=== PATIENT | female | born 1940 | race Caucasian/White ===

== ENCOUNTER → 2016-11-29 | Outpatient (CLI) | payer MEDICARE ==
[~2016-11-29] MED LIST: ACET-461 PO; ALBU8.5H2 INH; ASP325TEC PO; FLUC200T PO; FLUT1DIS28 IH; HYDR118S10 PO; IBUP-30 PO; LEVO150T6 PO; LEVO200T30 PO; LISI1TAB10 PO; LORA1TAB PO; LRZ1T PO; MELO-198 PO; METR500T PO; MULT-856 PO; NAPR220C11 PO; NAPR220T76 PO; PRAV80TA2 PO; RT-ALBUINH IH; TRAM50TA2 PO; Tramadol Hcl PO
--- NOTE | 2016-11-29 16:17 | Diagnostic Imaging Report ---
INDICATION: Cough, wheezing, and dyspnea. DISCUSSION: Two views of the chest were obtained, comparison 07/13/2014. No adverse interval change. The heart and lungs remain normal. Age-related degenerative changes are present throughout the thoracic spine. IMPRESSION: 1. Negative chest. Dictated by: Dictated on workstation # [id number]
== END ==
LOC: RAD 15:30
PROVIDERS: ATTEND Nurse Practitioner Family
DX: R05 Cough (principal); R06.09 Other forms of dyspnea
CPT/HCPCS: 71020

== ENCOUNTER → 2017-05-10 | Outpatient (CLI) | payer MEDICARE, OTHER ==
--- NOTE | 2017-05-10 14:35 | Diagnostic Imaging Report ---
INDICATION: Right leg edema. Right leg venous Doppler study was performed in the routine fashion with color flow Doppler and waveform analysis. FINDINGS: The right common femoral vein, superficial femoral vein, popliteal vein and visualized portion of the tibial veins show normal compressibility and venous flow patterns. There is normal augmentation. IMPRESSION: No evidence of deep vein thrombosis of the major veins of the right leg. Dictated by: Dictated on workstation # [id number]
== END ==
LOC: RAD 13:38
PROVIDERS: ATTEND Nurse Practitioner Family
DX: R22.41 Localized swelling, mass and lump, right lower limb (principal)

== ENCOUNTER → 2017-12-26 | Outpatient (CLI) | payer MEDICARE, OTHER ==
--- NOTE | 2017-12-26 12:56 | Diagnostic Imaging Report ---
INDICATION: Routine screening. COMPARISON: 04/13/2016 and 02/19/2014. TECHNIQUE: Screening digital mammography was performed bilaterally with a Computer Aided Detection (CAD) system. FINDINGS: Scattered fibroglandular densities are identified bilaterally. Vascular and parenchymal calcifications are seen bilaterally. No dominant mass or malignant appearing microcalcifications are seen. The axillae are unremarkable. IMPRESSION: No mammographic features suspicious for malignancy are identified. ACR BI-RADS Category 2: Benign findings. Result letter will be mailed to the patient. Note: At least 10% of breast cancer is not imaged by mammography. Dictated by: Dictated on workstation # [id number]
== END ==
LOC: RAD 10:17
PROVIDERS: ATTEND Nurse Practitioner Family
DX: Z12.31 Encounter for screening mammogram for malignant neoplasm of breast (principal)
CPT/HCPCS: 77067

== ENCOUNTER 2018-12-13 12:44 | Outpatient (RCR) | payer MEDICARE, OTHER | END 2019-01-11 13:24 | disposition home or self-care (01) | PROVIDERS: ATTEND Nurse Practitioner Family | DX: M54.5 Low back pain (principal) ==

== ENCOUNTER 2020-02-18 05:24 | Observation (INO) | payer MEDICARE ==
[~2020-02-18] VITALS: Ht 167.7 cm; Wt 95.7 kg
[2020-02-18] MEDS ORDERED: ONDANSETRON 4 MG/2 ML (SDV) Z0FRAN IVP ONE (05:45)
[2020-02-18] MEDS ORDERED: ASPIRIN 81 MG CHEW (CHILDREN'S ASA) PO ONE (05:45)
--- NOTE | 2020-02-18 05:53 | ED Back Pain ---
General Chief Complaint: Abdominal/GI Problems Stated Complaint: NAUSEA Source of Information: Patient Exam Limitations: No Limitations (DANIELLE CRABTREE) History of Present Illness Date Seen by Provider: Feb 18, 2020 Time Seen by Provider: 05:37 Initial Comments The patient presents to the ER by private conveyance from home with chief complaint that she woke up at 2 in the morning with nausea. She took a tramadol for her pain in her back which made it better. She says she has a appointment today with a surgeon to have an abscess cut out on her back. She states that it is on her right middle back and that's what caused her pain. She does not have anything for nausea. She denies any fevers chills cough or shortness of breath. She follows with Dr. Finn. She was asking the door publishing director staff if she can drop off her medicines and have them refilled and she would come by later to pick him up. She does not remember the name of the surgeon only that she had an appointment at 1 in the afternoon here. She is afraid she would not make it to that appointment because of the nausea. (DANIELLE CRABTREE) Allergies and Home Medications Allergies Coded Allergies: No Known Drug Allergies (Unverified , 04/26/11) Home Medications Acetaminophen 500 Mg Tablet, 1,000 MG PO BID PRN for PAIN, (Reported) TAKES 2 (500MG) TABLETS Albuterol Sulfate 8.5 Gm Aer.w.adap, 2 PUFF INH Q6H PRN for SHORTNESS OF BREATH, (Reported) Ibuprofen 200 Mg Tablet, 800 MG PO BID PRN for PAIN, (Reported) TAKES 4 (200MG) TABLETS Levothyroxine Sodium 150 Mcg Tablet, 200 MCG PO DAILY Prescribed by: EKATERINA REIS on 07/16/14 0851 Lorazepam 1 Mg Tab, 1 MG PO DAILY PRN for ANXIETY, (Reported) Lorazepam 1 Mg Tab, 2 MG PO HS, (Reported) TAKES 2 (1MG) TABLETS AT BEDTIME Tramadol Hcl 50 Mg Tab, 50 MG PO Q4H PRN for PAIN, (Reported) [Tramadol Hcl] 50 MG TAB, 50 MG PO Q4HR PRN for PAIN Prescribed by: JOEL MOORE on 07/16/14 1025 Patient Home Medication List Home Medication List Reviewed: Yes (DANIELLE CRABTREE) Review of Systems Constitutional: No chills, No diaphoresis EENTM: No ear discharge, No hearing loss Respiratory: No cough, No short of breath Cardiovascular: No edema, No Hx of Intervention, No palpitations Gastrointestinal: No abdominal pain, No constipation, No diarrhea; nausea, vomiting Genitourinary: No discharge, No dysuria Skin: see HPI (DANIELLE CRABTREE) All Other Systems Reviewed Negative Unless Noted: Yes (DANIELLE CRABTREE) Past Ksnkapd-Bvphyn-Fjhwrl Hx Patient Social History Alcohol Use: Denies Use Recreational Drug Use: No Smoking Status: Never a Smoker Recent Foreign Travel: No Contact w/Someone Who Travel: No (DANIELLE CRABTREE) Immunizations Up To Date Date of Pneumonia Vaccine: Sep 11, 2006 (DANIELLE CRABTREE) Seasonal Allergies Seasonal Allergies: No (DANIELLE CRABTREE) Past Medical History Asthma Hypertension Chronic Constipation Degenerate Disk Disease Anxiety (DANIELLE CRABTREE) Family Medical History Alcoholism 19 FATHER 19 MOTHER Asthma 19 FATHER Cancer of mouth 19 FATHER (CANCER OF THE LAYARANX) Cardiovascular disease 19 MOTHER (AORTIC VALVE REPLACED) Cataracts 19 MOTHER (MACULAR DEGENERATION) Colon cancer 19 FATHER 19 MOTHER Dementia 19 MOTHER Physical Exam Vital Signs Vital Signs - First Documented 02/18/20 05:35 Temp 37.3 Pulse 78 Resp 20 B/P (MAP) 199/80 (119) Pulse Ox 97 O2 Delivery Room Air (LEANDRO JEFFREY MD) Vital Signs Capillary Refill : (DANIELLE CRABTREE) Height, Weight, BMI Height: 5'6.00" Weight: 208lbs. 5.0oz. [id number]; BMI Method:Stated General Appearance: No Apparent Distress, WD/WN HEENT: PERRL/EOMI, Pharynx Normal, Moist Mucous Membranes Neck: Normal Inspection, Non Tender Cardiovascular: Regular Rate, Rhythm, Normal Peripheral Pulses Respiratory: Chest Non Tender, Lungs Clear, Normal Breath Sounds, No Accessory Muscle Use, No Respiratory Distress Gastrointestinal: Non Tender, Soft Back: Other (she has a mildly tender to palpation, flat, mildly erythematous well-healed scars over lesion which looks like it used to be an abscess in the middle of her back approximately 3 cm diameter. There is no induration or fluctuance palpable.) Extremity: Normal Capillary Refill, Normal Inspection Neurologic/Psychiatric: Alert (oriented to person and time and place), No Motor/Sensory Deficits Skin: Normal Color, Warm/Dry (DANIELLE CRABTREE) Progress/Results/Core Measures Results/Orders Lab Results Laboratory Tests Test 02/18/20 05:46 02/18/20 06:45 Range/Units White Blood Count 7.6 4.3-11.0 10^3/uL Red Blood Count 4.37 4.35-5.85 10^6/uL Hemoglobin 13.4 11.5-16.0 G/DL Hematocrit 39 35-52 % Mean Corpuscular Volume 90 80-99 FL Mean Corpuscular Hemoglobin 31 25-34 PG Mean Corpuscular Hemoglobin Concent 34 32-36 G/DL Red Cell Distribution Width 13.4 10.0-14.5 % Platelet Count 229 130-400 10^3/uL Mean Platelet Volume 11.5 H 7.4-10.4 FL Neutrophils (%) (Auto) 83 H 42-75 % Lymphocytes (%) (Auto) 11 L 12-44 % Monocytes (%) (Auto) 5 0-12 % Eosinophils (%) (Auto) 0 0-10 % Basophils (%) (Auto) 0 0-10 % Neutrophils # (Auto) 6.3 1.8-7.8 X 10^3 Lymphocytes # (Auto) 0.8 L 1.0-4.0 X 10^3 Monocytes # (Auto) 0.4 0.0-1.0 X 10^3 Eosinophils # (Auto) 0.0 0.0-0.3 10^3/uL Basophils # (Auto) 0.0 0.0-0.1 10^3/uL Sodium Level 142 135-145 MMOL/L Potassium Level 3.5 L 3.6-5.0 MMOL/L Chloride Level 104 98-107 MMOL/L Carbon Dioxide Level 25 21-32 MMOL/L Anion Gap 13 5-14 MMOL/L Blood Urea Nitrogen 11 7-18 MG/DL Creatinine 0.86 0.60-1.30 MG/DL Estimat Glomerular Filtration Rate > 60 BUN/Creatinine Ratio 13 Glucose Level 141 H 70-105 MG/DL Calcium Level 9.7 8.5-10.1 MG/DL Corrected Calcium 9.3 8.5-10.1 MG/DL Total Bilirubin 0.6 0.1-1.0 MG/DL Aspartate Amino Transf (AST/SGOT) 16 5-34 U/L Alanine Aminotransferase (ALT/SGPT) 18 0-55 U/L Alkaline Phosphatase 88 40-136 U/L Troponin I < 0.028 <0.028 NG/ML Total Protein 7.3 6.4-8.2 GM/DL Albumin 4.5 3.2-4.5 GM/DL Thyroid Stimulating Hormone (TSH) 0.81 0.35-4.94 UIU/ML Free Thyroxine 1.09 0.70-1.48 NG/DL Serum Alcohol < 10 <10 MG/DL Urine Color YELLOW Urine Clarity CLEAR Urine pH 5.5 5-9 Urine Specific V[place]ar 1.025 H 1.016-1.022 Urine Protein NEGATIVE NEGATIVE Urine Glucose (UA) NEGATIVE NEGATIVE Urine Ketones NEGATIVE NEGATIVE Urine Nitrite NEGATIVE NEGATIVE Urine Bilirubin NEGATIVE NEGATIVE Urine Urobilinogen 0.2 < = 1.0 MG/DL Urine Leukocyte Esterase TRACE H NEGATIVE Urine RBC (Auto) NEGATIVE NEGATIVE Urine RBC NONE /HPF Urine WBC 2-5 /HPF Urine Squamous Epithelial Cells 10-25 H /HPF Urine Crystals NONE /LPF Urine Bacteria TRACE /HPF Urine Casts NONE /LPF Urine Mucus NEGATIVE /LPF Urine Culture Indicated NO Urine Opiates Screen NEGATIVE NEGATIVE Urine Oxycodone Screen NEGATIVE NEGATIVE Urine Methadone Screen NEGATIVE NEGATIVE Urine Propoxyphene Screen NEGATIVE NEGATIVE Urine Barbiturates Screen NEGATIVE NEGATIVE Ur Tricyclic Antidepressants Screen NEGATIVE NEGATIVE Urine Phencyclidine Screen NEGATIVE NEGATIVE Urine Amphetamines Screen NEGATIVE NEGATIVE Urine Methamphetamines Screen NEGATIVE NEGATIVE Urine Benzodiazepines Screen POSITIVE H NEGATIVE Urine Cocaine Screen NEGATIVE NEGATIVE Urine Cannabinoids Screen NEGATIVE NEGATIVE (LEANDRO JEFFREY MD) My Orders Orders - LEANDRO JEFFREY MD Ct Head Wo-R/O Stroke (02/18/20 06:45) Amlodipine Tablet (Norvasc Tablet) (02/18/20 08:15) (LEANDRO JEFFREY MD) Medications Given in ED Current Medications Medications Dose Ordered Sig/Kulwant Route Start Time Stop Time Status Last Admin Dose Admin Aspirin 324 mg ONCE ONCE PO 02/18/20 05:45 02/18/20 05:47 DC 02/18/20 05:56 324 MG Ondansetron HCl 4 mg ONCE ONCE IVP 02/18/20 05:45 02/18/20 05:47 DC 02/18/20 05:55 4 MG (LEANDRO JEFFREY MD) Vital Signs/I&O 02/18/20 05:35 Temp 37.3 Pulse 78 Resp 20 B/P (MAP) 199/80 (119) Pulse Ox 97 O2 Delivery Room Air (LEANDRO JEFFREY MD) Progress Progress Note : Time: 05:51 Progress Note Ondansetron for her nausea. She doesn't appear to have an abscess needing drained. It looks like it's already been drained whether intentionally or s pontaneously. Just to be sure she is not having some confusion or possible atypical anginal symptoms we will get an EKG and check some labs. If she is having nausea related to infection it would be good to check a white count. If she can give us urinalysis we'll check that as well. Her pharmacy report shows lorazepam, tramadol, albuterol, ibuprofen and acetaminophen. She also takes Synthroid. Perhaps she is having a little delirium related to pain medicines? Because her sister thought she was acting loopy and taking too many medications. She was using lorazepam at that time. At that time they felt that her hypothyroidism was more likely source of her symptoms. Patient is not sedate. Check TSH, Free T4. Drug screen and alcohol level. (DANIELLE CRABTREE) Progress Note #1: Time: 06:29 Progress Note Care of this patient was assumed from Dr. Crabtree at 06:00. Verbal report received and documentation reviewed. Patient was seen and examined. Heart was regular rate and rhythm without murmur. Lungs were clear to auscultation bilaterally. She is found to be alert and conversational. She is under the impression she has surgery with Dr. Cisneros for the lesion on her back at 13:30 today. 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 She reports feeling "amazing" after receiving Zofran. Her nausea has resolved. She reports vomiting this morning and she was concerned that surgery could not occur because of the vomiting. After pending labs are reviewed, I will contact Dr. Finn and possibly patient's family to discuss her situation further. She still remains significantly hypertensive. She states she does not take blood pressure medications. Progress Note #2: Time: 08:12 Progress Note Workup was relatively unremarkable. Patient's hypertension has gradually improved. Her most recent blood pressure was 154/68. Case was discussed with Dr. Finn. She would like her admitted for observation to ensure she is safe to return home and her hypertension does not become a persistent problem. Patient feels relatively well right now. I have been updating patient's sister as well. Patient does admit that she has been confused this morning. (LEANDRO JEFFREY MD) Initial ECG Impression Date: Feb 18, 2020 Initial ECG Impression Time: 05:43 Initial ECG Rate: 74 Initial ECG Rhythm: Normal Sinus Initial ECG Intervals: Normal Initial ECG Impression: Normal Comment Normal sinus rhythm without clinically relevant ST changes. (DANIELLE CRABTREE) Diagnostic Imaging Diagonstic Imaging: CT Plain Films/CT/US/NM/MRI: head Comments CT head viewed by me and report reviewed. See report below: NAME: JENIFER BOLAND [facility] REC#: [id number] PT STATUS: REG ER : 1940 PHYSICIAN: LEANDRO EJFFREY MD ADMIT DATE: 02/18/20/ER Draft Date of Exam:02/18/20 CT HEAD WO-R/O STROKE PROCEDURE: CT head wo r/o stroke. TECHNIQUE: Multiple contiguous axial images were obtained through the brain without the use of intravenous contrast. Auto Exposure Controls were utilized during the CT exam to meet ALARA standards for radiation dose reduction. INDICATION: Nausea. Confusion. COMPARISON: CT head without contrast 07/13/2014. FINDINGS: No intracranial hemorrhage, mass effect, hydrocephalus or extra-axial fluid collections. Moderate generalized cerebral and cerebellar parenchymal volume loss. Moderate leukoaraiosis. No CT evidence of an acute territorial infarction. Osseous structures are intact. The paranasal sinuses and mastoids are unremarkable. IMPRESSION: No acute intracranial CT findings. Dictated on workstation # [id number] Dict: 02/18/20 0722 Trans: 02/18/20 0737 [facility] [id number] Interpreted by: DARREN PETERSON MD (LEANDRO JEFFREY MD) Transfer of Care Time: 06:00 Care transferred to: Dr. Garces (DANIELLE CRABTREE) Departure Communication (Admissions) Time/Spoke to Admitting Phy: 07:45 Dr. Finn (LEANDRO JEFFREY MD) Impression Primary Impression: Hypertensive urgency Additional Impressions: Confusion Nausea and vomiting Qualified Codes: R11.2 - Nausea with vomiting, unspecified Disposition: ADMITTED INPATIENT Condition: Improved Admissions Decision to Admit Reason: Admit from ER (General) Decision to Admit/Date: Feb 18, 2020 Time/Decision to Admit Time: 07:45 (LEANDRO JEFFREY MD) Departure-Patient Inst. Referrals: KEVEN FINN MD (PCP/Family) Primary Care Physician DANIELLE CRABTREE Feb 18, 2020 05:52 LEANDRO JEFFREY MD Feb 18, 2020 06:33
[2020-02-18 06:03] LABS: BASOPHILS % (AUTO) 0 % (0-10); EOSINOPHILS % (AUTO) 0 % (0-10); HEMATOCRIT 39 % (35-52); HEMOGLOBIN 13.4 G/DL (11.5-16.0); LYMPHOCYTES # (AUTO) 0.8 X 10^3 (1.0-4.0); LYMPHOCYTES % (AUTO) 11 % (12-44); MEAN CORPUSCULAR HEMOGLOBIN 31 PG (25-34); MEAN CORPUSCULAR HGB CONC 34 G/DL (32-36); MEAN CORPUSCULAR VOLUME 90 FL (80-99); MEAN PLATELET VOLUME 11.5 FL (7.4-10.4); MONOCYTES # (AUTO) 0.4 X 10^3 (0.0-1.0); MONOCYTES % (AUTO) 5 % (0-12); NEUTROPHILS # (AUTO) 6.3 X 10^3 (1.8-7.8); NEUTROPHILS % (AUTO) 83 % (42-75); PLATELET COUNT 229 10^3/uL (130-400); RED CELL DISTRIBUTION WIDTH 13.4 % (10.0-14.5); WHITE BLOOD COUNT 7.6 10^3/uL (4.3-11.0)
[2020-02-18 06:20] LABS: ALBUMIN 4.5 GM/DL (3.2-4.5)
[2020-02-18 06:21] LABS: CHLORIDE 104 MMOL/L (98-107); POTASSIUM 3.5 MMOL/L (3.6-5.0); SODIUM 142 MMOL/L (135-145)
[2020-02-18 06:22] LABS: CALCIUM 9.7 MG/DL (8.5-10.1)
[2020-02-18 06:23] LABS: GLUCOSE 141 MG/DL (70-105); TOTAL PROTEIN 7.3 GM/DL (6.4-8.2)
[2020-02-18 06:24] LABS: CARBON DIOXIDE 25 MMOL/L (21-32)
[2020-02-18 06:25] LABS: BILIRUBIN,TOTAL 0.6 MG/DL (0.1-1.0)
[2020-02-18 06:26] LABS: ALKALINE PHOSPHATASE 88 U/L (40-136); CREATININE SERUM 0.86 MG/DL (0.60-1.30); GFR ESTIMATED > 60
[2020-02-18 06:28] LABS: BUN/CREATININE RATIO 13
[2020-02-18 06:29] LABS: ALANINE AMINOTRANSFERASE 18 U/L (0-55)
[2020-02-18 06:51] LABS: BILIRUBIN,URINE NEGATIVE (NEGATIVE); CLARITY,URINE CLEAR; COLOR,URINE YELLOW; GLUCOSE, URINE (UA) NEGATIVE (NEGATIVE); KETONES,URINE NEGATIVE (NEGATIVE); LEUKOCYTE ESTERASE ,URINE TRACE (NEGATIVE); NITRITE,URINE NEGATIVE (NEGATIVE); PH,URINE 5.5 (5-9); PROTEIN,URINE NEGATIVE (NEGATIVE)
[2020-02-18 06:51] LABS: FREE T4 (FREE THYROXINE) 1.09 NG/DL (0.70-1.48)
[2020-02-18 07:00] LABS: BACTERIA,URINE TRACE /HPF
[2020-02-18 07:07] LABS: AMPHETAMINE SCREEN, URINE NEGATIVE (NEGATIVE); BARBITURATE SCREEN URINE NEGATIVE (NEGATIVE); BENZODIAZEPINES SCREEN URINE POSITIVE (NEGATIVE); CANNABINOID SCREEN, URINE NEGATIVE (NEGATIVE); COCAINE SCREEN URINE NEGATIVE (NEGATIVE); METHADONE STAT NEGATIVE (NEGATIVE); METHAMPHETAMINE SCREEN URINE S NEGATIVE (NEGATIVE); OPIATE SCREEN URINE NEGATIVE (NEGATIVE); OXYCODONE STAT NEGATIVE (NEGATIVE); PROPOXYPHENE STAT NEGATIVE (NEGATIVE); TRICYCLIC ANTIDEPRESSANTS SCRE NEGATIVE (NEGATIVE)
--- NOTE | 2020-02-18 07:16 | NUR ---
RETURN FROM CT.
--- NOTE | 2020-02-18 07:37 | NUR ---
TO ROOM SITTING UP IN BED NO NEW C/O
--- NOTE | 2020-02-18 07:38 | Diagnostic Imaging Report ---
PROCEDURE: CT head wo r/o stroke. TECHNIQUE: Multiple contiguous axial images were obtained through the brain without the use of intravenous contrast. Auto Exposure Controls were utilized during the CT exam to meet ALARA standards for radiation dose reduction. INDICATION: Nausea. Confusion. COMPARISON: CT head without contrast 07/13/2014. FINDINGS: No intracranial hemorrhage, mass effect, hydrocephalus or extra-axial fluid collections. Moderate generalized cerebral and cerebellar parenchymal volume loss. Moderate leukoaraiosis. No CT evidence of an acute territorial infarction. Osseous structures are intact. The paranasal sinuses and mastoids are unremarkable. IMPRESSION: No acute intracranial CT findings. Dictated by: Dictated on workstation # [id number]
[2020-02-18] MEDS ORDERED: amLODIPine 5 MG (NORVASC) TAB PO ONE ×2 (08:15→08:45)
--- NOTE | 2020-02-18 08:30 | NUR ---
DR GOMEZ HERE TO SEE PATIENT.
--- NOTE | 2020-02-18 08:38 | NUR ---
DR GOMEZ WANTS PATIENT TO HAVE NORVAC
--- NOTE | 2020-02-18 08:55 | History & Physical ---
History of Present Illness History of Present Illness Reason for visit/HPI PT IS A 79 Y/O FEMALE WHO IS KNOWN TO ME FROM CLINIC. SHE PRESENTED TO THE EMERGENCY DEPARTMENT WITH CONFUSION - SHE BROUGHT HER MEDICATIONS INTO THE ER STATING THAT THEY NEED TO LET HER KNOW WHEN THE REFILLS ARE READY FOR HER TO PICK-UP. SHE REPORTS TO ME NOW THAT SHE DOES NOT REMEMBER THE EPISODE THAT HAPPENED IN THE ER EARLY THIS MORNING. SHE STATES THAT SHE FEELS LIKE SHE IS ABLE TO CARE FOR HERSELF AT HOME WITHOUT ISSUE. HOWEVER THE PATIENT'S SISTER REPORTS PROGRESSIVE CONFUSION. Date of Admission Feb 18, 2020 at 08:35 Date Seen by a Provider: Feb 18, 2020 Time Seen by a Provider: 08:30 Attending Physician Keven Finn MD Admitting Physician Keven Finn MD Consult DR. ALEXANDRE Allergies and Home Medications Allergies Coded Allergies: No Known Drug Allergies (Unverified , 04/26/11) Home Medications Acetaminophen 500 Mg Tablet, 1,000 MG PO BID PRN for PAIN, (Reported) TAKES 2 (500MG) TABLETS Albuterol Sulfate 8.5 Gm Aer.w.adap, 2 PUFF INH Q6H PRN for SHORTNESS OF BREATH, (Reported) Ibuprofen 200 Mg Tablet, 800 MG PO BID PRN for PAIN, (Reported) TAKES 4 (200MG) TABLETS Levothyroxine Sodium 150 Mcg Tablet, 200 MCG PO DAILY Prescribed by: EKATERINA REIS on 07/16/14 0851 Lorazepam 1 Mg Tab, 1 MG PO DAILY PRN for ANXIETY, (Reported) Lorazepam 1 Mg Tab, 2 MG PO HS, (Reported) TAKES 2 (1MG) TABLETS AT BEDTIME Tramadol Hcl 50 Mg Tab, 50 MG PO Q4H PRN for PAIN, (Reported) [Tramadol Hcl] 50 MG TAB, 50 MG PO Q4HR PRN for PAIN Prescribed by: JOEL MOORE on 07/16/14 1025 Patient Home Medication List Home Medication List Reviewed: Yes Past Ekjpgio-Tgxvah-Hzeqlc Hx Past Med/Social Hx: Reviewed and Corrections made Patient Social History Marrital Status: Living Status: LIVES IN HOME ALONE Employed/Student: retired Alcohol Use: Rarely Uses Recreational Drug Use: No Smoking Status: Never a Smoker 2nd Hand Smoke Exposure: No Physical Abuse Screen: No Sexual Abuse: No Recent Foreign Travel: No Contact w/other who traveled: No Recent Hopitalizations: No Recent Infectious Disease Expo: No Immunizations Up To Date Date of Pneumonia Vaccine: Sep 11, 2006 Seasonal Allergies Seasonal Allergies: No Past Medical History Currently Using BIPAP: No : No 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: No Sexually Transmitted Disease: No HIV/AIDS: No Female 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 Disorders: Denies Gastrointestinal: Chronic Constipation Musculoskeletal: Degenerate Disk Disease Psychosocial: Anxiety History of Blood Disorders: No Family History Reviewed Nursing Family Hx Alcoholism 19 FATHER 19 MOTHER Asthma 19 FATHER Cancer of mouth 19 FATHER (CANCER OF THE LAYARANX) Cardiovascular disease 19 MOTHER (AORTIC VALVE REPLACED) Cataracts 19 MOTHER (MACULAR DEGENERATION) Colon cancer 19 FATHER 19 MOTHER Dementia 19 MOTHER Heart Disease, Cancer, Other Conditions/Hx (DEMENTIA) Review of Systems Constitutional: No chills, No fever, No malaise, No weakness EENTM: No hoarseness, No throat pain Respiratory: No cough, No dyspnea on exertion, No short of breath Cardiovascular: No chest pain, No palpitations Gastrointestinal: No abdominal pain; nausea Genitourinary: no symptoms reported Musculoskeletal: no symptoms reported; No muscle weakness Skin: other (HEALED INFECTED CYST SITE ON RIGHT FLANK) Psychiatric/Neurological: Anxiety; Denies Depressed; Other (CHRONIC INSOMNIA) All Other Systems Reviewed Negative Unless Noted: Yes Physical Exam Vital Signs Vital Signs - First Documented 02/18/20 05:35 Temp 37.3 Pulse 78 Resp 20 B/P (MAP) 199/80 (119) Pulse Ox 97 O2 Delivery Room Air Capillary Refill : Less Than 3 Seconds Height, Weight, BMI Height: 5'6.00" Weight: 208lbs. 5.0oz. 94.525366nl; 37.00 BMI Method:Stated General Appearance: No Apparent Distress, WD/WN Eyes: Bilateral Eye Normal Inspection, Bilateral Eye PERRL, Bilateral Eye EOMI HEENT: PERRL/EOMI, Pharynx Normal Neck: Full Range of Motion, Normal Inspection, Non Tender, Supple Respiratory: Chest Non Tender, Lungs Clear, Normal Breath Sounds, No Accessory Muscle Use, No Respiratory Distress Cardiovascular: Regular Rate, Rhythm, Normal Peripheral Pulses Gastrointestinal: Normal Bowel Sounds, No Organomegaly, No Pulsatile Mass, Non Tender, Soft Rectal: Deferred Back: Normal Inspection, No CVA Tenderness, No Vertebral Tenderness Extremity: Normal Capillary Refill, Normal Range of Motion, Non Tender, No Calf Tenderness, No Pedal Edema Neurologic/Psychiatric: Alert, No Motor/Sensory Deficits, Normal Mood/Affect, 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 ALEXANDRE, CHECK CAROTIDS, ECHO AND MONITOR PRESSURE ON BETA VALERIANO THERAPY. - MAY NEED STRESS TESTING OUTPATIENT - DEFER TO DR. ALEXANDRE'S RECOMMENDATIONS CHRONIC HYPOTHYROIDISM - RESUME HOME MEDICATION TOMORROW ONCE MEDS ARE VERIFIED - THYROID TESTING IN ER NORMAL CONFUSION, INSOMNIA, CHRONIC BENZODIAZEPINE USE - CONFUSION HAS IMPROVED, WILL SEE HOW PATIENT IS TOMORROW AFTER DECREASE IN DOSE OF ATIVAN - WE WILL WEAN PT DOWN AND THEN OFF OF THIS MEDICATION OUTPATIENT. - WILL GIVE 1/2 USUAL DOSE TONIGHT AND USE OTC MELATONIN FOR AUGMENTATION OF SLEEP TONIGHT. Admission Diagnosis HYPERTENSIVE URGENCY NEW ONSET HYPERTENSION CHRONIC HYPOTHYROIDISM CONFUSION INSOMNIA CHRONIC BENZODIAZEPINE USE Admission Status: Observation KEVEN FINN MD Feb 18, 2020 08:55
--- NOTE | 2020-02-18 09:15 | NUR ---
JENIFER BOLAND Roberto admitted to room 422-1, with an admitting diagnosis of hypertensive crisis, confusion and nausea, on 02/18/20 from [place] ED via wheelchair, accompanied by staff. JENIFER BOLAND introduced to surroundings, call light, bed controls, phone, TV, temperature control, lights, meal times, smoking policy, visitor policy, side rail policy, bathrooms and showers. Patient Rights given to patient in the handbook. JENIFER BOLAND verbalizes understanding that [facility] is not responsible for the loss or damage to any personal effects or valuables that are kept in the patients possession during their hospitalization. The following Patient Care Plans were discussed with the patient: Discharge Planning, dehydration, medications, and pain management. JENIFER BOLAND verbalizes understanding of Interdisciplinary Patient Education. Patient and/or family were informed about the Rapid Response Team and its purpose.
[2020-02-18 09:29] VITALS: BP 146/67
[2020-02-18] MEDS ORDERED: ONDANSETRON 4 MG/2 ML (SDV) Z0FRAN IV PRN (09:30)
[2020-02-18] MEDS ORDERED: CATHETER FLUSH 10 ML SYR IV PRN (09:30)
[2020-02-18] MEDS ORDERED: TRAM50TA3 PO (10:11)
[2020-02-18] MEDS ORDERED: FLUT1BLS12 PO (10:11)
[2020-02-18] MEDS ORDERED: LORA-405 PO (10:11)
[2020-02-18] MEDS ORDERED: LEVO112T55 PO (10:11)
[2020-02-18] MEDS ORDERED: ONDA4TAB11 PO (10:11)
[2020-02-18] MEDS ORDERED: ACET-2267 PO (10:13)
--- NOTE | 2020-02-18 10:15 | NUR ---
SPOKE WITH THE PT AND WENT THRU THE EXT MED HISTORY TO COMPLETE THE MED REC PT WAS ABLE TO TELL ME HOW/WHEN SHE TAKES EACH MEDICATIONS- ALL HER INFORMATION MATCHED THE EXT MED HISTORY OTC MEDS; TYLENOL
[2020-02-18 11:00] VITALS: BP 149/65
--- NOTE | 2020-02-18 11:31 | Consultation-Cardiology ---
HPI-Cardiology Cardiology Consultation Date of Consultation 02/18/20 Date of Admission Time Seen by Provider: 08:30 HPI Duplicate documented Home Medications & Allergies Allergies: Coded Allergies: No Known Drug Allergies (Unverified , 04/26/11) [id number] Hx Patient Social History Marital Status: Living Status: LIVES IN HOME ALONE Employed/Student: retired Alcohol Use: Rarely Uses Recreational Drug Use: No Smoking Status: Never a Smoker 2nd Hand Smoke Exposure: No Recent Foreign Travel: No Recent Infectious Disease Expo: No Recent Hopitalizations: No Physical Abuse Screen: No Sexual Abuse: No Immunizations Up To Date Date of Pneumonia Vaccine: Sep 11, 2006 Family Medical History Significant Family History: Heart Disease, Cancer, Other Conditions/Hx (DEMENTIA) Family History: Alcoholism 19 FATHER 19 MOTHER Asthma 19 FATHER Cancer of mouth 19 FATHER (CANCER OF THE LAYARANX) Cardiovascular disease 19 MOTHER (AORTIC VALVE REPLACED) Cataracts 19 MOTHER (MACULAR DEGENERATION) Colon cancer 19 FATHER 19 MOTHER Dementia 19 MOTHER Review of Systems-General Review of Systems Constitutional: No chills, No fever, No malaise, No weakness EENTM: No hoarseness, No throat pain Respiratory: No cough, No dyspnea on exertion, No short of breath Cardiovascular: No chest pain, No palpitations Gastrointestinal: No abdominal pain; nausea Genitourinary: no symptoms reported Musculoskeletal: no symptoms reported; No muscle weakness Skin: other (HEALED INFECTED CYST SITE ON RIGHT FLANK) Psychiatric/Neurological: Anxiety; Denies Depressed; Other (CHRONIC INSOMNIA) All Other Systems Reviewed Negative Unless Noted: Yes Physical Exam Physical Exam Vital Signs Vital Signs - First Documented 02/18/20 05:35 Temp 37.3 Pulse 78 Resp 20 B/P (MAP) 199/80 (119) Pulse Ox 97 O2 Delivery Room Air Capillary Refill : Less Than 3 Seconds Height, Weight, BMI Height: 5'6.00" Weight: 208lbs. 5.0oz. [id number]; 34.02 BMI Method:Stated General Appearance: No Apparent Distress, WD/WN Eyes: Bilateral Eye Normal Inspection, Bilateral Eye PERRL, Bilateral Eye EOMI HEENT: PERRL/EOMI, Pharynx Normal Neck: Full Range of Motion, Normal Inspection, Non Tender, Supple Respiratory: Chest Non Tender, Lungs Clear, Normal Breath Sounds, No Accessory Muscle Use, No Respiratory Distress Cardiovascular: Regular Rate, Rhythm, Normal Peripheral Pulses Gastrointestinal: Normal Bowel Sounds, No Organomegaly, No Pulsatile Mass, Non Tender, Soft Rectal: Deferred Back: Normal Inspection, No CVA Tenderness, No Vertebral Tenderness Extremity: Normal Capillary Refill, Normal Range of Motion, Non Tender, No Calf Tenderness, No Pedal Edema Neurologic/Psychiatric: Alert, No Motor/Sensory Deficits, Normal 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
--- NOTE | 2020-02-18 13:37 | NUR ---
"RD ASSESSMENT PMHx: chronic constipation; dementia PT INTERACTION: Pt was awake and pleasant during consult for MST score. Note pt has dementia and is a poor historian. Pt states current appetite is okay. Note visual assessment of lunch consumed is between 50-75%. Pt states following a regular diet at home, and has no issues with chewing/swallowing food. Pt states some recent issues with nausea, vomiting, constipation, and diarrhea. Pt states unsure of recent BM, but believes it was 2d ago. Note pt not currently on bowel regimen per chart review. Pt states recent wt loss, but unsure of amount/timeframe. Note recent 20# wt loss x1mon, per chart review. This is significant wt loss at 8% x1mon. Upon visual assessment, pt appears to be adequately nourished with no visible signs of muscle/fat wasting, and a BMI of 34.0. Though pt has significant wt loss, pt does not meet criteria for malnutrition per ASPEN guidelines at this time. Note during conversation, pt kept stating that she would need to find a new place to live because she lives alone. ABNORMAL NUTRITION-RELATED LAB VALUES LOW: K 3.5; HIGH: glu 141 Est. kcal needs: 8609-3632 kcal | 15-18 kcal/kg Est. Pro needs: 77-96 g Pro | 0.8-1.0 g Pro/kg PES STATEMENT: Inadequate oral intake (NI-2.1) related to loss of appetite | nausea | vomiting | constipation | diarrhea | AMS as evidenced by pt interview | PO intake 50-75% x1meal INTERVENTION: Continue with current diet order of 2000mg Na diet. Continue with current supplementation order of Ensure Enlive (vary) with meals TID, for increased kcal intake. Provides 350 kcal and 13 g Pro per serving. Encouraged pt to eat when able. Recommended to SW to speak with pt about living situation. Will continue to follow and reassess as pt needs, intake, and status change. MONITOR/EVALUATE: PO Intake; Plan of Care; Hydration Status; Weight Status; Lab Values Noah White, MS, RD, LD"
--- NOTE | 2020-02-18 14:35 | NUR ---
Pastoral care visit.
--- NOTE | 2020-02-18 14:59 | Diagnostic Imaging Report ---
PROCEDURE: US carotid duplex, bilateral. INDICATION: Hypertensive urgency, confusion TECHNIQUE: Multiple real-time grayscale images were obtained over the carotid arteries in various projections bilaterally. Additional spectral analysis and color Doppler and Duplex images were also obtained. FINDINGS: Color images demonstrate asymmetrically more prominent scattered plaque at the carotid bifurcations and proximal internal carotid arteries. Right Carotid System: Right Common Carotid Artery: Patent. There is no abnormally elevated velocity to suggest a hemodynamically significant stenosis. Right Internal Carotid Artery: Patent. Increased velocity in the right internal carotid artery 222 cm/s with an elevated ICA/CCA ratio of 2.22. Suggestion approximately 50-69% stenosis. Right External Carotid Artery: Patent. Left Carotid System: Left Common Carotid Artery: Patent. There is no abnormally elevated velocity to suggest a hemodynamically significant stenosis. Left Internal Carotid Artery: Patent. There is also increased velocity in the proximal left internal carotid artery at 187 cm/s with an IC CC ratio 1.87. Likely reflecting an approximately 50% stenosis. Left External Carotid Artery: Patent. Vertebral arteries: Patent and with antegrade direction of flow. DOPPLER (peak systolic velocity M/S Right Left CCA .69 .54 ICA Proximal 1.14 .69 ICA Mid 1.21 1.01 ICA Distal 1.53 .69 RATIO 2.22 1.87 ECA .95 .81 VERT .44 .41 IMPRESSION: 1. Prominent plaque at the carotid bifurcation as well as the internal carotid arteries. Findings would be suggestive of an approximately 50-69% stenosis right internal carotid artery and approximately 50% stenosis of the proximal left internal carotid artery. Parameters based on the consensus panel Tamayo-Scale and Doppler ultrasound criteria published July 2003, Radiology, Volume 229. Dictated by: Dictated on workstation # [id number]
[2020-02-18] MEDS: LOSARTAN 25 MG (COZAAR) TAB PO SCH (15:06)
[2020-02-18] MEDS: CATHETER FLUSH 10 ML SYR IV SCH ×2 (15:06→20:45)
[2020-02-18] MEDS: ENOXAPARIN 40 MG/0.4 ML (LOVENOX) SYR SQ SCH (15:06)
[2020-02-18 16:00] VITALS: BP 160/78
--- NOTE | 2020-02-18 17:25 | Consultation-Cardiology ---
HPI-Cardiology Cardiology Consultation Date of Consultation 02/18/20 Date of Admission Time Seen by Provider: 08:30 HPI 79-year-old lady with history of hypertension, came into the emergency room complaining of upper chest discomfort and abdominal discomfort, was confused. N oted to be severely hypertensive. On my evaluation she was feeling well. Denied any active pain. No palpitation. No syncope or near syncopal episodes. No claudications. Still confused Home Medications & Allergies Allergies: Coded Allergies: No Known Drug Allergies (Unverified , 04/26/11) Home Medication List Reviewed: Yes [id number] Hx Patient Social History Marital Status: , Living Status: LIVES IN HOME ALONE Employed/Student: retired Alcohol Use: Rarely Uses Recreational Drug Use: No Smoking Status: Never a Smoker 2nd Hand Smoke Exposure: No Recent Foreign Travel: No Recent Infectious Disease Expo: No Recent Hopitalizations: No Physical Abuse Screen: No Sexual Abuse: No Immunizations Up To Date Date of Pneumonia Vaccine: Sep 11, 2006 Past Medical History Discussed below Family Medical History Significant Family History: Heart Disease, Cancer, Other Conditions/Hx (DEMENTIA) Family History: Alcoholism 19 FATHER 19 MOTHER Asthma 19 FATHER Cancer of mouth 19 FATHER (CANCER OF THE LAYARANX) Cardiovascular disease 19 MOTHER (AORTIC VALVE REPLACED) Cataracts 19 MOTHER (MACULAR DEGENERATION) Colon cancer 19 FATHER 19 MOTHER Dementia 19 MOTHER Review of Systems-General Review of Systems Constitutional: No chills, No fever, No malaise, No weakness EENTM: No hoarseness, No throat pain Respiratory: see HPI; No cough, No dyspnea on exertion, No short of breath Cardiovascular: see HPI, chest pain; No edema, No Hx of Intervention, No palpitations, No syncope, No vascular heart diseas, No other Gastrointestinal: see HPI, abdominal pain, nausea Genitourinary: no symptoms reported Musculoskeletal: no symptoms reported; No muscle weakness Skin: see HPI, other (HEALED INFECTED CYST SITE ON RIGHT FLANK) Psychiatric/Neurological: See HPI, Anxiety; Denies Depressed; Other (CHRONIC INSOMNIA) All Other Systems Reviewed Negative Unless Noted: Yes Reviewed Test Results Reviewed Test Results Lab Laboratory Tests Test 02/18/20 05:46 02/18/20 06:45 Range/Units White Blood Count 7.6 4.3-11.0 10^3/uL Red Blood Count 4.37 4.35-5.85 10^6/uL Hemoglobin 13.4 11.5-16.0 G/DL Hematocrit 39 35-52 % Mean Corpuscular Volume 90 80-99 FL Mean Corpuscular Hemoglobin 31 25-34 PG Mean Corpuscular Hemoglobin Concent 34 32-36 G/DL Red Cell Distribution Width 13.4 10.0-14.5 % Platelet Count 229 130-400 10^3/uL Mean Platelet Volume 11.5 H 7.4-10.4 FL Neutrophils (%) (Auto) 83 H 42-75 % Lymphocytes (%) (Auto) 11 L 12-44 % Monocytes (%) (Auto) 5 0-12 % Eosinophils (%) (Auto) 0 0-10 % Basophils (%) (Auto) 0 0-10 % Neutrophils # (Auto) 6.3 1.8-7.8 X 10^3 Lymphocytes # (Auto) 0.8 L 1.0-4.0 X 10^3 Monocytes # (Auto) 0.4 0.0-1.0 X 10^3 Eosinophils # (Auto) 0.0 0.0-0.3 10^3/uL Basophils # (Auto) 0.0 0.0-0.1 10^3/uL Sodium Level 142 135-145 MMOL/L Potassium Level 3.5 L 3.6-5.0 MMOL/L Chloride Level 104 98-107 MMOL/L Carbon Dioxide Level 25 21-32 MMOL/L Anion Gap 13 5-14 MMOL/L Blood Urea Nitrogen 11 7-18 MG/DL Creatinine 0.86 0.60-1.30 MG/DL Estimat Glomerular Filtration Rate > 60 BUN/Creatinine Ratio 13 Glucose Level 141 H 70-105 MG/DL Calcium Level 9.7 8.5-10.1 MG/DL Corrected Calcium 9.3 8.5-10.1 MG/DL Total Bilirubin 0.6 0.1-1.0 MG/DL Aspartate Amino Transf (AST/SGOT) 16 5-34 U/L Alanine Aminotransferase (ALT/SGPT) 18 0-55 U/L Alkaline Phosphatase 88 40-136 U/L Troponin I < 0.028 <0.028 NG/ML Total Protein 7.3 6.4-8.2 GM/DL Albumin 4.5 3.2-4.5 GM/DL Thyroid Stimulating Hormone (TSH) 0.81 0.35-4.94 UIU/ML Free Thyroxine 1.09 0.70-1.48 NG/DL Serum Alcohol < 10 <10 MG/DL Urine Color YELLOW Urine Clarity CLEAR Urine pH 5.5 5-9 Urine Specific [place] 1.025 H 1.016-1.022 Urine Protein NEGATIVE NEGATIVE Urine Glucose (UA) NEGATIVE NEGATIVE Urine Ketones NEGATIVE NEGATIVE Urine Nitrite NEGATIVE NEGATIVE Urine Bilirubin NEGATIVE NEGATIVE Urine Urobilinogen 0.2 < = 1.0 MG/DL Urine Leukocyte Esterase TRACE H NEGATIVE Urine RBC (Auto) NEGATIVE NEGATIVE Urine RBC NONE /HPF Urine WBC 2-5 /HPF Urine Squamous Epithelial Cells 10-25 H /HPF Urine Crystals NONE /LPF Urine Bacteria TRACE /HPF Urine Casts NONE /LPF Urine Mucus NEGATIVE /LPF Urine Culture Indicated NO Urine Opiates Screen NEGATIVE NEGATIVE Urine Oxycodone Screen NEGATIVE NEGATIVE Urine Methadone Screen NEGATIVE NEGATIVE Urine Propoxyphene Screen NEGATIVE NEGATIVE Urine Barbiturates Screen NEGATIVE NEGATIVE Ur Tricyclic Antidepressants Screen NEGATIVE NEGATIVE Urine Phencyclidine Screen NEGATIVE NEGATIVE Urine Amphetamines Screen NEGATIVE NEGATIVE Urine Methamphetamines Screen NEGATIVE NEGATIVE Urine Benzodiazepines Screen POSITIVE H NEGATIVE Urine Cocaine Screen NEGATIVE NEGATIVE Urine Cannabinoids Screen NEGATIVE NEGATIVE Physical Exam Physical Exam Vital Signs Vital Signs - First Documented 02/18/20 05:35 Temp 37.3 Pulse 78 Resp 20 B/P (MAP) 199/80 (119) Pulse Ox 97 O2 Delivery Room Air Capillary Refill : Less Than 3 Seconds Height, Weight, BMI Height: 5'6.00" Weight: 208lbs. 5.0oz. 94.969444ja; 34.02 BMI Method:Stated General Appearance: No Apparent Distress, WD/WN Eyes: Bilateral Eye Normal Inspection, Bilateral Eye PERRL, Bilateral Eye EOMI HEENT: PERRL/EOMI, Pharynx Normal Neck: Full Range of Motion, Normal Inspection, Non Tender, Supple Respiratory: Chest Non Tender, Lungs Clear, Normal Breath Sounds, No Accessory Muscle Use, No Respiratory Distress Cardiovascular: Regular Rate, Rhythm, Normal Peripheral Pulses Gastrointestinal: Normal Bowel Sounds, No Organomegaly, No Pulsatile Mass, Non Tender, Soft Rectal: Deferred Back: Normal Inspection, No CVA Tenderness, No Vertebral Tenderness Extremity: Normal Capillary Refill, Normal Range of Motion, Non Tender, No Calf Tenderness, No Pedal Edema Neurologic/Psychiatric: Alert, No Motor/Sensory Deficits, Normal 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 Continue to monitor Hypothyroidism, managed by primary care physician Hypertensive heart disease, LVH on echocardiogram. No signs of heart failure. Continue to monitor Chest pain nonspecific in etiology, continue to monitor at this time. Conservative management Dementia, confusion. Clinical Quality Measures DVT/VTE Risk/Contraindication: Risk Factor Score Per Nursin RFS Level Per Nursing on Admit: 3=High KELLY ALEXANDRE MD Feb 18, 2020 5:25 pm
[2020-02-18 19:42] VITALS: BP 152/65
[2020-02-18] MEDS ORDERED: LORazepam 1 MG (ATIVAN) TAB PO ONE (21:00)
[2020-02-18] MEDS ORDERED: MELATONIN 10 MG TABLET PO SCH (21:00)
[2020-02-19 00:35] VITALS: BP 140/81
[2020-02-19 04:00] VITALS: BP 152/83
[2020-02-19] MEDS: CATHETER FLUSH 10 ML SYR IV SCH ×2 (05:38→14:27)
[2020-02-19 05:53] LABS: HEMOGLOBIN 12.1 G/DL (11.5-16.0); MEAN PLATELET VOLUME 11.7 FL (7.4-10.4); RED CELL DISTRIBUTION WIDTH 13.7 % (10.0-14.5); WHITE BLOOD COUNT 4.9 10^3/uL (4.3-11.0)
[2020-02-19 06:17] LABS: ALBUMIN 3.8 GM/DL (3.2-4.5); CHLORIDE 108 MMOL/L (98-107); POTASSIUM 3.8 MMOL/L (3.6-5.0); SODIUM 144 MMOL/L (135-145)
[2020-02-19 06:19] LABS: CALCIUM 8.9 MG/DL (8.5-10.1)
[2020-02-19 06:20] LABS: GLUCOSE 94 MG/DL (70-105)
[2020-02-19 06:21] LABS: CARBON DIOXIDE 25 MMOL/L (21-32)
[2020-02-19 06:22] LABS: BILIRUBIN,TOTAL 0.5 MG/DL (0.1-1.0)
[2020-02-19 06:23] LABS: ALKALINE PHOSPHATASE 78 U/L (40-136); CREATININE SERUM 0.87 MG/DL (0.60-1.30); GFR ESTIMATED > 60
[2020-02-19 06:24] LABS: BUN/CREATININE RATIO 15
[2020-02-19 06:26] LABS: ALANINE AMINOTRANSFERASE 13 U/L (0-55)
[2020-02-19 08:00] VITALS: BP 141/63
[2020-02-19] MEDS ORDERED: BISACODYL 10 MG SUPP (DULCOLAX) ONE (08:28)
[2020-02-19] MEDS: LOSARTAN 25 MG (COZAAR) TAB PO SCH (08:34)
[2020-02-19] MEDS ORDERED: BISACODYL 10 MG SUPP (DULCOLAX) PR ONE (08:45)
--- NOTE | 2020-02-19 09:09 | Discharge Summary ---
Diagnosis/Chief Complaint Date of Admission Feb 18, 2020 at 08:35 Date of Discharge Discharge Date: Feb 19, 2020 Discharge Time: 13:00 Admission Diagnosis Admission Diagnosis HYPERTENSIVE URGENCY NEW ONSET HYPERTENSION CHRONIC HYPOTHYROIDISM CONFUSION INSOMNIA CHRONIC BENZODIAZEPINE USE Discharge Diagnosis HYPERTENSIVE URGENCY NEW ONSET HYPERTENSION CHRONIC HYPOTHYROIDISM CONFUSION INSOMNIA CHRONIC BENZODIAZEPINE USE Reason Hospital Visit PT IS A 79 Y/O FEMALE WHO IS KNOWN TO ME FROM CLINIC. SHE PRESENTED TO THE EMERGENCY DEPARTMENT WITH CONFUSION - SHE BROUGHT HER MEDICATIONS INTO THE ER STATING THAT THEY NEED TO LET HER KNOW WHEN THE REFILLS ARE READY FOR HER TO PICK-UP. SHE REPORTS TO ME NOW THAT SHE DOES NOT REMEMBER THE EPISODE THAT HAPPENED IN THE ER EARLY THIS MORNING. SHE STATES THAT SHE FEELS LIKE SHE IS ABLE TO CARE FOR HERSELF AT HOME WITHOUT ISSUE. HOWEVER THE PATIENT'S SISTER REPORTS PROGRESSIVE CONFUSION. Discharge Summary Procedures: ECHO, CAROTID US, CT HEAD Consultations DR. ALEXANDRE Discharge Physical Examination Allergies: Coded Allergies: No Known Drug Allergies (Unverified , 04/26/11) Vitals & I&Os Vital Signs Date Time Temp Pulse Resp B/P (MAP) Pulse Ox O2 Delivery O2 Flow Rate FiO2 02/19/20 08:24 Room Air 02/19/20 08:00 37.5 61 16 141/63 (89) 96 General Appearance: Alert, Oriented X3, Cooperative, No Acute Distress HEENT: Atraumatic, PERRLA, EOMI, Mucous Memb Moist/Tira Respiratory: Clear to Auscultation, Normal Air Movement Cardiovascular: Regular Rate Abdominal: Normal Bowel Sounds, Soft, No Tenderness Extremities: No Clubbing, No Cyanosis, No Edema Skin: No Rashes, No Breakdown, No Significant Lesion Neuro: Strength at 5/5 X4 Ext, Cranial Nerves 3-12 NL Psych/Mental Status: Mental Status NL, Mood NL Hospital Course Was the Problem List Reviewed?: Yes HYPERTENSIVE URGENCY NEW ONSET HYPERTENSION CHRONIC HYPOTHYROIDISM CONFUSION INSOMNIA CHRONIC BENZODIAZEPINE USE HYPERTENSIVE URGENCY WITH NEW ONSET HYPERTENSION - WITH ADVANCED AGE AND NEW ONSET HYPERTENSION - CONSULT TO DR. ALEXANDRE, CHECKED CAROTIDS (NEGATIVE FOR OBSTRUCTIVE LESION), ECHO AND MONITOR PRESSURE ON [facility] AND [facility]. - MAY NEED STRESS TESTING OUTPATIENT - DEFER TO DR. ALEXANDRE'S RECOMMENDATIONS CHRONIC HYPOTHYROIDISM - RESUMED HOME MEDICATION - THYROID TESTING IN ER NORMAL CONFUSION, INSOMNIA, CHRONIC BENZODIAZEPINE USE - CONFUSION HAS IMPROVED. - CONTINUE WITH TAPERING OF BENZODIAZEPINE OUTPATIENT HOME HEALTH ORDERED FOR THERAPY, STRENGTHENING AND COGNITIVE FUNCTION EVAL AT HOME. I HAVE TALKED TO THE PATIENT AND HER DTR-IN-LAW YVONNE ABOUT THE NEED FOR HOME HEALTH - NO DRIVING FOR AT LEAST THE NEXT TWO WEEKS WE EVAL HER COGNITION. I HAVE ALSO RECOMMENDED PATIENT TO CONSIDER THAT SHE NEEDS TO MOVE TO TO BE NEAR HER FAMILY WHEN THEY MOVE TO . Pending Labs Laboratory Tests 02/19/20 05:17: White Blood Count 4.9, Red Blood Count 4.06, Hemoglobin 12.1, Hematocrit 37, Mean Corpuscular Volume 91, Mean Corpuscular Hemoglobin 30, Mean Corpuscular Hemoglobin Concent 33, Red Cell Distribution Width 13.7, Platelet Count 220, Mean Platelet Volume 11.7, Sodium Level 144, Potassium Level 3.8, Chloride Level 108, Carbon Dioxide Level 25, Anion Gap 11, Blood Urea Nitrogen 13, Creatinine 0.87, Estimat Glomerular Filtration Rate > 60, BUN/Creatinine Ratio 15, Glucose Level 94, Calcium Level 8.9, Corrected Calcium 9.1, Total Bilirubin 0.5, Aspartate Amino Transf (AST/SGOT) 13, Alanine Aminotransferase (ALT/SGPT) 13, Alkaline Phosphatase 78, Total Protein 6.0, Albumin 3.8 Discharge Condition at discharge IMPROVING Instructions to patient/family Please see electronic discharge instructions given to patient. Discharge Medications Reviewed and agree with Discharge Medication list on patient's Discharge Instruction sheet Clinical Quality Measures DVT/VTE Risk/Contraindication: Risk Factor Score Per Nursin RFS Level Per Nursing on Admit: 3=High KEVEN PERRY MD Feb 19, 2020 09:09
[2020-02-19] MEDS ORDERED: LOSA25TA41 PO (09:12)
[2020-02-19] MEDS ORDERED: MTP25TSR PO (09:12)
--- NOTE | 2020-02-19 09:16 | D/C HH Face to Face Order ---
D/C Face to Face Orders Reconcile Patient Problems Problems Reviewed?: Yes Instructions for Patient Via [employer], Patient Instructions/FollowUp: 1 wk [facility] 2 -[address] kumari's office Physician to follow Patient: j[facility] Discharge Diet for Home: Cardiac Diet Patient Problems: hypertension hypothyroidism confusion Patient Data-Allergies,Ht & Wt Patient Allergies: Coded Allergies: No Known Drug Allergies (Unverified , 04/26/11) Height (Feet): 5 Height (Inches): 6.00 Weight (Pounds): 208 Weight (Ounces): 5.0 Home Health Need/Face to Face Date of Face to Face: Feb 19, 2020 Clinical Findings: Generalized weakness and fatigue, Muscle weakness I have seen Pt [id number]: Yes Discharged To: Home (at [facility]) Diagnosis/Conditions: HYPERTENSIVE URGENCY NEW ONSET HYPERTENSION CHRONIC HYPOTHYROIDISM CONFUSION INSOMNIA CHRONIC BENZODIAZEPINE USE Patient is Homebound due to: CognItive deficits, Muscle weakness Homebound Status Due to the above stated illness, injury or surgical procedure (medical condition or diagnosis) and associated clinical findings, the patient is homebound because of his/her inability to leave home except with aid of a supportive device and/or person AND leaving the home requires a considerable and taxing effort or is medically contraindicated. Pt req the following assistanc: Cane Home Health Nursing Orders Home Health Services Order: Nursing Services, Physical Therapy-Evaluate & Treat, Speech Language-Evaluate & Treat monitor bp, report bp and heart rate to the office, help set up home medications, we are weaning the anxiety medication Home Health Infusion Therapy Line Start Date: Feb 18, 2020 Therapy Orders Therapy Orders: Speech Language Pathology (for eval at home for cognitive issues and safety at home) Therapy Specific Orders: Eval assistive deivces, Teach strategies/cognitive deficits, Increase strength/endurance Certify Stmt I certify that this patient is under my care and that I, a nurse practitioner or a physician; a programs assistant working with me, had a face to face encounter that - meets the physician face to face encounter requirements with this patient as dated. KEVEN PERRY MD Feb 19, 2020 09:16
--- NOTE | 2020-02-19 09:24 | NUR ---
CM/SS visited with patient for discharge planning. Plan: The patient will return home with home health care. The patients sister Birgit will come to picking tech the patient later this afternoon. Home Health: The patient was provided a patient preference form and chose [facility]. CM/SS contacted the agency and spoke with Melinda to make the referral. Melinda will contact the patient to set up a time for admission. Summary: The patient reports that she is currently living at home alone. CM/SS asked how the household is set up in regards to stairs and other safety risk. She reports that there are no stairs and she has a walk in shower. The patient reports that her home is set up with safety features. The patients sister is coming to picking tech the patient. The patient reports that she has a good support system with her son's and sister. She also has a friend that she visit near by. The patient did not have any further questions or needs at this time. Addendum: 02/19/20 at 1408 by [facility] The patients nurse informed this ss that the patients sister Birgit was requesting to speak to this ss. Birgit had questions about community resources such as meals on wheels, grocery delivery, area office on aging (homemaker services), and transportation. CM/SS answer all of her questions to the best of this ss ability. No further questions of concerns at this time.
[2020-02-19] MEDS ORDERED: polyethylene glycoL POWDER 17 GM (MIRALAX) PACK PO NR (09:30)
--- NOTE | 2020-02-19 10:52 | Cardiology Progress Note ---
Subjective Date Seen by Provider: Feb 19, 2020 Time Seen by Provider: 10:51 Subjective/Events-last exam Patient is sitting up in chair, no new complaints. Denies any chest pain or dyspnea. Being discharged home today. Review of Systems General: No Chills, No Night Sweats, No Fatigue, No Malaise, No Appetite, No Other HEENT: No Head Aches, No Visual Changes, No Eye Pain, No Ear Pain, No Dysphasia, No Sinus Congestion, No Post Nasal Drip, No Sore Throat, No Other Pulmonary: No Dyspnea, No Cough, No Pleuritic Chest Pain, No Other Cardiovascular: No: Chest Pain, Palpitations, Orthopnea, Paroxysmal Noc. Dyspnea, Edema, Lt Headedness, Other Objective-Cardiology Exam Last Set of Vital Signs Vital Signs 02/19/20 15:50 Temp 37.0 Pulse 64 Resp 20 B/P (MAP) 177/74 Pulse Ox 98 O2 Delivery Room Air Capillary Refill : Less Than 3 Seconds I&O Intake and Output 02/19/20 00:00 Intake Total 1020 ml Balance 1020 ml Intake Oral 1020 ml # Voids 3 Daily Weight Change Yes, 24-33 lbs Yes, 24-33 lbs General: Alert, Oriented X3, Cooperative, No Acute Distress HEENT: Atraumatic, PERRLA, EOMI, Mucous Memb Moist/[place] Lungs: Clear to Auscultation, Normal Air Movement Heart: Regular Rate Abdomen: Normal Bowel Sounds, Soft, No Tenderness Extremities: No Clubbing, No Cyanosis, No Edema Skin: No Rashes, No Breakdown, No Significant Lesion Neuro: Strength at 5/5 X4 Ext, Cranial Nerves 3-12 NL Psych/Mental Status: Mental Status NL, Mood NL Results Lab Laboratory Tests 02/19/20 05:17 A/P-Cardiology Admission Diagnosis Hypertensive emergency Hypertensive heart disease Chest pain Dementia Assessment/Plan Hypertensive emergency, with change with mental status, blood pressure is better, feeling better at this time. Continue to monitor Hypothyroidism, managed by primary care physician Hypertensive heart disease, LVH on echocardiogram. No signs of heart failure. Continue to monitor Chest pain nonspecific in etiology, patient reports improvement, continue to monitor at this time. Conservative management Dementia, confusion. OK for discharge from cardiology standpoint, follow up in 2-4 weeks. Patient was seen and evaluated with [facility], examination performed, management plan was discussed, agree with the current scribed note, I made few changes to the note using Italic font Patient was seen and evaluated, was feeling better. No new complaint. Continue on current medication and arrange for follow-up as an outpatient. Clinical Quality Measures DVT/VTE Risk/Contraindication: Risk Factor Score Per Nursin RFS Level Per Nursing on Admit: 3=High MAGNOLIA IGLESIAS Feb 19, 2020 10:52 KELLY ALEXANDRE MD Feb 19, 2020 16:30
--- NOTE | 2020-02-19 11:16 | ST Cognitive Linguistic Eval ---
Speech Evaluation-General Medical Diagnosis Hypertensive Emergency Onset Date: Feb 18, 2020 Therapy Diagnosis Therapy Diagnosis: Cognitive-communication Referral Referring Physician: Dr. Finn Medical History Pertinent Medical History: HTN Reviewed History: Yes Social History Home: Apartment Current Living Status: Alone Speech PLF-Current Status Prior Level of Function Patient lived at home alone and was independent for most of her daily needs. She does have family who assist when needed. Subjective Patient was pleasant and cooperative with the cognitive assessment. Patient was noted to have great difficulty staying focused on task at hand, easily distracted. Patient is noted to exhibit great confusion, although she admits this but not to the point of feeling she can not live alone. Language Eval: Auditory Comprehends Simple Yes/No Ques: Functional Indent/Objects Multiple [place]: Functional Ident/Pics in Multiple [place]: Mild Follows 1-Step Commands: Moderate Follows Complex Directions: Moderate Follows General Conversations: Moderate Language Eval: Verbal Language Completes Spontaneous Greeting: Functional Produces Auto, Serial Info: Functional Imitates Simple Words/Phrases: Mild Word Finding: Mild Requests Basic Needs: Mild States Basic Personal Info: Mild Expresses Complex Ideas: Moderate Objective Cognitive Domain Attention: Moderate Memory: Moderate Problem Solving: Mild Executive Functions: Moderate Visuospatial Skills: WNL Composite Severity Rating: Moderate Clock Drawing Severity Rating: Moderate Objective Formal/Standardized Tests [facility] Mental Status ([facility]) Results 10/30, Moderate Dementia level of function Oral Motor/Speech Production Within normal limits Impression Patient is a pleasant 79 y/o female who was admitted to the hospital via ED due to AMS. Patient was given the SLUMS with a score of 10/30 which falls in the Moderate dementia level of function. Patient currently lives alone in her apartment. She does have support from family and friends. The patient exhibits a great level of confusion and would not be able perform her daily needs. Patient has difficulty attending to task at hand and is easily distracted. It is my clinical opinion this patient is unsafe to live alone. She would benefit from Assisted Living with increased support for her daily needs. Speech-Plan Patient/Family Goals Patient/Family Goals: Patient plans on returning to her apartment where she lives alone. Patient's level of confusion is such she is recommended for other placement in order to be safe. Treatment Plan Speech Therapy Treatment Plan: Discontinue ST Treatment Duration: Feb 19, 2020 Frequency: 1 time per week Estimated Hrs Per Day: .25 hour per day Rehab Potential: Poor Barriers to Learning: Patient's level of confusion Pt/Family Agrees to Plan: Yes Safety Risks/Education Teaching Recipient: Patient Teaching Methods: Discussion Response to Teaching: Verbalize Understanding, Reinforcement Needed Education Topics Provided: Safety and needs upon her return home Time Speech Therapy Time In: 10:45 Speech Therapy Time Out: 11:00 Total Billed Time: 15 Billed Treatment Time 1, MARCIANDCOMP YAZ [place] Feb 19, 2020 11:16
[2020-02-19 12:00] VITALS: BP 177/74
[2020-02-19] MEDS: ENOXAPARIN 40 MG/0.4 ML (LOVENOX) SYR SQ SCH (14:26)
--- NOTE | 2020-02-19 14:53 | NUR ---
REPORT OF SLUM TEST AND RECOMMENDATION OF SPEECH THERAPIST CALLED TO DR PERRY. SISTER HERE AND LIKE PATIENT TO GO HOME WITH ASSISTANCE OF HOME HEALTH WITH PT,OT AND SPEECH.
--- NOTE | 2020-02-19 15:40 | NUR ---
DISCHARGE INSTRUCTION GIVEN TO PATIENT AND SISTER, VERBALIZED UNDERSTANDING OF NEW PRESCRIPTIONS AND FOLLOW UP APPOINTMENT AND HOME HEALTH. DISMISSED PER W/C WITH SISTER
[2020-02-19 15:50] VITALS: BP 177/74
--- OUTSIDE RECORDS SUMMARY | 2020-02-20 18:28 | XMS REPORT | CCD ---
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 [id number] 2018 Unknown Family history Father Diagnosis Age At Onset Alcoholism Unknown Cancer Unknown Asthma Unknown Mother Diagnosis Age At Onset Cancer Unknown Alcoholism Unknown Cancer Unknown Son Diagnosis Age At Onset Hearing loss Unknown Social History Social History Element Codes Description Effective Dates Marital status Unknown D ivorced 07/31/2014 Number of children Unknown 2 07/31/2014 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 Unknown Has never used illegal drugs 014 Allergies, Adverse Reactions, Alerts Substance Reaction Codes Entered Date Inactivated Date Status * NO KNOWN FOOD BEVERLY RGIES Unknown 07/31/2014 No Inactive Date Active bactrim hives, rash RxNorm: 736540 04/05/2016 No Inactive Date Active Past Medical History Illness Codes Condition Status Onset Date Resolved Date Diarrhea, unspecified ICD-9: 787.91 ICD-10: R19.7 Active 05/23/2019 Unknown Essential (primary) hypertension ICD-9: 401.9 ICD-10: I10 Active 07/31/2014 Unknown Mild intermittent as thma, uncomplicated ICD-9: 493.90 ICD-10: J45.20 Active 01/22/2019 Unknown Other specified hypo thyroidism ICD-9: 244.8 ICD-10: E03.8 Active 06/28/2016 Unknown 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 ICD-10: B00.1 Active 05/07/2019 Unknown Other acute sinusitis ICD-9: 461.8 ICD-10: J01.80 Active 03/31/2016 Unknown Other allergic rhinitis ICD-9: 477.8 ICD-10: J30.89 Active 10/17/2016 Unknown Other pruritus ICD-9: 698.9 ICD-10: L29.8 Active 04/29/2019 Unknown Pain in left knee ICD-9: 719.46 ICD-10: M25.562 Active 04/29/2019 Unknown Rash and other nonsp ecific skin eruption ICD-9: 782.1 ICD-10: R21 Active 05/31/2016 Unknown Changes in skin texture ICD-9: 782.8 ICD-10: R23.4 Active 03/21/2019 Unknown Hypothyroidism, unsp ecified ICD-9: 244.9 ICD-10: E03.9 Active 07/31/2014 Unknown Low back pain ICD-9: 724.2 ICD-10: M54.5 Active 04/04/2016 Unknown Acute recurrent maxi llary sinusitis ICD-9: 461.0 ICD-10: J01.01 Active 06/28/2018 Unknown Other mucopurulent c onjunctivitis, left eye ICD-9: 372.03 ICD-10: H10.022 Active 06/28/2018 Unknown Anemia, unspecified ICD- 9: 285.9 ICD-10: D64.9 Active 04/04/2018 Unknown Localized edema ICD-9: 782.3 ICD-10: R60.0 Active 05/10/2017 Unknown Actinic keratosis ICD-9: 702.0 ICD-10: L57.0 Active 01/05/2018 Unknown Mild persistent asth ma, uncomplicated ICD-9: 493.90 ICD-10: J45.30 Active 05/10/2017 Unknown 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 ICD-10: E03.4 Active 05/31/2016 Unknown Pain in left hip ICD-9: 719.45 ICD-10: M25.552 Active 10/25/2017 Unknown Mild persistent asth ma with (acute) exacerbation ICD-9: 493.12 ICD-10: J45.31 Active 10/17/2016 Unknown Asthma Unknown Active 05/10/2017 Unknow n Contusion of left wr ist, initial encounter ICD-9: 923.21 ICD-10: S60.212A Active 03/27/2017 Unknown Acute bronchitis due to other specified organisms ICD-9: 466.0 ICD-10: J20.8 Active 11/15/2016 Unknown Tinea barbae and tin ea capitis ICD-9: 110.0 ICD-10: B35.0 Active 06/28/2016 Unknown Cellulitis of groin ICD- 9: 682.2 ICD-10: L03.314 Active 05/10/2016 Unknown Candidiasis of vulva and vagina ICD-9: 112.1 ICD-10: B37.3 Active 04/04/2016 Unknown Other obesity due to excess calories ICD-9: 278.00 ICD-10: E66.09 Active 01/25/2016 Unknown Cutaneous abscess of face ICD-9: 682.0 ICD-10: L02.01 Active 12/20/2015 Unknown Cutaneous abscess of groin ICD-9: 682.2 ICD-10: L02.214 Active 10/11/2015 Unknown Allergic rhinitis, u nspecified ICD-9: 477.9 ICD-10: J30.9 Active 08/23/2015 Unknown Skin infection ICD-9: 686.9 Active 05/31/2015 Unknown Fingernail abnormali ties ICD-9: 703.8 Active 03/11 Unknown Hidradenitis suppura tiva ICD-9: 705.83 Active 04/2015 Unknown Lumbar spinal stenosis ICD-9: 724.02 Active 09/18/2014 Unknown Hypertension Unknown Active 07/31/2014 Unknow n Hypothryroidism Unknown Active 07/31/2014 Unknow n ESSENTIAL HYPERTENSION ICD-9: 401.9 Active 07/31/2014 Unknown Hypothyroidism ICD-9: 244.9 Active 07/31/2014 Unknown Low back pain ICD-9: 724.2 Active 07/31/2014 Unknown Problems Condition Codes Effectiv e Dates Condition Status Diarrhea, unspecified ICD-9: 787.91 ICD-10: R19.7 05/23/2019 Active Essential (primary) hypertension ICD-9: 401.9 ICD-10: I10 07/31/2014 Active Mild intermittent as thma, uncomplicated ICD-9: 493.90 ICD-10: J45.20 01/22/2019 Active Other specified hypo thyroidism ICD-9: 244.8 ICD-10: E03.8 06/28/2016 Active 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 ICD-10: B00.1 05/07/2019 Active Other acute sinusitis ICD-9: 461.8 ICD-10: J01.80 03/31/2016 Active Other allergic rhinitis ICD-9: 477.8 ICD-10: J30.89 10/17/2016 Active Other pruritus ICD-9: 698.9 ICD-10: L29.8 04/29/2019 Active Pain in left knee ICD-9: 719.46 ICD-10: M25.562 04/29/2019 Active Rash and other nonsp ecific skin eruption ICD-9: 782.1 ICD-10: R21 05/31/2016 Active Changes in skin texture ICD-9: 782.8 ICD-10: R23.4 03/21/2019 Active Hypothyroidism, unsp ecified ICD-9: 244.9 ICD-10: E03.9 07/31/2014 Active Low back pain ICD-9: 724.2 ICD-10: M54.5 04/04/2016 Active Acute recurrent maxi llary sinusitis ICD-9: 461.0 ICD-10: J01.01 06/28/2018 Active Other mucopurulent c onjunctivitis, left eye ICD-9: 372.03 ICD-10: H10.022 06/28/2018 Active Anemia, unspecified ICD- 9: 285.9 ICD-10: D64.9 04/04/2018 Active Localized edema ICD-9: 782.3 ICD-10: R60.0 05/10/2017 Active Actinic keratosis ICD-9: 702.0 ICD-10: L57.0 01/05/2018 Active Mild persistent asth ma, uncomplicated ICD-9: 493.90 ICD-10: J45.30 05/10/2017 Active 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 ICD-10: E03.4 05/31/2016 Active Pain in left hip ICD-9: 719.45 ICD-10: M25.552 10/25/2017 Active Mild persistent asth ma with (acute) exacerbation ICD-9: 493.12 ICD-10: J45.31 10/17/2016 Active Asthma Unknown 05/10/2017 Active Contusion of left wr ist, initial encounter ICD-9: 923.21 ICD-10: S60.212A 03/27/2017 Active Acute bronchitis due to other specified organisms ICD-9: 466.0 ICD-10: J20.8 11/15/2016 Active Tinea barbae and tin ea capitis ICD-9: 110.0 ICD-10: B35.0 06/28/2016 Active Cellulitis of groin ICD- 9: 682.2 ICD-10: L03.314 05/10/2016 Active Candidiasis of vulva and vagina ICD-9: 112.1 ICD-10: B37.3 04/04/2016 Active Other obesity due to excess calories ICD-9: 278.00 ICD-10: E66.09 01/25/2016 Active Cutaneous abscess of face ICD-9: 682.0 ICD-10: L02.01 12/20/2015 Active Cutaneous abscess of groin ICD-9: 682.2 ICD-10: L02.214 10/11/2015 Active Allergic rhinitis, u nspecified ICD-9: 477.9 ICD-10: J30.9 08/23/2015 Active Skin infection ICD-9: 686.9 05/31/2015 Active Fingernail abnormali ties ICD-9: 703.8 03/25/2015 Active Hidradenitis suppura tiva ICD-9: 705.83 09/18/2014 Active Lumbar spinal stenosis ICD-9: 724.02 09/18/2014 Active Hypertension Unknown 07/31/2014 Active Hypothryroidism Unknown 07/31/2014 Active ESSENTIAL HYPERTENSION ICD-9: 401.9 07/31/2014 Active Hypothyroidism ICD-9: 244.9 07/31/2014 Active Low back pain ICD-9: 724.2 07/31/2014 Active Medications Medication Codes Instruc tions Start Date Stop Date Sta tus Fill Instructions lorazepam 1 mg tablet RxNorm: 655985 Tablet(s) TAKE TWO TABLETS BY MOUTH AT B EDTIME NEEDED FOR INSOMNIA AND ONE TABLET DAILY NEEDED ANXIETY 05/07/2019 07/05/2019 Active valacyclovir 1 gram tablet RxNorm: 334620 1 Tablet(s) PO TID 05/07/2019 05/13/2019 Inactive Keflex 500 mg capsule RxNorm: 393552 1 Capsule(s) PO TID 05/07/2019 05/13/2019 Inactive tramadol 50 mg tablet RxNorm: 901181 1 Tablet(s) PO Q4 PRN as needed for pain 05/06/2019 06/14/2019 Ac tive tramadol 50 mg tablet RxNorm: 380205 TAKE ONE TABLET BY MOUTH EVERY 6 HOURS A S NEEDED FOR PAIN 05/06/2019 06/04/2019 Active prednisone 20 mg tablet RxNorm: 855536 1 Tablet(s) PO BID x 2 days, then 1 pill daily x 3 days, then 1/2 pill every other day x 3 doses. 04/29/2019 No Stop Date Active tramadol 50 mg tablet RxNorm: 611144 1 Tablet(s) PO Q6 PRN as needed for pain 04/09/2019 05/06/2019 In active levothyroxine 125 mc g tablet RxNorm: 548880 1 Tablet(s) PO daily TAKE ONE TABLET BY MOUTH DAILY ON AN EMPTY STOMACH 03/25/2019 06/16/2020 Active lorazepam 1 mg tablet RxNorm: 945802 Tablet(s) TAKE TWO TABLETS BY MOUTH AT B EDTIME NEEDED FOR INSOMNIA AND ONE TABLET DAILY NEEDED ANXIETY 03/15/2019 05/06/2019 Inactive tramadol 50 mg tablet RxNorm: 796462 1 Tablet(s) PO Q4 PRN as needed for pain 03/15/2019 04/08/2019 In active tramadol 50 mg tablet RxNorm: 934834 1 Tablet(s) PO Q4 PRN as needed for pain 02/20/2019 03/14/2019 In active lorazepam 1 mg tablet RxNorm: 418999 Tablet(s) TAKE TWO TABLETS BY MOUTH AT B EDTIME NEEDED FOR INSOMNIA AND ONE TABLET DAILY NEEDED ANXIETY 01/04/2019 03/03/2019 Inactive Keflex 500 mg capsule RxNorm: 056666 1 Capsule(s) PO TID 12/05/2018 12/11/2018 Inactive tramadol 50 mg tablet RxNorm: 313152 1 Tablet(s) PO Q4 PRN as needed for pain 12/05/2018 01/12/2019 In active ciprofloxacin 0.3 % eye drops RxNorm: 997534 INSTILL TWO DROPS TO THE AFFECTED EYE(S) THREE TIMES A DAY 11/23/2018 12/25/2018 Inactive ProAir HFA 90 mcg/ac tuation aerosol inhaler RxNorm: 9248821 1-2 Puff(s) INH Q4 P RN INHALE 1 TO 2 PUFFS FOUR TIMES A DAY NEEDED FOR ASTHMA 10/30/2018 01/27/2019 Inactive levothyroxine 137 mc g tablet RxNorm: 431403 1 Tablet(s) PO daily TAKE ONE TABLET BY MOUTH DAILY ON AN EMPTY STOMACH 10/30/2018 03/24/2019 Inactive tramadol 50 mg tablet RxNorm: 346529 1 Tablet(s) PO Q4 PRN as needed for pain 10/29/2018 12/04/2018 In active levothyroxine 125 mc g tablet RxNorm: 190116 1 Tablet(s) PO daily TAKE ONE TABLET BY MOUTH DAILY ON AN EMPTY STOMACH 09/06/2018 10/29/2018 Inactive lorazepam 1 mg tablet RxNorm: 141971 Tablet(s) TAKE TWO TABLETS BY MOUTH AT B EDTIME NEEDED FOR INSOMNIA AND ONE TABLET DAILY NEEDED ANXIETY 09/06/2018 11/02/2018 Inactive tramadol 50 mg tablet RxNorm: 801023 1 Tablet(s) PO Q4 PRN as needed for pain 09/06/2018 10/15/2018 In active tramadol 50 mg tablet RxNorm: 479932 1 Tablet(s) PO Q4 PRN as needed for pain 07/06/2018 08/14/2018 In active ciprofloxacin 0.3 % eye drops RxNorm: 360740 2 Drop(s) ophthalmic (eye) TID 06/28/2018 07/07/2018 In active lorazepam 1 mg tablet RxNorm: 119642 Tablet(s) TAKE TWO TABLETS BY MOUTH AT B EDTIME NEEDED FOR INSOMNIA AND ONE TABLET DAILY NEEDED ANXIETY 06/28/2018 08/26/2018 Inactive doxycycline hyclate 100 mg tablet RxNorm: 9497697 1 Tablet(s) PO BID 06/28/2018 07/04/2018 Inactive tramadol 50 mg tablet RxNorm: 340992 1 Tablet(s) PO Q4 PRN as needed for pain 06/13/2018 07/05/2018 In active lorazepam 1 mg tablet RxNorm: 263248 Tablet(s) TAKE TWO TABLETS BY MOUTH AT B EDTIME NEEDED FOR INSOMNIA AND ONE TABLET DAILY NEEDED ANXIETY 05/23/2018 06/27/2018 Inactive tramadol 50 mg tablet RxNorm: 763244 1 Tablet(s) PO Q4 PRN as needed for pain 05/23/2018 06/12/2018 In active levothyroxine 125 mc g tablet RxNorm: 788929 Tablet(s) TAKE ONE TA BLET BY MOUTH DAILY ON AN EMPTY STOMACH 05/23/2018 09/05/2018 Inactive tramadol 50 mg tablet RxNorm: 067242 1 Tablet(s) PO Q4 PRN as needed for pain 05/17/2018 05/22/2018 In active levothyroxine 125 mc g tablet RxNorm: 481082 TAKE ONE TABLET BY MO UTH DAILY 05/15/2018 06/27/2018 In active levothyroxine 125 mc g tablet RxNorm: 661813 TAKE ONE TABLET BY MO UTH DAILY 05/15/2018 06/27/2018 In active tramadol 50 mg tablet RxNorm: 607348 1 Tablet(s) PO Q4 PRN as needed for pain 04/30/2018 05/16/2018 In active Advair Diskus 100 mc g-50 mcg/dose powder for inhalation RxNorm: 1118407 1 Puff(s) INH BID 04/06/2018 01/21/2019 Inactive Symbicort 80 mcg-4.5 mcg/actuation HFA aerosol inhaler RxNorm: 3531318 2 Puff(s) INH BID 04/06/2018 01/21/2019 Inactive Advair Diskus 250 mc g-50 mcg/dose powder for inhalation RxNorm: 4977773 1 Puff(s) INH BID 04/05/2018 09/01/2018 Inactive Zyrtec 10 mg tablet RxNorm: 4580447 1 Tablet(s) PO daily x1 week then PRN 04/05/2018 08/02/2018 In active lisinopril 20 mg-hyd rochlorothiazide 25 mg tablet RxNorm: 211519 Tablet(s) TAKE ONE TABLET BY MOUTH DAILY 04/05/2018 10/29/2018 Inactive Zyrtec 10 mg tablet RxNorm: 4722542 1 Tablet(s) PO daily 04/04/2018 05/03/2018 Inactive tramadol 50 mg tablet RxNorm: 958894 1 Tablet(s) PO Q4 PRN as needed for pain 03/13/2018 04/21/2018 In active lorazepam 1 mg tablet RxNorm: 835080 Tablet(s) TAKE TWO TABLETS BY MOUTH AT B EDTIME NEEDED FOR INSOMNIA AND ONE TABLET DAILY NEEDED ANXIETY 03/02/2018 04/30/2018 Inactive levothyroxine 125 mc g tablet RxNorm: 273475 1 Tablet(s) PO daily 02/06/2018 05/06/2018 Inactive levothyroxine 125 mc g tablet RxNorm: 102077 TAKE ONE TABLET BY MO [facility] DAILY ON AN EMPTY STOMACH 02/06/2018 05/22/2018 Inactive tramadol 50 mg tablet RxNorm: 810179 1 Tablet(s) PO Q4 PRN as needed for pain 01/26/2018 03/06/2018 In active lorazepam 1 mg tablet RxNorm: 716386 Tablet(s) TAKE TWO TABLETS BY MOUTH AT B EDTIME NEEDED FOR INSOMNIA AND ONE TABLET DAILY NEEDED ANXIETY 01/23/2018 06/27/2018 Inactive Symbicort 80 mcg-4.5 mcg/actuation HFA aerosol inhaler RxNorm: 9869683 INH 01/05/2018 06/27/2018 In active tramadol 50 mg tablet RxNorm: 575358 1 Tablet(s) PO Q4 PRN as needed for pain 01/04/2018 01/25/2018 In active Advair Diskus 250 mc g-50 mcg/dose powder for inhalation RxNorm: 3853603 1 Puff(s) INH BID 11/29/2017 03/28/2018 Inactive hydrochlorothiazide 12.5 mg tablet RxNorm: 409669 1 Tablet(s) PO daily 11/29/2017 12/28/2017 In active tramadol 50 mg tablet RxNorm: 184758 1 Tablet(s) PO Q4 PRN as needed for pain 11/23/2017 01/01/2018 In active tramadol 50 mg tablet RxNorm: 776562 1 Tablet(s) PO Q4 PRN as needed for pain 10/06/2017 11/14/2017 In active lorazepam 1 mg tablet RxNorm: 940028 Tablet(s) TAKE TWO TABLETS BY MOUTH AT B EDTIME NEEDED FOR INSOMNIA AND ONE TABLET DAILY NEEDED ANXIETY 09/12/2017 06/27/2018 Inactive tramadol 50 mg tablet RxNorm: 635538 1 Tablet(s) PO Q4 PRN as needed for pain 09/12/2017 10/05/2017 In active tramadol 50 mg tablet RxNorm: 554361 1 Tablet(s) PO Q4 PRN as needed for pain 08/15/2017 09/11/2017 In active tramadol 50 mg tablet RxNorm: 232032 1 Tablet(s) PO Q4 PRN as needed for pain 06/29/2017 08/07/2017 In active ProAir HFA 90 mcg/ac tuation aerosol inhaler RxNorm: 4089999 INHALE 1 TO 2 PUFFS FOUR TIMES A DAY NEEDED FOR ASTHMA 06/14/2017 11/10/2017 Inactive prednisone 20 mg tablet RxNorm: 050858 1 Tablet(s) PO BID x 2 days, then 1 pill daily x 3 days, then 1/2 pill every other day x 3 doses. 06/14/2017 09/11/2017 Inactive Kenalog 40 mg/mL madhavi pension for injection RxNorm: 3352658 1 Milliliter(s) Inj 06/14/2017 06/14/2017 In active Zyrtec 10 mg tablet RxNorm: 8241540 1 Tablet(s) PO daily 06/14/2017 07/13/2017 Inactive tramadol 50 mg tablet RxNorm: 874908 1 Tablet(s) PO Q4 PRN as needed for pain 06/08/2017 06/27/2017 In active [SAVINGS FOR UNINSURED PATIENTS -- BIN:0 76056, PCN: ASPROD1, Group: [id number], ID# [id number], Process claim through WorkProducts, for questions: . THIS IS NOT INSURANCE.] tramadol 50 mg tablet RxNorm: 033279 1 Tablet(s) PO Q4 PRN as needed for pain 05/16/2017 06/04/2017 In active [SAVINGS FOR UNINSURED PATIENTS -- BIN:0 47653, PCN: ASPROD1, Group: [id number], ID# [id number], Process claim through WorkProducts, for questions: . THIS IS NOT INSURANCE.] lorazepam 1 mg tablet RxNorm: 015349 Tablet(s) TAKE TWO TABLETS BY MOUTH AT B EDTIME NEEDED FOR INSOMNIA AND ONE TABLET DAILY NEEDED ANXIETY 05/16/2017 08/13/2017 Inactive Lasix 20 mg tablet RxNorm: 430876 1 Tablet(s) PO daily 05/10/2017 05/09/2017 Inactive Lasix 20 mg tablet RxNorm: 1 Tablet(s) PO daily 05/10/2017 05/12/2017 Inactive potassium chloride E R 10 mEq tablet,extended release RxNorm: 630063 1 Tablet(s) PO daily while on the lasix 05/10/2017 05/09/2017 Inactive potassium chloride E R 10 mEq tablet,extended release RxNorm: 766476 1 Tablet(s) PO daily while on the lasix 05/10/2017 05/12/2017 Inactive prednisone 20 mg tablet RxNorm: 560066 1 Tablet(s) PO BID x 2 days, then 1 pill daily x 3 days, then 1/2 pill every other day x 3 doses. 04/19/2017 06/13/2017 Inactive Zithromax Z-Linus 250 mg tablet RxNorm: 895115 1 Tablet(s) PO UD 04/13/2017 06/28/2017 Inactive prednisone 20 mg tablet RxNorm: 948542 1 Tablet(s) PO BID 04/13/2017 04/17/2017 Inactive levothyroxine 125 mc g tablet RxNorm: 672237 1 Tablet(s) PO daily 04/11/2017 10/07/2017 Inactive tramadol 50 mg tablet RxNorm: 123860 1 Tablet(s) PO Q4 PRN as needed for pain 03/27/2017 04/15/2017 In active [SAVINGS FOR UNINSURED PATIENTS -- BIN:0 38605, PCN: ASPROD1, Group: [id number], ID# [id number], Process claim through WorkProducts, for questions: . THIS IS NOT INSURANCE.] Kenalog 40 mg/mL madhavi pension for injection RxNorm: 1191166 1 Milliliter(s) Inj 03/27/2017 03/27/2017 In active tramadol 50 mg tablet RxNorm: 072081 1 Tablet(s) PO Q4H as needed for pain 03/09/2017 03/26/2017 In active [SAVINGS FOR UNINSURED PATIENTS -- BIN:0 33463, PCN: ASPROD1, Group: [id number], ID# [id number], Process claim through WorkProducts, for questions: . THIS IS NOT INSURANCE.] lisinopril 20 mg-hyd rochlorothiazide 25 mg tablet RxNorm: 405761 TAKE ONE TABLET BY MOUTH DAILY 01/29/2017 11/21/2017 Inactive lorazepam 1 mg tablet RxNorm: Tablet(s) TAKE TWO TABLETS BY MOUTH AT B EDTIME NEEDED FOR INSOMNIA AND ONE TABLET DAILY NEEDED ANXIETY 01/05/2017 04/04/2017 Inactive tramadol 50 mg tablet RxNorm: 078428 1 Tablet(s) PO Q4H as needed for pain 12/07/2016 01/13/2017 In active [SAVINGS FOR UNINSURED PATIENTS -- BIN:0 53340, PCN: ASPROD1, Group: [id number], ID# [id number], Process claim through WorkProducts, for questions: . THIS IS NOT INSURANCE.] Kenalog 40 mg/mL madhavi pension for injection RxNorm: 2590374 Milliliter(s) Inj 12/07/2016 12/07/2016 In active nystatin 100,000 uni t/mL oral suspension RxNorm: 038897 4 Milliliter(s) PO QI D 12/07/2016 12/11/2016 In active Francia-D 12 Hour 60 mg-120 mg tablet,extended release RxNorm: 313485 1 Tablet(s) PO BID 12/07/2016 01/11/2017 Inactive lorazepam 1 mg tablet RxNorm: 464636 Tablet(s) TAKE TWO TABLETS BY MOUTH AT B EDTIME AND ONE TABLET DAILY NEEDED 12/07/2016 01/04/2017 Inactive (Response to an electronic controlled substance refill request - RxReferenceNumber: [id number]) albuterol sulfate 2. 5 mg/3 mL (0.083 %) solution for nebulization RxNorm: 527201 3 Milliliter(s) INH TID 11/29/2016 11/28/2016 Inactive prednisone 10 mg tablet RxNorm: 866312 Tablet(s) PO UD 11/29/2016 12/05/2016 Inactive 6,5,4,3,2,1 doxycycline hyclate 100 mg tablet RxNorm: 616059 1 Tablet(s) PO BID 11/29/2016 12/04/2016 Inactive albuterol sulfate 2. 5 mg/3 mL (0.083 %) solution for nebulization RxNorm: 611188 3 Milliliter(s) INH TID 11/29/2016 12/03/2016 Inactive Kenalog 40 mg/mL madhavi pension for injection RxNorm: 1915337 Milliliter(s) Inj 11/28/2016 11/28/2016 In active tramadol 50 mg tablet RxNorm: 114210 1 Tablet(s) PO Q4H as needed for pain 11/15/2016 12/06/2016 In active [SAVINGS FOR UNINSURED PATIENTS -- BIN:0 04710, PCN: ASPROD1, Group: [id number], ID# [id number], Process claim through WorkProducts, for questions: . THIS IS NOT INSURANCE.] prednisone 20 mg tablet RxNorm: 833933 2 Tablet(s) PO daily 11/15/2016 11/19/2016 Inactive Advair Diskus 100 mc g-50 mcg/dose powder for inhalation RxNorm: 9355078 1 Puff(s) INH BID 11/15/2016 06/11/2017 Inactive ProAir HFA 90 mcg/ac tuation aerosol inhaler RxNorm: 040789 INHALE 1 TO 2 PUFFS F OUR TIMES A DAY NEEDED FOR ASTHMA 11/15/2016 04/13/2017 Inactive Zithromax Z-Linus 250 mg tablet RxNorm: 475350 1 Tablet(s) PO UD 11/15/2016 11/27/2016 Inactive Zyrtec 10 mg tablet RxNorm: 8274887 1 Tablet(s) PO daily 10/17/2016 11/15/2016 Inactive Keflex 500 mg capsule RxNorm: 630467 1 Capsule(s) PO TID 10/17/2016 10/23/2016 Inactive prednisone 10 mg tablet RxNorm: 251591 Tablet(s) PO UD 10/17/2016 11/28/2016 Inactive 6,5,4,3,2,1 tramadol 50 mg tablet RxNorm: 736739 1 Tablet(s) PO Q4H as needed for pain 09/28/2016 11/06/2016 In active [SAVINGS FOR UNINSURED PATIENTS -- BIN:0 55793, PCN: ASPROD1, Group: [id number], ID# [id number], Process claim through WorkProducts, for questions: . THIS IS NOT INSURANCE.] ProAir HFA 90 mcg/ac tuation aerosol inhaler RxNorm: 208577 INHALE 1 TO 2 PUFFS F OUR TIMES A DAY NEEDED FOR ASTHMA 09/15/2016 11/14/2016 Inactive doxycycline hyclate 100 mg tablet RxNorm: 102673 1 Tablet(s) PO BID 09/15/2016 09/24/2016 Inactive doxycycline hyclate 100 mg tablet RxNorm: 358056 1 Tablet(s) PO BID 07/29/2016 08/07/2016 Inactive tramadol 50 mg tablet RxNorm: 201850 1 Tablet(s) PO Q4H as needed for pain 07/29/2016 09/06/2016 In active [SAVINGS FOR UNINSURED PATIENTS -- BIN:0 68872, PCN: [id number], Group: [id number], ID# [id number], Process claim through WorkProducts, for questions: . THIS IS NOT INSURANCE.] lorazepam 1 mg tablet RxNorm: 051853 Tablet(s) TAKE TWO TABLETS BY MOUTH AT B EDTIME AND ONE TABLET DAILY NEEDED 07/29/2016 10/26/2016 Inactive (Response to an electronic controlled substance refill request - RxReferenceNumber: [id number]) levothyroxine 125 mc g tablet RxNorm: 135829 1 Tablet(s) PO daily 06/29/2016 06/29/2016 Inactive levothyroxine 137 mc g tablet RxNorm: 444049 1 Tablet(s) PO daily 06/29/2016 12/25/2016 Inactive ketoconazole 2 % sha mpoo RxNorm: 789524 1 Application TOP BID 06/29/2016 07/03/2016 Inactive tramadol 50 mg tablet RxNorm: 794393 1 Tablet(s) PO Q4H as needed for pain 06/16/2016 07/25/2016 In active [SAVINGS FOR UNINSURED PATIENTS -- BIN:0 74403, PCN: ASPROD1, Group: [id number], ID# [id number], Process claim through WorkProducts, for questions: . THIS IS NOT INSURANCE.] Bactroban 2 % topica l ointment RxNorm: 454220 APPLY TO AFFECTED ARE A(S) TWO TIMES A DAY 06/16/2016 04/16/2017 Inactive fluconazole 150 mg t ablet RxNorm: 774180 1 Tablet(s) PO daily 06/01/2016 06/05/2016 Inactive gentamicin 0.1 % top ical ointment RxNorm: 616260 1 Application TOP QID 05/12/2016 05/25/2016 In active metronidazole 500 mg tablet RxNorm: 490669 1 Tablet(s) PO TID 05/11/2016 05/24/2016 Inactive gentamicin 0.1 % top ical ointment RxNorm: 897857 1 Application TOP QID 05/11/2016 05/11/2016 In active doxycycline hyclate 100 mg tablet RxNorm: 925165 1 Tablet(s) PO BID 05/11/2016 05/24/2016 Inactive lorazepam 1 mg tablet RxNorm: 669456 Tablet(s) TAKE TWO TABLETS BY MOUTH AT B EDTIME AND ONE TABLET DAILY NEEDED 05/02/2016 07/28/2016 Inactive (Response to an electronic controlled substance refill request - RxReferenceNumber: [id number]) Diflucan 150 mg tablet RxNorm: 014966 1 Tablet(s) PO daily x5 days then 1 x we ekly x 4 weeks. 05/02/2016 04/10/2017 Inactive Diflucan 150 mg tablet RxNorm: 830860 1 Tablet(s) PO every other day 04/19/2016 04/28/2016 In active Diflucan 150 mg tablet RxNorm: 781690 1 Tablet(s) PO every other day 04/19/2016 04/18/2016 In active Diflucan 150 mg tablet RxNorm: 096902 1 Tablet(s) PO daily 04/05/2016 04/11/2016 Inactive mupirocin 2 % topica l ointment RxNorm: 018787 1 Application TOP BID 04/05/2016 05/04/2016 Inactive tramadol 50 mg tablet RxNorm: 403687 1 Tablet(s) PO Q4H as needed for pain 04/05/2016 05/14/2016 In active [SAVINGS FOR UNINSURED PATIENTS -- BIN:0 13305, PCN: ASPROD1, Group: [id number], ID# [id number], Process claim through WorkProducts, for questions: . THIS IS NOT INSURANCE.] prednisone 10 mg tablet RxNorm: 623331 Tablet(s) PO UD 04/01/2016 09/26/2016 Inactive 6,5,4,3,2,1 levothyroxine 137 mc g tablet RxNorm: 034234 1 Tablet(s) PO daily 03/21/2016 03/20/2016 Inactive levothyroxine 137 mc g tablet RxNorm: 887090 1 Tablet(s) PO daily 03/21/2016 06/28/2016 Inactive Advair Diskus 100 mc g-50 mcg/dose powder for inhalation RxNorm: 7697837 1 Puff(s) INH BID 01/26/2016 05/24/2016 Inactive tramadol 50 mg tablet RxNorm: 137323 1 Tablet(s) PO Q4H as needed for pain 01/26/2016 03/05/2016 In active [SAVINGS FOR UNINSURED PATIENTS -- BIN:0 [id number], PCN: [email or web address], Group: [id number], ID# [id number], Process claim through WorkProducts, for questions: . THIS IS NOT INSURANCE.] Bactroban 2 % topica l ointment RxNorm: 958634 APPLY TO AFFECTED ARE A(S) TWO TIMES A DAY 12/22/2015 12/31/2015 Inactive Bactrim DS 800 mg-16 0 mg tablet RxNorm: 390841 TAKE ONE TABLET BY [facility] TWICE A DAY 12/22/2015 04/18/2016 In active Bactrim DS 800 mg-16 0 mg tablet RxNorm: 429904 1 Tablet(s) PO BID 12/21/2015 01/21/2019 Inactive lisinopril 20 mg-hyd rochlorothiazide 25 mg tablet RxNorm: 595658 1 Tablet(s) PO daily 12/21/2015 06/17/2016 Inactive [SAVINGS FOR UNINSURED PATIENTS -- BIN:0 83156, PCN: ASPROD1, Group: AME08, ID# [id number], Process claim through WorkProducts, for questions: . THIS IS NOT INSURANCE.] tramadol 50 mg tablet RxNorm: 993830 1 Tablet(s) PO Q4H as needed for pain 12/03/2015 01/11/2016 In active [SAVINGS FOR UNINSURED PATIENTS -- BIN:0 37765, PCN: ASPROD1, Group: AME08, ID# [id number], Process claim through WorkProducts, for questions: . THIS IS NOT INSURANCE.] lorazepam 1 mg tablet RxNorm: 873826 Tablet(s) TAKE TWO TABLETS BY MOUTH AT B EDTIME AND ONE TABLET DAILY NEEDED 11/26/2015 06/27/2018 Inactive (Response to an electronic controlled substance refill request - RxReferenceNumber: [id number]) Bactrim DS 800 mg-16 0 mg tablet RxNorm: 809675 1 Tablet(s) PO BID 11/25/2015 12/04/2015 Inactive levothyroxine 150 mc g tablet RxNorm: 673143 1 Tablet(s) PO daily 11/25/2015 03/20/2016 Inactive Bactroban 2 % topica l ointment RxNorm: 506945 1 Application TOP BID 10/12/2015 10/21/2015 Inactive Bactrim DS 800 mg-16 0 mg tablet RxNorm: 362207 1 Tablet(s) PO BID 09/07/2015 09/06/2015 Inactive Bactrim DS 800 mg-16 0 mg tablet RxNorm: 212112 1 Tablet(s) PO BID 09/07/2015 09/16/2015 Inactive lorazepam 1 mg tablet RxNorm: 735698 Tablet(s) TAKE TWO TABLETS BY MOUTH AT B EDTIME AND ONE TABLET DAILY NEEDED 08/28/2015 11/24/2015 Inactive (Response to an electronic controlled substance refill request - RxReferenceNumber: [id number]) levothyroxine 175 mc g tablet RxNorm: 151686 1 Tablet(s) PO daily 08/24/2015 11/24/2015 Inactive tramadol 50 mg tablet RxNorm: 019107 1 Tablet(s) PO Q4H as needed for pain 08/24/2015 09/11/2017 In active [SAVINGS FOR UNINSURED PATIENTS -- BIN:0 14429, PCN: ASPROD1, Group: AME08, ID# [id number], Process claim through WorkProducts, for questions: . THIS IS NOT INSURANCE.] lisinopril 20 mg-hyd rochlorothiazide 25 mg tablet RxNorm: 314608 1 Tablet(s) PO daily TAKE 1 TABLET BY MOUTH DAILY 08/24/2015 06/27/2018 Inactive ProAir HFA 90 mcg/ac tuation aerosol inhaler RxNorm: 314528 1-2 Puff(s) INH PRN I NHALE ONE TO TWO PUFFS BY MOUTH FOUR TIMES A DAY NEEDED FOR ASTHMA 08/24/2015 12/01/2015 In active ProAir HFA 90 mcg/ac tuation aerosol inhaler RxNorm: 9338453 INHALE ONE TO TWO PU FFS BY MOUTH FOUR TIMES A DAY NEEDED FOR ASTHMA 08/17/2015 08/23/2015 Inactive Advair Diskus 250 mc g-50 mcg/dose powder for inhalation RxNorm: 7921526 1 Puff(s) INH BID 07/20/2015 07/19/2015 Inactive Advair Diskus 250 mc g-50 mcg/dose powder for inhalation RxNorm: 2786339 1 Puff(s) INH BID 07/20/2015 11/16/2015 Inactive tramadol 50 mg tablet RxNorm: 212500 1 Tablet(s) PO Q4H as needed for pain 07/10/2015 08/17/2015 In active [SAVINGS FOR UNINSURED PATIENTS -- BIN:0 32144, PCN: ASPROD1, Group: AME08, ID# [id number], Process claim through WorkProducts, for questions: . THIS IS NOT INSURANCE.] Zithromax Z-Linus 250 mg tablet RxNorm: 311089 1 Tablet(s) PO UD 07/10/2015 01/18/2016 Inactive Keflex 500 mg capsule RxNorm: 175688 1 Capsule(s) PO TID 06/01/2015 06/07/2015 Inactive mupirocin 2 % topica l ointment RxNorm: 013861 1 Application TOP TID 06/01/2015 06/10/2015 Inactive lisinopril 20 mg-hyd rochlorothiazide 25 mg tablet RxNorm: 599527 TAKE 1 TABLET BY MOUT H DAILY 05/30/2015 08/23/2015 Inactive lisinopril 20 mg-hyd rochlorothiazide 25 mg tablet RxNorm: 166794 1 Tablet(s) PO daily 05/29/2015 11/24/2015 Inactive [SAVINGS FOR UNINSURED PATIENTS -- BIN:0 56904, PCN: ASPROD1, Group: AME08, ID# [id number], Process claim through MedImpact, for questions: . THIS IS NOT INSURANCE.] lorazepam 1 mg tablet RxNorm: 089139 Tablet(s) TAKE TWO TABLETS BY MOUTH AT B EDTIME AND ONE TABLET DAILY NEEDED 04/17/2015 07/13/2015 Inactive (Response to an electronic controlled substance refill request - RxReferenceNumber: [id number]) levothyroxine 200 mc g tablet RxNorm: 628215 1 Tablet(s) PO daily 03/12/2015 08/23/2015 Inactive [SAVINGS FOR UNINSURED PATIENTS -- BIN:0 81871, PCN: ASPROD1, Group: AME08, ID# [id number], Process claim through MedImpact, for questions: . THIS IS NOT INSURANCE.] lisinopril 20 mg-hyd rochlorothiazide 25 mg tablet RxNorm: 227611 1 Tablet(s) PO daily 03/11/2015 05/28/2015 Inactive [SAVINGS FOR UNINSURED PATIENTS -- BIN:0 34482, PCN: ASPROD1, Group: AME08, ID# [id number], Process claim through MedImpact, for questions: . THIS IS NOT INSURANCE.] levothyroxine 175 mc g tablet RxNorm: 714669 1 Tablet(s) PO daily 03/09/2015 03/11/2015 Inactive recheck blood in 3 months- THIS IS CORRE CT DOSAGE levothyroxine 175 mc g tablet RxNorm: 292938 1 Tablet(s) PO daily 03/09/2015 03/08/2015 Inactive recheck blood in 3 months levothyroxine 150 mc g tablet RxNorm: 222101 1 Tablet(s) PO daily 03/09/2015 03/08/2015 Inactive recheck blood in 3 months lorazepam 1 mg tablet RxNorm: 317451 TAKE TWO TABLETS BY MOUTH AT BEDTIME AND ONE TABLET DAILY NEEDED 12/25/2014 01/22/2015 Inactive (Response to an electronic controlled substance refill request - RxReferenceNumber: [id number]) lorazepam 1 mg tablet RxNorm: 633455 Tablet(s) TAKE TWO TABLETS BY MOUTH EVER Y NIGHT AT BEDTIME AND TAKE ONE TABLET BY MOUTH DAILY NEEDED 12/23/2014 12/25/2014 Inactive (Response to an electronic controlled [place] bstance refill request - RxReferenceNumber: [id number]) levothyroxine 150 mc g tablet RxNorm: 773026 1 Tablet(s) PO daily 12/12/2014 03/08/2015 Inactive recheck blood in 3 months Diflucan 150 mg tablet RxNorm: 547719 1 Tablet(s) PO every other day (start af ter finished with Cipro) 11/17/2014 08/23/2015 Inactive tramadol 50 mg tablet RxNorm: 636950 1 Tablet(s) PO Q4H as needed for pain 11/10/2014 12/17/2014 In active [SAVINGS FOR UNINSURED PATIENTS -- BIN:0 70200, PCN: ASPROD1, Group: [id number], ID# [id number], Process claim through WorkProducts, for questions: . THIS IS NOT INSURANCE.] Cipro 500 mg tablet RxNorm: 059432 1 Tablet(s) PO BID 10/23/2014 10/29/2014 Inactive Flagyl 500 mg tablet RxNorm: 010829 1 Tablet(s) PO TID 10/23/2014 10/29/2014 Inactive Cipro 500 mg tablet RxNorm: 765106 1 Tablet(s) PO BID 10/23/2014 10/22/2014 Inactive Flagyl 500 mg tablet RxNorm: 021934 1 Tablet(s) PO TID 10/23/2014 10/22/2014 Inactive Diflucan 150 mg tablet RxNorm: 490156 1 Tablet(s) PO every other day (start af ter finished with Cipro) 10/23/2014 11/16/2014 Inactive lorazepam 1 mg tablet RxNorm: 724413 TAKE TWO TABLETS BY MOUTH EVERY NIGHT AT BEDTIME AND TAKE ONE TABLET BY MOUTH DAILY NEEDED 10/21/2014 10/21/2014 Inactive (Response to an electronic controlled [place] bstance refill request - RxReferenceNumber: [id number]) lorazepam 1 mg tablet RxNorm: 031560 TAKE TWO TABLETS BY MOUTH EVERY NIGHT AT BEDTIME AND TAKE ONE TABLET BY MOUTH DAILY NEEDED 10/21/2014 11/18/2014 Inactive (Response to an electronic controlled north bstance refill request - RxReferenceNumber: [id number]) lorazepam 1 mg tablet RxNorm: 965744 Tablet(s) TAKE TWO TABLETS BY MOUTH AT B EDTIME, ALSO TAKE ONE TABLET BY MOUTH DAILY NEEDED 10/13/2014 10/21/2014 Inactive (Res ponse to an electronic controlled substance refill request - RxReferenceNumber: [id number]) ProAir HFA 90 mcg/ac tuation aerosol inhaler RxNorm: 4155480 1-2 inhale INH QID a s needed ASTHMA 10/13/2014 12/26/2014 Inactive ProAir HFA 90 mcg/ac tuation aerosol inhaler RxNorm: 3620466 1-2 inhale INH QID a s needed ASTHMA 09/18/2014 10/12/2014 Inactive meloxicam 7.5 mg tablet RxNorm: 737552 1 Tablet(s) PO daily 09/18/2014 03/10/2015 Inactive [SAVINGS FOR UNINSURED PATIENTS -- BIN:0 43937, PCN: ASPROD1, Group: AME08, ID# [id number], Process claim through WorkProducts, for questions: . THIS IS NOT INSURANCE.] sulfamethoxazole 800 mg-trimethoprim 160 mg tablet RxNorm: 531186 1 Tablet(s) PO BID 09/18/2014 10/07/2014 Inactive levothyroxine 175 mc g tablet RxNorm: 146496 1 Tablet(s) PO daily 09/17/2014 12/11/2014 Inactive levothyroxine 175 mc g tablet RxNorm: 692166 1 Tablet(s) PO daily 09/17/2014 09/16/2014 Inactive lorazepam 1 mg tablet RxNorm: 972392 Tablet(s) TAKE TWO TABLETS BY MOUTH AT B EDTIME, ALSO TAKE ONE TABLET BY MOUTH DAILY NEEDED 09/12/2014 10/11/2014 Inactive (Res ponse to an electronic controlled substance refill request - RxReferenceNumber: [id number]) lorazepam 1 mg tablet RxNorm: 788721 TAKE TWO TABLETS BY MOUTH AT BEDTIME, AL SO TAKE ONE TABLET BY MOUTH DAILY NEEDED 09/08/2014 09/11/2014 Inactive (Res ponse to an electronic controlled substance refill request - RxReferenceNumber: [id number]) meloxicam 7.5 mg tablet RxNorm: 637797 1 Tablet(s) PO daily 09/01/2014 09/17/2014 Inactive [SAVINGS FOR UNINSURED PATIENTS -- BIN:0 20231, PCN: ASPROD1, Group: AME08, ID# [id number], Process claim through MedImpact, for questions: . THIS IS NOT INSURANCE.] lisinopril 20 mg-hyd rochlorothiazide 25 mg tablet RxNorm: 512691 1 Tablet(s) PO daily 09/01/2014 12/29/2014 Inactive [SAVINGS FOR UNINSURED PATIENTS -- BIN:0 49128, PCN: ASPROD1, Group: AME08, ID# [id number], Process claim through MedImpact, for questions: . THIS IS NOT INSURANCE.] tramadol 50 mg tablet RxNorm: 976485 1 Tablet(s) PO Q4H as needed for pain 08/20/2014 11/07/2014 In active [SAVINGS FOR UNINSURED PATIENTS -- BIN:0 62316, PCN: ASPROD1, Group: AME08, ID# [id number], Process claim through MedImpact, for questions: . THIS IS NOT INSURANCE.] meloxicam 7.5 mg tablet RxNorm: 367726 1 Tablet(s) PO daily 08/14/2014 08/31/2014 Inactive [SAVINGS FOR UNINSURED PATIENTS -- BIN:0 10703, PCN: ASPROD1, Group: AME08, ID# [id number], Process claim through MedImpact, for questions: . THIS IS NOT INSURANCE.] lorazepam 1 mg tablet RxNorm: 374432 2 Tablet(s) PO QHS and 1 tab qd PRN 08/01/2014 09/08/2014 In active [SAVINGS FOR UNINSURED PATIENTS -- BIN:0 66248, PCN: ASPROD1, Group: AME08, ID# [id number], Process claim through WorkProducts, for questions: . THIS IS NOT INSURANCE.] levothyroxine 200 mc g tablet RxNorm: 332318 1 Tablet(s) PO daily 07/31/2014 09/16/2014 Inactive [SAVINGS FOR UNINSURED PATIENTS -- BIN:0 38386, PCN: ASPROD1, Group: AME08, ID# [id number], Process claim through WorkProducts, for questions: . THIS IS NOT INSURANCE.] lorazepam 1 mg tablet RxNorm: 799975 2 Tablet(s) PO QHS and 1 tab qd PRN No Start Date 07/31/2014 Inactive Phenergan VC-Codeine oral RxNorm: 138908 oral No S tart Date 11/26/2017 Inactive meloxicam 7.5 mg tablet RxNorm: 018820 1 Tablet(s) PO daily No Start Date 08/13/2014 Inactive lisinopril 20 mg-hyd rochlorothiazide 25 mg tablet RxNorm: 304977 1 Tablet(s) PO daily No Start Date 08/31/2014 Inactive levothyroxine 200 mc g tablet RxNorm: 883216 1 Tablet(s) PO daily No Start Date 07/30/2014 Inactive Diflucan 150 mg tablet RxNorm: 168436 1 Tablet(s) PO every other day No Start Date 10/22/2014 Inactive Zithromax Z-Linus 250 mg tablet RxNorm: 646809 1 Tablet(s) PO UD No Start Date 07/09/2015 Inactive tramadol 50 mg tablet RxNorm: 100081 1 Tablet(s) PO Q6 as needed No Start Date 08/19/2014 Inactive Medication Administered Medication Codes Instruc tions Start Date Status Kenalog 40 mg/mL suspension for injection RxNorm: 1246832 1Milliliter 06/14/2017 N o longer Active Kenalog 40 mg/mL suspension for injection RxNorm: 6681818 1Milliliter 03/27/2017 N o longer Active Kenalog 40 mg/mL suspension for injection RxNorm: 9326950 Milliliter 12/07/2016 No longer Active Kenalog 40 mg/mL suspension for injection RxNorm: 8769080 Milliliter 11/28/2016 No longer Active Immunizations Vaccine Codes Date Status Pneumococcal CVX: 33 09/1986 completed Tetanus, Diptheria, Pertussis CVX: 03/11/1987 completed Tetanus/Diptheria CVX: 03/11/1987 completed Influenza CVX: 141 03/11 completed Assessments Condition Codes Effectiv e Dates Mild intermittent asthma, uncomplicated ICD-10: J45.20 ICD-9: 493.90 05/23/2019 Diarrhea, unspecified ICD-10: R19.7 ICD-9: 787.91 05/23/2019 Other specified hypothyroidism ICD-1 0: E03.8 ICD-9: 244.8 05/23/2019 Other allergic rhinitis ICD-10: J30. 89 ICD-9: 477.8 05/07/2019 Other acute sinusitis ICD-10: J01.80 ICD-9: 461.8 05/07/2019 Herpesviral vesicular dermatitis ICD -10: B00.1 ICD-9: 054.9 05/07/2019 Pain in left knee ICD-10: M25.562 ICD-9: 719.46 04/29/2019 Other pruritus ICD-10: L29.8 ICD-9: 698.9 04/29/2019 Rash and other nonspecific skin eruption ICD-10: R21 ICD-9: 782.1 04/29/2019 Hypothyroidism, unspecified ICD-10: E03.9 ICD-9: 244.9 03/21/2019 Changes in skin texture ICD-10: R23. 4 ICD-9: 782.8 03/21/2019 Low back pain ICD-10: M54.5 ICD-9: 724.2 01/22/2019 Essential (primary) hypertension ICD -10: I10 ICD-9: 401.9 11/21/2018 Other mucopurulent conjunctivitis, left eye ICD-10: H10.022 ICD-9: 372.03 06/28/2018 Acute recurrent maxillary sinusitis ICD-10: J01.01 ICD-9: 461.0 06/28/2018 Other specified anemias ICD-10: D64. 89 ICD-9: 285.8 04/04/2018 Localized edema ICD-10: R60.0 ICD-9: 782.3 04/04/2018 Actinic keratosis ICD-10: L57.0 ICD-9: 702.0 01/19/2018 Mild persistent asthma, uncomplicated ICD-10: J45.30 ICD-9: 493.90 01/05/2018 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 ICD-9: 244.8 11/29/2017 Pain in left hip ICD-10: M25.552 ICD-9: 719.45 10/25/2017 Mild persistent asthma with (acute) exacerbation ICD-10: J45.31 ICD-9: 493.12 06/14/2017 Contusion of left wrist, initial encounter ICD-10: S60.212A ICD-9: 923.21 03/27/2017 Acute bronchitis due to other specified organisms ICD-10: J20.8 ICD-9: 466.0 11/15/2016 Tinea barbae and tinea capitis ICD-1 0: B35.0 ICD-9: 110.0 06/29/2016 Cellulitis of groin ICD-10: L03.314 ICD-9: 682.2 05/11/2016 Candidiasis of vulva and vagina ICD- 10: B37.3 ICD-9: 112.1 04/05/2016 Other obesity due to excess calories ICD-10: E66.09 ICD-9: 278.00 01/26/2016 Cutaneous abscess of face ICD-10: L0 2.01 ICD-9: 682.0 12/21/2015 Cutaneous abscess of groin ICD-10: L 02.214 ICD-9: 682.2 10/12/2015 Allergic rhinitis, unspecified ICD-1 0: J30.9 ICD-9: 477.9 08/24/2015 Skin infection ICD-9: 686.9 06/01/2015 Hypothyroidism ICD-9: 244.9 05/21/2015 ESSENTIAL HYPERTENSION ICD-9: 401.9 05/21/2015 Fingernail abnormalities ICD-9: 703.8 03/26/2015 Low back pain ICD-9: 724.2 12/11/2014 Lumbar spinal stenosis ICD-9: 724.02 09/18/2014 Hidradenitis suppurativa ICD-9: 705.83 09/18/2014 Reason For Visit Reason For Visit Effective Dates Notes hypothyroid 05/23/2019 sore throat 05/07/2019 rash 04/29/2019 mole check 03/21/2019 hypertension 01/22/2019 hypertension 10/30/2018 eye erythema 06/28/2018 hypertension 04/04/2018 office procedure 01/19/2018 cryotherapy oral lesion 01/05/2018 back pain 11/29/2017 hip pain 10/25/2017 edema 09/12/2017 shortness of breath 06/14/2017 edema 05/10/2017 wheezing 04/19/2017 wheezing 03/27/2017 back pain 01/26/2017 cough 12/07/2016 nasal allergies 11/28/2016 cough 11/15/2016 sinus congestion 10/17/2016 hypertension 09/28/2016 ~generic 06/29/2016 dry scalp hypertension 06/01/2016 sores 05/11/2016 sinus congestion 04/05/2016 sinus congestion 04/01/2016 back pain 01/26/2016 cough 12/21/2015 cyst 10/12/2015 hypothyroid 08/24/2015 skin lesion 06/01/2015 hypothyroid 05/21/2015 pain 03/26/2015 hypothyroid 03/11/2015 Hospital Follow Up 12/11/2014 back pain 09/18/2014 low er- pt has L4 L5 bulge with narrowing of spinal canal/ DJD changes per pt back pain 07/31/2014 low er- pt has L4 L5 bulge with narrowing of spinal canal/ DJD changes per pt going to see Dr Lincoln Results Observation Observation Code Item Item Code Result Date Tsh Ord6 TSH (3rd IS) 0.66 uIU/mL 03/21/2019 Cbc With Differential Ord2 WBC 5.22 K/ul 03/21/2019 Cbc With Differential Ord2 RBC 4.28 M/ul 03/21/2019 Cbc With Differential Ord2 HGB 12.7 g/dl 03/21/2019 Cbc With Differential Ord2 Neut% 57.3 % 03/21/2019 Cbc With Differential Ord2 HCT 38.7 % 03/21/2019 Cbc With Differential Ord2 MCV 90.4 fl 03/21/2019 Cbc With Differential Ord2 Lymph% 28.9 % 03/21/2019 Cbc With Differential Ord2 MCH 29.7 pg 03/21/2019 Cbc With Differential Ord2 Izard% 10.5 % 03/21/2019 Cbc With Differential Ord2 MCHC 32.8 pg 03/21/2019 Cbc With Differential Ord2 Eos% 2.9 % 03/21/2019 Cbc With Differential Ord2 Baso% 0.4 % 03/21/2019 Cbc With Differential Ord2 PLT 227 K/ul 03/21/2019 Cbc With Differential Ord2 Neut ABS# 2.99 K/ul 03/21/2019 Cbc With Differential Ord2 RDW 14.1 % 03/21/2019 Cbc With Differential Ord2 Lymph ABS# 1.51 K/ul 03/21/2019 Cbc With Differential Ord2 Izard ABS# 0.6 K/ul 03/21/2019 Cbc With Differential Ord2 Eos ABS# 0.2 K/ul 03/21/2019 Cbc With Differential Ord2 Baso ABS# 0.0 K/ul 03/21/2019 Free T4 Xub253 FREE T4 1.52 ng/dL 03/21/2019 Comp Metabolic Kya871 NA 141 mEq/L 03/21/2019 Comp Metabolic Sqg928 K 3.9 mEq/L 03/21/2019 Comp Metabolic Ljw120 CL 107 mEq/L 03/21/2019 Comp Metabolic Eev599 CO2 26.0 mEq/L 03/21/2019 Comp Metabolic Onc284 AN ION GAP 12 03/21/2019 Comp Metabolic Gbt578 GL UCOSE 111 mg/dL 03/21/2019 Comp Metabolic Gqa989 Cr eat 0.8 mg/dL 03/21/2019 Comp Metabolic Onl654 eG FR 77 ml/min/1.73m2 03/21 Comp Metabolic Rcx658 BUN 14 mg/dL 03/21/2019 Comp Metabolic Aph496 B/ C Ratio 18.2 Ratio 03/21/2019 Comp Metabolic Upb261 CA LCIUM 9.2 mg/dL 03/21/2019 Comp Metabolic Hrq747 AL K PHOS 68 U/L 03/21/2019 Comp Metabolic Djl114 T(SGOT) 11 U/L 03/21/2019 Comp Metabolic Knu298 AL T(SGPT) 8 U/L 03/21/2019 Comp Metabolic Xhh594 BI LI T 0.5 mg/dL 03/21/2019 Comp Metabolic Lik559 AL BUMIN 4.1 g/dL 03/21/2019 Comp Metabolic Ago178 TP RO 6.3 g/dL 03/21/2019 Comp Metabolic Ket500 GL OB 2.2 g/dL 03/21/2019 Comp Metabolic Sxd902 A/ G Ratio 1.9 Ratio 03/21/2019 Comp Metabolic Jjn013 Os mo 282 mOsmo 03/21/2019 Tsh Ord6 TSH (3rd IS) 1.49 uIU/mL 01/21/2019 Free T4 Fer303 FREE T4 1.15 ng/dL 01/21/2019 Lipid Ord30 CHOL 231 mg/dL 10/24/2018 Lipid Ord30 HDL 56.0 mg/dl 10/24/2018 Lipid Ord30 TRIG 71 mg/dL 10/24/2018 Lipid Ord30 LDL 161 mg/dL 10/24/2018 Lipid Ord30 C/HDL 4.1 Ratio 10/24/2018 Comp Metabolic Nvc407 NA 141 mEq/L 10/24/2018 Comp Metabolic Qcf134 K 3.7 mEq/L 10/24/2018 Comp Metabolic Adt702 CL 103 mEq/L 10/24/2018 Comp Metabolic Mla597 CO2 30.0 mEq/L 10/24/2018 Comp Metabolic Nga044 AN ION GAP 12 10/24/2018 Comp Metabolic Yld764 GL UCOSE 98 mg/dL 10/24/2018 Comp Metabolic Tbx720 Cr eat 0.8 mg/dL 10/24/2018 Comp Metabolic Jwu230 eG FR 71 ml/min/1.73m2 10/24 Comp Metabolic Vhm884 BUN 12 mg/dL 10/24/2018 Comp Metabolic Lxj872 B/ C Ratio 14.5 Ratio 10/24/2018 Comp Metabolic Loz216 CA LCIUM 9.2 mg/dL 10/24/2018 Comp Metabolic Jdn254 AL K PHOS 76 U/L 10/24/2018 Comp Metabolic Oaf524 T(SGOT) 12 U/L 10/24/2018 Comp Metabolic Aet628 AL T(SGPT) 9 U/L 10/24/2018 Comp Metabolic Ggn716 BI LI T 0.5 mg/dL 10/24/2018 Comp Metabolic Bsk737 AL BUMIN 4.3 g/dL 10/24/2018 Comp Metabolic Rvo707 TP RO 6.5 g/dL 10/24/2018 Comp Metabolic Lcw651 GL OB 2.2 g/dL 10/24/2018 Comp Metabolic Hyu093 A/ G Ratio 2.0 Ratio 10/24/2018 Comp Metabolic Rpp605 Os mo 281 mOsmo 10/24/2018 Free T4 Kiz696 FREE T4 0.76 ng/dL 10/24/2018 Cbc With Differential Ord2 WBC 4.78 K/ul 10/24/2018 Cbc With Differential Ord2 RBC 4.30 M/ul 10/24/2018 Cbc With Differential Ord2 HGB 13.1 g/dl 10/24/2018 Cbc With Differential Ord2 HCT 39.1 % 10/24/2018 Cbc With Differential Ord2 Neut% 53.1 % 10/24/2018 Cbc With Differential Ord2 MCV 90.9 fl 10/24/2018 Cbc With Differential Ord2 Lymph% 35.8 % 10/24/2018 Cbc With Differential Ord2 MCH 30.5 pg 10/24/2018 Cbc With Differential Ord2 Izard% 8.4 % 10/24/2018 Cbc With Differential Ord2 MCHC 33.5 pg 10/24/2018 Cbc With Differential Ord2 Eos% 2.3 % 10/24/2018 Cbc With Differential Ord2 PLT 229 K/ul 10/24/2018 Cbc With Differential Ord2 Baso% 0.4 % 10/24/2018 Cbc With Differential Ord2 RDW 14.0 % 10/24/2018 Cbc With Differential Ord2 Neut ABS# 2.54 K/ul 10/24/2018 Cbc With Differential Ord2 Lymph ABS# 1.71 K/ul 10/24/2018 Cbc With Differential Ord2 Izard ABS# 0.4 K/ul 10/24/2018 Cbc With Differential Ord2 Eos ABS# 0.1 K/ul 10/24/2018 Cbc With Differential Ord2 Baso ABS# 0.0 K/ul 10/24/2018 Tsh Ord6 TSH (3rd IS) 38.11 uIU/mL 10/24/2018 Cbc With Differential Ord2 WBC 5.03 K/ul 04/04/2018 Cbc With Differential Ord2 RBC 4.06 M/ul 04/04/2018 Cbc With Differential Ord2 HGB 12.2 g/dl 04/04/2018 Cbc With Differential Ord2 HCT 37.5 % 04/04/2018 Cbc With Differential Ord2 Neut% 57.7 % 04/04/2018 Cbc With Differential Ord2 MCV 92.4 fl 04/04/2018 Cbc With Differential Ord2 Lymph% 28.2 % 04/04/2018 Cbc With Differential Ord2 MCH 30.0 pg 04/04/2018 Cbc With Differential Ord2 Izard% 10.9 % 04/04/2018 Cbc With Differential Ord2 MCHC 32.5 pg 04/04/2018 Cbc With Differential Ord2 Eos% 2.8 % 04/04/2018 Cbc With Differential Ord2 PLT 221 K/ul 04/04/2018 Cbc With Differential Ord2 Baso% 0.4 % 04/04/2018 Cbc With Differential Ord2 RDW 14.6 % 04/04/2018 Cbc With Differential Ord2 Neut ABS# 2.90 K/ul 04/04/2018 Cbc With Differential Ord2 Lymph ABS# 1.42 K/ul 04/04/2018 Cbc With Differential Ord2 Izard ABS# 0.6 K/ul 04/04/2018 Cbc With Differential Ord2 Eos ABS# 0.1 K/ul 04/04/2018 Cbc With Differential Ord2 Baso ABS# 0.0 K/ul 04/04/2018 Free T4 Pue021 FREE T4 1.25 ng/dL 04/04/2018 Tsh Ord6 TSH (3rd IS) 3.43 uIU/mL 04/04/2018 Cbc With Differential Ord2 WBC 5.13 K/ul 11/28/2017 Cbc With Differential Ord2 RBC 3.98 M/ul 11/28/2017 Cbc With Differential Ord2 HGB 12.0 g/dl 11/28/2017 Cbc With Differential Ord2 HCT 36.8 % 11/28/2017 Cbc With Differential Ord2 Neut% 61.1 % 11/28/2017 Cbc With Differential Ord2 MCV 92.5 fl 11/28/2017 Cbc With Differential Ord2 Lymph% 25.9 % 11/28/2017 Cbc With Differential Ord2 MCH 30.2 pg 11/28/2017 Cbc With Differential Ord2 Izard% 10.1 % 11/28/2017 Cbc With Differential Ord2 MCHC 32.6 pg 11/28/2017 Cbc With Differential Ord2 Eos% 2.5 % 11/28/2017 Cbc With Differential Ord2 PLT 220 K/ul 11/28/2017 Cbc With Differential Ord2 Baso% 0.4 % 11/28/2017 Cbc With Differential Ord2 RDW 14.3 % 11/28/2017 Cbc With Differential Ord2 Neut ABS# 3.13 K/ul 11/28/2017 Cbc With Differential Ord2 Lymph ABS# 1.33 K/ul 11/28/2017 Cbc With Differential Ord2 Izard ABS# 0.5 K/ul 11/28/2017 Cbc With Differential Ord2 Eos ABS# 0.1 K/ul 11/28/2017 Cbc With Differential Ord2 Baso ABS# 0.0 K/ul 11/28/2017 Free T4 Jbt012 FREE T4 1.43 ng/dL 11/28/2017 Lipid Ord30 CHOL 186 mg/dL 11/28/2017 Lipid Ord30 HDL 54.0 mg/dl 11/28/2017 Lipid Ord30 TRIG 59 mg/dL 11/28/2017 Lipid Ord30 LDL 120 mg/dL 11/28/2017 Lipid Ord30 C/HDL 3.4 Ratio 11/28/2017 Comp Metabolic Xto078 NA 141 mEq/L 11/28/2017 Comp Metabolic Kho536 K 4.0 mEq/L 11/28/2017 Comp Metabolic Aux693 CL 105 mEq/L 11/28/2017 Comp Metabolic Vms980 CO2 29.0 mEq/L 11/28/2017 Comp Metabolic Mgp421 AN ION GAP 11 11/28/2017 Comp Metabolic Yyz016 GL UCOSE 91 mg/dL 11/28/2017 Comp Metabolic Hqi413 Cr eat 0.8 mg/dL 11/28/2017 Comp Metabolic Vsu071 eG FR 74 ml/min/1.73m2 11/28 Comp Metabolic Qld670 BUN 15 mg/dL 11/28/2017 Comp Metabolic Jgx371 B/ C Ratio 18.8 Ratio 11/28/2017 Comp Metabolic Oim215 CA LCIUM 8.6 mg/dL 11/28/2017 Comp Metabolic Mnz527 AL K PHOS 76 U/L 11/28/2017 Comp Metabolic Ndc129 T(SGOT) 10 U/L 11/28/2017 Comp Metabolic Tvg768 AL T(SGPT) 8 U/L 11/28/2017 Comp Metabolic Rzu202 BI LI T 0.5 mg/dL 11/28/2017 Comp Metabolic Tgu974 AL BUMIN 4.0 g/dL 11/28/2017 Comp Metabolic Hhm275 TP RO 6.1 g/dL 11/28/2017 Comp Metabolic Wrl516 GL OB 2.1 g/dL 11/28/2017 Comp Metabolic Gld382 A/ G Ratio 1.9 Ratio 11/28/2017 Comp Metabolic Dds368 Os mo 282 mOsmo 11/28/2017 Tsh Ord6 TSH (3rd IS) 3.31 uIU/mL 11/28/2017 Tsh Ord6 hTSH II 1.45 uIU/mL 03/27/2017 Free T4 Zyx923 FREE T4 1.23 ng/dL 03/27/2017 Comp Metabolic Luf116 NA 140 mEq/L 09/28/2016 Comp Metabolic Hzq294 K 3.9 mEq/L 09/28/2016 Comp Metabolic Uwy593 CL 104 mEq/L 09/28/2016 Comp Metabolic Iqv124 CO2 28.0 mEq/L 09/28/2016 Comp Metabolic Qny216 AN ION GAP 12 09/28/2016 Comp Metabolic Ikg121 GL UCOSE 97 mg/dL 09/28/2016 Comp Metabolic Yzg422 Cr eat 0.8 mg/dL 09/28/2016 Comp Metabolic Ogc894 eG FR 79 ml/min/1.73m2 09/28 Comp Metabolic Xvw276 BUN 13 mg/dL 09/28/2016 Comp Metabolic Rnv951 B/ C Ratio 17.1 Ratio 09/28/2016 Comp Metabolic Agf083 CA LCIUM 8.9 mg/dL 09/28/2016 Comp Metabolic Lmr345 AL K PHOS 100 U/L 09/28/2016 Comp Metabolic Eym459 T(SGOT) 12 U/L 09/28/2016 Comp Metabolic Yll130 AL T(SGPT) 9 U/L 09/28/2016 Comp Metabolic Ryh600 BI LI T 0.4 mg/dL 09/28/2016 Comp Metabolic Goi052 AL BUMIN 4.1 g/dL 09/28/2016 Comp Metabolic Isz634 TP RO 6.6 g/dL 09/28/2016 Comp Metabolic Gbp754 GL OB 2.5 g/dL 09/28/2016 Comp Metabolic Ips035 A/ G Ratio 1.6 Ratio 09/28/2016 Comp Metabolic Wba934 Os mo 279 mOsmo 09/28/2016 Lipid Ord30 CHOL 194 mg/dL 09/28/2016 Lipid Ord30 HDL 60.0 mg/dl 09/28/2016 Lipid Ord30 TRIG 71 mg/dL 09/28/2016 Lipid Ord30 LDL 120 mg/dL 09/28/2016 Lipid Ord30 C/HDL 3.2 Ratio 09/28/2016 Cbc With Differential Ord2 WBC 6.55 K/ul 09/28/2016 Cbc With Differential Ord2 RBC 4.68 M/ul 09/28/2016 Cbc With Differential Ord2 HGB 13.5 g/dl 09/28/2016 Cbc With Differential Ord2 HCT 40.9 % 09/28/2016 Cbc With Differential Ord2 Neut% 68.6 % 09/28/2016 Cbc With Differential Ord2 MCV 87.4 fl 09/28/2016 Cbc With Differential Ord2 Lymph% 21.5 % 09/28/2016 Cbc With Differential Ord2 MCH 28.8 pg 09/28/2016 Cbc With Differential Ord2 Izard% 7.2 % 09/28/2016 Cbc With Differential Ord2 MCHC 33.0 pg 09/28/2016 Cbc With Differential Ord2 Eos% 2.4 % 09/28/2016 Cbc With Differential Ord2 PLT 232 K/ul 09/28/2016 Cbc With Differential Ord2 Baso% 0.3 % 09/28/2016 Cbc With Differential Ord2 RDW 14.2 % 09/28/2016 Cbc With Differential Ord2 Neut ABS# 4.49 K/ul 09/28/2016 Cbc With Differential Ord2 Lymph ABS# 1.41 K/ul 09/28/2016 Cbc With Differential Ord2 Izard ABS# 0.5 K/ul 09/28/2016 Cbc With Differential Ord2 Eos ABS# 0.2 K/ul 09/28/2016 Cbc With Differential Ord2 Baso ABS# 0.0 K/ul 09/28/2016 Free T4 [id number] FREE T4 1.43 ng/dL 09/28/2016 Tsh Ord6 hTSH II 0.52 uIU/mL 09/28/2016 Tsh Ord6 hTSH II 0.47 uIU/mL 06/16/2016 Comp Metabolic Tlj000 NA 139 mEq/L 06/16/2016 Comp Metabolic Uoz691 K 4.3 mEq/L 06/16/2016 Comp Metabolic Fsv648 CL 105 mEq/L 06/16/2016 Comp Metabolic Zlx237 CO2 30.0 mEq/L 06/16/2016 Comp Metabolic Dng655 AN ION GAP 8 06/16/2016 Comp Metabolic Lms316 GL UCOSE 90 mg/dL 06/16/2016 Comp Metabolic Hql789 Cr eat 0.7 mg/dL 06/16/2016 Comp Metabolic Ctp797 eG FR 91 ml/min/1.73m2 06/16 Comp Metabolic Ioq084 BUN 15 mg/dL 06/16/2016 Comp Metabolic Lzw088 B/ C Ratio 22.4 Ratio 06/16/2016 Comp Metabolic Aon590 CA LCIUM 8.8 mg/dL 06/16/2016 Comp Metabolic Kac770 AL K PHOS 79 U/L 06/16/2016 Comp Metabolic Uub559 T(SGOT) 13 U/L 06/16/2016 Comp Metabolic Ddb509 AL T(SGPT) 11 U/L 06/16/2016 Comp Metabolic Mns505 BI LI T 0.5 mg/dL 06/16/2016 Comp Metabolic Jda268 AL BUMIN 3.9 g/dL 06/16/2016 Comp Metabolic Vmb097 TP RO 6.1 g/dL 06/16/2016 Comp Metabolic Oci130 GL OB 2.2 g/dL 06/16/2016 Comp Metabolic Qww642 A/ G Ratio 1.8 Ratio 06/16/2016 Comp Metabolic Wqw238 Os mo 278 mOsmo 06/16/2016 Lipid Ord30 CHOL 198 mg/dL 06/16/2016 Lipid Ord30 HDL 54.0 mg/dl 06/16/2016 Lipid Ord30 TRIG 58 mg/dL 06/16/2016 Lipid Ord30 LDL 132 mg/dL 06/16/2016 Lipid Ord30 C/HDL 3.7 Ratio 06/16/2016 Cbc With Differential Ord2 WBC 5.42 K/ul 06/16/2016 Cbc With Differential Ord2 RBC 4.70 M/ul 06/16/2016 Cbc With Differential Ord2 HGB 13.6 g/dl 06/16/2016 Cbc With Differential Ord2 HCT 40.9 % 06/16/2016 Cbc With Differential Ord2 Neut% 57.5 % 06/16/2016 Cbc With Differential Ord2 MCV 87.0 fl 06/16/2016 Cbc With Differential Ord2 Lymph% 31.4 % 06/16/2016 Cbc With Differential Ord2 MCH 28.9 pg 06/16/2016 Cbc With Differential Ord2 Izard% 8.1 % 06/16/2016 Cbc With Differential Ord2 MCHC 33.3 pg 06/16/2016 Cbc With Differential Ord2 Eos% 2.8 % 06/16/2016 Cbc With Differential Ord2 PLT 230 K/ul 06/16/2016 Cbc With Differential Ord2 Baso% 0.2 % 06/16/2016 Cbc With Differential Ord2 RDW 15.0 % 06/16/2016 Cbc With Differential Ord2 Neut ABS# 3.12 K/ul 06/16/2016 Cbc With Differential Ord2 Lymph ABS# 1.70 K/ul 06/16/2016 Cbc With Differential Ord2 Izard ABS# 0.4 K/ul 06/16/2016 Cbc With Differential Ord2 Eos ABS# 0.2 K/ul 06/16/2016 Cbc With Differential Ord2 Baso ABS# 0.0 K/ul 06/16/2016 Free T4 Mqo200 FREE T4 1.42 ng/dL 06/16/2016 Free T4 Qzh129 FREE T4 1.34 ng/dL 03/04/2016 Tsh Ord6 hTSH II 0.56 uIU/mL 03/04/2016 Tsh Ord6 hTSH II 0.98 uIU/mL 01/27/2016 Free T4 Xkw437 FREE T4 1.19 ng/dL 01/27/2016 Free T4 Jyw319 FREE T4 1.69 ng/dL 11/23/2015 Tsh Ord6 hTSH II 0.08 uIU/mL 11/23/2015 Lipid Ord30 CHOL 185 mg/dL 08/21/2015 Lipid Ord30 HDL 50.0 mg/dl 08/21/2015 Lipid Ord30 TRIG 88 mg/dL 08/21/2015 Lipid Ord30 LDL 117 mg/dL 08/21/2015 Lipid Ord30 C/HDL 3.7 Ratio 08/21/2015 Comp Metabolic Qcq047 NA 139 mEq/L 08/21/2015 Comp Metabolic Jhs948 K 4.3 mEq/L 08/21/2015 Comp Metabolic Fcj571 CL 102 mEq/L 08/21/2015 Comp Metabolic Saa931 CO2 27.0 mEq/L 08/21/2015 Comp Metabolic Zii433 AN ION GAP 14 08/21/2015 Comp Metabolic Wds160 GL UCOSE 89 mg/dL 08/21/2015 Comp Metabolic Bjx414 Cr eat 0.7 mg/dL 08/21/2015 Comp Metabolic Kgh722 eG FR 85 ml/min/1.73m2 08/21 Comp Metabolic Ijn127 BUN 14 mg/dL 08/21/2015 Comp Metabolic Qzm428 B/ C Ratio 19.7 Ratio 08/21/2015 Comp Metabolic Tod821 CA LCIUM 9.5 mg/dL 08/21/2015 Comp Metabolic Flu235 AL K PHOS 123 U/L 08/21/2015 Comp Metabolic Mfw951 T(SGOT) 13 U/L 08/21/2015 Comp Metabolic Bxa389 AL T(SGPT) 10 U/L 08/21/2015 Comp Metabolic Wdv022 BI LI T 0.4 mg/dL 08/21/2015 Comp Metabolic Qnr602 AL BUMIN 4.1 g/dL 08/21/2015 Comp Metabolic Iqf114 TP RO 6.8 g/dL 08/21/2015 Comp Metabolic Ipn173 GL OB 2.7 g/dL 08/21/2015 Comp Metabolic Idc551 A/ G Ratio 1.5 Ratio 08/21/2015 Comp Metabolic Mkq576 Os mo 277 mOsmo 08/21/2015 Free T4 Hpb679 FREE T4 1.78 ng/dL 08/21/2015 Tsh Ord6 hTSH II 0.07 uIU/mL 08/21/2015 Cbc With Differential Ord2 WBC 5.3 K/uL 08/21/2015 Cbc With Differential Ord2 LYM 1.6 K/uL 08/21/2015 Cbc With Differential Ord2 LYM% 30.7 % 08/21/2015 Cbc With Differential Ord2 NEUT/GRAN 3.3 K/uL 08/21/2015 Cbc With Differential Ord2 NEUT/GRAN % 63.0 % 08/21/2015 Cbc With Differential Ord2 MID 0.3 K/uL 08/21/2015 Cbc With Differential Ord2 MID% 6.3 % 08/21/2015 Cbc With Differential Ord2 RBC 4.86 M/uL 08/21/2015 Cbc With Differential Ord2 HGB 13.4 g/dL 08/21/2015 Cbc With Differential Ord2 HCT 42.8 % 08/21/2015 Cbc With Differential Ord2 MCV 88 fL 08/21/2015 Cbc With Differential Ord2 MCH 28 pg 08/21/2015 Cbc With Differential Ord2 MCHC 31 g/dL 08/21/2015 Cbc With Differential Ord2 PLT 185 K/uL 08/21/2015 Cbc With Differential Ord2 RDW 13.9 % 08/21/2015 Quick Strep [id number] Quic k Strep Negative 07/08/2015 Tsh Ord6 hTSH II 0.04 uIU/mL 05/20/2015 Free T4 Mrc175 FREE T4 1.50 ng/dL 05/20/2015 Review of Systems System Result Effective Dates Constitutional No recent illness 05/23/2019 Constitutional No night sweats 05/23/2019 Constitutional No chills 05/23/2019 Constitutional No diaphoresis 05/23/2019 Constitutional No fatigue 05/23/2019 Constitutional No fever 05/23/2019 Constitutional No insomnia 05/23/2019 Constitutional No malaise 05/23/2019 Constitutional No weight loss 05/23/2019 Constitutional No weight gain 05/23/2019 Eyes No eye discharge Eyes No eye erythema 08/2019 Ears/Nose/Throat/Neck No dry mouth 05/23/2019 Ears/Nose/Throat/Neck No dizziness 05/23/2019 Ears/Nose/Throat/Neck No dysphagia 05/23/2019 Ears/Nose/Throat/Neck No nasal allergies 05/23/2019 Ears/Nose/Throat/Neck No nasal discharge 05/23/2019 Ears/Nose/Throat/Neck No sore throat 05/23/2019 Cardiovascular No arrhythmia 05/23/2019 Cardiovascular No chest pain/pressure 05/23/2019 Cardiovascular No dyspnea 05/23/2019 Cardiovascular No edema 05/23/2019 Respiratory No electronic cigarettes/Vapor 05/23/2019 Respiratory No asthma Respiratory No pleuritic pain 05/23/2019 Respiratory No productive sputum 05/23/2019 Respiratory No chest tightness 05/23/2019 Respiratory No cigarette smoking 05/23/2019 Respiratory No cough 08/2019 Respiratory No dyspnea 0 05/23/2019 Respiratory No pedal edema 05/23/2019 Respiratory No snoring 0 05/23/2019 Respiratory No wheezing 05/23/2019 Gastrointestinal No hemorrhoids 05/23/2019 Gastrointestinal No abdominal pain 05/23/2019 Gastrointestinal No constipation 05/23/2019 Gastrointestinal diarrhea 05/23/2019 Gastrointestinal No gastroesophageal reflu x 05/23/2019 Gastrointestinal No melena 05/23/2019 Gastrointestinal No nausea 05/23/2019 Gastrointestinal No vomiting 05/23/2019 Genitourinary/Nephrology No vaginal drynes s 05/23/2019 Genitourinary/Nephrology No dysuria 05/23/2019 Genitourinary/Nephrology No nocturia 05/23/2019 Genitourinary/Nephrology No urinary incontinence 05/23/2019 Musculoskeletal No stiffness 05/23/2019 Musculoskeletal No swelling 05/23/2019 Musculoskeletal No muscle weakness 05/23/2019 Musculoskeletal No myalgias 05/23/2019 Dermatologic No pruritus 05/23/2019 Dermatologic No rash 08/2019 Dermatologic No scar 08/2019 Neurologic No dizziness 05/23/2019 Neurologic No headache 0 05/23/2019 Neurologic No neck pain 05/23/2019 Neurologic No syncope Psychiatric No confusion 05/23/2019 Psychiatric No anxiety 0 05/23/2019 Psychiatric No depression 05/23/2019 Dermatologic seborrheic keratosis 05/23/2019 Constitutional No anorexia 05/23/2019 Ears/Nose/Throat/Neck No headache 05/23/2019 Constitutional recent illness 05/07/2019 Constitutional No chills 05/07/2019 Constitutional No diaphoresis 05/07/2019 Constitutional No fever 05/07/2019 Eyes No eye erythema Ears/Nose/Throat/Neck nasal allergies 05/07/2019 Ears/Nose/Throat/Neck nasal discharge 05/07/2019 Ears/Nose/Throat/Neck postnasal drip 05/07/2019 Ears/Nose/Throat/Neck sinus congestion 05/07/2019 Ears/Nose/Throat/Neck No sore throat 05/07/2019 Cardiovascular No chest pain/pressure 05/07/2019 Cardiovascular No dyspnea 05/07/2019 Respiratory No chest congestion 05/07/2019 Respiratory cough 2018 Respiratory No dyspnea 0 05/07/2019 Gastrointestinal No abdominal pain 05/07/2019 Gastrointestinal No constipation 05/07/2019 Gastrointestinal No diarrhea 05/07/2019 Gastrointestinal No nausea 05/07/2019 Gastrointestinal No vomiting 05/07/2019 Dermatologic No rash Neurologic No alteration of consciousness 05/07/2019 Neurologic No mental status change 05/07/2019 Ears/Nose/Throat/Neck oral lesion 05/07/2019 Constitutional No recent illness 04/29/2019 Constitutional No chills 04/29/2019 Constitutional No diaphoresis 04/29/2019 Constitutional No fever 04/29/2019 Eyes No eye erythema Ears/Nose/Throat/Neck No nasal discharge 04/29/2019 Cardiovascular No chest pain/pressure 04/29/2019 Respiratory No cough Neurologic No alteration of consciousness 04/29/2019 Neurologic No mental status change 04/29/2019 Dermatologic sores 04/29 Dermatologic rash 2018 Musculoskeletal joint complaint 04/29/2019 Constitutional No recent illness 03/21/2019 Constitutional No night sweats 03/21/2019 Constitutional No chills 03/21/2019 Constitutional No diaphoresis 03/21/2019 Constitutional No fatigue 03/21/2019 Constitutional No fever 03/21/2019 Constitutional No insomnia 03/21/2019 Constitutional No malaise 03/21/2019 Constitutional No weight loss 03/21/2019 Constitutional No weight gain 03/21/2019 Constitutional No obesity 03/21/2019 Eyes No blindness 2018 Eyes No eye discharge Eyes No eye erythema 07/2019 Eyes No eye floaters 07/2019 Eyes No eye foreign body 03/21/2019 Eyes No eye pain 019 Eyes No eye tearing 03/11 Eyes No eye trauma 03/21 Eyes No eyelid edema 07/2019 Eyes No eyelid erythema 03/21/2019 Eyes No eyelid pain 03/11 Eyes No photophobia 03/11 Eyes No vision change Eyes No amblyopia 2018 Eyes No cataract 019 Eyes No glaucoma 019 Eyes No macular degeneration 03/21/2019 Ears/Nose/Throat/Neck No dry mouth 03/21/2019 Ears/Nose/Throat/Neck No dental pain 03/21/2019 Ears/Nose/Throat/Neck No dizziness 03/21/2019 Ears/Nose/Throat/Neck No dysphagia 03/21/2019 Ears/Nose/Throat/Neck No headache 03/21/2019 Ears/Nose/Throat/Neck No hearing loss 03/21/2019 Ears/Nose/Throat/Neck No nasal allergies 03/21/2019 Ears/Nose/Throat/Neck No nasal discharge 03/21/2019 Ears/Nose/Throat/Neck No postnasal drip 03/21/2019 Ears/Nose/Throat/Neck No sinus congestion 03/21/2019 Ears/Nose/Throat/Neck No sore throat 03/21/2019 Cardiovascular No arrhythmia 03/21/2019 Cardiovascular No chest pain/pressure 03/21/2019 Cardiovascular No dyspnea 03/21/2019 Cardiovascular No edema 03/21/2019 Cardiovascular No exercise intolerance 03/21/2019 Cardiovascular No fatigue 03/21/2019 Cardiovascular No near-syncope/dizziness 03/21/2019 Cardiovascular No orthopnea 03/21/2019 Cardiovascular No palpitations 03/21/2019 Respiratory No electronic cigarettes/Vapor 03/21/2019 Respiratory No asthma Respiratory No pleuritic pain 03/21/2019 Respiratory No productive sputum 03/21/2019 Respiratory No chest tightness 03/21/2019 Respiratory No cigarette smoking 03/21/2019 Respiratory No cough 07/2019 Respiratory No dyspnea 0 03/21/2019 Respiratory No pedal edema 03/21/2019 Respiratory No snoring 0 03/21/2019 Respiratory No wheezing 03/21/2019 Gastrointestinal No hemorrhoids 03/21/2019 Gastrointestinal No abdominal pain 03/21/2019 Gastrointestinal No constipation 03/21/2019 Gastrointestinal No diarrhea 03/21/2019 Gastrointestinal No gastroesophageal reflu x 03/21/2019 Gastrointestinal No melena 03/21/2019 Gastrointestinal No nausea 03/21/2019 Gastrointestinal No vomiting 03/21/2019 Genitourinary/Nephrology No dysuria 03/21/2019 Genitourinary/Nephrology No nocturia 03/21/2019 Genitourinary/Nephrology No urinary incontinence 03/21/2019 Musculoskeletal No stiffness 03/21/2019 Musculoskeletal No swelling 03/21/2019 Musculoskeletal No muscle weakness 03/21/2019 Musculoskeletal No myalgias 03/21/2019 Dermatologic No pruritus 03/21/2019 Dermatologic No rash 07/2019 Dermatologic No scar 07/2019 Dermatologic skin cancer 03/21/2019 Dermatologic seborrheic keratosis 03/21/2019 Neurologic No alteration of consciousness 03/21/2019 Psychiatric No depression 03/21/2019 Endocrine No dry or coarse skin 03/21/2019 Endocrine No hair loss 0 03/21/2019 Hematologic/Lymphatic No abnormal ec chymoses 03/21/2019 Constitutional No recent illness 01/22/2019 Constitutional No anorexia 01/22/2019 Constitutional No night sweats 01/22/2019 Constitutional No chills 01/22/2019 Constitutional No diaphoresis 01/22/2019 Constitutional fatigue 0 01/22/2019 Constitutional No fever 01/22/2019 Constitutional No insomnia 01/22/2019 Constitutional No malaise 01/22/2019 Constitutional No weight gain 01/22/2019 Eyes No eye discharge Eyes No eye erythema Ears/Nose/Throat/Neck No dizziness 01/22/2019 Ears/Nose/Throat/Neck No headache 01/22/2019 Cardiovascular No chest pain/pressure 01/22/2019 Respiratory No productive sputum 01/22/2019 Respiratory No chest congestion 01/22/2019 Respiratory No cough Respiratory dyspnea on exertion 01/22/2019 Gastrointestinal No abdominal pain 01/22/2019 Gastrointestinal No constipation 01/22/2019 Gastrointestinal No diarrhea 01/22/2019 Genitourinary/Nephrology No dysuria 01/22/2019 Musculoskeletal back pain 01/22/2019 Neurologic No alteration of consciousness 01/22/2019 Psychiatric anxiety 01/09 Endocrine No cold sensitivity 01/22/2019 Respiratory asthma 01/22 Constitutional No recent illness 10/30/2018 Constitutional No anorexia 10/30/2018 Constitutional No night sweats 10/30/2018 Constitutional No chills 10/30/2018 Constitutional No diaphoresis 10/30/2018 Constitutional fatigue 0 10/30/2018 Constitutional No fever 10/30/2018 Constitutional No insomnia 10/30/2018 Constitutional No malaise 10/30/2018 Eyes No eye discharge Eyes No eye erythema Ears/Nose/Throat/Neck No dizziness 10/30/2018 Ears/Nose/Throat/Neck No headache 10/30/2018 Cardiovascular No chest pain/pressure 10/30/2018 Respiratory No productive sputum 10/30/2018 Respiratory No chest congestion 10/30/2018 Respiratory No cough Respiratory dyspnea on exertion 10/30/2018 Gastrointestinal No abdominal pain 10/30/2018 Gastrointestinal No constipation 10/30/2018 Gastrointestinal No diarrhea 10/30/2018 Genitourinary/Nephrology No dysuria 10/30/2018 Musculoskeletal back pain 10/30/2018 Neurologic No alteration of consciousness 10/30/2018 Psychiatric anxiety 10/12 Endocrine No cold sensitivity 10/30/2018 Constitutional weight loss 10/30/2018 Constitutional No weight gain 10/30/2018 Constitutional recent illness 06/28/2018 Constitutional No chills 06/28/2018 Constitutional No diaphoresis 06/28/2018 Constitutional No fever 06/28/2018 Eyes No blindness 2017 Ears/Nose/Throat/Neck nasal allergies 06/28/2018 Ears/Nose/Throat/Neck nasal discharge 06/28/2018 Ears/Nose/Throat/Neck postnasal drip 06/28/2018 Ears/Nose/Throat/Neck No sinus congestion 06/28/2018 Ears/Nose/Throat/Neck No sore throat 06/28/2018 Cardiovascular No chest pain/pressure 06/28/2018 Respiratory asthma 06/28 Respiratory No chest congestion 06/28/2018 Respiratory No dyspnea on exertion 06/28/2018 Respiratory No dyspnea 1 Respiratory wheezing Gastrointestinal No abdominal pain 06/28/2018 Gastrointestinal No constipation 06/28/2018 Gastrointestinal No diarrhea 06/28/2018 Gastrointestinal No nausea 06/28/2018 Gastrointestinal No vomiting 06/28/2018 Neurologic No alteration of consciousness 06/28/2018 Neurologic No mental status change 06/28/2018 Eyes eye erythema 2017 Eyes eye discharge 06/28 Constitutional No recent illness 04/04/2018 Constitutional No chills 04/04/2018 Constitutional No diaphoresis 04/04/2018 Constitutional No fever 04/04/2018 Constitutional No malaise 04/04/2018 Eyes No eye discharge Eyes No eye erythema Ears/Nose/Throat/Neck nasal allergies 04/04/2018 Ears/Nose/Throat/Neck No nasal discharge 04/04/2018 Cardiovascular No chest pain/pressure 04/04/2018 Respiratory No productive sputum 04/04/2018 Respiratory No chest congestion 04/04/2018 Respiratory No cough Respiratory dyspnea on exertion 04/04/2018 Gastrointestinal No abdominal pain 04/04/2018 Gastrointestinal No constipation 04/04/2018 Gastrointestinal No diarrhea 04/04/2018 Musculoskeletal back pain 04/04/2018 Neurologic No alteration of consciousness 04/04/2018 Cardiovascular edema Neurologic No mental status change 04/04/2018 Hematologic/Lymphatic abnormal ecchymoses 04/04/2018 Constitutional No recent illness 01/19/2018 Constitutional No anorexia 01/19/2018 Constitutional No night sweats 01/19/2018 Constitutional No chills 01/19/2018 Constitutional No diaphoresis 01/19/2018 Constitutional No fatigue 01/19/2018 Constitutional No fever 01/19/2018 Constitutional No insomnia 01/19/2018 Constitutional No malaise 01/19/2018 Constitutional No weight loss 01/19/2018 Constitutional No weight gain 01/19/2018 Dermatologic actinic keratosis 01/19/2018 Constitutional No recent illness 01/05/2018 Constitutional No chills 01/05/2018 Constitutional No diaphoresis 01/05/2018 Constitutional No fever 01/05/2018 Constitutional No malaise 01/05/2018 Eyes No eye discharge Eyes No eye erythema Ears/Nose/Throat/Neck nasal allergies 01/05/2018 Ears/Nose/Throat/Neck No nasal discharge 01/05/2018 Cardiovascular No chest pain/pressure 01/05/2018 Respiratory No productive sputum 01/05/2018 Respiratory No chest congestion 01/05/2018 Respiratory No cough Respiratory dyspnea on exertion 01/05/2018 Gastrointestinal No abdominal pain 01/05/2018 Gastrointestinal No constipation 01/05/2018 Gastrointestinal No diarrhea 01/05/2018 Musculoskeletal back pain 01/05/2018 Neurologic No alteration of consciousness 01/05/2018 Respiratory wheezing Constitutional No recent illness 11/29/2017 Constitutional No chills 11/29/2017 Constitutional No diaphoresis 11/29/2017 Constitutional No fever 11/29/2017 Constitutional No malaise 11/29/2017 Eyes No eye discharge Eyes No eye erythema Cardiovascular No chest pain/pressure 11/29/2017 Respiratory No productive sputum 11/29/2017 Respiratory No chest congestion 11/29/2017 Respiratory No cough Respiratory dyspnea on exertion 11/29/2017 Gastrointestinal No abdominal pain 11/29/2017 Gastrointestinal No constipation 11/29/2017 Gastrointestinal No diarrhea 11/29/2017 Musculoskeletal back pain 11/29/2017 Neurologic No alteration of consciousness 11/29/2017 Ears/Nose/Throat/Neck nasal allergies 11/29/2017 Ears/Nose/Throat/Neck No nasal discharge 11/29/2017 Constitutional No recent illness 10/25/2017 Constitutional No chills 10/25/2017 Constitutional No fever 10/25/2017 Eyes No eye erythema Ears/Nose/Throat/Neck No nasal discharge 10/25/2017 Cardiovascular No chest pain/pressure 10/25/2017 Cardiovascular No dyspnea 10/25/2017 Respiratory No cough Respiratory No dyspnea 0 10/25/2017 Musculoskeletal joint complaint 10/25/2017 Neurologic No alteration of consciousness 10/25/2017 Neurologic No mental status change 10/25/2017 Constitutional recent illness 09/12/2017 Constitutional No chills 09/12/2017 Constitutional No diaphoresis 09/12/2017 Constitutional No fever 09/12/2017 Eyes No eye erythema 10/2017 Ears/Nose/Throat/Neck nasal allergies 09/12/2017 Ears/Nose/Throat/Neck nasal discharge 09/12/2017 Ears/Nose/Throat/Neck No sore throat 09/12/2017 Ears/Nose/Throat/Neck No sinus congestion 09/12/2017 Cardiovascular No chest pain/pressure 09/12/2017 Cardiovascular No dyspnea 09/12/2017 Cardiovascular edema 10/2017 Cardiovascular No fatigue 09/12/2017 Cardiovascular No palpitations 09/12/2017 Cardiovascular No near-syncope/dizziness 09/12/2017 Cardiovascular No syncope 09/12/2017 Respiratory No cough 10/2017 Respiratory asthma 09/12 Respiratory No chest congestion 09/12/2017 Respiratory No dyspnea 0 09/12/2017 Respiratory No dyspnea on exertion 09/12/2017 Gastrointestinal No abdominal pain 09/12/2017 Dermatologic No rash 10/2017 Neurologic No alteration of consciousness 09/12/2017 Neurologic No mental status change 09/12/2017 Constitutional No recent illness 06/14/2017 Constitutional No chills 06/14/2017 Constitutional No diaphoresis 06/14/2017 Constitutional fatigue 1 Constitutional No fever 06/14/2017 Eyes No eye erythema 12/2016 Ears/Nose/Throat/Neck nasal allergies 06/14/2017 Ears/Nose/Throat/Neck nasal discharge 06/14/2017 Cardiovascular No chest pain/pressure 06/14/2017 Cardiovascular No dyspnea 06/14/2017 Respiratory asthma 06/14 Respiratory No chest congestion 06/14/2017 Respiratory cough 2016 Respiratory No dyspnea 1 Gastrointestinal No abdominal pain 06/14/2017 Neurologic No alteration of consciousness 06/14/2017 Neurologic No mental status change 06/14/2017 Ears/Nose/Throat/Neck postnasal drip 06/14/2017 Ears/Nose/Throat/Neck No sinus congestion 06/14/2017 Respiratory dyspnea on exertion 06/14/2017 Respiratory wheezing 12/2016 Constitutional No recent illness 05/10/2017 Constitutional No diaphoresis 05/10/2017 Constitutional No chills 05/10/2017 Constitutional No fever 05/10/2017 Constitutional fatigue 0 05/10/2017 Eyes No eye erythema Ears/Nose/Throat/Neck nasal allergies 05/10/2017 Ears/Nose/Throat/Neck No nasal discharge 05/10/2017 Cardiovascular No chest pain/pressure 05/10/2017 Cardiovascular No dyspnea 05/10/2017 Cardiovascular edema Cardiovascular fatigue 0 05/10/2017 Respiratory No cough Respiratory No chest congestion 05/10/2017 Respiratory asthma 05/10 Respiratory No dyspnea 0 05/10/2017 Gastrointestinal No abdominal pain 05/10/2017 Neurologic No alteration of consciousness 05/10/2017 Neurologic No mental status change 05/10/2017 Constitutional recent illness 04/19/2017 Constitutional No chills 04/19/2017 Constitutional No diaphoresis 04/19/2017 Constitutional No fever 04/19/2017 Eyes No eye discharge Eyes No eye erythema 05/2017 Cardiovascular No chest pain/pressure 04/19/2017 Respiratory asthma 04/19 Respiratory No productive sputum 04/19/2017 Respiratory cough 2016 Respiratory wheezing 05/2017 Gastrointestinal No abdominal pain 04/19/2017 Musculoskeletal back pain 04/19/2017 Dermatologic No rash 05/2017 Neurologic No alteration of consciousness 04/19/2017 Constitutional fatigue 0 04/19/2017 Ears/Nose/Throat/Neck nasal allergies 04/19/2017 Ears/Nose/Throat/Neck No nasal discharge 04/19/2017 Neurologic No mental status change 04/19/2017 Constitutional recent illness 03/27/2017 Constitutional No anorexia 03/27/2017 Constitutional No night sweats 03/27/2017 Constitutional No chills 03/27/2017 Constitutional No diaphoresis 03/27/2017 Constitutional fatigue 0 03/27/2017 Constitutional No fever 03/27/2017 Constitutional No insomnia 03/27/2017 Constitutional No malaise 03/27/2017 Constitutional No weight loss 03/27/2017 Constitutional weight gain 03/27/2017 Eyes No eye discharge Eyes No eye erythema Ears/Nose/Throat/Neck No dizziness 03/27/2017 Ears/Nose/Throat/Neck No headache 03/27/2017 Cardiovascular No chest pain/pressure 03/27/2017 Gastrointestinal No abdominal pain 03/27/2017 Genitourinary/Nephrology No dysuria 03/27/2017 Musculoskeletal back pain 03/27/2017 Dermatologic No rash Neurologic No alteration of consciousness 03/27/2017 Dermatologic No sores Dermatologic ecchymosis 03/27/2017 Respiratory No productive sputum 03/27/2017 Respiratory asthma 03/27 Respiratory cough 2016 Respiratory wheezing Constitutional No recent illness 01/26/2017 Constitutional No anorexia 01/26/2017 Constitutional No night sweats 01/26/2017 Constitutional No chills 01/26/2017 Constitutional No diaphoresis 01/26/2017 Constitutional No fatigue 01/26/2017 Constitutional No fever 01/26/2017 Constitutional No insomnia 01/26/2017 Constitutional No malaise 01/26/2017 Eyes No eye discharge Eyes No eye erythema Ears/Nose/Throat/Neck No dizziness 01/26/2017 Ears/Nose/Throat/Neck No headache 01/26/2017 Cardiovascular No chest pain/pressure 01/26/2017 Respiratory No productive sputum 01/26/2017 Respiratory No chest congestion 01/26/2017 Respiratory No cough Respiratory dyspnea on exertion 01/26/2017 Gastrointestinal No abdominal pain 01/26/2017 Gastrointestinal No constipation 01/26/2017 Gastrointestinal No diarrhea 01/26/2017 Genitourinary/Nephrology No dysuria 01/26/2017 Musculoskeletal back pain 01/26/2017 Neurologic No alteration of consciousness 01/26/2017 Psychiatric anxiety 01/09 Endocrine No cold sensitivity 01/26/2017 Constitutional recent illness 12/07/2016 Constitutional No chills 12/07/2016 Constitutional No diaphoresis 12/07/2016 Constitutional No fever 12/07/2016 Eyes No eye erythema Ears/Nose/Throat/Neck nasal allergies 12/07/2016 Ears/Nose/Throat/Neck nasal discharge 12/07/2016 Ears/Nose/Throat/Neck postnasal drip 12/07/2016 Ears/Nose/Throat/Neck No sore throat 12/07/2016 Cardiovascular No chest pain/pressure 12/07/2016 Respiratory asthma 12/07 Respiratory chest congestion 12/07/2016 Respiratory cough 2016 Respiratory dyspnea on exertion 12/07/2016 Respiratory No dyspnea 0 12/07/2016 Gastrointestinal No abdominal pain 12/07/2016 Gastrointestinal No constipation 12/07/2016 Gastrointestinal No diarrhea 12/07/2016 Gastrointestinal No nausea 12/07/2016 Gastrointestinal No vomiting 12/07/2016 Neurologic No alteration of consciousness 12/07/2016 Neurologic No mental status change 12/07/2016 Ears/Nose/Throat/Neck No sinus congestion 12/07/2016 Constitutional recent illness 11/28/2016 Constitutional No chills 11/28/2016 Constitutional No diaphoresis 11/28/2016 Eyes No eye erythema Ears/Nose/Throat/Neck nasal allergies 11/28/2016 Ears/Nose/Throat/Neck nasal discharge 11/28/2016 Ears/Nose/Throat/Neck postnasal drip 11/28/2016 Ears/Nose/Throat/Neck No sinus congestion 11/28/2016 Ears/Nose/Throat/Neck No sore throat 11/28/2016 Cardiovascular No chest pain/pressure 11/28/2016 Respiratory asthma 11/28 Respiratory chest congestion 11/28/2016 Respiratory cough 2016 Respiratory dyspnea on exertion 11/28/2016 Respiratory No dyspnea 0 11/28/2016 Respiratory wheezing Gastrointestinal No abdominal pain 11/28/2016 Gastrointestinal No constipation 11/28/2016 Gastrointestinal No diarrhea 11/28/2016 Gastrointestinal No nausea 11/28/2016 Gastrointestinal No vomiting 11/28/2016 Neurologic No alteration of consciousness 11/28/2016 Neurologic No mental status change 11/28/2016 Constitutional No fever 11/28/2016 Constitutional recent illness 11/15/2016 Constitutional No chills 11/15/2016 Constitutional No diaphoresis 11/15/2016 Constitutional fever 03/2017 Eyes No eye erythema 03/2017 Ears/Nose/Throat/Neck nasal discharge 11/15/2016 Ears/Nose/Throat/Neck postnasal drip 11/15/2016 Ears/Nose/Throat/Neck No sinus congestion 11/15/2016 Cardiovascular No chest pain/pressure 11/15/2016 Respiratory asthma 11/15 Respiratory chest congestion 11/15/2016 Respiratory cough 2016 Respiratory No dyspnea 0 11/15/2016 Respiratory wheezing 03/2017 Gastrointestinal No abdominal pain 11/15/2016 Gastrointestinal No constipation 11/15/2016 Gastrointestinal No diarrhea 11/15/2016 Gastrointestinal No nausea 11/15/2016 Gastrointestinal No vomiting 11/15/2016 Dermatologic No rash 03/2017 Neurologic No alteration of consciousness 11/15/2016 Neurologic No mental status change 11/15/2016 Ears/Nose/Throat/Neck nasal allergies 11/15/2016 Ears/Nose/Throat/Neck No sore throat 11/15/2016 Respiratory dyspnea on exertion 11/15/2016 Constitutional recent illness 10/17/2016 Constitutional No chills 10/17/2016 Constitutional No diaphoresis 10/17/2016 Constitutional No fever 10/17/2016 Eyes No eye erythema 02/2017 Ears/Nose/Throat/Neck nasal allergies 10/17/2016 Ears/Nose/Throat/Neck nasal discharge 10/17/2016 Ears/Nose/Throat/Neck postnasal drip 10/17/2016 Ears/Nose/Throat/Neck sinus congestion 10/17/2016 Cardiovascular No chest pain/pressure 10/17/2016 Cardiovascular No dyspnea 10/17/2016 Respiratory chest congestion 10/17/2016 Respiratory No cough 02/2017 Respiratory No dyspnea 0 10/17/2016 Gastrointestinal No abdominal pain 10/17/2016 Gastrointestinal No constipation 10/17/2016 Gastrointestinal No diarrhea 10/17/2016 Gastrointestinal No nausea 10/17/2016 Gastrointestinal No vomiting 10/17/2016 Dermatologic No rash 02/2017 Neurologic No alteration of consciousness 10/17/2016 Neurologic No mental status change 10/17/2016 Ears/Nose/Throat/Neck sore throat 10/17/2016 Respiratory asthma 10/17 Respiratory wheezing 02/2017 Constitutional No recent illness 09/28/2016 Constitutional No anorexia 09/28/2016 Constitutional No night sweats 09/28/2016 Constitutional No chills 09/28/2016 Constitutional No diaphoresis 09/28/2016 Constitutional No fatigue 09/28/2016 Constitutional No fever 09/28/2016 Constitutional No insomnia 09/28/2016 Constitutional No malaise 09/28/2016 Eyes No eye discharge Eyes No eye erythema Ears/Nose/Throat/Neck No dizziness 09/28/2016 Ears/Nose/Throat/Neck No headache 09/28/2016 Cardiovascular No chest pain/pressure 09/28/2016 Respiratory No productive sputum 09/28/2016 Respiratory No chest congestion 09/28/2016 Respiratory No cough Respiratory dyspnea on exertion 09/28/2016 Gastrointestinal No abdominal pain 09/28/2016 Gastrointestinal No constipation 09/28/2016 Gastrointestinal No diarrhea 09/28/2016 Genitourinary/Nephrology No dysuria 09/28/2016 Neurologic No alteration of consciousness 09/28/2016 Psychiatric anxiety 09/11 Endocrine No cold sensitivity 09/28/2016 Musculoskeletal back pain 09/28/2016 Constitutional No chills 06/29/2016 Constitutional No diaphoresis 06/29/2016 Constitutional No fever 06/29/2016 Eyes No eye discharge Eyes No eye erythema Cardiovascular No chest pain/pressure 06/29/2016 Respiratory No cough Gastrointestinal No abdominal pain 06/29/2016 Dermatologic No rash Neurologic No alteration of consciousness 06/29/2016 Constitutional No recent illness 06/29/2016 Constitutional weight gain 06/29/2016 Constitutional fatigue 1 Ears/Nose/Throat/Neck No nasal allergies 06/29/2016 Ears/Nose/Throat/Neck No nasal discharge 06/29/2016 Cardiovascular No dyspnea 06/29/2016 Respiratory No chest congestion 06/29/2016 Respiratory No dyspnea 1 Neurologic No mental status change 06/29/2016 Constitutional recent illness 06/01/2016 Constitutional No anorexia 06/01/2016 Constitutional No night sweats 06/01/2016 Constitutional No chills 06/01/2016 Constitutional No diaphoresis 06/01/2016 Constitutional No fatigue 06/01/2016 Constitutional No fever 06/01/2016 Constitutional No insomnia 06/01/2016 Constitutional No malaise 06/01/2016 Constitutional weight loss 06/01/2016 Constitutional No weight gain 06/01/2016 Eyes No eye discharge Eyes No eye erythema Ears/Nose/Throat/Neck No dizziness 06/01/2016 Ears/Nose/Throat/Neck No headache 06/01/2016 Cardiovascular No chest pain/pressure 06/01/2016 Respiratory productive sputum 06/01/2016 Respiratory No chest congestion 06/01/2016 Respiratory No cough Respiratory dyspnea on exertion 06/01/2016 Gastrointestinal No abdominal pain 06/01/2016 Gastrointestinal No constipation 06/01/2016 Gastrointestinal No diarrhea 06/01/2016 Genitourinary/Nephrology No dysuria 06/01/2016 Musculoskeletal back pain 06/01/2016 Dermatologic sores 06/01 Neurologic No alteration of consciousness 06/01/2016 Psychiatric anxiety 05/13 Endocrine No cold sensitivity 06/01/2016 Constitutional No recent illness 05/11/2016 Constitutional No anorexia 05/11/2016 Constitutional No night sweats 05/11/2016 Constitutional No chills 05/11/2016 Constitutional No diaphoresis 05/11/2016 Constitutional No fatigue 05/11/2016 Constitutional No fever 05/11/2016 Constitutional No insomnia 05/11/2016 Constitutional No malaise 05/11/2016 Eyes No eye discharge Eyes No eye erythema Ears/Nose/Throat/Neck No dizziness 05/11/2016 Ears/Nose/Throat/Neck No headache 05/11/2016 Cardiovascular No chest pain/pressure 05/11/2016 Respiratory No productive sputum 05/11/2016 Respiratory No chest congestion 05/11/2016 Respiratory No cough Gastrointestinal No abdominal pain 05/11/2016 Gastrointestinal No constipation 05/11/2016 Gastrointestinal No diarrhea 05/11/2016 Genitourinary/Nephrology No dysuria 05/11/2016 Neurologic No alteration of consciousness 05/11/2016 Endocrine No cold sensitivity 05/11/2016 Psychiatric anxiety 0809/2015 Dermatologic sores 05/11 Dermatologic sores 04/05 Respiratory No productive sputum 04/05/2016 Respiratory No chest congestion 04/05/2016 Respiratory No cough Respiratory dyspnea on exertion 04/05/2016 Constitutional No recent illness 04/05/2016 Constitutional No anorexia 04/05/2016 Constitutional No night sweats 04/05/2016 Constitutional No diaphoresis 04/05/2016 Constitutional No chills 04/05/2016 Constitutional No fatigue 04/05/2016 Constitutional No fever 04/05/2016 Constitutional No insomnia 04/05/2016 Constitutional No malaise 04/05/2016 Constitutional weight loss 04/05/2016 Constitutional No weight gain 04/05/2016 Eyes No eye discharge Eyes No eye erythema Ears/Nose/Throat/Neck No dizziness 04/05/2016 Ears/Nose/Throat/Neck No headache 04/05/2016 Ears/Nose/Throat/Neck oral lesion 04/05/2016 Cardiovascular No chest pain/pressure 04/05/2016 Musculoskeletal back pain 04/05/2016 Gastrointestinal No abdominal pain 04/05/2016 Gastrointestinal No diarrhea 04/05/2016 Gastrointestinal No constipation 04/05/2016 Genitourinary/Nephrology No dysuria 04/05/2016 Neurologic No alteration of consciousness 04/05/2016 Psychiatric anxiety 03/12 Endocrine No cold sensitivity 04/05/2016 Constitutional No recent illness 04/01/2016 Constitutional No chills 04/01/2016 Constitutional No diaphoresis 04/01/2016 Constitutional No fever 04/01/2016 Eyes No eye discharge Eyes No eye erythema Ears/Nose/Throat/Neck oral lesion 04/01/2016 Cardiovascular No chest pain/pressure 04/01/2016 Respiratory No chest congestion 04/01/2016 Respiratory No cough Gastrointestinal No abdominal pain 04/01/2016 Dermatologic sores 04/01 Neurologic No alteration of consciousness 04/01/2016 Ears/Nose/Throat/Neck sinus congestion 04/01/2016 Cardiovascular No dyspnea 04/01/2016 Respiratory productive sputum 01/26/2016 Respiratory cough 2015 Constitutional recent illness 01/26/2016 Constitutional No anorexia 01/26/2016 Constitutional No night sweats 01/26/2016 Constitutional No diaphoresis 01/26/2016 Constitutional No chills 01/26/2016 Constitutional fatigue 0 01/26/2016 Constitutional No fever 01/26/2016 Constitutional No insomnia 01/26/2016 Constitutional weight gain 01/26/2016 Constitutional No weight loss 01/26/2016 Constitutional No malaise 01/26/2016 Eyes No eye erythema Eyes No eye discharge Ears/Nose/Throat/Neck No dizziness 01/26/2016 Ears/Nose/Throat/Neck No headache 01/26/2016 Cardiovascular No chest pain/pressure 01/26/2016 Gastrointestinal No abdominal pain 01/26/2016 Genitourinary/Nephrology No dysuria 01/26/2016 Musculoskeletal back pain 01/26/2016 Dermatologic No rash Dermatologic sores 01/25 Neurologic No alteration of consciousness 01/26/2016 Constitutional No recent illness 12/21/2015 Constitutional No chills 12/21/2015 Constitutional No diaphoresis 12/21/2015 Constitutional No fatigue 12/21/2015 Constitutional No fever 12/21/2015 Constitutional No insomnia 12/21/2015 Constitutional No malaise 12/21/2015 Eyes No eye discharge Eyes No eye erythema 07/2016 Ears/Nose/Throat/Neck No dizziness 12/21/2015 Ears/Nose/Throat/Neck No headache 12/21/2015 Ears/Nose/Throat/Neck nasal allergies 12/21/2015 Cardiovascular No chest pain/pressure 12/21/2015 Cardiovascular No dyspnea 12/21/2015 Gastrointestinal No abdominal pain 12/21/2015 Neurologic No alteration of consciousness 12/21/2015 Ears/Nose/Throat/Neck No nasal discharge 12/21/2015 Ears/Nose/Throat/Neck No postnasal drip 12/21/2015 Respiratory No chest congestion 12/21/2015 Respiratory No cough 07/2016 Dermatologic sores 12/20 Constitutional No anorexia 10/12/2015 Constitutional No recent illness 10/12/2015 Constitutional No night sweats 10/12/2015 Constitutional No chills 10/12/2015 Constitutional No diaphoresis 10/12/2015 Constitutional No fatigue 10/12/2015 Constitutional No fever 10/12/2015 Constitutional No insomnia 10/12/2015 Constitutional No malaise 10/12/2015 Constitutional No weight loss 10/12/2015 Constitutional No weight gain 10/12/2015 Eyes No eye discharge Eyes No eye erythema 09/2015 Dermatologic sores 10/12 Neurologic No alteration of consciousness 10/12/2015 Ears/Nose/Throat/Neck nasal allergies 10/12/2015 Ears/Nose/Throat/Neck No dizziness 10/12/2015 Ears/Nose/Throat/Neck No headache 10/12/2015 Cardiovascular No chest pain/pressure 10/12/2015 Cardiovascular No dyspnea 10/12/2015 Respiratory cough 2015 Respiratory wheezing 09/2015 Gastrointestinal No abdominal pain 10/12/2015 Constitutional No recent illness 08/24/2015 Constitutional No anorexia 08/24/2015 Constitutional No night sweats 08/24/2015 Constitutional No chills 08/24/2015 Constitutional No diaphoresis 08/24/2015 Constitutional No fatigue 08/24/2015 Constitutional No fever 08/24/2015 Constitutional No insomnia 08/24/2015 Constitutional No malaise 08/24/2015 Constitutional No weight loss 08/24/2015 Constitutional No weight gain 08/24/2015 Eyes No eye discharge Eyes No eye erythema Ears/Nose/Throat/Neck No dizziness 08/24/2015 Ears/Nose/Throat/Neck No headache 08/24/2015 Ears/Nose/Throat/Neck No nasal allergies 08/24/2015 Cardiovascular No chest pain/pressure 08/24/2015 Cardiovascular No dyspnea 08/24/2015 Cardiovascular No edema 08/24/2015 Respiratory No productive sputum 08/24/2015 Respiratory No chest congestion 08/24/2015 Gastrointestinal No abdominal pain 08/24/2015 Gastrointestinal constipation 08/24/2015 Gastrointestinal No diarrhea 08/24/2015 Genitourinary/Nephrology No dysuria 08/24/2015 Musculoskeletal No joint complaint 08/24/2015 Dermatologic No rash Neurologic No alteration of consciousness 08/24/2015 Musculoskeletal No back pain 08/24/2015 Psychiatric No depression 08/24/2015 Endocrine No dry or coarse skin 08/24/2015 Hematologic/Lymphatic No abnormal bl eeding and bruising 08/24/2015 Constitutional No recent illness 06/01/2015 Constitutional No chills 06/01/2015 Constitutional No fatigue 06/01/2015 Constitutional No fever 06/01/2015 Constitutional No insomnia 06/01/2015 Constitutional No malaise 06/01/2015 Cardiovascular No chest pain/pressure 06/01/2015 Cardiovascular No dyspnea 06/01/2015 Cardiovascular No edema 06/01/2015 Cardiovascular No exercise intolerance 06/01/2015 Cardiovascular No fatigue 06/01/2015 Cardiovascular No near-syncope/dizziness 06/01/2015 Respiratory No cough Respiratory No chest congestion 06/01/2015 Dermatologic rash 2014 Dermatologic sores 06/01 Constitutional No recent illness 05/21/2015 Constitutional No anorexia 05/21/2015 Constitutional No night sweats 05/21/2015 Constitutional No chills 05/21/2015 Constitutional No diaphoresis 05/21/2015 Constitutional No fatigue 05/21/2015 Constitutional No fever 05/21/2015 Constitutional No insomnia 05/21/2015 Constitutional No malaise 05/21/2015 Constitutional No weight loss 05/21/2015 Constitutional No weight gain 05/21/2015 Eyes No eye discharge Eyes No eye erythema 06/2015 Ears/Nose/Throat/Neck No dizziness 05/21/2015 Ears/Nose/Throat/Neck No headache 05/21/2015 Ears/Nose/Throat/Neck No nasal allergies 05/21/2015 Cardiovascular No chest pain/pressure 05/21/2015 Cardiovascular No dyspnea 05/21/2015 Cardiovascular No edema 05/21/2015 Respiratory No productive sputum 05/21/2015 Respiratory No chest congestion 05/21/2015 Gastrointestinal No abdominal pain 05/21/2015 Gastrointestinal No constipation 05/21/2015 Gastrointestinal No diarrhea 05/21/2015 Genitourinary/Nephrology No dysuria 05/21/2015 Musculoskeletal No joint complaint 05/21/2015 Dermatologic No rash 06/2015 Neurologic No alteration of consciousness 05/21/2015 Constitutional No recent illness 03/26/2015 Constitutional No anorexia 03/26/2015 Constitutional No chills 03/26/2015 Constitutional No night sweats 03/26/2015 Constitutional No diaphoresis 03/26/2015 Constitutional fatigue 0 03/26/2015 Constitutional No fever 03/26/2015 Constitutional No insomnia 03/26/2015 Constitutional No malaise 03/26/2015 Constitutional No weight loss 03/26/2015 Constitutional No weight gain 03/26/2015 Eyes No eye discharge Eyes No eye erythema Ears/Nose/Throat/Neck No dizziness 03/26/2015 Ears/Nose/Throat/Neck No headache 03/26/2015 Cardiovascular No chest pain/pressure 03/26/2015 Cardiovascular No dyspnea 03/26/2015 Respiratory No productive sputum 03/26/2015 Respiratory No cough Gastrointestinal constipation 03/26/2015 Gastrointestinal No abdominal pain 03/26/2015 Gastrointestinal No diarrhea 03/26/2015 Respiratory dyspnea on exertion 03/26/2015 Respiratory asthma 03/26 Genitourinary/Nephrology No dysuria 03/26/2015 Musculoskeletal No joint complaint 03/26/2015 Dermatologic erythema Constitutional No recent illness 03/11/2015 Constitutional No night sweats 03/11/2015 Constitutional No fever 03/11/2015 Constitutional No chills 03/11/2015 Respiratory No chest congestion 03/11/2015 Respiratory No chest tightness 03/11/2015 Respiratory No cigarette smoking 03/11/2015 Respiratory No cough 09/2014 Cardiovascular No chest pain/pressure 03/11/2015 Gastrointestinal No abdominal pain 03/11/2015 Gastrointestinal constipation 03/11/2015 Gastrointestinal No diarrhea 03/11/2015 Gastrointestinal No nausea 03/11/2015 Gastrointestinal No vomiting 03/11/2015 Genitourinary/Nephrology No dysuria 03/11/2015 Musculoskeletal back pain 03/11/2015 Dermatologic No rash 09/2014 Dermatologic No sores Neurologic No headache 0 03/11/2015 Psychiatric No anxiety 0 03/11/2015 Psychiatric No depression 03/11/2015 Dermatologic No paronychia 03/11/2015 Dermatologic No erythema 03/11/2015 Dermatologic No drainage 03/11/2015 Dermatologic No mole change 03/11/2015 Dermatologic pigmentation change 03/11/2015 Ears/Nose/Throat/Neck No hearing loss 03/11/2015 Ears/Nose/Throat/Neck No headache 03/11/2015 Endocrine dry or coarse skin 03/11/2015 Endocrine hair loss 09/2014 Endocrine No weakness Endocrine flushing 03/11 Constitutional No recent illness 12/11/2014 Constitutional No night sweats 12/11/2014 Constitutional No chills 12/11/2014 Constitutional fatigue 0 12/11/2014 Constitutional No fever 12/11/2014 Constitutional No insomnia 12/11/2014 Eyes No eye discharge Eyes No eye erythema 10/2014 Ears/Nose/Throat/Neck No dizziness 12/11/2014 Ears/Nose/Throat/Neck No headache 12/11/2014 Cardiovascular No chest pain/pressure 12/11/2014 Cardiovascular No dyspnea 12/11/2014 Cardiovascular No edema 12/11/2014 Respiratory No productive sputum 12/11/2014 Respiratory No chest congestion 12/11/2014 Respiratory No cough 10/2014 Gastrointestinal No abdominal pain 12/11/2014 Gastrointestinal constipation 12/11/2014 Gastrointestinal No diarrhea 12/11/2014 Gastrointestinal No nausea 12/11/2014 Gastrointestinal No vomiting 12/11/2014 Genitourinary/Nephrology No dysuria 12/11/2014 Musculoskeletal back pain 12/11/2014 Dermatologic No rash 10/2014 Neurologic No alteration of consciousness 12/11/2014 Psychiatric anxiety 10/2014 Constitutional No recent illness 09/18/2014 Constitutional No night sweats 09/18/2014 Constitutional No chills 09/18/2014 Constitutional No fatigue 09/18/2014 Constitutional No fever 09/18/2014 Constitutional No insomnia 09/18/2014 Eyes No eye discharge Eyes No eye erythema 04/2015 Ears/Nose/Throat/Neck No dizziness 09/18/2014 Ears/Nose/Throat/Neck No headache 09/18/2014 Cardiovascular No chest pain/pressure 09/18/2014 Cardiovascular No dyspnea 09/18/2014 Cardiovascular No edema 09/18/2014 Respiratory No productive sputum 09/18/2014 Respiratory No chest congestion 09/18/2014 Respiratory No cough 04/2015 Gastrointestinal No abdominal pain 09/18/2014 Gastrointestinal constipation 09/18/2014 Gastrointestinal No diarrhea 09/18/2014 Gastrointestinal No nausea 09/18/2014 Gastrointestinal No vomiting 09/18/2014 Genitourinary/Nephrology No dysuria 09/18/2014 Musculoskeletal back pain 09/18/2014 Dermatologic No rash 04/2015 Neurologic No alteration of consciousness 09/18/2014 Psychiatric anxiety 04/2015 Dermatologic sores 09/18 Constitutional No recent illness 07/31/2014 Constitutional No anorexia 07/31/2014 Constitutional No night sweats 07/31/2014 Constitutional No chills 07/31/2014 Constitutional No diaphoresis 07/31/2014 Constitutional No fatigue 07/31/2014 Constitutional No fever 07/31/2014 Constitutional No insomnia 07/31/2014 Constitutional No malaise 07/31/2014 Constitutional No weight loss 07/31/2014 Constitutional No weight gain 07/31/2014 Eyes No eye discharge Eyes No eye erythema Eyes vision change 07/31 Ears/Nose/Throat/Neck No dizziness 07/31/2014 Ears/Nose/Throat/Neck No headache 07/31/2014 Cardiovascular No chest pain/pressure 07/31/2014 Cardiovascular No dyspnea 07/31/2014 Cardiovascular No edema 07/31/2014 Respiratory No productive sputum 07/31/2014 Respiratory No chest congestion 07/31/2014 Respiratory No cough Gastrointestinal No abdominal pain 07/31/2014 Gastrointestinal constipation 07/31/2014 Gastrointestinal No diarrhea 07/31/2014 Gastrointestinal No vomiting 07/31/2014 Gastrointestinal No nausea 07/31/2014 Genitourinary/Nephrology No dysuria 07/31/2014 Musculoskeletal back pain 07/31/2014 Dermatologic No rash Neurologic No alteration of consciousness 07/31/2014 Psychiatric anxiety 07/13 Endocrine No dry or coarse skin 07/31/2014 Endocrine No cold sensitivity 07/31/2014 Hematologic/Lymphatic No abnormal bl eeding and bruising 07/31/2014 Physical Exam Exam Name System Name It em Name Status Result Effective Dates Notes Full Exam - General 1994 Constitutional general appearance Overall: well developed 05/23/2019 None Full Exam - General 1994 Constitutional general appearance Overall: in no acute distress 05/23/2019 None Full Exam - General 1994 Constitutional general appearance Overall: well nourished 05/23/2019 None Full Exam - General 1994 Eyes conjunctiva/eyelids Overall: conjunctiva clear 05/23/2019 None Full Exam - General 1994 Eyes pupils and irises Overall: pupils equal, round, reactive to light and accomodation 05/23/2019 None Full Exam - General 1994 Ears/Nose/Throat otoscopic exam Overall: external auditory canals clear 05/23/2019 None Full Exam - General 1994 Ears/Nose/Throat otoscopic exam Overall: tympanic membranes clear 05/23/2019 None Full Exam - General 1994 Ears/Nose/Throat oral cavity/pharynx/larynx Overall: oral mucosa clear 05/23/2019 None Full Exam - Cardiology Cardiovascular auscultation of heart Systolic murmur: midsystolic 05/23/2019 None Full Exam - Cardiology Cardiovascular auscultation of heart Systolic murmur grade: II/ 05/23/2019 None Full Exam - General 1994 Respiratory auscultation Overall: breath sounds clear bilaterally 05/23/2019 None Full Exam - General 1994 Respiratory respiratory effort/rhythm Overall: no retractions 05/23/2019 None Full Exam - General 1994 Respiratory respiratory effort/rhythm Overall: normal rate 05/23/2019 None Full Exam - General 1994 Cardiovascular extremities Overall: no clubbing 05/23/2019 None Full Exam - General 1994 Cardiovascular auscultation of heart Overall: regular rate 05/23/2019 None Full Exam - General 1994 Cardiovascular auscultation of heart Overall: normal heart sounds 05/23/2019 None Full Exam - General 1994 Cardiovascular auscultation of heart Overall: no murmurs 05/23/2019 None Full Exam - General 1994 Abdomen abdominal exam Overall: no tenderness 05/23/2019 None Full Exam - General 1994 Abdomen abdominal exam Overall: normal bowel sounds 05/23/2019 None Full Exam - Cardiology Integument inspection/palpation Location: back 05/23/2019 marshal schmid Full Exam - General 1994 Musculoskeletal head and neck Overall: head atraumatic 05/23/2019 None Full Exam - General 1994 Neurologic cranial nerves Overall: crainial nerves 2 - 12 grossly intact 05/23/2019 None Full Exam - General 1994 Psychiatric orientation/consciousness Overall: oriented to person, place and time 05/23/2019 None Full Exam - ENT Constitutional general appearance Overall: well nourished 05/07/2019 None Full Exam - ENT Constitutional general appearance Overall: well developed 05/07/2019 None Full Exam - ENT Constitutional general appearance Overall: in no acute distress 05/07/2019 None Full Exam - ENT Ears/Nose/Throat otoscopic exam Overall: external auditory canals normal 05/07/2019 None Full Exam - ENT Ears/Nose/Throat otoscopic exam Left tympanic membrane: air-fluid le janis 05/07/2019 None Full Exam - ENT Ears/Nose/Throat otoscopic exam Right tympanic membrane: air-fluid level 05/07/2019 None Full Exam - ENT Ears/Nose/Throat nasal mucosa, septum, turbinates Drainage: clear 05/07/2019 None Full Exam - ENT Ears/Nose/Throat nasal mucosa, septum, turbinates Drainage: yellow 05/07/2019 None Full Exam - ENT Ears/Nose/Throat lips/teeth/gingiva Overall: benign lips 05/07/2019 None Full Exam - ENT Ears/Nose/Throat oropharynx Posterior Pharynx: clear post nasal drainage 05/07/2019 None Full Exam - ENT Face and Head palpation Left maxillary sinus: tender 05/07/2019 None Full Exam - ENT Face and Head palpation Right maxillary sinus: tender 05/07/2019 None Full Exam - ENT Respiratory inspection Overall: no retractions 05/07/2019 None Full Exam - ENT Respiratory inspection Overall: normal rate None Full Exam - ENT Respiratory auscultation Overall: breath sounds clear bilater ally 05/07/2019 None Full Exam - ENT Cardiovascular auscultation of heart Overall: regular rate 05/07/2019 None Full Exam - ENT Cardiovascular auscultation of heart Overall: normal heart sounds 05/07/2019 None Full Exam - ENT Lymphatic palpation of lymph nodes Overall: anterior cervical chain benign 05/07/2019 None Full Exam - ENT Lymphatic palpation of lymph nodes Overall: posterior cervical chain benign 05/07/2019 None Full Exam - ENT Neurologic mood and affect Overall: normal mood 05/07/2019 None Full Exam - ENT Neurologic mood and affect Overall: normal affect 05/07/2019 None Full Exam - ENT Neurologic orientation Overall: oriented to person, place a nd time 05/07/2019 None Full Exam - ENT Ears/Nose/Throat oropharynx Oral mucosa: ulceration 05/07/2019 None Full Exam - Dermatology Constitutional general appearance Overall: well nourished 04/29/2019 None Full Exam - Dermatology Constitutional general appearance Overall: well developed 04/29/2019 None Full Exam - Dermatology Constitutional general appearance Overall: in no acute distress 04/29/2019 None Full Exam - Dermatology Eyes conjunctiva/eyelids Overall: clear conjunctiva bilaterally 04/29/2019 None Full Exam - Dermatology Eyes conjunctiva/eyelids Overall: clear corneas 04/29/2019 None Full Exam - Dermatology Eyes conjunctiva/eyelids Overall: normal eyelids 04/29/2019 None Full Exam - Dermatology Ears/Nose/Throat lips/teeth/gingiva Overall: benign lips 04/29/2019 None Full Exam - Dermatology Ears/Nose/Throat oropharynx Overall: clear oral mucosa 04/29/2019 None Full Exam - Dermatology Respiratory respiratory effort/rhythm Overall: no retractions 04/29/2019 None Full Exam - Dermatology Respiratory respiratory effort/rhythm Overall: normal rate 04/29/2019 None Full Exam - Dermatology Musculoskeletal head and neck Overall: head atraumatic 04/29/2019 None Full Exam - Dermatology Psychiatric orientation Overall: oriented to person, place and time 04/29/2019 None Full Exam - Dermatology Psychiatric mood and affect Overall: normal mood and affect 04/29/2019 None Full Exam - Dermatology Integument insp & palp - back Lesion: papule 04/29/2019 several small bumps noted to upper back, mildly erythematous Full Exam - Dermatology Musculoskeletal left lower extremity Palpation - left knee: prepatellar tenderness 04/29/2019 None Full Exam - Dermatology Musculoskeletal left lower extremity ROM - left knee: pain with flexion 04/29/2019 None Full Exam - General 1994 Constitutional general appearance Overall: well developed 03/21/2019 None Full Exam - General 1994 Constitutional general appearance Overall: in no acute distress 03/21/2019 None Full Exam - General 1994 Constitutional general appearance Overall: well nourished 03/21/2019 None Full Exam - General 1994 Eyes conjunctiva/eyelids Overall: conjunctiva clear 03/21/2019 None Full Exam - General 1994 Eyes pupils and irises Overall: pupils equal, round, reactive to light and accomodation 03/21/2019 None Full Exam - General 1994 Ears/Nose/Throat otoscopic exam Overall: external auditory canals clear 03/21/2019 None Full Exam - General 1994 Ears/Nose/Throat otoscopic exam Overall: tympanic membranes clear 03/21/2019 None Full Exam - General 1994 Ears/Nose/Throat oral cavity/pharynx/larynx Overall: oral mucosa clear 03/21/2019 None Full Exam - Cardiology Cardiovascular auscultation of heart Systolic murmur: midsystolic 03/21/2019 None Full Exam - Cardiology Cardiovascular auscultation of heart Systolic murmur grade: II/ 03/21/2019 None Full Exam - General 1994 Respiratory auscultation Overall: breath sounds clear bilaterally 03/21/2019 None Full Exam - General 1994 Respiratory respiratory effort/rhythm Overall: no retractions 03/21/2019 None Full Exam - General 1994 Respiratory respiratory effort/rhythm Overall: normal rate 03/21/2019 None Full Exam - General 1994 Cardiovascular extremities Overall: no clubbing 03/21/2019 None Full Exam - General 1994 Cardiovascular auscultation of heart Overall: regular rate 03/21/2019 None Full Exam - General 1994 Cardiovascular auscultation of heart Overall: normal heart sounds 03/21/2019 None Full Exam - General 1994 Cardiovascular auscultation of heart Overall: no murmurs 03/21/2019 None Full Exam - General 1994 Abdomen abdominal exam Overall: no tenderness 03/21/2019 None Full Exam - General 1994 Abdomen abdominal exam Overall: normal bowel sounds 03/21/2019 None Full Exam - General 1994 Musculoskeletal head and neck Overall: head atraumatic 03/21/2019 None Full Exam - General 1994 Neurologic cranial nerves Overall: crainial nerves 2 - 12 grossly intact 03/21/2019 None Full Exam - General 1994 Psychiatric orientation/consciousness Overall: oriented to person, place and time 03/21/2019 None Full Exam - Cardiology Integument inspection/palpation Location: back 03/21/2019 marshal k Full Exam - General 1994 Constitutional general appearance Overall: well developed 01/22/2019 None Full Exam - General 1994 Constitutional general appearance Overall: in no acute distress 01/22/2019 None Full Exam - General 1994 Constitutional general appearance Overall: well nourished 01/22/2019 None Full Exam - General 1994 Eyes conjunctiva/eyelids Overall: conjunctiva clear 01/22/2019 None Full Exam - General 1994 Eyes pupils and irises Overall: pupils equal, round, reactive to light and accomodation 01/22/2019 None Full Exam - General 1994 Ears/Nose/Throat otoscopic exam Overall: external auditory canals clear 01/22/2019 None Full Exam - General 1994 Ears/Nose/Throat otoscopic exam Overall: tympanic membranes clear 01/22/2019 None Full Exam - General 1994 Ears/Nose/Throat oral cavity/pharynx/larynx Overall: oral mucosa clear 01/22/2019 None Full Exam - Cardiology Cardiovascular auscultation of heart Systolic murmur: midsystolic 01/22/2019 None Full Exam - Cardiology Cardiovascular auscultation of heart Systolic murmur grade: II/ 01/22/2019 None Full Exam - General 1994 Respiratory auscultation Overall: breath sounds clear bilaterally 01/22/2019 None Full Exam - General 1994 Respiratory respiratory effort/rhythm Overall: no retractions 01/22/2019 None Full Exam - General 1994 Respiratory respiratory effort/rhythm Overall: normal rate 01/22/2019 None Full Exam - General 1994 Cardiovascular extremities Overall: no clubbing 01/22/2019 None Full Exam - General 1994 Cardiovascular auscultation of heart Overall: regular rate 01/22/2019 None Full Exam - General 1994 Cardiovascular auscultation of heart Overall: normal heart sounds 01/22/2019 None Full Exam - General 1994 Cardiovascular auscultation of heart Overall: no murmurs 01/22/2019 None Full Exam - General 1994 Abdomen abdominal exam Overall: no tenderness 01/22/2019 None Full Exam - General 1994 Abdomen abdominal exam Overall: normal bowel sounds 01/22/2019 None Full Exam - General 1994 Musculoskeletal head and neck Overall: head atraumatic 01/22/2019 None Full Exam - General 1994 Neurologic cranial nerves Overall: crainial nerves 2 - 12 grossly intact 01/22/2019 None Full Exam - General 1994 Psychiatric orientation/consciousness Overall: oriented to person, place and time 01/22/2019 None Full Exam - General 1994 Constitutional general appearance Overall: well developed 10/30/2018 None Full Exam - General 1994 Constitutional general appearance Overall: in no acute distress 10/30/2018 None Full Exam - General 1994 Constitutional general appearance Overall: well nourished 10/30/2018 None Full Exam - General 1994 Eyes conjunctiva/eyelids Overall: conjunctiva clear 10/30/2018 None Full Exam - General 1994 Eyes pupils and irises Overall: pupils equal, round, reactive to light and accomodation 10/30/2018 None Full Exam - General 1994 Ears/Nose/Throat otoscopic exam Overall: external auditory canals clear 10/30/2018 None Full Exam - General 1994 Ears/Nose/Throat otoscopic exam Overall: tympanic membranes clear 10/30/2018 None Full Exam - General 1994 Ears/Nose/Throat oral cavity/pharynx/larynx Overall: oral mucosa clear 10/30/2018 None Full Exam - General 1994 Respiratory auscultation Overall: breath sounds clear bilaterally 10/30/2018 None Full Exam - General 1994 Respiratory respiratory effort/rhythm Overall: no retractions 10/30/2018 None Full Exam - General 1994 Respiratory respiratory effort/rhythm Overall: normal rate 10/30/2018 None Full Exam - General 1994 Cardiovascular extremities Overall: no clubbing 10/30/2018 None Full Exam - General 1994 Cardiovascular auscultation of heart Overall: regular rate 10/30/2018 None Full Exam - General 1994 Cardiovascular auscultation of heart Overall: normal heart sounds 10/30/2018 None Full Exam - General 1994 Cardiovascular auscultation of heart Overall: no murmurs 10/30/2018 None Full Exam - General 1994 Abdomen abdominal exam Overall: no tenderness 10/30/2018 None Full Exam - General 1994 Abdomen abdominal exam Overall: normal bowel sounds 10/30/2018 None Full Exam - General 1994 Musculoskeletal head and neck Overall: head atraumatic 10/30/2018 None Full Exam - General 1994 Neurologic cranial nerves Overall: crainial nerves 2 - 12 grossly intact 10/30/2018 None Full Exam - General 1994 Psychiatric orientation/consciousness Overall: oriented to person, place and time 10/30/2018 None Full Exam - Cardiology Cardiovascular auscultation of heart Systolic murmur: midsystolic 10/30/2018 None Full Exam - Cardiology Cardiovascular auscultation of heart Systolic murmur grade: II/ 10/30/2018 None Full Exam - ENT Constitutional general appearance Overall: well nourished 06/28/2018 None Full Exam - ENT Constitutional general appearance Overall: well developed 06/28/2018 None Full Exam - ENT Constitutional general appearance Overall: in no acute distress 06/28/2018 None Full Exam - ENT Ears/Nose/Throat otoscopic exam Overall: external auditory canals normal 06/28/2018 None Full Exam - ENT Ears/Nose/Throat otoscopic exam Overall: tympanic membranes normal 06/28/2018 None Full Exam - ENT Ears/Nose/Throat lips/teeth/gingiva Overall: benign lips 06/28/2018 None Full Exam - ENT Ears/Nose/Throat oropharynx Posterior Pharynx: clear post nasal drainage 06/28/2018 None Full Exam - ENT Respiratory inspection Overall: no retractions 06/28/2018 None Full Exam - ENT Respiratory inspection Overall: normal rate None Full Exam - ENT Respiratory auscultation Overall: breath sounds clear bilater ally 06/28/2018 None Full Exam - ENT Respiratory auscultation Left lower lung field: expiratory wh eezes 06/28/2018 None Full Exam - ENT Respiratory auscultation Right lower lung field: expiratory w heezes 06/28/2018 None Full Exam - ENT Cardiovascular auscultation of heart Overall: regular rate 06/28/2018 None Full Exam - ENT Cardiovascular auscultation of heart Overall: normal heart sounds 06/28/2018 None Full Exam - ENT Lymphatic palpation of lymph nodes Overall: anterior cervical chain benign 06/28/2018 None Full Exam - ENT Lymphatic palpation of lymph nodes Overall: posterior cervical chain benign 06/28/2018 None Full Exam - ENT Neurologic mood and affect Overall: normal mood 06/28/2018 None Full Exam - ENT Neurologic mood and affect Overall: normal affect 06/28/2018 None Full Exam - ENT Neurologic orientation Overall: oriented to person, place a nd time 06/28/2018 None Full Exam - ENT Eyes ocu lar motility Overall: extraocular movement intact 06/28/2018 left conjunctiva erythema tous Full Exam - ENT Integument inspection of skin Overall: no rash, lesions 06/28/2018 None Full Exam - General 1994 Constitutional general appearance Overall: well developed 04/04/2018 None Full Exam - General 1994 Constitutional general appearance Overall: in no acute distress 04/04/2018 None Full Exam - General 1994 Constitutional general appearance Overall: well nourished 04/04/2018 None Full Exam - General 1994 Eyes conjunctiva/eyelids Overall: conjunctiva clear 04/04/2018 None Full Exam - General 1994 Eyes pupils and irises Overall: pupils equal, round, reactive to light and accomodation 04/04/2018 None Full Exam - General 1994 Ears/Nose/Throat otoscopic exam Overall: external auditory canals clear 04/04/2018 None Full Exam - General 1994 Ears/Nose/Throat otoscopic exam Overall: tympanic membranes clear 04/04/2018 None Full Exam - General 1994 Ears/Nose/Throat lips/teeth/gingiva Lips: dry 04/04/2018 None Full Exam - General 1994 Ears/Nose/Throat oral cavity/pharynx/larynx Overall: oral mucosa clear 04/04/2018 None Full Exam - General 1994 Respiratory auscultation Overall: breath sounds clear bilaterally 04/04/2018 None Full Exam - General 1994 Respiratory respiratory effort/rhythm Overall: no retractions 04/04/2018 None Full Exam - General 1994 Respiratory respiratory effort/rhythm Overall: normal rate 04/04/2018 None Full Exam - General 1994 Cardiovascular extremities Overall: no clubbing 04/04/2018 None Full Exam - General 1994 Cardiovascular auscultation of heart Overall: regular rate 04/04/2018 None Full Exam - General 1994 Cardiovascular auscultation of heart Overall: normal heart sounds 04/04/2018 None Full Exam - General 1994 Cardiovascular auscultation of heart Overall: no murmurs 04/04/2018 None Full Exam - General 1994 Abdomen abdominal exam Overall: no tenderness 04/04/2018 None Full Exam - General 1994 Abdomen abdominal exam Overall: normal bowel sounds 04/04/2018 None Full Exam - General 1994 Musculoskeletal head and neck Overall: head atraumatic 04/04/2018 None Full Exam - General 1994 Neurologic cranial nerves Overall: crainial nerves 2 - 12 grossly intact 04/04/2018 None Full Exam - General 1994 Psychiatric orientation/consciousness Overall: oriented to person, place and time 04/04/2018 None Full Exam - General 1994 Eyes conjunctiva/eyelids Overall: cornea clear 04/04/2018 None Full Exam - General 1994 Eyes conjunctiva/eyelids Overall: eyelids normal 04/04/2018 None Full Exam - General 1994 Cardiovascular extremities Edema present: pitting 04/04/2018 None Full Exam - General 1994 Cardiovascular extremities Edema present: severity 1+ - 4+: trace 04/04/2018 None Full Exam - General 1994 Psychiatric mood and affect Overall: normal mood and affect 04/04/2018 None Full Exam - General 1994 Integument inspection of skin Location: face 01/19/2018 AK left upper lip Full Exam - General 1994 Constitutional general appearance Overall: well nourished 01/19/2018 None Full Exam - General 1994 Constitutional general appearance Overall: in no acute distress 01/19/2018 None Full Exam - General 1994 Constitutional general appearance Overall: well developed 01/19/2018 None Full Exam - General 1994 Psychiatric orientation/consciousness Overall: oriented to person, place and time 01/19/2018 None Full Exam - General 1994 Constitutional general appearance Overall: well developed 01/05/2018 None Full Exam - General 1994 Constitutional general appearance Overall: in no acute distress 01/05/2018 None Full Exam - General 1994 Constitutional general appearance Overall: well nourished 01/05/2018 None Full Exam - General 1994 Eyes conjunctiva/eyelids Overall: conjunctiva clear 01/05/2018 None Full Exam - General 1994 Eyes pupils and irises Overall: pupils equal, round, reactive to light and accomodation 01/05/2018 None Full Exam - General 1994 Ears/Nose/Throat otoscopic exam Overall: external auditory canals clear 01/05/2018 None Full Exam - General 1994 Ears/Nose/Throat otoscopic exam Overall: tympanic membranes clear 01/05/2018 None Full Exam - General 1994 Ears/Nose/Throat lips/teeth/gingiva Lips: dry 01/05/2018 None Full Exam - General 1994 Ears/Nose/Throat oral cavity/pharynx/larynx Overall: oral mucosa clear 01/05/2018 None Full Exam - General 1994 Respiratory respiratory effort/rhythm Overall: no retractions 01/05/2018 None Full Exam - General 1994 Respiratory respiratory effort/rhythm Overall: normal rate 01/05/2018 None Full Exam - General 1994 Cardiovascular extremities Overall: no clubbing 01/05/2018 None Full Exam - General 1994 Cardiovascular auscultation of heart Overall: regular rate 01/05/2018 None Full Exam - General 1994 Cardiovascular auscultation of heart Overall: normal heart sounds 01/05/2018 None Full Exam - General 1994 Cardiovascular auscultation of heart Overall: no murmurs 01/05/2018 None Full Exam - General 1994 Abdomen abdominal exam Overall: no tenderness 01/05/2018 None Full Exam - General 1994 Abdomen abdominal exam Overall: normal bowel sounds 01/05/2018 None Full Exam - General 1994 Musculoskeletal head and neck Overall: head atraumatic 01/05/2018 None Full Exam - General 1994 Neurologic cranial nerves Overall: crainial nerves 2 - 12 grossly intact 01/05/2018 None Full Exam - General 1994 Psychiatric orientation/consciousness Overall: oriented to person, place and time 01/05/2018 None Full Exam - General 1994 Respiratory auscultation Diffuse: expiratory wheezes 01/05/2018 None Full Exam - General 1994 Integument inspection of skin Location: face 01/05/2018 [place] left upper lip Full Exam - General 1994 Constitutional general appearance Overall: well developed 11/29/2017 None Full Exam - General 1994 Constitutional general appearance Overall: in no acute distress 11/29/2017 None Full Exam - General 1994 Constitutional general appearance Overall: well nourished 11/29/2017 None Full Exam - General 1994 Eyes conjunctiva/eyelids Overall: conjunctiva clear 11/29/2017 None Full Exam - General 1994 Eyes pupils and irises Overall: pupils equal, round, reactive to light and accomodation 11/29/2017 None Full Exam - General 1994 Ears/Nose/Throat otoscopic exam Overall: external auditory canals clear 11/29/2017 None Full Exam - General 1994 Ears/Nose/Throat otoscopic exam Overall: tympanic membranes clear 11/29/2017 None Full Exam - General 1994 Ears/Nose/Throat lips/teeth/gingiva Lips: dry 11/29/2017 None Full Exam - General 1994 Ears/Nose/Throat oral cavity/pharynx/larynx Overall: oral mucosa clear 11/29/2017 None Full Exam - General 1994 Respiratory auscultation Overall: breath sounds clear bilaterally 11/29/2017 None Full Exam - General 1994 Respiratory respiratory effort/rhythm Overall: no retractions 11/29/2017 None Full Exam - General 1994 Respiratory respiratory effort/rhythm Overall: normal rate 11/29/2017 None Full Exam - General 1994 Cardiovascular extremities Overall: no clubbing 11/29/2017 None Full Exam - General 1994 Cardiovascular auscultation of heart Overall: regular rate 11/29/2017 None Full Exam - General 1994 Cardiovascular auscultation of heart Overall: normal heart sounds 11/29/2017 None Full Exam - General 1994 Cardiovascular auscultation of heart Overall: no murmurs 11/29/2017 None Full Exam - General 1994 Abdomen abdominal exam Overall: no tenderness 11/29/2017 None Full Exam - General 1994 Abdomen abdominal exam Overall: normal bowel sounds 11/29/2017 None Full Exam - General 1994 Musculoskeletal head and neck Overall: head atraumatic 11/29/2017 None Full Exam - General 1994 Neurologic cranial nerves Overall: crainial nerves 2 - 12 grossly intact 11/29/2017 None Full Exam - General 1994 Psychiatric orientation/consciousness Overall: oriented to person, place and time 11/29/2017 None Full Exam - Orthopedics Constitutional general appearance Overall: well nourished 10/25/2017 None Full Exam - Orthopedics Constitutional general appearance Overall: well developed 10/25/2017 None Full Exam - Orthopedics Constitutional general appearance Overall: in no acute distress 10/25/2017 None Full Exam - Orthopedics Eyes conjunctiva/eyelids Overall: conjunctiva clear 10/25/2017 None Full Exam - Orthopedics Eyes conjunctiva/eyelids Overall: eyelids normal 10/25/2017 None Full Exam - Orthopedics Ears/Nose/Throat lips/teeth/gingiva Overall: benign lips 10/25/2017 None Full Exam - Orthopedics Ears/Nose/Throat oral cavity/pharynx/larynx Overall: oral mucosa clear 10/25/2017 None Full Exam - Orthopedics Respiratory respiratory effort/rhythm Overall: no retractions 10/25/2017 None Full Exam - Orthopedics Respiratory respiratory effort/rhythm Overall: normal rate 10/25/2017 None Full Exam - Orthopedics Psychiatric orientation/consciousness Overall: oriented to person, place and time 10/25/2017 None Full Exam - Orthopedics Psychiatric mood and affect Overall: normal mood and affect 10/25/2017 None Full Exam - Orthopedics Psychiatric appearance Overall: well-groomed, good eye contact 10/25/2017 None Full Exam - Orthopedics MS: spine/ri b/pelvis insp & palp - S/R/P Hip inspection normal 10/25/2017 None Full Exam - Orthopedics MS: spine/ri b/pelvis insp & palp - S/R/P Hip palpation: left trochanter normal 10/25/2017 tender to palpation over left buttock Full Exam - General 1994 Constitutional general appearance Overall: well developed 09/12/2017 None Full Exam - General 1994 Constitutional general appearance Overall: in no acute distress 09/12/2017 None Full Exam - General 1994 Constitutional general appearance Overall: well nourished 09/12/2017 None Full Exam - General 1994 Eyes conjunctiva/eyelids Overall: conjunctiva clear 09/12/2017 None Full Exam - General 1994 Eyes conjunctiva/eyelids Overall: eyelids normal 09/12/2017 None Full Exam - General 1994 Eyes conjunctiva/eyelids Overall: cornea clear 09/12/2017 None Full Exam - General 1994 Ears/Nose/Throat lips/teeth/gingiva Overall: benign lips 09/12/2017 None Full Exam - General 1995 Ears/Nose/Throat oral cavity/pharynx/larynx Overall: oral mucosa clear 09/12/2017 None Full Exam - General 1994 Ears/Nose/Throat oral cavity/pharynx/larynx Overall: oropharyngeal mucosa clear 09/12/2017 None Full Exam - General 1994 Respiratory respiratory effort/rhythm Overall: normal rate 09/12/2017 None Full Exam - General 1994 Respiratory respiratory effort/rhythm Overall: no retractions 09/12/2017 None Full Exam - General 1994 Respiratory auscultation Overall: breath sounds clear bilaterally 09/12/2017 None Full Exam - General 1994 Cardiovascular auscultation of heart Overall: regular rate 09/12/2017 None Full Exam - General 1994 Cardiovascular auscultation of heart Overall: normal heart sounds 09/12/2017 None Full Exam - General 1994 Musculoskeletal head and neck Overall: head atraumatic 09/12/2017 None Full Exam - General 1994 Musculoskeletal gait and station Overall: normal station 09/12/2017 None Full Exam - General 1994 Musculoskeletal gait and station Overall: normal gait 09/12/2017 None Full Exam - General 1994 Cardiovascular extremities Edema present: pitting 09/12/2017 None Full Exam - General 1994 Cardiovascular extremities Edema present: severity 1+ - 4+: 1+ 09/12/2017 None Full Exam - General 1994 Cardiovascular extremities Edema present: bilateral 09/12/2017 None Full Exam - General 1994 Cardiovascular extremities Edema present: to leg 09/12/2017 None Full Exam - General 1994 Neurologic cranial nerves Overall: crainial nerves 2 - 12 grossly intact 09/12/2017 None Full Exam - General 1994 Psychiatric orientation/consciousness Overall: oriented to person, place and time 09/12/2017 None Full Exam - General 1994 Psychiatric mood and affect Overall: normal mood and affect 09/12/2017 None Full Exam - General 1994 Psychiatric appearance Overall: well-groomed, good eye contact 09/12/2017 None Full Exam - General 1994 Constitutional general appearance Overall: well developed 06/14/2017 None Full Exam - General 1994 Constitutional general appearance Overall: in no acute distress 06/14/2017 None Full Exam - General 1994 Constitutional general appearance Overall: well nourished 06/14/2017 None Full Exam - General 1994 Eyes conjunctiva/eyelids Overall: conjunctiva clear 06/14/2017 None Full Exam - General 1994 Eyes conjunctiva/eyelids Overall: eyelids normal 06/14/2017 None Full Exam - General 1994 Ears/Nose/Throat lips/teeth/gingiva Overall: benign lips 06/14/2017 None Full Exam - General 1994 Ears/Nose/Throat oral cavity/pharynx/larynx Overall: oral mucosa clear 06/14/2017 None Full Exam - General 1994 Ears/Nose/Throat oral cavity/pharynx/larynx Overall: oropharyngeal mucosa clear 06/14/2017 None Full Exam - General 1994 Respiratory respiratory effort/rhythm Overall: no retractions 06/14/2017 None Full Exam - General 1994 Respiratory respiratory effort/rhythm Overall: normal rate 06/14/2017 None Full Exam - General 1994 Cardiovascular auscultation of heart Overall: regular rate 06/14/2017 None Full Exam - General 1994 Cardiovascular auscultation of heart Overall: normal heart sounds 06/14/2017 None Full Exam - General 1994 Neurologic cranial nerves Overall: crainial nerves 2 - 12 grossly intact 06/14/2017 None Full Exam - General 1994 Psychiatric orientation/consciousness Overall: oriented to person, place and time 06/14/2017 None Full Exam - General 1994 Psychiatric mood and affect Overall: normal mood and affect 06/14/2017 None Full Exam - General 1994 Psychiatric appearance Overall: well-groomed, good eye contact 06/14/2017 None Full Exam - General 1994 Ears/Nose/Throat otoscopic exam Overall: external auditory canals clear 06/14/2017 None Full Exam - General 1994 Ears/Nose/Throat otoscopic exam Overall: tympanic membranes clear 06/14/2017 None Full Exam - General 1994 Respiratory auscultation Diffuse: diminished 06/14/2017 None Full Exam - General 1994 Respiratory auscultation Lower lung field: expiratory wheezes 06/14/2017 faint Full Exam - General 1994 Respiratory auscultation Upper lung field: expiratory wheezes 06/14/2017 faint Full Exam - General 1994 Constitutional general appearance Overall: well developed 05/10/2017 None Full Exam - General 1994 Constitutional general appearance Overall: in no acute distress 05/10/2017 None Full Exam - General 1994 Constitutional general appearance Overall: well nourished 05/10/2017 None Full Exam - General 1994 Eyes conjunctiva/eyelids Overall: conjunctiva clear 05/10/2017 None Full Exam - General 1994 Eyes conjunctiva/eyelids Overall: eyelids normal 05/10/2017 None Full Exam - General 1994 Ears/Nose/Throat lips/teeth/gingiva Overall: benign lips 05/10/2017 None Full Exam - General 1994 Ears/Nose/Throat oral cavity/pharynx/larynx Overall: oral mucosa clear 05/10/2017 None Full Exam - General 1994 Ears/Nose/Throat oral cavity/pharynx/larynx Overall: oropharyngeal mucosa clear 05/10/2017 None Full Exam - General 1994 Respiratory respiratory effort/rhythm Overall: normal rate 05/10/2017 None Full Exam - General 1994 Respiratory respiratory effort/rhythm Overall: no retractions 05/10/2017 None Full Exam - General 1994 Respiratory auscultation Overall: breath sounds clear bilaterally 05/10/2017 None Full Exam - General 1994 Respiratory auscultation Diffuse: diminished 05/10/2017 None Full Exam - General 1994 Cardiovascular auscultation of heart Overall: normal heart sounds 05/10/2017 None Full Exam - General 1994 Cardiovascular auscultation of heart Overall: regular rate 05/10/2017 None Full Exam - General 1994 Cardiovascular extremities Edema present: pitting 05/10/2017 None Full Exam - General 1994 Cardiovascular extremities Edema present: severity 1+ - 4+: trace to 1+ in the left leg and 2-3+ in the right leg 05/10/2017 None Full Exam - General 1994 Cardiovascular inspection of pedal pulses Overall: strong, equal bilaterally 05/10/2017 None Full Exam - General 1994 Neurologic cranial nerves Overall: crainial nerves 2 - 12 grossly intact 05/10/2017 None Full Exam - General 1994 Psychiatric orientation/consciousness Overall: oriented to person, place and time 05/10/2017 None Full Exam - General 1994 Psychiatric mood and affect Overall: normal mood and affect 05/10/2017 None Full Exam - General 1994 Psychiatric appearance Overall: well-groomed, good eye contact 05/10/2017 None Full Exam - General 1994 Constitutional general appearance Overall: well developed 04/19/2017 None Full Exam - General 1994 Constitutional general appearance Overall: in no acute distress 04/19/2017 None Full Exam - General 1994 Constitutional general appearance Overall: well nourished 04/19/2017 None Full Exam - General 1994 Eyes conjunctiva/eyelids Overall: conjunctiva clear 04/19/2017 None Full Exam - General 1994 Ears/Nose/Throat otoscopic exam Overall: external auditory canals clear 04/19/2017 None Full Exam - General 1994 Ears/Nose/Throat oral cavity/pharynx/larynx Overall: oral mucosa clear 04/19/2017 None Full Exam - General 1994 Respiratory respiratory effort/rhythm Overall: no retractions 04/19/2017 None Full Exam - General 1994 Respiratory respiratory effort/rhythm Overall: normal rate 04/19/2017 None Full Exam - General 1994 Cardiovascular extremities Overall: no clubbing 04/19/2017 None Full Exam - General 1994 Cardiovascular auscultation of heart Overall: regular rate 04/19/2017 None Full Exam - General 1994 Cardiovascular auscultation of heart Overall: normal heart sounds 04/19/2017 None Full Exam - General 1994 Abdomen abdominal exam Overall: normal bowel sounds 04/19/2017 None Full Exam - General 1994 Musculoskeletal head and neck Overall: head atraumatic 04/19/2017 None Full Exam - General 1994 Neurologic cranial nerves Overall: crainial nerves 2 - 12 grossly intact 04/19/2017 None Full Exam - General 1994 Psychiatric orientation/consciousness Overall: oriented to person, place and time 04/19/2017 None Full Exam - General 1994 Ears/Nose/Throat otoscopic exam Overall: tympanic membranes clear 04/19/2017 None Full Exam - General 1994 Ears/Nose/Throat lips/teeth/gingiva Overall: benign lips 04/19/2017 None Full Exam - General 1994 Respiratory auscultation Diffuse: diminished 04/19/2017 None Full Exam - General 1994 Respiratory auscultation Lower lung field: expiratory wheezes 04/19/2017 faint Full Exam - General 1994 Psychiatric mood and affect Overall: normal mood and affect 04/19/2017 None Full Exam - General 1994 Psychiatric appearance Overall: well-groomed, good eye contact 04/19/2017 None Full Exam - General 1994 Constitutional general appearance Overall: well developed 03/27/2017 None Full Exam - General 1994 Constitutional general appearance Overall: in no acute distress 03/27/2017 None Full Exam - General 1994 Constitutional general appearance Overall: well nourished 03/27/2017 None Full Exam - General 1994 Eyes conjunctiva/eyelids Overall: conjunctiva clear 03/27/2017 None Full Exam - General 1994 Eyes pupils and irises Overall: pupils equal, round, reactive to light and accomodation 03/27/2017 None Full Exam - General 1994 Ears/Nose/Throat otoscopic exam Overall: external auditory canals clear 03/27/2017 None Full Exam - General 1994 Ears/Nose/Throat otoscopic exam Overall: tympanic membranes clear 03/27/2017 None Full Exam - General 1994 Ears/Nose/Throat oral cavity/pharynx/larynx Overall: oral mucosa clear 03/27/2017 None Full Exam - General 1994 Respiratory auscultation Overall: breath sounds clear bilaterally 03/27/2017 None Full Exam - General 1994 Respiratory respiratory effort/rhythm Overall: no retractions 03/27/2017 None Full Exam - General 1994 Respiratory respiratory effort/rhythm Overall: normal rate 03/27/2017 None Full Exam - General 1994 Cardiovascular extremities Overall: no clubbing 03/27/2017 None Full Exam - General 1994 Cardiovascular auscultation of heart Overall: regular rate 03/27/2017 None Full Exam - General 1994 Cardiovascular auscultation of heart Overall: normal heart sounds 03/27/2017 None Full Exam - General 1994 Cardiovascular auscultation of heart Overall: no murmurs 03/27/2017 None Full Exam - General 1994 Abdomen abdominal exam Overall: no tenderness 03/27/2017 None Full Exam - General 1994 Abdomen abdominal exam Overall: normal bowel sounds 03/27/2017 None Full Exam - General 1994 Musculoskeletal head and neck Overall: head atraumatic 03/27/2017 None Full Exam - General 1994 Neurologic cranial nerves Overall: crainial nerves 2 - 12 grossly intact 03/27/2017 None Full Exam - General 1994 Psychiatric orientation/consciousness Overall: oriented to person, place and time 03/27/2017 None Full Exam - General 1994 Integument inspection of skin Location: left arm 03/27/2017 small healing bruise left wrist Full Exam - General 1994 Constitutional general appearance Overall: well developed 01/26/2017 None Full Exam - General 1994 Constitutional general appearance Overall: in no acute distress 01/26/2017 None Full Exam - General 1994 Constitutional general appearance Overall: well nourished 01/26/2017 None Full Exam - General 1994 Eyes conjunctiva/eyelids Overall: conjunctiva clear 01/26/2017 None Full Exam - General 1994 Eyes pupils and irises Overall: pupils equal, round, reactive to light and accomodation 01/26/2017 None Full Exam - General 1994 Ears/Nose/Throat otoscopic exam Overall: external auditory canals clear 01/26/2017 None Full Exam - General 1994 Ears/Nose/Throat otoscopic exam Overall: tympanic membranes clear 01/26/2017 None Full Exam - General 1994 Ears/Nose/Throat lips/teeth/gingiva Lips: dry 01/26/2017 None Full Exam - General 1994 Ears/Nose/Throat oral cavity/pharynx/larynx Overall: oral mucosa clear 01/26/2017 None Full Exam - General 1994 Respiratory auscultation Overall: breath sounds clear bilaterally 01/26/2017 None Full Exam - General 1994 Respiratory respiratory effort/rhythm Overall: no retractions 01/26/2017 None Full Exam - General 1994 Respiratory respiratory effort/rhythm Overall: normal rate 01/26/2017 None Full Exam - General 1994 Cardiovascular extremities Overall: no clubbing 01/26/2017 None Full Exam - General 1994 Cardiovascular auscultation of heart Overall: regular rate 01/26/2017 None Full Exam - General 1994 Cardiovascular auscultation of heart Overall: normal heart sounds 01/26/2017 None Full Exam - General 1994 Cardiovascular auscultation of heart Overall: no murmurs 01/26/2017 None Full Exam - General 1994 Abdomen abdominal exam Overall: no tenderness 01/26/2017 None Full Exam - General 1994 Abdomen abdominal exam Overall: normal bowel sounds 01/26/2017 None Full Exam - General 1994 Musculoskeletal head and neck Overall: head atraumatic 01/26/2017 None Full Exam - General 1994 Neurologic cranial nerves Overall: crainial nerves 2 - 12 grossly intact 01/26/2017 None Full Exam - General 1994 Psychiatric orientation/consciousness Overall: oriented to person, place and time 01/26/2017 None Full Exam - ENT Constitutional general appearance Overall: well nourished 12/07/2016 None Full Exam - ENT Constitutional general appearance Overall: well developed 12/07/2016 None Full Exam - ENT Constitutional general appearance Overall: in no acute distress 12/07/2016 None Full Exam - ENT Ears/Nose/Throat otoscopic exam Overall: external auditory canals normal 12/07/2016 None Full Exam - ENT Ears/Nose/Throat otoscopic exam Overall: tympanic membranes normal 12/07/2016 None Full Exam - ENT Ears/Nose/Throat lips/teeth/gingiva Overall: benign lips 12/07/2016 None Full Exam - ENT Ears/Nose/Throat oropharynx Posterior Pharynx: clear post nasal drainage 12/07/2016 None Full Exam - ENT Respiratory inspection Overall: no retractions 12/07/2016 None Full Exam - ENT Respiratory inspection Overall: normal rate None Full Exam - ENT Respiratory auscultation Overall: breath sounds clear bilater ally 12/07/2016 None Full Exam - ENT Respiratory auscultation Left lower lung field: expiratory wh eezes 12/07/2016 None Full Exam - ENT Respiratory auscultation Right lower lung field: expiratory w heezes 12/07/2016 None Full Exam - ENT Cardiovascular auscultation of heart Overall: regular rate 12/07/2016 None Full Exam - ENT Cardiovascular auscultation of heart Overall: normal heart sounds 12/07/2016 None Full Exam - ENT Lymphatic palpation of lymph nodes Overall: anterior cervical chain benign 12/07/2016 None Full Exam - ENT Lymphatic palpation of lymph nodes Overall: posterior cervical chain benign 12/07/2016 None Full Exam - ENT Neurologic mood and affect Overall: normal mood 12/07/2016 None Full Exam - ENT Neurologic mood and affect Overall: normal affect 12/07/2016 None Full Exam - ENT Neurologic orientation Overall: oriented to person, place a nd time 12/07/2016 None Full Exam - ENT Ears/Nose/Throat oropharynx Oral mucosa: thrush 12/07/2016 None Full Exam - ENT Constitutional general appearance Overall: well nourished 11/28/2016 None Full Exam - ENT Constitutional general appearance Overall: well developed 11/28/2016 None Full Exam - ENT Constitutional general appearance Overall: in no acute distress 11/28/2016 None Full Exam - ENT Ears/Nose/Throat otoscopic exam Overall: external auditory canals normal 11/28/2016 None Full Exam - ENT Ears/Nose/Throat lips/teeth/gingiva Overall: benign lips 11/28/2016 None Full Exam - ENT Ears/Nose/Throat oropharynx Posterior Pharynx: clear post nasal drainage 11/28/2016 None Full Exam - ENT Respiratory inspection Overall: no retractions 11/28/2016 None Full Exam - ENT Respiratory inspection Overall: normal rate None Full Exam - ENT Respiratory auscultation Overall: breath sounds clear bilater ally 11/28/2016 None Full Exam - ENT Respiratory auscultation Left lower lung field: expiratory wh eezes 11/28/2016 None Full Exam - ENT Respiratory auscultation Right lower lung field: expiratory w heezes 11/28/2016 None Full Exam - ENT Cardiovascular auscultation of heart Overall: regular rate 11/28/2016 None Full Exam - ENT Cardiovascular auscultation of heart Overall: normal heart sounds 11/28/2016 None Full Exam - ENT Lymphatic palpation of lymph nodes Overall: anterior cervical chain benign 11/28/2016 None Full Exam - ENT Lymphatic palpation of lymph nodes Overall: posterior cervical chain benign 11/28/2016 None Full Exam - ENT Neurologic mood and affect Overall: normal mood 11/28/2016 None Full Exam - ENT Neurologic mood and affect Overall: normal affect 11/28/2016 None Full Exam - ENT Neurologic orientation Overall: oriented to person, place a nd time 11/28/2016 None Full Exam - ENT Ears/Nose/Throat otoscopic exam Overall: tympanic membranes normal 11/28/2016 None Full Exam - ENT Constitutional general appearance Overall: well nourished 11/15/2016 None Full Exam - ENT Constitutional general appearance Overall: well developed 11/15/2016 None Full Exam - ENT Constitutional general appearance Overall: in no acute distress 11/15/2016 None Full Exam - ENT Ears/Nose/Throat otoscopic exam Overall: external auditory canals normal 11/15/2016 None Full Exam - ENT Ears/Nose/Throat otoscopic exam Left tympanic membrane: air-fluid le janis 11/15/2016 None Full Exam - ENT Ears/Nose/Throat otoscopic exam Right tympanic membrane: air-fluid level 11/15/2016 None Full Exam - ENT Ears/Nose/Throat lips/teeth/gingiva Overall: benign lips 11/15/2016 None Full Exam - ENT Ears/Nose/Throat oropharynx Posterior Pharynx: clear post nasal drainage 11/15/2016 None Full Exam - ENT Respiratory inspection Overall: no retractions 11/15/2016 None Full Exam - ENT Respiratory inspection Overall: normal rate 03/2017 None Full Exam - ENT Respiratory auscultation Overall: breath sounds clear bilater ally 11/15/2016 None Full Exam - ENT Respiratory auscultation Left lower lung field: expiratory wh eezes 11/15/2016 None Full Exam - ENT Respiratory auscultation Right lower lung field: expiratory w heezes 11/15/2016 None Full Exam - ENT Cardiovascular auscultation of heart Overall: regular rate 11/15/2016 None Full Exam - ENT Cardiovascular auscultation of heart Overall: normal heart sounds 11/15/2016 None Full Exam - ENT Lymphatic palpation of lymph nodes Overall: anterior cervical chain benign 11/15/2016 None Full Exam - ENT Lymphatic palpation of lymph nodes Overall: posterior cervical chain benign 11/15/2016 None Full Exam - ENT Neurologic mood and affect Overall: normal mood 11/15/2016 None Full Exam - ENT Neurologic mood and affect Overall: normal affect 11/15/2016 None Full Exam - ENT Neurologic orientation Overall: oriented to person, place a nd time 11/15/2016 None Full Exam - ENT Constitutional general appearance Overall: well nourished 10/17/2016 None Full Exam - ENT Constitutional general appearance Overall: well developed 10/17/2016 None Full Exam - ENT Constitutional general appearance Overall: in no acute distress 10/17/2016 None Full Exam - ENT Ears/Nose/Throat otoscopic exam Overall: external auditory canals normal 10/17/2016 None Full Exam - ENT Ears/Nose/Throat otoscopic exam Left tympanic membrane: air-fluid le janis 10/17/2016 None Full Exam - ENT Ears/Nose/Throat otoscopic exam Right tympanic membrane: air-fluid level 10/17/2016 None Full Exam - ENT Ears/Nose/Throat nasal mucosa, septum, turbinates Drainage: clear 10/17/2016 None Full Exam - ENT Ears/Nose/Throat nasal mucosa, septum, turbinates Drainage: yellow 10/17/2016 None Full Exam - ENT Ears/Nose/Throat lips/teeth/gingiva Overall: benign lips 10/17/2016 None Full Exam - ENT Ears/Nose/Throat oropharynx Posterior Pharynx: clear post nasal drainage 10/17/2016 None Full Exam - ENT Respiratory inspection Overall: no retractions 10/17/2016 None Full Exam - ENT Respiratory inspection Overall: normal rate 02/2017 None Full Exam - ENT Respiratory auscultation Overall: breath sounds clear bilater ally 10/17/2016 None Full Exam - ENT Cardiovascular auscultation of heart Overall: regular rate 10/17/2016 None Full Exam - ENT Cardiovascular auscultation of heart Overall: normal heart sounds 10/17/2016 None Full Exam - ENT Lymphatic palpation of lymph nodes Overall: anterior cervical chain benign 10/17/2016 None Full Exam - ENT Lymphatic palpation of lymph nodes Overall: posterior cervical chain benign 10/17/2016 None Full Exam - ENT Neurologic mood and affect Overall: normal mood 10/17/2016 None Full Exam - ENT Neurologic mood and affect Overall: normal affect 10/17/2016 None Full Exam - ENT Neurologic orientation Overall: oriented to person, place a nd time 10/17/2016 None Full Exam - ENT Face and Head palpation Left frontal sinus: tender 10/17/2016 None Full Exam - ENT Face and Head palpation Right frontal sinus: tender 10/17/2016 None Full Exam - ENT Respiratory auscultation Left lower lung field: expiratory wh eezes 10/17/2016 None Full Exam - ENT Respiratory auscultation Right lower lung field: expiratory w heezes 10/17/2016 None Full Exam - General 1994 Constitutional general appearance Overall: well developed 09/28/2016 None Full Exam - General 1994 Constitutional general appearance Overall: in no acute distress 09/28/2016 None Full Exam - General 1994 Constitutional general appearance Overall: well nourished 09/28/2016 None Full Exam - General 1994 Eyes conjunctiva/eyelids Overall: conjunctiva clear 09/28/2016 None Full Exam - General 1994 Eyes pupils and irises Overall: pupils equal, round, reactive to light and accomodation 09/28/2016 None Full Exam - General 1994 Ears/Nose/Throat otoscopic exam Overall: external auditory canals clear 09/28/2016 None Full Exam - General 1994 Ears/Nose/Throat otoscopic exam Overall: tympanic membranes clear 09/28/2016 None Full Exam - General 1994 Ears/Nose/Throat lips/teeth/gingiva Lips: dry 09/28/2016 None Full Exam - General 1994 Ears/Nose/Throat oral cavity/pharynx/larynx Overall: oral mucosa clear 09/28/2016 None Full Exam - General 1994 Respiratory auscultation Overall: breath sounds clear bilaterally 09/28/2016 None Full Exam - General 1994 Respiratory respiratory effort/rhythm Overall: no retractions 09/28/2016 None Full Exam - General 1994 Respiratory respiratory effort/rhythm Overall: normal rate 09/28/2016 None Full Exam - General 1994 Cardiovascular extremities Overall: no clubbing 09/28/2016 None Full Exam - General 1994 Cardiovascular auscultation of heart Overall: regular rate 09/28/2016 None Full Exam - General 1994 Cardiovascular auscultation of heart Overall: normal heart sounds 09/28/2016 None Full Exam - General 1994 Cardiovascular auscultation of heart Overall: no murmurs 09/28/2016 None Full Exam - General 1994 Abdomen abdominal exam Overall: no tenderness 09/28/2016 None Full Exam - General 1994 Abdomen abdominal exam Overall: normal bowel sounds 09/28/2016 None Full Exam - General 1994 Musculoskeletal head and neck Overall: head atraumatic 09/28/2016 None Full Exam - General 1994 Neurologic cranial nerves Overall: crainial nerves 2 - 12 grossly intact 09/28/2016 None Full Exam - General 1994 Psychiatric orientation/consciousness Overall: oriented to person, place and time 09/28/2016 None Full Exam - General 1994 Constitutional general appearance Overall: well developed 06/29/2016 None Full Exam - General 1994 Constitutional general appearance Overall: in no acute distress 06/29/2016 None Full Exam - General 1994 Constitutional general appearance Overall: well nourished 06/29/2016 None Full Exam - General 1994 Eyes conjunctiva/eyelids Overall: conjunctiva clear 06/29/2016 None Full Exam - General 1994 Respiratory respiratory effort/rhythm Overall: no retractions 06/29/2016 None Full Exam - General 1994 Respiratory respiratory effort/rhythm Overall: normal rate 06/29/2016 None Full Exam - General 1994 Cardiovascular extremities Overall: no clubbing 06/29/2016 None Full Exam - General 1994 Cardiovascular auscultation of heart Overall: regular rate 06/29/2016 None Full Exam - General 1994 Cardiovascular auscultation of heart Overall: normal heart sounds 06/29/2016 None Full Exam - General 1994 Musculoskeletal head and neck Overall: head atraumatic 06/29/2016 None Full Exam - General 1994 Neurologic cranial nerves Overall: crainial nerves 2 - 12 grossly intact 06/29/2016 None Full Exam - General 1994 Psychiatric orientation/consciousness Overall: oriented to person, place and time 06/29/2016 None Full Exam - General 1994 Ears/Nose/Throat lips/teeth/gingiva Overall: benign lips 06/29/2016 None Full Exam - General 1994 Respiratory auscultation Overall: breath sounds clear bilaterally 06/29/2016 None Full Exam - General 1994 Integument inspection of skin Location: scalp 06/29/2016 None Full Exam - General 1994 Integument inspection of skin Dermatitis: dryness/flaking 06/29/2016 None Full Exam - General 1994 Integument inspection of skin Dermatitis: scaling 06/29/2016 None Full Exam - General 1994 Integument inspection of skin Dermatitis: thickened 06/29/2016 None Full Exam - General 1994 Psychiatric mood and affect Overall: normal mood and affect 06/29/2016 None Full Exam - General 1994 Psychiatric appearance Overall: well-groomed, good eye contact 06/29/2016 None Full Exam - General 1994 Constitutional general appearance Overall: well developed 06/01/2016 None Full Exam - General 1994 Constitutional general appearance Overall: in no acute distress 06/01/2016 None Full Exam - General 1994 Constitutional general appearance Overall: well nourished 06/01/2016 None Full Exam - General 1994 Eyes conjunctiva/eyelids Overall: conjunctiva clear 06/01/2016 None Full Exam - General 1994 Eyes pupils and irises Overall: pupils equal, round, reactive to light and accomodation 06/01/2016 None Full Exam - General 1994 Ears/Nose/Throat otoscopic exam Overall: external auditory canals clear 06/01/2016 None Full Exam - General 1994 Ears/Nose/Throat otoscopic exam Overall: tympanic membranes clear 06/01/2016 None Full Exam - General 1994 Ears/Nose/Throat lips/teeth/gingiva Lips: dry 06/01/2016 None Full Exam - General 1994 Ears/Nose/Throat oral cavity/pharynx/larynx Overall: oral mucosa clear 06/01/2016 None Full Exam - General 1994 Respiratory auscultation Overall: breath sounds clear bilaterally 06/01/2016 None Full Exam - General 1994 Respiratory respiratory effort/rhythm Overall: no retractions 06/01/2016 None Full Exam - General 1994 Respiratory respiratory effort/rhythm Overall: normal rate 06/01/2016 None Full Exam - General 1994 Cardiovascular extremities Overall: no clubbing 06/01/2016 None Full Exam - General 1994 Cardiovascular auscultation of heart Overall: regular rate 06/01/2016 None Full Exam - General 1994 Cardiovascular auscultation of heart Overall: normal heart sounds 06/01/2016 None Full Exam - General 1994 Cardiovascular auscultation of heart Overall: no murmurs 06/01/2016 None Full Exam - General 1994 Abdomen abdominal exam Overall: no tenderness 06/01/2016 None Full Exam - General 1994 Abdomen abdominal exam Overall: normal bowel sounds 06/01/2016 None Full Exam - General 1994 Musculoskeletal head and neck Overall: head atraumatic 06/01/2016 None Full Exam - General 1994 Neurologic cranial nerves Overall: crainial nerves 2 - 12 grossly intact 06/01/2016 None Full Exam - General 1994 Psychiatric orientation/consciousness Overall: oriented to person, place and time 06/01/2016 None Full Exam - General 1994 Constitutional general appearance Overall: well developed 05/11/2016 None Full Exam - General 1994 Constitutional general appearance Overall: in no acute distress 05/11/2016 None Full Exam - General 1994 Constitutional general appearance Overall: well nourished 05/11/2016 None Full Exam - General 1994 Eyes conjunctiva/eyelids Overall: conjunctiva clear 05/11/2016 None Full Exam - General 1994 Eyes pupils and irises Overall: pupils equal, round, reactive to light and accomodation 05/11/2016 None Full Exam - General 1994 Ears/Nose/Throat otoscopic exam Overall: external auditory canals clear 05/11/2016 None Full Exam - General 1994 Ears/Nose/Throat otoscopic exam Overall: tympanic membranes clear 05/11/2016 None Full Exam - General 1994 Ears/Nose/Throat oral cavity/pharynx/larynx Overall: oral mucosa clear 05/11/2016 None Full Exam - General 1994 Respiratory auscultation Overall: breath sounds clear bilaterally 05/11/2016 None Full Exam - General 1994 Respiratory respiratory effort/rhythm Overall: no retractions 05/11/2016 None Full Exam - General 1994 Respiratory respiratory effort/rhythm Overall: normal rate 05/11/2016 None Full Exam - General 1994 Cardiovascular extremities Overall: no clubbing 05/11/2016 None Full Exam - General 1994 Cardiovascular auscultation of heart Overall: regular rate 05/11/2016 None Full Exam - General 1994 Cardiovascular auscultation of heart Overall: normal heart sounds 05/11/2016 None Full Exam - General 1994 Cardiovascular auscultation of heart Overall: no murmurs 05/11/2016 None Full Exam - General 1994 Abdomen abdominal exam Overall: no tenderness 05/11/2016 None Full Exam - General 1994 Abdomen abdominal exam Overall: normal bowel sounds 05/11/2016 None Full Exam - General 1994 Musculoskeletal head and neck Overall: head atraumatic 05/11/2016 None Full Exam - General 1994 Neurologic cranial nerves Overall: crainial nerves 2 - 12 grossly intact 05/11/2016 None Full Exam - General 1994 Psychiatric orientation/consciousness Overall: oriented to person, place and time 05/11/2016 None Full Exam - General 1994 Constitutional general appearance Overall: well developed 04/05/2016 None Full Exam - General 1994 Constitutional general appearance Overall: in no acute distress 04/05/2016 None Full Exam - General 1994 Constitutional general appearance Overall: well nourished 04/05/2016 None Full Exam - General 1994 Eyes conjunctiva/eyelids Overall: conjunctiva clear 04/05/2016 None Full Exam - General 1994 Eyes pupils and irises Overall: pupils equal, round, reactive to light and accomodation 04/05/2016 None Full Exam - General 1994 Ears/Nose/Throat otoscopic exam Overall: external auditory canals clear 04/05/2016 None Full Exam - General 1994 Ears/Nose/Throat otoscopic exam Overall: tympanic membranes clear 04/05/2016 None Full Exam - General 1994 Ears/Nose/Throat oral cavity/pharynx/larynx Overall: oral mucosa clear 04/05/2016 None Full Exam - General 1994 Respiratory auscultation Overall: breath sounds clear bilaterally 04/05/2016 None Full Exam - General 1994 Respiratory respiratory effort/rhythm Overall: no retractions 04/05/2016 None Full Exam - General 1994 Respiratory respiratory effort/rhythm Overall: normal rate 04/05/2016 None Full Exam - General 1994 Cardiovascular extremities Overall: no clubbing 04/05/2016 None Full Exam - General 1994 Cardiovascular auscultation of heart Overall: regular rate 04/05/2016 None Full Exam - General 1994 Cardiovascular auscultation of heart Overall: normal heart sounds 04/05/2016 None Full Exam - General 1994 Cardiovascular auscultation of heart Overall: no murmurs 04/05/2016 None Full Exam - General 1994 Abdomen abdominal exam Overall: no tenderness 04/05/2016 None Full Exam - General 1994 Abdomen abdominal exam Overall: normal bowel sounds 04/05/2016 None Full Exam - General 1994 Musculoskeletal head and neck Overall: head atraumatic 04/05/2016 None Full Exam - General 1994 Neurologic cranial nerves Overall: crainial nerves 2 - 12 grossly intact 04/05/2016 None Full Exam - General 1994 Psychiatric orientation/consciousness Overall: oriented to person, place and time 04/05/2016 None Full Exam - General 1994 Ears/Nose/Throat lips/teeth/gingiva Lips: dry 04/05/2016 None Full Exam - General 1994 Constitutional general appearance Overall: well developed 04/01/2016 None Full Exam - General 1994 Constitutional general appearance Overall: in no acute distress 04/01/2016 None Full Exam - General 1994 Constitutional general appearance Overall: well nourished 04/01/2016 None Full Exam - General 1994 Eyes conjunctiva/eyelids Overall: conjunctiva clear 04/01/2016 None Full Exam - General 1994 Ears/Nose/Throat lips/teeth/gingiva Lips: dry 04/01/2016 None Full Exam - General 1994 Ears/Nose/Throat oral cavity/pharynx/larynx Overall: oral mucosa clear 04/01/2016 None Full Exam - General 1994 Respiratory auscultation Overall: breath sounds clear bilaterally 04/01/2016 None Full Exam - General 1994 Respiratory respiratory effort/rhythm Overall: no retractions 04/01/2016 None Full Exam - General 1994 Respiratory respiratory effort/rhythm Overall: normal rate 04/01/2016 None Full Exam - General 1994 Cardiovascular extremities Overall: no clubbing 04/01/2016 None Full Exam - General 1994 Cardiovascular auscultation of heart Overall: regular rate 04/01/2016 None Full Exam - General 1994 Cardiovascular auscultation of heart Overall: normal heart sounds 04/01/2016 None Full Exam - General 1994 Musculoskeletal head and neck Overall: head atraumatic 04/01/2016 None Full Exam - General 1994 Neurologic cranial nerves Overall: crainial nerves 2 - 12 grossly intact 04/01/2016 None Full Exam - General 1994 Psychiatric orientation/consciousness Overall: oriented to person, place and time 04/01/2016 None Full Exam - General 1994 Ears/Nose/Throat otoscopic exam Overall: external auditory canals clear 04/01/2016 None Full Exam - General 1994 Ears/Nose/Throat otoscopic exam Tympanic membrane: air-fluid level 04/01/2016 None Full Exam - General 1994 Psychiatric mood and affect Overall: normal mood and affect 04/01/2016 None Full Exam - General 1994 Constitutional general appearance Overall: well developed 01/26/2016 None Full Exam - General 1994 Constitutional general appearance Overall: in no acute distress 01/26/2016 None Full Exam - General 1994 Constitutional general appearance Overall: well nourished 01/26/2016 None Full Exam - General 1994 Eyes conjunctiva/eyelids Overall: conjunctiva clear 01/26/2016 None Full Exam - General 1994 Eyes pupils and irises Overall: pupils equal, round, reactive to light and accomodation 01/26/2016 None Full Exam - General 1994 Ears/Nose/Throat otoscopic exam Overall: external auditory canals clear 01/26/2016 None Full Exam - General 1994 Ears/Nose/Throat otoscopic exam Overall: tympanic membranes clear 01/26/2016 None Full Exam - General 1994 Ears/Nose/Throat oral cavity/pharynx/larynx Overall: oral mucosa clear 01/26/2016 None Full Exam - General 1994 Respiratory auscultation Overall: breath sounds clear bilaterally 01/26/2016 None Full Exam - General 1994 Respiratory respiratory effort/rhythm Overall: no retractions 01/26/2016 None Full Exam - General 1994 Respiratory respiratory effort/rhythm Overall: normal rate 01/26/2016 None Full Exam - General 1994 Cardiovascular extremities Overall: no clubbing 01/26/2016 None Full Exam - General 1994 Cardiovascular auscultation of heart Overall: regular rate 01/26/2016 None Full Exam - General 1994 Cardiovascular auscultation of heart Overall: normal heart sounds 01/26/2016 None Full Exam - General 1994 Cardiovascular auscultation of heart Overall: no murmurs 01/26/2016 None Full Exam - General 1994 Abdomen abdominal exam Overall: no tenderness 01/26/2016 None Full Exam - General 1994 Abdomen abdominal exam Overall: normal bowel sounds 01/26/2016 None Full Exam - General 1994 Musculoskeletal head and neck Overall: head atraumatic 01/26/2016 None Full Exam - General 1994 Neurologic cranial nerves Overall: crainial nerves 2 - 12 grossly intact 01/26/2016 None Full Exam - General 1994 Psychiatric orientation/consciousness Overall: oriented to person, place and time 01/26/2016 None Full Exam - General 1994 Constitutional general appearance Overall: well developed 12/21/2015 None Full Exam - General 1994 Constitutional general appearance Overall: in no acute distress 12/21/2015 None Full Exam - General 1994 Constitutional general appearance Overall: well nourished 12/21/2015 None Full Exam - General 1994 Respiratory auscultation Overall: breath sounds clear bilaterally 12/21/2015 None Full Exam - General 1994 Respiratory respiratory effort/rhythm Overall: no retractions 12/21/2015 None Full Exam - General 1994 Respiratory respiratory effort/rhythm Overall: normal rate 12/21/2015 None Full Exam - General 1994 Cardiovascular extremities Overall: no clubbing 12/21/2015 None Full Exam - General 1994 Cardiovascular auscultation of heart Overall: regular rate 12/21/2015 None Full Exam - General 1994 Cardiovascular auscultation of heart Overall: normal heart sounds 12/21/2015 None Full Exam - General 1994 Abdomen abdominal exam Overall: no tenderness 12/21/2015 None Full Exam - General 1994 Abdomen abdominal exam Overall: normal bowel sounds 12/21/2015 None Full Exam - General 1994 Neurologic cranial nerves Overall: crainial nerves 2 - 12 grossly intact 12/21/2015 None Full Exam - General 1994 Psychiatric orientation/consciousness Overall: oriented to person, place and time 12/21/2015 None Full Exam - General 1994 Integument inspection of skin Location: face 12/21/2015 chin Full Exam - General 1994 Integument inspection of skin Dermatitis: pustule 12/21/2015 None Full Exam - General 1994 Integument inspection of skin Pigmentation: erythematous 12/21/2015 None Full Exam - General 1994 Psychiatric mood and affect Overall: normal mood and affect 12/21/2015 None Full Exam - General 1994 Constitutional general appearance Overall: well developed 10/12/2015 None Full Exam - General 1994 Constitutional general appearance Overall: in no acute distress 10/12/2015 None Full Exam - General 1994 Constitutional general appearance Overall: well nourished 10/12/2015 None Full Exam - General 1994 Respiratory auscultation Overall: breath sounds clear bilaterally 10/12/2015 None Full Exam - General 1994 Respiratory respiratory effort/rhythm Overall: no retractions 10/12/2015 None Full Exam - General 1994 Respiratory respiratory effort/rhythm Overall: normal rate 10/12/2015 None Full Exam - General 1994 Cardiovascular extremities Overall: no clubbing 10/12/2015 None Full Exam - General 1994 Cardiovascular auscultation of heart Overall: regular rate 10/12/2015 None Full Exam - General 1994 Cardiovascular auscultation of heart Overall: normal heart sounds 10/12/2015 None Full Exam - General 1994 Cardiovascular auscultation of heart Overall: no murmurs 10/12/2015 None Full Exam - General 1994 Abdomen abdominal exam Overall: no tenderness 10/12/2015 None Full Exam - General 1994 Abdomen abdominal exam Overall: normal bowel sounds 10/12/2015 None Full Exam - General 1994 Neurologic cranial nerves Overall: crainial nerves 2 - 12 grossly intact 10/12/2015 None Full Exam - General 1994 Psychiatric orientation/consciousness Overall: oriented to person, place and time 10/12/2015 None Full Exam - General 1994 Integument inspection of skin Location: inguinal area 10/12/2015 pin point area left groin -mild erythema, no drainage or induration Full Exam - General 1994 Constitutional general appearance Overall: well developed 08/24/2015 None Full Exam - General 1994 Constitutional general appearance Overall: in no acute distress 08/24/2015 None Full Exam - General 1994 Constitutional general appearance Overall: well nourished 08/24/2015 None Full Exam - General 1994 Eyes conjunctiva/eyelids Overall: conjunctiva clear 08/24/2015 None Full Exam - General 1994 Eyes pupils and irises Overall: pupils equal, round, reactive to light and accomodation 08/24/2015 None Full Exam - General 1994 Ears/Nose/Throat otoscopic exam Overall: external auditory canals clear 08/24/2015 None Full Exam - General 1994 Ears/Nose/Throat otoscopic exam Overall: tympanic membranes clear 08/24/2015 None Full Exam - General 1994 Ears/Nose/Throat oral cavity/pharynx/larynx Overall: oral mucosa clear 08/24/2015 None Full Exam - General 1994 Respiratory auscultation Overall: breath sounds clear bilaterally 08/24/2015 None Full Exam - General 1994 Respiratory respiratory effort/rhythm Overall: no retractions 08/24/2015 None Full Exam - General 1994 Respiratory respiratory effort/rhythm Overall: normal rate 08/24/2015 None Full Exam - General 1994 Cardiovascular extremities Overall: no clubbing 08/24/2015 None Full Exam - General 1994 Cardiovascular auscultation of heart Overall: regular rate 08/24/2015 None Full Exam - General 1994 Cardiovascular auscultation of heart Overall: normal heart sounds 08/24/2015 None Full Exam - General 1994 Cardiovascular auscultation of heart Overall: no murmurs 08/24/2015 None Full Exam - General 1994 Abdomen abdominal exam Overall: no tenderness 08/24/2015 None Full Exam - General 1994 Abdomen abdominal exam Overall: normal bowel sounds 08/24/2015 None Full Exam - General 1994 Musculoskeletal head and neck Overall: head atraumatic 08/24/2015 None Full Exam - General 1994 Neurologic cranial nerves Overall: crainial nerves 2 - 12 grossly intact 08/24/2015 None Full Exam - General 1994 Psychiatric orientation/consciousness Overall: oriented to person, place and time 08/24/2015 None Full Exam - General 1994 Constitutional general appearance Overall: well nourished 06/01/2015 None Full Exam - General 1994 Constitutional general appearance Overall: well developed 06/01/2015 None Full Exam - General 1994 Constitutional general appearance Overall: in no acute distress 06/01/2015 None Full Exam - General 1994 Eyes pupils and irises Overall: pupils equal, round, reactive to light and accomodation 06/01/2015 None Full Exam - General 1994 Ears/Nose/Throat otoscopic exam Overall: tympanic membranes clear 06/01/2015 None Full Exam - General 1994 Ears/Nose/Throat otoscopic exam Overall: external auditory canals clear 06/01/2015 None Full Exam - General 1994 Ears/Nose/Throat oral cavity/pharynx/larynx Overall: oropharyngeal mucosa clear 06/01/2015 None Full Exam - General 1994 Ears/Nose/Throat oral cavity/pharynx/larynx Overall: no masses 06/01/2015 None Full Exam - General 1994 Ears/Nose/Throat oral cavity/pharynx/larynx Overall: oral mucosa clear 06/01/2015 None Full Exam - General 1994 Respiratory auscultation Overall: breath sounds clear bilaterally 06/01/2015 None Full Exam - General 1994 Respiratory respiratory effort/rhythm Overall: normal rate 06/01/2015 None Full Exam - General 1994 Respiratory respiratory effort/rhythm Overall: no retractions 06/01/2015 None Full Exam - General 1994 Cardiovascular auscultation of heart Overall: regular rate 06/01/2015 None Full Exam - General 1994 Cardiovascular auscultation of heart Overall: normal heart sounds 06/01/2015 None Full Exam - General 1994 Cardiovascular auscultation of heart Overall: no murmurs 06/01/2015 None Full Exam - General 1994 Cardiovascular extremities Overall: no clubbing 06/01/2015 None Full Exam - General 1994 Lymphatic neck nodes Overall: anterior cervical chain benign 06/01/2015 None Full Exam - General 1994 Lymphatic neck nodes Overall: posterior cervical chain benign 06/01/2015 None Full Exam - General 1994 Integument inspection of skin Dermatitis: pustule 06/01/2015 on chin on right right be low lip and on left below lip Full Exam - General 1994 Psychiatric orientation/consciousness Overall: oriented to person, place and time 06/01/2015 None Full Exam - General 1994 Psychiatric mood and affect Mood: happy 06/01/2015 None Full Exam - General 1994 Psychiatric mood and affect Overall: normal mood and affect 06/01/2015 None Full Exam - General 1994 Constitutional general appearance Overall: well developed 05/21/2015 None Full Exam - General 1994 Constitutional general appearance Overall: in no acute distress 05/21/2015 None Full Exam - General 1994 Constitutional general appearance Overall: well nourished 05/21/2015 None Full Exam - General 1994 Eyes conjunctiva/eyelids Overall: conjunctiva clear 05/21/2015 None Full Exam - General 1994 Eyes pupils and irises Overall: pupils equal, round, reactive to light and accomodation 05/21/2015 None Full Exam - General 1994 Ears/Nose/Throat otoscopic exam Overall: external auditory canals clear 05/21/2015 None Full Exam - General 1994 Ears/Nose/Throat otoscopic exam Overall: tympanic membranes clear 05/21/2015 None Full Exam - General 1994 Ears/Nose/Throat oral cavity/pharynx/larynx Overall: oral mucosa clear 05/21/2015 None Full Exam - General 1994 Respiratory auscultation Overall: breath sounds clear bilaterally 05/21/2015 None Full Exam - General 1994 Respiratory respiratory effort/rhythm Overall: no retractions 05/21/2015 None Full Exam - General 1994 Respiratory respiratory effort/rhythm Overall: normal rate 05/21/2015 None Full Exam - General 1994 Cardiovascular extremities Overall: no clubbing 05/21/2015 None Full Exam - General 1994 Cardiovascular auscultation of heart Overall: regular rate 05/21/2015 None Full Exam - General 1994 Cardiovascular auscultation of heart Overall: normal heart sounds 05/21/2015 None Full Exam - General 1994 Cardiovascular auscultation of heart Overall: no murmurs 05/21/2015 None Full Exam - General 1994 Abdomen abdominal exam Overall: no tenderness 05/21/2015 None Full Exam - General 1994 Abdomen abdominal exam Overall: normal bowel sounds 05/21/2015 None Full Exam - General 1994 Musculoskeletal head and neck Overall: head atraumatic 05/21/2015 None Full Exam - General 1994 Neurologic cranial nerves Overall: crainial nerves 2 - 12 grossly intact 05/21/2015 None Full Exam - General 1994 Psychiatric orientation/consciousness Overall: oriented to person, place and time 05/21/2015 None Full Exam - General 1994 Constitutional general appearance Overall: well developed 03/26/2015 None Full Exam - General 1994 Constitutional general appearance Overall: in no acute distress 03/26/2015 None Full Exam - General 1994 Constitutional general appearance Overall: well nourished 03/26/2015 None Full Exam - General 1994 Eyes conjunctiva/eyelids Overall: conjunctiva clear 03/26/2015 None Full Exam - General 1994 Eyes pupils and irises Overall: pupils equal, round, reactive to light and accomodation 03/26/2015 None Full Exam - General 1994 Ears/Nose/Throat otoscopic exam Overall: external auditory canals clear 03/26/2015 None Full Exam - General 1994 Ears/Nose/Throat otoscopic exam Overall: tympanic membranes clear 03/26/2015 None Full Exam - General 1994 Ears/Nose/Throat oral cavity/pharynx/larynx Overall: oral mucosa clear 03/26/2015 None Full Exam - General 1994 Respiratory auscultation Overall: breath sounds clear bilaterally 03/26/2015 None Full Exam - General 1994 Respiratory respiratory effort/rhythm Overall: no retractions 03/26/2015 None Full Exam - General 1994 Respiratory respiratory effort/rhythm Overall: normal rate 03/26/2015 None Full Exam - General 1994 Cardiovascular extremities Overall: no clubbing 03/26/2015 None Full Exam - General 1994 Cardiovascular auscultation of heart Overall: regular rate 03/26/2015 None Full Exam - General 1994 Cardiovascular auscultation of heart Overall: normal heart sounds 03/26/2015 None Full Exam - General 1994 Cardiovascular auscultation of heart Overall: no murmurs 03/26/2015 None Full Exam - General 1994 Abdomen abdominal exam Overall: no tenderness 03/26/2015 None Full Exam - General 1994 Abdomen abdominal exam Overall: normal bowel sounds 03/26/2015 None Full Exam - General 1994 Musculoskeletal head and neck Overall: head atraumatic 03/26/2015 None Full Exam - General 1994 Neurologic cranial nerves Overall: crainial nerves 2 - 12 grossly intact 03/26/2015 None Full Exam - General 1994 Psychiatric orientation/consciousness Overall: oriented to person, place and time 03/26/2015 None Full Exam - General 1994 Musculoskeletal digits and nails Overall: no clubbing 03/26/2015 splitting of nails Full Exam - General 1994 Constitutional general appearance Overall: well developed 03/11/2015 None Full Exam - General 1994 Constitutional general appearance Overall: in no acute distress 03/11/2015 None Full Exam - General 1994 Constitutional general appearance Overall: well nourished 03/11/2015 None Full Exam - General 1994 Eyes conjunctiva/eyelids Overall: conjunctiva clear 03/11/2015 None Full Exam - General 1994 Eyes pupils and irises Overall: pupils equal, round, reactive to light and accomodation 03/11/2015 None Full Exam - General 1994 Ears/Nose/Throat otoscopic exam Overall: external auditory canals clear 03/11/2015 None Full Exam - General 1994 Ears/Nose/Throat otoscopic exam Overall: tympanic membranes clear 03/11/2015 None Full Exam - General 1994 Ears/Nose/Throat oral cavity/pharynx/larynx Overall: oral mucosa clear 03/11/2015 None Full Exam - General 1994 Respiratory auscultation Overall: breath sounds clear bilaterally 03/11/2015 None Full Exam - General 1994 Respiratory respiratory effort/rhythm Overall: no retractions 03/11/2015 None Full Exam - General 1994 Respiratory respiratory effort/rhythm Overall: normal rate 03/11/2015 None Full Exam - General 1994 Cardiovascular extremities Overall: no clubbing 03/11/2015 None Full Exam - General 1994 Cardiovascular auscultation of heart Overall: regular rate 03/11/2015 None Full Exam - General 1994 Cardiovascular auscultation of heart Overall: normal heart sounds 03/11/2015 None Full Exam - General 1994 Cardiovascular auscultation of heart Overall: no murmurs 03/11/2015 None Full Exam - General 1994 Abdomen abdominal exam Overall: no tenderness 03/11/2015 None Full Exam - General 1994 Abdomen abdominal exam Overall: normal bowel sounds 03/11/2015 None Full Exam - General 1994 Musculoskeletal head and neck Overall: head atraumatic 03/11/2015 None Full Exam - General 1994 Integument inspection of skin Location: back 03/11/[address] - l ower back from sacrum to lumbar spine - Full Exam - General 1994 Neurologic cranial nerves Overall: crainial nerves 2 - 12 grossly intact 03/11/2015 None Full Exam - General 1994 Psychiatric orientation/consciousness Overall: oriented to person, place and time 03/11/2015 None Full Exam - General 1994 Constitutional general appearance Overall: well developed 12/11/2014 None Full Exam - General 1994 Constitutional general appearance Overall: in no acute distress 12/11/2014 None Full Exam - General 1994 Constitutional general appearance Overall: well nourished 12/11/2014 None Full Exam - General 1994 Eyes conjunctiva/eyelids Overall: conjunctiva clear 12/11/2014 None Full Exam - General 1994 Eyes pupils and irises Overall: pupils equal, round, reactive to light and accomodation 12/11/2014 None Full Exam - General 1994 Ears/Nose/Throat otoscopic exam Overall: external auditory canals clear 12/11/2014 None Full Exam - General 1994 Ears/Nose/Throat otoscopic exam Overall: tympanic membranes clear 12/11/2014 None Full Exam - General 1994 Ears/Nose/Throat oral cavity/pharynx/larynx Overall: oral mucosa clear 12/11/2014 None Full Exam - General 1994 Respiratory auscultation Overall: breath sounds clear bilaterally 12/11/2014 None Full Exam - General 1994 Respiratory respiratory effort/rhythm Overall: no retractions 12/11/2014 None Full Exam - General 1994 Respiratory respiratory effort/rhythm Overall: normal rate 12/11/2014 None Full Exam - General 1994 Cardiovascular extremities Overall: no clubbing 12/11/2014 None Full Exam - General 1994 Cardiovascular auscultation of heart Overall: regular rate 12/11/2014 None Full Exam - General 1994 Cardiovascular auscultation of heart Overall: normal heart sounds 12/11/2014 None Full Exam - General 1994 Cardiovascular auscultation of heart Overall: no murmurs 12/11/2014 None Full Exam - General 1994 Abdomen abdominal exam Overall: no tenderness 12/11/2014 None Full Exam - General 1994 Abdomen abdominal exam Overall: normal bowel sounds 12/11/2014 None Full Exam - General 1994 Musculoskeletal head and neck Overall: head atraumatic 12/11/2014 None Full Exam - General 1994 Neurologic cranial nerves Overall: crainial nerves 2 - 12 grossly intact 12/11/2014 None Full Exam - General 1994 Psychiatric orientation/consciousness Overall: oriented to person, place and time 12/11/2014 None Full Exam - General 1994 Integument inspection of skin Location: back 12/11/2014 steri-strips in place - l ower back from sacrum to lumbar spine - Full Exam - General 1994 Constitutional general appearance Overall: well developed 09/18/2014 None Full Exam - General 1994 Constitutional general appearance Overall: in no acute distress 09/18/2014 None Full Exam - General 1994 Constitutional general appearance Overall: well nourished 09/18/2014 None Full Exam - General 1994 Eyes conjunctiva/eyelids Overall: conjunctiva clear 09/18/2014 None Full Exam - General 1994 Eyes pupils and irises Overall: pupils equal, round, reactive to light and accomodation 09/18/2014 None Full Exam - General 1994 Ears/Nose/Throat otoscopic exam Overall: external auditory canals clear 09/18/2014 None Full Exam - General 1994 Ears/Nose/Throat otoscopic exam Overall: tympanic membranes clear 09/18/2014 None Full Exam - General 1994 Ears/Nose/Throat oral cavity/pharynx/larynx Overall: oral mucosa clear 09/18/2014 None Full Exam - General 1994 Respiratory auscultation Overall: breath sounds clear bilaterally 09/18/2014 None Full Exam - General 1994 Respiratory respiratory effort/rhythm Overall: no retractions 09/18/2014 None Full Exam - General 1994 Respiratory respiratory effort/rhythm Overall: normal rate 09/18/2014 None Full Exam - General 1994 Cardiovascular extremities Overall: no clubbing 09/18/2014 None Full Exam - General 1994 Cardiovascular auscultation of heart Overall: regular rate 09/18/2014 None Full Exam - General 1994 Cardiovascular auscultation of heart Overall: normal heart sounds 09/18/2014 None Full Exam - General 1994 Cardiovascular auscultation of heart Overall: no murmurs 09/18/2014 None Full Exam - General 1994 Abdomen abdominal exam Overall: no tenderness 09/18/2014 None Full Exam - General 1994 Abdomen abdominal exam Overall: normal bowel sounds 09/18/2014 None Full Exam - General 1994 Musculoskeletal head and neck Overall: head atraumatic 09/18/2014 None Full Exam - General 1994 Neurologic cranial nerves Overall: crainial nerves 2 - 12 grossly intact 09/18/2014 None Full Exam - General 1994 Psychiatric orientation/consciousness Overall: oriented to person, place and time 09/18/2014 None Full Exam - General 1994 Integument inspection of skin Dermatitis: erythema 09/18/2014 with scar and nodularity/ induration at left buttock cheek near anus Full Exam - General 1994 Constitutional general appearance Overall: well developed 07/31/2014 None Full Exam - General 1994 Constitutional general appearance Overall: in no acute distress 07/31/2014 None Full Exam - General 1994 Constitutional general appearance Overall: well nourished 07/31/2014 None Full Exam - General 1994 Eyes conjunctiva/eyelids Overall: conjunctiva clear 07/31/2014 None Full Exam - General 1994 Eyes pupils and irises Overall: pupils equal, round, reactive to light and accomodation 07/31/2014 None Full Exam - General 1994 Ears/Nose/Throat otoscopic exam Overall: external auditory canals clear 07/31/2014 None Full Exam - General 1994 Ears/Nose/Throat otoscopic exam Overall: tympanic membranes clear 07/31/2014 None Full Exam - General 1994 Ears/Nose/Throat oral cavity/pharynx/larynx Overall: oral mucosa clear 07/31/2014 None Full Exam - General 1994 Psychiatric orientation/consciousness Overall: oriented to person, place and time 07/31/2014 None Full Exam - General 1994 Neurologic cranial nerves Overall: crainial nerves 2 - 12 grossly intact 07/31/2014 None Full Exam - General 1994 Integument inspection of skin Overall: few scattered moles, no gross abnormalities 07/31/2014 None Full Exam - General 1994 Musculoskeletal head and neck Overall: head atraumatic 07/31/2014 None Full Exam - General 1994 Lymphatic neck nodes Overall: anterior cervical chain benign 07/31/2014 None Full Exam - General 1994 Lymphatic neck nodes Overall: posterior cervical chain benign 07/31/2014 None Full Exam - General 1994 Abdomen abdominal exam Overall: no tenderness 07/31/2014 None Full Exam - General 1994 Abdomen abdominal exam Overall: normal bowel sounds 07/31/2014 None Full Exam - General 1994 Cardiovascular extremities Overall: no clubbing 07/31/2014 None Full Exam - General 1994 Cardiovascular auscultation of heart Overall: regular rate 07/31/2014 None Full Exam - General 1994 Cardiovascular auscultation of heart Overall: normal heart sounds 07/31/2014 None Full Exam - General 1994 Cardiovascular auscultation of heart Overall: no murmurs 07/31/2014 None Full Exam - General 1994 Respiratory auscultation Overall: breath sounds clear bilaterally 07/31/2014 None Full Exam - General 1994 Respiratory respiratory effort/rhythm Overall: normal rate 07/31/2014 None Full Exam - General 1994 Respiratory respiratory effort/rhythm Overall: no retractions 07/31/2014 None Procedures Procedure Codes Date DESTRUCT PREMALG LESION CPT-4: 78782 01/19/2018 URINALYSIS NONAUTO W /O SCOPE CPT-4: 54710 09/12/2017 TRIAMCINOLONE ACET I [place] NOS CPT-4: J3301 06/14/2017 THER/PROPH/DIAG INJ SC/IM CPT-4: 48165 06/14/2017 PRESCRIP TRANSMIT A ERX SY CPT-4: G8553 06/14/2017 TRIAMCINOLONE ACET I [place] NOS CPT-4: J3301 03/27/2017 THER/PROPH/DIAG INJ SC/IM CPT-4: 78404 12/07/2016 TRIAMCINOLONE ACET I [place] NOS CPT-4: J3301 12/07/2016 THER/PROPH/DIAG INJ SC/IM CPT-4: 72044 11/28/2016 TRIAMCINOLONE ACET I [place] NOS CPT-4: J3301 11/28/2016 Vital Signs Date Vital 05/23/2019 Blood Pressure 1: 130/82 Code: 8480-6 BMI: 35.5 Code: 34894-2 Heart Rate 1: 69 bpm Height: 5'6" SpO2: 98% Weight: 220 lbs 05/07/2019 Blood Pressure 1: 138/68 Code: 8480-6 BMI: 36.0 Code: 30531-6 Heart Rate 1: 86 bpm Height: 5'6" SpO2: 98% Weight: 223 lbs 04/29/2019 Blood Pressure 1: 144/60 Code: 8480-6 BMI: 36.0 Code: 61262-2 Heart Rate 1: 73 bpm Height: 5'6" SpO2: 98% Weight: 223 lbs 03/21/2019 Blood Pressure 1: 132/64 Code: 8480-6 BMI: 36.2 Code: 27594-1 Heart Rate 1: 76 bpm Height: 5'6" SpO2: 94% Weight: 224 lbs 01/22/2019 Blood Pressure 1: 132/66 Code: 8480-6 BMI: 37.1 Code: 60614-0 Heart Rate 1: 73 bpm Height: 5'6" SpO2: 96% Weight: 230 lbs 11/21/2018 Blood Pressure 1: 120/64 Code: 8480-6 Heart Rate 1: 64 bpm 10/30/2018 Blood Pressure 1: 144/70 Code: 8480-6 BMI: 37.0 Code: 47960-5 Heart Rate 1: 76 bpm Height: 5'6" SpO2: 96% Weight: 229 lbs 06/28/2018 Blood Pressure 1: 110/66 Code: 8480-6 BMI: 37.1 Code: 88588-4 Heart Rate 1: 73 bpm Height: 5'6" SpO2: 98% Weight: 230 lbs 04/04/2018 Blood Pressure 1: 128/76 Code: 8480-6 BMI: 37.9 Code: 65640-2 Heart Rate 1: 86 bpm Height: 5'6" SpO2: 98% Weight: 235 lbs 01/19/2018 Blood Pressure 1: 122/68 Code: 8480-6 Heart Rate 1: 78 bpm Height: 5'6" SpO2: 97% Weight: 01/05/2018 Blood Pressure 1: 138/78 Code: 8480-6 BMI: 38.4 Code: 80062-8 Heart Rate 1: 73 bpm Height: 5'6" SpO2: 95% Weight: 238 lbs 11/29/2017 Blood Pressure 1: 138/80 Code: 8480-6 BMI: 38.7 Code: 12135-1 Heart Rate 1: 71 bpm Height: 5'6" SpO2: 97% Weight: 240 lbs 10/25/2017 Blood Pressure 1: 136/72 Code: 8480-6 BMI: 38.7 Code: 73334-7 Heart Rate 1: 92 bpm Height: 5'6" SpO2: 98% Weight: 240 lbs 09/12/2017 Blood Pressure 1: 132/68 Code: 8480-6 BMI: 39.7 Code: 96679-0 Heart Rate 1: 76 bpm Height: 5'6" SpO2: 98% Weight: 246 lbs 06/14/2017 Blood Pressure 1: 130/80 Code: 8480-6 BMI: 39.4 Code: 24106-0 Heart Rate 1: 73 bpm Height: 5'6" SpO2: 95% Temperature: 36.9 (C ) / 98.5 (F) Weight: 244 lbs 05/10/2017 Blood Pressure 1: 128/68 Code: 8480-6 BMI: 38.7 Code: 50802-3 Heart Rate 1: 69 bpm Height: 5'6" SpO2: 97% Weight: 240 lbs 04/19/2017 Blood Pressure 1: 138/74 Code: 8480-6 BMI: 38.7 Code: 54317-2 Heart Rate 1: 73 bpm Height: 5'6" SpO2: 96% Weight: 240 lbs 03/27/2017 Blood Pressure 1: 142/84 Code: 8480-6 BMI: 38.7 Code: 28174-3 Heart Rate 1: 69 bpm Height: 5'6" SpO2: 97% Weight: 240 lbs 01/26/2017 Blood Pressure 1: 136/68 Code: 8480-6 Heart Rate 1: 64 bpm Height: 5'6" SpO2: 96% Weight: 12/07/2016 Blood Pressure 1: 130/72 Code: 8480-6 BMI: 39.7 Code: 97030-4 Heart Rate 1: 73 bpm Height: 5'6" SpO2: 93% Temperature: 36.8 (C ) / 98.3 (F) Weight: 246 lbs 11/28/2016 Blood Pressure 1: 138/60 Code: 8480-6 BMI: 39.7 Code: 71896-4 Heart Rate 1: 81 bpm Height: 5'6" SpO2: 97% Weight: 246 lbs 11/15/2016 Blood Pressure 1: 134/78 Code: 8480-6 BMI: 39.7 Code: 98207-4 Heart Rate 1: 75 bpm Height: 5'6" SpO2: 93% Temperature: 36.8 (C ) / 98.2 (F) Weight: 246 lbs 10/17/2016 Blood Pressure 1: 120/64 Code: 8480-6 BMI: 38.4 Code: 35772-2 Heart Rate 1: 69 bpm Height: 5'6" SpO2: 98% Temperature: 37.2 (C ) / 98.9 (F) Weight: 238 lbs 09/28/2016 Blood Pressure 1: 158/76 Code: 8480-6 BMI: 39.4 Code: 48588-4 Heart Rate 1: 71 bpm Height: 5'6" SpO2: 97% Weight: 244 lbs 06/29/2016 Blood Pressure 1: 124/60 Code: 8480-6 BMI: 38.7 Code: 78033-4 Heart Rate 1: 71 bpm Height: 5'6" SpO2: 98% Weight: 240 lbs 06/01/2016 Blood Pressure 1: 120/62 Code: 8480-6 BMI: 38.6 Code: 85075-9 Heart Rate 1: 76 bpm Height: 5'6" SpO2: 98% Weight: 239 lbs 05/11/2016 Blood Pressure 1: 140/80 Code: 8480-6 BMI: 38.1 Code: 20540-5 Heart Rate 1: 88 bpm Height: 5'6" SpO2: 97% Weight: 236 lbs 04/05/2016 Blood Pressure 1: 142/80 Code: 8480-6 BMI: 38.4 Code: 40954-5 Heart Rate 1: 96 bpm Height: 5'6" SpO2: 98% Weight: 238 lbs 04/01/2016 Blood Pressure 1: 136/88 Code: 8480-6 BMI: 39.2 Code: 00782-3 Heart Rate 1: 86 bpm Height: 5'6" SpO2: 96% Weight: 243 lbs 01/26/2016 Blood Pressure 1: 124/76 Code: 8480-6 BMI: 39.2 Code: 32162-0 Heart Rate 1: 76 bpm Height: 5'6" SpO2: 97% Weight: 243 lbs 12/21/2015 Blood Pressure 1: 120/64 Code: 8480-6 BMI: 37.0 Code: 48094-2 Heart Rate 1: 98 bpm Height: 5'6" SpO2: 97% Weight: 229 lbs 10/12/2015 Blood Pressure 1: 150/64 Code: 8480-6 BMI: 37.4 Code: 71207-9 Heart Rate 1: 70 bpm Height: 5'6" SpO2: 94% Weight: 232 lbs 08/24/2015 Blood Pressure 1: 128/74 Code: 8480-6 BMI: 36.8 Code: 58778-5 Heart Rate 1: 88 bpm Height: 5'6" SpO2: 94% Temperature: 36.8 (C ) / 98.3 (F) Weight: 228 lbs 06/01/2015 Blood Pressure 1: 134/68 Code: 8480-6 BMI: 36.0 Code: 03959-3 Heart Rate 1: 70 bpm Height: 5'6" SpO2: 98% Weight: 223 lbs 05/21/2015 Blood Pressure 1: 126/72 Code: 8480-6 BMI: 35.2 Code: 69236-3 Heart Rate 1: 63 bpm Height: 5'6" SpO2: 95% Weight: 218 lbs 5 oz 03/26/2015 Blood Pressure 1: 140/62 Code: 8480-6 BMI: 35.3 Code: 71405-8 Heart Rate 1: 68 bpm Height: 5'6" Weight: 219 lbs 03/11/2015 Blood Pressure 1: 130/80 Code: 8480-6 BMI: 34.9 Code: 04191-7 Heart Rate 1: 76 bpm Height: 5'6" Temperature: 37.1 (C ) / 98.7 (F) Weight: 216 lbs 12/11/2014 Blood Pressure 1: 134/62 Code: 8480-6 BMI: 34.2 Code: 89533-9 Heart Rate 1: 72 bpm Height: 5'6" Weight: 212 lbs 09/18/2014 Blood Pressure 1: 148/80 Code: 8480-6 BMI: 34.7 Code: 56833-7 Heart Rate 1: 68 bpm Height: 5'6" Weight: 215 lbs 07/31/2014 Blood Pressure 1: 124/72 Code: 8480-6 BMI: 36.2 Code: 33769-0 Heart Rate 1: 68 bpm Height: 5'6" Weight: 224 lbs Functional Status No Functional Status data History of Present Illness Symptom Name Status Resu lt Effective Date Notes Location at the level of the thyroid 05/23/2019 None Quality chronic 05/23/2019 None Onset and Resolution o ngoing 05/23/2019 None Severity mild with sub clinical signs 05/23/2019 None Frequency of Episodes unchanged 05/23/2019 None Triggers no known asso ciated factors 05/23/2019 None Exacerbating Factors m edication 05/23/2019 None Onset and Resolution s udden in onset 05/23/2019 None Onset of Symptom 1 mon ths ago 05/23/2019 None Quality intermittent 05/23/2019 None Quality loose 05/23/2019 None Location on the left 05/23/2019 pinky toe Location diffusely 05/07/2019 None Quality acute 05/07/2019 None Onset and Resolution s udden in onset 05/07/2019 None Onset of Symptom 1 wee ks ago 05/07/2019 None Limitation on Activities does not limit oral intake 05/07/2019 None Pertinent Findings Den ies fever 05/07/2019 None Pertinent Findings ora l ulcers 05/07/2019 None Location-Major on the back 04/29/2019 None Quality acute 04/29/2019 None Color erythematous 04/29/2019 None Onset and Resolution s udden in onset 04/29/2019 None Pertinent Findings Den ies pain 04/29/2019 None Pertinent Findings itc tony 04/29/2019 None Location-Major on the back 03/21/2019 None Color black 03/21/2019 None Changing Moles changing 03/21/2019 None Quality enlarging 03/21/2019 None Quality raised 03/21/2019 None Location on the forehead 03/21/2019 None Onset and Resolution D enies gradual in onset 03/21/2019 None Location at the level of the thyroid 03/21/2019 None Quality chronic 03/21/2019 None Onset and Resolution o ngoing 03/21/2019 None Severity mild with sub clinical signs 03/21/2019 None Frequency of Episodes unchanged 03/21/2019 None Triggers no known asso ciated factors 03/21/2019 None Exacerbating Factors m edication 03/21/2019 None Quality chronic 01/22/2019 None Quality primary hypert ension 01/22/2019 None Onset and Resolution o ngoing 01/22/2019 None Onset of Symptom durin g adulthood 01/22/2019 None Severity not consisten tly severe symptoms, the symptoms fluctuate from no symptoms to anxiety and headaches 01/22/2019 None Frequency of Episodes unchanged 01/22/2019 None Triggers no known asso ciated factors 01/22/2019 None Pertinent Findings Den ies dizziness 01/22/2019 None Pertinent Findings dys pnea 01/22/2019 -she uses an inhaler once or twice daily after exertion Pertinent Findings Den ies edema 01/22/2019 None Quality chronic 01/22/2019 None Onset and Resolution D enies ongoing 01/22/2019 None Alleviating Factors me dication 01/22/2019 None Blood Pressure Values patient checking blood pressure at home - did not bring in readings 01/22/2019 -Checks occasionally Quality Denies chronic 01/22/2019 None Onset and Resolution o ngoing 01/22/2019 None Onset of Symptom year s ago 01/22/2019 None Limitation on Activities Denies allows weight bearing activity 01/22/2019 None Location lumbar spine 01/22/2019 None Alleviating Factors me dications 01/22/2019 ([email or web address]) Exacerbating Factors a ctivity 01/22/2019 None Quality chronic 10/30/2018 None Onset and Resolution o ngoing 10/30/2018 None Pertinent Findings dys pnea 10/30/2018 -she uses an inhaler Pertinent Findings edema 10/30/2018 a little- "not bad" Quality primary hypert ension 10/30/2018 None Quality chronic 10/30/2018 None Onset and Resolution D enies ongoing 10/30/2018 None Alleviating Factors me dication 10/30/2018 None Onset and Resolution g radual in onset 10/30/2018 None Onset of Symptom durin g adulthood 10/30/2018 None Exacerbating Factors d iet 10/30/2018 None Quality increased chol esterol 10/30/2018 None Quality increased LDL 10/30/2018 None Onset of Symptom durin g adulthood 10/30/2018 None Blood Pressure Values not checking blood pressure at home 10/30/2018 None Pertinent Findings diz ziness 10/30/2018 None Severity not consisten tly severe symptoms, the symptoms fluctuate from no symptoms to anxiety and headaches 10/30/2018 None Frequency of Episodes unchanged 10/30/2018 None Triggers no known asso ciated factors 10/30/2018 None eye erythema Location in both conjunctiva 06/28/2018 None eye erythema Quality acu te 06/28/2018 None eye erythema Onset and Resolution sudden in onset 06/28/2018 None eye erythema Onset and Resolution ongoing 06/28/2018 None eye erythema Onset of Symptom 2 weeks ago 06/28/2018 None eye erythema Triggers no known associated factors 06/28/2018 None eye erythema Pertinent Findings eye tearing 06/28/2018 None eye erythema Pertinent Findings Denies fever 06/28/2018 None eye erythema Pertinent Findings use of eye drops 06/28/2018 None eye erythema Pertinent Findings URI symptoms 06/28/2018 None nasal allergies Location in both nares 06/28/2018 None nasal allergies Significant Medical Conditions allergic rhinitis 06/28/2018 None nasal allergies Triggers season change 06/28/2018 None nasal allergies Significant Medical Conditions asthma 06/28/2018 None nasal allergies Pertinent Findings Denies cough 06/28/2018 None nasal allergies Pertinent Findings Denies fever 06/28/2018 None hypertension Quality chr onic 04/04/2018 None hypertension Onset and Resolution ongoing 04/04/2018 None hypertension Pertinent Findings Denies dyspnea 04/04/2018 None hypertension Pertinent Findings edema 04/04/2018 None edema Onset and Resolution gradual in onset 04/04/2018 None edema Onset of Symptom _ months ago 04/04/2018 None edema Limitation on Activities does not limit activities 04/04/2018 None edema Pertinent Findings Denies nausea 04/04/2018 None oral lesion Location on the lower lip 01/05/2018 None oral lesion Location on the upper lip 01/05/2018 None oral lesion Onset and Resolution sudden in onset 01/05/2018 None oral lesion Quality acute 01/05/2018 None oral lesion Quality flat 01/05/2018 None oral lesion Quality fixed 01/05/2018 None oral lesion Quality firm 01/05/2018 None oral lesion Quality non- tender 01/05/2018 None oral lesion Quality red 01/05/2018 None oral lesion Onset of Symptom during adulthood 01/05/2018 None oral lesion Onset of Symptom 1 months ago 01/05/2018 None oral lesion Limitation on Activities does not limit oral intake 01/05/2018 None oral lesion Triggers no known associated factors 01/05/2018 None oral lesion Pertinent Findings Denies decreased energy level 01/05/2018 None oral lesion Pertinent Findings Denies facial pain 01/05/2018 None oral lesion Pertinent Findings Denies hoarseness 01/05/2018 None oral lesion Pertinent Findings Denies ill contacts 01/05/2018 None oral lesion Pertinent Findings Denies pain with oral intake 01/05/2018 None back pain Location in th e midline of in the lower back area 11/29/2017 None back pain Quality aching 11/29/2017 None back pain Onset and Resolution ongoing 11/29/2017 None hip pain Location on the left 10/25/2017 None hip pain Location in the buttocks 10/25/2017 None hip pain Quality dull ac he 10/25/2017 None hip pain Onset and Resolution sudden in onset 10/25/2017 None hip pain Mechanism of injury ground level fall 10/25/2017 None hip pain Pertinent Findings Denies redness 10/25/2017 None hip pain Pertinent Findings Denies warmth 10/25/2017 None edema Onset and Resolution sudden in onset 09/12/2017 None edema Onset of Symptom 1 weeks ago 09/12/2017 None edema Location on both a nkles 09/12/2017 None edema Location on both l egs 09/12/2017 None edema Pertinent Findings dyspnea on exertion 09/12/2017 None edema Quality acute 09/12/2017 None edema Quality pitting 09/12/2017 None edema Triggers prolonged sitting 09/12/2017 None abnormal bleeding and bruising Location on the abdomen 09/12/2017 None abnormal bleeding and bruising Location on the left arm 09/12/2017 None abnormal bleeding and bruising Triggers no known associated factors 09/12/2017 None abnormal bleeding and bruising Quality acute 09/12/2017 None shortness of breath Quality breathlessness 06/14/2017 None shortness of breath Onset and Resolution sudden in onset 06/14/2017 None shortness of breath Onset of Symptom 3 days ago 06/14/2017 None shortness of breath Frequency of Episodes daily 06/14/2017 None shortness of breath Timing of Episodes at night 06/14/2017 None shortness of breath Timing of Episodes upon awakening 06/14/2017 None shortness of breath Exacerbating Factors exertion 06/14/2017 None edema Onset and Resolution gradual in onset 05/10/2017 None edema Onset of Symptom 3 days ago 05/10/2017 None edema Location on both l egs 05/10/2017 Right worse than left edema Location on both a nkles 05/10/2017 Right worse than left edema Quality constant 05/10/2017 None edema Quality pitting 05/10/2017 None wheezing Quality constant 04/19/2017 None wheezing Onset and Resolution ongoing 04/19/2017 None wheezing Location diffus lidya 04/19/2017 None chest congestion Quality constant 04/19/2017 None chest congestion Onset and Resolution ongoing 04/19/2017 None ecchymosis Location diff usely 03/27/2017 None ecchymosis Quality acute 03/27/2017 None ecchymosis Pertinent Findings discoloration 03/27/2017 None ecchymosis Pertinent Findings Denies easy bleeding 03/27/2017 None ecchymosis Pertinent Findings easy bruising 03/27/2017 None ecchymosis Pertinent Findings no preceding trauma 03/27/2017 None ecchymosis Pertinent Findings Denies pain to palpation 03/27/2017 None wheezing Location diffus lidya 03/27/2017 None wheezing Pertinent Findings Denies decreased energy level 03/27/2017 None wheezing Quality intermi ttent 03/27/2017 None wheezing Onset and Resolution ongoing 03/27/2017 None wheezing Onset of Symptom during adulthood 03/27/2017 None wheezing Severity mild 03/27/2017 None wheezing Frequency of Episodes unchanged 03/27/2017 None wheezing Significant Medical Conditions asthma 03/27/2017 None back pain Location in th e midline of in the lower back area 01/26/2017 None back pain Quality aching 01/26/2017 None back pain Onset and Resolution ongoing 01/26/2017 None cough Quality constant 12/07/2016 None cough Onset and Resolution ongoing 12/07/2016 None cough Onset of Symptom _ weeks ago 12/07/2016 None cough Frequency of Episodes daily 12/07/2016 None cough Pertinent Findings chest discomfort 12/07/2016 None cough Pertinent Findings muscle aches 12/07/2016 None chest congestion Quality constant 12/07/2016 None chest congestion Onset and Resolution ongoing 12/07/2016 None chest congestion Onset of Symptom _ weeks ago 12/07/2016 None chest congestion Frequency of Episodes daily 12/07/2016 None back pain Location in th e midline of in the lower back area 12/07/2016 None back pain Quality aching 12/07/2016 None back pain Onset and Resolution ongoing 12/07/2016 None nasal allergies Location in both nares 11/28/2016 None nasal allergies Onset and Resolution sudden in onset 11/28/2016 None nasal allergies Exacerbating Factors allergen exposure 11/28/2016 None nasal allergies Pertinent Findings cough 11/28/2016 None nasal allergies Pertinent Findings hoarseness 11/28/2016 None nasal allergies Onset of Symptom 1 days ago 11/28/2016 None cough Location in the th roat 11/15/2016 None cough Quality constant 11/15/2016 None cough Onset and Resolution sudden in onset 11/15/2016 None cough Onset of Symptom 1 0 days ago 11/15/2016 None cough Frequency of Episodes daily 11/15/2016 None wheezing Location diffus lidya 11/15/2016 None wheezing Quality constant 11/15/2016 None wheezing Onset and Resolution sudden in onset 11/15/2016 None wheezing Onset of Symptom 10 days ago 11/15/2016 None wheezing Frequency of Episodes daily 11/15/2016 None wheezing Pertinent Findings chest tightness 11/15/2016 None wheezing Pertinent Findings decreased energy level 11/15/2016 None sinus congestion Location on both sides 10/17/2016 None sinus congestion Quality fullness 10/17/2016 None sinus congestion Quality pressure 10/17/2016 None sinus congestion Onset and Resolution sudden in onset 10/17/2016 None sinus congestion Onset of Symptom 10 days ago 10/17/2016 None chest congestion Quality constant 10/17/2016 None chest congestion Quality thick secretions 10/17/2016 None chest congestion Onset and Resolution sudden in onset 10/17/2016 None chest congestion Onset of Symptom 10 days ago 10/17/2016 None chest congestion Pertinent Findings cough 10/17/2016 None chest congestion Pertinent Findings decreased energy 10/17/2016 None chest congestion Pertinent Findings nasal congestion 10/17/2016 None chest congestion Pertinent Findings sinus congestion 10/17/2016 None sinus congestion Pertinent Findings cough 10/17/2016 None sinus congestion Pertinent Findings decreased energy level 10/17/2016 None sinus congestion Pertinent Findings hoarseness 10/17/2016 None hypertension Quality chr onic 09/28/2016 None hypertension Onset and Resolution ongoing 09/28/2016 None hypertension Onset of Symptom during adulthood 09/28/2016 None hypertension Severity mi ld 09/28/2016 None hypothyroid Quality chronic manager jamee 09/28/2016 None hypothyroid Onset and Resolution ongoing 09/28/2016 None hypothyroid Onset of Symptom during adulthood 09/28/2016 None hypothyroid Severity mil d with subclinical signs 09/28/2016 None hypothyroid Frequency of Episodes unchanged 09/28/2016 None hypothyroid Alleviating Factors medication 09/28/2016 None hypertension Blood Pressure Values not checking blood pressure at home 09/28/2016 None plantar wart Location on the left 09/28/2016 None plantar wart Quality acu te 09/28/2016 None skin lesion Location upp er back 09/28/2016 None skin lesion Quality tend er 09/28/2016 None ~generic _ scalp 06/29/2016 None ~generic Quality constant 06/29/2016 None ~generic Pertinent Findings itching 06/29/2016 None hypertension Quality chr onic 06/01/2016 None hypertension Onset and Resolution ongoing 06/01/2016 None hypertension Onset of Symptom during adulthood 06/01/2016 None hypertension Severity mi ld 06/01/2016 None hypothyroid Quality chronic manager jamee 06/01/2016 None hypothyroid Onset and Resolution ongoing 06/01/2016 None hypothyroid Onset of Symptom during adulthood 06/01/2016 None hypothyroid Severity mil d with subclinical signs 06/01/2016 None hypothyroid Frequency of Episodes unchanged 06/01/2016 None hypothyroid Alleviating Factors medication 06/01/2016 None sores Location-Major in the groin area 05/11/2016 None sores Quality intermitte nt 05/11/2016 None sores Color red 05/11/2016 None sores Onset of Symptom 1 months ago 05/11/2016 None sores Pertinent Findings Denies itching 05/11/2016 None sores Pertinent Findings Denies pain 05/11/2016 None sinus congestion Onset of Symptom 3-4 days ago 04/05/2016 None sinus congestion Frequency of Episodes daily 04/05/2016 None sinus congestion Pertinent Findings cough 04/05/2016 None sinus congestion Pertinent Findings Denies decreased energy level 04/05/2016 None sinus congestion Pertinent Findings Denies fever 04/05/2016 None sinus congestion Onset and Resolution resolved 04/05/2016 None hypothyroid Quality chronic manager jamee 04/05/2016 None hypothyroid Onset and Resolution ongoing 04/05/2016 None hypothyroid Onset of Symptom during adulthood 04/05/2016 None hypothyroid Severity mil d with subclinical signs 04/05/2016 None hypothyroid Frequency of Episodes unchanged 04/05/2016 None hypothyroid Triggers no known associated factors 04/05/2016 None hypothyroid Alleviating Factors medication 04/05/2016 None sinus congestion Onset and Resolution ongoing 04/01/2016 None sinus congestion Onset of Symptom 3-4 days ago 04/01/2016 None sinus congestion Frequency of Episodes daily 04/01/2016 None sinus congestion Pertinent Findings cough 04/01/2016 None sinus congestion Pertinent Findings Denies decreased energy level 04/01/2016 None sinus congestion Pertinent Findings Denies fever 04/01/2016 None back pain Location lumba r-sacral spine 01/26/2016 None back pain Quality consta nt 01/26/2016 None back pain Onset and Resolution ongoing 01/26/2016 None back pain Limitation on Activities does not limit activities 01/26/2016 None back pain Frequency of Episodes daily 01/26/2016 None back pain Alleviating Factors rest 01/26/2016 None back pain Pertinent Findings Denies extremity numbness 01/26/2016 None back pain Pertinent Findings Denies extremity weakness 01/26/2016 None back pain Pertinent Findings Denies fever 01/26/2016 None back pain Pertinent Findings Denies weakness 01/26/2016 None cough Location in the roat 01/26/2016 None cough Quality productive 01/26/2016 None cough Frequency of Episodes daily 01/26/2016 None cough Pertinent Findings chest discomfort 01/26/2016 None cough Pertinent Findings Denies fever 01/26/2016 None cough Pertinent Findings Denies dyspnea 01/26/2016 None cough Pertinent Findings Denies vomiting 01/26/2016 None cough Onset of Symptom 2 weeks ago 01/26/2016 None cough Location in the roat 12/21/2015 None cough Quality dry 12/21/2015 None cough Onset and Resolution ongoing 12/21/2015 None cough Pertinent Findings chest discomfort 12/21/2015 None cyst Location on the chin 12/21/2015 None cyst Quality firm 12/21/2015 None cyst Quality dull pain 12/21/2015 None cyst Quality constant 12/21/2015 None cyst Onset and Resolution sudden in onset 12/21/2015 None cyst Location left groin 10/12/2015 right cyst Quality soft 10/12/2015 None cyst Onset and Resolution sudden in onset 10/12/2015 None cyst Onset of Symptom 1 months ago 10/12/2015 None cyst Pertinent Findings drainage 10/12/2015 None cyst Severity mild 10/12/2015 None cyst Frequency of Episodes unchanged 10/12/2015 None cyst Triggers no known a ssociated factors 10/12/2015 None hypothyroid Quality chronic manager jamee 08/24/2015 None hypothyroid Onset and Resolution ongoing 08/24/2015 None hypothyroid Onset of Symptom during adulthood 08/24/2015 None hypothyroid Severity mil d with subclinical signs 08/24/2015 None hypothyroid Frequency of Episodes unchanged 08/24/2015 None hypothyroid Triggers no known associated factors 08/24/2015 None hypothyroid Alleviating Factors medication 08/24/2015 None hypothyroid Pertinent Findings Denies dry skin 08/24/2015 None hypothyroid Pertinent Findings Denies dyspnea 08/24/2015 None hypothyroid Pertinent Findings Denies palpitations 08/24/2015 None sinus congestion Onset and Resolution sudden in onset 08/24/2015 None sinus congestion Onset of Symptom 1 days ago 08/24/2015 None sinus congestion Length of Episodes 1 days 08/24/2015 None sinus congestion Pertinent Findings Denies cough 08/24/2015 None sinus congestion Pertinent Findings Denies decreased energy level 08/24/2015 None sinus congestion Pertinent Findings Denies fever 08/24/2015 None sinus congestion Pertinent Findings Denies hoarseness 08/24/2015 None sinus congestion Pertinent Findings Denies weight loss 08/24/2015 None skin lesion Quality rais ed 06/01/2015 None skin lesion Onset of Symptom 3 weeks ago 06/01/2015 None skin lesion Pertinent Findings Denies facial pain 06/01/2015 None skin lesion Location on the chin 06/01/2015 None skin lesion Quality scab bed 06/01/2015 None skin lesion Quality eryt hematous 06/01/2015 None skin lesion Quality firm 06/01/2015 None skin lesion Onset and Resolution gradual in onset 06/01/2015 - lesion on left chin reed s improved, but new lesions on right side of chin, red, raised - skin lesion Severity mod erate 06/01/2015 None hypothyroid Quality chronic manager jamee 05/21/2015 None hypothyroid Onset of Symptom during adulthood 05/21/2015 None hypothyroid Onset and Resolution ongoing 05/21/2015 None hypothyroid Severity mil d with subclinical signs 05/21/2015 None hypothyroid Frequency of Episodes unchanged 05/21/2015 None hypothyroid Triggers no known associated factors 05/21/2015 None hypothyroid Alleviating Factors medication 05/21/2015 None hypothyroid Pertinent Findings Denies dry skin 05/21/2015 None hypothyroid Pertinent Findings Denies dyspnea 05/21/2015 None hypothyroid Pertinent Findings Denies palpitations 05/21/2015 None pain Location-Major on t he fingers 03/26/2015 right hand first finger- feels like a slight throbbing pain. All of her fingernails are broken and red at the ends pain Quality chronic 03/26/2015 None pain Color erythematous 03/26/2015 None pain Onset and Resolution ongoing 03/26/2015 None pain Severity mild 03/26/2015 None pain Severity moderate 03/26/2015 None pain Prior Treatments pr eviously untreated 03/26/2015 None pain Triggers no known t riggers 03/26/2015 None hypothyroid Pertinent Findings brittle nails 03/11/2015 None hypothyroid Quality chronic manager jamee 03/11/2015 None hypothyroid Quality stab le 03/11/2015 None hypothyroid Onset and Resolution ongoing 03/11/2015 None hypothyroid Severity sev ere 03/11/2015 None hypothyroid Frequency of Episodes unchanged 03/11/2015 None Hospital Follow Up _ Oth er: 3-12 12/11/2014 had back surgery Hospital Follow Up _ pain 12/11/2014 patient reports pain is better although having spasms in thighs, and aching in feet- she has pain meds at home that she takes Hospital Follow Up Pertinent Findings medication use 12/11/2014 Hydrocodone and flexeril Hospital Follow Up Quality chronic 12/11/2014 None Hospital Follow Up Severity moderate 12/11/2014 None Hospital Follow Up Significant Medic al Conditions back pain - post op neurosurgical fixati on of spinal stenosis - 12/11/2014 None back pain Location lumba r-sacral spine 09/18/2014 - pt has seen Dr. Swift er for her back pain - has been doing physical therapy off and on for about 3 years - She then saw Dr. Wheat for an injection in her back - and it did not help at all - back pain Location lumba r spine 09/18/2014 None back pain Quality aching 09/18/2014 None back pain Quality consta nt 09/18/2014 None back pain Onset and Resolution ongoing 09/18/2014 None back pain Onset of Symptom 3 years ago 09/18/2014 None back pain Limitation on Activities does not limit activities 09/18/2014 None back pain Frequency of Episodes increasing 09/18/2014 None back pain Triggers activ ity 09/18/2014 None back pain Alleviating Factors medication 09/18/2014 only helps some back pain Initial treatment heat 09/18/2014 None back pain Initial treatment ice 09/18/2014 None back pain Initial treatment injections 09/18/2014 None back pain Initial treatment medication 09/18/2014 None back pain Initial treatment physical therapy 09/18/2014 None back pain Initial treatment stretching 09/18/2014 None back pain Radiating down both legs 09/18/2014 buttock and to knees, dawson sn't go to lower legs back pain Severity moder ate 09/18/2014 reports radiating pain is worse and it is radiating into tailbone. back pain Pertinent Findings Denies extremity numbness 09/18/2014 aching in buttocks and thighs back pain Pertinent Findings Denies sleep disturbance 09/18/2014 None wheezing Onset of Symptom _ weeks ago 09/18/2014 when outside upon exertio n wheezing Significant Medical Conditions asthma 09/18/2014 None wheezing Pertinent Findings Denies cough 09/18/2014 None wheezing Pertinent Findings Denies fever 09/18/2014 None wheezing Pertinent Findings dyspnea 09/18/2014 exertion back pain Location lumba r-sacral spine 07/31/2014 None back pain Location lumba r spine 07/31/2014 None back pain Quality aching 07/31/2014 None back pain Quality consta nt 07/31/2014 None back pain Onset and Resolution ongoing 07/31/2014 None back pain Onset of Symptom 3 years ago 07/31/2014 None back pain Pertinent Findings Denies extremity numbness 07/31/2014 aching in buttocks and thighs back pain Pertinent Findings Denies sleep disturbance 07/31/2014 None memory loss Frequency of Episodes weekly 07/31/2014 1 acute episode-resolved- pt reports for one week this month she had memory loss. She is not sure if it was med related or not. States she went to the hospital for it and stayed several days. back pain Limitation on Activities does not limit activities 07/31/2014 None back pain Frequency of Episodes increasing 07/31/2014 None back pain Triggers activ ity 07/31/2014 None back pain Alleviating Factors medication 07/31/2014 only helps some back pain Initial treatment physical therapy 07/31/2014 None back pain Initial treatment medication 07/31/2014 None back pain Initial treatment injections 07/31/2014 None back pain Initial treatment stretching 07/31/2014 None back pain Initial treatment ice 07/31/2014 None back pain Initial treatment heat 07/31/2014 None back pain Mechanism of injury unknown 07/31/2014 None back pain Radiating down both legs 07/31/2014 buttock and to knees, dawson sn't go to lower legs back pain Severity moder ate 07/31/2014 None memory loss Limitation on Activities does not limit activities 07/31/2014 None memory loss Length of Episodes _ days 07/31/2014 None memory loss Triggers no known associated factors 07/31/2014 None memory loss Pertinent Findings Denies ataxia 07/31/2014 None memory loss Pertinent Findings Denies motor deficits 07/31/2014 None memory loss Pertinent Findings Denies personality changes 07/31/2014 None memory loss Pertinent Findings Denies seizure 07/31/2014 None memory loss Onset and Resolution resolved 07/31/2014 None Advance Directives No Advance Directive data Encounters Encounter Performer Loca tion Codes Date [id number] EST. PATIENT, LEVEL IV Diagnosis: Other specified hypothyroidism[ICD10: E03.8] Diagnosis: Mild intermittent asthma, uncomplicated[ICD10: J45.20] Diagnosis: Diarrhea, unspecified[ICD10: R19.7] Lynn Finn MD, [facility] CPT-4: 05110 05/23/2019 [id number] EST. PATIENT, LEVEL IV Diagnosis: Other acute sinusitis[ICD10: J01.80] Diagnosis: Other allergic rhinitis[ICD10: J30.89] Diagnosis: Herpesviral vesicular dermatitis[ICD10: B00.1] Mishel Finn MD, [facility] CPT-4: 84503 05/07/2019 87601 EST. PATIENT, LEVEL III Diagnosis: Pain in left knee[ICD10: M25.562] Diagnosis: Other pruritus[ICD10: L29.8] Diagnosis: Rash and other nonspecific skin eruption[ICD10: R21] Mishel Finn MD, [facility] CPT-4: 53701 04/29/2019 ([id number]) 63289 EST. P ATIENT, LEVEL IV Diagnosis: Hypothyroidism, unspecified[ICD10: E03.9] Diagnosis: Changes in skin texture[ICD10: R23.4] Diagnosis: Mild intermittent asthma, uncomplicated[ICD10: J45.20] Lynn Finn MD, [facility] CPT-4: 40861 03/21/2019 ([id number]) 73104 EST. P ATIENT, LEVEL IV Diagnosis: Mild intermittent asthma, uncomplicated[ICD10: J45.20] Diagnosis: Hypothyroidism, unspecified[ICD10: E03.9] Diagnosis: Low back pain[ICD10: M54.5] Lynn Finn MD, [facility] CPT- 4: 48754 01/22/2019 ([id number]) Miscellaneou s no charge Diagnosis: Essential (primary) hypertension[ICD10: I10] Damari Finn MD, [facility] CPT-4: 31356 11/21/2018 ([id number]) 54528 EST. P ATIENT, LEVEL IV Diagnosis: Essential (primary) hypertension[ICD10: I10] Diagnosis: Hypothyroidism, unspecified[ICD10: E03.9] Diagnosis: Low back pain[ICD10: M54.5] Lynn Finn MD, [facility] CPT- 4: 54141 10/30/2018 ([id number]) 72814 EST. [facility]: Acute recurrent maxillary sinusitis[ICD10: J01.01] Diagnosis: Other mucopurulent conjunctivitis, left eye[ICD10: H10.022] Diagnosis: Other allergic rhinitis[ICD10: J30.89] Lynn Finn MD, [facility] CPT-4: 53219 06/28/2018 [id number] EST. PATIENT, LEVEL IV Diagnosis: Essential (primary) hypertension[ICD10: I10] Diagnosis: Other specified hypothyroidism[ICD10: E03.8] Diagnosis: Other specified anemias[ICD10: D64.89] Diagnosis: Localized edema[ICD10: R60.0] Mishel Finn MD, [facility] CPT-4: 42199 04/04/2018 ([id number]) 47961 EST. [facility] Diagnosis: Mild persistent asthma, uncomplicated[ICD10: J45.30] Diagnosis: Actinic keratosis[ICD10: L57.0] Lynn Finn MD, [facility] CPT- 4: 38176 01/05/2018 ([id number]) Miscellaneou s no charge Diagnosis: Essential (primary) hypertension[ICD10: I10] Damari Finn MD, [facility] CPT-4: 67631 12/12/2017 51248 EST. PATIENT, LEVEL III Diagnosis: Essential (primary) hypertension[ICD10: I10] Diagnosis: Atrophy of thyroid (acquired)[ICD10: E03.4] Diagnosis: Low back pain[ICD10: M54.5] Mishel Finn MD, [facility] CPT-4: 87528 11/29/2017 40161 EST. PATIENT, LEVEL III Diagnosis: Pain in left hip[ICD10: M25.552] Mishel Finn MD, [facility] CPT-4: 05560 10/25/2017 94248 EST. PATIENT, LEVEL IV Diagnosis: Localized edema[ICD10: R60.0] Mishel Finn MD, [facility] CPT-4: 42219 09/12/2017 33388 EST. PATIENT, LEVEL IV Diagnosis: Mild persistent asthma with (acute) exacerbation[ICD10: J45.31] Mishel Finn MD, [facility] CPT-4: 47510 06/14/2017 89789 EST. PATIENT, LEVEL III Diagnosis: Localized edema[ICD10: R60.0] Diagnosis: Mild persistent asthma, uncomplicated[ICD10: J45.30] Mishel Finn MD, [facility] CPT-4: 14998 05/10/2017 65110 EST. PATIENT, LEVEL III Diagnosis: Mild persistent asthma with (acute) exacerbation[ICD10: J45.31] Mishel Finn MD, [facility] CPT-4: 76360 04/19/2017 ([id number]) 41557 EST. P ATIENT, LEVEL IV Diagnosis: Contusion of left wrist, initial encounter[ICD10: S60.212A] Diagnosis: Hypothyroidism, unspecified[ICD10: E03.9] Diagnosis: Mild persistent asthma with (acute) exacerbation[ICD10: J45.31] Diagnosis: Low back pain[ICD10: M54.5] Lynn Finn MD, [facility] CPT- 4: 04396 03/27/2017 ([id number]) 55596 EST. P ATIENT, LEVEL IV Diagnosis: Essential (primary) hypertension[ICD10: I10] Diagnosis: Atrophy of thyroid (acquired)[ICD10: E03.4] Diagnosis: Low back pain[ICD10: M54.5] Damari Finn MD, [facility] CPT-4: 47048 01/26/2017 55592 EST. PATIENT, LEVEL III Diagnosis: Other allergic rhinitis[ICD10: J30.89] Diagnosis: Mild persistent asthma with (acute) exacerbation[ICD10: J45.31] Mishel Finn MD, [facility] CPT-4: 56109 12/07/2016 24315 EST. PATIENT, LEVEL III Diagnosis: Mild persistent asthma with (acute) exacerbation[ICD10: J45.31] Mishel Finn MD [facility] CPT-4: 59611 11/28/2016 23691 EST. PATIENT, LEVEL III Diagnosis: Mild persistent asthma with (acute) exacerbation[ICD10: J45.31] Diagnosis: Acute bronchitis due to other specified organisms[ICD10: J20.8] Mishel Finn MD, [facility] CPT-4: 71178 11/15/2016 48623 EST. PATIENT, LEVEL IV Diagnosis: Other acute sinusitis[ICD10: J01.80] Diagnosis: Other allergic rhinitis[ICD10: J30.89] Diagnosis: Mild persistent asthma with (acute) exacerbation[ICD10: J45.31] Mishel Finn MD, [facility] CPT-4: 91830 10/17/2016 ([id number]) 51306 EST. P ATIENT, LEVEL IV Diagnosis: Essential (primary) hypertension[ICD10: I10] Diagnosis: Low back pain[ICD10: M54.5] Damari Finn MD, [facility] CPT-4: 99243 09/28/2016 03357 EST. PATIENT, LEVEL III Diagnosis: Tinea barbae and tinea capitis[ICD10: B35.0] Diagnosis: Other specified hypothyroidism[ICD10: E03.8] Mishel Finn MD, [facility] CPT-4: 40570 06/29/2016 ([id number]) 18163 EST. P ATIENT, LEVEL IV Diagnosis: Essential (primary) hypertension[ICD10: I10] Diagnosis: Atrophy of thyroid (acquired)[ICD10: E03.4] Diagnosis: Rash and other nonspecific skin eruption[ICD10: R21] Damari Finn MD, [facility] CPT-4: 45998 06/01/2016 ([id number]) 07513 EST. P ATIENT, LEVEL III Diagnosis: Cellulitis of groin[ICD10: L03.314] Damari Finn MD, [facility] CPT- 4: 52747 05/11/2016 ([id number]) 09240 EST. P ATIENT, LEVEL IV Diagnosis: Hypothyroidism, unspecified[ICD10: E03.9] Diagnosis: Candidiasis of vulva and vagina[ICD10: B37.3] Diagnosis: Essential (primary) hypertension[ICD10: I10] Diagnosis: Low back pain[ICD10: M54.5] Lynn Finn MD, [facility] CPT- 4: 47849 04/05/2016 99355 EST. PATIENT, LEVEL III Diagnosis: Other acute sinusitis[ICD10: J01.80] Diagnosis: Rash and other nonspecific skin eruption[ICD10: R21] Mishel Finn MD, [facility] CPT-4: 15036 04/01/2016 ([id number]) 29007 EST. P ATIENT, LEVEL IV Diagnosis: Essential (primary) hypertension[ICD10: I10] Diagnosis: Hypothyroidism, unspecified[ICD10: E03.9] Diagnosis: Low back pain[ICD10: M54.5] Diagnosis: Other obesity due to excess calories[ICD10: E66.09] Lynn Finn MD, [facility] CPT-4: 00996 01/26/2016 16854 EST. PATIENT, LEVEL IV Diagnosis: Essential (primary) hypertension[ICD10: I10] Diagnosis: Cutaneous abscess of face[ICD10: L02.01] Mishel Finn MD, [facility] CPT-4: 46469 12/21/2015 ([id number]) 51345 EST. P ATIENT, LEVEL III Diagnosis: Cutaneous abscess of groin[ICD10: L02.214] Diagnosis: Hypothyroidism, unspecified[ICD10: E03.9] Lynn Finn MD, [facility] CPT-4: 43125 10/12/2015 ([id number]) 20402 EST. P ATIENT, LEVEL III Diagnosis: Essential (primary) hypertension[ICD10: I10] Diagnosis: Hypothyroidism, unspecified[ICD10: E03.9] Diagnosis: Allergic rhinitis, unspecified[ICD10: J30.9] Lynn Finn MD, [facility] CPT-4: 45181 08/24/2015 ([id number]) 66128 EST. P ATIENT, LEVEL III Diagnosis: Skin infection[ICD9: 686.9] Damari Finn MD, [facility] CPT-4: 42908 06/01/2015 ([id number] 04528 EST. P ATIENT, LEVEL III Diagnosis: Hypothyroidism[ICD9: 244.9] Diagnosis: ESSENTIAL HYPERTENSION[ICD9: 401.9] Damari Finn MD, [facility] CPT- 4: 25136 05/21/2015 ([id number]) 21012 EST. P ATIENT, LEVEL III Diagnosis: Hypothyroidism[ICD9: 244.9] Diagnosis: Fingernail abnormalities[ICD9: 703.8] Lynn Finn MD, [facility] CPT-4: 32686 03/26/2015 ([id number]) 87525 EST. P ATIENT, LEVEL II Diagnosis: Hypothyroidism[ICD9: 244.9] Maritza Finn MD, [facility] CPT-4: 82543 03/11/2015 ([id number]) 26267 EST. P ATIENT, LEVEL IV Diagnosis: ESSENTIAL HYPERTENSION[ICD9: 401.9] Diagnosis: Low back pain[ICD9: 724.2] Diagnosis: Hypothyroidism[ICD9: 244.9] Damari Finn MD, [facility] CPT-4: 40229 12/11/2014 ([id number]) 33007 EST. P ATIENT, LEVEL IV Diagnosis: Hidradenitis suppurativa[ICD9: 705.83] Diagnosis: ESSENTIAL HYPERTENSION[ICD9: 401.9] Diagnosis: Low back pain[ICD9: 724.2] Diagnosis: Lumbar spinal stenosis[ICD9: 724.02] Diagnosis: HYPOTHYROIDISM[ICD9: 244.9] Damari Finn MD, [facility] CPT-4: 13343 09/18/2014 Office outpatient ne w 30 minutes Diagnosis: ESSENTIAL HYPERTENSION[ICD9: 401.9] Diagnosis: Hypothyroidism[ICD9: 244.9] Diagnosis: Low back pain[ICD9: 724.2] Lynn Finn MD, [facility] CPT- 4: 04605 07/31/2014 Plan of Care Planned Activity Notes C odes Status Date Visit Plan: Hypothyroidism - pt wit h chronic hypothyroidism, continue with current medication, will monitor pt to signs or symptoms of lack of adequate supplementation. Pt is to continue with current dose of medication unless directed otherwise. Check labs at regular intervals q 3 months or q 6 months based on previous levels of control. Asthma - chronic problem for this patient. We have reviewed chronic treatment strategy, symptom control, and plans for acute exacerbations. No changes today to the current treatment plan as the patient is stable, monitor for acute changes Diarrhea -start probiotics -call if does not resolve or if any worse 05/23/2019 Appointment: Lynn Arenas WPtel: [phone] [phone] (30 min) Complex 05/23/2019 Patient Education: Patient Medication Summary Completed 05/23/2019 Visit Plan: Sinusitis - Pt has acut e infection - pain in face, maxillary region, Pt informed to use decongestant, RX given to patient, sinus rinses also recommended. Call if symptoms do not show improvement. Allerg ies - chronic - recommended pt to use allergy medication as prescribed. Pt has been counseled as to the appropriate use of the medication. Pt to call if allergy symptoms are not controlled with the medication. If using nasal spray, instructions as follows: Nasal spray- use twice daily, one spray per nostril twice daily, after 30 minutes, rinse out nose with saline spray.. Use opposite hand per nostril to spray in the nasal steroid allergy spray. Cold sore, canker sore - will send RX - pt is to notify clinic if symptoms do not improve, if they worsen, or with any changes, questions, or concerns. 05/07/2019 [phone] ([facility] 05/07/2019 Patient Education: Patient Medication Summary Completed 05/07/2019 Visit Plan: Rash - The patient was instructed in appropriate wound care. The patient was instructed to use the medication as per RX. The patient is to call for any change in symptoms, increase in size of the lesion, increase in pain, worsening redness, warmth, discharge. Left knee pain - pt is to use RICE - rest, ice, compression, elevation - pt is to notify clinic if symptoms do not improve, if they worsen, or with any changes, questions, or concerns. 04/29/2019 Appointment: [facility] Bal[phone] [facility] [place] (30 min) Complex 04/29/2019 Patient Education: Patient Medication Summary Completed 04/29/2019 Appointment: Lynn Arenas WPtel: [phone] [phone] [place] (30 min) Complex 04/23/2019 Visit Plan: Hypothyroidism -patient is having symptoms of over supplementation -check labs today Skin changes-patient used to see Dr Solitario but hasn't see anyone recently -recommend skin check with Dr Yamel boyd- stable- no change in current treatment 03/21/2019 Appointment: Lynn Arenas WPtel: [phone] [phone] [place] (30 min) Complex 03/21/2019 Patient Education: Patient Medication Summary Completed 03/21/2019 Care Plan: Comp Metabolic Pending 03/21/2019 Care Plan: Cbc With Differential Pending 03/21/2019 Care Plan: Tsh Pending 03/21/2019 Care Plan: Free T4 Pending 03/21/2019 Visit Plan: Asthma - chronic proble m for this patient. We have reviewed chronic treatment strategy, symptom control, and plans for acute exacerbations. No changes today to the current treatment plan as the patient is stable, monitor for acute changes Hypothyroidism - pt with chronic hypothyroidism, continue with current medication, will monitor pt to signs or symptoms of lack of adequate supplementation. Pt is to continue with current dose of medication unless directed otherwise. Check labs at regular intervals q 3 months or q 6 months based on previous levels of control. Chronic Back pain - the patient was counseled to always first attempt to use modalities other than pain medication for alleviation of the muscle spasms and pain. The patient was also encouraged to continue with back exercises as previously directed. Pt is to use pain medication as directed. If pain medications are used inappropriately or early refills are requested, the patient understands that is a breech of trust/contract and could result in the patient's termination from this medical practice. 01/22/2019 Appointment: Lynn Arenas WPtel: [phone] [phone] [place] (30 min) Complex 01/22/2019 Patient Education: Patient Medication Summary Completed 01/22/2019 Patient Education: Back Pain Completed 01/22/2019 Appointment: Nurse Visit 11/21/2018 Patient Education: Patient Medication Summary Completed 11/21/2018 Patient Education: Hypertension Completed 11/21/2018 Visit Plan: Hypertension - well con trolled - okay to start off lisinopril/hctz for now, continue with no added salt diet. Pt has been encouraged to exercise daily. The pt has been advised to call the office if ther e are any acute concerns about change in blood pressure readings at home. Hypothyroidism-inrease dose to 137mcg daily-repeat labs in 3 months Chronic back pain -refer for PT to evaluate and treat as indicated 10/30/2018 Appointment: Lynn Arenas WPtel: [phone] (30 min) Complex 10/30/2018 Patient Education: Patient Medication Summary Completed 10/30/2018 Patient Education: Hypertension Completed 10/30/2018 Patient Education: Back Pain Completed 10/30/2018 Appointment: Lynn Arenas WPtel: [phone] (30 min) Complex 10/26/2018 Patient Education: Patient Medication Summary Completed 10/23/2018 Appointment: Lynn Arenas WPtel: [phone] [phone] (15 min) Moderate 10/19/2018 Appointment: Damari Finn WPtel: [phone] (15 min) Moderate 09/19/2018 Visit Plan: Sinusitis - Pt has acut e infection - pain in face, maxillary region, Pt informed to use decongestant, RX given to patient, sinus rinses also recommended. Recommend take start on probiotic while on antib iotics. Call if symptoms do not show improvement. Conjunctivitis - rx for eye drops/lube sent electronically to the patient's pharmacy. The patient has been instructed to cleanse affected eye with warm washcloth, then place medication into affected eye four times daily. 06/28/2018 Visit Plan: Sinusitis - Pt has acut e infection - pain in face, maxillary region, Pt informed to use decongestant, RX given to patient, sinus rinses also recommended. Recommend take start on probiotic while on antib iotics. Call if symptoms do not show improvement. Conjunctivitis - rx for eye drops/lube sent electronically to the patient's pharmacy. The patient has been instructed to cleanse affected eye with warm washcloth, then place medication into affected eye four times daily. 06/28/2018 Appointment: [phone] [phone] (30 min) Complex 06/28/2018 Patient Education: Patient Medication Summary Completed 06/28/2018 Visit Plan: Hypertension - uncontro lled - the patient's medications have been modified as documented in the visit note. The patient has been counseled to cut back on salt in diet for a no added salt diet, low fat d iet, start an exercise program with low weight bearing exercises and higher aerobic activity for heart health. The patient is to check blood pressure readings as an outpatient and either fax, call, or email the readings to the office next week for practitioner to review. The pt is to call for acute concerns. Edema - pt has been advised to elevate legs to prevent dependent edema, compression has been recommended to help to naturally decrease peripheral edema. Diuretic use has been discussed and pt has been instructed in appropriate use of such medication as necessary to further attempt to reduce peripheral edema. Hypothyroidism - pt with chronic hypothyroidism, continue with current medication, will monitor pt to signs or symptoms of lack of adequate supplementation. Pt is to continue with current dose of medication unless directed otherwise. Check labs at regular intervals wither q 3 months or q 6 months based on previous levels of control. Anemia - will continue to monitor. 04/04/2018 Visit Plan: Hypertension - uncontro lled - the patient's medications have been modified as documented in the visit note. The patient has been counseled to cut back on salt in diet for a no added salt diet, low fat d iet, start an exercise program with low weight bearing exercises and higher aerobic activity for heart health. The patient is to check blood pressure readings as an outpatient and either fax, call, or email the readings to the office next week for practitioner to review. The pt is to call for acute concerns. Edema - pt has been advised to elevate legs to prevent dependent edema, compression has been recommended to help to naturally decrease peripheral edema. Diuretic use has been discussed and pt has been instructed in appropriate use of such medication as necessary to further attempt to reduce peripheral edema. Hypothyroidism - pt with chronic hypothyroidism, continue with current medication, will monitor pt to signs or symptoms of lack of adequate supplementation. Pt is to continue with current dose of medication unless directed otherwise. Check labs at regular intervals wither q 3 months or q 6 months based on previous levels of control. Anemia - will continue to monitor. 04/04/2018 Appointment: Mishel Balderrama WPtel: [phone] (15 min) Moderate 04/04/2018 Patient Education: Patient Medication Summary Completed 04/04/2018 Visit Plan: Wound Instructions - Pt was instructed to keep the wound clean, wash with antibacterial soap, use triple antibiotic ointment, call if redness, pustular drainage, or any other acute concerns. 01/19/2018 Appointment: Lynn Arenas WPtel: [phone] (30 min) Complex 01/19/2018 Patient Education: Patient Medication Summary Completed 01/19/2018 Visit Plan: Asthma - chronic proble m for this patient. We have reviewed chronic treatment strategy, symptom control, and plans for acute exacerbations. 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 01/05/2018 Appointment: Lynn Arenas WPtel: [phone] (30 min) Complex 01/05/2018 Patient Education: Patient Medication Summary Completed 01/05/2018 Appointment: Nurse Visit 12/12/2017 Patient Education: Patient Medication Summary Completed 12/12/2017 Visit Plan: Hypertension - well con trolled - continue with current medications, continue with no added salt diet. Pt has been encouraged to exercise daily. The pt has been advised to call the office if there are any acute concerns about change in blood pressure readings at home. Hypothyroidism - pt with chronic hypothyroidism, continue with current medication, will monitor pt to signs or symptoms of lack of adequate supplementation. Pt is to continue with current dose of medication unless directed otherwise. Check labs at regular intervals wither q 3 months or q 6 months based on previous levels of control. L ow back pain- the patient was instructed in appropriate posture, need for weight loss to alleviate abdominal obesity that is worsening the patient's back pain.. The pt is to use prn antiinflammatories to manage acute pain. The patient is to call the office if the pain is worsening or does not improve. 11/29/2017 Appointment: Mishel Balderrama: [phone] [phone] (30 min) Complex 11/29/2017 Patient Education: Patient Medication Summary Completed 11/29/2017 Visit Plan: Low back pain, left hip pain, left buttock pain - the patient was instructed in appropriate posture, need for weight loss to alleviate abdominal obesity that is worsening the patient's back pain.. The pt is to use prn antiinflammatories to manage acute pain. The patient is to call the office if the pain is worsening or does not improve. 10/25/2017 Appointment: [phone] ([facility]) [facility] 10/25/2017 Patient Education: Patient Medication Summary Completed 10/25/2017 Visit Plan: Edema - pt has been adv ised to elevate legs to prevent dependent edema, compression has been recommended to help to naturally decrease peripheral edema. Diuretic use has been discussed and pt has been i nstructed in appropriate use of such medication as necessary to further attempt to reduce peripheral edema. 09/12/2017 Visit Plan: Edema - pt has been adv ised to elevate legs to prevent dependent edema, compression has been recommended to help to naturally decrease peripheral edema. Diuretic use has been discussed and pt has been i nstructed in appropriate use of such medication as necessary to further attempt to reduce peripheral edema. 09/12/2017 Visit Plan: Edema - pt has been adv ised to elevate legs to prevent dependent edema, compression has been recommended to help to naturally decrease peripheral edema. Diuretic use has been discussed and pt has been i nstructed in appropriate use of such medication as necessary to further attempt to reduce peripheral edema. 09/12/2017 Appointment: Mis[facility] Balderrama [phone] [facility] [place] (30 min) Complex 09/12/2017 Patient Education: Patient Medication Summary Completed 09/12/2017 Appointment: Lynn Arenas WPtel: [phone] [phone] [place] (30 min) Complex 06/27/2017 Visit Plan: Asthma Exacerbation - A sthma is a chronic problem for this patient, however, the pt is experiencing an acute exacerbation of the chronic Asthma symptoms. Pt is to receive appropriate treatment as an out patient, but the pt is aware that if symptoms worsen or do not improve, to call [facility] for instructions, or go to the EMERGENCY ROOM if the symptoms are beyond acute control with rescue medications. We have reviewed chronic treatment strategy, symptom control, and plans for acute exacerbations. No changes today to the current treatment plan as the patient is stable, monitor for acute changes. 06/14/2017 Appointment: Mishel Balderrama WPtel: [phone] [phone] [place] (15 min) Moderate 06/14/2017 Patient Education: Patient Medication Summary Completed 06/14/2017 Visit Plan: Edema - Right leg notic eably more edematous than the left, pt denies trauma - will order US - pt has been advised to elevate legs to prevent dependent edema, compression has been recommended to help to naturally decrease peripheral edema. Diuretic use has been discussed and pt has been instructed in appropriate use of such medication as necessary to further attempt to reduce peripheral edema. Asthma - chronic problem for this patient. We have reviewed chronic treatment strategy, symptom control, and plans for acute exacerbations. No changes today to the current treatment plan as the patient is stable, monitor for acute changes 05/10/2017 Appointment: Mishel Balderrama WPtel: [phone] [phone] [place] (15 min) Moderate 05/10/2017 Patient Education: Patient Medication Summary Completed 05/10/2017 Care Plan: VASCULAR STUDY Pending 05/10/2017 Visit Plan: Asthma Exacerbation - A sthma is a chronic problem for this patient, however, the pt is experiencing an acute exacerbation of the chronic Asthma symptoms. Pt is to receive appropriate treatment as an out patient, but the pt is aware that if symptoms worsen or do not improve, to call [facility] for instructions, or go to the EMERGENCY ROOM if the symptoms are beyond acute control with rescue medications. We have reviewed chronic treatment strategy, symptom control, and plans for acute exacerbations. No changes today to the current treatment plan as the patient is stable, monitor for acute changes. 04/19/2017 Appointment: Mis[facility] Balderrama [phone] [facility] (15 min) Moderate 04/19/2017 Patient Education: Patient Medication Summary Completed 04/19/2017 Visit Plan: Asthma Exacerbation - A sthma is a chronic problem for this patient, however, the pt is experiencing an acute exacerbation of the chronic Asthma symptoms. Pt is to receive appropriate treatment as an out patient, but the pt is aware that if symptoms worsen or do not improve, to call [facility] for instructions, or go to the EMERGENCY ROOM if the symptoms are beyond acute control with rescue medications. We have reviewed chronic treatment strategy, symptom control, and plans for acute exacerbations. No changes today to the current treatment plan as the patient is stable, monitor for acute changes. Kenalog injection today in the office Bruise-get labs from urgent care Hypothyroidism - pt with chronic hypothyroidism, continue with current medication, will monitor pt to signs or symptoms of lack of adequate supplementation. Pt is to continue with current dose of medication unless directed otherwise. Check labs at regular intervals wither q 3 months or q 6 months based on previous levels of control. Low back gldm-lubjbwn-qlygxh tramadol for prn use 03/27/2017 Appointment: Lynn A[facility]as [phone] [phone] [place] (30 min) Complex 03/27/2017 Patient Education: Patient Medication Summary Completed 03/27/2017 Visit Plan: Hypertension - well con trolled - continue with current medications, continue with no added salt diet. Pt has been encouraged to exercise daily. The pt has been advised to call the office if there are any acute concerns about change in blood pressure readings at home. Hypothyroidism - pt with chronic hypothyroidism, continue with current medication, will monitor pt to signs or symptoms of lack of adequate supplementation. Pt is to continue with current dose of medication unless directed otherwise. Check labs at regular intervals wither q 3 months or q 6 months based on previous levels of control. L ow back pain- the patient was instructed in appropriate posture, need for weight loss to alleviate abdominal obesity that is worsening the patient's back pain.. The pt is to use prn antiinflammatories to manage acute pain. The patient is to call the office if the pain is worsening or does not improve. 01/26/2017 App[facility]ment: [phone] (15 min) Moderate 01/26/2017 Patient Education: Patient Medication Summary Completed 01/26/2017 Visit Plan: Allergies - chronic - r ecommended pt to use allergy medication as prescribed. Pt has been counseled as to the appropriate use of the medication. Pt to call if allergy symptoms are not controlled with th e medication. If using nasal spray, instructions as follows: Nasal spray- use twice daily, one spray per nostril twice daily, after 30 minutes, rinse out nose with saline spray.. Use opposite hand per nostril to spray in the nasal steroid allergy spray. Asthma - chronic problem for this patient. We have reviewed chronic treatment strategy, symptom control, and plans for acute exacerbations. No changes today to the current treatment plan as the patient is stable, monitor for acute changes Thrush - use RX as prescribed - notify clinic if symptoms do not improve, if they worsen, or with any questions or concerns. 12/07/2016 Appointment: Mishel Balderrama [phone] [facility] (15 min) Moderate 12/07/2016 Patient Education: Patient Medication Summary Completed 12/07/2016 Patient Education: Obesity Completed 12/07/2016 Appointment: Nurse Visit 11/29/2016 Visit Plan: Asthma Exacerbation - A sthma is a chronic problem for this patient, however, the pt is experiencing an acute exacerbation of the chronic Asthma symptoms. Pt is to receive appropriate treatment as an out patient, but the pt is aware that if symptoms worsen or do not improve, to call [facility] for instructions, or go to the EMERGENCY ROOM if the symptoms are beyond acute control with rescue medications. We have reviewed chronic treatment strategy, symptom control, and plans for acute exacerbations. No changes today to the current treatment plan as the patient is stable, monitor for acute changes. 11/28/2016 Visit Plan: Asthma Exacerbation - A sthma is a chronic problem for this patient, however, the pt is experiencing an acute exacerbation of the chronic Asthma symptoms. Pt is to receive appropriate treatment as an out patient, but the pt is aware that if symptoms worsen or do not improve, to call [facility] for instructions, or go to the EMERGENCY ROOM if the symptoms are beyond acute control with rescue medications. We have reviewed chronic treatment strategy, symptom control, and plans for acute exacerbations. No changes today to the current treatment plan as the patient is stable, monitor for acute changes. Breathing treatments as directed for dyspnea/persistent wheezing/asthma symptoms. 11/28/2016 Appointment: Mishel Balderrama [facility]el[phone] [facility] (15 min) Moderate 11/28/2016 Patient Education: Patient Medication Summary Completed 11/28/2016 Appointment: Mishel Balderrama [facility]Ptel[facility] [phone] [facility] (15 min) Moderate 11/24/2016 Visit Plan: Bronchitis - acute case of bronchitis identified. Pt has been given antibiotics, pt has been instructed to call if symptoms are not improved, or if symptoms acutely worsen. Asthma Exacerbation - Asthma is a chronic problem for this patient, however, the pt is experiencing an acute exacerbation of the chronic Asthma symptoms. Pt is to receive appropriate treatment as an out patient, but the pt is aware that if symptoms worsen or do not improve, to call [facility] for instructions, or go to the EMERGENCY ROOM if the symptoms are beyond acute control with rescue medications. We have reviewed chronic treatment strategy, symptom control, and plans for acute exacerbations. No changes today to the current treatment plan as the patient is stable, monitor for acute changes. 11/15/2016 Appointment: Mishel Balderrama [facility]Pt[phone] [phone] (30 min) Complex 11/15/2016 Patient Education: Patient Medication Summary Completed 11/15/2016 Patient Education: Obesity Completed 11/15/2016 Visit Plan: Sinusitis - Pt has acut e infection - pain in face, maxillary region, Pt informed to use decongestant, RX given to patient, sinus rinses also recommended. Call if symptoms do not show improvement. Allerg ies - chronic - recommended pt to use allergy medication as prescribed. Pt has been counseled as to the appropriate use of the medication. Pt to call if allergy symptoms are not controlled with the medication. If using nasal spray, instructions as follows: Nasal spray- use twice daily, one spray per nostril twice daily, after 30 minutes, rinse out nose with saline spray.. Use opposite hand per nostril to spray in the nasal steroid allergy spray. Asthma Exacerbation - Asthma is a chronic problem for this patient, however, the pt is experiencing an acute exacerbation of the chronic Asthma symptoms. Pt is to receive appropriate treatment as an out patient, but the pt is aware that if symptoms worsen or do not improve, to call [facility] for instructions, or go to the EMERGENCY ROOM if the symptoms are beyond acute control with rescue medications. We have reviewed chronic treatment strategy, symptom control, and plans for acute exacerbations. No changes today to the current treatment plan as the patient is stable, monitor for acute changes. 10/17/2016 Appointment: Mishel Balderrama [facility]Ptel: [facility] ([facility] min[facility] Complex 10/17/2016 Patient Education: Patient Medication Summary Completed 10/17/2016 Patient Education: Obesity Completed 10/17/2016 Visit Plan: Hypertension - well con trolled - continue with current medications, continue with no added salt diet. Pt has been encouraged to exercise daily. The pt has been advised to call the office if there are any acute concerns about change in blood pressure readings at home. discussed labs - no change in medications. Back pain - prn tylenol 09/28/2016 Appointment: Dam[phone] (15 min) Moderate 09/28/2016 Patient Education: Patient Medication Summary Completed 09/28/2016 Patient Education: Obesity Completed 09/28/2016 Patient Education: Hypertension Completed 09/28/2016 Patient Education: Patient Medication Summary Completed 09/27/2016 Visit Plan: Tinea of the scalp - wi ll send RX - pt is to notify clinic if symptoms do not improve, if they worsen, or with any questions or concerns. Hypothyroidism - Continue with current dose of levothyroxine and not decrease the dose, due to pt being symptomatic (fatigue, weight gain, etc.) Repeat TSH and Free T4 in 3 months. Pt with chronic hypothyroidism, continue with current medication, will monitor pt to signs or symptoms of lack of adequate supplementation. Pt is to continue with current dose of medication unless directed otherwise. Check labs at regular intervals wither q 3 months or q 6 months based on previous levels of control. 06/29/2016 Appointment: Lynn Arenas WPtel: [phone] [phone] (15 min) Moderate 06/29/2016 Patient Education: Patient Medication Summary Completed 06/29/2016 Patient Education: Obesity Completed 06/29/2016 Visit Plan: Hypertension - well con trolled - continue with current medications, continue with no added salt diet. Pt has been encouraged to exercise daily. The pt has been advised to call the office if there are any acute concerns about change in blood pressure readings at home. Hypothyroidism - pt with chronic hypothyroidism, continue with current medication, will monitor pt to signs or symptoms of lack of adequate supplementation. Pt is to continue with current dose of medication unless directed otherwise. Check labs at regular intervals wither q 3 months or q 6 months based on previous levels of control. R ahs - rx for fluconazole 06/01/2016 Appointment: Damari Finn WPtel: [phone] [id number] (15 min) Moderate 06/01/2016 Patient Education: Patient Medication Summary Completed 06/01/2016 Patient Education: Obesity Completed 06/01/2016 Visit Plan: Cellulitis - continue w ith oral antibiotics as previously directed, return to clinic as previously directed, call for acute change in symptoms, worsening redness, warmth, discharge. 05/11/2016 Appointment: Damari Finn WPtel: [phone] [id number] (15 min) Moderate 05/11/2016 Patient Education: Patient Medication Summary Completed 05/11/2016 Patient Education: Obesity Completed 05/11/2016 Visit Plan: Hypertension - well con trolled - continue with current medications, continue with no added salt diet. Pt has been encouraged to exercise daily. The pt has been advised to call the office if there are any acute concerns about change in blood pressure readings at home. Hypothyroidism - pt with chronic hypothyroidism, continue with current medication, will monitor pt to signs or symptoms of lack of adequate supplementation. Pt is to continue with current dose of medication unless directed otherwise. Check labs at regular intervals wither q 3 months or q 6 months based on previous levels of control. C hronic Pain Syndrome - pt has chronic pain - has been maintained on current medications, has not sought out other medications, only uses PRN pain medications as directed, and understands the consequences of over-medication. Yeast infection-RX for diflucan 04/05/2016 Patient Education: Patient Medication Summary Completed 04/05/2016 Patient Education: Obesity Completed 04/05/2016 Patient Education: Hypertension Completed 04/05/2016 Visit Plan: Sinusitis - Pt has acut e infection - pain in face, maxillary region, Pt informed to use decongestant, RX given to patient, sinus rinses also recommended. Call if symptoms do not show improvement. Dermat itis around lips - will send RX - pt is to notify clinic if symptoms do not improve, or with any concerns. 04/01/2016 Appointment: Lynn Arenas WPtel: [address] [place], [place] [phone] (30 min) Complex 04/01/2016 Patient Education: Patient Medication Summary Completed 04/01/2016 Patient Education: Obesity Completed 04/01/2016 Appointment: Lynn Arenas WPtel: [address] [place], [place] [phone] (30 min) Complex 03/29/2016 Visit Plan: Hypertension - well con trolled - continue with current medications, continue with no added salt diet. Pt has been encouraged to exercise daily. The pt has been advised to call the office if there are any acute concerns about change in blood pressure readings at home. Hypothyroidism- abnormal weight gain-check labs today - pt with chronic hypothyroidism, continue with current medication, will monitor pt to signs or symptoms of lack of adequate supplementation. Pt is to continue with current dose of medication unless directed otherwise. Check labs at regular intervals wither q 3 months or q 6 months based on previous levels of control. Low back pain-refill tramadol Vzyrj-vlruvaxjdu-aihbrnkz resolved 01/26/2016 Appointment: Lynn Arenas WPtel: [phone] [phone] (30 min) Complex 01/26/2016 Patient Education: Patient Medication Summary Completed 01/26/2016 Patient Education: Obesity Completed 01/26/2016 Care Plan: BMI Above normal followup RADHA F-MGMT EDUC & TRAIN 1 PT Pending 01/26/2016 Care Plan: Referral Order SNOMED-CT : [id number] Pending 01/07/2016 Appointment: Lynn Arenas WPtel: [phone] [phone] (15 min) Moderate 12/24/2015 Visit Plan: Hypertension - well con trolled - continue with current medications, continue with no added salt diet. Pt has been encouraged to exercise daily. The pt has been advised to call the office if there are any acute concerns about change in blood pressure readings at home. Abscess/Cellulitis - The patient was instructed in appropriate wound care. The patient was instructed to use the antibiotic ointment as per RX. The patient is to call for any change in symptoms, increase in size of the lesion, increase in pain. Pt states that she also occasionally gets sores on her labias, requests a referral to Dr. Daugherty. Will refer pt. 12/21/2015 Patient Education: Patient Medication Summary Completed 12/21/2015 Care Plan: Miracle LORENZO RTS Pending 12/21/2015 Visit Plan: cellulitis/abscess of g roin-use bactroban ointment as needed -keep groin clean and dry-treat nares with bactroban ointment twice daily-call for acute s/s of infection Hypothyroidism-check dose at home-s hould be 175mcg daily and repeat labs in 3 months 10/12/2015 Patient Education: Patient Medication Summary Completed 10/12/2015 Appointment: (30 min) Complex 10/09/2015 Visit Plan: Hypertension - well con trolled - continue with current medications, continue with no added salt diet. Pt has been encouraged to exercise daily. The pt has been advised to call the office if there are any acute concerns about change in blood pressure readings at home. Hypothyroidism - pt with chronic hypothyroidism, continue with current medication, will monitor pt to signs or symptoms of lack of adequate supplementation. Pt is to continue with current dose of medication unless directed otherwise. Check labs at regular intervals wither q 3 months or q 6 months based on previous levels of control. Ksenia llergies - chronic - recommended pt to use allergy medication as prescribed. Pt has been counseled as to the appropriate use of the medication. Pt to call if allergy symptoms are not controlled with the medication. If using nasal spray, instructions as follows: Nasal spray- use twice daily, one spray per nostril twice daily, after 30 minutes, rinse out nose with saline spray.. Use opposite hand per nostril to spray in the nasal steroid allergy spray. Coricidin HBP 08/24/2015 Appointment: (30 min) Complex 08/24/2015 Patient Education: Patient Medication Summary Completed 08/24/2015 Patient Education: Hypertension Completed 08/24/2015 Appointment: (10 min) Simple 07/08/2015 Visit Plan: Skin infection - recomm ended treatment with oral antibiotic and topical antibiotic. Pt to call if nor improving. 06/01/2015 Appointment: Damari Finn WPtel: [address] [place], [place] [id number] (15 min) Moderate 06/01/2015 Patient Education: Patient Medication Summary Completed 06/01/2015 Visit Plan: Hypertension - well con trolled - continue with current medications, continue with no added salt diet. Pt has been encouraged to exercise daily. The pt has been advised to call the office if there are any acute concerns about change in blood pressure readings at home. Hypothyroidism - pt with chronic hypothyroidism, continue with current medication, will monitor pt to signs or symptoms of lack of adequate supplementation. Pt is to continue with current dose of medication unless directed otherwise. Check labs at regular intervals wither q 3 months or q 6 months based on previous levels of control. 05/21/2015 Appointment: (30 min) Complex 05/21/2015 Patient Education: Patient Medication Summary Completed 05/21/2015 Patient Education: Hypertension Completed 05/21/2015 Appointment: (30 min) Complex 05/12/2015 Patient Education: Patient Medication Summary Completed 05/08/2015 Visit Plan: Brittle fingernails-seema thema of fingernails-nail sample clipped and sent for culture-suspect changes are due to thyroid illness- repeat thyroid labs in 6-8 weeks 03/26/2015 Appointment: (15 min) Moderate 03/26/2015 Patient Education: Patient Medication Summary Completed 03/26/2015 Care Plan: C FUNGUS fingernail Pending 03/26/2015 Visit Plan: Hypothyroidism- pt with chronic hypothyroidism, After consultation with Dr. Finn, will increase Synthroid to 200 mcg per day and recheck labs in 3 months. Pt is to monitor fingernail redness. CBC, CMP checked today. 03/11/2015 Appointment: (15 min) Moderate 03/11/2015 Patient Education: Patient Medication Summary Completed 03/11/2015 Visit Plan: Hypertension - well con trolled - continue with current medications, continue with no added salt diet. Pt has been encouraged to exercise daily. The pt has been advised to call the office if there are any acute concerns about change in blood pressure readings at home. Hypothyroidism - pt with chronic hypothyroidism, continue with current medication, will monitor pt to signs or symptoms of lack of adequate supplementation. Pt is to continue with current dose of medication unless directed otherwise. Check labs at regular intervals wither q 3 months or q 6 months based on previous levels of control. C hronic back pain - refill tramadol 12/11/2014 Appointment: Damari Finn WPtel: [facility] [address] follow up 12/11/2014 Patient Education: Patient Medication Summary Completed 12/11/2014 Patient Education: Hypertension Completed 12/11/2014 Appointment: Damari Finn WPtel: [facility] [address] follow up 11/27/2014 Visit Plan: Hidradenitis Suppurativ a - pt with outbreak on bottom - almost healed, needs a little more antibiotic to heal. Once healed, pt has a PRN antibiotic available to use should she start with another acute o utbreak that is not responding to appropriate antibacterial body wash and stringent use. Hypothyroidism - pt with chronic hypothyroidism, continue with current medication, will monitor pt to signs or symptoms of lack of adequate supplementation. Pt is to continue with current dose of medication unless directed otherwise. Check labs at regular intervals wither q 3 months or q 6 months based on previous levels of control. Medication adjusted in the last few days. Hypertension - well controlled - continue with current medications, continue with no added salt diet. Pt has been encouraged to exercise daily. The pt has been advised to call the office if there are any acute concerns about change in blood pressure readings at home. Back pain - with L4/L5 spinal stenosis on 04/2014 MRI - need repeat MRI - pt to see back surgeon - I have advised her to get her back MRI done at [facility] in [place] as that is where her specialist will be once we get her an appt with one of the local Neurosurgeons. 09/18/2014 App[facility]ment: [phone] [facility] 09/18/2014 Patient Education: Patient Medication Summary Completed 09/18/2014 Patient Education: Hypertension Completed 09/18/2014 Visit Plan: Hypertension - well con trolled - continue with current medications, continue with no added salt diet. Pt has been encouraged to exercise daily. The pt has been advised to call the office if there are any acute concerns about change in blood pressure readings at home. Hypothyroidism - pt with chronic hypothyroidism, continue with current medication, will monitor pt to signs or symptoms of lack of adequate supplementation. Pt is to continue with current dose of medication unless directed otherwise. Check labs at regular intervals wither q 3 months or q 6 months based on previous levels of control. L ow back pain-bulging disc L4/L5-follow up with Dr Lincoln as scheduled 07/31/2014 Appointment: [phone] [place] New Patient 07/31/2014 Patient Education: Patient Medication Summary Completed 07/31/2014 Referral: Artur Daugherty she w ill be calling and making her appt Initiated Referral: Artur Daugherty Referral Initiated Instructions Comment Steroid shot today breathing treatments 3 times a day for 2 days, then twice a day for 2 days, then as needed Rinse mouth out thoroughly before and after breathing treatments and inhalers. Nystatin swish and swallow for thrush. . Allergies - chronic - recommended pt t o use allergy medication as prescribed. Pt has been counseled as to the appropriate use of the medication. Pt to call if allergy symptoms are not controlled with the medication. If using nasal spray, instructions as follows: Nasal spray- use twice daily, one spray per nostril twice daily, after 30 minutes, rinse out nose with saline spray.. Use opposite hand per nostril to spray in the nasal steroid allergy spray. Asthma - chronic problem for this patient. We have reviewed chronic treatment strategy, symptom control, and plans for acute exacerbations. No changes today to the current treatment plan as the patient is stable, monitor for acute changes Thrush - use RX as prescribed - notify clinic if symptoms do not improve, if they worsen, or with any questions or concerns. . Hypertension - wel l controlled - continue with current medications, continue with no added salt diet. Pt has been encouraged to exercise daily. The pt has been advised to call the office if there are any acute concerns about change in blood pressure readings at home. Hypothyroidism - pt with chronic hypothyroidism, continue with current medication, will monitor pt to signs or symptoms of lack of adequate supplementation. Pt is to continue with current dose of medication unless directed otherwise. Check labs at regular intervals wither q 3 months or q 6 months based on previous levels of control. Low back pain- the patient was instructed in appropriate posture, need for weight loss to alleviate abdominal obesity that is worsening the patient's back pain.. The pt is to use prn antiinflammatories to manage acute pain. The patient is to call the office if the pain is worsening or does not improve. . Hypothyroidism - p t with chronic hypothyroidism, continue with current medication, will monitor pt to signs or symptoms of lack of adequate supplementation. Pt is to continue with current dose of medication unless directed otherwise. Check labs at regular intervals q 3 months or q 6 months based on previous levels of control. Asthma - chronic problem for this patient. We have reviewed chronic treatment strategy, symptom control, and plans for acute exacerbations. No changes today to the current treatment plan as the patient is stable, monitor for acute changes Diarrhea -start probiotics -call if does not resolve or if any worse . Wound Instructions - Pt was instructed to keep the wound clean, wash with antibacterial soap, use triple antibiotic ointment, call if redness, pustular drainage, or any other acute concerns. . Sinusitis - Pt has acute infection - pain in face, maxillary region, Pt informed to use decongestant, RX given to patient, sinus rinses also recommended. Call if symptoms do not show improvement. Dermatitis around lips - will send RX - pt is to notify clinic if symptoms do not improve, or with any concerns. Declined Procedure: (85773) FLU VAC NO PRSV 4 JUSTYNA 3 YRS+; Declined Reason: refused Physical therapy at [facility] . Hypertension - well controlled - oleg nue with current medications, continue with no added salt diet. Pt has been encouraged to exercise daily. The pt has been advised to call the office if there are any acute concerns about change in blood pressure readings at home. Hypothyroidism - pt with chronic hypothyroidism, continue with current medication, will monitor pt to signs or symptoms of lack of adequate supplementation. Pt is to continue with current dose of medication unless directed otherwise. Check labs at regular intervals wither q 3 months or q 6 months based on previous levels of control. Low back pain-bulging disc L4/L5-follow up with Dr Lincoln as scheduled . Cellulitis - oleg nue with oral antibiotics as previously directed, return to clinic as previously directed, call for acute change in symptoms, worsening redness, warmth, discharge. . Skin infection - r ecommended treatment with oral antibiotic and topical antibiotic. Pt to call if nor improving. CHECK LABS AND UA APPOINTMENT WITH DR WAGNER FOR SKIN CHECK . Hypothyroidism -patient is having symp toms of over supplementation -check labs today Skin changes-patient used to see Dr Solitario but hasn't see anyone recently - recommend skin check with Dr Wagner Asthma- stable- no change in current treatment . Asthma - chronic p roblem for this patient. We have reviewed chronic treatment strategy, symptom control, and plans for acute exacerbations. No changes today to the current treatment plan as the patient is stable, monitor for acute changes Hypothyroidism - pt with chronic hypothyroidism, continue with current medication, will monitor pt to signs or symptoms of lack of adequate supplementation. Pt is to continue with current dose of medication unless directed otherwise. Check labs at regular intervals q 3 months or q 6 months based on previous levels of control. Chronic Back pain - the patient was counseled to always first attempt to use modalities other than pain medication for alleviation of the muscle spasms and pain. The patient was also encouraged to continue with back exercises as previously directed. Pt is to use pain medication as directed. If pain medications are used inappropriately or early refills are requested, the patient understands that is a breech of trust/contract and could result in the patient's termination from this medical practice. Start zyrtec - one d aily Steroid shot today in office Mucinex as needed for congestion cough syrup Let me know if it is not improving. . Asthma Exacerbation - Asthma is a chronic manager jamee problem for this patient, however, the pt is experiencing an acute exacerbation of the chronic Asthma symptoms. Pt is to receive appropriate treatment as an out patient, but the pt is aware that if symptoms worsen or do not improve, to call [facility] for instructions, or go to the EMERGENCY ROOM if the symptoms are beyond acute control with rescue medications. We have reviewed chronic treatment strategy, symptom control, and plans for acute exacerbations. No changes today to the current treatment plan as the patient is stable, monitor for acute changes. Start zyrtec - one d aily Steroid shot today in office Mucinex as needed for congestion cough syrup Let me know if it is not improving. . Asthma Exacerbation - Asthma is a chronic manager jamee problem for this patient, however, the pt is experiencing an acute exacerbation of the chronic Asthma symptoms. Pt is to receive appropriate treatment as an out patient, but the pt is aware that if symptoms worsen or do not improve, to call [facility] for instructions, or go to the EMERGENCY ROOM if the symptoms are beyond acute control with rescue medications. We have reviewed chronic treatment strategy, symptom control, and plans for acute exacerbations. No changes today to the current treatment plan as the patient is stable, monitor for acute changes. Breathing treatments as directed for dyspnea/persistent wheezing/asthma symptoms. . Hypertension - wel l controlled - continue with current medications, continue with no added salt diet. Pt has been encouraged to exercise daily. The pt has been advised to call the office if there are any acute concerns about change in blood pressure readings at home. Hypothyroidism - pt with chronic hypothyroidism, continue with current medication, will monitor pt to signs or symptoms of lack of adequate supplementation. Pt is to continue with current dose of medication unless directed otherwise. Check labs at regular intervals wither q 3 months or q 6 months based on previous levels of control. Chronic back pain - refill tramadol . Edema - Right leg noticeably more edematous than the left, pt denies trauma - will order US - pt has been advised to elevate legs to prevent dependent edema, compression has been recommended to help to naturally decrease peripheral edema. Diuretic use has been discussed and pt has been instructed in appropriate use of such medication as necessary to further attempt to reduce peripheral edema. Asthma - chronic problem for this patient. We have reviewed chronic treatment strategy, symptom control, and plans for acute exacerbations. No changes today to the current treatment plan as the patient is stable, monitor for acute changes . Asthma Exacerbatio n - Asthma is a chronic problem for this patient, however, the pt is experiencing an acute exacerbation of the chronic Asthma symptoms. Pt is to receive appropriate treatment as an out patient, but the pt is aware that if symptoms worsen or do not improve, to call [facility] for instructions, or go to the EMERGENCY ROOM if the symptoms are beyond acute control with rescue medications. We have reviewed chronic treatment strategy, symptom control, and plans for acute exacerbations. No changes today to the current treatment plan as the patient is stable, monitor for acute changes. will extend your pre dnisone. Increase the iron in your diet, you can also get vitamin B12 over the counter to see if it helps with your energy levels. . Asthma Exacerbation - Asthma is a chronic problem for this patient, however, the pt is experiencing an acute exacerbation of the chronic Asthma symptoms. Pt is to receive appropriate treatment as an out patient, but the pt is aware that if symptoms worsen or do not improve, to call [facility] for instructions, or go to the EMERGENCY ROOM if the symptoms are beyond acute control with rescue medications. We have reviewed chronic treatment strategy, symptom control, and plans for acute exacerbations. No changes today to the current treatment plan as the patient is stable, monitor for acute changes. . Hypertension - wel l controlled - continue with current medications, continue with no added salt diet. Pt has been encouraged to exercise daily. The pt has been advised to call the office if there are any acute concerns about change in blood pressure readings at home. Hypothyroidism - pt with chronic hypothyroidism, continue with current medication, will monitor pt to signs or symptoms of lack of adequate supplementation. Pt is to continue with current dose of medication unless directed otherwise. Check labs at regular intervals wither q 3 months or q 6 months based on previous levels of control. Check thyroid on Feb. Will refill blood pressure, tramadol, bactrim and bactroban ointment. Will send this culture to lab, it can take several days for results to come back. . Hypertension - well controlled - oleg nue with current medications, continue with no added salt diet. Pt has been encouraged to exercise daily. The pt has been advised to call the office if there are any acute concerns about change in blood pressure readings at home. Abscess/Cellulitis - The patient was instructed in appropriate wound care. The patient was instructed to use the antibiotic ointment as per RX. The patient is to call for any change in symptoms, increase in size of the lesion, increase in pain. Pt states that she also occasionally gets sores on her labias, requests a referral to Dr. Daugherty. Will refer pt. . Sinusitis - Pt has acute infection - pain in face, maxillary region, Pt informed to use decongestant, RX given to patient, sinus rinses also recommended. Call if symptoms do not show improvement. Allergies - chronic - recommended pt to use allergy medication as prescribed. Pt has been counseled as to the appropriate use of the medication. Pt to call if allergy symptoms are not controlled with the medication. If using nasal spray, instructions as follows: Nasal spray- use twice daily, one spray per nostril twice daily, after 30 minutes, rinse out nose with saline spray.. Use opposite hand per nostril to spray in the nasal steroid allergy spray. Cold sore, canker sore - will send RX - pt is to notify clinic if symptoms do not improve, if they worsen, or with any changes, questions, or concerns. claritin or zyrtec . Sinusitis - Pt has acute infection - pain in face, maxillary region, Pt informed to use decongestant, RX given to patient, sinus rinses also recommended. Recommend take start on probiotic while on antibiotics. Call if symptoms do not show improvement. Conjunctivitis - rx for eye drops/lube sent electronically to the patient's pharmacy. The patient has been instructed to cleanse affected eye with warm washcloth, then place medication into affected eye four times daily. claritin or zyrtec . Sinusitis - Pt has acute infection - pain in face, maxillary region, Pt informed to use decongestant, RX given to patient, sinus rinses also recommended. Recommend take start on probiotic while on antibiotics. Call if symptoms do not show improvement. Conjunctivitis - rx for eye drops/lube sent electronically to the patient's pharmacy. The patient has been instructed to cleanse affected eye with warm washcloth, then place medication into affected eye four times daily. KENALOG INJECTION TO DAY CALL IF YOU NEED AN ANTIBIOTIC CHECK THYROID LABS GET LABS FROM URGENT CARE DRAWN ON MONDAY . Asthma Exacerbation - Asthma is a chronic manager jamee problem for this patient, however, the pt is experiencing an acute exacerbation of the chronic Asthma symptoms. Pt is to receive appropriate treatment as an out patient, but the pt is aware that if symptoms worsen or do not improve, to call [facility] for instructions, or go to the EMERGENCY ROOM if the symptoms are beyond acute control with rescue medications. We have reviewed chronic treatment strategy, symptom control, and plans for acute exacerbations. No changes today to the current treatment plan as the patient is stable, monitor for acute changes. Kenalog injection today in the office Bruise-get labs from urgent care Hypothyroidism - pt with chronic hypothyroidism, continue with current medication, will monitor pt to signs or symptoms of lack of adequate supplementation. Pt is to continue with current dose of medication unless directed otherwise. Check labs at regular intervals wither q 3 months or q 6 months based on previous levels of control. Low back dxlh-acbwezs-copxdg tramadol for prn use . Brittle fingernail s-erythema of fingernails-nail sample clipped and sent for culture-suspect changes are due to thyroid illness-repeat thyroid labs in 6-8 weeks . Hypertension - wel l controlled - continue with current medications, continue with no added salt diet. Pt has been encouraged to exercise daily. The pt has been advised to call the office if there are any acute concerns about change in blood pressure readings at home. discussed labs - no change in medications. Back pain - prn tylenol tramadol-[facility] . Hypertension - well controlled - oleg nue with current medications, continue with no added salt diet. Pt has been encouraged to exercise daily. The pt has been advised to call the office if there are any acute concerns about change in blood pressure readings at home. Hypothyroidism-abnormal weight gain-check labs today - pt with chronic hypothyroidism, continue with current medication, will monitor pt to signs or symptoms of lack of adequate supplementation. Pt is to continue with current dose of medication unless directed otherwise. Check labs at regular intervals wither q 3 months or q 6 months based on previous levels of control. Low back pain-refill tramadol Vxshy-jhiiulvclk-emaiyhjt resolved bactroban ointment t o sore twice daily x 10 days also use the bactoban ointment to nares twice daily x 5 days . cellulitis/abscess of groin-use bactro ban ointment as needed -keep groin clean and dry-treat nares with bactroban ointment twice daily-call for acute s/s of infection Hypothyroidism-check dose at home-should be 175mcg daily and repeat labs in 3 months . Edema - pt has bee n advised to elevate legs to prevent dependent edema, compression has been recommended to help to naturally decrease peripheral edema. Diuretic use has been discussed and pt has been instructed in appropriate use of such medication as necessary to further attempt to reduce peripheral edema. . Edema - pt has bee n advised to elevate legs to prevent dependent edema, compression has been recommended to help to naturally decrease peripheral edema. Diuretic use has been discussed and pt has been instructed in appropriate use of such medication as necessary to further attempt to reduce peripheral edema. . Edema - pt has bee n advised to elevate legs to prevent dependent edema, compression has been recommended to help to naturally decrease peripheral edema. Diuretic use has been discussed and pt has been instructed in appropriate use of such medication as necessary to further attempt to reduce peripheral edema. . Low back pain, lef t hip pain, left buttock pain - the patient was instructed in appropriate posture, need for weight loss to alleviate abdominal obesity that is worsening the patient's back pain.. The pt is to use prn antiinflammatories to manage acute pain. The patient is to call the office if the pain is worsening or does not improve. restart lisinopril/h CTZ - this will help your blood pressure and your swelling restart your cetirizine daily x 1 week, then as needed for allergies will check for anemia and thyroid. . Hypertension - uncontrolled - the jalen ent's medications have been modified as documented in the visit note. The patient has been counseled to cut back on salt in diet for a no added salt diet, low fat diet, start an exercise program with low weight bearing exercises and higher aerobic activity for heart health. The patient is to check blood pressure readings as an outpatient and either fax, call, or email the readings to the office next week for practitioner to review. The pt is to call for acute concerns. Edema - pt has been advised to elevate legs to prevent dependent edema, compression has been recommended to help to naturally decrease peripheral edema. Diuretic use has been discussed and pt has been instructed in appropriate use of such medication as necessary to further attempt to reduce peripheral edema. Hypothyroidism - pt with chronic hypothyroidism, continue with current medication, will monitor pt to signs or symptoms of lack of adequate supplementation. Pt is to continue with current dose of medication unless directed otherwise. Check labs at regular intervals wither q 3 months or q 6 months based on previous levels of control. Anemia - will continue to monitor. restart lisinopril/h CTZ - this will help your blood pressure and your swelling restart your cetirizine daily x 1 week, then as needed for allergies will check for anemia and thyroid. . Hypertension - uncontrolled - the jalen ent's medications have been modified as documented in the visit note. The patient has been counseled to cut back on salt in diet for a no added salt diet, low fat diet, start an exercise program with low weight bearing exercises and higher aerobic activity for heart health. The patient is to check blood pressure readings as an outpatient and either fax, call, or email the readings to the office next week for practitioner to review. The pt is to call for acute concerns. Edema - pt has been advised to elevate legs to prevent dependent edema, compression has been recommended to help to naturally decrease peripheral edema. Diuretic use has been discussed and pt has been instructed in appropriate use of such medication as necessary to further attempt to reduce peripheral edema. Hypothyroidism - pt with chronic hypothyroidism, continue with current medication, will monitor pt to signs or symptoms of lack of adequate supplementation. Pt is to continue with current dose of medication unless directed otherwise. Check labs at regular intervals wither q 3 months or q 6 months based on previous levels of control. Anemia - will continue to monitor. . Sinusitis - Pt has acute infection - pain in face, maxillary region, Pt informed to use decongestant, RX given to patient, sinus rinses also recommended. Call if symptoms do not show improvement. Allergies - chronic - recommended pt to use allergy medication as prescribed. Pt has been counseled as to the appropriate use of the medication. Pt to call if allergy symptoms are not controlled with the medication. If using nasal spray, instructions as follows: Nasal spray- use twice daily, one spray per nostril twice daily, after 30 minutes, rinse out nose with saline spray.. Use opposite hand per nostril to spray in the nasal steroid allergy spray. Asthma Exacerbation - Asthma is a chronic problem for this patient, however, the pt is experiencing an acute exacerbation of the chronic Asthma symptoms. Pt is to receive appropriate treatment as an out patient, but the pt is aware that if symptoms worsen or do not improve, to call [facility] for instructions, or go to the EMERGENCY ROOM if the symptoms are beyond acute control with rescue medications. We have reviewed chronic treatment strategy, symptom control, and plans for acute exacerbations. No changes today to the current treatment plan as the patient is stable, monitor for acute changes. . Bronchitis - acute case of bronchitis identified. Pt has been given antibiotics, pt has been instructed to call if symptoms are not improved, or if symptoms acutely worsen. Asthma Exacerbation - Asthma is a chronic problem for this patient, however, the pt is experiencing an acute exacerbation of the chronic Asthma symptoms. Pt is to receive appropriate treatment as an out patient, but the pt is aware that if symptoms worsen or do not improve, to call [facility] for instructions, or go to the EMERGENCY ROOM if the symptoms are beyond acute control with rescue medications. We have reviewed chronic treatment strategy, symptom control, and plans for acute exacerbations. No changes today to the current treatment plan as the patient is stable, monitor for acute changes. prednisone taper - i f no better will send permetherin cream and an antibiotic take tylenol as needed for breakthrough pain . Rash - The patient was instructed in appropriate wound care. The patient was instructed to use the medication as per RX. The patient is to call for any change in symptoms, increase in size of the lesion, increase in pain, worsening redness, warmth, discharge. Left knee pain - pt is to use RICE - rest, ice, compression, elevation - pt is to notify clinic if symptoms do not improve, if they worsen, or with any changes, questions, or concerns. I will call your tra catracho to [facility] diflucan 150mg daily x 7 days for vaginal yeast infection . Hypertension - well controlled - oleg nue with current medications, continue with no added salt diet. Pt has been encouraged to exercise daily. The pt has been advised to call the office if there are any acute concerns about change in blood pressure readings at home. Hypothyroidism - pt with chronic hypothyroidism, continue with current medication, will monitor pt to signs or symptoms of lack of adequate supplementation. Pt is to continue with current dose of medication unless directed otherwise. Check labs at regular intervals wither q 3 months or q 6 months based on previous levels of control. Chronic Pain Syndrome - pt has chronic pain - has been maintained on current medications, has not sought out other medications, only uses PRN pain medications as directed, and understands the consequences of over-medication. Yeast infection-RX for diflucan . Tinea of the scalp - will send RX - pt is to notify clinic if symptoms do not improve, if they worsen, or with any questions or concerns. Hypothyroidism - Continue with current dose of levothyroxine and not decrease the dose, due to pt being symptomatic (fatigue, weight gain, etc.) Repeat TSH and Free T4 in 3 months. Pt with chronic hypothyroidism, continue with current medication, will monitor pt to signs or symptoms of lack of adequate supplementation. Pt is to continue with current dose of medication unless directed otherwise. Check labs at regular intervals wither q 3 months or q 6 months based on previous levels of control. hidradenitis suppura tiva USE ANTIBACTERIAL SOAP ASTRINGENT TONER (AN ACNE TONER - LIKE CLEARASIL) . Hidradenitis Suppurativa - pt with out break on bottom - almost healed, needs a little more antibiotic to heal. Once healed, pt has a PRN antibiotic available to use should she start with another acute outbreak that is not responding to appropriate antibacterial body wash and stringent use. Hypothyroidism - pt with chronic hypothyroidism, continue with current medication, will monitor pt to signs or symptoms of lack of adequate supplementation. Pt is to continue with current dose of medication unless directed otherwise. Check labs at regular intervals wither q 3 months or q 6 months based on previous levels of control. Medication adjusted in the last few days. Hypertension - well controlled - continue with current medications, continue with no added salt diet. Pt has been encouraged to exercise daily. The pt has been advised to call the office if there are any acute concerns about change in blood pressure readings at home. Back pain - with L4/L5 spinal stenosis on 04/2014 MRI - need repeat MRI - pt to see back surgeon - I have advised her to get her back MRI done at [facility] in [place] as that is where her specialist will be once we get her an appt with one of the local Neurosurgeons. increase synthroid t o 200 mcg . Hypothyroidism- pt with chronic hypoth yroidism, After consultation with Dr. Finn, will increase Synthroid to 200 mcg per day and recheck labs in 3 months. Pt is to monitor fingernail redness. CBC, CMP checked today. INCREASE LEVOTHYROXI NE TO 137MCG DAILY REPEAT TSH, FREE T4 IN 3 MONTHS OKAY TO STAY OFF LISINOPRIL MONITOR BLOOD PRESSURE AND PULSE -CALL IF CONSISTENTLY 140S/90 OR HIGHER REFER FOR PT FOR LOW BACK PAIN -VIA [facility] . Hypertension - well controlled - okay to start off lisinopril/hctz for now, continue with no added salt diet. Pt has been encouraged to exercise daily. The pt has been advised to call the office if there are any acute concerns about change in blood pressure readings at home. Hypothyroidism-inrease dose to 137mcg daily-repeat labs in 3 months Chronic back pain -refer for PT to evaluate and treat as indicated . Hypertension - wel l controlled - continue with current medications, continue with no added salt diet. Pt has been encouraged to exercise daily. The pt has been advised to call the office if there are any acute concerns about change in blood pressure readings at home. Hypothyroidism - pt with chronic hypothyroidism, continue with current medication, will monitor pt to signs or symptoms of lack of adequate supplementation. Pt is to continue with current dose of medication unless directed otherwise. Check labs at regular intervals wither q 3 months or q 6 months based on previous levels of control. Low back pain- the patient was instructed in appropriate posture, need for weight loss to alleviate abdominal obesity that is worsening the patient's back pain.. The pt is to use prn antiinflammatories to manage acute pain. The patient is to call the office if the pain is worsening or does not improve. Symbicort twice sim y Neosporin twice daily -return if lesion does not resolve and i will freeze it again . Asthma - chronic problem for this jalen ent. We have reviewed chronic treatment strategy, symptom control, and plans for acute exacerbations. 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 . Hypertension - wel l controlled - continue with current medications, continue with no added salt diet. Pt has been encouraged to exercise daily. The pt has been advised to call the office if there are any acute concerns about change in blood pressure readings at home. Hypothyroidism - pt with chronic hypothyroidism, continue with current medication, will monitor pt to signs or symptoms of lack of adequate supplementation. Pt is to continue with current dose of medication unless directed otherwise. Check labs at regular intervals wither q 3 months or q 6 months based on previous levels of control. Rahs - rx for fluconazole CORICIDIN HBP . Hypertension - well controlled - oleg nue with current medications, continue with no added salt diet. Pt has been encouraged to exercise daily. The pt has been advised to call the office if there are any acute concerns about change in blood pressure readings at home. Hypothyroidism - pt with chronic hypothyroidism, continue with current medication, will monitor pt to signs or symptoms of lack of adequate supplementation. Pt is to continue with current dose of medication unless directed otherwise. Check labs at regular intervals wither q 3 months or q 6 months based on previous levels of control. Allergies - chronic - recommended pt to use allergy medication as prescribed. Pt has been counseled as to the appropriate use of the medication. Pt to call if allergy symptoms are not controlled with the medication. If using nasal spray, instructions as follows: Nasal spray- use twice daily, one spray per nostril twice daily, after 30 minutes, rinse out nose with saline spray.. Use opposite hand per nostril to spray in the nasal steroid allergy spray. Coricidin HBP
--- OUTSIDE RECORDS SUMMARY | 2020-02-20 18:31 | XMS REPORT | CCD ---
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 Unknown Has never used illegal drugs 014 Allergies, Adverse Reactions, Alerts Substance Reaction Codes Entered Date Inactivated Date Status * NO KNOWN FOOD BEVERLY RGIES Unknown 07/31/2014 No Inactive Date Active bactrim hives, rash RxNorm: 749195 04/05/2016 No Inactive Date Active Past Medical [...] Fill Instructions lorazepam 1 mg tablet RxNorm: 580109 Tablet(s) TAKE TWO TABLETS BY MOUTH AT B EDTIME NEEDED FOR INSOMNIA AND ONE TABLET DAILY NEEDED ANXIETY 05/07/2019 07/05/2019 Active valacyclovir 1 gram tablet RxNorm: 402408 1 Tablet(s) PO TID 05/07/2019 05/13/2019 Inactive Keflex 500 mg capsule RxNorm: 326521 1 Capsule(s) PO TID 05/07/2019 05/13/2019 Inactive tramadol 50 mg tablet RxNorm: 990828 1 Tablet(s) PO Q4 PRN as needed for pain 05/06/2019 06/14/2019 Ac tive tramadol 50 mg tablet RxNorm: 201784 TAKE ONE TABLET BY MOUTH EVERY 6 HOURS A S NEEDED FOR PAIN 05/06/2019 06/04/2019 Active prednisone 20 mg tablet RxNorm: 025557 1 Tablet(s) PO BID x 2 days, then 1 pill daily x 3 days, then 1/2 pill every other day x 3 doses. 04/29/2019 No Stop Date Active tramadol 50 mg tablet RxNorm: 076831 1 Tablet(s) PO Q6 PRN as needed for pain 04/09/2019 05/06/2019 In active levothyroxine 125 mc g tablet RxNorm: 779046 1 Tablet(s) PO daily TAKE ONE TABLET BY MOUTH DAILY ON AN EMPTY STOMACH 03/25/2019 06/16/2020 Active lorazepam 1 mg tablet RxNorm: 886342 Tablet(s) TAKE TWO TABLETS BY MOUTH AT B EDTIME NEEDED FOR INSOMNIA AND ONE TABLET DAILY NEEDED ANXIETY 03/15/2019 05/06/2019 Inactive tramadol 50 mg tablet RxNorm: 960213 1 Tablet(s) PO Q4 PRN as needed for pain 03/15/2019 04/08/2019 In active tramadol 50 mg tablet RxNorm: 506381 1 Tablet(s) PO Q4 PRN as needed for pain 02/20/2019 03/14/2019 In active lorazepam 1 mg tablet RxNorm: 104572 Tablet(s) TAKE TWO TABLETS BY MOUTH AT B EDTIME NEEDED FOR INSOMNIA AND ONE TABLET DAILY NEEDED ANXIETY 01/04/2019 03/03/2019 Inactive Keflex 500 mg capsule RxNorm: 971053 1 Capsule(s) PO TID 12/05/2018 12/11/2018 Inactive tramadol 50 mg tablet RxNorm: 136608 1 Tablet(s) PO Q4 PRN as needed for pain 12/05/2018 01/12/2019 In active ciprofloxacin 0.3 % eye drops RxNorm: 496844 INSTILL TWO DROPS TO THE AFFECTED EYE(S) THREE TIMES A DAY 11/23/2018 12/25/2018 Inactive ProAir HFA 90 mcg/ac tuation aerosol inhaler RxNorm: 6484379 1-2 Puff(s) INH Q4 P RN INHALE 1 TO 2 PUFFS FOUR TIMES A DAY NEEDED FOR ASTHMA 10/30/2018 01/27/2019 Inactive levothyroxine 137 mc g tablet RxNorm: 299358 1 Tablet(s) PO daily TAKE ONE TABLET BY MOUTH DAILY ON AN EMPTY STOMACH 10/30/2018 03/24/2019 Inactive tramadol 50 mg tablet RxNorm: 200498 1 Tablet(s) PO Q4 PRN as needed for pain 10/29/2018 12/04/2018 In active levothyroxine 125 mc g tablet RxNorm: 941584 1 Tablet(s) PO daily TAKE ONE TABLET BY MOUTH DAILY ON AN EMPTY STOMACH 09/06/2018 10/29/2018 Inactive lorazepam 1 mg tablet RxNorm: 930911 Tablet(s) TAKE TWO TABLETS BY MOUTH AT B EDTIME NEEDED FOR INSOMNIA AND ONE TABLET DAILY NEEDED ANXIETY 09/06/2018 11/02/2018 Inactive tramadol 50 mg tablet RxNorm: 933913 1 Tablet(s) PO Q4 PRN as needed for pain 09/06/2018 10/15/2018 In active tramadol 50 mg tablet RxNorm: 448953 1 Tablet(s) PO Q4 PRN as needed for pain 07/06/2018 08/14/2018 In active ciprofloxacin 0.3 % eye drops RxNorm: 653854 2 Drop(s) ophthalmic (eye) TID 06/28/2018 07/07/2018 In active lorazepam 1 mg tablet RxNorm: 142729 Tablet(s) TAKE TWO TABLETS BY MOUTH AT B EDTIME NEEDED FOR INSOMNIA AND ONE TABLET DAILY NEEDED ANXIETY 06/28/2018 08/26/2018 Inactive doxycycline hyclate 100 mg tablet RxNorm: 5712424 1 Tablet(s) PO BID 06/28/2018 07/04/2018 Inactive tramadol 50 mg tablet RxNorm: 903207 1 Tablet(s) PO Q4 PRN as needed for pain 06/13/2018 07/05/2018 In active lorazepam 1 mg tablet RxNorm: 208637 Tablet(s) TAKE TWO TABLETS BY MOUTH AT B EDTIME NEEDED FOR INSOMNIA AND ONE TABLET DAILY NEEDED ANXIETY 05/23/2018 06/27/2018 Inactive tramadol 50 mg tablet RxNorm: 979580 1 Tablet(s) PO Q4 PRN as needed for pain 05/23/2018 06/12/2018 In active levothyroxine 125 mc g tablet RxNorm: 524441 Tablet(s) TAKE ONE TA BLET BY MOUTH DAILY ON AN EMPTY STOMACH 05/23/2018 09/05/2018 Inactive tramadol 50 mg tablet RxNorm: 908757 1 Tablet(s) PO Q4 PRN as needed for pain 05/17/2018 05/22/2018 In active levothyroxine 125 mc g tablet RxNorm: 751596 TAKE ONE TABLET BY MO UTH DAILY 05/15/2018 06/27/2018 In active levothyroxine 125 mc g tablet RxNorm: 207171 TAKE ONE TABLET BY MO UTH DAILY 05/15/2018 06/27/2018 In active tramadol 50 mg tablet RxNorm: 704870 1 Tablet(s) PO Q4 PRN as needed for pain 04/30/2018 05/16/2018 In active Advair Diskus 100 mc g-50 mcg/dose powder for inhalation RxNorm: 8982248 1 Puff(s) INH BID 04/06/2018 01/21/2019 Inactive Symbicort 80 mcg-4.5 mcg/actuation HFA aerosol inhaler RxNorm: 2105123 2 Puff(s) INH BID 04/06/2018 01/21/2019 Inactive Advair Diskus 250 mc g-50 mcg/dose powder for inhalation RxNorm: 4784045 1 Puff(s) INH BID 04/05/2018 09/01/2018 Inactive Zyrtec 10 mg tablet RxNorm: 6725104 1 Tablet(s) PO daily x1 week then PRN 04/05/2018 08/02/2018 In active lisinopril 20 mg-hyd rochlorothiazide 25 mg tablet RxNorm: 418445 Tablet(s) TAKE ONE TABLET BY MOUTH DAILY 04/05/2018 10/29/2018 Inactive Zyrtec 10 mg tablet RxNorm: 7497022 1 Tablet(s) PO daily 04/04/2018 05/03/2018 Inactive tramadol 50 mg tablet RxNorm: 628575 1 Tablet(s) PO Q4 PRN as needed for pain 03/13/2018 04/21/2018 In active lorazepam 1 mg tablet RxNorm: 596404 Tablet(s) TAKE TWO TABLETS BY MOUTH AT B EDTIME NEEDED FOR INSOMNIA AND ONE TABLET DAILY NEEDED ANXIETY 03/02/2018 04/30/2018 Inactive levothyroxine 125 mc g tablet RxNorm: 436553 1 Tablet(s) PO daily 02/06/2018 05/06/2018 Inactive levothyroxine 125 mc g tablet RxNorm: 019936 TAKE ONE TABLET BY [facility] DAILY ON AN EMPTY STOMACH 02/06/2018 05/22/2018 Inactive tramadol 50 mg tablet RxNorm: 400578 1 Tablet(s) PO Q4 PRN as needed for pain 01/26/2018 03/06/2018 In active lorazepam 1 mg tablet RxNorm: 067619 Tablet(s) TAKE TWO TABLETS BY MOUTH AT B EDTIME NEEDED FOR INSOMNIA AND ONE TABLET DAILY NEEDED ANXIETY 01/23/2018 06/27/2018 Inactive Symbicort 80 mcg-4.5 mcg/actuation HFA aerosol inhaler RxNorm: 6343214 INH 01/05/2018 06/27/2018 In active tramadol 50 mg tablet RxNorm: 545745 1 Tablet(s) PO Q4 PRN as needed for pain 01/04/2018 01/25/2018 In active Advair Diskus 250 mc g-50 mcg/dose powder for inhalation RxNorm: 5963499 1 Puff(s) INH BID 11/29/2017 03/28/2018 Inactive hydrochlorothiazide 12.5 mg tablet RxNorm: 987633 1 Tablet(s) PO daily 11/29/2017 12/28/2017 In active tramadol 50 mg tablet RxNorm: 680418 1 Tablet(s) PO Q4 PRN as needed for pain 11/23/2017 01/01/2018 In active tramadol 50 mg tablet RxNorm: 700865 1 Tablet(s) PO Q4 PRN as needed for pain 10/06/2017 11/14/2017 In active lorazepam 1 mg tablet RxNorm: 160751 Tablet(s) TAKE TWO TABLETS BY MOUTH AT B EDTIME NEEDED FOR INSOMNIA AND ONE TABLET DAILY NEEDED ANXIETY 09/12/2017 06/27/2018 Inactive tramadol 50 mg tablet RxNorm: 394916 1 Tablet(s) PO Q4 PRN as needed for pain 09/12/2017 10/05/2017 In active tramadol 50 mg tablet RxNorm: 667883 1 Tablet(s) PO Q4 PRN as needed for pain 08/15/2017 09/11/2017 In active tramadol 50 mg tablet RxNorm: 161909 1 Tablet(s) PO Q4 PRN as needed for pain 06/29/2017 08/07/2017 In active ProAir HFA 90 mcg/ac tuation aerosol inhaler RxNorm: 9114339 INHALE 1 TO 2 PUFFS FOUR TIMES A DAY NEEDED FOR ASTHMA 06/14/2017 11/10/2017 Inactive prednisone 20 mg tablet RxNorm: 853626 1 Tablet(s) PO BID x 2 days, then 1 pill daily x 3 days, then 1/2 pill every other day x 3 doses. 06/14/2017 09/11/2017 Inactive Kenalog 40 mg/mL madhavi pension for injection RxNorm: 7092798 1 Milliliter(s) Inj 06/14/2017 06/14/2017 In active Zyrtec 10 mg tablet RxNorm: 1477839 1 Tablet(s) PO daily 06/14/2017 07/13/2017 Inactive tramadol 50 mg tablet RxNorm: 728713 1 Tablet(s) PO Q4 PRN as needed for pain 06/08/2017 06/27/2017 In active [SAVINGS FOR UNINSURED PATIENTS -- BIN:0 58029, PCN: ASPROD1, Group: [id number], ID# [id number], Process claim through [employer], for questions: . THIS IS NOT INSURANCE.] tramadol 50 mg tablet RxNorm: 752765 1 Tablet(s) PO Q4 PRN as needed for pain 05/16/2017 06/04/2017 In active [SAVINGS FOR UNINSURED PATIENTS -- BIN:0 37627, PCN: ASPROD1, Group: [id number], ID# [id number], Process claim through [employer], for questions: . THIS IS NOT INSURANCE.] lorazepam 1 mg tablet RxNorm: 627136 Tablet(s) TAKE TWO TABLETS BY MOUTH AT B EDTIME NEEDED FOR INSOMNIA AND ONE TABLET DAILY NEEDED ANXIETY 05/16/2017 08/13/2017 Inactive Lasix 20 mg tablet RxNorm: 538650 1 Tablet(s) PO daily 05/10/2017 05/09/2017 Inactive Lasix 20 mg tablet RxNorm: 1 Tablet(s) PO daily 05/10/2017 05/12/2017 Inactive potassium chloride E R 10 mEq tablet,extended release RxNorm: 742900 1 Tablet(s) PO daily while on the lasix 05/10/2017 05/09/2017 Inactive potassium chloride E R 10 mEq tablet,extended release RxNorm: 036177 1 Tablet(s) PO daily while on the lasix 05/10/2017 05/12/2017 Inactive prednisone 20 mg tablet RxNorm: 497753 1 Tablet(s) PO BID x 2 days, then 1 pill daily x 3 days, then 1/2 pill every other day x 3 doses. 04/19/2017 06/13/2017 Inactive Zithromax Z-Linus 250 mg tablet RxNorm: 529781 1 Tablet(s) PO UD 04/13/2017 06/28/2017 Inactive prednisone 20 mg tablet RxNorm: 948149 1 Tablet(s) PO BID 04/13/2017 04/17/2017 Inactive levothyroxine 125 mc g tablet RxNorm: 742124 1 Tablet(s) PO daily 04/11/2017 10/07/2017 Inactive tramadol 50 mg tablet RxNorm: 281333 1 Tablet(s) PO Q4 PRN as needed for pain 03/27/2017 04/15/2017 In active [SAVINGS FOR UNINSURED PATIENTS -- BIN:0 47642, PCN: ASPROD1, Group: [id number], ID# [id number], Process claim through [employer], for questions: . THIS IS NOT INSURANCE.] Kenalog 40 mg/mL madhavi pension for injection RxNorm: 4483320 1 Milliliter(s) Inj 03/27/2017 03/27/2017 In active tramadol 50 mg tablet RxNorm: 120211 1 Tablet(s) PO Q4H as needed for pain 03/09/2017 03/26/2017 In active [SAVINGS FOR UNINSURED PATIENTS -- BIN:0 33668, PCN: ASPROD1, Group: [id number], ID# [id number], Process claim through [employer], for questions: . THIS IS NOT INSURANCE.] lisinopril 20 mg-hyd rochlorothiazide 25 mg tablet RxNorm: 396918 TAKE ONE TABLET BY MOUTH DAILY 01/29/2017 11/21/2017 Inactive lorazepam 1 mg tablet RxNorm: Tablet(s) TAKE TWO TABLETS BY MOUTH AT B EDTIME NEEDED FOR INSOMNIA AND ONE TABLET DAILY NEEDED ANXIETY 01/05/2017 04/04/2017 Inactive tramadol 50 mg tablet RxNorm: 689204 1 Tablet(s) PO Q4H as needed for pain 12/07/2016 01/13/2017 In active [SAVINGS FOR UNINSURED PATIENTS -- BIN:0 51367, PCN: ASPROD1, Group: [id number], ID# [id number], Process claim through [employer], for questions: . THIS IS NOT INSURANCE.] Kenalog 40 mg/mL madhavi pension for injection RxNorm: 9145168 Milliliter(s) Inj 12/07/2016 12/07/2016 In active nystatin 100,000 uni t/mL oral suspension RxNorm: 229361 4 Milliliter(s) PO QI D 12/07/2016 12/11/2016 In active Francia-D 12 Hour 60 mg-120 mg tablet,extended release RxNorm: 042921 1 Tablet(s) PO BID 12/07/2016 01/11/2017 Inactive lorazepam 1 mg tablet RxNorm: 553464 Tablet(s) TAKE TWO TABLETS BY MOUTH AT B EDTIME AND ONE TABLET DAILY NEEDED 12/07/2016 01/04/2017 Inactive (Response to an electronic controlled substance refill request - RxReferenceNumber: [id number]) albuterol sulfate 2. 5 mg/3 mL (0.083 %) solution for nebulization RxNorm: 045168 3 Milliliter(s) INH TID 11/29/2016 11/28/2016 Inactive prednisone 10 mg tablet RxNorm: 558631 Tablet(s) PO UD 11/29/2016 12/05/2016 Inactive 6,5,4,3,2,1 doxycycline hyclate 100 mg tablet RxNorm: 890293 1 Tablet(s) PO BID 11/29/2016 12/04/2016 Inactive albuterol sulfate 2. 5 mg/3 mL (0.083 %) solution for nebulization RxNorm: 986865 3 Milliliter(s) INH TID 11/29/2016 12/03/2016 Inactive Kenalog 40 mg/mL madhavi pension for injection RxNorm: 6284496 Milliliter(s) Inj 11/28/2016 11/28/2016 In active tramadol 50 mg tablet RxNorm: 193319 1 Tablet(s) PO Q4H as needed for pain 11/15/2016 12/06/2016 In active [SAVINGS FOR UNINSURED PATIENTS -- BIN:0 62705, PCN: ASPROD1, Group: [id number], ID# [id number], Process claim through [employer], for questions: . THIS IS NOT INSURANCE.] prednisone 20 mg tablet RxNorm: 532132 2 Tablet(s) PO daily 11/15/2016 11/19/2016 Inactive Advair Diskus 100 mc g-50 mcg/dose powder for inhalation RxNorm: 2414658 1 Puff(s) INH BID 11/15/2016 06/11/2017 Inactive ProAir HFA 90 mcg/ac tuation aerosol inhaler RxNorm: 215638 INHALE 1 TO 2 PUFFS F OUR TIMES A DAY NEEDED FOR ASTHMA 11/15/2016 04/13/2017 Inactive Zithromax Z-Linus 250 mg tablet RxNorm: 890764 1 Tablet(s) PO UD 11/15/2016 11/27/2016 Inactive Zyrtec 10 mg tablet RxNorm: 9527234 1 Tablet(s) PO daily 10/17/2016 11/15/2016 Inactive Keflex 500 mg capsule RxNorm: 025851 1 Capsule(s) PO TID 10/17/2016 10/23/2016 Inactive prednisone 10 mg tablet RxNorm: 349038 Tablet(s) PO UD 10/17/2016 11/28/2016 Inactive 6,5,4,3,2,1 tramadol 50 mg tablet RxNorm: 034467 1 Tablet(s) PO Q4H as needed for pain 09/28/2016 11/06/2016 In active [SAVINGS FOR UNINSURED PATIENTS -- BIN:0 41282, PCN: ASPROD1, Group: [id number], ID# [id number], Process claim through [employer], for questions: . THIS IS NOT INSURANCE.] ProAir HFA 90 mcg/ac tuation aerosol inhaler RxNorm: 478569 INHALE 1 TO 2 PUFFS F OUR TIMES A DAY NEEDED FOR ASTHMA 09/15/2016 11/14/2016 Inactive doxycycline hyclate 100 mg tablet RxNorm: 540112 1 Tablet(s) PO BID 09/15/2016 09/24/2016 Inactive doxycycline hyclate 100 mg tablet RxNorm: 616491 1 Tablet(s) PO BID 07/29/2016 08/07/2016 Inactive tramadol 50 mg tablet RxNorm: 374651 1 Tablet(s) PO Q4H as needed for pain 07/29/2016 09/06/2016 In active [SAVINGS FOR UNINSURED PATIENTS -- BIN:0 17613, PCN: ASPMINESH1, Group: [id number], ID# [id number], Process claim through [employer], for questions: . THIS IS NOT INSURANCE.] lorazepam 1 mg tablet RxNorm: 642033 Tablet(s) TAKE TWO TABLETS BY MOUTH AT B EDTIME AND ONE TABLET DAILY NEEDED 07/29/2016 10/26/2016 Inactive (Response to an electronic controlled substance refill request - RxReferenceNumber: [id number]) levothyroxine 125 mc g tablet RxNorm: 290666 1 Tablet(s) PO daily 06/29/2016 06/29/2016 Inactive levothyroxine 137 mc g tablet RxNorm: 304975 1 Tablet(s) PO daily 06/29/2016 12/25/2016 Inactive ketoconazole 2 % sha mpoo RxNorm: 038472 1 Application TOP BID 06/29/2016 07/03/2016 Inactive tramadol 50 mg tablet RxNorm: 589551 1 Tablet(s) PO Q4H as needed for pain 06/16/2016 07/25/2016 In active [SAVINGS FOR UNINSURED PATIENTS -- BIN:0 25620, PCN: ASPROD1, Group: [id number], ID# [id number], Process claim through [employer], for questions: . THIS IS NOT INSURANCE.] Bactroban 2 % topica l ointment RxNorm: 560612 APPLY TO AFFECTED ARE A(S) TWO TIMES A DAY 06/16/2016 04/16/2017 Inactive fluconazole 150 mg t ablet RxNorm: 214651 1 Tablet(s) PO daily 06/01/2016 06/05/2016 Inactive gentamicin 0.1 % top ical ointment RxNorm: 516607 1 Application TOP QID 05/12/2016 05/25/2016 In active metronidazole 500 mg tablet RxNorm: 453482 1 Tablet(s) PO TID 05/11/2016 05/24/2016 Inactive gentamicin 0.1 % top ical ointment RxNorm: 876520 1 Application TOP QID 05/11/2016 05/11/2016 In active doxycycline hyclate 100 mg tablet RxNorm: 145606 1 Tablet(s) PO BID 05/11/2016 05/24/2016 Inactive lorazepam 1 mg tablet RxNorm: 820092 Tablet(s) TAKE TWO TABLETS BY MOUTH AT B EDTIME AND ONE TABLET DAILY NEEDED 05/02/2016 07/28/2016 Inactive (Response to an electronic controlled substance refill request - RxReferenceNumber: [id number]) Diflucan 150 mg tablet RxNorm: 686755 1 Tablet(s) PO daily x5 days then 1 x we ekly x 4 weeks. 05/02/2016 04/10/2017 Inactive Diflucan 150 mg tablet RxNorm: 813560 1 Tablet(s) PO every other day 04/19/2016 04/28/2016 In active Diflucan 150 mg tablet RxNorm: 111662 1 Tablet(s) PO every other day 04/19/2016 04/18/2016 In active Diflucan 150 mg tablet RxNorm: 011374 1 Tablet(s) PO daily 04/05/2016 04/11/2016 Inactive mupirocin 2 % topica l ointment RxNorm: 172164 1 Application TOP BID 04/05/2016 05/04/2016 Inactive tramadol 50 mg tablet RxNorm: 121805 1 Tablet(s) PO Q4H as needed for pain 04/05/2016 05/14/2016 In active [SAVINGS FOR UNINSURED PATIENTS -- BIN:0 13702, PCN: ASPROD1, Group: [id number], ID# [id number], Process claim through [employer], for questions: . THIS IS NOT INSURANCE.] prednisone 10 mg tablet RxNorm: 388428 Tablet(s) PO UD 04/01/2016 09/26/2016 Inactive 6,5,4,3,2,1 levothyroxine 137 mc g tablet RxNorm: 992881 1 Tablet(s) PO daily 03/21/2016 03/20/2016 Inactive levothyroxine 137 mc g tablet RxNorm: 752596 1 Tablet(s) PO daily 03/21/2016 06/28/2016 Inactive Advair Diskus 100 mc g-50 mcg/dose powder for inhalation RxNorm: 2309929 1 Puff(s) INH BID 01/26/2016 05/24/2016 Inactive tramadol 50 mg tablet RxNorm: 698618 1 Tablet(s) PO Q4H as needed for pain 01/26/2016 03/05/2016 In active [SAVINGS FOR UNINSURED PATIENTS -- BIN:0 19706, PCN: ASPROD1, Group: [id number], ID# [id number], Process claim through [employer], for questions: . THIS IS NOT INSURANCE.] Bactroban 2 % topica l ointment RxNorm: 167383 APPLY TO AFFECTED ARE A(S) TWO TIMES A DAY 12/22/2015 12/31/2015 Inactive Bactrim DS 800 mg-16 0 mg tablet RxNorm: 107930 TAKE ONE TABLET BY [facility] TWICE A DAY 12/22/2015 04/18/2016 In active Bactrim DS 800 mg-16 0 mg tablet RxNorm: 534743 1 Tablet(s) PO BID 12/21/2015 01/21/2019 Inactive lisinopril 20 mg-hyd rochlorothiazide 25 mg tablet RxNorm: 737869 1 Tablet(s) PO daily 12/21/2015 06/17/2016 Inactive [SAVINGS FOR UNINSURED PATIENTS -- BIN:0 79579, PCN: ASPROD1, Group: [id number], ID# [id number], Process claim through [employer], for questions: . THIS IS NOT INSURANCE.] tramadol 50 mg tablet RxNorm: 003459 1 Tablet(s) PO Q4H as needed for pain 12/03/2015 01/11/2016 In active [SAVINGS FOR UNINSURED PATIENTS -- BIN:0 99948, PCN: ASPROD1, Group: [id number], ID# [id number], Process claim through [employer], for questions: . THIS IS NOT INSURANCE.] lorazepam 1 mg tablet RxNorm: 008416 Tablet(s) TAKE TWO TABLETS BY MOUTH AT B EDTIME AND ONE TABLET DAILY NEEDED 11/26/2015 06/27/2018 Inactive (Response to an electronic controlled substance refill request - RxReferenceNumber: [id number]) Bactrim DS 800 mg-16 0 mg tablet RxNorm: 014943 1 Tablet(s) PO BID 11/25/2015 12/04/2015 Inactive levothyroxine 150 mc g tablet RxNorm: 791403 1 Tablet(s) PO daily 11/25/2015 03/20/2016 Inactive Bactroban 2 % topica l ointment RxNorm: 190896 1 Application TOP BID 10/12/2015 10/21/2015 Inactive Bactrim DS 800 mg-16 0 mg tablet RxNorm: 092884 1 Tablet(s) PO BID 09/07/2015 09/06/2015 Inactive Bactrim DS 800 mg-16 0 mg tablet RxNorm: 518287 1 Tablet(s) PO BID 09/07/2015 09/16/2015 Inactive lorazepam 1 mg tablet RxNorm: 305366 Tablet(s) TAKE TWO TABLETS BY MOUTH AT B EDTIME AND ONE TABLET DAILY NEEDED 08/28/2015 11/24/2015 Inactive (Response to an electronic controlled substance refill request - RxReferenceNumber: [id number]) levothyroxine 175 mc g tablet RxNorm: 748059 1 Tablet(s) PO daily 08/24/2015 11/24/2015 Inactive tramadol 50 mg tablet RxNorm: 746908 1 Tablet(s) PO Q4H as needed for pain 08/24/2015 09/11/2017 In active [SAVINGS FOR UNINSURED PATIENTS -- BIN:0 13561, PCN: ASPROD1, Group: [id number], ID# [id number], Process claim through [employer], for questions: . THIS IS NOT INSURANCE.] lisinopril 20 mg-hyd rochlorothiazide 25 mg tablet RxNorm: 652734 1 Tablet(s) PO daily TAKE 1 TABLET BY MOUTH DAILY 08/24/2015 06/27/2018 Inactive ProAir HFA 90 mcg/ac tuation aerosol inhaler RxNorm: 944143 1-2 Puff(s) INH PRN I NHALE ONE TO TWO PUFFS BY MOUTH FOUR TIMES A DAY NEEDED FOR ASTHMA 08/24/2015 12/01/2015 In active ProAir HFA 90 mcg/ac tuation aerosol inhaler RxNorm: 6052058 INHALE ONE TO TWO PU FFS BY MOUTH FOUR TIMES A DAY NEEDED FOR ASTHMA 08/17/2015 08/23/2015 Inactive Advair Diskus 250 mc g-50 mcg/dose powder for inhalation RxNorm: 6990102 1 Puff(s) INH BID 07/20/2015 07/19/2015 Inactive Advair Diskus 250 mc g-50 mcg/dose powder for inhalation RxNorm: 7510777 1 Puff(s) INH BID 07/20/2015 11/16/2015 Inactive tramadol 50 mg tablet RxNorm: 359115 1 Tablet(s) PO Q4H as needed for pain 07/10/2015 08/17/2015 In active [SAVINGS FOR UNINSURED PATIENTS -- BIN:0 92449, PCN: ASPROD1, Group: [id number], ID# [id number], Process claim through [employer], for questions: . THIS IS NOT INSURANCE.] Zithromax Z-Linus 250 mg tablet RxNorm: 156092 1 Tablet(s) PO UD 07/10/2015 01/18/2016 Inactive Keflex 500 mg capsule RxNorm: 132996 1 Capsule(s) PO TID 06/01/2015 06/07/2015 Inactive mupirocin 2 % topica l ointment RxNorm: 412627 1 Application TOP TID 06/01/2015 06/10/2015 Inactive lisinopril 20 mg-hyd rochlorothiazide 25 mg tablet RxNorm: 693164 TAKE 1 TABLET BY MOUT H DAILY 05/30/2015 08/23/2015 Inactive lisinopril 20 mg-hyd rochlorothiazide 25 mg tablet RxNorm: 337723 1 Tablet(s) PO daily 05/29/2015 11/24/2015 Inactive [SAVINGS FOR UNINSURED PATIENTS -- BIN:0 79508, PCN: ASPROD1, Group: [id number], ID# [id number], Process claim through [employer], for questions: . THIS IS NOT INSURANCE.] lorazepam 1 mg tablet RxNorm: 217890 Tablet(s) TAKE TWO TABLETS BY MOUTH AT B EDTIME AND ONE TABLET DAILY NEEDED 04/17/2015 07/13/2015 Inactive (Response to an electronic controlled substance refill request - RxReferenceNumber: [id number]) levothyroxine 200 mc g tablet RxNorm: 831981 1 Tablet(s) PO daily 03/12/2015 08/23/2015 Inactive [SAVINGS FOR UNINSURED PATIENTS -- BIN:0 74631, PCN: ASPROD1, Group: [id number], ID# [id number], Process claim through [employer], for questions: . THIS IS NOT INSURANCE.] lisinopril 20 mg-hyd rochlorothiazide 25 mg tablet RxNorm: 190575 1 Tablet(s) PO daily 03/11/2015 05/28/2015 Inactive [SAVINGS FOR UNINSURED PATIENTS -- BIN:0 93902, PCN: ASPROD1, Group: [id number], ID# [id number], Process claim through [employer], for questions: . THIS IS NOT INSURANCE.] levothyroxine 175 mc g tablet RxNorm: 337203 1 Tablet(s) PO daily 03/09/2015 03/11/2015 Inactive recheck blood in 3 months- THIS IS CORRE CT DOSAGE levothyroxine 175 mc g tablet RxNorm: 506558 1 Tablet(s) PO daily 03/09/2015 03/08/2015 Inactive recheck blood in 3 months levothyroxine 150 mc g tablet RxNorm: 382853 1 Tablet(s) PO daily 03/09/2015 03/08/2015 Inactive recheck blood in 3 months lorazepam 1 mg tablet RxNorm: 680217 TAKE TWO TABLETS BY MOUTH AT BEDTIME AND ONE TABLET DAILY NEEDED 12/25/2014 01/22/2015 Inactive (Response to an electronic controlled substance refill request - RxReferenceNumber: [id number]) lorazepam 1 mg tablet RxNorm: 546357 Tablet(s) TAKE TWO TABLETS BY MOUTH EVER Y NIGHT AT BEDTIME AND TAKE ONE TABLET BY MOUTH DAILY NEEDED 12/23/2014 12/25/2014 Inactive (Response to an electronic controlled [place] - RxReferenceNumber: [id number]) levothyroxine 150 mc g tablet RxNorm: 650935 1 Tablet(s) PO daily 12/12/2014 03/08/2015 Inactive recheck blood in 3 months Diflucan 150 mg tablet RxNorm: 142433 1 Tablet(s) PO every other day (start af ter finished with Cipro) 11/17/2014 08/23/2015 Inactive tramadol 50 mg tablet RxNorm: 967849 1 Tablet(s) PO Q4H as needed for pain 11/10/2014 12/17/2014 In active [SAVINGS FOR UNINSURED PATIENTS -- BIN:[id number], PCN: [id number], Group: [id number], ID# [id number], Process claim through [employer], for questions: . THIS IS NOT INSURANCE.] Cipro 500 mg tablet RxNorm: 155173 1 Tablet(s) PO BID 10/23/2014 10/29/2014 Inactive Flagyl 500 mg tablet RxNorm: 105644 1 Tablet(s) PO TID 10/23/2014 10/29/2014 Inactive Cipro 500 mg tablet RxNorm: 993444 1 Tablet(s) PO BID 10/23/2014 10/22/2014 Inactive Flagyl 500 mg tablet RxNorm: 581868 1 Tablet(s) PO TID 10/23/2014 10/22/2014 Inactive Diflucan 150 mg tablet RxNorm: 695920 1 Tablet(s) PO every other day (start af ter finished with Cipro) 10/23/2014 11/16/2014 Inactive lorazepam 1 mg tablet RxNorm: 191953 TAKE TWO TABLETS BY MOUTH EVERY NIGHT AT BEDTIME AND TAKE ONE TABLET BY MOUTH DAILY NEEDED 10/21/2014 10/21/2014 Inactive (Response to an electronic controlled north bstance refill request - RxReferenceNumber: [id number]) lorazepam 1 mg tablet RxNorm: 860633 TAKE TWO TABLETS BY MOUTH EVERY NIGHT AT BEDTIME AND TAKE ONE TABLET BY MOUTH DAILY NEEDED 10/21/2014 11/18/2014 Inactive (Response to an electronic controlled north bstance refill request - RxReferenceNumber: [id number]) lorazepam 1 mg tablet RxNorm: 737498 Tablet(s) TAKE TWO TABLETS BY MOUTH AT B EDTIME, ALSO TAKE ONE TABLET BY MOUTH DAILY NEEDED 10/13/2014 10/21/2014 Inactive (Res ponse to an electronic controlled substance refill request - RxReferenceNumber: [id number]) ProAir HFA 90 mcg/ac tuation aerosol inhaler RxNorm: 0411229 1-2 inhale INH QID a s needed ASTHMA 10/13/2014 12/26/2014 Inactive ProAir HFA 90 mcg/ac tuation aerosol inhaler RxNorm: 4417863 1-2 inhale INH QID a s needed ASTHMA 09/18/2014 10/12/2014 Inactive meloxicam 7.5 mg tablet RxNorm: 374148 1 Tablet(s) PO daily 09/18/2014 03/10/2015 Inactive [SAVINGS FOR UNINSURED PATIENTS -- BIN:0 12618, PCN: ASPROD1, Group: [id number], ID# [id number], Process claim through [employer], for questions: . THIS IS NOT INSURANCE.] sulfamethoxazole 800 mg-trimethoprim 160 mg tablet RxNorm: 706605 1 Tablet(s) PO BID 09/18/2014 10/07/2014 Inactive levothyroxine 175 mc g tablet RxNorm: 422272 1 Tablet(s) PO daily 09/17/2014 12/11/2014 Inactive levothyroxine 175 mc g tablet RxNorm: 886108 1 Tablet(s) PO daily 09/17/2014 09/16/2014 Inactive lorazepam 1 mg tablet RxNorm: 744209 Tablet(s) TAKE TWO TABLETS BY MOUTH AT B EDTIME, ALSO TAKE ONE TABLET BY MOUTH DAILY NEEDED 09/12/2014 10/11/2014 Inactive (Res ponse to an electronic controlled substance refill request - RxReferenceNumber: [id number]) lorazepam 1 mg tablet RxNorm: 517919 TAKE TWO TABLETS BY MOUTH AT BEDTIME, AL SO TAKE ONE TABLET BY MOUTH DAILY NEEDED 09/08/2014 09/11/2014 Inactive (Res ponse to an electronic controlled substance refill request - RxReferenceNumber: [id number]) meloxicam 7.5 mg tablet RxNorm: 150635 1 Tablet(s) PO daily 09/01/2014 09/17/2014 Inactive [SAVINGS FOR UNINSURED PATIENTS -- BIN:0 87432, PCN: ASPROD1, Group: [id number], ID# [id number], Process claim through [employer], for questions: . THIS IS NOT INSURANCE.] lisinopril 20 mg-hyd rochlorothiazide 25 mg tablet RxNorm: 764628 1 Tablet(s) PO daily 09/01/2014 12/29/2014 Inactive [SAVINGS FOR UNINSURED PATIENTS -- BIN:0 18418, PCN: ASPROD1, Group: [id number], ID# [id number], Process claim through [employer], for questions: . THIS IS NOT INSURANCE.] tramadol 50 mg tablet RxNorm: 356991 1 Tablet(s) PO Q4H as needed for pain 08/20/2014 11/07/2014 In active [SAVINGS FOR UNINSURED PATIENTS -- BIN:0 59990, PCN: ASPROD1, Group: [id number], ID# [id number], Process claim through [employer], for questions: . THIS IS NOT INSURANCE.] meloxicam 7.5 mg tablet RxNorm: 052334 1 Tablet(s) PO daily 08/14/2014 08/31/2014 Inactive [SAVINGS FOR UNINSURED PATIENTS -- BIN:0 86386, PCN: ASPROD1, Group: AME08, ID# [id number], Process claim through [employer], for questions: . THIS IS NOT INSURANCE.] lorazepam 1 mg tablet RxNorm: 541036 2 Tablet(s) PO QHS and 1 tab qd PRN 08/01/2014 09/08/2014 In active [SAVINGS FOR UNINSURED PATIENTS -- BIN:0 95481, PCN: ASPROD1, Group: AME08, ID# [id number], Process claim through [employer], for questions: . THIS IS NOT INSURANCE.] levothyroxine 200 mc g tablet RxNorm: 517526 1 Tablet(s) PO daily 07/31/2014 09/16/2014 Inactive [SAVINGS FOR UNINSURED PATIENTS -- BIN:0 02960, PCN: ASPROD1, Group: AME08, ID# [id number], Process claim through [employer], for questions: . THIS IS NOT INSURANCE.] lorazepam 1 mg tablet RxNorm: 054131 2 Tablet(s) PO QHS and 1 tab qd PRN No Start Date 07/31/2014 Inactive Phenergan VC-Codeine oral RxNorm: 480424 oral No S tart Date 11/26/2017 Inactive meloxicam 7.5 mg tablet RxNorm: 545669 1 Tablet(s) PO daily No Start Date 08/13/2014 Inactive lisinopril 20 mg-hyd rochlorothiazide 25 mg tablet RxNorm: 218003 1 Tablet(s) PO daily No Start Date 08/31/2014 Inactive levothyroxine 200 mc g tablet RxNorm: 248543 1 Tablet(s) PO daily No Start Date 07/30/2014 Inactive Diflucan 150 mg tablet RxNorm: 318574 1 Tablet(s) PO every other day No Start Date 10/22/2014 Inactive Zithromax Z-Linus 250 mg tablet RxNorm: 765815 1 Tablet(s) PO UD No Start Date 07/09/2015 Inactive tramadol 50 mg tablet RxNorm: 899112 1 Tablet(s) PO Q6 as needed No Start Date 08/19/2014 Inactive Medication Administered Medication Codes Instruc tions Start Date Status Kenalog 40 mg/mL suspension for injection RxNorm: 6823006 1Milliliter 06/14/2017 N o longer Active Kenalog 40 mg/mL suspension for injection RxNorm: 8896556 1Milliliter 03/27/2017 N o longer Active Kenalog 40 mg/mL suspension for injection RxNorm: 5740650 Milliliter 12/07/2016 No longer Active Kenalog 40 mg/mL suspension for injection RxNorm: 4560935 Milliliter 11/28/2016 No longer Active Immunizations Vaccine [...] 29.7 pg 03/21/2019 Cbc With Differential Ord2 Harper% 10.5 % 03/21/2019 Cbc With Differential Ord2 [...] 1.51 K/ul 03/21/2019 Cbc With Differential Ord2 Harper ABS# 0.6 K/ul 03/21/2019 Cbc With Differential Ord2 Eos ABS# 0.2 K/ul 03/21/2019 Cbc With Differential Ord2 Baso ABS# 0.0 K/ul 03/21/2019 Free T4 Mmd810 FREE T4 1.52 ng/dL 03/21/2019 Comp Metabolic Www272 NA 141 mEq/L 03/21/2019 Comp Metabolic Dxw901 K 3.9 mEq/L 03/21/2019 Comp Metabolic Tce031 CL 107 mEq/L 03/21/2019 Comp Metabolic Xat056 CO2 26.0 mEq/L 03/21/2019 Comp Metabolic Mix118 AN ION GAP 12 03/21/2019 Comp Metabolic Ofb325 GL UCOSE 111 mg/dL 03/21/2019 Comp Metabolic Gfl332 Cr eat 0.8 mg/dL 03/21/2019 Comp Metabolic Goa167 eG FR 77 ml/min/1.73m2 03/21 Comp Metabolic Pxj550 BUN 14 mg/dL 03/21/2019 Comp Metabolic Zet680 B/ C Ratio 18.2 Ratio 03/21/2019 Comp Metabolic Bev092 CA LCIUM 9.2 mg/dL 03/21/2019 Comp Metabolic Eyt311 AL K PHOS 68 U/L 03/21/2019 Comp Metabolic Ale586 T(SGOT) 11 U/L 03/21/2019 Comp Metabolic Txf227 AL T(SGPT) 8 U/L 03/21/2019 Comp Metabolic Hjv235 BI LI T 0.5 mg/dL 03/21/2019 Comp Metabolic Ilg636 AL BUMIN 4.1 g/dL 03/21/2019 Comp Metabolic Tla109 TP RO 6.3 g/dL 03/21/2019 Comp Metabolic Cjf399 GL OB 2.2 g/dL 03/21/2019 Comp Metabolic Wjr619 A/ G Ratio 1.9 Ratio 03/21/2019 Comp Metabolic Yiu276 Os mo 282 mOsmo 03/21/2019 Tsh Ord6 TSH (3rd IS) 1.49 uIU/mL 01/21/2019 Free T4 Ntq967 FREE T4 1.15 ng/dL 01/21/2019 Lipid Ord30 CHOL 231 mg/dL 10/24/2018 Lipid Ord30 HDL 56.0 mg/dl 10/24/2018 Lipid Ord30 TRIG 71 mg/dL 10/24/2018 Lipid Ord30 LDL 161 mg/dL 10/24/2018 Lipid Ord30 C/HDL 4.1 Ratio 10/24/2018 Comp Metabolic Pnl319 NA 141 mEq/L 10/24/2018 Comp Metabolic Ryh433 K 3.7 mEq/L 10/24/2018 Comp Metabolic Mjk795 CL 103 mEq/L 10/24/2018 Comp Metabolic Pxl928 CO2 30.0 mEq/L 10/24/2018 Comp Metabolic Llz284 AN ION GAP 12 10/24/2018 Comp Metabolic Crk448 GL UCOSE 98 mg/dL 10/24/2018 Comp Metabolic Atc146 Cr eat 0.8 mg/dL 10/24/2018 Comp Metabolic Axh764 eG FR 71 ml/min/1.73m2 10/24 Comp Metabolic Ems345 BUN 12 mg/dL 10/24/2018 Comp Metabolic Pnl506 B/ C Ratio 14.5 Ratio 10/24/2018 Comp Metabolic Xhp883 CA LCIUM 9.2 mg/dL 10/24/2018 Comp Metabolic Xnm434 AL K PHOS 76 U/L 10/24/2018 Comp Metabolic Jxa219 T(SGOT) 12 U/L 10/24/2018 Comp Metabolic Bjo795 AL T(SGPT) 9 U/L 10/24/2018 Comp Metabolic Gvg671 BI LI T 0.5 mg/dL 10/24/2018 Comp Metabolic Yqz560 AL BUMIN 4.3 g/dL 10/24/2018 Comp Metabolic Jkr145 TP RO 6.5 g/dL 10/24/2018 Comp Metabolic Qhw950 GL OB 2.2 g/dL 10/24/2018 Comp Metabolic Wwc191 A/ G Ratio 2.0 Ratio 10/24/2018 Comp Metabolic Tlt789 Os mo 281 mOsmo 10/24/2018 Free T4 Vir759 FREE T4 0.76 ng/dL 10/24/2018 Cbc With [...] 30.5 pg 10/24/2018 Cbc With Differential Ord2 Harper% 8.4 % 10/24/2018 Cbc With Differential Ord2 [...] 1.71 K/ul 10/24/2018 Cbc With Differential Ord2 Harper ABS# 0.4 K/ul 10/24/2018 Cbc With Differential [...] 30.0 pg 04/04/2018 Cbc With Differential Ord2 Harper% 10.9 % 04/04/2018 Cbc With Differential Ord2 [...] 1.42 K/ul 04/04/2018 Cbc With Differential Ord2 Harper ABS# 0.6 K/ul 04/04/2018 Cbc With Differential Ord2 Eos ABS# 0.1 K/ul 04/04/2018 Cbc With Differential Ord2 Baso ABS# 0.0 K/ul 04/04/2018 Free T4 Yau887 FREE T4 1.25 ng/dL 04/04/2018 Tsh Ord6 [...] 30.2 pg 11/28/2017 Cbc With Differential Ord2 Harper% 10.1 % 11/28/2017 Cbc With Differential Ord2 [...] 1.33 K/ul 11/28/2017 Cbc With Differential Ord2 Harper ABS# 0.5 K/ul 11/28/2017 Cbc With Differential Ord2 Eos ABS# 0.1 K/ul 11/28/2017 Cbc With Differential Ord2 Baso ABS# 0.0 K/ul 11/28/2017 Free T4 Asi598 FREE T4 1.43 ng/dL 11/28/2017 Lipid Ord30 CHOL 186 mg/dL 11/28/2017 Lipid Ord30 HDL 54.0 mg/dl 11/28/2017 Lipid Ord30 TRIG 59 mg/dL 11/28/2017 Lipid Ord30 LDL 120 mg/dL 11/28/2017 Lipid Ord30 C/HDL 3.4 Ratio 11/28/2017 Comp Metabolic Hoc972 NA 141 mEq/L 11/28/2017 Comp Metabolic Qpm661 K 4.0 mEq/L 11/28/2017 Comp Metabolic Qat361 CL 105 mEq/L 11/28/2017 Comp Metabolic Jhd215 CO2 29.0 mEq/L 11/28/2017 Comp Metabolic Ohv430 AN ION GAP 11 11/28/2017 Comp Metabolic Hab817 GL UCOSE 91 mg/dL 11/28/2017 Comp Metabolic Fdk190 Cr eat 0.8 mg/dL 11/28/2017 Comp Metabolic Qzb812 eG FR 74 ml/min/1.73m2 11/28 Comp Metabolic Vrq594 BUN 15 mg/dL 11/28/2017 Comp Metabolic Lsu209 B/ C Ratio 18.8 Ratio 11/28/2017 Comp Metabolic Hax877 CA LCIUM 8.6 mg/dL 11/28/2017 Comp Metabolic Czx708 AL K PHOS 76 U/L 11/28/2017 Comp Metabolic Yht756 T(SGOT) 10 U/L 11/28/2017 Comp Metabolic Tez024 AL T(SGPT) 8 U/L 11/28/2017 Comp Metabolic Bsq171 BI LI T 0.5 mg/dL 11/28/2017 Comp Metabolic Mxv851 AL BUMIN 4.0 g/dL 11/28/2017 Comp Metabolic Dyk880 TP RO 6.1 g/dL 11/28/2017 Comp Metabolic Dfl935 GL OB 2.1 g/dL 11/28/2017 Comp Metabolic Otu320 A/ G Ratio 1.9 Ratio 11/28/2017 Comp Metabolic Udv016 Os mo 282 mOsmo 11/28/2017 Tsh Ord6 TSH (3rd IS) 3.31 uIU/mL 11/28/2017 Tsh Ord6 hTSH II 1.45 uIU/mL 03/27/2017 Free T4 Kxi434 FREE T4 1.23 ng/dL 03/27/2017 Comp Metabolic Gja745 NA 140 mEq/L 09/28/2016 Comp Metabolic Kyc730 K 3.9 mEq/L 09/28/2016 Comp Metabolic Cdl149 CL 104 mEq/L 09/28/2016 Comp Metabolic Zmh272 CO2 28.0 mEq/L 09/28/2016 Comp Metabolic Czq757 AN ION GAP 12 09/28/2016 Comp Metabolic Xmr630 GL UCOSE 97 mg/dL 09/28/2016 Comp Metabolic Wnb548 Cr eat 0.8 mg/dL 09/28/2016 Comp Metabolic Bxy481 eG FR 79 ml/min/1.73m2 09/28 Comp Metabolic Hvc778 BUN 13 mg/dL 09/28/2016 Comp Metabolic Wdi132 B/ C Ratio 17.1 Ratio 09/28/2016 Comp Metabolic Mmn561 CA LCIUM 8.9 mg/dL 09/28/2016 Comp Metabolic Ntn291 AL K PHOS 100 U/L 09/28/2016 Comp Metabolic Rzz706 T(SGOT) 12 U/L 09/28/2016 Comp Metabolic Yks279 AL T(SGPT) 9 U/L 09/28/2016 Comp Metabolic Mnw436 BI LI T 0.4 mg/dL 09/28/2016 Comp Metabolic Dot088 AL BUMIN 4.1 g/dL 09/28/2016 Comp Metabolic Kuh931 TP RO 6.6 g/dL 09/28/2016 Comp Metabolic Ulo019 GL OB 2.5 g/dL 09/28/2016 Comp Metabolic Imt267 A/ G Ratio 1.6 Ratio 09/28/2016 Comp Metabolic Bqy906 Os mo 279 mOsmo 09/28/2016 Lipid Ord30 [...] 28.8 pg 09/28/2016 Cbc With Differential Ord2 Harper% 7.2 % 09/28/2016 Cbc With Differential Ord2 [...] 1.41 K/ul 09/28/2016 Cbc With Differential Ord2 Harper ABS# 0.5 K/ul 09/28/2016 Cbc With Differential Ord2 Eos ABS# 0.2 K/ul 09/28/2016 Cbc With Differential Ord2 Baso ABS# 0.0 K/ul 09/28/2016 Free T4 Oxj742 FREE T4 1.43 ng/dL 09/28/2016 Tsh Ord6 hTSH II 0.52 uIU/mL 09/28/2016 Tsh Ord6 hTSH II 0.47 uIU/mL 06/16/2016 Comp Metabolic Ngu609 NA 139 mEq/L 06/16/2016 Comp Metabolic Mak794 K 4.3 mEq/L 06/16/2016 Comp Metabolic Pxq900 CL 105 mEq/L 06/16/2016 Comp Metabolic Sjb726 CO2 30.0 mEq/L 06/16/2016 Comp Metabolic Ccn241 AN ION GAP 8 06/16/2016 Comp Metabolic Nge519 GL UCOSE 90 mg/dL 06/16/2016 Comp Metabolic Cvr620 Cr eat 0.7 mg/dL 06/16/2016 Comp Metabolic Iyp318 eG FR 91 ml/min/1.73m2 06/16 Comp Metabolic Prb496 BUN 15 mg/dL 06/16/2016 Comp Metabolic Jhv185 B/ C Ratio 22.4 Ratio 06/16/2016 Comp Metabolic Izl950 CA LCIUM 8.8 mg/dL 06/16/2016 Comp Metabolic Xss300 AL K PHOS 79 U/L 06/16/2016 Comp Metabolic Elw839 T(SGOT) 13 U/L 06/16/2016 Comp Metabolic Jys480 AL T(SGPT) 11 U/L 06/16/2016 Comp Metabolic Usz056 BI LI T 0.5 mg/dL 06/16/2016 Comp Metabolic Dis836 AL BUMIN 3.9 g/dL 06/16/2016 Comp Metabolic Ekb426 TP RO 6.1 g/dL 06/16/2016 Comp Metabolic Tdx208 GL OB 2.2 g/dL 06/16/2016 Comp Metabolic Emp454 A/ G Ratio 1.8 Ratio 06/16/2016 Comp Metabolic Qab258 Os mo 278 mOsmo 06/16/2016 Lipid Ord30 [...] 28.9 pg 06/16/2016 Cbc With Differential Ord2 Harper% 8.1 % 06/16/2016 Cbc With Differential Ord2 [...] 1.70 K/ul 06/16/2016 Cbc With Differential Ord2 Harper ABS# 0.4 K/ul 06/16/2016 Cbc With Differential Ord2 Eos ABS# 0.2 K/ul 06/16/2016 Cbc With Differential Ord2 Baso ABS# 0.0 K/ul 06/16/2016 Free T4 Vhe695 FREE T4 1.42 ng/dL 06/16/2016 Free T4 Wyd996 FREE T4 1.34 ng/dL 03/04/2016 Tsh Ord6 hTSH II 0.56 uIU/mL 03/04/2016 Tsh Ord6 hTSH II 0.98 uIU/mL 01/27/2016 Free T4 Evq256 FREE T4 1.19 ng/dL 01/27/2016 Free T4 Zbs418 FREE T4 1.69 ng/dL 11/23/2015 Tsh Ord6 hTSH II 0.08 uIU/mL 11/23/2015 Lipid Ord30 CHOL 185 mg/dL 08/21/2015 Lipid Ord30 HDL 50.0 mg/dl 08/21/2015 Lipid Ord30 TRIG 88 mg/dL 08/21/2015 Lipid Ord30 LDL 117 mg/dL 08/21/2015 Lipid Ord30 C/HDL 3.7 Ratio 08/21/2015 Comp Metabolic Fvc456 NA 139 mEq/L 08/21/2015 Comp Metabolic Drt583 K 4.3 mEq/L 08/21/2015 Comp Metabolic Usr378 CL 102 mEq/L 08/21/2015 Comp Metabolic Ogg314 CO2 27.0 mEq/L 08/21/2015 Comp Metabolic Rrn187 AN ION GAP 14 08/21/2015 Comp Metabolic Hoy584 GL UCOSE 89 mg/dL 08/21/2015 Comp Metabolic Vyz877 Cr eat 0.7 mg/dL 08/21/2015 Comp Metabolic Lqm447 eG FR 85 ml/min/1.73m2 08/21 Comp Metabolic Zgb456 BUN 14 mg/dL 08/21/2015 Comp Metabolic Wkj105 B/ C Ratio 19.7 Ratio 08/21/2015 Comp Metabolic Lcc537 CA LCIUM 9.5 mg/dL 08/21/2015 Comp Metabolic Dfe328 AL K PHOS 123 U/L 08/21/2015 Comp Metabolic Hdl510 T(SGOT) 13 U/L 08/21/2015 Comp Metabolic Jwx443 AL T(SGPT) 10 U/L 08/21/2015 Comp Metabolic Ilv614 BI LI T 0.4 mg/dL 08/21/2015 Comp Metabolic Bbl053 AL BUMIN 4.1 g/dL 08/21/2015 Comp Metabolic Wgs836 TP RO 6.8 g/dL 08/21/2015 Comp Metabolic Scv021 GL OB 2.7 g/dL 08/21/2015 Comp Metabolic Tce449 A/ G Ratio 1.5 Ratio 08/21/2015 Comp Metabolic Zli577 Os mo 277 mOsmo 08/21/2015 Free T4 Lmj609 FREE T4 1.78 ng/dL 08/21/2015 Tsh Ord6 [...] Ord2 RDW 13.9 % 08/21/2015 Quick Strep Rrg1334 Quic k Strep Negative 07/08/2015 Tsh Ord6 hTSH II 0.04 uIU/mL 05/20/2015 Free T4 Zzp586 FREE T4 1.50 ng/dL 05/20/2015 Review of [...] Procedure Codes Date DESTRUCT PREMALG LESION CPT-4: 73213 01/19/2018 URINALYSIS NONAUTO W /O SCOPE CPT-4: 03991 09/12/2017 TRIAMCINOLONE ACET I [place] NOS CPT-4: J3301 06/14/2017 THER/PROPH/DIAG INJ SC/IM CPT-4: 90410 06/14/2017 PRESCRIP TRANSMIT A ERX SY CPT-4: G8553 06/14/2017 TRIAMCINOLONE ACET I [place] NOS CPT-4: J3301 03/27/2017 THER/PROPH/DIAG INJ SC/IM CPT-4: 99522 12/07/2016 TRIAMCINOLONE ACET I [place] NOS CPT-4: J3301 12/07/2016 THER/PROPH/DIAG INJ SC/IM CPT-4: 31214 11/28/2016 TRIAMCINOLONE ACET I [place] NOS CPT-4: J3301 11/28/2016 Vital Signs Date Vital 05/23/2019 Blood Pressure 1: 130/82 Code: 8480-6 BMI: 35.5 Code: 70972-5 Heart Rate 1: 69 bpm Height: 5'6" SpO2: 98% Weight: 220 lbs 05/07/2019 Blood Pressure 1: 138/68 Code: 8480-6 BMI: 36.0 Code: 76575-6 Heart Rate 1: 86 bpm Height: 5'6" SpO2: 98% Weight: 223 lbs 04/29/2019 Blood Pressure 1: 144/60 Code: 8480-6 BMI: 36.0 Code: 70817-6 Heart Rate 1: 73 bpm Height: 5'6" SpO2: 98% Weight: 223 lbs 03/21/2019 Blood Pressure 1: 132/64 Code: 8480-6 BMI: 36.2 Code: 20864-8 Heart Rate 1: 76 bpm Height: 5'6" SpO2: 94% Weight: 224 lbs 01/22/2019 Blood Pressure 1: 132/66 Code: 8480-6 BMI: 37.1 Code: 10855-0 Heart Rate 1: 73 bpm Height: 5'6" SpO2: 96% Weight: 230 lbs 11/21/2018 Blood Pressure 1: 120/64 Code: 8480-6 Heart Rate 1: 64 bpm 10/30/2018 Blood Pressure 1: 144/70 Code: 8480-6 BMI: 37.0 Code: 94473-3 Heart Rate 1: 76 bpm Height: 5'6" SpO2: 96% Weight: 229 lbs 06/28/2018 Blood Pressure 1: 110/66 Code: 8480-6 BMI: 37.1 Code: 21230-6 Heart Rate 1: 73 bpm Height: 5'6" SpO2: 98% Weight: 230 lbs 04/04/2018 Blood Pressure 1: 128/76 Code: 8480-6 BMI: 37.9 Code: 39654-4 Heart Rate 1: 86 bpm Height: 5'6" SpO2: 98% Weight: 235 lbs 01/19/2018 Blood Pressure 1: 122/68 Code: 8480-6 Heart Rate 1: 78 bpm Height: 5'6" SpO2: 97% Weight: 01/05/2018 Blood Pressure 1: 138/78 Code: 8480-6 BMI: 38.4 Code: 87690-3 Heart Rate 1: 73 bpm Height: 5'6" SpO2: 95% Weight: 238 lbs 11/29/2017 Blood Pressure 1: 138/80 Code: 8480-6 BMI: 38.7 Code: 53962-9 Heart Rate 1: 71 bpm Height: 5'6" SpO2: 97% Weight: 240 lbs 10/25/2017 Blood Pressure 1: 136/72 Code: 8480-6 BMI: 38.7 Code: 38453-0 Heart Rate 1: 92 bpm Height: 5'6" SpO2: 98% Weight: 240 lbs 09/12/2017 Blood Pressure 1: 132/68 Code: 8480-6 BMI: 39.7 Code: 98244-0 Heart Rate 1: 76 bpm Height: 5'6" SpO2: 98% Weight: 246 lbs 06/14/2017 Blood Pressure 1: 130/80 Code: 8480-6 BMI: 39.4 Code: 81301-7 Heart Rate 1: 73 bpm Height: 5'6" SpO2: 95% Temperature: 36.9 (C ) / 98.5 (F) Weight: 244 lbs 05/10/2017 Blood Pressure 1: 128/68 Code: 8480-6 BMI: 38.7 Code: 33763-2 Heart Rate 1: 69 bpm Height: 5'6" SpO2: 97% Weight: 240 lbs 04/19/2017 Blood Pressure 1: 138/74 Code: 8480-6 BMI: 38.7 Code: 68171-5 Heart Rate 1: 73 bpm Height: 5'6" SpO2: 96% Weight: 240 lbs 03/27/2017 Blood Pressure 1: 142/84 Code: 8480-6 BMI: 38.7 Code: 71249-4 Heart Rate 1: 69 bpm Height: 5'6" SpO2: 97% Weight: 240 lbs 01/26/2017 Blood Pressure 1: 136/68 Code: 8480-6 Heart Rate 1: 64 bpm Height: 5'6" SpO2: 96% Weight: 12/07/2016 Blood Pressure 1: 130/72 Code: 8480-6 BMI: 39.7 Code: 69549-4 Heart Rate 1: 73 bpm Height: 5'6" SpO2: 93% Temperature: 36.8 (C ) / 98.3 (F) Weight: 246 lbs 11/28/2016 Blood Pressure 1: 138/60 Code: 8480-6 BMI: 39.7 Code: 25261-8 Heart Rate 1: 81 bpm Height: 5'6" SpO2: 97% Weight: 246 lbs 11/15/2016 Blood Pressure 1: 134/78 Code: 8480-6 BMI: 39.7 Code: 54769-6 Heart Rate 1: 75 bpm Height: 5'6" SpO2: 93% Temperature: 36.8 (C ) / 98.2 (F) Weight: 246 lbs 10/17/2016 Blood Pressure 1: 120/64 Code: 8480-6 BMI: 38.4 Code: 46989-6 Heart Rate 1: 69 bpm Height: 5'6" SpO2: 98% Temperature: 37.2 (C ) / 98.9 (F) Weight: 238 lbs 09/28/2016 Blood Pressure 1: 158/76 Code: 8480-6 BMI: 39.4 Code: 04300-6 Heart Rate 1: 71 bpm Height: 5'6" SpO2: 97% Weight: 244 lbs 06/29/2016 Blood Pressure 1: 124/60 Code: 8480-6 BMI: 38.7 Code: 34418-4 Heart Rate 1: 71 bpm Height: 5'6" SpO2: 98% Weight: 240 lbs 06/01/2016 Blood Pressure 1: 120/62 Code: 8480-6 BMI: 38.6 Code: 97559-8 Heart Rate 1: 76 bpm Height: 5'6" SpO2: 98% Weight: 239 lbs 05/11/2016 Blood Pressure 1: 140/80 Code: 8480-6 BMI: 38.1 Code: 95650-9 Heart Rate 1: 88 bpm Height: 5'6" SpO2: 97% Weight: 236 lbs 04/05/2016 Blood Pressure 1: 142/80 Code: 8480-6 BMI: 38.4 Code: 37212-3 Heart Rate 1: 96 bpm Height: 5'6" SpO2: 98% Weight: 238 lbs 04/01/2016 Blood Pressure 1: 136/88 Code: 8480-6 BMI: 39.2 Code: 44146-9 Heart Rate 1: 86 bpm Height: 5'6" SpO2: 96% Weight: 243 lbs 01/26/2016 Blood Pressure 1: 124/76 Code: 8480-6 BMI: 39.2 Code: 24084-1 Heart Rate 1: 76 bpm Height: 5'6" SpO2: 97% Weight: 243 lbs 12/21/2015 Blood Pressure 1: 120/64 Code: 8480-6 BMI: 37.0 Code: 74865-1 Heart Rate 1: 98 bpm Height: 5'6" SpO2: 97% Weight: 229 lbs 10/12/2015 Blood Pressure 1: 150/64 Code: 8480-6 BMI: 37.4 Code: 33351-1 Heart Rate 1: 70 bpm Height: 5'6" SpO2: 94% Weight: 232 lbs 08/24/2015 Blood Pressure 1: 128/74 Code: 8480-6 BMI: 36.8 Code: 26855-7 Heart Rate 1: 88 bpm Height: 5'6" SpO2: 94% Temperature: 36.8 (C ) / 98.3 (F) Weight: 228 lbs 06/01/2015 Blood Pressure 1: 134/68 Code: 8480-6 BMI: 36.0 Code: 01823-3 Heart Rate 1: 70 bpm Height: 5'6" SpO2: 98% Weight: 223 lbs 05/21/2015 Blood Pressure 1: 126/72 Code: 8480-6 BMI: 35.2 Code: 04440-2 Heart Rate 1: 63 bpm Height: 5'6" SpO2: 95% Weight: 218 lbs 5 oz 03/26/2015 Blood Pressure 1: 140/62 Code: 8480-6 BMI: 35.3 Code: 76739-5 Heart Rate 1: 68 bpm Height: 5'6" Weight: 219 lbs 03/11/2015 Blood Pressure 1: 130/80 Code: 8480-6 BMI: 34.9 Code: 17575-9 Heart Rate 1: 76 bpm Height: 5'6" Temperature: 37.1 (C ) / 98.7 (F) Weight: 216 lbs 12/11/2014 Blood Pressure 1: 134/62 Code: 8480-6 BMI: 34.2 Code: 90791-8 Heart Rate 1: 72 bpm Height: 5'6" Weight: 212 lbs 09/18/2014 Blood Pressure 1: 148/80 Code: 8480-6 BMI: 34.7 Code: 55482-6 Heart Rate 1: 68 bpm Height: 5'6" Weight: 215 lbs 07/31/2014 Blood Pressure 1: 124/72 Code: 8480-6 BMI: 36.2 Code: 64683-6 Heart Rate 1: 68 bpm Height: 5'6" [...] Severity mi ld 09/28/2016 None 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 09/28/2016 None hypothyroid Onset and Resolution [...] Severity mi ld 06/01/2016 None hypothyroid Quality crm system administrator jaeme 06/01/2016 None hypothyroid Onset and Resolution ongoing [...] and Resolution resolved 04/05/2016 None 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 PATIENT, LEVEL IV Diagnosis: Other specified hypothyroidism[ICD10: E03.8] Diagnosis: Mild intermittent asthma, uncomplicated[ICD10: J45.20] Diagnosis: Diarrhea, unspecified[ICD10: R19.7] Lynn Finn MD, [facility] CPT-4: 51540 05/23/2019 04805 EST. 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 PATIENT, LEVEL III Diagnosis: Pain in left knee[ICD10: M25.562] Diagnosis: Other pruritus[ICD10: L29.8] Diagnosis: Rash and other nonspecific skin eruption[ICD10: R21] Mishel Finn MD, [facility] CPT-4: 71396 04/29/2019 ([id number]) [id number] EST. P ATIENT, LEVEL IV Diagnosis: Hypothyroidism, unspecified[ICD10: E03.9] Diagnosis: Changes in skin texture[ICD10: R23.4] Diagnosis: Mild intermittent asthma, uncomplicated[ICD10: J45.20] Lynn Finn MD, [facility] CPT-4: 57619 03/21/2019 ([id number]) 25767 EST. P ATIENT, LEVEL IV Diagnosis: Mild intermittent asthma, uncomplicated[ICD10: J45.20] Diagnosis: Hypothyroidism, unspecified[ICD10: E03.9] Diagnosis: Low back pain[ICD10: M54.5] Lynn Finn MD, [facility] CPT- 4: 66884 01/22/2019 ([id number]) Miscellaneou s no charge Diagnosis: Essential (primary) hypertension[ICD10: I10] Damari Finn MD, [facility] CPT-4: 91959 11/21/2018 ([id number]) 50261 EST. P ATIENT, LEVEL IV Diagnosis: Essential (primary) hypertension[ICD10: I10] Diagnosis: Hypothyroidism, unspecified[ICD10: E03.9] Diagnosis: Low back pain[ICD10: M54.5] Lynn Finn MD, [facility] CPT- 4: 18761 10/30/2018 ([id number]) 64347 EST. [facility], L[facility] Diagnosis: Acute recurrent maxillary sinusitis[ICD10: J01.01] Diagnosis: Other mucopurulent conjunctivitis, left eye[ICD10: H10.022] Diagnosis: Other allergic rhinitis[ICD10: J30.89] Lynn Finn MD, [facility] CPT-4: 63462 06/28/2018 [id number] EST. PATIENT, LEVEL IV Diagnosis: Essential (primary) hypertension[ICD10: I10] Diagnosis: Other specified hypothyroidism[ICD10: E03.8] Diagnosis: Other specified anemias[ICD10: D64.89] Diagnosis: Localized edema[ICD10: R60.0] Mishel Finn MD, [facility] CPT-4: 98172 04/04/2018 ([id number]) 37687 EST. [facility] Diagnosis: Mild persistent asthma, uncomplicated[ICD10: J45.30] Diagnosis: Actinic keratosis[ICD10: L57.0] Lynn Finn MD, [facility] CPT- 4: 90520 01/05/2018 ([id number]) Miscellaneou s no charge Diagnosis: Essential (primary) hypertension[ICD10: I10] Damari Finn MD, [facility] CPT-4: 59793 12/12/2017 47834 EST. PATIENT, LEVEL III Diagnosis: Essential (primary) hypertension[ICD10: I10] Diagnosis: Atrophy of thyroid (acquired)[ICD10: E03.4] Diagnosis: Low back pain[ICD10: M54.5] Mishel Finn MD, [facility] CPT-4: 32651 11/29/2017 50590 EST. PATIENT, LEVEL III Diagnosis: Pain in left hip[ICD10: M25.552] Mishel Finn MD, [facility] CPT-4: 64713 10/25/2017 27336 EST. PATIENT, LEVEL IV Diagnosis: Localized edema[ICD10: R60.0] Mishel Finn MD, [facility] CPT-4: 28325 09/12/2017 06668 EST. PATIENT, LEVEL IV Diagnosis: Mild persistent asthma with (acute) exacerbation[ICD10: J45.31] Mishel Finn MD, [facility] CPT-4: 72532 06/14/2017 47640 EST. PATIENT, LEVEL III Diagnosis: Localized edema[ICD10: R60.0] Diagnosis: Mild persistent asthma, uncomplicated[ICD10: J45.30] Mishel Finn MD, [facility] CPT-4: 17643 05/10/2017 94854 EST. PATIENT, LEVEL III Diagnosis: Mild persistent asthma with (acute) exacerbation[ICD10: J45.31] Mishel Finn MD, [facility] CPT-4: 42409 04/19/2017 ([id number]) 23095 EST. P ATIENT, LEVEL IV Diagnosis: Contusion of left wrist, initial encounter[ICD10: S60.212A] Diagnosis: Hypothyroidism, unspecified[ICD10: E03.9] Diagnosis: Mild persistent asthma with (acute) exacerbation[ICD10: J45.31] Diagnosis: Low back pain[ICD10: M54.5] Lynn Finn MD, [facility] CPT- 4: 65052 03/27/2017 ([id number]) 70678 EST. P ATIENT, LEVEL IV Diagnosis: Essential (primary) hypertension[ICD10: I10] Diagnosis: Atrophy of thyroid (acquired)[ICD10: E03.4] Diagnosis: Low back pain[ICD10: M54.5] Damari Finn MD, [facility] CPT-4: 61531 01/26/2017 20899 EST. PATIENT, LEVEL III Diagnosis: Other allergic rhinitis[ICD10: J30.89] Diagnosis: Mild persistent asthma with (acute) exacerbation[ICD10: J45.31] Mishel Finn MD, [facility] CPT-4: 78825 12/07/2016 45034 EST. PATIENT, LEVEL III Diagnosis: Mild persistent asthma with (acute) exacerbation[ICD10: J45.31] Mishel Finn MD [facility] CPT-4: 13307 11/28/2016 61802 EST. PATIENT, LEVEL III Diagnosis: Mild persistent asthma with (acute) exacerbation[ICD10: J45.31] Diagnosis: Acute bronchitis due to other specified organisms[ICD10: J20.8] Mishel Finn MD, [facility] CPT-4: 36453 11/15/2016 92943 EST. PATIENT, LEVEL IV Diagnosis: Other acute sinusitis[ICD10: J01.80] Diagnosis: Other allergic rhinitis[ICD10: J30.89] Diagnosis: Mild persistent asthma with (acute) exacerbation[ICD10: J45.31] Mishel Finn MD, [facility] CPT-4: 05253 10/17/2016 ([id number]) 46538 EST. P ATIENT, LEVEL IV Diagnosis: Essential (primary) hypertension[ICD10: I10] Diagnosis: Low back pain[ICD10: M54.5] Damari Finn MD, [facility] CPT-4: 01376 09/28/2016 95866 EST. PATIENT, LEVEL III Diagnosis: Tinea barbae and tinea capitis[ICD10: B35.0] Diagnosis: Other specified hypothyroidism[ICD10: E03.8] Mishel Finn MD, [facility] CPT-4: 77355 06/29/2016 ([id number]) 90843 EST. P ATIENT, LEVEL IV Diagnosis: Essential (primary) hypertension[ICD10: I10] Diagnosis: Atrophy of thyroid (acquired)[ICD10: E03.4] Diagnosis: Rash and other nonspecific skin eruption[ICD10: R21] Damari Finn MD, [facility] CPT-4: 51663 06/01/2016 ([id number]) 47149 EST. P ATIENT, LEVEL III Diagnosis: Cellulitis of groin[ICD10: L03.314] Damari Finn MD, [facility] CPT- 4: 83056 05/11/2016 ([id number]) 85354 EST. P ATIENT, LEVEL IV Diagnosis: Hypothyroidism, unspecified[ICD10: E03.9] Diagnosis: Candidiasis of vulva and vagina[ICD10: B37.3] Diagnosis: Essential (primary) hypertension[ICD10: I10] Diagnosis: Low back pain[ICD10: M54.5] Lynn Finn MD, [facility] CPT- 4: 53307 04/05/2016 52031 EST. PATIENT, LEVEL III Diagnosis: Other acute sinusitis[ICD10: J01.80] Diagnosis: Rash and other nonspecific skin eruption[ICD10: R21] Mishel Finn MD, [facility] CPT-4: 49484 04/01/2016 ([id number]) 73942 EST. P ATIENT, LEVEL IV Diagnosis: Essential (primary) hypertension[ICD10: I10] Diagnosis: Hypothyroidism, unspecified[ICD10: E03.9] Diagnosis: Low back pain[ICD10: M54.5] Diagnosis: Other obesity due to excess calories[ICD10: E66.09] Lynn Finn MD, [facility] CPT-4: 13386 01/26/2016 09197 EST. PATIENT, LEVEL IV Diagnosis: Essential (primary) hypertension[ICD10: I10] Diagnosis: Cutaneous abscess of face[ICD10: L02.01] Mishel Finn MD, [facility] CPT-4: 97931 12/21/2015 ([id number]) 66892 EST. P ATIENT, LEVEL III Diagnosis: Cutaneous abscess of groin[ICD10: L02.214] Diagnosis: Hypothyroidism, unspecified[ICD10: E03.9] Lynn Finn MD, [facility] CPT-4: 77247 10/12/2015 ([id number]) 47232 EST. P ATIENT, LEVEL III Diagnosis: Essential (primary) hypertension[ICD10: I10] Diagnosis: Hypothyroidism, unspecified[ICD10: E03.9] Diagnosis: Allergic rhinitis, unspecified[ICD10: J30.9] Lynn Finn MD, [facility] CPT-4: 36194 08/24/2015 ([id number]) 86435 EST. P ATIENT, LEVEL III Diagnosis: Skin infection[ICD9: 686.9] Damari Finn MD, [facility] CPT-4: 04415 06/01/2015 ([id number] 02965 EST. P ATIENT, LEVEL III Diagnosis: Hypothyroidism[ICD9: 244.9] Diagnosis: ESSENTIAL HYPERTENSION[ICD9: 401.9] Damari Finn MD, [facility] CPT- 4: 05447 05/21/2015 ([id number]) 25273 EST. P ATIENT, LEVEL III Diagnosis: Hypothyroidism[ICD9: 244.9] Diagnosis: Fingernail abnormalities[ICD9: 703.8] Lynn Finn MD, [facility] CPT-4: 64262 03/26/2015 ([id number]) 96008 EST. P ATIENT, LEVEL II Diagnosis: Hypothyroidism[ICD9: 244.9] Maritza Finn MD, [facility] CPT-4: 56141 03/11/2015 ([id number]) 24790 EST. P ATIENT, LEVEL IV Diagnosis: ESSENTIAL HYPERTENSION[ICD9: 401.9] Diagnosis: Low back pain[ICD9: 724.2] Diagnosis: Hypothyroidism[ICD9: 244.9] Damari Finn MD, [facility] CPT-4: 87428 12/11/2014 ([id number]) 37091 EST. P ATIENT, LEVEL IV Diagnosis: Hidradenitis suppurativa[ICD9: 705.83] Diagnosis: ESSENTIAL HYPERTENSION[ICD9: 401.9] Diagnosis: Low back pain[ICD9: 724.2] Diagnosis: Lumbar spinal stenosis[ICD9: 724.02] Diagnosis: HYPOTHYROIDISM[ICD9: 244.9] Damari Finn MD, [facility] CPT-4: 11291 09/18/2014 Office outpatient ne w 30 minutes Diagnosis: ESSENTIAL HYPERTENSION[ICD9: 401.9] Diagnosis: Hypothyroidism[ICD9: 244.9] Diagnosis: Low back pain[ICD9: 724.2] Lynn Finn MD, [facility] CPT- 4: 62106 07/31/2014 Plan of Care Planned Activity Notes [...] not resolve or if any worse 05/23/2019 Patient Education: Patient Medication Summary Completed [...] or concerns. 05/07/2019 Appointment: Mishel Balderrama WPtel: [address] [place], [place] [phone] (30 min) Complex 05/07/2019 Patient Education: Patient [...] or concerns. 04/29/2019 Appointment: Mishel Balderrama WPtel: [address] [place], [place] [phone] (30 min) Complex 04/29/2019 Patient Education: Patient Medication Summary Completed 04/29/2019 Appointment: Lynn Arenas WPtel: [phone] [phone] (30 min) Complex 04/23/2019 Visit Plan: Hypothyroidism -patient is having symptoms of over supplementation -check labs today Skin changes-patient used to see Dr Solitario but hasn't see anyone recently -recommend skin check with Dr Yamel boyd- stable- no change in current treatment 03/21/2019 Appointment: Lynn Arenas WPtel: [phone] [phone] (30 min) Complex 03/21/2019 Patient Education: Patient [...] medical practice. 01/22/2019 Appointment: Lynn Arenas WPtel: [facility] [phone] (30 min) Complex 01/22/2019 Patient Education: Patient Medication Summary Completed 01/22/2019 Patient Education: Back Pain Completed 01/22/2019 Appointment: Nurse Visit 11/21/2018 Patient Education: Patient Medication Summary Completed 11/21/2018 Patient Education: Hypertension Completed 11/21/2018 Visit Plan: Hypertension - well con francineed - okay to start off lisinopril/hctz for [...] as indicated 10/30/2018 Appointment: Lynn Arenas WPtel: [phone] [phone] [place] (30 min) Complex 10/30/2018 Patient Education: Patient Medication Summary Completed 10/30/2018 Patient Education: Hypertension Completed 10/30/2018 Patient Education: Back Pain Completed 10/30/2018 Appointment: Lynn Arenas WPtel: [phone] [phone] [place] (30 min) Complex 10/26/2018 Patient Education: Patient Medication Summary Completed 10/23/2018 Appointment: Lynn Arenas WPtel: [phone] [phone] [place] (15 min) Moderate 10/19/2018 [facility]ment[phone] [place] (15 min) Moderate 09/19/2018 Visit Plan: Sinusitis [...] times daily. 06/28/2018 Appointment: [facility]el[phone] ([facility] Complex 06/28/2018 Patient [...] to monitor. 04/04/2018 Appointment: Mishel Balderrama WPtel: [facility] (15 min) Moderate 04/04/2018 Patient Education: Patient Medication Summary Completed 04/04/2018 Visit Plan: Wound Instructions - Pt was instructed to keep the wound clean, wash with antibacterial soap, use triple antibiotic ointment, call if redness, pustular drainage, or any other acute concerns. 01/19/2018 Appointment: Lynn Arenas WPtel: [phone] [phone] (30 min) Complex 01/19/2018 Patient Education: Patient [...] acute concerns. 01/05/2018 Appointment: Lynn Arenas WPtel: [facility] [phone] (30 min) Complex 01/05/2018 Patient Education: Patient [...] or does not improve. 11/29/2017 Appointment: Mis[facility] Balderrama [facility]el[facility] [phone] [facility] [place] (30 min) Complex 11/29/2017 Patient Education: Patient [...] or does not improve. 10/25/2017 Appointment: Mis[facility] Balderrama [facility]Ptel[facility] [phone] [facility] [place] (30 min) Complex 10/25/2017 Patient Education: Patient [...] peripheral edema. 09/12/2017 Appointment: Mis[facility] Balderrama [facility]Ptel[facility] [phone] [facility] [place] (30 min) Complex 09/12/2017 Patient Education: Patient Medication Summary Completed 09/12/2017 Appointment: Lynn Arenas WPtel: [phone] [phone] [place] (30 min) Complex 06/27/2017 Visit Plan: [...] acute changes. 06/14/2017 Appointment: Mishel Balderrama [facility]Ptel: [phone] [facility] [place] (15 min) Moderate 06/14/2017 Patient Education: [...] acute changes 05/10/2017 Appointment: Mis[facility] Balderrama [facility]Ptel: [address] [facility] [place] (15 min) Moderate 05/10/2017 Patient Education: [...] changes. 04/19/2017 Appointment: Mis[facility] Balderrama [facility]el[facility] [phone] [facility] (15 min) Moderate 04/19/2017 Patient [...] on previous levels of control. Low back kjob-rjxuixg-gustzv tramadol for prn use 03/27/2017 Appointment: Lynn Arenas [facility]Ptel[facility] [phone] [phone] (30 min) Complex 03/27/2017 Patient Education: Patient [...] not improve. 01/26/2017 Appointment: [phone] (15 min) Moderate 01/26/2017 Patient Education: Patient [...] or concerns. 12/07/2016 Appointment: Mis[facility] Balderrama [facility]Ptel[facility] [phone] [facility] (15 min) Moderate 12/07/2016 Patient [...] as directed for dyspnea/persistent wheezing/asthma symptoms. 11/28/2016 Visit Plan: Asthma Exacerbation - A [...] is stable, monitor for acute changes. 11/28/2016 Appointment: Mishel Balderrama WPtel: [facility] [facility] (15 min) Moderate 11/28/2016 Patient Education: Patient Medication Summary Completed 11/28/2016 Appointment: Mishel Balderrama WPtel: [facility] [facility] (15 min) Moderate 11/24/2016 Visit Plan: Bronchitis [...] acute changes. 11/15/2016 Appointment: Mishel Balderrama WPtel: [facility] [facility] (30 min) Complex 11/15/2016 Patient Education: Patient [...] acute changes. 10/17/2016 Appointment: Mishel Balderrama [facility]Ptel: [phone] [facility] (30 min) Complex 10/17/2016 Patient Education: Patient Medication Summary Completed 10/17/2016 Patient Education: Obesity Completed 10/17/2016 Visit Plan: Hypertension - well cat trobibied - continue with current medications, continue with no added salt diet. Pt has been encouraged to exercise daily. The pt has been advised to call the office if there are any acute concerns about change in blood pressure readings at home. discussed labs - no change in medications. Back pain - prn tylenol 09/28/2016 Appointment: Damari Finn [facility]Ptel: [phone] [facility] (15 min) Moderate 09/28/2016 Patient Education: Patient [...] of control. 06/29/2016 Appointment: Lynn Arenas WPtel: [phone] [phone] [place] (15 min) Moderate 06/29/2016 Patient Education: Patient [...] for fluconazole 06/01/2016 Appointment: Damari Finn WPtel: [phone] [facility] (15 min) Moderate 06/01/2016 Patient Education: Patient Medication Summary Completed 06/01/2016 Patient Education: Obesity Completed 06/01/2016 Visit Plan: Cellulitis - continue w ith oral antibiotics as previously directed, return to clinic as previously directed, call for acute change in symptoms, worsening redness, warmth, discharge. 05/11/2016 Appointment: Damari Finn WPtel: [phone] [facility] (15 min) Moderate 05/11/2016 Patient Education: Patient [...] any concerns. 04/01/2016 Appointment: Lynn Arenas WPtel: [facility] [phone] (30 min) Complex 04/01/2016 Patient Education: Patient Medication Summary Completed 04/01/2016 Patient Education: Obesity Completed 04/01/2016 Appointment: Lynn Arenas WPtel: [facility] [phone] (30 min) Complex 03/29/2016 Visit Plan: Hypertension [...] levels of control. Low back pain-refill tramadol Gjgkh-fetxffmnpm-fuddaazc resolved 01/26/2016 Appointment: Lynn Arenas [facility]Ptel[facility] [phone] [phone] (30 min) Complex 01/26/2016 Patient Education: Patient Medication Summary Completed 01/26/2016 Patient Education: Obesity Completed 01/26/2016 Care Plan: BMI Above normal followup RADHA F-MGMT EDUC & TRAIN 1 PT Pending 01/26/2016 Care Plan: Referral Order SNOMED-CT : [id number] Pending 01/07/2016 Appointment: Dagoberto Lynn [facility]Ptel[phone] [phone] (15 min) Moderate 12/24/2015 Visit Plan: Hypertension [...] Medication Summary Completed 12/21/2015 Care Plan: Miracle LOAIZA Pending 12/21/2015 Visit Plan: cellulitis/abscess of g [...] months based on previous levels of control. A llergies - chronic - recommended pt to [...] nor improving. 06/01/2015 Appointment: Damari Finn WPtel: [facility] (15 min) Moderate 06/01/2015 Patient Education: Patient [...] refill tramadol 12/11/2014 Appointment: Damari Finn WPtel: [facility] [address] follow up 12/11/2014 Patient Education: Patient Medication Summary Completed 12/11/2014 Patient Education: Hypertension Completed 12/11/2014 Appointment: Damari Finn WPtel: [address] [place], [place] [phone] [place] [address] follow up 11/27/2014 Visit Plan: Hidradenitis Suppurativ [...] to get her back MRI done at [facility] in [place] as that is where her specialist will be once we get her an appt with one of the local Neurosurgeons. 09/18/2014 Appointment: Damari Finn WPtel: [phone] [facility] Follow up 09/18/2014 Patient Education: Patient Medication [...] as scheduled 07/31/2014 Appointment: Lynn Arenas [facility]Ptel: [phone] [phone] [place] New Patient 07/31/2014 Patient [...] or with any questions or concerns. . Brittle fingernail s-erythema of fingernails-nail sample clipped and sent for culture-suspect changes are due to thyroid illness-repeat thyroid labs in 6-8 weeks [facility] TO DAY CALL IF YOU NEED AN ANTIBIOTIC CHECK THYROID LABS GET LABS FROM URGENT [facility]ARE D[facility]WN ON MONDAY . 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 Low back velr-bsminek-jimigz tramadol for prn use claritin or zyrtec . Sinusitis - Pt [...] medication into affected eye four times daily. . Sinusitis - Pt has acute infection [...] or with any changes, questions, or concerns. Check thyroid on Feb. Will refill blood [...] to Dr. Daugherty. Will refer pt. . Hypertension - wel l controlled - [...] is worsening or does not improve. . Hypertension - wel l controlled - [...] months based on previous levels of control. will extend your pre dnisone. Increase the [...] is stable, monitor for acute changes. . Hypothyroidism - p t with chronic [...] not resolve or if any worse . Asthma Exacerbatio n - Asthma is [...] is stable, monitor for acute changes. . Edema - Right leg noticeably more [...] is stable, monitor for acute changes . Wound Instructions - Pt was instructed [...] Chronic back pain - refill tramadol . Sinusitis - Pt has acute infection - pain in face, maxillary region, Pt informed to use decongestant, RX given to patient, sinus rinses also recommended. Call if symptoms do not show improvement. Dermatitis around lips - will send RX - pt is to notify clinic if symptoms do not improve, or with any concerns. Start zyrtec - one d aily Steroid shot today in office Mucinex as needed for congestion cough syrup Let me know if it is not improving. . 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 Start zyrtec - one d aily Steroid shot today in office Mucinex as needed for congestion cough syrup Let me know if it is not improving. . 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 . 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 CHECK LABS AND UA APPOINTMENT WITH DR WAGNER FOR SKIN CHECK . Hypothyroidism -patient is having symp toms of over supplementation -check labs today Skin changes-patient used to see Dr Solitario but hasn't see anyone recently - recommend skin check with Dr Wagner Asthma- stable- no change in current treatment . Skin infection - r ecommended treatment with oral antibiotic and topical antibiotic. Pt to call if nor improving. . Cellulitis - oleg nue with oral antibiotics as previously directed, return to clinic as previously directed, call for acute change in symptoms, worsening redness, warmth, discharge. Declined Procedure: ([id number]) FLU VAC NO PRSV 4 JUSTYNA 3 YRS+; Declined Reason: refused Physical therapy at [facility] . Hypertension - well controlled - [...] up with Dr Lincoln as scheduled . Low back pain, lef t hip pain, left buttock pain - the patient was instructed in appropriate posture, need for weight loss to alleviate abdominal obesity that is worsening the patient's back pain.. The pt is to use prn antiinflammatories to manage acute pain. The patient is to call the office if the pain is worsening or does not improve. . Edema - pt has bee n [...] to further attempt to reduce peripheral edema. bactroban ointment t o sore twice daily x 10 days also use the bactoban ointment to nares twice daily x 5 days . cellulitis/abscess of groin-use bactro ban ointment as needed -keep groin clean and dry-treat nares with bactroban ointment twice daily-call for acute s/s of infection Hypothyroidism-check dose at home-should be 175mcg daily and repeat labs in 3 months tramadol-Dillons . Hypertension - well controlled - [...] levels of control. Low back pain-refill tramadol Mezfn-emasoelidy-equnwinq resolved . Hypertension - wel l controlled - continue with current medications, continue with no added salt diet. Pt has been encouraged to exercise daily. The pt has been advised to call the office if there are any acute concerns about change in blood pressure readings at home. discussed labs - no change in medications. Back pain - prn tylenol restart lisinopril/h CTZ - this will help [...] to get her back MRI done at [facility] in [place] as that is where her specialist will [...] PT FOR LOW BACK PAIN -[facility] . Hypertension - well controlled - okay [...]
--- OUTSIDE RECORDS SUMMARY | 2020-02-20 18:33 | XMS REPORT | CCD ---
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 ICD-10: [...] ICD-9: 782.8 ICD-10: R23.4 Active 03/21/2019 Unknown Essential (primary) hypertension ICD-9: 401.9 ICD-10: I10 Active 07/31/2014 Unknown Hypothyroidism, unsp ecified ICD-9: 244.9 ICD-10: E03.9 Active 07/31/2014 Unknown Mild intermittent as thma, uncomplicated ICD-9: 493.90 ICD-10: J45.20 Active 01/22/2019 Unknown Low back pain ICD-9: 724.2 ICD-10: M54.5 Active 04/04/2016 Unknown Other specified hypo thyroidism ICD-9: 244.8 ICD-10: E03.8 Active 06/28/2016 Unknown Acute recurrent maxi llary sinusitis ICD-9: [...] Condition Codes Effectiv e Dates Condition Status 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 ICD-10: [...] texture ICD-9: 782.8 ICD-10: R23.4 03/21/2019 Active Essential (primary) hypertension ICD-9: 401.9 ICD-10: I10 07/31/2014 Active Hypothyroidism, unsp ecified ICD-9: 244.9 ICD-10: E03.9 07/31/2014 Active Mild intermittent as thma, uncomplicated ICD-9: 493.90 ICD-10: J45.20 01/22/2019 Active Low back pain ICD-9: 724.2 ICD-10: M54.5 04/04/2016 Active Other specified hypo thyroidism ICD-9: 244.8 ICD-10: E03.8 06/28/2016 Active Acute recurrent maxi llary sinusitis ICD-9: [...] Fill Instructions lorazepam 1 mg tablet RxNorm: 814157 Tablet(s) TAKE TWO TABLETS BY MOUTH AT B EDTIME NEEDED FOR INSOMNIA AND ONE TABLET DAILY NEEDED ANXIETY 05/07/2019 07/05/2019 Active valacyclovir 1 gram tablet RxNorm: 705993 1 Tablet(s) PO TID 05/07/2019 05/13/2019 Active Keflex 500 mg capsule RxNorm: 935873 1 Capsule(s) PO TID 05/07/2019 05/13/2019 Active tramadol 50 mg tablet RxNorm: 943721 1 Tablet(s) PO Q4 PRN as needed for pain 05/06/2019 06/14/2019 Ac tive tramadol 50 mg tablet RxNorm: 411497 TAKE ONE TABLET BY MOUTH EVERY 6 HOURS A S NEEDED FOR PAIN 05/06/2019 06/04/2019 Active prednisone 20 mg tablet RxNorm: 581136 1 Tablet(s) PO BID x 2 days, then 1 pill daily x 3 days, then 1/2 pill every other day x 3 doses. 04/29/2019 No Stop Date Active tramadol 50 mg tablet RxNorm: 337218 1 Tablet(s) PO Q6 PRN as needed for pain 04/09/2019 05/06/2019 In active levothyroxine 125 mc g tablet RxNorm: 755913 1 Tablet(s) PO daily TAKE ONE TABLET BY MOUTH DAILY ON AN EMPTY STOMACH 03/25/2019 06/16/2020 Active lorazepam 1 mg tablet RxNorm: 466963 Tablet(s) TAKE TWO TABLETS BY MOUTH AT B EDTIME NEEDED FOR INSOMNIA AND ONE TABLET DAILY NEEDED ANXIETY 03/15/2019 05/06/2019 Inactive tramadol 50 mg tablet RxNorm: 018222 1 Tablet(s) PO Q4 PRN as needed for pain 03/15/2019 04/08/2019 In active tramadol 50 mg tablet RxNorm: 327082 1 Tablet(s) PO Q4 PRN as needed for pain 02/20/2019 03/14/2019 In active lorazepam 1 mg tablet RxNorm: 972201 Tablet(s) TAKE TWO TABLETS BY MOUTH AT B EDTIME NEEDED FOR INSOMNIA AND ONE TABLET DAILY NEEDED ANXIETY 01/04/2019 03/03/2019 Inactive Keflex 500 mg capsule RxNorm: 879233 1 Capsule(s) PO TID 12/05/2018 12/11/2018 Inactive tramadol 50 mg tablet RxNorm: 304850 1 Tablet(s) PO Q4 PRN as needed for pain 12/05/2018 01/12/2019 In active ciprofloxacin 0.3 % eye drops RxNorm: 536620 INSTILL TWO DROPS TO THE AFFECTED EYE(S) THREE TIMES A DAY 11/23/2018 12/25/2018 Inactive ProAir HFA 90 mcg/ac tuation aerosol inhaler RxNorm: 2722218 1-2 Puff(s) INH Q4 P RN INHALE 1 TO 2 PUFFS FOUR TIMES A DAY NEEDED FOR ASTHMA 10/30/2018 01/27/2019 Inactive levothyroxine 137 mc g tablet RxNorm: 830478 1 Tablet(s) PO daily TAKE ONE TABLET BY MOUTH DAILY ON AN EMPTY STOMACH 10/30/2018 03/24/2019 Inactive tramadol 50 mg tablet RxNorm: 905933 1 Tablet(s) PO Q4 PRN as needed for pain 10/29/2018 12/04/2018 In active levothyroxine 125 mc g tablet RxNorm: 205528 1 Tablet(s) PO daily TAKE ONE TABLET BY MOUTH DAILY ON AN EMPTY STOMACH 09/06/2018 10/29/2018 Inactive lorazepam 1 mg tablet RxNorm: 708261 Tablet(s) TAKE TWO TABLETS BY MOUTH AT B EDTIME NEEDED FOR INSOMNIA AND ONE TABLET DAILY NEEDED ANXIETY 09/06/2018 11/02/2018 Inactive tramadol 50 mg tablet RxNorm: 820524 1 Tablet(s) PO Q4 PRN as needed for pain 09/06/2018 10/15/2018 In active tramadol 50 mg tablet RxNorm: 631637 1 Tablet(s) PO Q4 PRN as needed for pain 07/06/2018 08/14/2018 In active ciprofloxacin 0.3 % eye drops RxNorm: 757260 2 Drop(s) ophthalmic (eye) TID 06/28/2018 07/07/2018 In active lorazepam 1 mg tablet RxNorm: 529691 Tablet(s) TAKE TWO TABLETS BY MOUTH AT B EDTIME NEEDED FOR INSOMNIA AND ONE TABLET DAILY NEEDED ANXIETY 06/28/2018 08/26/2018 Inactive doxycycline hyclate 100 mg tablet RxNorm: 2406611 1 Tablet(s) PO BID 06/28/2018 07/04/2018 Inactive tramadol 50 mg tablet RxNorm: 603858 1 Tablet(s) PO Q4 PRN as needed for pain 06/13/2018 07/05/2018 In active lorazepam 1 mg tablet RxNorm: 880479 Tablet(s) TAKE TWO TABLETS BY MOUTH AT B EDTIME NEEDED FOR INSOMNIA AND ONE TABLET DAILY NEEDED ANXIETY 05/23/2018 06/27/2018 Inactive tramadol 50 mg tablet RxNorm: 388598 1 Tablet(s) PO Q4 PRN as needed for pain 05/23/2018 06/12/2018 In active levothyroxine 125 mc g tablet RxNorm: 687494 Tablet(s) TAKE ONE TA BLET BY MOUTH DAILY ON AN EMPTY STOMACH 05/23/2018 09/05/2018 Inactive tramadol 50 mg tablet RxNorm: 606607 1 Tablet(s) PO Q4 PRN as needed for pain 05/17/2018 05/22/2018 In active levothyroxine 125 mc g tablet RxNorm: 945453 TAKE ONE TABLET BY MO UTH DAILY 05/15/2018 06/27/2018 In active levothyroxine 125 mc g tablet RxNorm: 760271 TAKE ONE TABLET BY MO UT DAILY 05/15/2018 06/27/2018 In active tramadol 50 mg tablet RxNorm: 767910 1 Tablet(s) PO Q4 PRN as needed for pain 04/30/2018 05/16/2018 In active Advair Diskus 100 mc g-50 mcg/dose powder for inhalation RxNorm: 7381309 1 Puff(s) INH BID 04/06/2018 01/21/2019 Inactive Symbicort 80 mcg-4.5 mcg/actuation HFA aerosol inhaler RxNorm: 2867169 2 Puff(s) INH BID 04/06/2018 01/21/2019 Inactive Advair Diskus 250 mc g-50 mcg/dose powder for inhalation RxNorm: 1947337 1 Puff(s) INH BID 04/05/2018 09/01/2018 Inactive Zyrtec 10 mg tablet RxNorm: 2952315 1 Tablet(s) PO daily x1 week then PRN 04/05/2018 08/02/2018 In active lisinopril 20 mg-hyd rochlorothiazide 25 mg tablet RxNorm: 327023 Tablet(s) TAKE ONE TABLET BY MOUTH DAILY 04/05/2018 10/29/2018 Inactive Zyrtec 10 mg tablet RxNorm: 9548715 1 Tablet(s) PO daily 04/04/2018 05/03/2018 Inactive tramadol 50 mg tablet RxNorm: 524241 1 Tablet(s) PO Q4 PRN as needed for pain 03/13/2018 04/21/2018 In active lorazepam 1 mg tablet RxNorm: 706918 Tablet(s) TAKE TWO TABLETS BY MOUTH AT B EDTIME NEEDED FOR INSOMNIA AND ONE TABLET DAILY NEEDED ANXIETY 03/02/2018 04/30/2018 Inactive levothyroxine 125 mc g tablet RxNorm: 615519 1 Tablet(s) PO daily 02/06/2018 05/06/2018 Inactive levothyroxine 125 mc g tablet RxNorm: 655400 TAKE ONE TABLET BY [facility] DAILY ON AN EMPTY STOMACH 02/06/2018 05/22/2018 Inactive tramadol 50 mg tablet RxNorm: 694035 1 Tablet(s) PO Q4 PRN as needed for pain 01/26/2018 03/06/2018 In active lorazepam 1 mg tablet RxNorm: 719341 Tablet(s) TAKE TWO TABLETS BY MOUTH AT B EDTIME NEEDED FOR INSOMNIA AND ONE TABLET DAILY NEEDED ANXIETY 01/23/2018 06/27/2018 Inactive Symbicort 80 mcg-4.5 mcg/actuation HFA aerosol inhaler RxNorm: 7137288 INH 01/05/2018 06/27/2018 In active tramadol 50 mg tablet RxNorm: 743597 1 Tablet(s) PO Q4 PRN as needed for pain 01/04/2018 01/25/2018 In active Advair Diskus 250 mc g-50 mcg/dose powder for inhalation RxNorm: 0086789 1 Puff(s) INH BID 11/29/2017 03/28/2018 Inactive hydrochlorothiazide 12.5 mg tablet RxNorm: 239858 1 Tablet(s) PO daily 11/29/2017 12/28/2017 In active tramadol 50 mg tablet RxNorm: 505044 1 Tablet(s) PO Q4 PRN as needed for pain 11/23/2017 01/01/2018 In active tramadol 50 mg tablet RxNorm: 828242 1 Tablet(s) PO Q4 PRN as needed for pain 10/06/2017 11/14/2017 In active lorazepam 1 mg tablet RxNorm: 316292 Tablet(s) TAKE TWO TABLETS BY MOUTH AT B EDTIME NEEDED FOR INSOMNIA AND ONE TABLET DAILY NEEDED ANXIETY 09/12/2017 06/27/2018 Inactive tramadol 50 mg tablet RxNorm: 151204 1 Tablet(s) PO Q4 PRN as needed for pain 09/12/2017 10/05/2017 In active tramadol 50 mg tablet RxNorm: 535352 1 Tablet(s) PO Q4 PRN as needed for pain 08/15/2017 09/11/2017 In active tramadol 50 mg tablet RxNorm: 674338 1 Tablet(s) PO Q4 PRN as needed for pain 06/29/2017 08/07/2017 In active ProAir HFA 90 mcg/ac tuation aerosol inhaler RxNorm: 4578679 INHALE 1 TO 2 PUFFS FOUR TIMES A DAY NEEDED FOR ASTHMA 06/14/2017 11/10/2017 Inactive prednisone 20 mg tablet RxNorm: 272686 1 Tablet(s) PO BID x 2 days, then 1 pill daily x 3 days, then 1/2 pill every other day x 3 doses. 06/14/2017 09/11/2017 Inactive Kenalog 40 mg/mL madhavi pension for injection RxNorm: 1007895 1 Milliliter(s) Inj 06/14/2017 06/14/2017 In active Zyrtec 10 mg tablet RxNorm: 0012882 1 Tablet(s) PO daily 06/14/2017 07/13/2017 Inactive tramadol 50 mg tablet RxNorm: 663759 1 Tablet(s) PO Q4 PRN as needed for pain 06/08/2017 06/27/2017 In active [SAVINGS FOR UNINSURED PATIENTS -- BIN:0 99234, PCN: ASPROD1, Group: [id number], ID# [id number], Process claim through [employer]el[employer], for questions: . THIS IS NOT INSURANCE.] tramadol 50 mg tablet RxNorm: 389293 1 Tablet(s) PO Q4 PRN as needed for pain 05/16/2017 06/04/2017 In active [SAVINGS FOR UNINSURED PATIENTS -- BIN:0 08395, PCN: ASPROD1, Group: [id number], ID# [id number], Process claim through [employer]el[employer], for questions: . THIS IS NOT INSURANCE.] lorazepam 1 mg tablet RxNorm: 254110 Tablet(s) TAKE TWO TABLETS BY MOUTH AT B EDTIME NEEDED FOR INSOMNIA AND ONE TABLET DAILY NEEDED ANXIETY 05/16/2017 08/13/2017 Inactive Lasix 20 mg tablet RxNorm: 220094 1 Tablet(s) PO daily 05/10/2017 05/09/2017 Inactive Lasix 20 mg tablet RxNorm: 190090 1 Tablet(s) PO daily 05/10/2017 05/12/2017 Inactive potassium chloride E R 10 mEq tablet,extended release RxNorm: 681677 1 Tablet(s) PO daily while on the lasix 05/10/2017 05/09/2017 Inactive potassium chloride E R 10 mEq tablet,extended release RxNorm: 683915 1 Tablet(s) PO daily while on the lasix 05/10/2017 05/12/2017 Inactive prednisone 20 mg tablet RxNorm: 889297 1 Tablet(s) PO BID x 2 days, then 1 pill daily x 3 days, then 1/2 pill every other day x 3 doses. 04/19/2017 06/13/2017 Inactive Zithromax Z-Linus 250 mg tablet RxNorm: 361855 1 Tablet(s) PO UD 04/13/2017 06/28/2017 Inactive prednisone 20 mg tablet RxNorm: 570052 1 Tablet(s) PO BID 04/13/2017 04/17/2017 Inactive levothyroxine 125 mc g tablet RxNorm: 624187 1 Tablet(s) PO daily 04/11/2017 10/07/2017 Inactive tramadol 50 mg tablet RxNorm: 240782 1 Tablet(s) PO Q4 PRN as needed for pain 03/27/2017 04/15/2017 In active [SAVINGS FOR UNINSURED PATIENTS -- BIN:0 13038, PCN: ASPROD1, Group: [id number], ID# [id number], Process claim through [employer]el[employer], for questions: . THIS IS NOT INSURANCE.] Kenalog 40 mg/mL madhavi pension for injection RxNorm: 0981680 1 Milliliter(s) Inj 03/27/2017 03/27/2017 In active tramadol 50 mg tablet RxNorm: 102497 1 Tablet(s) PO Q4H as needed for pain 03/09/2017 03/26/2017 In active [SAVINGS FOR UNINSURED PATIENTS -- BIN:0 42641, PCN: ASPROD1, Group: [id number], ID# [id number], Process claim through [employer]el[employer], for questions: . THIS IS NOT INSURANCE.] lisinopril 20 mg-hyd rochlorothiazide 25 mg tablet RxNorm: 320918 TAKE ONE TABLET BY MOUTH DAILY 01/29/2017 11/21/2017 Inactive lorazepam 1 mg tablet RxNorm: Tablet(s) TAKE TWO TABLETS BY MOUTH AT B EDTIME NEEDED FOR INSOMNIA AND ONE TABLET DAILY NEEDED ANXIETY 01/05/2017 04/04/2017 Inactive tramadol 50 mg tablet RxNorm: 075172 1 Tablet(s) PO Q4H as needed for pain 12/07/2016 01/13/2017 In active [SAVINGS FOR UNINSURED PATIENTS -- BIN:0 93430, PCN: ASPROD1, Group: [id number], ID# [id number], Process claim through [employer]el[employer], for questions: . THIS IS NOT INSURANCE.] Kenalog 40 mg/mL madhavi pension for injection RxNorm: 9504249 Milliliter(s) Inj 12/07/2016 12/07/2016 In active nystatin 100,000 uni t/mL oral suspension RxNorm: 647821 4 Milliliter(s) PO QI D 12/07/2016 12/11/2016 In active Francia-D 12 Hour 60 mg-120 mg tablet,extended release RxNorm: 866906 1 Tablet(s) PO BID 12/07/2016 01/11/2017 Inactive lorazepam 1 mg tablet RxNorm: 539908 Tablet(s) TAKE TWO TABLETS BY MOUTH AT B EDTIME AND ONE TABLET DAILY NEEDED 12/07/2016 01/04/2017 Inactive (Response to an electronic controlled substance refill request - RxReferenceNumber: [id number]) albuterol sulfate 2. 5 mg/3 mL (0.083 %) solution for nebulization RxNorm: 675282 3 Milliliter(s) INH TID 11/29/2016 11/28/2016 Inactive prednisone 10 mg tablet RxNorm: 764059 Tablet(s) PO UD 11/29/2016 12/05/2016 Inactive 6,5,4,3,2,1 doxycycline hyclate 100 mg tablet RxNorm: 124389 1 Tablet(s) PO BID 11/29/2016 12/04/2016 Inactive albuterol sulfate 2. 5 mg/3 mL (0.083 %) solution for nebulization RxNorm: 836853 3 Milliliter(s) INH TID 11/29/2016 12/03/2016 Inactive Kenalog 40 mg/mL madhavi pension for injection RxNorm: 3377601 Milliliter(s) Inj 11/28/2016 11/28/2016 In active tramadol 50 mg tablet RxNorm: 297071 1 Tablet(s) PO Q4H as needed for pain 11/15/2016 12/06/2016 In active [SAVINGS FOR UNINSURED PATIENTS -- BIN:0 50167, PCN: ASPROD1, Group: [id number], ID# [id number], Process claim through [employer]el[employer], for questions: . THIS IS NOT INSURANCE.] prednisone 20 mg tablet RxNorm: 368710 2 Tablet(s) PO daily 11/15/2016 11/19/2016 Inactive Advair Diskus 100 mc g-50 mcg/dose powder for inhalation RxNorm: 7155470 1 Puff(s) INH BID 11/15/2016 06/11/2017 Inactive ProAir HFA 90 mcg/ac tuation aerosol inhaler RxNorm: 346939 INHALE 1 TO 2 PUFFS F OUR TIMES A DAY NEEDED FOR ASTHMA 11/15/2016 04/13/2017 Inactive Zithromax Z-Linus 250 mg tablet RxNorm: 053642 1 Tablet(s) PO UD 11/15/2016 11/27/2016 Inactive Zyrtec 10 mg tablet RxNorm: 9551317 1 Tablet(s) PO daily 10/17/2016 11/15/2016 Inactive Keflex 500 mg capsule RxNorm: 751888 1 Capsule(s) PO TID 10/17/2016 10/23/2016 Inactive prednisone 10 mg tablet RxNorm: 493660 Tablet(s) PO UD 10/17/2016 11/28/2016 Inactive 6,5,4,3,2,1 tramadol 50 mg tablet RxNorm: 212136 1 Tablet(s) PO Q4H as needed for pain 09/28/2016 11/06/2016 In active [SAVINGS FOR UNINSURED PATIENTS -- BIN:0 16835, PCN: ASPROD1, Group: [id number], ID# [id number], Process claim through [employer]elks, for questions: . THIS IS NOT INSURANCE.] ProAir HFA 90 mcg/ac tuation aerosol inhaler RxNorm: 124599 INHALE 1 TO 2 PUFFS F OUR TIMES A DAY NEEDED FOR ASTHMA 09/15/2016 11/14/2016 Inactive doxycycline hyclate 100 mg tablet RxNorm: 691288 1 Tablet(s) PO BID 09/15/2016 09/24/2016 Inactive doxycycline hyclate 100 mg tablet RxNorm: 858281 1 Tablet(s) PO BID 07/29/2016 08/07/2016 Inactive tramadol 50 mg tablet RxNorm: 839980 1 Tablet(s) PO Q4H as needed for pain 07/29/2016 09/06/2016 In active [SAVINGS FOR UNINSURED PATIENTS -- BIN:0 90859, PCN: ASPROD1, Group: [id number], ID# [id number], Process claim through [employer]elks, for questions: . THIS IS NOT INSURANCE.] lorazepam 1 mg tablet RxNorm: 754105 Tablet(s) TAKE TWO TABLETS BY MOUTH AT B EDTIME AND ONE TABLET DAILY NEEDED 07/29/2016 10/26/2016 Inactive (Response to an electronic controlled substance refill request - RxReferenceNumber: [id number]) levothyroxine 125 mc g tablet RxNorm: 748172 1 Tablet(s) PO daily 06/29/2016 06/29/2016 Inactive levothyroxine 137 mc g tablet RxNorm: 284394 1 Tablet(s) PO daily 06/29/2016 12/25/2016 Inactive ketoconazole 2 % [facility] Rx[place]: 575612 1 Application TOP BID 06/29/2016 07/03/2016 Inactive tramadol 50 mg tablet RxNorm: 965882 1 Tablet(s) PO Q4H as needed for pain 06/16/2016 07/25/2016 In active [SAVINGS FOR UNINSURED PATIENTS -- BIN:0 62823, PCN: ASPROD1, Group: [id number], ID# [id number], Process claim through 46elks, for questions: . THIS IS NOT INSURANCE.] Bactroban 2 % topica l ointment RxNorm: 263887 APPLY TO AFFECTED ARE A(S) TWO TIMES A DAY 06/16/2016 04/16/2017 Inactive fluconazole 150 mg t ablet RxNorm: 783832 1 Tablet(s) PO daily 06/01/2016 06/05/2016 Inactive gentamicin 0.1 % top ical ointment RxNorm: 548501 1 Application TOP QID 05/12/2016 05/25/2016 In active metronidazole 500 mg tablet RxNorm: 108086 1 Tablet(s) PO TID 05/11/2016 05/24/2016 Inactive gentamicin 0.1 % top ical ointment RxNorm: 041509 1 Application TOP QID 05/11/2016 05/11/2016 In active doxycycline hyclate 100 mg tablet RxNorm: 699480 1 Tablet(s) PO BID 05/11/2016 05/24/2016 Inactive lorazepam 1 mg tablet RxNorm: 975761 Tablet(s) TAKE TWO TABLETS BY MOUTH AT B EDTIME AND ONE TABLET DAILY NEEDED 05/02/2016 07/28/2016 Inactive (Response to an electronic controlled substance refill request - RxReferenceNumber: [id number]) Diflucan 150 mg tablet RxNorm: 421927 1 Tablet(s) PO daily x5 days then 1 x we ekly x 4 weeks. 05/02/2016 04/10/2017 Inactive Diflucan 150 mg tablet RxNorm: 199043 1 Tablet(s) PO every other day 04/19/2016 04/28/2016 In active Diflucan 150 mg tablet RxNorm: 875958 1 Tablet(s) PO every other day 04/19/2016 04/18/2016 In active Diflucan 150 mg tablet RxNorm: 070665 1 Tablet(s) PO daily 04/05/2016 04/11/2016 Inactive mupirocin 2 % topica l ointment RxNorm: 798873 1 Application TOP BID 04/05/2016 05/04/2016 Inactive tramadol 50 mg tablet RxNorm: 904143 1 Tablet(s) PO Q4H as needed for pain 04/05/2016 05/14/2016 In active [SAVINGS FOR UNINSURED PATIENTS -- BIN:0 06157, PCN: ASPROD1, Group: [id number], ID# [id number], Process claim through 46elks, for questions: . THIS IS NOT INSURANCE.] prednisone 10 mg tablet RxNorm: 433081 Tablet(s) PO UD 04/01/2016 09/26/2016 Inactive 6,5,4,3,2,1 levothyroxine 137 mc g tablet RxNorm: 762825 1 Tablet(s) PO daily 03/21/2016 03/20/2016 Inactive levothyroxine 137 mc g tablet RxNorm: 266451 1 Tablet(s) PO daily 03/21/2016 06/28/2016 Inactive Advair Diskus 100 mc g-50 mcg/dose powder for inhalation RxNorm: 9730629 1 Puff(s) INH BID 01/26/2016 05/24/2016 Inactive tramadol 50 mg tablet RxNorm: 135689 1 Tablet(s) PO Q4H as needed for pain 01/26/2016 03/05/2016 In active [SAVINGS FOR UNINSURED PATIENTS -- BIN:0 75690, PCN: ASPROD1, Group: [id number], ID# [id number], Process claim through 46elks, for questions: . THIS IS NOT INSURANCE.] Bactroban 2 % topica l ointment RxNorm: 700036 APPLY TO AFFECTED ARE A(S) TWO TIMES A DAY 12/22/2015 12/31/2015 Inactive Bactrim DS 800 mg-16 0 mg tablet RxNorm: 057865 TAKE ONE TABLET BY [facility] TWICE A DAY 12/22/2015 04/18/2016 In active Bactrim DS 800 mg-16 0 mg tablet RxNorm: 465367 1 Tablet(s) PO BID 12/21/2015 01/21/2019 Inactive lisinopril 20 mg-hyd rochlorothiazide 25 mg tablet RxNorm: 635469 1 Tablet(s) PO daily 12/21/2015 06/17/2016 Inactive [SAVINGS FOR UNINSURED PATIENTS -- BIN:0 92777, PCN: ASPROD1, Group: [id number], ID# [id number], Process claim through 46elks, for questions: . THIS IS NOT INSURANCE.] tramadol 50 mg tablet RxNorm: 608064 1 Tablet(s) PO Q4H as needed for pain 12/03/2015 01/11/2016 In active [SAVINGS FOR UNINSURED PATIENTS -- BIN:0 56299, PCN: ASPROD1, Group: [id number], ID# [id number], Process claim through 46elks, for questions: . THIS IS NOT INSURANCE.] lorazepam 1 mg tablet RxNorm: 501889 Tablet(s) TAKE TWO TABLETS BY MOUTH AT B EDTIME AND ONE TABLET DAILY NEEDED 11/26/2015 06/27/2018 Inactive (Response to an electronic controlled substance refill request - RxReferenceNumber: [id number]) Bactrim DS 800 mg-16 0 mg tablet RxNorm: 482365 1 Tablet(s) PO BID 11/25/2015 12/04/2015 Inactive levothyroxine 150 mc g tablet RxNorm: 888987 1 Tablet(s) PO daily 11/25/2015 03/20/2016 Inactive Bactroban 2 % topica l ointment RxNorm: 995180 1 Application TOP BID 10/12/2015 10/21/2015 Inactive Bactrim DS 800 mg-16 0 mg tablet RxNorm: 162167 1 Tablet(s) PO BID 09/07/2015 09/06/2015 Inactive Bactrim DS 800 mg-16 0 mg tablet RxNorm: 348876 1 Tablet(s) PO BID 09/07/2015 09/16/2015 Inactive lorazepam 1 mg tablet RxNorm: 919998 Tablet(s) TAKE TWO TABLETS BY MOUTH AT B EDTIME AND ONE TABLET DAILY NEEDED 08/28/2015 11/24/2015 Inactive (Response to an electronic controlled substance refill request - RxReferenceNumber: [id number]) levothyroxine 175 mc g tablet RxNorm: 463355 1 Tablet(s) PO daily 08/24/2015 11/24/2015 Inactive tramadol 50 mg tablet RxNorm: 454208 1 Tablet(s) PO Q4H as needed for pain 08/24/2015 09/11/2017 In active [SAVINGS FOR UNINSURED PATIENTS -- BIN:0 64236, PCN: ASPROD1, Group: [id number], ID# [id number], Process claim through [employer], for questions: . THIS IS NOT INSURANCE.] lisinopril 20 mg-hyd rochlorothiazide 25 mg tablet RxNorm: 425511 1 Tablet(s) PO daily TAKE 1 TABLET BY MOUTH DAILY 08/24/2015 06/27/2018 Inactive ProAir HFA 90 mcg/ac tuation aerosol inhaler RxNorm: 476399 1-2 Puff(s) INH PRN I NHALE ONE TO TWO PUFFS BY MOUTH FOUR TIMES A DAY NEEDED FOR ASTHMA 08/24/2015 12/01/2015 In active ProAir HFA 90 mcg/ac tuation aerosol inhaler RxNorm: 6168968 INHALE ONE TO TWO PU FFS BY MOUTH FOUR TIMES A DAY NEEDED FOR ASTHMA 08/17/2015 08/23/2015 Inactive Advair Diskus 250 mc g-50 mcg/dose powder for inhalation RxNorm: 6876360 1 Puff(s) INH BID 07/20/2015 07/19/2015 Inactive Advair Diskus 250 mc g-50 mcg/dose powder for inhalation RxNorm: 7561166 1 Puff(s) INH BID 07/20/2015 11/16/2015 Inactive tramadol 50 mg tablet RxNorm: 895733 1 Tablet(s) PO Q4H as needed for pain 07/10/2015 08/17/2015 In active [SAVINGS FOR UNINSURED PATIENTS -- BIN:0 66835, PCN: ASPROD1, Group: [id number], ID# [id number], Process claim through 46elks, for questions: . THIS IS NOT INSURANCE.] Zithromax Z-Linus 250 mg tablet RxNorm: 894283 1 Tablet(s) PO UD 07/10/2015 01/18/2016 Inactive Keflex 500 mg capsule RxNorm: 234469 1 Capsule(s) PO TID 06/01/2015 06/07/2015 Inactive mupirocin 2 % topica l ointment RxNorm: 478949 1 Application TOP TID 06/01/2015 06/10/2015 Inactive lisinopril 20 mg-hyd rochlorothiazide 25 mg tablet RxNorm: 751404 TAKE 1 TABLET BY MOUT H DAILY 05/30/2015 08/23/2015 Inactive lisinopril 20 mg-hyd rochlorothiazide 25 mg tablet RxNorm: 879555 1 Tablet(s) PO daily 05/29/2015 11/24/2015 Inactive [SAVINGS FOR UNINSURED PATIENTS -- BIN:0 76618, PCN: ASPROD1, Group: [id number], ID# [id number], Process claim through [employer], for questions: . THIS IS NOT INSURANCE.] lorazepam 1 mg tablet RxNorm: 482557 Tablet(s) TAKE TWO TABLETS BY MOUTH AT B EDTIME AND ONE TABLET DAILY NEEDED 04/17/2015 07/13/2015 Inactive (Response to an electronic controlled substance refill request - RxReferenceNumber: [id number]) levothyroxine 200 mc g tablet RxNorm: 759498 1 Tablet(s) PO daily 03/12/2015 08/23/2015 Inactive [SAVINGS FOR UNINSURED PATIENTS -- BIN:0 [id number], PCN: [id number], Group: [id number], ID# [id number], Process claim through [employer], for questions: . THIS IS NOT INSURANCE.] lisinopril 20 mg-hyd rochlorothiazide 25 mg tablet RxNorm: 672157 1 Tablet(s) PO daily 03/11/2015 05/28/2015 Inactive [SAVINGS FOR UNINSURED PATIENTS -- BIN:0 [id number], PCN: [id number], Group: [id number], ID# [id number], Process claim through [employer], for questions: . THIS IS NOT INSURANCE.] levothyroxine 175 mc g tablet RxNorm: 631667 1 Tablet(s) PO daily 03/09/2015 03/11/2015 Inactive recheck blood in 3 months- THIS IS CORRE CT DOSAGE levothyroxine 175 mc g tablet RxNorm: 988323 1 Tablet(s) PO daily 03/09/2015 03/08/2015 Inactive recheck blood in 3 months levothyroxine 150 mc g tablet RxNorm: 475851 1 Tablet(s) PO daily 03/09/2015 03/08/2015 Inactive recheck blood in 3 months lorazepam 1 mg tablet RxNorm: 629268 TAKE TWO TABLETS BY MOUTH AT BEDTIME AND ONE TABLET DAILY NEEDED 12/25/2014 01/22/2015 Inactive (Response to an electronic controlled substance refill request - RxReferenceNumber: [id number]) lorazepam 1 mg tablet RxNorm: 915354 Tablet(s) TAKE TWO TABLETS BY MOUTH EVER Y NIGHT AT BEDTIME AND TAKE ONE TABLET BY MOUTH DAILY NEEDED 12/23/2014 12/25/2014 Inactive (Response to an electronic controlled norht bstance refill request - RxReferenceNumber: [id number]) levothyroxine 150 mc g tablet RxNorm: 984015 1 Tablet(s) PO daily 12/12/2014 03/08/2015 Inactive recheck blood in 3 months Diflucan 150 mg tablet RxNorm: 479802 1 Tablet(s) PO every other day (start af ter finished with Cipro) 11/17/2014 08/23/2015 Inactive tramadol 50 mg tablet RxNorm: 891196 1 Tablet(s) PO Q4H as needed for pain 11/10/2014 12/17/2014 In active [SAVINGS FOR UNINSURED PATIENTS -- BIN:0 13375, PCN: ASPROD1, Group: [id number], ID# [id number], Process claim through 46elks, for questions: . THIS IS NOT INSURANCE.] Cipro 500 mg tablet RxNorm: 574179 1 Tablet(s) PO BID 10/23/2014 10/29/2014 Inactive Flagyl 500 mg tablet RxNorm: 513248 1 Tablet(s) PO TID 10/23/2014 10/29/2014 Inactive Cipro 500 mg tablet RxNorm: 847896 1 Tablet(s) PO BID 10/23/2014 10/22/2014 Inactive Flagyl 500 mg tablet RxNorm: 019681 1 Tablet(s) PO TID 10/23/2014 10/22/2014 Inactive Diflucan 150 mg tablet RxNorm: 688691 1 Tablet(s) PO every other day (start af ter finished with Cipro) 10/23/2014 11/16/2014 Inactive lorazepam 1 mg tablet RxNorm: 169035 TAKE TWO TABLETS BY MOUTH EVERY NIGHT AT BEDTIME AND TAKE ONE TABLET BY MOUTH DAILY NEEDED 10/21/2014 10/21/2014 Inactive (Response to an electronic controlled [place] refill request - RxReferenceNumber: [id number]) lorazepam 1 mg tablet RxNorm: 152534 TAKE TWO TABLETS BY MOUTH EVERY NIGHT AT BEDTIME AND TAKE ONE TABLET BY MOUTH DAILY NEEDED 10/21/2014 11/18/2014 Inactive (Response to an electronic controlled [place] bstance refill request - RxReferenceNumber: [id number]) lorazepam 1 mg tablet RxNorm: 983240 Tablet(s) TAKE TWO TABLETS BY MOUTH AT B EDTIME, ALSO TAKE ONE TABLET BY MOUTH DAILY NEEDED 10/13/2014 10/21/2014 Inactive (Res ponse to an electronic controlled substance refill request - RxReferenceNumber: [id number]) ProAir HFA 90 mcg/ac tuation aerosol inhaler RxNorm: 7345699 1-2 inhale INH QID a s needed ASTHMA 10/13/2014 12/26/2014 Inactive ProAir HFA 90 mcg/ac tuation aerosol inhaler RxNorm: 8003781 1-2 inhale INH QID a s needed ASTHMA 09/18/2014 10/12/2014 Inactive meloxicam 7.5 mg tablet RxNorm: 664935 1 Tablet(s) PO daily 09/18/2014 03/10/2015 Inactive [SAVINGS FOR UNINSURED PATIENTS -- BIN:0 31413, PCN: ASPROD1, Group: [id number], ID# [id number], Process claim through 46elks, for questions: . THIS IS NOT INSURANCE.] sulfamethoxazole 800 mg-trimethoprim 160 mg tablet RxNorm: 625096 1 Tablet(s) PO BID 09/18/2014 10/07/2014 Inactive levothyroxine 175 mc g tablet RxNorm: 588209 1 Tablet(s) PO daily 09/17/2014 12/11/2014 Inactive levothyroxine 175 mc g tablet RxNorm: 570144 1 Tablet(s) PO daily 09/17/2014 09/16/2014 Inactive lorazepam 1 mg tablet RxNorm: 153167 Tablet(s) TAKE TWO TABLETS BY MOUTH AT B EDTIME, ALSO TAKE ONE TABLET BY MOUTH DAILY NEEDED 09/12/2014 10/11/2014 Inactive (Res ponse to an electronic controlled substance refill request - RxReferenceNumber: [id number]) lorazepam 1 mg tablet RxNorm: 750096 TAKE TWO TABLETS BY MOUTH AT BEDTIME, AL SO TAKE ONE TABLET BY MOUTH DAILY NEEDED 09/08/2014 09/11/2014 Inactive (Res ponse to an electronic controlled substance refill request - [id number]) meloxicam 7.5 mg tablet RxNorm: 672218 1 Tablet(s) PO daily 09/01/2014 09/17/2014 Inactive [SAVINGS FOR UNINSURED PATIENTS -- BIN:0 22349, PCN: ASPROD1, Group: [id number], ID# [id number], Process claim through MedImpact, for questions: . THIS IS NOT INSURANCE.] lisinopril 20 mg-hyd rochlorothiazide 25 mg tablet RxNorm: 833184 1 Tablet(s) PO daily 09/01/2014 12/29/2014 Inactive [SAVINGS FOR UNINSURED PATIENTS -- BIN:0 84140, PCN: ASPROD1, Group: [id number], ID# [id number], Process claim through MedImpact, for questions: . THIS IS NOT INSURANCE.] tramadol 50 mg tablet RxNorm: 333516 1 Tablet(s) PO Q4H as needed for pain 08/20/2014 11/07/2014 In active [SAVINGS FOR UNINSURED PATIENTS -- BIN:0 05918, PCN: ASPROD1, Group: [id number], ID# [id number], Process claim through MedImpact, for questions: . THIS IS NOT INSURANCE.] meloxicam 7.5 mg tablet RxNorm: 086363 1 Tablet(s) PO daily 08/14/2014 08/31/2014 Inactive [SAVINGS FOR UNINSURED PATIENTS -- BIN:0 00727, PCN: ASPROD1, Group: [id number], ID# [id number], Process claim through MedImpact, for questions: . THIS IS NOT INSURANCE.] lorazepam 1 mg tablet RxNorm: 184721 2 Tablet(s) PO QHS and 1 tab qd PRN 08/01/2014 09/08/2014 In active [SAVINGS FOR UNINSURED PATIENTS -- BIN:0 84456, PCN: ASPROD1, Group: [id number], ID# [id number], Process claim through MedImpact, for questions: . THIS IS NOT INSURANCE.] levothyroxine 200 mc g tablet RxNorm: 602567 1 Tablet(s) PO daily 07/31/2014 09/16/2014 Inactive [SAVINGS FOR UNINSURED PATIENTS -- BIN:0 87494, PCN: ASPROD1, Group: LINDY, ID# [id number], Process claim through 46elks, for questions: . THIS IS NOT INSURANCE.] lorazepam 1 mg tablet RxNorm: 470139 2 Tablet(s) PO QHS and 1 tab qd PRN No Start Date 07/31/2014 Inactive Phenergan VC-Codeine oral RxNorm: 229206 oral No S tart Date 11/26/2017 Inactive meloxicam 7.5 mg tablet RxNorm: 142621 1 Tablet(s) PO daily No Start Date 08/13/2014 Inactive lisinopril 20 mg-hyd rochlorothiazide 25 mg tablet RxNorm: 598590 1 Tablet(s) PO daily No Start Date 08/31/2014 Inactive levothyroxine 200 mc g tablet RxNorm: 771738 1 Tablet(s) PO daily No Start Date 07/30/2014 Inactive Diflucan 150 mg tablet RxNorm: 555204 1 Tablet(s) PO every other day No Start Date 10/22/2014 Inactive Zithromax Z-Linus 250 mg tablet RxNorm: 420588 1 Tablet(s) PO UD No Start Date 07/09/2015 Inactive tramadol 50 mg tablet RxNorm: 667492 1 Tablet(s) PO Q6 as needed No Start Date 08/19/2014 Inactive Medication Administered Medication Codes Instruc tions Start Date Status Kenalog 40 mg/mL suspension for injection RxNorm: 2596349 1Milliliter 06/14/2017 N o longer Active Kenalog 40 mg/mL suspension for injection RxNorm: 9020913 1Milliliter 03/27/2017 N o longer Active Kenalog 40 mg/mL suspension for injection RxNorm: 0090235 Milliliter 12/07/2016 No longer Active Kenalog 40 mg/mL suspension for injection RxNorm: 4129549 Milliliter 11/28/2016 No longer Active Immunizations Vaccine Codes Date Status Pneumococcal CVX: 33 09/1986 completed Tetanus, Diptheria, Pertussis CVX: 03/11/1987 completed Tetanus/Diptheria CVX: 03/11/1987 completed Influenza CVX: 141 03/11 completed Assessments Condition Codes Effectiv e Dates Other allergic rhinitis ICD-10: J30. 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 4 ICD-9: 782.8 03/21/2019 Low back pain ICD-10: M54.5 ICD-9: 724.2 01/22/2019 Essential (primary) hypertension ICD -10: I10 ICD-9: 401.9 11/21/2018 Other specified hypothyroidism ICD-1 0: E03.8 ICD-9: 244.8 10/23/2018 Other mucopurulent conjunctivitis, left eye ICD-10: H10.022 [...] Visit Reason For Visit Effective Dates Notes sore throat 05/07/2019 rash 04/29/2019 mole check [...] 29.7 pg 03/21/2019 Cbc With Differential Ord2 Mcmullen% 10.5 % 03/21/2019 Cbc With Differential Ord2 [...] 1.51 K/ul 03/21/2019 Cbc With Differential Ord2 Mcmullen ABS# 0.6 K/ul 03/21/2019 Cbc With Differential Ord2 Eos ABS# 0.2 K/ul 03/21/2019 Cbc With Differential Ord2 Baso ABS# 0.0 K/ul 03/21/2019 Free T4 Fie050 FREE T4 1.52 ng/dL 03/21/2019 Comp Metabolic Oob711 NA 141 mEq/L 03/21/2019 Comp Metabolic Lpd477 K 3.9 mEq/L 03/21/2019 Comp Metabolic Kqm327 CL 107 mEq/L 03/21/2019 Comp Metabolic Zqe619 CO2 26.0 mEq/L 03/21/2019 Comp Metabolic Xnf414 AN ION GAP 12 03/21/2019 Comp Metabolic Vff491 GL UCOSE 111 mg/dL 03/21/2019 Comp Metabolic Ofb412 Cr eat 0.8 mg/dL 03/21/2019 Comp Metabolic Qkj227 eG FR 77 ml/min/1.73m2 03/21 Comp Metabolic Dzb710 BUN 14 mg/dL 03/21/2019 Comp Metabolic Lzn082 B/ C Ratio 18.2 Ratio 03/21/2019 Comp Metabolic Uom916 CA LCIUM 9.2 mg/dL 03/21/2019 Comp Metabolic Ogi300 AL K PHOS 68 U/L 03/21/2019 Comp Metabolic Nzf041 T(SGOT) 11 U/L 03/21/2019 Comp Metabolic Xpm898 AL T(SGPT) 8 U/L 03/21/2019 Comp Metabolic Wtv780 BI LI T 0.5 mg/dL 03/21/2019 Comp Metabolic Qjx728 AL BUMIN 4.1 g/dL 03/21/2019 Comp Metabolic Sdo251 TP RO 6.3 g/dL 03/21/2019 Comp Metabolic Jlx326 GL OB 2.2 g/dL 03/21/2019 Comp Metabolic Znq539 A/ G Ratio 1.9 Ratio 03/21/2019 Comp Metabolic Reu176 Os mo 282 mOsmo 03/21/2019 Tsh Ord6 TSH (3rd IS) 1.49 uIU/mL 01/21/2019 Free T4 Dqa850 FREE T4 1.15 ng/dL 01/21/2019 Lipid Ord30 CHOL 231 mg/dL 10/24/2018 Lipid Ord30 HDL 56.0 mg/dl 10/24/2018 Lipid Ord30 TRIG 71 mg/dL 10/24/2018 Lipid Ord30 LDL 161 mg/dL 10/24/2018 Lipid Ord30 C/HDL 4.1 Ratio 10/24/2018 Comp Metabolic Fnd377 NA 141 mEq/L 10/24/2018 Comp Metabolic Hjh437 K 3.7 mEq/L 10/24/2018 Comp Metabolic Lkp813 CL 103 mEq/L 10/24/2018 Comp Metabolic Eee189 CO2 30.0 mEq/L 10/24/2018 Comp Metabolic Wwa809 AN ION GAP 12 10/24/2018 Comp Metabolic Bgv127 GL UCOSE 98 mg/dL 10/24/2018 Comp Metabolic Emo506 Cr eat 0.8 mg/dL 10/24/2018 Comp Metabolic Mqo085 eG FR 71 ml/min/1.73m2 10/24 Comp Metabolic Qro244 BUN 12 mg/dL 10/24/2018 Comp Metabolic Pab839 B/ C Ratio 14.5 Ratio 10/24/2018 Comp Metabolic Ogp271 CA LCIUM 9.2 mg/dL 10/24/2018 Comp Metabolic Eut100 AL K PHOS 76 U/L 10/24/2018 Comp Metabolic Wat505 T(SGOT) 12 U/L 10/24/2018 Comp Metabolic Bdz990 AL T(SGPT) 9 U/L 10/24/2018 Comp Metabolic Onq233 BI LI T 0.5 mg/dL 10/24/2018 Comp Metabolic Xyw489 AL BUMIN 4.3 g/dL 10/24/2018 Comp Metabolic Ctl838 TP RO 6.5 g/dL 10/24/2018 Comp Metabolic Lnv489 GL OB 2.2 g/dL 10/24/2018 Comp Metabolic Vmm081 A/ G Ratio 2.0 Ratio 10/24/2018 Comp Metabolic Ded731 Os mo 281 mOsmo 10/24/2018 Free T4 Uls645 FREE T4 0.76 ng/dL 10/24/2018 Cbc With [...] 30.5 pg 10/24/2018 Cbc With Differential Ord2 Mcmullen% 8.4 % 10/24/2018 Cbc With Differential Ord2 [...] 1.71 K/ul 10/24/2018 Cbc With Differential Ord2 Mcmullen ABS# 0.4 K/ul 10/24/2018 Cbc With Differential [...] 30.0 pg 04/04/2018 Cbc With Differential Ord2 Mcmullen% 10.9 % 04/04/2018 Cbc With Differential Ord2 [...] 1.42 K/ul 04/04/2018 Cbc With Differential Ord2 Mcmullen ABS# 0.6 K/ul 04/04/2018 Cbc With Differential Ord2 Eos ABS# 0.1 K/ul 04/04/2018 Cbc With Differential Ord2 Baso ABS# 0.0 K/ul 04/04/2018 Free T4 Yvq998 FREE T4 1.25 ng/dL 04/04/2018 Tsh Ord6 [...] 30.2 pg 11/28/2017 Cbc With Differential Ord2 Mcmullen% 10.1 % 11/28/2017 Cbc With Differential Ord2 [...] 1.33 K/ul 11/28/2017 Cbc With Differential Ord2 Mcmullen ABS# 0.5 K/ul 11/28/2017 Cbc With Differential Ord2 Eos ABS# 0.1 K/ul 11/28/2017 Cbc With Differential Ord2 Baso ABS# 0.0 K/ul 11/28/2017 Free T4 Fpa581 FREE T4 1.43 ng/dL 11/28/2017 Lipid Ord30 CHOL 186 mg/dL 11/28/2017 Lipid Ord30 HDL 54.0 mg/dl 11/28/2017 Lipid Ord30 TRIG 59 mg/dL 11/28/2017 Lipid Ord30 LDL 120 mg/dL 11/28/2017 Lipid Ord30 C/HDL 3.4 Ratio 11/28/2017 Comp Metabolic Oki201 NA 141 mEq/L 11/28/2017 Comp Metabolic Clr763 K 4.0 mEq/L 11/28/2017 Comp Metabolic Gyn271 CL 105 mEq/L 11/28/2017 Comp Metabolic Moi264 CO2 29.0 mEq/L 11/28/2017 Comp Metabolic Xie394 AN ION GAP 11 11/28/2017 Comp Metabolic Ubx928 GL UCOSE 91 mg/dL 11/28/2017 Comp Metabolic Gfi473 Cr eat 0.8 mg/dL 11/28/2017 Comp Metabolic Rsn909 eG FR 74 ml/min/1.73m2 11/28 Comp Metabolic Gsj147 BUN 15 mg/dL 11/28/2017 Comp Metabolic Fvi187 B/ C Ratio 18.8 Ratio 11/28/2017 Comp Metabolic Ynb338 CA LCIUM 8.6 mg/dL 11/28/2017 Comp Metabolic Luf862 AL K PHOS 76 U/L 11/28/2017 Comp Metabolic Xhm489 T(SGOT) 10 U/L 11/28/2017 Comp Metabolic Mfz619 AL T(SGPT) 8 U/L 11/28/2017 Comp Metabolic Qtu333 BI LI T 0.5 mg/dL 11/28/2017 Comp Metabolic Knz168 AL BUMIN 4.0 g/dL 11/28/2017 Comp Metabolic Rdo657 TP RO 6.1 g/dL 11/28/2017 Comp Metabolic Wgh016 GL OB 2.1 g/dL 11/28/2017 Comp Metabolic Twx981 A/ G Ratio 1.9 Ratio 11/28/2017 Comp Metabolic Izc505 Os mo 282 mOsmo 11/28/2017 Tsh Ord6 TSH (3rd IS) 3.31 uIU/mL 11/28/2017 Tsh Ord6 hTSH II 1.45 uIU/mL 03/27/2017 Free T4 Hbd773 FREE T4 1.23 ng/dL 03/27/2017 Comp Metabolic Xlc871 NA 140 mEq/L 09/28/2016 Comp Metabolic Cnf359 K 3.9 mEq/L 09/28/2016 Comp Metabolic Tjk369 CL 104 mEq/L 09/28/2016 Comp Metabolic Jxb281 CO2 28.0 mEq/L 09/28/2016 Comp Metabolic Bid385 AN ION GAP 12 09/28/2016 Comp Metabolic Dme240 GL UCOSE 97 mg/dL 09/28/2016 Comp Metabolic Rdy183 Cr eat 0.8 mg/dL 09/28/2016 Comp Metabolic Klj494 eG FR 79 ml/min/1.73m2 09/28 Comp Metabolic Ycu464 BUN 13 mg/dL 09/28/2016 Comp Metabolic Cjn249 B/ C Ratio 17.1 Ratio 09/28/2016 Comp Metabolic Tae011 CA LCIUM 8.9 mg/dL 09/28/2016 Comp Metabolic Frk199 AL K PHOS 100 U/L 09/28/2016 Comp Metabolic Lza892 T(SGOT) 12 U/L 09/28/2016 Comp Metabolic Kgi641 AL T(SGPT) 9 U/L 09/28/2016 Comp Metabolic Xna560 BI LI T 0.4 mg/dL 09/28/2016 Comp Metabolic Whl920 AL BUMIN 4.1 g/dL 09/28/2016 Comp Metabolic Rse817 TP RO 6.6 g/dL 09/28/2016 Comp Metabolic Znk622 GL OB 2.5 g/dL 09/28/2016 Comp Metabolic Bdh366 A/ G Ratio 1.6 Ratio 09/28/2016 Comp Metabolic Ouy093 Os mo 279 mOsmo 09/28/2016 Lipid Ord30 [...] 28.8 pg 09/28/2016 Cbc With Differential Ord2 Mcmullen% 7.2 % 09/28/2016 Cbc With Differential Ord2 [...] 1.41 K/ul 09/28/2016 Cbc With Differential Ord2 Mcmullen ABS# 0.5 K/ul 09/28/2016 Cbc With Differential Ord2 Eos ABS# 0.2 K/ul 09/28/2016 Cbc With Differential Ord2 Baso ABS# 0.0 K/ul 09/28/2016 Free T4 Eqj733 FREE T4 1.43 ng/dL 09/28/2016 Tsh Ord6 hTSH II 0.52 uIU/mL 09/28/2016 Tsh Ord6 hTSH II 0.47 uIU/mL 06/16/2016 Comp Metabolic Gsk049 NA 139 mEq/L 06/16/2016 Comp Metabolic Uhd114 K 4.3 mEq/L 06/16/2016 Comp Metabolic Bdt125 CL 105 mEq/L 06/16/2016 Comp Metabolic Nos360 CO2 30.0 mEq/L 06/16/2016 Comp Metabolic Mmt030 AN ION GAP 8 06/16/2016 Comp Metabolic Ykn680 GL UCOSE 90 mg/dL 06/16/2016 Comp Metabolic Gid443 Cr eat 0.7 mg/dL 06/16/2016 Comp Metabolic Qjl888 eG FR 91 ml/min/1.73m2 06/16 Comp Metabolic Aic139 BUN 15 mg/dL 06/16/2016 Comp Metabolic Pcl746 B/ C Ratio 22.4 Ratio 06/16/2016 Comp Metabolic Lkd716 CA LCIUM 8.8 mg/dL 06/16/2016 Comp Metabolic Cfx108 AL K PHOS 79 U/L 06/16/2016 Comp Metabolic Shc617 T(SGOT) 13 U/L 06/16/2016 Comp Metabolic Sgs639 AL T(SGPT) 11 U/L 06/16/2016 Comp Metabolic Ujk133 BI LI T 0.5 mg/dL 06/16/2016 Comp Metabolic Pwr859 AL BUMIN 3.9 g/dL 06/16/2016 Comp Metabolic Osk196 TP RO 6.1 g/dL 06/16/2016 Comp Metabolic Jzl510 GL OB 2.2 g/dL 06/16/2016 Comp Metabolic Sul432 A/ G Ratio 1.8 Ratio 06/16/2016 Comp Metabolic Xbh148 Os mo 278 mOsmo 06/16/2016 Lipid Ord30 [...] 28.9 pg 06/16/2016 Cbc With Differential Ord2 Mcmullen% 8.1 % 06/16/2016 Cbc With Differential Ord2 [...] 1.70 K/ul 06/16/2016 Cbc With Differential Ord2 Mcmullen ABS# 0.4 K/ul 06/16/2016 Cbc With Differential Ord2 Eos ABS# 0.2 K/ul 06/16/2016 Cbc With Differential Ord2 Baso ABS# 0.0 K/ul 06/16/2016 Free T4 Zcv746 FREE T4 1.42 ng/dL 06/16/2016 Free T4 Eme256 FREE T4 1.34 ng/dL 03/04/2016 Tsh Ord6 hTSH II 0.56 uIU/mL 03/04/2016 Tsh Ord6 hTSH II 0.98 uIU/mL 01/27/2016 Free T4 Hae395 FREE T4 1.19 ng/dL 01/27/2016 Free T4 Dyd604 FREE T4 1.69 ng/dL 11/23/2015 Tsh Ord6 hTSH II 0.08 uIU/mL 11/23/2015 Lipid Ord30 CHOL 185 mg/dL 08/21/2015 Lipid Ord30 HDL 50.0 mg/dl 08/21/2015 Lipid Ord30 TRIG 88 mg/dL 08/21/2015 Lipid Ord30 LDL 117 mg/dL 08/21/2015 Lipid Ord30 C/HDL 3.7 Ratio 08/21/2015 Comp Metabolic Qfs919 NA 139 mEq/L 08/21/2015 Comp Metabolic Jnz806 K 4.3 mEq/L 08/21/2015 Comp Metabolic Tie703 CL 102 mEq/L 08/21/2015 Comp Metabolic Qun545 CO2 27.0 mEq/L 08/21/2015 Comp Metabolic Xng534 AN ION GAP 14 08/21/2015 Comp Metabolic Xrz801 GL UCOSE 89 mg/dL 08/21/2015 Comp Metabolic Agr628 Cr eat 0.7 mg/dL 08/21/2015 Comp Metabolic Bxq627 eG FR 85 ml/min/1.73m2 08/21 Comp Metabolic Kjq883 BUN 14 mg/dL 08/21/2015 Comp Metabolic Vfk680 B/ C Ratio 19.7 Ratio 08/21/2015 Comp Metabolic Ljt377 CA LCIUM 9.5 mg/dL 08/21/2015 Comp Metabolic Vxe761 AL K PHOS 123 U/L 08/21/2015 Comp Metabolic Oeg411 T(SGOT) 13 U/L 08/21/2015 Comp Metabolic Dbm005 AL T(SGPT) 10 U/L 08/21/2015 Comp Metabolic Eld374 BI LI T 0.4 mg/dL 08/21/2015 Comp Metabolic Mga945 AL BUMIN 4.1 g/dL 08/21/2015 Comp Metabolic Tvo202 TP RO 6.8 g/dL 08/21/2015 Comp Metabolic Rbt164 GL OB 2.7 g/dL 08/21/2015 Comp Metabolic Nbf434 A/ G Ratio 1.5 Ratio 08/21/2015 Comp Metabolic Svc788 Os mo 277 mOsmo 08/21/2015 Free T4 Vpr335 FREE T4 1.78 ng/dL 08/21/2015 Tsh Ord6 [...] Ord2 RDW 13.9 % 08/21/2015 Quick Strep Uvt6091 Quic k Strep Negative 07/08/2015 Tsh Ord6 hTSH II 0.04 uIU/mL 05/20/2015 Free T4 Hun026 FREE T4 1.50 ng/dL 05/20/2015 Review of Systems System Result Effective Dates Constitutional recent illness 05/07/2019 Constitutional No chills [...] No alteration of consciousness 01/26/2017 Psychiatric anxiety 05/04/2017 Endocrine No cold sensitivity 01/26/2017 Constitutional recent [...] Endocrine No cold sensitivity 05/11/2016 Psychiatric anxiety 04/13 Dermatologic sores 05/11 Dermatologic sores 04/05 Respiratory [...] No alteration of consciousness 09/18/2014 Psychiatric anxiety 0 04/2015 Dermatologic sores 09/18 Constitutional No recent [...] Result Effective Dates Notes Full Exam - ENT Constitutional general appearance [...] clear 09/12/2017 None Full Exam - General 1995 Ears/Nose/Throat oral cavity/pharynx/larynx Overall: oropharyngeal mucosa clear [...] intact 01/26/2017 None Full Exam - General 1995 Psychiatric orientation/consciousness Overall: oriented to person, place [...] Procedure Codes Date DESTRUCT PREMALG LESION CPT-4: 88394 01/19/2018 URINALYSIS NONAUTO W /O SCOPE CPT-4: 75253 09/12/2017 TRIAMCINOLONE ACET I [place] NOS CPT-4: J3301 06/14/2017 THER/PROPH/DIAG INJ SC/IM CPT-4: 73479 06/14/2017 PRESCRIP TRANSMIT A ERX SY CPT-4: G8553 06/14/2017 TRIAMCINOLONE ACET I [place] NOS CPT-4: J3301 03/27/2017 THER/PROPH/DIAG INJ SC/IM CPT-4: 96369 12/07/2016 TRIAMCINOLONE ACET I [place] NOS CPT-4: J3301 12/07/2016 THER/PROPH/DIAG INJ SC/IM CPT-4: 27780 11/28/2016 TRIAMCINOLONE ACET I [place] NOS CPT-4: J3301 11/28/2016 Vital Signs Date Vital 05/07/2019 Blood Pressure 1: 138/68 Code: 8480-6 BMI: 36.0 Code: 83032-7 Heart Rate 1: 86 bpm Height: 5'6" SpO2: 98% Weight: 223 lbs 04/29/2019 Blood Pressure 1: 144/60 Code: 8480-6 BMI: 36.0 Code: 28087-5 Heart Rate 1: 73 bpm Height: 5'6" SpO2: 98% Weight: 223 lbs 03/21/2019 Blood Pressure 1: 132/64 Code: 8480-6 BMI: 36.2 Code: 25520-6 Heart Rate 1: 76 bpm Height: 5'6" SpO2: 94% Weight: 224 lbs 01/22/2019 Blood Pressure 1: 132/66 Code: 8480-6 BMI: 37.1 Code: 93416-7 Heart Rate 1: 73 bpm Height: 5'6" SpO2: 96% Weight: 230 lbs 11/21/2018 Blood Pressure 1: 120/64 Code: 8480-6 Heart Rate 1: 64 bpm 10/30/2018 Blood Pressure 1: 144/70 Code: 8480-6 BMI: 37.0 Code: 03528-7 Heart Rate 1: 76 bpm Height: 5'6" SpO2: 96% Weight: 229 lbs 06/28/2018 Blood Pressure 1: 110/66 Code: 8480-6 BMI: 37.1 Code: 45480-5 Heart Rate 1: 73 bpm Height: 5'6" SpO2: 98% Weight: 230 lbs 04/04/2018 Blood Pressure 1: 128/76 Code: 8480-6 BMI: 37.9 Code: 04212-7 Heart Rate 1: 86 bpm Height: 5'6" SpO2: 98% Weight: 235 lbs 01/19/2018 Blood Pressure 1: 122/68 Code: 8480-6 Heart Rate 1: 78 bpm Height: 5'6" SpO2: 97% Weight: 01/05/2018 Blood Pressure 1: 138/78 Code: 8480-6 BMI: 38.4 Code: 56483-6 Heart Rate 1: 73 bpm Height: 5'6" SpO2: 95% Weight: 238 lbs 11/29/2017 Blood Pressure 1: 138/80 Code: 8480-6 BMI: 38.7 Code: 53013-4 Heart Rate 1: 71 bpm Height: 5'6" SpO2: 97% Weight: 240 lbs 10/25/2017 Blood Pressure 1: 136/72 Code: 8480-6 BMI: 38.7 Code: 84960-3 Heart Rate 1: 92 bpm Height: 5'6" SpO2: 98% Weight: 240 lbs 09/12/2017 Blood Pressure 1: 132/68 Code: 8480-6 BMI: 39.7 Code: 58697-1 Heart Rate 1: 76 bpm Height: 5'6" SpO2: 98% Weight: 246 lbs 06/14/2017 Blood Pressure 1: 130/80 Code: 8480-6 BMI: 39.4 Code: 75295-1 Heart Rate 1: 73 bpm Height: 5'6" SpO2: 95% Temperature: 36.9 (C ) / 98.5 (F) Weight: 244 lbs 05/10/2017 Blood Pressure 1: 128/68 Code: 8480-6 BMI: 38.7 Code: 85486-7 Heart Rate 1: 69 bpm Height: 5'6" SpO2: 97% Weight: 240 lbs 04/19/2017 Blood Pressure 1: 138/74 Code: 8480-6 BMI: 38.7 Code: 15563-2 Heart Rate 1: 73 bpm Height: 5'6" SpO2: 96% Weight: 240 lbs 03/27/2017 Blood Pressure 1: 142/84 Code: 8480-6 BMI: 38.7 Code: 12015-8 Heart Rate 1: 69 bpm Height: 5'6" SpO2: 97% Weight: 240 lbs 01/26/2017 Blood Pressure 1: 136/68 Code: 8480-6 Heart Rate 1: 64 bpm Height: 5'6" SpO2: 96% Weight: 12/07/2016 Blood Pressure 1: 130/72 Code: 8480-6 BMI: 39.7 Code: 50023-1 Heart Rate 1: 73 bpm Height: 5'6" SpO2: 93% Temperature: 36.8 (C ) / 98.3 (F) Weight: 246 lbs 11/28/2016 Blood Pressure 1: 138/60 Code: 8480-6 BMI: 39.7 Code: 99053-8 Heart Rate 1: 81 bpm Height: 5'6" SpO2: 97% Weight: 246 lbs 11/15/2016 Blood Pressure 1: 134/78 Code: 8480-6 BMI: 39.7 Code: 01636-3 Heart Rate 1: 75 bpm Height: 5'6" SpO2: 93% Temperature: 36.8 (C ) / 98.2 (F) Weight: 246 lbs 10/17/2016 Blood Pressure 1: 120/64 Code: 8480-6 BMI: 38.4 Code: 21428-6 Heart Rate 1: 69 bpm Height: 5'6" SpO2: 98% Temperature: 37.2 (C ) / 98.9 (F) Weight: 238 lbs 09/28/2016 Blood Pressure 1: 158/76 Code: 8480-6 BMI: 39.4 Code: 29209-2 Heart Rate 1: 71 bpm Height: 5'6" SpO2: 97% Weight: 244 lbs 06/29/2016 Blood Pressure 1: 124/60 Code: 8480-6 BMI: 38.7 Code: 77366-6 Heart Rate 1: 71 bpm Height: 5'6" SpO2: 98% Weight: 240 lbs 06/01/2016 Blood Pressure 1: 120/62 Code: 8480-6 BMI: 38.6 Code: 95280-3 Heart Rate 1: 76 bpm Height: 5'6" SpO2: 98% Weight: 239 lbs 05/11/2016 Blood Pressure 1: 140/80 Code: 8480-6 BMI: 38.1 Code: 40721-3 Heart Rate 1: 88 bpm Height: 5'6" SpO2: 97% Weight: 236 lbs 04/05/2016 Blood Pressure 1: 142/80 Code: 8480-6 BMI: 38.4 Code: 32936-0 Heart Rate 1: 96 bpm Height: 5'6" SpO2: 98% Weight: 238 lbs 04/01/2016 Blood Pressure 1: 136/88 Code: 8480-6 BMI: 39.2 Code: 83198-2 Heart Rate 1: 86 bpm Height: 5'6" SpO2: 96% Weight: 243 lbs 01/26/2016 Blood Pressure 1: 124/76 Code: 8480-6 BMI: 39.2 Code: 91983-9 Heart Rate 1: 76 bpm Height: 5'6" SpO2: 97% Weight: 243 lbs 12/21/2015 Blood Pressure 1: 120/64 Code: 8480-6 BMI: 37.0 Code: 87632-8 Heart Rate 1: 98 bpm Height: 5'6" SpO2: 97% Weight: 229 lbs 10/12/2015 Blood Pressure 1: 150/64 Code: 8480-6 BMI: 37.4 Code: 38268-5 Heart Rate 1: 70 bpm Height: 5'6" SpO2: 94% Weight: 232 lbs 08/24/2015 Blood Pressure 1: 128/74 Code: 8480-6 BMI: 36.8 Code: 18279-3 Heart Rate 1: 88 bpm Height: 5'6" SpO2: 94% Temperature: 36.8 (C ) / 98.3 (F) Weight: 228 lbs 06/01/2015 Blood Pressure 1: 134/68 Code: 8480-6 BMI: 36.0 Code: 70350-0 Heart Rate 1: 70 bpm Height: 5'6" SpO2: 98% Weight: 223 lbs 05/21/2015 Blood Pressure 1: 126/72 Code: 8480-6 BMI: 35.2 Code: 17314-9 Heart Rate 1: 63 bpm Height: 5'6" SpO2: 95% Weight: 218 lbs 5 oz 03/26/2015 Blood Pressure 1: 140/62 Code: 8480-6 BMI: 35.3 Code: 27049-8 Heart Rate 1: 68 bpm Height: 5'6" Weight: 219 lbs 03/11/2015 Blood Pressure 1: 130/80 Code: 8480-6 BMI: 34.9 Code: 80384-3 Heart Rate 1: 76 bpm Height: 5'6" Temperature: 37.1 (C ) / 98.7 (F) Weight: 216 lbs 12/11/2014 Blood Pressure 1: 134/62 Code: 8480-6 BMI: 34.2 Code: 75943-2 Heart Rate 1: 72 bpm Height: 5'6" Weight: 212 lbs 09/18/2014 Blood Pressure 1: 148/80 Code: 8480-6 BMI: 34.7 Code: 15394-3 Heart Rate 1: 68 bpm Height: 5'6" Weight: 215 lbs 07/31/2014 Blood Pressure 1: 124/72 Code: 8480-6 BMI: 36.2 Code: 76563-8 Heart Rate 1: 68 bpm Height: 5'6" Weight: 224 lbs Functional Status No Functional Status data History of Present Illness Symptom Name Status Resu lt Effective Date Notes Location diffusely 05/07/2019 None Quality acute 05/07/2019 [...] Severity mi ld 09/28/2016 None 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 09/28/2016 None hypothyroid Onset and Resolution [...] Severity mi ld 06/01/2016 None 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 06/01/2016 None hypothyroid Onset and Resolution [...] and Resolution resolved 04/05/2016 None 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 PATIENT, LEVEL IV Diagnosis: Other acute sinusitis[ICD10: J01.80] Diagnosis: Other allergic rhinitis[ICD10: J30.89] Diagnosis: Herpesviral vesicular dermatitis[ICD10: B00.1] Mishel Finn MD, [facility] CPT-4: 09127 05/07/2019 54849 EST. PATIENT, LEVEL III Diagnosis: Pain in left knee[ICD10: M25.562] Diagnosis: Other pruritus[ICD10: L29.8] Diagnosis: Rash and other nonspecific skin eruption[ICD10: R21] [facility] CPT-4: 47492 04/29/2019 ([id number]) 96713 EST. P ATIENT, LEVEL IV Diagnosis: Hypothyroidism, unspecified[ICD10: E03.9] Diagnosis: Changes in skin texture[ICD10: R23.4] Diagnosis: Mild intermittent asthma, uncomplicated[ICD10: J45.20] [facility] CPT-4: 56054 03/21/2019 ([id number]) 68857 EST. P ATIENT, LEVEL IV Diagnosis: Mild intermittent asthma, uncomplicated[ICD10: J45.20] Diagnosis: Hypothyroidism, unspecified[ICD10: E03.9] Diagnosis: Low back pain[ICD10: M54.5] [facility] CPT- 4: 19852 01/22/2019 ([id number]) Miscellaneou s no charge Diagnosis: Essential (primary) hypertension[ICD10: I10] Damari Finn MD, [facility] CPT-4: 12922 11/21/2018 ([id number]) 63190 EST. [facility] Diagnosis: Essential (primary) hypertension[ICD10: I10] Diagnosis: Hypothyroidism, unspecified[ICD10: E03.9] Diagnosis: Low back pain[ICD10: M54.5] Lynn Finn MD, [facility] CPT- 4: 11559 10/30/2018 ([id number]) 33198 EST. [facility], LEVEL III Diagnosis: Acute recurrent maxillary sinusitis[ICD10: J01.01] Diagnosis: Other mucopurulent conjunctivitis, left eye[ICD10: H10.022] Diagnosis: Other allergic rhinitis[ICD10: J30.89] Lynn Finn MD, [facility] CPT-4: 41138 06/28/2018 17891 EST. PATIENT, LEVEL IV Diagnosis: Essential (primary) hypertension[ICD10: I10] Diagnosis: Other specified hypothyroidism[ICD10: E03.8] Diagnosis: Other specified anemias[ICD10: D64.89] Diagnosis: Localized edema[ICD10: R60.0] Mishel Finn MD, [facility] CPT-4: 98056 04/04/2018 ([id number]) 34593 EST. [facility], LEVEL III Diagnosis: Mild persistent asthma, uncomplicated[ICD10: J45.30] Diagnosis: Actinic keratosis[ICD10: L57.0] Lynn Finn MD, [facility] CPT- 4: 61621 01/05/2018 ([id number]) Martaou s no charge Diagnosis: Essential (primary) hypertension[ICD10: I10] Damari Finn MD, [facility] CPT-4: 12689 12/12/2017 11984 EST. PATIENT, LEVEL III Diagnosis: Essential (primary) hypertension[ICD10: I10] Diagnosis: Atrophy of thyroid (acquired)[ICD10: E03.4] Diagnosis: Low back pain[ICD10: M54.5] Mishel Finn MD, [facility] CPT-4: 35621 11/29/2017 40049 EST. PATIENT, LEVEL III Diagnosis: Pain in left hip[ICD10: M25.552] Mishel Finn MD, [facility] CPT-4: 84988 10/25/2017 42138 EST. PATIENT, LEVEL IV Diagnosis: Localized edema[ICD10: R60.0] Mishel Finn MD, [facility] CPT-4: 65861 09/12/2017 49806 EST. PATIENT, LEVEL IV Diagnosis: Mild persistent asthma with (acute) exacerbation[ICD10: J45.31] Mishel Finn MD, [facility] CPT-4: 58580 06/14/2017 13084 EST. PATIENT, LEVEL III Diagnosis: Localized edema[ICD10: R60.0] Diagnosis: Mild persistent asthma, uncomplicated[ICD10: J45.30] Mishel Finn MD, [facility] CPT-4: 36707 05/10/2017 84799 EST. PATIENT, LEVEL III Diagnosis: Mild persistent asthma with (acute) exacerbation[ICD10: J45.31] Mishel Finn MD, [facility] CPT-4: 85621 04/19/2017 ([id number]) 41387 EST. P ATIENT, LEVEL IV Diagnosis: Contusion of left wrist, initial encounter[ICD10: S60.212A] Diagnosis: Hypothyroidism, unspecified[ICD10: E03.9] Diagnosis: Mild persistent asthma with (acute) exacerbation[ICD10: J45.31] Diagnosis: Low back pain[ICD10: M54.5] Lynn Finn MD, [facility] CPT- 4: 87828 03/27/2017 ([id number]) 02684 EST. P ATIENT, LEVEL IV Diagnosis: Essential (primary) hypertension[ICD10: I10] Diagnosis: Atrophy of thyroid (acquired)[ICD10: E03.4] Diagnosis: Low back pain[ICD10: M54.5] Damari Finn MD, [facility] CPT-4: 42288 01/26/2017 90475 EST. PATIENT, LEVEL III Diagnosis: Other allergic rhinitis[ICD10: J30.89] Diagnosis: Mild persistent asthma with (acute) exacerbation[ICD10: J45.31] Mishel Finn MD, [facility] CPT-4: 56716 12/07/2016 34333 EST. PATIENT, LEVEL III Diagnosis: Mild persistent asthma with (acute) exacerbation[ICD10: J45.31] Mishel Finn MD [facility] CPT-4: 29987 11/28/2016 14273 EST. PATIENT, LEVEL III Diagnosis: Mild persistent asthma with (acute) exacerbation[ICD10: J45.31] Diagnosis: Acute bronchitis due to other specified organisms[ICD10: J20.8] Mishel Finn MD, [facility] CPT-4: 31265 11/15/2016 48473 EST. PATIENT, LEVEL IV Diagnosis: Other acute sinusitis[ICD10: J01.80] Diagnosis: Other allergic rhinitis[ICD10: J30.89] Diagnosis: Mild persistent asthma with (acute) exacerbation[ICD10: J45.31] Mishel iFnn MD, [facility] CPT-4: 53927 10/17/2016 ([id number]) 30635 EST. P ATIENT, LEVEL IV Diagnosis: Essential (primary) hypertension[ICD10: I10] Diagnosis: Low back pain[ICD10: M54.5] Damari Finn MD, [facility] CPT-4: 78910 09/28/2016 63496 EST. PATIENT, LEVEL III Diagnosis: Tinea barbae and tinea capitis[ICD10: B35.0] Diagnosis: Other specified hypothyroidism[ICD10: E03.8] Mishel Finn MD, [facility] CPT-4: 72138 06/29/2016 ([id number]) 42530 EST. P ATIENT, LEVEL IV Diagnosis: Essential (primary) hypertension[ICD10: I10] Diagnosis: Atrophy of thyroid (acquired)[ICD10: E03.4] Diagnosis: Rash and other nonspecific skin eruption[ICD10: R21] Damari Finn MD, [facility] CPT-4: 11750 06/01/2016 ([id number]) 49543 EST. P ATIENT, LEVEL III Diagnosis: Cellulitis of groin[ICD10: L03.314] Damari Finn MD, [facility] CPT- 4: 08075 05/11/2016 ([id number]) 59864 EST. P ATIENT, LEVEL IV Diagnosis: Hypothyroidism, unspecified[ICD10: E03.9] Diagnosis: Candidiasis of vulva and vagina[ICD10: B37.3] Diagnosis: Essential (primary) hypertension[ICD10: I10] Diagnosis: Low back pain[ICD10: M54.5] Lynn Finn MD, [facility] CPT- 4: 42124 04/05/2016 08165 EST. PATIENT, LEVEL III Diagnosis: Other acute sinusitis[ICD10: J01.80] Diagnosis: Rash and other nonspecific skin eruption[ICD10: R21] Mishel Finn MD, [facility] CPT-4: 75710 04/01/2016 ([id number]) 27589 EST. P ATIENT, LEVEL IV Diagnosis: Essential (primary) hypertension[ICD10: I10] Diagnosis: Hypothyroidism, unspecified[ICD10: E03.9] Diagnosis: Low back pain[ICD10: M54.5] Diagnosis: Other obesity due to excess calories[ICD10: E66.09] Lynn Finn MD, [facility] CPT-4: 26693 01/26/2016 03340 EST. PATIENT, LEVEL IV Diagnosis: Essential (primary) hypertension[ICD10: I10] Diagnosis: Cutaneous abscess of face[ICD10: L02.01] Mishel Finn MD, [facility] CPT-4: 10667 12/21/2015 ([id number]) 74467 EST. P ATIENT, LEVEL III Diagnosis: Cutaneous abscess of groin[ICD10: L02.214] Diagnosis: Hypothyroidism, unspecified[ICD10: E03.9] Lynn Finn MD, [facility] CPT-4: 66235 10/12/2015 ([id number]) 14506 EST. P ATIENT, LEVEL III Diagnosis: Essential (primary) hypertension[ICD10: I10] Diagnosis: Hypothyroidism, unspecified[ICD10: E03.9] Diagnosis: Allergic rhinitis, unspecified[ICD10: J30.9] Lynn Finn MD, [facility] CPT-4: 65764 08/24/2015 ([id number]) 33762 EST. P ATIENT, LEVEL III Diagnosis: Skin infection[ICD9: 686.9] Damari Finn MD, [facility] CPT-4: 72980 06/01/2015 ([id number]) 26786 EST. P ATIENT, LEVEL III Diagnosis: Hypothyroidism[ICD9: 244.9] Diagnosis: ESSENTIAL HYPERTENSION[ICD9: 401.9] Damari Finn MD, [facility] CPT- 4: 04896 05/21/2015 ([id number]) 43626 EST. P ATIENT, LEVEL III Diagnosis: Hypothyroidism[ICD9: 244.9] Diagnosis: Fingernail abnormalities[ICD9: 703.8] Lynn Finn MD, [facility] CPT-4: 48760 03/26/2015 ([id number]) 12394 EST. P ATIENT, LEVEL II Diagnosis: Hypothyroidism[ICD9: 244.9] Maritza Finn MD, [facility] CPT-4: 02409 03/11/2015 ([id number]) 69464 EST. P ATIENT, LEVEL IV Diagnosis: ESSENTIAL HYPERTENSION[ICD9: 401.9] Diagnosis: Low back pain[ICD9: 724.2] Diagnosis: Hypothyroidism[ICD9: 244.9] Damari Finn MD, [facility] CPT-4: 00027 12/11/2014 ([id number]) 32833 EST. P ATIENT, LEVEL IV Diagnosis: Hidradenitis suppurativa[ICD9: 705.83] Diagnosis: ESSENTIAL HYPERTENSION[ICD9: 401.9] Diagnosis: Low back pain[ICD9: 724.2] Diagnosis: Lumbar spinal stenosis[ICD9: 724.02] Diagnosis: HYPOTHYROIDISM[ICD9: 244.9] Damari Finn MD, [facility] CPT-4: 88082 09/18/2014 Office outpatient ne w 30 minutes Diagnosis: ESSENTIAL HYPERTENSION[ICD9: 401.9] Diagnosis: Hypothyroidism[ICD9: 244.9] Diagnosis: Low back pain[ICD9: 724.2] Lynn Finn MD, [facility] CPT- 4: 07195 07/31/2014 Plan of Care Planned Activity Notes C odes Status Date Visit Plan: Sinusitis - Pt has acut [...] or concerns. 05/07/2019 Appointment: Mishel Balderrama WPtel: [address] [place], [place] [phone] (30 min) Complex 05/07/2019 Patient Education: Patient [...] or concerns. 04/29/2019 Appointment: Mishel Balderrama WPtel: [address] [place], [place] [phone] (30 min) Complex 04/29/2019 Patient Education: Patient Medication Summary Completed 04/29/2019 Appointment: Lynn Arenas WPtel: [address] [place], [place] [phone] (30 min) Complex 04/23/2019 Visit Plan: Hypothyroidism -patient is having symptoms of over supplementation -check labs today Skin changes-patient used to see Dr Solitario but hasn't see anyone recently -recommend skin check with Dr Yamel boyd- stable- no change in current treatment 03/21/2019 Appointment: Lynn Arenas WPtel: [address] [place], [place] [phone] (30 min) Complex 03/21/2019 Patient Education: Patient [...] medical practice. 01/22/2019 Appointment: Lynn Arenas WPtel: [facility] [place] [facility] [place] [phone] (30 min) Complex 01/22/2019 Patient Education: Patient [...] as indicated 10/30/2018 Appointment: Lynn Arenas WPtel: [facility] [place] [facility] [place] [phone] [place] (30 min) Complex 10/30/2018 Patient Education: Patient Medication Summary Completed 10/30/2018 Patient Education: Hypertension Completed 10/30/2018 Patient Education: Back Pain Completed 10/30/2018 Appointment: Lynn Arenas WPtel: [phone] [phone] [place] (30 min) Complex 10/26/2018 Patient Education: Patient Medication Summary Completed 10/23/2018 Appointment: Lynn Arenas WPtel: [phone] [phone] [place] (15 min) Moderate 10/19/2018 Appointment: [phone] [facility] [place] (15 min) Moderate 09/19/2018 Visit [...] times daily. 06/28/2018 Appointment: Lynn Arenas WPtel: [phone] [phone] [place] (30 min) Complex 06/28/2018 Patient Education: Patient [...] to monitor. 04/04/2018 Appointment: Mishel Balderrama WPtel: [facility] [place] [facility] [place] [facility] (15 min) Moderate 04/04/2018 Patient Education: Patient Medication Summary Completed 04/04/2018 Visit Plan: Wound Instructions - Pt was instructed to keep the wound clean, wash with antibacterial soap, use triple antibiotic ointment, call if redness, pustular drainage, or any other acute concerns. 01/19/2018 Appointment: Lynn Arenas WPtel: [facility] [place] [facility] [phone] (30 min) Complex 01/19/2018 Patient Education: [...] acute concerns. 01/05/2018 Appointment: Lynn Arenas WPtel: [facility] [place] [facility] [place] [phone] (30 min) Complex 01/05/2018 Patient Education: [...] not improve. 11/29/2017 Appointment: Mishel Balderrama WPtel: [facility] [place] [facility] [place] [facility] [place] (30 min) Complex 11/29/2017 Patient Education: [...] not improve. 10/25/2017 Appointment: Mishel Balderrama WPtel: [phone] [facility] [place] (30 min) Complex 10/25/2017 Patient Education: [...] peripheral edema. 09/12/2017 Appointment: Mishel Balderrama WPtel: [facility] [place] [facility] [place] [facility] [place] (30 min) Complex 09/12/2017 Patient Education: Patient Medication Summary Completed 09/12/2017 Appointment: Lynn Arenas WPtel: [phone] [phone] [place] (30 min) Complex 06/27/2017 Visit Plan: [...] acute changes. 06/14/2017 Appointment: Mishel Balderrama WPtel: [phone] [facility] [place] (15 min) Moderate 06/14/2017 Patient Education: [...] acute changes 05/10/2017 Appointment: Mishel Balderrama WPtel: [phone] [facility] [place] (15 min) Moderate 05/10/2017 Patient Education: [...] changes. 04/19/2017 Appointment: Mishel Balderrama WPtel: [phone] [facility] [place] (15 min) Moderate 04/19/2017 Patient Education: Patient [...] on previous levels of control. Low back qgfg-gjahwtq-psbxao tramadol for prn use 03/27/2017 Appointment: Lynn Arenas WPtel: [phone] [phone] (30 min) Complex 03/27/2017 Patient Education: Patient [...] not improve. 01/26/2017 Appointment: [phone] [facility] (15 min) Moderate 01/26/2017 Patient Education: [...] or concerns. 12/07/2016 Appointment: Mishel Balderrama WPtel: [facility] [place] [facility] [place] [facility] (15 min) Moderate 12/07/2016 Patient Education: Patient [...] acute changes. 11/28/2016 Appointment: Mishel Balderrama WPtel: [facility] [place] [facility] [place] (15 min) Moderate 11/28/2016 Patient Education: Patient Medication Summary Completed 11/28/2016 Appointment: Mishel Balderrama WPtel: [phone] [facility] (15 min) Moderate 11/24/2016 Visit Plan: Bronchitis [...] acute changes. 11/15/2016 Appointment: Mishel Balderrama WPtel: [facility] [place] [facility] [place] (30 min) Complex 11/15/2016 Patient Education: Patient [...] acute changes. 10/17/2016 Appointment: Mishel Balderrama WPtel: [phone] [facility] [place] (30 min) Complex 10/17/2016 Patient Education: Patient [...] prn tylenol 09/28/2016 Appointment: Damari Finn WPtel: [phone] [facility] [place] (15 min) Moderate 09/28/2016 Patient Education: Patient [...] control. 06/29/2016 Appointment: Lynn Arenas WPtel: [phone] [phone] [place] (15 min) Moderate 06/29/2016 Patient [...] fluconazole 06/01/2016 Appointment: Damari Finn WPtel: [phone] [facility] (15 min) Moderate 06/01/2016 Patient Education: Patient Medication Summary Completed 06/01/2016 Patient Education: Obesity Completed 06/01/2016 Visit Plan: Cellulitis - continue w ith oral antibiotics as previously directed, return to clinic as previously directed, call for acute change in symptoms, worsening redness, warmth, discharge. 05/11/2016 Appointment: [phone] [facility] (15 min) Moderate 05/11/2016 Patient Education: Patient [...] any concerns. 04/01/2016 Appointment: Lynn Arenas WPtel: [address] [place], [place] [phone] (30 min) Complex 04/01/2016 Patient Education: Patient Medication Summary Completed 04/01/2016 Patient Education: Obesity Completed 04/01/2016 Appointment: Lynn Arenas WPtel: [facility] [place] [facility] [place] [phone] (30 min) Complex 03/29/2016 Visit Plan: [...] levels of control. Low back pain-refill tramadol Zyklp-onwhaatsen-rjgisxvo resolved 01/26/2016 Appointment: Lynn Arenas WPtel: [facility] [place] [facility] [place] [phone] (30 min) Complex 01/26/2016 Patient Education: Patient Medication Summary Completed 01/26/2016 Patient Education: Obesity Completed 01/26/2016 Care Plan: BMI Above normal followup RADHA F-MGMT EDUC & TRAIN 1 PT Pending 01/26/2016 Care Plan: Referral Order SNOMED-CT : [id number] Pending 01/07/2016 Appointment: Lynn Arenas WPtel: [facility] [place] [facility] [place] [phone] [place] (15 min) Moderate 12/24/2015 Visit Plan: Hypertension [...] in the nasal steroid allergy spray. Coricidin [facility] 08/24/2015 Appointment: (30 min) Complex 08/24/2015 Patient Education: Patient Medication Summary Completed 08/24/2015 Patient Education: Hypertension Completed 08/24/2015 Appointment: (10 min) Simple 07/08/2015 Visit Plan: Skin infection - recomm ended treatment with oral antibiotic and topical antibiotic. Pt to call if nor improving. 06/01/2015 Appointment: Damari Finn WPtel: [facility] [place] [facility] [place] [facility] (15 min) Moderate 06/01/2015 Patient Education: [...] refill tramadol 12/11/2014 Appointment: Damari Finn WPtel: [phone] follow up 12/11/2014 Patient Education: Patient Medication Summary Completed 12/11/2014 Patient Education: Hypertension Completed 12/11/2014 Appointment: Damari Finn WPtel: [facility] [place] [facility] [place] [address] follow up 11/27/2014 Visit Plan: Hidradenitis [...] to get her back MRI done at [facility] in [place] as that is where her specialist will be once we get her an appt with one of the local Neurosurgeons. 09/18/2014 Appointment: Damari Finn WPtel: [facility] [place] [place] [facility] Follow up 09/18/2014 Patient Education: Patient Medication Summary Completed 09/18/2014 Patient Education: Hypertension Completed 09/18/2014 Visit Plan: Hypertension - rashel faye - continue with current medications, continue with [...] as scheduled 07/31/2014 Appointment: Lynn Arenas WPtel: [facility] [place] [facility] [place] [phone] [place] New Patient 07/31/2014 Patient Education: Patient [...] . Asthma Exacerbation - Asthma is a duct maker jamee problem for this patient, however, the [...] on previous levels of control. Low back gwjy-zbwzvwh-aupqzi tramadol for prn use claritin or zyrtec [...] stable, monitor for acute changes. . Asthma Exacerbatio n - Asthma is [...] . Asthma Exacerbation - Asthma is a duct maker jamee problem for this patient, however, the [...] . Asthma Exacerbation - Asthma is a duct maker jamee problem for this patient, however, the [...] symptoms, worsening redness, warmth, discharge. Declined Procedure: (66848) FLU VAC NO PRSV 4 JUSTYNA 3 YRS+; Declined Reason: refused Physical therapy at [facility] . Hypertension - well controlled - oleg [...] levels of control. Low back pain-refill tramadol Ilnky-bypaulyjtg-jrwmuksg resolved . Hypertension - wel l controlled [...] to get her back MRI done at [facility] in [place] as that is where her specialist will [...]
--- OUTSIDE RECORDS SUMMARY | 2020-02-20 18:36 | XMS REPORT | CCD ---
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 Unknown Has never used illegal drugs 014 Allergies, Adverse Reactions, Alerts Substance Reaction Codes Entered Date Inactivated Date Status * NO KNOWN FOOD BEVERLY RGIES Unknown 07/31/2014 No Inactive Date Active bactrim hives, rash RxNorm: 581311 04/05/2016 No Inactive Date Active Past Medical [...] Fill Instructions lorazepam 1 mg tablet RxNorm: 558287 Tablet(s) TAKE TWO TABLETS BY MOUTH AT B EDTIME NEEDED FOR INSOMNIA AND ONE TABLET DAILY NEEDED ANXIETY 05/07/2019 07/05/2019 Active valacyclovir 1 gram tablet RxNorm: 872127 1 Tablet(s) PO TID 05/07/2019 05/13/2019 Active Keflex 500 mg capsule RxNorm: 812926 1 Capsule(s) PO TID 05/07/2019 05/13/2019 Active tramadol 50 mg tablet RxNorm: 718211 1 Tablet(s) PO Q4 PRN as needed for pain 05/06/2019 06/14/2019 Ac tive tramadol 50 mg tablet RxNorm: 031717 TAKE ONE TABLET BY MOUTH EVERY 6 HOURS A S NEEDED FOR PAIN 05/06/2019 06/04/2019 Active prednisone 20 mg tablet RxNorm: 300462 1 Tablet(s) PO BID x 2 days, then 1 pill daily x 3 days, then 1/2 pill every other day x 3 doses. 04/29/2019 No Stop Date Active tramadol 50 mg tablet RxNorm: 159498 1 Tablet(s) PO Q6 PRN as needed for pain 04/09/2019 05/06/2019 In active levothyroxine 125 mc g tablet RxNorm: 597838 1 Tablet(s) PO daily TAKE ONE TABLET BY MOUTH DAILY ON AN EMPTY STOMACH 03/25/2019 06/16/2020 Active lorazepam 1 mg tablet RxNorm: 266040 Tablet(s) TAKE TWO TABLETS BY MOUTH AT B EDTIME NEEDED FOR INSOMNIA AND ONE TABLET DAILY NEEDED ANXIETY 03/15/2019 05/06/2019 Inactive tramadol 50 mg tablet RxNorm: 103014 1 Tablet(s) PO Q4 PRN as needed for pain 03/15/2019 04/08/2019 In active tramadol 50 mg tablet RxNorm: 669063 1 Tablet(s) PO Q4 PRN as needed for pain 02/20/2019 03/14/2019 In active lorazepam 1 mg tablet RxNorm: 615631 Tablet(s) TAKE TWO TABLETS BY MOUTH AT B EDTIME NEEDED FOR INSOMNIA AND ONE TABLET DAILY NEEDED ANXIETY 01/04/2019 03/03/2019 Inactive Keflex 500 mg capsule RxNorm: 362333 1 Capsule(s) PO TID 12/05/2018 12/11/2018 Inactive tramadol 50 mg tablet RxNorm: 632017 1 Tablet(s) PO Q4 PRN as needed for pain 12/05/2018 01/12/2019 In active ciprofloxacin 0.3 % eye drops RxNorm: 510798 INSTILL TWO DROPS TO THE AFFECTED EYE(S) THREE TIMES A DAY 11/23/2018 12/25/2018 Inactive ProAir HFA 90 mcg/ac tuation aerosol inhaler RxNorm: 7962936 1-2 Puff(s) INH Q4 P RN INHALE 1 TO 2 PUFFS FOUR TIMES A DAY NEEDED FOR ASTHMA 10/30/2018 01/27/2019 Inactive levothyroxine 137 mc g tablet RxNorm: 168405 1 Tablet(s) PO daily TAKE ONE TABLET BY MOUTH DAILY ON AN EMPTY STOMACH 10/30/2018 03/24/2019 Inactive tramadol 50 mg tablet RxNorm: 044457 1 Tablet(s) PO Q4 PRN as needed for pain 10/29/2018 12/04/2018 In active levothyroxine 125 mc g tablet RxNorm: 142734 1 Tablet(s) PO daily TAKE ONE TABLET BY MOUTH DAILY ON AN EMPTY STOMACH 09/06/2018 10/29/2018 Inactive lorazepam 1 mg tablet RxNorm: 842506 Tablet(s) TAKE TWO TABLETS BY MOUTH AT B EDTIME NEEDED FOR INSOMNIA AND ONE TABLET DAILY NEEDED ANXIETY 09/06/2018 11/02/2018 Inactive tramadol 50 mg tablet RxNorm: 828148 1 Tablet(s) PO Q4 PRN as needed for pain 09/06/2018 10/15/2018 In active tramadol 50 mg tablet RxNorm: 955214 1 Tablet(s) PO Q4 PRN as needed for pain 07/06/2018 08/14/2018 In active ciprofloxacin 0.3 % eye drops RxNorm: 869673 2 Drop(s) ophthalmic (eye) TID 06/28/2018 07/07/2018 In active lorazepam 1 mg tablet RxNorm: 390152 Tablet(s) TAKE TWO TABLETS BY MOUTH AT B EDTIME NEEDED FOR INSOMNIA AND ONE TABLET DAILY NEEDED ANXIETY 06/28/2018 08/26/2018 Inactive doxycycline hyclate 100 mg tablet RxNorm: 0553056 1 Tablet(s) PO BID 06/28/2018 07/04/2018 Inactive tramadol 50 mg tablet RxNorm: 257499 1 Tablet(s) PO Q4 PRN as needed for pain 06/13/2018 07/05/2018 In active lorazepam 1 mg tablet RxNorm: 129462 Tablet(s) TAKE TWO TABLETS BY MOUTH AT B EDTIME NEEDED FOR INSOMNIA AND ONE TABLET DAILY NEEDED ANXIETY 05/23/2018 06/27/2018 Inactive tramadol 50 mg tablet RxNorm: 996076 1 Tablet(s) PO Q4 PRN as needed for pain 05/23/2018 06/12/2018 In active levothyroxine 125 mc g tablet RxNorm: 305850 Tablet(s) TAKE ONE TA BLET BY MOUTH DAILY ON AN EMPTY STOMACH 05/23/2018 09/05/2018 Inactive tramadol 50 mg tablet RxNorm: 034364 1 Tablet(s) PO Q4 PRN as needed for pain 05/17/2018 05/22/2018 In active levothyroxine 125 mc g tablet RxNorm: 574171 TAKE ONE TABLET BY MO UTH DAILY 05/15/2018 06/27/2018 In active levothyroxine 125 mc g tablet RxNorm: 546035 TAKE ONE TABLET BY MO UT DAILY 05/15/2018 06/27/2018 In active tramadol 50 mg tablet RxNorm: 302423 1 Tablet(s) PO Q4 PRN as needed for pain 04/30/2018 05/16/2018 In active Advair Diskus 100 mc g-50 mcg/dose powder for inhalation RxNorm: 5197988 1 Puff(s) INH BID 04/06/2018 01/21/2019 Inactive Symbicort 80 mcg-4.5 mcg/actuation HFA aerosol inhaler RxNorm: 0424548 2 Puff(s) INH BID 04/06/2018 01/21/2019 Inactive Advair Diskus 250 mc g-50 mcg/dose powder for inhalation RxNorm: 6110030 1 Puff(s) INH BID 04/05/2018 09/01/2018 Inactive Zyrtec 10 mg tablet RxNorm: 3030983 1 Tablet(s) PO daily x1 week then PRN 04/05/2018 08/02/2018 In active lisinopril 20 mg-hyd rochlorothiazide 25 mg tablet RxNorm: 299630 Tablet(s) TAKE ONE TABLET BY MOUTH DAILY 04/05/2018 10/29/2018 Inactive Zyrtec 10 mg tablet RxNorm: 5918171 1 Tablet(s) PO daily 04/04/2018 05/03/2018 Inactive tramadol 50 mg tablet RxNorm: 513396 1 Tablet(s) PO Q4 PRN as needed for pain 03/13/2018 04/21/2018 In active lorazepam 1 mg tablet RxNorm: 612047 Tablet(s) TAKE TWO TABLETS BY MOUTH AT B EDTIME NEEDED FOR INSOMNIA AND ONE TABLET DAILY NEEDED ANXIETY 03/02/2018 04/30/2018 Inactive levothyroxine 125 mc g tablet RxNorm: 962571 1 Tablet(s) PO daily 02/06/2018 05/06/2018 Inactive levothyroxine 125 mc g tablet RxNorm: 290418 TAKE ONE TABLET BY [facility] DAILY ON AN EMPTY STOMACH 02/06/2018 05/22/2018 Inactive tramadol 50 mg tablet RxNorm: 580312 1 Tablet(s) PO Q4 PRN as needed for pain 01/26/2018 03/06/2018 In active lorazepam 1 mg tablet RxNorm: 113460 Tablet(s) TAKE TWO TABLETS BY MOUTH AT B EDTIME NEEDED FOR INSOMNIA AND ONE TABLET DAILY NEEDED ANXIETY 01/23/2018 06/27/2018 Inactive Symbicort 80 mcg-4.5 mcg/actuation HFA aerosol inhaler RxNorm: 2911092 INH 01/05/2018 06/27/2018 In active tramadol 50 mg tablet RxNorm: 868814 1 Tablet(s) PO Q4 PRN as needed for pain 01/04/2018 01/25/2018 In active Advair Diskus 250 mc g-50 mcg/dose powder for inhalation RxNorm: 0853162 1 Puff(s) INH BID 11/29/2017 03/28/2018 Inactive hydrochlorothiazide 12.5 mg tablet RxNorm: 862388 1 Tablet(s) PO daily 11/29/2017 12/28/2017 In active tramadol 50 mg tablet RxNorm: 769270 1 Tablet(s) PO Q4 PRN as needed for pain 11/23/2017 01/01/2018 In active tramadol 50 mg tablet RxNorm: 541945 1 Tablet(s) PO Q4 PRN as needed for pain 10/06/2017 11/14/2017 In active lorazepam 1 mg tablet RxNorm: 878192 Tablet(s) TAKE TWO TABLETS BY MOUTH AT B EDTIME NEEDED FOR INSOMNIA AND ONE TABLET DAILY NEEDED ANXIETY 09/12/2017 06/27/2018 Inactive tramadol 50 mg tablet RxNorm: 120487 1 Tablet(s) PO Q4 PRN as needed for pain 09/12/2017 10/05/2017 In active tramadol 50 mg tablet RxNorm: 253372 1 Tablet(s) PO Q4 PRN as needed for pain 08/15/2017 09/11/2017 In active tramadol 50 mg tablet RxNorm: 694807 1 Tablet(s) PO Q4 PRN as needed for pain 06/29/2017 08/07/2017 In active ProAir HFA 90 mcg/ac tuation aerosol inhaler RxNorm: 9176820 INHALE 1 TO 2 PUFFS FOUR TIMES A DAY NEEDED FOR ASTHMA 06/14/2017 11/10/2017 Inactive prednisone 20 mg tablet RxNorm: 141754 1 Tablet(s) PO BID x 2 days, then 1 pill daily x 3 days, then 1/2 pill every other day x 3 doses. 06/14/2017 09/11/2017 Inactive Kenalog 40 mg/mL madhavi pension for injection RxNorm: 5944226 1 Milliliter(s) Inj 06/14/2017 06/14/2017 In active Zyrtec 10 mg tablet RxNorm: 7421233 1 Tablet(s) PO daily 06/14/2017 07/13/2017 Inactive tramadol 50 mg tablet RxNorm: 234106 1 Tablet(s) PO Q4 PRN as needed for pain 06/08/2017 06/27/2017 In active [SAVINGS FOR UNINSURED PATIENTS -- BIN:0 19583, PCN: ASPROD1, Group: [id number], ID# [id number], Process claim through [employer], for questions: . THIS IS NOT INSURANCE.] tramadol 50 mg tablet RxNorm: 883894 1 Tablet(s) PO Q4 PRN as needed for pain 05/16/2017 06/04/2017 In active [SAVINGS FOR UNINSURED PATIENTS -- BIN:0 38947, PCN: ASPROD1, Group: [id number], ID# [id number], Process claim through [employer], for questions: . THIS IS NOT INSURANCE.] lorazepam 1 mg tablet RxNorm: 306460 Tablet(s) TAKE TWO TABLETS BY MOUTH AT B EDTIME NEEDED FOR INSOMNIA AND ONE TABLET DAILY NEEDED ANXIETY 05/16/2017 08/13/2017 Inactive Lasix 20 mg tablet RxNorm: 289157 1 Tablet(s) PO daily 05/10/2017 05/09/2017 Inactive Lasix 20 mg tablet RxNorm: 657162 1 Tablet(s) PO daily 05/10/2017 05/12/2017 Inactive potassium chloride E R 10 mEq tablet,extended release RxNorm: 220539 1 Tablet(s) PO daily while on the lasix 05/10/2017 05/09/2017 Inactive potassium chloride E R 10 mEq tablet,extended release RxNorm: 856935 1 Tablet(s) PO daily while on the lasix 05/10/2017 05/12/2017 Inactive prednisone 20 mg tablet RxNorm: 690708 1 Tablet(s) PO BID x 2 days, then 1 pill daily x 3 days, then 1/2 pill every other day x 3 doses. 04/19/2017 06/13/2017 Inactive Zithromax Z-Linus 250 mg tablet RxNorm: 890629 1 Tablet(s) PO UD 04/13/2017 06/28/2017 Inactive prednisone 20 mg tablet RxNorm: 139971 1 Tablet(s) PO BID 04/13/2017 04/17/2017 Inactive levothyroxine 125 mc g tablet RxNorm: 667565 1 Tablet(s) PO daily 04/11/2017 10/07/2017 Inactive tramadol 50 mg tablet RxNorm: 320814 1 Tablet(s) PO Q4 PRN as needed for pain 03/27/2017 04/15/2017 In active [SAVINGS FOR UNINSURED PATIENTS -- BIN:0 31091, PCN: ASPROD1, Group: [id number], ID# [id number], Process claim through [employer], for questions: . THIS IS NOT INSURANCE.] Kenalog 40 mg/mL madhavi pension for injection RxNorm: 8395099 1 Milliliter(s) Inj 03/27/2017 03/27/2017 In active tramadol 50 mg tablet RxNorm: 785136 1 Tablet(s) PO Q4H as needed for pain 03/09/2017 03/26/2017 In active [SAVINGS FOR UNINSURED PATIENTS -- BIN:0 54658, PCN: ASPROD1, Group: [id number], ID# [id number], Process claim through [employer], for questions: . THIS IS NOT INSURANCE.] lisinopril 20 mg-hyd rochlorothiazide 25 mg tablet RxNorm: 326669 TAKE ONE TABLET BY MOUTH DAILY 01/29/2017 11/21/2017 Inactive lorazepam 1 mg tablet RxNorm: Tablet(s) TAKE TWO TABLETS BY MOUTH AT B EDTIME NEEDED FOR INSOMNIA AND ONE TABLET DAILY NEEDED ANXIETY 01/05/2017 04/04/2017 Inactive tramadol 50 mg tablet RxNorm: 903002 1 Tablet(s) PO Q4H as needed for pain 12/07/2016 01/13/2017 In active [SAVINGS FOR UNINSURED PATIENTS -- BIN:0 86233, PCN: ASPROD1, Group: [id number], ID# [id number], Process claim through [employer], for questions: . THIS IS NOT INSURANCE.] Kenalog 40 mg/mL madhavi pension for injection RxNorm: 7625158 Milliliter(s) Inj 12/07/2016 12/07/2016 In active nystatin 100,000 uni t/mL oral suspension RxNorm: 837337 4 Milliliter(s) PO QI D 12/07/2016 12/11/2016 In active Francia-D 12 Hour 60 mg-120 mg tablet,extended release RxNorm: 210525 1 Tablet(s) PO BID 12/07/2016 01/11/2017 Inactive lorazepam 1 mg tablet RxNorm: 010577 Tablet(s) TAKE TWO TABLETS BY MOUTH AT B EDTIME AND ONE TABLET DAILY NEEDED 12/07/2016 01/04/2017 Inactive (Response to an electronic controlled substance refill request - RxReferenceNumber: [id number]) albuterol sulfate 2. 5 mg/3 mL (0.083 %) solution for nebulization RxNorm: 251743 3 Milliliter(s) INH TID 11/29/2016 11/28/2016 Inactive prednisone 10 mg tablet RxNorm: 189470 Tablet(s) PO UD 11/29/2016 12/05/2016 Inactive 6,5,4,3,2,1 doxycycline hyclate 100 mg tablet RxNorm: 841188 1 Tablet(s) PO BID 11/29/2016 12/04/2016 Inactive albuterol sulfate 2. 5 mg/3 mL (0.083 %) solution for nebulization RxNorm: 826920 3 Milliliter(s) INH TID 11/29/2016 12/03/2016 Inactive Kenalog 40 mg/mL madhavi pension for injection RxNorm: 4587918 Milliliter(s) Inj 11/28/2016 11/28/2016 In active tramadol 50 mg tablet RxNorm: 101291 1 Tablet(s) PO Q4H as needed for pain 11/15/2016 12/06/2016 In active [SAVINGS FOR UNINSURED PATIENTS -- BIN:0 80609, PCN: ASPROD1, Group: [id number], ID# [id number], Process claim through [employer], for questions: . THIS IS NOT INSURANCE.] prednisone 20 mg tablet RxNorm: 223390 2 Tablet(s) PO daily 11/15/2016 11/19/2016 Inactive Advair Diskus 100 mc g-50 mcg/dose powder for inhalation RxNorm: 3467311 1 Puff(s) INH BID 11/15/2016 06/11/2017 Inactive ProAir HFA 90 mcg/ac tuation aerosol inhaler RxNorm: 410149 INHALE 1 TO 2 PUFFS F OUR TIMES A DAY NEEDED FOR ASTHMA 11/15/2016 04/13/2017 Inactive Zithromax Z-Linus 250 mg tablet RxNorm: 383656 1 Tablet(s) PO UD 11/15/2016 11/27/2016 Inactive Zyrtec 10 mg tablet RxNorm: 6032148 1 Tablet(s) PO daily 10/17/2016 11/15/2016 Inactive Keflex 500 mg capsule RxNorm: 027379 1 Capsule(s) PO TID 10/17/2016 10/23/2016 Inactive prednisone 10 mg tablet RxNorm: 874512 Tablet(s) PO UD 10/17/2016 11/28/2016 Inactive 6,5,4,3,2,1 tramadol 50 mg tablet RxNorm: 148861 1 Tablet(s) PO Q4H as needed for pain 09/28/2016 11/06/2016 In active [SAVINGS FOR UNINSURED PATIENTS -- BIN:0 42781, PCN: ASPROD1, Group: [id number], ID# [id number], Process claim through [employer], for questions: . THIS IS NOT INSURANCE.] ProAir HFA 90 mcg/ac tuation aerosol inhaler RxNorm: 177874 INHALE 1 TO 2 PUFFS F OUR TIMES A DAY NEEDED FOR ASTHMA 09/15/2016 11/14/2016 Inactive doxycycline hyclate 100 mg tablet RxNorm: 800852 1 Tablet(s) PO BID 09/15/2016 09/24/2016 Inactive doxycycline hyclate 100 mg tablet RxNorm: 020617 1 Tablet(s) PO BID 07/29/2016 08/07/2016 Inactive tramadol 50 mg tablet RxNorm: 705420 1 Tablet(s) PO Q4H as needed for pain 07/29/2016 09/06/2016 In active [SAVINGS FOR UNINSURED PATIENTS -- BIN:0 59214, PCN: ASPROD1, Group: [id number], ID# [id number], Process claim through [employer], for questions: . THIS IS NOT INSURANCE.] lorazepam 1 mg tablet RxNorm: 656674 Tablet(s) TAKE TWO TABLETS BY MOUTH AT B EDTIME AND ONE TABLET DAILY NEEDED 07/29/2016 10/26/2016 Inactive (Response to an electronic controlled substance refill request - RxReferenceNumber: [id number]) levothyroxine 125 mc g tablet RxNorm: 995735 1 Tablet(s) PO daily 06/29/2016 06/29/2016 Inactive levothyroxine 137 mc g tablet RxNorm: 390618 1 Tablet(s) PO daily 06/29/2016 12/25/2016 Inactive ketoconazole 2 % [facility] RxNorm: 458661 1 Application TOP BID 06/29/2016 07/03/2016 Inactive tramadol 50 mg tablet RxNorm: 465398 1 Tablet(s) PO Q4H as needed for pain 06/16/2016 07/25/2016 In active [SAVINGS FOR UNINSURED PATIENTS -- BIN:0 63258, PCN: ASPROD1, Group: [id number], ID# [id number], Process claim through [employer], for questions: . THIS IS NOT INSURANCE.] Bactroban 2 % topica l ointment RxNorm: 427628 APPLY TO AFFECTED ARE A(S) TWO TIMES A DAY 06/16/2016 04/16/2017 Inactive fluconazole 150 mg t ablet RxNorm: 338360 1 Tablet(s) PO daily 06/01/2016 06/05/2016 Inactive gentamicin 0.1 % top ical ointment RxNorm: 732795 1 Application TOP QID 05/12/2016 05/25/2016 In active metronidazole 500 mg tablet RxNorm: 435693 1 Tablet(s) PO TID 05/11/2016 05/24/2016 Inactive gentamicin 0.1 % top ical ointment RxNorm: 144101 1 Application TOP QID 05/11/2016 05/11/2016 In active doxycycline hyclate 100 mg tablet RxNorm: 685093 1 Tablet(s) PO BID 05/11/2016 05/24/2016 Inactive lorazepam 1 mg tablet RxNorm: 392182 Tablet(s) TAKE TWO TABLETS BY MOUTH AT B EDTIME AND ONE TABLET DAILY NEEDED 05/02/2016 07/28/2016 Inactive (Response to an electronic controlled substance refill request - RxReferenceNumber: [id number]) Diflucan 150 mg tablet RxNorm: 367464 1 Tablet(s) PO daily x5 days then 1 x we ekly x 4 weeks. 05/02/2016 04/10/2017 Inactive Diflucan 150 mg tablet RxNorm: 143233 1 Tablet(s) PO every other day 04/19/2016 04/28/2016 In active Diflucan 150 mg tablet RxNorm: 078538 1 Tablet(s) PO every other day 04/19/2016 04/18/2016 In active Diflucan 150 mg tablet RxNorm: 040494 1 Tablet(s) PO daily 04/05/2016 04/11/2016 Inactive mupirocin 2 % topica l ointment RxNorm: 633277 1 Application TOP BID 04/05/2016 05/04/2016 Inactive tramadol 50 mg tablet RxNorm: 746803 1 Tablet(s) PO Q4H as needed for pain 04/05/2016 05/14/2016 In active [SAVINGS FOR UNINSURED PATIENTS -- BIN:0 11102, PCN: ASPROD1, Group: [id number], ID# [id number], Process claim through [employer], for questions: . THIS IS NOT INSURANCE.] prednisone 10 mg tablet RxNorm: 238321 Tablet(s) PO UD 04/01/2016 09/26/2016 Inactive 6,5,4,3,2,1 levothyroxine 137 mc g tablet RxNorm: 786704 1 Tablet(s) PO daily 03/21/2016 03/20/2016 Inactive levothyroxine 137 mc g tablet RxNorm: 034945 1 Tablet(s) PO daily 03/21/2016 06/28/2016 Inactive Advair Diskus 100 mc g-50 mcg/dose powder for inhalation RxNorm: 5468094 1 Puff(s) INH BID 01/26/2016 05/24/2016 Inactive tramadol 50 mg tablet RxNorm: 989393 1 Tablet(s) PO Q4H as needed for pain 01/26/2016 03/05/2016 In active [SAVINGS FOR UNINSURED PATIENTS -- BIN:0 52464, PCN: ASPROD1, Group: [id number], ID# [id number], Process claim through [employer], for questions: . THIS IS NOT INSURANCE.] Bactroban 2 % topica l ointment RxNorm: 449321 APPLY TO AFFECTED ARE A(S) TWO TIMES A DAY 12/22/2015 12/31/2015 Inactive Bactrim DS 800 mg-16 0 mg tablet RxNorm: 598613 TAKE ONE TABLET BY [facility] TWICE A DAY 12/22/2015 04/18/2016 In active Bactrim DS 800 mg-16 0 mg tablet RxNorm: 332321 1 Tablet(s) PO BID 12/21/2015 01/21/2019 Inactive lisinopril 20 mg-hyd rochlorothiazide 25 mg tablet RxNorm: 317902 1 Tablet(s) PO daily 12/21/2015 06/17/2016 Inactive [SAVINGS FOR UNINSURED PATIENTS -- BIN:0 91044, PCN: ASPROD1, Group: [id number], ID# [id number], Process claim through [employer], for questions: . THIS IS NOT INSURANCE.] tramadol 50 mg tablet RxNorm: 729930 1 Tablet(s) PO Q4H as needed for pain 12/03/2015 01/11/2016 In active [SAVINGS FOR UNINSURED PATIENTS -- BIN:0 30973, PCN: ASPROD1, Group: [id number], ID# [id number], Process claim through [employer], for questions: . THIS IS NOT INSURANCE.] lorazepam 1 mg tablet RxNorm: 320023 Tablet(s) TAKE TWO TABLETS BY MOUTH AT B EDTIME AND ONE TABLET DAILY NEEDED 11/26/2015 06/27/2018 Inactive (Response to an electronic controlled substance refill request - RxReferenceNumber: [id number]) Bactrim DS 800 mg-16 0 mg tablet RxNorm: 232843 1 Tablet(s) PO BID 11/25/2015 12/04/2015 Inactive levothyroxine 150 mc g tablet RxNorm: 529342 1 Tablet(s) PO daily 11/25/2015 03/20/2016 Inactive Bactroban 2 % topica l ointment RxNorm: 814409 1 Application TOP BID 10/12/2015 10/21/2015 Inactive Bactrim DS 800 mg-16 0 mg tablet RxNorm: 775806 1 Tablet(s) PO BID 09/07/2015 09/06/2015 Inactive Bactrim DS 800 mg-16 0 mg tablet RxNorm: 805701 1 Tablet(s) PO BID 09/07/2015 09/16/2015 Inactive lorazepam 1 mg tablet RxNorm: 097903 Tablet(s) TAKE TWO TABLETS BY MOUTH AT B EDTIME AND ONE TABLET DAILY NEEDED 08/28/2015 11/24/2015 Inactive (Response to an electronic controlled substance refill request - RxReferenceNumber: [id number]) levothyroxine 175 mc g tablet RxNorm: 851527 1 Tablet(s) PO daily 08/24/2015 11/24/2015 Inactive tramadol 50 mg tablet RxNorm: 955198 1 Tablet(s) PO Q4H as needed for pain 08/24/2015 09/11/2017 In active [SAVINGS FOR UNINSURED PATIENTS -- BIN:0 87425, PCN: ASPROD1, Group: [id number], ID# [id number], Process claim through [employer], for questions: . THIS IS NOT INSURANCE.] lisinopril 20 mg-hyd rochlorothiazide 25 mg tablet RxNorm: 057044 1 Tablet(s) PO daily TAKE 1 TABLET BY MOUTH DAILY 08/24/2015 06/27/2018 Inactive ProAir HFA 90 mcg/ac tuation aerosol inhaler RxNorm: 240093 1-2 Puff(s) INH PRN I NHALE ONE TO TWO PUFFS BY MOUTH FOUR TIMES A DAY NEEDED FOR ASTHMA 08/24/2015 12/01/2015 In active ProAir HFA 90 mcg/ac tuation aerosol inhaler RxNorm: 9558716 INHALE ONE TO TWO PU FFS BY MOUTH FOUR TIMES A DAY NEEDED FOR ASTHMA 08/17/2015 08/23/2015 Inactive Advair Diskus 250 mc g-50 mcg/dose powder for inhalation RxNorm: 5033425 1 Puff(s) INH BID 07/20/2015 07/19/2015 Inactive Advair Diskus 250 mc g-50 mcg/dose powder for inhalation RxNorm: 8298069 1 Puff(s) INH BID 07/20/2015 11/16/2015 Inactive tramadol 50 mg tablet RxNorm: 664862 1 Tablet(s) PO Q4H as needed for pain 07/10/2015 08/17/2015 In active [SAVINGS FOR UNINSURED PATIENTS -- BIN:0 89579, PCN: ASPROD1, Group: [id number], ID# [id number], Process claim through [employer], for questions: . THIS IS NOT INSURANCE.] Zithromax Z-Linus 250 mg tablet RxNorm: 584580 1 Tablet(s) PO UD 07/10/2015 01/18/2016 Inactive Keflex 500 mg capsule RxNorm: 362952 1 Capsule(s) PO TID 06/01/2015 06/07/2015 Inactive mupirocin 2 % topica l ointment RxNorm: 569299 1 Application TOP TID 06/01/2015 06/10/2015 Inactive lisinopril 20 mg-hyd rochlorothiazide 25 mg tablet RxNorm: 442201 TAKE 1 TABLET BY MOUT H DAILY 05/30/2015 08/23/2015 Inactive lisinopril 20 mg-hyd rochlorothiazide 25 mg tablet RxNorm: 771197 1 Tablet(s) PO daily 05/29/2015 11/24/2015 Inactive [SAVINGS FOR UNINSURED PATIENTS -- BIN:0 89841, PCN: ASPROD1, Group: AME08, ID# [id number], Process claim through [employer], for questions: . THIS IS NOT INSURANCE.] lorazepam 1 mg tablet RxNorm: 634379 Tablet(s) TAKE TWO TABLETS BY MOUTH AT B EDTIME AND ONE TABLET DAILY NEEDED 04/17/2015 07/13/2015 Inactive (Response to an electronic controlled substance refill request - RxReferenceNumber: [id number]) levothyroxine 200 mc g tablet RxNorm: 460633 1 Tablet(s) PO daily 03/12/2015 08/23/2015 Inactive [SAVINGS FOR UNINSURED PATIENTS -- BIN:0 03620, PCN: ASPROD1, Group: [id number], ID# [id number], Process claim through [employer], for questions: . THIS IS NOT INSURANCE.] lisinopril 20 mg-hyd rochlorothiazide 25 mg tablet RxNorm: 913515 1 Tablet(s) PO daily 03/11/2015 05/28/2015 Inactive [SAVINGS FOR UNINSURED PATIENTS -- BIN:0 52375, PCN: ASPROD1, Group: [id number], ID# [id number], Process claim through [employer], for questions: . THIS IS NOT INSURANCE.] levothyroxine 175 mc g tablet RxNorm: 494411 1 Tablet(s) PO daily 03/09/2015 03/11/2015 Inactive recheck blood in 3 months- THIS IS CORRE CT DOSAGE levothyroxine 175 mc g tablet RxNorm: 666745 1 Tablet(s) PO daily 03/09/2015 03/08/2015 Inactive recheck blood in 3 months levothyroxine 150 mc g tablet RxNorm: 456034 1 Tablet(s) PO daily 03/09/2015 03/08/2015 Inactive recheck blood in 3 months lorazepam 1 mg tablet RxNorm: 421660 TAKE TWO TABLETS BY MOUTH AT BEDTIME AND ONE TABLET DAILY NEEDED 12/25/2014 01/22/2015 Inactive (Response to an electronic controlled substance refill request - RxReferenceNumber: [id number]) lorazepam 1 mg tablet RxNorm: 290497 Tablet(s) TAKE TWO TABLETS BY MOUTH EVER Y NIGHT AT BEDTIME AND TAKE ONE TABLET BY MOUTH DAILY NEEDED 12/23/2014 12/25/2014 Inactive (Response to an electronic controlled [place] - RxReferenceNumber: [id number]) levothyroxine 150 mc g tablet RxNorm: 128983 1 Tablet(s) PO daily 12/12/2014 03/08/2015 Inactive recheck blood in 3 months Diflucan 150 mg tablet RxNorm: 533801 1 Tablet(s) PO every other day (start af ter finished with Cipro) 11/17/2014 08/23/2015 Inactive tramadol 50 mg tablet RxNorm: 821022 1 Tablet(s) PO Q4H as needed for pain 11/10/2014 12/17/2014 In active [SAVINGS FOR UNINSURED PATIENTS -- BIN:[id number], PCN: [email or web address], Group: [id number], ID# [id number], Process claim through [facility], for questions: . THIS IS NOT INSURANCE.] Cipro 500 mg tablet RxNorm: 596129 1 Tablet(s) PO BID 10/23/2014 10/29/2014 Inactive Flagyl 500 mg tablet RxNorm: 863990 1 Tablet(s) PO TID 10/23/2014 10/29/2014 Inactive Cipro 500 mg tablet RxNorm: 475262 1 Tablet(s) PO BID 10/23/2014 10/22/2014 Inactive Flagyl 500 mg tablet RxNorm: 047666 1 Tablet(s) PO TID 10/23/2014 10/22/2014 Inactive Diflucan 150 mg tablet RxNorm: 953706 1 Tablet(s) PO every other day (start af ter finished with Cipro) 10/23/2014 11/16/2014 Inactive lorazepam 1 mg tablet RxNorm: 767744 TAKE TWO TABLETS BY MOUTH EVERY NIGHT AT BEDTIME AND TAKE ONE TABLET BY MOUTH DAILY NEEDED 10/21/2014 10/21/2014 Inactive (Response to an electronic controlled north b[place] refill request - RxReferenceNumber: [id number]) lorazepam 1 mg tablet RxNorm: 802824 TAKE TWO TABLETS BY MOUTH EVERY NIGHT AT BEDTIME AND TAKE ONE TABLET BY MOUTH DAILY NEEDED 10/21/2014 11/18/2014 Inactive (Response to an electronic controlled north bstance refill request - RxReferenceNumber: [id number]) lorazepam 1 mg tablet RxNorm: 027761 Tablet(s) TAKE TWO TABLETS BY MOUTH AT B EDTIME, ALSO TAKE ONE TABLET BY MOUTH DAILY NEEDED 10/13/2014 10/21/2014 Inactive (Res ponse to an electronic controlled substance refill request - RxReferenceNumber: [id number]) ProAir HFA 90 mcg/ac tuation aerosol inhaler RxNorm: 9337674 1-2 inhale INH QID a s needed ASTHMA 10/13/2014 12/26/2014 Inactive ProAir HFA 90 mcg/ac tuation aerosol inhaler RxNorm: 4188843 1-2 inhale INH QID a s needed ASTHMA 09/18/2014 10/12/2014 Inactive meloxicam 7.5 mg tablet RxNorm: 891611 1 Tablet(s) PO daily 09/18/2014 03/10/2015 Inactive [SAVINGS FOR UNINSURED PATIENTS -- BIN:0 64051, PCN: ASPROD1, Group: [id number], ID# [id number], Process claim through [employer], for questions: . THIS IS NOT INSURANCE.] sulfamethoxazole 800 mg-trimethoprim 160 mg tablet RxNorm: 335878 1 Tablet(s) PO BID 09/18/2014 10/07/2014 Inactive levothyroxine 175 mc g tablet RxNorm: 618479 1 Tablet(s) PO daily 09/17/2014 12/11/2014 Inactive levothyroxine 175 mc g tablet RxNorm: 287153 1 Tablet(s) PO daily 09/17/2014 09/16/2014 Inactive lorazepam 1 mg tablet RxNorm: 343933 Tablet(s) TAKE TWO TABLETS BY MOUTH AT B EDTIME, ALSO TAKE ONE TABLET BY MOUTH DAILY NEEDED 09/12/2014 10/11/2014 Inactive (Res ponse to an electronic controlled substance refill request - RxReferenceNumber: [id number]) lorazepam 1 mg tablet RxNorm: 681358 TAKE TWO TABLETS BY MOUTH AT BEDTIME, AL SO TAKE ONE TABLET BY MOUTH DAILY NEEDED 09/08/2014 09/11/2014 Inactive (Res ponse to an electronic controlled substance refill request [id number] meloxicam 7.5 mg tablet RxNorm: 327844 1 Tablet(s) PO daily 09/01/2014 09/17/2014 Inactive [SAVINGS FOR UNINSURED PATIENTS -- BIN:0 53891, PCN: ASPROD1, Group: AME08, ID# [id number], Process claim through [employer], for questions: . THIS IS NOT INSURANCE.] lisinopril 20 mg-hyd rochlorothiazide 25 mg tablet RxNorm: 698019 1 Tablet(s) PO daily 09/01/2014 12/29/2014 Inactive [SAVINGS FOR UNINSURED PATIENTS -- BIN:0 81698, PCN: ASPROD1, Group: AME08, ID# [id number], Process claim through [employer], for questions: . THIS IS NOT INSURANCE.] tramadol 50 mg tablet RxNorm: 081698 1 Tablet(s) PO Q4H as needed for pain 08/20/2014 11/07/2014 In active [SAVINGS FOR UNINSURED PATIENTS -- BIN:0 74141, PCN: ASPROD1, Group: AME08, ID# [id number], Process claim through [employer], for questions: . THIS IS NOT INSURANCE.] meloxicam 7.5 mg tablet RxNorm: 653096 1 Tablet(s) PO daily 08/14/2014 08/31/2014 Inactive [SAVINGS FOR UNINSURED PATIENTS -- BIN:0 55846, PCN: ASPROD1, Group: AME08, ID# [id number], Process claim through [employer], for questions: . THIS IS NOT INSURANCE.] lorazepam 1 mg tablet RxNorm: 925944 2 Tablet(s) PO QHS and 1 tab qd PRN 08/01/2014 09/08/2014 In active [SAVINGS FOR UNINSURED PATIENTS -- BIN:0 35959, PCN: ASPROD1, Group: AME08, ID# [id number], Process claim through [employer], for questions: . THIS IS NOT INSURANCE.] levothyroxine 200 mc g tablet RxNorm: 859977 1 Tablet(s) PO daily 07/31/2014 09/16/2014 Inactive [SAVINGS FOR UNINSURED PATIENTS -- BIN:0 22213, PCN: ASPROD1, Group: LINDY, ID# [id number], Process claim through [employer], for questions: . THIS IS NOT INSURANCE.] lorazepam 1 mg tablet RxNorm: 940956 2 Tablet(s) PO QHS and 1 tab qd PRN No Start Date 07/31/2014 Inactive Phenergan VC-Codeine oral RxNorm: 549360 oral No S tart Date 11/26/2017 Inactive meloxicam 7.5 mg tablet RxNorm: 426312 1 Tablet(s) PO daily No Start Date 08/13/2014 Inactive lisinopril 20 mg-hyd rochlorothiazide 25 mg tablet RxNorm: 709765 1 Tablet(s) PO daily No Start Date 08/31/2014 Inactive levothyroxine 200 mc g tablet RxNorm: 097931 1 Tablet(s) PO daily No Start Date 07/30/2014 Inactive Diflucan 150 mg tablet RxNorm: 272098 1 Tablet(s) PO every other day No Start Date 10/22/2014 Inactive Zithromax Z-Linus 250 mg tablet RxNorm: 622090 1 Tablet(s) PO UD No Start Date 07/09/2015 Inactive tramadol 50 mg tablet RxNorm: 018726 1 Tablet(s) PO Q6 as needed No Start Date 08/19/2014 Inactive Medication Administered Medication Codes Instruc tions Start Date Status Kenalog 40 mg/mL suspension for injection RxNorm: 8802435 1Milliliter 06/14/2017 N o longer Active Kenalog 40 mg/mL suspension for injection RxNorm: 5910150 1Milliliter 03/27/2017 N o longer Active Kenalog 40 mg/mL suspension for injection RxNorm: 7321146 Milliliter 12/07/2016 No longer Active Kenalog 40 mg/mL suspension for injection RxNorm: 7736603 Milliliter 11/28/2016 No longer Active Immunizations Vaccine [...] 29.7 pg 03/21/2019 Cbc With Differential Ord2 Gibson% 10.5 % 03/21/2019 Cbc With Differential Ord2 [...] 1.51 K/ul 03/21/2019 Cbc With Differential Ord2 Gibson ABS# 0.6 K/ul 03/21/2019 Cbc With Differential Ord2 Eos ABS# 0.2 K/ul 03/21/2019 Cbc With Differential Ord2 Baso ABS# 0.0 K/ul 03/21/2019 Free T4 Wcr446 FREE T4 1.52 ng/dL 03/21/2019 Comp Metabolic Rjb163 NA 141 mEq/L 03/21/2019 Comp Metabolic Pim271 K 3.9 mEq/L 03/21/2019 Comp Metabolic Msm194 CL 107 mEq/L 03/21/2019 Comp Metabolic Fnd767 CO2 26.0 mEq/L 03/21/2019 Comp Metabolic Jtk501 AN ION GAP 12 03/21/2019 Comp Metabolic Eyb605 GL UCOSE 111 mg/dL 03/21/2019 Comp Metabolic Qzz834 Cr eat 0.8 mg/dL 03/21/2019 Comp Metabolic Mlh556 eG FR 77 ml/min/1.73m2 03/21 Comp Metabolic Byi032 BUN 14 mg/dL 03/21/2019 Comp Metabolic Gir125 B/ C Ratio 18.2 Ratio 03/21/2019 Comp Metabolic Kkm380 CA LCIUM 9.2 mg/dL 03/21/2019 Comp Metabolic Dmj881 AL K PHOS 68 U/L 03/21/2019 Comp Metabolic Rqd779 T(SGOT) 11 U/L 03/21/2019 Comp Metabolic Vba040 AL T(SGPT) 8 U/L 03/21/2019 Comp Metabolic Gwb577 BI LI T 0.5 mg/dL 03/21/2019 Comp Metabolic Usl884 AL BUMIN 4.1 g/dL 03/21/2019 Comp Metabolic Gxn024 TP RO 6.3 g/dL 03/21/2019 Comp Metabolic Wso681 GL OB 2.2 g/dL 03/21/2019 Comp Metabolic Utf870 A/ G Ratio 1.9 Ratio 03/21/2019 Comp Metabolic Kxj911 Os mo 282 mOsmo 03/21/2019 Tsh Ord6 TSH (3rd IS) 1.49 uIU/mL 01/21/2019 Free T4 Qpu598 FREE T4 1.15 ng/dL 01/21/2019 Lipid Ord30 CHOL 231 mg/dL 10/24/2018 Lipid Ord30 HDL 56.0 mg/dl 10/24/2018 Lipid Ord30 TRIG 71 mg/dL 10/24/2018 Lipid Ord30 LDL 161 mg/dL 10/24/2018 Lipid Ord30 C/HDL 4.1 Ratio 10/24/2018 Comp Metabolic Iha247 NA 141 mEq/L 10/24/2018 Comp Metabolic Stl717 K 3.7 mEq/L 10/24/2018 Comp Metabolic Ool637 CL 103 mEq/L 10/24/2018 Comp Metabolic Bdb628 CO2 30.0 mEq/L 10/24/2018 Comp Metabolic Ivq373 AN ION GAP 12 10/24/2018 Comp Metabolic Fwu434 GL UCOSE 98 mg/dL 10/24/2018 Comp Metabolic Ike353 Cr eat 0.8 mg/dL 10/24/2018 Comp Metabolic Zsd712 eG FR 71 ml/min/1.73m2 10/24 Comp Metabolic Pps337 BUN 12 mg/dL 10/24/2018 Comp Metabolic Mcl776 B/ C Ratio 14.5 Ratio 10/24/2018 Comp Metabolic Drf943 CA LCIUM 9.2 mg/dL 10/24/2018 Comp Metabolic Myp801 AL K PHOS 76 U/L 10/24/2018 Comp Metabolic Rsz188 T(SGOT) 12 U/L 10/24/2018 Comp Metabolic Rgf530 AL T(SGPT) 9 U/L 10/24/2018 Comp Metabolic Aya977 BI LI T 0.5 mg/dL 10/24/2018 Comp Metabolic Pps397 AL BUMIN 4.3 g/dL 10/24/2018 Comp Metabolic Dzo579 TP RO 6.5 g/dL 10/24/2018 Comp Metabolic Rbs596 GL OB 2.2 g/dL 10/24/2018 Comp Metabolic Eof262 A/ G Ratio 2.0 Ratio 10/24/2018 Comp Metabolic Fxc443 Os mo 281 mOsmo 10/24/2018 Free T4 Wvp496 FREE T4 0.76 ng/dL 10/24/2018 Cbc With [...] 30.5 pg 10/24/2018 Cbc With Differential Ord2 Gibson% 8.4 % 10/24/2018 Cbc With Differential Ord2 [...] 1.71 K/ul 10/24/2018 Cbc With Differential Ord2 Gibson ABS# 0.4 K/ul 10/24/2018 Cbc With Differential [...] 30.0 pg 04/04/2018 Cbc With Differential Ord2 Gibson% 10.9 % 04/04/2018 Cbc With Differential Ord2 [...] 1.42 K/ul 04/04/2018 Cbc With Differential Ord2 Gibson ABS# 0.6 K/ul 04/04/2018 Cbc With Differential Ord2 Eos ABS# 0.1 K/ul 04/04/2018 Cbc With Differential Ord2 Baso ABS# 0.0 K/ul 04/04/2018 Free T4 Ajo928 FREE T4 1.25 ng/dL 04/04/2018 Tsh Ord6 [...] 30.2 pg 11/28/2017 Cbc With Differential Ord2 Gibson% 10.1 % 11/28/2017 Cbc With Differential Ord2 [...] 1.33 K/ul 11/28/2017 Cbc With Differential Ord2 Gibson ABS# 0.5 K/ul 11/28/2017 Cbc With Differential Ord2 Eos ABS# 0.1 K/ul 11/28/2017 Cbc With Differential Ord2 Baso ABS# 0.0 K/ul 11/28/2017 Free T4 Zxa484 FREE T4 1.43 ng/dL 11/28/2017 Lipid Ord30 CHOL 186 mg/dL 11/28/2017 Lipid Ord30 HDL 54.0 mg/dl 11/28/2017 Lipid Ord30 TRIG 59 mg/dL 11/28/2017 Lipid Ord30 LDL 120 mg/dL 11/28/2017 Lipid Ord30 C/HDL 3.4 Ratio 11/28/2017 Comp Metabolic Par795 NA 141 mEq/L 11/28/2017 Comp Metabolic Nwl440 K 4.0 mEq/L 11/28/2017 Comp Metabolic Bps256 CL 105 mEq/L 11/28/2017 Comp Metabolic Koa355 CO2 29.0 mEq/L 11/28/2017 Comp Metabolic Jxw820 AN ION GAP 11 11/28/2017 Comp Metabolic Asw553 GL UCOSE 91 mg/dL 11/28/2017 Comp Metabolic Cjd654 Cr eat 0.8 mg/dL 11/28/2017 Comp Metabolic Ssu230 eG FR 74 ml/min/1.73m2 11/28 Comp Metabolic Oeo158 BUN 15 mg/dL 11/28/2017 Comp Metabolic Khw281 B/ C Ratio 18.8 Ratio 11/28/2017 Comp Metabolic Jdw207 CA LCIUM 8.6 mg/dL 11/28/2017 Comp Metabolic Axt413 AL K PHOS 76 U/L 11/28/2017 Comp Metabolic Kee856 T(SGOT) 10 U/L 11/28/2017 Comp Metabolic Hpu214 AL T(SGPT) 8 U/L 11/28/2017 Comp Metabolic Cxk700 BI LI T 0.5 mg/dL 11/28/2017 Comp Metabolic Dee330 AL BUMIN 4.0 g/dL 11/28/2017 Comp Metabolic Ibd283 TP RO 6.1 g/dL 11/28/2017 Comp Metabolic Tgx849 GL OB 2.1 g/dL 11/28/2017 Comp Metabolic Oiq348 A/ G Ratio 1.9 Ratio 11/28/2017 Comp Metabolic Fbo540 Os mo 282 mOsmo 11/28/2017 Tsh Ord6 TSH (3rd IS) 3.31 uIU/mL 11/28/2017 Tsh Ord6 hTSH II 1.45 uIU/mL 03/27/2017 Free T4 Hpi380 FREE T4 1.23 ng/dL 03/27/2017 Comp Metabolic Opc447 NA 140 mEq/L 09/28/2016 Comp Metabolic Ppv440 K 3.9 mEq/L 09/28/2016 Comp Metabolic Twu741 CL 104 mEq/L 09/28/2016 Comp Metabolic Hpy738 CO2 28.0 mEq/L 09/28/2016 Comp Metabolic Inr381 AN ION GAP 12 09/28/2016 Comp Metabolic Epw861 GL UCOSE 97 mg/dL 09/28/2016 Comp Metabolic Jdh323 Cr eat 0.8 mg/dL 09/28/2016 Comp Metabolic Lwh934 eG FR 79 ml/min/1.73m2 09/28 Comp Metabolic Nzy654 BUN 13 mg/dL 09/28/2016 Comp Metabolic Keg643 B/ C Ratio 17.1 Ratio 09/28/2016 Comp Metabolic Rvb552 CA LCIUM 8.9 mg/dL 09/28/2016 Comp Metabolic Fzp375 AL K PHOS 100 U/L 09/28/2016 Comp Metabolic Hew186 T(SGOT) 12 U/L 09/28/2016 Comp Metabolic Jwo384 AL T(SGPT) 9 U/L 09/28/2016 Comp Metabolic Nxg064 BI LI T 0.4 mg/dL 09/28/2016 Comp Metabolic Quq296 AL BUMIN 4.1 g/dL 09/28/2016 Comp Metabolic Ves871 TP RO 6.6 g/dL 09/28/2016 Comp Metabolic Its799 GL OB 2.5 g/dL 09/28/2016 Comp Metabolic Xdt497 A/ G Ratio 1.6 Ratio 09/28/2016 Comp Metabolic Kpe972 Os mo 279 mOsmo 09/28/2016 Lipid Ord30 [...] 28.8 pg 09/28/2016 Cbc With Differential Ord2 Gibson% 7.2 % 09/28/2016 Cbc With Differential Ord2 [...] 1.41 K/ul 09/28/2016 Cbc With Differential Ord2 Gibson ABS# 0.5 K/ul 09/28/2016 Cbc With Differential Ord2 Eos ABS# 0.2 K/ul 09/28/2016 Cbc With Differential Ord2 Baso ABS# 0.0 K/ul 09/28/2016 Free T4 Tgy626 FREE T4 1.43 ng/dL 09/28/2016 Tsh Ord6 hTSH II 0.52 uIU/mL 09/28/2016 Tsh Ord6 hTSH II 0.47 uIU/mL 06/16/2016 Comp Metabolic Vbt127 NA 139 mEq/L 06/16/2016 Comp Metabolic Wsy447 K 4.3 mEq/L 06/16/2016 Comp Metabolic Aus425 CL 105 mEq/L 06/16/2016 Comp Metabolic Mjw767 CO2 30.0 mEq/L 06/16/2016 Comp Metabolic Wvo954 AN ION GAP 8 06/16/2016 Comp Metabolic Jxs334 GL UCOSE 90 mg/dL 06/16/2016 Comp Metabolic Bsx597 Cr eat 0.7 mg/dL 06/16/2016 Comp Metabolic Mzj378 eG FR 91 ml/min/1.73m2 06/16 Comp Metabolic Vae487 BUN 15 mg/dL 06/16/2016 Comp Metabolic Soa126 B/ C Ratio 22.4 Ratio 06/16/2016 Comp Metabolic Hsa594 CA LCIUM 8.8 mg/dL 06/16/2016 Comp Metabolic Sln791 AL K PHOS 79 U/L 06/16/2016 Comp Metabolic Pfa177 T(SGOT) 13 U/L 06/16/2016 Comp Metabolic Smt793 AL T(SGPT) 11 U/L 06/16/2016 Comp Metabolic Zfq389 BI LI T 0.5 mg/dL 06/16/2016 Comp Metabolic Xqw965 AL BUMIN 3.9 g/dL 06/16/2016 Comp Metabolic Lqg869 TP RO 6.1 g/dL 06/16/2016 Comp Metabolic Yvl400 GL OB 2.2 g/dL 06/16/2016 Comp Metabolic Pyo914 A/ G Ratio 1.8 Ratio 06/16/2016 Comp Metabolic Bso210 Os mo 278 mOsmo 06/16/2016 Lipid Ord30 [...] 28.9 pg 06/16/2016 Cbc With Differential Ord2 Gibson% 8.1 % 06/16/2016 Cbc With Differential Ord2 [...] 1.70 K/ul 06/16/2016 Cbc With Differential Ord2 Gibson ABS# 0.4 K/ul 06/16/2016 Cbc With Differential Ord2 Eos ABS# 0.2 K/ul 06/16/2016 Cbc With Differential Ord2 Baso ABS# 0.0 K/ul 06/16/2016 Free T4 Elc279 FREE T4 1.42 ng/dL 06/16/2016 Free T4 Edq085 FREE T4 1.34 ng/dL 03/04/2016 Tsh Ord6 hTSH II 0.56 uIU/mL 03/04/2016 Tsh Ord6 hTSH II 0.98 uIU/mL 01/27/2016 Free T4 Qib638 FREE T4 1.19 ng/dL 01/27/2016 Free T4 Qut694 FREE T4 1.69 ng/dL 11/23/2015 Tsh Ord6 hTSH II 0.08 uIU/mL 11/23/2015 Lipid Ord30 CHOL 185 mg/dL 08/21/2015 Lipid Ord30 HDL 50.0 mg/dl 08/21/2015 Lipid Ord30 TRIG 88 mg/dL 08/21/2015 Lipid Ord30 LDL 117 mg/dL 08/21/2015 Lipid Ord30 C/HDL 3.7 Ratio 08/21/2015 Comp Metabolic Pcc347 NA 139 mEq/L 08/21/2015 Comp Metabolic Nda794 K 4.3 mEq/L 08/21/2015 Comp Metabolic Xno538 CL 102 mEq/L 08/21/2015 Comp Metabolic Gvf217 CO2 27.0 mEq/L 08/21/2015 Comp Metabolic Zxk427 AN ION GAP 14 08/21/2015 Comp Metabolic Jqv214 GL UCOSE 89 mg/dL 08/21/2015 Comp Metabolic Wsg304 Cr eat 0.7 mg/dL 08/21/2015 Comp Metabolic Bws386 eG FR 85 ml/min/1.73m2 08/21 Comp Metabolic Byl955 BUN 14 mg/dL 08/21/2015 Comp Metabolic Vzh910 B/ C Ratio 19.7 Ratio 08/21/2015 Comp Metabolic Cdz465 CA LCIUM 9.5 mg/dL 08/21/2015 Comp Metabolic Jpj754 AL K PHOS 123 U/L 08/21/2015 Comp Metabolic Iyu240 T(SGOT) 13 U/L 08/21/2015 Comp Metabolic Oza330 AL T(SGPT) 10 U/L 08/21/2015 Comp Metabolic Oqq674 BI LI T 0.4 mg/dL 08/21/2015 Comp Metabolic Gvn606 AL BUMIN 4.1 g/dL 08/21/2015 Comp Metabolic Dlu512 TP RO 6.8 g/dL 08/21/2015 Comp Metabolic Zrb367 GL OB 2.7 g/dL 08/21/2015 Comp Metabolic Aip745 A/ G Ratio 1.5 Ratio 08/21/2015 Comp Metabolic Okn347 Os mo 277 mOsmo 08/21/2015 Free T4 Xqd996 FREE T4 1.78 ng/dL 08/21/2015 Tsh Ord6 [...] Ord2 RDW 13.9 % 08/21/2015 Quick Strep Hyf2282 Quic k Strep Negative 07/08/2015 Tsh Ord6 hTSH II 0.04 uIU/mL 05/20/2015 Free T4 Lee669 FREE T4 1.50 ng/dL 05/20/2015 Review of [...] Procedure Codes Date DESTRUCT PREMALG LESION CPT-4: 38622 01/19/2018 URINALYSIS NONAUTO W /O SCOPE CPT-4: 69436 09/12/2017 TRIAMCINOLONE ACET I [place] NOS CPT-4: J3301 06/14/2017 THER/PROPH/DIAG INJ SC/IM CPT-4: 36778 06/14/2017 PRESCRIP TRANSMIT A ERX SY CPT-4: G8553 06/14/2017 TRIAMCINOLONE ACET I [place] NOS CPT-4: J3301 03/27/2017 THER/PROPH/DIAG INJ SC/IM CPT-4: 08070 12/07/2016 TRIAMCINOLONE ACET I [place] NOS CPT-4: J3301 12/07/2016 THER/PROPH/DIAG INJ SC/IM CPT-4: 94385 11/28/2016 TRIAMCINOLONE ACET I [place] NOS CPT-4: J3301 11/28/2016 Vital Signs Date Vital 05/07/2019 Blood Pressure 1: 138/68 Code: 8480-6 BMI: 36.0 Code: 60569-6 Heart Rate 1: 86 bpm Height: 5'6" SpO2: 98% Weight: 223 lbs 04/29/2019 Blood Pressure 1: 144/60 Code: 8480-6 BMI: 36.0 Code: 68223-2 Heart Rate 1: 73 bpm Height: 5'6" SpO2: 98% Weight: 223 lbs 03/21/2019 Blood Pressure 1: 132/64 Code: 8480-6 BMI: 36.2 Code: 62976-8 Heart Rate 1: 76 bpm Height: 5'6" SpO2: 94% Weight: 224 lbs 01/22/2019 Blood Pressure 1: 132/66 Code: 8480-6 BMI: 37.1 Code: 55532-2 Heart Rate 1: 73 bpm Height: 5'6" SpO2: 96% Weight: 230 lbs 11/21/2018 Blood Pressure 1: 120/64 Code: 8480-6 Heart Rate 1: 64 bpm 10/30/2018 Blood Pressure 1: 144/70 Code: 8480-6 BMI: 37.0 Code: 81448-3 Heart Rate 1: 76 bpm Height: 5'6" SpO2: 96% Weight: 229 lbs 06/28/2018 Blood Pressure 1: 110/66 Code: 8480-6 BMI: 37.1 Code: 78731-3 Heart Rate 1: 73 bpm Height: 5'6" SpO2: 98% Weight: 230 lbs 04/04/2018 Blood Pressure 1: 128/76 Code: 8480-6 BMI: 37.9 Code: 88261-4 Heart Rate 1: 86 bpm Height: 5'6" SpO2: 98% Weight: 235 lbs 01/19/2018 Blood Pressure 1: 122/68 Code: 8480-6 Heart Rate 1: 78 bpm Height: 5'6" SpO2: 97% Weight: 01/05/2018 Blood Pressure 1: 138/78 Code: 8480-6 BMI: 38.4 Code: 79759-4 Heart Rate 1: 73 bpm Height: 5'6" SpO2: 95% Weight: 238 lbs 11/29/2017 Blood Pressure 1: 138/80 Code: 8480-6 BMI: 38.7 Code: 07403-4 Heart Rate 1: 71 bpm Height: 5'6" SpO2: 97% Weight: 240 lbs 10/25/2017 Blood Pressure 1: 136/72 Code: 8480-6 BMI: 38.7 Code: 17079-4 Heart Rate 1: 92 bpm Height: 5'6" SpO2: 98% Weight: 240 lbs 09/12/2017 Blood Pressure 1: 132/68 Code: 8480-6 BMI: 39.7 Code: 42880-5 Heart Rate 1: 76 bpm Height: 5'6" SpO2: 98% Weight: 246 lbs 06/14/2017 Blood Pressure 1: 130/80 Code: 8480-6 BMI: 39.4 Code: 67052-4 Heart Rate 1: 73 bpm Height: 5'6" SpO2: 95% Temperature: 36.9 (C ) / 98.5 (F) Weight: 244 lbs 05/10/2017 Blood Pressure 1: 128/68 Code: 8480-6 BMI: 38.7 Code: 28511-5 Heart Rate 1: 69 bpm Height: 5'6" SpO2: 97% Weight: 240 lbs 04/19/2017 Blood Pressure 1: 138/74 Code: 8480-6 BMI: 38.7 Code: 99951-4 Heart Rate 1: 73 bpm Height: 5'6" SpO2: 96% Weight: 240 lbs 03/27/2017 Blood Pressure 1: 142/84 Code: 8480-6 BMI: 38.7 Code: 64203-3 Heart Rate 1: 69 bpm Height: 5'6" SpO2: 97% Weight: 240 lbs 01/26/2017 Blood Pressure 1: 136/68 Code: 8480-6 Heart Rate 1: 64 bpm Height: 5'6" SpO2: 96% Weight: 12/07/2016 Blood Pressure 1: 130/72 Code: 8480-6 BMI: 39.7 Code: 69398-0 Heart Rate 1: 73 bpm Height: 5'6" SpO2: 93% Temperature: 36.8 (C ) / 98.3 (F) Weight: 246 lbs 11/28/2016 Blood Pressure 1: 138/60 Code: 8480-6 BMI: 39.7 Code: 16677-6 Heart Rate 1: 81 bpm Height: 5'6" SpO2: 97% Weight: 246 lbs 11/15/2016 Blood Pressure 1: 134/78 Code: 8480-6 BMI: 39.7 Code: 36928-3 Heart Rate 1: 75 bpm Height: 5'6" SpO2: 93% Temperature: 36.8 (C ) / 98.2 (F) Weight: 246 lbs 10/17/2016 Blood Pressure 1: 120/64 Code: 8480-6 BMI: 38.4 Code: 20422-1 Heart Rate 1: 69 bpm Height: 5'6" SpO2: 98% Temperature: 37.2 (C ) / 98.9 (F) Weight: 238 lbs 09/28/2016 Blood Pressure 1: 158/76 Code: 8480-6 BMI: 39.4 Code: 91373-8 Heart Rate 1: 71 bpm Height: 5'6" SpO2: 97% Weight: 244 lbs 06/29/2016 Blood Pressure 1: 124/60 Code: 8480-6 BMI: 38.7 Code: 69832-2 Heart Rate 1: 71 bpm Height: 5'6" SpO2: 98% Weight: 240 lbs 06/01/2016 Blood Pressure 1: 120/62 Code: 8480-6 BMI: 38.6 Code: 37327-0 Heart Rate 1: 76 bpm Height: 5'6" SpO2: 98% Weight: 239 lbs 05/11/2016 Blood Pressure 1: 140/80 Code: 8480-6 BMI: 38.1 Code: 50204-8 Heart Rate 1: 88 bpm Height: 5'6" SpO2: 97% Weight: 236 lbs 04/05/2016 Blood Pressure 1: 142/80 Code: 8480-6 BMI: 38.4 Code: 86634-6 Heart Rate 1: 96 bpm Height: 5'6" SpO2: 98% Weight: 238 lbs 04/01/2016 Blood Pressure 1: 136/88 Code: 8480-6 BMI: 39.2 Code: 90089-7 Heart Rate 1: 86 bpm Height: 5'6" SpO2: 96% Weight: 243 lbs 01/26/2016 Blood Pressure 1: 124/76 Code: 8480-6 BMI: 39.2 Code: 80161-4 Heart Rate 1: 76 bpm Height: 5'6" SpO2: 97% Weight: 243 lbs 12/21/2015 Blood Pressure 1: 120/64 Code: 8480-6 BMI: 37.0 Code: 82005-2 Heart Rate 1: 98 bpm Height: 5'6" SpO2: 97% Weight: 229 lbs 10/12/2015 Blood Pressure 1: 150/64 Code: 8480-6 BMI: 37.4 Code: 44723-1 Heart Rate 1: 70 bpm Height: 5'6" SpO2: 94% Weight: 232 lbs 08/24/2015 Blood Pressure 1: 128/74 Code: 8480-6 BMI: 36.8 Code: 77748-1 Heart Rate 1: 88 bpm Height: 5'6" SpO2: 94% Temperature: 36.8 (C ) / 98.3 (F) Weight: 228 lbs 06/01/2015 Blood Pressure 1: 134/68 Code: 8480-6 BMI: 36.0 Code: 53200-6 Heart Rate 1: 70 bpm Height: 5'6" SpO2: 98% Weight: 223 lbs 05/21/2015 Blood Pressure 1: 126/72 Code: 8480-6 BMI: 35.2 Code: 14431-3 Heart Rate 1: 63 bpm Height: 5'6" SpO2: 95% Weight: 218 lbs 5 oz 03/26/2015 Blood Pressure 1: 140/62 Code: 8480-6 BMI: 35.3 Code: 87995-3 Heart Rate 1: 68 bpm Height: 5'6" Weight: 219 lbs 03/11/2015 Blood Pressure 1: 130/80 Code: 8480-6 BMI: 34.9 Code: 01354-1 Heart Rate 1: 76 bpm Height: 5'6" Temperature: 37.1 (C ) / 98.7 (F) Weight: 216 lbs 12/11/2014 Blood Pressure 1: 134/62 Code: 8480-6 BMI: 34.2 Code: 48008-3 Heart Rate 1: 72 bpm Height: 5'6" Weight: 212 lbs 09/18/2014 Blood Pressure 1: 148/80 Code: 8480-6 BMI: 34.7 Code: 23891-7 Heart Rate 1: 68 bpm Height: 5'6" Weight: 215 lbs 07/31/2014 Blood Pressure 1: 124/72 Code: 8480-6 BMI: 36.2 Code: 53586-2 Heart Rate 1: 68 bpm Height: 5'6" [...] Severity mi ld 09/28/2016 None hypothyroid Quality sedimentationist jamee 09/28/2016 None hypothyroid Onset and Resolution [...] Severity mi ld 06/01/2016 None hypothyroid Quality sedimentationist jamee 06/01/2016 None hypothyroid Onset and Resolution [...] and Resolution resolved 04/05/2016 None hypothyroid Quality sedimentationist jamee 04/05/2016 None hypothyroid Onset and Resolution [...] a ssociated factors 10/12/2015 None hypothyroid Quality sedimentationist jamee 08/24/2015 None hypothyroid Onset and Resolution [...] Severity mod erate 06/01/2015 None hypothyroid Quality sedimentationist jamee 05/21/2015 None hypothyroid Onset of Symptom [...] Findings brittle nails 03/11/2015 None hypothyroid Quality sedimentationist jamee 03/11/2015 None hypothyroid Quality stab le [...] 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 PATIENT, LEVEL III Diagnosis: Pain in left knee[ICD10: M25.562] Diagnosis: Other pruritus[ICD10: L29.8] Diagnosis: Rash and other nonspecific skin eruption[ICD10: R21] [facility] CPT-4: 20553 04/29/2019 ([id number]) [id number] EST. P ATIENT, LEVEL IV Diagnosis: Hypothyroidism, unspecified[ICD10: E03.9] Diagnosis: Changes in skin texture[ICD10: R23.4] Diagnosis: Mild intermittent asthma, uncomplicated[ICD10: J45.20] [facility] CPT-4: 57263 03/21/2019 ([id number]) 52760 EST. P ATIENT, LEVEL IV Diagnosis: Mild intermittent asthma, uncomplicated[ICD10: J45.20] Diagnosis: Hypothyroidism, unspecified[ICD10: E03.9] Diagnosis: Low back pain[ICD10: M54.5] [facility] CPT- 4: 75551 01/22/2019 ([id number]) Miscellaneou s no charge Diagnosis: Essential (primary) hypertension[ICD10: I10] Damari Finn MD, [facility] CPT-4: 55995 11/21/2018 ([id number]) 47473 EST. [facility]: Essential (primary) hypertension[ICD10: I10] Diagnosis: Hypothyroidism, unspecified[ICD10: E03.9] Diagnosis: Low back pain[ICD10: M54.5] Lynn Finn MD, [facility] CPT- 4: 44565 10/30/2018 ([id number]) 26835 EST. [facility] Diagnosis: Acute recurrent maxillary sinusitis[ICD10: J01.01] Diagnosis: Other mucopurulent conjunctivitis, left eye[ICD10: H10.022] Diagnosis: Other allergic rhinitis[ICD10: J30.89] Lynn Finn MD, [facility] CPT-4: 10957 06/28/2018 [id number] EST. PATIENT, LEVEL IV Diagnosis: Essential (primary) hypertension[ICD10: I10] Diagnosis: Other specified hypothyroidism[ICD10: E03.8] Diagnosis: Other specified anemias[ICD10: D64.89] Diagnosis: Localized edema[ICD10: R60.0] Mishel Finn MD, [facility] CPT-4: 70497 04/04/2018 ([id number]) 66668 EST. [facility] Diagnosis: Mild persistent asthma, uncomplicated[ICD10: J45.30] Diagnosis: Actinic keratosis[ICD10: L57.0] Lynn Finn MD, [facility] CPT- 4: 00748 01/05/2018 ([id number]) Martaou s no charge Diagnosis: Essential (primary) hypertension[ICD10: I10] Damari Finn MD, [facility] CPT-4: 22505 12/12/2017 [id number] EST. PATIENT, LEVEL III Diagnosis: Essential (primary) hypertension[ICD10: I10] Diagnosis: Atrophy of thyroid (acquired)[ICD10: E03.4] Diagnosis: Low back pain[ICD10: M54.5] Mishel Finn MD, [facility] CPT-4: 02667 11/29/2017 [id number] EST. PATIENT, LEVEL III Diagnosis: Pain in left hip[ICD10: M25.552] Mishel Finn MD, [facility] CPT-4: 85319 10/25/2017 [id number] EST. PATIENT, LEVEL IV Diagnosis: Localized edema[ICD10: R60.0] Mishel Finn MD, [facility] CPT-4: 77314 09/12/2017 [id number] EST. PATIENT, LEVEL IV Diagnosis: Mild persistent asthma with (acute) exacerbation[ICD10: J45.31] Mishel Finn MD, [facility] CPT-4: 45278 06/14/2017 72668 EST. PATIENT, LEVEL III Diagnosis: Localized edema[ICD10: R60.0] Diagnosis: Mild persistent asthma, uncomplicated[ICD10: J45.30] Mishel Finn MD, [facility] CPT-4: 51174 05/10/2017 85489 EST. PATIENT, LEVEL III Diagnosis: Mild persistent asthma with (acute) exacerbation[ICD10: J45.31] Mishel Finn MD, [facility] CPT-4: 71999 04/19/2017 ([id number]) 02859 EST. P ATIENT, LEVEL IV Diagnosis: Contusion of left wrist, initial encounter[ICD10: S60.212A] Diagnosis: Hypothyroidism, unspecified[ICD10: E03.9] Diagnosis: Mild persistent asthma with (acute) exacerbation[ICD10: J45.31] Diagnosis: Low back pain[ICD10: M54.5] Lynn Finn MD, [facility] CPT- 4: 43928 03/27/2017 ([id number]) 81113 EST. P ATIENT, LEVEL IV Diagnosis: Essential (primary) hypertension[ICD10: I10] Diagnosis: Atrophy of thyroid (acquired)[ICD10: E03.4] Diagnosis: Low back pain[ICD10: M54.5] Damari Finn MD, [facility] CPT-4: 62417 01/26/2017 40871 EST. PATIENT, LEVEL III Diagnosis: Other allergic rhinitis[ICD10: J30.89] Diagnosis: Mild persistent asthma with (acute) exacerbation[ICD10: J45.31] Mishel Finn MD, [facility] CPT-4: 27709 12/07/2016 53086 EST. PATIENT, LEVEL III Diagnosis: Mild persistent asthma with (acute) exacerbation[ICD10: J45.31] Mishel Finn MD [facility] CPT-4: 09913 11/28/2016 77990 EST. PATIENT, LEVEL III Diagnosis: Mild persistent asthma with (acute) exacerbation[ICD10: J45.31] Diagnosis: Acute bronchitis due to other specified organisms[ICD10: J20.8] Mishel Finn MD, [facility] CPT-4: 42711 11/15/2016 99509 EST. PATIENT, LEVEL IV Diagnosis: Other acute sinusitis[ICD10: J01.80] Diagnosis: Other allergic rhinitis[ICD10: J30.89] Diagnosis: Mild persistent asthma with (acute) exacerbation[ICD10: J45.31] Mishel Finn MD, [facility] CPT-4: 78876 10/17/2016 ([id number]) 06322 EST. P ATIENT, LEVEL IV Diagnosis: Essential (primary) hypertension[ICD10: I10] Diagnosis: Low back pain[ICD10: M54.5] Damari Finn MD, [facility] CPT-4: 48793 09/28/2016 89140 EST. PATIENT, LEVEL III Diagnosis: Tinea barbae and tinea capitis[ICD10: B35.0] Diagnosis: Other specified hypothyroidism[ICD10: E03.8] Mishel Finn MD, [facility] CPT-4: 67983 06/29/2016 ([id number]) 42825 EST. P ATIENT, LEVEL IV Diagnosis: Essential (primary) hypertension[ICD10: I10] Diagnosis: Atrophy of thyroid (acquired)[ICD10: E03.4] Diagnosis: Rash and other nonspecific skin eruption[ICD10: R21] Damari Finn MD, [facility] CPT-4: 56966 06/01/2016 ([id number]) 46868 EST. P ATIENT, LEVEL III Diagnosis: Cellulitis of groin[ICD10: L03.314] Damari Finn MD, [facility] CPT- 4: 42772 05/11/2016 ([id number]) 05176 EST. P ATIENT, LEVEL IV Diagnosis: Hypothyroidism, unspecified[ICD10: E03.9] Diagnosis: Candidiasis of vulva and vagina[ICD10: B37.3] Diagnosis: Essential (primary) hypertension[ICD10: I10] Diagnosis: Low back pain[ICD10: M54.5] Lynn Finn MD, [facility] CPT- 4: 30458 04/05/2016 11495 EST. PATIENT, LEVEL III Diagnosis: Other acute sinusitis[ICD10: J01.80] Diagnosis: Rash and other nonspecific skin eruption[ICD10: R21] Mishel Finn MD, [facility] CPT-4: 88312 04/01/2016 ([id number]) 68361 EST. P ATIENT, LEVEL IV Diagnosis: Essential (primary) hypertension[ICD10: I10] Diagnosis: Hypothyroidism, unspecified[ICD10: E03.9] Diagnosis: Low back pain[ICD10: M54.5] Diagnosis: Other obesity due to excess calories[ICD10: E66.09] Lynn Finn MD, [facility] CPT-4: 88503 01/26/2016 44713 EST. PATIENT, LEVEL IV Diagnosis: Essential (primary) hypertension[ICD10: I10] Diagnosis: Cutaneous abscess of face[ICD10: L02.01] Mishel Finn MD, [facility] CPT-4: 95341 12/21/2015 ([id number]) 36376 EST. P ATIENT, LEVEL III Diagnosis: Cutaneous abscess of groin[ICD10: L02.214] Diagnosis: Hypothyroidism, unspecified[ICD10: E03.9] Lynn Finn MD, [facility] CPT-4: 10523 10/12/2015 ([id number]) 02083 EST. P ATIENT, LEVEL III Diagnosis: Essential (primary) hypertension[ICD10: I10] Diagnosis: Hypothyroidism, unspecified[ICD10: E03.9] Diagnosis: Allergic rhinitis, unspecified[ICD10: J30.9] Lynn Finn MD, [facility] CPT-4: 83826 08/24/2015 ([id number]) 41169 EST. P ATIENT, LEVEL III Diagnosis: Skin infection[ICD9: 686.9] Damari Finn MD, [facility] CPT-4: 51570 06/01/2015 ([id number]) 53011 EST. P ATIENT, LEVEL III Diagnosis: Hypothyroidism[ICD9: 244.9] Diagnosis: ESSENTIAL HYPERTENSION[ICD9: 401.9] Damari Finn MD, [facility] CPT- 4: 79011 05/21/2015 ([id number]) 56940 EST. P ATIENT, LEVEL III Diagnosis: Hypothyroidism[ICD9: 244.9] Diagnosis: Fingernail abnormalities[ICD9: 703.8] Lynn Finn MD, [facility] CPT-4: 55205 03/26/2015 ([id number]) 29641 EST. P ATIENT, LEVEL II Diagnosis: Hypothyroidism[ICD9: 244.9] Maritza Finn MD, [facility] CPT-4: 15560 03/11/2015 ([id number]) 22024 EST. P ATIENT, LEVEL IV Diagnosis: ESSENTIAL HYPERTENSION[ICD9: 401.9] Diagnosis: Low back pain[ICD9: 724.2] Diagnosis: Hypothyroidism[ICD9: 244.9] Damari Finn MD, [facility] CPT-4: 65695 12/11/2014 ([id number]) 13602 EST. P ATIENT, LEVEL IV Diagnosis: Hidradenitis suppurativa[ICD9: 705.83] Diagnosis: ESSENTIAL HYPERTENSION[ICD9: 401.9] Diagnosis: Low back pain[ICD9: 724.2] Diagnosis: Lumbar spinal stenosis[ICD9: 724.02] Diagnosis: HYPOTHYROIDISM[ICD9: 244.9] Damari Finn MD, [facility] CPT-4: 54835 09/18/2014 Office outpatient ne w 30 minutes Diagnosis: ESSENTIAL HYPERTENSION[ICD9: 401.9] Diagnosis: Hypothyroidism[ICD9: 244.9] Diagnosis: Low back pain[ICD9: 724.2] Lynn Finn MD, [facility] CPT- 4: 58900 07/31/2014 Plan of Care Planned Activity Notes [...] with any changes, questions, or concerns. 05/07/2019 Patient Education: Patient Medication Summary Completed [...] or concerns. 04/29/2019 Appointment: Mishel Balderrama WPtel: [facility]5 [facility] (30 min) Complex 04/29/2019 Patient Education: Patient Medication Summary Completed 04/29/2019 Appointment: Lynn Arenas WPtel: [address] [place], [place] [phone] (30 min) Complex 04/23/2019 Visit Plan: Hypothyroidism -patient is having symptoms of over supplementation -check labs today Skin changes-patient used to see Dr Solitario but hasn't see anyone recently -recommend skin check with Dr Yamel boyd- stable- no change in current treatment 03/21/2019 Appointment: Lynn Arenas WPtel: [facility]5 [phone] (30 min) Complex 03/21/2019 Patient Education: [...] medical practice. 01/22/2019 Appointment: Lynn Arenas WPtel: [facility]7 [phone] (30 min) Complex 01/22/2019 Patient Education: [...] as indicated 10/30/2018 Appointment: [phone] [facility] 10/30/2018 Patient Education: Patient Medication Summary Completed 10/30/2018 Patient Education: Hypertension Completed 10/30/2018 Patient Education: Back Pain Completed 10/30/2018 Appointment: Lynn Arenas WPtel: [phone] [phone] (30 min) Complex 10/26/2018 Patient Education: Patient Medication Summary Completed 10/23/2018 Appointment: Lynn Arenas WPtel: [phone] [phone] [place] (15 min) Moderate 10/19/2018 Appointment: [facility]atin[phone] ([facility]) Moderate 09/19/2018 Visit Plan: Sinusitis [...] times daily. 06/28/2018 Appointment: [phone] [place] (30 min) Complex 06/28/2018 Patient Education: [...] to monitor. 04/04/2018 Appointment: Mishel Balderrama WPtel: [address] [place], [place] [address] (15 min) Moderate 04/04/2018 Patient Education: Patient Medication Summary Completed 04/04/2018 Visit Plan: Wound Instructions - Pt was instructed to keep the wound clean, wash with antibacterial soap, use triple antibiotic ointment, call if redness, pustular drainage, or any other acute concerns. 01/19/2018 Appointment: Lynn Arenas WPtel: [facility]5 [phone] (30 min) Complex 01/19/2018 Patient Education: [...] acute concerns. 01/05/2018 Appointment: Lynn Arenas WPtel: [phone] [phone] (30 min) Complex 01/05/2018 Patient Education: [...] not improve. 11/29/2017 Appointment: [phone] ([facility]) Complex 11/29/2017 Patient Education: Patient [...] improve. 10/25/2017 Appointment: [facility] Balderr[phone] [facility] [place] (30 min) Complex 10/25/2017 Patient Education: [...] edema. 09/12/2017 Appointment: [facility] Balderr[phone] [facility] [place] (30 min) Complex 09/12/2017 Patient Education: Patient Medication Summary Completed 09/12/2017 Appointment: [facility] [phone] [phone] [place] (30 min) Complex 06/27/2017 Visit Plan: [...] changes. 06/14/2017 Appointment: [facility] Balderrama [phone] [facility] (15 min) Moderate 06/14/2017 Patient Education: Patient [...] changes 05/10/2017 Appointment: [facility] Balderrama [phone] [facility] (15 min) Moderate 05/10/2017 Patient Education: Patient [...] changes. 04/19/2017 Appointment: [facility] Balderrama [phone] [facility] [place] (15 min) Moderate 04/19/2017 Patient Education: [...] on previous levels of control. Low back kyxw-wilhjsc-gqrrhq tramadol for prn use 03/27/2017 Appointment: Lynn Arenas WPtel: [facility]9 [phone] (30 min) Complex 03/27/2017 Patient Education: Patient [...] improve. 01/26/2017 Appointment: Dam[facility] Finn [facility]el[phone] [facility] (15 min) Moderate 01/26/2017 Patient Education: [...] or concerns. 12/07/2016 Appointment: [facility] Balderrama [facility]el[phone] [facility] (15 min) Moderate 12/07/2016 Patient Education: Patient [...] acute changes. 11/28/2016 Appointment: [facility] Balderrama [phone] [facility] (15 min) Moderate 11/28/2016 Patient Education: Patient Medication Summary Completed 11/28/2016 Appointment: Mishel Balderrama WPtel: [phone] [phone] (15 min) Moderate 11/24/2016 Visit Plan: [...] changes. 11/15/2016 Appointment: Mishel Balderrama WPtel: [phone] [facility] (30 min) Complex 11/15/2016 Patient Education: [...] acute changes. 10/17/2016 Appointment: Mishel Balderrama WPtel: [phone] [phone] (30 min) Complex 10/17/2016 Patient Education: Patient [...] tylenol 09/28/2016 Appointment: Damari Finn [facility]el: [phone] (15 min) Moderate 09/28/2016 Patient Education: Patient [...] of control. 06/29/2016 Appointment: Lynn Arenas [facility]Ptel[phone] [phone] [place] (15 min) Moderate 06/29/2016 Patient Education: [...] fluconazole 06/01/2016 Appointment: [phone] (15 min) Moderate 06/01/2016 Patient Education: Patient Medication Summary Completed 06/01/2016 Patient Education: Obesity Completed 06/01/2016 Visit Plan: Cellulitis - continue w ith oral antibiotics as previously directed, return to clinic as previously directed, call for acute change in symptoms, worsening redness, warmth, discharge. 05/11/2016 Appointment: [facility]el[phone] [facility] (15 min) Moderate 05/11/2016 Patient Education: [...] any concerns. 04/01/2016 Appointment: Lynn Arenas WPtel: [phone] [phone] (30 min) Complex 04/01/2016 Patient Education: Patient Medication Summary Completed 04/01/2016 Patient Education: Obesity Completed 04/01/2016 Appointment: Lynn Arenas WPtel: [phone] [phone] (30 min) Complex 03/29/2016 Visit Plan: [...] levels of control. Low back pain-refill tramadol Mlrxp-vnjcazoksl-oykkgqsf resolved 01/26/2016 Appointment: Lynn Arenas WPtel: [facility]1 [phone] (30 min) Complex 01/26/2016 Patient Education: Patient Medication Summary Completed 01/26/2016 Patient Education: Obesity Completed 01/26/2016 Care Plan: BMI Above normal followup RADHA F-MGMT EDUC & TRAIN 1 PT Pending 01/26/2016 Care Plan: Referral Order SNOMED-CT : [id number] Pending 01/07/2016 Appointment: Lynn Arenas WPtel: [facility]3 [phone] (15 min) Moderate 12/24/2015 Visit Plan: Hypertension [...] Pending 12/21/2015 Visit Plan: cellulitis/abscess of g min-use bactroban ointment as needed -keep groin clean [...] nor improving. 06/01/2015 Appointment: Dam[facility] Finn [facility]Ptel[phone] [facility] (15 min) Moderate 06/01/2015 Patient Education: [...] refill tramadol 12/11/2014 Appointment: Damari Finn WPtel: [address] [place], [place] [phone] [facility] follow up 12/11/2014 Patient Education: Patient Medication Summary Completed 12/11/2014 Patient Education: Hypertension Completed 12/11/2014 Appointment: Damari Finn WPtel: [address] [place], [place] [phone] [place] [address] follow up 11/27/2014 Visit Plan: Hidradenitis Suppurativ [...] to get her back MRI done at [facility] in [place] as that is where her specialist will be once we get her an appt with one of the local Neurosurgeons. 09/18/2014 Appointment: Damari Finn WPtel: [address] [place], [place] [phone] Follow up 09/18/2014 Patient Education: Patient Medication [...] as scheduled 07/31/2014 Appointment: Lynn A[facility]as [facility]el: [phone] [phone] [place] New Patient 07/31/2014 Patient Education: Patient [...] . Asthma Exacerbation - Asthma is a sedimentationist jamee problem for this patient, however, the [...] on previous levels of control. Low back hfav-mxgrkia-yjtokd tramadol for prn use claritin or zyrtec [...] . Asthma Exacerbation - Asthma is a sedimentationist jamee problem for this patient, however, the [...] . Asthma Exacerbation - Asthma is a sedimentationist jamee problem for this patient, however, the [...] symptoms, worsening redness, warmth, discharge. Declined Procedure: (35521) FLU VAC NO PRSV 4 JUSTYNA 3 YRS+; Declined Reason: refused Physical therapy at [facility] . Hypertension - well controlled - [...] levels of control. Low back pain-refill tramadol Hoeuu-famzfblfpx-qbupdnbg resolved . Hypertension - wel l controlled [...] or concerns. I will call your tra lizzethol to [facility] diflucan 150mg daily x 7 [...] to get her back MRI done at [facility] in [place] as that is where her specialist will [...]
--- OUTSIDE RECORDS SUMMARY | 2020-02-20 18:38 | XMS REPORT | CCD ---
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 Unknown Has never used illegal drugs 014 Allergies, Adverse Reactions, Alerts Substance Reaction Codes Entered Date Inactivated Date Status * NO KNOWN FOOD BEVERLY RGIES Unknown 07/31/2014 No Inactive Date Active bactrim hives, rash RxNorm: 636632 04/05/2016 No Inactive Date Active Past Medical History Illness Codes Condition Status Onset Date Resolved Date Other pruritus ICD-9: 698.9 ICD-10: L29.8 Active [...] 461.0 ICD-10: J01.01 Active 06/28/2018 Unknown Other allergic rhinitis ICD-9: 477.8 ICD-10: J30.89 Active 10/17/2016 Unknown Other mucopurulent c onjunctivitis, left eye [...] ICD-9: 466.0 ICD-10: J20.8 Active 11/15/2016 Unknown Other acute sinusitis ICD-9: 461.8 ICD-10: J01.80 Active 03/31/2016 Unknown Tinea barbae and tin ea capitis [...] Condition Codes Effectiv e Dates Condition Status Other pruritus ICD-9: 698.9 ICD-10: L29.8 04/29/2019 [...] ICD-9: 461.0 ICD-10: J01.01 06/28/2018 Active Other allergic rhinitis ICD-9: 477.8 ICD-10: J30.89 10/17/2016 Active Other mucopurulent c onjunctivitis, left eye [...] organisms ICD-9: 466.0 ICD-10: J20.8 11/15/2016 Active Other acute sinusitis ICD-9: 461.8 ICD-10: J01.80 03/31/2016 Active Tinea barbae and tin ea capitis [...] Fill Instructions lorazepam 1 mg tablet RxNorm: 401563 Tablet(s) TAKE TWO TABLETS BY MOUTH AT B EDTIME NEEDED FOR INSOMNIA AND ONE TABLET DAILY NEEDED ANXIETY 05/07/2019 07/05/2019 Active tramadol 50 mg tablet RxNorm: 421373 1 Tablet(s) PO Q4 PRN as needed for pain 05/06/2019 06/14/2019 Ac tive tramadol 50 mg tablet RxNorm: 822587 TAKE ONE TABLET BY MOUTH EVERY 6 HOURS A S NEEDED FOR PAIN 05/06/2019 06/04/2019 Active prednisone 20 mg tablet RxNorm: 939074 1 Tablet(s) PO BID x 2 days, then 1 pill daily x 3 days, then 1/2 pill every other day x 3 doses. 04/29/2019 No Stop Date Active tramadol 50 mg tablet RxNorm: 869058 1 Tablet(s) PO Q6 PRN as needed for pain 04/09/2019 05/06/2019 In active levothyroxine 125 mc g tablet RxNorm: 483109 1 Tablet(s) PO daily TAKE ONE TABLET BY MOUTH DAILY ON AN EMPTY STOMACH 03/25/2019 06/16/2020 Active lorazepam 1 mg tablet RxNorm: 343107 Tablet(s) TAKE TWO TABLETS BY MOUTH AT B EDTIME NEEDED FOR INSOMNIA AND ONE TABLET DAILY NEEDED ANXIETY 03/15/2019 05/06/2019 Inactive tramadol 50 mg tablet RxNorm: 761941 1 Tablet(s) PO Q4 PRN as needed for pain 03/15/2019 04/08/2019 In active tramadol 50 mg tablet RxNorm: 447783 1 Tablet(s) PO Q4 PRN as needed for pain 02/20/2019 03/14/2019 In active lorazepam 1 mg tablet RxNorm: 931482 Tablet(s) TAKE TWO TABLETS BY MOUTH AT B EDTIME NEEDED FOR INSOMNIA AND ONE TABLET DAILY NEEDED ANXIETY 01/04/2019 03/03/2019 Inactive Keflex 500 mg capsule RxNorm: 074138 1 Capsule(s) PO TID 12/05/2018 12/11/2018 Inactive tramadol 50 mg tablet RxNorm: 758281 1 Tablet(s) PO Q4 PRN as needed for pain 12/05/2018 01/12/2019 In active ciprofloxacin 0.3 % eye drops RxNorm: 738033 INSTILL TWO DROPS TO THE AFFECTED EYE(S) THREE TIMES A DAY 11/23/2018 12/25/2018 Inactive ProAir HFA 90 mcg/ac tuation aerosol inhaler RxNorm: 8336287 1-2 Puff(s) INH Q4 P RN INHALE 1 TO 2 PUFFS FOUR TIMES A DAY NEEDED FOR ASTHMA 10/30/2018 01/27/2019 Inactive levothyroxine 137 mc g tablet RxNorm: 030001 1 Tablet(s) PO daily TAKE ONE TABLET BY MOUTH DAILY ON AN EMPTY STOMACH 10/30/2018 03/24/2019 Inactive tramadol 50 mg tablet RxNorm: 842410 1 Tablet(s) PO Q4 PRN as needed for pain 10/29/2018 12/04/2018 In active levothyroxine 125 mc g tablet RxNorm: 091889 1 Tablet(s) PO daily TAKE ONE TABLET BY MOUTH DAILY ON AN EMPTY STOMACH 09/06/2018 10/29/2018 Inactive lorazepam 1 mg tablet RxNorm: 814097 Tablet(s) TAKE TWO TABLETS BY MOUTH AT B EDTIME NEEDED FOR INSOMNIA AND ONE TABLET DAILY NEEDED ANXIETY 09/06/2018 11/02/2018 Inactive tramadol 50 mg tablet RxNorm: 008095 1 Tablet(s) PO Q4 PRN as needed for pain 09/06/2018 10/15/2018 In active tramadol 50 mg tablet RxNorm: 824407 1 Tablet(s) PO Q4 PRN as needed for pain 07/06/2018 08/14/2018 In active ciprofloxacin 0.3 % eye drops RxNorm: 131441 2 Drop(s) ophthalmic (eye) TID 06/28/2018 07/07/2018 In active lorazepam 1 mg tablet RxNorm: 221548 Tablet(s) TAKE TWO TABLETS BY MOUTH AT B EDTIME NEEDED FOR INSOMNIA AND ONE TABLET DAILY NEEDED ANXIETY 06/28/2018 08/26/2018 Inactive doxycycline hyclate 100 mg tablet RxNorm: 4366108 1 Tablet(s) PO BID 06/28/2018 07/04/2018 Inactive tramadol 50 mg tablet RxNorm: 931199 1 Tablet(s) PO Q4 PRN as needed for pain 06/13/2018 07/05/2018 In active lorazepam 1 mg tablet RxNorm: 688374 Tablet(s) TAKE TWO TABLETS BY MOUTH AT B EDTIME NEEDED FOR INSOMNIA AND ONE TABLET DAILY NEEDED ANXIETY 05/23/2018 06/27/2018 Inactive tramadol 50 mg tablet RxNorm: 172739 1 Tablet(s) PO Q4 PRN as needed for pain 05/23/2018 06/12/2018 In active levothyroxine 125 mc g tablet RxNorm: 061200 Tablet(s) TAKE ONE TA BLET BY MOUTH DAILY ON AN EMPTY STOMACH 05/23/2018 09/05/2018 Inactive tramadol 50 mg tablet RxNorm: 253534 1 Tablet(s) PO Q4 PRN as needed for pain 05/17/2018 05/22/2018 In active levothyroxine 125 mc g tablet RxNorm: 103572 TAKE ONE TABLET BY MO NYH DAILY 05/15/2018 06/27/2018 In active levothyroxine 125 mc g tablet RxNorm: 273243 TAKE ONE TABLET BY MO UTH DAILY 05/15/2018 06/27/2018 In active tramadol 50 mg tablet RxNorm: 453435 1 Tablet(s) PO Q4 PRN as needed for pain 04/30/2018 05/16/2018 In active Advair Diskus 100 mc g-50 mcg/dose powder for inhalation RxNorm: 6679037 1 Puff(s) INH BID 04/06/2018 01/21/2019 Inactive Symbicort 80 mcg-4.5 mcg/actuation HFA aerosol inhaler RxNorm: 3860221 2 Puff(s) INH BID 04/06/2018 01/21/2019 Inactive Advair Diskus 250 mc g-50 mcg/dose powder for inhalation RxNorm: 5886908 1 Puff(s) INH BID 04/05/2018 09/01/2018 Inactive Zyrtec 10 mg tablet RxNorm: 7349388 1 Tablet(s) PO daily x1 week then PRN 04/05/2018 08/02/2018 In active lisinopril 20 mg-hyd rochlorothiazide 25 mg tablet RxNorm: 798304 Tablet(s) TAKE ONE TABLET BY MOUTH DAILY 04/05/2018 10/29/2018 Inactive Zyrtec 10 mg tablet RxNorm: 3462966 1 Tablet(s) PO daily 04/04/2018 05/03/2018 Inactive tramadol 50 mg tablet RxNorm: 608932 1 Tablet(s) PO Q4 PRN as needed for pain 03/13/2018 04/21/2018 In active lorazepam 1 mg tablet RxNorm: 926058 Tablet(s) TAKE TWO TABLETS BY MOUTH AT B EDTIME NEEDED FOR INSOMNIA AND ONE TABLET DAILY NEEDED ANXIETY 03/02/2018 04/30/2018 Inactive levothyroxine 125 mc g tablet RxNorm: 661454 1 Tablet(s) PO daily 02/06/2018 05/06/2018 Inactive levothyroxine 125 mc g tablet RxNorm: 220960 TAKE ONE TABLET BY MO UTH DAILY ON AN EMPTY STOMACH 02/06/2018 05/22/2018 Inactive tramadol 50 mg tablet RxNorm: 912487 1 Tablet(s) PO Q4 PRN as needed for pain 01/26/2018 03/06/2018 In active lorazepam 1 mg tablet RxNorm: 685057 Tablet(s) TAKE TWO TABLETS BY MOUTH AT B EDTIME NEEDED FOR INSOMNIA AND ONE TABLET DAILY NEEDED ANXIETY 01/23/2018 06/27/2018 Inactive Symbicort 80 mcg-4.5 mcg/actuation HFA aerosol inhaler RxNorm: 8965350 INH 01/05/2018 06/27/2018 In active tramadol 50 mg tablet RxNorm: 016547 1 Tablet(s) PO Q4 PRN as needed for pain 01/04/2018 01/25/2018 In active Advair Diskus 250 mc g-50 mcg/dose powder for inhalation RxNorm: 2825528 1 Puff(s) INH BID 11/29/2017 03/28/2018 Inactive hydrochlorothiazide 12.5 mg tablet RxNorm: 628872 1 Tablet(s) PO daily 11/29/2017 12/28/2017 In active tramadol 50 mg tablet RxNorm: 529025 1 Tablet(s) PO Q4 PRN as needed for pain 11/23/2017 01/01/2018 In active tramadol 50 mg tablet RxNorm: 641600 1 Tablet(s) PO Q4 PRN as needed for pain 10/06/2017 11/14/2017 In active lorazepam 1 mg tablet RxNorm: 381618 Tablet(s) TAKE TWO TABLETS BY MOUTH AT B EDTIME NEEDED FOR INSOMNIA AND ONE TABLET DAILY NEEDED ANXIETY 09/12/2017 06/27/2018 Inactive tramadol 50 mg tablet RxNorm: 245845 1 Tablet(s) PO Q4 PRN as needed for pain 09/12/2017 10/05/2017 In active tramadol 50 mg tablet RxNorm: 563504 1 Tablet(s) PO Q4 PRN as needed for pain 08/15/2017 09/11/2017 In active tramadol 50 mg tablet RxNorm: 215599 1 Tablet(s) PO Q4 PRN as needed for pain 06/29/2017 08/07/2017 In active ProAir HFA 90 mcg/ac tuation aerosol inhaler RxNorm: 1720996 INHALE 1 TO 2 PUFFS FOUR TIMES A DAY NEEDED FOR ASTHMA 06/14/2017 11/10/2017 Inactive prednisone 20 mg tablet RxNorm: 354678 1 Tablet(s) PO BID x 2 days, then 1 pill daily x 3 days, then 1/2 pill every other day x 3 doses. 06/14/2017 09/11/2017 Inactive Kenalog 40 mg/mL madhavi pension for injection RxNorm: 0918070 1 Milliliter(s) Inj 06/14/2017 06/14/2017 In active Zyrtec 10 mg tablet RxNorm: 2487201 1 Tablet(s) PO daily 06/14/2017 07/13/2017 Inactive tramadol 50 mg tablet RxNorm: 042084 1 Tablet(s) PO Q4 PRN as needed for pain 06/08/2017 06/27/2017 In active [SAVINGS FOR UNINSURED PATIENTS -- BIN:0 49940, PCN: ASPROD1, Group: [id number], ID# [id number], Process claim through [employer], for questions: . THIS IS NOT INSURANCE.] tramadol 50 mg tablet RxNorm: 032223 1 Tablet(s) PO Q4 PRN as needed for pain 05/16/2017 06/04/2017 In active [SAVINGS FOR UNINSURED PATIENTS -- BIN:0 68286, PCN: ASPROD1, Group: [id number], ID# [id number], Process claim through [employer], for questions: . THIS IS NOT INSURANCE.] lorazepam 1 mg tablet RxNorm: 802667 Tablet(s) TAKE TWO TABLETS BY MOUTH AT B EDTIME NEEDED FOR INSOMNIA AND ONE TABLET DAILY NEEDED ANXIETY 05/16/2017 08/13/2017 Inactive Lasix 20 mg tablet RxNorm: 038496 1 Tablet(s) PO daily 05/10/2017 05/09/2017 Inactive Lasix 20 mg tablet RxNorm: 1 Tablet(s) PO daily 05/10/2017 05/12/2017 Inactive potassium chloride E R 10 mEq tablet,extended release RxNorm: 552816 1 Tablet(s) PO daily while on the lasix 05/10/2017 05/09/2017 Inactive potassium chloride E R 10 mEq tablet,extended release RxNorm: 984762 1 Tablet(s) PO daily while on the lasix 05/10/2017 05/12/2017 Inactive prednisone 20 mg tablet RxNorm: 925424 1 Tablet(s) PO BID x 2 days, then 1 pill daily x 3 days, then 1/2 pill every other day x 3 doses. 04/19/2017 06/13/2017 Inactive Zithromax Z-Linus 250 mg tablet RxNorm: 734405 1 Tablet(s) PO UD 04/13/2017 06/28/2017 Inactive prednisone 20 mg tablet RxNorm: 727202 1 Tablet(s) PO BID 04/13/2017 04/17/2017 Inactive levothyroxine 125 mc g tablet RxNorm: 004916 1 Tablet(s) PO daily 04/11/2017 10/07/2017 Inactive tramadol 50 mg tablet RxNorm: 736355 1 Tablet(s) PO Q4 PRN as needed for pain 03/27/2017 04/15/2017 In active [SAVINGS FOR UNINSURED PATIENTS -- BIN:0 20020, PCN: ASPROD1, Group: [id number], ID# [id number], Process claim through [employer], for questions: . THIS IS NOT INSURANCE.] Kenalog 40 mg/mL madhavi pension for injection RxNorm: 4756721 1 Milliliter(s) Inj 03/27/2017 03/27/2017 In active tramadol 50 mg tablet RxNorm: 438335 1 Tablet(s) PO Q4H as needed for pain 03/09/2017 03/26/2017 In active [SAVINGS FOR UNINSURED PATIENTS -- BIN:0 96746, PCN: ASPROD1, Group: [id number], ID# [id number], Process claim through [employer], for questions: . THIS IS NOT INSURANCE.] lisinopril 20 mg-hyd rochlorothiazide 25 mg tablet RxNorm: 845866 TAKE ONE TABLET BY MOUTH DAILY 01/29/2017 11/21/2017 Inactive lorazepam 1 mg tablet RxNorm: 742853 Tablet(s) TAKE TWO TABLETS BY MOUTH AT B EDTIME NEEDED FOR INSOMNIA AND ONE TABLET DAILY NEEDED ANXIETY 01/05/2017 04/04/2017 Inactive tramadol 50 mg tablet RxNorm: 143014 1 Tablet(s) PO Q4H as needed for pain 12/07/2016 01/13/2017 In active [SAVINGS FOR UNINSURED PATIENTS -- BIN:0 84043, PCN: ASPROD1, Group: [id number], ID# [id number], Process claim through [employer], for questions: . THIS IS NOT INSURANCE.] Kenalog 40 mg/mL madhavi pension for injection RxNorm: 7773803 Milliliter(s) Inj 12/07/2016 12/07/2016 In active nystatin 100,000 uni t/mL oral suspension RxNorm: 259788 4 Milliliter(s) PO QI D 12/07/2016 12/11/2016 In active Francia-D 12 Hour 60 mg-120 mg tablet,extended release RxNorm: 276964 1 Tablet(s) PO BID 12/07/2016 01/11/2017 Inactive lorazepam 1 mg tablet RxNorm: 542645 Tablet(s) TAKE TWO TABLETS BY MOUTH AT B EDTIME AND ONE TABLET DAILY NEEDED 12/07/2016 01/04/2017 Inactive (Response to an electronic controlled substance refill request - RxReferenceNumber: [id number]) albuterol sulfate 2. 5 mg/3 mL (0.083 %) solution for nebulization RxNorm: 398199 3 Milliliter(s) INH TID 11/29/2016 11/28/2016 Inactive prednisone 10 mg tablet RxNorm: 998184 Tablet(s) PO UD 11/29/2016 12/05/2016 Inactive 6,5,4,3,2,1 doxycycline hyclate 100 mg tablet RxNorm: 724773 1 Tablet(s) PO BID 11/29/2016 12/04/2016 Inactive albuterol sulfate 2. 5 mg/3 mL (0.083 %) solution for nebulization RxNorm: 302402 3 Milliliter(s) INH TID 11/29/2016 12/03/2016 Inactive Kenalog 40 mg/mL madhavi pension for injection RxNorm: 6461605 Milliliter(s) Inj 11/28/2016 11/28/2016 In active tramadol 50 mg tablet RxNorm: 168640 1 Tablet(s) PO Q4H as needed for pain 11/15/2016 12/06/2016 In active [SAVINGS FOR UNINSURED PATIENTS -- BIN:0 14551, PCN: ASPROD1, Group: [id number], ID# [id number], Process claim through [employer], for questions: . THIS IS NOT INSURANCE.] prednisone 20 mg tablet RxNorm: 127478 2 Tablet(s) PO daily 11/15/2016 11/19/2016 Inactive Advair Diskus 100 mc g-50 mcg/dose powder for inhalation RxNorm: 3830205 1 Puff(s) INH BID 11/15/2016 06/11/2017 Inactive ProAir HFA 90 mcg/ac tuation aerosol inhaler RxNorm: 134234 INHALE 1 TO 2 PUFFS F OUR TIMES A DAY NEEDED FOR ASTHMA 11/15/2016 04/13/2017 Inactive Zithromax Z-Linus 250 mg tablet RxNorm: 773862 1 Tablet(s) PO UD 11/15/2016 11/27/2016 Inactive Zyrtec 10 mg tablet RxNorm: 0744927 1 Tablet(s) PO daily 10/17/2016 11/15/2016 Inactive Keflex 500 mg capsule RxNorm: 717861 1 Capsule(s) PO TID 10/17/2016 10/23/2016 Inactive prednisone 10 mg tablet RxNorm: 395778 Tablet(s) PO UD 10/17/2016 11/28/2016 Inactive 6,5,4,3,2,1 tramadol 50 mg tablet RxNorm: 968561 1 Tablet(s) PO Q4H as needed for pain 09/28/2016 11/06/2016 In active [SAVINGS FOR UNINSURED PATIENTS -- BIN:0 62600, PCN: ASPROD1, Group: [id number], ID# [id number], Process claim through [employer], for questions: . THIS IS NOT INSURANCE.] ProAir HFA 90 mcg/ac tuation aerosol inhaler RxNorm: 827194 INHALE 1 TO 2 PUFFS F OUR TIMES A DAY NEEDED FOR ASTHMA 09/15/2016 11/14/2016 Inactive doxycycline hyclate 100 mg tablet RxNorm: 312332 1 Tablet(s) PO BID 09/15/2016 09/24/2016 Inactive doxycycline hyclate 100 mg tablet RxNorm: 305654 1 Tablet(s) PO BID 07/29/2016 08/07/2016 Inactive tramadol 50 mg tablet RxNorm: 028632 1 Tablet(s) PO Q4H as needed for pain 07/29/2016 09/06/2016 In active [SAVINGS FOR UNINSURED PATIENTS -- BIN:0 95990, PCN: ASPROD1, Group: [id number], ID# [id number], Process claim through [employer], for questions: . THIS IS NOT INSURANCE.] lorazepam 1 mg tablet RxNorm: 350334 Tablet(s) TAKE TWO TABLETS BY MOUTH AT B EDTIME AND ONE TABLET DAILY NEEDED 07/29/2016 10/26/2016 Inactive (Response to an electronic controlled substance refill request - RxReferenceNumber: [id number]) levothyroxine 125 mc g tablet RxNorm: 943467 1 Tablet(s) PO daily 06/29/2016 06/29/2016 Inactive levothyroxine 137 mc g tablet RxNorm: 568689 1 Tablet(s) PO daily 06/29/2016 12/25/2016 Inactive ketoconazole 2 % [facility] RxNorm: 215143 1 Application TOP BID 06/29/2016 07/03/2016 Inactive tramadol 50 mg tablet RxNorm: 192688 1 Tablet(s) PO Q4H as needed for pain 06/16/2016 07/25/2016 In active [SAVINGS FOR UNINSURED PATIENTS -- BIN:0 94075, PCN: ASPROD1, Group: [id number], ID# [id number], Process claim through [employer], for questions: . THIS IS NOT INSURANCE.] Bactroban 2 % topica l ointment RxNorm: 409512 APPLY TO AFFECTED ARE A(S) TWO TIMES A DAY 06/16/2016 04/16/2017 Inactive fluconazole 150 mg t ablet RxNorm: 993067 1 Tablet(s) PO daily 06/01/2016 06/05/2016 Inactive gentamicin 0.1 % top ical ointment RxNorm: 575743 1 Application TOP QID 05/12/2016 05/25/2016 In active metronidazole 500 mg tablet RxNorm: 822399 1 Tablet(s) PO TID 05/11/2016 05/24/2016 Inactive gentamicin 0.1 % top ical ointment RxNorm: 758099 1 Application TOP QID 05/11/2016 05/11/2016 In active doxycycline hyclate 100 mg tablet RxNorm: 591831 1 Tablet(s) PO BID 05/11/2016 05/24/2016 Inactive lorazepam 1 mg tablet RxNorm: 013829 Tablet(s) TAKE TWO TABLETS BY MOUTH AT B EDTIME AND ONE TABLET DAILY NEEDED 05/02/2016 07/28/2016 Inactive (Response to an electronic controlled substance refill request - RxReferenceNumber: [id number]) Diflucan 150 mg tablet RxNorm: 452989 1 Tablet(s) PO daily x5 days then 1 x we ekly x 4 weeks. 05/02/2016 04/10/2017 Inactive Diflucan 150 mg tablet RxNorm: 092015 1 Tablet(s) PO every other day 04/19/2016 04/28/2016 In active Diflucan 150 mg tablet RxNorm: 530734 1 Tablet(s) PO every other day 04/19/2016 04/18/2016 In active Diflucan 150 mg tablet RxNorm: 970913 1 Tablet(s) PO daily 04/05/2016 04/11/2016 Inactive mupirocin 2 % topica l ointment RxNorm: 542321 1 Application TOP BID 04/05/2016 05/04/2016 Inactive tramadol 50 mg tablet RxNorm: 794214 1 Tablet(s) PO Q4H as needed for pain 04/05/2016 05/14/2016 In active [SAVINGS FOR UNINSURED PATIENTS -- BIN:0 50230, PCN: ASPROD1, Group: [id number], ID# [id number], Process claim through [employer], for questions: . THIS IS NOT INSURANCE.] prednisone 10 mg tablet RxNorm: 387745 Tablet(s) PO UD 04/01/2016 09/26/2016 Inactive 6,5,4,3,2,1 levothyroxine 137 mc g tablet RxNorm: 784183 1 Tablet(s) PO daily 03/21/2016 03/20/2016 Inactive levothyroxine 137 mc g tablet RxNorm: 677605 1 Tablet(s) PO daily 03/21/2016 06/28/2016 Inactive Advair Diskus 100 mc g-50 mcg/dose powder for inhalation RxNorm: 3268941 1 Puff(s) INH BID 01/26/2016 05/24/2016 Inactive tramadol 50 mg tablet RxNorm: 187973 1 Tablet(s) PO Q4H as needed for pain 01/26/2016 03/05/2016 In active [SAVINGS FOR UNINSURED PATIENTS -- BIN:0 79817, PCN: ASPROD1, Group: [id number], ID# [id number], Process claim through [employer], for questions: . THIS IS NOT INSURANCE.] Bactroban 2 % topica l ointment RxNorm: 705370 APPLY TO AFFECTED ARE A(S) TWO TIMES A DAY 12/22/2015 12/31/2015 Inactive Bactrim DS 800 mg-16 0 mg tablet RxNorm: 356227 TAKE ONE TABLET BY PR UT TWICE A DAY 12/22/2015 04/18/2016 In active Bactrim DS 800 mg-16 0 mg tablet RxNorm: 064587 1 Tablet(s) PO BID 12/21/2015 01/21/2019 Inactive lisinopril 20 mg-hyd rochlorothiazide 25 mg tablet RxNorm: 675470 1 Tablet(s) PO daily 12/21/2015 06/17/2016 Inactive [SAVINGS FOR UNINSURED PATIENTS -- BIN:0 12959, PCN: ASPROD1, Group: [id number], ID# [id number], Process claim through [employer], for questions: . THIS IS NOT INSURANCE.] tramadol 50 mg tablet RxNorm: 904558 1 Tablet(s) PO Q4H as needed for pain 12/03/2015 01/11/2016 In active [SAVINGS FOR UNINSURED PATIENTS -- BIN:0 06246, PCN: ASPROD1, Group: [id number], ID# [id number], Process claim through [employer], for questions: . THIS IS NOT INSURANCE.] lorazepam 1 mg tablet RxNorm: 936109 Tablet(s) TAKE TWO TABLETS BY MOUTH AT B EDTIME AND ONE TABLET DAILY NEEDED 11/26/2015 06/27/2018 Inactive (Response to an electronic controlled substance refill request - RxReferenceNumber: [id number]) Bactrim DS 800 mg-16 0 mg tablet RxNorm: 899383 1 Tablet(s) PO BID 11/25/2015 12/04/2015 Inactive levothyroxine 150 mc g tablet RxNorm: 785763 1 Tablet(s) PO daily 11/25/2015 03/20/2016 Inactive Bactroban 2 % topica l ointment RxNorm: 445581 1 Application TOP BID 10/12/2015 10/21/2015 Inactive Bactrim DS 800 mg-16 0 mg tablet RxNorm: 919750 1 Tablet(s) PO BID 09/07/2015 09/06/2015 Inactive Bactrim DS 800 mg-16 0 mg tablet RxNorm: 964032 1 Tablet(s) PO BID 09/07/2015 09/16/2015 Inactive lorazepam 1 mg tablet RxNorm: 107779 Tablet(s) TAKE TWO TABLETS BY MOUTH AT B EDTIME AND ONE TABLET DAILY NEEDED 08/28/2015 11/24/2015 Inactive (Response to an electronic controlled substance refill request - RxReferenceNumber: [id number]) levothyroxine 175 mc g tablet RxNorm: 090668 1 Tablet(s) PO daily 08/24/2015 11/24/2015 Inactive tramadol 50 mg tablet RxNorm: 286795 1 Tablet(s) PO Q4H as needed for pain 08/24/2015 09/11/2017 In active [SAVINGS FOR UNINSURED PATIENTS -- BIN:0 06803, PCN: ASPROD1, Group: [id number], ID# [id number], Process claim through [employer], for questions: . THIS IS NOT INSURANCE.] lisinopril 20 mg-hyd rochlorothiazide 25 mg tablet RxNorm: 044236 1 Tablet(s) PO daily TAKE 1 TABLET BY MOUTH DAILY 08/24/2015 06/27/2018 Inactive ProAir HFA 90 mcg/ac tuation aerosol inhaler RxNorm: 429265 1-2 Puff(s) INH PRN I NHALE ONE TO TWO PUFFS BY MOUTH FOUR TIMES A DAY NEEDED FOR ASTHMA 08/24/2015 12/01/2015 In active ProAir HFA 90 mcg/ac tuation aerosol inhaler RxNorm: 3948541 INHALE ONE TO TWO PU FFS BY MOUTH FOUR TIMES A DAY NEEDED FOR ASTHMA 08/17/2015 08/23/2015 Inactive Advair Diskus 250 mc g-50 mcg/dose powder for inhalation RxNorm: 1981826 1 Puff(s) INH BID 07/20/2015 07/19/2015 Inactive Advair Diskus 250 mc g-50 mcg/dose powder for inhalation RxNorm: 3451142 1 Puff(s) INH BID 07/20/2015 11/16/2015 Inactive tramadol 50 mg tablet RxNorm: 014274 1 Tablet(s) PO Q4H as needed for pain 07/10/2015 08/17/2015 In active [SAVINGS FOR UNINSURED PATIENTS -- BIN:0 95864, PCN: ASPROD1, Group: [id number], ID# [id number], Process claim through [employer], for questions: . THIS IS NOT INSURANCE.] Zithromax Z-Linus 250 mg tablet RxNorm: 086233 1 Tablet(s) PO UD 07/10/2015 01/18/2016 Inactive Keflex 500 mg capsule RxNorm: 531129 1 Capsule(s) PO TID 06/01/2015 06/07/2015 Inactive mupirocin 2 % topica l ointment RxNorm: 178869 1 Application TOP TID 06/01/2015 06/10/2015 Inactive lisinopril 20 mg-hyd rochlorothiazide 25 mg tablet RxNorm: 550083 TAKE 1 TABLET BY MOUT H DAILY 05/30/2015 08/23/2015 Inactive lisinopril 20 mg-hyd rochlorothiazide 25 mg tablet RxNorm: 200027 1 Tablet(s) PO daily 05/29/2015 11/24/2015 Inactive [SAVINGS FOR UNINSURED PATIENTS -- BIN:0 85817, PCN: ASPROD1, Group: [id number], ID# [id number], Process claim through [employer], for questions: . THIS IS NOT INSURANCE.] lorazepam 1 mg tablet RxNorm: 056066 Tablet(s) TAKE TWO TABLETS BY MOUTH AT B EDTIME AND ONE TABLET DAILY NEEDED 04/17/2015 07/13/2015 Inactive (Response to an electronic controlled substance refill request - RxReferenceNumber: [id number]) levothyroxine 200 mc g tablet RxNorm: 502466 1 Tablet(s) PO daily 03/12/2015 08/23/2015 Inactive [SAVINGS FOR UNINSURED PATIENTS -- BIN:0 10057, PCN: ASPROD1, Group: [id number], ID# [id number], Process claim through [employer], for questions: . THIS IS NOT INSURANCE.] lisinopril 20 mg-hyd rochlorothiazide 25 mg tablet RxNorm: 688945 1 Tablet(s) PO daily 03/11/2015 05/28/2015 Inactive [SAVINGS FOR UNINSURED PATIENTS -- BIN:0 02206, PCN: ASPROD1, Group: [id number], ID# [id number], Process claim through [employer], for questions: . THIS IS NOT INSURANCE.] levothyroxine 175 mc g tablet RxNorm: 101279 1 Tablet(s) PO daily 03/09/2015 03/11/2015 Inactive recheck blood in 3 months- THIS IS CORRE CT DOSAGE levothyroxine 175 mc g tablet RxNorm: 671780 1 Tablet(s) PO daily 03/09/2015 03/08/2015 Inactive recheck blood in 3 months levothyroxine 150 mc g tablet RxNorm: 839035 1 Tablet(s) PO daily 03/09/2015 03/08/2015 Inactive recheck blood in 3 months lorazepam 1 mg tablet RxNorm: 564607 TAKE TWO TABLETS BY MOUTH AT BEDTIME AND ONE TABLET DAILY NEEDED 12/25/2014 01/22/2015 Inactive (Response to an electronic controlled substance refill request - RxReferenceNumber: [id number]) lorazepam 1 mg tablet RxNorm: 163801 Tablet(s) TAKE TWO TABLETS BY MOUTH EVER Y NIGHT AT BEDTIME AND TAKE ONE TABLET BY MOUTH DAILY NEEDED 12/23/2014 12/25/2014 Inactive (Response to an electronic controlled [place] ref[place] - RxReferenceNumber: [id number]) levothyroxine 150 mc g tablet RxNorm: 792735 1 Tablet(s) PO daily 12/12/2014 03/08/2015 Inactive recheck blood in 3 months Diflucan 150 mg tablet RxNorm: 045868 1 Tablet(s) PO every other day (start af ter finished with Cipro) 11/17/2014 08/23/2015 Inactive tramadol 50 mg tablet RxNorm: 817357 1 Tablet(s) PO Q4H as needed for pain 11/10/2014 12/17/2014 In active [SAVINGS FOR UNINSURED PATIENTS -- BIN:0 64427, PCN: ASPROD1, Group: [id number], ID# [id number], Process claim through [employer], for questions: . THIS IS NOT INSURANCE.] Cipro 500 mg tablet RxNorm: 055117 1 Tablet(s) PO BID 10/23/2014 10/29/2014 Inactive Flagyl 500 mg tablet RxNorm: 134679 1 Tablet(s) PO TID 10/23/2014 10/29/2014 Inactive Cipro 500 mg tablet RxNorm: 533309 1 Tablet(s) PO BID 10/23/2014 10/22/2014 Inactive Flagyl 500 mg tablet RxNorm: 313465 1 Tablet(s) PO TID 10/23/2014 10/22/2014 Inactive Diflucan 150 mg tablet RxNorm: 110484 1 Tablet(s) PO every other day (start af ter finished with Cipro) 10/23/2014 11/16/2014 Inactive lorazepam 1 mg tablet RxNorm: 596647 TAKE TWO TABLETS BY MOUTH EVERY NIGHT AT BEDTIME AND TAKE ONE TABLET BY MOUTH DAILY NEEDED 10/21/2014 10/21/2014 Inactive (Response to an electronic controlled north bstance refill request - RxReferenceNumber: [id number]) lorazepam 1 mg tablet RxNorm: 254451 TAKE TWO TABLETS BY MOUTH EVERY NIGHT AT BEDTIME AND TAKE ONE TABLET BY MOUTH DAILY NEEDED 10/21/2014 11/18/2014 Inactive (Response to an electronic controlled north bstance refill request - RxReferenceNumber: [id number]) lorazepam 1 mg tablet RxNorm: 900279 Tablet(s) TAKE TWO TABLETS BY MOUTH AT B EDTIME, ALSO TAKE ONE TABLET BY MOUTH DAILY NEEDED 10/13/2014 10/21/2014 Inactive (Res ponse to an electronic controlled substance refill request - RxReferenceNumber: [id number]) ProAir HFA 90 mcg/ac tuation aerosol inhaler RxNorm: 7610740 1-2 inhale INH QID a s needed ASTHMA 10/13/2014 12/26/2014 Inactive ProAir HFA 90 mcg/ac tuation aerosol inhaler RxNorm: 3063029 1-2 inhale INH QID a s needed ASTHMA 09/18/2014 10/12/2014 Inactive meloxicam 7.5 mg tablet RxNorm: 341759 1 Tablet(s) PO daily 09/18/2014 03/10/2015 Inactive [SAVINGS FOR UNINSURED PATIENTS -- BIN:0 43888, PCN: ASPROD1, Group: [id number], ID# [id number], Process claim through [employer], for questions: . THIS IS NOT INSURANCE.] sulfamethoxazole 800 mg-trimethoprim 160 mg tablet RxNorm: 249798 1 Tablet(s) PO BID 09/18/2014 10/07/2014 Inactive levothyroxine 175 mc g tablet RxNorm: 980374 1 Tablet(s) PO daily 09/17/2014 12/11/2014 Inactive levothyroxine 175 mc g tablet RxNorm: 711247 1 Tablet(s) PO daily 09/17/2014 09/16/2014 Inactive lorazepam 1 mg tablet RxNorm: 771571 Tablet(s) TAKE TWO TABLETS BY MOUTH AT B EDTIME, ALSO TAKE ONE TABLET BY MOUTH DAILY NEEDED 09/12/2014 10/11/2014 Inactive (Res ponse to an electronic controlled substance refill request - RxReferenceNumber: [id number]) lorazepam 1 mg tablet RxNorm: 894777 TAKE TWO TABLETS BY MOUTH AT BEDTIME, AL SO TAKE ONE TABLET BY MOUTH DAILY NEEDED 09/08/2014 09/11/2014 Inactive (Res ponse to an electronic controlled substance refill request - RxReferenceNumber: [id number]) meloxicam 7.5 mg tablet RxNorm: 232995 1 Tablet(s) PO daily 09/01/2014 09/17/2014 Inactive [SAVINGS FOR UNINSURED PATIENTS -- BIN:0 36862, PCN: ASPROD1, Group: [id number], ID# [id number], Process claim through [employer], for questions: . THIS IS NOT INSURANCE.] lisinopril 20 mg-hyd rochlorothiazide 25 mg tablet RxNorm: 622470 1 Tablet(s) PO daily 09/01/2014 12/29/2014 Inactive [SAVINGS FOR UNINSURED PATIENTS -- BIN:0 45171, PCN: ASPROD1, Group: [id number], ID# [id number], Process claim through [employer], for questions: . THIS IS NOT INSURANCE.] tramadol 50 mg tablet RxNorm: 245909 1 Tablet(s) PO Q4H as needed for pain 08/20/2014 11/07/2014 In active [SAVINGS FOR UNINSURED PATIENTS -- BIN:0 92424, PCN: ASPROD1, Group: [id number], ID# [id number], Process claim through [employer], for questions: . THIS IS NOT INSURANCE.] meloxicam 7.5 mg tablet RxNorm: 207317 1 Tablet(s) PO daily 08/14/2014 08/31/2014 Inactive [SAVINGS FOR UNINSURED PATIENTS -- BIN:0 38056, PCN: ASPROD1, Group: [id number], ID# [id number], Process claim through [employer], for questions: . THIS IS NOT INSURANCE.] lorazepam 1 mg tablet RxNorm: 573204 2 Tablet(s) PO QHS and 1 tab qd PRN 08/01/2014 09/08/2014 In active [SAVINGS FOR UNINSURED PATIENTS -- BIN:0 32569, PCN: ASPROD1, Group: [id number], ID# [id number], Process claim through [employer], for questions: . THIS IS NOT INSURANCE.] levothyroxine 200 mc g tablet RxNorm: 282532 1 Tablet(s) PO daily 07/31/2014 09/16/2014 Inactive [SAVINGS FOR UNINSURED PATIENTS -- BIN:0 76936, PCN: ASPROD1, Group: [id number], ID# [id number], Process claim through [employer], for questions: . THIS IS NOT INSURANCE.] lorazepam 1 mg tablet RxNorm: 330905 2 Tablet(s) PO QHS and 1 tab qd PRN No Start Date 07/31/2014 Inactive Phenergan VC-Codeine oral RxNorm: 839000 oral No S tart Date 11/26/2017 Inactive meloxicam 7.5 mg tablet RxNorm: 672594 1 Tablet(s) PO daily No Start Date 08/13/2014 Inactive lisinopril 20 mg-hyd rochlorothiazide 25 mg tablet RxNorm: 230482 1 Tablet(s) PO daily No Start Date 08/31/2014 Inactive levothyroxine 200 mc g tablet RxNorm: 555674 1 Tablet(s) PO daily No Start Date 07/30/2014 Inactive Diflucan 150 mg tablet RxNorm: 633907 1 Tablet(s) PO every other day No Start Date 10/22/2014 Inactive Zithromax Z-Linus 250 mg tablet RxNorm: 709003 1 Tablet(s) PO UD No Start Date 07/09/2015 Inactive tramadol 50 mg tablet RxNorm: 174112 1 Tablet(s) PO Q6 as needed No Start Date 08/19/2014 Inactive Medication Administered Medication Codes Instruc tions Start Date Status Kenalog 40 mg/mL suspension for injection RxNorm: 2310694 1Milliliter 06/14/2017 N o longer Active Kenalog 40 mg/mL suspension for injection RxNorm: 1432332 1Milliliter 03/27/2017 N o longer Active Kenalog 40 mg/mL suspension for injection RxNorm: 5152604 Milliliter 12/07/2016 No longer Active Kenalog 40 mg/mL suspension for injection RxNorm: 0323287 Milliliter 11/28/2016 No longer Active Immunizations Vaccine Codes Date Status Pneumococcal CVX: 33 09/1986 completed Tetanus, Diptheria, Pertussis CVX: 03/11/1987 completed Tetanus/Diptheria CVX: 03/11/1987 completed Influenza CVX: 141 03/11 completed Assessments Condition Codes Effectiv e Dates Pain in left knee ICD-10: M25.562 ICD-9: [...] ICD-1 0: E03.8 ICD-9: 244.8 10/23/2018 Other allergic rhinitis ICD-10: J30. 89 ICD-9: 477.8 06/28/2018 Other mucopurulent conjunctivitis, left eye ICD-10: H10.022 [...] specified organisms ICD-10: J20.8 ICD-9: 466.0 11/15/2016 Other acute sinusitis ICD-10: J01.80 ICD-9: 461.8 10/17/2016 Tinea barbae and tinea capitis ICD-1 0: [...] Visit Reason For Visit Effective Dates Notes rash 04/29/2019 mole check 03/21/2019 hypertension 01/22/2019 [...] 29.7 pg 03/21/2019 Cbc With Differential Ord2 Morrison% 10.5 % 03/21/2019 Cbc With Differential Ord2 [...] 1.51 K/ul 03/21/2019 Cbc With Differential Ord2 Morrison ABS# 0.6 K/ul 03/21/2019 Cbc With Differential Ord2 Eos ABS# 0.2 K/ul 03/21/2019 Cbc With Differential Ord2 Baso ABS# 0.0 K/ul 03/21/2019 Free T4 Ykw492 FREE T4 1.52 ng/dL 03/21/2019 Comp Metabolic Qzu992 NA 141 mEq/L 03/21/2019 Comp Metabolic Wqr224 K 3.9 mEq/L 03/21/2019 Comp Metabolic Vcq222 CL 107 mEq/L 03/21/2019 Comp Metabolic Slg031 CO2 26.0 mEq/L 03/21/2019 Comp Metabolic Nzo207 AN ION GAP 12 03/21/2019 Comp Metabolic Faw812 GL UCOSE 111 mg/dL 03/21/2019 Comp Metabolic Qwu591 Cr eat 0.8 mg/dL 03/21/2019 Comp Metabolic Fqe301 eG FR 77 ml/min/1.73m2 03/21 Comp Metabolic Oyr227 BUN 14 mg/dL 03/21/2019 Comp Metabolic Pqj783 B/ C Ratio 18.2 Ratio 03/21/2019 Comp Metabolic Mxk833 CA LCIUM 9.2 mg/dL 03/21/2019 Comp Metabolic Pto447 AL K PHOS 68 U/L 03/21/2019 Comp Metabolic Def563 T(SGOT) 11 U/L 03/21/2019 Comp Metabolic Kac324 AL T(SGPT) 8 U/L 03/21/2019 Comp Metabolic Ssb354 BI LI T 0.5 mg/dL 03/21/2019 Comp Metabolic Gzt277 AL BUMIN 4.1 g/dL 03/21/2019 Comp Metabolic Osv325 TP RO 6.3 g/dL 03/21/2019 Comp Metabolic Lbd130 GL OB 2.2 g/dL 03/21/2019 Comp Metabolic Fqi904 A/ G Ratio 1.9 Ratio 03/21/2019 Comp Metabolic Dva226 Os mo 282 mOsmo 03/21/2019 Tsh Ord6 TSH (3rd IS) 1.49 uIU/mL 01/21/2019 Free T4 Pfm576 FREE T4 1.15 ng/dL 01/21/2019 Lipid Ord30 CHOL 231 mg/dL 10/24/2018 Lipid Ord30 HDL 56.0 mg/dl 10/24/2018 Lipid Ord30 TRIG 71 mg/dL 10/24/2018 Lipid Ord30 LDL 161 mg/dL 10/24/2018 Lipid Ord30 C/HDL 4.1 Ratio 10/24/2018 Comp Metabolic Bcy012 NA 141 mEq/L 10/24/2018 Comp Metabolic Tew695 K 3.7 mEq/L 10/24/2018 Comp Metabolic Pku358 CL 103 mEq/L 10/24/2018 Comp Metabolic Lmz516 CO2 30.0 mEq/L 10/24/2018 Comp Metabolic Dgu343 AN ION GAP 12 10/24/2018 Comp Metabolic Dxp820 GL UCOSE 98 mg/dL 10/24/2018 Comp Metabolic Kkk510 Cr eat 0.8 mg/dL 10/24/2018 Comp Metabolic Ypn726 eG FR 71 ml/min/1.73m2 10/24 Comp Metabolic Mvs364 BUN 12 mg/dL 10/24/2018 Comp Metabolic Irq580 B/ C Ratio 14.5 Ratio 10/24/2018 Comp Metabolic Fvt447 CA LCIUM 9.2 mg/dL 10/24/2018 Comp Metabolic Qvf806 AL K PHOS 76 U/L 10/24/2018 Comp Metabolic Meo276 T(SGOT) 12 U/L 10/24/2018 Comp Metabolic Onz358 AL T(SGPT) 9 U/L 10/24/2018 Comp Metabolic Ikp272 BI LI T 0.5 mg/dL 10/24/2018 Comp Metabolic Mip541 AL BUMIN 4.3 g/dL 10/24/2018 Comp Metabolic Qfz395 TP RO 6.5 g/dL 10/24/2018 Comp Metabolic Vra281 GL OB 2.2 g/dL 10/24/2018 Comp Metabolic Etj350 A/ G Ratio 2.0 Ratio 10/24/2018 Comp Metabolic Yue839 Os mo 281 mOsmo 10/24/2018 Free T4 Hwk600 FREE T4 0.76 ng/dL 10/24/2018 Cbc With [...] 30.5 pg 10/24/2018 Cbc With Differential Ord2 Morrison% 8.4 % 10/24/2018 Cbc With Differential Ord2 [...] 1.71 K/ul 10/24/2018 Cbc With Differential Ord2 Morrison ABS# 0.4 K/ul 10/24/2018 Cbc With Differential [...] 30.0 pg 04/04/2018 Cbc With Differential Ord2 Morrison% 10.9 % 04/04/2018 Cbc With Differential Ord2 [...] 1.42 K/ul 04/04/2018 Cbc With Differential Ord2 Morrison ABS# 0.6 K/ul 04/04/2018 Cbc With Differential Ord2 Eos ABS# 0.1 K/ul 04/04/2018 Cbc With Differential Ord2 Baso ABS# 0.0 K/ul 04/04/2018 Free T4 Ojy773 FREE T4 1.25 ng/dL 04/04/2018 Tsh Ord6 [...] 30.2 pg 11/28/2017 Cbc With Differential Ord2 Morrison% 10.1 % 11/28/2017 Cbc With Differential Ord2 [...] 1.33 K/ul 11/28/2017 Cbc With Differential Ord2 Morrison ABS# 0.5 K/ul 11/28/2017 Cbc With Differential Ord2 Eos ABS# 0.1 K/ul 11/28/2017 Cbc With Differential Ord2 Baso ABS# 0.0 K/ul 11/28/2017 Free T4 Miu874 FREE T4 1.43 ng/dL 11/28/2017 Lipid Ord30 CHOL 186 mg/dL 11/28/2017 Lipid Ord30 HDL 54.0 mg/dl 11/28/2017 Lipid Ord30 TRIG 59 mg/dL 11/28/2017 Lipid Ord30 LDL 120 mg/dL 11/28/2017 Lipid Ord30 C/HDL 3.4 Ratio 11/28/2017 Comp Metabolic Vjc961 NA 141 mEq/L 11/28/2017 Comp Metabolic Zzp996 K 4.0 mEq/L 11/28/2017 Comp Metabolic Bls072 CL 105 mEq/L 11/28/2017 Comp Metabolic Pdp433 CO2 29.0 mEq/L 11/28/2017 Comp Metabolic Vxr730 AN ION GAP 11 11/28/2017 Comp Metabolic Ews243 GL UCOSE 91 mg/dL 11/28/2017 Comp Metabolic Kzt833 Cr eat 0.8 mg/dL 11/28/2017 Comp Metabolic Tvp533 eG FR 74 ml/min/1.73m2 11/28 Comp Metabolic Xfj878 BUN 15 mg/dL 11/28/2017 Comp Metabolic Aoc914 B/ C Ratio 18.8 Ratio 11/28/2017 Comp Metabolic Dbq158 CA LCIUM 8.6 mg/dL 11/28/2017 Comp Metabolic Eji540 AL K PHOS 76 U/L 11/28/2017 Comp Metabolic Rnx217 T(SGOT) 10 U/L 11/28/2017 Comp Metabolic Hgw225 AL T(SGPT) 8 U/L 11/28/2017 Comp Metabolic Ijr376 BI LI T 0.5 mg/dL 11/28/2017 Comp Metabolic Skf375 AL BUMIN 4.0 g/dL 11/28/2017 Comp Metabolic Ajp509 TP RO 6.1 g/dL 11/28/2017 Comp Metabolic Ffl563 GL OB 2.1 g/dL 11/28/2017 Comp Metabolic Zex591 A/ G Ratio 1.9 Ratio 11/28/2017 Comp Metabolic Ech416 Os mo 282 mOsmo 11/28/2017 Tsh Ord6 TSH (3rd IS) 3.31 uIU/mL 11/28/2017 Tsh Ord6 hTSH II 1.45 uIU/mL 03/27/2017 Free T4 Ins847 FREE T4 1.23 ng/dL 03/27/2017 Comp Metabolic Nlt838 NA 140 mEq/L 09/28/2016 Comp Metabolic Qbh585 K 3.9 mEq/L 09/28/2016 Comp Metabolic Hmq197 CL 104 mEq/L 09/28/2016 Comp Metabolic Ytx932 CO2 28.0 mEq/L 09/28/2016 Comp Metabolic Liz138 AN ION GAP 12 09/28/2016 Comp Metabolic Lmt086 GL UCOSE 97 mg/dL 09/28/2016 Comp Metabolic Zxy018 Cr eat 0.8 mg/dL 09/28/2016 Comp Metabolic Aqg377 eG FR 79 ml/min/1.73m2 09/28 Comp Metabolic Afx227 BUN 13 mg/dL 09/28/2016 Comp Metabolic Lir115 B/ C Ratio 17.1 Ratio 09/28/2016 Comp Metabolic Kbw079 CA LCIUM 8.9 mg/dL 09/28/2016 Comp Metabolic Ord112 AL K PHOS 100 U/L 09/28/2016 Comp Metabolic Ujn058 T(SGOT) 12 U/L 09/28/2016 Comp Metabolic Udi251 AL T(SGPT) 9 U/L 09/28/2016 Comp Metabolic Ycg232 BI LI T 0.4 mg/dL 09/28/2016 Comp Metabolic Cci586 AL BUMIN 4.1 g/dL 09/28/2016 Comp Metabolic Iji830 TP RO 6.6 g/dL 09/28/2016 Comp Metabolic Lnk763 GL OB 2.5 g/dL 09/28/2016 Comp Metabolic Vgx697 A/ G Ratio 1.6 Ratio 09/28/2016 Comp Metabolic Ijq363 Os mo 279 mOsmo 09/28/2016 Lipid Ord30 [...] 28.8 pg 09/28/2016 Cbc With Differential Ord2 Morrison% 7.2 % 09/28/2016 Cbc With Differential Ord2 [...] 1.41 K/ul 09/28/2016 Cbc With Differential Ord2 Morrison ABS# 0.5 K/ul 09/28/2016 Cbc With Differential Ord2 Eos ABS# 0.2 K/ul 09/28/2016 Cbc With Differential Ord2 Baso ABS# 0.0 K/ul 09/28/2016 Free T4 Nvq327 FREE T4 1.43 ng/dL 09/28/2016 Tsh Ord6 hTSH II 0.52 uIU/mL 09/28/2016 Tsh Ord6 hTSH II 0.47 uIU/mL 06/16/2016 Comp Metabolic Pbs448 NA 139 mEq/L 06/16/2016 Comp Metabolic Pah371 K 4.3 mEq/L 06/16/2016 Comp Metabolic Skh552 CL 105 mEq/L 06/16/2016 Comp Metabolic Uos057 CO2 30.0 mEq/L 06/16/2016 Comp Metabolic Uaj253 AN ION GAP 8 06/16/2016 Comp Metabolic Sdu832 GL UCOSE 90 mg/dL 06/16/2016 Comp Metabolic Jki490 Cr eat 0.7 mg/dL 06/16/2016 Comp Metabolic Tug567 eG FR 91 ml/min/1.73m2 06/16 Comp Metabolic Hxa022 BUN 15 mg/dL 06/16/2016 Comp Metabolic Pqi857 B/ C Ratio 22.4 Ratio 06/16/2016 Comp Metabolic Wrv466 CA LCIUM 8.8 mg/dL 06/16/2016 Comp Metabolic Yxu388 AL K PHOS 79 U/L 06/16/2016 Comp Metabolic Jdq573 T(SGOT) 13 U/L 06/16/2016 Comp Metabolic Tfz319 AL T(SGPT) 11 U/L 06/16/2016 Comp Metabolic Xto439 BI LI T 0.5 mg/dL 06/16/2016 Comp Metabolic Ghx344 AL BUMIN 3.9 g/dL 06/16/2016 Comp Metabolic Kfp179 TP RO 6.1 g/dL 06/16/2016 Comp Metabolic Msi300 GL OB 2.2 g/dL 06/16/2016 Comp Metabolic Szy465 A/ G Ratio 1.8 Ratio 06/16/2016 Comp Metabolic Bac026 Os mo 278 mOsmo 06/16/2016 Lipid Ord30 [...] 28.9 pg 06/16/2016 Cbc With Differential Ord2 Morrison% 8.1 % 06/16/2016 Cbc With Differential Ord2 [...] 1.70 K/ul 06/16/2016 Cbc With Differential Ord2 Morrison ABS# 0.4 K/ul 06/16/2016 Cbc With Differential Ord2 Eos ABS# 0.2 K/ul 06/16/2016 Cbc With Differential Ord2 Baso ABS# 0.0 K/ul 06/16/2016 Free T4 Xlw205 FREE T4 1.42 ng/dL 06/16/2016 Free T4 Itb547 FREE T4 1.34 ng/dL 03/04/2016 Tsh Ord6 hTSH II 0.56 uIU/mL 03/04/2016 Tsh Ord6 hTSH II 0.98 uIU/mL 01/27/2016 Free T4 Oeh765 FREE T4 1.19 ng/dL 01/27/2016 Free T4 Tmt619 FREE T4 1.69 ng/dL 11/23/2015 Tsh Ord6 hTSH II 0.08 uIU/mL 11/23/2015 Lipid Ord30 CHOL 185 mg/dL 08/21/2015 Lipid Ord30 HDL 50.0 mg/dl 08/21/2015 Lipid Ord30 TRIG 88 mg/dL 08/21/2015 Lipid Ord30 LDL 117 mg/dL 08/21/2015 Lipid Ord30 C/HDL 3.7 Ratio 08/21/2015 Comp Metabolic Sgb175 NA 139 mEq/L 08/21/2015 Comp Metabolic Xnr745 K 4.3 mEq/L 08/21/2015 Comp Metabolic Hiz639 CL 102 mEq/L 08/21/2015 Comp Metabolic Hng208 CO2 27.0 mEq/L 08/21/2015 Comp Metabolic Xvv995 AN ION GAP 14 08/21/2015 Comp Metabolic Eqf223 GL UCOSE 89 mg/dL 08/21/2015 Comp Metabolic Bxo891 Cr eat 0.7 mg/dL 08/21/2015 Comp Metabolic Dsh422 eG FR 85 ml/min/1.73m2 08/21 Comp Metabolic Czr587 BUN 14 mg/dL 08/21/2015 Comp Metabolic Zip284 B/ C Ratio 19.7 Ratio 08/21/2015 Comp Metabolic Mnl662 CA LCIUM 9.5 mg/dL 08/21/2015 Comp Metabolic Gzu827 AL K PHOS 123 U/L 08/21/2015 Comp Metabolic Ekf424 T(SGOT) 13 U/L 08/21/2015 Comp Metabolic Evm819 AL T(SGPT) 10 U/L 08/21/2015 Comp Metabolic Ghb508 BI LI T 0.4 mg/dL 08/21/2015 Comp Metabolic Rag660 AL BUMIN 4.1 g/dL 08/21/2015 Comp Metabolic Ghi332 TP RO 6.8 g/dL 08/21/2015 Comp Metabolic Spm094 GL OB 2.7 g/dL 08/21/2015 Comp Metabolic Rid150 A/ G Ratio 1.5 Ratio 08/21/2015 Comp Metabolic Xby364 Os mo 277 mOsmo 08/21/2015 Free T4 Xks959 FREE T4 1.78 ng/dL 08/21/2015 Tsh Ord6 [...] Ord2 RDW 13.9 % 08/21/2015 Quick Strep Rip4461 Quic k Strep Negative 07/08/2015 Tsh Ord6 hTSH II 0.04 uIU/mL 05/20/2015 Free T4 Zoh413 FREE T4 1.50 ng/dL 05/20/2015 Review of Systems System Result Effective Dates Constitutional No recent illness 04/29/2019 Constitutional No [...] Endocrine No cold sensitivity 05/11/2016 Psychiatric anxiety 08/3 09/2015 Dermatologic sores 05/11 Dermatologic sores 04/05 Respiratory [...] or coarse skin 03/11/2015 Endocrine hair loss 07/0 09/2014 Endocrine No weakness Endocrine flushing 03/11 [...] No alteration of consciousness 12/11/2014 Psychiatric anxiety 040 10/2014 Constitutional No recent illness 09/18/2014 Constitutional [...] Result Effective Dates Notes Full Exam - Dermatology Constitutional general appearance [...] lips 09/12/2017 None Full Exam - General 1994 [...] sounds 09/12/2017 None Full Exam - General 1995 Musculoskeletal head and neck Overall: head atraumatic 09/12/2017 None Full Exam - General 1994 Musculoskeletal gait and station Overall: normal station 09/12/2017 None Full Exam - General 1994 Musculoskeletal gait and station Overall: normal gait 09/12/2017 None Full Exam - General 1995 Cardiovascular extremities Edema present: pitting 09/12/2017 None [...] Procedure Codes Date DESTRUCT PREMALG LESION CPT-4: 37553 01/19/2018 URINALYSIS NONAUTO W /O SCOPE CPT-4: 86137 09/12/2017 TRIAMCINOLONE ACET I [place] NOS CPT-4: J3301 06/14/2017 THER/PROPH/DIAG INJ SC/IM CPT-4: 38560 06/14/2017 PRESCRIP TRANSMIT A ERX SY CPT-4: G8553 06/14/2017 TRIAMCINOLONE ACET I [place] NOS CPT-4: J3301 03/27/2017 THER/PROPH/DIAG INJ SC/IM CPT-4: 97902 12/07/2016 TRIAMCINOLONE ACET I [place] NOS CPT-4: J3301 12/07/2016 THER/PROPH/DIAG INJ SC/IM CPT-4: 16004 11/28/2016 TRIAMCINOLONE ACET I [place] NOS CPT-4: J3301 11/28/2016 Vital Signs Date Vital 04/29/2019 Blood Pressure 1: 144/60 Code: 8480-6 BMI: 36.0 Code: 08697-1 Heart Rate 1: 73 bpm Height: 5'6" SpO2: 98% Weight: 223 lbs 03/21/2019 Blood Pressure 1: 132/64 Code: 8480-6 BMI: 36.2 Code: 90623-0 Heart Rate 1: 76 bpm Height: 5'6" SpO2: 94% Weight: 224 lbs 01/22/2019 Blood Pressure 1: 132/66 Code: 8480-6 BMI: 37.1 Code: 58885-2 Heart Rate 1: 73 bpm Height: 5'6" SpO2: 96% Weight: 230 lbs 11/21/2018 Blood Pressure 1: 120/64 Code: 8480-6 Heart Rate 1: 64 bpm 10/30/2018 Blood Pressure 1: 144/70 Code: 8480-6 BMI: 37.0 Code: 40590-4 Heart Rate 1: 76 bpm Height: 5'6" SpO2: 96% Weight: 229 lbs 06/28/2018 Blood Pressure 1: 110/66 Code: 8480-6 BMI: 37.1 Code: 07815-3 Heart Rate 1: 73 bpm Height: 5'6" SpO2: 98% Weight: 230 lbs 04/04/2018 Blood Pressure 1: 128/76 Code: 8480-6 BMI: 37.9 Code: 72842-3 Heart Rate 1: 86 bpm Height: 5'6" SpO2: 98% Weight: 235 lbs 01/19/2018 Blood Pressure 1: 122/68 Code: 8480-6 Heart Rate 1: 78 bpm Height: 5'6" SpO2: 97% Weight: 01/05/2018 Blood Pressure 1: 138/78 Code: 8480-6 BMI: 38.4 Code: 76777-6 Heart Rate 1: 73 bpm Height: 5'6" SpO2: 95% Weight: 238 lbs 11/29/2017 Blood Pressure 1: 138/80 Code: 8480-6 BMI: 38.7 Code: 14733-4 Heart Rate 1: 71 bpm Height: 5'6" SpO2: 97% Weight: 240 lbs 10/25/2017 Blood Pressure 1: 136/72 Code: 8480-6 BMI: 38.7 Code: 17415-5 Heart Rate 1: 92 bpm Height: 5'6" SpO2: 98% Weight: 240 lbs 09/12/2017 Blood Pressure 1: 132/68 Code: 8480-6 BMI: 39.7 Code: 39463-0 Heart Rate 1: 76 bpm Height: 5'6" SpO2: 98% Weight: 246 lbs 06/14/2017 Blood Pressure 1: 130/80 Code: 8480-6 BMI: 39.4 Code: 66026-2 Heart Rate 1: 73 bpm Height: 5'6" SpO2: 95% Temperature: 36.9 (C ) / 98.5 (F) Weight: 244 lbs 05/10/2017 Blood Pressure 1: 128/68 Code: 8480-6 BMI: 38.7 Code: 64223-5 Heart Rate 1: 69 bpm Height: 5'6" SpO2: 97% Weight: 240 lbs 04/19/2017 Blood Pressure 1: 138/74 Code: 8480-6 BMI: 38.7 Code: 49596-1 Heart Rate 1: 73 bpm Height: 5'6" SpO2: 96% Weight: 240 lbs 03/27/2017 Blood Pressure 1: 142/84 Code: 8480-6 BMI: 38.7 Code: 54939-4 Heart Rate 1: 69 bpm Height: 5'6" SpO2: 97% Weight: 240 lbs 01/26/2017 Blood Pressure 1: 136/68 Code: 8480-6 Heart Rate 1: 64 bpm Height: 5'6" SpO2: 96% Weight: 12/07/2016 Blood Pressure 1: 130/72 Code: 8480-6 BMI: 39.7 Code: 78957-5 Heart Rate 1: 73 bpm Height: 5'6" SpO2: 93% Temperature: 36.8 (C ) / 98.3 (F) Weight: 246 lbs 11/28/2016 Blood Pressure 1: 138/60 Code: 8480-6 BMI: 39.7 Code: 54325-4 Heart Rate 1: 81 bpm Height: 5'6" SpO2: 97% Weight: 246 lbs 11/15/2016 Blood Pressure 1: 134/78 Code: 8480-6 BMI: 39.7 Code: 83302-9 Heart Rate 1: 75 bpm Height: 5'6" SpO2: 93% Temperature: 36.8 (C ) / 98.2 (F) Weight: 246 lbs 10/17/2016 Blood Pressure 1: 120/64 Code: 8480-6 BMI: 38.4 Code: 77576-8 Heart Rate 1: 69 bpm Height: 5'6" SpO2: 98% Temperature: 37.2 (C ) / 98.9 (F) Weight: 238 lbs 09/28/2016 Blood Pressure 1: 158/76 Code: 8480-6 BMI: 39.4 Code: 68694-1 Heart Rate 1: 71 bpm Height: 5'6" SpO2: 97% Weight: 244 lbs 06/29/2016 Blood Pressure 1: 124/60 Code: 8480-6 BMI: 38.7 Code: 96613-8 Heart Rate 1: 71 bpm Height: 5'6" SpO2: 98% Weight: 240 lbs 06/01/2016 Blood Pressure 1: 120/62 Code: 8480-6 BMI: 38.6 Code: 62984-3 Heart Rate 1: 76 bpm Height: 5'6" SpO2: 98% Weight: 239 lbs 05/11/2016 Blood Pressure 1: 140/80 Code: 8480-6 BMI: 38.1 Code: 37096-1 Heart Rate 1: 88 bpm Height: 5'6" SpO2: 97% Weight: 236 lbs 04/05/2016 Blood Pressure 1: 142/80 Code: 8480-6 BMI: 38.4 Code: 31534-6 Heart Rate 1: 96 bpm Height: 5'6" SpO2: 98% Weight: 238 lbs 04/01/2016 Blood Pressure 1: 136/88 Code: 8480-6 BMI: 39.2 Code: 46973-4 Heart Rate 1: 86 bpm Height: 5'6" SpO2: 96% Weight: 243 lbs 01/26/2016 Blood Pressure 1: 124/76 Code: 8480-6 BMI: 39.2 Code: 03418-0 Heart Rate 1: 76 bpm Height: 5'6" SpO2: 97% Weight: 243 lbs 12/21/2015 Blood Pressure 1: 120/64 Code: 8480-6 BMI: 37.0 Code: 03168-2 Heart Rate 1: 98 bpm Height: 5'6" SpO2: 97% Weight: 229 lbs 10/12/2015 Blood Pressure 1: 150/64 Code: 8480-6 BMI: 37.4 Code: 12447-1 Heart Rate 1: 70 bpm Height: 5'6" SpO2: 94% Weight: 232 lbs 08/24/2015 Blood Pressure 1: 128/74 Code: 8480-6 BMI: 36.8 Code: 48146-4 Heart Rate 1: 88 bpm Height: 5'6" SpO2: 94% Temperature: 36.8 (C ) / 98.3 (F) Weight: 228 lbs 06/01/2015 Blood Pressure 1: 134/68 Code: 8480-6 BMI: 36.0 Code: 19788-7 Heart Rate 1: 70 bpm Height: 5'6" SpO2: 98% Weight: 223 lbs 05/21/2015 Blood Pressure 1: 126/72 Code: 8480-6 BMI: 35.2 Code: 90468-4 Heart Rate 1: 63 bpm Height: 5'6" SpO2: 95% Weight: 218 lbs 5 oz 03/26/2015 Blood Pressure 1: 140/62 Code: 8480-6 BMI: 35.3 Code: 05235-3 Heart Rate 1: 68 bpm Height: 5'6" Weight: 219 lbs 03/11/2015 Blood Pressure 1: 130/80 Code: 8480-6 BMI: 34.9 Code: 00224-2 Heart Rate 1: 76 bpm Height: 5'6" Temperature: 37.1 (C ) / 98.7 (F) Weight: 216 lbs 12/11/2014 Blood Pressure 1: 134/62 Code: 8480-6 BMI: 34.2 Code: 06526-1 Heart Rate 1: 72 bpm Height: 5'6" Weight: 212 lbs 09/18/2014 Blood Pressure 1: 148/80 Code: 8480-6 BMI: 34.7 Code: 54072-9 Heart Rate 1: 68 bpm Height: 5'6" Weight: 215 lbs 07/31/2014 Blood Pressure 1: 124/72 Code: 8480-6 BMI: 36.2 Code: 25177-5 Heart Rate 1: 68 bpm Height: 5'6" Weight: 224 lbs Functional Status No Functional Status data History of Present Illness Symptom Name Status Resu lt Effective Date Notes Location-Major on the back 04/29/2019 None Quality [...] Severity mi ld 09/28/2016 None 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 09/28/2016 None hypothyroid Onset and Resolution [...] Severity mi ld 06/01/2016 None 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 06/01/2016 None hypothyroid Onset and Resolution [...] and Resolution resolved 04/05/2016 None 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 PATIENT, LEVEL III Diagnosis: Pain in left knee[ICD10: M25.562] Diagnosis: Other pruritus[ICD10: L29.8] Diagnosis: Rash and other nonspecific skin eruption[ICD10: R21] Mishel Finn MD, [facility] CPT-4: 31682 04/29/2019 ([id number]) [id number] EST. P ATIENT, LEVEL IV Diagnosis: Hypothyroidism, unspecified[ICD10: E03.9] Diagnosis: Changes in skin texture[ICD10: R23.4] Diagnosis: Mild intermittent asthma, uncomplicated[ICD10: J45.20] Lynn Finn MD, [facility] CPT-4: 05453 03/21/2019 ([id number]) 69522 EST. P ATIENT, LEVEL IV Diagnosis: Mild intermittent asthma, uncomplicated[ICD10: J45.20] Diagnosis: Hypothyroidism, unspecified[ICD10: E03.9] Diagnosis: Low back pain[ICD10: M54.5] Lynn Finn MD, [facility] CPT- 4: 95845 01/22/2019 ([id number]) Miscellaneou s no charge Diagnosis: Essential (primary) hypertension[ICD10: I10] Damari Finn MD, [facility] CPT-4: 52391 11/21/2018 ([id number]) 30230 EST. P ATIENT, LEVEL IV Diagnosis: Essential (primary) hypertension[ICD10: I10] Diagnosis: Hypothyroidism, unspecified[ICD10: E03.9] Diagnosis: Low back pain[ICD10: M54.5] Lynn Finn MD, [facility] CPT- 4: 93074 10/30/2018 ([id number]) 27397 EST. [facility] Diagnosis: Acute recurrent maxillary sinusitis[ICD10: J01.01] Diagnosis: Other mucopurulent conjunctivitis, left eye[ICD10: H10.022] Diagnosis: Other allergic rhinitis[ICD10: J30.89] Lynn Finn MD, [facility] CPT-4: 10335 06/28/2018 12719 EST. PATIENT, LEVEL IV Diagnosis: Essential (primary) hypertension[ICD10: I10] Diagnosis: Other specified hypothyroidism[ICD10: E03.8] Diagnosis: Other specified anemias[ICD10: D64.89] Diagnosis: Localized edema[ICD10: R60.0] Mishel Finn MD, [facility] CPT-4: 22730 04/04/2018 ([id number]) 94503 EST. P [facility], LEVEL III Diagnosis: Mild persistent asthma, uncomplicated[ICD10: J45.30] Diagnosis: Actinic keratosis[ICD10: L57.0] Lynn Finn MD, [facility] CPT- 4: 99167 01/05/2018 ([id number]) Miscellaneou s no charge Diagnosis: Essential (primary) hypertension[ICD10: I10] Damari Finn MD, [facility] CPT-4: 64987 12/12/2017 89584 EST. PATIENT, LEVEL III Diagnosis: Essential (primary) hypertension[ICD10: I10] Diagnosis: Atrophy of thyroid (acquired)[ICD10: E03.4] Diagnosis: Low back pain[ICD10: M54.5] Mishel Finn MD, [facility] CPT-4: 97653 11/29/2017 36812 EST. PATIENT, LEVEL III Diagnosis: Pain in left hip[ICD10: M25.552] Mishel Finn MD, [facility] CPT-4: 27317 10/25/2017 85256 EST. PATIENT, LEVEL IV Diagnosis: Localized edema[ICD10: R60.0] Mishel Finn MD, [facility] CPT-4: 01497 09/12/2017 45852 EST. PATIENT, LEVEL IV Diagnosis: Mild persistent asthma with (acute) exacerbation[ICD10: J45.31] Mishel Finn MD, [facility] CPT-4: 70067 06/14/2017 55453 EST. PATIENT, LEVEL III Diagnosis: Localized edema[ICD10: R60.0] Diagnosis: Mild persistent asthma, uncomplicated[ICD10: J45.30] Mishel Finn MD, [facility] CPT-4: 73879 05/10/2017 34797 EST. PATIENT, LEVEL III Diagnosis: Mild persistent asthma with (acute) exacerbation[ICD10: J45.31] Mishel Finn MD, [facility] CPT-4: 89780 04/19/2017 ([id number]) 67724 EST. [facility] Diagnosis: Contusion of left wrist, initial encounter[ICD10: S60.212A] Diagnosis: Hypothyroidism, unspecified[ICD10: E03.9] Diagnosis: Mild persistent asthma with (acute) exacerbation[ICD10: J45.31] Diagnosis: Low back pain[ICD10: M54.5] Lynn Finn MD, [facility] CPT- 4: 65404 03/27/2017 ([id number]) 95789 EST. [facility] Diagnosis: Essential (primary) hypertension[ICD10: I10] Diagnosis: Atrophy of thyroid (acquired)[ICD10: E03.4] Diagnosis: Low back pain[ICD10: M54.5] Damari Finn MD, [facility] CPT-4: 26159 01/26/2017 16723 EST. PATIENT, LEVEL III Diagnosis: Other allergic rhinitis[ICD10: J30.89] Diagnosis: Mild persistent asthma with (acute) exacerbation[ICD10: J45.31] Mishel Finn MD, [facility] CPT-4: 53935 12/07/2016 38666 EST. PATIENT, LEVEL III Diagnosis: Mild persistent asthma with (acute) exacerbation[ICD10: J45.31] Mishel Finn MD, [facility] CPT-4: 90998 11/28/2016 78450 EST. PATIENT, LEVEL III Diagnosis: Mild persistent asthma with (acute) exacerbation[ICD10: J45.31] Diagnosis: Acute bronchitis due to other specified organisms[ICD10: J20.8] Mishel Finn MD, [facility] CPT-4: 89436 11/15/2016 65469 EST. PATIENT, LEVEL IV Diagnosis: Other acute sinusitis[ICD10: J01.80] Diagnosis: Other allergic rhinitis[ICD10: J30.89] Diagnosis: Mild persistent asthma with (acute) exacerbation[ICD10: J45.31] Mishel Finn MD, [facility] CPT-4: 79722 10/17/2016 ([id number]) 79024 EST. P ATIENT, LEVEL IV Diagnosis: Essential (primary) hypertension[ICD10: I10] Diagnosis: Low back pain[ICD10: M54.5] Damari Finn MD, [facility] CPT-4: 41727 09/28/2016 35371 EST. PATIENT, LEVEL III Diagnosis: Tinea barbae and tinea capitis[ICD10: B35.0] Diagnosis: Other specified hypothyroidism[ICD10: E03.8] Mishel Finn MD, [facility] CPT-4: 83177 06/29/2016 ([id number]) 64409 EST. P ATIENT, LEVEL IV Diagnosis: Essential (primary) hypertension[ICD10: I10] Diagnosis: Atrophy of thyroid (acquired)[ICD10: E03.4] Diagnosis: Rash and other nonspecific skin eruption[ICD10: R21] Damari Finn MD, [facility] CPT-4: 49383 06/01/2016 ([id number]) 20934 EST. P ATIENT, LEVEL III Diagnosis: Cellulitis of groin[ICD10: L03.314] Damari Finn MD, [facility] CPT- 4: 41092 05/11/2016 ([id number]) 63802 EST. P ATIENT, LEVEL IV Diagnosis: Hypothyroidism, unspecified[ICD10: E03.9] Diagnosis: Candidiasis of vulva and vagina[ICD10: B37.3] Diagnosis: Essential (primary) hypertension[ICD10: I10] Diagnosis: Low back pain[ICD10: M54.5] Lynn Finn MD, [facility] CPT- 4: 99173 04/05/2016 65388 EST. PATIENT, LEVEL III Diagnosis: Other acute sinusitis[ICD10: J01.80] Diagnosis: Rash and other nonspecific skin eruption[ICD10: R21] Mishel Finn MD, [facility] CPT-4: 99877 04/01/2016 ([id number]) 80321 EST. P ATIENT, LEVEL IV Diagnosis: Essential (primary) hypertension[ICD10: I10] Diagnosis: Hypothyroidism, unspecified[ICD10: E03.9] Diagnosis: Low back pain[ICD10: M54.5] Diagnosis: Other obesity due to excess calories[ICD10: E66.09] Lynn Finn MD, [facility] CPT-4: 71183 01/26/2016 21331 EST. PATIENT, LEVEL IV Diagnosis: Essential (primary) hypertension[ICD10: I10] Diagnosis: Cutaneous abscess of face[ICD10: L02.01] Mishel Finn MD, [facility] CPT-4: 57995 12/21/2015 ([id number]) 64278 EST. P ATIENT, LEVEL III Diagnosis: Cutaneous abscess of groin[ICD10: L02.214] Diagnosis: Hypothyroidism, unspecified[ICD10: E03.9] Lynn Finn MD, [facility] CPT-4: 99820 10/12/2015 ([id number]) 64062 EST. P ATIENT, LEVEL III Diagnosis: Essential (primary) hypertension[ICD10: I10] Diagnosis: Hypothyroidism, unspecified[ICD10: E03.9] Diagnosis: Allergic rhinitis, unspecified[ICD10: J30.9] Lynn Finn MD, [facility] CPT-4: 74934 08/24/2015 ([id number]) 06082 EST. P ATIENT, LEVEL III Diagnosis: Skin infection[ICD9: 686.9] Damari Finn MD, [facility] CPT-4: 77343 06/01/2015 ([id number]) 88533 EST. P ATIENT, LEVEL III Diagnosis: Hypothyroidism[ICD9: 244.9] Diagnosis: ESSENTIAL HYPERTENSION[ICD9: 401.9] Damari Finn MD, [facility] CPT- 4: 72248 05/21/2015 ([id number]) 92932 EST. P ATIENT, LEVEL III Diagnosis: Hypothyroidism[ICD9: 244.9] Diagnosis: Fingernail abnormalities[ICD9: 703.8] [facility] CPT-4: 39690 03/26/2015 ([id number]) 74096 EST. P ATIENT, LEVEL II Diagnosis: Hypothyroidism[ICD9: 244.9] [facility] CPT-4: 83734 03/11/2015 ([id number]) 23586 EST. P ATIENT, LEVEL IV Diagnosis: ESSENTIAL HYPERTENSION[ICD9: 401.9] Diagnosis: Low back pain[ICD9: 724.2] Diagnosis: Hypothyroidism[ICD9: 244.9] [facility] CPT-4: 19719 12/11/2014 ([id number]) 07896 EST. P ATIENT, LEVEL IV Diagnosis: Hidradenitis suppurativa[ICD9: 705.83] Diagnosis: ESSENTIAL HYPERTENSION[ICD9: 401.9] Diagnosis: Low back pain[ICD9: 724.2] Diagnosis: Lumbar spinal stenosis[ICD9: 724.02] Diagnosis: HYPOTHYROIDISM[ICD9: 244.9] [facility] CPT-4: 68958 09/18/2014 Office outpatient ne w 30 minutes Diagnosis: ESSENTIAL HYPERTENSION[ICD9: 401.9] Diagnosis: Hypothyroidism[ICD9: 244.9] Diagnosis: Low back pain[ICD9: 724.2] [facility] CPT- 4: 88147 07/31/2014 Plan of Care Planned Activity Notes C odes Status Date Visit Plan: Rash - The patient was [...] or concerns. 04/29/2019 Appointment: Mishel Balderrama WPtel: [address] [place], [place] [id number] (30 min) [facility] 04/29/2019 Patient Education: Patient Medication Summary Completed 04/29/2019 Appointment: Lynn Arenas WPtel: [phone] (30 min) Complex 04/23/2019 Visit Plan: Hypothyroidism -patient is having symptoms of over supplementation -check labs today Skin changes-patient used to see Dr Solitario but hasn't see anyone recently -recommend skin check with Dr Yamel boyd- stable- no change in current treatment 03/21/2019 Appointment: Lynn Arenas WPtel: [phone] [phone] (30 min) Complex 03/21/2019 Patient Education: Patient [...] medical practice. 01/22/2019 Appointment: Lynn Arenas WPtel: [phone] [phone] (30 min) Complex 01/22/2019 Patient Education: Patient [...] indicated 10/30/2018 Appointment: Lynn Arenas WPtel: [phone] [phone] (30 min) Complex 10/30/2018 Patient Education: Patient Medication Summary Completed 10/30/2018 Patient Education: Hypertension Completed 10/30/2018 Patient Education: Back Pain Completed 10/30/2018 Appointment: Lynn Arenas WPtel: [phone] [phone] [place] (30 min) Complex 10/26/2018 Patient Education: Patient Medication Summary Completed 10/23/2018 Appointment: Lynn Arenas WPtel: [phone] [phone] [place] (15 min) Moderate 10/19/2018 [facility]ment[phone] ([facility] Moderate 09/19/2018 Visit Plan: Sinusitis [...] times daily. 06/28/2018 Appointment: Lynn Arenas WPtel[phone] ([facility] min[facility] Complex 06/28/2018 Patient Education: Patient [...] to monitor. 04/04/2018 Appointment: Mishel Balderrama WPtel: [facility] (15 min) Moderate 04/04/2018 Patient Education: Patient Medication Summary Completed 04/04/2018 Visit Plan: Wound Instructions - Pt was instructed to keep the wound clean, wash with antibacterial soap, use triple antibiotic ointment, call if redness, pustular drainage, or any other acute concerns. 01/19/2018 Appointment: Lynn Arenas WPtel: [phone] [phone] (30 min) Complex 01/19/2018 Patient Education: Patient [...] acute concerns. 01/05/2018 Appointment: Lynn Arenas WPtel: [phone] [phone] (30 min) Complex 01/05/2018 Patient Education: Patient [...] improve. 11/29/2017 Appointment: [facility] Balderr[facility]el[phone] [facility] [place] (30 min) Complex 11/29/2017 Patient Education: [...] improve. 10/25/2017 Appointment: Mis[facility] Balderrama [facility]el: [phone] [facility] [place] (30 min) Complex 10/25/2017 Patient Education: [...] peripheral edema. 09/12/2017 Appointment: Mishel Balderrama [facility]Ptel: [phone] [facility] [place] (30 min) Complex 09/12/2017 Patient Education: Patient Medication Summary Completed 09/12/2017 Appointment: Lynn Arenas WPtel: [phone] [phone] [place] (30 min) Complex 06/27/2017 Visit Plan: [...] acute changes. 06/14/2017 Appointment: Mishel Balderrama [facility]Ptel: [phone] [facility] [place] (15 min) Moderate 06/14/2017 Patient Education: [...] acute changes 05/10/2017 Appointment: Mis[facility] Balderrama [facility]Ptel: [phone] [facility] [place] (15 min) Moderate 05/10/2017 Patient Education: [...] changes. 04/19/2017 Appointment: [facility] Balderrama [facility]el[phone] [facility] (15 min) Moderate 04/19/2017 Patient Education: Patient [...] on previous levels of control. Low back gemq-cpydbzi-uasrkn tramadol for prn use 03/27/2017 Appointment: Lynn Arenas WPtel: [phone] [phone] (30 min) Complex 03/27/2017 Patient Education: Patient [...] improve. 01/26/2017 Appointment: Damari Finn WPtel: [phone] [facility] (15 min) Moderate 01/26/2017 Patient Education: Patient [...] or concerns. 12/07/2016 Appointment: Mishel Balderrama WPtel: [phone] [phone] (15 min) Moderate 12/07/2016 Patient Education: Patient [...] wheezing/asthma symptoms. 11/28/2016 Appointment: Mishel Balderrama WPtel: [facility] (15 min) Moderate 11/28/2016 Patient Education: Patient Medication Summary Completed 11/28/2016 Appointment: Mishel Balderrama WPtel: [address] [place], [place] [address] (15 min) Moderate 11/24/2016 Visit Plan: [...] acute changes. 11/15/2016 Appointment: Mishel Balderrama WPtel: [facility]3 [facility] (30 min) Complex 11/15/2016 Patient Education: Patient [...] changes. 10/17/2016 Appointment: Mishel Balderrama [facility]Ptel: [phone] [facility] (30 min) Complex 10/17/2016 Patient Education: Patient [...] prn tylenol 09/28/2016 Appointment: [phone] (15 min) Moderate 09/28/2016 Patient [...] of control. 06/29/2016 Appointment: Lynn Arenas WPtel: [phone] [phone] (15 min) Moderate 06/29/2016 Patient Education: Patient [...] for fluconazole 06/01/2016 Appointment: Damari Finn WPtel: [facility] (15 min) Moderate 06/01/2016 Patient Education: Patient Medication Summary Completed 06/01/2016 Patient Education: Obesity Completed 06/01/2016 Visit Plan: Cellulitis - continue w ith oral antibiotics as previously directed, return to clinic as previously directed, call for acute change in symptoms, worsening redness, warmth, discharge. 05/11/2016 Appointment: Damari Finn WPtel: [facility] [address] (15 min) Moderate 05/11/2016 Patient Education: Patient [...] any concerns. 04/01/2016 Appointment: Lynn Arenas WPtel: [facility]5 [phone] (30 min) Complex 04/01/2016 Patient Education: Patient Medication Summary Completed 04/01/2016 Patient Education: Obesity Completed 04/01/2016 Appointment: Lynn Arenas WPtel: [phone] (30 min) Complex 03/29/2016 Visit Plan: Hypertension [...] levels of control. Low back pain-refill tramadol Tbcqj-xgpksbduje-axjlxyts resolved 01/26/2016 Appointment: Lynn Arenas WPtel: [phone] [phone] (30 min) Complex 01/26/2016 Patient Education: Patient Medication Summary Completed 01/26/2016 Patient Education: Obesity Completed 01/26/2016 Care Plan: BMI Above normal followup RADHA F-MGMT EDUC & TRAIN 1 PT Pending 01/26/2016 Care Plan: Referral Order SNOMED-CT : [id number] Pending 01/07/2016 Appointment: Lynn Arenas WPtel: [phone] [phone] (15 min) Moderate 12/24/2015 Visit Plan: Hypertension [...] nor improving. 06/01/2015 Appointment: Damari Finn WPtel: [facility] (15 min) Moderate 06/01/2015 Patient Education: Patient [...] refill tramadol 12/11/2014 Appointment: Damari Finn WPtel: [facility] [facility] follow up 12/11/2014 Patient Education: Patient Medication Summary Completed 12/11/2014 Patient Education: Hypertension Completed 12/11/2014 Appointment: Damari Finn WPtel: [facility] [facility] follow up 11/27/2014 Visit Plan: Hidradenitis Suppurativ [...] to get her back MRI done at [facility] in [place] as that is where her specialist will be once we get her an appt with one of the local Neurosurgeons. 09/18/2014 Appointment: Damari Finn WPtel: [phone] [facility] Follow up 09/18/2014 Patient Education: Patient Medication Summary Completed 09/18/2014 Patient Education: Hypertension Completed 09/18/2014 Visit Plan: Hypertension - well con trobibied - continue with current medications, continue [...] as scheduled 07/31/2014 Appointment: [facility] Arenas [facility]Ptel: [phone] [phone] [place] New Patient 07/31/2014 Patient Education: Patient Medication Summary Completed 07/31/2014 Referral: Artur Daugherty she w ill be calling and making her appt Initiated Referral: Artur Daugherty Referral Initiated Instructions Comment . Skin infection - r ecommended treatment with oral antibiotic and topical antibiotic. Pt to call if nor improving. . Cellulitis - oleg nue with oral antibiotics as previously directed, return to clinic as previously directed, call for acute change in symptoms, worsening redness, warmth, discharge. CHECK LABS AND UA APPOINTMENT WITH DR [...] . 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 Asthma Exacerbation - Asthma is a supervisor pumping jamee problem for this patient, however, the [...] as directed for dyspnea/persistent wheezing/asthma symptoms. . Sinusitis - Pt has acute infection - pain in face, maxillary region, Pt informed to use decongestant, RX given to patient, sinus rinses also recommended. Call if symptoms do not show improvement. Dermatitis around lips - will send RX - pt is to notify clinic if symptoms do not improve, or with any concerns. . Hypertension - wel l controlled [...] Chronic back pain - refill tramadol . Wound Instructions - Pt was instructed to keep the wound clean, wash with antibacterial soap, use triple antibiotic ointment, call if redness, pustular drainage, or any other acute concerns. . Edema - Right leg noticeably more [...] months based on previous levels of control. . Hypertension - wel l controlled - [...] pain is worsening or does not improve. Check thyroid on Feb. Will refill blood [...] referral to Dr. Daugherty. Will refer pt. claritin or zyrtec . Sinusitis - Pt [...] . Asthma Exacerbation - Asthma is a supervisor pumping jamee problem for this patient, however, the [...] on previous levels of control. Low back bfso-wlvrblj-fyhosz tramadol for prn use . Brittle fingernail s-erythema of fingernails-nail sample clipped and sent for culture-suspect changes are due to thyroid illness-repeat thyroid labs in 6-8 weeks Steroid shot today breathing treatments 3 times [...] worsen, or with any questions or concerns. bactroban ointment t o sore twice daily [...] pain is worsening or does not improve. Declined Procedure: ([id number]) FLU VAC NO PRSV 4 JUSTYNA 3 YRS+; Declined Reason: refused Physical therapy at [facility] . Hypertension - well controlled - [...] L4/L5-follow up with Dr Lincoln as scheduled tramadol-Dillons . Hypertension - well controlled - [...] levels of control. Low back pain-refill tramadol Kiuux-lgldlguegr-jlllwjzx resolved . Hypertension - wel l controlled [...] to get her back MRI done at [facility] in [place] as that is where her specialist will [...] the nasal steroid allergy spray. Coricidin HBP . Hypertension - wel l controlled - [...]
--- OUTSIDE RECORDS SUMMARY | 2020-02-20 18:40 | XMS REPORT | CCD ---
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 Unknown Has never used illegal drugs 014 Allergies, Adverse Reactions, Alerts Substance Reaction Codes Entered Date Inactivated Date Status * NO KNOWN FOOD BEVERLY RGIES Unknown 07/31/2014 No Inactive Date Active bactrim hives, rash RxNorm: 969807 04/05/2016 No Inactive Date Active Past Medical [...] Date Stop Date Sta tus Fill Instructions tramadol 50 mg tablet RxNorm: 108813 1 Tablet(s) PO Q4 PRN as needed for pain 05/06/2019 06/14/2019 Ac tive tramadol 50 mg tablet RxNorm: 604969 TAKE ONE TABLET BY MOUTH EVERY 6 HOURS A S NEEDED FOR PAIN 05/06/2019 06/04/2019 Active prednisone 20 mg tablet RxNorm: 514579 1 Tablet(s) PO BID x 2 days, then 1 pill daily x 3 days, then 1/2 pill every other day x 3 doses. 04/29/2019 No Stop Date Active tramadol 50 mg tablet RxNorm: 318896 1 Tablet(s) PO Q6 PRN as needed for pain 04/09/2019 05/06/2019 In active levothyroxine 125 mc g tablet RxNorm: 103837 1 Tablet(s) PO daily TAKE ONE TABLET BY MOUTH DAILY ON AN EMPTY STOMACH 03/25/2019 06/16/2020 Active lorazepam 1 mg tablet RxNorm: 214405 Tablet(s) TAKE TWO TABLETS BY MOUTH AT B EDTIME NEEDED FOR INSOMNIA AND ONE TABLET DAILY NEEDED ANXIETY 03/15/2019 05/13/2019 Active tramadol 50 mg tablet RxNorm: 708400 1 Tablet(s) PO Q4 PRN as needed for pain 03/15/2019 04/08/2019 In active tramadol 50 mg tablet RxNorm: 004239 1 Tablet(s) PO Q4 PRN as needed for pain 02/20/2019 03/14/2019 In active lorazepam 1 mg tablet RxNorm: 832325 Tablet(s) TAKE TWO TABLETS BY MOUTH AT B EDTIME NEEDED FOR INSOMNIA AND ONE TABLET DAILY NEEDED ANXIETY 01/04/2019 03/03/2019 Inactive Keflex 500 mg capsule RxNorm: 867544 1 Capsule(s) PO TID 12/05/2018 12/11/2018 Inactive tramadol 50 mg tablet RxNorm: 756850 1 Tablet(s) PO Q4 PRN as needed for pain 12/05/2018 01/12/2019 In active ciprofloxacin 0.3 % eye drops RxNorm: 087973 INSTILL TWO DROPS TO THE AFFECTED EYE(S) THREE TIMES A DAY 11/23/2018 12/25/2018 Inactive ProAir HFA 90 mcg/ac tuation aerosol inhaler RxNorm: 0396141 1-2 Puff(s) INH Q4 P RN INHALE 1 TO 2 PUFFS FOUR TIMES A DAY NEEDED FOR ASTHMA 10/30/2018 01/27/2019 Inactive levothyroxine 137 mc g tablet RxNorm: 881270 1 Tablet(s) PO daily TAKE ONE TABLET BY MOUTH DAILY ON AN EMPTY STOMACH 10/30/2018 03/24/2019 Inactive tramadol 50 mg tablet RxNorm: 934393 1 Tablet(s) PO Q4 PRN as needed for pain 10/29/2018 12/04/2018 In active levothyroxine 125 mc g tablet RxNorm: 789472 1 Tablet(s) PO daily TAKE ONE TABLET BY MOUTH DAILY ON AN EMPTY STOMACH 09/06/2018 10/29/2018 Inactive lorazepam 1 mg tablet RxNorm: 455951 Tablet(s) TAKE TWO TABLETS BY MOUTH AT B EDTIME NEEDED FOR INSOMNIA AND ONE TABLET DAILY NEEDED ANXIETY 09/06/2018 11/02/2018 Inactive tramadol 50 mg tablet RxNorm: 267124 1 Tablet(s) PO Q4 PRN as needed for pain 09/06/2018 10/15/2018 In active tramadol 50 mg tablet RxNorm: 427836 1 Tablet(s) PO Q4 PRN as needed for pain 07/06/2018 08/14/2018 In active ciprofloxacin 0.3 % eye drops RxNorm: 534430 2 Drop(s) ophthalmic (eye) TID 06/28/2018 07/07/2018 In active lorazepam 1 mg tablet RxNorm: 613956 Tablet(s) TAKE TWO TABLETS BY MOUTH AT B EDTIME NEEDED FOR INSOMNIA AND ONE TABLET DAILY NEEDED ANXIETY 06/28/2018 08/26/2018 Inactive doxycycline hyclate 100 mg tablet RxNorm: 8766769 1 Tablet(s) PO BID 06/28/2018 07/04/2018 Inactive tramadol 50 mg tablet RxNorm: 531251 1 Tablet(s) PO Q4 PRN as needed for pain 06/13/2018 07/05/2018 In active lorazepam 1 mg tablet RxNorm: 061683 Tablet(s) TAKE TWO TABLETS BY MOUTH AT B EDTIME NEEDED FOR INSOMNIA AND ONE TABLET DAILY NEEDED ANXIETY 05/23/2018 06/27/2018 Inactive tramadol 50 mg tablet RxNorm: 656464 1 Tablet(s) PO Q4 PRN as needed for pain 05/23/2018 06/12/2018 In active levothyroxine 125 mc g tablet RxNorm: 642918 Tablet(s) TAKE ONE TA BLET BY MOUTH DAILY ON AN EMPTY STOMACH 05/23/2018 09/05/2018 Inactive tramadol 50 mg tablet RxNorm: 002686 1 Tablet(s) PO Q4 PRN as needed for pain 05/17/2018 05/22/2018 In active levothyroxine 125 mc g tablet RxNorm: 696183 TAKE ONE TABLET BY MO UTH DAILY 05/15/2018 06/27/2018 In active levothyroxine 125 mc g tablet RxNorm: 301586 TAKE ONE TABLET BY MO UTH DAILY 05/15/2018 06/27/2018 In active tramadol 50 mg tablet RxNorm: 100735 1 Tablet(s) PO Q4 PRN as needed for pain 04/30/2018 05/16/2018 In active Advair Diskus 100 mc g-50 mcg/dose powder for inhalation RxNorm: 6243728 1 Puff(s) INH BID 04/06/2018 01/21/2019 Inactive Symbicort 80 mcg-4.5 mcg/actuation HFA aerosol inhaler RxNorm: 4485497 2 Puff(s) INH BID 04/06/2018 01/21/2019 Inactive Advair Diskus 250 mc g-50 mcg/dose powder for inhalation RxNorm: 3324211 1 Puff(s) INH BID 04/05/2018 09/01/2018 Inactive Zyrtec 10 mg tablet RxNorm: 8254964 1 Tablet(s) PO daily x1 week then PRN 04/05/2018 08/02/2018 In active lisinopril 20 mg-hyd rochlorothiazide 25 mg tablet RxNorm: 911543 Tablet(s) TAKE ONE TABLET BY MOUTH DAILY 04/05/2018 10/29/2018 Inactive Zyrtec 10 mg tablet RxNorm: 4136792 1 Tablet(s) PO daily 04/04/2018 05/03/2018 Inactive tramadol 50 mg tablet RxNorm: 550457 1 Tablet(s) PO Q4 PRN as needed for pain 03/13/2018 04/21/2018 In active lorazepam 1 mg tablet RxNorm: 527286 Tablet(s) TAKE TWO TABLETS BY MOUTH AT B EDTIME NEEDED FOR INSOMNIA AND ONE TABLET DAILY NEEDED ANXIETY 03/02/2018 04/30/2018 Inactive levothyroxine 125 mc g tablet RxNorm: 602093 1 Tablet(s) PO daily 02/06/2018 05/06/2018 Inactive levothyroxine 125 mc g tablet RxNorm: 751515 TAKE ONE TABLET BY [facility] DAILY ON AN EMPTY STOMACH 02/06/2018 05/22/2018 Inactive tramadol 50 mg tablet RxNorm: 290240 1 Tablet(s) PO Q4 PRN as needed for pain 01/26/2018 03/06/2018 In active lorazepam 1 mg tablet RxNorm: 472632 Tablet(s) TAKE TWO TABLETS BY MOUTH AT B EDTIME NEEDED FOR INSOMNIA AND ONE TABLET DAILY NEEDED ANXIETY 01/23/2018 06/27/2018 Inactive Symbicort 80 mcg-4.5 mcg/actuation HFA aerosol inhaler RxNorm: 3939847 INH 01/05/2018 06/27/2018 In active tramadol 50 mg tablet RxNorm: 002425 1 Tablet(s) PO Q4 PRN as needed for pain 01/04/2018 01/25/2018 In active Advair Diskus 250 mc g-50 mcg/dose powder for inhalation RxNorm: 5417829 1 Puff(s) INH BID 11/29/2017 03/28/2018 Inactive hydrochlorothiazide 12.5 mg tablet RxNorm: 431109 1 Tablet(s) PO daily 11/29/2017 12/28/2017 In active tramadol 50 mg tablet RxNorm: 783488 1 Tablet(s) PO Q4 PRN as needed for pain 11/23/2017 01/01/2018 In active tramadol 50 mg tablet RxNorm: 938708 1 Tablet(s) PO Q4 PRN as needed for pain 10/06/2017 11/14/2017 In active lorazepam 1 mg tablet RxNorm: 162211 Tablet(s) TAKE TWO TABLETS BY MOUTH AT B EDTIME NEEDED FOR INSOMNIA AND ONE TABLET DAILY NEEDED ANXIETY 09/12/2017 06/27/2018 Inactive tramadol 50 mg tablet RxNorm: 434649 1 Tablet(s) PO Q4 PRN as needed for pain 09/12/2017 10/05/2017 In active tramadol 50 mg tablet RxNorm: 836669 1 Tablet(s) PO Q4 PRN as needed for pain 08/15/2017 09/11/2017 In active tramadol 50 mg tablet RxNorm: 475920 1 Tablet(s) PO Q4 PRN as needed for pain 06/29/2017 08/07/2017 In active ProAir HFA 90 mcg/ac tuation aerosol inhaler RxNorm: 8936732 INHALE 1 TO 2 PUFFS FOUR TIMES A DAY NEEDED FOR ASTHMA 06/14/2017 11/10/2017 Inactive prednisone 20 mg tablet RxNorm: 014614 1 Tablet(s) PO BID x 2 days, then 1 pill daily x 3 days, then 1/2 pill every other day x 3 doses. 06/14/2017 09/11/2017 Inactive Kenalog 40 mg/mL madhavi pension for injection RxNorm: 1737459 1 Milliliter(s) Inj 06/14/2017 06/14/2017 In active Zyrtec 10 mg tablet RxNorm: 2817988 1 Tablet(s) PO daily 06/14/2017 07/13/2017 Inactive tramadol 50 mg tablet RxNorm: 964961 1 Tablet(s) PO Q4 PRN as needed for pain 06/08/2017 06/27/2017 In active [SAVINGS FOR UNINSURED PATIENTS -- BIN:0 54067, PCN: ASPROD1, Group: [id number], ID# [id number], Process claim through PayStand, for questions: . THIS IS NOT INSURANCE.] tramadol 50 mg tablet RxNorm: 996569 1 Tablet(s) PO Q4 PRN as needed for pain 05/16/2017 06/04/2017 In active [SAVINGS FOR UNINSURED PATIENTS -- BIN:0 40218, PCN: ASPROD1, Group: [id number], ID# [id number], Process claim through PayStand, for questions: . THIS IS NOT INSURANCE.] lorazepam 1 mg tablet RxNorm: 392473 Tablet(s) TAKE TWO TABLETS BY MOUTH AT B EDTIME NEEDED FOR INSOMNIA AND ONE TABLET DAILY NEEDED ANXIETY 05/16/2017 08/13/2017 Inactive Lasix 20 mg tablet RxNorm: 756524 1 Tablet(s) PO daily 05/10/2017 05/09/2017 Inactive Lasix 20 mg tablet RxNorm: 1 Tablet(s) PO daily 05/10/2017 05/12/2017 Inactive potassium chloride E R 10 mEq tablet,extended release RxNorm: 958791 1 Tablet(s) PO daily while on the lasix 05/10/2017 05/09/2017 Inactive potassium chloride E R 10 mEq tablet,extended release RxNorm: 441629 1 Tablet(s) PO daily while on the lasix 05/10/2017 05/12/2017 Inactive prednisone 20 mg tablet RxNorm: 544802 1 Tablet(s) PO BID x 2 days, then 1 pill daily x 3 days, then 1/2 pill every other day x 3 doses. 04/19/2017 06/13/2017 Inactive Zithromax Z-Linus 250 mg tablet RxNorm: 483700 1 Tablet(s) PO UD 04/13/2017 06/28/2017 Inactive prednisone 20 mg tablet RxNorm: 235828 1 Tablet(s) PO BID 04/13/2017 04/17/2017 Inactive levothyroxine 125 mc g tablet RxNorm: 126802 1 Tablet(s) PO daily 04/11/2017 10/07/2017 Inactive tramadol 50 mg tablet RxNorm: 112859 1 Tablet(s) PO Q4 PRN as needed for pain 03/27/2017 04/15/2017 In active [SAVINGS FOR UNINSURED PATIENTS -- BIN:0 58190, PCN: ASPROD1, Group: [id number], ID# [id number], Process claim through PayStand, for questions: . THIS IS NOT INSURANCE.] Kenalog 40 mg/mL madhavi pension for injection RxNorm: 5830253 1 Milliliter(s) Inj 03/27/2017 03/27/2017 In active tramadol 50 mg tablet RxNorm: 496551 1 Tablet(s) PO Q4H as needed for pain 03/09/2017 03/26/2017 In active [SAVINGS FOR UNINSURED PATIENTS -- BIN:0 30954, PCN: ASPROD1, Group: [id number], ID# [id number], Process claim through [employer], for questions: . THIS IS NOT INSURANCE.] lisinopril 20 mg-hyd rochlorothiazide 25 mg tablet RxNorm: 848956 TAKE ONE TABLET BY MOUTH DAILY 01/29/2017 11/21/2017 Inactive lorazepam 1 mg tablet RxNorm: 602590 Tablet(s) TAKE TWO TABLETS BY MOUTH AT B EDTIME NEEDED FOR INSOMNIA AND ONE TABLET DAILY NEEDED ANXIETY 01/05/2017 04/04/2017 Inactive tramadol 50 mg tablet RxNorm: 203646 1 Tablet(s) PO Q4H as needed for pain 12/07/2016 01/13/2017 In active [SAVINGS FOR UNINSURED PATIENTS -- BIN:0 41257, PCN: ASPROD1, Group: [id number], ID# [id number], Process claim through PayStand, for questions: . THIS IS NOT INSURANCE.] Kenalog 40 mg/mL madhavi pension for injection RxNorm: 0422627 Milliliter(s) Inj 12/07/2016 12/07/2016 In active nystatin 100,000 uni t/mL oral suspension RxNorm: 607438 4 Milliliter(s) PO QI D 12/07/2016 12/11/2016 In active Francia-D 12 Hour 60 mg-120 mg tablet,extended release RxNorm: 874885 1 Tablet(s) PO BID 12/07/2016 01/11/2017 Inactive lorazepam 1 mg tablet RxNorm: 840440 Tablet(s) TAKE TWO TABLETS BY MOUTH AT B EDTIME AND ONE TABLET DAILY NEEDED 12/07/2016 01/04/2017 Inactive (Response to an electronic controlled substance refill request - RxReferenceNumber: [id number]) albuterol sulfate 2. 5 mg/3 mL (0.083 %) solution for nebulization RxNorm: 652346 3 Milliliter(s) INH TID 11/29/2016 11/28/2016 Inactive prednisone 10 mg tablet RxNorm: 686707 Tablet(s) PO UD 11/29/2016 12/05/2016 Inactive 6,5,4,3,2,1 doxycycline hyclate 100 mg tablet RxNorm: 728881 1 Tablet(s) PO BID 11/29/2016 12/04/2016 Inactive albuterol sulfate 2. 5 mg/3 mL (0.083 %) solution for nebulization RxNorm: 804517 3 Milliliter(s) INH TID 11/29/2016 12/03/2016 Inactive Kenalog 40 mg/mL madhavi pension for injection RxNorm: 1113199 Milliliter(s) Inj 11/28/2016 11/28/2016 In active tramadol 50 mg tablet RxNorm: 762752 1 Tablet(s) PO Q4H as needed for pain 11/15/2016 12/06/2016 In active [SAVINGS FOR UNINSURED PATIENTS -- BIN:0 24711, PCN: ASPROD1, Group: [id number], ID# [id number], Process claim through PayStand, for questions: . THIS IS NOT INSURANCE.] prednisone 20 mg tablet RxNorm: 680999 2 Tablet(s) PO daily 11/15/2016 11/19/2016 Inactive Advair Diskus 100 mc g-50 mcg/dose powder for inhalation RxNorm: 5640097 1 Puff(s) INH BID 11/15/2016 06/11/2017 Inactive ProAir HFA 90 mcg/ac tuation aerosol inhaler RxNorm: 833365 INHALE 1 TO 2 PUFFS F OUR TIMES A DAY NEEDED FOR ASTHMA 11/15/2016 04/13/2017 Inactive Zithromax Z-Linus 250 mg tablet RxNorm: 823236 1 Tablet(s) PO UD 11/15/2016 11/27/2016 Inactive Zyrtec 10 mg tablet RxNorm: 3177587 1 Tablet(s) PO daily 10/17/2016 11/15/2016 Inactive Keflex 500 mg capsule RxNorm: 352217 1 Capsule(s) PO TID 10/17/2016 10/23/2016 Inactive prednisone 10 mg tablet RxNorm: 520774 Tablet(s) PO UD 10/17/2016 11/28/2016 Inactive 6,5,4,3,2,1 tramadol 50 mg tablet RxNorm: 932043 1 Tablet(s) PO Q4H as needed for pain 09/28/2016 11/06/2016 In active [SAVINGS FOR UNINSURED PATIENTS -- BIN:0 28352, PCN: ASPROD1, Group: [id number], ID# [id number], Process claim through PayStand, for questions: . THIS IS NOT INSURANCE.] ProAir HFA 90 mcg/ac tuation aerosol inhaler RxNorm: 935532 INHALE 1 TO 2 PUFFS F OUR TIMES A DAY NEEDED FOR ASTHMA 09/15/2016 11/14/2016 Inactive doxycycline hyclate 100 mg tablet RxNorm: 608488 1 Tablet(s) PO BID 09/15/2016 09/24/2016 Inactive doxycycline hyclate 100 mg tablet RxNorm: 571335 1 Tablet(s) PO BID 07/29/2016 08/07/2016 Inactive tramadol 50 mg tablet RxNorm: 654140 1 Tablet(s) PO Q4H as needed for pain 07/29/2016 09/06/2016 In active [SAVINGS FOR UNINSURED PATIENTS -- BIN:0 27648, PCN: ASPROD1, Group: [id number], ID# [id number], Process claim through PayStand, for questions: . THIS IS NOT INSURANCE.] lorazepam 1 mg tablet RxNorm: 948725 Tablet(s) TAKE TWO TABLETS BY MOUTH AT B EDTIME AND ONE TABLET DAILY NEEDED 07/29/2016 10/26/2016 Inactive (Response to an electronic controlled substance refill request - [facility]: [id number]) levothyroxine 125 mc g tablet RxNorm: 393713 1 Tablet(s) PO daily 06/29/2016 06/29/2016 Inactive levothyroxine 137 mc g tablet RxNorm: 210887 1 Tablet(s) PO daily 06/29/2016 12/25/2016 Inactive ketoconazole 2 % sha mpoo RxNorm: 127359 1 Application TOP BID 06/29/2016 07/03/2016 Inactive tramadol 50 mg tablet RxNorm: 898544 1 Tablet(s) PO Q4H as needed for pain 06/16/2016 07/25/2016 In active [SAVINGS FOR UNINSURED PATIENTS -- BIN:0 93101, PCN: ASPROD1, Group: [id number], ID# [id number], Process claim through PayStand, for questions: . THIS IS NOT INSURANCE.] Bactroban 2 % topica l ointment RxNorm: 182603 APPLY TO AFFECTED ARE A(S) TWO TIMES A DAY 06/16/2016 04/16/2017 Inactive fluconazole 150 mg t ablet RxNorm: 132479 1 Tablet(s) PO daily 06/01/2016 06/05/2016 Inactive gentamicin 0.1 % top ical ointment RxNorm: 071689 1 Application TOP QID 05/12/2016 05/25/2016 In active metronidazole 500 mg tablet RxNorm: 438760 1 Tablet(s) PO TID 05/11/2016 05/24/2016 Inactive gentamicin 0.1 % top ical ointment RxNorm: 394807 1 Application TOP QID 05/11/2016 05/11/2016 In active doxycycline hyclate 100 mg tablet RxNorm: 011968 1 Tablet(s) PO BID 05/11/2016 05/24/2016 Inactive lorazepam 1 mg tablet RxNorm: 993844 Tablet(s) TAKE TWO TABLETS BY MOUTH AT B EDTIME AND ONE TABLET DAILY NEEDED 05/02/2016 07/28/2016 Inactive (Response to an electronic controlled substance refill request - [facility]ber: [id number]) Diflucan 150 mg tablet RxNorm: 657994 1 Tablet(s) PO daily x5 days then 1 x we ekly x 4 weeks. 05/02/2016 04/10/2017 Inactive Diflucan 150 mg tablet RxNorm: 850202 1 Tablet(s) PO every other day 04/19/2016 04/28/2016 In active Diflucan 150 mg tablet RxNorm: 413099 1 Tablet(s) PO every other day 04/19/2016 04/18/2016 In active Diflucan 150 mg tablet RxNorm: 779458 1 Tablet(s) PO daily 04/05/2016 04/11/2016 Inactive mupirocin 2 % topica l ointment RxNorm: 861229 1 Application TOP BID 04/05/2016 05/04/2016 Inactive tramadol 50 mg tablet RxNorm: 776334 1 Tablet(s) PO Q4H as needed for pain 04/05/2016 05/14/2016 In active [SAVINGS FOR UNINSURED PATIENTS -- BIN:0 86519, PCN: ASPROD1, Group: [id number], ID# [id number], Process claim through PayStand, for questions: . THIS IS NOT INSURANCE.] prednisone 10 mg tablet RxNorm: 209156 Tablet(s) PO UD 04/01/2016 09/26/2016 Inactive 6,5,4,3,2,1 levothyroxine 137 mc g tablet RxNorm: 715157 1 Tablet(s) PO daily 03/21/2016 03/20/2016 Inactive levothyroxine 137 mc g tablet RxNorm: 321930 1 Tablet(s) PO daily 03/21/2016 06/28/2016 Inactive Advair Diskus 100 mc g-50 mcg/dose powder for inhalation RxNorm: 6643607 1 Puff(s) INH BID 01/26/2016 05/24/2016 Inactive tramadol 50 mg tablet RxNorm: 752780 1 Tablet(s) PO Q4H as needed for pain 01/26/2016 03/05/2016 In active [SAVINGS FOR UNINSURED PATIENTS -- BIN:0 19190, PCN: ASPROD1, Group: [id number], ID# [id number], Process claim through [employer], for questions: . THIS IS NOT INSURANCE.] Bactroban 2 % topica l ointment RxNorm: 087473 APPLY TO AFFECTED ARE A(S) TWO TIMES A DAY 12/22/2015 12/31/2015 Inactive Bactrim DS 800 mg-16 0 mg tablet RxNorm: 081350 TAKE ONE TABLET BY [facility] TWICE A DAY 12/22/2015 04/18/2016 In active Bactrim DS 800 mg-16 0 mg tablet RxNorm: 577592 1 Tablet(s) PO BID 12/21/2015 01/21/2019 Inactive lisinopril 20 mg-hyd rochlorothiazide 25 mg tablet RxNorm: 063229 1 Tablet(s) PO daily 12/21/2015 06/17/2016 Inactive [SAVINGS FOR UNINSURED PATIENTS -- BIN:0 91152, PCN: ASPROD1, Group: [id number], ID# [id number], Process claim through [email or web address], for questions: . THIS IS NOT INSURANCE.] tramadol 50 mg tablet RxNorm: 159980 1 Tablet(s) PO Q4H as needed for pain 12/03/2015 01/11/2016 In active [SAVINGS FOR UNINSURED PATIENTS -- BIN:0 71589, PCN: ASPROD1, Group: [id number], ID# [id number], Process claim through [employer], for questions: . THIS IS NOT INSURANCE.] lorazepam 1 mg tablet RxNorm: 762924 Tablet(s) TAKE TWO TABLETS BY MOUTH AT B EDTIME AND ONE TABLET DAILY NEEDED 11/26/2015 06/27/2018 Inactive (Response to an electronic controlled substance refill request - RxReferenceNumber: [id number]) Bactrim DS 800 mg-16 0 mg tablet RxNorm: 113857 1 Tablet(s) PO BID 11/25/2015 12/04/2015 Inactive levothyroxine 150 mc g tablet RxNorm: 445498 1 Tablet(s) PO daily 11/25/2015 03/20/2016 Inactive Bactroban 2 % topica l ointment RxNorm: 431113 1 Application TOP BID 10/12/2015 10/21/2015 Inactive Bactrim DS 800 mg-16 0 mg tablet RxNorm: 481326 1 Tablet(s) PO BID 09/07/2015 09/06/2015 Inactive Bactrim DS 800 mg-16 0 mg tablet RxNorm: 056217 1 Tablet(s) PO BID 09/07/2015 09/16/2015 Inactive lorazepam 1 mg tablet RxNorm: 144581 Tablet(s) TAKE TWO TABLETS BY MOUTH AT B EDTIME AND ONE TABLET DAILY NEEDED 08/28/2015 11/24/2015 Inactive (Response to an electronic controlled substance refill request - RxReferenceNumber: [id number]) levothyroxine 175 mc g tablet RxNorm: 146102 1 Tablet(s) PO daily 08/24/2015 11/24/2015 Inactive tramadol 50 mg tablet RxNorm: 985967 1 Tablet(s) PO Q4H as needed for pain 08/24/2015 09/11/2017 In active [SAVINGS FOR UNINSURED PATIENTS -- BIN:0 13828, PCN: ASPROD1, Group: [id number], ID# [id number], Process claim through PayStand, for questions: . THIS IS NOT INSURANCE.] lisinopril 20 mg-hyd rochlorothiazide 25 mg tablet RxNorm: 953501 1 Tablet(s) PO daily TAKE 1 TABLET BY MOUTH DAILY 08/24/2015 06/27/2018 Inactive ProAir HFA 90 mcg/ac tuation aerosol inhaler RxNorm: 544513 1-2 Puff(s) INH PRN I NHALE ONE TO TWO PUFFS BY MOUTH FOUR TIMES A DAY NEEDED FOR ASTHMA 08/24/2015 12/01/2015 In active ProAir HFA 90 mcg/ac tuation aerosol inhaler RxNorm: 4821441 INHALE ONE TO TWO PU FFS BY MOUTH FOUR TIMES A DAY NEEDED FOR ASTHMA 08/17/2015 08/23/2015 Inactive Advair Diskus 250 mc g-50 mcg/dose powder for inhalation RxNorm: 3631148 1 Puff(s) INH BID 07/20/2015 07/19/2015 Inactive Advair Diskus 250 mc g-50 mcg/dose powder for inhalation RxNorm: 9491957 1 Puff(s) INH BID 07/20/2015 11/16/2015 Inactive tramadol 50 mg tablet RxNorm: 219522 1 Tablet(s) PO Q4H as needed for pain 07/10/2015 08/17/2015 In active [SAVINGS FOR UNINSURED PATIENTS -- BIN:0 96803, PCN: ASPROD1, Group: [id number], ID# [id number], Process claim through [employer]Stand, for questions: . THIS IS NOT INSURANCE.] Zithromax Z-Linus 250 mg tablet RxNorm: 535754 1 Tablet(s) PO UD 07/10/2015 01/18/2016 Inactive Keflex 500 mg capsule RxNorm: 499327 1 Capsule(s) PO TID 06/01/2015 06/07/2015 Inactive mupirocin 2 % topica l ointment RxNorm: 559990 1 Application TOP TID 06/01/2015 06/10/2015 Inactive lisinopril 20 mg-hyd rochlorothiazide 25 mg tablet RxNorm: 146464 TAKE 1 TABLET BY MOUT H DAILY 05/30/2015 08/23/2015 Inactive lisinopril 20 mg-hyd rochlorothiazide 25 mg tablet RxNorm: 514801 1 Tablet(s) PO daily 05/29/2015 11/24/2015 Inactive [SAVINGS FOR UNINSURED PATIENTS -- BIN:0 28905, PCN: ASPROD1, Group: [id number], ID# [id number], Process claim through [employer], for questions: . THIS IS NOT INSURANCE.] lorazepam 1 mg tablet RxNorm: 772742 Tablet(s) TAKE TWO TABLETS BY MOUTH AT B EDTIME AND ONE TABLET DAILY NEEDED 04/17/2015 07/13/2015 Inactive (Response to an electronic controlled substance refill request - RxReferenceNumber: [id number]) levothyroxine 200 mc g tablet RxNorm: 401007 1 Tablet(s) PO daily 03/12/2015 08/23/2015 Inactive [SAVINGS FOR UNINSURED PATIENTS -- BIN:0 66657, PCN: ASPROD1, Group: [id number], ID# [id number], Process claim through [employer]Stand, for questions: . THIS IS NOT INSURANCE.] lisinopril 20 mg-hyd rochlorothiazide 25 mg tablet RxNorm: 320845 1 Tablet(s) PO daily 03/11/2015 05/28/2015 Inactive [SAVINGS FOR UNINSURED PATIENTS -- BIN:0 97102, PCN: ASPROD1, Group: [id number], ID# [id number], Process claim through [employer]Stand, for questions: . THIS IS NOT INSURANCE.] levothyroxine 175 mc g tablet RxNorm: 716715 1 Tablet(s) PO daily 03/09/2015 03/11/2015 Inactive recheck blood in 3 months- THIS IS CORRE CT DOSAGE levothyroxine 175 mc g tablet RxNorm: 647810 1 Tablet(s) PO daily 03/09/2015 03/08/2015 Inactive recheck blood in 3 months levothyroxine 150 mc g tablet RxNorm: 854190 1 Tablet(s) PO daily 03/09/2015 03/08/2015 Inactive recheck blood in 3 months lorazepam 1 mg tablet RxNorm: 275458 TAKE TWO TABLETS BY MOUTH AT BEDTIME AND ONE TABLET DAILY NEEDED 12/25/2014 01/22/2015 Inactive (Response to an electronic controlled substance refill request - RxReferenceNumber: [id number]) lorazepam 1 mg tablet RxNorm: 641776 Tablet(s) TAKE TWO TABLETS BY MOUTH EVER Y NIGHT AT BEDTIME AND TAKE ONE TABLET BY MOUTH DAILY NEEDED 12/23/2014 12/25/2014 Inactive (Response to an electronic controlled [place] refill [place] - RxReferenceNumber: [id number]) levothyroxine 150 mc g tablet RxNorm: 346030 1 Tablet(s) PO daily 12/12/2014 03/08/2015 Inactive recheck blood in 3 months Diflucan 150 mg tablet RxNorm: 115626 1 Tablet(s) PO every other day (start af ter finished with Cipro) 11/17/2014 08/23/2015 Inactive tramadol 50 mg tablet RxNorm: 090717 1 Tablet(s) PO Q4H as needed for pain 11/10/2014 12/17/2014 In active [SAVINGS FOR UNINSURED PATIENTS -- BIN:[id number], PCN: [id number], Group: [id number], ID# [id number], Process claim through [employer], for questions: . THIS IS NOT INSURANCE.] Cipro 500 mg tablet RxNorm: 191938 1 Tablet(s) PO BID 10/23/2014 10/29/2014 Inactive Flagyl 500 mg tablet RxNorm: 713720 1 Tablet(s) PO TID 10/23/2014 10/29/2014 Inactive Cipro 500 mg tablet RxNorm: 962229 1 Tablet(s) PO BID 10/23/2014 10/22/2014 Inactive Flagyl 500 mg tablet RxNorm: 008946 1 Tablet(s) PO TID 10/23/2014 10/22/2014 Inactive Diflucan 150 mg tablet RxNorm: 592480 1 Tablet(s) PO every other day (start af ter finished with Cipro) 10/23/2014 11/16/2014 Inactive lorazepam 1 mg tablet RxNorm: 306887 TAKE TWO TABLETS BY MOUTH EVERY NIGHT AT BEDTIME AND TAKE ONE TABLET BY MOUTH DAILY NEEDED 10/21/2014 10/21/2014 Inactive (Response to an electronic controlled [place] refill request - RxReferenceNumber: [id number]) lorazepam 1 mg tablet RxNorm: 926423 TAKE TWO TABLETS BY MOUTH EVERY NIGHT AT BEDTIME AND TAKE ONE TABLET BY MOUTH DAILY NEEDED 10/21/2014 11/18/2014 Inactive (Response to an electronic controlled [place] refill request - RxReferenceNumber: [id number]) lorazepam 1 mg tablet RxNorm: 596510 Tablet(s) TAKE TWO TABLETS BY MOUTH AT B EDTIME, ALSO TAKE ONE TABLET BY MOUTH DAILY NEEDED 10/13/2014 10/21/2014 Inactive (Res ponse to an electronic controlled substance refill request - RxReferenceNumber: [id number]) ProAir HFA 90 mcg/ac tuation aerosol inhaler RxNorm: 0646819 1-2 inhale INH QID a s needed ASTHMA 10/13/2014 12/26/2014 Inactive ProAir HFA 90 mcg/ac tuation aerosol inhaler RxNorm: 1426997 1-2 inhale INH QID a s needed ASTHMA 09/18/2014 10/12/2014 Inactive meloxicam 7.5 mg tablet RxNorm: 749188 1 Tablet(s) PO daily 09/18/2014 03/10/2015 Inactive [SAVINGS FOR UNINSURED PATIENTS -- BIN:0 24983, PCN: ASPROD1, Group: [id number], ID# [id number], Process claim through PayStand, for questions: . THIS IS NOT INSURANCE.] sulfamethoxazole 800 mg-trimethoprim 160 mg tablet RxNorm: 521445 1 Tablet(s) PO BID 09/18/2014 10/07/2014 Inactive levothyroxine 175 mc g tablet RxNorm: 542738 1 Tablet(s) PO daily 09/17/2014 12/11/2014 Inactive levothyroxine 175 mc g tablet RxNorm: 911406 1 Tablet(s) PO daily 09/17/2014 09/16/2014 Inactive lorazepam 1 mg tablet RxNorm: 046040 Tablet(s) TAKE TWO TABLETS BY MOUTH AT B EDTIME, ALSO TAKE ONE TABLET BY MOUTH DAILY NEEDED 09/12/2014 10/11/2014 Inactive (Res ponse to an electronic controlled substance refill request - RxReferenceNumber: [id number]) lorazepam 1 mg tablet RxNorm: 211533 TAKE TWO TABLETS BY MOUTH AT BEDTIME, AL SO TAKE ONE TABLET BY MOUTH DAILY NEEDED 09/08/2014 09/11/2014 Inactive (Res ponse to an electronic controlled substance refill request - RxReferenceNumber: [id number]) meloxicam 7.5 mg tablet RxNorm: 589387 1 Tablet(s) PO daily 09/01/2014 09/17/2014 Inactive [SAVINGS FOR UNINSURED PATIENTS -- BIN:0 30103, PCN: ASPROD1, Group: [id number], ID# [id number], Process claim through PayStand, for questions: . THIS IS NOT INSURANCE.] lisinopril 20 mg-hyd rochlorothiazide 25 mg tablet RxNorm: 529392 1 Tablet(s) PO daily 09/01/2014 12/29/2014 Inactive [SAVINGS FOR UNINSURED PATIENTS -- BIN:0 60469, PCN: ASPROD1, Group: AME08, ID# [id number], Process claim through MedImpact, for questions: . THIS IS NOT INSURANCE.] tramadol 50 mg tablet RxNorm: 578602 1 Tablet(s) PO Q4H as needed for pain 08/20/2014 11/07/2014 In active [SAVINGS FOR UNINSURED PATIENTS -- BIN:0 10090, PCN: ASPROD1, Group: AME08, ID# [id number], Process claim through MedImpact, for questions: . THIS IS NOT INSURANCE.] meloxicam 7.5 mg tablet RxNorm: 010890 1 Tablet(s) PO daily 08/14/2014 08/31/2014 Inactive [SAVINGS FOR UNINSURED PATIENTS -- BIN:0 22326, PCN: ASPROD1, Group: [id number], ID# [id number], Process claim through MedImpact, for questions: . THIS IS NOT INSURANCE.] lorazepam 1 mg tablet RxNorm: 879564 2 Tablet(s) PO QHS and 1 tab qd PRN 08/01/2014 09/08/2014 In active [SAVINGS FOR UNINSURED PATIENTS -- BIN:0 52774, PCN: ASPROD1, Group: [id number], ID# [id number], Process claim through MedImpact, for questions: . THIS IS NOT INSURANCE.] levothyroxine 200 mc g tablet RxNorm: 698065 1 Tablet(s) PO daily 07/31/2014 09/16/2014 Inactive [SAVINGS FOR UNINSURED PATIENTS -- BIN:0 77755, PCN: ASPROD1, Group: [id number], ID# [id number], Process claim through MedImpact, for questions: . THIS IS NOT INSURANCE.] lorazepam 1 mg tablet RxNorm: 063840 2 Tablet(s) PO QHS and 1 tab qd PRN No Start Date 07/31/2014 Inactive Phenergan VC-Codeine oral RxNorm: 469377 oral No S tart Date 11/26/2017 Inactive meloxicam 7.5 mg tablet RxNorm: 713850 1 Tablet(s) PO daily No Start Date 08/13/2014 Inactive lisinopril 20 mg-hyd rochlorothiazide 25 mg tablet RxNorm: 265347 1 Tablet(s) PO daily No Start Date 08/31/2014 Inactive levothyroxine 200 mc g tablet RxNorm: 060886 1 Tablet(s) PO daily No Start Date 07/30/2014 Inactive Diflucan 150 mg tablet RxNorm: 479776 1 Tablet(s) PO every other day No Start Date 10/22/2014 Inactive Zithromax Z-Linus 250 mg tablet RxNorm: 179762 1 Tablet(s) PO UD No Start Date 07/09/2015 Inactive tramadol 50 mg tablet RxNorm: 425639 1 Tablet(s) PO Q6 as needed No Start Date 08/19/2014 Inactive Medication Administered Medication Codes Instruc tions Start Date Status Kenalog 40 mg/mL suspension for injection RxNorm: 2826651 1Milliliter 06/14/2017 N o longer Active Kenalog 40 mg/mL suspension for injection RxNorm: 8634063 1Milliliter 03/27/2017 N o longer Active Kenalog 40 mg/mL suspension for injection RxNorm: 0785887 Milliliter 12/07/2016 No longer Active Kenalog 40 mg/mL suspension for injection RxNorm: 9933327 Milliliter 11/28/2016 No longer Active Immunizations Vaccine [...] 29.7 pg 03/21/2019 Cbc With Differential Ord2 [place]% 10.5 % 03/21/2019 Cbc With Differential Ord2 [...] 1.51 K/ul 03/21/2019 Cbc With Differential Ord2 [place] ABS# 0.6 K/ul 03/21/2019 Cbc With Differential Ord2 Eos ABS# 0.2 K/ul 03/21/2019 Cbc With Differential Ord2 Baso ABS# 0.0 K/ul 03/21/2019 Free T4 Zzw089 FREE T4 1.52 ng/dL 03/21/2019 Comp Metabolic Omt129 NA 141 mEq/L 03/21/2019 Comp Metabolic Hsa999 K 3.9 mEq/L 03/21/2019 Comp Metabolic Rcd956 CL 107 mEq/L 03/21/2019 Comp Metabolic Xxy515 CO2 26.0 mEq/L 03/21/2019 Comp Metabolic Xjp670 AN ION GAP 12 03/21/2019 Comp Metabolic Piu286 GL UCOSE 111 mg/dL 03/21/2019 Comp Metabolic Dhr781 Cr eat 0.8 mg/dL 03/21/2019 Comp Metabolic Msk196 eG FR 77 ml/min/1.73m2 03/21 Comp Metabolic Glj538 BUN 14 mg/dL 03/21/2019 Comp Metabolic Yql194 B/ C Ratio 18.2 Ratio 03/21/2019 Comp Metabolic Fvw275 CA LCIUM 9.2 mg/dL 03/21/2019 Comp Metabolic Ksw896 AL K PHOS 68 U/L 03/21/2019 Comp Metabolic Zjd505 T(SGOT) 11 U/L 03/21/2019 Comp Metabolic Qho567 AL T(SGPT) 8 U/L 03/21/2019 Comp Metabolic Kjk126 BI LI T 0.5 mg/dL 03/21/2019 Comp Metabolic Ahy204 AL BUMIN 4.1 g/dL 03/21/2019 Comp Metabolic Ztd113 TP RO 6.3 g/dL 03/21/2019 Comp Metabolic Ztf067 GL OB 2.2 g/dL 03/21/2019 Comp Metabolic Peo596 A/ G Ratio 1.9 Ratio 03/21/2019 Comp Metabolic Vmk452 Os mo 282 mOsmo 03/21/2019 Tsh Ord6 TSH (3rd IS) 1.49 uIU/mL 01/21/2019 Free T4 Adr168 FREE T4 1.15 ng/dL 01/21/2019 Lipid Ord30 CHOL 231 mg/dL 10/24/2018 Lipid Ord30 HDL 56.0 mg/dl 10/24/2018 Lipid Ord30 TRIG 71 mg/dL 10/24/2018 Lipid Ord30 LDL 161 mg/dL 10/24/2018 Lipid Ord30 C/HDL 4.1 Ratio 10/24/2018 Comp Metabolic Nnj613 NA 141 mEq/L 10/24/2018 Comp Metabolic Ylx231 K 3.7 mEq/L 10/24/2018 Comp Metabolic Gbz626 CL 103 mEq/L 10/24/2018 Comp Metabolic Mrr142 CO2 30.0 mEq/L 10/24/2018 Comp Metabolic Vrl414 AN ION GAP 12 10/24/2018 Comp Metabolic Bcw418 GL UCOSE 98 mg/dL 10/24/2018 Comp Metabolic Ocu902 Cr eat 0.8 mg/dL 10/24/2018 Comp Metabolic Uqk137 eG FR 71 ml/min/1.73m2 10/24 Comp Metabolic Qfh005 BUN 12 mg/dL 10/24/2018 Comp Metabolic Yan159 B/ C Ratio 14.5 Ratio 10/24/2018 Comp Metabolic Huk111 CA LCIUM 9.2 mg/dL 10/24/2018 Comp Metabolic Qdp021 AL K PHOS 76 U/L 10/24/2018 Comp Metabolic Imp136 T(SGOT) 12 U/L 10/24/2018 Comp Metabolic Sir574 AL T(SGPT) 9 U/L 10/24/2018 Comp Metabolic Agf364 BI LI T 0.5 mg/dL 10/24/2018 Comp Metabolic Zmt318 AL BUMIN 4.3 g/dL 10/24/2018 Comp Metabolic Czf631 TP RO 6.5 g/dL 10/24/2018 Comp Metabolic Iwe442 GL OB 2.2 g/dL 10/24/2018 Comp Metabolic Hbh579 A/ G Ratio 2.0 Ratio 10/24/2018 Comp Metabolic Wea749 Os mo 281 mOsmo 10/24/2018 Free T4 Ntk063 FREE T4 0.76 ng/dL 10/24/2018 Cbc With [...] 30.5 pg 10/24/2018 Cbc With Differential Ord2 [place]% 8.4 % 10/24/2018 Cbc With Differential Ord2 [...] 1.71 K/ul 10/24/2018 Cbc With Differential Ord2 [place] ABS# 0.4 K/ul 10/24/2018 Cbc With Differential [...] 30.0 pg 04/04/2018 Cbc With Differential Ord2 [place]% 10.9 % 04/04/2018 Cbc With Differential Ord2 [...] 1.42 K/ul 04/04/2018 Cbc With Differential Ord2 [place] ABS# 0.6 K/ul 04/04/2018 Cbc With Differential Ord2 Eos ABS# 0.1 K/ul 04/04/2018 Cbc With Differential Ord2 Baso ABS# 0.0 K/ul 04/04/2018 Free T4 Kpr333 FREE T4 1.25 ng/dL 04/04/2018 Tsh Ord6 [...] 30.2 pg 11/28/2017 Cbc With Differential Ord2 [place]% 10.1 % 11/28/2017 Cbc With Differential Ord2 [...] 1.33 K/ul 11/28/2017 Cbc With Differential Ord2 [place] ABS# 0.5 K/ul 11/28/2017 Cbc With Differential Ord2 Eos ABS# 0.1 K/ul 11/28/2017 Cbc With Differential Ord2 Baso ABS# 0.0 K/ul 11/28/2017 Free T4 Doa723 FREE T4 1.43 ng/dL 11/28/2017 Lipid Ord30 CHOL 186 mg/dL 11/28/2017 Lipid Ord30 HDL 54.0 mg/dl 11/28/2017 Lipid Ord30 TRIG 59 mg/dL 11/28/2017 Lipid Ord30 LDL 120 mg/dL 11/28/2017 Lipid Ord30 C/HDL 3.4 Ratio 11/28/2017 Comp Metabolic Prk410 NA 141 mEq/L 11/28/2017 Comp Metabolic Bzw399 K 4.0 mEq/L 11/28/2017 Comp Metabolic Xye403 CL 105 mEq/L 11/28/2017 Comp Metabolic Sgf470 CO2 29.0 mEq/L 11/28/2017 Comp Metabolic Msc344 AN ION GAP 11 11/28/2017 Comp Metabolic Fsi307 GL UCOSE 91 mg/dL 11/28/2017 Comp Metabolic Fva026 Cr eat 0.8 mg/dL 11/28/2017 Comp Metabolic Php315 eG FR 74 ml/min/1.73m2 11/28 Comp Metabolic Afs132 BUN 15 mg/dL 11/28/2017 Comp Metabolic Bzv473 B/ C Ratio 18.8 Ratio 11/28/2017 Comp Metabolic Cla562 CA LCIUM 8.6 mg/dL 11/28/2017 Comp Metabolic Fec198 AL K PHOS 76 U/L 11/28/2017 Comp Metabolic Ncr216 T(SGOT) 10 U/L 11/28/2017 Comp Metabolic Yoq658 AL T(SGPT) 8 U/L 11/28/2017 Comp Metabolic Dwf086 BI LI T 0.5 mg/dL 11/28/2017 Comp Metabolic Hqs644 AL BUMIN 4.0 g/dL 11/28/2017 Comp Metabolic Fni880 TP RO 6.1 g/dL 11/28/2017 Comp Metabolic Gqg258 GL OB 2.1 g/dL 11/28/2017 Comp Metabolic Brv124 A/ G Ratio 1.9 Ratio 11/28/2017 Comp Metabolic Epg212 Os mo 282 mOsmo 11/28/2017 Tsh Ord6 TSH (3rd IS) 3.31 uIU/mL 11/28/2017 Tsh Ord6 hTSH II 1.45 uIU/mL 03/27/2017 Free T4 Dcq155 FREE T4 1.23 ng/dL 03/27/2017 Comp Metabolic Kbw709 NA 140 mEq/L 09/28/2016 Comp Metabolic Wgl180 K 3.9 mEq/L 09/28/2016 Comp Metabolic Kse670 CL 104 mEq/L 09/28/2016 Comp Metabolic Xtg787 CO2 28.0 mEq/L 09/28/2016 Comp Metabolic Ifo990 AN ION GAP 12 09/28/2016 Comp Metabolic Qfp853 GL UCOSE 97 mg/dL 09/28/2016 Comp Metabolic Rbq108 Cr eat 0.8 mg/dL 09/28/2016 Comp Metabolic Seh151 eG FR 79 ml/min/1.73m2 09/28 Comp Metabolic Pps438 BUN 13 mg/dL 09/28/2016 Comp Metabolic Dnp324 B/ C Ratio 17.1 Ratio 09/28/2016 Comp Metabolic Ubg603 CA LCIUM 8.9 mg/dL 09/28/2016 Comp Metabolic Pdr563 AL K PHOS 100 U/L 09/28/2016 Comp Metabolic Bup213 T(SGOT) 12 U/L 09/28/2016 Comp Metabolic Rlx299 AL T(SGPT) 9 U/L 09/28/2016 Comp Metabolic Nkv496 BI LI T 0.4 mg/dL 09/28/2016 Comp Metabolic Tmb408 AL BUMIN 4.1 g/dL 09/28/2016 Comp Metabolic Hdy134 TP RO 6.6 g/dL 09/28/2016 Comp Metabolic Tfq771 GL OB 2.5 g/dL 09/28/2016 Comp Metabolic Cpw367 A/ G Ratio 1.6 Ratio 09/28/2016 Comp Metabolic Wlm158 Os mo 279 mOsmo 09/28/2016 Lipid Ord30 [...] 28.8 pg 09/28/2016 Cbc With Differential Ord2 [place]% 7.2 % 09/28/2016 Cbc With Differential Ord2 [...] 1.41 K/ul 09/28/2016 Cbc With Differential Ord2 [place] ABS# 0.5 K/ul 09/28/2016 Cbc With Differential Ord2 Eos ABS# 0.2 K/ul 09/28/2016 Cbc With Differential Ord2 Baso ABS# 0.0 K/ul 09/28/2016 Free T4 Krv619 FREE T4 1.43 ng/dL 09/28/2016 Tsh Ord6 hTSH II 0.52 uIU/mL 09/28/2016 Tsh Ord6 hTSH II 0.47 uIU/mL 06/16/2016 Comp Metabolic Elb608 NA 139 mEq/L 06/16/2016 Comp Metabolic Tdd844 K 4.3 mEq/L 06/16/2016 Comp Metabolic Pba650 CL 105 mEq/L 06/16/2016 Comp Metabolic Dne093 CO2 30.0 mEq/L 06/16/2016 Comp Metabolic Lon420 AN ION GAP 8 06/16/2016 Comp Metabolic Btt775 GL UCOSE 90 mg/dL 06/16/2016 Comp Metabolic Ayj648 Cr eat 0.7 mg/dL 06/16/2016 Comp Metabolic Rqo067 eG FR 91 ml/min/1.73m2 06/16 Comp Metabolic Nup808 BUN 15 mg/dL 06/16/2016 Comp Metabolic Asf346 B/ C Ratio 22.4 Ratio 06/16/2016 Comp Metabolic Qlm367 CA LCIUM 8.8 mg/dL 06/16/2016 Comp Metabolic Cmw888 AL K PHOS 79 U/L 06/16/2016 Comp Metabolic Ood095 T(SGOT) 13 U/L 06/16/2016 Comp Metabolic Mvo857 AL T(SGPT) 11 U/L 06/16/2016 Comp Metabolic Ilt801 BI LI T 0.5 mg/dL 06/16/2016 Comp Metabolic Xkq571 AL BUMIN 3.9 g/dL 06/16/2016 Comp Metabolic Gqd092 TP RO 6.1 g/dL 06/16/2016 Comp Metabolic Udn722 GL OB 2.2 g/dL 06/16/2016 Comp Metabolic Fgf056 A/ G Ratio 1.8 Ratio 06/16/2016 Comp Metabolic Ggk675 Os mo 278 mOsmo 06/16/2016 Lipid Ord30 [...] 28.9 pg 06/16/2016 Cbc With Differential Ord2 [place]% 8.1 % 06/16/2016 Cbc With Differential Ord2 [...] 1.70 K/ul 06/16/2016 Cbc With Differential Ord2 [place] ABS# 0.4 K/ul 06/16/2016 Cbc With Differential Ord2 Eos ABS# 0.2 K/ul 06/16/2016 Cbc With Differential Ord2 Baso ABS# 0.0 K/ul 06/16/2016 Free T4 Tgo095 FREE T4 1.42 ng/dL 06/16/2016 Free T4 Rvf348 FREE T4 1.34 ng/dL 03/04/2016 Tsh Ord6 hTSH II 0.56 uIU/mL 03/04/2016 Tsh Ord6 hTSH II 0.98 uIU/mL 01/27/2016 Free T4 Bqg742 FREE T4 1.19 ng/dL 01/27/2016 Free T4 Cjl274 FREE T4 1.69 ng/dL 11/23/2015 Tsh Ord6 hTSH II 0.08 uIU/mL 11/23/2015 Lipid Ord30 CHOL 185 mg/dL 08/21/2015 Lipid Ord30 HDL 50.0 mg/dl 08/21/2015 Lipid Ord30 TRIG 88 mg/dL 08/21/2015 Lipid Ord30 LDL 117 mg/dL 08/21/2015 Lipid Ord30 C/HDL 3.7 Ratio 08/21/2015 Comp Metabolic Fwx001 NA 139 mEq/L 08/21/2015 Comp Metabolic Wqj062 K 4.3 mEq/L 08/21/2015 Comp Metabolic Jps736 CL 102 mEq/L 08/21/2015 Comp Metabolic Hox883 CO2 27.0 mEq/L 08/21/2015 Comp Metabolic Lmd020 AN ION GAP 14 08/21/2015 Comp Metabolic Wle174 GL UCOSE 89 mg/dL 08/21/2015 Comp Metabolic Gdw101 Cr eat 0.7 mg/dL 08/21/2015 Comp Metabolic Ehp469 eG FR 85 ml/min/1.73m2 08/21 Comp Metabolic Obu649 BUN 14 mg/dL 08/21/2015 Comp Metabolic Uaq326 B/ C Ratio 19.7 Ratio 08/21/2015 Comp Metabolic Ayn201 CA LCIUM 9.5 mg/dL 08/21/2015 Comp Metabolic Jth373 AL K PHOS 123 U/L 08/21/2015 Comp Metabolic Eaq947 T(SGOT) 13 U/L 08/21/2015 Comp Metabolic Ich891 AL T(SGPT) 10 U/L 08/21/2015 Comp Metabolic Zon805 BI LI T 0.4 mg/dL 08/21/2015 Comp Metabolic Mjx343 AL BUMIN 4.1 g/dL 08/21/2015 Comp Metabolic Vwe220 TP RO 6.8 g/dL 08/21/2015 Comp Metabolic Akc721 GL OB 2.7 g/dL 08/21/2015 Comp Metabolic Kuy977 A/ G Ratio 1.5 Ratio 08/21/2015 Comp Metabolic Hbg465 Os mo 277 mOsmo 08/21/2015 Free T4 Hca649 FREE T4 1.78 ng/dL 08/21/2015 Tsh Ord6 [...] Ord2 RDW 13.9 % 08/21/2015 Quick Strep Dke8158 Quic k Strep Negative 07/08/2015 Tsh Ord6 hTSH II 0.04 uIU/mL 05/20/2015 Free T4 Qix563 FREE T4 1.50 ng/dL 05/20/2015 Review of [...] Cardiology Integument inspection/palpation Location: back 03/21/2019 marshal sharmaine Full Exam - General 1994 Constitutional general [...] Procedure Codes Date DESTRUCT PREMALG LESION CPT-4: 75423 01/19/2018 URINALYSIS NONAUTO W /O SCOPE CPT-4: 71083 09/12/2017 TRIAMCINOLONE ACET I [place] NOS CPT-4: J3301 06/14/2017 THER/PROPH/DIAG INJ SC/IM CPT-4: 78761 06/14/2017 PRESCRIP TRANSMIT A ERX SY CPT-4: G8553 06/14/2017 TRIAMCINOLONE ACET I [place] NOS CPT-4: J3301 03/27/2017 THER/PROPH/DIAG INJ SC/IM CPT-4: 39440 12/07/2016 TRIAMCINOLONE ACET I [place] NOS CPT-4: J3301 12/07/2016 THER/PROPH/DIAG INJ SC/IM CPT-4: 40619 11/28/2016 TRIAMCINOLONE ACET I [place] NOS CPT-4: J3301 11/28/2016 Vital Signs Date Vital 04/29/2019 Blood Pressure 1: 144/60 Code: 8480-6 BMI: 36.0 Code: 73166-8 Heart Rate 1: 73 bpm Height: 5'6" SpO2: 98% Weight: 223 lbs 03/21/2019 Blood Pressure 1: 132/64 Code: 8480-6 BMI: 36.2 Code: 35810-6 Heart Rate 1: 76 bpm Height: 5'6" SpO2: 94% Weight: 224 lbs 01/22/2019 Blood Pressure 1: 132/66 Code: 8480-6 BMI: 37.1 Code: 51934-3 Heart Rate 1: 73 bpm Height: 5'6" SpO2: 96% Weight: 230 lbs 11/21/2018 Blood Pressure 1: 120/64 Code: 8480-6 Heart Rate 1: 64 bpm 10/30/2018 Blood Pressure 1: 144/70 Code: 8480-6 BMI: 37.0 Code: 23148-7 Heart Rate 1: 76 bpm Height: 5'6" SpO2: 96% Weight: 229 lbs 06/28/2018 Blood Pressure 1: 110/66 Code: 8480-6 BMI: 37.1 Code: 84147-2 Heart Rate 1: 73 bpm Height: 5'6" SpO2: 98% Weight: 230 lbs 04/04/2018 Blood Pressure 1: 128/76 Code: 8480-6 BMI: 37.9 Code: 94983-7 Heart Rate 1: 86 bpm Height: 5'6" SpO2: 98% Weight: 235 lbs 01/19/2018 Blood Pressure 1: 122/68 Code: 8480-6 Heart Rate 1: 78 bpm Height: 5'6" SpO2: 97% Weight: 01/05/2018 Blood Pressure 1: 138/78 Code: 8480-6 BMI: 38.4 Code: 54473-2 Heart Rate 1: 73 bpm Height: 5'6" SpO2: 95% Weight: 238 lbs 11/29/2017 Blood Pressure 1: 138/80 Code: 8480-6 BMI: 38.7 Code: 55600-4 Heart Rate 1: 71 bpm Height: 5'6" SpO2: 97% Weight: 240 lbs 10/25/2017 Blood Pressure 1: 136/72 Code: 8480-6 BMI: 38.7 Code: 99901-4 Heart Rate 1: 92 bpm Height: 5'6" SpO2: 98% Weight: 240 lbs 09/12/2017 Blood Pressure 1: 132/68 Code: 8480-6 BMI: 39.7 Code: 66190-3 Heart Rate 1: 76 bpm Height: 5'6" SpO2: 98% Weight: 246 lbs 06/14/2017 Blood Pressure 1: 130/80 Code: 8480-6 BMI: 39.4 Code: 22065-1 Heart Rate 1: 73 bpm Height: 5'6" SpO2: 95% Temperature: 36.9 (C ) / 98.5 (F) Weight: 244 lbs 05/10/2017 Blood Pressure 1: 128/68 Code: 8480-6 BMI: 38.7 Code: 93742-1 Heart Rate 1: 69 bpm Height: 5'6" SpO2: 97% Weight: 240 lbs 04/19/2017 Blood Pressure 1: 138/74 Code: 8480-6 BMI: 38.7 Code: 05730-1 Heart Rate 1: 73 bpm Height: 5'6" SpO2: 96% Weight: 240 lbs 03/27/2017 Blood Pressure 1: 142/84 Code: 8480-6 BMI: 38.7 Code: 27641-7 Heart Rate 1: 69 bpm Height: 5'6" SpO2: 97% Weight: 240 lbs 01/26/2017 Blood Pressure 1: 136/68 Code: 8480-6 Heart Rate 1: 64 bpm Height: 5'6" SpO2: 96% Weight: 12/07/2016 Blood Pressure 1: 130/72 Code: 8480-6 BMI: 39.7 Code: 00828-0 Heart Rate 1: 73 bpm Height: 5'6" SpO2: 93% Temperature: 36.8 (C ) / 98.3 (F) Weight: 246 lbs 11/28/2016 Blood Pressure 1: 138/60 Code: 8480-6 BMI: 39.7 Code: 61600-4 Heart Rate 1: 81 bpm Height: 5'6" SpO2: 97% Weight: 246 lbs 11/15/2016 Blood Pressure 1: 134/78 Code: 8480-6 BMI: 39.7 Code: 28488-3 Heart Rate 1: 75 bpm Height: 5'6" SpO2: 93% Temperature: 36.8 (C ) / 98.2 (F) Weight: 246 lbs 10/17/2016 Blood Pressure 1: 120/64 Code: 8480-6 BMI: 38.4 Code: 66650-7 Heart Rate 1: 69 bpm Height: 5'6" SpO2: 98% Temperature: 37.2 (C ) / 98.9 (F) Weight: 238 lbs 09/28/2016 Blood Pressure 1: 158/76 Code: 8480-6 BMI: 39.4 Code: 01333-2 Heart Rate 1: 71 bpm Height: 5'6" SpO2: 97% Weight: 244 lbs 06/29/2016 Blood Pressure 1: 124/60 Code: 8480-6 BMI: 38.7 Code: 05906-4 Heart Rate 1: 71 bpm Height: 5'6" SpO2: 98% Weight: 240 lbs 06/01/2016 Blood Pressure 1: 120/62 Code: 8480-6 BMI: 38.6 Code: 43713-0 Heart Rate 1: 76 bpm Height: 5'6" SpO2: 98% Weight: 239 lbs 05/11/2016 Blood Pressure 1: 140/80 Code: 8480-6 BMI: 38.1 Code: 35738-7 Heart Rate 1: 88 bpm Height: 5'6" SpO2: 97% Weight: 236 lbs 04/05/2016 Blood Pressure 1: 142/80 Code: 8480-6 BMI: 38.4 Code: 20319-1 Heart Rate 1: 96 bpm Height: 5'6" SpO2: 98% Weight: 238 lbs 04/01/2016 Blood Pressure 1: 136/88 Code: 8480-6 BMI: 39.2 Code: 70720-1 Heart Rate 1: 86 bpm Height: 5'6" SpO2: 96% Weight: 243 lbs 01/26/2016 Blood Pressure 1: 124/76 Code: 8480-6 BMI: 39.2 Code: 31677-8 Heart Rate 1: 76 bpm Height: 5'6" SpO2: 97% Weight: 243 lbs 12/21/2015 Blood Pressure 1: 120/64 Code: 8480-6 BMI: 37.0 Code: 18254-4 Heart Rate 1: 98 bpm Height: 5'6" SpO2: 97% Weight: 229 lbs 10/12/2015 Blood Pressure 1: 150/64 Code: 8480-6 BMI: 37.4 Code: 21271-1 Heart Rate 1: 70 bpm Height: 5'6" SpO2: 94% Weight: 232 lbs 08/24/2015 Blood Pressure 1: 128/74 Code: 8480-6 BMI: 36.8 Code: 66677-6 Heart Rate 1: 88 bpm Height: 5'6" SpO2: 94% Temperature: 36.8 (C ) / 98.3 (F) Weight: 228 lbs 06/01/2015 Blood Pressure 1: 134/68 Code: 8480-6 BMI: 36.0 Code: 41947-4 Heart Rate 1: 70 bpm Height: 5'6" SpO2: 98% Weight: 223 lbs 05/21/2015 Blood Pressure 1: 126/72 Code: 8480-6 BMI: 35.2 Code: 44188-2 Heart Rate 1: 63 bpm Height: 5'6" SpO2: 95% Weight: 218 lbs 5 oz 03/26/2015 Blood Pressure 1: 140/62 Code: 8480-6 BMI: 35.3 Code: 72695-2 Heart Rate 1: 68 bpm Height: 5'6" Weight: 219 lbs 03/11/2015 Blood Pressure 1: 130/80 Code: 8480-6 BMI: 34.9 Code: 39662-8 Heart Rate 1: 76 bpm Height: 5'6" Temperature: 37.1 (C ) / 98.7 (F) Weight: 216 lbs 12/11/2014 Blood Pressure 1: 134/62 Code: 8480-6 BMI: 34.2 Code: 09348-6 Heart Rate 1: 72 bpm Height: 5'6" Weight: 212 lbs 09/18/2014 Blood Pressure 1: 148/80 Code: 8480-6 BMI: 34.7 Code: 97580-5 Heart Rate 1: 68 bpm Height: 5'6" Weight: 215 lbs 07/31/2014 Blood Pressure 1: 124/72 Code: 8480-6 BMI: 36.2 Code: 93530-1 Heart Rate 1: 68 bpm Height: 5'6" [...] Severity mi ld 09/28/2016 None hypothyroid 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 09/28/2016 None hypothyroid Onset and Resolution [...] Severity mi ld 06/01/2016 None hypothyroid 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 06/01/2016 None hypothyroid Onset and Resolution [...] and Resolution resolved 04/05/2016 None hypothyroid 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 P ATIENT, LEVEL IV Diagnosis: Hypothyroidism, unspecified[ICD10: E03.9] Diagnosis: Changes in skin texture[ICD10: R23.4] Diagnosis: Mild intermittent asthma, uncomplicated[ICD10: J45.20] Lynn Finn MD, [facility] CPT-4: 22686 03/21/2019 ([id number]) 13937 EST. P ATIENT, LEVEL IV Diagnosis: Mild intermittent asthma, uncomplicated[ICD10: J45.20] Diagnosis: Hypothyroidism, unspecified[ICD10: E03.9] Diagnosis: Low back pain[ICD10: M54.5] Lynn Finn MD, [facility] CPT- 4: 87859 01/22/2019 ([id number]) Miscellsuyapa s no charge Diagnosis: Essential (primary) hypertension[ICD10: I10] Damari Finn MD, [facility] CPT-4: 74066 11/21/2018 ([id number]) [id number] EST. P ATIENT, LEVEL IV Diagnosis: Essential (primary) hypertension[ICD10: I10] Diagnosis: Hypothyroidism, unspecified[ICD10: E03.9] Diagnosis: Low back pain[ICD10: M54.5] Lynn Finn MD, [facility] CPT- 4: 38748 10/30/2018 ([id number]) 73813 EST. P ATIENT, LEVEL III Diagnosis: Acute recurrent maxillary sinusitis[ICD10: J01.01] Diagnosis: Other mucopurulent conjunctivitis, left eye[ICD10: H10.022] Diagnosis: Other allergic rhinitis[ICD10: J30.89] Lynn Finn MD, [facility] CPT-4: 90879 06/28/2018 [id number] EST. PATIENT, LEVEL IV Diagnosis: Essential (primary) hypertension[ICD10: I10] Diagnosis: Other specified hypothyroidism[ICD10: E03.8] Diagnosis: Other specified anemias[ICD10: D64.89] Diagnosis: Localized edema[ICD10: R60.0] Mishel Finn MD, [facility] CPT-4: 94788 04/04/2018 ([id number]) 28652 EST. P ATIENT, LEVEL III Diagnosis: Mild persistent asthma, uncomplicated[ICD10: J45.30] Diagnosis: Actinic keratosis[ICD10: L57.0] Lynn Finn MD, [facility] CPT- 4: 58661 01/05/2018 ([id number]) Miscellaneou s no charge Diagnosis: Essential (primary) hypertension[ICD10: I10] Damari Finn MD, [facility] CPT-4: 46581 12/12/2017 03466 EST. PATIENT, LEVEL III Diagnosis: Essential (primary) hypertension[ICD10: I10] Diagnosis: Atrophy of thyroid (acquired)[ICD10: E03.4] Diagnosis: Low back pain[ICD10: M54.5] Mishel Finn MD, [facility] CPT-4: 15754 11/29/2017 73568 EST. PATIENT, LEVEL III Diagnosis: Pain in left hip[ICD10: M25.552] Mishel Finn MD, [facility] CPT-4: 40500 10/25/2017 [id number] EST. PATIENT, LEVEL IV Diagnosis: Localized edema[ICD10: R60.0] Mishel Finn MD, [facility] CPT-4: 87138 09/12/2017 93763 EST. PATIENT, LEVEL IV Diagnosis: Mild persistent asthma with (acute) exacerbation[ICD10: J45.31] Mishel Finn MD, [facility] CPT-4: 79126 06/14/2017 [id number] EST. PATIENT, LEVEL III Diagnosis: Localized edema[ICD10: R60.0] Diagnosis: Mild persistent asthma, uncomplicated[ICD10: J45.30] Mishel Finn MD, [facility] CPT-4: 92707 05/10/2017 97915 EST. PATIENT, LEVEL III Diagnosis: Mild persistent asthma with (acute) exacerbation[ICD10: J45.31] Mishel Finn MD, [facility] CPT-4: 92010 04/19/2017 ([id number]) 69062 EST. P ATIENT, LEVEL IV Diagnosis: Contusion of left wrist, initial encounter[ICD10: S60.212A] Diagnosis: Hypothyroidism, unspecified[ICD10: E03.9] Diagnosis: Mild persistent asthma with (acute) exacerbation[ICD10: J45.31] Diagnosis: Low back pain[ICD10: M54.5] Lynn Finn MD, [facility] CPT- 4: 79845 03/27/2017 ([id number]) 94482 EST. P ATIENT, LEVEL IV Diagnosis: Essential (primary) hypertension[ICD10: I10] Diagnosis: Atrophy of thyroid (acquired)[ICD10: E03.4] Diagnosis: Low back pain[ICD10: M54.5] Damari Finn MD, [facility] CPT-4: 98291 01/26/2017 60842 EST. PATIENT, LEVEL III Diagnosis: Other allergic rhinitis[ICD10: J30.89] Diagnosis: Mild persistent asthma with (acute) exacerbation[ICD10: J45.31] Mishel Finn MD, [facility] CPT-4: 53428 12/07/2016 47353 EST. PATIENT, LEVEL III Diagnosis: Mild persistent asthma with (acute) exacerbation[ICD10: J45.31] [facility] CPT-4: 35548 11/28/2016 11300 EST. PATIENT, LEVEL III Diagnosis: Mild persistent asthma with (acute) exacerbation[ICD10: J45.31] Diagnosis: Acute bronchitis due to other specified organisms[ICD10: J20.8] Mishel Finn MD, [facility] CPT-4: 80886 11/15/2016 58559 EST. PATIENT, LEVEL IV Diagnosis: Other acute sinusitis[ICD10: J01.80] Diagnosis: Other allergic rhinitis[ICD10: J30.89] Diagnosis: Mild persistent asthma with (acute) exacerbation[ICD10: J45.31] Mishel Finn MD, [facility] CPT-4: 02757 10/17/2016 ([id number]) 32473 EST. P ATIENT, LEVEL IV Diagnosis: Essential (primary) hypertension[ICD10: I10] Diagnosis: Low back pain[ICD10: M54.5] Damari Finn MD, [facility] CPT-4: 96161 09/28/2016 60432 EST. PATIENT, LEVEL III Diagnosis: Tinea barbae and tinea capitis[ICD10: B35.0] Diagnosis: Other specified hypothyroidism[ICD10: E03.8] Mishel Finn MD, [facility] CPT-4: 17971 06/29/2016 ([id number]) 56620 EST. P ATIENT, LEVEL IV Diagnosis: Essential (primary) hypertension[ICD10: I10] Diagnosis: Atrophy of thyroid (acquired)[ICD10: E03.4] Diagnosis: Rash and other nonspecific skin eruption[ICD10: R21] Damari Finn MD, [facility] CPT-4: 15461 06/01/2016 ([id number]) 31832 EST. P ATIENT, LEVEL III Diagnosis: Cellulitis of groin[ICD10: L03.314] Damari Finn MD, [facility] CPT- 4: 85636 05/11/2016 ([id number]) 43562 EST. P ATIENT, LEVEL IV Diagnosis: Hypothyroidism, unspecified[ICD10: E03.9] Diagnosis: Candidiasis of vulva and vagina[ICD10: B37.3] Diagnosis: Essential (primary) hypertension[ICD10: I10] Diagnosis: Low back pain[ICD10: M54.5] Lynn Finn MD, [facility] CPT- 4: 68223 04/05/2016 54233 EST. PATIENT, LEVEL III Diagnosis: Other acute sinusitis[ICD10: J01.80] Diagnosis: Rash and other nonspecific skin eruption[ICD10: R21] Mishel Finn MD, [facility] CPT-4: 60243 04/01/2016 ([id number]) 80987 EST. P ATIENT, LEVEL IV Diagnosis: Essential (primary) hypertension[ICD10: I10] Diagnosis: Hypothyroidism, unspecified[ICD10: E03.9] Diagnosis: Low back pain[ICD10: M54.5] Diagnosis: Other obesity due to excess calories[ICD10: E66.09] Lynn Finn MD, [facility] CPT-4: 20549 01/26/2016 92479 EST. PATIENT, LEVEL IV Diagnosis: Essential (primary) hypertension[ICD10: I10] Diagnosis: Cutaneous abscess of face[ICD10: L02.01] Mishel Finn MD, [facility] CPT-4: 01287 12/21/2015 ([id number]) 66440 EST. P ATIENT, LEVEL III Diagnosis: Cutaneous abscess of groin[ICD10: L02.214] Diagnosis: Hypothyroidism, unspecified[ICD10: E03.9] Lynn Finn MD, [facility] CPT-4: 61564 10/12/2015 ([id number]) 83390 EST. P ATIENT, LEVEL III Diagnosis: Essential (primary) hypertension[ICD10: I10] Diagnosis: Hypothyroidism, unspecified[ICD10: E03.9] Diagnosis: Allergic rhinitis, unspecified[ICD10: J30.9] Lynn Finn MD, [facility] CPT-4: 41281 08/24/2015 ([id number]) 86015 EST. P ATIENT, LEVEL III Diagnosis: Skin infection[ICD9: 686.9] Damari Finn MD, [facility] CPT-4: 02539 06/01/2015 ([id number]) 44492 EST. P ATIENT, LEVEL III Diagnosis: Hypothyroidism[ICD9: 244.9] Diagnosis: ESSENTIAL HYPERTENSION[ICD9: 401.9] Damari Finn MD, [facility] CPT- 4: 81903 05/21/2015 ([id number]) 35271 EST. P ATIENT, LEVEL III Diagnosis: Hypothyroidism[ICD9: 244.9] Diagnosis: Fingernail abnormalities[ICD9: 703.8] Lynn Finn MD, [facility] CPT-4: 10606 03/26/2015 ([id number]) 69513 EST. P ATIENT, LEVEL II Diagnosis: Hypothyroidism[ICD9: 244.9] [facility] CPT-4: 67363 03/11/2015 ([id number]) 30962 EST. P ATIENT, LEVEL IV Diagnosis: ESSENTIAL HYPERTENSION[ICD9: 401.9] Diagnosis: Low back pain[ICD9: 724.2] Diagnosis: Hypothyroidism[ICD9: 244.9] [facility] CPT-4: 65644 12/11/2014 ([id number]) 03965 EST. P ATIENT, LEVEL IV Diagnosis: Hidradenitis suppurativa[ICD9: 705.83] Diagnosis: ESSENTIAL HYPERTENSION[ICD9: 401.9] Diagnosis: Low back pain[ICD9: 724.2] Diagnosis: Lumbar spinal stenosis[ICD9: 724.02] Diagnosis: HYPOTHYROIDISM[ICD9: 244.9] [facility] CPT-4: 29366 09/18/2014 Office outpatient ne w 30 minutes Diagnosis: ESSENTIAL HYPERTENSION[ICD9: 401.9] Diagnosis: Hypothyroidism[ICD9: 244.9] Diagnosis: Low back pain[ICD9: 724.2] [facility] CPT- 4: 60593 07/31/2014 Plan of Care Planned Activity Notes [...] or concerns. 04/29/2019 Appointment: Mishel Balderrama WPtel: [address] [place], [place] [address] (30 min) Complex 04/29/2019 Patient Education: Patient Medication Summary Completed 04/29/2019 Appointment: [phone] [facility] Complex 04/23/2019 Visit Plan: Hypothyroidism -patient is having symptoms of over supplementation -check labs today Skin changes-patient used to see Dr Solitario but hasn't see anyone recently -recommend skin check with Dr Yamel boyd- stable- no change in current treatment 03/21/2019 Appointment: Lynn Arenas [facility]el[phone] (30 min) Complex 03/21/2019 Patient Education: Patient [...] medical practice. 01/22/2019 Appointment: Lynn Arenas WPtel[phone] [place] (30 min) Complex 01/22/2019 Patient Education: [...] indicated 10/30/2018 Appointment: Lynn Arenas WPtel: [phone] [phone] (30 min) Complex 10/30/2018 Patient Education: Patient Medication Summary Completed 10/30/2018 Patient Education: Hypertension Completed 10/30/2018 Patient Education: Back Pain Completed 10/30/2018 Appointment: Lynn Arenas WPtel: [phone] [phone] [place] (30 min) Complex 10/26/2018 Patient Education: Patient Medication Summary Completed 10/23/2018 Appointment: [phone] [place] (15 min) Moderate 10/19/2018 [facility]ment[phone] [place] ([facility] Moderate 09/19/2018 Visit [...] times daily. 06/28/2018 Appointment: Lynn Arenas WPtel: [address] [place], [place] [phone] (30 min) [facility] 06/28/2018 Patient Education: Patient Medication Summary Completed [...] to monitor. 04/04/2018 Appointment: Mis[facility] Balderrama [phone] (15 min) Moderate 04/04/2018 Patient Education: Patient Medication Summary Completed 04/04/2018 Visit Plan: Wound Instructions - Pt was instructed to keep the wound clean, wash with antibacterial soap, use triple antibiotic ointment, call if redness, pustular drainage, or any other acute concerns. 01/19/2018 Appointment: Lynn Arenas WPtel: [phone] (30 min) Complex 01/19/2018 Patient Education: Patient [...] acute concerns. 01/05/2018 Appointment: Lynn Arenas WPtel: [phone] [phone] (30 min) Complex 01/05/2018 Patient Education: Patient [...] improve. 11/29/2017 Appointment: Mishel Balderrama WPtel: [phone] [phone] [place] (30 min) Complex 11/29/2017 Patient Education: [...] improve. 10/25/2017 Appointment: [facility] Balderr[phone] [place] (30 min) Complex 10/25/2017 Patient Education: [...] edema. 09/12/2017 Appointment: [facility] Balderr[phone] [place] (30 min) Complex 09/12/2017 Patient Education: Patient Medication Summary Completed 09/12/2017 Appointment: Lynn Arenas WPtel: [phone] [phone] [place] (30 min) Complex 06/27/2017 Visit Plan: [...] changes. 06/14/2017 Appointment: Mishel Balderrama WPtel: [phone] [phone] (15 min) Moderate 06/14/2017 Patient Education: Patient [...] changes 05/10/2017 Appointment: [facility] Balderrama [phone] [place] (15 min) Moderate 05/10/2017 Patient Education: [...] changes. 04/19/2017 Appointment: Mis[facility] Balderrama [phone] (15 min) Moderate 04/19/2017 Patient Education: Patient [...] on previous levels of control. Low back wiqb-jqdouav-gmltox tramadol for prn use 03/27/2017 Appointment: [facility] Aren[facility]el[phone] (30 min) Complex 03/27/2017 Patient Education: Patient [...] improve. 01/26/2017 Appointment: Damari Finn WPtel: [phone] [facility] (15 min) Moderate 01/26/2017 Patient Education: Patient [...] concerns. 12/07/2016 Appointment: Mishel Balderrama WPtel: [phone] [phone] (15 min) Moderate 12/07/2016 Patient Education: Patient [...] changes. 11/28/2016 Appointment: Mis[facility] Balderrama [phone] (15 min) Moderate 11/28/2016 Patient Education: Patient Medication Summary Completed 11/28/2016 Appointment: Mishel Balderrama WPtel: [phone] [facility] (15 min) Moderate 11/24/2016 Visit Plan: Bronchitis [...] changes. 11/15/2016 Appointment: Mis[facility] Balderrama [phone] (30 min) Complex 11/15/2016 Patient Education: Patient [...] acute changes. 10/17/2016 Appointment: Mis[facility] Balderrama [facility]el[phone] (30 min) Complex 10/17/2016 Patient Education: Patient [...] tylenol 09/28/2016 [facility]ment: [phone] ([facility] min) Moderate 09/28/2016 Patient Education: [...] control. 06/29/2016 Appointment: Lynn Arenas WPtel: [phone] [phone] (15 min) Moderate 06/29/2016 Patient Education: Patient [...] fluconazole 06/01/2016 Appointment: Damari Finn WPtel: [phone] [facility]66[facility] (15 min) Moderate 06/01/2016 Patient Education: Patient Medication Summary Completed 06/01/2016 Patient Education: Obesity Completed 06/01/2016 Visit Plan: Cellulitis - continue w ith oral antibiotics as previously directed, return to clinic as previously directed, call for acute change in symptoms, worsening redness, warmth, discharge. 05/11/2016 Appointment: Damari Finn WPtel: [facility]5 [facility] (15 min) Moderate 05/11/2016 Patient Education: Patient [...] any concerns. 04/01/2016 Appointment: Lynn Arenas WPtel: [facility]6 [address]66[facility] (30 min) Complex 04/01/2016 Patient Education: Patient Medication Summary Completed 04/01/2016 Patient Education: Obesity Completed 04/01/2016 Appointment: Lynn Arenas WPtel: [address] [place], [place] [phone] (30 min) Complex 03/29/2016 Visit Plan: Hypertension [...] levels of control. Low back pain-refill tramadol Vjbvm-qrhbgegsyy-yfxabmsv resolved 01/26/2016 Appointment: Lynn Arenas WPtel: [phone] [phone] (30 min) Complex 01/26/2016 Patient Education: Patient Medication Summary Completed 01/26/2016 Patient Education: Obesity Completed 01/26/2016 Care Plan: BMI Above normal followup RADHA F-MGMT EDUC & TRAIN 1 PT Pending 01/26/2016 Care Plan: Referral Order SNOMED-CT : [id number] Pending 01/07/2016 Appointment: Lynn Arenas WPtel: [facility]3 [phone] (15 min) Moderate 12/24/2015 Visit Plan: Hypertension [...] her labias, requests a referral to Dr. Duagherty. Will refer pt. 12/21/2015 Patient Education: Patient Medication Summary Completed 12/21/2015 Care Plan: Miracle LORENZO RTS Pending 12/21/2015 Visit Plan: cellulitis/abscess of garcia weaver-use bactroban ointment as needed -keep groin clean [...] nor improving. 06/01/2015 Appointment: Damari Finn WPtel[facility] ([facility] min) Moderate 06/01/2015 Patient Education: [...] refill tramadol 12/11/2014 Appointment: Damari Finn WPtel: [facility] follow up 12/11/2014 Patient Education: Patient Medication Summary Completed 12/11/2014 Patient Education: Hypertension Completed 12/11/2014 Appointment: Damari Finn WPtel: [address] [place] [address] follow up 11/27/2014 Visit Plan: Hidradenitis Suppurativ [...] to get her back MRI done at [facility] in [place] as that is where her specialist will be once we get her an appt with one of the local Neurosurgeons. 09/18/2014 Appointment: Aakash Damari [facility]el[phone] Follow up 09/18/2014 Patient Education: Patient [...] as scheduled 07/31/2014 Appointment: [facility]el[phone] [place] New Patient 07/31/2014 Patient Education: Patient [...] . Asthma Exacerbation - Asthma is a wire straightener jamee problem for this patient, however, the [...] on previous levels of control. Low back aoyj-wchlcwb-skrbmx tramadol for prn use claritin or zyrtec [...] medication into affected eye four times daily. Check thyroid on Feb. Will refill blood [...] . Asthma Exacerbation - Asthma is a wire straightener jamee problem for this patient, however, the [...] . Asthma Exacerbation - Asthma is a wire straightener jamee problem for this patient, however, the [...] symptoms, worsening redness, warmth, discharge. Declined Procedure: (14906) FLU VAC NO PRSV 4 JUSTYNA 3 YRS+; Declined Reason: refused Physical therapy at [facility] . Hypertension - well controlled - [...] levels of control. Low back pain-refill tramadol Pbgqp-fursilizxs-qlrhzgrs resolved . Hypertension - wel l controlled [...] to get her back MRI done at [facility] in [place] as that is where her specialist will [...]
--- OUTSIDE RECORDS SUMMARY | 2020-02-20 18:43 | XMS REPORT | CCD ---
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 Unknown Has never used illegal drugs 014 Allergies, Adverse Reactions, Alerts Substance Reaction Codes Entered Date Inactivated Date Status * NO KNOWN FOOD BEVERLY RGIES Unknown 07/31/2014 No Inactive Date Active bactrim hives, rash RxNorm: 188264 04/05/2016 No Inactive Date Active Past Medical [...] Date Stop Date Sta tus Fill Instructions prednisone 20 mg tablet RxNorm: 717113 1 Tablet(s) PO BID x 2 days, then 1 pill daily x 3 days, then 1/2 pill every other day x 3 doses. 04/29/2019 No Stop Date Active tramadol 50 mg tablet RxNorm: 776512 1 Tablet(s) PO Q6 PRN as needed for pain 04/09/2019 05/05/2019 In active levothyroxine 125 mc g tablet RxNorm: 673100 1 Tablet(s) PO daily TAKE ONE TABLET BY MOUTH DAILY ON AN EMPTY STOMACH 03/25/2019 06/16/2020 Active lorazepam 1 mg tablet RxNorm: 390520 Tablet(s) TAKE TWO TABLETS BY MOUTH AT B EDTIME NEEDED FOR INSOMNIA AND ONE TABLET DAILY NEEDED ANXIETY 03/15/2019 05/13/2019 Active tramadol 50 mg tablet RxNorm: 493249 1 Tablet(s) PO Q4 PRN as needed for pain 03/15/2019 04/08/2019 In active tramadol 50 mg tablet RxNorm: 425278 1 Tablet(s) PO Q4 PRN as needed for pain 02/20/2019 03/14/2019 In active lorazepam 1 mg tablet RxNorm: 028036 Tablet(s) TAKE TWO TABLETS BY MOUTH AT B EDTIME NEEDED FOR INSOMNIA AND ONE TABLET DAILY NEEDED ANXIETY 01/04/2019 03/03/2019 Inactive tramadol 50 mg tablet RxNorm: 661478 1 Tablet(s) PO Q4 PRN as needed for pain 12/05/2018 01/12/2019 In active Keflex 500 mg capsule RxNorm: 291317 1 Capsule(s) PO TID 12/05/2018 12/11/2018 Inactive ciprofloxacin 0.3 % eye drops RxNorm: 325900 INSTILL TWO DROPS TO THE AFFECTED EYE(S) THREE TIMES A DAY 11/23/2018 12/25/2018 Inactive ProAir HFA 90 mcg/ac tuation aerosol inhaler RxNorm: 6417594 1-2 Puff(s) INH Q4 P RN INHALE 1 TO 2 PUFFS FOUR TIMES A DAY NEEDED FOR ASTHMA 10/30/2018 01/27/2019 Inactive levothyroxine 137 mc g tablet RxNorm: 965056 1 Tablet(s) PO daily TAKE ONE TABLET BY MOUTH DAILY ON AN EMPTY STOMACH 10/30/2018 03/24/2019 Inactive tramadol 50 mg tablet RxNorm: 140716 1 Tablet(s) PO Q4 PRN as needed for pain 10/29/2018 12/04/2018 In active levothyroxine 125 mc g tablet RxNorm: 286138 1 Tablet(s) PO daily TAKE ONE TABLET BY MOUTH DAILY ON AN EMPTY STOMACH 09/06/2018 10/29/2018 Inactive lorazepam 1 mg tablet RxNorm: 113269 Tablet(s) TAKE TWO TABLETS BY MOUTH AT B EDTIME NEEDED FOR INSOMNIA AND ONE TABLET DAILY NEEDED ANXIETY 09/06/2018 11/02/2018 Inactive tramadol 50 mg tablet RxNorm: 130139 1 Tablet(s) PO Q4 PRN as needed for pain 09/06/2018 10/15/2018 In active tramadol 50 mg tablet RxNorm: 911488 1 Tablet(s) PO Q4 PRN as needed for pain 07/06/2018 08/14/2018 In active ciprofloxacin 0.3 % eye drops RxNorm: 551121 2 Drop(s) ophthalmic (eye) TID 06/28/2018 07/07/2018 In active lorazepam 1 mg tablet RxNorm: 634808 Tablet(s) TAKE TWO TABLETS BY MOUTH AT B EDTIME NEEDED FOR INSOMNIA AND ONE TABLET DAILY NEEDED ANXIETY 06/28/2018 08/26/2018 Inactive doxycycline hyclate 100 mg tablet RxNorm: 8174608 1 Tablet(s) PO BID 06/28/2018 07/04/2018 Inactive tramadol 50 mg tablet RxNorm: 776198 1 Tablet(s) PO Q4 PRN as needed for pain 06/13/2018 07/05/2018 In active lorazepam 1 mg tablet RxNorm: 103943 Tablet(s) TAKE TWO TABLETS BY MOUTH AT B EDTIME NEEDED FOR INSOMNIA AND ONE TABLET DAILY NEEDED ANXIETY 05/23/2018 06/27/2018 Inactive tramadol 50 mg tablet RxNorm: 025768 1 Tablet(s) PO Q4 PRN as needed for pain 05/23/2018 06/12/2018 In active levothyroxine 125 mc g tablet RxNorm: 479436 Tablet(s) TAKE ONE TA BLET BY MOUTH DAILY ON AN EMPTY STOMACH 05/23/2018 09/05/2018 Inactive tramadol 50 mg tablet RxNorm: 353649 1 Tablet(s) PO Q4 PRN as needed for pain 05/17/2018 05/22/2018 In active levothyroxine 125 mc g tablet RxNorm: 167863 TAKE ONE TABLET BY MO UT DAILY 05/15/2018 06/27/2018 In active levothyroxine 125 mc g tablet RxNorm: 303812 TAKE ONE TABLET BY MO UT DAILY 05/15/2018 06/27/2018 In active tramadol 50 mg tablet RxNorm: 832219 1 Tablet(s) PO Q4 PRN as needed for pain 04/30/2018 05/16/2018 In active Advair Diskus 100 mc g-50 mcg/dose powder for inhalation RxNorm: 0646529 1 Puff(s) INH BID 04/06/2018 01/21/2019 Inactive Symbicort 80 mcg-4.5 mcg/actuation HFA aerosol inhaler RxNorm: 3914355 2 Puff(s) INH BID 04/06/2018 01/21/2019 Inactive Advair Diskus 250 mc g-50 mcg/dose powder for inhalation RxNorm: 1921379 1 Puff(s) INH BID 04/05/2018 09/01/2018 Inactive Zyrtec 10 mg tablet RxNorm: 9681367 1 Tablet(s) PO daily x1 week then PRN 04/05/2018 08/02/2018 In active lisinopril 20 mg-hyd rochlorothiazide 25 mg tablet RxNorm: 024822 Tablet(s) TAKE ONE TABLET BY MOUTH DAILY 04/05/2018 10/29/2018 Inactive Zyrtec 10 mg tablet RxNorm: 7643486 1 Tablet(s) PO daily 04/04/2018 05/03/2018 Inactive tramadol 50 mg tablet RxNorm: 985861 1 Tablet(s) PO Q4 PRN as needed for pain 03/13/2018 04/21/2018 In active lorazepam 1 mg tablet RxNorm: 306494 Tablet(s) TAKE TWO TABLETS BY MOUTH AT B EDTIME NEEDED FOR INSOMNIA AND ONE TABLET DAILY NEEDED ANXIETY 03/02/2018 04/30/2018 Inactive levothyroxine 125 mc g tablet RxNorm: 831496 1 Tablet(s) PO daily 02/06/2018 05/06/2018 Inactive levothyroxine 125 mc g tablet RxNorm: 209006 TAKE ONE TABLET BY [facility] DAILY ON AN EMPTY STOMACH 02/06/2018 05/22/2018 Inactive tramadol 50 mg tablet RxNorm: 201468 1 Tablet(s) PO Q4 PRN as needed for pain 01/26/2018 03/06/2018 In active lorazepam 1 mg tablet RxNorm: 481414 Tablet(s) TAKE TWO TABLETS BY MOUTH AT B EDTIME NEEDED FOR INSOMNIA AND ONE TABLET DAILY NEEDED ANXIETY 01/23/2018 06/27/2018 Inactive Symbicort 80 mcg-4.5 mcg/actuation HFA aerosol inhaler RxNorm: 3110358 INH 01/05/2018 06/27/2018 In active tramadol 50 mg tablet RxNorm: 268028 1 Tablet(s) PO Q4 PRN as needed for pain 01/04/2018 01/25/2018 In active Advair Diskus 250 mc g-50 mcg/dose powder for inhalation RxNorm: 4997533 1 Puff(s) INH BID 11/29/2017 03/28/2018 Inactive hydrochlorothiazide 12.5 mg tablet RxNorm: 642320 1 Tablet(s) PO daily 11/29/2017 12/28/2017 In active tramadol 50 mg tablet RxNorm: 129500 1 Tablet(s) PO Q4 PRN as needed for pain 11/23/2017 01/01/2018 In active tramadol 50 mg tablet RxNorm: 356378 1 Tablet(s) PO Q4 PRN as needed for pain 10/06/2017 11/14/2017 In active lorazepam 1 mg tablet RxNorm: 340730 Tablet(s) TAKE TWO TABLETS BY MOUTH AT B EDTIME NEEDED FOR INSOMNIA AND ONE TABLET DAILY NEEDED ANXIETY 09/12/2017 06/27/2018 Inactive tramadol 50 mg tablet RxNorm: 223228 1 Tablet(s) PO Q4 PRN as needed for pain 09/12/2017 10/05/2017 In active tramadol 50 mg tablet RxNorm: 664353 1 Tablet(s) PO Q4 PRN as needed for pain 08/15/2017 09/11/2017 In active tramadol 50 mg tablet RxNorm: 393100 1 Tablet(s) PO Q4 PRN as needed for pain 06/29/2017 08/07/2017 In active ProAir HFA 90 mcg/ac tuation aerosol inhaler RxNorm: 7064240 INHALE 1 TO 2 PUFFS FOUR TIMES A DAY NEEDED FOR ASTHMA 06/14/2017 11/10/2017 Inactive prednisone 20 mg tablet RxNorm: 561619 1 Tablet(s) PO BID x 2 days, then 1 pill daily x 3 days, then 1/2 pill every other day x 3 doses. 06/14/2017 09/11/2017 Inactive Kenalog 40 mg/mL madhavi pension for injection RxNorm: 5830953 1 Milliliter(s) Inj 06/14/2017 06/14/2017 In active Zyrtec 10 mg tablet RxNorm: 5827210 1 Tablet(s) PO daily 06/14/2017 07/13/2017 Inactive tramadol 50 mg tablet RxNorm: 344114 1 Tablet(s) PO Q4 PRN as needed for pain 06/08/2017 06/27/2017 In active [SAVINGS FOR UNINSURED PATIENTS -- BIN:0 93399, PCN: ASPROD1, Group: AME08, ID# [id number], Process claim through Score The Board, for questions: . THIS IS NOT INSURANCE.] tramadol 50 mg tablet RxNorm: 694587 1 Tablet(s) PO Q4 PRN as needed for pain 05/16/2017 06/04/2017 In active [SAVINGS FOR UNINSURED PATIENTS -- BIN:0 02674, PCN: ASPROD1, Group: AME08, ID# [id number], Process claim through Score The Board, for questions: . THIS IS NOT INSURANCE.] lorazepam 1 mg tablet RxNorm: 784708 Tablet(s) TAKE TWO TABLETS BY MOUTH AT B EDTIME NEEDED FOR INSOMNIA AND ONE TABLET DAILY NEEDED ANXIETY 05/16/2017 08/13/2017 Inactive Lasix 20 mg tablet RxNorm: 926515 1 Tablet(s) PO daily 05/10/2017 05/09/2017 Inactive Lasix 20 mg tablet RxNorm: 559382 1 Tablet(s) PO daily 05/10/2017 05/12/2017 Inactive potassium chloride E R 10 mEq tablet,extended release RxNorm: 621650 1 Tablet(s) PO daily while on the lasix 05/10/2017 05/09/2017 Inactive potassium chloride E R 10 mEq tablet,extended release RxNorm: 364872 1 Tablet(s) PO daily while on the lasix 05/10/2017 05/12/2017 Inactive prednisone 20 mg tablet RxNorm: 396277 1 Tablet(s) PO BID x 2 days, then 1 pill daily x 3 days, then 1/2 pill every other day x 3 doses. 04/19/2017 06/13/2017 Inactive Zithromax Z-Linus 250 mg tablet RxNorm: 339652 1 Tablet(s) PO UD 04/13/2017 06/28/2017 Inactive prednisone 20 mg tablet RxNorm: 854128 1 Tablet(s) PO BID 04/13/2017 04/17/2017 Inactive levothyroxine 125 mc g tablet RxNorm: 054265 1 Tablet(s) PO daily 04/11/2017 10/07/2017 Inactive tramadol 50 mg tablet RxNorm: 031724 1 Tablet(s) PO Q4 PRN as needed for pain 03/27/2017 04/15/2017 In active [SAVINGS FOR UNINSURED PATIENTS -- BIN:0 98828, PCN: ASPROD1, Group: AME08, ID# [id number], Process claim through MedImpact, for questions: . THIS IS NOT INSURANCE.] Kenalog 40 mg/mL madhavi pension for injection RxNorm: 3858659 1 Milliliter(s) Inj 03/27/2017 03/27/2017 In active tramadol 50 mg tablet RxNorm: 206814 1 Tablet(s) PO Q4H as needed for pain 03/09/2017 03/26/2017 In active [SAVINGS FOR UNINSURED PATIENTS -- BIN:0 67001, PCN: ASPROD1, Group: [id number], ID# [id number], Process claim through MedImpact, for questions: . THIS IS NOT INSURANCE.] lisinopril 20 mg-hyd rochlorothiazide 25 mg tablet RxNorm: 106714 TAKE ONE TABLET BY MOUTH DAILY 01/29/2017 11/21/2017 Inactive lorazepam 1 mg tablet RxNorm: 338905 Tablet(s) TAKE TWO TABLETS BY MOUTH AT B EDTIME NEEDED FOR INSOMNIA AND ONE TABLET DAILY NEEDED ANXIETY 01/05/2017 04/04/2017 Inactive tramadol 50 mg tablet RxNorm: 459091 1 Tablet(s) PO Q4H as needed for pain 12/07/2016 01/13/2017 In active [SAVINGS FOR UNINSURED PATIENTS -- BIN:0 61635, PCN: ASPROD1, Group: AME08, ID# [id number], Process claim through MedImpact, for questions: . THIS IS NOT INSURANCE.] Kenalog 40 mg/mL madhavi pension for injection RxNorm: 7203758 Milliliter(s) Inj 12/07/2016 12/07/2016 In active nystatin 100,000 uni t/mL oral suspension RxNorm: 131710 4 Milliliter(s) PO QI D 12/07/2016 12/11/2016 In active Francia-D 12 Hour 60 mg-120 mg tablet,extended release RxNorm: 575007 1 Tablet(s) PO BID 12/07/2016 01/11/2017 Inactive lorazepam 1 mg tablet RxNorm: 073121 Tablet(s) TAKE TWO TABLETS BY MOUTH AT B EDTIME AND ONE TABLET DAILY NEEDED 12/07/2016 01/04/2017 Inactive (Response to an electronic controlled substance refill request - RxReferenceNumber: [id number]) albuterol sulfate 2. 5 mg/3 mL (0.083 %) solution for nebulization RxNorm: 935603 3 Milliliter(s) INH TID 11/29/2016 11/28/2016 Inactive prednisone 10 mg tablet RxNorm: 248500 Tablet(s) PO UD 11/29/2016 12/05/2016 Inactive 6,5,4,3,2,1 doxycycline hyclate 100 mg tablet RxNorm: 261325 1 Tablet(s) PO BID 11/29/2016 12/04/2016 Inactive albuterol sulfate 2. 5 mg/3 mL (0.083 %) solution for nebulization RxNorm: 282530 3 Milliliter(s) INH TID 11/29/2016 12/03/2016 Inactive Kenalog 40 mg/mL madhavi pension for injection RxNorm: 3060160 Milliliter(s) Inj 11/28/2016 11/28/2016 In active tramadol 50 mg tablet RxNorm: 029859 1 Tablet(s) PO Q4H as needed for pain 11/15/2016 12/06/2016 In active [SAVINGS FOR UNINSURED PATIENTS -- BIN:0 89310, PCN: ASPROD1, Group: [id number], ID# [id number], Process claim through Score The Board, for questions: . THIS IS NOT INSURANCE.] prednisone 20 mg tablet RxNorm: 622925 2 Tablet(s) PO daily 11/15/2016 11/19/2016 Inactive Advair Diskus 100 mc g-50 mcg/dose powder for inhalation RxNorm: 3164846 1 Puff(s) INH BID 11/15/2016 06/11/2017 Inactive ProAir HFA 90 mcg/ac tuation aerosol inhaler RxNorm: 746734 INHALE 1 TO 2 PUFFS F OUR TIMES A DAY NEEDED FOR ASTHMA 11/15/2016 04/13/2017 Inactive Zithromax Z-Linus 250 mg tablet RxNorm: 871286 1 Tablet(s) PO UD 11/15/2016 11/27/2016 Inactive Zyrtec 10 mg tablet RxNorm: 5826900 1 Tablet(s) PO daily 10/17/2016 11/15/2016 Inactive Keflex 500 mg capsule RxNorm: 331427 1 Capsule(s) PO TID 10/17/2016 10/23/2016 Inactive prednisone 10 mg tablet RxNorm: 660140 Tablet(s) PO UD 10/17/2016 11/28/2016 Inactive 6,5,4,3,2,1 tramadol 50 mg tablet RxNorm: 835364 1 Tablet(s) PO Q4H as needed for pain 09/28/2016 11/06/2016 In active [SAVINGS FOR UNINSURED PATIENTS -- BIN:0 57382, PCN: ASPROD1, Group: AME08, ID# [id number], Process claim through Score The Board, for questions: . THIS IS NOT INSURANCE.] ProAir HFA 90 mcg/ac tuation aerosol inhaler RxNorm: 243112 INHALE 1 TO 2 PUFFS F OUR TIMES A DAY NEEDED FOR ASTHMA 09/15/2016 11/14/2016 Inactive doxycycline hyclate 100 mg tablet RxNorm: 363690 1 Tablet(s) PO BID 09/15/2016 09/24/2016 Inactive doxycycline hyclate 100 mg tablet RxNorm: 835188 1 Tablet(s) PO BID 07/29/2016 08/07/2016 Inactive tramadol 50 mg tablet RxNorm: 238819 1 Tablet(s) PO Q4H as needed for pain 07/29/2016 09/06/2016 In active [SAVINGS FOR UNINSURED PATIENTS -- BIN:0 17760, PCN: ASPROD1, Group: AME08, ID# [id number], Process claim through Score The Board, for questions: . THIS IS NOT INSURANCE.] lorazepam 1 mg tablet RxNorm: 579543 Tablet(s) TAKE TWO TABLETS BY MOUTH AT B EDTIME AND ONE TABLET DAILY NEEDED 07/29/2016 10/26/2016 Inactive (Response to an electronic controlled substance refill request - RxReferenceNumber: [id number]) levothyroxine 125 mc g tablet RxNorm: 799697 1 Tablet(s) PO daily 06/29/2016 06/29/2016 Inactive levothyroxine 137 mc g tablet RxNorm: 038231 1 Tablet(s) PO daily 06/29/2016 12/25/2016 Inactive ketoconazole 2 % sha mpoo RxNorm: 853135 1 Application TOP BID 06/29/2016 07/03/2016 Inactive tramadol 50 mg tablet RxNorm: 816754 1 Tablet(s) PO Q4H as needed for pain 06/16/2016 07/25/2016 In active [SAVINGS FOR UNINSURED PATIENTS -- BIN:0 62617, PCN: ASPROD1, Group: [id number], ID# [id number], Process claim through Score The Board, for questions: . THIS IS NOT INSURANCE.] Bactroban 2 % topica l ointment RxNorm: 169111 APPLY TO AFFECTED ARE A(S) TWO TIMES A DAY 06/16/2016 04/16/2017 Inactive fluconazole 150 mg t ablet RxNorm: 470086 1 Tablet(s) PO daily 06/01/2016 06/05/2016 Inactive gentamicin 0.1 % top ical ointment RxNorm: 030869 1 Application TOP QID 05/12/2016 05/25/2016 In active metronidazole 500 mg tablet RxNorm: 298055 1 Tablet(s) PO TID 05/11/2016 05/24/2016 Inactive gentamicin 0.1 % top ical ointment RxNorm: 193408 1 Application TOP QID 05/11/2016 05/11/2016 In active doxycycline hyclate 100 mg tablet RxNorm: 988002 1 Tablet(s) PO BID 05/11/2016 05/24/2016 Inactive lorazepam 1 mg tablet RxNorm: 360084 Tablet(s) TAKE TWO TABLETS BY MOUTH AT B EDTIME AND ONE TABLET DAILY NEEDED 05/02/2016 07/28/2016 Inactive (Response to an electronic controlled substance refill request - RxReferenceNumber: [id number]) Diflucan 150 mg tablet RxNorm: 768678 1 Tablet(s) PO daily x5 days then 1 x we ekly x 4 weeks. 05/02/2016 04/10/2017 Inactive Diflucan 150 mg tablet RxNorm: 233681 1 Tablet(s) PO every other day 04/19/2016 04/28/2016 In active Diflucan 150 mg tablet RxNorm: 760899 1 Tablet(s) PO every other day 04/19/2016 04/18/2016 In active Diflucan 150 mg tablet RxNorm: 003214 1 Tablet(s) PO daily 04/05/2016 04/11/2016 Inactive mupirocin 2 % topica l ointment RxNorm: 809474 1 Application TOP BID 04/05/2016 05/04/2016 Inactive tramadol 50 mg tablet RxNorm: 707709 1 Tablet(s) PO Q4H as needed for pain 04/05/2016 05/14/2016 In active [SAVINGS FOR UNINSURED PATIENTS -- BIN:0 39453, PCN: ASPROD1, Group: [id number], ID# [id number], Process claim through Score The Board, for questions: . THIS IS NOT INSURANCE.] prednisone 10 mg tablet RxNorm: 946815 Tablet(s) PO UD 04/01/2016 09/26/2016 Inactive 6,5,4,3,2,1 levothyroxine 137 mc g tablet RxNorm: 792703 1 Tablet(s) PO daily 03/21/2016 03/20/2016 Inactive levothyroxine 137 mc g tablet RxNorm: 404898 1 Tablet(s) PO daily 03/21/2016 06/28/2016 Inactive Advair Diskus 100 mc g-50 mcg/dose powder for inhalation RxNorm: 3629280 1 Puff(s) INH BID 01/26/2016 05/24/2016 Inactive tramadol 50 mg tablet RxNorm: 856375 1 Tablet(s) PO Q4H as needed for pain 01/26/2016 03/05/2016 In active [SAVINGS FOR UNINSURED PATIENTS -- BIN:0 55819, PCN: ASPROD1, Group: AME08, ID# [id number], Process claim through Score The Board, for questions: . THIS IS NOT INSURANCE.] Bactroban 2 % topica l ointment RxNorm: 396992 APPLY TO AFFECTED ARE A(S) TWO TIMES A DAY 12/22/2015 12/31/2015 Inactive Bactrim DS 800 mg-16 0 mg tablet RxNorm: 116288 TAKE ONE TABLET BY [facility] TWICE A DAY 12/22/2015 04/18/2016 In active Bactrim DS 800 mg-16 0 mg tablet RxNorm: 002992 1 Tablet(s) PO BID 12/21/2015 01/21/2019 Inactive lisinopril 20 mg-hyd rochlorothiazide 25 mg tablet RxNorm: 676787 1 Tablet(s) PO daily 12/21/2015 06/17/2016 Inactive [SAVINGS FOR UNINSURED PATIENTS -- BIN:0 97918, PCN: ASPROD1, Group: [id number], ID# [id number], Process claim through Score The Board, for questions: . THIS IS NOT INSURANCE.] tramadol 50 mg tablet RxNorm: 008364 1 Tablet(s) PO Q4H as needed for pain 12/03/2015 01/11/2016 In active [SAVINGS FOR UNINSURED PATIENTS -- BIN:0 59031, PCN: ASPROD1, Group: [id number], ID# [id number], Process claim through Score The Board, for questions: . THIS IS NOT INSURANCE.] lorazepam 1 mg tablet RxNorm: 950407 Tablet(s) TAKE TWO TABLETS BY MOUTH AT B EDTIME AND ONE TABLET DAILY NEEDED 11/26/2015 06/27/2018 Inactive (Response to an electronic controlled substance refill request - RxReferenceNumber: [id number]) Bactrim DS 800 mg-16 0 mg tablet RxNorm: 720023 1 Tablet(s) PO BID 11/25/2015 12/04/2015 Inactive levothyroxine 150 mc g tablet RxNorm: 449379 1 Tablet(s) PO daily 11/25/2015 03/20/2016 Inactive Bactroban 2 % topica l ointment RxNorm: 990571 1 Application TOP BID 10/12/2015 10/21/2015 Inactive Bactrim DS 800 mg-16 0 mg tablet RxNorm: 625701 1 Tablet(s) PO BID 09/07/2015 09/06/2015 Inactive Bactrim DS 800 mg-16 0 mg tablet RxNorm: 545975 1 Tablet(s) PO BID 09/07/2015 09/16/2015 Inactive lorazepam 1 mg tablet RxNorm: 645039 Tablet(s) TAKE TWO TABLETS BY MOUTH AT B EDTIME AND ONE TABLET DAILY NEEDED 08/28/2015 11/24/2015 Inactive (Response to an electronic controlled substance refill request [id number]) levothyroxine 175 mc g tablet RxNorm: 715380 1 Tablet(s) PO daily 08/24/2015 11/24/2015 Inactive tramadol 50 mg tablet RxNorm: 303304 1 Tablet(s) PO Q4H as needed for pain 08/24/2015 09/11/2017 In active [SAVINGS FOR UNINSURED PATIENTS -- BIN:0 15220, PCN: ASPROD1, [facility], ID# [id number], Process claim through Score The Board, for questions: . THIS IS NOT INSURANCE.] lisinopril 20 mg-hyd rochlorothiazide 25 mg tablet RxNorm: 861532 1 Tablet(s) PO daily TAKE 1 TABLET BY MOUTH DAILY 08/24/2015 06/27/2018 Inactive ProAir HFA 90 mcg/ac tuation aerosol inhaler RxNorm: 904342 1-2 Puff(s) INH PRN I NHALE ONE TO TWO PUFFS BY MOUTH FOUR TIMES A DAY NEEDED FOR ASTHMA 08/24/2015 12/01/2015 In active ProAir HFA 90 mcg/ac tuation aerosol inhaler RxNorm: 2627403 INHALE ONE TO TWO PU FFS BY MOUTH FOUR TIMES A DAY NEEDED FOR ASTHMA 08/17/2015 08/23/2015 Inactive Advair Diskus 250 mc g-50 mcg/dose powder for inhalation RxNorm: 2918741 1 Puff(s) INH BID 07/20/2015 07/19/2015 Inactive Advair Diskus 250 mc g-50 mcg/dose powder for inhalation RxNorm: 4163710 1 Puff(s) INH BID 07/20/2015 11/16/2015 Inactive tramadol 50 mg tablet RxNorm: 030112 1 Tablet(s) PO Q4H as needed for pain 07/10/2015 08/17/2015 In active [SAVINGS FOR UNINSURED PATIENTS -- BIN:0 93980, PCN: ASPROD1, Group: [id number], ID# [id number], Process claim through Score The Board, for questions: . THIS IS NOT INSURANCE.] Zithromax Z-Linus 250 mg tablet RxNorm: 132896 1 Tablet(s) PO UD 07/10/2015 01/18/2016 Inactive Keflex 500 mg capsule RxNorm: 115059 1 Capsule(s) PO TID 06/01/2015 06/07/2015 Inactive mupirocin 2 % topica l ointment RxNorm: 867521 1 Application TOP TID 06/01/2015 06/10/2015 Inactive lisinopril 20 mg-hyd rochlorothiazide 25 mg tablet RxNorm: 951768 TAKE 1 TABLET BY MOUT H DAILY 05/30/2015 08/23/2015 Inactive lisinopril 20 mg-hyd rochlorothiazide 25 mg tablet RxNorm: 520658 1 Tablet(s) PO daily 05/29/2015 11/24/2015 Inactive [SAVINGS FOR UNINSURED PATIENTS -- BIN:0 56060, PCN: ASPROD1, Group: [id number], ID# [id number], Process claim through Score The Board, for questions: . THIS IS NOT INSURANCE.] lorazepam 1 mg tablet RxNorm: 331846 Tablet(s) TAKE TWO TABLETS BY MOUTH AT B EDTIME AND ONE TABLET DAILY NEEDED 04/17/2015 07/13/2015 Inactive (Response to an electronic controlled substance refill request - RxReferenceNumber: [id number]) levothyroxine 200 mc g tablet RxNorm: 531807 1 Tablet(s) PO daily 03/12/2015 08/23/2015 Inactive [SAVINGS FOR UNINSURED PATIENTS -- BIN:0 74588, PCN: ASPROD1, Group: AME08, ID# [id number], Process claim through MedIJ-[employer], for questions: . THIS IS NOT INSURANCE.] lisinopril 20 mg-hyd rochlorothiazide 25 mg tablet RxNorm: 045067 1 Tablet(s) PO daily 03/11/2015 05/28/2015 Inactive [SAVINGS FOR UNINSURED PATIENTS -- BIN:0 25400, PCN: ASPROD1, Group: [id number], ID# [id number], Process claim through Score The Board, for questions: . THIS IS NOT INSURANCE.] levothyroxine 175 mc g tablet RxNorm: 621660 1 Tablet(s) PO daily 03/09/2015 03/11/2015 Inactive recheck blood in 3 months- THIS IS CORRE CT DOSAGE levothyroxine 175 mc g tablet RxNorm: 323478 1 Tablet(s) PO daily 03/09/2015 03/08/2015 Inactive recheck blood in 3 months levothyroxine 150 mc g tablet RxNorm: 989708 1 Tablet(s) PO daily 03/09/2015 03/08/2015 Inactive recheck blood in 3 months lorazepam 1 mg tablet RxNorm: 889918 TAKE TWO TABLETS BY MOUTH AT BEDTIME AND ONE TABLET DAILY NEEDED 12/25/2014 01/22/2015 Inactive (Response to an electronic controlled substance refill request - RxReferenceNumber: [id number]) lorazepam 1 mg tablet RxNorm: 462329 Tablet(s) TAKE TWO TABLETS BY MOUTH EVER Y NIGHT AT BEDTIME AND TAKE ONE TABLET BY MOUTH DAILY NEEDED 12/23/2014 12/25/2014 Inactive (Response to an electronic controlled north bstance refill request - RxReferenceNumber: [id number]) levothyroxine 150 mc g tablet RxNorm: 699083 1 Tablet(s) PO daily 12/12/2014 03/08/2015 Inactive recheck blood in 3 months Diflucan 150 mg tablet RxNorm: 228400 1 Tablet(s) PO every other day (start af ter finished with Cipro) 11/17/2014 08/23/2015 Inactive tramadol 50 mg tablet RxNorm: 469084 1 Tablet(s) PO Q4H as needed for pain 11/10/2014 12/17/2014 In active [SAVINGS FOR UNINSURED PATIENTS -- BIN:0 18259, PCN: ASPROD1, Group: [id number], ID# [id number], Process claim through [employer], for questions: . THIS IS NOT INSURANCE.] Cipro 500 mg tablet RxNorm: 040996 1 Tablet(s) PO BID 10/23/2014 10/29/2014 Inactive Flagyl 500 mg tablet RxNorm: 907662 1 Tablet(s) PO TID 10/23/2014 10/29/2014 Inactive Cipro 500 mg tablet RxNorm: 384939 1 Tablet(s) PO BID 10/23/2014 10/22/2014 Inactive Flagyl 500 mg tablet RxNorm: 378683 1 Tablet(s) PO TID 10/23/2014 10/22/2014 Inactive Diflucan 150 mg tablet RxNorm: 501137 1 Tablet(s) PO every other day (start af ter finished with Cipro) 10/23/2014 11/16/2014 Inactive lorazepam 1 mg tablet RxNorm: 839839 TAKE TWO TABLETS BY MOUTH EVERY NIGHT AT BEDTIME AND TAKE ONE TABLET BY MOUTH DAILY NEEDED 10/21/2014 10/21/2014 Inactive (Response to an electronic controlled [place] refill request - RxReferenceNumber: [id number]) lorazepam 1 mg tablet RxNorm: 825747 TAKE TWO TABLETS BY MOUTH EVERY NIGHT AT BEDTIME AND TAKE ONE TABLET BY MOUTH DAILY NEEDED 10/21/2014 11/18/2014 Inactive (Response to an electronic controlled [place] refill request - RxReferenceNumber: [id number]) lorazepam 1 mg tablet RxNorm: 068465 Tablet(s) TAKE TWO TABLETS BY MOUTH AT B EDTIME, ALSO TAKE ONE TABLET BY MOUTH DAILY NEEDED 10/13/2014 10/21/2014 Inactive (Res ponse to an electronic controlled substance refill request - RxReferenceNumber: [id number]) ProAir HFA 90 mcg/ac tuation aerosol inhaler RxNorm: 0933249 1-2 inhale INH QID a s needed ASTHMA 10/13/2014 12/26/2014 Inactive ProAir HFA 90 mcg/ac tuation aerosol inhaler RxNorm: 6934863 1-2 inhale INH QID a s needed ASTHMA 09/18/2014 10/12/2014 Inactive meloxicam 7.5 mg tablet RxNorm: 815588 1 Tablet(s) PO daily 09/18/2014 03/10/2015 Inactive [SAVINGS FOR UNINSURED PATIENTS -- BIN:0 43336, PCN: ASPROD1, Group: [id number], ID# [id number], Process claim through MedImpact, for questions: . THIS IS NOT INSURANCE.] sulfamethoxazole 800 mg-trimethoprim 160 mg tablet RxNorm: 591507 1 Tablet(s) PO BID 09/18/2014 10/07/2014 Inactive levothyroxine 175 mc g tablet RxNorm: 042096 1 Tablet(s) PO daily 09/17/2014 12/11/2014 Inactive levothyroxine 175 mc g tablet RxNorm: 299460 1 Tablet(s) PO daily 09/17/2014 09/16/2014 Inactive lorazepam 1 mg tablet RxNorm: 551957 Tablet(s) TAKE TWO TABLETS BY MOUTH AT B EDTIME, ALSO TAKE ONE TABLET BY MOUTH DAILY NEEDED 09/12/2014 10/11/2014 Inactive (Res ponse to an electronic controlled substance refill request - RxReferenceNumber: [id number]) lorazepam 1 mg tablet RxNorm: 491249 TAKE TWO TABLETS BY MOUTH AT BEDTIME, AL SO TAKE ONE TABLET BY MOUTH DAILY NEEDED 09/08/2014 09/11/2014 Inactive (Res ponse to an electronic controlled substance refill request - RxReferenceNumber: [id number]) meloxicam 7.5 mg tablet RxNorm: 913776 1 Tablet(s) PO daily 09/01/2014 09/17/2014 Inactive [SAVINGS FOR UNINSURED PATIENTS -- BIN:0 46389, PCN: ASPROD1, Group: [id number], ID# [id number], Process claim through MedImp[employer], for questions: . THIS IS NOT INSURANCE.] lisinopril 20 mg-hyd rochlorothiazide 25 mg tablet RxNorm: 529135 1 Tablet(s) PO daily 09/01/2014 12/29/2014 Inactive [SAVINGS FOR UNINSURED PATIENTS -- BIN:0 08972, PCN: ASPROD1, Group: AME08, ID# [id number], Process claim through MedImpact, for questions: . THIS IS NOT INSURANCE.] tramadol 50 mg tablet RxNorm: 531091 1 Tablet(s) PO Q4H as needed for pain 08/20/2014 11/07/2014 In active [SAVINGS FOR UNINSURED PATIENTS -- BIN:0 32846, PCN: ASPROD1, Group: AME08, ID# [id number], Process claim through MedImpact, for questions: . THIS IS NOT INSURANCE.] meloxicam 7.5 mg tablet RxNorm: 278100 1 Tablet(s) PO daily 08/14/2014 08/31/2014 Inactive [SAVINGS FOR UNINSURED PATIENTS -- BIN:0 55135, PCN: ASPROD1, Group: AME08, ID# [id number], Process claim through MedImpact, for questions: . THIS IS NOT INSURANCE.] lorazepam 1 mg tablet RxNorm: 464779 2 Tablet(s) PO QHS and 1 tab qd PRN 08/01/2014 09/08/2014 In active [SAVINGS FOR UNINSURED PATIENTS -- BIN:0 86342, PCN: ASPROD1, Group: AME08, ID# [id number], Process claim through MedImpact, for questions: . THIS IS NOT INSURANCE.] levothyroxine 200 mc g tablet RxNorm: 024342 1 Tablet(s) PO daily 07/31/2014 09/16/2014 Inactive [SAVINGS FOR UNINSURED PATIENTS -- BIN:0 05997, PCN: ASPROD1, Group: AME08, ID# [id number], Process claim through MedImpact, for questions: . THIS IS NOT INSURANCE.] lorazepam 1 mg tablet RxNorm: 950116 2 Tablet(s) PO QHS and 1 tab qd PRN No Start Date 07/31/2014 Inactive Phenergan VC-Codeine oral RxNorm: 680334 oral No S tart Date 11/26/2017 Inactive meloxicam 7.5 mg tablet RxNorm: 757282 1 Tablet(s) PO daily No Start Date 08/13/2014 Inactive lisinopril 20 mg-hyd rochlorothiazide 25 mg tablet RxNorm: 916172 1 Tablet(s) PO daily No Start Date 08/31/2014 Inactive levothyroxine 200 mc g tablet RxNorm: 523506 1 Tablet(s) PO daily No Start Date 07/30/2014 Inactive Diflucan 150 mg tablet RxNorm: 451022 1 Tablet(s) PO every other day No Start Date 10/22/2014 Inactive Zithromax Z-Linus 250 mg tablet RxNorm: 496807 1 Tablet(s) PO UD No Start Date 07/09/2015 Inactive tramadol 50 mg tablet RxNorm: 872634 1 Tablet(s) PO Q6 as needed No Start Date 08/19/2014 Inactive Medication Administered Medication Codes Instruc tions Start Date Status Kenalog 40 mg/mL suspension for injection RxNorm: 3635665 1Milliliter 06/14/2017 N o longer Active Kenalog 40 mg/mL suspension for injection RxNorm: 2046243 1Milliliter 03/27/2017 N o longer Active Kenalog 40 mg/mL suspension for injection RxNorm: 8309532 Milliliter 12/07/2016 No longer Active Kenalog 40 mg/mL suspension for injection RxNorm: 7391910 Milliliter 11/28/2016 No longer Active Immunizations Vaccine Codes Date Status Pneumococcal CVX: 33 09/1986 completed Tetanus, Diptheria, Pertussis CVX: 09 03/11/1987 completed Tetanus/Diptheria CVX: 03/11/1987 completed Influenza [...] 29.7 pg 03/21/2019 Cbc With Differential Ord2 [place]% 10.5 % 03/21/2019 Cbc With Differential Ord2 [...] 1.51 K/ul 03/21/2019 Cbc With Differential Ord2 [place] ABS# 0.6 K/ul 03/21/2019 Cbc With Differential Ord2 Eos ABS# 0.2 K/ul 03/21/2019 Cbc With Differential Ord2 Baso ABS# 0.0 K/ul 03/21/2019 Free T4 Umj964 FREE T4 1.52 ng/dL 03/21/2019 Comp Metabolic Nyy382 NA 141 mEq/L 03/21/2019 Comp Metabolic Ioo158 K 3.9 mEq/L 03/21/2019 Comp Metabolic Grz117 CL 107 mEq/L 03/21/2019 Comp Metabolic Xgi334 CO2 26.0 mEq/L 03/21/2019 Comp Metabolic Wmv704 AN ION GAP 12 03/21/2019 Comp Metabolic Lso862 GL UCOSE 111 mg/dL 03/21/2019 Comp Metabolic Lbl704 Cr eat 0.8 mg/dL 03/21/2019 Comp Metabolic Tvv399 eG FR 77 ml/min/1.73m2 03/21 Comp Metabolic Swq354 BUN 14 mg/dL 03/21/2019 Comp Metabolic Izb338 B/ C Ratio 18.2 Ratio 03/21/2019 Comp Metabolic Bpy149 CA LCIUM 9.2 mg/dL 03/21/2019 Comp Metabolic Xwb913 AL K PHOS 68 U/L 03/21/2019 Comp Metabolic Joi203 T(SGOT) 11 U/L 03/21/2019 Comp Metabolic Yfp248 AL T(SGPT) 8 U/L 03/21/2019 Comp Metabolic Ulh895 BI CASEY T 0.5 mg/dL 03/21/2019 Comp Metabolic Gqg640 AL BUMIN 4.1 g/dL 03/21/2019 Comp Metabolic Afg355 TP RO 6.3 g/dL 03/21/2019 Comp Metabolic Thc373 GL OB 2.2 g/dL 03/21/2019 Comp Metabolic Xmc541 A/ G Ratio 1.9 Ratio 03/21/2019 Comp Metabolic Xsp545 Os mo 282 mOsmo 03/21/2019 Tsh Ord6 TSH (3rd IS) 1.49 uIU/mL 01/21/2019 Free T4 Nbi811 FREE T4 1.15 ng/dL 01/21/2019 Lipid Ord30 CHOL 231 mg/dL 10/24/2018 Lipid Ord30 HDL 56.0 mg/dl 10/24/2018 Lipid Ord30 TRIG 71 mg/dL 10/24/2018 Lipid Ord30 LDL 161 mg/dL 10/24/2018 Lipid Ord30 C/HDL 4.1 Ratio 10/24/2018 Comp Metabolic Odr009 NA 141 mEq/L 10/24/2018 Comp Metabolic Tjf268 K 3.7 mEq/L 10/24/2018 Comp Metabolic Qwd569 CL 103 mEq/L 10/24/2018 Comp Metabolic Ebb336 CO2 30.0 mEq/L 10/24/2018 Comp Metabolic Pwu735 AN ION GAP 12 10/24/2018 Comp Metabolic Txu405 GL UCOSE 98 mg/dL 10/24/2018 Comp Metabolic Ksv013 Cr eat 0.8 mg/dL 10/24/2018 Comp Metabolic Auw154 eG FR 71 ml/min/1.73m2 10/24 Comp Metabolic Fgb678 BUN 12 mg/dL 10/24/2018 Comp Metabolic Jea092 B/ C Ratio 14.5 Ratio 10/24/2018 Comp Metabolic Nxb538 CA LCIUM 9.2 mg/dL 10/24/2018 Comp Metabolic Vjn690 AL K PHOS 76 U/L 10/24/2018 Comp Metabolic Yzr342 T(SGOT) 12 U/L 10/24/2018 Comp Metabolic Vfi341 AL T(SGPT) 9 U/L 10/24/2018 Comp Metabolic Ihq698 BI LI T 0.5 mg/dL 10/24/2018 Comp Metabolic Dpp765 AL BUMIN 4.3 g/dL 10/24/2018 Comp Metabolic Ctb985 TP RO 6.5 g/dL 10/24/2018 Comp Metabolic Qdk641 GL OB 2.2 g/dL 10/24/2018 Comp Metabolic Kil046 A/ G Ratio 2.0 Ratio 10/24/2018 Comp Metabolic Zbr059 Os mo 281 mOsmo 10/24/2018 Free T4 Duk687 FREE T4 0.76 ng/dL 10/24/2018 Cbc With [...] 30.5 pg 10/24/2018 Cbc With Differential Ord2 [place]% 8.4 % 10/24/2018 Cbc With Differential Ord2 [...] 1.71 K/ul 10/24/2018 Cbc With Differential Ord2 [place] ABS# 0.4 K/ul 10/24/2018 Cbc With Differential [...] 30.0 pg 04/04/2018 Cbc With Differential Ord2 [place]% 10.9 % 04/04/2018 Cbc With Differential Ord2 [...] 1.42 K/ul 04/04/2018 Cbc With Differential Ord2 [place] ABS# 0.6 K/ul 04/04/2018 Cbc With Differential Ord2 Eos ABS# 0.1 K/ul 04/04/2018 Cbc With Differential Ord2 Baso ABS# 0.0 K/ul 04/04/2018 Free T4 Svg766 FREE T4 1.25 ng/dL 04/04/2018 Tsh Ord6 [...] 30.2 pg 11/28/2017 Cbc With Differential Ord2 [place]% 10.1 % 11/28/2017 Cbc With Differential Ord2 [...] 1.33 K/ul 11/28/2017 Cbc With Differential Ord2 [place] ABS# 0.5 K/ul 11/28/2017 Cbc With Differential Ord2 Eos ABS# 0.1 K/ul 11/28/2017 Cbc With Differential Ord2 Baso ABS# 0.0 K/ul 11/28/2017 Free T4 Hnk173 FREE T4 1.43 ng/dL 11/28/2017 Lipid Ord30 CHOL 186 mg/dL 11/28/2017 Lipid Ord30 HDL 54.0 mg/dl 11/28/2017 Lipid Ord30 TRIG 59 mg/dL 11/28/2017 Lipid Ord30 LDL 120 mg/dL 11/28/2017 Lipid Ord30 C/HDL 3.4 Ratio 11/28/2017 Comp Metabolic Zie278 NA 141 mEq/L 11/28/2017 Comp Metabolic Tax004 K 4.0 mEq/L 11/28/2017 Comp Metabolic Ows749 CL 105 mEq/L 11/28/2017 Comp Metabolic Zou640 CO2 29.0 mEq/L 11/28/2017 Comp Metabolic Ftn547 AN ION GAP 11 11/28/2017 Comp Metabolic Cqp390 GL UCOSE 91 mg/dL 11/28/2017 Comp Metabolic Mep687 Cr eat 0.8 mg/dL 11/28/2017 Comp Metabolic Efk722 eG FR 74 ml/min/1.73m2 11/28 Comp Metabolic Bwz635 BUN 15 mg/dL 11/28/2017 Comp Metabolic Gpf784 B/ C Ratio 18.8 Ratio 11/28/2017 Comp Metabolic Ksy919 CA LCIUM 8.6 mg/dL 11/28/2017 Comp Metabolic Gsi820 AL K PHOS 76 U/L 11/28/2017 Comp Metabolic Jyo861 T(SGOT) 10 U/L 11/28/2017 Comp Metabolic Gef214 AL T(SGPT) 8 U/L 11/28/2017 Comp Metabolic Nho515 BI LI T 0.5 mg/dL 11/28/2017 Comp Metabolic Kud119 AL BUMIN 4.0 g/dL 11/28/2017 Comp Metabolic Vbk061 TP RO 6.1 g/dL 11/28/2017 Comp Metabolic Yvy484 GL OB 2.1 g/dL 11/28/2017 Comp Metabolic Ive495 A/ G Ratio 1.9 Ratio 11/28/2017 Comp Metabolic Eip791 Os mo 282 mOsmo 11/28/2017 Tsh Ord6 TSH (3rd IS) 3.31 uIU/mL 11/28/2017 Tsh Ord6 hTSH II 1.45 uIU/mL 03/27/2017 Free T4 Xrw353 FREE T4 1.23 ng/dL 03/27/2017 Comp Metabolic Seo357 NA 140 mEq/L 09/28/2016 Comp Metabolic Jcq628 K 3.9 mEq/L 09/28/2016 Comp Metabolic Cmg788 CL 104 mEq/L 09/28/2016 Comp Metabolic Qqm525 CO2 28.0 mEq/L 09/28/2016 Comp Metabolic Umj575 AN ION GAP 12 09/28/2016 Comp Metabolic Sfc764 GL UCOSE 97 mg/dL 09/28/2016 Comp Metabolic Tfl252 Cr eat 0.8 mg/dL 09/28/2016 Comp Metabolic Sev889 eG FR 79 ml/min/1.73m2 09/28 Comp Metabolic Tdc875 BUN 13 mg/dL 09/28/2016 Comp Metabolic Wmy049 B/ C Ratio 17.1 Ratio 09/28/2016 Comp Metabolic Zfk378 CA LCIUM 8.9 mg/dL 09/28/2016 Comp Metabolic Oop302 AL K PHOS 100 U/L 09/28/2016 Comp Metabolic Ypg470 T(SGOT) 12 U/L 09/28/2016 Comp Metabolic Zhf531 AL T(SGPT) 9 U/L 09/28/2016 Comp Metabolic Dpb543 BI LI T 0.4 mg/dL 09/28/2016 Comp Metabolic Mnq398 AL BUMIN 4.1 g/dL 09/28/2016 Comp Metabolic Jtb781 TP RO 6.6 g/dL 09/28/2016 Comp Metabolic Khm067 GL OB 2.5 g/dL 09/28/2016 Comp Metabolic Swj411 A/ G Ratio 1.6 Ratio 09/28/2016 Comp Metabolic Srt002 Os mo 279 mOsmo 09/28/2016 Lipid Ord30 [...] 28.8 pg 09/28/2016 Cbc With Differential Ord2 [place]% 7.2 % 09/28/2016 Cbc With Differential Ord2 [...] 1.41 K/ul 09/28/2016 Cbc With Differential Ord2 [place] ABS# 0.5 K/ul 09/28/2016 Cbc With Differential Ord2 Eos ABS# 0.2 K/ul 09/28/2016 Cbc With Differential Ord2 Baso ABS# 0.0 K/ul 09/28/2016 Free T4 Ocg312 FREE T4 1.43 ng/dL 09/28/2016 Tsh Ord6 hTSH II 0.52 uIU/mL 09/28/2016 Tsh Ord6 hTSH II 0.47 uIU/mL 06/16/2016 Comp Metabolic Pch397 NA 139 mEq/L 06/16/2016 Comp Metabolic Zdx086 K 4.3 mEq/L 06/16/2016 Comp Metabolic Ytb209 CL 105 mEq/L 06/16/2016 Comp Metabolic Xdz069 CO2 30.0 mEq/L 06/16/2016 Comp Metabolic Cdq915 AN ION GAP 8 06/16/2016 Comp Metabolic Ybr506 GL UCOSE 90 mg/dL 06/16/2016 Comp Metabolic Dfv274 Cr eat 0.7 mg/dL 06/16/2016 Comp Metabolic Ckc077 eG FR 91 ml/min/1.73m2 10/06 /2016 Comp Metabolic Hww071 BUN 15 mg/dL 06/16/2016 Comp Metabolic Mxm498 B/ C Ratio 22.4 Ratio 06/16/2016 Comp Metabolic Eul691 CA LCIUM 8.8 mg/dL 06/16/2016 Comp Metabolic Tyf411 AL K PHOS 79 U/L 06/16/2016 Comp Metabolic Axa462 T(SGOT) 13 U/L 06/16/2016 Comp Metabolic Gmv675 AL T(SGPT) 11 U/L 06/16/2016 Comp Metabolic Ewy606 BI LI T 0.5 mg/dL 06/16/2016 Comp Metabolic Dfd823 AL BUMIN 3.9 g/dL 06/16/2016 Comp Metabolic Lki076 TP RO 6.1 g/dL 06/16/2016 Comp Metabolic Sqa320 GL OB 2.2 g/dL 06/16/2016 Comp Metabolic Vbw309 A/ G Ratio 1.8 Ratio 06/16/2016 Comp Metabolic Nqx694 Os mo 278 mOsmo 06/16/2016 Lipid Ord30 [...] 28.9 pg 06/16/2016 Cbc With Differential Ord2 [place]% 8.1 % 06/16/2016 Cbc With Differential Ord2 [...] 1.70 K/ul 06/16/2016 Cbc With Differential Ord2 [place] ABS# 0.4 K/ul 06/16/2016 Cbc With Differential Ord2 Eos ABS# 0.2 K/ul 06/16/2016 Cbc With Differential Ord2 Baso ABS# 0.0 K/ul 06/16/2016 Free T4 Whl844 FREE T4 1.42 ng/dL 06/16/2016 Free T4 Htd480 FREE T4 1.34 ng/dL 03/04/2016 Tsh Ord6 hTSH II 0.56 uIU/mL 03/04/2016 Tsh Ord6 hTSH II 0.98 uIU/mL 01/27/2016 Free T4 Hnq262 FREE T4 1.19 ng/dL 01/27/2016 Free T4 Gyv083 FREE T4 1.69 ng/dL 11/23/2015 Tsh Ord6 hTSH II 0.08 uIU/mL 11/23/2015 Lipid Ord30 CHOL 185 mg/dL 08/21/2015 Lipid Ord30 HDL 50.0 mg/dl 08/21/2015 Lipid Ord30 TRIG 88 mg/dL 08/21/2015 Lipid Ord30 LDL 117 mg/dL 08/21/2015 Lipid Ord30 C/HDL 3.7 Ratio 08/21/2015 Comp Metabolic Txw183 NA 139 mEq/L 08/21/2015 Comp Metabolic Kao393 K 4.3 mEq/L 08/21/2015 Comp Metabolic Hic965 CL 102 mEq/L 08/21/2015 Comp Metabolic Cuf804 CO2 27.0 mEq/L 08/21/2015 Comp Metabolic Hqf006 AN ION GAP 14 08/21/2015 Comp Metabolic Haz178 GL UCOSE 89 mg/dL 08/21/2015 Comp Metabolic Seu724 Cr eat 0.7 mg/dL 08/21/2015 Comp Metabolic Alh768 eG FR 85 ml/min/1.73m2 08/21 Comp Metabolic Qwa589 BUN 14 mg/dL 08/21/2015 Comp Metabolic Cwo322 B/ C Ratio 19.7 Ratio 08/21/2015 Comp Metabolic Dqb053 CA LCIUM 9.5 mg/dL 08/21/2015 Comp Metabolic Qxq735 AL K PHOS 123 U/L 08/21/2015 Comp Metabolic Agb374 T(SGOT) 13 U/L 08/21/2015 Comp Metabolic Wqu769 AL T(SGPT) 10 U/L 08/21/2015 Comp Metabolic Zeg799 BI LI T 0.4 mg/dL 08/21/2015 Comp Metabolic Gpl139 AL BUMIN 4.1 g/dL 08/21/2015 Comp Metabolic Gxd081 TP RO 6.8 g/dL 08/21/2015 Comp Metabolic Uph500 GL OB 2.7 g/dL 08/21/2015 Comp Metabolic Knm691 A/ G Ratio 1.5 Ratio 08/21/2015 Comp Metabolic Nmb220 Os mo 277 mOsmo 08/21/2015 Free T4 Xkb641 FREE T4 1.78 ng/dL 08/21/2015 Tsh Ord6 [...] Ord2 RDW 13.9 % 08/21/2015 Quick Strep Rmj0865 Quic k Strep Negative 07/08/2015 Tsh Ord6 hTSH II 0.04 uIU/mL 05/20/2015 Free T4 Iit510 FREE T4 1.50 ng/dL 05/20/2015 Review of [...] over left buttock Full Exam - General 1995 Constitutional general appearance Overall: well developed 09/12/2017 None Full Exam - General 1994 Constitutional general appearance Overall: in no acute distress 09/12/2017 None Full Exam - General 1994 Constitutional general appearance Overall: well nourished 09/12/2017 None Full Exam - General 1995 Eyes conjunctiva/eyelids Overall: conjunctiva clear 09/12/2017 None Full Exam - General 1995 Eyes conjunctiva/eyelids Overall: eyelids normal 09/12/2017 None [...] Procedure Codes Date DESTRUCT PREMALG LESION CPT-4: 22113 01/19/2018 URINALYSIS NONAUTO W /O SCOPE CPT-4: 31340 09/12/2017 TRIAMCINOLONE ACET I [place] NOS CPT-4: J3301 06/14/2017 THER/PROPH/DIAG INJ SC/IM CPT-4: 77082 06/14/2017 PRESCRIP TRANSMIT A ERX SY CPT-4: G8553 06/14/2017 TRIAMCINOLONE ACET I [place] NOS CPT-4: J3301 03/27/2017 THER/PROPH/DIAG INJ SC/IM CPT-4: 43040 12/07/2016 TRIAMCINOLONE ACET I [place] NOS CPT-4: J3301 12/07/2016 THER/PROPH/DIAG INJ SC/IM CPT-4: 21360 11/28/2016 TRIAMCINOLONE ACET I [place] NOS CPT-4: J3301 11/28/2016 Vital Signs Date Vital 04/29/2019 Blood Pressure 1: 144/60 Code: 8480-6 BMI: 36.0 Code: 89174-2 Heart Rate 1: 73 bpm Height: 5'6" SpO2: 98% Weight: 223 lbs 03/21/2019 Blood Pressure 1: 132/64 Code: 8480-6 BMI: 36.2 Code: 42553-0 Heart Rate 1: 76 bpm Height: 5'6" SpO2: 94% Weight: 224 lbs 01/22/2019 Blood Pressure 1: 132/66 Code: 8480-6 BMI: 37.1 Code: 31553-8 Heart Rate 1: 73 bpm Height: 5'6" SpO2: 96% Weight: 230 lbs 11/21/2018 Blood Pressure 1: 120/64 Code: 8480-6 Heart Rate 1: 64 bpm 10/30/2018 Blood Pressure 1: 144/70 Code: 8480-6 BMI: 37.0 Code: 10276-8 Heart Rate 1: 76 bpm Height: 5'6" SpO2: 96% Weight: 229 lbs 06/28/2018 Blood Pressure 1: 110/66 Code: 8480-6 BMI: 37.1 Code: 67575-2 Heart Rate 1: 73 bpm Height: 5'6" SpO2: 98% Weight: 230 lbs 04/04/2018 Blood Pressure 1: 128/76 Code: 8480-6 BMI: 37.9 Code: 27490-9 Heart Rate 1: 86 bpm Height: 5'6" SpO2: 98% Weight: 235 lbs 01/19/2018 Blood Pressure 1: 122/68 Code: 8480-6 Heart Rate 1: 78 bpm Height: 5'6" SpO2: 97% Weight: 01/05/2018 Blood Pressure 1: 138/78 Code: 8480-6 BMI: 38.4 Code: 36131-4 Heart Rate 1: 73 bpm Height: 5'6" SpO2: 95% Weight: 238 lbs 11/29/2017 Blood Pressure 1: 138/80 Code: 8480-6 BMI: 38.7 Code: 21442-9 Heart Rate 1: 71 bpm Height: 5'6" SpO2: 97% Weight: 240 lbs 10/25/2017 Blood Pressure 1: 136/72 Code: 8480-6 BMI: 38.7 Code: 99516-9 Heart Rate 1: 92 bpm Height: 5'6" SpO2: 98% Weight: 240 lbs 09/12/2017 Blood Pressure 1: 132/68 Code: 8480-6 BMI: 39.7 Code: 51066-2 Heart Rate 1: 76 bpm Height: 5'6" SpO2: 98% Weight: 246 lbs 06/14/2017 Blood Pressure 1: 130/80 Code: 8480-6 BMI: 39.4 Code: 22396-6 Heart Rate 1: 73 bpm Height: 5'6" SpO2: 95% Temperature: 36.9 (C ) / 98.5 (F) Weight: 244 lbs 05/10/2017 Blood Pressure 1: 128/68 Code: 8480-6 BMI: 38.7 Code: 83168-8 Heart Rate 1: 69 bpm Height: 5'6" SpO2: 97% Weight: 240 lbs 04/19/2017 Blood Pressure 1: 138/74 Code: 8480-6 BMI: 38.7 Code: 57688-1 Heart Rate 1: 73 bpm Height: 5'6" SpO2: 96% Weight: 240 lbs 03/27/2017 Blood Pressure 1: 142/84 Code: 8480-6 BMI: 38.7 Code: 87682-1 Heart Rate 1: 69 bpm Height: 5'6" SpO2: 97% Weight: 240 lbs 01/26/2017 Blood Pressure 1: 136/68 Code: 8480-6 Heart Rate 1: 64 bpm Height: 5'6" SpO2: 96% Weight: 12/07/2016 Blood Pressure 1: 130/72 Code: 8480-6 BMI: 39.7 Code: 50246-6 Heart Rate 1: 73 bpm Height: 5'6" SpO2: 93% Temperature: 36.8 (C ) / 98.3 (F) Weight: 246 lbs 11/28/2016 Blood Pressure 1: 138/60 Code: 8480-6 BMI: 39.7 Code: 84421-9 Heart Rate 1: 81 bpm Height: 5'6" SpO2: 97% Weight: 246 lbs 11/15/2016 Blood Pressure 1: 134/78 Code: 8480-6 BMI: 39.7 Code: 55846-2 Heart Rate 1: 75 bpm Height: 5'6" SpO2: 93% Temperature: 36.8 (C ) / 98.2 (F) Weight: 246 lbs 10/17/2016 Blood Pressure 1: 120/64 Code: 8480-6 BMI: 38.4 Code: 44047-1 Heart Rate 1: 69 bpm Height: 5'6" SpO2: 98% Temperature: 37.2 (C ) / 98.9 (F) Weight: 238 lbs 09/28/2016 Blood Pressure 1: 158/76 Code: 8480-6 BMI: 39.4 Code: 77515-4 Heart Rate 1: 71 bpm Height: 5'6" SpO2: 97% Weight: 244 lbs 06/29/2016 Blood Pressure 1: 124/60 Code: 8480-6 BMI: 38.7 Code: 97740-7 Heart Rate 1: 71 bpm Height: 5'6" SpO2: 98% Weight: 240 lbs 06/01/2016 Blood Pressure 1: 120/62 Code: 8480-6 BMI: 38.6 Code: 42583-6 Heart Rate 1: 76 bpm Height: 5'6" SpO2: 98% Weight: 239 lbs 05/11/2016 Blood Pressure 1: 140/80 Code: 8480-6 BMI: 38.1 Code: 95948-8 Heart Rate 1: 88 bpm Height: 5'6" SpO2: 97% Weight: 236 lbs 04/05/2016 Blood Pressure 1: 142/80 Code: 8480-6 BMI: 38.4 Code: 59241-1 Heart Rate 1: 96 bpm Height: 5'6" SpO2: 98% Weight: 238 lbs 04/01/2016 Blood Pressure 1: 136/88 Code: 8480-6 BMI: 39.2 Code: 36047-2 Heart Rate 1: 86 bpm Height: 5'6" SpO2: 96% Weight: 243 lbs 01/26/2016 Blood Pressure 1: 124/76 Code: 8480-6 BMI: 39.2 Code: 07270-9 Heart Rate 1: 76 bpm Height: 5'6" SpO2: 97% Weight: 243 lbs 12/21/2015 Blood Pressure 1: 120/64 Code: 8480-6 BMI: 37.0 Code: 49095-2 Heart Rate 1: 98 bpm Height: 5'6" SpO2: 97% Weight: 229 lbs 10/12/2015 Blood Pressure 1: 150/64 Code: 8480-6 BMI: 37.4 Code: 03437-4 Heart Rate 1: 70 bpm Height: 5'6" SpO2: 94% Weight: 232 lbs 08/24/2015 Blood Pressure 1: 128/74 Code: 8480-6 BMI: 36.8 Code: 80853-3 Heart Rate 1: 88 bpm Height: 5'6" SpO2: 94% Temperature: 36.8 (C ) / 98.3 (F) Weight: 228 lbs 06/01/2015 Blood Pressure 1: 134/68 Code: 8480-6 BMI: 36.0 Code: 03390-5 Heart Rate 1: 70 bpm Height: 5'6" SpO2: 98% Weight: 223 lbs 05/21/2015 Blood Pressure 1: 126/72 Code: 8480-6 BMI: 35.2 Code: 67247-0 Heart Rate 1: 63 bpm Height: 5'6" SpO2: 95% Weight: 218 lbs 5 oz 03/26/2015 Blood Pressure 1: 140/62 Code: 8480-6 BMI: 35.3 Code: 44964-7 Heart Rate 1: 68 bpm Height: 5'6" Weight: 219 lbs 03/11/2015 Blood Pressure 1: 130/80 Code: 8480-6 BMI: 34.9 Code: 77915-7 Heart Rate 1: 76 bpm Height: 5'6" Temperature: 37.1 (C ) / 98.7 (F) Weight: 216 lbs 12/11/2014 Blood Pressure 1: 134/62 Code: 8480-6 BMI: 34.2 Code: 56301-7 Heart Rate 1: 72 bpm Height: 5'6" Weight: 212 lbs 09/18/2014 Blood Pressure 1: 148/80 Code: 8480-6 BMI: 34.7 Code: 94254-6 Heart Rate 1: 68 bpm Height: 5'6" Weight: 215 lbs 07/31/2014 Blood Pressure 1: 124/72 Code: 8480-6 BMI: 36.2 Code: 66361-2 Heart Rate 1: 68 bpm Height: 5'6" [...] Severity mi ld 09/28/2016 None 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 09/28/2016 None hypothyroid Onset and Resolution [...] Severity mi ld 06/01/2016 None 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 06/01/2016 None hypothyroid Onset and Resolution [...] and Resolution resolved 04/05/2016 None 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 04/05/2016 None hypothyroid Onset and Resolution [...] a ssociated factors 10/12/2015 None 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 P ATIENT, LEVEL IV Diagnosis: Hypothyroidism, unspecified[ICD10: E03.9] Diagnosis: Changes in skin texture[ICD10: R23.4] Diagnosis: Mild intermittent asthma, uncomplicated[ICD10: J45.20] Lynn Finn MD, [facility] CPT-4: 24070 03/21/2019 ([id number]) [id number] EST. P ATIENT, LEVEL IV Diagnosis: Mild intermittent asthma, uncomplicated[ICD10: J45.20] Diagnosis: Hypothyroidism, unspecified[ICD10: E03.9] Diagnosis: Low back pain[ICD10: M54.5] Lynn Finn MD, [facility] CPT- 4: 66772 01/22/2019 ([id number]) Edgar watkins no charge Diagnosis: Essential (primary) hypertension[ICD10: I10] Damari Finn MD, [facility] CPT-4: 79898 11/21/2018 ([id number]) 89819 EST. P ATIENT, LEVEL IV Diagnosis: Essential (primary) hypertension[ICD10: I10] Diagnosis: Hypothyroidism, unspecified[ICD10: E03.9] Diagnosis: Low back pain[ICD10: M54.5] Lynn Finn MD, [facility] CPT- 4: 77839 10/30/2018 ([id number]) 61024 EST. P ATIENT, LEVEL III Diagnosis: Acute recurrent maxillary sinusitis[ICD10: J01.01] Diagnosis: Other mucopurulent conjunctivitis, left eye[ICD10: H10.022] Diagnosis: Other allergic rhinitis[ICD10: J30.89] Lynn Finn MD, [facility] CPT-4: 71480 06/28/2018 [id number] EST. PATIENT, LEVEL IV Diagnosis: Essential (primary) hypertension[ICD10: I10] Diagnosis: Other specified hypothyroidism[ICD10: E03.8] Diagnosis: Other specified anemias[ICD10: D64.89] Diagnosis: Localized edema[ICD10: R60.0] Mishel Finn MD, [facility] CPT-4: 63523 04/04/2018 ([id number]) 22085 EST. P ATIENT, LEVEL III Diagnosis: Mild persistent asthma, uncomplicated[ICD10: J45.30] Diagnosis: Actinic keratosis[ICD10: L57.0] Lynn Finn MD, [facility] CPT- 4: 02083 01/05/2018 ([id number]) Miscellaneou s no charge Diagnosis: Essential (primary) hypertension[ICD10: I10] Damari Finn MD, [facility] CPT-4: 78094 12/12/2017 [id number] EST. PATIENT, LEVEL III Diagnosis: Essential (primary) hypertension[ICD10: I10] Diagnosis: Atrophy of thyroid (acquired)[ICD10: E03.4] Diagnosis: Low back pain[ICD10: M54.5] Mishel Finn MD, [facility] CPT-4: 00570 11/29/2017 [id number] EST. PATIENT, LEVEL III Diagnosis: Pain in left hip[ICD10: M25.552] Mishel Finn MD, [facility] CPT-4: 34219 10/25/2017 [id number] EST. PATIENT, LEVEL IV Diagnosis: Localized edema[ICD10: R60.0] Mishel Finn MD, [facility] CPT-4: 99050 09/12/2017 [id number] EST. PATIENT, LEVEL IV Diagnosis: Mild persistent asthma with (acute) exacerbation[ICD10: J45.31] Mishel Finn MD, [facility] CPT-4: 81844 06/14/2017 37470 EST. PATIENT, LEVEL III Diagnosis: Localized edema[ICD10: R60.0] Diagnosis: Mild persistent asthma, uncomplicated[ICD10: J45.30] Mishel Finn MD, [facility] CPT-4: 16055 05/10/2017 95599 EST. PATIENT, LEVEL III Diagnosis: Mild persistent asthma with (acute) exacerbation[ICD10: J45.31] Mishel Finn MD, [facility] CPT-4: 51445 04/19/2017 ([id number]) 89104 EST. P ATIENT, LEVEL IV Diagnosis: Contusion of left wrist, initial encounter[ICD10: S60.212A] Diagnosis: Hypothyroidism, unspecified[ICD10: E03.9] Diagnosis: Mild persistent asthma with (acute) exacerbation[ICD10: J45.31] Diagnosis: Low back pain[ICD10: M54.5] Lynn Finn MD, [facility] CPT- 4: 83376 03/27/2017 ([id number]) 16994 EST. P ATIENT, LEVEL IV Diagnosis: Essential (primary) hypertension[ICD10: I10] Diagnosis: Atrophy of thyroid (acquired)[ICD10: E03.4] Diagnosis: Low back pain[ICD10: M54.5] Damari Finn MD, [facility] CPT-4: 92974 01/26/2017 57745 EST. PATIENT, LEVEL III Diagnosis: Other allergic rhinitis[ICD10: J30.89] Diagnosis: Mild persistent asthma with (acute) exacerbation[ICD10: J45.31] Mishel Finn MD, [facility] CPT-4: 06413 12/07/2016 18174 EST. PATIENT, LEVEL III Diagnosis: Mild persistent asthma with (acute) exacerbation[ICD10: J45.31] Mishel Finn MD, [facility] CPT-4: 15695 11/28/2016 48458 EST. PATIENT, LEVEL III Diagnosis: Mild persistent asthma with (acute) exacerbation[ICD10: J45.31] Diagnosis: Acute bronchitis due to other specified organisms[ICD10: J20.8] Mishel Finn MD, [facility] CPT-4: 87536 11/15/2016 06863 EST. PATIENT, LEVEL IV Diagnosis: Other acute sinusitis[ICD10: J01.80] Diagnosis: Other allergic rhinitis[ICD10: J30.89] Diagnosis: Mild persistent asthma with (acute) exacerbation[ICD10: J45.31] Mishel Finn MD, [facility] CPT-4: 91696 10/17/2016 ([id number]) 85794 EST. P ATIENT, LEVEL IV Diagnosis: Essential (primary) hypertension[ICD10: I10] Diagnosis: Low back pain[ICD10: M54.5] Damari Finn MD, [facility] CPT-4: 66371 09/28/2016 89070 EST. PATIENT, LEVEL III Diagnosis: Tinea barbae and tinea capitis[ICD10: B35.0] Diagnosis: Other specified hypothyroidism[ICD10: E03.8] Mishel Finn MD, [facility] CPT-4: 90751 06/29/2016 ([id number]) 65888 EST. P ATIENT, LEVEL IV Diagnosis: Essential (primary) hypertension[ICD10: I10] Diagnosis: Atrophy of thyroid (acquired)[ICD10: E03.4] Diagnosis: Rash and other nonspecific skin eruption[ICD10: R21] Damari Finn MD, [facility] CPT-4: 33624 06/01/2016 ([id number]) 19451 EST. P ATIENT, LEVEL III Diagnosis: Cellulitis of groin[ICD10: L03.314] Damari Finn MD, [facility] CPT- 4: 54128 05/11/2016 ([id number]) 01315 EST. P ATIENT, LEVEL IV Diagnosis: Hypothyroidism, unspecified[ICD10: E03.9] Diagnosis: Candidiasis of vulva and vagina[ICD10: B37.3] Diagnosis: Essential (primary) hypertension[ICD10: I10] Diagnosis: Low back pain[ICD10: M54.5] Lynn Finn MD, [facility] CPT- 4: 84406 04/05/2016 72966 EST. PATIENT, LEVEL III Diagnosis: Other acute sinusitis[ICD10: J01.80] Diagnosis: Rash and other nonspecific skin eruption[ICD10: R21] Mishel Finn MD, [facility] CPT-4: 14338 04/01/2016 ([id number]) 24364 EST. P ATIENT, LEVEL IV Diagnosis: Essential (primary) hypertension[ICD10: I10] Diagnosis: Hypothyroidism, unspecified[ICD10: E03.9] Diagnosis: Low back pain[ICD10: M54.5] Diagnosis: Other obesity due to excess calories[ICD10: E66.09] Lynn Finn MD, [facility] CPT-4: 72493 01/26/2016 17282 EST. PATIENT, LEVEL IV Diagnosis: Essential (primary) hypertension[ICD10: I10] Diagnosis: Cutaneous abscess of face[ICD10: L02.01] Mishel Finn MD, [facility] CPT-4: 18597 12/21/2015 ([id number]) 88504 EST. P ATIENT, LEVEL III Diagnosis: Cutaneous abscess of groin[ICD10: L02.214] Diagnosis: Hypothyroidism, unspecified[ICD10: E03.9] Lynn Finn MD, [facility] CPT-4: 95226 10/12/2015 ([id number]) 89669 EST. P ATIENT, LEVEL III Diagnosis: Essential (primary) hypertension[ICD10: I10] Diagnosis: Hypothyroidism, unspecified[ICD10: E03.9] Diagnosis: Allergic rhinitis, unspecified[ICD10: J30.9] Lynn Finn MD, [facility] CPT-4: 27154 08/24/2015 ([id number]) 35648 EST. P ATIENT, LEVEL III Diagnosis: Skin infection[ICD9: 686.9] Damari Finn MD, [facility] CPT-4: 79645 06/01/2015 ([id number]) 24015 EST. P ATIENT, LEVEL III Diagnosis: Hypothyroidism[ICD9: 244.9] Diagnosis: ESSENTIAL HYPERTENSION[ICD9: 401.9] Damari Finn MD, [facility] CPT- 4: 01995 05/21/2015 ([id number]) 76857 EST. P ATIENT, LEVEL III Diagnosis: Hypothyroidism[ICD9: 244.9] Diagnosis: Fingernail abnormalities[ICD9: 703.8] Lynn Finn MD, [facility] CPT-4: 84669 03/26/2015 ([id number]) 52875 EST. P ATIENT, LEVEL II Diagnosis: Hypothyroidism[ICD9: 244.9] Maritza Finn MD, [facility] CPT-4: 38780 03/11/2015 ([id number]) 77395 EST. P ATIENT, LEVEL IV Diagnosis: ESSENTIAL HYPERTENSION[ICD9: 401.9] Diagnosis: Low back pain[ICD9: 724.2] Diagnosis: Hypothyroidism[ICD9: 244.9] [facility] CPT-4: 11995 12/11/2014 ([id number]) 26864 EST. P ATIENT, LEVEL IV Diagnosis: Hidradenitis suppurativa[ICD9: 705.83] Diagnosis: ESSENTIAL HYPERTENSION[ICD9: 401.9] Diagnosis: Low back pain[ICD9: 724.2] Diagnosis: Lumbar spinal stenosis[ICD9: 724.02] Diagnosis: HYPOTHYROIDISM[ICD9: 244.9] [facility] CPT-4: 65878 09/18/2014 Office outpatient ne w 30 minutes Diagnosis: ESSENTIAL HYPERTENSION[ICD9: 401.9] Diagnosis: Hypothyroidism[ICD9: 244.9] Diagnosis: Low back pain[ICD9: 724.2] [facility] CPT- 4: 68368 07/31/2014 Plan of Care Planned Activity Notes [...] or concerns. 04/29/2019 Appointment: Mishel Balderrama WPtel: [facility] ([facility] Complex 04/29/2019 Patient Education: Patient Medication Summary Completed 04/29/2019 Appointment: Lynn [facility] [phone] [phone] (30 min) Complex 04/23/2019 Visit Plan: Hypothyroidism -patient is having symptoms of over supplementation -check labs today Skin changes-patient used to see Dr Solitario but hasn't see anyone recently -recommend skin check with Dr Yamel boyd- stable- no change in current treatment 03/21/2019 Appointment: [facility] [phone] [phone] (30 min) Complex 03/21/2019 Patient Education: Patient [...] practice. 01/22/2019 Appointment: [facility] [phone] [phone] (30 min) Complex 01/22/2019 Patient Education: Patient [...] indicated 10/30/2018 Appointment: Lynn Arenas WPtel: [phone] [phone] [place] (30 min) Complex 10/30/2018 Patient Education: Patient Medication Summary Completed 10/30/2018 Patient Education: Hypertension Completed 10/30/2018 Patient Education: Back Pain Completed 10/30/2018 Appointment: Lynn Arenas WPtel: [phone] [phone] [place] (30 min) Complex 10/26/2018 Patient Education: Patient Medication Summary Completed 10/23/2018 Appointment: Lynn Arenas WPtel: [phone] [phone] [place] (15 min) Moderate 10/19/2018 Appointment: Damari Finn WPtel: [phone] [facility] [place] (15 min) Moderate 09/19/2018 Visit Plan: [...] times daily. 06/28/2018 Appointment: Lynn Arenas WPtel: [phone] [phone] [place] (30 min) Complex 06/28/2018 Patient Education: [...] to monitor. 04/04/2018 Appointment: Mishel Balderrama WPtel: [address] [place], [place] [address] (15 min) Moderate 04/04/2018 Patient Education: Patient Medication Summary Completed 04/04/2018 Visit Plan: Wound Instructions - Pt was instructed to keep the wound clean, wash with antibacterial soap, use triple antibiotic ointment, call if redness, pustular drainage, or any other acute concerns. 01/19/2018 Appointment: Lynn Arenas WPtel: [phone] [phone] (30 min) Complex 01/19/2018 [...] concerns. 01/05/2018 Appointment: [facility] [phone] [phone] (30 min) Complex 01/05/2018 Patient Education: Patient [...] or does not improve. 11/29/2017 Appointment: [facility]hel [facility]el[facility] [phone] [facility] [place] (30 min) Complex 11/29/2017 Patient [...] not improve. 10/25/2017 Appointment: [facility] Balderrama [facility] [phone] [facility] [place] (30 min) Complex 10/25/2017 Patient [...] peripheral edema. 09/12/2017 Appointment: Mis[facility] Balderrama [facility] [phone] [facility] [place] (30 min) Complex 09/12/2017 Patient Education: Patient Medication Summary Completed 09/12/2017 Appointment: Lynn Arenas [facility] [phone] [phone] [place] (30 min) Complex 06/27/2017 Visit Plan: [...] changes. 06/14/2017 Appointment: Mis[facility] Balderrama [facility] [phone] [facility] [place] (15 min) Moderate 06/14/2017 Patient [...] monitor for acute changes 05/10/2017 Appointment: Mishel Bal[facility]ramatel[facility] [phone] [facility] [place] (15 min) Moderate 05/10/2017 Patient [...] changes. 04/19/2017 Appointment: Mishel Balderrama [facility]Ptel[facility] [phone] [facility] [place] (15 min) Moderate 04/19/2017 Patient Education: [...] on previous levels of control. Low back qqba-taaenmu-jsngcz tramadol for prn use 03/27/2017 Appointment: Lynn Arenas WPtel: [phone] (30 min) Complex 03/27/2017 Patient Education: Patient Medication Summary Completed 03/27/2017 Visit Plan: Hypertension - well cat escamillaed - continue with current medications, continue with [...] not improve. 01/26/2017 Appointment: Damari Finn WPtel: [facility] (15 min) Moderate 01/26/2017 Patient Education: [...] or concerns. 12/07/2016 Appointment: Mishel Balderrama WPtel: [facility] (15 min) Moderate 12/07/2016 Patient Education: [...] symptoms. 11/28/2016 Appointment: Mishel Balderrama WPtel: [phone] [facility] (15 min) Moderate 11/28/2016 Patient Education: Patient Medication Summary Completed 11/28/2016 Appointment: Mishel Balderrama WPtel: Formerly named [facility] (15 min) Moderate 11/24/2016 Visit Plan: Bronchitis [...] changes. 11/15/2016 Appointment: Mishel Balderrama WPtel: [phone] [facility] (30 min) Complex 11/15/2016 [...] changes. 10/17/2016 Appointment: Mis[facility] Balderrama [facility] [phone] [facility] ([facility] min) Complex 10/17/2016 Patient Education: [...] tylenol 09/28/2016 Appointment: [facility] [phone] [facility] ([facility] min) Moderate 09/28/2016 Patient Education: [...] control. 06/29/2016 Appointment: Lynn Arenas WPtel: [phone] [phone] (15 min) Moderate 06/29/2016 [...] fluconazole 06/01/2016 Appointment: Damari Finn WPtel: [phone] [facility] (15 min) Moderate 06/01/2016 Patient Education: Patient Medication Summary Completed 06/01/2016 Patient Education: Obesity Completed 06/01/2016 Visit Plan: Cellulitis - continue w ith oral antibiotics as previously directed, return to clinic as previously directed, call for acute change in symptoms, worsening redness, warmth, discharge. 05/11/2016 Appointment: [facility]el[facility] [phone] [facility] (15 min) Moderate 05/11/2016 Patient Education: [...] concerns. 04/01/2016 Appointment: Lynn Arenas WPtel: Formerly named [phone] (30 min) Complex 04/01/2016 Patient Education: Patient Medication Summary Completed 04/01/2016 Patient Education: Obesity Completed 04/01/2016 Appointment: Lynn Arenas WPtel: [phone] [phone] (30 min) Complex 03/29/2016 Visit Plan: Hypertension [...] levels of control. Low back pain-refill tramadol Hmriy-tqssqjkadm-iiyiguef resolved 01/26/2016 Appointment: Lynn A[facility]Ptel[facility] [phone] [phone] (30 min) Complex 01/26/2016 Patient Education: Patient Medication Summary Completed 01/26/2016 Patient Education: Obesity Completed 01/26/2016 Care Plan: BMI Above normal followup RADHA F-MGMT EDUC & TRAIN 1 PT Pending 01/26/2016 Care Plan: Referral Order SNOMED-CT : [id number] Pending 01/07/2016 Appointment: Lynn Arenas [facility]Ptel[facility] [phone] [phone] [place] (15 min) Moderate 12/24/2015 Visit Plan: [...] improving. 06/01/2015 Appointment: Damari Finn WPtel: [facility] (15 min) Moderate 06/01/2015 Patient Education: [...] tramadol 12/11/2014 Appointment: Damari Finn WPtel: Formerly named [facility] [facility] 12/11/2014 Patient Education: Patient Medication Summary Completed 12/11/2014 Patient Education: Hypertension Completed 12/11/2014 Appointment: Damari Finn WPtel: [address] [place], [place] [address] [place] [address] follow up 11/27/2014 Visit Plan: Hidradenitis Suppurativ [...] to get her back MRI done at [facility] in [place] as that is where her specialist will be once we get her an appt with one of the local Neurosurgeons. 09/18/2014 Appointment: Damari Finn WPtel: [facility] Follow up 09/18/2014 Patient Education: Patient [...] scheduled 07/31/2014 Appointment: Lynn [facility]el[facility] [phone] [phone] New Patient 07/31/2014 Patient Education: Patient Medication Summary Completed 07/31/2014 Referral: Artur Daugherty she w ill be calling and making her appt Initiated Referral: Artur Daugherty Referral Initiated Instructions Comment . Edema - pt has bee n [...] worsening or does not improve. Declined Procedure: ([id number]) FLU VAC NO PRSV 4 JUSTYNA 3 YRS+; Declined Reason: refused Physical therapy at [facility] . Hypertension - well controlled - oleg [...] . 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 Low back vxzm-ytcgegk-nnadow tramadol for prn use . Brittle fingernail [...] or with any questions or concerns. . Edema - pt has bee n [...] levels of control. Low back pain-refill tramadol Pbuve-xbzuugrfhf-gmalpque resolved . Hypertension - wel l controlled [...] to get her back MRI done at [facility] in [place] as that is where her specialist will [...]
--- OUTSIDE RECORDS SUMMARY | 2020-02-20 18:46 | XMS REPORT | CCD ---
Author Author Ewa Arenas Organization Damari Finn MD, 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 Unknown Has never used illegal drugs 014 Allergies, Adverse Reactions, Alerts Substance Reaction Codes Entered Date Inactivated Date Status * NO KNOWN FOOD BEVERLY RGIES Unknown 07/31/2014 No Inactive Date Active bactrim hives, rash RxNorm: 392392 04/05/2016 No Inactive Date Active Past Medical [...] Fill Instructions prednisone 20 mg tablet RxNorm: 398027 1 Tablet(s) PO BID x 2 days, then 1 pill daily x 3 days, then 1/2 pill every other day x 3 doses. 04/29/2019 No Stop Date Active tramadol 50 mg tablet RxNorm: 015524 1 Tablet(s) PO Q6 PRN as needed for pain 04/09/2019 05/07/2019 Ac tive levothyroxine 125 mc g tablet RxNorm: 389671 1 Tablet(s) PO daily TAKE ONE TABLET BY MOUTH DAILY ON AN EMPTY STOMACH 03/25/2019 06/16/2020 Active lorazepam 1 mg tablet RxNorm: 667571 Tablet(s) TAKE TWO TABLETS BY MOUTH AT B EDTIME NEEDED FOR INSOMNIA AND ONE TABLET DAILY NEEDED ANXIETY 03/15/2019 05/13/2019 Active tramadol 50 mg tablet RxNorm: 343811 1 Tablet(s) PO Q4 PRN as needed for pain 03/15/2019 04/08/2019 In active tramadol 50 mg tablet RxNorm: 823776 1 Tablet(s) PO Q4 PRN as needed for pain 02/20/2019 03/14/2019 In active lorazepam 1 mg tablet RxNorm: 593432 Tablet(s) TAKE TWO TABLETS BY MOUTH AT B EDTIME NEEDED FOR INSOMNIA AND ONE TABLET DAILY NEEDED ANXIETY 01/04/2019 03/03/2019 Inactive tramadol 50 mg tablet RxNorm: 821001 1 Tablet(s) PO Q4 PRN as needed for pain 12/05/2018 01/12/2019 In active Keflex 500 mg capsule RxNorm: 856056 1 Capsule(s) PO TID 12/05/2018 12/11/2018 Inactive ciprofloxacin 0.3 % eye drops RxNorm: 724982 INSTILL TWO DROPS TO THE AFFECTED EYE(S) THREE TIMES A DAY 11/23/2018 12/25/2018 Inactive ProAir HFA 90 mcg/ac tuation aerosol inhaler RxNorm: 9181807 1-2 Puff(s) INH Q4 P RN INHALE 1 TO 2 PUFFS FOUR TIMES A DAY NEEDED FOR ASTHMA 10/30/2018 01/27/2019 Inactive levothyroxine 137 mc g tablet RxNorm: 981398 1 Tablet(s) PO daily TAKE ONE TABLET BY MOUTH DAILY ON AN EMPTY STOMACH 10/30/2018 03/24/2019 Inactive tramadol 50 mg tablet RxNorm: 312876 1 Tablet(s) PO Q4 PRN as needed for pain 10/29/2018 12/04/2018 In active levothyroxine 125 mc g tablet RxNorm: 297219 1 Tablet(s) PO daily TAKE ONE TABLET BY MOUTH DAILY ON AN EMPTY STOMACH 09/06/2018 10/29/2018 Inactive lorazepam 1 mg tablet RxNorm: 046344 Tablet(s) TAKE TWO TABLETS BY MOUTH AT B EDTIME NEEDED FOR INSOMNIA AND ONE TABLET DAILY NEEDED ANXIETY 09/06/2018 11/02/2018 Inactive tramadol 50 mg tablet RxNorm: 493383 1 Tablet(s) PO Q4 PRN as needed for pain 09/06/2018 10/15/2018 In active tramadol 50 mg tablet RxNorm: 797023 1 Tablet(s) PO Q4 PRN as needed for pain 07/06/2018 08/14/2018 In active ciprofloxacin 0.3 % eye drops RxNorm: 139978 2 Drop(s) ophthalmic (eye) TID 06/28/2018 07/07/2018 In active lorazepam 1 mg tablet RxNorm: 629295 Tablet(s) TAKE TWO TABLETS BY MOUTH AT B EDTIME NEEDED FOR INSOMNIA AND ONE TABLET DAILY NEEDED ANXIETY 06/28/2018 08/26/2018 Inactive doxycycline hyclate 100 mg tablet RxNorm: 1332692 1 Tablet(s) PO BID 06/28/2018 07/04/2018 Inactive tramadol 50 mg tablet RxNorm: 209466 1 Tablet(s) PO Q4 PRN as needed for pain 06/13/2018 07/05/2018 In active lorazepam 1 mg tablet RxNorm: 080479 Tablet(s) TAKE TWO TABLETS BY MOUTH AT B EDTIME NEEDED FOR INSOMNIA AND ONE TABLET DAILY NEEDED ANXIETY 05/23/2018 06/27/2018 Inactive tramadol 50 mg tablet RxNorm: 702769 1 Tablet(s) PO Q4 PRN as needed for pain 05/23/2018 06/12/2018 In active levothyroxine 125 mc g tablet RxNorm: 714171 Tablet(s) TAKE ONE TA BLET BY MOUTH DAILY ON AN EMPTY STOMACH 05/23/2018 09/05/2018 Inactive tramadol 50 mg tablet RxNorm: 032526 1 Tablet(s) PO Q4 PRN as needed for pain 05/17/2018 05/22/2018 In active levothyroxine 125 mc g tablet RxNorm: 802888 TAKE ONE TABLET BY MO UT DAILY 05/15/2018 06/27/2018 In active levothyroxine 125 mc g tablet RxNorm: 732803 TAKE ONE TABLET BY MO UT DAILY 05/15/2018 06/27/2018 In active tramadol 50 mg tablet RxNorm: 377663 1 Tablet(s) PO Q4 PRN as needed for pain 04/30/2018 05/16/2018 In active Advair Diskus 100 mc g-50 mcg/dose powder for inhalation RxNorm: 5098843 1 Puff(s) INH BID 04/06/2018 01/21/2019 Inactive Symbicort 80 mcg-4.5 mcg/actuation HFA aerosol inhaler RxNorm: 7516136 2 Puff(s) INH BID 04/06/2018 01/21/2019 Inactive Advair Diskus 250 mc g-50 mcg/dose powder for inhalation RxNorm: 3157880 1 Puff(s) INH BID 04/05/2018 09/01/2018 Inactive Zyrtec 10 mg tablet RxNorm: 8239428 1 Tablet(s) PO daily x1 week then PRN 04/05/2018 08/02/2018 In active lisinopril 20 mg-hyd rochlorothiazide 25 mg tablet RxNorm: 318220 Tablet(s) TAKE ONE TABLET BY MOUTH DAILY 04/05/2018 10/29/2018 Inactive Zyrtec 10 mg tablet RxNorm: 0051434 1 Tablet(s) PO daily 04/04/2018 05/03/2018 Inactive tramadol 50 mg tablet RxNorm: 122396 1 Tablet(s) PO Q4 PRN as needed for pain 03/13/2018 04/21/2018 In active lorazepam 1 mg tablet RxNorm: 592259 Tablet(s) TAKE TWO TABLETS BY MOUTH AT B EDTIME NEEDED FOR INSOMNIA AND ONE TABLET DAILY NEEDED ANXIETY 03/02/2018 04/30/2018 Inactive levothyroxine 125 mc g tablet RxNorm: 373561 1 Tablet(s) PO daily 02/06/2018 05/06/2018 Inactive levothyroxine 125 mc g tablet RxNorm: 523445 TAKE ONE TABLET BY [facility] DAILY ON AN EMPTY STOMACH 02/06/2018 05/22/2018 Inactive tramadol 50 mg tablet RxNorm: 713528 1 Tablet(s) PO Q4 PRN as needed for pain 01/26/2018 03/06/2018 In active lorazepam 1 mg tablet RxNorm: 055977 Tablet(s) TAKE TWO TABLETS BY MOUTH AT B EDTIME NEEDED FOR INSOMNIA AND ONE TABLET DAILY NEEDED ANXIETY 01/23/2018 06/27/2018 Inactive Symbicort 80 mcg-4.5 mcg/actuation HFA aerosol inhaler RxNorm: 6817721 INH 01/05/2018 06/27/2018 In active tramadol 50 mg tablet RxNorm: 334338 1 Tablet(s) PO Q4 PRN as needed for pain 01/04/2018 01/25/2018 In active Advair Diskus 250 mc g-50 mcg/dose powder for inhalation RxNorm: 6841607 1 Puff(s) INH BID 11/29/2017 03/28/2018 Inactive hydrochlorothiazide 12.5 mg tablet RxNorm: 624689 1 Tablet(s) PO daily 11/29/2017 12/28/2017 In active tramadol 50 mg tablet RxNorm: 149945 1 Tablet(s) PO Q4 PRN as needed for pain 11/23/2017 01/01/2018 In active tramadol 50 mg tablet RxNorm: 375230 1 Tablet(s) PO Q4 PRN as needed for pain 10/06/2017 11/14/2017 In active lorazepam 1 mg tablet RxNorm: 651613 Tablet(s) TAKE TWO TABLETS BY MOUTH AT B EDTIME NEEDED FOR INSOMNIA AND ONE TABLET DAILY NEEDED ANXIETY 09/12/2017 06/27/2018 Inactive tramadol 50 mg tablet RxNorm: 535450 1 Tablet(s) PO Q4 PRN as needed for pain 09/12/2017 10/05/2017 In active tramadol 50 mg tablet RxNorm: 382814 1 Tablet(s) PO Q4 PRN as needed for pain 08/15/2017 09/11/2017 In active tramadol 50 mg tablet RxNorm: 233290 1 Tablet(s) PO Q4 PRN as needed for pain 06/29/2017 08/07/2017 In active ProAir HFA 90 mcg/ac tuation aerosol inhaler RxNorm: 6797999 INHALE 1 TO 2 PUFFS FOUR TIMES A DAY NEEDED FOR ASTHMA 06/14/2017 11/10/2017 Inactive prednisone 20 mg tablet RxNorm: 890345 1 Tablet(s) PO BID x 2 days, then 1 pill daily x 3 days, then 1/2 pill every other day x 3 doses. 06/14/2017 09/11/2017 Inactive Kenalog 40 mg/mL madhavi pension for injection RxNorm: 3409581 1 Milliliter(s) Inj 06/14/2017 06/14/2017 In active Zyrtec 10 mg tablet RxNorm: 9891947 1 Tablet(s) PO daily 06/14/2017 07/13/2017 Inactive tramadol 50 mg tablet RxNorm: 494554 1 Tablet(s) PO Q4 PRN as needed for pain 06/08/2017 06/27/2017 In active [SAVINGS FOR UNINSURED PATIENTS -- BIN:0 15291, PCN: ASPROD1, Group: [id number], ID# [id number], Process claim through [employer], for questions: . THIS IS NOT INSURANCE.] tramadol 50 mg tablet RxNorm: 384899 1 Tablet(s) PO Q4 PRN as needed for pain 05/16/2017 06/04/2017 In active [SAVINGS FOR UNINSURED PATIENTS -- BIN:0 12111, PCN: ASPROD1, Group: [id number], ID# [id number], Process claim through [employer], for questions: . THIS IS NOT INSURANCE.] lorazepam 1 mg tablet RxNorm: 208460 Tablet(s) TAKE TWO TABLETS BY MOUTH AT B EDTIME NEEDED FOR INSOMNIA AND ONE TABLET DAILY NEEDED ANXIETY 05/16/2017 08/13/2017 Inactive Lasix 20 mg tablet RxNorm: 536592 1 Tablet(s) PO daily 05/10/2017 05/09/2017 Inactive Lasix 20 mg tablet RxNorm: 891362 1 Tablet(s) PO daily 05/10/2017 05/12/2017 Inactive potassium chloride E R 10 mEq tablet,extended release RxNorm: 976949 1 Tablet(s) PO daily while on the lasix 05/10/2017 05/09/2017 Inactive potassium chloride E R 10 mEq tablet,extended release RxNorm: 507512 1 Tablet(s) PO daily while on the lasix 05/10/2017 05/12/2017 Inactive prednisone 20 mg tablet RxNorm: 267071 1 Tablet(s) PO BID x 2 days, then 1 pill daily x 3 days, then 1/2 pill every other day x 3 doses. 04/19/2017 06/13/2017 Inactive Zithromax Z-Linus 250 mg tablet RxNorm: 505366 1 Tablet(s) PO UD 04/13/2017 06/28/2017 Inactive prednisone 20 mg tablet RxNorm: 424970 1 Tablet(s) PO BID 04/13/2017 04/17/2017 Inactive levothyroxine 125 mc g tablet RxNorm: 261043 1 Tablet(s) PO daily 04/11/2017 10/07/2017 Inactive tramadol 50 mg tablet RxNorm: 842768 1 Tablet(s) PO Q4 PRN as needed for pain 03/27/2017 04/15/2017 In active [SAVINGS FOR UNINSURED PATIENTS -- BIN:0 81006, PCN: ASPROD1, Group: [id number], ID# [id number], Process claim through MedImp[employer], for questions: . THIS IS NOT INSURANCE.] Kenalog 40 mg/mL madhavi pension for injection RxNorm: 4275654 1 Milliliter(s) Inj 03/27/2017 03/27/2017 In active tramadol 50 mg tablet RxNorm: 294524 1 Tablet(s) PO Q4H as needed for pain 03/09/2017 03/26/2017 In active [SAVINGS FOR UNINSURED PATIENTS -- BIN:0 71943, PCN: ASPROD1, Group: [id number], ID# [id number], Process claim through MedImp[employer], for questions: . THIS IS NOT INSURANCE.] lisinopril 20 mg-hyd rochlorothiazide 25 mg tablet RxNorm: 364852 TAKE ONE TABLET BY MOUTH DAILY 01/29/2017 11/21/2017 Inactive lorazepam 1 mg tablet RxNorm: 081963 Tablet(s) TAKE TWO TABLETS BY MOUTH AT B EDTIME NEEDED FOR INSOMNIA AND ONE TABLET DAILY NEEDED ANXIETY 01/05/2017 04/04/2017 Inactive tramadol 50 mg tablet RxNorm: 912347 1 Tablet(s) PO Q4H as needed for pain 12/07/2016 01/13/2017 In active [SAVINGS FOR UNINSURED PATIENTS -- BIN:0 82458, PCN: ASPROD1, Group: [id number], ID# [id number], Process claim through MedImp[employer], for questions: . THIS IS NOT INSURANCE.] Kenalog 40 mg/mL madhavi pension for injection RxNorm: 4952967 Milliliter(s) Inj 12/07/2016 12/07/2016 In active nystatin 100,000 uni t/mL oral suspension RxNorm: 920118 4 Milliliter(s) PO QI D 12/07/2016 12/11/2016 In active Francia-D 12 Hour 60 mg-120 mg tablet,extended release RxNorm: 421531 1 Tablet(s) PO BID 12/07/2016 01/11/2017 Inactive lorazepam 1 mg tablet RxNorm: 323327 Tablet(s) TAKE TWO TABLETS BY MOUTH AT B EDTIME AND ONE TABLET DAILY NEEDED 12/07/2016 01/04/2017 Inactive (Response to an electronic controlled substance refill request - RxReferenceNumber: [id number]) albuterol sulfate 2. 5 mg/3 mL (0.083 %) solution for nebulization RxNorm: 268929 3 Milliliter(s) INH TID 11/29/2016 11/28/2016 Inactive prednisone 10 mg tablet RxNorm: 650298 Tablet(s) PO UD 11/29/2016 12/05/2016 Inactive 6,5,4,3,2,1 doxycycline hyclate 100 mg tablet RxNorm: 164320 1 Tablet(s) PO BID 11/29/2016 12/04/2016 Inactive albuterol sulfate 2. 5 mg/3 mL (0.083 %) solution for nebulization RxNorm: 657110 3 Milliliter(s) INH TID 11/29/2016 12/03/2016 Inactive Kenalog 40 mg/mL madhavi pension for injection RxNorm: 4519730 Milliliter(s) Inj 11/28/2016 11/28/2016 In active tramadol 50 mg tablet RxNorm: 586851 1 Tablet(s) PO Q4H as needed for pain 11/15/2016 12/06/2016 In active [SAVINGS FOR UNINSURED PATIENTS -- BIN:0 25635, PCN: ASPROD1, Group: [id number], ID# [id number], Process claim through 99 [employer], for questions: . THIS IS NOT INSURANCE.] prednisone 20 mg tablet RxNorm: 235338 2 Tablet(s) PO daily 11/15/2016 11/19/2016 Inactive Advair Diskus 100 mc g-50 mcg/dose powder for inhalation RxNorm: 0285260 1 Puff(s) INH BID 11/15/2016 06/11/2017 Inactive ProAir HFA 90 mcg/ac tuation aerosol inhaler RxNorm: 520498 INHALE 1 TO 2 PUFFS F OUR TIMES A DAY NEEDED FOR ASTHMA 11/15/2016 04/13/2017 Inactive Zithromax Z-Linus 250 mg tablet RxNorm: 366527 1 Tablet(s) PO UD 11/15/2016 11/27/2016 Inactive Zyrtec 10 mg tablet RxNorm: 1858474 1 Tablet(s) PO daily 10/17/2016 11/15/2016 Inactive Keflex 500 mg capsule RxNorm: 192177 1 Capsule(s) PO TID 10/17/2016 10/23/2016 Inactive prednisone 10 mg tablet RxNorm: 526028 Tablet(s) PO UD 10/17/2016 11/28/2016 Inactive 6,5,4,3,2,1 tramadol 50 mg tablet RxNorm: 129797 1 Tablet(s) PO Q4H as needed for pain 09/28/2016 11/06/2016 In active [SAVINGS FOR UNINSURED PATIENTS -- BIN:0 00245, PCN: ASPROD1, Group: [id number], ID# [id number], Process claim through 99 [employer], for questions: . THIS IS NOT INSURANCE.] ProAir HFA 90 mcg/ac tuation aerosol inhaler RxNorm: 002636 INHALE 1 TO 2 PUFFS F OUR TIMES A DAY NEEDED FOR ASTHMA 09/15/2016 11/14/2016 Inactive doxycycline hyclate 100 mg tablet RxNorm: 715105 1 Tablet(s) PO BID 09/15/2016 09/24/2016 Inactive doxycycline hyclate 100 mg tablet RxNorm: 650577 1 Tablet(s) PO BID 07/29/2016 08/07/2016 Inactive tramadol 50 mg tablet RxNorm: 181466 1 Tablet(s) PO Q4H as needed for pain 07/29/2016 09/06/2016 In active [SAVINGS FOR UNINSURED PATIENTS -- BIN:0 18959, PCN: ASPROD1, Group: [id number], ID# [id number], Process claim through 99 [employer], for questions: . THIS IS NOT INSURANCE.] lorazepam 1 mg tablet RxNorm: 946453 Tablet(s) TAKE TWO TABLETS BY MOUTH AT B EDTIME AND ONE TABLET DAILY NEEDED 07/29/2016 10/26/2016 Inactive (Response to an electronic controlled substance refill request - RxReferenceNumber: [id number]) levothyroxine 125 mc g tablet RxNorm: 236381 1 Tablet(s) PO daily 06/29/2016 06/29/2016 Inactive levothyroxine 137 mc g tablet RxNorm: 557332 1 Tablet(s) PO daily 06/29/2016 12/25/2016 Inactive ketoconazole 2 % sha mpoo RxNorm: 636209 1 Application TOP BID 06/29/2016 07/03/2016 Inactive tramadol 50 mg tablet RxNorm: 122581 1 Tablet(s) PO Q4H as needed for pain 06/16/2016 07/25/2016 In active [SAVINGS FOR UNINSURED PATIENTS -- BIN:0 36265, PCN: ASPROD1, Group: [id number], ID# [id number], Process claim through 99 [employer], for questions: . THIS IS NOT INSURANCE.] Bactroban 2 % topica l ointment RxNorm: 349867 APPLY TO AFFECTED ARE A(S) TWO TIMES A DAY 06/16/2016 04/16/2017 Inactive fluconazole 150 mg t ablet RxNorm: 628332 1 Tablet(s) PO daily 06/01/2016 06/05/2016 Inactive gentamicin 0.1 % top ical ointment RxNorm: 343219 1 Application TOP QID 05/12/2016 05/25/2016 In active metronidazole 500 mg tablet RxNorm: 498413 1 Tablet(s) PO TID 05/11/2016 05/24/2016 Inactive gentamicin 0.1 % top ical ointment RxNorm: 400004 1 Application TOP QID 05/11/2016 05/11/2016 In active doxycycline hyclate 100 mg tablet RxNorm: 417956 1 Tablet(s) PO BID 05/11/2016 05/24/2016 Inactive lorazepam 1 mg tablet RxNorm: 969961 Tablet(s) TAKE TWO TABLETS BY MOUTH AT B EDTIME AND ONE TABLET DAILY NEEDED 05/02/2016 07/28/2016 Inactive (Response to an electronic controlled substance refill request - RxReferenceNumber: [id number]) Diflucan 150 mg tablet RxNorm: 571916 1 Tablet(s) PO daily x5 days then 1 x we ekly x 4 weeks. 05/02/2016 04/10/2017 Inactive Diflucan 150 mg tablet RxNorm: 889336 1 Tablet(s) PO every other day 04/19/2016 04/28/2016 In active Diflucan 150 mg tablet RxNorm: 447384 1 Tablet(s) PO every other day 04/19/2016 04/18/2016 In active Diflucan 150 mg tablet RxNorm: 302250 1 Tablet(s) PO daily 04/05/2016 04/11/2016 Inactive mupirocin 2 % topica l ointment RxNorm: 163753 1 Application TOP BID 04/05/2016 05/04/2016 Inactive tramadol 50 mg tablet RxNorm: 642121 1 Tablet(s) PO Q4H as needed for pain 04/05/2016 05/14/2016 In active [SAVINGS FOR UNINSURED PATIENTS -- BIN:0 90003, PCN: ASPROD1, Group: [id number], ID# [id number], Process claim through 99 [employer], for questions: . THIS IS NOT INSURANCE.] prednisone 10 mg tablet RxNorm: 501027 Tablet(s) PO UD 04/01/2016 09/26/2016 Inactive 6,5,4,3,2,1 levothyroxine 137 mc g tablet RxNorm: 070401 1 Tablet(s) PO daily 03/21/2016 03/20/2016 Inactive levothyroxine 137 mc g tablet RxNorm: 168485 1 Tablet(s) PO daily 03/21/2016 06/28/2016 Inactive Advair Diskus 100 mc g-50 mcg/dose powder for inhalation RxNorm: 9667348 1 Puff(s) INH BID 01/26/2016 05/24/2016 Inactive tramadol 50 mg tablet RxNorm: 387822 1 Tablet(s) PO Q4H as needed for pain 01/26/2016 03/05/2016 In active [SAVINGS FOR UNINSURED PATIENTS -- BIN:0 42170, PCN: ASPROD1, Group: [id number], ID# [id number], Process claim through 99 F[employer], for questions: . THIS IS NOT INSURANCE.] Bactroban 2 % topica l ointment RxNorm: 782880 APPLY TO AFFECTED ARE A(S) TWO TIMES A DAY 12/22/2015 12/31/2015 Inactive Bactrim DS 800 mg-16 0 mg tablet RxNorm: 954883 TAKE ONE TABLET BY [facility] TWICE A DAY 12/22/2015 04/18/2016 In active Bactrim DS 800 mg-16 0 mg tablet RxNorm: 966199 1 Tablet(s) PO BID 12/21/2015 01/21/2019 Inactive lisinopril 20 mg-hyd rochlorothiazide 25 mg tablet RxNorm: 569018 1 Tablet(s) PO daily 12/21/2015 06/17/2016 Inactive [SAVINGS FOR UNINSURED PATIENTS -- BIN:0 45806, PCN: ASPROD1, Group: [id number], ID# [id number], Process claim through 99 F[employer], for questions: . THIS IS NOT INSURANCE.] tramadol 50 mg tablet RxNorm: 537907 1 Tablet(s) PO Q4H as needed for pain 12/03/2015 01/11/2016 In active [SAVINGS FOR UNINSURED PATIENTS -- BIN:0 26048, PCN: ASPROD1, Group: [id number], ID# [id number], Process claim through 99 F[employer], for questions: . THIS IS NOT INSURANCE.] lorazepam 1 mg tablet RxNorm: 935525 Tablet(s) TAKE TWO TABLETS BY MOUTH AT B EDTIME AND ONE TABLET DAILY NEEDED 11/26/2015 06/27/2018 Inactive (Response to an electronic controlled substance refill request - RxReferenceNumber: [id number]) Bactrim DS 800 mg-16 0 mg tablet RxNorm: 523194 1 Tablet(s) PO BID 11/25/2015 12/04/2015 Inactive levothyroxine 150 mc g tablet RxNorm: 515516 1 Tablet(s) PO daily 11/25/2015 03/20/2016 Inactive Bactroban 2 % topica l ointment RxNorm: 604172 1 Application TOP BID 10/12/2015 10/21/2015 Inactive Bactrim DS 800 mg-16 0 mg tablet RxNorm: 018976 1 Tablet(s) PO BID 09/07/2015 09/06/2015 Inactive Bactrim DS 800 mg-16 0 mg tablet RxNorm: 427788 1 Tablet(s) PO BID 09/07/2015 09/16/2015 Inactive lorazepam 1 mg tablet RxNorm: 619238 Tablet(s) TAKE TWO TABLETS BY MOUTH AT B EDTIME AND ONE TABLET DAILY NEEDED 08/28/2015 11/24/2015 Inactive (Response to an electronic controlled substance refill request - RxReferenceNumber: [id number]) levothyroxine 175 mc g tablet RxNorm: 100741 1 Tablet(s) PO daily 08/24/2015 11/24/2015 Inactive tramadol 50 mg tablet RxNorm: 754599 1 Tablet(s) PO Q4H as needed for pain 08/24/2015 09/11/2017 In active [SAVINGS FOR UNINSURED PATIENTS -- BIN:0 90260, PCN: ASPROD1, Group: [id number], ID# [id number], Process claim through 99 F[employer], for questions: . THIS IS NOT INSURANCE.] lisinopril 20 mg-hyd rochlorothiazide 25 mg tablet RxNorm: 718867 1 Tablet(s) PO daily TAKE 1 TABLET BY MOUTH DAILY 08/24/2015 06/27/2018 Inactive ProAir HFA 90 mcg/ac tuation aerosol inhaler RxNorm: 849350 1-2 Puff(s) INH PRN I NHALE ONE TO TWO PUFFS BY MOUTH FOUR TIMES A DAY NEEDED FOR ASTHMA 08/24/2015 12/01/2015 In active ProAir HFA 90 mcg/ac tuation aerosol inhaler RxNorm: 0762206 INHALE ONE TO TWO PU FFS BY MOUTH FOUR TIMES A DAY NEEDED FOR ASTHMA 08/17/2015 08/23/2015 Inactive Advair Diskus 250 mc g-50 mcg/dose powder for inhalation RxNorm: 5899608 1 Puff(s) INH BID 07/20/2015 07/19/2015 Inactive Advair Diskus 250 mc g-50 mcg/dose powder for inhalation RxNorm: 4053739 1 Puff(s) INH BID 07/20/2015 11/16/2015 Inactive tramadol 50 mg tablet RxNorm: 129138 1 Tablet(s) PO Q4H as needed for pain 07/10/2015 08/17/2015 In active [SAVINGS FOR UNINSURED PATIENTS -- BIN:0 24874, PCN: ASPROD1, Group: [id number], ID# [id number], Process claim through 99 F[employer], for questions: . THIS IS NOT INSURANCE.] Zithromax Z-Linus 250 mg tablet RxNorm: 456236 1 Tablet(s) PO UD 07/10/2015 01/18/2016 Inactive Keflex 500 mg capsule RxNorm: 264415 1 Capsule(s) PO TID 06/01/2015 06/07/2015 Inactive mupirocin 2 % topica l ointment RxNorm: 061037 1 Application TOP TID 06/01/2015 06/10/2015 Inactive lisinopril 20 mg-hyd rochlorothiazide 25 mg tablet RxNorm: 536881 TAKE 1 TABLET BY MOUT H DAILY 05/30/2015 08/23/2015 Inactive lisinopril 20 mg-hyd rochlorothiazide 25 mg tablet RxNorm: 180587 1 Tablet(s) PO daily 05/29/2015 11/24/2015 Inactive [SAVINGS FOR UNINSURED PATIENTS -- BIN:0 17004, PCN: ASPROD1, Group: [id number], ID# [id number], Process claim through 99 F[employer], for questions: . THIS IS NOT INSURANCE.] lorazepam 1 mg tablet RxNorm: 762054 Tablet(s) TAKE TWO TABLETS BY MOUTH AT B EDTIME AND ONE TABLET DAILY NEEDED 04/17/2015 07/13/2015 Inactive (Response to an electronic controlled substance refill request - RxReferenceNumber: [id number]) levothyroxine 200 mc g tablet RxNorm: 452970 1 Tablet(s) PO daily 03/12/2015 08/23/2015 Inactive [SAVINGS FOR UNINSURED PATIENTS -- BIN:0 93029, PCN: ASPROD1, Group: [id number], ID# [id number], Process claim through 99 F[employer], for questions: . THIS IS NOT INSURANCE.] lisinopril 20 mg-hyd rochlorothiazide 25 mg tablet RxNorm: 605925 1 Tablet(s) PO daily 03/11/2015 05/28/2015 Inactive [SAVINGS FOR UNINSURED PATIENTS -- BIN:0 68331, PCN: ASPROD1, Group: [id number], ID# [id number], Process claim through 99 Fahrenheit, for questions: . THIS IS NOT INSURANCE.] levothyroxine 175 mc g tablet RxNorm: 418897 1 Tablet(s) PO daily 03/09/2015 03/11/2015 Inactive recheck blood in 3 months- THIS IS CORRE CT DOSAGE levothyroxine 175 mc g tablet RxNorm: 988475 1 Tablet(s) PO daily 03/09/2015 03/08/2015 Inactive recheck blood in 3 months levothyroxine 150 mc g tablet RxNorm: 244831 1 Tablet(s) PO daily 03/09/2015 03/08/2015 Inactive recheck blood in 3 months lorazepam 1 mg tablet RxNorm: 925870 TAKE TWO TABLETS BY MOUTH AT BEDTIME AND ONE TABLET DAILY NEEDED 12/25/2014 01/22/2015 Inactive (Response to an electronic controlled substance refill request - RxReferenceNumber: [id number]) lorazepam 1 mg tablet RxNorm: 833298 Tablet(s) TAKE TWO TABLETS BY MOUTH EVER Y NIGHT AT BEDTIME AND TAKE ONE TABLET BY MOUTH DAILY NEEDED 12/23/2014 12/25/2014 Inactive (Response to an electronic controlled [place] refill [place] - RxReferenceNumber: [id number]) levothyroxine 150 mc g tablet RxNorm: 494159 1 Tablet(s) PO daily 12/12/2014 03/08/2015 Inactive recheck blood in 3 months Diflucan 150 mg tablet RxNorm: 772181 1 Tablet(s) PO every other day (start af ter finished with Cipro) 11/17/2014 08/23/2015 Inactive tramadol 50 mg tablet RxNorm: 054368 1 Tablet(s) PO Q4H as needed for pain 11/10/2014 12/17/2014 In active [SAVINGS FOR UNINSURED PATIENTS -- BIN:0 24455, PCN: ASPROD1, Group: [id number], ID# [id number], Process claim through MedImp[employer], for questions: . THIS IS NOT INSURANCE.] Cipro 500 mg tablet RxNorm: 438467 1 Tablet(s) PO BID 10/23/2014 10/29/2014 Inactive Flagyl 500 mg tablet RxNorm: 665340 1 Tablet(s) PO TID 10/23/2014 10/29/2014 Inactive Cipro 500 mg tablet RxNorm: 650593 1 Tablet(s) PO BID 10/23/2014 10/22/2014 Inactive Flagyl 500 mg tablet RxNorm: 939900 1 Tablet(s) PO TID 10/23/2014 10/22/2014 Inactive Diflucan 150 mg tablet RxNorm: 839240 1 Tablet(s) PO every other day (start af ter finished with Cipro) 10/23/2014 11/16/2014 Inactive lorazepam 1 mg tablet RxNorm: 860910 TAKE TWO TABLETS BY MOUTH EVERY NIGHT AT BEDTIME AND TAKE ONE TABLET BY MOUTH DAILY NEEDED 10/21/2014 10/21/2014 Inactive (Response to an electronic controlled [place] refill request - RxReferenceNumber: [id number]) lorazepam 1 mg tablet RxNorm: 203179 TAKE TWO TABLETS BY MOUTH EVERY NIGHT AT BEDTIME AND TAKE ONE TABLET BY MOUTH DAILY NEEDED 10/21/2014 11/18/2014 Inactive (Response to an electronic [place] - RxReferenceNumber: [id number]) lorazepam 1 mg tablet RxNorm: 673865 Tablet(s) TAKE TWO TABLETS BY MOUTH AT B EDTIME, ALSO TAKE ONE TABLET BY MOUTH DAILY NEEDED 10/13/2014 10/21/2014 Inactive (Res ponse to an electronic controlled substance refill request - RxReferenceNumber: [id number]) ProAir HFA 90 mcg/ac tuation aerosol inhaler RxNorm: 5542945 1-2 inhale INH QID a s needed ASTHMA 10/13/2014 12/26/2014 Inactive ProAir HFA 90 mcg/ac tuation aerosol inhaler RxNorm: 5420180 1-2 inhale INH QID a s needed ASTHMA 09/18/2014 10/12/2014 Inactive meloxicam 7.5 mg tablet RxNorm: 922206 1 Tablet(s) PO daily 09/18/2014 03/10/2015 Inactive [SAVINGS FOR UNINSURED PATIENTS -- BIN:0 66465, PCN: ASPROD1, Group: [id number], ID# [id number], Process claim through MedImpact, for questions: . THIS IS NOT INSURANCE.] sulfamethoxazole 800 mg-trimethoprim 160 mg tablet RxNorm: 948405 1 Tablet(s) PO BID 09/18/2014 10/07/2014 Inactive levothyroxine 175 mc g tablet RxNorm: 262868 1 Tablet(s) PO daily 09/17/2014 12/11/2014 Inactive levothyroxine 175 mc g tablet RxNorm: 066440 1 Tablet(s) PO daily 09/17/2014 09/16/2014 Inactive lorazepam 1 mg tablet RxNorm: 632472 Tablet(s) TAKE TWO TABLETS BY MOUTH AT B EDTIME, ALSO TAKE ONE TABLET BY MOUTH DAILY NEEDED 09/12/2014 10/11/2014 Inactive (Res ponse to an electronic controlled substance refill request - RxReferenceNumber: [id number]) lorazepam 1 mg tablet RxNorm: 145249 TAKE TWO TABLETS BY MOUTH AT BEDTIME, AL SO TAKE ONE TABLET BY MOUTH DAILY NEEDED 09/08/2014 09/11/2014 Inactive (Res ponse to an electronic controlled substance refill request - RxReferenceNumber: [id number]) meloxicam 7.5 mg tablet RxNorm: 059150 1 Tablet(s) PO daily 09/01/2014 09/17/2014 Inactive [SAVINGS FOR UNINSURED PATIENTS -- BIN:0 77553, PCN: ASPROD1, Group: [id number], ID# [id number], Process claim through MedImpact, for questions: . THIS IS NOT INSURANCE.] lisinopril 20 mg-hyd rochlorothiazide 25 mg tablet RxNorm: 233863 1 Tablet(s) PO daily 09/01/2014 12/29/2014 Inactive [SAVINGS FOR UNINSURED PATIENTS -- BIN:0 90005, PCN: ASPROD1, Group: AME08, ID# [id number], Process claim through MedImpact, for questions: . THIS IS NOT INSURANCE.] tramadol 50 mg tablet RxNorm: 772953 1 Tablet(s) PO Q4H as needed for pain 08/20/2014 11/07/2014 In active [SAVINGS FOR UNINSURED PATIENTS -- BIN:0 09093, PCN: ASPROD1, Group: [id number], ID# [id number], Process claim through MedImpact, for questions: . THIS IS NOT INSURANCE.] meloxicam 7.5 mg tablet RxNorm: 793793 1 Tablet(s) PO daily 08/14/2014 08/31/2014 Inactive [SAVINGS FOR UNINSURED PATIENTS -- BIN:0 39734, PCN: ASPROD1, Group: [id number], ID# [id number], Process claim through MedImpact, for questions: . THIS IS NOT INSURANCE.] lorazepam 1 mg tablet RxNorm: 975848 2 Tablet(s) PO QHS and 1 tab qd PRN 08/01/2014 09/08/2014 In active [SAVINGS FOR UNINSURED PATIENTS -- BIN:0 41107, PCN: ASPROD1, Group: AME08, ID# [id number], Process claim through MedImpact, for questions: . THIS IS NOT INSURANCE.] levothyroxine 200 mc g tablet RxNorm: 619668 1 Tablet(s) PO daily 07/31/2014 09/16/2014 Inactive [SAVINGS FOR UNINSURED PATIENTS -- BIN:0 89876, PCN: ASPROD1, Group: AME08, ID# [id number], Process claim through MedImpact, for questions: . THIS IS NOT INSURANCE.] lorazepam 1 mg tablet RxNorm: 045015 2 Tablet(s) PO QHS and 1 tab qd PRN No Start Date 07/31/2014 Inactive Phenergan VC-Codeine oral RxNorm: 483023 oral No S tart Date 11/26/2017 Inactive meloxicam 7.5 mg tablet RxNorm: 180377 1 Tablet(s) PO daily No Start Date 08/13/2014 Inactive lisinopril 20 mg-hyd rochlorothiazide 25 mg tablet RxNorm: 638913 1 Tablet(s) PO daily No Start Date 08/31/2014 Inactive levothyroxine 200 mc g tablet RxNorm: 457471 1 Tablet(s) PO daily No Start Date 07/30/2014 Inactive Diflucan 150 mg tablet RxNorm: 125459 1 Tablet(s) PO every other day No Start Date 10/22/2014 Inactive Zithromax Z-Linus 250 mg tablet RxNorm: 923319 1 Tablet(s) PO UD No Start Date 07/09/2015 Inactive tramadol 50 mg tablet RxNorm: 973211 1 Tablet(s) PO Q6 as needed No Start Date 08/19/2014 Inactive Medication Administered Medication Codes Instruc tions Start Date Status Kenalog 40 mg/mL suspension for injection RxNorm: 4644230 1Milliliter 06/14/2017 N o longer Active Kenalog 40 mg/mL suspension for injection RxNorm: 8361709 1Milliliter 03/27/2017 N o longer Active Kenalog 40 mg/mL suspension for injection RxNorm: 4405675 Milliliter 12/07/2016 No longer Active Kenalog 40 mg/mL suspension for injection RxNorm: 0601472 Milliliter 11/28/2016 No longer Active Immunizations Vaccine [...] 29.7 pg 03/21/2019 Cbc With Differential Ord2 [place]% 10.5 % 03/21/2019 Cbc With Differential Ord2 [...] 1.51 K/ul 03/21/2019 Cbc With Differential Ord2 [place] ABS# 0.6 K/ul 03/21/2019 Cbc With Differential Ord2 Eos ABS# 0.2 K/ul 03/21/2019 Cbc With Differential Ord2 Baso ABS# 0.0 K/ul 03/21/2019 Free T4 Hrl141 FREE T4 1.52 ng/dL 03/21/2019 Comp Metabolic Hnn654 NA 141 mEq/L 03/21/2019 Comp Metabolic Eos853 K 3.9 mEq/L 03/21/2019 Comp Metabolic Klu855 CL 107 mEq/L 03/21/2019 Comp Metabolic Jvr095 CO2 26.0 mEq/L 03/21/2019 Comp Metabolic Yqs920 AN ION GAP 12 03/21/2019 Comp Metabolic Fem248 GL UCOSE 111 mg/dL 03/21/2019 Comp Metabolic Rko830 Cr eat 0.8 mg/dL 03/21/2019 Comp Metabolic Nhk264 eG FR 77 ml/min/1.73m2 03/21 Comp Metabolic Cbj765 BUN 14 mg/dL 03/21/2019 Comp Metabolic Xvk713 B/ C Ratio 18.2 Ratio 03/21/2019 Comp Metabolic Toz382 CA LCIUM 9.2 mg/dL 03/21/2019 Comp Metabolic Eya184 AL K PHOS 68 U/L 03/21/2019 Comp Metabolic Yae371 T(SGOT) 11 U/L 03/21/2019 Comp Metabolic Qms275 AL T(SGPT) 8 U/L 03/21/2019 Comp Metabolic Aht192 BI LI T 0.5 mg/dL 03/21/2019 Comp Metabolic Gca257 AL BUMIN 4.1 g/dL 03/21/2019 Comp Metabolic Tjj740 TP RO 6.3 g/dL 03/21/2019 Comp Metabolic Pgs620 GL OB 2.2 g/dL 03/21/2019 Comp Metabolic Lko639 A/ G Ratio 1.9 Ratio 03/21/2019 Comp Metabolic Ujh166 Os mo 282 mOsmo 03/21/2019 Tsh Ord6 TSH (3rd IS) 1.49 uIU/mL 01/21/2019 Free T4 Oyw422 FREE T4 1.15 ng/dL 01/21/2019 Lipid Ord30 CHOL 231 mg/dL 10/24/2018 Lipid Ord30 HDL 56.0 mg/dl 10/24/2018 Lipid Ord30 TRIG 71 mg/dL 10/24/2018 Lipid Ord30 LDL 161 mg/dL 10/24/2018 Lipid Ord30 C/HDL 4.1 Ratio 10/24/2018 Comp Metabolic Rim016 NA 141 mEq/L 10/24/2018 Comp Metabolic Xwj720 K 3.7 mEq/L 10/24/2018 Comp Metabolic Jxe905 CL 103 mEq/L 10/24/2018 Comp Metabolic Gee857 CO2 30.0 mEq/L 10/24/2018 Comp Metabolic Zyt609 AN ION GAP 12 10/24/2018 Comp Metabolic Cpc270 GL UCOSE 98 mg/dL 10/24/2018 Comp Metabolic Ppy918 Cr eat 0.8 mg/dL 10/24/2018 Comp Metabolic Dbk902 eG FR 71 ml/min/1.73m2 10/24 Comp Metabolic Iax235 BUN 12 mg/dL 10/24/2018 Comp Metabolic Nbb276 B/ C Ratio 14.5 Ratio 10/24/2018 Comp Metabolic Fnn034 CA LCIUM 9.2 mg/dL 10/24/2018 Comp Metabolic Ztd154 AL K PHOS 76 U/L 10/24/2018 Comp Metabolic Lft064 T(SGOT) 12 U/L 10/24/2018 Comp Metabolic Vpu674 AL T(SGPT) 9 U/L 10/24/2018 Comp Metabolic Tdt527 BI LI T 0.5 mg/dL 10/24/2018 Comp Metabolic Cpo325 AL BUMIN 4.3 g/dL 10/24/2018 Comp Metabolic Iwn145 TP RO 6.5 g/dL 10/24/2018 Comp Metabolic Qyw631 GL OB 2.2 g/dL 10/24/2018 Comp Metabolic Vqt058 A/ G Ratio 2.0 Ratio 10/24/2018 Comp Metabolic Wmp152 Os mo 281 mOsmo 10/24/2018 Free T4 Gny000 FREE T4 0.76 ng/dL 10/24/2018 Cbc With [...] 30.5 pg 10/24/2018 Cbc With Differential Ord2 [place]% 8.4 % 10/24/2018 Cbc With Differential Ord2 [...] 1.71 K/ul 10/24/2018 Cbc With Differential Ord2 [place] ABS# 0.4 K/ul 10/24/2018 Cbc With Differential [...] 30.0 pg 04/04/2018 Cbc With Differential Ord2 [place]% 10.9 % 04/04/2018 Cbc With Differential Ord2 [...] 1.42 K/ul 04/04/2018 Cbc With Differential Ord2 [place] ABS# 0.6 K/ul 04/04/2018 Cbc With Differential Ord2 Eos ABS# 0.1 K/ul 04/04/2018 Cbc With Differential Ord2 Baso ABS# 0.0 K/ul 04/04/2018 Free T4 Evq038 FREE T4 1.25 ng/dL 04/04/2018 Tsh Ord6 [...] 30.2 pg 11/28/2017 Cbc With Differential Ord2 [place]% 10.1 % 11/28/2017 Cbc With Differential Ord2 [...] 1.33 K/ul 11/28/2017 Cbc With Differential Ord2 [place] ABS# 0.5 K/ul 11/28/2017 Cbc With Differential Ord2 Eos ABS# 0.1 K/ul 11/28/2017 Cbc With Differential Ord2 Baso ABS# 0.0 K/ul 11/28/2017 Free T4 Yjf279 FREE T4 1.43 ng/dL 11/28/2017 Lipid Ord30 CHOL 186 mg/dL 11/28/2017 Lipid Ord30 HDL 54.0 mg/dl 11/28/2017 Lipid Ord30 TRIG 59 mg/dL 11/28/2017 Lipid Ord30 LDL 120 mg/dL 11/28/2017 Lipid Ord30 C/HDL 3.4 Ratio 11/28/2017 Comp Metabolic Whr315 NA 141 mEq/L 11/28/2017 Comp Metabolic Suj144 K 4.0 mEq/L 11/28/2017 Comp Metabolic Ucr193 CL 105 mEq/L 11/28/2017 Comp Metabolic Thf428 CO2 29.0 mEq/L 11/28/2017 Comp Metabolic Ygv174 AN ION GAP 11 11/28/2017 Comp Metabolic Aws128 GL UCOSE 91 mg/dL 11/28/2017 Comp Metabolic Bai655 Cr eat 0.8 mg/dL 11/28/2017 Comp Metabolic Wcy049 eG FR 74 ml/min/1.73m2 11/28 Comp Metabolic Xce047 BUN 15 mg/dL 11/28/2017 Comp Metabolic Zuu703 B/ C Ratio 18.8 Ratio 11/28/2017 Comp Metabolic Icu607 CA LCIUM 8.6 mg/dL 11/28/2017 Comp Metabolic Dyj753 AL K PHOS 76 U/L 11/28/2017 Comp Metabolic Wez255 T(SGOT) 10 U/L 11/28/2017 Comp Metabolic Hmw882 AL T(SGPT) 8 U/L 11/28/2017 Comp Metabolic Opq193 BI LI T 0.5 mg/dL 11/28/2017 Comp Metabolic Gfd990 AL BUMIN 4.0 g/dL 11/28/2017 Comp Metabolic Erb740 TP RO 6.1 g/dL 11/28/2017 Comp Metabolic Fdi109 GL OB 2.1 g/dL 11/28/2017 Comp Metabolic Qdf075 A/ G Ratio 1.9 Ratio 11/28/2017 Comp Metabolic Aaz004 Os mo 282 mOsmo 11/28/2017 Tsh Ord6 TSH (3rd IS) 3.31 uIU/mL 11/28/2017 Tsh Ord6 hTSH II 1.45 uIU/mL 03/27/2017 Free T4 Uil182 FREE T4 1.23 ng/dL 03/27/2017 Comp Metabolic Nvk647 NA 140 mEq/L 09/28/2016 Comp Metabolic Jwp190 K 3.9 mEq/L 09/28/2016 Comp Metabolic Vpy132 CL 104 mEq/L 09/28/2016 Comp Metabolic Xwt809 CO2 28.0 mEq/L 09/28/2016 Comp Metabolic Ezn343 AN ION GAP 12 09/28/2016 Comp Metabolic Xbt283 GL UCOSE 97 mg/dL 09/28/2016 Comp Metabolic Qja625 Cr eat 0.8 mg/dL 09/28/2016 Comp Metabolic Bjs664 eG FR 79 ml/min/1.73m2 09/28 Comp Metabolic Pwx609 BUN 13 mg/dL 09/28/2016 Comp Metabolic Maz683 B/ C Ratio 17.1 Ratio 09/28/2016 Comp Metabolic Hmz619 CA LCIUM 8.9 mg/dL 09/28/2016 Comp Metabolic Uqv593 AL K PHOS 100 U/L 09/28/2016 Comp Metabolic Udq115 T(SGOT) 12 U/L 09/28/2016 Comp Metabolic Gmm478 AL T(SGPT) 9 U/L 09/28/2016 Comp Metabolic Bki962 BI LI T 0.4 mg/dL 09/28/2016 Comp Metabolic Msq242 AL BUMIN 4.1 g/dL 09/28/2016 Comp Metabolic Nwk745 TP RO 6.6 g/dL 09/28/2016 Comp Metabolic Xdl544 GL OB 2.5 g/dL 09/28/2016 Comp Metabolic Fhx502 A/ G Ratio 1.6 Ratio 09/28/2016 Comp Metabolic Ojs110 Os mo 279 mOsmo 09/28/2016 Lipid Ord30 [...] 28.8 pg 09/28/2016 Cbc With Differential Ord2 [place]% 7.2 % 09/28/2016 Cbc With Differential Ord2 [...] 1.41 K/ul 09/28/2016 Cbc With Differential Ord2 [place] ABS# 0.5 K/ul 09/28/2016 Cbc With Differential Ord2 Eos ABS# 0.2 K/ul 09/28/2016 Cbc With Differential Ord2 Baso ABS# 0.0 K/ul 09/28/2016 Free T4 Zwx165 FREE T4 1.43 ng/dL 09/28/2016 Tsh Ord6 hTSH II 0.52 uIU/mL 09/28/2016 Tsh Ord6 hTSH II 0.47 uIU/mL 06/16/2016 Comp Metabolic Xkr865 NA 139 mEq/L 06/16/2016 Comp Metabolic Ykf826 K 4.3 mEq/L 06/16/2016 Comp Metabolic Nsp298 CL 105 mEq/L 06/16/2016 Comp Metabolic Fsz900 CO2 30.0 mEq/L 06/16/2016 Comp Metabolic Jyg318 AN ION GAP 8 06/16/2016 Comp Metabolic Kvy926 GL UCOSE 90 mg/dL 06/16/2016 Comp Metabolic Ile679 Cr eat 0.7 mg/dL 06/16/2016 Comp Metabolic Hpa505 eG FR 91 ml/min/1.73m2 06/16 Comp Metabolic Cfr032 BUN 15 mg/dL 06/16/2016 Comp Metabolic Mrg348 B/ C Ratio 22.4 Ratio 06/16/2016 Comp Metabolic Djz985 CA LCIUM 8.8 mg/dL 06/16/2016 Comp Metabolic Lmu802 AL K PHOS 79 U/L 06/16/2016 Comp Metabolic Ztf189 T(SGOT) 13 U/L 06/16/2016 Comp Metabolic Oym139 AL T(SGPT) 11 U/L 06/16/2016 Comp Metabolic Aab537 BI LI T 0.5 mg/dL 06/16/2016 Comp Metabolic Sdr194 AL BUMIN 3.9 g/dL 06/16/2016 Comp Metabolic Gmc360 TP RO 6.1 g/dL 06/16/2016 Comp Metabolic Jdu308 GL OB 2.2 g/dL 06/16/2016 Comp Metabolic Yxn911 A/ G Ratio 1.8 Ratio 06/16/2016 Comp Metabolic Cqy515 Os mo 278 mOsmo 06/16/2016 Lipid Ord30 [...] 28.9 pg 06/16/2016 Cbc With Differential Ord2 [place]% 8.1 % 06/16/2016 Cbc With Differential Ord2 [...] 1.70 K/ul 06/16/2016 Cbc With Differential Ord2 [place] ABS# 0.4 K/ul 06/16/2016 Cbc With Differential Ord2 Eos ABS# 0.2 K/ul 06/16/2016 Cbc With Differential Ord2 Baso ABS# 0.0 K/ul 06/16/2016 Free T4 Clp140 FREE T4 1.42 ng/dL 06/16/2016 Free T4 Apc795 FREE T4 1.34 ng/dL 03/04/2016 Tsh Ord6 hTSH II 0.56 uIU/mL 03/04/2016 Tsh Ord6 hTSH II 0.98 uIU/mL 01/27/2016 Free T4 Qxe957 FREE T4 1.19 ng/dL 01/27/2016 Free T4 Jyr385 FREE T4 1.69 ng/dL 11/23/2015 Tsh Ord6 hTSH II 0.08 uIU/mL 11/23/2015 Lipid Ord30 CHOL 185 mg/dL 08/21/2015 Lipid Ord30 HDL 50.0 mg/dl 08/21/2015 Lipid Ord30 TRIG 88 mg/dL 08/21/2015 Lipid Ord30 LDL 117 mg/dL 08/21/2015 Lipid Ord30 C/HDL 3.7 Ratio 08/21/2015 Comp Metabolic Lrw312 NA 139 mEq/L 08/21/2015 Comp Metabolic Qta354 K 4.3 mEq/L 08/21/2015 Comp Metabolic Atl256 CL 102 mEq/L 08/21/2015 Comp Metabolic Dbn726 CO2 27.0 mEq/L 08/21/2015 Comp Metabolic Dlc557 AN ION GAP 14 08/21/2015 Comp Metabolic Fwn225 GL UCOSE 89 mg/dL 08/21/2015 Comp Metabolic Miz591 Cr eat 0.7 mg/dL 08/21/2015 Comp Metabolic Yeu230 eG FR 85 ml/min/1.73m2 08/21 Comp Metabolic Vck541 BUN 14 mg/dL 08/21/2015 Comp Metabolic Hiz916 B/ C Ratio 19.7 Ratio 08/21/2015 Comp Metabolic Zsa239 CA LCIUM 9.5 mg/dL 08/21/2015 Comp Metabolic Gyv161 AL K PHOS 123 U/L 08/21/2015 Comp Metabolic Ncs132 T(SGOT) 13 U/L 08/21/2015 Comp Metabolic Mss412 AL T(SGPT) 10 U/L 08/21/2015 Comp Metabolic Smz935 BI LI T 0.4 mg/dL 08/21/2015 Comp Metabolic Msj581 AL BUMIN 4.1 g/dL 08/21/2015 Comp Metabolic Jod846 TP RO 6.8 g/dL 08/21/2015 Comp Metabolic Grm230 GL OB 2.7 g/dL 08/21/2015 Comp Metabolic Tpy656 A/ G Ratio 1.5 Ratio 08/21/2015 Comp Metabolic Ywr370 Os mo 277 mOsmo 08/21/2015 Free T4 Tjn430 FREE T4 1.78 ng/dL 08/21/2015 Tsh Ord6 [...] Ord2 RDW 13.9 % 08/21/2015 Quick Strep Vvo2631 Quic k Strep Negative 07/08/2015 Tsh Ord6 hTSH II 0.04 uIU/mL 05/20/2015 Free T4 Vpt948 FREE T4 1.50 ng/dL 05/20/2015 Review of [...] normal 09/12/2017 None Full Exam - General 1995 Eyes conjunctiva/eyelids Overall: cornea clear 09/12/2017 None [...] Procedure Codes Date DESTRUCT PREMALG LESION CPT-4: 73491 01/19/2018 URINALYSIS NONAUTO W /O SCOPE CPT-4: 48804 09/12/2017 TRIAMCINOLONE ACET I [place] NOS CPT-4: J3301 06/14/2017 THER/PROPH/DIAG INJ SC/IM CPT-4: 48837 06/14/2017 PRESCRIP TRANSMIT A ERX SY CPT-4: G8553 06/14/2017 TRIAMCINOLONE ACET I [place] NOS CPT-4: J3301 03/27/2017 THER/PROPH/DIAG INJ SC/IM CPT-4: 30037 12/07/2016 TRIAMCINOLONE ACET I [place] NOS CPT-4: J3301 12/07/2016 THER/PROPH/DIAG INJ SC/IM CPT-4: 21492 11/28/2016 TRIAMCINOLONE ACET I [place] NOS CPT-4: J3301 11/28/2016 Vital Signs Date Vital 04/29/2019 Blood Pressure 1: 144/60 Code: 8480-6 BMI: 36.0 Code: 25468-5 Heart Rate 1: 73 bpm Height: 5'6" SpO2: 98% Weight: 223 lbs 03/21/2019 Blood Pressure 1: 132/64 Code: 8480-6 BMI: 36.2 Code: 52383-6 Heart Rate 1: 76 bpm Height: 5'6" SpO2: 94% Weight: 224 lbs 01/22/2019 Blood Pressure 1: 132/66 Code: 8480-6 BMI: 37.1 Code: 60230-4 Heart Rate 1: 73 bpm Height: 5'6" SpO2: 96% Weight: 230 lbs 11/21/2018 Blood Pressure 1: 120/64 Code: 8480-6 Heart Rate 1: 64 bpm 10/30/2018 Blood Pressure 1: 144/70 Code: 8480-6 BMI: 37.0 Code: 60062-3 Heart Rate 1: 76 bpm Height: 5'6" SpO2: 96% Weight: 229 lbs 06/28/2018 Blood Pressure 1: 110/66 Code: 8480-6 BMI: 37.1 Code: 56569-8 Heart Rate 1: 73 bpm Height: 5'6" SpO2: 98% Weight: 230 lbs 04/04/2018 Blood Pressure 1: 128/76 Code: 8480-6 BMI: 37.9 Code: 58996-6 Heart Rate 1: 86 bpm Height: 5'6" SpO2: 98% Weight: 235 lbs 01/19/2018 Blood Pressure 1: 122/68 Code: 8480-6 Heart Rate 1: 78 bpm Height: 5'6" SpO2: 97% Weight: 01/05/2018 Blood Pressure 1: 138/78 Code: 8480-6 BMI: 38.4 Code: 94742-1 Heart Rate 1: 73 bpm Height: 5'6" SpO2: 95% Weight: 238 lbs 11/29/2017 Blood Pressure 1: 138/80 Code: 8480-6 BMI: 38.7 Code: 75998-7 Heart Rate 1: 71 bpm Height: 5'6" SpO2: 97% Weight: 240 lbs 10/25/2017 Blood Pressure 1: 136/72 Code: 8480-6 BMI: 38.7 Code: 77046-7 Heart Rate 1: 92 bpm Height: 5'6" SpO2: 98% Weight: 240 lbs 09/12/2017 Blood Pressure 1: 132/68 Code: 8480-6 BMI: 39.7 Code: 84051-9 Heart Rate 1: 76 bpm Height: 5'6" SpO2: 98% Weight: 246 lbs 06/14/2017 Blood Pressure 1: 130/80 Code: 8480-6 BMI: 39.4 Code: 19815-1 Heart Rate 1: 73 bpm Height: 5'6" SpO2: 95% Temperature: 36.9 (C ) / 98.5 (F) Weight: 244 lbs 05/10/2017 Blood Pressure 1: 128/68 Code: 8480-6 BMI: 38.7 Code: 25331-4 Heart Rate 1: 69 bpm Height: 5'6" SpO2: 97% Weight: 240 lbs 04/19/2017 Blood Pressure 1: 138/74 Code: 8480-6 BMI: 38.7 Code: 66655-1 Heart Rate 1: 73 bpm Height: 5'6" SpO2: 96% Weight: 240 lbs 03/27/2017 Blood Pressure 1: 142/84 Code: 8480-6 BMI: 38.7 Code: 94620-6 Heart Rate 1: 69 bpm Height: 5'6" SpO2: 97% Weight: 240 lbs 01/26/2017 Blood Pressure 1: 136/68 Code: 8480-6 Heart Rate 1: 64 bpm Height: 5'6" SpO2: 96% Weight: 12/07/2016 Blood Pressure 1: 130/72 Code: 8480-6 BMI: 39.7 Code: 52031-9 Heart Rate 1: 73 bpm Height: 5'6" SpO2: 93% Temperature: 36.8 (C ) / 98.3 (F) Weight: 246 lbs 11/28/2016 Blood Pressure 1: 138/60 Code: 8480-6 BMI: 39.7 Code: 52358-8 Heart Rate 1: 81 bpm Height: 5'6" SpO2: 97% Weight: 246 lbs 11/15/2016 Blood Pressure 1: 134/78 Code: 8480-6 BMI: 39.7 Code: 63202-5 Heart Rate 1: 75 bpm Height: 5'6" SpO2: 93% Temperature: 36.8 (C ) / 98.2 (F) Weight: 246 lbs 10/17/2016 Blood Pressure 1: 120/64 Code: 8480-6 BMI: 38.4 Code: 11484-0 Heart Rate 1: 69 bpm Height: 5'6" SpO2: 98% Temperature: 37.2 (C ) / 98.9 (F) Weight: 238 lbs 09/28/2016 Blood Pressure 1: 158/76 Code: 8480-6 BMI: 39.4 Code: 32573-9 Heart Rate 1: 71 bpm Height: 5'6" SpO2: 97% Weight: 244 lbs 06/29/2016 Blood Pressure 1: 124/60 Code: 8480-6 BMI: 38.7 Code: 03203-9 Heart Rate 1: 71 bpm Height: 5'6" SpO2: 98% Weight: 240 lbs 06/01/2016 Blood Pressure 1: 120/62 Code: 8480-6 BMI: 38.6 Code: 06097-8 Heart Rate 1: 76 bpm Height: 5'6" SpO2: 98% Weight: 239 lbs 05/11/2016 Blood Pressure 1: 140/80 Code: 8480-6 BMI: 38.1 Code: 19273-5 Heart Rate 1: 88 bpm Height: 5'6" SpO2: 97% Weight: 236 lbs 04/05/2016 Blood Pressure 1: 142/80 Code: 8480-6 BMI: 38.4 Code: 22778-4 Heart Rate 1: 96 bpm Height: 5'6" SpO2: 98% Weight: 238 lbs 04/01/2016 Blood Pressure 1: 136/88 Code: 8480-6 BMI: 39.2 Code: 67621-2 Heart Rate 1: 86 bpm Height: 5'6" SpO2: 96% Weight: 243 lbs 01/26/2016 Blood Pressure 1: 124/76 Code: 8480-6 BMI: 39.2 Code: 76388-1 Heart Rate 1: 76 bpm Height: 5'6" SpO2: 97% Weight: 243 lbs 12/21/2015 Blood Pressure 1: 120/64 Code: 8480-6 BMI: 37.0 Code: 84554-6 Heart Rate 1: 98 bpm Height: 5'6" SpO2: 97% Weight: 229 lbs 10/12/2015 Blood Pressure 1: 150/64 Code: 8480-6 BMI: 37.4 Code: 83587-4 Heart Rate 1: 70 bpm Height: 5'6" SpO2: 94% Weight: 232 lbs 08/24/2015 Blood Pressure 1: 128/74 Code: 8480-6 BMI: 36.8 Code: 55473-1 Heart Rate 1: 88 bpm Height: 5'6" SpO2: 94% Temperature: 36.8 (C ) / 98.3 (F) Weight: 228 lbs 06/01/2015 Blood Pressure 1: 134/68 Code: 8480-6 BMI: 36.0 Code: 80894-0 Heart Rate 1: 70 bpm Height: 5'6" SpO2: 98% Weight: 223 lbs 05/21/2015 Blood Pressure 1: 126/72 Code: 8480-6 BMI: 35.2 Code: 58379-0 Heart Rate 1: 63 bpm Height: 5'6" SpO2: 95% Weight: 218 lbs 5 oz 03/26/2015 Blood Pressure 1: 140/62 Code: 8480-6 BMI: 35.3 Code: 74095-0 Heart Rate 1: 68 bpm Height: 5'6" Weight: 219 lbs 03/11/2015 Blood Pressure 1: 130/80 Code: 8480-6 BMI: 34.9 Code: 51402-5 Heart Rate 1: 76 bpm Height: 5'6" Temperature: 37.1 (C ) / 98.7 (F) Weight: 216 lbs 12/11/2014 Blood Pressure 1: 134/62 Code: 8480-6 BMI: 34.2 Code: 91585-4 Heart Rate 1: 72 bpm Height: 5'6" Weight: 212 lbs 09/18/2014 Blood Pressure 1: 148/80 Code: 8480-6 BMI: 34.7 Code: 83780-8 Heart Rate 1: 68 bpm Height: 5'6" Weight: 215 lbs 07/31/2014 Blood Pressure 1: 124/72 Code: 8480-6 BMI: 36.2 Code: 19673-9 Heart Rate 1: 68 bpm Height: 5'6" [...] Severity mi ld 09/28/2016 None hypothyroid Quality phlebotomy director jamee 09/28/2016 None hypothyroid Onset and Resolution [...] Severity mi ld 06/01/2016 None hypothyroid Quality phlebotomy director jamee 06/01/2016 None hypothyroid Onset and Resolution [...] and Resolution resolved 04/05/2016 None hypothyroid Quality phlebotomy director jamee 04/05/2016 None hypothyroid Onset and Resolution [...] a ssociated factors 10/12/2015 None hypothyroid Quality phlebotomy director jamee 08/24/2015 None hypothyroid Onset and Resolution [...] Severity mod erate 06/01/2015 None hypothyroid Quality phlebotomy director jamee 05/21/2015 None hypothyroid Onset of Symptom [...] Findings brittle nails 03/11/2015 None hypothyroid Quality phlebotomy director jamee 03/11/2015 None hypothyroid Quality stab le [...] Advance Directive data Encounters Encounter Performer Loca tishantanu Codes Date EST. PATIENT, LEVEL III Diagnosis: Pain in left knee[ICD10: M25.562] Diagnosis: Other pruritus[ICD10: L29.8] Diagnosis: Rash and other nonspecific skin eruption[ICD10: R21] Mishel Finn MD, [facility] CPT-4: 64230 04/29/2019 ([id number]) [id number] EST. P ATIENT, LEVEL IV Diagnosis: Hypothyroidism, unspecified[ICD10: E03.9] Diagnosis: Changes in skin texture[ICD10: R23.4] Diagnosis: Mild intermittent asthma, uncomplicated[ICD10: J45.20] Lynn Finn MD, [facility] CPT-4: 21885 03/21/2019 ([id number]) 04958 EST. P ATIENT, LEVEL IV Diagnosis: Mild intermittent asthma, uncomplicated[ICD10: J45.20] Diagnosis: Hypothyroidism, unspecified[ICD10: E03.9] Diagnosis: Low back pain[ICD10: M54.5] Lynn Finn MD, [facility] CPT- 4: 88012 01/22/2019 ([id number]) Edgar watkins no charge Diagnosis: Essential (primary) hypertension[ICD10: I10] Damari Finn MD, [facility] CPT-4: 84956 11/21/2018 ([id number]) 53856 EST. P ATIENT, LEVEL IV Diagnosis: Essential (primary) hypertension[ICD10: I10] Diagnosis: Hypothyroidism, unspecified[ICD10: E03.9] Diagnosis: Low back pain[ICD10: M54.5] Lynn Finn MD, [facility] CPT- 4: 99430 10/30/2018 ([id number]) 29159 EST. P ATIENT, LEVEL III Diagnosis: Acute recurrent maxillary sinusitis[ICD10: J01.01] Diagnosis: Other mucopurulent conjunctivitis, left eye[ICD10: H10.022] Diagnosis: Other allergic rhinitis[ICD10: J30.89] Lynn Finn MD, [facility] CPT-4: 19006 06/28/2018 14091 EST. PATIENT, LEVEL IV Diagnosis: Essential (primary) hypertension[ICD10: I10] Diagnosis: Other specified hypothyroidism[ICD10: E03.8] Diagnosis: Other specified anemias[ICD10: D64.89] Diagnosis: Localized edema[ICD10: R60.0] Mishel Finn MD, [facility] CPT-4: 34067 04/04/2018 ([id number]) 16282 EST. P ATIENT, LEVEL III Diagnosis: Mild persistent asthma, uncomplicated[ICD10: J45.30] Diagnosis: Actinic keratosis[ICD10: L57.0] Lynn Finn MD, [facility] CPT- 4: 18846 01/05/2018 ([id number]) Miscellaneou s no charge Diagnosis: Essential (primary) hypertension[ICD10: I10] Damari Finn MD, [facility] CPT-4: 42186 12/12/2017 33712 EST. PATIENT, LEVEL III Diagnosis: Essential (primary) hypertension[ICD10: I10] Diagnosis: Atrophy of thyroid (acquired)[ICD10: E03.4] Diagnosis: Low back pain[ICD10: M54.5] Mishel Finn MD, [facility] CPT-4: 70322 11/29/2017 70540 EST. PATIENT, LEVEL III Diagnosis: Pain in left hip[ICD10: M25.552] Mishel Finn MD, [facility] CPT-4: 32692 10/25/2017 61309 EST. PATIENT, LEVEL IV Diagnosis: Localized edema[ICD10: R60.0] Mishel Finn MD, [facility] CPT-4: 91149 09/12/2017 78291 EST. PATIENT, LEVEL IV Diagnosis: Mild persistent asthma with (acute) exacerbation[ICD10: J45.31] Mishel Finn MD, [facility] CPT-4: 31409 06/14/2017 08358 EST. PATIENT, LEVEL III Diagnosis: Localized edema[ICD10: R60.0] Diagnosis: Mild persistent asthma, uncomplicated[ICD10: J45.30] Mishel Finn MD, [facility] CPT-4: 33523 05/10/2017 39643 EST. PATIENT, LEVEL III Diagnosis: Mild persistent asthma with (acute) exacerbation[ICD10: J45.31] Mishel Finn MD, [facility] CPT-4: 29939 04/19/2017 ([id number]) 69046 EST. P ATIENT, LEVEL IV Diagnosis: Contusion of left wrist, initial encounter[ICD10: S60.212A] Diagnosis: Hypothyroidism, unspecified[ICD10: E03.9] Diagnosis: Mild persistent asthma with (acute) exacerbation[ICD10: J45.31] Diagnosis: Low back pain[ICD10: M54.5] Lynn Finn MD, [facility] CPT- 4: 96246 03/27/2017 ([id number]) 23177 EST. P ATIENT, LEVEL IV Diagnosis: Essential (primary) hypertension[ICD10: I10] Diagnosis: Atrophy of thyroid (acquired)[ICD10: E03.4] Diagnosis: Low back pain[ICD10: M54.5] Damari Finn MD, [facility] CPT-4: 79714 01/26/2017 90225 EST. PATIENT, LEVEL III Diagnosis: Other allergic rhinitis[ICD10: J30.89] Diagnosis: Mild persistent asthma with (acute) exacerbation[ICD10: J45.31] Mishel Finn MD, [facility] CPT-4: 68517 12/07/2016 98214 EST. PATIENT, LEVEL III Diagnosis: Mild persistent asthma with (acute) exacerbation[ICD10: J45.31] Mishel Finn MD, [facility] CPT-4: 01112 11/28/2016 69553 EST. PATIENT, LEVEL III Diagnosis: Mild persistent asthma with (acute) exacerbation[ICD10: J45.31] Diagnosis: Acute bronchitis due to other specified organisms[ICD10: J20.8] Mishel Finn MD, [facility] CPT-4: 89466 11/15/2016 24375 EST. PATIENT, LEVEL IV Diagnosis: Other acute sinusitis[ICD10: J01.80] Diagnosis: Other allergic rhinitis[ICD10: J30.89] Diagnosis: Mild persistent asthma with (acute) exacerbation[ICD10: J45.31] Mishel Finn MD, [facility] CPT-4: 39954 10/17/2016 ([id number]) 92253 EST. P ATIENT, LEVEL IV Diagnosis: Essential (primary) hypertension[ICD10: I10] Diagnosis: Low back pain[ICD10: M54.5] Damari Finn MD, [facility] CPT-4: 24821 09/28/2016 96649 EST. PATIENT, LEVEL III Diagnosis: Tinea barbae and tinea capitis[ICD10: B35.0] Diagnosis: Other specified hypothyroidism[ICD10: E03.8] Mishel Finn MD, [facility] CPT-4: 05687 06/29/2016 ([id number]) 63082 EST. P ATIENT, LEVEL IV Diagnosis: Essential (primary) hypertension[ICD10: I10] Diagnosis: Atrophy of thyroid (acquired)[ICD10: E03.4] Diagnosis: Rash and other nonspecific skin eruption[ICD10: R21] Damari Finn MD, [facility] CPT-4: 63218 06/01/2016 ([id number]) 84806 EST. P ATIENT, LEVEL III Diagnosis: Cellulitis of groin[ICD10: L03.314] Damari Finn MD, [facility] CPT- 4: 03509 05/11/2016 ([id number]) 92642 EST. P ATIENT, LEVEL IV Diagnosis: Hypothyroidism, unspecified[ICD10: E03.9] Diagnosis: Candidiasis of vulva and vagina[ICD10: B37.3] Diagnosis: Essential (primary) hypertension[ICD10: I10] Diagnosis: Low back pain[ICD10: M54.5] Lynn Finn MD, [facility] CPT- 4: 35197 04/05/2016 77818 EST. PATIENT, LEVEL III Diagnosis: Other acute sinusitis[ICD10: J01.80] Diagnosis: Rash and other nonspecific skin eruption[ICD10: R21] Mishel Finn MD, [facility] CPT-4: 54843 04/01/2016 ([id number]) 75124 EST. P ATIENT, LEVEL IV Diagnosis: Essential (primary) hypertension[ICD10: I10] Diagnosis: Hypothyroidism, unspecified[ICD10: E03.9] Diagnosis: Low back pain[ICD10: M54.5] Diagnosis: Other obesity due to excess calories[ICD10: E66.09] Lynn Finn MD, [facility] CPT-4: 71805 01/26/2016 62076 EST. PATIENT, LEVEL IV Diagnosis: Essential (primary) hypertension[ICD10: I10] Diagnosis: Cutaneous abscess of face[ICD10: L02.01] Mishel Finn MD, [facility] CPT-4: 96686 12/21/2015 ([id number]) 74572 EST. P ATIENT, LEVEL III Diagnosis: Cutaneous abscess of groin[ICD10: L02.214] Diagnosis: Hypothyroidism, unspecified[ICD10: E03.9] Lynn Finn MD, [facility] CPT-4: 25524 10/12/2015 ([id number]) 28615 EST. P ATIENT, LEVEL III Diagnosis: Essential (primary) hypertension[ICD10: I10] Diagnosis: Hypothyroidism, unspecified[ICD10: E03.9] Diagnosis: Allergic rhinitis, unspecified[ICD10: J30.9] Lynn Finn MD, [facility] CPT-4: 69326 08/24/2015 ([id number]) 35865 EST. P ATIENT, LEVEL III Diagnosis: Skin infection[ICD9: 686.9] Damari Finn MD, [facility] CPT-4: 70955 06/01/2015 ([id number]) 64846 EST. P ATIENT, LEVEL III Diagnosis: Hypothyroidism[ICD9: 244.9] Diagnosis: ESSENTIAL HYPERTENSION[ICD9: 401.9] Damari Finn MD, [facility] CPT- 4: 98055 05/21/2015 ([id number]) 82488 EST. P ATIENT, LEVEL III Diagnosis: Hypothyroidism[ICD9: 244.9] Diagnosis: Fingernail abnormalities[ICD9: 703.8] Lynn Finn MD, [facility] CPT-4: 94511 03/26/2015 ([id number]) 86100 EST. P ATIENT, LEVEL II Diagnosis: Hypothyroidism[ICD9: 244.9] Maritza Finn MD, [facility] CPT-4: 80699 03/11/2015 ([id number]) 46988 EST. P ATIENT, LEVEL IV Diagnosis: ESSENTIAL HYPERTENSION[ICD9: 401.9] Diagnosis: Low back pain[ICD9: 724.2] Diagnosis: Hypothyroidism[ICD9: 244.9] [facility] CPT-4: 36788 12/11/2014 ([id number]) 15849 EST. P ATIENT, LEVEL IV Diagnosis: Hidradenitis suppurativa[ICD9: 705.83] Diagnosis: ESSENTIAL HYPERTENSION[ICD9: 401.9] Diagnosis: Low back pain[ICD9: 724.2] Diagnosis: Lumbar spinal stenosis[ICD9: 724.02] Diagnosis: HYPOTHYROIDISM[ICD9: 244.9] [facility] CPT-4: 69307 09/18/2014 Office outpatient ne w 30 minutes Diagnosis: ESSENTIAL HYPERTENSION[ICD9: 401.9] Diagnosis: Hypothyroidism[ICD9: 244.9] Diagnosis: Low back pain[ICD9: 724.2] [facility] CPT- 4: 85657 07/31/2014 Plan of Care Planned Activity Notes [...] or concerns. 04/29/2019 Appointment: Mishel Balderr[facility] ([facility] min) Complex 04/29/2019 Patient Education: Patient Medication Summary Completed 04/29/2019 Appointment: Lynn Arenas WPtel: [phone] (30 min) Complex 04/23/2019 Visit Plan: Hypothyroidism -patient is having symptoms of over supplementation -check labs today Skin changes-patient used to see Dr Solitario but hasn't see anyone recently -recommend skin check with Dr Yamel boyd- stable- no change in current treatment 03/21/2019 Appointment: Lynn [facility]ren[facility]Ptel[facility] [phone] [phone] (30 min) Complex 03/21/2019 Patient Education: [...] practice. 01/22/2019 Appointment: [facility]el[facility] [phone] [phone] (30 min) Complex 01/22/2019 Patient Education: [...] indicated 10/30/2018 Appointment: Lynn Arenas WPtel: [phone] [phone] [place] (30 min) Complex 10/30/2018 Patient Education: Patient Medication Summary Completed 10/30/2018 Patient Education: Hypertension Completed 10/30/2018 Patient Education: Back Pain Completed 10/30/2018 Appointment: Lynn Arenas WPtel: [phone] [phone] [place] (30 min) Complex 10/26/2018 Patient Education: Patient Medication Summary Completed 10/23/2018 Appointment: Lynn Arenas WPtel: [phone] [phone] [place] (15 min) Moderate 10/19/2018 Appointment: Damari Finn WPtel: [phone] [facility] [place] (15 min) Moderate 09/19/2018 Visit Plan: [...] daily. 06/28/2018 Appointment: [facility]Ptel[facility] [phone] [phone] [place] (30 min) Complex 06/28/2018 Patient Education: [...] to monitor. 04/04/2018 Appointment: Mishel Balderrama WPtel: [address] [place], [place] [address] (15 min) Moderate 04/04/2018 Patient Education: Patient Medication Summary Completed 04/04/2018 Visit Plan: Wound Instructions - Pt was instructed to keep the wound clean, wash with antibacterial soap, use triple antibiotic ointment, call if redness, pustular drainage, or any other acute concerns. 01/19/2018 Appointment: Lynn Arenas WPtel: [phone] [phone] (30 min) Complex 01/19/2018 Patient Education: Patient [...] concerns. 01/05/2018 Appointment: [facility]Ptel[facility] [phone] [phone] (30 min) Complex 01/05/2018 Patient Education: [...] improve. 11/29/2017 Appointment: Mis[facility] Balderrama [facility]Ptel[facility] [phone] [facility] [place] (30 min) Complex 11/29/2017 [...] not improve. 10/25/2017 Appointment: Mis[facility] Balderrama [facility]Ptel[facility] [phone] [facility] [place] (30 min) Complex 10/25/2017 [...] peripheral edema. 09/12/2017 Appointment: Mishel Balderrama WPtel[facility] [phone] [facility] [place] (30 min) Complex 09/12/2017 Patient Education: Patient Medication Summary Completed 09/12/2017 Appointment: [facility] Aren[facility] WPtel[facility] [phone] [phone] [place] (30 min) Complex 06/27/2017 Visit [...] acute changes. 06/14/2017 Appointment: Mishel Balderrama WPtel: [facility] (15 min) Moderate 06/14/2017 Patient Education: Patient [...] acute changes 05/10/2017 Appointment: Mishel Balderramatel: [phone] [facility] [place] (15 min) Moderate 05/10/2017 Patient Education: [...] changes. 04/19/2017 Appointment: Mishel Balderrama WPtel[facility] [phone] [facility] (15 min) Moderate 04/19/2017 Patient [...] on previous levels of control. Low back oxbz-ngurfay-lxhxzr tramadol for prn use 03/27/2017 Appointment: Lynn Arenas WPtel: [phone] (30 min) Complex 03/27/2017 Patient [...] not improve. 01/26/2017 Appointment: Damari Finn WPtel: [facility] (15 min) Moderate [...] concerns. 12/07/2016 Appointment: Mishel Balderrama WPtel[facility] [phone] [facility] (15 min) Moderate 12/07/2016 Patient [...] symptoms. 11/28/2016 Appointment: Mishel Balderrama WPtel: [phone] [facility] (15 min) Moderate 11/28/2016 Patient Education: Patient Medication Summary Completed 11/28/2016 Appointment: Mishel Balderrama WPtel: [facility] (15 min) Moderate 11/24/2016 Visit Plan: [...] changes. 11/15/2016 Appointment: Mishel Balderrama WPtel: [phone] [facility] (30 min) Complex 11/15/2016 Patient Education: [...] acute changes. 10/17/2016 Appointment: Mishel Balderrama WPtel: [phone] [facility] (30 min) Complex 10/17/2016 Patient Education: [...] tylenol 09/28/2016 Appointment: [facility]el[facility] [phone] [facility] (15 min) Moderate 09/28/2016 Patient Education: [...] control. 06/29/2016 Appointment: Lynn Arenas WPtel: [phone] [phone] [place] (15 min) Moderate 06/29/2016 Patient [...] fluconazole 06/01/2016 Appointment: Damari Finn WPtel: [phone] [facility] (15 min) Moderate 06/01/2016 Patient Education: Patient Medication Summary Completed 06/01/2016 Patient Education: Obesity Completed 06/01/2016 Visit Plan: Cellulitis - continue w ith oral antibiotics as previously directed, return to clinic as previously directed, call for acute change in symptoms, worsening redness, warmth, discharge. 05/11/2016 Appointment: Damari Finn WPtel: [phone] [facility] (15 min) Moderate 05/11/2016 Patient Education: [...] any concerns. 04/01/2016 Appointment: Lynn Arenas WPtel: [facility]6 [phone] (30 min) Complex 04/01/2016 Patient Education: Patient Medication Summary Completed 04/01/2016 Patient Education: Obesity Completed 04/01/2016 Appointment: Lynn Arenas WPtel: [phone] [phone] (30 min) Complex 03/29/2016 Visit Plan: [...] levels of control. Low back pain-refill tramadol Boyyp-wsisibmoyc-grxeabpd resolved 01/26/2016 Appointment: [facility] Aren[facility] WPtel: [phone] [phone] (30 min) Complex 01/26/2016 Patient Education: Patient Medication Summary Completed 01/26/2016 Patient Education: Obesity Completed 01/26/2016 Care Plan: BMI Above normal followup RADHA F-MGMT EDUC & TRAIN 1 PT Pending 01/26/2016 Care Plan: Referral Order SNOMED-CT : [id number] Pending 01/07/2016 Appointment: Lynn Aren[facility] WPtel: [phone] [phone] (15 min) Moderate 12/24/2015 Visit [...] tramadol 12/11/2014 Appointment: Damari Finn WPtel: [facility] [address] follow up 12/11/2014 Patient Education: Patient Medication Summary Completed 12/11/2014 Patient Education: Hypertension Completed 12/11/2014 Appointment: Damari Finn WPtel: [address] [place] [address] follow up 11/27/2014 Visit Plan: Hidradenitis Suppurativ [...] to get her back MRI done at [facility] in [place] as that is where her specialist will be once we get her an appt with one of the local Neurosurgeons. 09/18/2014 Appointment: Damari Finn WPtel: [facility] Follow up 09/18/2014 Patient Education: Patient [...] as scheduled 07/31/2014 Appointment: Lynn Arenas WPtel: [phone] [phone] New Patient 07/31/2014 Patient Education: Patient Medication Summary Completed 07/31/2014 Referral: Artur Daugherty she w ill be calling and making her appt Initiated Referral: Artur Daugherty Referral Initiated Instructions Comment claritin or zyrtec . Sinusitis - Pt [...] into affected eye four times daily. . Edema - pt has bee n advised to elevate legs to prevent dependent edema, compression has been recommended to help to naturally decrease peripheral edema. Diuretic use has been discussed and pt has been instructed in appropriate use of such medication as necessary to further attempt to reduce peripheral edema. claritin or zyrtec . Sinusitis - Pt [...] . 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 Low back qgqm-hzdsrwf-jkblta tramadol for prn use . Brittle fingernail [...] worsening or does not improve. Declined Procedure: (77406) FLU VAC NO PRSV 4 JUSTYNA 3 YRS+; Declined Reason: refused Physical therapy at [facility] . Hypertension - well controlled - [...] antibiotic. Pt to call if nor improving. prednisone taper - i f no better [...] or with any changes, questions, or concerns. CHECK LABS AND UA APPOINTMENT WITH DR MONTESINOS FOR SKIN CHECK . Hypothyroidism -patient is having symp toms of over supplementation -check labs today Skin changes-patient used to see Dr Solitario but hasn't see anyone recently - recommend skin check with Dr Montesinos Asthma- stable- no change in current treatment [...] . 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 Chronic back pain - refill tramadol INCREASE LEVOTHYROXI NE TO 137MCG DAILY REPEAT [...] to evaluate and treat as indicated . Wound Instructions - Pt was instructed [...] referral to Dr. Daugherty. Will refer pt. bactroban ointment t o sore twice daily [...] levels of control. Low back pain-refill tramadol Ahsbl-cveorhnntb-sxtgrpwo resolved . Hypertension - wel l controlled [...] patient is stable, monitor for acute changes. I will call your tra catracho to [...] to get her back MRI done at [facility] in [place] as that is where her specialist will be once we get her an appt with one of the local Neurosurgeons. increase synthroid t o 200 mcg . Hypothyroidism- pt with chronic hypoth yroidism, After consultation with Dr. Finn, will increase Synthroid to 200 mcg per day and recheck labs in 3 months. Pt is to monitor fingernail redness. CBC, CMP checked today. . Hypertension - wel l controlled - [...] the nasal steroid allergy spray. Coricidin HBP restart lisinopril/h CTZ - this will help [...]
--- OUTSIDE RECORDS SUMMARY | 2020-02-20 18:49 | XMS REPORT | CCD ---
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 Unknown Has never used illegal drugs 014 Allergies, Adverse Reactions, Alerts Substance Reaction Codes Entered Date Inactivated Date Status * NO KNOWN FOOD BEVERLY RGIES Unknown 07/31/2014 No Inactive Date Active bactrim hives, rash RxNorm: 640382 04/05/2016 No Inactive Date Active Past Medical [...] Fill Instructions prednisone 20 mg tablet RxNorm: 791234 1 Tablet(s) PO BID x 2 days, then 1 pill daily x 3 days, then 1/2 pill every other day x 3 doses. 04/29/2019 No Stop Date Active tramadol 50 mg tablet RxNorm: 506609 1 Tablet(s) PO Q6 PRN as needed for pain 04/09/2019 05/07/2019 Ac tive levothyroxine 125 mc g tablet RxNorm: 709235 1 Tablet(s) PO daily TAKE ONE TABLET BY MOUTH DAILY ON AN EMPTY STOMACH 03/25/2019 06/16/2020 Active lorazepam 1 mg tablet RxNorm: 653905 Tablet(s) TAKE TWO TABLETS BY MOUTH AT B EDTIME NEEDED FOR INSOMNIA AND ONE TABLET DAILY NEEDED ANXIETY 03/15/2019 05/13/2019 Active tramadol 50 mg tablet RxNorm: 263822 1 Tablet(s) PO Q4 PRN as needed for pain 03/15/2019 04/08/2019 In active tramadol 50 mg tablet RxNorm: 247123 1 Tablet(s) PO Q4 PRN as needed for pain 02/20/2019 03/14/2019 In active lorazepam 1 mg tablet RxNorm: 555527 Tablet(s) TAKE TWO TABLETS BY MOUTH AT B EDTIME NEEDED FOR INSOMNIA AND ONE TABLET DAILY NEEDED ANXIETY 01/04/2019 03/03/2019 Inactive tramadol 50 mg tablet RxNorm: 943809 1 Tablet(s) PO Q4 PRN as needed for pain 12/05/2018 01/12/2019 In active Keflex 500 mg capsule RxNorm: 148653 1 Capsule(s) PO TID 12/05/2018 12/11/2018 Inactive ciprofloxacin 0.3 % eye drops RxNorm: 145612 INSTILL TWO DROPS TO THE AFFECTED EYE(S) THREE TIMES A DAY 11/23/2018 12/25/2018 Inactive ProAir HFA 90 mcg/ac tuation aerosol inhaler RxNorm: 5625588 1-2 Puff(s) INH Q4 P RN INHALE 1 TO 2 PUFFS FOUR TIMES A DAY NEEDED FOR ASTHMA 10/30/2018 01/27/2019 Inactive levothyroxine 137 mc g tablet RxNorm: 916478 1 Tablet(s) PO daily TAKE ONE TABLET BY MOUTH DAILY ON AN EMPTY STOMACH 10/30/2018 03/24/2019 Inactive tramadol 50 mg tablet RxNorm: 223306 1 Tablet(s) PO Q4 PRN as needed for pain 10/29/2018 12/04/2018 In active levothyroxine 125 mc g tablet RxNorm: 650707 1 Tablet(s) PO daily TAKE ONE TABLET BY MOUTH DAILY ON AN EMPTY STOMACH 09/06/2018 10/29/2018 Inactive lorazepam 1 mg tablet RxNorm: 245943 Tablet(s) TAKE TWO TABLETS BY MOUTH AT B EDTIME NEEDED FOR INSOMNIA AND ONE TABLET DAILY NEEDED ANXIETY 09/06/2018 11/02/2018 Inactive tramadol 50 mg tablet RxNorm: 402134 1 Tablet(s) PO Q4 PRN as needed for pain 09/06/2018 10/15/2018 In active tramadol 50 mg tablet RxNorm: 859642 1 Tablet(s) PO Q4 PRN as needed for pain 07/06/2018 08/14/2018 In active ciprofloxacin 0.3 % eye drops RxNorm: 658017 2 Drop(s) ophthalmic (eye) TID 06/28/2018 07/07/2018 In active lorazepam 1 mg tablet RxNorm: 080929 Tablet(s) TAKE TWO TABLETS BY MOUTH AT B EDTIME NEEDED FOR INSOMNIA AND ONE TABLET DAILY NEEDED ANXIETY 06/28/2018 08/26/2018 Inactive doxycycline hyclate 100 mg tablet RxNorm: 1582229 1 Tablet(s) PO BID 06/28/2018 07/04/2018 Inactive tramadol 50 mg tablet RxNorm: 434567 1 Tablet(s) PO Q4 PRN as needed for pain 06/13/2018 07/05/2018 In active lorazepam 1 mg tablet RxNorm: 735496 Tablet(s) TAKE TWO TABLETS BY MOUTH AT B EDTIME NEEDED FOR INSOMNIA AND ONE TABLET DAILY NEEDED ANXIETY 05/23/2018 06/27/2018 Inactive tramadol 50 mg tablet RxNorm: 964283 1 Tablet(s) PO Q4 PRN as needed for pain 05/23/2018 06/12/2018 In active levothyroxine 125 mc g tablet RxNorm: 400228 Tablet(s) TAKE ONE TA BLET BY MOUTH DAILY ON AN EMPTY STOMACH 05/23/2018 09/05/2018 Inactive tramadol 50 mg tablet RxNorm: 921267 1 Tablet(s) PO Q4 PRN as needed for pain 05/17/2018 05/22/2018 In active levothyroxine 125 mc g tablet RxNorm: 743115 TAKE ONE TABLET BY MO UT DAILY 05/15/2018 06/27/2018 In active levothyroxine 125 mc g tablet RxNorm: 014729 TAKE ONE TABLET BY MO UT DAILY 05/15/2018 06/27/2018 In active tramadol 50 mg tablet RxNorm: 342125 1 Tablet(s) PO Q4 PRN as needed for pain 04/30/2018 05/16/2018 In active Advair Diskus 100 mc g-50 mcg/dose powder for inhalation RxNorm: 5694103 1 Puff(s) INH BID 04/06/2018 01/21/2019 Inactive Symbicort 80 mcg-4.5 mcg/actuation HFA aerosol inhaler RxNorm: 1922269 2 Puff(s) INH BID 04/06/2018 01/21/2019 Inactive Advair Diskus 250 mc g-50 mcg/dose powder for inhalation RxNorm: 3238719 1 Puff(s) INH BID 04/05/2018 09/01/2018 Inactive Zyrtec 10 mg tablet RxNorm: 9298709 1 Tablet(s) PO daily x1 week then PRN 04/05/2018 08/02/2018 In active lisinopril 20 mg-hyd rochlorothiazide 25 mg tablet RxNorm: 070658 Tablet(s) TAKE ONE TABLET BY MOUTH DAILY 04/05/2018 10/29/2018 Inactive Zyrtec 10 mg tablet RxNorm: 4272357 1 Tablet(s) PO daily 04/04/2018 05/03/2018 Inactive tramadol 50 mg tablet RxNorm: 307454 1 Tablet(s) PO Q4 PRN as needed for pain 03/13/2018 04/21/2018 In active lorazepam 1 mg tablet RxNorm: 509982 Tablet(s) TAKE TWO TABLETS BY MOUTH AT B EDTIME NEEDED FOR INSOMNIA AND ONE TABLET DAILY NEEDED ANXIETY 03/02/2018 04/30/2018 Inactive levothyroxine 125 mc g tablet RxNorm: 326364 1 Tablet(s) PO daily 02/06/2018 05/06/2018 Inactive levothyroxine 125 mc g tablet RxNorm: 739259 TAKE ONE TABLET BY [facility] DAILY ON AN EMPTY STOMACH 02/06/2018 05/22/2018 Inactive tramadol 50 mg tablet RxNorm: 310131 1 Tablet(s) PO Q4 PRN as needed for pain 01/26/2018 03/06/2018 In active lorazepam 1 mg tablet RxNorm: 996914 Tablet(s) TAKE TWO TABLETS BY MOUTH AT B EDTIME NEEDED FOR INSOMNIA AND ONE TABLET DAILY NEEDED ANXIETY 01/23/2018 06/27/2018 Inactive Symbicort 80 mcg-4.5 mcg/actuation HFA aerosol inhaler RxNorm: 1736069 INH 01/05/2018 06/27/2018 In active tramadol 50 mg tablet RxNorm: 706193 1 Tablet(s) PO Q4 PRN as needed for pain 01/04/2018 01/25/2018 In active Advair Diskus 250 mc g-50 mcg/dose powder for inhalation RxNorm: 2087949 1 Puff(s) INH BID 11/29/2017 03/28/2018 Inactive hydrochlorothiazide 12.5 mg tablet RxNorm: 593849 1 Tablet(s) PO daily 11/29/2017 12/28/2017 In active tramadol 50 mg tablet RxNorm: 377031 1 Tablet(s) PO Q4 PRN as needed for pain 11/23/2017 01/01/2018 In active tramadol 50 mg tablet RxNorm: 765141 1 Tablet(s) PO Q4 PRN as needed for pain 10/06/2017 11/14/2017 In active lorazepam 1 mg tablet RxNorm: 367800 Tablet(s) TAKE TWO TABLETS BY MOUTH AT B EDTIME NEEDED FOR INSOMNIA AND ONE TABLET DAILY NEEDED ANXIETY 09/12/2017 06/27/2018 Inactive tramadol 50 mg tablet RxNorm: 346185 1 Tablet(s) PO Q4 PRN as needed for pain 09/12/2017 10/05/2017 In active tramadol 50 mg tablet RxNorm: 557137 1 Tablet(s) PO Q4 PRN as needed for pain 08/15/2017 09/11/2017 In active tramadol 50 mg tablet RxNorm: 894957 1 Tablet(s) PO Q4 PRN as needed for pain 06/29/2017 08/07/2017 In active ProAir HFA 90 mcg/ac tuation aerosol inhaler RxNorm: 1868514 INHALE 1 TO 2 PUFFS FOUR TIMES A DAY NEEDED FOR ASTHMA 06/14/2017 11/10/2017 Inactive prednisone 20 mg tablet RxNorm: 927877 1 Tablet(s) PO BID x 2 days, then 1 pill daily x 3 days, then 1/2 pill every other day x 3 doses. 06/14/2017 09/11/2017 Inactive Kenalog 40 mg/mL madhavi pension for injection RxNorm: 9455538 1 Milliliter(s) Inj 06/14/2017 06/14/2017 In active Zyrtec 10 mg tablet RxNorm: 2604038 1 Tablet(s) PO daily 06/14/2017 07/13/2017 Inactive tramadol 50 mg tablet RxNorm: 439484 1 Tablet(s) PO Q4 PRN as needed for pain 06/08/2017 06/27/2017 In active [SAVINGS FOR UNINSURED PATIENTS -- BIN:0 88847, PCN: ASPROD1, Group: [id number], ID# [id number], Process claim through Cellity, for questions: . THIS IS NOT INSURANCE.] tramadol 50 mg tablet RxNorm: 319721 1 Tablet(s) PO Q4 PRN as needed for pain 05/16/2017 06/04/2017 In active [SAVINGS FOR UNINSURED PATIENTS -- BIN:0 02458, PCN: ASPROD1, Group: [id number], ID# [id number], Process claim through Cellity, for questions: . THIS IS NOT INSURANCE.] lorazepam 1 mg tablet RxNorm: 874578 Tablet(s) TAKE TWO TABLETS BY MOUTH AT B EDTIME NEEDED FOR INSOMNIA AND ONE TABLET DAILY NEEDED ANXIETY 05/16/2017 08/13/2017 Inactive Lasix 20 mg tablet RxNorm: 563798 1 Tablet(s) PO daily 05/10/2017 05/09/2017 Inactive Lasix 20 mg tablet RxNorm: 654581 1 Tablet(s) PO daily 05/10/2017 05/12/2017 Inactive potassium chloride E R 10 mEq tablet,extended release RxNorm: 946861 1 Tablet(s) PO daily while on the lasix 05/10/2017 05/09/2017 Inactive potassium chloride E R 10 mEq tablet,extended release RxNorm: 375435 1 Tablet(s) PO daily while on the lasix 05/10/2017 05/12/2017 Inactive prednisone 20 mg tablet RxNorm: 329591 1 Tablet(s) PO BID x 2 days, then 1 pill daily x 3 days, then 1/2 pill every other day x 3 doses. 04/19/2017 06/13/2017 Inactive Zithromax Z-Linus 250 mg tablet RxNorm: 643561 1 Tablet(s) PO UD 04/13/2017 06/28/2017 Inactive prednisone 20 mg tablet RxNorm: 280815 1 Tablet(s) PO BID 04/13/2017 04/17/2017 Inactive levothyroxine 125 mc g tablet RxNorm: 902954 1 Tablet(s) PO daily 04/11/2017 10/07/2017 Inactive tramadol 50 mg tablet RxNorm: 986972 1 Tablet(s) PO Q4 PRN as needed for pain 03/27/2017 04/15/2017 In active [SAVINGS FOR UNINSURED PATIENTS -- BIN:0 02593, PCN: ASPROD1, Group: [id number], ID# [id number], Process claim through MedImpact, for questions: . THIS IS NOT INSURANCE.] Kenalog 40 mg/mL madhavi pension for injection RxNorm: 6772794 1 Milliliter(s) Inj 03/27/2017 03/27/2017 In active tramadol 50 mg tablet RxNorm: 751869 1 Tablet(s) PO Q4H as needed for pain 03/09/2017 03/26/2017 In active [SAVINGS FOR UNINSURED PATIENTS -- BIN:0 00793, PCN: ASPROD1, Group: [id number], ID# [id number], Process claim through MedImpact, for questions: . THIS IS NOT INSURANCE.] lisinopril 20 mg-hyd rochlorothiazide 25 mg tablet RxNorm: 358827 TAKE ONE TABLET BY MOUTH DAILY 01/29/2017 11/21/2017 Inactive lorazepam 1 mg tablet RxNorm: 603518 Tablet(s) TAKE TWO TABLETS BY MOUTH AT B EDTIME NEEDED FOR INSOMNIA AND ONE TABLET DAILY NEEDED ANXIETY 01/05/2017 04/04/2017 Inactive tramadol 50 mg tablet RxNorm: 509913 1 Tablet(s) PO Q4H as needed for pain 12/07/2016 01/13/2017 In active [SAVINGS FOR UNINSURED PATIENTS -- BIN:0 71782, PCN: ASPROD1, Group: [id number], ID# [id number], Process claim through MedImpact, for questions: . THIS IS NOT INSURANCE.] Kenalog 40 mg/mL madhavi pension for injection RxNorm: 0344453 Milliliter(s) Inj 12/07/2016 12/07/2016 In active nystatin 100,000 uni t/mL oral suspension RxNorm: 049629 4 Milliliter(s) PO QI D 12/07/2016 12/11/2016 In active Francia-D 12 Hour 60 mg-120 mg tablet,extended release RxNorm: 721392 1 Tablet(s) PO BID 12/07/2016 01/11/2017 Inactive lorazepam 1 mg tablet RxNorm: 741258 Tablet(s) TAKE TWO TABLETS BY MOUTH AT B EDTIME AND ONE TABLET DAILY NEEDED 12/07/2016 01/04/2017 Inactive (Response to an electronic controlled substance refill request - RxReferenceNumber: [id number]) albuterol sulfate 2. 5 mg/3 mL (0.083 %) solution for nebulization RxNorm: 536259 3 Milliliter(s) INH TID 11/29/2016 11/28/2016 Inactive prednisone 10 mg tablet RxNorm: 013876 Tablet(s) PO UD 11/29/2016 12/05/2016 Inactive 6,5,4,3,2,1 doxycycline hyclate 100 mg tablet RxNorm: 211417 1 Tablet(s) PO BID 11/29/2016 12/04/2016 Inactive albuterol sulfate 2. 5 mg/3 mL (0.083 %) solution for nebulization RxNorm: 227425 3 Milliliter(s) INH TID 11/29/2016 12/03/2016 Inactive Kenalog 40 mg/mL madhavi pension for injection RxNorm: 3152494 Milliliter(s) Inj 11/28/2016 11/28/2016 In active tramadol 50 mg tablet RxNorm: 828101 1 Tablet(s) PO Q4H as needed for pain 11/15/2016 12/06/2016 In active [SAVINGS FOR UNINSURED PATIENTS -- BIN:0 23434, PCN: ASPROD1, Group: [id number], ID# [id number], Process claim through Cellity, for questions: . THIS IS NOT INSURANCE.] prednisone 20 mg tablet RxNorm: 798407 2 Tablet(s) PO daily 11/15/2016 11/19/2016 Inactive Advair Diskus 100 mc g-50 mcg/dose powder for inhalation RxNorm: 6910217 1 Puff(s) INH BID 11/15/2016 06/11/2017 Inactive ProAir HFA 90 mcg/ac tuation aerosol inhaler RxNorm: 556147 INHALE 1 TO 2 PUFFS F OUR TIMES A DAY NEEDED FOR ASTHMA 11/15/2016 04/13/2017 Inactive Zithromax Z-Linus 250 mg tablet RxNorm: 784842 1 Tablet(s) PO UD 11/15/2016 11/27/2016 Inactive Zyrtec 10 mg tablet RxNorm: 3543106 1 Tablet(s) PO daily 10/17/2016 11/15/2016 Inactive Keflex 500 mg capsule RxNorm: 446309 1 Capsule(s) PO TID 10/17/2016 10/23/2016 Inactive prednisone 10 mg tablet RxNorm: 969163 Tablet(s) PO UD 10/17/2016 11/28/2016 Inactive 6,5,4,3,2,1 tramadol 50 mg tablet RxNorm: 657653 1 Tablet(s) PO Q4H as needed for pain 09/28/2016 11/06/2016 In active [SAVINGS FOR UNINSURED PATIENTS -- BIN:0 68662, PCN: ASPROD1, Group: [id number], ID# [id number], Process claim through Cellity, for questions: . THIS IS NOT INSURANCE.] ProAir HFA 90 mcg/ac tuation aerosol inhaler RxNorm: 679898 INHALE 1 TO 2 PUFFS F OUR TIMES A DAY NEEDED FOR ASTHMA 09/15/2016 11/14/2016 Inactive doxycycline hyclate 100 mg tablet RxNorm: 318890 1 Tablet(s) PO BID 09/15/2016 09/24/2016 Inactive doxycycline hyclate 100 mg tablet RxNorm: 606702 1 Tablet(s) PO BID 07/29/2016 08/07/2016 Inactive tramadol 50 mg tablet RxNorm: 341706 1 Tablet(s) PO Q4H as needed for pain 07/29/2016 09/06/2016 In active [SAVINGS FOR UNINSURED PATIENTS -- BIN:0 30688, PCN: ASPROD1, Group: [id number], ID# [id number], Process claim through Cellity, for questions: . THIS IS NOT INSURANCE.] lorazepam 1 mg tablet RxNorm: 309079 Tablet(s) TAKE TWO TABLETS BY MOUTH AT B EDTIME AND ONE TABLET DAILY NEEDED 07/29/2016 10/26/2016 Inactive (Response to an electronic controlled substance refill request - RxReferenceNumber: [id number]) levothyroxine 125 mc g tablet RxNorm: 838684 1 Tablet(s) PO daily 06/29/2016 06/29/2016 Inactive levothyroxine 137 mc g tablet RxNorm: 318724 1 Tablet(s) PO daily 06/29/2016 12/25/2016 Inactive ketoconazole 2 % sha mpoo RxNorm: 149192 1 Application TOP BID 06/29/2016 07/03/2016 Inactive tramadol 50 mg tablet RxNorm: 390300 1 Tablet(s) PO Q4H as needed for pain 06/16/2016 07/25/2016 In active [SAVINGS FOR UNINSURED PATIENTS -- BIN:0 23687, PCN: ASPROD1, Group: [id number], ID# [id number], Process claim through Cellity, for questions: . THIS IS NOT INSURANCE.] Bactroban 2 % topica l ointment RxNorm: 220346 APPLY TO AFFECTED ARE A(S) TWO TIMES A DAY 06/16/2016 04/16/2017 Inactive fluconazole 150 mg t ablet RxNorm: 970134 1 Tablet(s) PO daily 06/01/2016 06/05/2016 Inactive gentamicin 0.1 % top ical ointment RxNorm: 281022 1 Application TOP QID 05/12/2016 05/25/2016 In active metronidazole 500 mg tablet RxNorm: 129948 1 Tablet(s) PO TID 05/11/2016 05/24/2016 Inactive gentamicin 0.1 % top ical ointment RxNorm: 948921 1 Application TOP QID 05/11/2016 05/11/2016 In active doxycycline hyclate 100 mg tablet RxNorm: 145457 1 Tablet(s) PO BID 05/11/2016 05/24/2016 Inactive lorazepam 1 mg tablet RxNorm: 080087 Tablet(s) TAKE TWO TABLETS BY MOUTH AT B EDTIME AND ONE TABLET DAILY NEEDED 05/02/2016 07/28/2016 Inactive (Response to an electronic controlled substance refill request - RxReferenceNumber: [id number]) Diflucan 150 mg tablet RxNorm: 897156 1 Tablet(s) PO daily x5 days then 1 x we ekly x 4 weeks. 05/02/2016 04/10/2017 Inactive Diflucan 150 mg tablet RxNorm: 544245 1 Tablet(s) PO every other day 04/19/2016 04/28/2016 In active Diflucan 150 mg tablet RxNorm: 808397 1 Tablet(s) PO every other day 04/19/2016 04/18/2016 In active Diflucan 150 mg tablet RxNorm: 794006 1 Tablet(s) PO daily 04/05/2016 04/11/2016 Inactive mupirocin 2 % topica l ointment RxNorm: 593567 1 Application TOP BID 04/05/2016 05/04/2016 Inactive tramadol 50 mg tablet RxNorm: 334888 1 Tablet(s) PO Q4H as needed for pain 04/05/2016 05/14/2016 In active [SAVINGS FOR UNINSURED PATIENTS -- BIN:0 15679, PCN: ASPROD1, Group: [id number], ID# [id number], Process claim through Cellity, for questions: . THIS IS NOT INSURANCE.] prednisone 10 mg tablet RxNorm: 548300 Tablet(s) PO UD 04/01/2016 09/26/2016 Inactive 6,5,4,3,2,1 levothyroxine 137 mc g tablet RxNorm: 854610 1 Tablet(s) PO daily 03/21/2016 03/20/2016 Inactive levothyroxine 137 mc g tablet RxNorm: 068039 1 Tablet(s) PO daily 03/21/2016 06/28/2016 Inactive Advair Diskus 100 mc g-50 mcg/dose powder for inhalation RxNorm: 4755565 1 Puff(s) INH BID 01/26/2016 05/24/2016 Inactive tramadol 50 mg tablet RxNorm: 063216 1 Tablet(s) PO Q4H as needed for pain 01/26/2016 03/05/2016 In active [SAVINGS FOR UNINSURED PATIENTS -- BIN:0 72822, PCN: ASPROD1, Group: [id number], ID# [id number], Process claim through Cellity, for questions: . THIS IS NOT INSURANCE.] Bactroban 2 % topica l ointment RxNorm: 625924 APPLY TO AFFECTED ARE A(S) TWO TIMES A DAY 12/22/2015 12/31/2015 Inactive Bactrim DS 800 mg-16 0 mg tablet RxNorm: 462212 TAKE ONE TABLET BY [facility] TWICE A DAY 12/22/2015 04/18/2016 In active Bactrim DS 800 mg-16 0 mg tablet RxNorm: 312447 1 Tablet(s) PO BID 12/21/2015 01/21/2019 Inactive lisinopril 20 mg-hyd rochlorothiazide 25 mg tablet RxNorm: 138058 1 Tablet(s) PO daily 12/21/2015 06/17/2016 Inactive [SAVINGS FOR UNINSURED PATIENTS -- BIN:0 15737, PCN: ASPROD1, Group: [id number], ID# [id number], Process claim through Cellity, for questions: . THIS IS NOT INSURANCE.] tramadol 50 mg tablet RxNorm: 894264 1 Tablet(s) PO Q4H as needed for pain 12/03/2015 01/11/2016 In active [SAVINGS FOR UNINSURED PATIENTS -- BIN:0 18978, PCN: ASPROD1, Group: [id number], ID# [id number], Process claim through Cellity, for questions: . THIS IS NOT INSURANCE.] lorazepam 1 mg tablet RxNorm: 079407 Tablet(s) TAKE TWO TABLETS BY MOUTH AT B EDTIME AND ONE TABLET DAILY NEEDED 11/26/2015 06/27/2018 Inactive (Response to an electronic controlled substance refill request - RxReferenceNumber: [id number]) Bactrim DS 800 mg-16 0 mg tablet RxNorm: 324086 1 Tablet(s) PO BID 11/25/2015 12/04/2015 Inactive levothyroxine 150 mc g tablet RxNorm: 692283 1 Tablet(s) PO daily 11/25/2015 03/20/2016 Inactive Bactroban 2 % topica l ointment RxNorm: 248160 1 Application TOP BID 10/12/2015 10/21/2015 Inactive Bactrim DS 800 mg-16 0 mg tablet RxNorm: 802455 1 Tablet(s) PO BID 09/07/2015 09/06/2015 Inactive Bactrim DS 800 mg-16 0 mg tablet RxNorm: 111216 1 Tablet(s) PO BID 09/07/2015 09/16/2015 Inactive lorazepam 1 mg tablet RxNorm: 458744 Tablet(s) TAKE TWO TABLETS BY MOUTH AT B EDTIME AND ONE TABLET DAILY NEEDED 08/28/2015 11/24/2015 Inactive (Response to an electronic controlled substance refill request - RxReferenceNumber: [id number]) levothyroxine 175 mc g tablet RxNorm: 508052 1 Tablet(s) PO daily 08/24/2015 11/24/2015 Inactive tramadol 50 mg tablet RxNorm: 157941 1 Tablet(s) PO Q4H as needed for pain 08/24/2015 09/11/2017 In active [SAVINGS FOR UNINSURED PATIENTS -- BIN:0 79618, PCN: ASPROD1, Group: [id number], ID# [id number], Process claim through Cellity, for questions: . THIS IS NOT INSURANCE.] lisinopril 20 mg-hyd rochlorothiazide 25 mg tablet RxNorm: 028382 1 Tablet(s) PO daily TAKE 1 TABLET BY MOUTH DAILY 08/24/2015 06/27/2018 Inactive ProAir HFA 90 mcg/ac tuation aerosol inhaler RxNorm: 494771 1-2 Puff(s) INH PRN I NHALE ONE TO TWO PUFFS BY MOUTH FOUR TIMES A DAY NEEDED FOR ASTHMA 08/24/2015 12/01/2015 In active ProAir HFA 90 mcg/ac tuation aerosol inhaler RxNorm: 0616312 INHALE ONE TO TWO PU FFS BY MOUTH FOUR TIMES A DAY NEEDED FOR ASTHMA 08/17/2015 08/23/2015 Inactive Advair Diskus 250 mc g-50 mcg/dose powder for inhalation RxNorm: 8700889 1 Puff(s) INH BID 07/20/2015 07/19/2015 Inactive Advair Diskus 250 mc g-50 mcg/dose powder for inhalation RxNorm: 6451663 1 Puff(s) INH BID 07/20/2015 11/16/2015 Inactive tramadol 50 mg tablet RxNorm: 777450 1 Tablet(s) PO Q4H as needed for pain 07/10/2015 08/17/2015 In active [SAVINGS FOR UNINSURED PATIENTS -- BIN:0 16145, PCN: ASPROD1, Group: [id number], ID# [id number], Process claim through Cellity, for questions: . THIS IS NOT INSURANCE.] Zithromax Z-Linus 250 mg tablet RxNorm: 773797 1 Tablet(s) PO UD 07/10/2015 01/18/2016 Inactive Keflex 500 mg capsule RxNorm: 350213 1 Capsule(s) PO TID 06/01/2015 06/07/2015 Inactive mupirocin 2 % topica l ointment RxNorm: 627360 1 Application TOP TID 06/01/2015 06/10/2015 Inactive lisinopril 20 mg-hyd rochlorothiazide 25 mg tablet RxNorm: 852544 TAKE 1 TABLET BY MOUT H DAILY 05/30/2015 08/23/2015 Inactive lisinopril 20 mg-hyd rochlorothiazide 25 mg tablet RxNorm: 037478 1 Tablet(s) PO daily 05/29/2015 11/24/2015 Inactive [SAVINGS FOR UNINSURED PATIENTS -- BIN:0 18990, PCN: ASPROD1, Group: [id number], ID# [id number], Process claim through Cellity, for questions: . THIS IS NOT INSURANCE.] lorazepam 1 mg tablet RxNorm: 374927 Tablet(s) TAKE TWO TABLETS BY MOUTH AT B EDTIME AND ONE TABLET DAILY NEEDED 04/17/2015 07/13/2015 Inactive (Response to an electronic controlled substance refill request - RxReferenceNumber: [id number]) levothyroxine 200 mc g tablet RxNorm: 764490 1 Tablet(s) PO daily 03/12/2015 08/23/2015 Inactive [SAVINGS FOR UNINSURED PATIENTS -- BIN:0 01428, PCN: ASPROD1, Group: [id number], ID# [id number], Process claim through Cellity, for questions: . THIS IS NOT INSURANCE.] lisinopril 20 mg-hyd rochlorothiazide 25 mg tablet RxNorm: 249025 1 Tablet(s) PO daily 03/11/2015 05/28/2015 Inactive [SAVINGS FOR UNINSURED PATIENTS -- BIN:0 19240, PCN: ASPROD1, Group: [id number], ID# [id number], Process claim through Cellity, for questions: . THIS IS NOT INSURANCE.] levothyroxine 175 mc g tablet RxNorm: 982867 1 Tablet(s) PO daily 03/09/2015 03/11/2015 Inactive recheck blood in 3 months- THIS IS CORRE CT DOSAGE levothyroxine 175 mc g tablet RxNorm: 558478 1 Tablet(s) PO daily 03/09/2015 03/08/2015 Inactive recheck blood in 3 months levothyroxine 150 mc g tablet RxNorm: 304135 1 Tablet(s) PO daily 03/09/2015 03/08/2015 Inactive recheck blood in 3 months lorazepam 1 mg tablet RxNorm: 936207 TAKE TWO TABLETS BY MOUTH AT BEDTIME AND ONE TABLET DAILY NEEDED 12/25/2014 01/22/2015 Inactive (Response to an electronic controlled substance refill request - RxReferenceNumber: [id number]) lorazepam 1 mg tablet RxNorm: 258975 Tablet(s) TAKE TWO TABLETS BY MOUTH EVER Y NIGHT AT BEDTIME AND TAKE ONE TABLET BY MOUTH DAILY NEEDED 12/23/2014 12/25/2014 Inactive (Response to an electronic controlled [place] - RxReferenceNumber: [id number]) levothyroxine 150 mc g tablet RxNorm: 668777 1 Tablet(s) PO daily 12/12/2014 03/08/2015 Inactive recheck blood in 3 months Diflucan 150 mg tablet RxNorm: 049234 1 Tablet(s) PO every other day (start af ter finished with Cipro) 11/17/2014 08/23/2015 Inactive tramadol 50 mg tablet RxNorm: 435364 1 Tablet(s) PO Q4H as needed for pain 11/10/2014 12/17/2014 In active [SAVINGS FOR UNINSURED PATIENTS -- BIN:0 84402, PCN: ASPROD1, Group: [id number], ID# [id number], Process claim through MedImp[employer], for questions: . THIS IS NOT INSURANCE.] Cipro 500 mg tablet RxNorm: 131110 1 Tablet(s) PO BID 10/23/2014 10/29/2014 Inactive Flagyl 500 mg tablet RxNorm: 211371 1 Tablet(s) PO TID 10/23/2014 10/29/2014 Inactive Cipro 500 mg tablet RxNorm: 540762 1 Tablet(s) PO BID 10/23/2014 10/22/2014 Inactive Flagyl 500 mg tablet RxNorm: 503464 1 Tablet(s) PO TID 10/23/2014 10/22/2014 Inactive Diflucan 150 mg tablet RxNorm: 066829 1 Tablet(s) PO every other day (start af ter finished with Cipro) 10/23/2014 11/16/2014 Inactive lorazepam 1 mg tablet RxNorm: 965780 TAKE TWO TABLETS BY MOUTH EVERY NIGHT AT BEDTIME AND TAKE ONE TABLET BY MOUTH DAILY NEEDED 10/21/2014 10/21/2014 Inactive (Response to an electronic controlled [place] refill request - RxReferenceNumber: [id number]) lorazepam 1 mg tablet RxNorm: 581915 TAKE TWO TABLETS BY MOUTH EVERY NIGHT AT BEDTIME AND TAKE ONE TABLET BY MOUTH DAILY NEEDED 10/21/2014 11/18/2014 Inactive (Response to an electronic controlled [place] refill request - RxReferenceNumber: [id number]) lorazepam 1 mg tablet RxNorm: 026170 Tablet(s) TAKE TWO TABLETS BY MOUTH AT B EDTIME, ALSO TAKE ONE TABLET BY MOUTH DAILY NEEDED 10/13/2014 10/21/2014 Inactive (Res ponse to an electronic controlled substance refill request - RxReferenceNumber: [id number]) ProAir HFA 90 mcg/ac tuation aerosol inhaler RxNorm: 1603882 1-2 inhale INH QID a s needed ASTHMA 10/13/2014 12/26/2014 Inactive ProAir HFA 90 mcg/ac tuation aerosol inhaler RxNorm: 7804755 1-2 inhale INH QID a s needed ASTHMA 09/18/2014 10/12/2014 Inactive meloxicam 7.5 mg tablet RxNorm: 020500 1 Tablet(s) PO daily 09/18/2014 03/10/2015 Inactive [SAVINGS FOR UNINSURED PATIENTS -- BIN:0 91085, PCN: ASPROD1, Group: [id number], ID# [id number], Process claim through MedImpact, for questions: . THIS IS NOT INSURANCE.] sulfamethoxazole 800 mg-trimethoprim 160 mg tablet RxNorm: 024359 1 Tablet(s) PO BID 09/18/2014 10/07/2014 Inactive levothyroxine 175 mc g tablet RxNorm: 137078 1 Tablet(s) PO daily 09/17/2014 12/11/2014 Inactive levothyroxine 175 mc g tablet RxNorm: 735322 1 Tablet(s) PO daily 09/17/2014 09/16/2014 Inactive lorazepam 1 mg tablet RxNorm: 321358 Tablet(s) TAKE TWO TABLETS BY MOUTH AT B EDTIME, ALSO TAKE ONE TABLET BY MOUTH DAILY NEEDED 09/12/2014 10/11/2014 Inactive (Res ponse to an electronic controlled substance refill request - RxReferenceNumber: [id number]) lorazepam 1 mg tablet RxNorm: 666671 TAKE TWO TABLETS BY MOUTH AT BEDTIME, AL SO TAKE ONE TABLET BY MOUTH DAILY NEEDED 09/08/2014 09/11/2014 Inactive (Res ponse to an electronic controlled substance refill request - RxReferenceNumber: [id number]) meloxicam 7.5 mg tablet RxNorm: 063396 1 Tablet(s) PO daily 09/01/2014 09/17/2014 Inactive [SAVINGS FOR UNINSURED PATIENTS -- BIN:0 71071, PCN: ASPROD1, Group: AME08, ID# [id number], Process claim through MedImpact, for questions: . THIS IS NOT INSURANCE.] lisinopril 20 mg-hyd rochlorothiazide 25 mg tablet RxNorm: 256136 1 Tablet(s) PO daily 09/01/2014 12/29/2014 Inactive [SAVINGS FOR UNINSURED PATIENTS -- BIN:0 30302, PCN: ASPROD1, Group: AME08, ID# [id number], Process claim through MedImpact, for questions: . THIS IS NOT INSURANCE.] tramadol 50 mg tablet RxNorm: 933237 1 Tablet(s) PO Q4H as needed for pain 08/20/2014 11/07/2014 In active [SAVINGS FOR UNINSURED PATIENTS -- BIN:0 93908, PCN: ASPROD1, Group: AME08, ID# [id number], Process claim through MedImp[employer], for questions: . THIS IS NOT INSURANCE.] meloxicam 7.5 mg tablet RxNorm: 995350 1 Tablet(s) PO daily 08/14/2014 08/31/2014 Inactive [SAVINGS FOR UNINSURED PATIENTS -- BIN:0 25652, PCN: ASPROD1, Group: AME08, ID# [id number], Process claim through MedImpact, for questions: . THIS IS NOT INSURANCE.] lorazepam 1 mg tablet RxNorm: 931103 2 Tablet(s) PO QHS and 1 tab qd PRN 08/01/2014 09/08/2014 In active [SAVINGS FOR UNINSURED PATIENTS -- BIN:0 55814, PCN: ASPROD1, Group: AME08, ID# [id number], Process claim through MedImpact, for questions: . THIS IS NOT INSURANCE.] levothyroxine 200 mc g tablet RxNorm: 926593 1 Tablet(s) PO daily 07/31/2014 09/16/2014 Inactive [SAVINGS FOR UNINSURED PATIENTS -- BIN:0 45159, PCN: ASPROD1, Group: AME08, ID# [id number], Process claim through MedImpact, for questions: . THIS IS NOT INSURANCE.] lorazepam 1 mg tablet RxNorm: 024722 2 Tablet(s) PO QHS and 1 tab qd PRN No Start Date 07/31/2014 Inactive Phenergan VC-Codeine oral RxNorm: 718403 oral No S tart Date 11/26/2017 Inactive meloxicam 7.5 mg tablet RxNorm: 790455 1 Tablet(s) PO daily No Start Date 08/13/2014 Inactive lisinopril 20 mg-hyd rochlorothiazide 25 mg tablet RxNorm: 281090 1 Tablet(s) PO daily No Start Date 08/31/2014 Inactive levothyroxine 200 mc g tablet RxNorm: 005447 1 Tablet(s) PO daily No Start Date 07/30/2014 Inactive Diflucan 150 mg tablet RxNorm: 927572 1 Tablet(s) PO every other day No Start Date 10/22/2014 Inactive Zithromax Z-Linus 250 mg tablet RxNorm: 025076 1 Tablet(s) PO UD No Start Date 07/09/2015 Inactive tramadol 50 mg tablet RxNorm: 013822 1 Tablet(s) PO Q6 as needed No Start Date 08/19/2014 Inactive Medication Administered Medication Codes Instruc tions Start Date Status Kenalog 40 mg/mL suspension for injection RxNorm: 7042401 1Milliliter 06/14/2017 N o longer Active Kenalog 40 mg/mL suspension for injection RxNorm: 8951912 1Milliliter 03/27/2017 N o longer Active Kenalog 40 mg/mL suspension for injection RxNorm: 4794736 Milliliter 12/07/2016 No longer Active Kenalog 40 mg/mL suspension for injection RxNorm: 2195539 Milliliter 11/28/2016 No longer Active Immunizations Vaccine [...] 29.7 pg 03/21/2019 Cbc With Differential Ord2 [place]% 10.5 % 03/21/2019 Cbc With Differential Ord2 [...] 1.51 K/ul 03/21/2019 Cbc With Differential Ord2 [place] ABS# 0.6 K/ul 03/21/2019 Cbc With Differential Ord2 Eos ABS# 0.2 K/ul 03/21/2019 Cbc With Differential Ord2 Baso ABS# 0.0 K/ul 03/21/2019 Free T4 Wyw841 FREE T4 1.52 ng/dL 03/21/2019 Comp Metabolic Rda674 NA 141 mEq/L 03/21/2019 Comp Metabolic Iuu280 K 3.9 mEq/L 03/21/2019 Comp Metabolic Ygh844 CL 107 mEq/L 03/21/2019 Comp Metabolic Hga795 CO2 26.0 mEq/L 03/21/2019 Comp Metabolic Dok392 AN ION GAP 12 03/21/2019 Comp Metabolic Xbm240 GL UCOSE 111 mg/dL 03/21/2019 Comp Metabolic Zla474 Cr eat 0.8 mg/dL 03/21/2019 Comp Metabolic Aci411 eG FR 77 ml/min/1.73m2 03/21 Comp Metabolic Dok344 BUN 14 mg/dL 03/21/2019 Comp Metabolic Bva438 B/ C Ratio 18.2 Ratio 03/21/2019 Comp Metabolic Oud456 CA LCIUM 9.2 mg/dL 03/21/2019 Comp Metabolic Wwa082 AL K PHOS 68 U/L 03/21/2019 Comp Metabolic Chd985 T(SGOT) 11 U/L 03/21/2019 Comp Metabolic Mcm683 AL T(SGPT) 8 U/L 03/21/2019 Comp Metabolic Xll042 BI LI T 0.5 mg/dL 03/21/2019 Comp Metabolic Xmc466 AL BUMIN 4.1 g/dL 03/21/2019 Comp Metabolic Mwv740 TP RO 6.3 g/dL 03/21/2019 Comp Metabolic Onj608 GL OB 2.2 g/dL 03/21/2019 Comp Metabolic Sht668 A/ G Ratio 1.9 Ratio 03/21/2019 Comp Metabolic Qoj727 Os mo 282 mOsmo 03/21/2019 Tsh Ord6 TSH (3rd IS) 1.49 uIU/mL 01/21/2019 Free T4 Gwy977 FREE T4 1.15 ng/dL 01/21/2019 Lipid Ord30 CHOL 231 mg/dL 10/24/2018 Lipid Ord30 HDL 56.0 mg/dl 10/24/2018 Lipid Ord30 TRIG 71 mg/dL 10/24/2018 Lipid Ord30 LDL 161 mg/dL 10/24/2018 Lipid Ord30 C/HDL 4.1 Ratio 10/24/2018 Comp Metabolic Ibm719 NA 141 mEq/L 10/24/2018 Comp Metabolic Ayu600 K 3.7 mEq/L 10/24/2018 Comp Metabolic Kgm998 CL 103 mEq/L 10/24/2018 Comp Metabolic Uvi821 CO2 30.0 mEq/L 10/24/2018 Comp Metabolic Yxn074 AN ION GAP 12 10/24/2018 Comp Metabolic Jez422 GL UCOSE 98 mg/dL 10/24/2018 Comp Metabolic Yrz309 Cr eat 0.8 mg/dL 10/24/2018 Comp Metabolic Zoi898 eG FR 71 ml/min/1.73m2 10/24 Comp Metabolic Idz784 BUN 12 mg/dL 10/24/2018 Comp Metabolic Ooz354 B/ C Ratio 14.5 Ratio 10/24/2018 Comp Metabolic Khh571 CA LCIUM 9.2 mg/dL 10/24/2018 Comp Metabolic Zyf062 AL K PHOS 76 U/L 10/24/2018 Comp Metabolic Xdk697 T(SGOT) 12 U/L 10/24/2018 Comp Metabolic Gyc621 AL T(SGPT) 9 U/L 10/24/2018 Comp Metabolic Ciu788 BI LI T 0.5 mg/dL 10/24/2018 Comp Metabolic Ync135 AL BUMIN 4.3 g/dL 10/24/2018 Comp Metabolic Lvm539 TP RO 6.5 g/dL 10/24/2018 Comp Metabolic Qhm774 GL OB 2.2 g/dL 10/24/2018 Comp Metabolic Kow029 A/ G Ratio 2.0 Ratio 10/24/2018 Comp Metabolic Sfk264 Os mo 281 mOsmo 10/24/2018 Free T4 Xtg505 FREE T4 0.76 ng/dL 10/24/2018 Cbc With [...] 30.5 pg 10/24/2018 Cbc With Differential Ord2 [place]% 8.4 % 10/24/2018 Cbc With Differential Ord2 [...] 1.71 K/ul 10/24/2018 Cbc With Differential Ord2 [place] ABS# 0.4 K/ul 10/24/2018 Cbc With Differential [...] 30.0 pg 04/04/2018 Cbc With Differential Ord2 [place]% 10.9 % 04/04/2018 Cbc With Differential Ord2 [...] 1.42 K/ul 04/04/2018 Cbc With Differential Ord2 [place] ABS# 0.6 K/ul 04/04/2018 Cbc With Differential Ord2 Eos ABS# 0.1 K/ul 04/04/2018 Cbc With Differential Ord2 Baso ABS# 0.0 K/ul 04/04/2018 Free T4 Lxs172 FREE T4 1.25 ng/dL 04/04/2018 Tsh Ord6 [...] 30.2 pg 11/28/2017 Cbc With Differential Ord2 [place]% 10.1 % 11/28/2017 Cbc With Differential Ord2 [...] 1.33 K/ul 11/28/2017 Cbc With Differential Ord2 [place] ABS# 0.5 K/ul 11/28/2017 Cbc With Differential Ord2 Eos ABS# 0.1 K/ul 11/28/2017 Cbc With Differential Ord2 Baso ABS# 0.0 K/ul 11/28/2017 Free T4 Kon223 FREE T4 1.43 ng/dL 11/28/2017 Lipid Ord30 CHOL 186 mg/dL 11/28/2017 Lipid Ord30 HDL 54.0 mg/dl 11/28/2017 Lipid Ord30 TRIG 59 mg/dL 11/28/2017 Lipid Ord30 LDL 120 mg/dL 11/28/2017 Lipid Ord30 C/HDL 3.4 Ratio 11/28/2017 Comp Metabolic Nnj245 NA 141 mEq/L 11/28/2017 Comp Metabolic Thh821 K 4.0 mEq/L 11/28/2017 Comp Metabolic Mvw179 CL 105 mEq/L 11/28/2017 Comp Metabolic Ifq803 CO2 29.0 mEq/L 11/28/2017 Comp Metabolic Yeg801 AN ION GAP 11 11/28/2017 Comp Metabolic Wwh265 GL UCOSE 91 mg/dL 11/28/2017 Comp Metabolic Mqo513 Cr eat 0.8 mg/dL 11/28/2017 Comp Metabolic Zqa409 eG FR 74 ml/min/1.73m2 11/28 Comp Metabolic Ahu239 BUN 15 mg/dL 11/28/2017 Comp Metabolic Ght891 B/ C Ratio 18.8 Ratio 11/28/2017 Comp Metabolic Rny422 CA LCIUM 8.6 mg/dL 11/28/2017 Comp Metabolic Ajt218 AL K PHOS 76 U/L 11/28/2017 Comp Metabolic Cut961 T(SGOT) 10 U/L 11/28/2017 Comp Metabolic Zqw266 AL T(SGPT) 8 U/L 11/28/2017 Comp Metabolic Wkz553 BI LI T 0.5 mg/dL 11/28/2017 Comp Metabolic Rgv910 AL BUMIN 4.0 g/dL 11/28/2017 Comp Metabolic Uzy583 TP RO 6.1 g/dL 11/28/2017 Comp Metabolic Chx795 GL OB 2.1 g/dL 11/28/2017 Comp Metabolic Qet723 A/ G Ratio 1.9 Ratio 11/28/2017 Comp Metabolic Ksz225 Os mo 282 mOsmo 11/28/2017 Tsh Ord6 TSH (3rd IS) 3.31 uIU/mL 11/28/2017 Tsh Ord6 hTSH II 1.45 uIU/mL 03/27/2017 Free T4 Mqe576 FREE T4 1.23 ng/dL 03/27/2017 Comp Metabolic Owu730 NA 140 mEq/L 09/28/2016 Comp Metabolic Age134 K 3.9 mEq/L 09/28/2016 Comp Metabolic Giy914 CL 104 mEq/L 09/28/2016 Comp Metabolic Nlf596 CO2 28.0 mEq/L 09/28/2016 Comp Metabolic Xpb806 AN ION GAP 12 09/28/2016 Comp Metabolic Lia976 GL UCOSE 97 mg/dL 09/28/2016 Comp Metabolic Kxx717 Cr eat 0.8 mg/dL 09/28/2016 Comp Metabolic Ccr418 eG FR 79 ml/min/1.73m2 09/28 Comp Metabolic Kiz240 BUN 13 mg/dL 09/28/2016 Comp Metabolic Bzc304 B/ C Ratio 17.1 Ratio 09/28/2016 Comp Metabolic Mdn311 CA LCIUM 8.9 mg/dL 09/28/2016 Comp Metabolic Nle768 AL K PHOS 100 U/L 09/28/2016 Comp Metabolic Xmr597 T(SGOT) 12 U/L 09/28/2016 Comp Metabolic Irf627 AL T(SGPT) 9 U/L 09/28/2016 Comp Metabolic Zwc495 BI LI T 0.4 mg/dL 09/28/2016 Comp Metabolic Eum725 AL BUMIN 4.1 g/dL 09/28/2016 Comp Metabolic Fof360 TP RO 6.6 g/dL 09/28/2016 Comp Metabolic Myf031 GL OB 2.5 g/dL 09/28/2016 Comp Metabolic Mkb730 A/ G Ratio 1.6 Ratio 09/28/2016 Comp Metabolic Vfz060 Os mo 279 mOsmo 09/28/2016 Lipid Ord30 [...] 28.8 pg 09/28/2016 Cbc With Differential Ord2 [place]% 7.2 % 09/28/2016 Cbc With Differential Ord2 [...] 1.41 K/ul 09/28/2016 Cbc With Differential Ord2 [place] ABS# 0.5 K/ul 09/28/2016 Cbc With Differential Ord2 Eos ABS# 0.2 K/ul 09/28/2016 Cbc With Differential Ord2 Baso ABS# 0.0 K/ul 09/28/2016 Free T4 Anj020 FREE T4 1.43 ng/dL 09/28/2016 Tsh Ord6 hTSH II 0.52 uIU/mL 09/28/2016 Tsh Ord6 hTSH II 0.47 uIU/mL 06/16/2016 Comp Metabolic Pbu493 NA 139 mEq/L 06/16/2016 Comp Metabolic Dwy398 K 4.3 mEq/L 06/16/2016 Comp Metabolic Giu807 CL 105 mEq/L 06/16/2016 Comp Metabolic Crm059 CO2 30.0 mEq/L 06/16/2016 Comp Metabolic Asy422 AN ION GAP 8 06/16/2016 Comp Metabolic Qhu321 GL UCOSE 90 mg/dL 06/16/2016 Comp Metabolic Mph392 Cr eat 0.7 mg/dL 06/16/2016 Comp Metabolic Pfm664 eG FR 91 ml/min/1.73m2 06/16 Comp Metabolic Vfu295 BUN 15 mg/dL 06/16/2016 Comp Metabolic Cto187 B/ C Ratio 22.4 Ratio 06/16/2016 Comp Metabolic Hll726 CA LCIUM 8.8 mg/dL 06/16/2016 Comp Metabolic Qhb019 AL K PHOS 79 U/L 06/16/2016 Comp Metabolic Kro383 T(SGOT) 13 U/L 06/16/2016 Comp Metabolic Qqp801 AL T(SGPT) 11 U/L 06/16/2016 Comp Metabolic Rsy707 BI LI T 0.5 mg/dL 06/16/2016 Comp Metabolic Fnt871 AL BUMIN 3.9 g/dL 06/16/2016 Comp Metabolic Jiy667 TP RO 6.1 g/dL 06/16/2016 Comp Metabolic Dvb163 GL OB 2.2 g/dL 06/16/2016 Comp Metabolic Szz645 A/ G Ratio 1.8 Ratio 06/16/2016 Comp Metabolic Tps297 Os mo 278 mOsmo 06/16/2016 Lipid Ord30 [...] 28.9 pg 06/16/2016 Cbc With Differential Ord2 [place]% 8.1 % 06/16/2016 Cbc With Differential Ord2 [...] 1.70 K/ul 06/16/2016 Cbc With Differential Ord2 [place] ABS# 0.4 K/ul 06/16/2016 Cbc With Differential Ord2 Eos ABS# 0.2 K/ul 06/16/2016 Cbc With Differential Ord2 Baso ABS# 0.0 K/ul 06/16/2016 Free T4 Lfh155 FREE T4 1.42 ng/dL 06/16/2016 Free T4 Bej045 FREE T4 1.34 ng/dL 03/04/2016 Tsh Ord6 hTSH II 0.56 uIU/mL 03/04/2016 Tsh Ord6 hTSH II 0.98 uIU/mL 01/27/2016 Free T4 Ize568 FREE T4 1.19 ng/dL 01/27/2016 Free T4 Wtw292 FREE T4 1.69 ng/dL 11/23/2015 Tsh Ord6 hTSH II 0.08 uIU/mL 11/23/2015 Lipid Ord30 CHOL 185 mg/dL 08/21/2015 Lipid Ord30 HDL 50.0 mg/dl 08/21/2015 Lipid Ord30 TRIG 88 mg/dL 08/21/2015 Lipid Ord30 LDL 117 mg/dL 08/21/2015 Lipid Ord30 C/HDL 3.7 Ratio 08/21/2015 Comp Metabolic Rip149 NA 139 mEq/L 08/21/2015 Comp Metabolic Ssq029 K 4.3 mEq/L 08/21/2015 Comp Metabolic Ejb051 CL 102 mEq/L 08/21/2015 Comp Metabolic Pda497 CO2 27.0 mEq/L 08/21/2015 Comp Metabolic Fxr282 AN ION GAP 14 08/21/2015 Comp Metabolic Fzn472 GL UCOSE 89 mg/dL 08/21/2015 Comp Metabolic Pgt314 Cr eat 0.7 mg/dL 08/21/2015 Comp Metabolic Rhz671 eG FR 85 ml/min/1.73m2 08/21 Comp Metabolic Ssu552 BUN 14 mg/dL 08/21/2015 Comp Metabolic Hjb540 B/ C Ratio 19.7 Ratio 08/21/2015 Comp Metabolic Fyy184 CA LCIUM 9.5 mg/dL 08/21/2015 Comp Metabolic Vam472 AL K PHOS 123 U/L 08/21/2015 Comp Metabolic Yjp775 T(SGOT) 13 U/L 08/21/2015 Comp Metabolic Ygu312 AL T(SGPT) 10 U/L 08/21/2015 Comp Metabolic Sju164 BI LI T 0.4 mg/dL 08/21/2015 Comp Metabolic Rgb008 AL BUMIN 4.1 g/dL 08/21/2015 Comp Metabolic Qqm355 TP RO 6.8 g/dL 08/21/2015 Comp Metabolic Ufn721 GL OB 2.7 g/dL 08/21/2015 Comp Metabolic Xac424 A/ G Ratio 1.5 Ratio 08/21/2015 Comp Metabolic Ueh126 Os mo 277 mOsmo 08/21/2015 Free T4 Dss494 FREE T4 1.78 ng/dL 08/21/2015 Tsh Ord6 [...] Ord2 RDW 13.9 % 08/21/2015 Quick Strep Hba1519 Quic k Strep Negative 07/08/2015 Tsh Ord6 hTSH II 0.04 uIU/mL 05/20/2015 Free T4 Cnh012 FREE T4 1.50 ng/dL 05/20/2015 Review of [...] Procedure Codes Date DESTRUCT PREMALG LESION CPT-4: 59731 01/19/2018 URINALYSIS NONAUTO W /O SCOPE CPT-4: 82726 09/12/2017 TRIAMCINOLONE ACET I [place] NOS CPT-4: J3301 06/14/2017 THER/PROPH/DIAG INJ SC/IM CPT-4: 67583 06/14/2017 PRESCRIP TRANSMIT A ERX SY CPT-4: G8553 06/14/2017 TRIAMCINOLONE ACET I [place] NOS CPT-4: J3301 03/27/2017 THER/PROPH/DIAG INJ SC/IM CPT-4: 03332 12/07/2016 TRIAMCINOLONE ACET I [place] NOS CPT-4: J3301 12/07/2016 THER/PROPH/DIAG INJ SC/IM CPT-4: 41284 11/28/2016 TRIAMCINOLONE ACET I [place] NOS CPT-4: J3301 11/28/2016 Vital Signs Date Vital 04/29/2019 Blood Pressure 1: 144/60 Code: 8480-6 BMI: 36.0 Code: 87426-7 Heart Rate 1: 73 bpm Height: 5'6" SpO2: 98% Weight: 223 lbs 03/21/2019 Blood Pressure 1: 132/64 Code: 8480-6 BMI: 36.2 Code: 85624-7 Heart Rate 1: 76 bpm Height: 5'6" SpO2: 94% Weight: 224 lbs 01/22/2019 Blood Pressure 1: 132/66 Code: 8480-6 BMI: 37.1 Code: 63354-7 Heart Rate 1: 73 bpm Height: 5'6" SpO2: 96% Weight: 230 lbs 11/21/2018 Blood Pressure 1: 120/64 Code: 8480-6 Heart Rate 1: 64 bpm 10/30/2018 Blood Pressure 1: 144/70 Code: 8480-6 BMI: 37.0 Code: 53558-4 Heart Rate 1: 76 bpm Height: 5'6" SpO2: 96% Weight: 229 lbs 06/28/2018 Blood Pressure 1: 110/66 Code: 8480-6 BMI: 37.1 Code: 08239-6 Heart Rate 1: 73 bpm Height: 5'6" SpO2: 98% Weight: 230 lbs 04/04/2018 Blood Pressure 1: 128/76 Code: 8480-6 BMI: 37.9 Code: 05929-3 Heart Rate 1: 86 bpm Height: 5'6" SpO2: 98% Weight: 235 lbs 01/19/2018 Blood Pressure 1: 122/68 Code: 8480-6 Heart Rate 1: 78 bpm Height: 5'6" SpO2: 97% Weight: 01/05/2018 Blood Pressure 1: 138/78 Code: 8480-6 BMI: 38.4 Code: 25592-4 Heart Rate 1: 73 bpm Height: 5'6" SpO2: 95% Weight: 238 lbs 11/29/2017 Blood Pressure 1: 138/80 Code: 8480-6 BMI: 38.7 Code: 25122-9 Heart Rate 1: 71 bpm Height: 5'6" SpO2: 97% Weight: 240 lbs 10/25/2017 Blood Pressure 1: 136/72 Code: 8480-6 BMI: 38.7 Code: 69841-2 Heart Rate 1: 92 bpm Height: 5'6" SpO2: 98% Weight: 240 lbs 09/12/2017 Blood Pressure 1: 132/68 Code: 8480-6 BMI: 39.7 Code: 00195-0 Heart Rate 1: 76 bpm Height: 5'6" SpO2: 98% Weight: 246 lbs 06/14/2017 Blood Pressure 1: 130/80 Code: 8480-6 BMI: 39.4 Code: 52698-9 Heart Rate 1: 73 bpm Height: 5'6" SpO2: 95% Temperature: 36.9 (C ) / 98.5 (F) Weight: 244 lbs 05/10/2017 Blood Pressure 1: 128/68 Code: 8480-6 BMI: 38.7 Code: 32958-5 Heart Rate 1: 69 bpm Height: 5'6" SpO2: 97% Weight: 240 lbs 04/19/2017 Blood Pressure 1: 138/74 Code: 8480-6 BMI: 38.7 Code: 64165-5 Heart Rate 1: 73 bpm Height: 5'6" SpO2: 96% Weight: 240 lbs 03/27/2017 Blood Pressure 1: 142/84 Code: 8480-6 BMI: 38.7 Code: 61570-8 Heart Rate 1: 69 bpm Height: 5'6" SpO2: 97% Weight: 240 lbs 01/26/2017 Blood Pressure 1: 136/68 Code: 8480-6 Heart Rate 1: 64 bpm Height: 5'6" SpO2: 96% Weight: 12/07/2016 Blood Pressure 1: 130/72 Code: 8480-6 BMI: 39.7 Code: 20318-6 Heart Rate 1: 73 bpm Height: 5'6" SpO2: 93% Temperature: 36.8 (C ) / 98.3 (F) Weight: 246 lbs 11/28/2016 Blood Pressure 1: 138/60 Code: 8480-6 BMI: 39.7 Code: 03685-1 Heart Rate 1: 81 bpm Height: 5'6" SpO2: 97% Weight: 246 lbs 11/15/2016 Blood Pressure 1: 134/78 Code: 8480-6 BMI: 39.7 Code: 87463-1 Heart Rate 1: 75 bpm Height: 5'6" SpO2: 93% Temperature: 36.8 (C ) / 98.2 (F) Weight: 246 lbs 10/17/2016 Blood Pressure 1: 120/64 Code: 8480-6 BMI: 38.4 Code: 91109-4 Heart Rate 1: 69 bpm Height: 5'6" SpO2: 98% Temperature: 37.2 (C ) / 98.9 (F) Weight: 238 lbs 09/28/2016 Blood Pressure 1: 158/76 Code: 8480-6 BMI: 39.4 Code: 15146-8 Heart Rate 1: 71 bpm Height: 5'6" SpO2: 97% Weight: 244 lbs 06/29/2016 Blood Pressure 1: 124/60 Code: 8480-6 BMI: 38.7 Code: 83957-4 Heart Rate 1: 71 bpm Height: 5'6" SpO2: 98% Weight: 240 lbs 06/01/2016 Blood Pressure 1: 120/62 Code: 8480-6 BMI: 38.6 Code: 13632-0 Heart Rate 1: 76 bpm Height: 5'6" SpO2: 98% Weight: 239 lbs 05/11/2016 Blood Pressure 1: 140/80 Code: 8480-6 BMI: 38.1 Code: 84427-0 Heart Rate 1: 88 bpm Height: 5'6" SpO2: 97% Weight: 236 lbs 04/05/2016 Blood Pressure 1: 142/80 Code: 8480-6 BMI: 38.4 Code: 97186-1 Heart Rate 1: 96 bpm Height: 5'6" SpO2: 98% Weight: 238 lbs 04/01/2016 Blood Pressure 1: 136/88 Code: 8480-6 BMI: 39.2 Code: 01582-2 Heart Rate 1: 86 bpm Height: 5'6" SpO2: 96% Weight: 243 lbs 01/26/2016 Blood Pressure 1: 124/76 Code: 8480-6 BMI: 39.2 Code: 81160-5 Heart Rate 1: 76 bpm Height: 5'6" SpO2: 97% Weight: 243 lbs 12/21/2015 Blood Pressure 1: 120/64 Code: 8480-6 BMI: 37.0 Code: 96964-9 Heart Rate 1: 98 bpm Height: 5'6" SpO2: 97% Weight: 229 lbs 10/12/2015 Blood Pressure 1: 150/64 Code: 8480-6 BMI: 37.4 Code: 57507-7 Heart Rate 1: 70 bpm Height: 5'6" SpO2: 94% Weight: 232 lbs 08/24/2015 Blood Pressure 1: 128/74 Code: 8480-6 BMI: 36.8 Code: 81424-2 Heart Rate 1: 88 bpm Height: 5'6" SpO2: 94% Temperature: 36.8 (C ) / 98.3 (F) Weight: 228 lbs 06/01/2015 Blood Pressure 1: 134/68 Code: 8480-6 BMI: 36.0 Code: 23207-8 Heart Rate 1: 70 bpm Height: 5'6" SpO2: 98% Weight: 223 lbs 05/21/2015 Blood Pressure 1: 126/72 Code: 8480-6 BMI: 35.2 Code: 11142-6 Heart Rate 1: 63 bpm Height: 5'6" SpO2: 95% Weight: 218 lbs 5 oz 03/26/2015 Blood Pressure 1: 140/62 Code: 8480-6 BMI: 35.3 Code: 07935-8 Heart Rate 1: 68 bpm Height: 5'6" Weight: 219 lbs 03/11/2015 Blood Pressure 1: 130/80 Code: 8480-6 BMI: 34.9 Code: 56837-8 Heart Rate 1: 76 bpm Height: 5'6" Temperature: 37.1 (C ) / 98.7 (F) Weight: 216 lbs 12/11/2014 Blood Pressure 1: 134/62 Code: 8480-6 BMI: 34.2 Code: 87655-9 Heart Rate 1: 72 bpm Height: 5'6" Weight: 212 lbs 09/18/2014 Blood Pressure 1: 148/80 Code: 8480-6 BMI: 34.7 Code: 36210-0 Heart Rate 1: 68 bpm Height: 5'6" Weight: 215 lbs 07/31/2014 Blood Pressure 1: 124/72 Code: 8480-6 BMI: 36.2 Code: 49249-5 Heart Rate 1: 68 bpm Height: 5'6" [...] Severity mi ld 09/28/2016 None hypothyroid [employer]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 09/28/2016 None hypothyroid Onset and [...] Severity mi ld 06/01/2016 None hypothyroid [employer]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 06/01/2016 None hypothyroid Onset and [...] and Resolution resolved 04/05/2016 None 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 P ATIENT, LEVEL IV Diagnosis: Hypothyroidism, unspecified[ICD10: E03.9] Diagnosis: Changes in skin texture[ICD10: R23.4] Diagnosis: Mild intermittent asthma, uncomplicated[ICD10: J45.20] Lynn Finn MD, [facility] CPT-4: 50738 03/21/2019 ([id number]) 20850 EST. P ATIENT, LEVEL IV Diagnosis: Mild intermittent asthma, uncomplicated[ICD10: J45.20] Diagnosis: Hypothyroidism, unspecified[ICD10: E03.9] Diagnosis: Low back pain[ICD10: M54.5] Lynn iFnn MD, [facility] CPT- 4: 69430 01/22/2019 ([id number]) Edgar watkins no charge Diagnosis: Essential (primary) hypertension[ICD10: I10] Damari Finn MD, [facility] CPT-4: 80619 11/21/2018 ([id number]) 98486 EST. P ATIENT, LEVEL IV Diagnosis: Essential (primary) hypertension[ICD10: I10] Diagnosis: Hypothyroidism, unspecified[ICD10: E03.9] Diagnosis: Low back pain[ICD10: M54.5] Lynn Finn MD, [facility] CPT- 4: 78606 10/30/2018 ([id number]) 11157 EST. P ATIENT, LEVEL III Diagnosis: Acute recurrent maxillary sinusitis[ICD10: J01.01] Diagnosis: Other mucopurulent conjunctivitis, left eye[ICD10: H10.022] Diagnosis: Other allergic rhinitis[ICD10: J30.89] Lynn Finn MD, [facility] CPT-4: 63751 06/28/2018 23480 EST. PATIENT, LEVEL IV Diagnosis: Essential (primary) hypertension[ICD10: I10] Diagnosis: Other specified hypothyroidism[ICD10: E03.8] Diagnosis: Other specified anemias[ICD10: D64.89] Diagnosis: Localized edema[ICD10: R60.0] Mishel Finn MD, [facility] CPT-4: 79448 04/04/2018 ([id number]) 76381 EST. P ATIENT, LEVEL III Diagnosis: Mild persistent asthma, uncomplicated[ICD10: J45.30] Diagnosis: Actinic keratosis[ICD10: L57.0] Lynn iFnn MD, [facility] CPT- 4: 84538 01/05/2018 ([id number]) Miscellaneou s no charge Diagnosis: Essential (primary) hypertension[ICD10: I10] Damari Finn MD, [facility] CPT-4: 50546 12/12/2017 39476 EST. PATIENT, LEVEL III Diagnosis: Essential (primary) hypertension[ICD10: I10] Diagnosis: Atrophy of thyroid (acquired)[ICD10: E03.4] Diagnosis: Low back pain[ICD10: M54.5] Mishel Finn MD, [facility] CPT-4: 68172 11/29/2017 28173 EST. PATIENT, LEVEL III Diagnosis: Pain in left hip[ICD10: M25.552] Mishel Finn MD, [facility] CPT-4: 26123 10/25/2017 74536 EST. PATIENT, LEVEL IV Diagnosis: Localized edema[ICD10: R60.0] Mishel Finn MD, [facility] CPT-4: 10702 09/12/2017 16026 EST. PATIENT, LEVEL IV Diagnosis: Mild persistent asthma with (acute) exacerbation[ICD10: J45.31] Mishel Finn MD, [facility] CPT-4: 81976 06/14/2017 83588 EST. PATIENT, LEVEL III Diagnosis: Localized edema[ICD10: R60.0] Diagnosis: Mild persistent asthma, uncomplicated[ICD10: J45.30] Mishel Finn MD, [facility] CPT-4: 03964 05/10/2017 55114 EST. PATIENT, LEVEL III Diagnosis: Mild persistent asthma with (acute) exacerbation[ICD10: J45.31] Mishel Finn MD, [facility] CPT-4: 87883 04/19/2017 ([id number]) 21819 EST. P ATIENT, LEVEL IV Diagnosis: Contusion of left wrist, initial encounter[ICD10: S60.212A] Diagnosis: Hypothyroidism, unspecified[ICD10: E03.9] Diagnosis: Mild persistent asthma with (acute) exacerbation[ICD10: J45.31] Diagnosis: Low back pain[ICD10: M54.5] Lynn Finn MD, [facility] CPT- 4: 15013 03/27/2017 ([id number]) 35027 EST. P ATIENT, LEVEL IV Diagnosis: Essential (primary) hypertension[ICD10: I10] Diagnosis: Atrophy of thyroid (acquired)[ICD10: E03.4] Diagnosis: Low back pain[ICD10: M54.5] Damari Finn MD, [facility] CPT-4: 26839 01/26/2017 15244 EST. PATIENT, LEVEL III Diagnosis: Other allergic rhinitis[ICD10: J30.89] Diagnosis: Mild persistent asthma with (acute) exacerbation[ICD10: J45.31] Mishel Finn MD, [facility] CPT-4: 94991 12/07/2016 04816 EST. PATIENT, LEVEL III Diagnosis: Mild persistent asthma with (acute) exacerbation[ICD10: J45.31] Mishel Finn MD, [facility] CPT-4: 20167 11/28/2016 35340 EST. PATIENT, LEVEL III Diagnosis: Mild persistent asthma with (acute) exacerbation[ICD10: J45.31] Diagnosis: Acute bronchitis due to other specified organisms[ICD10: J20.8] Mishel Finn MD, [facility] CPT-4: 04014 11/15/2016 03849 EST. PATIENT, LEVEL IV Diagnosis: Other acute sinusitis[ICD10: J01.80] Diagnosis: Other allergic rhinitis[ICD10: J30.89] Diagnosis: Mild persistent asthma with (acute) exacerbation[ICD10: J45.31] Mishel Finn MD, [facility] CPT-4: 84658 10/17/2016 ([id number]) 67383 EST. P ATIENT, LEVEL IV Diagnosis: Essential (primary) hypertension[ICD10: I10] Diagnosis: Low back pain[ICD10: M54.5] Damari Finn MD, [facility] CPT-4: 55019 09/28/2016 55045 EST. PATIENT, LEVEL III Diagnosis: Tinea barbae and tinea capitis[ICD10: B35.0] Diagnosis: Other specified hypothyroidism[ICD10: E03.8] Mishel Finn MD, [facility] CPT-4: 99574 06/29/2016 ([id number]) 34395 EST. P ATIENT, LEVEL IV Diagnosis: Essential (primary) hypertension[ICD10: I10] Diagnosis: Atrophy of thyroid (acquired)[ICD10: E03.4] Diagnosis: Rash and other nonspecific skin eruption[ICD10: R21] Damari Finn MD, [facility] CPT-4: 87700 06/01/2016 ([id number]) 86985 EST. P ATIENT, LEVEL III Diagnosis: Cellulitis of groin[ICD10: L03.314] Damari Finn MD, [facility] CPT- 4: 93249 05/11/2016 ([id number]) 02397 EST. P ATIENT, LEVEL IV Diagnosis: Hypothyroidism, unspecified[ICD10: E03.9] Diagnosis: Candidiasis of vulva and vagina[ICD10: B37.3] Diagnosis: Essential (primary) hypertension[ICD10: I10] Diagnosis: Low back pain[ICD10: M54.5] Lynn Finn MD, [facility] CPT- 4: 46423 04/05/2016 70949 EST. PATIENT, LEVEL III Diagnosis: Other acute sinusitis[ICD10: J01.80] Diagnosis: Rash and other nonspecific skin eruption[ICD10: R21] Mishel Finn MD, [facility] CPT-4: 60356 04/01/2016 ([id number]) 94273 EST. P ATIENT, LEVEL IV Diagnosis: Essential (primary) hypertension[ICD10: I10] Diagnosis: Hypothyroidism, unspecified[ICD10: E03.9] Diagnosis: Low back pain[ICD10: M54.5] Diagnosis: Other obesity due to excess calories[ICD10: E66.09] Lynn Finn MD, [facility] CPT-4: 39169 01/26/2016 53325 EST. PATIENT, LEVEL IV Diagnosis: Essential (primary) hypertension[ICD10: I10] Diagnosis: Cutaneous abscess of face[ICD10: L02.01] Mishel Finn MD, [facility] CPT-4: 08695 12/21/2015 ([id number]) 91990 EST. P ATIENT, LEVEL III Diagnosis: Cutaneous abscess of groin[ICD10: L02.214] Diagnosis: Hypothyroidism, unspecified[ICD10: E03.9] Lynn Finn MD, [facility] CPT-4: 59920 10/12/2015 ([id number]) 45031 EST. P ATIENT, LEVEL III Diagnosis: Essential (primary) hypertension[ICD10: I10] Diagnosis: Hypothyroidism, unspecified[ICD10: E03.9] Diagnosis: Allergic rhinitis, unspecified[ICD10: J30.9] Lynn Finn MD, [facility] CPT-4: 85441 08/24/2015 ([id number]) 04203 EST. P ATIENT, LEVEL III Diagnosis: Skin infection[ICD9: 686.9] Damari Finn MD, [facility] CPT-4: 68295 06/01/2015 ([id number]) 50226 EST. P ATIENT, LEVEL III Diagnosis: Hypothyroidism[ICD9: 244.9] Diagnosis: ESSENTIAL HYPERTENSION[ICD9: 401.9] Damari Finn MD, [facility] CPT- 4: 45189 05/21/2015 ([id number]) 50797 EST. P ATIENT, LEVEL III Diagnosis: Hypothyroidism[ICD9: 244.9] Diagnosis: Fingernail abnormalities[ICD9: 703.8] Lynn Finn MD, [facility] CPT-4: 11928 03/26/2015 ([id number]) 16435 EST. P ATIENT, LEVEL II Diagnosis: Hypothyroidism[ICD9: 244.9] Marizta Finn MD, [facility] CPT-4: 20601 03/11/2015 ([id number]) 54120 EST. P ATIENT, LEVEL IV Diagnosis: ESSENTIAL HYPERTENSION[ICD9: 401.9] Diagnosis: Low back pain[ICD9: 724.2] Diagnosis: Hypothyroidism[ICD9: 244.9] [facility] CPT-4: 62115 12/11/2014 ([id number]) 43741 EST. P ATIENT, LEVEL IV Diagnosis: Hidradenitis suppurativa[ICD9: 705.83] Diagnosis: ESSENTIAL HYPERTENSION[ICD9: 401.9] Diagnosis: Low back pain[ICD9: 724.2] Diagnosis: Lumbar spinal stenosis[ICD9: 724.02] Diagnosis: HYPOTHYROIDISM[ICD9: 244.9] [facility] CPT-4: 24393 09/18/2014 Office outpatient ne w 30 minutes Diagnosis: ESSENTIAL HYPERTENSION[ICD9: 401.9] Diagnosis: Hypothyroidism[ICD9: 244.9] Diagnosis: Low back pain[ICD9: 724.2] [facility] CPT- 4: 33810 07/31/2014 Plan of Care Planned Activity Notes [...] or concerns. 04/29/2019 Appointment: Mishel Balderrama WPtel[facility] ([facility] min) Complex 04/29/2019 Patient Education: Patient Medication Summary Completed 04/29/2019 Appointment: Lynn Arenas WPtel: [phone] (30 min) Complex 04/23/2019 Visit Plan: Hypothyroidism -patient is having symptoms of over supplementation -check labs today Skin changes-patient used to see Dr Solitario but hasn't see anyone recently -recommend skin check with Dr Yamel boyd- stable- no change in current treatment 03/21/2019 Appointment: Lynn Aren[facility]Ptel[facility] [phone] [phone] (30 min) Complex 03/21/2019 Patient Education: Patient [...] practice. 01/22/2019 Appointment: Lynn Aren[facility]Ptel[facility] [phone] [phone] (30 min) Complex 01/22/2019 Patient Education: Patient [...] indicated 10/30/2018 Appointment: Lynn Arenas WPtel: [phone] [phone] [place] (30 min) Complex 10/30/2018 Patient Education: Patient Medication Summary Completed 10/30/2018 Patient Education: Hypertension Completed 10/30/2018 Patient Education: Back Pain Completed 10/30/2018 Appointment: Lynn Arenas WPtel: [phone] [phone] [place] (30 min) Complex 10/26/2018 Patient Education: Patient Medication Summary Completed 10/23/2018 Appointment: Lynn Arenas WPtel: [phone] [phone] [place] (15 min) Moderate 10/19/2018 Appointment: Damari Finn WPtel: [address] [facility] [place] (15 min) Moderate 09/19/2018 Visit Plan: [...] times daily. 06/28/2018 Appointment: [facility] Arenas [facility]Ptel[facility] [phone] [phone] [place] (30 min) Complex 06/28/2018 Patient Education: [...] to monitor. 04/04/2018 Appointment: Mishel Balderrama WPtel: [address] [place], [place] [address] (15 min) Moderate 04/04/2018 Patient Education: Patient Medication Summary Completed 04/04/2018 Visit Plan: Wound Instructions - Pt was instructed to keep the wound clean, wash with antibacterial soap, use triple antibiotic ointment, call if redness, pustular drainage, or any other acute concerns. 01/19/2018 Appointment: Lynn Arenas WPtel: [phone] [phone] (30 min) Complex 01/19/2018 Patient Education: [...] concerns. 01/05/2018 Appointment: Lynn Arenas WPtel: [phone] [phone] (30 min) Complex 01/05/2018 Patient Education: Patient [...] improve. 11/29/2017 Appointment: Mishel Balderrama WPtel: [phone] [facility] [place] (30 min) Complex 11/29/2017 Patient Education: [...] improve. 10/25/2017 Appointment: Mishel Balderrama WPtel: [phone] [facility] [place] (30 min) Complex 10/25/2017 Patient Education: [...] peripheral edema. 09/12/2017 Appointment: Mishel Balderrama WPtel: [phone] [facility] [place] (30 min) Complex 09/12/2017 Patient Education: Patient Medication Summary Completed 09/12/2017 Appointment: Lynn Arenas WPtel: [phone] [phone] [place] (30 min) Complex 06/27/2017 Visit Plan: [...] acute changes. 06/14/2017 Appointment: Mishel Balderrama WPtel: [facility]4 [facility] (15 min) Moderate 06/14/2017 Patient Education: Patient [...] acute changes 05/10/2017 Appointment: Mishel Balderramatel: [phone] [facility] [place] (15 min) Moderate 05/10/2017 Patient Education: [...] changes. 04/19/2017 Appointment: Mis[facility] Balderrama WPtel: [phone] [facility] (15 min) Moderate 04/19/2017 Patient Education: Patient [...] on previous levels of control. Low back nljh-owmujuq-krvuzs tramadol for prn use 03/27/2017 Appointment: Lynn Arenas WPtel: [phone] (30 min) Complex 03/27/2017 Patient Education: Patient [...] not improve. 01/26/2017 Appointment: Damari Finn WPtel: [facility] (15 min) Moderate 01/26/2017 Patient [...] concerns. 12/07/2016 Appointment: Mishel Balderrama WPtel: [phone] [facility] (15 min) Moderate 12/07/2016 Patient Education: Patient [...] symptoms. 11/28/2016 Appointment: Mishel Balderrama WPtel: [phone] [facility] (15 min) Moderate 11/28/2016 Patient Education: Patient Medication Summary Completed 11/28/2016 Appointment: Mishel Balderrama WPtel: [facility]5 [facility] (15 min) Moderate 11/24/2016 Visit [...] changes. 11/15/2016 Appointment: Mishel Balderrama WPtel: [phone] [facility] (30 min) Complex 11/15/2016 Patient [...] acute changes. 10/17/2016 Appointment: Mishel Balderrama WPtel: [phone] [facility] (30 min) Complex 10/17/2016 Patient Education: Patient [...] tylenol 09/28/2016 Appointment: [facility] [phone] [facility] (15 min) Moderate 09/28/2016 Patient [...] control. 06/29/2016 Appointment: Lynn Arenas WPtel: [phone] [phone] [place] (15 min) Moderate 06/29/2016 Patient Education: [...] fluconazole 06/01/2016 Appointment: Damari Finn WPtel: [phone] [phone] (15 min) Moderate 06/01/2016 Patient Education: Patient Medication Summary Completed 06/01/2016 Patient Education: Obesity Completed 06/01/2016 Visit Plan: Cellulitis - continue w ith oral antibiotics as previously directed, return to clinic as previously directed, call for acute change in symptoms, worsening redness, warmth, discharge. 05/11/2016 Appointment: Damari Finn WPtel: [phone] [phone] (15 min) Moderate 05/11/2016 Patient Education: Patient [...] any concerns. 04/01/2016 Appointment: Lynn Arenas WPtel: [phone] (30 min) Complex 04/01/2016 Patient Education: Patient Medication Summary Completed 04/01/2016 Patient Education: Obesity Completed 04/01/2016 Appointment: Lynn Arenas WPtel: [phone] [phone] (30 min) Complex 03/29/2016 Visit [...] levels of control. Low back pain-refill tramadol Adxoa-gbelwyitaq-jmlypeoo resolved 01/26/2016 Appointment: Lynn Arenas WPtel: [phone] [phone] (30 min) Complex 01/26/2016 Patient Education: Patient Medication Summary Completed 01/26/2016 Patient Education: Obesity Completed 01/26/2016 Care Plan: BMI Above normal followup RADHA F-MGMT EDUC & TRAIN 1 PT Pending 01/26/2016 Care Plan: Referral Order SNOMED-CT : [id number] Pending 01/07/2016 Appointment: Lynn Arenas WPtel: [phone] [phone] (15 min) Moderate 12/24/2015 Visit Plan: Hypertension [...] improving. 06/01/2015 Appointment: Dam[facility] Finn [facility]Ptel: [phone] [facility] (15 min) Moderate 06/01/2015 Patient [...] refill tramadol 12/11/2014 Appointment: Damari Finn WPtel: [facility] follow up 12/11/2014 Patient Education: Patient Medication Summary Completed 12/11/2014 Patient Education: Hypertension Completed 12/11/2014 Appointment: Damari Finn WPtel: [address] [place] [address] follow up 11/27/2014 Visit Plan: Hidradenitis Suppurativ [...] to get her back MRI done at [facility] in [place] as that is where her specialist will be once we get her an appt with one of the local Neurosurgeons. 09/18/2014 Appointment: Damari Finn WPtel: [facility] Follow up 09/18/2014 Patient Education: Patient Medication Summary Completed 09/18/2014 Patient Education: Hypertension Completed 09/18/2014 Visit Plan: Hypertension - well con yunier - continue with current medications, continue with [...] scheduled 07/31/2014 Appointment: Lynn Aren[facility] WPtel[facility] [phone] [phone] New Patient 07/31/2014 Patient Education: Patient Medication [...] worsening or does not improve. Declined Procedure: (87674) FLU VAC NO PRSV 4 JUSTYNA 3 [...] . 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 Chronic back pain - refill tramadol prednisone taper - i f no better [...] or with any changes, questions, or concerns. . Wound Instructions - Pt was instructed [...] referral to Dr. Daugherty. Will refer pt. juanjose or radha . Sinusitis - Pt has acute infection [...] . 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 Low back wxmb-yhebjwk-hydecu tramadol for prn use . Brittle fingernail [...] levels of control. Low back pain-refill tramadol Okeuh-xulowbwukm-wjlhcdvr resolved . Hypertension - wel l controlled [...] acute changes. I will call your tra lizzethol to [...] to get her back MRI done at [facility] in [place] as that is where her specialist will [...]
--- OUTSIDE RECORDS SUMMARY | 2020-02-20 18:52 | XMS REPORT | CCD ---
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 Unknown Has never used illegal drugs 014 Allergies, Adverse Reactions, Alerts Substance Reaction Codes Entered Date Inactivated Date Status * NO KNOWN FOOD BEVERLY RGIES Unknown 07/31/2014 No Inactive Date Active bactrim hives, rash RxNorm: 082332 04/05/2016 No Inactive Date Active Past Medical History Illness Codes Condition Status Onset Date Resolved Date Changes in skin texture ICD-9: 782.8 ICD-10: [...] ICD-9: 110.0 ICD-10: B35.0 Active 06/28/2016 Unknown Rash and other nonsp ecific skin eruption ICD-9: 782.1 ICD-10: R21 Active 05/31/2016 Unknown Cellulitis of groin ICD- 9: 682.2 [...] Condition Codes Effectiv e Dates Condition Status Changes in skin texture ICD-9: 782.8 ICD-10: [...] capitis ICD-9: 110.0 ICD-10: B35.0 06/28/2016 Active Rash and other nonsp ecific skin eruption ICD-9: 782.1 ICD-10: R21 05/31/2016 Active Cellulitis of groin ICD- 9: 682.2 [...] Fill Instructions tramadol 50 mg tablet RxNorm: 415253 1 Tablet(s) PO Q6 PRN as needed for pain 04/09/2019 05/08/2019 Ac tive levothyroxine 125 mc g tablet RxNorm: 264976 1 Tablet(s) PO daily TAKE ONE TABLET BY MOUTH DAILY ON AN EMPTY STOMACH 03/25/2019 06/16/2020 Active lorazepam 1 mg tablet RxNorm: 098055 Tablet(s) TAKE TWO TABLETS BY MOUTH AT B EDTIME NEEDED FOR INSOMNIA AND ONE TABLET DAILY NEEDED ANXIETY 03/15/2019 05/13/2019 Active tramadol 50 mg tablet RxNorm: 779707 1 Tablet(s) PO Q4 PRN as needed for pain 03/15/2019 04/08/2019 In active tramadol 50 mg tablet RxNorm: 455792 1 Tablet(s) PO Q4 PRN as needed for pain 02/20/2019 03/14/2019 In active lorazepam 1 mg tablet RxNorm: 514995 Tablet(s) TAKE TWO TABLETS BY MOUTH AT B EDTIME NEEDED FOR INSOMNIA AND ONE TABLET DAILY NEEDED ANXIETY 01/04/2019 03/03/2019 Inactive tramadol 50 mg tablet RxNorm: 890759 1 Tablet(s) PO Q4 PRN as needed for pain 12/05/2018 01/12/2019 In active Keflex 500 mg capsule RxNorm: 952869 1 Capsule(s) PO TID 12/05/2018 12/11/2018 Inactive ciprofloxacin 0.3 % eye drops RxNorm: 344102 INSTILL TWO DROPS TO THE AFFECTED EYE(S) THREE TIMES A DAY 11/23/2018 12/25/2018 Inactive ProAir HFA 90 mcg/ac tuation aerosol inhaler RxNorm: 3657521 1-2 Puff(s) INH Q4 P RN INHALE 1 TO 2 PUFFS FOUR TIMES A DAY NEEDED FOR ASTHMA 10/30/2018 01/27/2019 Inactive levothyroxine 137 mc g tablet RxNorm: 372891 1 Tablet(s) PO daily TAKE ONE TABLET BY MOUTH DAILY ON AN EMPTY STOMACH 10/30/2018 03/24/2019 Inactive tramadol 50 mg tablet RxNorm: 949733 1 Tablet(s) PO Q4 PRN as needed for pain 10/29/2018 12/04/2018 In active levothyroxine 125 mc g tablet RxNorm: 815532 1 Tablet(s) PO daily TAKE ONE TABLET BY MOUTH DAILY ON AN EMPTY STOMACH 09/06/2018 10/29/2018 Inactive lorazepam 1 mg tablet RxNorm: 662999 Tablet(s) TAKE TWO TABLETS BY MOUTH AT B EDTIME NEEDED FOR INSOMNIA AND ONE TABLET DAILY NEEDED ANXIETY 09/06/2018 11/02/2018 Inactive tramadol 50 mg tablet RxNorm: 734986 1 Tablet(s) PO Q4 PRN as needed for pain 09/06/2018 10/15/2018 In active tramadol 50 mg tablet RxNorm: 923569 1 Tablet(s) PO Q4 PRN as needed for pain 07/06/2018 08/14/2018 In active ciprofloxacin 0.3 % eye drops RxNorm: 134976 2 Drop(s) ophthalmic (eye) TID 06/28/2018 07/07/2018 In active lorazepam 1 mg tablet RxNorm: 585517 Tablet(s) TAKE TWO TABLETS BY MOUTH AT B EDTIME NEEDED FOR INSOMNIA AND ONE TABLET DAILY NEEDED ANXIETY 06/28/2018 08/26/2018 Inactive doxycycline hyclate 100 mg tablet RxNorm: 7786415 1 Tablet(s) PO BID 06/28/2018 07/04/2018 Inactive tramadol 50 mg tablet RxNorm: 409628 1 Tablet(s) PO Q4 PRN as needed for pain 06/13/2018 07/05/2018 In active lorazepam 1 mg tablet RxNorm: 815142 Tablet(s) TAKE TWO TABLETS BY MOUTH AT B EDTIME NEEDED FOR INSOMNIA AND ONE TABLET DAILY NEEDED ANXIETY 05/23/2018 06/27/2018 Inactive tramadol 50 mg tablet RxNorm: 262820 1 Tablet(s) PO Q4 PRN as needed for pain 05/23/2018 06/12/2018 In active levothyroxine 125 mc g tablet RxNorm: 719240 Tablet(s) TAKE ONE TA BLET BY MOUTH DAILY ON AN EMPTY STOMACH 05/23/2018 09/05/2018 Inactive tramadol 50 mg tablet RxNorm: 118916 1 Tablet(s) PO Q4 PRN as needed for pain 05/17/2018 05/22/2018 In active levothyroxine 125 mc g tablet RxNorm: 823332 TAKE ONE TABLET BY [facility] DAILY 05/15/2018 06/27/2018 In active levothyroxine 125 mc g tablet RxNorm: 736948 TAKE ONE TABLET BY [facility] DAILY 05/15/2018 06/27/2018 In active tramadol 50 mg tablet RxNorm: 178981 1 Tablet(s) PO Q4 PRN as needed for pain 04/30/2018 05/16/2018 In active Advair Diskus 100 mc g-50 mcg/dose powder for inhalation RxNorm: 0193625 1 Puff(s) INH BID 04/06/2018 01/21/2019 Inactive Symbicort 80 mcg-4.5 mcg/actuation HFA aerosol inhaler RxNorm: 2521041 2 Puff(s) INH BID 04/06/2018 01/21/2019 Inactive Advair Diskus 250 mc g-50 mcg/dose powder for inhalation RxNorm: 4457328 1 Puff(s) INH BID 04/05/2018 09/01/2018 Inactive Zyrtec 10 mg tablet RxNorm: 9441145 1 Tablet(s) PO daily x1 week then PRN 04/05/2018 08/02/2018 In active lisinopril 20 mg-hyd rochlorothiazide 25 mg tablet RxNorm: 078706 Tablet(s) TAKE ONE TABLET BY MOUTH DAILY 04/05/2018 10/29/2018 Inactive Zyrtec 10 mg tablet RxNorm: 7447087 1 Tablet(s) PO daily 04/04/2018 05/03/2018 Inactive tramadol 50 mg tablet RxNorm: 996659 1 Tablet(s) PO Q4 PRN as needed for pain 03/13/2018 04/21/2018 In active lorazepam 1 mg tablet RxNorm: 329370 Tablet(s) TAKE TWO TABLETS BY MOUTH AT B EDTIME NEEDED FOR INSOMNIA AND ONE TABLET DAILY NEEDED ANXIETY 03/02/2018 04/30/2018 Inactive levothyroxine 125 mc g tablet RxNorm: 005185 1 Tablet(s) PO daily 02/06/2018 05/06/2018 Inactive levothyroxine 125 mc g tablet RxNorm: 307795 TAKE ONE TABLET BY [facility] DAILY ON AN EMPTY STOMACH 02/06/2018 05/22/2018 Inactive tramadol 50 mg tablet RxNorm: 095189 1 Tablet(s) PO Q4 PRN as needed for pain 01/26/2018 03/06/2018 In active lorazepam 1 mg tablet RxNorm: 220028 Tablet(s) TAKE TWO TABLETS BY MOUTH AT B EDTIME NEEDED FOR INSOMNIA AND ONE TABLET DAILY NEEDED ANXIETY 01/23/2018 06/27/2018 Inactive Symbicort 80 mcg-4.5 mcg/actuation HFA aerosol inhaler RxNorm: 9766191 INH 01/05/2018 06/27/2018 In active tramadol 50 mg tablet RxNorm: 466372 1 Tablet(s) PO Q4 PRN as needed for pain 01/04/2018 01/25/2018 In active Advair Diskus 250 mc g-50 mcg/dose powder for inhalation RxNorm: 7495224 1 Puff(s) INH BID 11/29/2017 03/28/2018 Inactive hydrochlorothiazide 12.5 mg tablet RxNorm: 066631 1 Tablet(s) PO daily 11/29/2017 12/28/2017 In active tramadol 50 mg tablet RxNorm: 135379 1 Tablet(s) PO Q4 PRN as needed for pain 11/23/2017 01/01/2018 In active tramadol 50 mg tablet RxNorm: 211052 1 Tablet(s) PO Q4 PRN as needed for pain 10/06/2017 11/14/2017 In active lorazepam 1 mg tablet RxNorm: 977011 Tablet(s) TAKE TWO TABLETS BY MOUTH AT B EDTIME NEEDED FOR INSOMNIA AND ONE TABLET DAILY NEEDED ANXIETY 09/12/2017 06/27/2018 Inactive tramadol 50 mg tablet RxNorm: 425924 1 Tablet(s) PO Q4 PRN as needed for pain 09/12/2017 10/05/2017 In active tramadol 50 mg tablet RxNorm: 008352 1 Tablet(s) PO Q4 PRN as needed for pain 08/15/2017 09/11/2017 In active tramadol 50 mg tablet RxNorm: 380823 1 Tablet(s) PO Q4 PRN as needed for pain 06/29/2017 08/07/2017 In active ProAir HFA 90 mcg/ac tuation aerosol inhaler RxNorm: 8354847 INHALE 1 TO 2 PUFFS FOUR TIMES A DAY NEEDED FOR ASTHMA 06/14/2017 11/10/2017 Inactive prednisone 20 mg tablet RxNorm: 507846 1 Tablet(s) PO BID x 2 days, then 1 pill daily x 3 days, then 1/2 pill every other day x 3 doses. 06/14/2017 09/11/2017 Inactive Kenalog 40 mg/mL madhavi pension for injection RxNorm: 2974561 1 Milliliter(s) Inj 06/14/2017 06/14/2017 In active Zyrtec 10 mg tablet RxNorm: 5085507 1 Tablet(s) PO daily 06/14/2017 07/13/2017 Inactive tramadol 50 mg tablet RxNorm: 179741 1 Tablet(s) PO Q4 PRN as needed for pain 06/08/2017 06/27/2017 In active [SAVINGS FOR UNINSURED PATIENTS -- BIN:0 02593, PCN: ASPROD1, Group: [id number], ID# [id number], Process claim through [employer], for questions: . THIS IS NOT INSURANCE.] tramadol 50 mg tablet RxNorm: 158533 1 Tablet(s) PO Q4 PRN as needed for pain 05/16/2017 06/04/2017 In active [SAVINGS FOR UNINSURED PATIENTS -- BIN:0 77858, PCN: ASPROD1, Group: [id number], ID# [id number], Process claim through [employer], for questions: . THIS IS NOT INSURANCE.] lorazepam 1 mg tablet RxNorm: 794459 Tablet(s) TAKE TWO TABLETS BY MOUTH AT B EDTIME NEEDED FOR INSOMNIA AND ONE TABLET DAILY NEEDED ANXIETY 05/16/2017 08/13/2017 Inactive Lasix 20 mg tablet RxNorm: 1 Tablet(s) PO daily 05/10/2017 05/09/2017 Inactive Lasix 20 mg tablet RxNorm: 1 Tablet(s) PO daily 05/10/2017 05/12/2017 Inactive potassium chloride E R 10 mEq tablet,extended release RxNorm: 162746 1 Tablet(s) PO daily while on the lasix 05/10/2017 05/09/2017 Inactive potassium chloride E R 10 mEq tablet,extended release RxNorm: 436257 1 Tablet(s) PO daily while on the lasix 05/10/2017 05/12/2017 Inactive prednisone 20 mg tablet RxNorm: 885297 1 Tablet(s) PO BID x 2 days, then 1 pill daily x 3 days, then 1/2 pill every other day x 3 doses. 04/19/2017 06/13/2017 Inactive Zithromax Z-Linus 250 mg tablet RxNorm: 503863 1 Tablet(s) PO UD 04/13/2017 06/28/2017 Inactive prednisone 20 mg tablet RxNorm: 398631 1 Tablet(s) PO BID 04/13/2017 04/17/2017 Inactive levothyroxine 125 mc g tablet RxNorm: 641563 1 Tablet(s) PO daily 04/11/2017 10/07/2017 Inactive tramadol 50 mg tablet RxNorm: 450497 1 Tablet(s) PO Q4 PRN as needed for pain 03/27/2017 04/15/2017 In active [SAVINGS FOR UNINSURED PATIENTS -- BIN:0 41750, PCN: ASPROD1, Group: [id number], ID# [id number], Process claim through [employer], for questions: . THIS IS NOT INSURANCE.] Kenalog 40 mg/mL madhavi pension for injection RxNorm: 7569792 1 Milliliter(s) Inj 03/27/2017 03/27/2017 In active tramadol 50 mg tablet RxNorm: 069647 1 Tablet(s) PO Q4H as needed for pain 03/09/2017 03/26/2017 In active [SAVINGS FOR UNINSURED PATIENTS -- BIN:0 98810, PCN: ASPROD1, Group: [id number], ID# [id number], Process claim through [employer], for questions: . THIS IS NOT INSURANCE.] lisinopril 20 mg-hyd rochlorothiazide 25 mg tablet RxNorm: 925135 TAKE ONE TABLET BY MOUTH DAILY 01/29/2017 11/21/2017 Inactive lorazepam 1 mg tablet RxNorm: Tablet(s) TAKE TWO TABLETS BY MOUTH AT B EDTIME NEEDED FOR INSOMNIA AND ONE TABLET DAILY NEEDED ANXIETY 01/05/2017 04/04/2017 Inactive tramadol 50 mg tablet RxNorm: 794020 1 Tablet(s) PO Q4H as needed for pain 12/07/2016 01/13/2017 In active [SAVINGS FOR UNINSURED PATIENTS -- BIN:0 19847, PCN: ASPROD1, Group: [id number], ID# [id number], Process claim through [employer], for questions: . THIS IS NOT INSURANCE.] Kenalog 40 mg/mL madhavi pension for injection RxNorm: 3040320 Milliliter(s) Inj 12/07/2016 12/07/2016 In active nystatin 100,000 uni t/mL oral suspension RxNorm: 871670 4 Milliliter(s) PO QI D 12/07/2016 12/11/2016 In active Francia-D 12 Hour 60 mg-120 mg tablet,extended release RxNorm: 198733 1 Tablet(s) PO BID 12/07/2016 01/11/2017 Inactive lorazepam 1 mg tablet RxNorm: 647760 Tablet(s) TAKE TWO TABLETS BY MOUTH AT B EDTIME AND ONE TABLET DAILY NEEDED 12/07/2016 01/04/2017 Inactive (Response to an electronic controlled substance refill request - RxReferenceNumber: [id number]) albuterol sulfate 2. 5 mg/3 mL (0.083 %) solution for nebulization RxNorm: 523075 3 Milliliter(s) INH TID 11/29/2016 11/28/2016 Inactive prednisone 10 mg tablet RxNorm: 836500 Tablet(s) PO UD 11/29/2016 12/05/2016 Inactive 6,5,4,3,2,1 doxycycline hyclate 100 mg tablet RxNorm: 303919 1 Tablet(s) PO BID 11/29/2016 12/04/2016 Inactive albuterol sulfate 2. 5 mg/3 mL (0.083 %) solution for nebulization RxNorm: 205444 3 Milliliter(s) INH TID 11/29/2016 12/03/2016 Inactive Kenalog 40 mg/mL madhavi pension for injection RxNorm: 8018041 Milliliter(s) Inj 11/28/2016 11/28/2016 In active tramadol 50 mg tablet RxNorm: 666771 1 Tablet(s) PO Q4H as needed for pain 11/15/2016 12/06/2016 In active [SAVINGS FOR UNINSURED PATIENTS -- BIN:0 76062, PCN: ASPROD1, Group: [id number], ID# [id number], Process claim through [employer], for questions: . THIS IS NOT INSURANCE.] prednisone 20 mg tablet RxNorm: 780754 2 Tablet(s) PO daily 11/15/2016 11/19/2016 Inactive Advair Diskus 100 mc g-50 mcg/dose powder for inhalation RxNorm: 0734352 1 Puff(s) INH BID 11/15/2016 06/11/2017 Inactive ProAir HFA 90 mcg/ac tuation aerosol inhaler RxNorm: 269788 INHALE 1 TO 2 PUFFS F OUR TIMES A DAY NEEDED FOR ASTHMA 11/15/2016 04/13/2017 Inactive Zithromax Z-Linus 250 mg tablet RxNorm: 628617 1 Tablet(s) PO UD 11/15/2016 11/27/2016 Inactive Zyrtec 10 mg tablet RxNorm: 4550302 1 Tablet(s) PO daily 10/17/2016 11/15/2016 Inactive Keflex 500 mg capsule RxNorm: 918672 1 Capsule(s) PO TID 10/17/2016 10/23/2016 Inactive prednisone 10 mg tablet RxNorm: 720657 Tablet(s) PO UD 10/17/2016 11/28/2016 Inactive 6,5,4,3,2,1 tramadol 50 mg tablet RxNorm: 468879 1 Tablet(s) PO Q4H as needed for pain 09/28/2016 11/06/2016 In active [SAVINGS FOR UNINSURED PATIENTS -- BIN:0 11846, PCN: ASPROD1, Group: [id number], ID# [id number], Process claim through [employer], for questions: . THIS IS NOT INSURANCE.] ProAir HFA 90 mcg/ac tuation aerosol inhaler RxNorm: 804543 INHALE 1 TO 2 PUFFS F OUR TIMES A DAY NEEDED FOR ASTHMA 09/15/2016 11/14/2016 Inactive doxycycline hyclate 100 mg tablet RxNorm: 833813 1 Tablet(s) PO BID 09/15/2016 09/24/2016 Inactive doxycycline hyclate 100 mg tablet RxNorm: 112470 1 Tablet(s) PO BID 07/29/2016 08/07/2016 Inactive tramadol 50 mg tablet RxNorm: 909901 1 Tablet(s) PO Q4H as needed for pain 07/29/2016 09/06/2016 In active [SAVINGS FOR UNINSURED PATIENTS -- BIN:0 55620, PCN: ASPROD1, Group: [id number], ID# [id number], Process claim through [employer], for questions: . THIS IS NOT INSURANCE.] lorazepam 1 mg tablet RxNorm: 404231 Tablet(s) TAKE TWO TABLETS BY MOUTH AT B EDTIME AND ONE TABLET DAILY NEEDED 07/29/2016 10/26/2016 Inactive (Response to an electronic controlled substance refill request - RxReferenceNumber: [id number]) levothyroxine 125 mc g tablet RxNorm: 902683 1 Tablet(s) PO daily 06/29/2016 06/29/2016 Inactive levothyroxine 137 mc g tablet RxNorm: 546704 1 Tablet(s) PO daily 06/29/2016 12/25/2016 Inactive ketoconazole 2 % sha mpoo RxNorm: 811559 1 Application TOP BID 06/29/2016 07/03/2016 Inactive tramadol 50 mg tablet RxNorm: 692812 1 Tablet(s) PO Q4H as needed for pain 06/16/2016 07/25/2016 In active [SAVINGS FOR UNINSURED PATIENTS -- BIN:0 59162, PCN: ASPROD1, Group: [id number], ID# [id number], Process claim through [employer], for questions: . THIS IS NOT INSURANCE.] Bactroban 2 % topica l ointment RxNorm: 809054 APPLY TO AFFECTED ARE A(S) TWO TIMES A DAY 06/16/2016 04/16/2017 Inactive fluconazole 150 mg t ablet RxNorm: 758154 1 Tablet(s) PO daily 06/01/2016 06/05/2016 Inactive gentamicin 0.1 % top ical ointment RxNorm: 204836 1 Application TOP QID 05/12/2016 05/25/2016 In active metronidazole 500 mg tablet RxNorm: 824619 1 Tablet(s) PO TID 05/11/2016 05/24/2016 Inactive gentamicin 0.1 % top ical ointment RxNorm: 756211 1 Application TOP QID 05/11/2016 05/11/2016 In active doxycycline hyclate 100 mg tablet RxNorm: 464238 1 Tablet(s) PO BID 05/11/2016 05/24/2016 Inactive lorazepam 1 mg tablet RxNorm: 188265 Tablet(s) TAKE TWO TABLETS BY MOUTH AT B EDTIME AND ONE TABLET DAILY NEEDED 05/02/2016 07/28/2016 Inactive (Response to an electronic controlled substance refill request - RxReferenceNumber: [id number]) Diflucan 150 mg tablet RxNorm: 703310 1 Tablet(s) PO daily x5 days then 1 x we ekly x 4 weeks. 05/02/2016 04/10/2017 Inactive Diflucan 150 mg tablet RxNorm: 483171 1 Tablet(s) PO every other day 04/19/2016 04/28/2016 In active Diflucan 150 mg tablet RxNorm: 720078 1 Tablet(s) PO every other day 04/19/2016 04/18/2016 In active Diflucan 150 mg tablet RxNorm: 352400 1 Tablet(s) PO daily 04/05/2016 04/11/2016 Inactive mupirocin 2 % topica l ointment RxNorm: 876241 1 Application TOP BID 04/05/2016 05/04/2016 Inactive tramadol 50 mg tablet RxNorm: 188384 1 Tablet(s) PO Q4H as needed for pain 04/05/2016 05/14/2016 In active [SAVINGS FOR UNINSURED PATIENTS -- BIN:0 44855, PCN: ASPROD1, Group: AME08, ID# [id number], Process claim through [employer], for questions: . THIS IS NOT INSURANCE.] prednisone 10 mg tablet RxNorm: 117603 Tablet(s) PO UD 04/01/2016 09/26/2016 Inactive 6,5,4,3,2,1 levothyroxine 137 mc g tablet RxNorm: 138422 1 Tablet(s) PO daily 03/21/2016 03/20/2016 Inactive levothyroxine 137 mc g tablet RxNorm: 700365 1 Tablet(s) PO daily 03/21/2016 06/28/2016 Inactive Advair Diskus 100 mc g-50 mcg/dose powder for inhalation RxNorm: 6872195 1 Puff(s) INH BID 01/26/2016 05/24/2016 Inactive tramadol 50 mg tablet RxNorm: 383834 1 Tablet(s) PO Q4H as needed for pain 01/26/2016 03/05/2016 In active [SAVINGS FOR UNINSURED PATIENTS -- BIN:0 36617, PCN: ASPROD1, Group: AME08, ID# [id number], Process claim through [employer], for questions: . THIS IS NOT INSURANCE.] Bactroban 2 % topica l ointment RxNorm: 526267 APPLY TO AFFECTED ARE A(S) TWO TIMES A DAY 12/22/2015 12/31/2015 Inactive Bactrim DS 800 mg-16 0 mg tablet RxNorm: 608434 TAKE ONE TABLET BY [facility] TWICE A DAY 12/22/2015 04/18/2016 In active Bactrim DS 800 mg-16 0 mg tablet RxNorm: 534284 1 Tablet(s) PO BID 12/21/2015 01/21/2019 Inactive lisinopril 20 mg-hyd rochlorothiazide 25 mg tablet RxNorm: 453212 1 Tablet(s) PO daily 12/21/2015 06/17/2016 Inactive [SAVINGS FOR UNINSURED PATIENTS -- BIN:0 23629, PCN: ASPROD1, Group: AME08, ID# [id number], Process claim through [employer], for questions: . THIS IS NOT INSURANCE.] tramadol 50 mg tablet RxNorm: 448417 1 Tablet(s) PO Q4H as needed for pain 12/03/2015 01/11/2016 In active [SAVINGS FOR UNINSURED PATIENTS -- BIN:0 06021, PCN: ASPROD1, Group: [id number], ID# [id number], Process claim through [email or web address], for questions: . THIS IS NOT INSURANCE.] lorazepam 1 mg tablet RxNorm: 313323 Tablet(s) TAKE TWO TABLETS BY MOUTH AT B EDTIME AND ONE TABLET DAILY NEEDED 11/26/2015 06/27/2018 Inactive (Response to an electronic controlled substance refill request - RxReferenceNumber: [id number]) Bactrim DS 800 mg-16 0 mg tablet RxNorm: 549533 1 Tablet(s) PO BID 11/25/2015 12/04/2015 Inactive levothyroxine 150 mc g tablet RxNorm: 934948 1 Tablet(s) PO daily 11/25/2015 03/20/2016 Inactive Bactroban 2 % topica l ointment RxNorm: 643503 1 Application TOP BID 10/12/2015 10/21/2015 Inactive Bactrim DS 800 mg-16 0 mg tablet RxNorm: 530366 1 Tablet(s) PO BID 09/07/2015 09/06/2015 Inactive Bactrim DS 800 mg-16 0 mg tablet RxNorm: 338084 1 Tablet(s) PO BID 09/07/2015 09/16/2015 Inactive lorazepam 1 mg tablet RxNorm: 055029 Tablet(s) TAKE TWO TABLETS BY MOUTH AT B EDTIME AND ONE TABLET DAILY NEEDED 08/28/2015 11/24/2015 Inactive (Response to an electronic controlled substance refill request - RxReferenceNumber: [id number]) levothyroxine 175 mc g tablet RxNorm: 672535 1 Tablet(s) PO daily 08/24/2015 11/24/2015 Inactive tramadol 50 mg tablet RxNorm: 821823 1 Tablet(s) PO Q4H as needed for pain 08/24/2015 09/11/2017 In active [SAVINGS FOR UNINSURED PATIENTS -- BIN:0 62108, PCN: ASPROD1, Group: [id number], ID# [id number], Process claim through [employer], for questions: . THIS IS NOT INSURANCE.] lisinopril 20 mg-hyd rochlorothiazide 25 mg tablet RxNorm: 033785 1 Tablet(s) PO daily TAKE 1 TABLET BY MOUTH DAILY 08/24/2015 06/27/2018 Inactive ProAir HFA 90 mcg/ac tuation aerosol inhaler RxNorm: 478017 1-2 Puff(s) INH PRN I NHALE ONE TO TWO PUFFS BY MOUTH FOUR TIMES A DAY NEEDED FOR ASTHMA 08/24/2015 12/01/2015 In active ProAir HFA 90 mcg/ac tuation aerosol inhaler RxNorm: 0534899 INHALE ONE TO TWO PU FFS BY MOUTH FOUR TIMES A DAY NEEDED FOR ASTHMA 08/17/2015 08/23/2015 Inactive Advair Diskus 250 mc g-50 mcg/dose powder for inhalation RxNorm: 4339984 1 Puff(s) INH BID 07/20/2015 07/19/2015 Inactive Advair Diskus 250 mc g-50 mcg/dose powder for inhalation RxNorm: 2853268 1 Puff(s) INH BID 07/20/2015 11/16/2015 Inactive tramadol 50 mg tablet RxNorm: 151355 1 Tablet(s) PO Q4H as needed for pain 07/10/2015 08/17/2015 In active [SAVINGS FOR UNINSURED PATIENTS -- BIN:0 66039, PCN: ASPROD1, Group: [id number], ID# [id number], Process claim through [employer], for questions: . THIS IS NOT INSURANCE.] Zithromax Z-Linus 250 mg tablet RxNorm: 718175 1 Tablet(s) PO UD 07/10/2015 01/18/2016 Inactive Keflex 500 mg capsule RxNorm: 431642 1 Capsule(s) PO TID 06/01/2015 06/07/2015 Inactive mupirocin 2 % topica l ointment RxNorm: 020361 1 Application TOP TID 06/01/2015 06/10/2015 Inactive lisinopril 20 mg-hyd rochlorothiazide 25 mg tablet RxNorm: 441763 TAKE 1 TABLET BY MOUT H DAILY 05/30/2015 08/23/2015 Inactive lisinopril 20 mg-hyd rochlorothiazide 25 mg tablet RxNorm: 291054 1 Tablet(s) PO daily 05/29/2015 11/24/2015 Inactive [SAVINGS FOR UNINSURED PATIENTS -- BIN:0 14263, PCN: ASPROD1, Group: [id number], ID# [id number], Process claim through [employer], for questions: . THIS IS NOT INSURANCE.] lorazepam 1 mg tablet RxNorm: 545175 Tablet(s) TAKE TWO TABLETS BY MOUTH AT B EDTIME AND ONE TABLET DAILY NEEDED 04/17/2015 07/13/2015 Inactive (Response to an electronic controlled substance refill request - RxReferenceNumber: [id number]) levothyroxine 200 mc g tablet RxNorm: 379817 1 Tablet(s) PO daily 03/12/2015 08/23/2015 Inactive [SAVINGS FOR UNINSURED PATIENTS -- BIN:0 74087, PCN: ASPROD1, Group: [id number], ID# [id number], Process claim through [employer], for questions: . THIS IS NOT INSURANCE.] lisinopril 20 mg-hyd rochlorothiazide 25 mg tablet RxNorm: 394427 1 Tablet(s) PO daily 03/11/2015 05/28/2015 Inactive [SAVINGS FOR UNINSURED PATIENTS -- BIN:0 50625, PCN: ASPROD1, Group: [id number], ID# [id number], Process claim through [employer], for questions: . THIS IS NOT INSURANCE.] levothyroxine 175 mc g tablet RxNorm: 703664 1 Tablet(s) PO daily 03/09/2015 03/11/2015 Inactive recheck blood in 3 months- THIS IS CORRE CT DOSAGE levothyroxine 175 mc g tablet RxNorm: 583185 1 Tablet(s) PO daily 03/09/2015 03/08/2015 Inactive recheck blood in 3 months levothyroxine 150 mc g tablet RxNorm: 111761 1 Tablet(s) PO daily 03/09/2015 03/08/2015 Inactive recheck blood in 3 months lorazepam 1 mg tablet RxNorm: 816666 TAKE TWO TABLETS BY MOUTH AT BEDTIME AND ONE TABLET DAILY NEEDED 12/25/2014 01/22/2015 Inactive (Response to an electronic controlled substance refill request - RxReferenceNumber: [id number]) lorazepam 1 mg tablet RxNorm: 269417 Tablet(s) TAKE TWO TABLETS BY MOUTH EVER Y NIGHT AT BEDTIME AND TAKE ONE TABLET BY MOUTH DAILY NEEDED 12/23/2014 12/25/2014 Inactive (Response to an electronic controlled [place] ref[place] - RxReferenceNumber: [id number]) levothyroxine 150 mc g tablet RxNorm: 472150 1 Tablet(s) PO daily 12/12/2014 03/08/2015 Inactive recheck blood in 3 months Diflucan 150 mg tablet RxNorm: 642003 1 Tablet(s) PO every other day (start af ter finished with Cipro) 11/17/2014 08/23/2015 Inactive tramadol 50 mg tablet RxNorm: 542810 1 Tablet(s) PO Q4H as needed for pain 11/10/2014 12/17/2014 In active [SAVINGS FOR UNINSURED PATIENTS -- BIN:[id number], PCN: [id number], Group: [id number], ID# [id number], Process claim through [employer], for questions: . THIS IS NOT INSURANCE.] Cipro 500 mg tablet RxNorm: 275598 1 Tablet(s) PO BID 10/23/2014 10/29/2014 Inactive Flagyl 500 mg tablet RxNorm: 090118 1 Tablet(s) PO TID 10/23/2014 10/29/2014 Inactive Cipro 500 mg tablet RxNorm: 045630 1 Tablet(s) PO BID 10/23/2014 10/22/2014 Inactive Flagyl 500 mg tablet RxNorm: 212524 1 Tablet(s) PO TID 10/23/2014 10/22/2014 Inactive Diflucan 150 mg tablet RxNorm: 484928 1 Tablet(s) PO every other day (start af ter finished with Cipro) 10/23/2014 11/16/2014 Inactive lorazepam 1 mg tablet RxNorm: 472118 TAKE TWO TABLETS BY MOUTH EVERY NIGHT AT BEDTIME AND TAKE ONE TABLET BY MOUTH DAILY NEEDED 10/21/2014 10/21/2014 Inactive (Response to an electronic controlled north bstance refill request - RxReferenceNumber: [id number]) lorazepam 1 mg tablet RxNorm: 190596 TAKE TWO TABLETS BY MOUTH EVERY NIGHT AT BEDTIME AND TAKE ONE TABLET BY MOUTH DAILY NEEDED 10/21/2014 11/18/2014 Inactive (Response to an electronic controlled north bstance refill request - RxReferenceNumber: [id number]) lorazepam 1 mg tablet RxNorm: 662602 Tablet(s) TAKE TWO TABLETS BY MOUTH AT B EDTIME, ALSO TAKE ONE TABLET BY MOUTH DAILY NEEDED 10/13/2014 10/21/2014 Inactive (Res ponse to an electronic controlled substance refill request - RxReferenceNumber: [id number]) ProAir HFA 90 mcg/ac tuation aerosol inhaler RxNorm: 0392872 1-2 inhale INH QID a s needed ASTHMA 10/13/2014 12/26/2014 Inactive ProAir HFA 90 mcg/ac tuation aerosol inhaler RxNorm: 9342993 1-2 inhale INH QID a s needed ASTHMA 09/18/2014 10/12/2014 Inactive meloxicam 7.5 mg tablet RxNorm: 478805 1 Tablet(s) PO daily 09/18/2014 03/10/2015 Inactive [SAVINGS FOR UNINSURED PATIENTS -- BIN:0 30668, PCN: ASPROD1, Group: [id number], ID# [id number], Process claim through [employer], for questions: . THIS IS NOT INSURANCE.] sulfamethoxazole 800 mg-trimethoprim 160 mg tablet RxNorm: 228043 1 Tablet(s) PO BID 09/18/2014 10/07/2014 Inactive levothyroxine 175 mc g tablet RxNorm: 110139 1 Tablet(s) PO daily 09/17/2014 12/11/2014 Inactive levothyroxine 175 mc g tablet RxNorm: 402286 1 Tablet(s) PO daily 09/17/2014 09/16/2014 Inactive lorazepam 1 mg tablet RxNorm: 007538 Tablet(s) TAKE TWO TABLETS BY MOUTH AT B EDTIME, ALSO TAKE ONE TABLET BY MOUTH DAILY NEEDED 09/12/2014 10/11/2014 Inactive (Res ponse to an electronic controlled substance refill request - RxReferenceNumber: [id number]) lorazepam 1 mg tablet RxNorm: 753275 TAKE TWO TABLETS BY MOUTH AT BEDTIME, AL SO TAKE ONE TABLET BY MOUTH DAILY NEEDED 09/08/2014 09/11/2014 Inactive (Res ponse to an electronic controlled substance refill request - RxReferenceNumber: [id number]) meloxicam 7.5 mg tablet RxNorm: 016295 1 Tablet(s) PO daily 09/01/2014 09/17/2014 Inactive [SAVINGS FOR UNINSURED PATIENTS -- BIN:0 44712, PCN: ASPROD1, Group: [id number], ID# [id number], Process claim through [employer], for questions: . THIS IS NOT INSURANCE.] lisinopril 20 mg-hyd rochlorothiazide 25 mg tablet RxNorm: 645526 1 Tablet(s) PO daily 09/01/2014 12/29/2014 Inactive [SAVINGS FOR UNINSURED PATIENTS -- BIN:0 32573, PCN: ASPROD1, Group: [id number], ID# [id number], Process claim through [employer], for questions: . THIS IS NOT INSURANCE.] tramadol 50 mg tablet RxNorm: 486523 1 Tablet(s) PO Q4H as needed for pain 08/20/2014 11/07/2014 In active [SAVINGS FOR UNINSURED PATIENTS -- BIN:0 91672, PCN: ASPROD1, Group: [id number], ID# [id number], Process claim through [employer], for questions: . THIS IS NOT INSURANCE.] meloxicam 7.5 mg tablet RxNorm: 856384 1 Tablet(s) PO daily 08/14/2014 08/31/2014 Inactive [SAVINGS FOR UNINSURED PATIENTS -- BIN:0 43274, PCN: ASPROD1, Group: [id number], ID# [id number], Process claim through [employer], for questions: . THIS IS NOT INSURANCE.] lorazepam 1 mg tablet RxNorm: 142890 2 Tablet(s) PO QHS and 1 tab qd PRN 08/01/2014 09/08/2014 In active [SAVINGS FOR UNINSURED PATIENTS -- BIN:0 13111, PCN: ASPROD1, Group: [id number], ID# [id number], Process claim through [employer], for questions: . THIS IS NOT INSURANCE.] levothyroxine 200 mc g tablet RxNorm: 985723 1 Tablet(s) PO daily 07/31/2014 09/16/2014 Inactive [SAVINGS FOR UNINSURED PATIENTS -- BIN:0 27754, PCN: ASPROD1, Group: [id number], ID# [id number], Process claim through [email or web address], for questions: . THIS IS NOT INSURANCE.] lorazepam 1 mg tablet RxNorm: 600107 2 Tablet(s) PO QHS and 1 tab qd PRN No Start Date 07/31/2014 Inactive Phenergan VC-Codeine oral RxNorm: 868640 oral No S tart Date 11/26/2017 Inactive meloxicam 7.5 mg tablet RxNorm: 055132 1 Tablet(s) PO daily No Start Date 08/13/2014 Inactive lisinopril 20 mg-hyd rochlorothiazide 25 mg tablet RxNorm: 553980 1 Tablet(s) PO daily No Start Date 08/31/2014 Inactive levothyroxine 200 mc g tablet RxNorm: 387020 1 Tablet(s) PO daily No Start Date 07/30/2014 Inactive Diflucan 150 mg tablet RxNorm: 216168 1 Tablet(s) PO every other day No Start Date 10/22/2014 Inactive Zithromax Z-Linus 250 mg tablet RxNorm: 110938 1 Tablet(s) PO UD No Start Date 07/09/2015 Inactive tramadol 50 mg tablet RxNorm: 863815 1 Tablet(s) PO Q6 as needed No Start Date 08/19/2014 Inactive Medication Administered Medication Codes Instruc tions Start Date Status Kenalog 40 mg/mL suspension for injection RxNorm: 8395669 1Milliliter 06/14/2017 N o longer Active Kenalog 40 mg/mL suspension for injection RxNorm: 7416075 1Milliliter 03/27/2017 N o longer Active Kenalog 40 mg/mL suspension for injection RxNorm: 4546583 Milliliter 12/07/2016 No longer Active Kenalog 40 mg/mL suspension for injection RxNorm: 6052645 Milliliter 11/28/2016 No longer Active Immunizations Vaccine Codes Date Status Pneumococcal CVX: 33 09/1986 completed Tetanus, Diptheria, Pertussis CVX: 113 03/11/1987 completed Tetanus/Diptheria CVX: 113 03/11/1987 completed Influenza CVX: 141 03/11 completed [...] capitis ICD-1 0: B35.0 ICD-9: 110.0 06/29/2016 Rash and other nonspecific skin eruption ICD-10: R21 ICD-9: 782.1 06/01/2016 Cellulitis of groin ICD-10: L03.314 ICD-9: 682.2 [...] Visit Reason For Visit Effective Dates Notes mole check 03/21/2019 hypertension 01/22/2019 hypertension 10/30/2018 [...] 29.7 pg 03/21/2019 Cbc With Differential Ord2 [place]% 10.5 % 03/21/2019 Cbc With Differential Ord2 [...] 1.51 K/ul 03/21/2019 Cbc With Differential Ord2 [place] ABS# 0.6 K/ul 03/21/2019 Cbc With Differential Ord2 Eos ABS# 0.2 K/ul 03/21/2019 Cbc With Differential Ord2 Baso ABS# 0.0 K/ul 03/21/2019 Free T4 Vki789 FREE T4 1.52 ng/dL 03/21/2019 Comp Metabolic Ajq235 NA 141 mEq/L 03/21/2019 Comp Metabolic Utv648 K 3.9 mEq/L 03/21/2019 Comp Metabolic Pca987 CL 107 mEq/L 03/21/2019 Comp Metabolic Med672 CO2 26.0 mEq/L 03/21/2019 Comp Metabolic Tlh884 AN ION GAP 12 03/21/2019 Comp Metabolic Qwk658 GL UCOSE 111 mg/dL 03/21/2019 Comp Metabolic Yak136 Cr eat 0.8 mg/dL 03/21/2019 Comp Metabolic Ydi582 eG FR 77 ml/min/1.73m2 03/21 Comp Metabolic Rok649 BUN 14 mg/dL 03/21/2019 Comp Metabolic Lvs519 B/ C Ratio 18.2 Ratio 03/21/2019 Comp Metabolic Asv072 CA LCIUM 9.2 mg/dL 03/21/2019 Comp Metabolic Htn939 AL K PHOS 68 U/L 03/21/2019 Comp Metabolic Qat652 T(SGOT) 11 U/L 03/21/2019 Comp Metabolic Ssx739 AL T(SGPT) 8 U/L 03/21/2019 Comp Metabolic Iba328 BI LI T 0.5 mg/dL 03/21/2019 Comp Metabolic Zaw799 AL BUMIN 4.1 g/dL 03/21/2019 Comp Metabolic Ouw852 TP RO 6.3 g/dL 03/21/2019 Comp Metabolic Ext983 GL OB 2.2 g/dL 03/21/2019 Comp Metabolic Itv915 A/ G Ratio 1.9 Ratio 03/21/2019 Comp Metabolic Iya862 Os mo 282 mOsmo 03/21/2019 Tsh Ord6 TSH (3rd IS) 1.49 uIU/mL 01/21/2019 Free T4 Evw651 FREE T4 1.15 ng/dL 01/21/2019 Lipid Ord30 CHOL 231 mg/dL 10/24/2018 Lipid Ord30 HDL 56.0 mg/dl 10/24/2018 Lipid Ord30 TRIG 71 mg/dL 10/24/2018 Lipid Ord30 LDL 161 mg/dL 10/24/2018 Lipid Ord30 C/HDL 4.1 Ratio 10/24/2018 Comp Metabolic Evc717 NA 141 mEq/L 10/24/2018 Comp Metabolic Jhn823 K 3.7 mEq/L 10/24/2018 Comp Metabolic Bop823 CL 103 mEq/L 10/24/2018 Comp Metabolic Air474 CO2 30.0 mEq/L 10/24/2018 Comp Metabolic Ebo906 AN ION GAP 12 10/24/2018 Comp Metabolic Qty559 GL UCOSE 98 mg/dL 10/24/2018 Comp Metabolic Mbq011 Cr eat 0.8 mg/dL 10/24/2018 Comp Metabolic Nfw333 eG FR 71 ml/min/1.73m2 10/24 Comp Metabolic Zmz738 BUN 12 mg/dL 10/24/2018 Comp Metabolic Fzt171 B/ C Ratio 14.5 Ratio 10/24/2018 Comp Metabolic Kkk075 CA LCIUM 9.2 mg/dL 10/24/2018 Comp Metabolic Kxb770 AL K PHOS 76 U/L 10/24/2018 Comp Metabolic Pbe230 T(SGOT) 12 U/L 10/24/2018 Comp Metabolic Sxo455 AL T(SGPT) 9 U/L 10/24/2018 Comp Metabolic Abz289 BI LI T 0.5 mg/dL 10/24/2018 Comp Metabolic Quo691 AL BUMIN 4.3 g/dL 10/24/2018 Comp Metabolic Guh984 TP RO 6.5 g/dL 10/24/2018 Comp Metabolic Gqg787 GL OB 2.2 g/dL 10/24/2018 Comp Metabolic Gxq767 A/ G Ratio 2.0 Ratio 10/24/2018 Comp Metabolic Pie866 Os mo 281 mOsmo 10/24/2018 Free T4 Fgj043 FREE T4 0.76 ng/dL 10/24/2018 Cbc With [...] 30.5 pg 10/24/2018 Cbc With Differential Ord2 [place]% 8.4 % 10/24/2018 Cbc With Differential Ord2 [...] 1.71 K/ul 10/24/2018 Cbc With Differential Ord2 [place] ABS# 0.4 K/ul 10/24/2018 Cbc With Differential [...] 30.0 pg 04/04/2018 Cbc With Differential Ord2 [place]% 10.9 % 04/04/2018 Cbc With Differential Ord2 [...] 1.42 K/ul 04/04/2018 Cbc With Differential Ord2 [place] ABS# 0.6 K/ul 04/04/2018 Cbc With Differential Ord2 Eos ABS# 0.1 K/ul 04/04/2018 Cbc With Differential Ord2 Baso ABS# 0.0 K/ul 04/04/2018 Free T4 Wxu997 FREE T4 1.25 ng/dL 04/04/2018 Tsh Ord6 [...] 30.2 pg 11/28/2017 Cbc With Differential Ord2 [place]% 10.1 % 11/28/2017 Cbc With Differential Ord2 [...] 1.33 K/ul 11/28/2017 Cbc With Differential Ord2 [place] ABS# 0.5 K/ul 11/28/2017 Cbc With Differential Ord2 Eos ABS# 0.1 K/ul 11/28/2017 Cbc With Differential Ord2 Baso ABS# 0.0 K/ul 11/28/2017 Free T4 Qoe729 FREE T4 1.43 ng/dL 11/28/2017 Lipid Ord30 CHOL 186 mg/dL 11/28/2017 Lipid Ord30 HDL 54.0 mg/dl 11/28/2017 Lipid Ord30 TRIG 59 mg/dL 11/28/2017 Lipid Ord30 LDL 120 mg/dL 11/28/2017 Lipid Ord30 C/HDL 3.4 Ratio 11/28/2017 Comp Metabolic Wth448 NA 141 mEq/L 11/28/2017 Comp Metabolic Hne660 K 4.0 mEq/L 11/28/2017 Comp Metabolic Pdb681 CL 105 mEq/L 11/28/2017 Comp Metabolic Pzo537 CO2 29.0 mEq/L 11/28/2017 Comp Metabolic Rsr886 AN ION GAP 11 11/28/2017 Comp Metabolic Bde183 GL UCOSE 91 mg/dL 11/28/2017 Comp Metabolic Djd361 Cr eat 0.8 mg/dL 11/28/2017 Comp Metabolic Aic383 eG FR 74 ml/min/1.73m2 11/28 Comp Metabolic Gly318 BUN 15 mg/dL 11/28/2017 Comp Metabolic Jvi810 B/ C Ratio 18.8 Ratio 11/28/2017 Comp Metabolic Itf615 CA LCIUM 8.6 mg/dL 11/28/2017 Comp Metabolic Hse770 AL K PHOS 76 U/L 11/28/2017 Comp Metabolic Sna902 T(SGOT) 10 U/L 11/28/2017 Comp Metabolic Klg421 AL T(SGPT) 8 U/L 11/28/2017 Comp Metabolic Vcg462 BI LI T 0.5 mg/dL 11/28/2017 Comp Metabolic Pas805 AL BUMIN 4.0 g/dL 11/28/2017 Comp Metabolic Nlb407 TP RO 6.1 g/dL 11/28/2017 Comp Metabolic Ubv059 GL OB 2.1 g/dL 11/28/2017 Comp Metabolic Bfe872 A/ G Ratio 1.9 Ratio 11/28/2017 Comp Metabolic Cwn730 Os mo 282 mOsmo 11/28/2017 Tsh Ord6 TSH (3rd IS) 3.31 uIU/mL 11/28/2017 Tsh Ord6 hTSH II 1.45 uIU/mL 03/27/2017 Free T4 Gxk569 FREE T4 1.23 ng/dL 03/27/2017 Comp Metabolic Pfo819 NA 140 mEq/L 09/28/2016 Comp Metabolic Xow515 K 3.9 mEq/L 09/28/2016 Comp Metabolic Dkj677 CL 104 mEq/L 09/28/2016 Comp Metabolic Bxf903 CO2 28.0 mEq/L 09/28/2016 Comp Metabolic Zmu683 AN ION GAP 12 09/28/2016 Comp Metabolic Xxt677 GL UCOSE 97 mg/dL 09/28/2016 Comp Metabolic Xhy560 Cr eat 0.8 mg/dL 09/28/2016 Comp Metabolic Kwu052 eG FR 79 ml/min/1.73m2 09/28 Comp Metabolic Mme695 BUN 13 mg/dL 09/28/2016 Comp Metabolic Qes458 B/ C Ratio 17.1 Ratio 09/28/2016 Comp Metabolic Dgh529 CA LCIUM 8.9 mg/dL 09/28/2016 Comp Metabolic Bcz469 AL K PHOS 100 U/L 09/28/2016 Comp Metabolic Rgg465 T(SGOT) 12 U/L 09/28/2016 Comp Metabolic Edv450 AL T(SGPT) 9 U/L 09/28/2016 Comp Metabolic Wof940 BI LI T 0.4 mg/dL 09/28/2016 Comp Metabolic Jay585 AL BUMIN 4.1 g/dL 09/28/2016 Comp Metabolic Qvl533 TP RO 6.6 g/dL 09/28/2016 Comp Metabolic Fkz900 GL OB 2.5 g/dL 09/28/2016 Comp Metabolic Sia253 A/ G Ratio 1.6 Ratio 09/28/2016 Comp Metabolic Qnc038 Os mo 279 mOsmo 09/28/2016 Lipid Ord30 [...] 28.8 pg 09/28/2016 Cbc With Differential Ord2 [place]% 7.2 % 09/28/2016 Cbc With Differential Ord2 [...] 1.41 K/ul 09/28/2016 Cbc With Differential Ord2 [place] ABS# 0.5 K/ul 09/28/2016 Cbc With Differential Ord2 Eos ABS# 0.2 K/ul 09/28/2016 Cbc With Differential Ord2 Baso ABS# 0.0 K/ul 09/28/2016 Free T4 Wxy407 FREE T4 1.43 ng/dL 09/28/2016 Tsh Ord6 hTSH II 0.52 uIU/mL 09/28/2016 Tsh Ord6 hTSH II 0.47 uIU/mL 06/16/2016 Comp Metabolic Jek488 NA 139 mEq/L 06/16/2016 Comp Metabolic Nqc422 K 4.3 mEq/L 06/16/2016 Comp Metabolic Sns011 CL 105 mEq/L 06/16/2016 Comp Metabolic Sez777 CO2 30.0 mEq/L 06/16/2016 Comp Metabolic Oph833 AN ION GAP 8 06/16/2016 Comp Metabolic Ofj952 GL UCOSE 90 mg/dL 06/16/2016 Comp Metabolic Arg986 Cr eat 0.7 mg/dL 06/16/2016 Comp Metabolic Axj209 eG FR 91 ml/min/1.73m2 06/16 Comp Metabolic Hrr176 BUN 15 mg/dL 06/16/2016 Comp Metabolic Aif017 B/ C Ratio 22.4 Ratio 06/16/2016 Comp Metabolic Aqj661 CA LCIUM 8.8 mg/dL 06/16/2016 Comp Metabolic Oyy365 AL K PHOS 79 U/L 06/16/2016 Comp Metabolic Est227 T(SGOT) 13 U/L 06/16/2016 Comp Metabolic Ded715 AL T(SGPT) 11 U/L 06/16/2016 Comp Metabolic Tye457 BI LI T 0.5 mg/dL 06/16/2016 Comp Metabolic Jwk720 AL BUMIN 3.9 g/dL 06/16/2016 Comp Metabolic Uii441 TP RO 6.1 g/dL 06/16/2016 Comp Metabolic Eta854 GL OB 2.2 g/dL 06/16/2016 Comp Metabolic Whz025 A/ G Ratio 1.8 Ratio 06/16/2016 Comp Metabolic Mwd358 Os mo 278 mOsmo 06/16/2016 Lipid Ord30 [...] 28.9 pg 06/16/2016 Cbc With Differential Ord2 [place]% 8.1 % 06/16/2016 Cbc With Differential Ord2 [...] 1.70 K/ul 06/16/2016 Cbc With Differential Ord2 [place] ABS# 0.4 K/ul 06/16/2016 Cbc With Differential Ord2 Eos ABS# 0.2 K/ul 06/16/2016 Cbc With Differential Ord2 Baso ABS# 0.0 K/ul 06/16/2016 Free T4 Tod938 FREE T4 1.42 ng/dL 06/16/2016 Free T4 Sri205 FREE T4 1.34 ng/dL 03/04/2016 Tsh Ord6 hTSH II 0.56 uIU/mL 03/04/2016 Tsh Ord6 hTSH II 0.98 uIU/mL 01/27/2016 Free T4 Ton477 FREE T4 1.19 ng/dL 01/27/2016 Free T4 Amm857 FREE T4 1.69 ng/dL 11/23/2015 Tsh Ord6 hTSH II 0.08 uIU/mL 11/23/2015 Lipid Ord30 CHOL 185 mg/dL 08/21/2015 Lipid Ord30 HDL 50.0 mg/dl 08/21/2015 Lipid Ord30 TRIG 88 mg/dL 08/21/2015 Lipid Ord30 LDL 117 mg/dL 08/21/2015 Lipid Ord30 C/HDL 3.7 Ratio 08/21/2015 Comp Metabolic Wus082 NA 139 mEq/L 08/21/2015 Comp Metabolic Ecx952 K 4.3 mEq/L 08/21/2015 Comp Metabolic Vtj706 CL 102 mEq/L 08/21/2015 Comp Metabolic Uai474 CO2 27.0 mEq/L 08/21/2015 Comp Metabolic Ugh723 AN ION GAP 14 08/21/2015 Comp Metabolic Mum222 GL UCOSE 89 mg/dL 08/21/2015 Comp Metabolic Dxn486 Cr eat 0.7 mg/dL 08/21/2015 Comp Metabolic Yyh350 eG FR 85 ml/min/1.73m2 08/21 Comp Metabolic Oik242 BUN 14 mg/dL 08/21/2015 Comp Metabolic Kmr442 B/ C Ratio 19.7 Ratio 08/21/2015 Comp Metabolic Cum394 CA LCIUM 9.5 mg/dL 08/21/2015 Comp Metabolic Wtg927 AL K PHOS 123 U/L 08/21/2015 Comp Metabolic Wlv215 T(SGOT) 13 U/L 08/21/2015 Comp Metabolic Ugm553 AL T(SGPT) 10 U/L 08/21/2015 Comp Metabolic Yps281 BI LI T 0.4 mg/dL 08/21/2015 Comp Metabolic Ahr603 AL BUMIN 4.1 g/dL 08/21/2015 Comp Metabolic Uxk754 TP RO 6.8 g/dL 08/21/2015 Comp Metabolic Xxn532 GL OB 2.7 g/dL 08/21/2015 Comp Metabolic Fuz424 A/ G Ratio 1.5 Ratio 08/21/2015 Comp Metabolic Vac575 Os mo 277 mOsmo 08/21/2015 Free T4 Zxa642 FREE T4 1.78 ng/dL 08/21/2015 Tsh Ord6 [...] Ord2 RDW 13.9 % 08/21/2015 Quick Strep Cjg8206 Quic k Strep Negative 07/08/2015 Tsh Ord6 hTSH II 0.04 uIU/mL 05/20/2015 Free T4 Wtf516 FREE T4 1.50 ng/dL 05/20/2015 Review of Systems System Result Effective Dates Constitutional No recent illness 03/21/2019 Constitutional No [...] None Full Exam - General 1995 Ears/Nose/Throat lips/teeth/gingiva Overall: benign lips 09/12/2017 None [...] clear 12/11/2014 None Full Exam - General 1995 Ears/Nose/Throat otoscopic exam Overall: tympanic membranes clear [...] Procedure Codes Date DESTRUCT PREMALG LESION CPT-4: 78163 01/19/2018 URINALYSIS NONAUTO W /O SCOPE CPT-4: 78358 09/12/2017 TRIAMCINOLONE ACET I [place] NOS CPT-4: J3301 06/14/2017 THER/PROPH/DIAG INJ SC/IM CPT-4: 03247 06/14/2017 PRESCRIP TRANSMIT A ERX SY CPT-4: G8553 06/14/2017 TRIAMCINOLONE ACET I [place] NOS CPT-4: J3301 03/27/2017 THER/PROPH/DIAG INJ SC/IM CPT-4: 07009 12/07/2016 TRIAMCINOLONE ACET I [place] NOS CPT-4: J3301 12/07/2016 THER/PROPH/DIAG INJ SC/IM CPT-4: 30886 11/28/2016 TRIAMCINOLONE ACET I [place] NOS CPT-4: J3301 11/28/2016 Vital Signs Date Vital 03/21/2019 Blood Pressure 1: 132/64 Code: 8480-6 BMI: 36.2 Code: 93026-7 Heart Rate 1: 76 bpm Height: 5'6" SpO2: 94% Weight: 224 lbs 01/22/2019 Blood Pressure 1: 132/66 Code: 8480-6 BMI: 37.1 Code: 60613-6 Heart Rate 1: 73 bpm Height: 5'6" SpO2: 96% Weight: 230 lbs 11/21/2018 Blood Pressure 1: 120/64 Code: 8480-6 Heart Rate 1: 64 bpm 10/30/2018 Blood Pressure 1: 144/70 Code: 8480-6 BMI: 37.0 Code: 83312-6 Heart Rate 1: 76 bpm Height: 5'6" SpO2: 96% Weight: 229 lbs 06/28/2018 Blood Pressure 1: 110/66 Code: 8480-6 BMI: 37.1 Code: 23111-5 Heart Rate 1: 73 bpm Height: 5'6" SpO2: 98% Weight: 230 lbs 04/04/2018 Blood Pressure 1: 128/76 Code: 8480-6 BMI: 37.9 Code: 26933-7 Heart Rate 1: 86 bpm Height: 5'6" SpO2: 98% Weight: 235 lbs 01/19/2018 Blood Pressure 1: 122/68 Code: 8480-6 Heart Rate 1: 78 bpm Height: 5'6" SpO2: 97% Weight: 01/05/2018 Blood Pressure 1: 138/78 Code: 8480-6 BMI: 38.4 Code: 85658-2 Heart Rate 1: 73 bpm Height: 5'6" SpO2: 95% Weight: 238 lbs 11/29/2017 Blood Pressure 1: 138/80 Code: 8480-6 BMI: 38.7 Code: 14057-9 Heart Rate 1: 71 bpm Height: 5'6" SpO2: 97% Weight: 240 lbs 10/25/2017 Blood Pressure 1: 136/72 Code: 8480-6 BMI: 38.7 Code: 17089-1 Heart Rate 1: 92 bpm Height: 5'6" SpO2: 98% Weight: 240 lbs 09/12/2017 Blood Pressure 1: 132/68 Code: 8480-6 BMI: 39.7 Code: 04960-6 Heart Rate 1: 76 bpm Height: 5'6" SpO2: 98% Weight: 246 lbs 06/14/2017 Blood Pressure 1: 130/80 Code: 8480-6 BMI: 39.4 Code: 89569-1 Heart Rate 1: 73 bpm Height: 5'6" SpO2: 95% Temperature: 36.9 (C ) / 98.5 (F) Weight: 244 lbs 05/10/2017 Blood Pressure 1: 128/68 Code: 8480-6 BMI: 38.7 Code: 72130-0 Heart Rate 1: 69 bpm Height: 5'6" SpO2: 97% Weight: 240 lbs 04/19/2017 Blood Pressure 1: 138/74 Code: 8480-6 BMI: 38.7 Code: 07650-1 Heart Rate 1: 73 bpm Height: 5'6" SpO2: 96% Weight: 240 lbs 03/27/2017 Blood Pressure 1: 142/84 Code: 8480-6 BMI: 38.7 Code: 82470-6 Heart Rate 1: 69 bpm Height: 5'6" SpO2: 97% Weight: 240 lbs 01/26/2017 Blood Pressure 1: 136/68 Code: 8480-6 Heart Rate 1: 64 bpm Height: 5'6" SpO2: 96% Weight: 12/07/2016 Blood Pressure 1: 130/72 Code: 8480-6 BMI: 39.7 Code: 59971-5 Heart Rate 1: 73 bpm Height: 5'6" SpO2: 93% Temperature: 36.8 (C ) / 98.3 (F) Weight: 246 lbs 11/28/2016 Blood Pressure 1: 138/60 Code: 8480-6 BMI: 39.7 Code: 08730-5 Heart Rate 1: 81 bpm Height: 5'6" SpO2: 97% Weight: 246 lbs 11/15/2016 Blood Pressure 1: 134/78 Code: 8480-6 BMI: 39.7 Code: 98427-9 Heart Rate 1: 75 bpm Height: 5'6" SpO2: 93% Temperature: 36.8 (C ) / 98.2 (F) Weight: 246 lbs 10/17/2016 Blood Pressure 1: 120/64 Code: 8480-6 BMI: 38.4 Code: 61969-6 Heart Rate 1: 69 bpm Height: 5'6" SpO2: 98% Temperature: 37.2 (C ) / 98.9 (F) Weight: 238 lbs 09/28/2016 Blood Pressure 1: 158/76 Code: 8480-6 BMI: 39.4 Code: 89460-4 Heart Rate 1: 71 bpm Height: 5'6" SpO2: 97% Weight: 244 lbs 06/29/2016 Blood Pressure 1: 124/60 Code: 8480-6 BMI: 38.7 Code: 76503-0 Heart Rate 1: 71 bpm Height: 5'6" SpO2: 98% Weight: 240 lbs 06/01/2016 Blood Pressure 1: 120/62 Code: 8480-6 BMI: 38.6 Code: 90937-6 Heart Rate 1: 76 bpm Height: 5'6" SpO2: 98% Weight: 239 lbs 05/11/2016 Blood Pressure 1: 140/80 Code: 8480-6 BMI: 38.1 Code: 16960-8 Heart Rate 1: 88 bpm Height: 5'6" SpO2: 97% Weight: 236 lbs 04/05/2016 Blood Pressure 1: 142/80 Code: 8480-6 BMI: 38.4 Code: 21089-3 Heart Rate 1: 96 bpm Height: 5'6" SpO2: 98% Weight: 238 lbs 04/01/2016 Blood Pressure 1: 136/88 Code: 8480-6 BMI: 39.2 Code: 79162-7 Heart Rate 1: 86 bpm Height: 5'6" SpO2: 96% Weight: 243 lbs 01/26/2016 Blood Pressure 1: 124/76 Code: 8480-6 BMI: 39.2 Code: 41232-7 Heart Rate 1: 76 bpm Height: 5'6" SpO2: 97% Weight: 243 lbs 12/21/2015 Blood Pressure 1: 120/64 Code: 8480-6 BMI: 37.0 Code: 81640-0 Heart Rate 1: 98 bpm Height: 5'6" SpO2: 97% Weight: 229 lbs 10/12/2015 Blood Pressure 1: 150/64 Code: 8480-6 BMI: 37.4 Code: 68448-9 Heart Rate 1: 70 bpm Height: 5'6" SpO2: 94% Weight: 232 lbs 08/24/2015 Blood Pressure 1: 128/74 Code: 8480-6 BMI: 36.8 Code: 90796-4 Heart Rate 1: 88 bpm Height: 5'6" SpO2: 94% Temperature: 36.8 (C ) / 98.3 (F) Weight: 228 lbs 06/01/2015 Blood Pressure 1: 134/68 Code: 8480-6 BMI: 36.0 Code: 43751-3 Heart Rate 1: 70 bpm Height: 5'6" SpO2: 98% Weight: 223 lbs 05/21/2015 Blood Pressure 1: 126/72 Code: 8480-6 BMI: 35.2 Code: 88197-8 Heart Rate 1: 63 bpm Height: 5'6" SpO2: 95% Weight: 218 lbs 5 oz 03/26/2015 Blood Pressure 1: 140/62 Code: 8480-6 BMI: 35.3 Code: 04325-0 Heart Rate 1: 68 bpm Height: 5'6" Weight: 219 lbs 03/11/2015 Blood Pressure 1: 130/80 Code: 8480-6 BMI: 34.9 Code: 34944-6 Heart Rate 1: 76 bpm Height: 5'6" Temperature: 37.1 (C ) / 98.7 (F) Weight: 216 lbs 12/11/2014 Blood Pressure 1: 134/62 Code: 8480-6 BMI: 34.2 Code: 38848-6 Heart Rate 1: 72 bpm Height: 5'6" Weight: 212 lbs 09/18/2014 Blood Pressure 1: 148/80 Code: 8480-6 BMI: 34.7 Code: 66311-8 Heart Rate 1: 68 bpm Height: 5'6" Weight: 215 lbs 07/31/2014 Blood Pressure 1: 124/72 Code: 8480-6 BMI: 36.2 Code: 33928-3 Heart Rate 1: 68 bpm Height: 5'6" Weight: 224 lbs Functional Status No Functional Status data History of Present Illness Symptom Name Status Resu lt Effective Date Notes Location-Major on the back 03/21/2019 None Color [...] pressure at home 10/30/2018 None Pertinent Findings dibinh ziness 10/30/2018 None Severity not consisten tly [...] Severity mi ld 09/28/2016 None 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 P ATIENT, LEVEL IV Diagnosis: Hypothyroidism, unspecified[ICD10: E03.9] Diagnosis: Changes in skin texture[ICD10: R23.4] Diagnosis: Mild intermittent asthma, uncomplicated[ICD10: J45.20] Lynn Finn MD, [facility] CPT-4: 76610 03/21/2019 ([id number]) 77524 EST. P ATIENT, LEVEL IV Diagnosis: Mild intermittent asthma, uncomplicated[ICD10: J45.20] Diagnosis: Hypothyroidism, unspecified[ICD10: E03.9] Diagnosis: Low back pain[ICD10: M54.5] Lynn Finn MD, [facility] CPT- 4: 66577 01/22/2019 ([id number]) Edgar watkins no charge Diagnosis: Essential (primary) hypertension[ICD10: I10] Damari Finn MD, [facility] CPT-4: 38741 11/21/2018 ([id number]) 04516 EST. P ATIENT, LEVEL IV Diagnosis: Essential (primary) hypertension[ICD10: I10] Diagnosis: Hypothyroidism, unspecified[ICD10: E03.9] Diagnosis: Low back pain[ICD10: M54.5] Lynn Finn MD, [facility] CPT- 4: 65494 10/30/2018 ([id number]) 63220 EST. [facility] Diagnosis: Acute recurrent maxillary sinusitis[ICD10: J01.01] Diagnosis: Other mucopurulent conjunctivitis, left eye[ICD10: H10.022] Diagnosis: Other allergic rhinitis[ICD10: J30.89] Lynn Finn MD, [facility] CPT-4: 34896 06/28/2018 [id number] EST. PATIENT, LEVEL IV Diagnosis: Essential (primary) hypertension[ICD10: I10] Diagnosis: Other specified hypothyroidism[ICD10: E03.8] Diagnosis: Other specified anemias[ICD10: D64.89] Diagnosis: Localized edema[ICD10: R60.0] Mishel Finn MD, [facility] CPT-4: 86966 04/04/2018 ([id number]) 61134 EST. [facility], [facility] Diagnosis: Mild persistent asthma, uncomplicated[ICD10: J45.30] Diagnosis: Actinic keratosis[ICD10: L57.0] Lynn Finn MD, [facility] CPT- 4: 80884 01/05/2018 ([id number]) Miscellaneou s no charge Diagnosis: Essential (primary) hypertension[ICD10: I10] Damari Finn MD, [facility] CPT-4: 55546 12/12/2017 [id number] EST. PATIENT, LEVEL III Diagnosis: Essential (primary) hypertension[ICD10: I10] Diagnosis: Atrophy of thyroid (acquired)[ICD10: E03.4] Diagnosis: Low back pain[ICD10: M54.5] Mishel Finn MD, [facility] CPT-4: 63350 11/29/2017 28529 EST. PATIENT, LEVEL III Diagnosis: Pain in left hip[ICD10: M25.552] Mishel Finn MD, [facility] CPT-4: 55222 10/25/2017 03472 EST. PATIENT, LEVEL IV Diagnosis: Localized edema[ICD10: R60.0] Mishel Finn MD, [facility] CPT-4: 89684 09/12/2017 21390 EST. PATIENT, LEVEL IV Diagnosis: Mild persistent asthma with (acute) exacerbation[ICD10: J45.31] Mishel Finn MD, [facility] CPT-4: 76254 06/14/2017 17007 EST. PATIENT, LEVEL III Diagnosis: Localized edema[ICD10: R60.0] Diagnosis: Mild persistent asthma, uncomplicated[ICD10: J45.30] Mishel Finn MD, [facility] CPT-4: 32648 05/10/2017 39242 EST. PATIENT, LEVEL III Diagnosis: Mild persistent asthma with (acute) exacerbation[ICD10: J45.31] Mishel Finn MD, [facility] CPT-4: 47162 04/19/2017 ([id number]) 59611 EST. [facility]: Contusion of left wrist, initial encounter[ICD10: S60.212A] Diagnosis: Hypothyroidism, unspecified[ICD10: E03.9] Diagnosis: Mild persistent asthma with (acute) exacerbation[ICD10: J45.31] Diagnosis: Low back pain[ICD10: M54.5] Lynn Finn MD, [facility] CPT- 4: 14022 03/27/2017 ([id number]) 45954 EST. [facility] Diagnosis: Essential (primary) hypertension[ICD10: I10] Diagnosis: Atrophy of thyroid (acquired)[ICD10: E03.4] Diagnosis: Low back pain[ICD10: M54.5] Damari Finn MD, [facility] CPT-4: 62852 01/26/2017 39972 EST. PATIENT, LEVEL III Diagnosis: Other allergic rhinitis[ICD10: J30.89] Diagnosis: Mild persistent asthma with (acute) exacerbation[ICD10: J45.31] Mishel Finn MD, [facility] CPT-4: 33864 12/07/2016 03921 EST. PATIENT, LEVEL III Diagnosis: Mild persistent asthma with (acute) exacerbation[ICD10: J45.31] Mishel Finn MD, [facility] CPT-4: 66946 11/28/2016 34940 EST. PATIENT, LEVEL III Diagnosis: Mild persistent asthma with (acute) exacerbation[ICD10: J45.31] Diagnosis: Acute bronchitis due to other specified organisms[ICD10: J20.8] Mishel Finn MD, [facility] CPT-4: 64947 11/15/2016 15790 EST. PATIENT, LEVEL IV Diagnosis: Other acute sinusitis[ICD10: J01.80] Diagnosis: Other allergic rhinitis[ICD10: J30.89] Diagnosis: Mild persistent asthma with (acute) exacerbation[ICD10: J45.31] Mishel Finn MD, [facility] CPT-4: 63235 10/17/2016 ([id number]) 78359 EST. P ATIENT, LEVEL IV Diagnosis: Essential (primary) hypertension[ICD10: I10] Diagnosis: Low back pain[ICD10: M54.5] Damari Finn MD, [facility] CPT-4: 24969 09/28/2016 43745 EST. PATIENT, LEVEL III Diagnosis: Tinea barbae and tinea capitis[ICD10: B35.0] Diagnosis: Other specified hypothyroidism[ICD10: E03.8] Mishel Finn MD, [facility] CPT-4: 71563 06/29/2016 ([id number]) 29152 EST. P ATIENT, LEVEL IV Diagnosis: Essential (primary) hypertension[ICD10: I10] Diagnosis: Atrophy of thyroid (acquired)[ICD10: E03.4] Diagnosis: Rash and other nonspecific skin eruption[ICD10: R21] Damari Finn MD, [facility] CPT-4: 04103 06/01/2016 ([id number]) 10505 EST. P ATIENT, LEVEL III Diagnosis: Cellulitis of groin[ICD10: L03.314] Damari Finn MD, [facility] CPT- 4: 91953 05/11/2016 ([id number]) 80772 EST. P ATIENT, LEVEL IV Diagnosis: Hypothyroidism, unspecified[ICD10: E03.9] Diagnosis: Candidiasis of vulva and vagina[ICD10: B37.3] Diagnosis: Essential (primary) hypertension[ICD10: I10] Diagnosis: Low back pain[ICD10: M54.5] Lynn Finn MD, [facility] CPT- 4: 68476 04/05/2016 89099 EST. PATIENT, LEVEL III Diagnosis: Other acute sinusitis[ICD10: J01.80] Diagnosis: Rash and other nonspecific skin eruption[ICD10: R21] Mishel Finn MD, [facility] CPT-4: 98551 04/01/2016 ([id number]) 34691 EST. P ATIENT, LEVEL IV Diagnosis: Essential (primary) hypertension[ICD10: I10] Diagnosis: Hypothyroidism, unspecified[ICD10: E03.9] Diagnosis: Low back pain[ICD10: M54.5] Diagnosis: Other obesity due to excess calories[ICD10: E66.09] Lynn Finn MD, [facility] CPT-4: 56514 01/26/2016 25373 EST. PATIENT, LEVEL IV Diagnosis: Essential (primary) hypertension[ICD10: I10] Diagnosis: Cutaneous abscess of face[ICD10: L02.01] Mishel Finn MD, [facility] CPT-4: 26800 12/21/2015 ([id number]) 34693 EST. P ATIENT, LEVEL III Diagnosis: Cutaneous abscess of groin[ICD10: L02.214] Diagnosis: Hypothyroidism, unspecified[ICD10: E03.9] Lynn Finn MD, [facility] CPT-4: 34009 10/12/2015 ([id number]) 31277 EST. P ATIENT, LEVEL III Diagnosis: Essential (primary) hypertension[ICD10: I10] Diagnosis: Hypothyroidism, unspecified[ICD10: E03.9] Diagnosis: Allergic rhinitis, unspecified[ICD10: J30.9] Lynn Finn MD, [facility] CPT-4: 25428 08/24/2015 ([id number]) 97596 EST. P ATIENT, LEVEL III Diagnosis: Skin infection[ICD9: 686.9] Damari Finn MD, [facility] CPT-4: 19933 06/01/2015 ([id number]) 24972 EST. P ATIENT, LEVEL III Diagnosis: Hypothyroidism[ICD9: 244.9] Diagnosis: ESSENTIAL HYPERTENSION[ICD9: 401.9] Damari Finn MD, [facility] CPT- 4: 34530 05/21/2015 ([id number]) 57773 EST. P ATIENT, LEVEL III Diagnosis: Hypothyroidism[ICD9: 244.9] Diagnosis: Fingernail abnormalities[ICD9: 703.8] [facility] CPT-4: 42766 03/26/2015 ([id number]) 47763 EST. P ATIENT, LEVEL II Diagnosis: Hypothyroidism[ICD9: 244.9] Maritza Dao [facility] CPT-4: 96337 03/11/2015 ([id number]) 08488 EST. P ATIENT, LEVEL IV Diagnosis: ESSENTIAL HYPERTENSION[ICD9: 401.9] Diagnosis: Low back pain[ICD9: 724.2] Diagnosis: Hypothyroidism[ICD9: 244.9] [facility] CPT-4: 47229 12/11/2014 ([id number]) 26082 EST. P ATIENT, LEVEL IV Diagnosis: Hidradenitis suppurativa[ICD9: 705.83] Diagnosis: ESSENTIAL HYPERTENSION[ICD9: 401.9] Diagnosis: Low back pain[ICD9: 724.2] Diagnosis: Lumbar spinal stenosis[ICD9: 724.02] Diagnosis: HYPOTHYROIDISM[ICD9: 244.9] [facility] CPT-4: 65249 09/18/2014 Office outpatient ne w 30 minutes Diagnosis: ESSENTIAL HYPERTENSION[ICD9: 401.9] Diagnosis: Hypothyroidism[ICD9: 244.9] Diagnosis: Low back pain[ICD9: 724.2] [facility] CPT- 4: 01256 07/31/2014 Plan of Care Planned Activity Notes C odes Status Date Visit Plan: Hypothyroidism -patient is having symptoms of over supplementation -check labs today Skin changes-patient used to see Dr Solitario but hasn't see anyone recently -recommend skin check with Dr Yamel boyd- stable- no change in current treatment 03/21/2019 Appointment: Lynn Arenas WPtel: [address] [place], [place] [phone] (30 min) [facility] 03/21/2019 Patient Education: Patient Medication Summary Completed [...] from this medical practice. 01/22/2019 Appointment: Lynn Arenastel: [phone] [phone] (30 min) Complex 01/22/2019 Patient Education: [...] and treat as indicated 10/30/2018 [facility]ment[phone] ([facility] min) Complex 10/30/2018 Patient Education: Patient Medication Summary Completed 10/30/2018 Patient Education: Hypertension Completed 10/30/2018 Patient Education: Back Pain Completed 10/30/2018 Appointment: Lynn Arenas: [phone] [phone] (30 min) Complex 10/26/2018 Patient Education: Patient Medication Summary Completed 10/23/2018 Appointment: Lynn Arenas WPtel: [phone] [phone] (15 min) Moderate 10/19/2018 Appointment: TempleDamari WPtel: [phone] [facility] (15 min) Moderate 09/19/2018 Visit Plan: Sinusitis [...] times daily. 06/28/2018 Appointment: [facility] [phone] [phone] [place] (30 min) Complex 06/28/2018 Patient [...] to monitor. 04/04/2018 Appointment: Mishel Balderrama WPtel: [address] [place], [place] [phone] (15 min) Moderate 04/04/2018 Patient Education: Patient Medication Summary Completed 04/04/2018 Visit Plan: Wound Instructions - Pt was instructed to keep the wound clean, wash with antibacterial soap, use triple antibiotic ointment, call if redness, pustular drainage, or any other acute concerns. 01/19/2018 Appointment: Lynn Arenas WPtel: [phone] [phone] (30 min) Complex 01/19/2018 Patient Education: [...] concerns. 01/05/2018 Appointment: Lynn Arenas WPtel: [phone] [phone] (30 min) Complex 01/05/2018 Patient Education: [...] not improve. 11/29/2017 Appointment: [facility] Balderr[facility] [phone] [facility] (30 min) Complex 11/29/2017 Patient Education: Patient [...] improve. 10/25/2017 Appointment: Mis[facility] Balderrama [facility] [phone] [facility] [place] (30 min) Complex 10/25/2017 Patient [...] edema. 09/12/2017 Appointment: Mis[facility] Balderr[facility] [phone] [facility] [place] (30 min) Complex 09/12/2017 Patient Education: Patient Medication Summary Completed 09/12/2017 Appointment: [facility] [phone] [phone] [place] (30 min) Complex 06/27/2017 Visit [...] changes. 06/14/2017 Appointment: Mishel Balderrama [facility] [phone] [facility] (15 min) Moderate 06/14/2017 Patient Education: Patient [...] changes 05/10/2017 Appointment: Mishel Balderrama [facility]Ptel: [phone] [facility] [place] (15 min) Moderate 05/10/2017 Patient Education: [...] acute changes. 04/19/2017 Appointment: Mishel Balderrama [facility]Ptel: [phone] [facility] [place] (15 min) Moderate 04/19/2017 Patient Education: [...] on previous levels of control. Low back xqss-xwftzvx-akjnge tramadol for prn use 03/27/2017 Appointment: Lynn Arenas WPtel: [phone] [phone] (30 min) Complex 03/27/2017 Patient Education: [...] improve. 01/26/2017 [phone] ([facility]) Moderate 01/26/2017 Patient Education: [...] or concerns. 12/07/2016 Appointment: Mishel Balderrama [facility]el: [phone] [facility] (15 min) Moderate 12/07/2016 Patient Education: [...] symptoms. 11/28/2016 Appointment: Mishel Balderrama [facility]Ptel: [phone] [facility] (15 min) Moderate 11/28/2016 Patient Education: Patient Medication Summary Completed 11/28/2016 Appointment: Mishel Balderrama [facility]Ptel: [phone] [facility] (15 min) Moderate 11/24/2016 Visit Plan: Bronchitis [...] changes. 11/15/2016 Appointment: Mishel Balderrama [facility]Ptel: [phone] [facility] (30 min) Complex 11/15/2016 Patient Education: Patient [...] changes. 10/17/2016 Appointment: Mis[facility] Balderrama [facility]Ptel[facility] [phone] [facility] (30 min) Complex 10/17/2016 Patient Education: Patient [...] tylenol 09/28/2016 Appointment: Damari Finn WPtel: [phone] [facility] (15 min) Moderate 09/28/2016 Patient Education: Patient [...] control. 06/29/2016 Appointment: Lynn Arenas WPtel: [phone] [phone] [place] (15 min) Moderate 06/29/2016 Patient [...] for fluconazole 06/01/2016 [phone] ([facility]) Moderate 06/01/2016 Patient Education: Patient Medication Summary Completed 06/01/2016 Patient Education: Obesity Completed 06/01/2016 Visit Plan: Cellulitis - continue w ith oral antibiotics as previously directed, return to clinic as previously directed, call for acute change in symptoms, worsening redness, warmth, discharge. 05/11/2016 App[facility]ment: [phone] [phone] (15 min) Moderate 05/11/2016 Patient Education: Patient [...] concerns. 04/01/2016 Appointment: Lynn Arenas WPtel: [phone] (30 min) Complex 04/01/2016 Patient Education: Patient Medication Summary Completed 04/01/2016 Patient Education: Obesity Completed 04/01/2016 Appointment: Lynn Arenas WPtel: [address] [place], [place] [phone] (30 min) Complex 03/29/2016 Visit Plan: Hypertension [...] levels of control. Low back pain-refill tramadol Cqdml-xeghheihez-lwvqvjxr resolved 01/26/2016 Appointment: Lynn Arenas WPtel: [phone] (30 min) Complex 01/26/2016 Patient Education: Patient Medication Summary Completed 01/26/2016 Patient Education: Obesity Completed 01/26/2016 Care Plan: BMI Above normal followup RADHA F-MGMT EDUC & TRAIN 1 PT Pending 01/26/2016 Care Plan: Referral Order SNOMED-CT : [id number] Pending 01/07/2016 Appointment: Lynn Arenas WPtel: [address] [place], [place] [phone] (15 min) Moderate 12/24/2015 Visit Plan: Hypertension [...] improving. 06/01/2015 [facility]ment: [phone] (15 min) Moderate 06/01/2015 Patient Education: [...] Appointment: Damari Finn WPtel: [facility] [facility] follow up 12/11/2014 Patient Education: Patient Medication Summary Completed 12/11/2014 Patient Education: Hypertension Completed 12/11/2014 Appointment: Damari Finn WPtel: [address] [place] [phone] follow up 11/27/2014 Visit Plan: Hidradenitis Suppurativ [...] to get her back MRI done at [facility] in [place] as that is where her specialist will be once we get her an appt with one of the local Neurosurgeons. 09/18/2014 Appointment: Damari Finn WPtel: [facility] Follow up 09/18/2014 Patient Education: Patient [...] scheduled 07/31/2014 Appointment: [facility] [phone] [phone] New Patient 07/31/2014 Patient Education: Patient Medication Summary Completed 07/31/2014 Referral: Artur Daugherty she w ill be calling and making her appt Initiated Referral: Artur Daugherty Referral Initiated Instructions Comment . Edema - Right leg noticeably more [...] . 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 Low back tbzp-dljaiuf-vtontx tramadol for prn use . Brittle fingernail [...] worsening or does not improve. Declined Procedure: (77202) FLU VAC NO PRSV 4 JUSTYNA 3 YRS+; Declined Reason: refused Physical therapy at [facility] . Hypertension - well controlled [...] . Asthma Exacerbation - Asthma is a applications support specialist jamee problem for this patient, however, the [...] . Asthma Exacerbation - Asthma is a applications support specialist jamee problem for this patient, however, the [...] pustular drainage, or any other acute concerns. bactroban ointment t o sore twice [...] levels of control. Low back pain-refill tramadol Zqfpy-vzfpqvfrwb-duahgthr resolved . Hypertension - wel l controlled [...] to get her back MRI done at [facility] in [place] as that is where her specialist will [...]
--- OUTSIDE RECORDS SUMMARY | 2020-02-20 18:54 | XMS REPORT | CCD ---
Author Author Ewa Arenas Organization Damari Finn MD, 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 Unknown Has never used illegal drugs 014 Allergies, Adverse Reactions, Alerts Substance Reaction Codes Entered Date Inactivated Date Status * NO KNOWN FOOD BEVERLY RGIES Unknown 07/31/2014 No Inactive Date Active bactrim hives, rash RxNorm: 259645 04/05/2016 No Inactive Date Active Past Medical History Illness Codes Condition Status Onset Date Resolved Date Essential (primary) hypertension ICD-9: 401.9 ICD-10: I10 Active 07/31/2014 Unknown Hypothyroidism, unsp ecified ICD-9: 244.9 ICD-10: E03.9 Active 07/31/2014 Unknown Low back pain ICD-9: 724.2 ICD-10: M54.5 Active 04/04/2016 Unknown Mild intermittent as thma, uncomplicated ICD-9: [...] Condition Codes Effectiv e Dates Condition Status Essential (primary) hypertension ICD-9: 401.9 ICD-10: I10 07/31/2014 Active Hypothyroidism, unsp ecified ICD-9: 244.9 ICD-10: E03.9 07/31/2014 Active Low back pain ICD-9: 724.2 ICD-10: M54.5 04/04/2016 Active Mild intermittent as thma, uncomplicated ICD-9: [...] Fill Instructions lorazepam 1 mg tablet RxNorm: 605937 Tablet(s) TAKE TWO TABLETS BY MOUTH AT B EDTIME NEEDED FOR INSOMNIA AND ONE TABLET DAILY NEEDED ANXIETY 03/15/2019 05/13/2019 Active tramadol 50 mg tablet RxNorm: 603961 1 Tablet(s) PO Q4 PRN as needed for pain 03/15/2019 04/23/2019 Ac tive tramadol 50 mg tablet RxNorm: 857618 1 Tablet(s) PO Q4 PRN as needed for pain 02/20/2019 03/14/2019 In active lorazepam 1 mg tablet RxNorm: 630976 Tablet(s) TAKE TWO TABLETS BY MOUTH AT B EDTIME NEEDED FOR INSOMNIA AND ONE TABLET DAILY NEEDED ANXIETY 01/04/2019 03/03/2019 Inactive tramadol 50 mg tablet RxNorm: 290471 1 Tablet(s) PO Q4 PRN as needed for pain 12/05/2018 01/12/2019 In active Keflex 500 mg capsule RxNorm: 195510 1 Capsule(s) PO TID 12/05/2018 12/11/2018 Inactive ciprofloxacin 0.3 % eye drops RxNorm: 736085 INSTILL TWO DROPS TO THE AFFECTED EYE(S) THREE TIMES A DAY 11/23/2018 12/25/2018 Inactive levothyroxine 137 mc g tablet RxNorm: 165946 1 Tablet(s) PO daily TAKE ONE TABLET BY MOUTH DAILY ON AN EMPTY STOMACH 10/30/2018 01/22/2020 Active ProAir HFA 90 mcg/ac tuation aerosol inhaler RxNorm: 7443974 1-2 Puff(s) INH Q4 P RN INHALE 1 TO 2 PUFFS FOUR TIMES A DAY NEEDED FOR ASTHMA 10/30/2018 01/27/2019 Inactive tramadol 50 mg tablet RxNorm: 566270 1 Tablet(s) PO Q4 PRN as needed for pain 10/29/2018 12/04/2018 In active levothyroxine 125 mc g tablet RxNorm: 071164 1 Tablet(s) PO daily TAKE ONE TABLET BY MOUTH DAILY ON AN EMPTY STOMACH 09/06/2018 10/29/2018 Inactive lorazepam 1 mg tablet RxNorm: 138298 Tablet(s) TAKE TWO TABLETS BY MOUTH AT B EDTIME NEEDED FOR INSOMNIA AND ONE TABLET DAILY NEEDED ANXIETY 09/06/2018 11/02/2018 Inactive tramadol 50 mg tablet RxNorm: 364068 1 Tablet(s) PO Q4 PRN as needed for pain 09/06/2018 10/15/2018 In active tramadol 50 mg tablet RxNorm: 302964 1 Tablet(s) PO Q4 PRN as needed for pain 07/06/2018 08/14/2018 In active ciprofloxacin 0.3 % eye drops RxNorm: 430355 2 Drop(s) ophthalmic (eye) TID 06/28/2018 07/07/2018 In active lorazepam 1 mg tablet RxNorm: 426879 Tablet(s) TAKE TWO TABLETS BY MOUTH AT B EDTIME NEEDED FOR INSOMNIA AND ONE TABLET DAILY NEEDED ANXIETY 06/28/2018 08/26/2018 Inactive doxycycline hyclate 100 mg tablet RxNorm: 8566024 1 Tablet(s) PO BID 06/28/2018 07/04/2018 Inactive tramadol 50 mg tablet RxNorm: 166866 1 Tablet(s) PO Q4 PRN as needed for pain 06/13/2018 07/05/2018 In active lorazepam 1 mg tablet RxNorm: 067815 Tablet(s) TAKE TWO TABLETS BY MOUTH AT B EDTIME NEEDED FOR INSOMNIA AND ONE TABLET DAILY NEEDED ANXIETY 05/23/2018 06/27/2018 Inactive tramadol 50 mg tablet RxNorm: 349118 1 Tablet(s) PO Q4 PRN as needed for pain 05/23/2018 06/12/2018 In active levothyroxine 125 mc g tablet RxNorm: 990134 Tablet(s) TAKE ONE TA BLET BY MOUTH DAILY ON AN EMPTY STOMACH 05/23/2018 09/05/2018 Inactive tramadol 50 mg tablet RxNorm: 040663 1 Tablet(s) PO Q4 PRN as needed for pain 05/17/2018 05/22/2018 In active levothyroxine 125 mc g tablet RxNorm: 671159 TAKE ONE TABLET BY MO UT DAILY 05/15/2018 06/27/2018 In active levothyroxine 125 mc g tablet RxNorm: 083321 TAKE ONE TABLET BY MO UT DAILY 05/15/2018 06/27/2018 In active tramadol 50 mg tablet RxNorm: 460312 1 Tablet(s) PO Q4 PRN as needed for pain 04/30/2018 05/16/2018 In active Advair Diskus 100 mc g-50 mcg/dose powder for inhalation RxNorm: 9768779 1 Puff(s) INH BID 04/06/2018 01/21/2019 Inactive Symbicort 80 mcg-4.5 mcg/actuation HFA aerosol inhaler RxNorm: 1477316 2 Puff(s) INH BID 04/06/2018 01/21/2019 Inactive Advair Diskus 250 mc g-50 mcg/dose powder for inhalation RxNorm: 2868825 1 Puff(s) INH BID 04/05/2018 09/01/2018 Inactive Zyrtec 10 mg tablet RxNorm: 7444038 1 Tablet(s) PO daily x1 week then PRN 04/05/2018 08/02/2018 In active lisinopril 20 mg-hyd rochlorothiazide 25 mg tablet RxNorm: 613368 Tablet(s) TAKE ONE TABLET BY MOUTH DAILY 04/05/2018 10/29/2018 Inactive Zyrtec 10 mg tablet RxNorm: 2515544 1 Tablet(s) PO daily 04/04/2018 05/03/2018 Inactive tramadol 50 mg tablet RxNorm: 347075 1 Tablet(s) PO Q4 PRN as needed for pain 03/13/2018 04/21/2018 In active lorazepam 1 mg tablet RxNorm: 795051 Tablet(s) TAKE TWO TABLETS BY MOUTH AT B EDTIME NEEDED FOR INSOMNIA AND ONE TABLET DAILY NEEDED ANXIETY 03/02/2018 04/30/2018 Inactive levothyroxine 125 mc g tablet RxNorm: 389880 1 Tablet(s) PO daily 02/06/2018 05/06/2018 Inactive levothyroxine 125 mc g tablet RxNorm: 278358 TAKE ONE TABLET BY [facility] DAILY ON AN EMPTY STOMACH 02/06/2018 05/22/2018 Inactive tramadol 50 mg tablet RxNorm: 432948 1 Tablet(s) PO Q4 PRN as needed for pain 01/26/2018 03/06/2018 In active lorazepam 1 mg tablet RxNorm: 027994 Tablet(s) TAKE TWO TABLETS BY MOUTH AT B EDTIME NEEDED FOR INSOMNIA AND ONE TABLET DAILY NEEDED ANXIETY 01/23/2018 06/27/2018 Inactive Symbicort 80 mcg-4.5 mcg/actuation HFA aerosol inhaler RxNorm: 9625153 INH 01/05/2018 06/27/2018 In active tramadol 50 mg tablet RxNorm: 347235 1 Tablet(s) PO Q4 PRN as needed for pain 01/04/2018 01/25/2018 In active Advair Diskus 250 mc g-50 mcg/dose powder for inhalation RxNorm: 9253331 1 Puff(s) INH BID 11/29/2017 03/28/2018 Inactive hydrochlorothiazide 12.5 mg tablet RxNorm: 060099 1 Tablet(s) PO daily 11/29/2017 12/28/2017 In active tramadol 50 mg tablet RxNorm: 059570 1 Tablet(s) PO Q4 PRN as needed for pain 11/23/2017 01/01/2018 In active tramadol 50 mg tablet RxNorm: 718271 1 Tablet(s) PO Q4 PRN as needed for pain 10/06/2017 11/14/2017 In active lorazepam 1 mg tablet RxNorm: 872046 Tablet(s) TAKE TWO TABLETS BY MOUTH AT B EDTIME NEEDED FOR INSOMNIA AND ONE TABLET DAILY NEEDED ANXIETY 09/12/2017 06/27/2018 Inactive tramadol 50 mg tablet RxNorm: 874451 1 Tablet(s) PO Q4 PRN as needed for pain 09/12/2017 10/05/2017 In active tramadol 50 mg tablet RxNorm: 972451 1 Tablet(s) PO Q4 PRN as needed for pain 08/15/2017 09/11/2017 In active tramadol 50 mg tablet RxNorm: 152196 1 Tablet(s) PO Q4 PRN as needed for pain 06/29/2017 08/07/2017 In active ProAir HFA 90 mcg/ac tuation aerosol inhaler RxNorm: 9851804 INHALE 1 TO 2 PUFFS FOUR TIMES A DAY NEEDED FOR ASTHMA 06/14/2017 11/10/2017 Inactive prednisone 20 mg tablet RxNorm: 970186 1 Tablet(s) PO BID x 2 days, then 1 pill daily x 3 days, then 1/2 pill every other day x 3 doses. 06/14/2017 09/11/2017 Inactive Kenalog 40 mg/mL madhavi pension for injection RxNorm: 1169114 1 Milliliter(s) Inj 06/14/2017 06/14/2017 In active Zyrtec 10 mg tablet RxNorm: 1790333 1 Tablet(s) PO daily 06/14/2017 07/13/2017 Inactive tramadol 50 mg tablet RxNorm: 096953 1 Tablet(s) PO Q4 PRN as needed for pain 06/08/2017 06/27/2017 In active [SAVINGS FOR UNINSURED PATIENTS -- BIN:0 89408, PCN: ASPROD1, Group: [id number], ID# [id number], Process claim through [employer], for questions: . THIS IS NOT INSURANCE.] tramadol 50 mg tablet RxNorm: 229109 1 Tablet(s) PO Q4 PRN as needed for pain 05/16/2017 06/04/2017 In active [SAVINGS FOR UNINSURED PATIENTS -- BIN:0 55925, PCN: ASPROD1, Group: [id number], ID# [id number], Process claim through [employer], for questions: . THIS IS NOT INSURANCE.] lorazepam 1 mg tablet RxNorm: 306580 Tablet(s) TAKE TWO TABLETS BY MOUTH AT B EDTIME NEEDED FOR INSOMNIA AND ONE TABLET DAILY NEEDED ANXIETY 05/16/2017 08/13/2017 Inactive Lasix 20 mg tablet RxNorm: 1 Tablet(s) PO daily 05/10/2017 05/09/2017 Inactive Lasix 20 mg tablet RxNorm: 1 Tablet(s) PO daily 05/10/2017 05/12/2017 Inactive potassium chloride E R 10 mEq tablet,extended release RxNorm: 913233 1 Tablet(s) PO daily while on the lasix 05/10/2017 05/09/2017 Inactive potassium chloride E R 10 mEq tablet,extended release RxNorm: 903464 1 Tablet(s) PO daily while on the lasix 05/10/2017 05/12/2017 Inactive prednisone 20 mg tablet RxNorm: 393046 1 Tablet(s) PO BID x 2 days, then 1 pill daily x 3 days, then 1/2 pill every other day x 3 doses. 04/19/2017 06/13/2017 Inactive Zithromax Z-Linus 250 mg tablet RxNorm: 068719 1 Tablet(s) PO UD 04/13/2017 06/28/2017 Inactive prednisone 20 mg tablet RxNorm: 772187 1 Tablet(s) PO BID 04/13/2017 04/17/2017 Inactive levothyroxine 125 mc g tablet RxNorm: 233963 1 Tablet(s) PO daily 04/11/2017 10/07/2017 Inactive tramadol 50 mg tablet RxNorm: 391238 1 Tablet(s) PO Q4 PRN as needed for pain 03/27/2017 04/15/2017 In active [SAVINGS FOR UNINSURED PATIENTS -- BIN:0 13369, PCN: ASPROD1, Group: [id number], ID# [id number], Process claim through [employer], for questions: . THIS IS NOT INSURANCE.] Kenalog 40 mg/mL madhavi pension for injection RxNorm: 7153882 1 Milliliter(s) Inj 03/27/2017 03/27/2017 In active tramadol 50 mg tablet RxNorm: 701670 1 Tablet(s) PO Q4H as needed for pain 03/09/2017 03/26/2017 In active [SAVINGS FOR UNINSURED PATIENTS -- BIN:0 58832, PCN: ASPROD1, Group: [id number], ID# [id number], Process claim through [employer], for questions: . THIS IS NOT INSURANCE.] lisinopril 20 mg-hyd rochlorothiazide 25 mg tablet RxNorm: 227519 TAKE ONE TABLET BY MOUTH DAILY 01/29/2017 11/21/2017 Inactive lorazepam 1 mg tablet RxNorm: 195694 Tablet(s) TAKE TWO TABLETS BY MOUTH AT B EDTIME NEEDED FOR INSOMNIA AND ONE TABLET DAILY NEEDED ANXIETY 01/05/2017 04/04/2017 Inactive tramadol 50 mg tablet RxNorm: 447259 1 Tablet(s) PO Q4H as needed for pain 12/07/2016 01/13/2017 In active [SAVINGS FOR UNINSURED PATIENTS -- BIN:0 90790, PCN: ASPROD1, Group: [id number], ID# [id number], Process claim through [employer], for questions: . THIS IS NOT INSURANCE.] Kenalog 40 mg/mL madhavi pension for injection RxNorm: 2102615 Milliliter(s) Inj 12/07/2016 12/07/2016 In active nystatin 100,000 uni t/mL oral suspension RxNorm: 697408 4 Milliliter(s) PO QI D 12/07/2016 12/11/2016 In active Francia-D 12 Hour 60 mg-120 mg tablet,extended release RxNorm: 642785 1 Tablet(s) PO BID 12/07/2016 01/11/2017 Inactive lorazepam 1 mg tablet RxNorm: 662824 Tablet(s) TAKE TWO TABLETS BY MOUTH AT B EDTIME AND ONE TABLET DAILY NEEDED 12/07/2016 01/04/2017 Inactive (Response to an electronic controlled substance refill request - RxReferenceNumber: [id number]) albuterol sulfate 2. 5 mg/3 mL (0.083 %) solution for nebulization RxNorm: 395629 3 Milliliter(s) INH TID 11/29/2016 11/28/2016 Inactive prednisone 10 mg tablet RxNorm: 500093 Tablet(s) PO UD 11/29/2016 12/05/2016 Inactive 6,5,4,3,2,1 doxycycline hyclate 100 mg tablet RxNorm: 543420 1 Tablet(s) PO BID 11/29/2016 12/04/2016 Inactive albuterol sulfate 2. 5 mg/3 mL (0.083 %) solution for nebulization RxNorm: 629851 3 Milliliter(s) INH TID 11/29/2016 12/03/2016 Inactive Kenalog 40 mg/mL madhavi pension for injection RxNorm: 0542046 Milliliter(s) Inj 11/28/2016 11/28/2016 In active tramadol 50 mg tablet RxNorm: 180843 1 Tablet(s) PO Q4H as needed for pain 11/15/2016 12/06/2016 In active [SAVINGS FOR UNINSURED PATIENTS -- BIN:0 82404, PCN: ASPROD1, Group: [id number], ID# [id number], Process claim through [employer], for questions: . THIS IS NOT INSURANCE.] prednisone 20 mg tablet RxNorm: 050773 2 Tablet(s) PO daily 11/15/2016 11/19/2016 Inactive Advair Diskus 100 mc g-50 mcg/dose powder for inhalation RxNorm: 5315305 1 Puff(s) INH BID 11/15/2016 06/11/2017 Inactive ProAir HFA 90 mcg/ac tuation aerosol inhaler RxNorm: 873095 INHALE 1 TO 2 PUFFS F OUR TIMES A DAY NEEDED FOR ASTHMA 11/15/2016 04/13/2017 Inactive Zithromax Z-Linus 250 mg tablet RxNorm: 276137 1 Tablet(s) PO UD 11/15/2016 11/27/2016 Inactive Zyrtec 10 mg tablet RxNorm: 2367169 1 Tablet(s) PO daily 10/17/2016 11/15/2016 Inactive Keflex 500 mg capsule RxNorm: 815395 1 Capsule(s) PO TID 10/17/2016 10/23/2016 Inactive prednisone 10 mg tablet RxNorm: 160685 Tablet(s) PO UD 10/17/2016 11/28/2016 Inactive 6,5,4,3,2,1 tramadol 50 mg tablet RxNorm: 714842 1 Tablet(s) PO Q4H as needed for pain 09/28/2016 11/06/2016 In active [SAVINGS FOR UNINSURED PATIENTS -- BIN:0 58767, PCN: ASPROD1, Group: [id number], ID# [id number], Process claim through [employer], for questions: . THIS IS NOT INSURANCE.] ProAir HFA 90 mcg/ac tuation aerosol inhaler RxNorm: 322568 INHALE 1 TO 2 PUFFS F OUR TIMES A DAY NEEDED FOR ASTHMA 09/15/2016 11/14/2016 Inactive doxycycline hyclate 100 mg tablet RxNorm: 660481 1 Tablet(s) PO BID 09/15/2016 09/24/2016 Inactive doxycycline hyclate 100 mg tablet RxNorm: 410254 1 Tablet(s) PO BID 07/29/2016 08/07/2016 Inactive tramadol 50 mg tablet RxNorm: 268267 1 Tablet(s) PO Q4H as needed for pain 07/29/2016 09/06/2016 In active [SAVINGS FOR UNINSURED PATIENTS -- BIN:0 37899, PCN: ASPROD1, Group: [id number], ID# [id number], Process claim through [employer], for questions: . THIS IS NOT INSURANCE.] lorazepam 1 mg tablet RxNorm: 299719 Tablet(s) TAKE TWO TABLETS BY MOUTH AT B EDTIME AND ONE TABLET DAILY NEEDED 07/29/2016 10/26/2016 Inactive (Response to an electronic controlled substance refill request - RxReferenceNumber: [id number]) levothyroxine 125 mc g tablet RxNorm: 711137 1 Tablet(s) PO daily 06/29/2016 06/29/2016 Inactive levothyroxine 137 mc g tablet RxNorm: 490891 1 Tablet(s) PO daily 06/29/2016 12/25/2016 Inactive ketoconazole 2 % sha mpoo RxNorm: 156362 1 Application TOP BID 06/29/2016 07/03/2016 Inactive tramadol 50 mg tablet RxNorm: 445311 1 Tablet(s) PO Q4H as needed for pain 06/16/2016 07/25/2016 In active [SAVINGS FOR UNINSURED PATIENTS -- BIN:0 74707, PCN: ASPROD1, Group: [id number], ID# [id number], Process claim through [employer], for questions: . THIS IS NOT INSURANCE.] Bactroban 2 % topica l ointment RxNorm: 436656 APPLY TO AFFECTED ARE A(S) TWO TIMES A DAY 06/16/2016 04/16/2017 Inactive fluconazole 150 mg t ablet RxNorm: 707756 1 Tablet(s) PO daily 06/01/2016 06/05/2016 Inactive gentamicin 0.1 % top ical ointment RxNorm: 195657 1 Application TOP QID 05/12/2016 05/25/2016 In active metronidazole 500 mg tablet RxNorm: 805343 1 Tablet(s) PO TID 05/11/2016 05/24/2016 Inactive gentamicin 0.1 % top ical ointment RxNorm: 845732 1 Application TOP QID 05/11/2016 05/11/2016 In active doxycycline hyclate 100 mg tablet RxNorm: 058229 1 Tablet(s) PO BID 05/11/2016 05/24/2016 Inactive lorazepam 1 mg tablet RxNorm: 188568 Tablet(s) TAKE TWO TABLETS BY MOUTH AT B EDTIME AND ONE TABLET DAILY NEEDED 05/02/2016 07/28/2016 Inactive (Response to an electronic controlled substance refill request - RxReferenceNumber: [id number]) Diflucan 150 mg tablet RxNorm: 060377 1 Tablet(s) PO daily x5 days then 1 x we ekly x 4 weeks. 05/02/2016 04/10/2017 Inactive Diflucan 150 mg tablet RxNorm: 551300 1 Tablet(s) PO every other day 04/19/2016 04/28/2016 In active Diflucan 150 mg tablet RxNorm: 816033 1 Tablet(s) PO every other day 04/19/2016 04/18/2016 In active Diflucan 150 mg tablet RxNorm: 985195 1 Tablet(s) PO daily 04/05/2016 04/11/2016 Inactive mupirocin 2 % topica l ointment RxNorm: 620708 1 Application TOP BID 04/05/2016 05/04/2016 Inactive tramadol 50 mg tablet RxNorm: 896701 1 Tablet(s) PO Q4H as needed for pain 04/05/2016 05/14/2016 In active [SAVINGS FOR UNINSURED PATIENTS -- BIN:0 88308, PCN: ASPROD1, Group: [id number], ID# [id number], Process claim through [employer], for questions: . THIS IS NOT INSURANCE.] prednisone 10 mg tablet RxNorm: 176763 Tablet(s) PO UD 04/01/2016 09/26/2016 Inactive 6,5,4,3,2,1 levothyroxine 137 mc g tablet RxNorm: 391204 1 Tablet(s) PO daily 03/21/2016 03/20/2016 Inactive levothyroxine 137 mc g tablet RxNorm: 292882 1 Tablet(s) PO daily 03/21/2016 06/28/2016 Inactive Advair Diskus 100 mc g-50 mcg/dose powder for inhalation RxNorm: 5830540 1 Puff(s) INH BID 01/26/2016 05/24/2016 Inactive tramadol 50 mg tablet RxNorm: 363337 1 Tablet(s) PO Q4H as needed for pain 01/26/2016 03/05/2016 In active [SAVINGS FOR UNINSURED PATIENTS -- BIN:0 73266, PCN: ASPROD1, Group: [id number], ID# [id number], Process claim through [employer], for questions: . THIS IS NOT INSURANCE.] Bactroban 2 % topica l ointment RxNorm: 420613 APPLY TO AFFECTED ARE A(S) TWO TIMES A DAY 12/22/2015 12/31/2015 Inactive Bactrim DS 800 mg-16 0 mg tablet RxNorm: 927522 TAKE ONE TABLET BY [facility] TWICE A DAY 12/22/2015 04/18/2016 In active Bactrim DS 800 mg-16 0 mg tablet RxNorm: 402154 1 Tablet(s) PO BID 12/21/2015 01/21/2019 Inactive lisinopril 20 mg-hyd rochlorothiazide 25 mg tablet RxNorm: 236750 1 Tablet(s) PO daily 12/21/2015 06/17/2016 Inactive [SAVINGS FOR UNINSURED PATIENTS -- BIN:0 61946, PCN: ASPROD1, Group: AME08, ID# [id number], Process claim through [employer], for questions: . THIS IS NOT INSURANCE.] tramadol 50 mg tablet RxNorm: 120595 1 Tablet(s) PO Q4H as needed for pain 12/03/2015 01/11/2016 In active [SAVINGS FOR UNINSURED PATIENTS -- BIN:0 93573, PCN: ASPROD1, Group: [id number], ID# [id number], Process claim through [employer], for questions: . THIS IS NOT INSURANCE.] lorazepam 1 mg tablet RxNorm: 505092 Tablet(s) TAKE TWO TABLETS BY MOUTH AT B EDTIME AND ONE TABLET DAILY NEEDED 11/26/2015 06/27/2018 Inactive (Response to an electronic controlled substance refill request - RxReferenceNumber: [id number]) Bactrim DS 800 mg-16 0 mg tablet RxNorm: 481365 1 Tablet(s) PO BID 11/25/2015 12/04/2015 Inactive levothyroxine 150 mc g tablet RxNorm: 194021 1 Tablet(s) PO daily 11/25/2015 03/20/2016 Inactive Bactroban 2 % topica l ointment RxNorm: 981780 1 Application TOP BID 10/12/2015 10/21/2015 Inactive Bactrim DS 800 mg-16 0 mg tablet RxNorm: 202996 1 Tablet(s) PO BID 09/07/2015 09/06/2015 Inactive Bactrim DS 800 mg-16 0 mg tablet RxNorm: 481364 1 Tablet(s) PO BID 09/07/2015 09/16/2015 Inactive lorazepam 1 mg tablet RxNorm: 729652 Tablet(s) TAKE TWO TABLETS BY MOUTH AT B EDTIME AND ONE TABLET DAILY NEEDED 08/28/2015 11/24/2015 Inactive (Response to an electronic controlled substance refill request - RxReferenceNumber: [id number]) levothyroxine 175 mc g tablet RxNorm: 591441 1 Tablet(s) PO daily 08/24/2015 11/24/2015 Inactive tramadol 50 mg tablet RxNorm: 116751 1 Tablet(s) PO Q4H as needed for pain 08/24/2015 09/11/2017 In active [SAVINGS FOR UNINSURED PATIENTS -- BIN:0 04349, PCN: ASPROD1, Group: [id number], ID# [id number], Process claim through [employer], for questions: . THIS IS NOT INSURANCE.] lisinopril 20 mg-hyd rochlorothiazide 25 mg tablet RxNorm: 895007 1 Tablet(s) PO daily TAKE 1 TABLET BY MOUTH DAILY 08/24/2015 06/27/2018 Inactive ProAir HFA 90 mcg/ac tuation aerosol inhaler RxNorm: 971118 1-2 Puff(s) INH PRN I NHALE ONE TO TWO PUFFS BY MOUTH FOUR TIMES A DAY NEEDED FOR ASTHMA 08/24/2015 12/01/2015 In active ProAir HFA 90 mcg/ac tuation aerosol inhaler RxNorm: 6791148 INHALE ONE TO TWO PU FFS BY MOUTH FOUR TIMES A DAY NEEDED FOR ASTHMA 08/17/2015 08/23/2015 Inactive Advair Diskus 250 mc g-50 mcg/dose powder for inhalation RxNorm: 8909899 1 Puff(s) INH BID 07/20/2015 07/19/2015 Inactive Advair Diskus 250 mc g-50 mcg/dose powder for inhalation RxNorm: 6225016 1 Puff(s) INH BID 07/20/2015 11/16/2015 Inactive tramadol 50 mg tablet RxNorm: 934898 1 Tablet(s) PO Q4H as needed for pain 07/10/2015 08/17/2015 In active [SAVINGS FOR UNINSURED PATIENTS -- BIN:0 20276, PCN: ASPROD1, Group: [id number], ID# [id number], Process claim through [employer], for questions: . THIS IS NOT INSURANCE.] Zithromax Z-Linus 250 mg tablet RxNorm: 749183 1 Tablet(s) PO UD 07/10/2015 01/18/2016 Inactive Keflex 500 mg capsule RxNorm: 848103 1 Capsule(s) PO TID 06/01/2015 06/07/2015 Inactive mupirocin 2 % topica l ointment RxNorm: 915112 1 Application TOP TID 06/01/2015 06/10/2015 Inactive lisinopril 20 mg-hyd rochlorothiazide 25 mg tablet RxNorm: 864393 TAKE 1 TABLET BY MOUT H DAILY 05/30/2015 08/23/2015 Inactive lisinopril 20 mg-hyd rochlorothiazide 25 mg tablet RxNorm: 118551 1 Tablet(s) PO daily 05/29/2015 11/24/2015 Inactive [SAVINGS FOR UNINSURED PATIENTS -- BIN:0 75997, PCN: ASPROD1, Group: [id number], ID# [id number], Process claim through [employer], for questions: . THIS IS NOT INSURANCE.] lorazepam 1 mg tablet RxNorm: 288289 Tablet(s) TAKE TWO TABLETS BY MOUTH AT B EDTIME AND ONE TABLET DAILY NEEDED 04/17/2015 07/13/2015 Inactive (Response to an electronic controlled substance refill request - RxReferenceNumber: [id number]) levothyroxine 200 mc g tablet RxNorm: 935662 1 Tablet(s) PO daily 03/12/2015 08/23/2015 Inactive [SAVINGS FOR UNINSURED PATIENTS -- BIN:0 70247, PCN: ASPROD1, Group: [id number], ID# [id number], Process claim through [employer], for questions: . THIS IS NOT INSURANCE.] lisinopril 20 mg-hyd rochlorothiazide 25 mg tablet RxNorm: 666775 1 Tablet(s) PO daily 03/11/2015 05/28/2015 Inactive [SAVINGS FOR UNINSURED PATIENTS -- BIN:0 45683, PCN: ASPROD1, Group: [id number], ID# [id number], Process claim through [employer], for questions: . THIS IS NOT INSURANCE.] levothyroxine 175 mc g tablet RxNorm: 739087 1 Tablet(s) PO daily 03/09/2015 03/11/2015 Inactive recheck blood in 3 months- THIS IS CORRE CT DOSAGE levothyroxine 175 mc g tablet RxNorm: 970772 1 Tablet(s) PO daily 03/09/2015 03/08/2015 Inactive recheck blood in 3 months levothyroxine 150 mc g tablet RxNorm: 089114 1 Tablet(s) PO daily 03/09/2015 03/08/2015 Inactive recheck blood in 3 months lorazepam 1 mg tablet RxNorm: 011242 TAKE TWO TABLETS BY MOUTH AT BEDTIME AND ONE TABLET DAILY NEEDED 12/25/2014 01/22/2015 Inactive (Response to an electronic controlled substance refill request - RxReferenceNumber: [id number]) lorazepam 1 mg tablet RxNorm: 284831 Tablet(s) TAKE TWO TABLETS BY MOUTH EVER Y NIGHT AT BEDTIME AND TAKE ONE TABLET BY MOUTH DAILY NEEDED 12/23/2014 12/25/2014 Inactive (Response to an electronic controlled [place] refill [place] - RxReferenceNumber: [id number]) levothyroxine 150 mc g tablet RxNorm: 552505 1 Tablet(s) PO daily 12/12/2014 03/08/2015 Inactive recheck blood in 3 months Diflucan 150 mg tablet RxNorm: 352837 1 Tablet(s) PO every other day (start af ter finished with Cipro) 11/17/2014 08/23/2015 Inactive tramadol 50 mg tablet RxNorm: 726438 1 Tablet(s) PO Q4H as needed for pain 11/10/2014 12/17/2014 In active [SAVINGS FOR UNINSURED PATIENTS -- BIN:0 16274, PCN: ASPROD1, [id number], Process claim through [employer], for questions: . THIS IS NOT INSURANCE.] Cipro 500 mg tablet RxNorm: 502883 1 Tablet(s) PO BID 10/23/2014 10/29/2014 Inactive Flagyl 500 mg tablet RxNorm: 857568 1 Tablet(s) PO TID 10/23/2014 10/29/2014 Inactive Cipro 500 mg tablet RxNorm: 731442 1 Tablet(s) PO BID 10/23/2014 10/22/2014 Inactive Flagyl 500 mg tablet RxNorm: 234411 1 Tablet(s) PO TID 10/23/2014 10/22/2014 Inactive Diflucan 150 mg tablet RxNorm: 634513 1 Tablet(s) PO every other day (start af ter finished with Cipro) 10/23/2014 11/16/2014 Inactive lorazepam 1 mg tablet RxNorm: 904341 TAKE TWO TABLETS BY MOUTH EVERY NIGHT AT BEDTIME AND TAKE ONE TABLET BY MOUTH DAILY NEEDED 10/21/2014 10/21/2014 Inactive (Response to an electronic controlled north b[place] refill request - RxReferenceNumber: [id number]) lorazepam 1 mg tablet RxNorm: 698663 TAKE TWO TABLETS BY MOUTH EVERY NIGHT AT BEDTIME AND TAKE ONE TABLET BY MOUTH DAILY NEEDED 10/21/2014 11/18/2014 Inactive (Response to an electronic controlled [place] b[place] refill request - RxReferenceNumber: [id number]) lorazepam 1 mg tablet RxNorm: 011195 Tablet(s) TAKE TWO TABLETS BY MOUTH AT B EDTIME, ALSO TAKE ONE TABLET BY MOUTH DAILY NEEDED 10/13/2014 10/21/2014 Inactive (Res ponse to an electronic controlled substance refill request - RxReferenceNumber: [id number]) ProAir HFA 90 mcg/ac tuation aerosol inhaler RxNorm: 0230185 1-2 inhale INH QID a s needed ASTHMA 10/13/2014 12/26/2014 Inactive ProAir HFA 90 mcg/ac tuation aerosol inhaler RxNorm: 2418976 1-2 inhale INH QID a s needed ASTHMA 09/18/2014 10/12/2014 Inactive meloxicam 7.5 mg tablet RxNorm: 180560 1 Tablet(s) PO daily 09/18/2014 03/10/2015 Inactive [SAVINGS FOR UNINSURED PATIENTS -- BIN:0 74973, PCN: ASPROD1, Group: [id number], ID# [id number], Process claim through [employer], for questions: . THIS IS NOT INSURANCE.] sulfamethoxazole 800 mg-trimethoprim 160 mg tablet RxNorm: 066696 1 Tablet(s) PO BID 09/18/2014 10/07/2014 Inactive levothyroxine 175 mc g tablet RxNorm: 066538 1 Tablet(s) PO daily 09/17/2014 12/11/2014 Inactive levothyroxine 175 mc g tablet RxNorm: 903345 1 Tablet(s) PO daily 09/17/2014 09/16/2014 Inactive lorazepam 1 mg tablet RxNorm: 735452 Tablet(s) TAKE TWO TABLETS BY MOUTH AT B EDTIME, ALSO TAKE ONE TABLET BY MOUTH DAILY NEEDED 09/12/2014 10/11/2014 Inactive (Res ponse to an electronic controlled substance refill request - RxReferenceNumber: [id number]) lorazepam 1 mg tablet RxNorm: 135066 TAKE TWO TABLETS BY MOUTH AT BEDTIME, AL SO TAKE ONE TABLET BY MOUTH DAILY NEEDED 09/08/2014 09/11/2014 Inactive (Res ponse to an electronic controlled substance refill request - RxReferenceNumber: [id number]) meloxicam 7.5 mg tablet RxNorm: 954805 1 Tablet(s) PO daily 09/01/2014 09/17/2014 Inactive [SAVINGS FOR UNINSURED PATIENTS -- BIN:0 14052, PCN: ASPROD1, Group: [id number], ID# [id number], Process claim through [employer], for questions: . THIS IS NOT INSURANCE.] lisinopril 20 mg-hyd rochlorothiazide 25 mg tablet RxNorm: 699737 1 Tablet(s) PO daily 09/01/2014 12/29/2014 Inactive [SAVINGS FOR UNINSURED PATIENTS -- BIN:0 98157, PCN: ASPROD1, Group: AME08, ID# [id number], Process claim through [employer], for questions: . THIS IS NOT INSURANCE.] tramadol 50 mg tablet RxNorm: 888153 1 Tablet(s) PO Q4H as needed for pain 08/20/2014 11/07/2014 In active [SAVINGS FOR UNINSURED PATIENTS -- BIN:0 65693, PCN: ASPROD1, Group: [id number], ID# [id number], Process claim through [employer], for questions: . THIS IS NOT INSURANCE.] meloxicam 7.5 mg tablet RxNorm: 560104 1 Tablet(s) PO daily 08/14/2014 08/31/2014 Inactive [SAVINGS FOR UNINSURED PATIENTS -- BIN:0 57401, PCN: ASPROD1, Group: AME08, ID# [id number], Process claim through [employer], for questions: . THIS IS NOT INSURANCE.] lorazepam 1 mg tablet RxNorm: 528976 2 Tablet(s) PO QHS and 1 tab qd PRN 08/01/2014 09/08/2014 In active [SAVINGS FOR UNINSURED PATIENTS -- BIN:0 51718, PCN: ASPROD1, Group: [id number], ID# [id number], Process claim through [employer], for questions: . THIS IS NOT INSURANCE.] levothyroxine 200 mc g tablet RxNorm: 433715 1 Tablet(s) PO daily 07/31/2014 09/16/2014 Inactive [SAVINGS FOR UNINSURED PATIENTS -- BIN:0 33956, PCN: ASPROD1, Group: AME08, ID# [id number], Process claim through [employer], for questions: . THIS IS NOT INSURANCE.] lorazepam 1 mg tablet RxNorm: 017013 2 Tablet(s) PO QHS and 1 tab qd PRN No Start Date 07/31/2014 Inactive Phenergan VC-Codeine oral RxNorm: 598819 oral No S tart Date 11/26/2017 Inactive meloxicam 7.5 mg tablet RxNorm: 769811 1 Tablet(s) PO daily No Start Date 08/13/2014 Inactive lisinopril 20 mg-hyd rochlorothiazide 25 mg tablet RxNorm: 339437 1 Tablet(s) PO daily No Start Date 08/31/2014 Inactive levothyroxine 200 mc g tablet RxNorm: 583409 1 Tablet(s) PO daily No Start Date 07/30/2014 Inactive Diflucan 150 mg tablet RxNorm: 689035 1 Tablet(s) PO every other day No Start Date 10/22/2014 Inactive Zithromax Z-Linus 250 mg tablet RxNorm: 229760 1 Tablet(s) PO UD No Start Date 07/09/2015 Inactive tramadol 50 mg tablet RxNorm: 587797 1 Tablet(s) PO Q6 as needed No Start Date 08/19/2014 Inactive Medication Administered Medication Codes Instruc tions Start Date Status Kenalog 40 mg/mL suspension for injection RxNorm: 7186495 1Milliliter 06/14/2017 N o longer Active Kenalog 40 mg/mL suspension for injection RxNorm: 2214404 1Milliliter 03/27/2017 N o longer Active Kenalog 40 mg/mL suspension for injection RxNorm: 6222145 Milliliter 12/07/2016 No longer Active Kenalog 40 mg/mL suspension for injection RxNorm: 6899762 Milliliter 11/28/2016 No longer Active Immunizations Vaccine Codes Date Status Pneumococcal CVX: 33 09/1986 completed Tetanus, Diptheria, Pertussis CVX: 113 03/11/1987 completed Tetanus/Diptheria CVX: 113 03/11/1987 completed Influenza CVX: 141 03/11 completed Assessments Condition Codes Effectiv e Dates Low back pain ICD-10: M54.5 ICD-9: 724.2 01/22/2019 Mild intermittent asthma, uncomplicated ICD-10: J45.20 ICD-9: 493.90 01/22/2019 Hypothyroidism, unspecified ICD-10: E03.9 ICD-9: 244.9 01/22/2019 Essential (primary) hypertension ICD -10: I10 [...] Visit Reason For Visit Effective Dates Notes hypertension 01/22/2019 hypertension 10/30/2018 eye erythema 06/28/2018 [...] Result Date Tsh Ord6 TSH (3rd IS) 1.49 uIU/mL 01/21/2019 Free T4 Prv707 FREE T4 1.15 ng/dL 01/21/2019 Lipid Ord30 CHOL 231 mg/dL 10/24/2018 Lipid Ord30 HDL 56.0 mg/dl 10/24/2018 Lipid Ord30 TRIG 71 mg/dL 10/24/2018 Lipid Ord30 LDL 161 mg/dL 10/24/2018 Lipid Ord30 C/HDL 4.1 Ratio 10/24/2018 Comp Metabolic Ofi345 NA 141 mEq/L 10/24/2018 Comp Metabolic Wxe668 K 3.7 mEq/L 10/24/2018 Comp Metabolic Bjy630 CL 103 mEq/L 10/24/2018 Comp Metabolic Tch741 CO2 30.0 mEq/L 10/24/2018 Comp Metabolic Aip193 AN ION GAP 12 10/24/2018 Comp Metabolic Gxi410 GL UCOSE 98 mg/dL 10/24/2018 Comp Metabolic Uiy983 Cr eat 0.8 mg/dL 10/24/2018 Comp Metabolic Dxm829 eG FR 71 ml/min/1.73m2 10/24 Comp Metabolic Tdi801 BUN 12 mg/dL 10/24/2018 Comp Metabolic Wfj032 B/ C Ratio 14.5 Ratio 10/24/2018 Comp Metabolic Hvg752 CA LCIUM 9.2 mg/dL 10/24/2018 Comp Metabolic Exk250 AL K PHOS 76 U/L 10/24/2018 Comp Metabolic Lto621 T(SGOT) 12 U/L 10/24/2018 Comp Metabolic Nuk912 AL T(SGPT) 9 U/L 10/24/2018 Comp Metabolic Wbv413 BI LI T 0.5 mg/dL 10/24/2018 Comp Metabolic Ovq797 AL BUMIN 4.3 g/dL 10/24/2018 Comp Metabolic Gia510 TP RO 6.5 g/dL 10/24/2018 Comp Metabolic Hzk558 GL OB 2.2 g/dL 10/24/2018 Comp Metabolic Xeh806 A/ G Ratio 2.0 Ratio 10/24/2018 Comp Metabolic Ngq977 Os mo 281 mOsmo 10/24/2018 Free T4 Kaf974 FREE T4 0.76 ng/dL 10/24/2018 Cbc With [...] 30.5 pg 10/24/2018 Cbc With Differential Ord2 Baker% 8.4 % 10/24/2018 Cbc With Differential Ord2 [...] 1.71 K/ul 10/24/2018 Cbc With Differential Ord2 Baker ABS# 0.4 K/ul 10/24/2018 Cbc With Differential [...] 30.0 pg 04/04/2018 Cbc With Differential Ord2 Baker% 10.9 % 04/04/2018 Cbc With Differential Ord2 [...] 1.42 K/ul 04/04/2018 Cbc With Differential Ord2 Baker ABS# 0.6 K/ul 04/04/2018 Cbc With Differential Ord2 Eos ABS# 0.1 K/ul 04/04/2018 Cbc With Differential Ord2 Baso ABS# 0.0 K/ul 04/04/2018 Free T4 Bla348 FREE T4 1.25 ng/dL 04/04/2018 Tsh Ord6 [...] 30.2 pg 11/28/2017 Cbc With Differential Ord2 Baker% 10.1 % 11/28/2017 Cbc With Differential Ord2 [...] 1.33 K/ul 11/28/2017 Cbc With Differential Ord2 Baker ABS# 0.5 K/ul 11/28/2017 Cbc With Differential Ord2 Eos ABS# 0.1 K/ul 11/28/2017 Cbc With Differential Ord2 Baso ABS# 0.0 K/ul 11/28/2017 Free T4 Rxs159 FREE T4 1.43 ng/dL 11/28/2017 Lipid Ord30 CHOL 186 mg/dL 11/28/2017 Lipid Ord30 HDL 54.0 mg/dl 11/28/2017 Lipid Ord30 TRIG 59 mg/dL 11/28/2017 Lipid Ord30 LDL 120 mg/dL 11/28/2017 Lipid Ord30 C/HDL 3.4 Ratio 11/28/2017 Comp Metabolic Uka143 NA 141 mEq/L 11/28/2017 Comp Metabolic Tan773 K 4.0 mEq/L 11/28/2017 Comp Metabolic Dnq662 CL 105 mEq/L 11/28/2017 Comp Metabolic Rom600 CO2 29.0 mEq/L 11/28/2017 Comp Metabolic Vly590 AN ION GAP 11 11/28/2017 Comp Metabolic Djv319 GL UCOSE 91 mg/dL 11/28/2017 Comp Metabolic Xlt795 Cr eat 0.8 mg/dL 11/28/2017 Comp Metabolic Una182 eG FR 74 ml/min/1.73m2 11/28 Comp Metabolic Uvn993 BUN 15 mg/dL 11/28/2017 Comp Metabolic Kge013 B/ C Ratio 18.8 Ratio 11/28/2017 Comp Metabolic Xfu670 CA LCIUM 8.6 mg/dL 11/28/2017 Comp Metabolic Lvi584 AL K PHOS 76 U/L 11/28/2017 Comp Metabolic Twu330 T(SGOT) 10 U/L 11/28/2017 Comp Metabolic Kvv527 AL T(SGPT) 8 U/L 11/28/2017 Comp Metabolic Vpa775 BI LI T 0.5 mg/dL 11/28/2017 Comp Metabolic Pqu326 AL BUMIN 4.0 g/dL 11/28/2017 Comp Metabolic Pqs395 TP RO 6.1 g/dL 11/28/2017 Comp Metabolic Tdn802 GL OB 2.1 g/dL 11/28/2017 Comp Metabolic Efr521 A/ G Ratio 1.9 Ratio 11/28/2017 Comp Metabolic Dry535 Os mo 282 mOsmo 11/28/2017 Tsh Ord6 TSH (3rd IS) 3.31 uIU/mL 11/28/2017 Tsh Ord6 hTSH II 1.45 uIU/mL 03/27/2017 Free T4 Hnq611 FREE T4 1.23 ng/dL 03/27/2017 Comp Metabolic Pbt109 NA 140 mEq/L 09/28/2016 Comp Metabolic Lzw878 K 3.9 mEq/L 09/28/2016 Comp Metabolic Gcg844 CL 104 mEq/L 09/28/2016 Comp Metabolic Knt950 CO2 28.0 mEq/L 09/28/2016 Comp Metabolic Kxs895 AN ION GAP 12 09/28/2016 Comp Metabolic Zyi338 GL UCOSE 97 mg/dL 09/28/2016 Comp Metabolic Jtf916 Cr eat 0.8 mg/dL 09/28/2016 Comp Metabolic Elk863 eG FR 79 ml/min/1.73m2 09/28 Comp Metabolic Yey238 BUN 13 mg/dL 09/28/2016 Comp Metabolic Jdi217 B/ C Ratio 17.1 Ratio 09/28/2016 Comp Metabolic Txw079 CA LCIUM 8.9 mg/dL 09/28/2016 Comp Metabolic Cww841 AL K PHOS 100 U/L 09/28/2016 Comp Metabolic Mne884 T(SGOT) 12 U/L 09/28/2016 Comp Metabolic Uxg494 AL T(SGPT) 9 U/L 09/28/2016 Comp Metabolic Sdt526 BI LI T 0.4 mg/dL 09/28/2016 Comp Metabolic Yub441 AL BUMIN 4.1 g/dL 09/28/2016 Comp Metabolic Sdh950 TP RO 6.6 g/dL 09/28/2016 Comp Metabolic Alv688 GL OB 2.5 g/dL 09/28/2016 Comp Metabolic Uel437 A/ G Ratio 1.6 Ratio 09/28/2016 Comp Metabolic Pbj225 Os mo 279 mOsmo 09/28/2016 Lipid Ord30 [...] 28.8 pg 09/28/2016 Cbc With Differential Ord2 Baker% 7.2 % 09/28/2016 Cbc With Differential Ord2 [...] 1.41 K/ul 09/28/2016 Cbc With Differential Ord2 Baker ABS# 0.5 K/ul 09/28/2016 Cbc With Differential Ord2 Eos ABS# 0.2 K/ul 09/28/2016 Cbc With Differential Ord2 Baso ABS# 0.0 K/ul 09/28/2016 Free T4 Nfi325 FREE T4 1.43 ng/dL 09/28/2016 Tsh Ord6 hTSH II 0.52 uIU/mL 09/28/2016 Tsh Ord6 hTSH II 0.47 uIU/mL 06/16/2016 Comp Metabolic Zyt723 NA 139 mEq/L 06/16/2016 Comp Metabolic Lcl141 K 4.3 mEq/L 06/16/2016 Comp Metabolic Zmn353 CL 105 mEq/L 06/16/2016 Comp Metabolic Yro176 CO2 30.0 mEq/L 06/16/2016 Comp Metabolic Dhe246 AN ION GAP 8 06/16/2016 Comp Metabolic Phr221 GL UCOSE 90 mg/dL 06/16/2016 Comp Metabolic Qhl252 Cr eat 0.7 mg/dL 06/16/2016 Comp Metabolic Rtr196 eG FR 91 ml/min/1.73m2 06/16 Comp Metabolic Cqv296 BUN 15 mg/dL 06/16/2016 Comp Metabolic Gjt209 B/ C Ratio 22.4 Ratio 06/16/2016 Comp Metabolic Cpj091 CA LCIUM 8.8 mg/dL 06/16/2016 Comp Metabolic Upe727 AL K PHOS 79 U/L 06/16/2016 Comp Metabolic Hof896 T(SGOT) 13 U/L 06/16/2016 Comp Metabolic Kmt181 AL T(SGPT) 11 U/L 06/16/2016 Comp Metabolic Eoh185 BI LI T 0.5 mg/dL 06/16/2016 Comp Metabolic Jop878 AL BUMIN 3.9 g/dL 06/16/2016 Comp Metabolic Eou197 TP RO 6.1 g/dL 06/16/2016 Comp Metabolic Pxo109 GL OB 2.2 g/dL 06/16/2016 Comp Metabolic Woh615 A/ G Ratio 1.8 Ratio 06/16/2016 Comp Metabolic Mgz833 Os mo 278 mOsmo 06/16/2016 Lipid Ord30 [...] 28.9 pg 06/16/2016 Cbc With Differential Ord2 Baker% 8.1 % 06/16/2016 Cbc With Differential Ord2 [...] 1.70 K/ul 06/16/2016 Cbc With Differential Ord2 Baker ABS# 0.4 K/ul 06/16/2016 Cbc With Differential Ord2 Eos ABS# 0.2 K/ul 06/16/2016 Cbc With Differential Ord2 Baso ABS# 0.0 K/ul 06/16/2016 Free T4 Zxv147 FREE T4 1.42 ng/dL 06/16/2016 Free T4 Ifv334 FREE T4 1.34 ng/dL 03/04/2016 Tsh Ord6 hTSH II 0.56 uIU/mL 03/04/2016 Tsh Ord6 hTSH II 0.98 uIU/mL 01/27/2016 Free T4 Zyu576 FREE T4 1.19 ng/dL 01/27/2016 Free T4 Xwc667 FREE T4 1.69 ng/dL 11/23/2015 Tsh Ord6 hTSH II 0.08 uIU/mL 11/23/2015 Lipid Ord30 CHOL 185 mg/dL 08/21/2015 Lipid Ord30 HDL 50.0 mg/dl 08/21/2015 Lipid Ord30 TRIG 88 mg/dL 08/21/2015 Lipid Ord30 LDL 117 mg/dL 08/21/2015 Lipid Ord30 C/HDL 3.7 Ratio 08/21/2015 Comp Metabolic Grv382 NA 139 mEq/L 08/21/2015 Comp Metabolic Tbf084 K 4.3 mEq/L 08/21/2015 Comp Metabolic Wsd625 CL 102 mEq/L 08/21/2015 Comp Metabolic She377 CO2 27.0 mEq/L 08/21/2015 Comp Metabolic Qxn305 AN ION GAP 14 08/21/2015 Comp Metabolic Qvb826 GL UCOSE 89 mg/dL 08/21/2015 Comp Metabolic Lbw484 Cr eat 0.7 mg/dL 08/21/2015 Comp Metabolic Okg371 eG FR 85 ml/min/1.73m2 08/21 Comp Metabolic Qmr335 BUN 14 mg/dL 08/21/2015 Comp Metabolic Gix757 B/ C Ratio 19.7 Ratio 08/21/2015 Comp Metabolic Uyk920 CA LCIUM 9.5 mg/dL 08/21/2015 Comp Metabolic Joo882 AL K PHOS 123 U/L 08/21/2015 Comp Metabolic Fay976 T(SGOT) 13 U/L 08/21/2015 Comp Metabolic Vek828 AL T(SGPT) 10 U/L 08/21/2015 Comp Metabolic Fzs514 BI LI T 0.4 mg/dL 08/21/2015 Comp Metabolic Qab370 AL BUMIN 4.1 g/dL 08/21/2015 Comp Metabolic Rlv348 TP RO 6.8 g/dL 08/21/2015 Comp Metabolic Dgi170 GL OB 2.7 g/dL 08/21/2015 Comp Metabolic Qpc764 A/ G Ratio 1.5 Ratio 08/21/2015 Comp Metabolic Rnh127 Os mo 277 mOsmo 08/21/2015 Free T4 Cik940 FREE T4 1.78 ng/dL 08/21/2015 Tsh Ord6 [...] Ord2 RDW 13.9 % 08/21/2015 Quick Strep Fov9225 Quic k Strep Negative 07/08/2015 Tsh Ord6 hTSH II 0.04 uIU/mL 05/20/2015 Free T4 Jvi281 FREE T4 1.50 ng/dL 05/20/2015 Review of Systems System Result Effective Dates Constitutional No recent illness 01/22/2019 Constitutional No [...] distress 09/12/2017 None Full Exam - General 1995 Constitutional general appearance Overall: well nourished 09/12/2017 [...] Procedure Codes Date DESTRUCT PREMALG LESION CPT-4: 13831 01/19/2018 URINALYSIS NONAUTO W /O SCOPE CPT-4: 65606 09/12/2017 TRIAMCINOLONE ACET I [place] NOS CPT-4: J3301 06/14/2017 THER/PROPH/DIAG INJ SC/IM CPT-4: 81185 06/14/2017 PRESCRIP TRANSMIT A ERX SY CPT-4: G8553 06/14/2017 TRIAMCINOLONE ACET I [place] NOS CPT-4: J3301 03/27/2017 THER/PROPH/DIAG INJ SC/IM CPT-4: 50247 12/07/2016 TRIAMCINOLONE ACET I [place] NOS CPT-4: J3301 12/07/2016 THER/PROPH/DIAG INJ SC/IM CPT-4: 51677 11/28/2016 TRIAMCINOLONE ACET I [place] NOS CPT-4: J3301 11/28/2016 Vital Signs Date Vital 01/22/2019 Blood Pressure 1: 132/66 Code: 8480-6 BMI: 37.1 Code: 41413-8 Heart Rate 1: 73 bpm Height: 5'6" SpO2: 96% Weight: 230 lbs 11/21/2018 Blood Pressure 1: 120/64 Code: 8480-6 Heart Rate 1: 64 bpm 10/30/2018 Blood Pressure 1: 144/70 Code: 8480-6 BMI: 37.0 Code: 08481-2 Heart Rate 1: 76 bpm Height: 5'6" SpO2: 96% Weight: 229 lbs 06/28/2018 Blood Pressure 1: 110/66 Code: 8480-6 BMI: 37.1 Code: 11298-6 Heart Rate 1: 73 bpm Height: 5'6" SpO2: 98% Weight: 230 lbs 04/04/2018 Blood Pressure 1: 128/76 Code: 8480-6 BMI: 37.9 Code: 87728-2 Heart Rate 1: 86 bpm Height: 5'6" SpO2: 98% Weight: 235 lbs 01/19/2018 Blood Pressure 1: 122/68 Code: 8480-6 Heart Rate 1: 78 bpm Height: 5'6" SpO2: 97% Weight: 01/05/2018 Blood Pressure 1: 138/78 Code: 8480-6 BMI: 38.4 Code: 98135-2 Heart Rate 1: 73 bpm Height: 5'6" SpO2: 95% Weight: 238 lbs 11/29/2017 Blood Pressure 1: 138/80 Code: 8480-6 BMI: 38.7 Code: 65885-5 Heart Rate 1: 71 bpm Height: 5'6" SpO2: 97% Weight: 240 lbs 10/25/2017 Blood Pressure 1: 136/72 Code: 8480-6 BMI: 38.7 Code: 23651-2 Heart Rate 1: 92 bpm Height: 5'6" SpO2: 98% Weight: 240 lbs 09/12/2017 Blood Pressure 1: 132/68 Code: 8480-6 BMI: 39.7 Code: 94231-1 Heart Rate 1: 76 bpm Height: 5'6" SpO2: 98% Weight: 246 lbs 06/14/2017 Blood Pressure 1: 130/80 Code: 8480-6 BMI: 39.4 Code: 91320-1 Heart Rate 1: 73 bpm Height: 5'6" SpO2: 95% Temperature: 36.9 (C ) / 98.5 (F) Weight: 244 lbs 05/10/2017 Blood Pressure 1: 128/68 Code: 8480-6 BMI: 38.7 Code: 30012-3 Heart Rate 1: 69 bpm Height: 5'6" SpO2: 97% Weight: 240 lbs 04/19/2017 Blood Pressure 1: 138/74 Code: 8480-6 BMI: 38.7 Code: 53306-1 Heart Rate 1: 73 bpm Height: 5'6" SpO2: 96% Weight: 240 lbs 03/27/2017 Blood Pressure 1: 142/84 Code: 8480-6 BMI: 38.7 Code: 12831-7 Heart Rate 1: 69 bpm Height: 5'6" SpO2: 97% Weight: 240 lbs 01/26/2017 Blood Pressure 1: 136/68 Code: 8480-6 Heart Rate 1: 64 bpm Height: 5'6" SpO2: 96% Weight: 12/07/2016 Blood Pressure 1: 130/72 Code: 8480-6 BMI: 39.7 Code: 38613-8 Heart Rate 1: 73 bpm Height: 5'6" SpO2: 93% Temperature: 36.8 (C ) / 98.3 (F) Weight: 246 lbs 11/28/2016 Blood Pressure 1: 138/60 Code: 8480-6 BMI: 39.7 Code: 09448-9 Heart Rate 1: 81 bpm Height: 5'6" SpO2: 97% Weight: 246 lbs 11/15/2016 Blood Pressure 1: 134/78 Code: 8480-6 BMI: 39.7 Code: 64161-7 Heart Rate 1: 75 bpm Height: 5'6" SpO2: 93% Temperature: 36.8 (C ) / 98.2 (F) Weight: 246 lbs 10/17/2016 Blood Pressure 1: 120/64 Code: 8480-6 BMI: 38.4 Code: 12230-9 Heart Rate 1: 69 bpm Height: 5'6" SpO2: 98% Temperature: 37.2 (C ) / 98.9 (F) Weight: 238 lbs 09/28/2016 Blood Pressure 1: 158/76 Code: 8480-6 BMI: 39.4 Code: 18696-3 Heart Rate 1: 71 bpm Height: 5'6" SpO2: 97% Weight: 244 lbs 06/29/2016 Blood Pressure 1: 124/60 Code: 8480-6 BMI: 38.7 Code: 32616-4 Heart Rate 1: 71 bpm Height: 5'6" SpO2: 98% Weight: 240 lbs 06/01/2016 Blood Pressure 1: 120/62 Code: 8480-6 BMI: 38.6 Code: 11329-6 Heart Rate 1: 76 bpm Height: 5'6" SpO2: 98% Weight: 239 lbs 05/11/2016 Blood Pressure 1: 140/80 Code: 8480-6 BMI: 38.1 Code: 76399-7 Heart Rate 1: 88 bpm Height: 5'6" SpO2: 97% Weight: 236 lbs 04/05/2016 Blood Pressure 1: 142/80 Code: 8480-6 BMI: 38.4 Code: 49983-3 Heart Rate 1: 96 bpm Height: 5'6" SpO2: 98% Weight: 238 lbs 04/01/2016 Blood Pressure 1: 136/88 Code: 8480-6 BMI: 39.2 Code: 28143-3 Heart Rate 1: 86 bpm Height: 5'6" SpO2: 96% Weight: 243 lbs 01/26/2016 Blood Pressure 1: 124/76 Code: 8480-6 BMI: 39.2 Code: 13507-7 Heart Rate 1: 76 bpm Height: 5'6" SpO2: 97% Weight: 243 lbs 12/21/2015 Blood Pressure 1: 120/64 Code: 8480-6 BMI: 37.0 Code: 65110-2 Heart Rate 1: 98 bpm Height: 5'6" SpO2: 97% Weight: 229 lbs 10/12/2015 Blood Pressure 1: 150/64 Code: 8480-6 BMI: 37.4 Code: 14287-6 Heart Rate 1: 70 bpm Height: 5'6" SpO2: 94% Weight: 232 lbs 08/24/2015 Blood Pressure 1: 128/74 Code: 8480-6 BMI: 36.8 Code: 92363-4 Heart Rate 1: 88 bpm Height: 5'6" SpO2: 94% Temperature: 36.8 (C ) / 98.3 (F) Weight: 228 lbs 06/01/2015 Blood Pressure 1: 134/68 Code: 8480-6 BMI: 36.0 Code: 96407-4 Heart Rate 1: 70 bpm Height: 5'6" SpO2: 98% Weight: 223 lbs 05/21/2015 Blood Pressure 1: 126/72 Code: 8480-6 BMI: 35.2 Code: 64729-9 Heart Rate 1: 63 bpm Height: 5'6" SpO2: 95% Weight: 218 lbs 5 oz 03/26/2015 Blood Pressure 1: 140/62 Code: 8480-6 BMI: 35.3 Code: 99495-9 Heart Rate 1: 68 bpm Height: 5'6" Weight: 219 lbs 03/11/2015 Blood Pressure 1: 130/80 Code: 8480-6 BMI: 34.9 Code: 61255-2 Heart Rate 1: 76 bpm Height: 5'6" Temperature: 37.1 (C ) / 98.7 (F) Weight: 216 lbs 12/11/2014 Blood Pressure 1: 134/62 Code: 8480-6 BMI: 34.2 Code: 94746-0 Heart Rate 1: 72 bpm Height: 5'6" Weight: 212 lbs 09/18/2014 Blood Pressure 1: 148/80 Code: 8480-6 BMI: 34.7 Code: 57098-2 Heart Rate 1: 68 bpm Height: 5'6" Weight: 215 lbs 07/31/2014 Blood Pressure 1: 124/72 Code: 8480-6 BMI: 36.2 Code: 05941-2 Heart Rate 1: 68 bpm Height: 5'6" Weight: 224 lbs Functional Status No Functional Status data History of Present Illness Symptom Name Status Resu lt Effective Date Notes Quality chronic 01/22/2019 None Quality primary hypert [...] Severity mi ld 09/28/2016 None 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 09/28/2016 None hypothyroid Onset and Resolution [...] Severity mi ld 06/01/2016 None 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 06/01/2016 None hypothyroid Onset and Resolution [...] and Resolution resolved 04/05/2016 None 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 P ATIENT, LEVEL IV Diagnosis: Mild intermittent asthma, uncomplicated[ICD10: J45.20] Diagnosis: Hypothyroidism, unspecified[ICD10: E03.9] Diagnosis: Low back pain[ICD10: M54.5] Lynn Finn MD, [facility] CPT- 4: 80091 01/22/2019 ([id number]) Edgar s no charge Diagnosis: Essential (primary) hypertension[ICD10: I10] Damari Finn MD, [facility] CPT-4: 93266 11/21/2018 ([id number]) 34866 EST. P ATIENT, LEVEL IV Diagnosis: Essential (primary) hypertension[ICD10: I10] Diagnosis: Hypothyroidism, unspecified[ICD10: E03.9] Diagnosis: Low back pain[ICD10: M54.5] Lynn Finn MD, [facility] CPT- 4: 11745 10/30/2018 ([id number]) 82327 EST. [facility] Diagnosis: Acute recurrent maxillary sinusitis[ICD10: J01.01] Diagnosis: Other mucopurulent conjunctivitis, left eye[ICD10: H10.022] Diagnosis: Other allergic rhinitis[ICD10: J30.89] Lynn Finn MD, [facility] CPT-4: 96917 06/28/2018 [id number] EST. PATIENT, LEVEL IV Diagnosis: Essential (primary) hypertension[ICD10: I10] Diagnosis: Other specified hypothyroidism[ICD10: E03.8] Diagnosis: Other specified anemias[ICD10: D64.89] Diagnosis: Localized edema[ICD10: R60.0] Mishel Finn MD, [facility] CPT-4: 48699 04/04/2018 ([id number]) 17284 EST. [facility] [place] Diagnosis: Mild persistent asthma, uncomplicated[ICD10: J45.30] Diagnosis: Actinic keratosis[ICD10: L57.0] Lynn Finn MD, [facility] CPT- 4: 90850 01/05/2018 ([id number]) Miscellaneou s no charge Diagnosis: Essential (primary) hypertension[ICD10: I10] Damari Finn MD, [facility] CPT-4: 17688 12/12/2017 83555 EST. PATIENT, LEVEL III Diagnosis: Essential (primary) hypertension[ICD10: I10] Diagnosis: Atrophy of thyroid (acquired)[ICD10: E03.4] Diagnosis: Low back pain[ICD10: M54.5] Mishel Finn MD, [facility] CPT-4: 95114 11/29/2017 25837 EST. PATIENT, LEVEL III Diagnosis: Pain in left hip[ICD10: M25.552] Mishel Finn MD, [facility] CPT-4: 16170 10/25/2017 52351 EST. PATIENT, LEVEL IV Diagnosis: Localized edema[ICD10: R60.0] Mishel Finn MD, [facility] CPT-4: 54959 09/12/2017 [id number] EST. PATIENT, LEVEL IV Diagnosis: Mild persistent asthma with (acute) exacerbation[ICD10: J45.31] Mishel Finn MD, [facility] CPT-4: 36552 06/14/2017 49359 EST. PATIENT, LEVEL III Diagnosis: Localized edema[ICD10: R60.0] Diagnosis: Mild persistent asthma, uncomplicated[ICD10: J45.30] Mishel Finn MD, [facility] CPT-4: 45847 05/10/2017 41662 EST. PATIENT, LEVEL III Diagnosis: Mild persistent asthma with (acute) exacerbation[ICD10: J45.31] Mishel Finn MD, [facility] CPT-4: 18851 04/19/2017 ([id number]) 49837 EST. P ATIENT, LEVEL IV Diagnosis: Contusion of left wrist, initial encounter[ICD10: S60.212A] Diagnosis: Hypothyroidism, unspecified[ICD10: E03.9] Diagnosis: Mild persistent asthma with (acute) exacerbation[ICD10: J45.31] Diagnosis: Low back pain[ICD10: M54.5] Lynn Finn MD, [facility] CPT- 4: 44547 03/27/2017 ([id number]) 04333 EST. P ATIENT, LEVEL IV Diagnosis: Essential (primary) hypertension[ICD10: I10] Diagnosis: Atrophy of thyroid (acquired)[ICD10: E03.4] Diagnosis: Low back pain[ICD10: M54.5] Damari Finn MD, [facility] CPT-4: 80828 01/26/2017 71423 EST. PATIENT, LEVEL III Diagnosis: Other allergic rhinitis[ICD10: J30.89] Diagnosis: Mild persistent asthma with (acute) exacerbation[ICD10: J45.31] Mishel Finn MD, [facility] CPT-4: 73120 12/07/2016 90074 EST. PATIENT, LEVEL III Diagnosis: Mild persistent asthma with (acute) exacerbation[ICD10: J45.31] Mishel Finn MD, [facility] CPT-4: 47635 11/28/2016 74413 EST. PATIENT, LEVEL III Diagnosis: Mild persistent asthma with (acute) exacerbation[ICD10: J45.31] Diagnosis: Acute bronchitis due to other specified organisms[ICD10: J20.8] Mishel Finn MD, [facility] CPT-4: 29351 11/15/2016 28960 EST. PATIENT, LEVEL IV Diagnosis: Other acute sinusitis[ICD10: J01.80] Diagnosis: Other allergic rhinitis[ICD10: J30.89] Diagnosis: Mild persistent asthma with (acute) exacerbation[ICD10: J45.31] Mishel Finn MD, [facility] CPT-4: 95301 10/17/2016 ([id number]) 98336 EST. P ATIENT, LEVEL IV Diagnosis: Essential (primary) hypertension[ICD10: I10] Diagnosis: Low back pain[ICD10: M54.5] Damari Finn MD, [facility] CPT-4: 28696 09/28/2016 62138 EST. PATIENT, LEVEL III Diagnosis: Tinea barbae and tinea capitis[ICD10: B35.0] Diagnosis: Other specified hypothyroidism[ICD10: E03.8] Mishel Finn MD, [facility] CPT-4: 43171 06/29/2016 ([id number]) 49520 EST. P ATIENT, LEVEL IV Diagnosis: Essential (primary) hypertension[ICD10: I10] Diagnosis: Atrophy of thyroid (acquired)[ICD10: E03.4] Diagnosis: Rash and other nonspecific skin eruption[ICD10: R21] Damari Finn MD, [facility] CPT-4: 18990 06/01/2016 ([id number]) 85429 EST. P ATIENT, LEVEL III Diagnosis: Cellulitis of groin[ICD10: L03.314] Damari Finn MD, [facility] CPT- 4: 90665 05/11/2016 ([id number]) 69113 EST. P ATIENT, LEVEL IV Diagnosis: Hypothyroidism, unspecified[ICD10: E03.9] Diagnosis: Candidiasis of vulva and vagina[ICD10: B37.3] Diagnosis: Essential (primary) hypertension[ICD10: I10] Diagnosis: Low back pain[ICD10: M54.5] Lynn Finn MD, [facility] CPT- 4: 19041 04/05/2016 57566 EST. PATIENT, LEVEL III Diagnosis: Other acute sinusitis[ICD10: J01.80] Diagnosis: Rash and other nonspecific skin eruption[ICD10: R21] Mishel Finn MD, [facility] CPT-4: 05459 04/01/2016 ([id number]) 49226 EST. P ATIENT, LEVEL IV Diagnosis: Essential (primary) hypertension[ICD10: I10] Diagnosis: Hypothyroidism, unspecified[ICD10: E03.9] Diagnosis: Low back pain[ICD10: M54.5] Diagnosis: Other obesity due to excess calories[ICD10: E66.09] Lynn Finn MD, [facility] CPT-4: 36926 01/26/2016 58816 EST. PATIENT, LEVEL IV Diagnosis: Essential (primary) hypertension[ICD10: I10] Diagnosis: Cutaneous abscess of face[ICD10: L02.01] Mishel Finn MD, [facility] CPT-4: 09025 12/21/2015 ([id number]) 48349 EST. P ATIENT, LEVEL III Diagnosis: Cutaneous abscess of groin[ICD10: L02.214] Diagnosis: Hypothyroidism, unspecified[ICD10: E03.9] Lynn Finn MD, [facility] CPT-4: 18207 10/12/2015 ([id number]) 73607 EST. P ATIENT, LEVEL III Diagnosis: Essential (primary) hypertension[ICD10: I10] Diagnosis: Hypothyroidism, unspecified[ICD10: E03.9] Diagnosis: Allergic rhinitis, unspecified[ICD10: J30.9] Lynn Finn MD, [facility] CPT-4: 78761 08/24/2015 ([id number]) 79057 EST. P ATIENT, LEVEL III Diagnosis: Skin infection[ICD9: 686.9] Damari Finn MD, [facility] CPT-4: 14560 06/01/2015 ([id number]) 95196 EST. P ATIENT, LEVEL III Diagnosis: Hypothyroidism[ICD9: 244.9] Diagnosis: ESSENTIAL HYPERTENSION[ICD9: 401.9] Damari Finn MD, [facility] CPT- 4: 61790 05/21/2015 ([id number]) 56892 EST. P ATIENT, LEVEL III Diagnosis: Hypothyroidism[ICD9: 244.9] Diagnosis: Fingernail abnormalities[ICD9: 703.8] Lynn iFnn MD, [facility] CPT-4: 94782 03/26/2015 ([id number]) 06198 EST. P ATIENT, LEVEL II Diagnosis: Hypothyroidism[ICD9: 244.9] Maritza Finn MD, [facility] CPT-4: 03490 03/11/2015 ([id number]) 78333 EST. P ATIENT, LEVEL IV Diagnosis: ESSENTIAL HYPERTENSION[ICD9: 401.9] Diagnosis: Low back pain[ICD9: 724.2] Diagnosis: Hypothyroidism[ICD9: 244.9] [facility] CPT-4: 43015 12/11/2014 ([id number]) 13605 EST. P ATIENT, LEVEL IV Diagnosis: Hidradenitis suppurativa[ICD9: 705.83] Diagnosis: ESSENTIAL HYPERTENSION[ICD9: 401.9] Diagnosis: Low back pain[ICD9: 724.2] Diagnosis: Lumbar spinal stenosis[ICD9: 724.02] Diagnosis: HYPOTHYROIDISM[ICD9: 244.9] Damari Finn MD, [facility] CPT-4: 12868 09/18/2014 Office outpatient ne w 30 minutes Diagnosis: ESSENTIAL HYPERTENSION[ICD9: 401.9] Diagnosis: Hypothyroidism[ICD9: 244.9] Diagnosis: Low back pain[ICD9: 724.2] Lynn Finn MD, [facility] CPT- 4: 43760 07/31/2014 Plan of Care Planned Activity Notes C odes Status Date Visit Plan: Asthma - chronic proble m [...] medical practice. 01/22/2019 Appointment: Lynn Arenas WPtel: [phone] (30 min) Complex 01/22/2019 Patient Education: [...] as indicated 10/30/2018 Appointment: Lynn Arenas WPtel: [phone] (30 min) Complex 10/30/2018 Patient Education: Patient Medication Summary Completed 10/30/2018 Patient Education: Hypertension Completed 10/30/2018 Patient Education: Back Pain Completed 10/30/2018 Appointment: Lynn Arenas WPtel: [address] [place], [place] [phone] (30 min) Complex 10/26/2018 Patient Education: Patient Medication Summary Completed 10/23/2018 Appointment: Lynn Arenas WPtel: [address] [place], [place] [phone] (15 min) Moderate 10/19/2018 Appointment: Damari Finn WPtel: [address] [place], [place] [address] (15 min) Moderate 09/19/2018 Visit Plan: Sinusitis [...] times daily. 06/28/2018 Appointment: Lynn Arenas WPtel: [address] [place], [place] [phone] (30 min) [facility] 06/28/2018 Patient Education: Patient Medication Summary Completed [...] to monitor. 04/04/2018 Appointment: Mishel Balderrama WPtel: [facility] [address] (15 min) Moderate 04/04/2018 Patient Education: Patient Medication Summary Completed 04/04/2018 Visit Plan: Wound Instructions - Pt was instructed to keep the wound clean, wash with antibacterial soap, use triple antibiotic ointment, call if redness, pustular drainage, or any other acute concerns. 01/19/2018 Appointment: Lynn Arenas WPtel: [phone] (30 min) Complex 01/19/2018 Patient Education: [...] concerns. 01/05/2018 Appointment: Lynn Arenas WPtel: [phone] [phone] (30 min) Complex 01/05/2018 Patient Education: Patient Medication Summary Completed 01/05/2018 Appointment: Nurse Visit 12/12/2017 Patient Education: Patient Medication Summary Completed 12/12/2017 Visit Plan: Hypertension - well cat faye - continue with current medications, continue [...] improve. 11/29/2017 [phone] ([facility] 11/29/2017 Patient Education: Patient [...] 10/25/2017 App[facility]ment[phone] ([facility] min) Complex 10/25/2017 Patient Education: [...] 09/12/2017 Appointment: [phone] [place] (30 min) Complex 09/12/2017 Patient Education: Patient Medication Summary Completed 09/12/2017 Appointment: Lynn Arenas WPtel: [phone] [phone] [place] (30 min) Complex 06/27/2017 Visit [...] changes. 06/14/2017 Appointment: [phone] [facility] [place] (15 min) Moderate 06/14/2017 Patient [...] monitor for acute changes 05/10/2017 Appointment: [facility]al[phone] [facility] [place] (15 min) Moderate 05/10/2017 Patient [...] acute changes. 04/19/2017 Appointment: [facility] Balderr[facility]el[phone] [facility] (15 min) Moderate 04/19/2017 Patient Education: [...] on previous levels of control. Low back lxmv-ifoiswb-ymxrjw tramadol for prn use 03/27/2017 Appointment: [facility]el[phone] [place] (30 min) Complex 03/27/2017 Patient Education: Patient Medication Summary Completed 03/27/2017 Visit Plan: Hypertension - rashel faye - [...] improve. 01/26/2017 Appointment: [phone] ([facility] min) Moderate 01/26/2017 Patient Education: Patient [...] concerns. 12/07/2016 Appointment: [facility]el[phone] [facility] (15 min) Moderate 12/07/2016 Patient Education: [...] monitor for acute changes. 11/28/2016 Appointment: Mishel Balderramal: [facility] (15 min) Moderate 11/28/2016 Patient Education: Patient Medication Summary Completed 11/28/2016 Appointment: [facility] Balderr[phone] [facility] (15 min) Moderate 11/24/2016 Visit Plan: [...] monitor for acute changes. 11/15/2016 Appointment: Mishel Balderramatel: [phone] [facility] (30 min) Complex 11/15/2016 Patient Education: [...] acute changes. 10/17/2016 Appointment: [facility] Balderrama [facility]Ptel[facility] [phone] ([facility] min) Complex 10/17/2016 Patient Education: [...] prn tylenol 09/28/2016 Appointment: Damari Finn WPtel: [phone] [facility] (15 min) Moderate 09/28/2016 Patient Education: Patient [...] control. 06/29/2016 Appointment: Lynn Arenas WPtel: [phone] [phone] (15 min) Moderate 06/29/2016 Patient Education: [...] for fluconazole 06/01/2016 Appointment: Dam[facility] Finn [facility]Ptel[phone] [place] (15 min) Moderate 06/01/2016 Patient Education: Patient Medication Summary Completed 06/01/2016 Patient Education: Obesity Completed 06/01/2016 Visit Plan: Cellulitis - continue w ith oral antibiotics as previously directed, return to clinic as previously directed, call for acute change in symptoms, worsening redness, warmth, discharge. 05/11/2016 Appointment: Damari Finn [facility]Ptel[phone] (15 min) Moderate 05/11/2016 Patient Education: Patient [...] concerns. 04/01/2016 Appointment: Lynn Arenas WPtel: [phone] (30 min) Complex 04/01/2016 Patient Education: Patient Medication Summary Completed 04/01/2016 Patient Education: Obesity Completed 04/01/2016 Appointment: Lynn Arenas WPtel: [phone] (30 min) Complex 03/29/2016 Visit Plan: Hypertension [...] levels of control. Low back pain-refill tramadol Wixvk-rjyepsyyxa-seggfnld resolved 01/26/2016 Appointment: Lynn Arenas WPtel: [phone] [phone] (30 min) Complex 01/26/2016 Patient Education: Patient Medication Summary Completed 01/26/2016 Patient Education: Obesity Completed 01/26/2016 Care Plan: BMI Above normal followup RADHA F-MGMT EDUC & TRAIN 1 PT Pending 01/26/2016 Care Plan: Referral Order SNOMED-CT : [id number] Pending 01/07/2016 Appointment: Lynn Arenas WPtel: [phone] [phone] (15 min) Moderate 12/24/2015 Visit Plan: Hypertension [...] nor improving. 06/01/2015 Appointment: Damari Finn WPtel: [facility] (15 min) Moderate 06/01/2015 Patient Education: Patient [...] tramadol 12/11/2014 Appointment: Damari Finn WPtel: [facility] follow up 12/11/2014 Patient Education: Patient Medication Summary Completed 12/11/2014 Patient Education: Hypertension Completed 12/11/2014 Appointment: Damari Finn WPtel: [facility] [address] follow up 11/27/2014 Visit Plan: Hidradenitis [...] to get her back MRI done at [facility] in [place] as that is where her specialist will be once we get her an appt with one of the local Neurosurgeons. 09/18/2014 Appointment: Damari Finn [facility]Ptel: [phone] [facility] Follow up 09/18/2014 Patient Education: Patient Medication [...] scheduled 07/31/2014 Appointment: [facility]el[phone] [place] New Patient 07/31/2014 Patient Education: [...] . 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 Low back tfas-bvvyffz-yovtiw tramadol for prn use claritin or zyrtec [...] . 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 . Skin infection - r ecommended treatment with oral antibiotic and topical antibiotic. Pt to call if nor improving. . Cellulitis - oleg nue with oral antibiotics as previously directed, return to clinic as previously directed, call for acute change in symptoms, worsening redness, warmth, discharge. Declined Procedure: (03401) FLU VAC NO PRSV 4 JUSTYNA 3 YRS+; Declined Reason: refused Physical therapy at [facility] . Hypertension - well controlled [...] levels of control. Low back pain-refill tramadol Wtitd-jtgfnovaeb-umuuvegz resolved . Hypertension - wel l controlled [...] to get her back MRI done at [facility] in [place] as that is where her specialist will [...]
--- OUTSIDE RECORDS SUMMARY | 2020-02-20 18:56 | XMS REPORT | CCD ---
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 Unknown Has never used illegal drugs 014 Allergies, Adverse Reactions, Alerts Substance Reaction Codes Entered Date Inactivated Date Status * NO KNOWN FOOD BEVERLY RGIES Unknown 07/31/2014 No Inactive Date Active bactrim hives, rash RxNorm: 074679 04/05/2016 No Inactive Date Active Past Medical [...] Fill Instructions tramadol 50 mg tablet RxNorm: 467456 1 Tablet(s) PO Q4 PRN as needed for pain 02/20/2019 03/31/2019 Ac tive lorazepam 1 mg tablet RxNorm: 460268 Tablet(s) TAKE TWO TABLETS BY MOUTH AT B EDTIME NEEDED FOR INSOMNIA AND ONE TABLET DAILY NEEDED ANXIETY 01/04/2019 03/03/2019 Active tramadol 50 mg tablet RxNorm: 441449 1 Tablet(s) PO Q4 PRN as needed for pain 12/05/2018 01/12/2019 In active Keflex 500 mg capsule RxNorm: 079481 1 Capsule(s) PO TID 12/05/2018 12/11/2018 Inactive ciprofloxacin 0.3 % eye drops RxNorm: 588303 INSTILL TWO DROPS TO THE AFFECTED EYE(S) THREE TIMES A DAY 11/23/2018 12/25/2018 Inactive levothyroxine 137 mc g tablet RxNorm: 302056 1 Tablet(s) PO daily TAKE ONE TABLET BY MOUTH DAILY ON AN EMPTY STOMACH 10/30/2018 01/22/2020 Active ProAir HFA 90 mcg/ac tuation aerosol inhaler RxNorm: 9105594 1-2 Puff(s) INH Q4 P RN INHALE 1 TO 2 PUFFS FOUR TIMES A DAY NEEDED FOR ASTHMA 10/30/2018 01/27/2019 Inactive tramadol 50 mg tablet RxNorm: 683280 1 Tablet(s) PO Q4 PRN as needed for pain 10/29/2018 12/04/2018 In active levothyroxine 125 mc g tablet RxNorm: 623306 1 Tablet(s) PO daily TAKE ONE TABLET BY MOUTH DAILY ON AN EMPTY STOMACH 09/06/2018 10/29/2018 Inactive lorazepam 1 mg tablet RxNorm: 119852 Tablet(s) TAKE TWO TABLETS BY MOUTH AT B EDTIME NEEDED FOR INSOMNIA AND ONE TABLET DAILY NEEDED ANXIETY 09/06/2018 11/02/2018 Inactive tramadol 50 mg tablet RxNorm: 787541 1 Tablet(s) PO Q4 PRN as needed for pain 09/06/2018 10/15/2018 In active tramadol 50 mg tablet RxNorm: 073600 1 Tablet(s) PO Q4 PRN as needed for pain 07/06/2018 08/14/2018 In active ciprofloxacin 0.3 % eye drops RxNorm: 626241 2 Drop(s) ophthalmic (eye) TID 06/28/2018 07/07/2018 In active lorazepam 1 mg tablet RxNorm: 248838 Tablet(s) TAKE TWO TABLETS BY MOUTH AT B EDTIME NEEDED FOR INSOMNIA AND ONE TABLET DAILY NEEDED ANXIETY 06/28/2018 08/26/2018 Inactive doxycycline hyclate 100 mg tablet RxNorm: 9964147 1 Tablet(s) PO BID 06/28/2018 07/04/2018 Inactive tramadol 50 mg tablet RxNorm: 142945 1 Tablet(s) PO Q4 PRN as needed for pain 06/13/2018 07/05/2018 In active lorazepam 1 mg tablet RxNorm: 165796 Tablet(s) TAKE TWO TABLETS BY MOUTH AT B EDTIME NEEDED FOR INSOMNIA AND ONE TABLET DAILY NEEDED ANXIETY 05/23/2018 06/27/2018 Inactive tramadol 50 mg tablet RxNorm: 676188 1 Tablet(s) PO Q4 PRN as needed for pain 05/23/2018 06/12/2018 In active levothyroxine 125 mc g tablet RxNorm: 929395 Tablet(s) TAKE ONE TA BLET BY MOUTH DAILY ON AN EMPTY STOMACH 05/23/2018 09/05/2018 Inactive tramadol 50 mg tablet RxNorm: 648326 1 Tablet(s) PO Q4 PRN as needed for pain 05/17/2018 05/22/2018 In active levothyroxine 125 mc g tablet RxNorm: 604157 TAKE ONE TABLET BY MO UTH DAILY 05/15/2018 06/27/2018 In active levothyroxine 125 mc g tablet RxNorm: 711560 TAKE ONE TABLET BY MO UTH DAILY 05/15/2018 06/27/2018 In active tramadol 50 mg tablet RxNorm: 166012 1 Tablet(s) PO Q4 PRN as needed for pain 04/30/2018 05/16/2018 In active Advair Diskus 100 mc g-50 mcg/dose powder for inhalation RxNorm: 9613715 1 Puff(s) INH BID 04/06/2018 01/21/2019 Inactive Symbicort 80 mcg-4.5 mcg/actuation HFA aerosol inhaler RxNorm: 0897613 2 Puff(s) INH BID 04/06/2018 01/21/2019 Inactive Advair Diskus 250 mc g-50 mcg/dose powder for inhalation RxNorm: 3633996 1 Puff(s) INH BID 04/05/2018 09/01/2018 Inactive Zyrtec 10 mg tablet RxNorm: 0917636 1 Tablet(s) PO daily x1 week then PRN 04/05/2018 08/02/2018 In active lisinopril 20 mg-hyd rochlorothiazide 25 mg tablet RxNorm: 475635 Tablet(s) TAKE ONE TABLET BY MOUTH DAILY 04/05/2018 10/29/2018 Inactive Zyrtec 10 mg tablet RxNorm: 7297264 1 Tablet(s) PO daily 04/04/2018 05/03/2018 Inactive tramadol 50 mg tablet RxNorm: 325340 1 Tablet(s) PO Q4 PRN as needed for pain 03/13/2018 04/21/2018 In active lorazepam 1 mg tablet RxNorm: 013269 Tablet(s) TAKE TWO TABLETS BY MOUTH AT B EDTIME NEEDED FOR INSOMNIA AND ONE TABLET DAILY NEEDED ANXIETY 03/02/2018 04/30/2018 Inactive levothyroxine 125 mc g tablet RxNorm: 037108 1 Tablet(s) PO daily 02/06/2018 05/06/2018 Inactive levothyroxine 125 mc g tablet RxNorm: 716443 TAKE ONE TABLET BY MO UTH DAILY ON AN EMPTY STOMACH 02/06/2018 05/22/2018 Inactive tramadol 50 mg tablet RxNorm: 345770 1 Tablet(s) PO Q4 PRN as needed for pain 01/26/2018 03/06/2018 In active lorazepam 1 mg tablet RxNorm: 444414 Tablet(s) TAKE TWO TABLETS BY MOUTH AT B EDTIME NEEDED FOR INSOMNIA AND ONE TABLET DAILY NEEDED ANXIETY 01/23/2018 06/27/2018 Inactive Symbicort 80 mcg-4.5 mcg/actuation HFA aerosol inhaler RxNorm: 4137975 INH 01/05/2018 06/27/2018 In active tramadol 50 mg tablet RxNorm: 556039 1 Tablet(s) PO Q4 PRN as needed for pain 01/04/2018 01/25/2018 In active Advair Diskus 250 mc g-50 mcg/dose powder for inhalation RxNorm: 2979876 1 Puff(s) INH BID 11/29/2017 03/28/2018 Inactive hydrochlorothiazide 12.5 mg tablet RxNorm: 359382 1 Tablet(s) PO daily 11/29/2017 12/28/2017 In active tramadol 50 mg tablet RxNorm: 608814 1 Tablet(s) PO Q4 PRN as needed for pain 11/23/2017 01/01/2018 In active tramadol 50 mg tablet RxNorm: 027123 1 Tablet(s) PO Q4 PRN as needed for pain 10/06/2017 11/14/2017 In active lorazepam 1 mg tablet RxNorm: 984256 Tablet(s) TAKE TWO TABLETS BY MOUTH AT B EDTIME NEEDED FOR INSOMNIA AND ONE TABLET DAILY NEEDED ANXIETY 09/12/2017 06/27/2018 Inactive tramadol 50 mg tablet RxNorm: 269399 1 Tablet(s) PO Q4 PRN as needed for pain 09/12/2017 10/05/2017 In active tramadol 50 mg tablet RxNorm: 750102 1 Tablet(s) PO Q4 PRN as needed for pain 08/15/2017 09/11/2017 In active tramadol 50 mg tablet RxNorm: 506963 1 Tablet(s) PO Q4 PRN as needed for pain 06/29/2017 08/07/2017 In active ProAir HFA 90 mcg/ac tuation aerosol inhaler RxNorm: 6930408 INHALE 1 TO 2 PUFFS FOUR TIMES A DAY NEEDED FOR ASTHMA 06/14/2017 11/10/2017 Inactive prednisone 20 mg tablet RxNorm: 348949 1 Tablet(s) PO BID x 2 days, then 1 pill daily x 3 days, then 1/2 pill every other day x 3 doses. 06/14/2017 09/11/2017 Inactive Kenalog 40 mg/mL madhavi pension for injection RxNorm: 7990542 1 Milliliter(s) Inj 06/14/2017 06/14/2017 In active Zyrtec 10 mg tablet RxNorm: 2632683 1 Tablet(s) PO daily 06/14/2017 07/13/2017 Inactive tramadol 50 mg tablet RxNorm: 655541 1 Tablet(s) PO Q4 PRN as needed for pain 06/08/2017 06/27/2017 In active [SAVINGS FOR UNINSURED PATIENTS -- BIN:0 88269, PCN: ASPROD1, Group: [id number], ID# [id number], Process claim through [employer], for questions: . THIS IS NOT INSURANCE.] tramadol 50 mg tablet RxNorm: 073435 1 Tablet(s) PO Q4 PRN as needed for pain 05/16/2017 06/04/2017 In active [SAVINGS FOR UNINSURED PATIENTS -- BIN:0 31180, PCN: ASPROD1, Group: [id number], ID# [id number], Process claim through [employer], for questions: . THIS IS NOT INSURANCE.] lorazepam 1 mg tablet RxNorm: 222613 Tablet(s) TAKE TWO TABLETS BY MOUTH AT B EDTIME NEEDED FOR INSOMNIA AND ONE TABLET DAILY NEEDED ANXIETY 05/16/2017 08/13/2017 Inactive Lasix 20 mg tablet RxNorm: 539903 1 Tablet(s) PO daily 05/10/2017 05/09/2017 Inactive Lasix 20 mg tablet RxNorm: 1 Tablet(s) PO daily 05/10/2017 05/12/2017 Inactive potassium chloride E R 10 mEq tablet,extended release RxNorm: 877965 1 Tablet(s) PO daily while on the lasix 05/10/2017 05/09/2017 Inactive potassium chloride E R 10 mEq tablet,extended release RxNorm: 401715 1 Tablet(s) PO daily while on the lasix 05/10/2017 05/12/2017 Inactive prednisone 20 mg tablet RxNorm: 248477 1 Tablet(s) PO BID x 2 days, then 1 pill daily x 3 days, then 1/2 pill every other day x 3 doses. 04/19/2017 06/13/2017 Inactive Zithromax Z-Linus 250 mg tablet RxNorm: 058356 1 Tablet(s) PO UD 04/13/2017 06/28/2017 Inactive prednisone 20 mg tablet RxNorm: 461830 1 Tablet(s) PO BID 04/13/2017 04/17/2017 Inactive levothyroxine 125 mc g tablet RxNorm: 267358 1 Tablet(s) PO daily 04/11/2017 10/07/2017 Inactive tramadol 50 mg tablet RxNorm: 369059 1 Tablet(s) PO Q4 PRN as needed for pain 03/27/2017 04/15/2017 In active [SAVINGS FOR UNINSURED PATIENTS -- BIN:0 34162, PCN: ASPROD1, Group: [id number], ID# [id number], Process claim through [employer], for questions: . THIS IS NOT INSURANCE.] Kenalog 40 mg/mL madhavi pension for injection RxNorm: 5229557 1 Milliliter(s) Inj 03/27/2017 03/27/2017 In active tramadol 50 mg tablet RxNorm: 815837 1 Tablet(s) PO Q4H as needed for pain 03/09/2017 03/26/2017 In active [SAVINGS FOR UNINSURED PATIENTS -- BIN:0 96792, PCN: ASPROD1, Group: [id number], ID# [id number], Process claim through [employer], for questions: . THIS IS NOT INSURANCE.] lisinopril 20 mg-hyd rochlorothiazide 25 mg tablet RxNorm: 818618 TAKE ONE TABLET BY MOUTH DAILY 01/29/2017 11/21/2017 Inactive lorazepam 1 mg tablet RxNorm: 516172 Tablet(s) TAKE TWO TABLETS BY MOUTH AT B EDTIME NEEDED FOR INSOMNIA AND ONE TABLET DAILY NEEDED ANXIETY 01/05/2017 04/04/2017 Inactive tramadol 50 mg tablet RxNorm: 844340 1 Tablet(s) PO Q4H as needed for pain 12/07/2016 01/13/2017 In active [SAVINGS FOR UNINSURED PATIENTS -- BIN:0 75868, PCN: ASPROD1, Group: [id number], ID# [id number], Process claim through [employer], for questions: . THIS IS NOT INSURANCE.] Kenalog 40 mg/mL madhavi pension for injection RxNorm: 0398760 Milliliter(s) Inj 12/07/2016 12/07/2016 In active nystatin 100,000 uni t/mL oral suspension RxNorm: 141038 4 Milliliter(s) PO QI D 12/07/2016 12/11/2016 In active Francia-D 12 Hour 60 mg-120 mg tablet,extended release RxNorm: 116515 1 Tablet(s) PO BID 12/07/2016 01/11/2017 Inactive lorazepam 1 mg tablet RxNorm: 350262 Tablet(s) TAKE TWO TABLETS BY MOUTH AT B EDTIME AND ONE TABLET DAILY NEEDED 12/07/2016 01/04/2017 Inactive (Response to an electronic controlled substance refill request - RxReferenceNumber: [id number]) albuterol sulfate 2. 5 mg/3 mL (0.083 %) solution for nebulization RxNorm: 539133 3 Milliliter(s) INH TID 11/29/2016 11/28/2016 Inactive prednisone 10 mg tablet RxNorm: 224373 Tablet(s) PO UD 11/29/2016 12/05/2016 Inactive 6,5,4,3,2,1 doxycycline hyclate 100 mg tablet RxNorm: 450859 1 Tablet(s) PO BID 11/29/2016 12/04/2016 Inactive albuterol sulfate 2. 5 mg/3 mL (0.083 %) solution for nebulization RxNorm: 266357 3 Milliliter(s) INH TID 11/29/2016 12/03/2016 Inactive Kenalog 40 mg/mL madhavi pension for injection RxNorm: 8645535 Milliliter(s) Inj 11/28/2016 11/28/2016 In active tramadol 50 mg tablet RxNorm: 238357 1 Tablet(s) PO Q4H as needed for pain 11/15/2016 12/06/2016 In active [SAVINGS FOR UNINSURED PATIENTS -- BIN:0 03801, PCN: ASPROD1, Group: [id number], ID# [id number], Process claim through [employer], for questions: . THIS IS NOT INSURANCE.] prednisone 20 mg tablet RxNorm: 761998 2 Tablet(s) PO daily 11/15/2016 11/19/2016 Inactive Advair Diskus 100 mc g-50 mcg/dose powder for inhalation RxNorm: 4194966 1 Puff(s) INH BID 11/15/2016 06/11/2017 Inactive ProAir HFA 90 mcg/ac tuation aerosol inhaler RxNorm: 736341 INHALE 1 TO 2 PUFFS F OUR TIMES A DAY NEEDED FOR ASTHMA 11/15/2016 04/13/2017 Inactive Zithromax Z-Linus 250 mg tablet RxNorm: 493962 1 Tablet(s) PO UD 11/15/2016 11/27/2016 Inactive Zyrtec 10 mg tablet RxNorm: 1658809 1 Tablet(s) PO daily 10/17/2016 11/15/2016 Inactive Keflex 500 mg capsule RxNorm: 267427 1 Capsule(s) PO TID 10/17/2016 10/23/2016 Inactive prednisone 10 mg tablet RxNorm: 645496 Tablet(s) PO UD 10/17/2016 11/28/2016 Inactive 6,5,4,3,2,1 tramadol 50 mg tablet RxNorm: 525276 1 Tablet(s) PO Q4H as needed for pain 09/28/2016 11/06/2016 In active [SAVINGS FOR UNINSURED PATIENTS -- BIN:0 54862, PCN: SABRA1, Group: [id number], ID# [id number], Process claim through [employer], for questions: . THIS IS NOT INSURANCE.] ProAir HFA 90 mcg/ac tuation aerosol inhaler RxNorm: 782331 INHALE 1 TO 2 PUFFS F OUR TIMES A DAY NEEDED FOR ASTHMA 09/15/2016 11/14/2016 Inactive doxycycline hyclate 100 mg tablet RxNorm: 744353 1 Tablet(s) PO BID 09/15/2016 09/24/2016 Inactive doxycycline hyclate 100 mg tablet RxNorm: 614571 1 Tablet(s) PO BID 07/29/2016 08/07/2016 Inactive tramadol 50 mg tablet RxNorm: 376687 1 Tablet(s) PO Q4H as needed for pain 07/29/2016 09/06/2016 In active [SAVINGS FOR UNINSURED PATIENTS -- BIN:0 22514, PCN: ASPROD1, Group: [id number], ID# [id number], Process claim through [employer], for questions: . THIS IS NOT INSURANCE.] lorazepam 1 mg tablet RxNorm: 259210 Tablet(s) TAKE TWO TABLETS BY MOUTH AT B EDTIME AND ONE TABLET DAILY NEEDED 07/29/2016 10/26/2016 Inactive (Response to an electronic controlled substance refill request - RxReferenceNumber: [id number]) levothyroxine 125 mc g tablet RxNorm: 198280 1 Tablet(s) PO daily 06/29/2016 06/29/2016 Inactive levothyroxine 137 mc g tablet RxNorm: 427253 1 Tablet(s) PO daily 06/29/2016 12/25/2016 Inactive ketoconazole 2 % [facility] [place] RxNorm: 044606 1 Application TOP BID 06/29/2016 07/03/2016 Inactive tramadol 50 mg tablet RxNorm: 771144 1 Tablet(s) PO Q4H as needed for pain 06/16/2016 07/25/2016 In active [SAVINGS FOR UNINSURED PATIENTS -- BIN:0 29999, PCN: ASPROD1, Group: [id number], ID# [id number], Process claim through [employer], for questions: . THIS IS NOT INSURANCE.] Bactroban 2 % topica l ointment RxNorm: 820482 APPLY TO AFFECTED ARE A(S) TWO TIMES A DAY 06/16/2016 04/16/2017 Inactive fluconazole 150 mg t ablet RxNorm: 134887 1 Tablet(s) PO daily 06/01/2016 06/05/2016 Inactive gentamicin 0.1 % top ical ointment RxNorm: 010674 1 Application TOP QID 05/12/2016 05/25/2016 In active metronidazole 500 mg tablet RxNorm: 709047 1 Tablet(s) PO TID 05/11/2016 05/24/2016 Inactive gentamicin 0.1 % top ical ointment RxNorm: 036478 1 Application TOP QID 05/11/2016 05/11/2016 In active doxycycline hyclate 100 mg tablet RxNorm: 981969 1 Tablet(s) PO BID 05/11/2016 05/24/2016 Inactive lorazepam 1 mg tablet RxNorm: 928570 Tablet(s) TAKE TWO TABLETS BY MOUTH AT B EDTIME AND ONE TABLET DAILY NEEDED 05/02/2016 07/28/2016 Inactive (Response to an electronic controlled substance refill request - RxReferenceNumber: [id number]) Diflucan 150 mg tablet RxNorm: 367829 1 Tablet(s) PO daily x5 days then 1 x we ekly x 4 weeks. 05/02/2016 04/10/2017 Inactive Diflucan 150 mg tablet RxNorm: 439031 1 Tablet(s) PO every other day 04/19/2016 04/28/2016 In active Diflucan 150 mg tablet RxNorm: 563692 1 Tablet(s) PO every other day 04/19/2016 04/18/2016 In active Diflucan 150 mg tablet RxNorm: 706878 1 Tablet(s) PO daily 04/05/2016 04/11/2016 Inactive mupirocin 2 % topica l ointment RxNorm: 178845 1 Application TOP BID 04/05/2016 05/04/2016 Inactive tramadol 50 mg tablet RxNorm: 226481 1 Tablet(s) PO Q4H as needed for pain 04/05/2016 05/14/2016 In active [SAVINGS FOR UNINSURED PATIENTS -- BIN:0 50062, PCN: ASPROD1, Group: [id number], ID# [id number], Process claim through [employer], for questions: . THIS IS NOT INSURANCE.] prednisone 10 mg tablet RxNorm: 305143 Tablet(s) PO UD 04/01/2016 09/26/2016 Inactive 6,5,4,3,2,1 levothyroxine 137 mc g tablet RxNorm: 099064 1 Tablet(s) PO daily 03/21/2016 03/20/2016 Inactive levothyroxine 137 mc g tablet RxNorm: 669815 1 Tablet(s) PO daily 03/21/2016 06/28/2016 Inactive Advair Diskus 100 mc g-50 mcg/dose powder for inhalation RxNorm: 4487491 1 Puff(s) INH BID 01/26/2016 05/24/2016 Inactive tramadol 50 mg tablet RxNorm: 095562 1 Tablet(s) PO Q4H as needed for pain 01/26/2016 03/05/2016 In active [SAVINGS FOR UNINSURED PATIENTS -- BIN:0 15624, PCN: ASPROD1, Group: [id number], ID# [id number], Process claim through [employer], for questions: . THIS IS NOT INSURANCE.] Bactroban 2 % topica l ointment RxNorm: 777508 APPLY TO AFFECTED ARE A(S) TWO TIMES A DAY 12/22/2015 12/31/2015 Inactive Bactrim DS 800 mg-16 0 mg tablet RxNorm: 837878 TAKE ONE TABLET BY MO UT TWICE A DAY 12/22/2015 04/18/2016 In active Bactrim DS 800 mg-16 0 mg tablet RxNorm: 426591 1 Tablet(s) PO BID 12/21/2015 01/21/2019 Inactive lisinopril 20 mg-hyd rochlorothiazide 25 mg tablet RxNorm: 854611 1 Tablet(s) PO daily 12/21/2015 06/17/2016 Inactive [SAVINGS FOR UNINSURED PATIENTS -- BIN:0 33505, PCN: ASPROD1, Group: [id number], ID# [id number], Process claim through [employer], for questions: . THIS IS NOT INSURANCE.] tramadol 50 mg tablet RxNorm: 777154 1 Tablet(s) PO Q4H as needed for pain 12/03/2015 01/11/2016 In active [SAVINGS FOR UNINSURED PATIENTS -- BIN:0 29058, PCN: ASPROD1, Group: [id number], ID# [id number], Process claim through [employer], for questions: . THIS IS NOT INSURANCE.] lorazepam 1 mg tablet RxNorm: 463357 Tablet(s) TAKE TWO TABLETS BY MOUTH AT B EDTIME AND ONE TABLET DAILY NEEDED 11/26/2015 06/27/2018 Inactive (Response to an electronic controlled substance refill request - RxReferenceNumber: [id number]) Bactrim DS 800 mg-16 0 mg tablet RxNorm: 723729 1 Tablet(s) PO BID 11/25/2015 12/04/2015 Inactive levothyroxine 150 mc g tablet RxNorm: 838141 1 Tablet(s) PO daily 11/25/2015 03/20/2016 Inactive Bactroban 2 % topica l ointment RxNorm: 710776 1 Application TOP BID 10/12/2015 10/21/2015 Inactive Bactrim DS 800 mg-16 0 mg tablet RxNorm: 600426 1 Tablet(s) PO BID 09/07/2015 09/06/2015 Inactive Bactrim DS 800 mg-16 0 mg tablet RxNorm: 753803 1 Tablet(s) PO BID 09/07/2015 09/16/2015 Inactive lorazepam 1 mg tablet RxNorm: 274665 Tablet(s) TAKE TWO TABLETS BY MOUTH AT B EDTIME AND ONE TABLET DAILY NEEDED 08/28/2015 11/24/2015 Inactive (Response to an electronic controlled substance refill request - RxReferenceNumber: [id number]) levothyroxine 175 mc g tablet RxNorm: 171515 1 Tablet(s) PO daily 08/24/2015 11/24/2015 Inactive tramadol 50 mg tablet RxNorm: 550839 1 Tablet(s) PO Q4H as needed for pain 08/24/2015 09/11/2017 In active [SAVINGS FOR UNINSURED PATIENTS -- BIN:0 68618, PCN: ASPROD1, Group: [id number], ID# [id number], Process claim through [employer], for questions: . THIS IS NOT INSURANCE.] lisinopril 20 mg-hyd rochlorothiazide 25 mg tablet RxNorm: 781737 1 Tablet(s) PO daily TAKE 1 TABLET BY MOUTH DAILY 08/24/2015 06/27/2018 Inactive ProAir HFA 90 mcg/ac tuation aerosol inhaler RxNorm: 329649 1-2 Puff(s) INH PRN I NHALE ONE TO TWO PUFFS BY MOUTH FOUR TIMES A DAY NEEDED FOR ASTHMA 08/24/2015 12/01/2015 In active ProAir HFA 90 mcg/ac tuation aerosol inhaler RxNorm: 5346597 INHALE ONE TO TWO PU FFS BY MOUTH FOUR TIMES A DAY NEEDED FOR ASTHMA 08/17/2015 08/23/2015 Inactive Advair Diskus 250 mc g-50 mcg/dose powder for inhalation RxNorm: 1853940 1 Puff(s) INH BID 07/20/2015 07/19/2015 Inactive Advair Diskus 250 mc g-50 mcg/dose powder for inhalation RxNorm: 0827982 1 Puff(s) INH BID 07/20/2015 11/16/2015 Inactive tramadol 50 mg tablet RxNorm: 562312 1 Tablet(s) PO Q4H as needed for pain 07/10/2015 08/17/2015 In active [SAVINGS FOR UNINSURED PATIENTS -- BIN:0 40611, PCN: ASPROD1, Group: [id number], ID# [id number], Process claim through [employer], for questions: . THIS IS NOT INSURANCE.] Zithromax Z-Linus 250 mg tablet RxNorm: 874392 1 Tablet(s) PO UD 07/10/2015 01/18/2016 Inactive Keflex 500 mg capsule RxNorm: 242196 1 Capsule(s) PO TID 06/01/2015 06/07/2015 Inactive mupirocin 2 % topica l ointment RxNorm: 753844 1 Application TOP TID 06/01/2015 06/10/2015 Inactive lisinopril 20 mg-hyd rochlorothiazide 25 mg tablet RxNorm: 543729 TAKE 1 TABLET BY MOUT H DAILY 05/30/2015 08/23/2015 Inactive lisinopril 20 mg-hyd rochlorothiazide 25 mg tablet RxNorm: 634189 1 Tablet(s) PO daily 05/29/2015 11/24/2015 Inactive [SAVINGS FOR UNINSURED PATIENTS -- BIN:0 61566, PCN: ASPROD1, Group: [id number], ID# [id number], Process claim through [employer], for questions: . THIS IS NOT INSURANCE.] lorazepam 1 mg tablet RxNorm: 542061 Tablet(s) TAKE TWO TABLETS BY MOUTH AT B EDTIME AND ONE TABLET DAILY NEEDED 04/17/2015 07/13/2015 Inactive (Response to an electronic controlled substance refill request - RxReferenceNumber: [id number]) levothyroxine 200 mc g tablet RxNorm: 196541 1 Tablet(s) PO daily 03/12/2015 08/23/2015 Inactive [SAVINGS FOR UNINSURED PATIENTS -- BIN:0 16670, PCN: ASPROD1, Group: [id number], ID# [id number], Process claim through [employer], for questions: . THIS IS NOT INSURANCE.] lisinopril 20 mg-hyd rochlorothiazide 25 mg tablet RxNorm: 200119 1 Tablet(s) PO daily 03/11/2015 05/28/2015 Inactive [SAVINGS FOR UNINSURED PATIENTS -- BIN:0 32179, PCN: ASPROD1, Group: [id number], ID# [id number], Process claim through [employer], for questions: . THIS IS NOT INSURANCE.] levothyroxine 175 mc g tablet RxNorm: 500467 1 Tablet(s) PO daily 03/09/2015 03/11/2015 Inactive recheck blood in 3 months- THIS IS CORRE CT DOSAGE levothyroxine 175 mc g tablet RxNorm: 026626 1 Tablet(s) PO daily 03/09/2015 03/08/2015 Inactive recheck blood in 3 months levothyroxine 150 mc g tablet RxNorm: 259885 1 Tablet(s) PO daily 03/09/2015 03/08/2015 Inactive recheck blood in 3 months lorazepam 1 mg tablet RxNorm: 678684 TAKE TWO TABLETS BY MOUTH AT BEDTIME AND ONE TABLET DAILY NEEDED 12/25/2014 01/22/2015 Inactive (Response to an electronic controlled substance refill request - RxReferenceNumber: [id number]) lorazepam 1 mg tablet RxNorm: 528353 Tablet(s) TAKE TWO TABLETS BY MOUTH EVER Y NIGHT AT BEDTIME AND TAKE ONE TABLET BY MOUTH DAILY NEEDED 12/23/2014 12/25/2014 Inactive (Response to an electronic controlled [place] b[place] refill request - RxReferenceNumber: [id number]) levothyroxine 150 mc g tablet RxNorm: 041128 1 Tablet(s) PO daily 12/12/2014 03/08/2015 Inactive recheck blood in 3 months Diflucan 150 mg tablet RxNorm: 561528 1 Tablet(s) PO every other day (start af ter finished with Cipro) 11/17/2014 08/23/2015 Inactive tramadol 50 mg tablet RxNorm: 728306 1 Tablet(s) PO Q4H as needed for pain 11/10/2014 12/17/2014 In active [SAVINGS FOR UNINSURED PATIENTS -- BIN:0 15628, PCN: ASPROD1, Group: [id number], ID# [id number], Process claim through [employer], for questions: . THIS IS NOT INSURANCE.] Cipro 500 mg tablet RxNorm: 105705 1 Tablet(s) PO BID 10/23/2014 10/29/2014 Inactive Flagyl 500 mg tablet RxNorm: 925639 1 Tablet(s) PO TID 10/23/2014 10/29/2014 Inactive Cipro 500 mg tablet RxNorm: 592087 1 Tablet(s) PO BID 10/23/2014 10/22/2014 Inactive Flagyl 500 mg tablet RxNorm: 870691 1 Tablet(s) PO TID 10/23/2014 10/22/2014 Inactive Diflucan 150 mg tablet RxNorm: 216260 1 Tablet(s) PO every other day (start af ter finished with Cipro) 10/23/2014 11/16/2014 Inactive lorazepam 1 mg tablet RxNorm: 267167 TAKE TWO TABLETS BY MOUTH EVERY NIGHT AT BEDTIME AND TAKE ONE TABLET BY MOUTH DAILY NEEDED 10/21/2014 10/21/2014 Inactive (Response to an electronic controlled [place] bstance refill request - RxReferenceNumber: [id number]) lorazepam 1 mg tablet RxNorm: 686479 TAKE TWO TABLETS BY MOUTH EVERY NIGHT AT BEDTIME AND TAKE ONE TABLET BY MOUTH DAILY NEEDED 10/21/2014 11/18/2014 Inactive (Response to an electronic controlled [place] bstance refill request - RxReferenceNumber: [id number]) lorazepam 1 mg tablet RxNorm: 219053 Tablet(s) TAKE TWO TABLETS BY MOUTH AT B EDTIME, ALSO TAKE ONE TABLET BY MOUTH DAILY NEEDED 10/13/2014 10/21/2014 Inactive (Res ponse to an electronic controlled substance refill request - RxReferenceNumber: [id number]) ProAir HFA 90 mcg/ac tuation aerosol inhaler RxNorm: 5297979 1-2 inhale INH QID a s needed ASTHMA 10/13/2014 12/26/2014 Inactive ProAir HFA 90 mcg/ac tuation aerosol inhaler RxNorm: 2527393 1-2 inhale INH QID a s needed ASTHMA 09/18/2014 10/12/2014 Inactive meloxicam 7.5 mg tablet RxNorm: 712422 1 Tablet(s) PO daily 09/18/2014 03/10/2015 Inactive [SAVINGS FOR UNINSURED PATIENTS -- BIN:0 68293, PCN: ASPROD1, Group: [id number], ID# [id number], Process claim through [employer], for questions: . THIS IS NOT INSURANCE.] sulfamethoxazole 800 mg-trimethoprim 160 mg tablet RxNorm: 900934 1 Tablet(s) PO BID 09/18/2014 10/07/2014 Inactive levothyroxine 175 mc g tablet RxNorm: 732454 1 Tablet(s) PO daily 09/17/2014 12/11/2014 Inactive levothyroxine 175 mc g tablet RxNorm: 246361 1 Tablet(s) PO daily 09/17/2014 09/16/2014 Inactive lorazepam 1 mg tablet RxNorm: 710495 Tablet(s) TAKE TWO TABLETS BY MOUTH AT B EDTIME, ALSO TAKE ONE TABLET BY MOUTH DAILY NEEDED 09/12/2014 10/11/2014 Inactive (Res ponse to an electronic controlled substance refill request - RxReferenceNumber: [id number]) lorazepam 1 mg tablet RxNorm: 533393 TAKE TWO TABLETS BY MOUTH AT BEDTIME, AL SO TAKE ONE TABLET BY MOUTH DAILY NEEDED 09/08/2014 09/11/2014 Inactive (Res ponse to an electronic controlled substance refill request - RxReferenceNumber: [id number]) meloxicam 7.5 mg tablet RxNorm: 870455 1 Tablet(s) PO daily 09/01/2014 09/17/2014 Inactive [SAVINGS FOR UNINSURED PATIENTS -- BIN:0 89314, PCN: ASPROD1, Group: [id number], ID# [id number], Process claim through [employer], for questions: . THIS IS NOT INSURANCE.] lisinopril 20 mg-hyd rochlorothiazide 25 mg tablet RxNorm: 848593 1 Tablet(s) PO daily 09/01/2014 12/29/2014 Inactive [SAVINGS FOR UNINSURED PATIENTS -- BIN:0 54810, PCN: ASPROD1, Group: AME08, ID# [id number], Process claim through [employer], for questions: . THIS IS NOT INSURANCE.] tramadol 50 mg tablet RxNorm: 853507 1 Tablet(s) PO Q4H as needed for pain 08/20/2014 11/07/2014 In active [SAVINGS FOR UNINSURED PATIENTS -- BIN:0 10291, PCN: ASPROD1, Group: AME08, ID# [id number], Process claim through [employer], for questions: . THIS IS NOT INSURANCE.] meloxicam 7.5 mg tablet RxNorm: 783160 1 Tablet(s) PO daily 08/14/2014 08/31/2014 Inactive [SAVINGS FOR UNINSURED PATIENTS -- BIN:0 66089, PCN: ASPROD1, Group: AME08, ID# [id number], Process claim through [employer], for questions: . THIS IS NOT INSURANCE.] lorazepam 1 mg tablet RxNorm: 166451 2 Tablet(s) PO QHS and 1 tab qd PRN 08/01/2014 09/08/2014 In active [SAVINGS FOR UNINSURED PATIENTS -- BIN:0 94270, PCN: ASPROD1, Group: AME08, ID# [id number], Process claim through [employer], for questions: . THIS IS NOT INSURANCE.] levothyroxine 200 mc g tablet RxNorm: 901102 1 Tablet(s) PO daily 07/31/2014 09/16/2014 Inactive [SAVINGS FOR UNINSURED PATIENTS -- BIN:0 10139, PCN: ASPROD1, Group: AME08, ID# [id number], Process claim through [employer], for questions: . THIS IS NOT INSURANCE.] lorazepam 1 mg tablet RxNorm: 015973 2 Tablet(s) PO QHS and 1 tab qd PRN No Start Date 07/31/2014 Inactive Phenergan VC-Codeine oral RxNorm: 462629 oral No S tart Date 11/26/2017 Inactive meloxicam 7.5 mg tablet RxNorm: 420505 1 Tablet(s) PO daily No Start Date 08/13/2014 Inactive lisinopril 20 mg-hyd rochlorothiazide 25 mg tablet RxNorm: 002427 1 Tablet(s) PO daily No Start Date 08/31/2014 Inactive levothyroxine 200 mc g tablet RxNorm: 653177 1 Tablet(s) PO daily No Start Date 07/30/2014 Inactive Diflucan 150 mg tablet RxNorm: 088941 1 Tablet(s) PO every other day No Start Date 10/22/2014 Inactive Zithromax Z-Linus 250 mg tablet RxNorm: 444234 1 Tablet(s) PO UD No Start Date 07/09/2015 Inactive tramadol 50 mg tablet RxNorm: 053249 1 Tablet(s) PO Q6 as needed No Start Date 08/19/2014 Inactive Medication Administered Medication Codes Instruc tions Start Date Status Kenalog 40 mg/mL suspension for injection RxNorm: 7394828 1Milliliter 06/14/2017 N o longer Active Kenalog 40 mg/mL suspension for injection RxNorm: 8773747 1Milliliter 03/27/2017 N o longer Active Kenalog 40 mg/mL suspension for injection RxNorm: 8451816 Milliliter 12/07/2016 No longer Active Kenalog 40 mg/mL suspension for injection RxNorm: 1734418 Milliliter 11/28/2016 No longer Active Immunizations Vaccine [...] (3rd IS) 1.49 uIU/mL 01/21/2019 Free T4 Zva707 FREE T4 1.15 ng/dL 01/21/2019 Lipid Ord30 CHOL 231 mg/dL 10/24/2018 Lipid Ord30 HDL 56.0 mg/dl 10/24/2018 Lipid Ord30 TRIG 71 mg/dL 10/24/2018 Lipid Ord30 LDL 161 mg/dL 10/24/2018 Lipid Ord30 C/HDL 4.1 Ratio 10/24/2018 Comp Metabolic Pcl646 NA 141 mEq/L 10/24/2018 Comp Metabolic Xna562 K 3.7 mEq/L 10/24/2018 Comp Metabolic Gvj994 CL 103 mEq/L 10/24/2018 Comp Metabolic Avt526 CO2 30.0 mEq/L 10/24/2018 Comp Metabolic Rap063 AN ION GAP 12 10/24/2018 Comp Metabolic Zem864 GL UCOSE 98 mg/dL 10/24/2018 Comp Metabolic Tlp530 Cr eat 0.8 mg/dL 10/24/2018 Comp Metabolic Zmq033 eG FR 71 ml/min/1.73m2 10/24 Comp Metabolic Vbu334 BUN 12 mg/dL 10/24/2018 Comp Metabolic Yig201 B/ C Ratio 14.5 Ratio 10/24/2018 Comp Metabolic Zie697 CA LCIUM 9.2 mg/dL 10/24/2018 Comp Metabolic Uoo151 AL K PHOS 76 U/L 10/24/2018 Comp Metabolic Tdl475 T(SGOT) 12 U/L 10/24/2018 Comp Metabolic Gpo368 AL T(SGPT) 9 U/L 10/24/2018 Comp Metabolic Hvt151 BI LI T 0.5 mg/dL 10/24/2018 Comp Metabolic Awf144 AL BUMIN 4.3 g/dL 10/24/2018 Comp Metabolic Smu153 TP RO 6.5 g/dL 10/24/2018 Comp Metabolic Pyf426 GL OB 2.2 g/dL 10/24/2018 Comp Metabolic Qri837 A/ G Ratio 2.0 Ratio 10/24/2018 Comp Metabolic Hvj949 Os mo 281 mOsmo 10/24/2018 Free T4 Zcg540 FREE T4 0.76 ng/dL 10/24/2018 Cbc With [...] 30.5 pg 10/24/2018 Cbc With Differential Ord2 [place]% 8.4 % 10/24/2018 Cbc With Differential Ord2 [...] 1.71 K/ul 10/24/2018 Cbc With Differential Ord2 [place] ABS# 0.4 K/ul 10/24/2018 Cbc With Differential [...] 30.0 pg 04/04/2018 Cbc With Differential Ord2 [place]% 10.9 % 04/04/2018 Cbc With Differential Ord2 [...] 1.42 K/ul 04/04/2018 Cbc With Differential Ord2 [place] ABS# 0.6 K/ul 04/04/2018 Cbc With Differential Ord2 Eos ABS# 0.1 K/ul 04/04/2018 Cbc With Differential Ord2 Baso ABS# 0.0 K/ul 04/04/2018 Free T4 Kbl147 FREE T4 1.25 ng/dL 04/04/2018 Tsh Ord6 [...] 30.2 pg 11/28/2017 Cbc With Differential Ord2 [place]% 10.1 % 11/28/2017 Cbc With Differential Ord2 [...] 1.33 K/ul 11/28/2017 Cbc With Differential Ord2 [place] ABS# 0.5 K/ul 11/28/2017 Cbc With Differential Ord2 Eos ABS# 0.1 K/ul 11/28/2017 Cbc With Differential Ord2 Baso ABS# 0.0 K/ul 11/28/2017 Free T4 Usg451 FREE T4 1.43 ng/dL 11/28/2017 Lipid Ord30 CHOL 186 mg/dL 11/28/2017 Lipid Ord30 HDL 54.0 mg/dl 11/28/2017 Lipid Ord30 TRIG 59 mg/dL 11/28/2017 Lipid Ord30 LDL 120 mg/dL 11/28/2017 Lipid Ord30 C/HDL 3.4 Ratio 11/28/2017 Comp Metabolic Lnj745 NA 141 mEq/L 11/28/2017 Comp Metabolic Qlh542 K 4.0 mEq/L 11/28/2017 Comp Metabolic Wbz653 CL 105 mEq/L 11/28/2017 Comp Metabolic Cvz784 CO2 29.0 mEq/L 11/28/2017 Comp Metabolic Elc572 AN ION GAP 11 11/28/2017 Comp Metabolic Tvu051 GL UCOSE 91 mg/dL 11/28/2017 Comp Metabolic Rtq058 Cr eat 0.8 mg/dL 11/28/2017 Comp Metabolic Uby603 eG FR 74 ml/min/1.73m2 11/28 Comp Metabolic Sxd023 BUN 15 mg/dL 11/28/2017 Comp Metabolic Oxh660 B/ C Ratio 18.8 Ratio 11/28/2017 Comp Metabolic Wdn896 CA LCIUM 8.6 mg/dL 11/28/2017 Comp Metabolic Rqi690 AL K PHOS 76 U/L 11/28/2017 Comp Metabolic Jxh283 T(SGOT) 10 U/L 11/28/2017 Comp Metabolic Lxk301 AL T(SGPT) 8 U/L 11/28/2017 Comp Metabolic Sql635 BI LI T 0.5 mg/dL 11/28/2017 Comp Metabolic Klj944 AL BUMIN 4.0 g/dL 11/28/2017 Comp Metabolic Qoi806 TP RO 6.1 g/dL 11/28/2017 Comp Metabolic Ihf923 GL OB 2.1 g/dL 11/28/2017 Comp Metabolic Fbx552 A/ G Ratio 1.9 Ratio 11/28/2017 Comp Metabolic Zcq356 Os mo 282 mOsmo 11/28/2017 Tsh Ord6 TSH (3rd IS) 3.31 uIU/mL 11/28/2017 Tsh Ord6 hTSH II 1.45 uIU/mL 03/27/2017 Free T4 Opf742 FREE T4 1.23 ng/dL 03/27/2017 Comp Metabolic Mwy977 NA 140 mEq/L 09/28/2016 Comp Metabolic Ivw652 K 3.9 mEq/L 09/28/2016 Comp Metabolic Mmh951 CL 104 mEq/L 09/28/2016 Comp Metabolic Lfk587 CO2 28.0 mEq/L 09/28/2016 Comp Metabolic Wvs171 AN ION GAP 12 09/28/2016 Comp Metabolic Jth405 GL UCOSE 97 mg/dL 09/28/2016 Comp Metabolic Wnr831 Cr eat 0.8 mg/dL 09/28/2016 Comp Metabolic Yfe645 eG FR 79 ml/min/1.73m2 09/28 Comp Metabolic Enc619 BUN 13 mg/dL 09/28/2016 Comp Metabolic Dna372 B/ C Ratio 17.1 Ratio 09/28/2016 Comp Metabolic Ebz584 CA LCIUM 8.9 mg/dL 09/28/2016 Comp Metabolic Swp319 AL K PHOS 100 U/L 09/28/2016 Comp Metabolic Mjs961 T(SGOT) 12 U/L 09/28/2016 Comp Metabolic Qgf527 AL T(SGPT) 9 U/L 09/28/2016 Comp Metabolic Wfo339 BI LI T 0.4 mg/dL 09/28/2016 Comp Metabolic Zxo687 AL BUMIN 4.1 g/dL 09/28/2016 Comp Metabolic Pzq974 TP RO 6.6 g/dL 09/28/2016 Comp Metabolic Opm854 GL OB 2.5 g/dL 09/28/2016 Comp Metabolic Deg459 A/ G Ratio 1.6 Ratio 09/28/2016 Comp Metabolic Luu454 Os mo 279 mOsmo 09/28/2016 Lipid Ord30 [...] 28.8 pg 09/28/2016 Cbc With Differential Ord2 [place]% 7.2 % 09/28/2016 Cbc With Differential Ord2 [...] 1.41 K/ul 09/28/2016 Cbc With Differential Ord2 [place] ABS# 0.5 K/ul 09/28/2016 Cbc With Differential Ord2 Eos ABS# 0.2 K/ul 09/28/2016 Cbc With Differential Ord2 Baso ABS# 0.0 K/ul 09/28/2016 Free T4 Qwm368 FREE T4 1.43 ng/dL 09/28/2016 Tsh Ord6 hTSH II 0.52 uIU/mL 09/28/2016 Tsh Ord6 hTSH II 0.47 uIU/mL 06/16/2016 Comp Metabolic Imd988 NA 139 mEq/L 06/16/2016 Comp Metabolic Nmi907 K 4.3 mEq/L 06/16/2016 Comp Metabolic Dgt754 CL 105 mEq/L 06/16/2016 Comp Metabolic Bdl993 CO2 30.0 mEq/L 06/16/2016 Comp Metabolic Vvr491 AN ION GAP 8 06/16/2016 Comp Metabolic Xej894 GL UCOSE 90 mg/dL 06/16/2016 Comp Metabolic Ebi926 Cr eat 0.7 mg/dL 06/16/2016 Comp Metabolic Wqf702 eG FR 91 ml/min/1.73m2 06/16 Comp Metabolic Vwu099 BUN 15 mg/dL 06/16/2016 Comp Metabolic Rtz574 B/ C Ratio 22.4 Ratio 06/16/2016 Comp Metabolic Txb955 CA LCIUM 8.8 mg/dL 06/16/2016 Comp Metabolic Amt865 AL K PHOS 79 U/L 06/16/2016 Comp Metabolic Yce790 T(SGOT) 13 U/L 06/16/2016 Comp Metabolic Pzo954 AL T(SGPT) 11 U/L 06/16/2016 Comp Metabolic Jyy548 BI LI T 0.5 mg/dL 06/16/2016 Comp Metabolic Yay212 AL BUMIN 3.9 g/dL 06/16/2016 Comp Metabolic Vqf456 TP RO 6.1 g/dL 06/16/2016 Comp Metabolic Dif880 GL OB 2.2 g/dL 06/16/2016 Comp Metabolic Cqj548 A/ G Ratio 1.8 Ratio 06/16/2016 Comp Metabolic Yog389 Os mo 278 mOsmo 06/16/2016 Lipid Ord30 [...] 28.9 pg 06/16/2016 Cbc With Differential Ord2 [place]% 8.1 % 06/16/2016 Cbc With Differential Ord2 [...] 1.70 K/ul 06/16/2016 Cbc With Differential Ord2 [place] ABS# 0.4 K/ul 06/16/2016 Cbc With Differential Ord2 Eos ABS# 0.2 K/ul 06/16/2016 Cbc With Differential Ord2 Baso ABS# 0.0 K/ul 06/16/2016 Free T4 Exy410 FREE T4 1.42 ng/dL 06/16/2016 Free T4 Kgt703 FREE T4 1.34 ng/dL 03/04/2016 Tsh Ord6 hTSH II 0.56 uIU/mL 03/04/2016 Tsh Ord6 hTSH II 0.98 uIU/mL 01/27/2016 Free T4 Gkc457 FREE T4 1.19 ng/dL 01/27/2016 Free T4 Wry303 FREE T4 1.69 ng/dL 11/23/2015 Tsh Ord6 hTSH II 0.08 uIU/mL 11/23/2015 Lipid Ord30 CHOL 185 mg/dL 08/21/2015 Lipid Ord30 HDL 50.0 mg/dl 08/21/2015 Lipid Ord30 TRIG 88 mg/dL 08/21/2015 Lipid Ord30 LDL 117 mg/dL 08/21/2015 Lipid Ord30 C/HDL 3.7 Ratio 08/21/2015 Comp Metabolic Syw067 NA 139 mEq/L 08/21/2015 Comp Metabolic Dqz553 K 4.3 mEq/L 08/21/2015 Comp Metabolic Cbc085 CL 102 mEq/L 08/21/2015 Comp Metabolic Ydr401 CO2 27.0 mEq/L 08/21/2015 Comp Metabolic Qno484 AN ION GAP 14 08/21/2015 Comp Metabolic Hob697 GL UCOSE 89 mg/dL 08/21/2015 Comp Metabolic Mji872 Cr eat 0.7 mg/dL 08/21/2015 Comp Metabolic Jvf980 eG FR 85 ml/min/1.73m2 08/21 Comp Metabolic Qvi033 BUN 14 mg/dL 08/21/2015 Comp Metabolic Yiz261 B/ C Ratio 19.7 Ratio 08/21/2015 Comp Metabolic Wea871 CA LCIUM 9.5 mg/dL 08/21/2015 Comp Metabolic Jon601 AL K PHOS 123 U/L 08/21/2015 Comp Metabolic Fhz316 T(SGOT) 13 U/L 08/21/2015 Comp Metabolic Hak846 AL T(SGPT) 10 U/L 08/21/2015 Comp Metabolic Wnl453 BI LI T 0.4 mg/dL 08/21/2015 Comp Metabolic Hcd873 AL BUMIN 4.1 g/dL 08/21/2015 Comp Metabolic Nbv508 TP RO 6.8 g/dL 08/21/2015 Comp Metabolic Vtp750 GL OB 2.7 g/dL 08/21/2015 Comp Metabolic Zka082 A/ G Ratio 1.5 Ratio 08/21/2015 Comp Metabolic Vex875 Os mo 277 mOsmo 08/21/2015 Free T4 Zhb165 FREE T4 1.78 ng/dL 08/21/2015 Tsh Ord6 [...] Ord2 RDW 13.9 % 08/21/2015 Quick Strep Rrs7201 Quic k Strep Negative 07/08/2015 Tsh Ord6 hTSH II 0.04 uIU/mL 05/20/2015 Free T4 Amo445 FREE T4 1.50 ng/dL 05/20/2015 Review of [...] intact 10/30/2018 None Full Exam - General 1995 Psychiatric [...] Procedure Codes Date DESTRUCT PREMALG LESION CPT-4: 67444 01/19/2018 URINALYSIS NONAUTO W /O SCOPE CPT-4: 43476 09/12/2017 TRIAMCINOLONE ACET I [place] NOS CPT-4: J3301 06/14/2017 THER/PROPH/DIAG INJ SC/IM CPT-4: 37307 06/14/2017 PRESCRIP TRANSMIT A ERX SY CPT-4: G8553 06/14/2017 TRIAMCINOLONE ACET I [place] NOS CPT-4: J3301 03/27/2017 THER/PROPH/DIAG INJ SC/IM CPT-4: 56733 12/07/2016 TRIAMCINOLONE ACET I [place] NOS CPT-4: J3301 12/07/2016 THER/PROPH/DIAG INJ SC/IM CPT-4: 80148 11/28/2016 TRIAMCINOLONE ACET I [place] NOS CPT-4: J3301 11/28/2016 Vital Signs Date Vital 01/22/2019 Blood Pressure 1: 132/66 Code: 8480-6 BMI: 37.1 Code: 51242-9 Heart Rate 1: 73 bpm Height: 5'6" SpO2: 96% Weight: 230 lbs 11/21/2018 Blood Pressure 1: 120/64 Code: 8480-6 Heart Rate 1: 64 bpm 10/30/2018 Blood Pressure 1: 144/70 Code: 8480-6 BMI: 37.0 Code: 88769-2 Heart Rate 1: 76 bpm Height: 5'6" SpO2: 96% Weight: 229 lbs 06/28/2018 Blood Pressure 1: 110/66 Code: 8480-6 BMI: 37.1 Code: 21859-6 Heart Rate 1: 73 bpm Height: 5'6" SpO2: 98% Weight: 230 lbs 04/04/2018 Blood Pressure 1: 128/76 Code: 8480-6 BMI: 37.9 Code: 38030-0 Heart Rate 1: 86 bpm Height: 5'6" SpO2: 98% Weight: 235 lbs 01/19/2018 Blood Pressure 1: 122/68 Code: 8480-6 Heart Rate 1: 78 bpm Height: 5'6" SpO2: 97% Weight: 01/05/2018 Blood Pressure 1: 138/78 Code: 8480-6 BMI: 38.4 Code: 78939-7 Heart Rate 1: 73 bpm Height: 5'6" SpO2: 95% Weight: 238 lbs 11/29/2017 Blood Pressure 1: 138/80 Code: 8480-6 BMI: 38.7 Code: 66594-6 Heart Rate 1: 71 bpm Height: 5'6" SpO2: 97% Weight: 240 lbs 10/25/2017 Blood Pressure 1: 136/72 Code: 8480-6 BMI: 38.7 Code: 82267-4 Heart Rate 1: 92 bpm Height: 5'6" SpO2: 98% Weight: 240 lbs 09/12/2017 Blood Pressure 1: 132/68 Code: 8480-6 BMI: 39.7 Code: 18555-8 Heart Rate 1: 76 bpm Height: 5'6" SpO2: 98% Weight: 246 lbs 06/14/2017 Blood Pressure 1: 130/80 Code: 8480-6 BMI: 39.4 Code: 72029-4 Heart Rate 1: 73 bpm Height: 5'6" SpO2: 95% Temperature: 36.9 (C ) / 98.5 (F) Weight: 244 lbs 05/10/2017 Blood Pressure 1: 128/68 Code: 8480-6 BMI: 38.7 Code: 15750-2 Heart Rate 1: 69 bpm Height: 5'6" SpO2: 97% Weight: 240 lbs 04/19/2017 Blood Pressure 1: 138/74 Code: 8480-6 BMI: 38.7 Code: 73003-8 Heart Rate 1: 73 bpm Height: 5'6" SpO2: 96% Weight: 240 lbs 03/27/2017 Blood Pressure 1: 142/84 Code: 8480-6 BMI: 38.7 Code: 70122-8 Heart Rate 1: 69 bpm Height: 5'6" SpO2: 97% Weight: 240 lbs 01/26/2017 Blood Pressure 1: 136/68 Code: 8480-6 Heart Rate 1: 64 bpm Height: 5'6" SpO2: 96% Weight: 12/07/2016 Blood Pressure 1: 130/72 Code: 8480-6 BMI: 39.7 Code: 65398-1 Heart Rate 1: 73 bpm Height: 5'6" SpO2: 93% Temperature: 36.8 (C ) / 98.3 (F) Weight: 246 lbs 11/28/2016 Blood Pressure 1: 138/60 Code: 8480-6 BMI: 39.7 Code: 97120-5 Heart Rate 1: 81 bpm Height: 5'6" SpO2: 97% Weight: 246 lbs 11/15/2016 Blood Pressure 1: 134/78 Code: 8480-6 BMI: 39.7 Code: 57156-0 Heart Rate 1: 75 bpm Height: 5'6" SpO2: 93% Temperature: 36.8 (C ) / 98.2 (F) Weight: 246 lbs 10/17/2016 Blood Pressure 1: 120/64 Code: 8480-6 BMI: 38.4 Code: 31312-1 Heart Rate 1: 69 bpm Height: 5'6" SpO2: 98% Temperature: 37.2 (C ) / 98.9 (F) Weight: 238 lbs 09/28/2016 Blood Pressure 1: 158/76 Code: 8480-6 BMI: 39.4 Code: 88619-6 Heart Rate 1: 71 bpm Height: 5'6" SpO2: 97% Weight: 244 lbs 06/29/2016 Blood Pressure 1: 124/60 Code: 8480-6 BMI: 38.7 Code: 15144-8 Heart Rate 1: 71 bpm Height: 5'6" SpO2: 98% Weight: 240 lbs 06/01/2016 Blood Pressure 1: 120/62 Code: 8480-6 BMI: 38.6 Code: 48720-1 Heart Rate 1: 76 bpm Height: 5'6" SpO2: 98% Weight: 239 lbs 05/11/2016 Blood Pressure 1: 140/80 Code: 8480-6 BMI: 38.1 Code: 38322-4 Heart Rate 1: 88 bpm Height: 5'6" SpO2: 97% Weight: 236 lbs 04/05/2016 Blood Pressure 1: 142/80 Code: 8480-6 BMI: 38.4 Code: 54247-4 Heart Rate 1: 96 bpm Height: 5'6" SpO2: 98% Weight: 238 lbs 04/01/2016 Blood Pressure 1: 136/88 Code: 8480-6 BMI: 39.2 Code: 02016-3 Heart Rate 1: 86 bpm Height: 5'6" SpO2: 96% Weight: 243 lbs 01/26/2016 Blood Pressure 1: 124/76 Code: 8480-6 BMI: 39.2 Code: 18031-1 Heart Rate 1: 76 bpm Height: 5'6" SpO2: 97% Weight: 243 lbs 12/21/2015 Blood Pressure 1: 120/64 Code: 8480-6 BMI: 37.0 Code: 29293-6 Heart Rate 1: 98 bpm Height: 5'6" SpO2: 97% Weight: 229 lbs 10/12/2015 Blood Pressure 1: 150/64 Code: 8480-6 BMI: 37.4 Code: 60459-4 Heart Rate 1: 70 bpm Height: 5'6" SpO2: 94% Weight: 232 lbs 08/24/2015 Blood Pressure 1: 128/74 Code: 8480-6 BMI: 36.8 Code: 06639-1 Heart Rate 1: 88 bpm Height: 5'6" SpO2: 94% Temperature: 36.8 (C ) / 98.3 (F) Weight: 228 lbs 06/01/2015 Blood Pressure 1: 134/68 Code: 8480-6 BMI: 36.0 Code: 16106-1 Heart Rate 1: 70 bpm Height: 5'6" SpO2: 98% Weight: 223 lbs 05/21/2015 Blood Pressure 1: 126/72 Code: 8480-6 BMI: 35.2 Code: 75624-5 Heart Rate 1: 63 bpm Height: 5'6" SpO2: 95% Weight: 218 lbs 5 oz 03/26/2015 Blood Pressure 1: 140/62 Code: 8480-6 BMI: 35.3 Code: 12362-9 Heart Rate 1: 68 bpm Height: 5'6" Weight: 219 lbs 03/11/2015 Blood Pressure 1: 130/80 Code: 8480-6 BMI: 34.9 Code: 13080-7 Heart Rate 1: 76 bpm Height: 5'6" Temperature: 37.1 (C ) / 98.7 (F) Weight: 216 lbs 12/11/2014 Blood Pressure 1: 134/62 Code: 8480-6 BMI: 34.2 Code: 53581-5 Heart Rate 1: 72 bpm Height: 5'6" Weight: 212 lbs 09/18/2014 Blood Pressure 1: 148/80 Code: 8480-6 BMI: 34.7 Code: 01495-7 Heart Rate 1: 68 bpm Height: 5'6" Weight: 215 lbs 07/31/2014 Blood Pressure 1: 124/72 Code: 8480-6 BMI: 36.2 Code: 63061-8 Heart Rate 1: 68 bpm Height: 5'6" [...] Severity mi ld 09/28/2016 None hypothyroid Quality drop [place] hand jamee 09/28/2016 None hypothyroid Onset and Resolution [...] Severity mi ld 06/01/2016 None hypothyroid Quality drop [employer] hand jamee 06/01/2016 None hypothyroid Onset and Resolution [...] and Resolution resolved 04/05/2016 None hypothyroid Quality drop [employer] hand jamee 04/05/2016 None hypothyroid Onset and Resolution [...] a ssociated factors 10/12/2015 None hypothyroid Quality drop [employer] hand jamee 08/24/2015 None hypothyroid Onset and Resolution [...] Severity mod erate 06/01/2015 None hypothyroid Quality drop [employer] hand jamee 05/21/2015 None hypothyroid Onset of Symptom [...] Findings brittle nails 03/11/2015 None hypothyroid Quality drop [place] hand jamee 03/11/2015 None hypothyroid Quality stab le [...] Encounters Encounter Performer Loca tion Codes Date ([id number]) 84875 EST. [facility] Diagnosis: Mild intermittent asthma, uncomplicated[ICD10: J45.20] Diagnosis: Hypothyroidism, unspecified[ICD10: E03.9] Diagnosis: Low back pain[ICD10: M54.5] Lynn Finn MD, [facility] CPT- 4: 18653 01/22/2019 ([id number]) Edgar watkins no charge Diagnosis: Essential (primary) hypertension[ICD10: I10] Damari Finn MD, [facility] CPT-4: 61932 11/21/2018 ([id number]) 06121 EST. [facility], LEVEL IV Diagnosis: Essential (primary) hypertension[ICD10: I10] Diagnosis: Hypothyroidism, unspecified[ICD10: E03.9] Diagnosis: Low back pain[ICD10: M54.5] Lynn Finn MD, [facility] CPT- 4: 73198 10/30/2018 ([id number]) 26853 EST. [facility], LEVEL III Diagnosis: Acute recurrent maxillary sinusitis[ICD10: J01.01] Diagnosis: Other mucopurulent conjunctivitis, left eye[ICD10: H10.022] Diagnosis: Other allergic rhinitis[ICD10: J30.89] Lynn Finn MD, [facility] CPT-4: 38861 06/28/2018 [id number] EST. PATIENT, LEVEL IV Diagnosis: Essential (primary) hypertension[ICD10: I10] Diagnosis: Other specified hypothyroidism[ICD10: E03.8] Diagnosis: Other specified anemias[ICD10: D64.89] Diagnosis: Localized edema[ICD10: R60.0] Mishel Finn MD, [facility] CPT-4: 36952 04/04/2018 ([id number]) 85773 EST. P ATIENT, LEVEL III Diagnosis: Mild persistent asthma, uncomplicated[ICD10: J45.30] Diagnosis: Actinic keratosis[ICD10: L57.0] Lynn Finn MD, [facility] CPT- 4: 75206 01/05/2018 ([id number]) Miscellaneou s no charge Diagnosis: Essential (primary) hypertension[ICD10: I10] Damari Finn MD, [facility] CPT-4: 13864 12/12/2017 61796 EST. PATIENT, LEVEL III Diagnosis: Essential (primary) hypertension[ICD10: I10] Diagnosis: Atrophy of thyroid (acquired)[ICD10: E03.4] Diagnosis: Low back pain[ICD10: M54.5] Mishel Finn MD, [facility] CPT-4: 55016 11/29/2017 18196 EST. PATIENT, LEVEL III Diagnosis: Pain in left hip[ICD10: M25.552] Mishel Finn MD, [facility] CPT-4: 40582 10/25/2017 [id number] EST. PATIENT, LEVEL IV Diagnosis: Localized edema[ICD10: R60.0] Mishel Finn MD, [facility] CPT-4: 36261 09/12/2017 99367 EST. PATIENT, LEVEL IV Diagnosis: Mild persistent asthma with (acute) exacerbation[ICD10: J45.31] Mishel Finn MD, [facility] CPT-4: 56604 06/14/2017 72361 EST. PATIENT, LEVEL III Diagnosis: Localized edema[ICD10: R60.0] Diagnosis: Mild persistent asthma, uncomplicated[ICD10: J45.30] Mishel Finn MD, [facility] CPT-4: 11658 05/10/2017 47043 EST. PATIENT, LEVEL III Diagnosis: Mild persistent asthma with (acute) exacerbation[ICD10: J45.31] Mishel Finn MD, [facility] CPT-4: 95162 04/19/2017 ([id number]) 74100 EST. P ATIENT, LEVEL IV Diagnosis: Contusion of left wrist, initial encounter[ICD10: S60.212A] Diagnosis: Hypothyroidism, unspecified[ICD10: E03.9] Diagnosis: Mild persistent asthma with (acute) exacerbation[ICD10: J45.31] Diagnosis: Low back pain[ICD10: M54.5] Lynn Finn MD, [facility] CPT- 4: 90150 03/27/2017 ([id number]) 10727 EST. P ATIENT, LEVEL IV Diagnosis: Essential (primary) hypertension[ICD10: I10] Diagnosis: Atrophy of thyroid (acquired)[ICD10: E03.4] Diagnosis: Low back pain[ICD10: M54.5] Damari Finn MD, [facility] CPT-4: 79166 01/26/2017 90836 EST. PATIENT, LEVEL III Diagnosis: Other allergic rhinitis[ICD10: J30.89] Diagnosis: Mild persistent asthma with (acute) exacerbation[ICD10: J45.31] Mishel Finn MD, [facility] CPT-4: 61104 12/07/2016 74926 EST. PATIENT, LEVEL III Diagnosis: Mild persistent asthma with (acute) exacerbation[ICD10: J45.31] Mishel Finn MD, [facility] CPT-4: 59888 11/28/2016 93939 EST. PATIENT, LEVEL III Diagnosis: Mild persistent asthma with (acute) exacerbation[ICD10: J45.31] Diagnosis: Acute bronchitis due to other specified organisms[ICD10: J20.8] Mishel Finn MD, [facility] CPT-4: 97716 11/15/2016 52436 EST. PATIENT, LEVEL IV Diagnosis: Other acute sinusitis[ICD10: J01.80] Diagnosis: Other allergic rhinitis[ICD10: J30.89] Diagnosis: Mild persistent asthma with (acute) exacerbation[ICD10: J45.31] Mishel Finn MD, [facility] CPT-4: 41590 10/17/2016 ([id number]) 72894 EST. P ATIENT, LEVEL IV Diagnosis: Essential (primary) hypertension[ICD10: I10] Diagnosis: Low back pain[ICD10: M54.5] Damari Finn MD, [facility] CPT-4: 66189 09/28/2016 13000 EST. PATIENT, LEVEL III Diagnosis: Tinea barbae and tinea capitis[ICD10: B35.0] Diagnosis: Other specified hypothyroidism[ICD10: E03.8] Mishel Finn MD, [facility] CPT-4: 03434 06/29/2016 ([id number]) 75446 EST. P ATIENT, LEVEL IV Diagnosis: Essential (primary) hypertension[ICD10: I10] Diagnosis: Atrophy of thyroid (acquired)[ICD10: E03.4] Diagnosis: Rash and other nonspecific skin eruption[ICD10: R21] Damari Finn MD, [facility] CPT-4: 36048 06/01/2016 ([id number]) 91184 EST. P ATIENT, LEVEL III Diagnosis: Cellulitis of groin[ICD10: L03.314] Damari Finn MD, [facility] CPT- 4: 03305 05/11/2016 ([id number]) 92216 EST. P ATIENT, LEVEL IV Diagnosis: Hypothyroidism, unspecified[ICD10: E03.9] Diagnosis: Candidiasis of vulva and vagina[ICD10: B37.3] Diagnosis: Essential (primary) hypertension[ICD10: I10] Diagnosis: Low back pain[ICD10: M54.5] Lynn Finn MD, [facility] CPT- 4: 53597 04/05/2016 64709 EST. PATIENT, LEVEL III Diagnosis: Other acute sinusitis[ICD10: J01.80] Diagnosis: Rash and other nonspecific skin eruption[ICD10: R21] Mishel Finn MD, [facility] CPT-4: 80581 04/01/2016 ([id number]) 05686 EST. P ATIENT, LEVEL IV Diagnosis: Essential (primary) hypertension[ICD10: I10] Diagnosis: Hypothyroidism, unspecified[ICD10: E03.9] Diagnosis: Low back pain[ICD10: M54.5] Diagnosis: Other obesity due to excess calories[ICD10: E66.09] Lynn Finn MD, [facility] CPT-4: 80815 01/26/2016 00736 EST. PATIENT, LEVEL IV Diagnosis: Essential (primary) hypertension[ICD10: I10] Diagnosis: Cutaneous abscess of face[ICD10: L02.01] Mishel Finn MD, [facility] CPT-4: 53883 12/21/2015 ([id number]) 56691 EST. P ATIENT, LEVEL III Diagnosis: Cutaneous abscess of groin[ICD10: L02.214] Diagnosis: Hypothyroidism, unspecified[ICD10: E03.9] Lynn Finn MD, [facility] CPT-4: 33787 10/12/2015 ([id number]) 32131 EST. P ATIENT, LEVEL III Diagnosis: Essential (primary) hypertension[ICD10: I10] Diagnosis: Hypothyroidism, unspecified[ICD10: E03.9] Diagnosis: Allergic rhinitis, unspecified[ICD10: J30.9] Lynn Finn MD, [facility] CPT-4: 30262 08/24/2015 ([id number]) 79260 EST. P ATIENT, LEVEL III Diagnosis: Skin infection[ICD9: 686.9] Damari Finn MD, [facility] CPT-4: 22805 06/01/2015 ([id number]) 07687 EST. P ATIENT, LEVEL III Diagnosis: Hypothyroidism[ICD9: 244.9] Diagnosis: ESSENTIAL HYPERTENSION[ICD9: 401.9] Damari Finn MD, [facility] CPT- 4: 87133 05/21/2015 ([id number]) 41744 EST. P ATIENT, LEVEL III Diagnosis: Hypothyroidism[ICD9: 244.9] Diagnosis: Fingernail abnormalities[ICD9: 703.8] [facility] CPT-4: 41760 03/26/2015 ([id number]) 24173 EST. P ATIENT, LEVEL II Diagnosis: Hypothyroidism[ICD9: 244.9] [facility] CPT-4: 73282 03/11/2015 ([id number]) 65553 EST. P ATIENT, LEVEL IV Diagnosis: ESSENTIAL HYPERTENSION[ICD9: 401.9] Diagnosis: Low back pain[ICD9: 724.2] Diagnosis: Hypothyroidism[ICD9: 244.9] [facility] CPT-4: 70200 12/11/2014 [id number]) 51655 EST. P ATIENT, LEVEL IV Diagnosis: Hidradenitis suppurativa[ICD9: 705.83] Diagnosis: ESSENTIAL HYPERTENSION[ICD9: 401.9] Diagnosis: Low back pain[ICD9: 724.2] Diagnosis: Lumbar spinal stenosis[ICD9: 724.02] Diagnosis: HYPOTHYROIDISM[ICD9: 244.9] [facility] CPT-4: 60211 09/18/2014 Office outpatient ne w 30 minutes Diagnosis: ESSENTIAL HYPERTENSION[ICD9: 401.9] Diagnosis: Hypothyroidism[ICD9: 244.9] Diagnosis: Low back pain[ICD9: 724.2] [facility] CPT- 4: 93568 07/31/2014 Plan of Care Planned Activity Notes [...] medical practice. 01/22/2019 Appointment: Lynn Arenas WPtel: [address] [place], [place] [phone] (30 min) [facility] 01/22/2019 Patient Education: Patient Medication Summary Completed [...] indicated 10/30/2018 Appointment: Lynn Arenas WPtel: [phone] [phone] (30 min) Complex 10/30/2018 Patient Education: Patient Medication Summary Completed 10/30/2018 Patient Education: Hypertension Completed 10/30/2018 Patient Education: Back Pain Completed 10/30/2018 Appointment: Lynn Arenas WPtel: [phone] [phone] [place] (30 min) Complex 10/26/2018 Patient Education: Patient Medication Summary Completed 10/23/2018 Appointment: Lynn Arenas WPtel: [phone] [phone] (15 min) Moderate 10/19/2018 [facility]: [phone] (15 min) Moderate 09/19/2018 Visit Plan: [...] times daily. 06/28/2018 Appointment: Lynn Arenas WPtel: [address] [place], [place] [phone] (30 min) Complex 06/28/2018 Patient Education: Patient [...] monitor. 04/04/2018 Appointment: Mishel Balderrama WPtel: [phone] [facility] (15 min) Moderate 04/04/2018 Patient Education: Patient Medication Summary Completed 04/04/2018 Visit Plan: Wound Instructions - Pt was instructed to keep the wound clean, wash with antibacterial soap, use triple antibiotic ointment, call if redness, pustular drainage, or any other acute concerns. 01/19/2018 Appointment: Lynn Arenas WPtel: [phone] [phone] (30 min) Complex 01/19/2018 Patient [...] concerns. 01/05/2018 Appointment: Lynn Arenas WPtel: [phone] [phone] (30 min) Complex 01/05/2018 Patient [...] improve. 11/29/2017 Appointment: [phone] (30 min) Complex 11/29/2017 Patient Education: [...] improve. 10/25/2017 Appointment: Mishel Balderrama [facility]Ptel[phone] [place] (30 min) Complex 10/25/2017 Patient [...] edema. 09/12/2017 Appointment: Mishel Balderrama [facility]Ptel[phone] [facility] [place] (30 min) Complex 09/12/2017 Patient Education: Patient Medication Summary Completed 09/12/2017 Appointment: Lynn Arenas WPtel: [phone] [phone] [place] (30 min) Complex 06/27/2017 [...] acute changes. 06/14/2017 Appointment: Mishel Balderrama WPtel[phone] [facility] [place] (15 min) Moderate 06/14/2017 Patient [...] acute changes 05/10/2017 Appointment: Mishel Balderrama WPtel[phone] [facility] [place] (15 min) Moderate 05/10/2017 Patient [...] changes. 04/19/2017 Appointment: Mishel Balderrama WPtel[phone] [facility] (15 min) Moderate 04/19/2017 Patient Education: [...] on previous levels of control. Low back foef-pevvkgc-vpegsl tramadol for prn use 03/27/2017 Appointment: Lynn Arenas WPtel: [phone] [phone] [place] (30 min) Complex 03/27/2017 Patient [...] not improve. 01/26/2017 Appointment: [phone] (15 min) Moderate 01/26/2017 Patient Education: [...] concerns. 12/07/2016 Appointment: Mishel Balderrama [facility]Ptel[phone] [facility] (15 min) Moderate 12/07/2016 Patient Education: [...] wheezing/asthma symptoms. 11/28/2016 Appointment: Mishel Balderrama WPtel: [facility] (15 min) Moderate 11/28/2016 Patient Education: Patient Medication Summary Completed 11/28/2016 Appointment: Mishel Balderrama WPtel: [facility]4 [facility] (15 min) Moderate 11/24/2016 Visit [...] changes. 11/15/2016 Appointment: Mishel Balderrama WPtel: [phone] [phone] (30 min) Complex 11/15/2016 Patient [...] changes. 10/17/2016 Appointment: Mishel Balderrama WPtel[facility] [phone] [facility] (30 min) Complex 10/17/2016 Patient Education: [...] tylenol 09/28/2016 Appointment: Dam[facility] Finn [facility]Ptel: [phone] (15 min) Moderate 09/28/2016 Patient Education: [...] of control. 06/29/2016 Appointment: Lynn Arenas WPtel: [phone] [phone] [place] (15 min) Moderate 06/29/2016 [...] for fluconazole 06/01/2016 Appointment: Damari Finn WPtel: [phone] [facility] (15 min) Moderate 06/01/2016 Patient Education: Patient Medication Summary Completed 06/01/2016 Patient Education: Obesity Completed 06/01/2016 Visit Plan: Cellulitis - continue w ith oral antibiotics as previously directed, return to clinic as previously directed, call for acute change in symptoms, worsening redness, warmth, discharge. 05/11/2016 Appointment: Damari Finn WPtel: [phone] [facility] [place] (15 min) Moderate 05/11/2016 Patient Education: Patient [...] any concerns. 04/01/2016 Appointment: Lynn Arenas WPtel: [facility]5 [facility] [place] [address] (30 min) Complex 04/01/2016 Patient Education: Patient Medication Summary Completed 04/01/2016 Patient Education: Obesity Completed 04/01/2016 Appointment: Lynn Arenas WPtel: [facility]5 [phone] (30 min) Complex 03/29/2016 Visit Plan: Hypertension [...] levels of control. Low back pain-refill tramadol Gytnc-qnvsdsceyv-kstzjusq resolved 01/26/2016 Appointment: Dagoberto Lynn WPtel: [phone] [phone] (30 min) Complex 01/26/2016 Patient Education: Patient Medication Summary Completed 01/26/2016 Patient Education: Obesity Completed 01/26/2016 Care Plan: BMI Above normal followup RADHA F-MGMT EDUC & TRAIN 1 PT Pending 01/26/2016 Care Plan: Referral Order SNOMED-CT : [id number] Pending 01/07/2016 Appointment: Dagoberto Lynn WPtel: [phone] [phone] (15 min) Moderate 12/24/2015 Visit Plan: [...] nor improving. 06/01/2015 Appointment: Damari Finn WPtel: [facility] (15 min) Moderate 06/01/2015 Patient Education: [...] refill tramadol 12/11/2014 Appointment: Damari Finn WPtel: [facility] follow up 12/11/2014 Patient Education: Patient Medication Summary Completed 12/11/2014 Patient Education: Hypertension Completed 12/11/2014 Appointment: Damari Finn WPtel: [facility]5 [place] [phone] [facility] follow up 11/27/2014 Visit Plan: Hidradenitis Suppurativ [...] to get her back MRI done at [facility] in [place] as that is where her specialist will be once we get her an appt with one of the local Neurosurgeons. 09/18/2014 Appointment: Damari Finn WPtel: [phone] Follow up 09/18/2014 Patient Education: Patient [...] scheduled 07/31/2014 Appointment: Lynn Arenas WPtel[phone] [place] New Patient 07/31/2014 Patient Education: Patient Medication Summary Completed 07/31/2014 Referral: Artur Daugherty she w ill be calling and making her appt Initiated Referral: Artur Daugherty Referral Initiated Instructions Comment Check thyroid on Feb. Will refill blood [...] referral to Dr. Daugherty. Will refer pt. will extend your pre dnisone. Increase the [...] is stable, monitor for acute changes . Low back pain, lef t hip pain, left buttock pain - the patient was instructed in appropriate posture, need for weight loss to alleviate abdominal obesity that is worsening the patient's back pain.. The pt is to use prn antiinflammatories to manage acute pain. The patient is to call the office if the pain is worsening or does not improve. bactroban ointment t o sore twice daily x 10 days also use the bactoban ointment to nares twice daily x 5 days . cellulitis/abscess of groin-use bactro ban ointment as needed -keep groin clean and dry-treat nares with bactroban ointment twice daily-call for acute s/s of infection Hypothyroidism-check dose at home-should be 175mcg daily and repeat labs in 3 months . Hypertension - wel l controlled - [...] pain is worsening or does not improve. claritin or zyrtec . Sinusitis - Pt [...] . Asthma Exacerbation - Asthma is a drop forge hand jamee problem for this patient, however, the [...] on previous levels of control. Low back fuqy-uhvuwyq-vkrmvn tramadol for prn use . Brittle fingernail [...] worsen, or with any questions or concerns. restart lisinopril/h CTZ - this will help [...] Anemia - will continue to monitor. . Hypertension - wel l controlled - [...] levels of control. Low back pain-refill tramadol Xzpei-cvexpkpnpe-axgyfcja resolved . Edema - pt has bee n [...] to further attempt to reduce peripheral edema. Declined Procedure: (57791) FLU VAC NO PRSV 4 JUSTYNA 3 [...] Pt to call if nor improving. . Asthma - chronic p roblem for [...] . Asthma Exacerbation - Asthma is a drop forge hand jamee problem for this patient, however, the [...] . Asthma Exacerbation - Asthma is a drop forge hand jamee problem for this patient, however, the [...] drainage, or any other acute concerns. . Asthma Exacerbatio n - Asthma is [...] is stable, monitor for acute changes. . Sinusitis - Pt has acute infection [...] to get her back MRI done at [facility] in [place] as that is where her specialist will [...]
--- OUTSIDE RECORDS SUMMARY | 2020-02-20 19:00 | XMS REPORT | CCD ---
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 Unknown Has never used illegal drugs 014 Allergies, Adverse Reactions, Alerts Substance Reaction Codes Entered Date Inactivated Date Status * NO KNOWN FOOD BEVERLY RGIES Unknown 07/31/2014 No Inactive Date Active bactrim hives, rash RxNorm: 913384 04/05/2016 No Inactive Date Active Past Medical [...] Fill Instructions lorazepam 1 mg tablet RxNorm: 106107 Tablet(s) TAKE TWO TABLETS BY MOUTH AT B EDTIME NEEDED FOR INSOMNIA AND ONE TABLET DAILY NEEDED ANXIETY 01/04/2019 03/03/2019 Active Keflex 500 mg capsule RxNorm: 279895 1 Capsule(s) PO TID 12/05/2018 12/11/2018 Inactive tramadol 50 mg tablet RxNorm: 382501 1 Tablet(s) PO Q4 PRN as needed for pain 12/05/2018 01/13/2019 In active ciprofloxacin 0.3 % eye drops RxNorm: 539916 INSTILL TWO DROPS TO THE AFFECTED EYE(S) THREE TIMES A DAY 11/23/2018 12/25/2018 Inactive levothyroxine 137 mc g tablet RxNorm: 687491 1 Tablet(s) PO daily TAKE ONE TABLET BY MOUTH DAILY ON AN EMPTY STOMACH 10/30/2018 01/22/2020 Active ProAir HFA 90 mcg/ac tuation aerosol inhaler RxNorm: 4238120 1-2 Puff(s) INH Q4 P RN INHALE 1 TO 2 PUFFS FOUR TIMES A DAY NEEDED FOR ASTHMA 10/30/2018 01/27/2019 Inactive tramadol 50 mg tablet RxNorm: 056271 1 Tablet(s) PO Q4 PRN as needed for pain 10/29/2018 12/04/2018 In active levothyroxine 125 mc g tablet RxNorm: 226561 1 Tablet(s) PO daily TAKE ONE TABLET BY MOUTH DAILY ON AN EMPTY STOMACH 09/06/2018 10/29/2018 Inactive lorazepam 1 mg tablet RxNorm: 748513 Tablet(s) TAKE TWO TABLETS BY MOUTH AT B EDTIME NEEDED FOR INSOMNIA AND ONE TABLET DAILY NEEDED ANXIETY 09/06/2018 11/02/2018 Inactive tramadol 50 mg tablet RxNorm: 153850 1 Tablet(s) PO Q4 PRN as needed for pain 09/06/2018 10/15/2018 In active tramadol 50 mg tablet RxNorm: 845708 1 Tablet(s) PO Q4 PRN as needed for pain 07/06/2018 08/14/2018 In active ciprofloxacin 0.3 % eye drops RxNorm: 237343 2 Drop(s) ophthalmic (eye) TID 06/28/2018 07/07/2018 In active lorazepam 1 mg tablet RxNorm: 206669 Tablet(s) TAKE TWO TABLETS BY MOUTH AT B EDTIME NEEDED FOR INSOMNIA AND ONE TABLET DAILY NEEDED ANXIETY 06/28/2018 08/26/2018 Inactive doxycycline hyclate 100 mg tablet RxNorm: 6323789 1 Tablet(s) PO BID 06/28/2018 07/04/2018 Inactive tramadol 50 mg tablet RxNorm: 313884 1 Tablet(s) PO Q4 PRN as needed for pain 06/13/2018 07/05/2018 In active lorazepam 1 mg tablet RxNorm: 608672 Tablet(s) TAKE TWO TABLETS BY MOUTH AT B EDTIME NEEDED FOR INSOMNIA AND ONE TABLET DAILY NEEDED ANXIETY 05/23/2018 06/27/2018 Inactive tramadol 50 mg tablet RxNorm: 497527 1 Tablet(s) PO Q4 PRN as needed for pain 05/23/2018 06/12/2018 In active levothyroxine 125 mc g tablet RxNorm: 970707 Tablet(s) TAKE ONE TA BLET BY MOUTH DAILY ON AN EMPTY STOMACH 05/23/2018 09/05/2018 Inactive tramadol 50 mg tablet RxNorm: 811679 1 Tablet(s) PO Q4 PRN as needed for pain 05/17/2018 05/22/2018 In active levothyroxine 125 mc g tablet RxNorm: 466710 TAKE ONE TABLET BY MO UT DAILY 05/15/2018 06/27/2018 In active levothyroxine 125 mc g tablet RxNorm: 717697 TAKE ONE TABLET BY MO UTH DAILY 05/15/2018 06/27/2018 In active tramadol 50 mg tablet RxNorm: 380776 1 Tablet(s) PO Q4 PRN as needed for pain 04/30/2018 05/16/2018 In active Advair Diskus 100 mc g-50 mcg/dose powder for inhalation RxNorm: 1940000 1 Puff(s) INH BID 04/06/2018 01/21/2019 Inactive Symbicort 80 mcg-4.5 mcg/actuation HFA aerosol inhaler RxNorm: 8409371 2 Puff(s) INH BID 04/06/2018 01/21/2019 Inactive Advair Diskus 250 mc g-50 mcg/dose powder for inhalation RxNorm: 9437433 1 Puff(s) INH BID 04/05/2018 09/01/2018 Inactive Zyrtec 10 mg tablet RxNorm: 1605233 1 Tablet(s) PO daily x1 week then PRN 04/05/2018 08/02/2018 In active lisinopril 20 mg-hyd rochlorothiazide 25 mg tablet RxNorm: 846427 Tablet(s) TAKE ONE TABLET BY MOUTH DAILY 04/05/2018 10/29/2018 Inactive Zyrtec 10 mg tablet RxNorm: 7125783 1 Tablet(s) PO daily 04/04/2018 05/03/2018 Inactive tramadol 50 mg tablet RxNorm: 240284 1 Tablet(s) PO Q4 PRN as needed for pain 03/13/2018 04/21/2018 In active lorazepam 1 mg tablet RxNorm: 950032 Tablet(s) TAKE TWO TABLETS BY MOUTH AT B EDTIME NEEDED FOR INSOMNIA AND ONE TABLET DAILY NEEDED ANXIETY 03/02/2018 04/30/2018 Inactive levothyroxine 125 mc g tablet RxNorm: 416926 1 Tablet(s) PO daily 02/06/2018 05/06/2018 Inactive levothyroxine 125 mc g tablet RxNorm: 896431 TAKE ONE TABLET BY MO [facility] DAILY ON AN EMPTY STOMACH 02/06/2018 05/22/2018 Inactive tramadol 50 mg tablet RxNorm: 286139 1 Tablet(s) PO Q4 PRN as needed for pain 01/26/2018 03/06/2018 In active lorazepam 1 mg tablet RxNorm: 591798 Tablet(s) TAKE TWO TABLETS BY MOUTH AT B EDTIME NEEDED FOR INSOMNIA AND ONE TABLET DAILY NEEDED ANXIETY 01/23/2018 06/27/2018 Inactive Symbicort 80 mcg-4.5 mcg/actuation HFA aerosol inhaler RxNorm: 4207738 INH 01/05/2018 06/27/2018 In active tramadol 50 mg tablet RxNorm: 908695 1 Tablet(s) PO Q4 PRN as needed for pain 01/04/2018 01/25/2018 In active Advair Diskus 250 mc g-50 mcg/dose powder for inhalation RxNorm: 3038997 1 Puff(s) INH BID 11/29/2017 03/28/2018 Inactive hydrochlorothiazide 12.5 mg tablet RxNorm: 288059 1 Tablet(s) PO daily 11/29/2017 12/28/2017 In active tramadol 50 mg tablet RxNorm: 195172 1 Tablet(s) PO Q4 PRN as needed for pain 11/23/2017 01/01/2018 In active tramadol 50 mg tablet RxNorm: 962283 1 Tablet(s) PO Q4 PRN as needed for pain 10/06/2017 11/14/2017 In active lorazepam 1 mg tablet RxNorm: 614612 Tablet(s) TAKE TWO TABLETS BY MOUTH AT B EDTIME NEEDED FOR INSOMNIA AND ONE TABLET DAILY NEEDED ANXIETY 09/12/2017 06/27/2018 Inactive tramadol 50 mg tablet RxNorm: 008675 1 Tablet(s) PO Q4 PRN as needed for pain 09/12/2017 10/05/2017 In active tramadol 50 mg tablet RxNorm: 196967 1 Tablet(s) PO Q4 PRN as needed for pain 08/15/2017 09/11/2017 In active tramadol 50 mg tablet RxNorm: 705337 1 Tablet(s) PO Q4 PRN as needed for pain 06/29/2017 08/07/2017 In active ProAir HFA 90 mcg/ac tuation aerosol inhaler RxNorm: 2757841 INHALE 1 TO 2 PUFFS FOUR TIMES A DAY NEEDED FOR ASTHMA 06/14/2017 11/10/2017 Inactive prednisone 20 mg tablet RxNorm: 397854 1 Tablet(s) PO BID x 2 days, then 1 pill daily x 3 days, then 1/2 pill every other day x 3 doses. 06/14/2017 09/11/2017 Inactive Kenalog 40 mg/mL madhavi pension for injection RxNorm: 6751728 1 Milliliter(s) Inj 06/14/2017 06/14/2017 In active Zyrtec 10 mg tablet RxNorm: 4696643 1 Tablet(s) PO daily 06/14/2017 07/13/2017 Inactive tramadol 50 mg tablet RxNorm: 309699 1 Tablet(s) PO Q4 PRN as needed for pain 06/08/2017 06/27/2017 In active [SAVINGS FOR UNINSURED PATIENTS -- BIN:0 40190, PCN: ASPROD1, Group: AME08, ID# [id number], Process claim through Values of n, for questions: . THIS IS NOT INSURANCE.] tramadol 50 mg tablet RxNorm: 297445 1 Tablet(s) PO Q4 PRN as needed for pain 05/16/2017 06/04/2017 In active [SAVINGS FOR UNINSURED PATIENTS -- BIN:0 66674, PCN: ASPROD1, Group: [id number], ID# [id number], Process claim through [employer], for questions: . THIS IS NOT INSURANCE.] lorazepam 1 mg tablet RxNorm: 535636 Tablet(s) TAKE TWO TABLETS BY MOUTH AT B EDTIME NEEDED FOR INSOMNIA AND ONE TABLET DAILY NEEDED ANXIETY 05/16/2017 08/13/2017 Inactive Lasix 20 mg tablet RxNorm: 1 Tablet(s) PO daily 05/10/2017 05/09/2017 Inactive Lasix 20 mg tablet RxNorm: 1 Tablet(s) PO daily 05/10/2017 05/12/2017 Inactive potassium chloride E R 10 mEq tablet,extended release RxNorm: 322531 1 Tablet(s) PO daily while on the lasix 05/10/2017 05/09/2017 Inactive potassium chloride E R 10 mEq tablet,extended release RxNorm: 909890 1 Tablet(s) PO daily while on the lasix 05/10/2017 05/12/2017 Inactive prednisone 20 mg tablet RxNorm: 105308 1 Tablet(s) PO BID x 2 days, then 1 pill daily x 3 days, then 1/2 pill every other day x 3 doses. 04/19/2017 06/13/2017 Inactive Zithromax Z-Linus 250 mg tablet RxNorm: 523350 1 Tablet(s) PO UD 04/13/2017 06/28/2017 Inactive prednisone 20 mg tablet RxNorm: 026092 1 Tablet(s) PO BID 04/13/2017 04/17/2017 Inactive levothyroxine 125 mc g tablet RxNorm: 288423 1 Tablet(s) PO daily 04/11/2017 10/07/2017 Inactive tramadol 50 mg tablet RxNorm: 660247 1 Tablet(s) PO Q4 PRN as needed for pain 03/27/2017 04/15/2017 In active [SAVINGS FOR UNINSURED PATIENTS -- BIN:0 17597, PCN: ASPROD1, Group: [id number], ID# [id number], Process claim through [employer], for questions: . THIS IS NOT INSURANCE.] Kenalog 40 mg/mL madhavi pension for injection RxNorm: 7249096 1 Milliliter(s) Inj 03/27/2017 03/27/2017 In active tramadol 50 mg tablet RxNorm: 868946 1 Tablet(s) PO Q4H as needed for pain 03/09/2017 03/26/2017 In active [SAVINGS FOR UNINSURED PATIENTS -- BIN:0 64245, PCN: ASPROD1, Group: AME08, ID# [id number], Process claim through [employer], for questions: . THIS IS NOT INSURANCE.] lisinopril 20 mg-hyd rochlorothiazide 25 mg tablet RxNorm: 977063 TAKE ONE TABLET BY MOUTH DAILY 01/29/2017 11/21/2017 Inactive lorazepam 1 mg tablet RxNorm: 103046 Tablet(s) TAKE TWO TABLETS BY MOUTH AT B EDTIME NEEDED FOR INSOMNIA AND ONE TABLET DAILY NEEDED ANXIETY 01/05/2017 04/04/2017 Inactive tramadol 50 mg tablet RxNorm: 143205 1 Tablet(s) PO Q4H as needed for pain 12/07/2016 01/13/2017 In active [SAVINGS FOR UNINSURED PATIENTS -- BIN:0 89172, PCN: ASPROD1, Group: AME08, ID# [id number], Process claim through [employer], for questions: . THIS IS NOT INSURANCE.] Kenalog 40 mg/mL madhavi pension for injection RxNorm: 9038299 Milliliter(s) Inj 12/07/2016 12/07/2016 In active nystatin 100,000 uni t/mL oral suspension RxNorm: 336050 4 Milliliter(s) PO QI D 12/07/2016 12/11/2016 In active Francia-D 12 Hour 60 mg-120 mg tablet,extended release RxNorm: 303491 1 Tablet(s) PO BID 12/07/2016 01/11/2017 Inactive lorazepam 1 mg tablet RxNorm: 027919 Tablet(s) TAKE TWO TABLETS BY MOUTH AT B EDTIME AND ONE TABLET DAILY NEEDED 12/07/2016 01/04/2017 Inactive (Response to an electronic controlled substance refill request - RxReferenceNumber: [id number]) albuterol sulfate 2. 5 mg/3 mL (0.083 %) solution for nebulization RxNorm: 345850 3 Milliliter(s) INH TID 11/29/2016 11/28/2016 Inactive prednisone 10 mg tablet RxNorm: 351640 Tablet(s) PO UD 11/29/2016 12/05/2016 Inactive 6,5,4,3,2,1 doxycycline hyclate 100 mg tablet RxNorm: 261866 1 Tablet(s) PO BID 11/29/2016 12/04/2016 Inactive albuterol sulfate 2. 5 mg/3 mL (0.083 %) solution for nebulization RxNorm: 924285 3 Milliliter(s) INH TID 11/29/2016 12/03/2016 Inactive Kenalog 40 mg/mL madhavi pension for injection RxNorm: 5326613 Milliliter(s) Inj 11/28/2016 11/28/2016 In active tramadol 50 mg tablet RxNorm: 577946 1 Tablet(s) PO Q4H as needed for pain 11/15/2016 12/06/2016 In active [SAVINGS FOR UNINSURED PATIENTS -- BIN:0 43197, PCN: ASPROD1, Group: AME08, ID# [id number], Process claim through Values of n, for questions: . THIS IS NOT INSURANCE.] prednisone 20 mg tablet RxNorm: 620049 2 Tablet(s) PO daily 11/15/2016 11/19/2016 Inactive Advair Diskus 100 mc g-50 mcg/dose powder for inhalation RxNorm: 2620407 1 Puff(s) INH BID 11/15/2016 06/11/2017 Inactive ProAir HFA 90 mcg/ac tuation aerosol inhaler RxNorm: 054492 INHALE 1 TO 2 PUFFS F OUR TIMES A DAY NEEDED FOR ASTHMA 11/15/2016 04/13/2017 Inactive Zithromax Z-Linus 250 mg tablet RxNorm: 679228 1 Tablet(s) PO UD 11/15/2016 11/27/2016 Inactive Zyrtec 10 mg tablet RxNorm: 8931814 1 Tablet(s) PO daily 10/17/2016 11/15/2016 Inactive Keflex 500 mg capsule RxNorm: 187806 1 Capsule(s) PO TID 10/17/2016 10/23/2016 Inactive prednisone 10 mg tablet RxNorm: 726383 Tablet(s) PO UD 10/17/2016 11/28/2016 Inactive 6,5,4,3,2,1 tramadol 50 mg tablet RxNorm: 667697 1 Tablet(s) PO Q4H as needed for pain 09/28/2016 11/06/2016 In active [SAVINGS FOR UNINSURED PATIENTS -- BIN:0 08886, PCN: ASPROD1, Group: AME08, ID# [id number], Process claim through Values of n, for questions: . THIS IS NOT INSURANCE.] ProAir HFA 90 mcg/ac tuation aerosol inhaler RxNorm: 724009 INHALE 1 TO 2 PUFFS F OUR TIMES A DAY NEEDED FOR ASTHMA 09/15/2016 11/14/2016 Inactive doxycycline hyclate 100 mg tablet RxNorm: 385395 1 Tablet(s) PO BID 09/15/2016 09/24/2016 Inactive doxycycline hyclate 100 mg tablet RxNorm: 768176 1 Tablet(s) PO BID 07/29/2016 08/07/2016 Inactive tramadol 50 mg tablet RxNorm: 555452 1 Tablet(s) PO Q4H as needed for pain 07/29/2016 09/06/2016 In active [SAVINGS FOR UNINSURED PATIENTS -- BIN:0 73408, PCN: ASPROD1, Group: AME08, ID# [id number], Process claim through Values of n, for questions: . THIS IS NOT INSURANCE.] lorazepam 1 mg tablet RxNorm: 766832 Tablet(s) TAKE TWO TABLETS BY MOUTH AT B EDTIME AND ONE TABLET DAILY NEEDED 07/29/2016 10/26/2016 Inactive (Response to an electronic controlled substance refill request - RxReferenceNumber: [id number]) levothyroxine 125 mc g tablet RxNorm: 522730 1 Tablet(s) PO daily 06/29/2016 06/29/2016 Inactive levothyroxine 137 mc g tablet RxNorm: 616102 1 Tablet(s) PO daily 06/29/2016 12/25/2016 Inactive ketoconazole 2 % sha mpoo RxNorm: 041223 1 Application TOP BID 06/29/2016 07/03/2016 Inactive tramadol 50 mg tablet RxNorm: 770692 1 Tablet(s) PO Q4H as needed for pain 06/16/2016 07/25/2016 In active [SAVINGS FOR UNINSURED PATIENTS -- BIN:0 38704, PCN: ASPROD1, Group: [id number], ID# [id number], Process claim through Values of n, for questions: . THIS IS NOT INSURANCE.] Bactroban 2 % topica l ointment RxNorm: 797592 APPLY TO AFFECTED ARE A(S) TWO TIMES A DAY 06/16/2016 04/16/2017 Inactive fluconazole 150 mg t ablet RxNorm: 628878 1 Tablet(s) PO daily 06/01/2016 06/05/2016 Inactive gentamicin 0.1 % top ical ointment RxNorm: 165626 1 Application TOP QID 05/12/2016 05/25/2016 In active metronidazole 500 mg tablet RxNorm: 612333 1 Tablet(s) PO TID 05/11/2016 05/24/2016 Inactive gentamicin 0.1 % top ical ointment RxNorm: 631783 1 Application TOP QID 05/11/2016 05/11/2016 In active doxycycline hyclate 100 mg tablet RxNorm: 165954 1 Tablet(s) PO BID 05/11/2016 05/24/2016 Inactive lorazepam 1 mg tablet RxNorm: 597100 Tablet(s) TAKE TWO TABLETS BY MOUTH AT B EDTIME AND ONE TABLET DAILY NEEDED 05/02/2016 07/28/2016 Inactive (Response to an electronic controlled substance refill request - RxReferenceNumber: [id number]) Diflucan 150 mg tablet RxNorm: 017091 1 Tablet(s) PO daily x5 days then 1 x we ekly x 4 weeks. 05/02/2016 04/10/2017 Inactive Diflucan 150 mg tablet RxNorm: 092119 1 Tablet(s) PO every other day 04/19/2016 04/28/2016 In active Diflucan 150 mg tablet RxNorm: 549703 1 Tablet(s) PO every other day 04/19/2016 04/18/2016 In active Diflucan 150 mg tablet RxNorm: 017648 1 Tablet(s) PO daily 04/05/2016 04/11/2016 Inactive mupirocin 2 % topica l ointment RxNorm: 844639 1 Application TOP BID 04/05/2016 05/04/2016 Inactive tramadol 50 mg tablet RxNorm: 407847 1 Tablet(s) PO Q4H as needed for pain 04/05/2016 05/14/2016 In active [SAVINGS FOR UNINSURED PATIENTS -- BIN:0 41628, PCN: ASPROD1, Group: AME08, ID# [id number], Process claim through Values of n, for questions: . THIS IS NOT INSURANCE.] prednisone 10 mg tablet RxNorm: 467750 Tablet(s) PO UD 04/01/2016 09/26/2016 Inactive 6,5,4,3,2,1 levothyroxine 137 mc g tablet RxNorm: 136281 1 Tablet(s) PO daily 03/21/2016 03/20/2016 Inactive levothyroxine 137 mc g tablet RxNorm: 707221 1 Tablet(s) PO daily 03/21/2016 06/28/2016 Inactive Advair Diskus 100 mc g-50 mcg/dose powder for inhalation RxNorm: 5826506 1 Puff(s) INH BID 01/26/2016 05/24/2016 Inactive tramadol 50 mg tablet RxNorm: 522727 1 Tablet(s) PO Q4H as needed for pain 01/26/2016 03/05/2016 In active [SAVINGS FOR UNINSURED PATIENTS -- BIN:0 09108, PCN: ASPROD1, Group: [id number], ID# [id number], Process claim through [employer], for questions: . THIS IS NOT INSURANCE.] Bactroban 2 % topica l ointment RxNorm: 484018 APPLY TO AFFECTED ARE A(S) TWO TIMES A DAY 12/22/2015 12/31/2015 Inactive Bactrim DS 800 mg-16 0 mg tablet RxNorm: 476129 TAKE ONE TABLET BY [facility] TWICE A DAY 12/22/2015 04/18/2016 In active Bactrim DS 800 mg-16 0 mg tablet RxNorm: 388642 1 Tablet(s) PO BID 12/21/2015 01/21/2019 Inactive lisinopril 20 mg-hyd rochlorothiazide 25 mg tablet RxNorm: 607401 1 Tablet(s) PO daily 12/21/2015 06/17/2016 Inactive [SAVINGS FOR UNINSURED PATIENTS -- BIN:0 77126, PCN: ASPROD1, Group: AME08, ID# [id number], Process claim through [employer], for questions: . THIS IS NOT INSURANCE.] tramadol 50 mg tablet RxNorm: 146991 1 Tablet(s) PO Q4H as needed for pain 12/03/2015 01/11/2016 In active [SAVINGS FOR UNINSURED PATIENTS -- BIN:0 62355, PCN: ASPROD1, Group: AME08, ID# [id number], Process claim through [employer], for questions: . THIS IS NOT INSURANCE.] lorazepam 1 mg tablet RxNorm: 232280 Tablet(s) TAKE TWO TABLETS BY MOUTH AT B EDTIME AND ONE TABLET DAILY NEEDED 11/26/2015 06/27/2018 Inactive (Response to an electronic controlled substance refill request - RxReferenceNumber: [id number]) Bactrim DS 800 mg-16 0 mg tablet RxNorm: 444559 1 Tablet(s) PO BID 11/25/2015 12/04/2015 Inactive levothyroxine 150 mc g tablet RxNorm: 235708 1 Tablet(s) PO daily 11/25/2015 03/20/2016 Inactive Bactroban 2 % topica l ointment RxNorm: 382982 1 Application TOP BID 10/12/2015 10/21/2015 Inactive Bactrim DS 800 mg-16 0 mg tablet RxNorm: 820888 1 Tablet(s) PO BID 09/07/2015 09/06/2015 Inactive Bactrim DS 800 mg-16 0 mg tablet RxNorm: 456515 1 Tablet(s) PO BID 09/07/2015 09/16/2015 Inactive lorazepam 1 mg tablet RxNorm: 540040 Tablet(s) TAKE TWO TABLETS BY MOUTH AT B EDTIME AND ONE TABLET DAILY NEEDED 08/28/2015 11/24/2015 Inactive (Response to an electronic controlled substance refill request - RxReferenceNumber: [id number]) levothyroxine 175 mc g tablet RxNorm: 481905 1 Tablet(s) PO daily 08/24/2015 11/24/2015 Inactive tramadol 50 mg tablet RxNorm: 553535 1 Tablet(s) PO Q4H as needed for pain 08/24/2015 09/11/2017 In active [SAVINGS FOR UNINSURED PATIENTS -- BIN:0 29155, PCN: ASPROD1, Group: AME08, ID# [id number], Process claim through Values of n, for questions: . THIS IS NOT INSURANCE.] lisinopril 20 mg-hyd rochlorothiazide 25 mg tablet RxNorm: 943803 1 Tablet(s) PO daily TAKE 1 TABLET BY MOUTH DAILY 08/24/2015 06/27/2018 Inactive ProAir HFA 90 mcg/ac tuation aerosol inhaler RxNorm: 381911 1-2 Puff(s) INH PRN I NHALE ONE TO TWO PUFFS BY MOUTH FOUR TIMES A DAY NEEDED FOR ASTHMA 08/24/2015 12/01/2015 In active ProAir HFA 90 mcg/ac tuation aerosol inhaler RxNorm: 5097137 INHALE ONE TO TWO PU FFS BY MOUTH FOUR TIMES A DAY NEEDED FOR ASTHMA 08/17/2015 08/23/2015 Inactive Advair Diskus 250 mc g-50 mcg/dose powder for inhalation RxNorm: 0743836 1 Puff(s) INH BID 07/20/2015 07/19/2015 Inactive Advair Diskus 250 mc g-50 mcg/dose powder for inhalation RxNorm: 1784272 1 Puff(s) INH BID 07/20/2015 11/16/2015 Inactive tramadol 50 mg tablet RxNorm: 898614 1 Tablet(s) PO Q4H as needed for pain 07/10/2015 08/17/2015 In active [SAVINGS FOR UNINSURED PATIENTS -- BIN:0 61678, PCN: ASPROD1, Group: AME08, ID# [id number], Process claim through Values of n, for questions: . THIS IS NOT INSURANCE.] Zithromax Z-Linus 250 mg tablet RxNorm: 806893 1 Tablet(s) PO UD 07/10/2015 01/18/2016 Inactive Keflex 500 mg capsule RxNorm: 673212 1 Capsule(s) PO TID 06/01/2015 06/07/2015 Inactive mupirocin 2 % topica l ointment RxNorm: 409860 1 Application TOP TID 06/01/2015 06/10/2015 Inactive lisinopril 20 mg-hyd rochlorothiazide 25 mg tablet RxNorm: 308510 TAKE 1 TABLET BY MOUT H DAILY 05/30/2015 08/23/2015 Inactive lisinopril 20 mg-hyd rochlorothiazide 25 mg tablet RxNorm: 819159 1 Tablet(s) PO daily 05/29/2015 11/24/2015 Inactive [SAVINGS FOR UNINSURED PATIENTS -- BIN:0 35477, PCN: ASPROD1, Group: AME08, ID# [id number], Process claim through Values of n, for questions: . THIS IS NOT INSURANCE.] lorazepam 1 mg tablet RxNorm: 222041 Tablet(s) TAKE TWO TABLETS BY MOUTH AT B EDTIME AND ONE TABLET DAILY NEEDED 04/17/2015 07/13/2015 Inactive (Response to an electronic controlled substance refill request - RxReferenceNumber: [id number]) levothyroxine 200 mc g tablet RxNorm: 745457 1 Tablet(s) PO daily 03/12/2015 08/23/2015 Inactive [SAVINGS FOR UNINSURED PATIENTS -- BIN:0 02140, PCN: ASPROD1, Group: AME08, ID# [id number], Process claim through [employer], for questions: . THIS IS NOT INSURANCE.] lisinopril 20 mg-hyd rochlorothiazide 25 mg tablet RxNorm: 632417 1 Tablet(s) PO daily 03/11/2015 05/28/2015 Inactive [SAVINGS FOR UNINSURED PATIENTS -- BIN:0 19455, PCN: ASPROD1, Group: AME08, ID# [id number], Process claim through [employer], for questions: . THIS IS NOT INSURANCE.] levothyroxine 175 mc g tablet RxNorm: 854453 1 Tablet(s) PO daily 03/09/2015 03/11/2015 Inactive recheck blood in 3 months- THIS IS CORRE CT DOSAGE levothyroxine 175 mc g tablet RxNorm: 943673 1 Tablet(s) PO daily 03/09/2015 03/08/2015 Inactive recheck blood in 3 months levothyroxine 150 mc g tablet RxNorm: 292994 1 Tablet(s) PO daily 03/09/2015 03/08/2015 Inactive recheck blood in 3 months lorazepam 1 mg tablet RxNorm: 772367 TAKE TWO TABLETS BY MOUTH AT BEDTIME AND ONE TABLET DAILY NEEDED 12/25/2014 01/22/2015 Inactive (Response to an electronic controlled substance refill request - RxReferenceNumber: [id number]) lorazepam 1 mg tablet RxNorm: 710139 Tablet(s) TAKE TWO TABLETS BY MOUTH EVER Y NIGHT AT BEDTIME AND TAKE ONE TABLET BY MOUTH DAILY NEEDED 12/23/2014 12/25/2014 Inactive (Response to an electronic controlled [place] bstance refill request - RxReferenceNumber: [id number]) levothyroxine 150 mc g tablet RxNorm: 418794 1 Tablet(s) PO daily 12/12/2014 03/08/2015 Inactive recheck blood in 3 months Diflucan 150 mg tablet RxNorm: 800081 1 Tablet(s) PO every other day (start af ter finished with Cipro) 11/17/2014 08/23/2015 Inactive tramadol 50 mg tablet RxNorm: 354632 1 Tablet(s) PO Q4H as needed for pain 11/10/2014 12/17/2014 In active [SAVINGS FOR UNINSURED PATIENTS -- BIN:0 75043, PCN: ASPROD1, Group: AME08, ID# [id number], Process claim through Values of n, for questions: . THIS IS NOT INSURANCE.] Cipro 500 mg tablet RxNorm: 681616 1 Tablet(s) PO BID 10/23/2014 10/29/2014 Inactive Flagyl 500 mg tablet RxNorm: 603186 1 Tablet(s) PO TID 10/23/2014 10/29/2014 Inactive Cipro 500 mg tablet RxNorm: 895852 1 Tablet(s) PO BID 10/23/2014 10/22/2014 Inactive Flagyl 500 mg tablet RxNorm: 135223 1 Tablet(s) PO TID 10/23/2014 10/22/2014 Inactive Diflucan 150 mg tablet RxNorm: 008566 1 Tablet(s) PO every other day (start af ter finished with Cipro) 10/23/2014 11/16/2014 Inactive lorazepam 1 mg tablet RxNorm: 223443 TAKE TWO TABLETS BY MOUTH EVERY NIGHT AT BEDTIME AND TAKE ONE TABLET BY MOUTH DAILY NEEDED 10/21/2014 10/21/2014 Inactive (Response to an electronic controlled north bstance refill request - RxReferenceNumber: [id number]) lorazepam 1 mg tablet RxNorm: 015942 TAKE TWO TABLETS BY MOUTH EVERY NIGHT AT BEDTIME AND TAKE ONE TABLET BY MOUTH DAILY NEEDED 10/21/2014 11/18/2014 Inactive (Response to an electronic controlled north bstance refill request - RxReferenceNumber: [id number]) lorazepam 1 mg tablet RxNorm: 207954 Tablet(s) TAKE TWO TABLETS BY MOUTH AT B EDTIME, ALSO TAKE ONE TABLET BY MOUTH DAILY NEEDED 10/13/2014 10/21/2014 Inactive (Res ponse to an electronic controlled substance refill request - RxReferenceNumber: [id number]) ProAir HFA 90 mcg/ac tuation aerosol inhaler RxNorm: 3949614 1-2 inhale INH QID a s needed ASTHMA 10/13/2014 12/26/2014 Inactive ProAir HFA 90 mcg/ac tuation aerosol inhaler RxNorm: 8277111 1-2 inhale INH QID a s needed ASTHMA 09/18/2014 10/12/2014 Inactive meloxicam 7.5 mg tablet RxNorm: 027746 1 Tablet(s) PO daily 09/18/2014 03/10/2015 Inactive [SAVINGS FOR UNINSURED PATIENTS -- BIN:[id number], PCN: [id number], Group: [id number], ID# [id number], Process claim through [employer], for questions: . THIS IS NOT INSURANCE.] sulfamethoxazole 800 mg-trimethoprim 160 mg tablet RxNorm: 267382 1 Tablet(s) PO BID 09/18/2014 10/07/2014 Inactive levothyroxine 175 mc g tablet RxNorm: 353556 1 Tablet(s) PO daily 09/17/2014 12/11/2014 Inactive levothyroxine 175 mc g tablet RxNorm: 169538 1 Tablet(s) PO daily 09/17/2014 09/16/2014 Inactive lorazepam 1 mg tablet RxNorm: 968323 Tablet(s) TAKE TWO TABLETS BY MOUTH AT B EDTIME, ALSO TAKE ONE TABLET BY MOUTH DAILY NEEDED 09/12/2014 10/11/2014 Inactive (Res ponse to an electronic controlled substance refill request - RxReferenceNumber: [id number]) lorazepam 1 mg tablet RxNorm: 458342 TAKE TWO TABLETS BY MOUTH AT BEDTIME, AL SO TAKE ONE TABLET BY MOUTH DAILY NEEDED 09/08/2014 09/11/2014 Inactive (Res ponse to an electronic controlled substance refill request - RxReferenceNumber: [id number]) meloxicam 7.5 mg tablet RxNorm: 981599 1 Tablet(s) PO daily 09/01/2014 09/17/2014 Inactive [SAVINGS FOR UNINSURED PATIENTS -- BIN:0 99413, PCN: ASPROD1, Group: AME08, ID# [id number], Process claim through Values of n, for questions: . THIS IS NOT INSURANCE.] lisinopril 20 mg-hyd rochlorothiazide 25 mg tablet RxNorm: 572918 1 Tablet(s) PO daily 09/01/2014 12/29/2014 Inactive [SAVINGS FOR UNINSURED PATIENTS -- BIN:0 23269, PCN: ASPROD1, Group: AME08, ID# [id number], Process claim through MedImp[employer], for questions: . THIS IS NOT INSURANCE.] tramadol 50 mg tablet RxNorm: 391541 1 Tablet(s) PO Q4H as needed for pain 08/20/2014 11/07/2014 In active [SAVINGS FOR UNINSURED PATIENTS -- BIN:0 91286, PCN: ASPROD1, Group: AME08, ID# [id number], Process claim through MedImpact, for questions: . THIS IS NOT INSURANCE.] meloxicam 7.5 mg tablet RxNorm: 059775 1 Tablet(s) PO daily 08/14/2014 08/31/2014 Inactive [SAVINGS FOR UNINSURED PATIENTS -- BIN:0 90392, PCN: ASPROD1, Group: AME08, ID# [id number], Process claim through MedImp[employer], for questions: . THIS IS NOT INSURANCE.] lorazepam 1 mg tablet RxNorm: 139884 2 Tablet(s) PO QHS and 1 tab qd PRN 08/01/2014 09/08/2014 In active [SAVINGS FOR UNINSURED PATIENTS -- BIN:0 36865, PCN: ASPROD1, Group: AME08, ID# [id number], Process claim through MedImpact, for questions: . THIS IS NOT INSURANCE.] levothyroxine 200 mc g tablet RxNorm: 688968 1 Tablet(s) PO daily 07/31/2014 09/16/2014 Inactive [SAVINGS FOR UNINSURED PATIENTS -- BIN:0 10175, PCN: ASPROD1, Group: AME08, ID# [id number], Process claim through MedImpact, for questions: . THIS IS NOT INSURANCE.] lorazepam 1 mg tablet RxNorm: 566869 2 Tablet(s) PO QHS and 1 tab qd PRN No Start Date 07/31/2014 Inactive Phenergan VC-Codeine oral RxNorm: 939575 oral No S tart Date 11/26/2017 Inactive meloxicam 7.5 mg tablet RxNorm: 371302 1 Tablet(s) PO daily No Start Date 08/13/2014 Inactive lisinopril 20 mg-hyd rochlorothiazide 25 mg tablet RxNorm: 461077 1 Tablet(s) PO daily No Start Date 08/31/2014 Inactive levothyroxine 200 mc g tablet RxNorm: 119355 1 Tablet(s) PO daily No Start Date 07/30/2014 Inactive Diflucan 150 mg tablet RxNorm: 503390 1 Tablet(s) PO every other day No Start Date 10/22/2014 Inactive Zithromax Z-Linus 250 mg tablet RxNorm: 292093 1 Tablet(s) PO UD No Start Date 07/09/2015 Inactive tramadol 50 mg tablet RxNorm: 765657 1 Tablet(s) PO Q6 as needed No Start Date 08/19/2014 Inactive Medication Administered Medication Codes Instruc tions Start Date Status Kenalog 40 mg/mL suspension for injection RxNorm: 6803658 1Milliliter 06/14/2017 N o longer Active Kenalog 40 mg/mL suspension for injection RxNorm: 2742809 1Milliliter 03/27/2017 N o longer Active Kenalog 40 mg/mL suspension for injection RxNorm: 7539415 Milliliter 12/07/2016 No longer Active Kenalog 40 mg/mL suspension for injection RxNorm: 5152762 Milliliter 11/28/2016 No longer Active Immunizations Vaccine [...] (3rd IS) 1.49 uIU/mL 01/21/2019 Free T4 Ftq154 FREE T4 1.15 ng/dL 01/21/2019 Lipid Ord30 CHOL 231 mg/dL 10/24/2018 Lipid Ord30 HDL 56.0 mg/dl 10/24/2018 Lipid Ord30 TRIG 71 mg/dL 10/24/2018 Lipid Ord30 LDL 161 mg/dL 10/24/2018 Lipid Ord30 C/HDL 4.1 Ratio 10/24/2018 Comp Metabolic Ece750 NA 141 mEq/L 10/24/2018 Comp Metabolic Jpl659 K 3.7 mEq/L 10/24/2018 Comp Metabolic Wru457 CL 103 mEq/L 10/24/2018 Comp Metabolic Kwk800 CO2 30.0 mEq/L 10/24/2018 Comp Metabolic Yaq613 AN ION GAP 12 10/24/2018 Comp Metabolic Qqe507 GL UCOSE 98 mg/dL 10/24/2018 Comp Metabolic Aiw002 Cr eat 0.8 mg/dL 10/24/2018 Comp Metabolic Shn702 eG FR 71 ml/min/1.73m2 10/24 Comp Metabolic Mnj686 BUN 12 mg/dL 10/24/2018 Comp Metabolic Wdd916 B/ C Ratio 14.5 Ratio 10/24/2018 Comp Metabolic Jxt897 CA LCIUM 9.2 mg/dL 10/24/2018 Comp Metabolic Yvc474 AL K PHOS 76 U/L 10/24/2018 Comp Metabolic Fud959 T(SGOT) 12 U/L 10/24/2018 Comp Metabolic Gcl468 AL T(SGPT) 9 U/L 10/24/2018 Comp Metabolic Lcn026 BI LI T 0.5 mg/dL 10/24/2018 Comp Metabolic Rub065 AL BUMIN 4.3 g/dL 10/24/2018 Comp Metabolic Evr885 TP RO 6.5 g/dL 10/24/2018 Comp Metabolic Xxu295 GL OB 2.2 g/dL 10/24/2018 Comp Metabolic Boq352 A/ G Ratio 2.0 Ratio 10/24/2018 Comp Metabolic Rqb456 Os mo 281 mOsmo 10/24/2018 Free T4 Iwb227 FREE T4 0.76 ng/dL 10/24/2018 Cbc With [...] 30.5 pg 10/24/2018 Cbc With Differential Ord2 [place]% 8.4 % 10/24/2018 Cbc With Differential Ord2 [...] 1.71 K/ul 10/24/2018 Cbc With Differential Ord2 [place] ABS# 0.4 K/ul 10/24/2018 Cbc With Differential [...] 30.0 pg 04/04/2018 Cbc With Differential Ord2 [place]% 10.9 % 04/04/2018 Cbc With Differential Ord2 [...] 1.42 K/ul 04/04/2018 Cbc With Differential Ord2 [place] ABS# 0.6 K/ul 04/04/2018 Cbc With Differential Ord2 Eos ABS# 0.1 K/ul 04/04/2018 Cbc With Differential Ord2 Baso ABS# 0.0 K/ul 04/04/2018 Free T4 Ofo240 FREE T4 1.25 ng/dL 04/04/2018 Tsh Ord6 [...] 30.2 pg 11/28/2017 Cbc With Differential Ord2 [place]% 10.1 % 11/28/2017 Cbc With Differential Ord2 [...] 1.33 K/ul 11/28/2017 Cbc With Differential Ord2 [place] ABS# 0.5 K/ul 11/28/2017 Cbc With Differential Ord2 Eos ABS# 0.1 K/ul 11/28/2017 Cbc With Differential Ord2 Baso ABS# 0.0 K/ul 11/28/2017 Free T4 Dmp873 FREE T4 1.43 ng/dL 11/28/2017 Lipid Ord30 CHOL 186 mg/dL 11/28/2017 Lipid Ord30 HDL 54.0 mg/dl 11/28/2017 Lipid Ord30 TRIG 59 mg/dL 11/28/2017 Lipid Ord30 LDL 120 mg/dL 11/28/2017 Lipid Ord30 C/HDL 3.4 Ratio 11/28/2017 Comp Metabolic Fnm658 NA 141 mEq/L 11/28/2017 Comp Metabolic Vte019 K 4.0 mEq/L 11/28/2017 Comp Metabolic Jgd164 CL 105 mEq/L 11/28/2017 Comp Metabolic Ebr733 CO2 29.0 mEq/L 11/28/2017 Comp Metabolic Ear684 AN ION GAP 11 11/28/2017 Comp Metabolic Kbn749 GL UCOSE 91 mg/dL 11/28/2017 Comp Metabolic Abu425 Cr eat 0.8 mg/dL 11/28/2017 Comp Metabolic Tjd750 eG FR 74 ml/min/1.73m2 11/28 Comp Metabolic Uwy367 BUN 15 mg/dL 11/28/2017 Comp Metabolic Ffu370 B/ C Ratio 18.8 Ratio 11/28/2017 Comp Metabolic Tmh974 CA LCIUM 8.6 mg/dL 11/28/2017 Comp Metabolic Qlj343 AL K PHOS 76 U/L 11/28/2017 Comp Metabolic Fur609 T(SGOT) 10 U/L 11/28/2017 Comp Metabolic Yyh398 AL T(SGPT) 8 U/L 11/28/2017 Comp Metabolic Kas117 BI LI T 0.5 mg/dL 11/28/2017 Comp Metabolic Poy020 AL BUMIN 4.0 g/dL 11/28/2017 Comp Metabolic Tir765 TP RO 6.1 g/dL 11/28/2017 Comp Metabolic Qiy546 GL OB 2.1 g/dL 11/28/2017 Comp Metabolic Upa413 A/ G Ratio 1.9 Ratio 11/28/2017 Comp Metabolic Idz329 Os mo 282 mOsmo 11/28/2017 Tsh Ord6 TSH (3rd IS) 3.31 uIU/mL 11/28/2017 Tsh Ord6 hTSH II 1.45 uIU/mL 03/27/2017 Free T4 Zsa214 FREE T4 1.23 ng/dL 03/27/2017 Comp Metabolic Iap640 NA 140 mEq/L 09/28/2016 Comp Metabolic Yaf461 K 3.9 mEq/L 09/28/2016 Comp Metabolic Xxf376 CL 104 mEq/L 09/28/2016 Comp Metabolic Lnd792 CO2 28.0 mEq/L 09/28/2016 Comp Metabolic Fsi144 AN ION GAP 12 09/28/2016 Comp Metabolic Haj996 GL UCOSE 97 mg/dL 09/28/2016 Comp Metabolic Xej566 Cr eat 0.8 mg/dL 09/28/2016 Comp Metabolic Yvi819 eG FR 79 ml/min/1.73m2 09/28 Comp Metabolic Szj183 BUN 13 mg/dL 09/28/2016 Comp Metabolic Bvf645 B/ C Ratio 17.1 Ratio 09/28/2016 Comp Metabolic Puo232 CA LCIUM 8.9 mg/dL 09/28/2016 Comp Metabolic Equ315 AL K PHOS 100 U/L 09/28/2016 Comp Metabolic Myr735 T(SGOT) 12 U/L 09/28/2016 Comp Metabolic Kzz706 AL T(SGPT) 9 U/L 09/28/2016 Comp Metabolic Iyu783 BI LI T 0.4 mg/dL 09/28/2016 Comp Metabolic Pwn267 AL BUMIN 4.1 g/dL 09/28/2016 Comp Metabolic Gtr093 TP RO 6.6 g/dL 09/28/2016 Comp Metabolic Ykb600 GL OB 2.5 g/dL 09/28/2016 Comp Metabolic Srr530 A/ G Ratio 1.6 Ratio 09/28/2016 Comp Metabolic Elj268 Os mo 279 mOsmo 09/28/2016 Lipid Ord30 [...] 28.8 pg 09/28/2016 Cbc With Differential Ord2 [place]% 7.2 % 09/28/2016 Cbc With Differential Ord2 [...] 1.41 K/ul 09/28/2016 Cbc With Differential Ord2 [place] ABS# 0.5 K/ul 09/28/2016 Cbc With Differential Ord2 Eos ABS# 0.2 K/ul 09/28/2016 Cbc With Differential Ord2 Baso ABS# 0.0 K/ul 09/28/2016 Free T4 Nnt914 FREE T4 1.43 ng/dL 09/28/2016 Tsh Ord6 hTSH II 0.52 uIU/mL 09/28/2016 Tsh Ord6 hTSH II 0.47 uIU/mL 06/16/2016 Comp Metabolic Urw426 NA 139 mEq/L 06/16/2016 Comp Metabolic Fdj484 K 4.3 mEq/L 06/16/2016 Comp Metabolic Uqb566 CL 105 mEq/L 06/16/2016 Comp Metabolic Ohp753 CO2 30.0 mEq/L 06/16/2016 Comp Metabolic Aiv458 AN ION GAP 8 06/16/2016 Comp Metabolic Ktx172 GL UCOSE 90 mg/dL 06/16/2016 Comp Metabolic Njo299 Cr eat 0.7 mg/dL 06/16/2016 Comp Metabolic Vsp281 eG FR 91 ml/min/1.73m2 06/16 Comp Metabolic Mae363 BUN 15 mg/dL 06/16/2016 Comp Metabolic Uci059 B/ C Ratio 22.4 Ratio 06/16/2016 Comp Metabolic Bow294 CA LCIUM 8.8 mg/dL 06/16/2016 Comp Metabolic Yvu824 AL K PHOS 79 U/L 06/16/2016 Comp Metabolic Vjf755 T(SGOT) 13 U/L 06/16/2016 Comp Metabolic Vrr097 AL T(SGPT) 11 U/L 06/16/2016 Comp Metabolic Yxx911 BI LI T 0.5 mg/dL 06/16/2016 Comp Metabolic Abi125 AL BUMIN 3.9 g/dL 06/16/2016 Comp Metabolic Dsp707 TP RO 6.1 g/dL 06/16/2016 Comp Metabolic Lpp160 GL OB 2.2 g/dL 06/16/2016 Comp Metabolic Sll226 A/ G Ratio 1.8 Ratio 06/16/2016 Comp Metabolic Vjv978 Os mo 278 mOsmo 06/16/2016 Lipid Ord30 [...] 28.9 pg 06/16/2016 Cbc With Differential Ord2 [place]% 8.1 % 06/16/2016 Cbc With Differential Ord2 [...] 1.70 K/ul 06/16/2016 Cbc With Differential Ord2 [place] ABS# 0.4 K/ul 06/16/2016 Cbc With Differential Ord2 Eos ABS# 0.2 K/ul 06/16/2016 Cbc With Differential Ord2 Baso ABS# 0.0 K/ul 06/16/2016 Free T4 Yfc891 FREE T4 1.42 ng/dL 06/16/2016 Free T4 Rhn329 FREE T4 1.34 ng/dL 03/04/2016 Tsh Ord6 hTSH II 0.56 uIU/mL 03/04/2016 Tsh Ord6 hTSH II 0.98 uIU/mL 01/27/2016 Free T4 Byn537 FREE T4 1.19 ng/dL 01/27/2016 Free T4 Cov235 FREE T4 1.69 ng/dL 11/23/2015 Tsh Ord6 hTSH II 0.08 uIU/mL 11/23/2015 Lipid Ord30 CHOL 185 mg/dL 08/21/2015 Lipid Ord30 HDL 50.0 mg/dl 08/21/2015 Lipid Ord30 TRIG 88 mg/dL 08/21/2015 Lipid Ord30 LDL 117 mg/dL 08/21/2015 Lipid Ord30 C/HDL 3.7 Ratio 08/21/2015 Comp Metabolic Fsy259 NA 139 mEq/L 08/21/2015 Comp Metabolic Onq947 K 4.3 mEq/L 08/21/2015 Comp Metabolic Njh417 CL 102 mEq/L 08/21/2015 Comp Metabolic Wts765 CO2 27.0 mEq/L 08/21/2015 Comp Metabolic Axl694 AN ION GAP 14 08/21/2015 Comp Metabolic Xgt371 GL UCOSE 89 mg/dL 08/21/2015 Comp Metabolic Dut319 Cr eat 0.7 mg/dL 08/21/2015 Comp Metabolic Jwg592 eG FR 85 ml/min/1.73m2 08/21 Comp Metabolic Ges905 BUN 14 mg/dL 08/21/2015 Comp Metabolic Vmw378 B/ C Ratio 19.7 Ratio 08/21/2015 Comp Metabolic Ohl380 CA LCIUM 9.5 mg/dL 08/21/2015 Comp Metabolic Ztk546 AL K PHOS 123 U/L 08/21/2015 Comp Metabolic Nxe263 T(SGOT) 13 U/L 08/21/2015 Comp Metabolic Jsa422 AL T(SGPT) 10 U/L 08/21/2015 Comp Metabolic Cdm652 BI LI T 0.4 mg/dL 08/21/2015 Comp Metabolic Otm888 AL BUMIN 4.1 g/dL 08/21/2015 Comp Metabolic Kyd146 TP RO 6.8 g/dL 08/21/2015 Comp Metabolic Mrv628 GL OB 2.7 g/dL 08/21/2015 Comp Metabolic Gir640 A/ G Ratio 1.5 Ratio 08/21/2015 Comp Metabolic Trn536 Os mo 277 mOsmo 08/21/2015 Free T4 Kce805 FREE T4 1.78 ng/dL 08/21/2015 Tsh Ord6 [...] Ord2 RDW 13.9 % 08/21/2015 Quick Strep Jxq7141 Quic k Strep Negative 07/08/2015 Tsh Ord6 hTSH II 0.04 uIU/mL 05/20/2015 Free T4 Fje200 FREE T4 1.50 ng/dL 05/20/2015 Review of [...] Procedure Codes Date DESTRUCT PREMALG LESION CPT-4: 82064 01/19/2018 URINALYSIS NONAUTO W /O SCOPE CPT-4: 77756 09/12/2017 TRIAMCINOLONE ACET I [place] NOS CPT-4: J3301 06/14/2017 THER/PROPH/DIAG INJ SC/IM CPT-4: 32163 06/14/2017 PRESCRIP TRANSMIT A ERX SY CPT-4: G8553 06/14/2017 TRIAMCINOLONE ACET I [place] NOS CPT-4: J3301 03/27/2017 THER/PROPH/DIAG INJ SC/IM CPT-4: 89952 12/07/2016 TRIAMCINOLONE ACET I [place] NOS CPT-4: J3301 12/07/2016 THER/PROPH/DIAG INJ SC/IM CPT-4: 98370 11/28/2016 TRIAMCINOLONE ACET I [place] NOS CPT-4: J3301 11/28/2016 Vital Signs Date Vital 01/22/2019 Blood Pressure 1: 132/66 Code: 8480-6 BMI: 37.1 Code: 57088-8 Heart Rate 1: 73 bpm Height: 5'6" SpO2: 96% Weight: 230 lbs 11/21/2018 Blood Pressure 1: 120/64 Code: 8480-6 Heart Rate 1: 64 bpm 10/30/2018 Blood Pressure 1: 144/70 Code: 8480-6 BMI: 37.0 Code: 68421-8 Heart Rate 1: 76 bpm Height: 5'6" SpO2: 96% Weight: 229 lbs 06/28/2018 Blood Pressure 1: 110/66 Code: 8480-6 BMI: 37.1 Code: 10866-5 Heart Rate 1: 73 bpm Height: 5'6" SpO2: 98% Weight: 230 lbs 04/04/2018 Blood Pressure 1: 128/76 Code: 8480-6 BMI: 37.9 Code: 44716-5 Heart Rate 1: 86 bpm Height: 5'6" SpO2: 98% Weight: 235 lbs 01/19/2018 Blood Pressure 1: 122/68 Code: 8480-6 Heart Rate 1: 78 bpm Height: 5'6" SpO2: 97% Weight: 01/05/2018 Blood Pressure 1: 138/78 Code: 8480-6 BMI: 38.4 Code: 08161-9 Heart Rate 1: 73 bpm Height: 5'6" SpO2: 95% Weight: 238 lbs 11/29/2017 Blood Pressure 1: 138/80 Code: 8480-6 BMI: 38.7 Code: 16087-0 Heart Rate 1: 71 bpm Height: 5'6" SpO2: 97% Weight: 240 lbs 10/25/2017 Blood Pressure 1: 136/72 Code: 8480-6 BMI: 38.7 Code: 59493-3 Heart Rate 1: 92 bpm Height: 5'6" SpO2: 98% Weight: 240 lbs 09/12/2017 Blood Pressure 1: 132/68 Code: 8480-6 BMI: 39.7 Code: 75968-6 Heart Rate 1: 76 bpm Height: 5'6" SpO2: 98% Weight: 246 lbs 06/14/2017 Blood Pressure 1: 130/80 Code: 8480-6 BMI: 39.4 Code: 69718-3 Heart Rate 1: 73 bpm Height: 5'6" SpO2: 95% Temperature: 36.9 (C ) / 98.5 (F) Weight: 244 lbs 05/10/2017 Blood Pressure 1: 128/68 Code: 8480-6 BMI: 38.7 Code: 18180-7 Heart Rate 1: 69 bpm Height: 5'6" SpO2: 97% Weight: 240 lbs 04/19/2017 Blood Pressure 1: 138/74 Code: 8480-6 BMI: 38.7 Code: 35797-6 Heart Rate 1: 73 bpm Height: 5'6" SpO2: 96% Weight: 240 lbs 03/27/2017 Blood Pressure 1: 142/84 Code: 8480-6 BMI: 38.7 Code: 70530-3 Heart Rate 1: 69 bpm Height: 5'6" SpO2: 97% Weight: 240 lbs 01/26/2017 Blood Pressure 1: 136/68 Code: 8480-6 Heart Rate 1: 64 bpm Height: 5'6" SpO2: 96% Weight: 12/07/2016 Blood Pressure 1: 130/72 Code: 8480-6 BMI: 39.7 Code: 77619-1 Heart Rate 1: 73 bpm Height: 5'6" SpO2: 93% Temperature: 36.8 (C ) / 98.3 (F) Weight: 246 lbs 11/28/2016 Blood Pressure 1: 138/60 Code: 8480-6 BMI: 39.7 Code: 72017-7 Heart Rate 1: 81 bpm Height: 5'6" SpO2: 97% Weight: 246 lbs 11/15/2016 Blood Pressure 1: 134/78 Code: 8480-6 BMI: 39.7 Code: 67456-2 Heart Rate 1: 75 bpm Height: 5'6" SpO2: 93% Temperature: 36.8 (C ) / 98.2 (F) Weight: 246 lbs 10/17/2016 Blood Pressure 1: 120/64 Code: 8480-6 BMI: 38.4 Code: 23483-7 Heart Rate 1: 69 bpm Height: 5'6" SpO2: 98% Temperature: 37.2 (C ) / 98.9 (F) Weight: 238 lbs 09/28/2016 Blood Pressure 1: 158/76 Code: 8480-6 BMI: 39.4 Code: 93286-9 Heart Rate 1: 71 bpm Height: 5'6" SpO2: 97% Weight: 244 lbs 06/29/2016 Blood Pressure 1: 124/60 Code: 8480-6 BMI: 38.7 Code: 61959-4 Heart Rate 1: 71 bpm Height: 5'6" SpO2: 98% Weight: 240 lbs 06/01/2016 Blood Pressure 1: 120/62 Code: 8480-6 BMI: 38.6 Code: 72217-4 Heart Rate 1: 76 bpm Height: 5'6" SpO2: 98% Weight: 239 lbs 05/11/2016 Blood Pressure 1: 140/80 Code: 8480-6 BMI: 38.1 Code: 63974-5 Heart Rate 1: 88 bpm Height: 5'6" SpO2: 97% Weight: 236 lbs 04/05/2016 Blood Pressure 1: 142/80 Code: 8480-6 BMI: 38.4 Code: 36263-8 Heart Rate 1: 96 bpm Height: 5'6" SpO2: 98% Weight: 238 lbs 04/01/2016 Blood Pressure 1: 136/88 Code: 8480-6 BMI: 39.2 Code: 76903-5 Heart Rate 1: 86 bpm Height: 5'6" SpO2: 96% Weight: 243 lbs 01/26/2016 Blood Pressure 1: 124/76 Code: 8480-6 BMI: 39.2 Code: 90994-5 Heart Rate 1: 76 bpm Height: 5'6" SpO2: 97% Weight: 243 lbs 12/21/2015 Blood Pressure 1: 120/64 Code: 8480-6 BMI: 37.0 Code: 76776-9 Heart Rate 1: 98 bpm Height: 5'6" SpO2: 97% Weight: 229 lbs 10/12/2015 Blood Pressure 1: 150/64 Code: 8480-6 BMI: 37.4 Code: 94305-5 Heart Rate 1: 70 bpm Height: 5'6" SpO2: 94% Weight: 232 lbs 08/24/2015 Blood Pressure 1: 128/74 Code: 8480-6 BMI: 36.8 Code: 11824-5 Heart Rate 1: 88 bpm Height: 5'6" SpO2: 94% Temperature: 36.8 (C ) / 98.3 (F) Weight: 228 lbs 06/01/2015 Blood Pressure 1: 134/68 Code: 8480-6 BMI: 36.0 Code: 55873-5 Heart Rate 1: 70 bpm Height: 5'6" SpO2: 98% Weight: 223 lbs 05/21/2015 Blood Pressure 1: 126/72 Code: 8480-6 BMI: 35.2 Code: 56828-3 Heart Rate 1: 63 bpm Height: 5'6" SpO2: 95% Weight: 218 lbs 5 oz 03/26/2015 Blood Pressure 1: 140/62 Code: 8480-6 BMI: 35.3 Code: 36604-9 Heart Rate 1: 68 bpm Height: 5'6" Weight: 219 lbs 03/11/2015 Blood Pressure 1: 130/80 Code: 8480-6 BMI: 34.9 Code: 17434-5 Heart Rate 1: 76 bpm Height: 5'6" Temperature: 37.1 (C ) / 98.7 (F) Weight: 216 lbs 12/11/2014 Blood Pressure 1: 134/62 Code: 8480-6 BMI: 34.2 Code: 33113-5 Heart Rate 1: 72 bpm Height: 5'6" Weight: 212 lbs 09/18/2014 Blood Pressure 1: 148/80 Code: 8480-6 BMI: 34.7 Code: 81922-4 Heart Rate 1: 68 bpm Height: 5'6" Weight: 215 lbs 07/31/2014 Blood Pressure 1: 124/72 Code: 8480-6 BMI: 36.2 Code: 90593-1 Heart Rate 1: 68 bpm Height: 5'6" [...] Severity mi ld 09/28/2016 None hypothyroid 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 09/28/2016 None hypothyroid Onset and [...] Severity mi ld 06/01/2016 None hypothyroid 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 06/01/2016 None hypothyroid Onset and [...] and Resolution resolved 04/05/2016 None hypothyroid 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 [facility], LEV[facility] Diagnosis: Mild intermittent asthma, uncomplicated[ICD10: J45.20] Diagnosis: Hypothyroidism, unspecified[ICD10: E03.9] Diagnosis: Low back pain[ICD10: M54.5] Lynn Finn MD, [facility] CPT- 4: 23163 01/22/2019 ([id number]) Edgar watkins no charge Diagnosis: Essential (primary) hypertension[ICD10: I10] Damari Finn MD, [facility] CPT-4: 07815 11/21/2018 ([id number]) 18479 EST. [facility], LEV[facility] IV Diagnosis: Essential (primary) hypertension[ICD10: I10] Diagnosis: Hypothyroidism, unspecified[ICD10: E03.9] Diagnosis: Low back pain[ICD10: M54.5] Lynn Finn MD, [facility] CPT- 4: 76250 10/30/2018 ([id number]) 34876 EST. [facility], LEVEL III Diagnosis: Acute recurrent maxillary sinusitis[ICD10: J01.01] Diagnosis: Other mucopurulent conjunctivitis, left eye[ICD10: H10.022] Diagnosis: Other allergic rhinitis[ICD10: J30.89] Lynn Finn MD, [facility] CPT-4: 48600 06/28/2018 [id number] EST. PATIENT, LEVEL IV Diagnosis: Essential (primary) hypertension[ICD10: I10] Diagnosis: Other specified hypothyroidism[ICD10: E03.8] Diagnosis: Other specified anemias[ICD10: D64.89] Diagnosis: Localized edema[ICD10: R60.0] Mishel Finn MD, [facility] CPT-4: 23502 04/04/2018 ([id number]) 55084 EST. P ATIENT, LEVEL III Diagnosis: Mild persistent asthma, uncomplicated[ICD10: J45.30] Diagnosis: Actinic keratosis[ICD10: L57.0] Lynn Finn MD, [facility] CPT- 4: 94787 01/05/2018 ([id number]) Miscellaneou s no charge Diagnosis: Essential (primary) hypertension[ICD10: I10] Damari Finn MD, [facility] CPT-4: 06478 12/12/2017 [id number] EST. PATIENT, LEVEL III Diagnosis: Essential (primary) hypertension[ICD10: I10] Diagnosis: Atrophy of thyroid (acquired)[ICD10: E03.4] Diagnosis: Low back pain[ICD10: M54.5] Mishel Finn MD, [facility] CPT-4: 00031 11/29/2017 70512 EST. PATIENT, LEVEL III Diagnosis: Pain in left hip[ICD10: M25.552] Mishel Finn MD, [facility] CPT-4: 65336 10/25/2017 [id number] EST. PATIENT, LEVEL IV Diagnosis: Localized edema[ICD10: R60.0] Mishel Finn MD, [facility] CPT-4: 50497 09/12/2017 58009 EST. PATIENT, LEVEL IV Diagnosis: Mild persistent asthma with (acute) exacerbation[ICD10: J45.31] Mishel Finn MD, [facility] CPT-4: 18690 06/14/2017 81837 EST. PATIENT, LEVEL III Diagnosis: Localized edema[ICD10: R60.0] Diagnosis: Mild persistent asthma, uncomplicated[ICD10: J45.30] Mishel Finn MD, [facility] CPT-4: 19231 05/10/2017 95093 EST. PATIENT, LEVEL III Diagnosis: Mild persistent asthma with (acute) exacerbation[ICD10: J45.31] Mishel Finn MD, [facility] CPT-4: 98286 04/19/2017 ([id number]) 55151 EST. P ATIENT, LEVEL IV Diagnosis: Contusion of left wrist, initial encounter[ICD10: S60.212A] Diagnosis: Hypothyroidism, unspecified[ICD10: E03.9] Diagnosis: Mild persistent asthma with (acute) exacerbation[ICD10: J45.31] Diagnosis: Low back pain[ICD10: M54.5] Lynn Finn MD, [facility] CPT- 4: 15216 03/27/2017 ([id number]) [id number] EST. [facility] Diagnosis: Essential (primary) hypertension[ICD10: I10] Diagnosis: Atrophy of thyroid (acquired)[ICD10: E03.4] Diagnosis: Low back pain[ICD10: M54.5] Damari Finn MD, [facility] CPT-4: 33260 01/26/2017 [id number] EST. PATIENT, LEVEL III Diagnosis: Other allergic rhinitis[ICD10: J30.89] Diagnosis: Mild persistent asthma with (acute) exacerbation[ICD10: J45.31] Mishel Finn MD, [facility] CPT-4: 11247 12/07/2016 59550 EST. PATIENT, LEVEL III Diagnosis: Mild persistent asthma with (acute) exacerbation[ICD10: J45.31] Mishel Finn MD, [facility] CPT-4: 10437 11/28/2016 [id number] EST. PATIENT, LEVEL III Diagnosis: Mild persistent asthma with (acute) exacerbation[ICD10: J45.31] Diagnosis: Acute bronchitis due to other specified organisms[ICD10: J20.8] Mishel Finn MD, [facility] CPT-4: 58506 11/15/2016 18023 EST. PATIENT, LEVEL IV Diagnosis: Other acute sinusitis[ICD10: J01.80] Diagnosis: Other allergic rhinitis[ICD10: J30.89] Diagnosis: Mild persistent asthma with (acute) exacerbation[ICD10: J45.31] Mishel Finn MD, [facility] CPT-4: 38286 10/17/2016 ([id number]) 71635 EST. P ATIENT, LEVEL IV Diagnosis: Essential (primary) hypertension[ICD10: I10] Diagnosis: Low back pain[ICD10: M54.5] Damari Finn MD, [facility] CPT-4: 62948 09/28/2016 51644 EST. PATIENT, LEVEL III Diagnosis: Tinea barbae and tinea capitis[ICD10: B35.0] Diagnosis: Other specified hypothyroidism[ICD10: E03.8] Mishel Finn MD, [facility] CPT-4: 41117 06/29/2016 ([id number]) 48592 EST. P ATIENT, LEVEL IV Diagnosis: Essential (primary) hypertension[ICD10: I10] Diagnosis: Atrophy of thyroid (acquired)[ICD10: E03.4] Diagnosis: Rash and other nonspecific skin eruption[ICD10: R21] Damari Finn MD, [facility] CPT-4: 77153 06/01/2016 ([id number]) 53103 EST. P ATIENT, LEVEL III Diagnosis: Cellulitis of groin[ICD10: L03.314] Damari Finn MD, [facility] CPT- 4: 20870 05/11/2016 ([id number]) 91838 EST. P ATIENT, LEVEL IV Diagnosis: Hypothyroidism, unspecified[ICD10: E03.9] Diagnosis: Candidiasis of vulva and vagina[ICD10: B37.3] Diagnosis: Essential (primary) hypertension[ICD10: I10] Diagnosis: Low back pain[ICD10: M54.5] Lynn Finn MD, [facility] CPT- 4: 24657 04/05/2016 38548 EST. PATIENT, LEVEL III Diagnosis: Other acute sinusitis[ICD10: J01.80] Diagnosis: Rash and other nonspecific skin eruption[ICD10: R21] Mishel Finn MD, [facility] CPT-4: 38970 04/01/2016 ([id number]) 83862 EST. P ATIENT, LEVEL IV Diagnosis: Essential (primary) hypertension[ICD10: I10] Diagnosis: Hypothyroidism, unspecified[ICD10: E03.9] Diagnosis: Low back pain[ICD10: M54.5] Diagnosis: Other obesity due to excess calories[ICD10: E66.09] Lynn Finn MD, [facility] CPT-4: 77288 01/26/2016 42497 EST. PATIENT, LEVEL IV Diagnosis: Essential (primary) hypertension[ICD10: I10] Diagnosis: Cutaneous abscess of face[ICD10: L02.01] Mishel Finn MD, [facility] CPT-4: 69761 12/21/2015 ([id number]) 66676 EST. P ATIENT, LEVEL III Diagnosis: Cutaneous abscess of groin[ICD10: L02.214] Diagnosis: Hypothyroidism, unspecified[ICD10: E03.9] Lynn Finn MD, [facility] CPT-4: 25196 10/12/2015 ([id number]) [id number] EST. P ATIENT, LEVEL III Diagnosis: Essential (primary) hypertension[ICD10: I10] Diagnosis: Hypothyroidism, unspecified[ICD10: E03.9] Diagnosis: Allergic rhinitis, unspecified[ICD10: J30.9] Lynn Finn MD, [facility] CPT-4: 34905 08/24/2015 ([id number]) 47910 EST. P ATIENT, LEVEL III Diagnosis: Skin infection[ICD9: 686.9] Damari Finn MD, [facility] CPT-4: 87429 06/01/2015 ([id number]) 97853 EST. P ATIENT, LEVEL III Diagnosis: Hypothyroidism[ICD9: 244.9] Diagnosis: ESSENTIAL HYPERTENSION[ICD9: 401.9] Damari Finn MD, [facility] CPT- 4: 43100 05/21/2015 ([id number]) 93282 EST. P ATIENT, LEVEL III Diagnosis: Hypothyroidism[ICD9: 244.9] Diagnosis: Fingernail abnormalities[ICD9: 703.8] Lynn Finn MD, [facility] CPT-4: 39004 03/26/2015 ([id number]) 62776 EST. P ATIENT, LEVEL II Diagnosis: Hypothyroidism[ICD9: 244.9] Maritza Finn MD, [facility] CPT-4: 13584 03/11/2015 ([id number]) 54395 EST. P ATIENT, LEVEL IV Diagnosis: ESSENTIAL HYPERTENSION[ICD9: 401.9] Diagnosis: Low back pain[ICD9: 724.2] Diagnosis: Hypothyroidism[ICD9: 244.9] Damari Finn MD, [facility] CPT-4: 04780 12/11/2014 ([id number]) 43583 EST. P ATIENT, LEVEL IV Diagnosis: Hidradenitis suppurativa[ICD9: 705.83] Diagnosis: ESSENTIAL HYPERTENSION[ICD9: 401.9] Diagnosis: Low back pain[ICD9: 724.2] Diagnosis: Lumbar spinal stenosis[ICD9: 724.02] Diagnosis: HYPOTHYROIDISM[ICD9: 244.9] [facility] CPT-4: 34965 09/18/2014 Office outpatient ne w 30 minutes Diagnosis: ESSENTIAL HYPERTENSION[ICD9: 401.9] Diagnosis: Hypothyroidism[ICD9: 244.9] Diagnosis: Low back pain[ICD9: 724.2] [facility] CPT- 4: 31554 07/31/2014 Plan of Care Planned Activity Notes [...] medical practice. 01/22/2019 Appointment: Lynn Arenas WPtel: [address] [place], [place] [phone] (30 min) [facility] 01/22/2019 Patient Education: Patient Medication Summary Completed [...] indicated 10/30/2018 Appointment: Lynn Arenas WPtel: [phone] [phone] [place] (30 min) Complex 10/30/2018 Patient Education: Patient Medication Summary Completed 10/30/2018 Patient Education: Hypertension Completed 10/30/2018 Patient Education: Back Pain Completed 10/30/2018 Appointment: Lynn Arenas WPtel: [phone] [phone] [place] (30 min) Complex 10/26/2018 Patient Education: Patient Medication Summary Completed 10/23/2018 Appointment: Lynn Arenas WPtel: [phone] [phone] [place] (15 min) Moderate 10/19/2018 Appointment: [phone] [place] (15 min) Moderate 09/19/2018 Visit Plan: [...] times daily. 06/28/2018 Appointment: [phone] (30 min) Complex 06/28/2018 Patient Education: [...] monitor. 04/04/2018 Appointment: Mishel Balderrama WPtel: [phone] [facility] (15 min) Moderate 04/04/2018 Patient Education: Patient Medication Summary Completed 04/04/2018 Visit Plan: Wound Instructions - Pt was instructed to keep the wound clean, wash with antibacterial soap, use triple antibiotic ointment, call if redness, pustular drainage, or any other acute concerns. 01/19/2018 Appointment: Lynn Arenas WPtel: [phone] (30 min) Complex 01/19/2018 Patient Education: Patient [...] acute concerns. 01/05/2018 Appointment: Lynn Arenas WPtel: [phone] (30 min) Complex 01/05/2018 Patient Education: Patient [...] improve. 11/29/2017 Appointment: Mishel Balderrama WPtel: [phone] [facility] [place] (30 min) Complex 11/29/2017 Patient Education: [...] improve. 10/25/2017 Appointment: Mishel Balderrama WPtel: [phone] [facility] [place] (30 min) Complex 10/25/2017 Patient Education: [...] edema. 09/12/2017 Appointment: Mishel Balderrama WPtel: [phone] [facility] [place] (30 min) Complex 09/12/2017 Patient Education: Patient Medication Summary Completed 09/12/2017 Appointment: Lynn Arenas WPtel: [address] [phone] [place] (30 min) Complex 06/27/2017 Visit Plan: [...] acute changes. 06/14/2017 Appointment: Mishel Balderrama WPtel: [phone] [facility] [place] (15 min) Moderate 06/14/2017 Patient Education: [...] acute changes 05/10/2017 Appointment: [facility] Bal[phone] [facility] [place] (15 min) Moderate 05/10/2017 Patient [...] changes. 04/19/2017 App[facility]ment: [facility] Bal[phone] [facility] (15 min) Moderate 04/19/2017 Patient Education: [...] on previous levels of control. Low back ggvc-tkttccr-pcdhik tramadol for prn use 03/27/2017 Appointment: [phone] [phone] (30 min) Complex 03/27/2017 Patient Education: [...] not improve. 01/26/2017 Appointment: Damari Finn WPtel: [phone] [facility] (15 min) Moderate 01/26/2017 Patient Education: Patient [...] or concerns. 12/07/2016 Appointment: Mishel Balderrama WPtel: [phone] [facility] (15 min) Moderate 12/07/2016 Patient Education: Patient [...] wheezing/asthma symptoms. 11/28/2016 Appointment: Mishel Balderrama WPtel: [facility] (15 min) Moderate 11/28/2016 Patient Education: Patient Medication Summary Completed 11/28/2016 Appointment: Mis[facility] Balderrama [phone] [facility] (15 min) Moderate 11/24/2016 Visit Plan: [...] changes. 11/15/2016 Appointment: Mishel Balderrama [facility]Ptel[phone] [facility] [place] (30 min) Complex 11/15/2016 Patient Education: Patient [...] changes. 10/17/2016 Appointment: Mishel Balderrama WPtel: [phone] [facility] (30 min) Complex 10/17/2016 Patient Education: Patient [...] prn tylenol 09/28/2016 Appointment: Dam[facility] Finn [phone] (15 min) Moderate 09/28/2016 Patient Education: Patient [...] control. 06/29/2016 Appointment: Lynn Arenas WPtel: [phone] [phone] [place] (15 min) Moderate 06/29/2016 Patient Education: [...] for fluconazole 06/01/2016 Appointment: Damari Finn WPtel: [phone] [facility] [place] (15 min) Moderate 06/01/2016 Patient Education: Patient Medication Summary Completed 06/01/2016 Patient Education: Obesity Completed 06/01/2016 Visit Plan: Cellulitis - continue w ith oral antibiotics as previously directed, return to clinic as previously directed, call for acute change in symptoms, worsening redness, warmth, discharge. 05/11/2016 Appointment: Damari Finn WPtel: [phone] [facility] [place] (15 min) Moderate 05/11/2016 Patient Education: [...] any concerns. 04/01/2016 Appointment: Lynn Arenas WPtel: [address] [place], [place] [phone] (30 min) Complex 04/01/2016 Patient Education: Patient Medication Summary Completed 04/01/2016 Patient Education: Obesity Completed 04/01/2016 Appointment: Lynn Arenas WPtel: [address] [place] [phone] (30 min) Complex 03/29/2016 Visit Plan: Hypertension [...] levels of control. Low back pain-refill tramadol Odsbj-ccicjunjoj-uynparhx resolved 01/26/2016 Appointment: Lynn Arenas WPtel: [facility] [place] [phone] (30 min) Complex 01/26/2016 Patient Education: Patient Medication Summary Completed 01/26/2016 Patient Education: Obesity Completed 01/26/2016 Care Plan: BMI Above normal followup RADHA F-MGMT EDUC & TRAIN 1 PT Pending 01/26/2016 Care Plan: Referral Order SNOMED-CT : [id number] Pending 01/07/2016 Appointment: Dagoberto Lynn WPtel: [phone] (15 min) Moderate 12/24/2015 Visit Plan: [...] nor improving. 06/01/2015 Appointment: Damari Finn WPtel: [facility] (15 min) Moderate 06/01/2015 Patient Education: Patient [...] refill tramadol 12/11/2014 Appointment: Damari Finn WPtel: [address] [place] [address] follow up 12/11/2014 Patient Education: Patient Medication Summary Completed 12/11/2014 Patient Education: Hypertension Completed 12/11/2014 Appointment: Damari Finn WPtel: [address] [place] [address] follow up 11/27/2014 Visit Plan: Hidradenitis Suppurativ [...] to get her back MRI done at [facility] in [place] as that is where her specialist will be once we get her an appt with one of the local Neurosurgeons. 09/18/2014 Appointment: Damari Finn [facility]Ptel[phone] Follow up 09/18/2014 Patient Education: Patient Medication [...] scheduled 07/31/2014 Appointment: [facility]el[phone] [facility] New Patient 07/31/2014 Patient Education: Patient Medication Summary Completed 07/31/2014 Referral: Artur Daugherty she w ill be calling and making her appt Initiated Referral: Artur Daugherty Referral Initiated Instructions Comment . Hypertension - wel l controlled - [...] months based on previous levels of control. bactroban ointment t o sore twice daily [...] to further attempt to reduce peripheral edema. Start zyrtec - one d aily Steroid shot today in office Mucinex as needed for congestion cough syrup Let me know if it is not improving. . 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 Low back qpnj-qzvajpv-rbvwso tramadol for prn use . Brittle fingernail [...] worsen, or with any questions or concerns. tramadol-Dillons . Hypertension - well controlled - [...] levels of control. Low back pain-refill tramadol Xincy-zlhahgkgyc-ibcpndas resolved . Edema - pt has bee [...] further attempt to reduce peripheral edema. . Hypertension - wel l controlled - continue with current medications, continue with no added salt diet. Pt has been encouraged to exercise daily. The pt has been advised to call the office if there are any acute concerns about change in blood pressure readings at home. discussed labs - no change in medications. Back pain - prn tylenol . Low back pain, lef t hip pain, left buttock pain - the patient was instructed in appropriate posture, need for weight loss to alleviate abdominal obesity that is worsening the patient's back pain.. The pt is to use prn antiinflammatories to manage acute pain. The patient is to call the office if the pain is worsening or does not improve. Declined Procedure: (03382) FLU VAC NO PRSV 4 JUSTYNA 3 YRS+; Declined Reason: refused Physical therapy at [facility] . Hypertension - well controlled - oleg [...] Dr Lincoln as scheduled . Cellulitis - loeg nue with oral antibiotics as previously directed, [...] the patient's termination from this medical practice. restart lisinopril/h CTZ - this will help [...] to get her back MRI done at [facility] in [place] as that is where her specialist will [...] pustular drainage, or any other acute concerns. CORICIDIN HBP . Hypertension - well controlled [...]
--- OUTSIDE RECORDS SUMMARY | 2020-02-20 19:04 | XMS REPORT | CCD ---
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 Unknown Has never used illegal drugs 014 Allergies, Adverse Reactions, Alerts Substance Reaction Codes Entered Date Inactivated Date Status * NO KNOWN FOOD BEVERLY RGIES Unknown 07/31/2014 No Inactive Date Active bactrim hives, rash RxNorm: 950364 04/05/2016 No Inactive Date Active Past Medical [...] Fill Instructions lorazepam 1 mg tablet RxNorm: 722539 Tablet(s) TAKE TWO TABLETS BY MOUTH AT B EDTIME NEEDED FOR INSOMNIA AND ONE TABLET DAILY NEEDED ANXIETY 01/04/2019 03/03/2019 Active tramadol 50 mg tablet RxNorm: 472964 1 Tablet(s) PO Q4 PRN as needed for pain 12/05/2018 01/13/2019 In active Keflex 500 mg capsule RxNorm: 587403 1 Capsule(s) PO TID 12/05/2018 12/11/2018 Inactive ciprofloxacin 0.3 % eye drops RxNorm: 834974 INSTILL TWO DROPS TO THE AFFECTED EYE(S) THREE TIMES A DAY 11/23/2018 12/25/2018 Inactive levothyroxine 137 mc g tablet RxNorm: 736018 1 Tablet(s) PO daily TAKE ONE TABLET BY MOUTH DAILY ON AN EMPTY STOMACH 10/30/2018 01/22/2020 Active ProAir HFA 90 mcg/ac tuation aerosol inhaler RxNorm: 0168239 1-2 Puff(s) INH Q4 P RN INHALE 1 TO 2 PUFFS FOUR TIMES A DAY NEEDED FOR ASTHMA 10/30/2018 01/27/2019 Active tramadol 50 mg tablet RxNorm: 587014 1 Tablet(s) PO Q4 PRN as needed for pain 10/29/2018 12/04/2018 In active levothyroxine 125 mc g tablet RxNorm: 064953 1 Tablet(s) PO daily TAKE ONE TABLET BY MOUTH DAILY ON AN EMPTY STOMACH 09/06/2018 10/29/2018 Inactive lorazepam 1 mg tablet RxNorm: 568676 Tablet(s) TAKE TWO TABLETS BY MOUTH AT B EDTIME NEEDED FOR INSOMNIA AND ONE TABLET DAILY NEEDED ANXIETY 09/06/2018 11/02/2018 Inactive tramadol 50 mg tablet RxNorm: 571037 1 Tablet(s) PO Q4 PRN as needed for pain 09/06/2018 10/15/2018 In active tramadol 50 mg tablet RxNorm: 173569 1 Tablet(s) PO Q4 PRN as needed for pain 07/06/2018 08/14/2018 In active ciprofloxacin 0.3 % eye drops RxNorm: 671722 2 Drop(s) ophthalmic (eye) TID 06/28/2018 07/07/2018 In active lorazepam 1 mg tablet RxNorm: 564828 Tablet(s) TAKE TWO TABLETS BY MOUTH AT B EDTIME NEEDED FOR INSOMNIA AND ONE TABLET DAILY NEEDED ANXIETY 06/28/2018 08/26/2018 Inactive doxycycline hyclate 100 mg tablet RxNorm: 4980536 1 Tablet(s) PO BID 06/28/2018 07/04/2018 Inactive tramadol 50 mg tablet RxNorm: 658809 1 Tablet(s) PO Q4 PRN as needed for pain 06/13/2018 07/05/2018 In active lorazepam 1 mg tablet RxNorm: 890491 Tablet(s) TAKE TWO TABLETS BY MOUTH AT B EDTIME NEEDED FOR INSOMNIA AND ONE TABLET DAILY NEEDED ANXIETY 05/23/2018 06/27/2018 Inactive tramadol 50 mg tablet RxNorm: 382270 1 Tablet(s) PO Q4 PRN as needed for pain 05/23/2018 06/12/2018 In active levothyroxine 125 mc g tablet RxNorm: 126912 Tablet(s) TAKE ONE TA BLET BY MOUTH DAILY ON AN EMPTY STOMACH 05/23/2018 09/05/2018 Inactive tramadol 50 mg tablet RxNorm: 760928 1 Tablet(s) PO Q4 PRN as needed for pain 05/17/2018 05/22/2018 In active levothyroxine 125 mc g tablet RxNorm: 080715 TAKE ONE TABLET BY MO UT DAILY 05/15/2018 06/27/2018 In active levothyroxine 125 mc g tablet RxNorm: 004830 TAKE ONE TABLET BY MO UTH DAILY 05/15/2018 06/27/2018 In active tramadol 50 mg tablet RxNorm: 004725 1 Tablet(s) PO Q4 PRN as needed for pain 04/30/2018 05/16/2018 In active Advair Diskus 100 mc g-50 mcg/dose powder for inhalation RxNorm: 2576844 1 Puff(s) INH BID 04/06/2018 01/21/2019 Inactive Symbicort 80 mcg-4.5 mcg/actuation HFA aerosol inhaler RxNorm: 3091845 2 Puff(s) INH BID 04/06/2018 01/21/2019 Inactive Advair Diskus 250 mc g-50 mcg/dose powder for inhalation RxNorm: 0656606 1 Puff(s) INH BID 04/05/2018 09/01/2018 Inactive Zyrtec 10 mg tablet RxNorm: 4750765 1 Tablet(s) PO daily x1 week then PRN 04/05/2018 08/02/2018 In active lisinopril 20 mg-hyd rochlorothiazide 25 mg tablet RxNorm: 657579 Tablet(s) TAKE ONE TABLET BY MOUTH DAILY 04/05/2018 10/29/2018 Inactive Zyrtec 10 mg tablet RxNorm: 7959926 1 Tablet(s) PO daily 04/04/2018 05/03/2018 Inactive tramadol 50 mg tablet RxNorm: 998202 1 Tablet(s) PO Q4 PRN as needed for pain 03/13/2018 04/21/2018 In active lorazepam 1 mg tablet RxNorm: 840777 Tablet(s) TAKE TWO TABLETS BY MOUTH AT B EDTIME NEEDED FOR INSOMNIA AND ONE TABLET DAILY NEEDED ANXIETY 03/02/2018 04/30/2018 Inactive levothyroxine 125 mc g tablet RxNorm: 980793 1 Tablet(s) PO daily 02/06/2018 05/06/2018 Inactive levothyroxine 125 mc g tablet RxNorm: 900618 TAKE ONE TABLET BY [facility] DAILY ON AN EMPTY STOMACH 02/06/2018 05/22/2018 Inactive tramadol 50 mg tablet RxNorm: 171490 1 Tablet(s) PO Q4 PRN as needed for pain 01/26/2018 03/06/2018 In active lorazepam 1 mg tablet RxNorm: 373444 Tablet(s) TAKE TWO TABLETS BY MOUTH AT B EDTIME NEEDED FOR INSOMNIA AND ONE TABLET DAILY NEEDED ANXIETY 01/23/2018 06/27/2018 Inactive Symbicort 80 mcg-4.5 mcg/actuation HFA aerosol inhaler RxNorm: 4004826 INH 01/05/2018 06/27/2018 In active tramadol 50 mg tablet RxNorm: 725052 1 Tablet(s) PO Q4 PRN as needed for pain 01/04/2018 01/25/2018 In active Advair Diskus 250 mc g-50 mcg/dose powder for inhalation RxNorm: 3118869 1 Puff(s) INH BID 11/29/2017 03/28/2018 Inactive hydrochlorothiazide 12.5 mg tablet RxNorm: 716141 1 Tablet(s) PO daily 11/29/2017 12/28/2017 In active tramadol 50 mg tablet RxNorm: 804879 1 Tablet(s) PO Q4 PRN as needed for pain 11/23/2017 01/01/2018 In active tramadol 50 mg tablet RxNorm: 726375 1 Tablet(s) PO Q4 PRN as needed for pain 10/06/2017 11/14/2017 In active lorazepam 1 mg tablet RxNorm: 960833 Tablet(s) TAKE TWO TABLETS BY MOUTH AT B EDTIME NEEDED FOR INSOMNIA AND ONE TABLET DAILY NEEDED ANXIETY 09/12/2017 06/27/2018 Inactive tramadol 50 mg tablet RxNorm: 934672 1 Tablet(s) PO Q4 PRN as needed for pain 09/12/2017 10/05/2017 In active tramadol 50 mg tablet RxNorm: 278316 1 Tablet(s) PO Q4 PRN as needed for pain 08/15/2017 09/11/2017 In active tramadol 50 mg tablet RxNorm: 277944 1 Tablet(s) PO Q4 PRN as needed for pain 06/29/2017 08/07/2017 In active ProAir HFA 90 mcg/ac tuation aerosol inhaler RxNorm: 2028800 INHALE 1 TO 2 PUFFS FOUR TIMES A DAY NEEDED FOR ASTHMA 06/14/2017 11/10/2017 Inactive prednisone 20 mg tablet RxNorm: 808659 1 Tablet(s) PO BID x 2 days, then 1 pill daily x 3 days, then 1/2 pill every other day x 3 doses. 06/14/2017 09/11/2017 Inactive Kenalog 40 mg/mL madhavi pension for injection RxNorm: 7440463 1 Milliliter(s) Inj 06/14/2017 06/14/2017 In active Zyrtec 10 mg tablet RxNorm: 0764001 1 Tablet(s) PO daily 06/14/2017 07/13/2017 Inactive tramadol 50 mg tablet RxNorm: 661614 1 Tablet(s) PO Q4 PRN as needed for pain 06/08/2017 06/27/2017 In active [SAVINGS FOR UNINSURED PATIENTS -- BIN:0 50725, PCN: ASPROD1, Group: [id number], ID# [id number], Process claim through Mindlikes, for questions: . THIS IS NOT INSURANCE.] tramadol 50 mg tablet RxNorm: 314778 1 Tablet(s) PO Q4 PRN as needed for pain 05/16/2017 06/04/2017 In active [SAVINGS FOR UNINSURED PATIENTS -- BIN:0 76990, PCN: ASPROD1, Group: [id number], ID# [id number], Process claim through [employer]park[employer], for questions: . THIS IS NOT INSURANCE.] lorazepam 1 mg tablet RxNorm: 056001 Tablet(s) TAKE TWO TABLETS BY MOUTH AT B EDTIME NEEDED FOR INSOMNIA AND ONE TABLET DAILY NEEDED ANXIETY 05/16/2017 08/13/2017 Inactive Lasix 20 mg tablet RxNorm: 1 Tablet(s) PO daily 05/10/2017 05/09/2017 Inactive Lasix 20 mg tablet RxNorm: 1 Tablet(s) PO daily 05/10/2017 05/12/2017 Inactive potassium chloride E R 10 mEq tablet,extended release RxNorm: 134789 1 Tablet(s) PO daily while on the lasix 05/10/2017 05/09/2017 Inactive potassium chloride E R 10 mEq tablet,extended release RxNorm: 446660 1 Tablet(s) PO daily while on the lasix 05/10/2017 05/12/2017 Inactive prednisone 20 mg tablet RxNorm: 639611 1 Tablet(s) PO BID x 2 days, then 1 pill daily x 3 days, then 1/2 pill every other day x 3 doses. 04/19/2017 06/13/2017 Inactive Zithromax Z-Linus 250 mg tablet RxNorm: 725414 1 Tablet(s) PO UD 04/13/2017 06/28/2017 Inactive prednisone 20 mg tablet RxNorm: 667433 1 Tablet(s) PO BID 04/13/2017 04/17/2017 Inactive levothyroxine 125 mc g tablet RxNorm: 470663 1 Tablet(s) PO daily 04/11/2017 10/07/2017 Inactive tramadol 50 mg tablet RxNorm: 401164 1 Tablet(s) PO Q4 PRN as needed for pain 03/27/2017 04/15/2017 In active [SAVINGS FOR UNINSURED PATIENTS -- BIN:0 18416, PCN: ASPROD1, Group: [id number], ID# [id number], Process claim through [employer]park[employer], for questions: . THIS IS NOT INSURANCE.] Kenalog 40 mg/mL madhavi pension for injection RxNorm: 3708016 1 Milliliter(s) Inj 03/27/2017 03/27/2017 In active tramadol 50 mg tablet RxNorm: 699112 1 Tablet(s) PO Q4H as needed for pain 03/09/2017 03/26/2017 In active [SAVINGS FOR UNINSURED PATIENTS -- BIN:0 68412, PCN: ASPROD1, Group: [id number], ID# [id number], Process claim through [employer]Imp[employer], for questions: . THIS IS NOT INSURANCE.] lisinopril 20 mg-hyd rochlorothiazide 25 mg tablet RxNorm: 822705 TAKE ONE TABLET BY MOUTH DAILY 01/29/2017 11/21/2017 Inactive lorazepam 1 mg tablet RxNorm: 432518 Tablet(s) TAKE TWO TABLETS BY MOUTH AT B EDTIME NEEDED FOR INSOMNIA AND ONE TABLET DAILY NEEDED ANXIETY 01/05/2017 04/04/2017 Inactive tramadol 50 mg tablet RxNorm: 752971 1 Tablet(s) PO Q4H as needed for pain 12/07/2016 01/13/2017 In active [SAVINGS FOR UNINSURED PATIENTS -- BIN:0 33920, PCN: ASPROD1, Group: [id number], ID# [id number], Process claim through [employer]Imp[employer], for questions: . THIS IS NOT INSURANCE.] Kenalog 40 mg/mL madhavi pension for injection RxNorm: 8829357 Milliliter(s) Inj 12/07/2016 12/07/2016 In active nystatin 100,000 uni t/mL oral suspension RxNorm: 768281 4 Milliliter(s) PO QI D 12/07/2016 12/11/2016 In active Francia-D 12 Hour 60 mg-120 mg tablet,extended release RxNorm: 004897 1 Tablet(s) PO BID 12/07/2016 01/11/2017 Inactive lorazepam 1 mg tablet RxNorm: 340299 Tablet(s) TAKE TWO TABLETS BY MOUTH AT B EDTIME AND ONE TABLET DAILY NEEDED 12/07/2016 01/04/2017 Inactive (Response to an electronic controlled substance refill request - RxReferenceNumber: [id number]) albuterol sulfate 2. 5 mg/3 mL (0.083 %) solution for nebulization RxNorm: 132181 3 Milliliter(s) INH TID 11/29/2016 11/28/2016 Inactive prednisone 10 mg tablet RxNorm: 047010 Tablet(s) PO UD 11/29/2016 12/05/2016 Inactive 6,5,4,3,2,1 doxycycline hyclate 100 mg tablet RxNorm: 586926 1 Tablet(s) PO BID 11/29/2016 12/04/2016 Inactive albuterol sulfate 2. 5 mg/3 mL (0.083 %) solution for nebulization RxNorm: 635546 3 Milliliter(s) INH TID 11/29/2016 12/03/2016 Inactive Kenalog 40 mg/mL madhavi pension for injection RxNorm: 9389304 Milliliter(s) Inj 11/28/2016 11/28/2016 In active tramadol 50 mg tablet RxNorm: 064256 1 Tablet(s) PO Q4H as needed for pain 11/15/2016 12/06/2016 In active [SAVINGS FOR UNINSURED PATIENTS -- BIN:0 59770, PCN: ASPROD1, Group: [id number], ID# [id number], Process claim through Mindlikes, for questions: . THIS IS NOT INSURANCE.] prednisone 20 mg tablet RxNorm: 256461 2 Tablet(s) PO daily 11/15/2016 11/19/2016 Inactive Advair Diskus 100 mc g-50 mcg/dose powder for inhalation RxNorm: 6471748 1 Puff(s) INH BID 11/15/2016 06/11/2017 Inactive ProAir HFA 90 mcg/ac tuation aerosol inhaler RxNorm: 221064 INHALE 1 TO 2 PUFFS F OUR TIMES A DAY NEEDED FOR ASTHMA 11/15/2016 04/13/2017 Inactive Zithromax Z-Linus 250 mg tablet RxNorm: 600608 1 Tablet(s) PO UD 11/15/2016 11/27/2016 Inactive Zyrtec 10 mg tablet RxNorm: 0178132 1 Tablet(s) PO daily 10/17/2016 11/15/2016 Inactive Keflex 500 mg capsule RxNorm: 148010 1 Capsule(s) PO TID 10/17/2016 10/23/2016 Inactive prednisone 10 mg tablet RxNorm: 928900 Tablet(s) PO UD 10/17/2016 11/28/2016 Inactive 6,5,4,3,2,1 tramadol 50 mg tablet RxNorm: 899830 1 Tablet(s) PO Q4H as needed for pain 09/28/2016 11/06/2016 In active [SAVINGS FOR UNINSURED PATIENTS -- BIN:0 14746, PCN: ASPROD1, Group: [id number], ID# [id number], Process claim through Mindlikes, for questions: . THIS IS NOT INSURANCE.] ProAir HFA 90 mcg/ac tuation aerosol inhaler RxNorm: 685560 INHALE 1 TO 2 PUFFS F OUR TIMES A DAY NEEDED FOR ASTHMA 09/15/2016 11/14/2016 Inactive doxycycline hyclate 100 mg tablet RxNorm: 965777 1 Tablet(s) PO BID 09/15/2016 09/24/2016 Inactive doxycycline hyclate 100 mg tablet RxNorm: 715785 1 Tablet(s) PO BID 07/29/2016 08/07/2016 Inactive tramadol 50 mg tablet RxNorm: 680001 1 Tablet(s) PO Q4H as needed for pain 07/29/2016 09/06/2016 In active [SAVINGS FOR UNINSURED PATIENTS -- BIN:0 32471, PCN: ASPROD1, Group: [id number], ID# [id number], Process claim through Mindlikes, for questions: . THIS IS NOT INSURANCE.] lorazepam 1 mg tablet RxNorm: 771807 Tablet(s) TAKE TWO TABLETS BY MOUTH AT B EDTIME AND ONE TABLET DAILY NEEDED 07/29/2016 10/26/2016 Inactive (Response to an electronic controlled substance refill request - RxReferenceNumber: [id number]) levothyroxine 125 mc g tablet RxNorm: 257456 1 Tablet(s) PO daily 06/29/2016 06/29/2016 Inactive levothyroxine 137 mc g tablet RxNorm: 293377 1 Tablet(s) PO daily 06/29/2016 12/25/2016 Inactive ketoconazole 2 % sha mpoo RxNorm: 418024 1 Application TOP BID 06/29/2016 07/03/2016 Inactive tramadol 50 mg tablet RxNorm: 380542 1 Tablet(s) PO Q4H as needed for pain 06/16/2016 07/25/2016 In active [SAVINGS FOR UNINSURED PATIENTS -- BIN:0 26003, PCN: ASPROD1, Group: [id number], ID# [id number], Process claim through Mindlikes, for questions: . THIS IS NOT INSURANCE.] Bactroban 2 % topica l ointment RxNorm: 667309 APPLY TO AFFECTED ARE A(S) TWO TIMES A DAY 06/16/2016 04/16/2017 Inactive fluconazole 150 mg t ablet RxNorm: 175825 1 Tablet(s) PO daily 06/01/2016 06/05/2016 Inactive gentamicin 0.1 % top ical ointment RxNorm: 567951 1 Application TOP QID 05/12/2016 05/25/2016 In active metronidazole 500 mg tablet RxNorm: 319259 1 Tablet(s) PO TID 05/11/2016 05/24/2016 Inactive gentamicin 0.1 % top ical ointment RxNorm: 983816 1 Application TOP QID 05/11/2016 05/11/2016 In active doxycycline hyclate 100 mg tablet RxNorm: 268006 1 Tablet(s) PO BID 05/11/2016 05/24/2016 Inactive lorazepam 1 mg tablet RxNorm: 820206 Tablet(s) TAKE TWO TABLETS BY MOUTH AT B EDTIME AND ONE TABLET DAILY NEEDED 05/02/2016 07/28/2016 Inactive (Response to an electronic controlled substance refill request - RxReferenceNumber: [id number]) Diflucan 150 mg tablet RxNorm: 174086 1 Tablet(s) PO daily x5 days then 1 x we ekly x 4 weeks. 05/02/2016 04/10/2017 Inactive Diflucan 150 mg tablet RxNorm: 438070 1 Tablet(s) PO every other day 04/19/2016 04/28/2016 In active Diflucan 150 mg tablet RxNorm: 206871 1 Tablet(s) PO every other day 04/19/2016 04/18/2016 In active Diflucan 150 mg tablet RxNorm: 849601 1 Tablet(s) PO daily 04/05/2016 04/11/2016 Inactive mupirocin 2 % topica l ointment RxNorm: 097930 1 Application TOP BID 04/05/2016 05/04/2016 Inactive tramadol 50 mg tablet RxNorm: 693134 1 Tablet(s) PO Q4H as needed for pain 04/05/2016 05/14/2016 In active [SAVINGS FOR UNINSURED PATIENTS -- BIN:0 73888, PCN: ASPROD1, Group: [id number], ID# [id number], Process claim through Mindlikes, for questions: . THIS IS NOT INSURANCE.] prednisone 10 mg tablet RxNorm: 123634 Tablet(s) PO UD 04/01/2016 09/26/2016 Inactive 6,5,4,3,2,1 levothyroxine 137 mc g tablet RxNorm: 922284 1 Tablet(s) PO daily 03/21/2016 03/20/2016 Inactive levothyroxine 137 mc g tablet RxNorm: 770935 1 Tablet(s) PO daily 03/21/2016 06/28/2016 Inactive Advair Diskus 100 mc g-50 mcg/dose powder for inhalation RxNorm: 9398832 1 Puff(s) INH BID 01/26/2016 05/24/2016 Inactive tramadol 50 mg tablet RxNorm: 931320 1 Tablet(s) PO Q4H as needed for pain 01/26/2016 03/05/2016 In active [SAVINGS FOR UNINSURED PATIENTS -- BIN:0 49908, PCN: ASPROD1, Group: [id number], ID# [id number], Process claim through MedImp[employer], for questions: . THIS IS NOT INSURANCE.] Bactroban 2 % topica l ointment RxNorm: 455075 APPLY TO AFFECTED ARE A(S) TWO TIMES A DAY 12/22/2015 12/31/2015 Inactive Bactrim DS 800 mg-16 0 mg tablet RxNorm: 596256 TAKE ONE TABLET BY [facility] TWICE A DAY 12/22/2015 04/18/2016 In active Bactrim DS 800 mg-16 0 mg tablet RxNorm: 898918 1 Tablet(s) PO BID 12/21/2015 01/21/2019 Inactive lisinopril 20 mg-hyd rochlorothiazide 25 mg tablet RxNorm: 691540 1 Tablet(s) PO daily 12/21/2015 06/17/2016 Inactive [SAVINGS FOR UNINSURED PATIENTS -- BIN:0 79728, PCN: ASPROD1, Group: [id number], ID# [id number], Process claim through MedImp[employer], for questions: . THIS IS NOT INSURANCE.] tramadol 50 mg tablet RxNorm: 722016 1 Tablet(s) PO Q4H as needed for pain 12/03/2015 01/11/2016 In active [SAVINGS FOR UNINSURED PATIENTS -- BIN:0 94257, PCN: ASPROD1, Group: [id number], ID# [id number], Process claim through [employer]Imp[employer], for questions: . THIS IS NOT INSURANCE.] lorazepam 1 mg tablet RxNorm: 935010 Tablet(s) TAKE TWO TABLETS BY MOUTH AT B EDTIME AND ONE TABLET DAILY NEEDED 11/26/2015 06/27/2018 Inactive (Response to an electronic controlled substance refill request - RxReferenceNumber: [id number]) Bactrim DS 800 mg-16 0 mg tablet RxNorm: 907516 1 Tablet(s) PO BID 11/25/2015 12/04/2015 Inactive levothyroxine 150 mc g tablet RxNorm: 045701 1 Tablet(s) PO daily 11/25/2015 03/20/2016 Inactive Bactroban 2 % topica l ointment RxNorm: 600931 1 Application TOP BID 10/12/2015 10/21/2015 Inactive Bactrim DS 800 mg-16 0 mg tablet RxNorm: 764917 1 Tablet(s) PO BID 09/07/2015 09/06/2015 Inactive Bactrim DS 800 mg-16 0 mg tablet RxNorm: 057377 1 Tablet(s) PO BID 09/07/2015 09/16/2015 Inactive lorazepam 1 mg tablet RxNorm: 215984 Tablet(s) TAKE TWO TABLETS BY MOUTH AT B EDTIME AND ONE TABLET DAILY NEEDED 08/28/2015 11/24/2015 Inactive (Response to an electronic controlled substance refill request - RxReferenceNumber: [id number]) levothyroxine 175 mc g tablet RxNorm: 980927 1 Tablet(s) PO daily 08/24/2015 11/24/2015 Inactive tramadol 50 mg tablet RxNorm: 058828 1 Tablet(s) PO Q4H as needed for pain 08/24/2015 09/11/2017 In active [SAVINGS FOR UNINSURED PATIENTS -- BIN:0 01459, PCN: ASPROD1, Group: [id number], ID# [id number], Process claim through Mindlikes, for questions: . THIS IS NOT INSURANCE.] lisinopril 20 mg-hyd rochlorothiazide 25 mg tablet RxNorm: 833247 1 Tablet(s) PO daily TAKE 1 TABLET BY MOUTH DAILY 08/24/2015 06/27/2018 Inactive ProAir HFA 90 mcg/ac tuation aerosol inhaler RxNorm: 245852 1-2 Puff(s) INH PRN I NHALE ONE TO TWO PUFFS BY MOUTH FOUR TIMES A DAY NEEDED FOR ASTHMA 08/24/2015 12/01/2015 In active ProAir HFA 90 mcg/ac tuation aerosol inhaler RxNorm: 5353806 INHALE ONE TO TWO PU FFS BY MOUTH FOUR TIMES A DAY NEEDED FOR ASTHMA 08/17/2015 08/23/2015 Inactive Advair Diskus 250 mc g-50 mcg/dose powder for inhalation RxNorm: 3542240 1 Puff(s) INH BID 07/20/2015 07/19/2015 Inactive Advair Diskus 250 mc g-50 mcg/dose powder for inhalation RxNorm: 0994995 1 Puff(s) INH BID 07/20/2015 11/16/2015 Inactive tramadol 50 mg tablet RxNorm: 096631 1 Tablet(s) PO Q4H as needed for pain 07/10/2015 08/17/2015 In active [SAVINGS FOR UNINSURED PATIENTS -- BIN:0 42868, PCN: ASPROD1, Group: [id number], ID# [id number], Process claim through Mindlikes, for questions: . THIS IS NOT INSURANCE.] Zithromax Z-Linus 250 mg tablet RxNorm: 657632 1 Tablet(s) PO UD 07/10/2015 01/18/2016 Inactive Keflex 500 mg capsule RxNorm: 991088 1 Capsule(s) PO TID 06/01/2015 06/07/2015 Inactive mupirocin 2 % topica l ointment RxNorm: 537141 1 Application TOP TID 06/01/2015 06/10/2015 Inactive lisinopril 20 mg-hyd rochlorothiazide 25 mg tablet RxNorm: 640866 TAKE 1 TABLET BY MOUT H DAILY 05/30/2015 08/23/2015 Inactive lisinopril 20 mg-hyd rochlorothiazide 25 mg tablet RxNorm: 422948 1 Tablet(s) PO daily 05/29/2015 11/24/2015 Inactive [SAVINGS FOR UNINSURED PATIENTS -- BIN:0 64953, PCN: ASPROD1, Group: [id number], ID# [id number], Process claim through Mindlikes, for questions: . THIS IS NOT INSURANCE.] lorazepam 1 mg tablet RxNorm: 660392 Tablet(s) TAKE TWO TABLETS BY MOUTH AT B EDTIME AND ONE TABLET DAILY NEEDED 04/17/2015 07/13/2015 Inactive (Response to an electronic controlled substance refill request - RxReferenceNumber: [id number]) levothyroxine 200 mc g tablet RxNorm: 693808 1 Tablet(s) PO daily 03/12/2015 08/23/2015 Inactive [SAVINGS FOR UNINSURED PATIENTS -- BIN:0 41482, PCN: ASPROD1, Group: [id number], ID# [id number], Process claim through [employer]park[employer], for questions: . THIS IS NOT INSURANCE.] lisinopril 20 mg-hyd rochlorothiazide 25 mg tablet RxNorm: 189961 1 Tablet(s) PO daily 03/11/2015 05/28/2015 Inactive [SAVINGS FOR UNINSURED PATIENTS -- BIN:0 92077, PCN: ASPROD1, Group: AME08, ID# [id number], Process claim through MedImp[employer], for questions: . THIS IS NOT INSURANCE.] levothyroxine 175 mc g tablet RxNorm: 267600 1 Tablet(s) PO daily 03/09/2015 03/11/2015 Inactive recheck blood in 3 months- THIS IS CORRE CT DOSAGE levothyroxine 175 mc g tablet RxNorm: 141366 1 Tablet(s) PO daily 03/09/2015 03/08/2015 Inactive recheck blood in 3 months levothyroxine 150 mc g tablet RxNorm: 635027 1 Tablet(s) PO daily 03/09/2015 03/08/2015 Inactive recheck blood in 3 months lorazepam 1 mg tablet RxNorm: 955877 TAKE TWO TABLETS BY MOUTH AT BEDTIME AND ONE TABLET DAILY NEEDED 12/25/2014 01/22/2015 Inactive (Response to an electronic controlled substance refill request - RxReferenceNumber: [id number]) lorazepam 1 mg tablet RxNorm: 020014 Tablet(s) TAKE TWO TABLETS BY MOUTH EVER Y NIGHT AT BEDTIME AND TAKE ONE TABLET BY MOUTH DAILY NEEDED 12/23/2014 12/25/2014 Inactive (Response to an electronic controlled [place] b[place] refill request - RxReferenceNumber: [id number]) levothyroxine 150 mc g tablet RxNorm: 317952 1 Tablet(s) PO daily 12/12/2014 03/08/2015 Inactive recheck blood in 3 months Diflucan 150 mg tablet RxNorm: 728876 1 Tablet(s) PO every other day (start af ter finished with Cipro) 11/17/2014 08/23/2015 Inactive tramadol 50 mg tablet RxNorm: 126847 1 Tablet(s) PO Q4H as needed for pain 11/10/2014 12/17/2014 In active [SAVINGS FOR UNINSURED PATIENTS -- BIN:0 50715, PCN: ASPROD1, Group: [id number], ID# [id number], Process claim through [employer], for questions: . THIS IS NOT INSURANCE.] Cipro 500 mg tablet RxNorm: 309410 1 Tablet(s) PO BID 10/23/2014 10/29/2014 Inactive Flagyl 500 mg tablet RxNorm: 083230 1 Tablet(s) PO TID 10/23/2014 10/29/2014 Inactive Cipro 500 mg tablet RxNorm: 676965 1 Tablet(s) PO BID 10/23/2014 10/22/2014 Inactive Flagyl 500 mg tablet RxNorm: 927726 1 Tablet(s) PO TID 10/23/2014 10/22/2014 Inactive Diflucan 150 mg tablet RxNorm: 542496 1 Tablet(s) PO every other day (start af ter finished with Cipro) 10/23/2014 11/16/2014 Inactive lorazepam 1 mg tablet RxNorm: 161942 TAKE TWO TABLETS BY MOUTH EVERY NIGHT AT BEDTIME AND TAKE ONE TABLET BY MOUTH DAILY NEEDED 10/21/2014 10/21/2014 Inactive (Response to an electronic controlled [place] bstance refill request - RxReferenceNumber: [id number]) lorazepam 1 mg tablet RxNorm: 889475 TAKE TWO TABLETS BY MOUTH EVERY NIGHT AT BEDTIME AND TAKE ONE TABLET BY MOUTH DAILY NEEDED 10/21/2014 11/18/2014 Inactive (Response to an electronic controlled north bstance refill request - RxReferenceNumber: [id number]) lorazepam 1 mg tablet RxNorm: 111268 Tablet(s) TAKE TWO TABLETS BY MOUTH AT B EDTIME, ALSO TAKE ONE TABLET BY MOUTH DAILY NEEDED 10/13/2014 10/21/2014 Inactive (Res ponse to an electronic controlled substance refill request - RxReferenceNumber: [id number]) ProAir HFA 90 mcg/ac tuation aerosol inhaler RxNorm: 0519213 1-2 inhale INH QID a s needed ASTHMA 10/13/2014 12/26/2014 Inactive ProAir HFA 90 mcg/ac tuation aerosol inhaler RxNorm: 3599230 1-2 inhale INH QID a s needed ASTHMA 09/18/2014 10/12/2014 Inactive meloxicam 7.5 mg tablet RxNorm: 887983 1 Tablet(s) PO daily 09/18/2014 03/10/2015 Inactive [SAVINGS FOR UNINSURED PATIENTS -- BIN:[id number], PCN: [id number], Group: [id number], ID# [id number], Process claim through [employer] [facility], for questions: . THIS IS NOT INSURANCE.] sulfamethoxazole 800 mg-trimethoprim 160 mg tablet RxNorm: 257769 1 Tablet(s) PO BID 09/18/2014 10/07/2014 Inactive levothyroxine 175 mc g tablet RxNorm: 844933 1 Tablet(s) PO daily 09/17/2014 12/11/2014 Inactive levothyroxine 175 mc g tablet RxNorm: 378245 1 Tablet(s) PO daily 09/17/2014 09/16/2014 Inactive lorazepam 1 mg tablet RxNorm: 647430 Tablet(s) TAKE TWO TABLETS BY MOUTH AT B EDTIME, ALSO TAKE ONE TABLET BY MOUTH DAILY NEEDED 09/12/2014 10/11/2014 Inactive (Res ponse to an electronic controlled substance refill request - RxReferenceNumber: [id number]) lorazepam 1 mg tablet RxNorm: 936364 TAKE TWO TABLETS BY MOUTH AT BEDTIME, AL SO TAKE ONE TABLET BY MOUTH DAILY NEEDED 09/08/2014 09/11/2014 Inactive (Res ponse to an electronic controlled substance refill request - RxReferenceNumber: [id number]) meloxicam 7.5 mg tablet RxNorm: 508965 1 Tablet(s) PO daily 09/01/2014 09/17/2014 Inactive [SAVINGS FOR UNINSURED PATIENTS -- BIN:0 36137, PCN: ASPROD1, Group: [id number], ID# [id number], Process claim through [employer], for questions: . THIS IS NOT INSURANCE.] lisinopril 20 mg-hyd rochlorothiazide 25 mg tablet RxNorm: 704803 1 Tablet(s) PO daily 09/01/2014 12/29/2014 Inactive [SAVINGS FOR UNINSURED PATIENTS -- BIN:0 49328, PCN: ASPROD1, Group: AME08, ID# [id number], Process claim through [employer], for questions: . THIS IS NOT INSURANCE.] tramadol 50 mg tablet RxNorm: 871960 1 Tablet(s) PO Q4H as needed for pain 08/20/2014 11/07/2014 In active [SAVINGS FOR UNINSURED PATIENTS -- BIN:0 30176, PCN: ASPROD1, Group: AME08, ID# [id number], Process claim through [employer], for questions: . THIS IS NOT INSURANCE.] meloxicam 7.5 mg tablet RxNorm: 427213 1 Tablet(s) PO daily 08/14/2014 08/31/2014 Inactive [SAVINGS FOR UNINSURED PATIENTS -- BIN:0 64821, PCN: ASPROD1, Group: AME08, ID# [id number], Process claim through [employer], for questions: . THIS IS NOT INSURANCE.] lorazepam 1 mg tablet RxNorm: 895965 2 Tablet(s) PO QHS and 1 tab qd PRN 08/01/2014 09/08/2014 In active [SAVINGS FOR UNINSURED PATIENTS -- BIN:0 65092, PCN: ASPROD1, Group: AME08, ID# [id number], Process claim through [employer], for questions: . THIS IS NOT INSURANCE.] levothyroxine 200 mc g tablet RxNorm: 349118 1 Tablet(s) PO daily 07/31/2014 09/16/2014 Inactive [SAVINGS FOR UNINSURED PATIENTS -- BIN:0 93949, PCN: ASPROD1, Group: AME08, ID# [id number], Process claim through [employer], for questions: . THIS IS NOT INSURANCE.] lorazepam 1 mg tablet RxNorm: 127976 2 Tablet(s) PO QHS and 1 tab qd PRN No Start Date 07/31/2014 Inactive Phenergan VC-Codeine oral RxNorm: 759369 oral No S tart Date 11/26/2017 Inactive meloxicam 7.5 mg tablet RxNorm: 009976 1 Tablet(s) PO daily No Start Date 08/13/2014 Inactive lisinopril 20 mg-hyd rochlorothiazide 25 mg tablet RxNorm: 255533 1 Tablet(s) PO daily No Start Date 08/31/2014 Inactive levothyroxine 200 mc g tablet RxNorm: 065734 1 Tablet(s) PO daily No Start Date 07/30/2014 Inactive Diflucan 150 mg tablet RxNorm: 999713 1 Tablet(s) PO every other day No Start Date 10/22/2014 Inactive Zithromax Z-Linus 250 mg tablet RxNorm: 006917 1 Tablet(s) PO UD No Start Date 07/09/2015 Inactive tramadol 50 mg tablet RxNorm: 853952 1 Tablet(s) PO Q6 as needed No Start Date 08/19/2014 Inactive Medication Administered Medication Codes Instruc tions Start Date Status Kenalog 40 mg/mL suspension for injection RxNorm: 0479403 1Milliliter 06/14/2017 N o longer Active Kenalog 40 mg/mL suspension for injection RxNorm: 3789356 1Milliliter 03/27/2017 N o longer Active Kenalog 40 mg/mL suspension for injection RxNorm: 5176189 Milliliter 12/07/2016 No longer Active Kenalog 40 mg/mL suspension for injection RxNorm: 0649513 Milliliter 11/28/2016 No longer Active Immunizations Vaccine [...] (3rd IS) 1.49 uIU/mL 01/21/2019 Free T4 Nee744 FREE T4 1.15 ng/dL 01/21/2019 Lipid Ord30 CHOL 231 mg/dL 10/24/2018 Lipid Ord30 HDL 56.0 mg/dl 10/24/2018 Lipid Ord30 TRIG 71 mg/dL 10/24/2018 Lipid Ord30 LDL 161 mg/dL 10/24/2018 Lipid Ord30 C/HDL 4.1 Ratio 10/24/2018 Comp Metabolic Jmd736 NA 141 mEq/L 10/24/2018 Comp Metabolic Eae656 K 3.7 mEq/L 10/24/2018 Comp Metabolic Nzq716 CL 103 mEq/L 10/24/2018 Comp Metabolic Whl174 CO2 30.0 mEq/L 10/24/2018 Comp Metabolic Ldw004 AN ION GAP 12 10/24/2018 Comp Metabolic Ehw207 GL UCOSE 98 mg/dL 10/24/2018 Comp Metabolic Fbd879 Cr eat 0.8 mg/dL 10/24/2018 Comp Metabolic Znr773 eG FR 71 ml/min/1.73m2 10/24 Comp Metabolic Vyr283 BUN 12 mg/dL 10/24/2018 Comp Metabolic Gib660 B/ C Ratio 14.5 Ratio 10/24/2018 Comp Metabolic Cwk602 CA LCIUM 9.2 mg/dL 10/24/2018 Comp Metabolic Oab566 AL K PHOS 76 U/L 10/24/2018 Comp Metabolic Ygk892 T(SGOT) 12 U/L 10/24/2018 Comp Metabolic Lxo574 AL T(SGPT) 9 U/L 10/24/2018 Comp Metabolic Mmz447 BI LI T 0.5 mg/dL 10/24/2018 Comp Metabolic Hvr978 AL BUMIN 4.3 g/dL 10/24/2018 Comp Metabolic Fgu800 TP RO 6.5 g/dL 10/24/2018 Comp Metabolic Agg410 GL OB 2.2 g/dL 10/24/2018 Comp Metabolic Kgu618 A/ G Ratio 2.0 Ratio 10/24/2018 Comp Metabolic Brd330 Os mo 281 mOsmo 10/24/2018 Free T4 Alv951 FREE T4 0.76 ng/dL 10/24/2018 Cbc With [...] 30.5 pg 10/24/2018 Cbc With Differential Ord2 [place]% 8.4 % 10/24/2018 Cbc With Differential Ord2 [...] 1.71 K/ul 10/24/2018 Cbc With Differential Ord2 [place] ABS# 0.4 K/ul 10/24/2018 Cbc With Differential [...] 30.0 pg 04/04/2018 Cbc With Differential Ord2 [place]% 10.9 % 04/04/2018 Cbc With Differential Ord2 [...] 1.42 K/ul 04/04/2018 Cbc With Differential Ord2 [place] ABS# 0.6 K/ul 04/04/2018 Cbc With Differential Ord2 Eos ABS# 0.1 K/ul 04/04/2018 Cbc With Differential Ord2 Baso ABS# 0.0 K/ul 04/04/2018 Free T4 Pgr942 FREE T4 1.25 ng/dL 04/04/2018 Tsh Ord6 [...] 30.2 pg 11/28/2017 Cbc With Differential Ord2 [place]% 10.1 % 11/28/2017 Cbc With Differential Ord2 [...] 1.33 K/ul 11/28/2017 Cbc With Differential Ord2 [place] ABS# 0.5 K/ul 11/28/2017 Cbc With Differential Ord2 Eos ABS# 0.1 K/ul 11/28/2017 Cbc With Differential Ord2 Baso ABS# 0.0 K/ul 11/28/2017 Free T4 Yxh723 FREE T4 1.43 ng/dL 11/28/2017 Lipid Ord30 CHOL 186 mg/dL 11/28/2017 Lipid Ord30 HDL 54.0 mg/dl 11/28/2017 Lipid Ord30 TRIG 59 mg/dL 11/28/2017 Lipid Ord30 LDL 120 mg/dL 11/28/2017 Lipid Ord30 C/HDL 3.4 Ratio 11/28/2017 Comp Metabolic Cev507 NA 141 mEq/L 11/28/2017 Comp Metabolic Zns338 K 4.0 mEq/L 11/28/2017 Comp Metabolic Yza358 CL 105 mEq/L 11/28/2017 Comp Metabolic Ocb147 CO2 29.0 mEq/L 11/28/2017 Comp Metabolic Cts360 AN ION GAP 11 11/28/2017 Comp Metabolic Iql962 GL UCOSE 91 mg/dL 11/28/2017 Comp Metabolic Plv356 Cr eat 0.8 mg/dL 11/28/2017 Comp Metabolic Vzj089 eG FR 74 ml/min/1.73m2 11/28 Comp Metabolic Ymn977 BUN 15 mg/dL 11/28/2017 Comp Metabolic Iay362 B/ C Ratio 18.8 Ratio 11/28/2017 Comp Metabolic Uak751 CA LCIUM 8.6 mg/dL 11/28/2017 Comp Metabolic Jlo654 AL K PHOS 76 U/L 11/28/2017 Comp Metabolic Ugx291 T(SGOT) 10 U/L 11/28/2017 Comp Metabolic Rrd179 AL T(SGPT) 8 U/L 11/28/2017 Comp Metabolic Jsj452 BI LI T 0.5 mg/dL 11/28/2017 Comp Metabolic Aik140 AL BUMIN 4.0 g/dL 11/28/2017 Comp Metabolic Fem773 TP RO 6.1 g/dL 11/28/2017 Comp Metabolic Qzq428 GL OB 2.1 g/dL 11/28/2017 Comp Metabolic Jyt710 A/ G Ratio 1.9 Ratio 11/28/2017 Comp Metabolic Tic693 Os mo 282 mOsmo 11/28/2017 Tsh Ord6 TSH (3rd IS) 3.31 uIU/mL 11/28/2017 Tsh Ord6 hTSH II 1.45 uIU/mL 03/27/2017 Free T4 Gbw034 FREE T4 1.23 ng/dL 03/27/2017 Comp Metabolic Nkr903 NA 140 mEq/L 09/28/2016 Comp Metabolic Cee288 K 3.9 mEq/L 09/28/2016 Comp Metabolic Qgf638 CL 104 mEq/L 09/28/2016 Comp Metabolic Zaf400 CO2 28.0 mEq/L 09/28/2016 Comp Metabolic Shd191 AN ION GAP 12 09/28/2016 Comp Metabolic Dtr714 GL UCOSE 97 mg/dL 09/28/2016 Comp Metabolic Msi878 Cr eat 0.8 mg/dL 09/28/2016 Comp Metabolic Exv295 eG FR 79 ml/min/1.73m2 09/28 Comp Metabolic Qpn017 BUN 13 mg/dL 09/28/2016 Comp Metabolic Bbx301 B/ C Ratio 17.1 Ratio 09/28/2016 Comp Metabolic Gol079 CA LCIUM 8.9 mg/dL 09/28/2016 Comp Metabolic Rcv091 AL K PHOS 100 U/L 09/28/2016 Comp Metabolic Rxi189 T(SGOT) 12 U/L 09/28/2016 Comp Metabolic Bcs450 AL T(SGPT) 9 U/L 09/28/2016 Comp Metabolic Wce090 BI LI T 0.4 mg/dL 09/28/2016 Comp Metabolic Qbp096 AL BUMIN 4.1 g/dL 09/28/2016 Comp Metabolic Jix925 TP RO 6.6 g/dL 09/28/2016 Comp Metabolic Mup850 GL OB 2.5 g/dL 09/28/2016 Comp Metabolic Ion485 A/ G Ratio 1.6 Ratio 09/28/2016 Comp Metabolic Cov734 Os mo 279 mOsmo 09/28/2016 Lipid Ord30 [...] 28.8 pg 09/28/2016 Cbc With Differential Ord2 [place]% 7.2 % 09/28/2016 Cbc With Differential Ord2 [...] 1.41 K/ul 09/28/2016 Cbc With Differential Ord2 [place] ABS# 0.5 K/ul 09/28/2016 Cbc With Differential Ord2 Eos ABS# 0.2 K/ul 09/28/2016 Cbc With Differential Ord2 Baso ABS# 0.0 K/ul 09/28/2016 Free T4 Eip734 FREE T4 1.43 ng/dL 09/28/2016 Tsh Ord6 hTSH II 0.52 uIU/mL 09/28/2016 Tsh Ord6 hTSH II 0.47 uIU/mL 06/16/2016 Comp Metabolic Hkq624 NA 139 mEq/L 06/16/2016 Comp Metabolic Kzi416 K 4.3 mEq/L 06/16/2016 Comp Metabolic Fbr110 CL 105 mEq/L 06/16/2016 Comp Metabolic Nog529 CO2 30.0 mEq/L 06/16/2016 Comp Metabolic Wzi799 AN ION GAP 8 06/16/2016 Comp Metabolic Cdg430 GL UCOSE 90 mg/dL 06/16/2016 Comp Metabolic Sgx499 Cr eat 0.7 mg/dL 06/16/2016 Comp Metabolic Qaq937 eG FR 91 ml/min/1.73m2 06/16 Comp Metabolic Lfm479 BUN 15 mg/dL 06/16/2016 Comp Metabolic Alu219 B/ C Ratio 22.4 Ratio 06/16/2016 Comp Metabolic Yqy292 CA LCIUM 8.8 mg/dL 06/16/2016 Comp Metabolic Mdu219 AL K PHOS 79 U/L 06/16/2016 Comp Metabolic Sof261 T(SGOT) 13 U/L 06/16/2016 Comp Metabolic Yov384 AL T(SGPT) 11 U/L 06/16/2016 Comp Metabolic Ybn839 BI LI T 0.5 mg/dL 06/16/2016 Comp Metabolic Nvm881 AL BUMIN 3.9 g/dL 06/16/2016 Comp Metabolic Ytx743 TP RO 6.1 g/dL 06/16/2016 Comp Metabolic Yke625 GL OB 2.2 g/dL 06/16/2016 Comp Metabolic Gsd236 A/ G Ratio 1.8 Ratio 06/16/2016 Comp Metabolic Qzs050 Os mo 278 mOsmo 06/16/2016 Lipid Ord30 [...] 28.9 pg 06/16/2016 Cbc With Differential Ord2 [place]% 8.1 % 06/16/2016 Cbc With Differential Ord2 [...] 1.70 K/ul 06/16/2016 Cbc With Differential Ord2 [place] ABS# 0.4 K/ul 06/16/2016 Cbc With Differential Ord2 Eos ABS# 0.2 K/ul 06/16/2016 Cbc With Differential Ord2 Baso ABS# 0.0 K/ul 06/16/2016 Free T4 Jdr935 FREE T4 1.42 ng/dL 06/16/2016 Free T4 Eiv965 FREE T4 1.34 ng/dL 03/04/2016 Tsh Ord6 hTSH II 0.56 uIU/mL 03/04/2016 Tsh Ord6 hTSH II 0.98 uIU/mL 01/27/2016 Free T4 Xfg869 FREE T4 1.19 ng/dL 01/27/2016 Free T4 Eap482 FREE T4 1.69 ng/dL 11/23/2015 Tsh Ord6 hTSH II 0.08 uIU/mL 11/23/2015 Lipid Ord30 CHOL 185 mg/dL 08/21/2015 Lipid Ord30 HDL 50.0 mg/dl 08/21/2015 Lipid Ord30 TRIG 88 mg/dL 08/21/2015 Lipid Ord30 LDL 117 mg/dL 08/21/2015 Lipid Ord30 C/HDL 3.7 Ratio 08/21/2015 Comp Metabolic Fnh992 NA 139 mEq/L 08/21/2015 Comp Metabolic Pvn846 K 4.3 mEq/L 08/21/2015 Comp Metabolic Llg935 CL 102 mEq/L 08/21/2015 Comp Metabolic Bvi462 CO2 27.0 mEq/L 08/21/2015 Comp Metabolic Cnb293 AN ION GAP 14 08/21/2015 Comp Metabolic Trz244 GL UCOSE 89 mg/dL 08/21/2015 Comp Metabolic Cyk275 Cr eat 0.7 mg/dL 08/21/2015 Comp Metabolic Zuh674 eG FR 85 ml/min/1.73m2 08/21 Comp Metabolic Wfe942 BUN 14 mg/dL 08/21/2015 Comp Metabolic Acj236 B/ C Ratio 19.7 Ratio 08/21/2015 Comp Metabolic Kgb633 CA LCIUM 9.5 mg/dL 08/21/2015 Comp Metabolic Imv471 AL K PHOS 123 U/L 08/21/2015 Comp Metabolic Dpn184 T(SGOT) 13 U/L 08/21/2015 Comp Metabolic Utc081 AL T(SGPT) 10 U/L 08/21/2015 Comp Metabolic Wsh211 BI LI T 0.4 mg/dL 08/21/2015 Comp Metabolic Pel605 AL BUMIN 4.1 g/dL 08/21/2015 Comp Metabolic Xio883 TP RO 6.8 g/dL 08/21/2015 Comp Metabolic Sqf304 GL OB 2.7 g/dL 08/21/2015 Comp Metabolic Nfs924 A/ G Ratio 1.5 Ratio 08/21/2015 Comp Metabolic Omj483 Os mo 277 mOsmo 08/21/2015 Free T4 Hig531 FREE T4 1.78 ng/dL 08/21/2015 Tsh Ord6 [...] Ord2 RDW 13.9 % 08/21/2015 Quick Strep Efj1355 Quic k Strep Negative 07/08/2015 Tsh Ord6 hTSH II 0.04 uIU/mL 05/20/2015 Free T4 Hum942 FREE T4 1.50 ng/dL 05/20/2015 Review of [...] Procedure Codes Date DESTRUCT PREMALG LESION CPT-4: 77545 01/19/2018 URINALYSIS NONAUTO W /O SCOPE CPT-4: 62366 09/12/2017 TRIAMCINOLONE ACET I [place] NOS CPT-4: J3301 06/14/2017 THER/PROPH/DIAG INJ SC/IM CPT-4: 21292 06/14/2017 PRESCRIP TRANSMIT A ERX SY CPT-4: G8553 06/14/2017 TRIAMCINOLONE ACET I [place] NOS CPT-4: J3301 03/27/2017 THER/PROPH/DIAG INJ SC/IM CPT-4: 02135 12/07/2016 TRIAMCINOLONE ACET I [place] NOS CPT-4: J3301 12/07/2016 THER/PROPH/DIAG INJ SC/IM CPT-4: 73037 11/28/2016 TRIAMCINOLONE ACET I [place] NOS CPT-4: J3301 11/28/2016 Vital Signs Date Vital 01/22/2019 Blood Pressure 1: 132/66 Code: 8480-6 BMI: 37.1 Code: 41664-5 Heart Rate 1: 73 bpm Height: 5'6" SpO2: 96% Weight: 230 lbs 11/21/2018 Blood Pressure 1: 120/64 Code: 8480-6 Heart Rate 1: 64 bpm 10/30/2018 Blood Pressure 1: 144/70 Code: 8480-6 BMI: 37.0 Code: 67573-4 Heart Rate 1: 76 bpm Height: 5'6" SpO2: 96% Weight: 229 lbs 06/28/2018 Blood Pressure 1: 110/66 Code: 8480-6 BMI: 37.1 Code: 19792-0 Heart Rate 1: 73 bpm Height: 5'6" SpO2: 98% Weight: 230 lbs 04/04/2018 Blood Pressure 1: 128/76 Code: 8480-6 BMI: 37.9 Code: 89126-0 Heart Rate 1: 86 bpm Height: 5'6" SpO2: 98% Weight: 235 lbs 01/19/2018 Blood Pressure 1: 122/68 Code: 8480-6 Heart Rate 1: 78 bpm Height: 5'6" SpO2: 97% Weight: 01/05/2018 Blood Pressure 1: 138/78 Code: 8480-6 BMI: 38.4 Code: 98995-6 Heart Rate 1: 73 bpm Height: 5'6" SpO2: 95% Weight: 238 lbs 11/29/2017 Blood Pressure 1: 138/80 Code: 8480-6 BMI: 38.7 Code: 51037-0 Heart Rate 1: 71 bpm Height: 5'6" SpO2: 97% Weight: 240 lbs 10/25/2017 Blood Pressure 1: 136/72 Code: 8480-6 BMI: 38.7 Code: 48852-3 Heart Rate 1: 92 bpm Height: 5'6" SpO2: 98% Weight: 240 lbs 09/12/2017 Blood Pressure 1: 132/68 Code: 8480-6 BMI: 39.7 Code: 71040-1 Heart Rate 1: 76 bpm Height: 5'6" SpO2: 98% Weight: 246 lbs 06/14/2017 Blood Pressure 1: 130/80 Code: 8480-6 BMI: 39.4 Code: 09071-9 Heart Rate 1: 73 bpm Height: 5'6" SpO2: 95% Temperature: 36.9 (C ) / 98.5 (F) Weight: 244 lbs 05/10/2017 Blood Pressure 1: 128/68 Code: 8480-6 BMI: 38.7 Code: 58025-4 Heart Rate 1: 69 bpm Height: 5'6" SpO2: 97% Weight: 240 lbs 04/19/2017 Blood Pressure 1: 138/74 Code: 8480-6 BMI: 38.7 Code: 31372-9 Heart Rate 1: 73 bpm Height: 5'6" SpO2: 96% Weight: 240 lbs 03/27/2017 Blood Pressure 1: 142/84 Code: 8480-6 BMI: 38.7 Code: 68623-5 Heart Rate 1: 69 bpm Height: 5'6" SpO2: 97% Weight: 240 lbs 01/26/2017 Blood Pressure 1: 136/68 Code: 8480-6 Heart Rate 1: 64 bpm Height: 5'6" SpO2: 96% Weight: 12/07/2016 Blood Pressure 1: 130/72 Code: 8480-6 BMI: 39.7 Code: 01364-1 Heart Rate 1: 73 bpm Height: 5'6" SpO2: 93% Temperature: 36.8 (C ) / 98.3 (F) Weight: 246 lbs 11/28/2016 Blood Pressure 1: 138/60 Code: 8480-6 BMI: 39.7 Code: 07797-7 Heart Rate 1: 81 bpm Height: 5'6" SpO2: 97% Weight: 246 lbs 11/15/2016 Blood Pressure 1: 134/78 Code: 8480-6 BMI: 39.7 Code: 15801-2 Heart Rate 1: 75 bpm Height: 5'6" SpO2: 93% Temperature: 36.8 (C ) / 98.2 (F) Weight: 246 lbs 10/17/2016 Blood Pressure 1: 120/64 Code: 8480-6 BMI: 38.4 Code: 34261-1 Heart Rate 1: 69 bpm Height: 5'6" SpO2: 98% Temperature: 37.2 (C ) / 98.9 (F) Weight: 238 lbs 09/28/2016 Blood Pressure 1: 158/76 Code: 8480-6 BMI: 39.4 Code: 52168-5 Heart Rate 1: 71 bpm Height: 5'6" SpO2: 97% Weight: 244 lbs 06/29/2016 Blood Pressure 1: 124/60 Code: 8480-6 BMI: 38.7 Code: 90719-8 Heart Rate 1: 71 bpm Height: 5'6" SpO2: 98% Weight: 240 lbs 06/01/2016 Blood Pressure 1: 120/62 Code: 8480-6 BMI: 38.6 Code: 17667-7 Heart Rate 1: 76 bpm Height: 5'6" SpO2: 98% Weight: 239 lbs 05/11/2016 Blood Pressure 1: 140/80 Code: 8480-6 BMI: 38.1 Code: 69202-1 Heart Rate 1: 88 bpm Height: 5'6" SpO2: 97% Weight: 236 lbs 04/05/2016 Blood Pressure 1: 142/80 Code: 8480-6 BMI: 38.4 Code: 91476-8 Heart Rate 1: 96 bpm Height: 5'6" SpO2: 98% Weight: 238 lbs 04/01/2016 Blood Pressure 1: 136/88 Code: 8480-6 BMI: 39.2 Code: 48214-4 Heart Rate 1: 86 bpm Height: 5'6" SpO2: 96% Weight: 243 lbs 01/26/2016 Blood Pressure 1: 124/76 Code: 8480-6 BMI: 39.2 Code: 18589-1 Heart Rate 1: 76 bpm Height: 5'6" SpO2: 97% Weight: 243 lbs 12/21/2015 Blood Pressure 1: 120/64 Code: 8480-6 BMI: 37.0 Code: 63190-2 Heart Rate 1: 98 bpm Height: 5'6" SpO2: 97% Weight: 229 lbs 10/12/2015 Blood Pressure 1: 150/64 Code: 8480-6 BMI: 37.4 Code: 12852-7 Heart Rate 1: 70 bpm Height: 5'6" SpO2: 94% Weight: 232 lbs 08/24/2015 Blood Pressure 1: 128/74 Code: 8480-6 BMI: 36.8 Code: 94566-2 Heart Rate 1: 88 bpm Height: 5'6" SpO2: 94% Temperature: 36.8 (C ) / 98.3 (F) Weight: 228 lbs 06/01/2015 Blood Pressure 1: 134/68 Code: 8480-6 BMI: 36.0 Code: 72611-8 Heart Rate 1: 70 bpm Height: 5'6" SpO2: 98% Weight: 223 lbs 05/21/2015 Blood Pressure 1: 126/72 Code: 8480-6 BMI: 35.2 Code: 66376-3 Heart Rate 1: 63 bpm Height: 5'6" SpO2: 95% Weight: 218 lbs 5 oz 03/26/2015 Blood Pressure 1: 140/62 Code: 8480-6 BMI: 35.3 Code: 08932-3 Heart Rate 1: 68 bpm Height: 5'6" Weight: 219 lbs 03/11/2015 Blood Pressure 1: 130/80 Code: 8480-6 BMI: 34.9 Code: 00683-1 Heart Rate 1: 76 bpm Height: 5'6" Temperature: 37.1 (C ) / 98.7 (F) Weight: 216 lbs 12/11/2014 Blood Pressure 1: 134/62 Code: 8480-6 BMI: 34.2 Code: 03022-0 Heart Rate 1: 72 bpm Height: 5'6" Weight: 212 lbs 09/18/2014 Blood Pressure 1: 148/80 Code: 8480-6 BMI: 34.7 Code: 75345-3 Heart Rate 1: 68 bpm Height: 5'6" Weight: 215 lbs 07/31/2014 Blood Pressure 1: 124/72 Code: 8480-6 BMI: 36.2 Code: 49637-3 Heart Rate 1: 68 bpm Height: 5'6" [...] Severity mi ld 09/28/2016 None hypothyroid 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 09/28/2016 None hypothyroid Onset and Resolution [...] Severity mi ld 06/01/2016 None hypothyroid 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 06/01/2016 None hypothyroid Onset and Resolution [...] and Resolution resolved 04/05/2016 None 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 P [facility], LEVEL IV Diagnosis: Mild intermittent asthma, uncomplicated[ICD10: J45.20] Diagnosis: Hypothyroidism, unspecified[ICD10: E03.9] Diagnosis: Low back pain[ICD10: M54.5] Lynn Finn MD, [facility] CPT- 4: 76904 01/22/2019 ([id number]) Edgar watkins no charge Diagnosis: Essential (primary) hypertension[ICD10: I10] Damari Finn MD, [facility] CPT-4: 18738 11/21/2018 ([id number]) 98764 EST. P [facility], LEVEL IV Diagnosis: Essential (primary) hypertension[ICD10: I10] Diagnosis: Hypothyroidism, unspecified[ICD10: E03.9] Diagnosis: Low back pain[ICD10: M54.5] Lynn Finn MD, [facility] CPT- 4: 01390 10/30/2018 ([id number]) 76375 EST. P [facility], LEVEL III Diagnosis: Acute recurrent maxillary sinusitis[ICD10: J01.01] Diagnosis: Other mucopurulent conjunctivitis, left eye[ICD10: H10.022] Diagnosis: Other allergic rhinitis[ICD10: J30.89] Lynn Finn MD, [facility] CPT-4: 90599 06/28/2018 61177 EST. PATIENT, LEVEL IV Diagnosis: Essential (primary) hypertension[ICD10: I10] Diagnosis: Other specified hypothyroidism[ICD10: E03.8] Diagnosis: Other specified anemias[ICD10: D64.89] Diagnosis: Localized edema[ICD10: R60.0] Mishel Finn MD, [facility] CPT-4: 45017 04/04/2018 ([id number]) 62464 EST. P ATIENT, LEVEL III Diagnosis: Mild persistent asthma, uncomplicated[ICD10: J45.30] Diagnosis: Actinic keratosis[ICD10: L57.0] Lynn Finn MD, [facility] CPT- 4: 75966 01/05/2018 ([id number]) Miscellaneou s no charge Diagnosis: Essential (primary) hypertension[ICD10: I10] Damari Finn MD, [facility] CPT-4: 30507 12/12/2017 17714 EST. PATIENT, LEVEL III Diagnosis: Essential (primary) hypertension[ICD10: I10] Diagnosis: Atrophy of thyroid (acquired)[ICD10: E03.4] Diagnosis: Low back pain[ICD10: M54.5] Mishel Finn MD, [facility] CPT-4: 18070 11/29/2017 77900 EST. PATIENT, LEVEL III Diagnosis: Pain in left hip[ICD10: M25.552] Mishel Finn MD, [facility] CPT-4: 18441 10/25/2017 12841 EST. PATIENT, LEVEL IV Diagnosis: Localized edema[ICD10: R60.0] Mishel Finn MD, [facility] CPT-4: 60981 09/12/2017 55594 EST. PATIENT, LEVEL IV Diagnosis: Mild persistent asthma with (acute) exacerbation[ICD10: J45.31] Mishel Finn MD, [facility] CPT-4: 45667 06/14/2017 09699 EST. PATIENT, LEVEL III Diagnosis: Localized edema[ICD10: R60.0] Diagnosis: Mild persistent asthma, uncomplicated[ICD10: J45.30] Mishel Finn MD, [facility] CPT-4: 32584 05/10/2017 29850 EST. PATIENT, LEVEL III Diagnosis: Mild persistent asthma with (acute) exacerbation[ICD10: J45.31] Mishel Finn MD, [facility] CPT-4: 22330 04/19/2017 ([id number]) 60299 EST. P ATIENT, LEVEL IV Diagnosis: Contusion of left wrist, initial encounter[ICD10: S60.212A] Diagnosis: Hypothyroidism, unspecified[ICD10: E03.9] Diagnosis: Mild persistent asthma with (acute) exacerbation[ICD10: J45.31] Diagnosis: Low back pain[ICD10: M54.5] Lynn Finn MD, [facility] CPT- 4: 09144 03/27/2017 ([id number]) 27607 EST. P [facility], LEVEL IV Diagnosis: Essential (primary) hypertension[ICD10: I10] Diagnosis: Atrophy of thyroid (acquired)[ICD10: E03.4] Diagnosis: Low back pain[ICD10: M54.5] Damari Finn MD, [facility] CPT-4: 50741 01/26/2017 60924 EST. PATIENT, LEVEL III Diagnosis: Other allergic rhinitis[ICD10: J30.89] Diagnosis: Mild persistent asthma with (acute) exacerbation[ICD10: J45.31] Mishel Finn MD, [facility] CPT-4: 79553 12/07/2016 22668 EST. PATIENT, LEVEL III Diagnosis: Mild persistent asthma with (acute) exacerbation[ICD10: J45.31] Mishel Finn MD, [facility] CPT-4: 76468 11/28/2016 05271 EST. PATIENT, LEVEL III Diagnosis: Mild persistent asthma with (acute) exacerbation[ICD10: J45.31] Diagnosis: Acute bronchitis due to other specified organisms[ICD10: J20.8] Mishel Finn MD, [facility] CPT-4: 52781 11/15/2016 80331 EST. PATIENT, LEVEL IV Diagnosis: Other acute sinusitis[ICD10: J01.80] Diagnosis: Other allergic rhinitis[ICD10: J30.89] Diagnosis: Mild persistent asthma with (acute) exacerbation[ICD10: J45.31] Mishel Finn MD, [facility] CPT-4: 51716 10/17/2016 ([id number]) 14496 EST. P ATIENT, LEVEL IV Diagnosis: Essential (primary) hypertension[ICD10: I10] Diagnosis: Low back pain[ICD10: M54.5] Damari Finn MD, [facility] CPT-4: 88216 09/28/2016 91829 EST. PATIENT, LEVEL III Diagnosis: Tinea barbae and tinea capitis[ICD10: B35.0] Diagnosis: Other specified hypothyroidism[ICD10: E03.8] Mishel Finn MD, [facility] CPT-4: 47662 06/29/2016 ([id number]) 30978 EST. P ATIENT, LEVEL IV Diagnosis: Essential (primary) hypertension[ICD10: I10] Diagnosis: Atrophy of thyroid (acquired)[ICD10: E03.4] Diagnosis: Rash and other nonspecific skin eruption[ICD10: R21] Damari Finn MD, [facility] CPT-4: 15236 06/01/2016 ([id number]) 20363 EST. P ATIENT, LEVEL III Diagnosis: Cellulitis of groin[ICD10: L03.314] Damari Finn MD, [facility] CPT- 4: 55572 05/11/2016 ([id number]) 72546 EST. P ATIENT, LEVEL IV Diagnosis: Hypothyroidism, unspecified[ICD10: E03.9] Diagnosis: Candidiasis of vulva and vagina[ICD10: B37.3] Diagnosis: Essential (primary) hypertension[ICD10: I10] Diagnosis: Low back pain[ICD10: M54.5] Lynn Finn MD, [facility] [facility] CPT- 4: 05782 04/05/2016 11295 EST. PATIENT, LEVEL III Diagnosis: Other acute sinusitis[ICD10: J01.80] Diagnosis: Rash and other nonspecific skin eruption[ICD10: R21] Mishel Finn MD, [facility] CPT-4: 14814 04/01/2016 ([id number]) 51933 EST. P ATIENT, LEVEL IV Diagnosis: Essential (primary) hypertension[ICD10: I10] Diagnosis: Hypothyroidism, unspecified[ICD10: E03.9] Diagnosis: Low back pain[ICD10: M54.5] Diagnosis: Other obesity due to excess calories[ICD10: E66.09] Lynn Finn MD, [facility] CPT-4: 17611 01/26/2016 55290 EST. PATIENT, LEVEL IV Diagnosis: Essential (primary) hypertension[ICD10: I10] Diagnosis: Cutaneous abscess of face[ICD10: L02.01] Mishel Finn MD, [facility] CPT-4: 56958 12/21/2015 ([id number]) 19675 EST. P ATIENT, LEVEL III Diagnosis: Cutaneous abscess of groin[ICD10: L02.214] Diagnosis: Hypothyroidism, unspecified[ICD10: E03.9] Lynn Finn MD, [facility] CPT-4: 78501 10/12/2015 ([id number]) 10415 EST. P ATIENT, LEVEL III Diagnosis: Essential (primary) hypertension[ICD10: I10] Diagnosis: Hypothyroidism, unspecified[ICD10: E03.9] Diagnosis: Allergic rhinitis, unspecified[ICD10: J30.9] Lynn Finn MD, [facility] CPT-4: 21825 08/24/2015 ([id number]) 85253 EST. P ATIENT, LEVEL III Diagnosis: Skin infection[ICD9: 686.9] Damari Finn MD, [facility] CPT-4: 97473 06/01/2015 ([id number]) 71462 EST. P ATIENT, LEVEL III Diagnosis: Hypothyroidism[ICD9: 244.9] Diagnosis: ESSENTIAL HYPERTENSION[ICD9: 401.9] Damari Finn MD, [facility] CPT- 4: 82324 05/21/2015 ([id number]) 89560 EST. P ATIENT, LEVEL III Diagnosis: Hypothyroidism[ICD9: 244.9] Diagnosis: Fingernail abnormalities[ICD9: 703.8] Lynn Finn MD, [facility] CPT-4: 03207 03/26/2015 ([id number]) 50126 EST. P ATIENT, LEVEL II Diagnosis: Hypothyroidism[ICD9: 244.9] Maritza Finn MD, [facility] CPT-4: 11035 03/11/2015 ([id number]) 50404 EST. P ATIENT, LEVEL IV Diagnosis: ESSENTIAL HYPERTENSION[ICD9: 401.9] Diagnosis: Low back pain[ICD9: 724.2] Diagnosis: Hypothyroidism[ICD9: 244.9] Daamri Finn MD, [facility] CPT-4: 88060 12/11/2014 ([id number]) 52515 EST. P ATIENT, LEVEL IV Diagnosis: Hidradenitis suppurativa[ICD9: 705.83] Diagnosis: ESSENTIAL HYPERTENSION[ICD9: 401.9] Diagnosis: Low back pain[ICD9: 724.2] Diagnosis: Lumbar spinal stenosis[ICD9: 724.02] Diagnosis: HYPOTHYROIDISM[ICD9: 244.9] [facility] CPT-4: 29096 09/18/2014 Office outpatient ne w 30 minutes Diagnosis: ESSENTIAL HYPERTENSION[ICD9: 401.9] Diagnosis: Hypothyroidism[ICD9: 244.9] Diagnosis: Low back pain[ICD9: 724.2] [facility] CPT- 4: 73778 07/31/2014 Plan of Care Planned Activity Notes [...] patient's termination from this medical practice. 01/22/2019 Patient Education: Patient Medication Summary Completed [...] indicated 10/30/2018 Appointment: Lynn Arenas WPtel: [phone] [phone] [place] (30 min) Complex 10/30/2018 Patient Education: Patient Medication Summary Completed 10/30/2018 Patient Education: Hypertension Completed 10/30/2018 Patient Education: Back Pain Completed 10/30/2018 Appointment: Lynn Arenas WPtel: [phone] [phone] [place] (30 min) Complex 10/26/2018 Patient Education: Patient Medication Summary Completed 10/23/2018 Appointment: Lynn Arenas WPtel: [phone] [phone] [place] (15 min) Moderate 10/19/2018 [phone] [facility] [place] (15 min) Moderate 09/19/2018 Visit Plan: [...] daily. 06/28/2018 [phone] (30 min) Complex 06/28/2018 [...] to monitor. 04/04/2018 Appointment: Mishel Balderrama WPtel: [facility] (15 min) Moderate 04/04/2018 Patient Education: Patient Medication Summary Completed 04/04/2018 Visit Plan: Wound Instructions - Pt was instructed to keep the wound clean, wash with antibacterial soap, use triple antibiotic ointment, call if redness, pustular drainage, or any other acute concerns. 01/19/2018 Appointment: Lynn Arenas WPtel: [phone] (30 min) Complex 01/19/2018 Patient Education: Patient [...] acute concerns. 01/05/2018 Appointment: Lynn Arenas WPtel: [phone] (30 min) Complex 01/05/2018 Patient Education: [...] improve. 11/29/2017 Appointment: Mishel Balderrama WPtel: [phone] [facility] [place] (30 min) Complex 11/29/2017 Patient Education: [...] not improve. 10/25/2017 Appointment: Mishel Balderrama WPtel: [phone] [facility] [place] (30 min) Complex 10/25/2017 Patient Education: [...] peripheral edema. 09/12/2017 Appointment: Mishel Balderrama WPtel: [facility] [place] ([facility] min) Complex 09/12/2017 Patient Education: Patient Medication Summary Completed 09/12/2017 Appointment: [facility] [phone] [phone] [place] (30 min) Complex 06/27/2017 Visit [...] changes. 06/14/2017 Appointment: [facility] Balderrama [facility] [phone] [facility] [place] (15 min) Moderate 06/14/2017 Patient [...] changes 05/10/2017 Appointment: Mis[facility] Balderrama [facility]Ptel[facility] [phone] [facility] [place] (15 min) Moderate [...] changes. 04/19/2017 Appointment: Mishel Balderrama WPtel: [phone] [facility] (15 min) Moderate 04/19/2017 Patient Education: Patient [...] on previous levels of control. Low back nviw-qouzept-rlqyaf tramadol for prn use 03/27/2017 Appointment: Lynn [...] improve. 01/26/2017 App[facility]ment: [facility]el[facility] [phone] [facility] (15 min) Moderate 01/26/2017 Patient [...] concerns. 12/07/2016 Appointment: Mis[facility] Balderrama [facility]Ptel[facility] [phone] [facility] (15 min) Moderate 12/07/2016 Patient Education: [...] acute changes. 11/28/2016 Appointment: Mishel Balderrama WPtel: [facility] (15 min) Moderate 11/28/2016 Patient Education: Patient Medication Summary Completed 11/28/2016 Appointment: Mishel Balderrama WPtel: [phone] [facility] (15 min) Moderate 11/24/2016 Visit Plan: Bronchitis [...] acute changes. 11/15/2016 Appointment: Mishel Balderrama WPtel: [phone] [facility] (30 min) Complex 11/15/2016 Patient Education: [...] acute changes. 10/17/2016 Appointment: Mishel Balderrama WPtel: [facility] (30 min) Complex 10/17/2016 Patient Education: [...] prn tylenol 09/28/2016 Appointment: [facility] Finn [facility]Ptel[facility] [phone] [facility] (15 min) Moderate 09/28/2016 Patient [...] control. 06/29/2016 Appointment: Lynn Arenas WPtel: [phone] [phone] (15 min) Moderate 06/29/2016 Patient Education: Patient [...] for fluconazole 06/01/2016 Appointment: Damari Finn WPtel: [facility] (15 min) Moderate 06/01/2016 Patient Education: Patient Medication Summary Completed 06/01/2016 Patient Education: Obesity Completed 06/01/2016 Visit Plan: Cellulitis - continue w ith oral antibiotics as previously directed, return to clinic as previously directed, call for acute change in symptoms, worsening redness, warmth, discharge. 05/11/2016 Appointment: Damari Finn WPtel: [phone] [phone] (15 min) Moderate 05/11/2016 Patient Education: Patient [...] any concerns. 04/01/2016 Appointment: Lynn Arenas WPtel: [facility] [address] (30 min) Complex 04/01/2016 Patient Education: Patient Medication Summary Completed 04/01/2016 Patient Education: Obesity Completed 04/01/2016 Appointment: Lynn Arenas WPtel: [facility] [place] [phone] (30 min) Complex 03/29/2016 Visit Plan: Hypertension [...] levels of control. Low back pain-refill tramadol Mdexj-tnknsyvgbd-qkuloatr resolved 01/26/2016 Appointment: Lynn Arenas WPtel: [phone] (30 min) Complex 01/26/2016 Patient Education: Patient Medication Summary Completed 01/26/2016 Patient Education: Obesity Completed 01/26/2016 Care Plan: BMI Above normal followup RADHA F-MGMT EDUC & TRAIN 1 PT Pending 01/26/2016 Care Plan: Referral Order SNOMED-CT : [id number] Pending 01/07/2016 Appointment: Lynn Arenas WPtel: [phone] (15 min) Moderate 12/24/2015 [...] nor improving. 06/01/2015 Appointment: Damari Finn WPtel: [facility] (15 min) Moderate 06/01/2015 Patient [...] 03/11/2015 Visit Plan: Hypertension - well con francineed - continue with current medications, continue with [...] refill tramadol 12/11/2014 Appointment: Damari Finn WPtel: [facility] follow up 12/11/2014 Patient Education: Patient Medication Summary Completed 12/11/2014 Patient Education: Hypertension Completed 12/11/2014 Appointment: Damari Finn WPtel: [facility] follow up 11/27/2014 Visit Plan: Hidradenitis [...] to get her back MRI done at [facility] in [place] as that is where her specialist will be once we get her an appt with one of the local Neurosurgeons. 09/18/2014 Appointment: Dam[facility] Finn [facility]Ptel[facility] [phone] [facility] Follow up 09/18/2014 Patient Education: [...] Appointment: Lynn Aren[facility]Ptel[facility] [phone] [facility] New Patient 07/31/2014 Patient Education: Patient Medication [...] . 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 Low back dssl-fikiuag-qiomvz tramadol for prn use claritin or zyrtec [...] . 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 Declined Procedure: (02418) FLU VAC NO PRSV 4 JUSTYNA 3 YRS+; Declined Reason: refused Physical therapy at [facility] . Hypertension - well controlled [...] levels of control. Low back pain-refill tramadol Djzsq-ymmsxphxaw-ikpeftqo resolved . Hypertension - wel l controlled [...] to get her back MRI done at [facility] in [place] as that is where her specialist will [...]
--- OUTSIDE RECORDS SUMMARY | 2020-02-20 19:06 | XMS REPORT | CCD ---
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 Unknown Has never used illegal drugs 014 Allergies, Adverse Reactions, Alerts Substance Reaction Codes Entered Date Inactivated Date Status * NO KNOWN FOOD BEVERLY RGIES Unknown 07/31/2014 No Inactive Date Active bactrim hives, rash RxNorm: 567004 04/05/2016 No Inactive Date Active Past Medical [...] Fill Instructions lorazepam 1 mg tablet RxNorm: 251626 Tablet(s) TAKE TWO TABLETS BY MOUTH AT B EDTIME NEEDED FOR INSOMNIA AND ONE TABLET DAILY NEEDED ANXIETY 01/04/2019 03/03/2019 Active tramadol 50 mg tablet RxNorm: 197702 1 Tablet(s) PO Q4 PRN as needed for pain 12/05/2018 01/13/2019 In active Keflex 500 mg capsule RxNorm: 830290 1 Capsule(s) PO TID 12/05/2018 12/11/2018 Inactive ciprofloxacin 0.3 % eye drops RxNorm: 502428 INSTILL TWO DROPS TO THE AFFECTED EYE(S) THREE TIMES A DAY 11/23/2018 12/25/2018 Inactive levothyroxine 137 mc g tablet RxNorm: 405594 1 Tablet(s) PO daily TAKE ONE TABLET BY MOUTH DAILY ON AN EMPTY STOMACH 10/30/2018 01/22/2020 Active ProAir HFA 90 mcg/ac tuation aerosol inhaler RxNorm: 2190830 1-2 Puff(s) INH Q4 P RN INHALE 1 TO 2 PUFFS FOUR TIMES A DAY NEEDED FOR ASTHMA 10/30/2018 01/27/2019 Active tramadol 50 mg tablet RxNorm: 675779 1 Tablet(s) PO Q4 PRN as needed for pain 10/29/2018 12/04/2018 In active levothyroxine 125 mc g tablet RxNorm: 967298 1 Tablet(s) PO daily TAKE ONE TABLET BY MOUTH DAILY ON AN EMPTY STOMACH 09/06/2018 10/29/2018 Inactive lorazepam 1 mg tablet RxNorm: 903522 Tablet(s) TAKE TWO TABLETS BY MOUTH AT B EDTIME NEEDED FOR INSOMNIA AND ONE TABLET DAILY NEEDED ANXIETY 09/06/2018 11/02/2018 Inactive tramadol 50 mg tablet RxNorm: 007059 1 Tablet(s) PO Q4 PRN as needed for pain 09/06/2018 10/15/2018 In active tramadol 50 mg tablet RxNorm: 970355 1 Tablet(s) PO Q4 PRN as needed for pain 07/06/2018 08/14/2018 In active ciprofloxacin 0.3 % eye drops RxNorm: 822862 2 Drop(s) ophthalmic (eye) TID 06/28/2018 07/07/2018 In active lorazepam 1 mg tablet RxNorm: 577670 Tablet(s) TAKE TWO TABLETS BY MOUTH AT B EDTIME NEEDED FOR INSOMNIA AND ONE TABLET DAILY NEEDED ANXIETY 06/28/2018 08/26/2018 Inactive doxycycline hyclate 100 mg tablet RxNorm: 3507389 1 Tablet(s) PO BID 06/28/2018 07/04/2018 Inactive tramadol 50 mg tablet RxNorm: 478744 1 Tablet(s) PO Q4 PRN as needed for pain 06/13/2018 07/05/2018 In active lorazepam 1 mg tablet RxNorm: 463722 Tablet(s) TAKE TWO TABLETS BY MOUTH AT B EDTIME NEEDED FOR INSOMNIA AND ONE TABLET DAILY NEEDED ANXIETY 05/23/2018 06/27/2018 Inactive tramadol 50 mg tablet RxNorm: 863724 1 Tablet(s) PO Q4 PRN as needed for pain 05/23/2018 06/12/2018 In active levothyroxine 125 mc g tablet RxNorm: 767117 Tablet(s) TAKE ONE TA BLET BY MOUTH DAILY ON AN EMPTY STOMACH 05/23/2018 09/05/2018 Inactive tramadol 50 mg tablet RxNorm: 934433 1 Tablet(s) PO Q4 PRN as needed for pain 05/17/2018 05/22/2018 In active levothyroxine 125 mc g tablet RxNorm: 467760 TAKE ONE TABLET BY MO UT DAILY 05/15/2018 06/27/2018 In active levothyroxine 125 mc g tablet RxNorm: 876541 TAKE ONE TABLET BY MO UTH DAILY 05/15/2018 06/27/2018 In active tramadol 50 mg tablet RxNorm: 723387 1 Tablet(s) PO Q4 PRN as needed for pain 04/30/2018 05/16/2018 In active Advair Diskus 100 mc g-50 mcg/dose powder for inhalation RxNorm: 0318104 1 Puff(s) INH BID 04/06/2018 01/21/2019 Inactive Symbicort 80 mcg-4.5 mcg/actuation HFA aerosol inhaler RxNorm: 6244107 2 Puff(s) INH BID 04/06/2018 01/21/2019 Inactive Advair Diskus 250 mc g-50 mcg/dose powder for inhalation RxNorm: 0013530 1 Puff(s) INH BID 04/05/2018 09/01/2018 Inactive Zyrtec 10 mg tablet RxNorm: 4281669 1 Tablet(s) PO daily x1 week then PRN 04/05/2018 08/02/2018 In active lisinopril 20 mg-hyd rochlorothiazide 25 mg tablet RxNorm: 510873 Tablet(s) TAKE ONE TABLET BY MOUTH DAILY 04/05/2018 10/29/2018 Inactive Zyrtec 10 mg tablet RxNorm: 1539277 1 Tablet(s) PO daily 04/04/2018 05/03/2018 Inactive tramadol 50 mg tablet RxNorm: 053696 1 Tablet(s) PO Q4 PRN as needed for pain 03/13/2018 04/21/2018 In active lorazepam 1 mg tablet RxNorm: 573810 Tablet(s) TAKE TWO TABLETS BY MOUTH AT B EDTIME NEEDED FOR INSOMNIA AND ONE TABLET DAILY NEEDED ANXIETY 03/02/2018 04/30/2018 Inactive levothyroxine 125 mc g tablet RxNorm: 712287 1 Tablet(s) PO daily 02/06/2018 05/06/2018 Inactive levothyroxine 125 mc g tablet RxNorm: 351603 TAKE ONE TABLET BY [facility] DAILY ON AN EMPTY STOMACH 02/06/2018 05/22/2018 Inactive tramadol 50 mg tablet RxNorm: 309161 1 Tablet(s) PO Q4 PRN as needed for pain 01/26/2018 03/06/2018 In active lorazepam 1 mg tablet RxNorm: 039014 Tablet(s) TAKE TWO TABLETS BY MOUTH AT B EDTIME NEEDED FOR INSOMNIA AND ONE TABLET DAILY NEEDED ANXIETY 01/23/2018 06/27/2018 Inactive Symbicort 80 mcg-4.5 mcg/actuation HFA aerosol inhaler RxNorm: 8029045 INH 01/05/2018 06/27/2018 In active tramadol 50 mg tablet RxNorm: 912107 1 Tablet(s) PO Q4 PRN as needed for pain 01/04/2018 01/25/2018 In active Advair Diskus 250 mc g-50 mcg/dose powder for inhalation RxNorm: 2706554 1 Puff(s) INH BID 11/29/2017 03/28/2018 Inactive hydrochlorothiazide 12.5 mg tablet RxNorm: 150262 1 Tablet(s) PO daily 11/29/2017 12/28/2017 In active tramadol 50 mg tablet RxNorm: 529982 1 Tablet(s) PO Q4 PRN as needed for pain 11/23/2017 01/01/2018 In active tramadol 50 mg tablet RxNorm: 572230 1 Tablet(s) PO Q4 PRN as needed for pain 10/06/2017 11/14/2017 In active lorazepam 1 mg tablet RxNorm: 984005 Tablet(s) TAKE TWO TABLETS BY MOUTH AT B EDTIME NEEDED FOR INSOMNIA AND ONE TABLET DAILY NEEDED ANXIETY 09/12/2017 06/27/2018 Inactive tramadol 50 mg tablet RxNorm: 294959 1 Tablet(s) PO Q4 PRN as needed for pain 09/12/2017 10/05/2017 In active tramadol 50 mg tablet RxNorm: 911071 1 Tablet(s) PO Q4 PRN as needed for pain 08/15/2017 09/11/2017 In active tramadol 50 mg tablet RxNorm: 027148 1 Tablet(s) PO Q4 PRN as needed for pain 06/29/2017 08/07/2017 In active ProAir HFA 90 mcg/ac tuation aerosol inhaler RxNorm: 8564253 INHALE 1 TO 2 PUFFS FOUR TIMES A DAY NEEDED FOR ASTHMA 06/14/2017 11/10/2017 Inactive prednisone 20 mg tablet RxNorm: 490570 1 Tablet(s) PO BID x 2 days, then 1 pill daily x 3 days, then 1/2 pill every other day x 3 doses. 06/14/2017 09/11/2017 Inactive Kenalog 40 mg/mL madhavi pension for injection RxNorm: 1101301 1 Milliliter(s) Inj 06/14/2017 06/14/2017 In active Zyrtec 10 mg tablet RxNorm: 1632533 1 Tablet(s) PO daily 06/14/2017 07/13/2017 Inactive tramadol 50 mg tablet RxNorm: 884102 1 Tablet(s) PO Q4 PRN as needed for pain 06/08/2017 06/27/2017 In active [SAVINGS FOR UNINSURED PATIENTS -- BIN:0 43392, PCN: ASPROD1, Group: [id number], ID# [id number], Process claim through [employer], for questions: . THIS IS NOT INSURANCE.] tramadol 50 mg tablet RxNorm: 728183 1 Tablet(s) PO Q4 PRN as needed for pain 05/16/2017 06/04/2017 In active [SAVINGS FOR UNINSURED PATIENTS -- BIN:0 29403, PCN: ASPROD1, Group: [id number], ID# [id number], Process claim through [employer], for questions: . THIS IS NOT INSURANCE.] lorazepam 1 mg tablet RxNorm: 028866 Tablet(s) TAKE TWO TABLETS BY MOUTH AT B EDTIME NEEDED FOR INSOMNIA AND ONE TABLET DAILY NEEDED ANXIETY 05/16/2017 08/13/2017 Inactive Lasix 20 mg tablet RxNorm: 1 Tablet(s) PO daily 05/10/2017 05/09/2017 Inactive Lasix 20 mg tablet RxNorm: 1 Tablet(s) PO daily 05/10/2017 05/12/2017 Inactive potassium chloride E R 10 mEq tablet,extended release RxNorm: 921448 1 Tablet(s) PO daily while on the lasix 05/10/2017 05/09/2017 Inactive potassium chloride E R 10 mEq tablet,extended release RxNorm: 729977 1 Tablet(s) PO daily while on the lasix 05/10/2017 05/12/2017 Inactive prednisone 20 mg tablet RxNorm: 548147 1 Tablet(s) PO BID x 2 days, then 1 pill daily x 3 days, then 1/2 pill every other day x 3 doses. 04/19/2017 06/13/2017 Inactive Zithromax Z-Linus 250 mg tablet RxNorm: 424925 1 Tablet(s) PO UD 04/13/2017 06/28/2017 Inactive prednisone 20 mg tablet RxNorm: 107701 1 Tablet(s) PO BID 04/13/2017 04/17/2017 Inactive levothyroxine 125 mc g tablet RxNorm: 641928 1 Tablet(s) PO daily 04/11/2017 10/07/2017 Inactive tramadol 50 mg tablet RxNorm: 020198 1 Tablet(s) PO Q4 PRN as needed for pain 03/27/2017 04/15/2017 In active [SAVINGS FOR UNINSURED PATIENTS -- BIN:0 47448, PCN: ASPROD1, Group: [id number], ID# [id number], Process claim through [employer], for questions: . THIS IS NOT INSURANCE.] Kenalog 40 mg/mL madhavi pension for injection RxNorm: 2487329 1 Milliliter(s) Inj 03/27/2017 03/27/2017 In active tramadol 50 mg tablet RxNorm: 027708 1 Tablet(s) PO Q4H as needed for pain 03/09/2017 03/26/2017 In active [SAVINGS FOR UNINSURED PATIENTS -- BIN:0 96399, PCN: ASPROD1, Group: [id number], ID# [id number], Process claim through [employer], for questions: . THIS IS NOT INSURANCE.] lisinopril 20 mg-hyd rochlorothiazide 25 mg tablet RxNorm: 824050 TAKE ONE TABLET BY MOUTH DAILY 01/29/2017 11/21/2017 Inactive lorazepam 1 mg tablet RxNorm: 159902 Tablet(s) TAKE TWO TABLETS BY MOUTH AT B EDTIME NEEDED FOR INSOMNIA AND ONE TABLET DAILY NEEDED ANXIETY 01/05/2017 04/04/2017 Inactive tramadol 50 mg tablet RxNorm: 072601 1 Tablet(s) PO Q4H as needed for pain 12/07/2016 01/13/2017 In active [SAVINGS FOR UNINSURED PATIENTS -- BIN:0 23739, PCN: ASPROD1, Group: [id number], ID# [id number], Process claim through [employer], for questions: . THIS IS NOT INSURANCE.] Kenalog 40 mg/mL madhavi pension for injection RxNorm: 8830587 Milliliter(s) Inj 12/07/2016 12/07/2016 In active nystatin 100,000 uni t/mL oral suspension RxNorm: 077203 4 Milliliter(s) PO QI D 12/07/2016 12/11/2016 In active Francia-D 12 Hour 60 mg-120 mg tablet,extended release RxNorm: 025641 1 Tablet(s) PO BID 12/07/2016 01/11/2017 Inactive lorazepam 1 mg tablet RxNorm: 925846 Tablet(s) TAKE TWO TABLETS BY MOUTH AT B EDTIME AND ONE TABLET DAILY NEEDED 12/07/2016 01/04/2017 Inactive (Response to an electronic controlled substance refill request - RxReferenceNumber: [id number]) albuterol sulfate 2. 5 mg/3 mL (0.083 %) solution for nebulization RxNorm: 372158 3 Milliliter(s) INH TID 11/29/2016 11/28/2016 Inactive prednisone 10 mg tablet RxNorm: 851400 Tablet(s) PO UD 11/29/2016 12/05/2016 Inactive 6,5,4,3,2,1 doxycycline hyclate 100 mg tablet RxNorm: 854206 1 Tablet(s) PO BID 11/29/2016 12/04/2016 Inactive albuterol sulfate 2. 5 mg/3 mL (0.083 %) solution for nebulization RxNorm: 236653 3 Milliliter(s) INH TID 11/29/2016 12/03/2016 Inactive Kenalog 40 mg/mL madhavi pension for injection RxNorm: 3104086 Milliliter(s) Inj 11/28/2016 11/28/2016 In active tramadol 50 mg tablet RxNorm: 529998 1 Tablet(s) PO Q4H as needed for pain 11/15/2016 12/06/2016 In active [SAVINGS FOR UNINSURED PATIENTS -- BIN:0 96197, PCN: ASPROD1, Group: [id number], ID# [id number], Process claim through [employer], for questions: . THIS IS NOT INSURANCE.] prednisone 20 mg tablet RxNorm: 224947 2 Tablet(s) PO daily 11/15/2016 11/19/2016 Inactive Advair Diskus 100 mc g-50 mcg/dose powder for inhalation RxNorm: 6688402 1 Puff(s) INH BID 11/15/2016 06/11/2017 Inactive ProAir HFA 90 mcg/ac tuation aerosol inhaler RxNorm: 481365 INHALE 1 TO 2 PUFFS F OUR TIMES A DAY NEEDED FOR ASTHMA 11/15/2016 04/13/2017 Inactive Zithromax Z-Linus 250 mg tablet RxNorm: 558006 1 Tablet(s) PO UD 11/15/2016 11/27/2016 Inactive Zyrtec 10 mg tablet RxNorm: 3362024 1 Tablet(s) PO daily 10/17/2016 11/15/2016 Inactive Keflex 500 mg capsule RxNorm: 411981 1 Capsule(s) PO TID 10/17/2016 10/23/2016 Inactive prednisone 10 mg tablet RxNorm: 707908 Tablet(s) PO UD 10/17/2016 11/28/2016 Inactive 6,5,4,3,2,1 tramadol 50 mg tablet RxNorm: 780934 1 Tablet(s) PO Q4H as needed for pain 09/28/2016 11/06/2016 In active [SAVINGS FOR UNINSURED PATIENTS -- BIN:0 58152, PCN: ASPROD1, Group: [id number], ID# [id number], Process claim through [employer], for questions: . THIS IS NOT INSURANCE.] ProAir HFA 90 mcg/ac tuation aerosol inhaler RxNorm: 703405 INHALE 1 TO 2 PUFFS F OUR TIMES A DAY NEEDED FOR ASTHMA 09/15/2016 11/14/2016 Inactive doxycycline hyclate 100 mg tablet RxNorm: 179478 1 Tablet(s) PO BID 09/15/2016 09/24/2016 Inactive doxycycline hyclate 100 mg tablet RxNorm: 228524 1 Tablet(s) PO BID 07/29/2016 08/07/2016 Inactive tramadol 50 mg tablet RxNorm: 291221 1 Tablet(s) PO Q4H as needed for pain 07/29/2016 09/06/2016 In active [SAVINGS FOR UNINSURED PATIENTS -- BIN:0 43737, PCN: ASPROD1, Group: [id number], ID# [id number], Process claim through [employer], for questions: . THIS IS NOT INSURANCE.] lorazepam 1 mg tablet RxNorm: 527534 Tablet(s) TAKE TWO TABLETS BY MOUTH AT B EDTIME AND ONE TABLET DAILY NEEDED 07/29/2016 10/26/2016 Inactive (Response to an electronic controlled substance refill request - RxReferenceNumber: [id number]) levothyroxine 125 mc g tablet RxNorm: 198868 1 Tablet(s) PO daily 06/29/2016 06/29/2016 Inactive levothyroxine 137 mc g tablet RxNorm: 090356 1 Tablet(s) PO daily 06/29/2016 12/25/2016 Inactive ketoconazole 2 % sha mpoo RxNorm: 495172 1 Application TOP BID 06/29/2016 07/03/2016 Inactive tramadol 50 mg tablet RxNorm: 148931 1 Tablet(s) PO Q4H as needed for pain 06/16/2016 07/25/2016 In active [SAVINGS FOR UNINSURED PATIENTS -- BIN:0 84920, PCN: ASPROD1, Group: [id number], ID# [id number], Process claim through [employer], for questions: . THIS IS NOT INSURANCE.] Bactroban 2 % topica l ointment RxNorm: 210213 APPLY TO AFFECTED ARE A(S) TWO TIMES A DAY 06/16/2016 04/16/2017 Inactive fluconazole 150 mg t ablet RxNorm: 838804 1 Tablet(s) PO daily 06/01/2016 06/05/2016 Inactive gentamicin 0.1 % top ical ointment RxNorm: 166734 1 Application TOP QID 05/12/2016 05/25/2016 In active metronidazole 500 mg tablet RxNorm: 389947 1 Tablet(s) PO TID 05/11/2016 05/24/2016 Inactive gentamicin 0.1 % top ical ointment RxNorm: 152472 1 Application TOP QID 05/11/2016 05/11/2016 In active doxycycline hyclate 100 mg tablet RxNorm: 464593 1 Tablet(s) PO BID 05/11/2016 05/24/2016 Inactive lorazepam 1 mg tablet RxNorm: 594202 Tablet(s) TAKE TWO TABLETS BY MOUTH AT B EDTIME AND ONE TABLET DAILY NEEDED 05/02/2016 07/28/2016 Inactive (Response to an electronic controlled substance refill request - RxReferenceNumber: [id number]) Diflucan 150 mg tablet RxNorm: 693297 1 Tablet(s) PO daily x5 days then 1 x we ekly x 4 weeks. 05/02/2016 04/10/2017 Inactive Diflucan 150 mg tablet RxNorm: 711541 1 Tablet(s) PO every other day 04/19/2016 04/28/2016 In active Diflucan 150 mg tablet RxNorm: 490118 1 Tablet(s) PO every other day 04/19/2016 04/18/2016 In active Diflucan 150 mg tablet RxNorm: 977383 1 Tablet(s) PO daily 04/05/2016 04/11/2016 Inactive mupirocin 2 % topica l ointment RxNorm: 764508 1 Application TOP BID 04/05/2016 05/04/2016 Inactive tramadol 50 mg tablet RxNorm: 131643 1 Tablet(s) PO Q4H as needed for pain 04/05/2016 05/14/2016 In active [SAVINGS FOR UNINSURED PATIENTS -- BIN:0 75098, PCN: ASPROD1, Group: [id number], ID# [id number], Process claim through [employer], for questions: . THIS IS NOT INSURANCE.] prednisone 10 mg tablet RxNorm: 744862 Tablet(s) PO UD 04/01/2016 09/26/2016 Inactive 6,5,4,3,2,1 levothyroxine 137 mc g tablet RxNorm: 147195 1 Tablet(s) PO daily 03/21/2016 03/20/2016 Inactive levothyroxine 137 mc g tablet RxNorm: 263274 1 Tablet(s) PO daily 03/21/2016 06/28/2016 Inactive Advair Diskus 100 mc g-50 mcg/dose powder for inhalation RxNorm: 6250767 1 Puff(s) INH BID 01/26/2016 05/24/2016 Inactive tramadol 50 mg tablet RxNorm: 237515 1 Tablet(s) PO Q4H as needed for pain 01/26/2016 03/05/2016 In active [SAVINGS FOR UNINSURED PATIENTS -- BIN:0 63977, PCN: ASPROD1, Group: [id number], ID# [id number], Process claim through [employer], for questions: . THIS IS NOT INSURANCE.] Bactroban 2 % topica l ointment RxNorm: 836988 APPLY TO AFFECTED ARE A(S) TWO TIMES A DAY 12/22/2015 12/31/2015 Inactive Bactrim DS 800 mg-16 0 mg tablet RxNorm: 193049 TAKE ONE TABLET BY [facility] TWICE A DAY 12/22/2015 04/18/2016 In active Bactrim DS 800 mg-16 0 mg tablet RxNorm: 210073 1 Tablet(s) PO BID 12/21/2015 01/21/2019 Inactive lisinopril 20 mg-hyd rochlorothiazide 25 mg tablet RxNorm: 223942 1 Tablet(s) PO daily 12/21/2015 06/17/2016 Inactive [SAVINGS FOR UNINSURED PATIENTS -- BIN:0 97639, PCN: ASPROD1, Group: [id number], ID# [id number], Process claim through [employer], for questions: . THIS IS NOT INSURANCE.] tramadol 50 mg tablet RxNorm: 056251 1 Tablet(s) PO Q4H as needed for pain 12/03/2015 01/11/2016 In active [SAVINGS FOR UNINSURED PATIENTS -- BIN:0 99956, PCN: ASPROD1, Group: [id number], ID# [id number], Process claim through [employer], for questions: . THIS IS NOT INSURANCE.] lorazepam 1 mg tablet RxNorm: 378915 Tablet(s) TAKE TWO TABLETS BY MOUTH AT B EDTIME AND ONE TABLET DAILY NEEDED 11/26/2015 06/27/2018 Inactive (Response to an electronic controlled substance refill request - RxReferenceNumber: [id number]) Bactrim DS 800 mg-16 0 mg tablet RxNorm: 616269 1 Tablet(s) PO BID 11/25/2015 12/04/2015 Inactive levothyroxine 150 mc g tablet RxNorm: 112308 1 Tablet(s) PO daily 11/25/2015 03/20/2016 Inactive Bactroban 2 % topica l ointment RxNorm: 502125 1 Application TOP BID 10/12/2015 10/21/2015 Inactive Bactrim DS 800 mg-16 0 mg tablet RxNorm: 912027 1 Tablet(s) PO BID 09/07/2015 09/06/2015 Inactive Bactrim DS 800 mg-16 0 mg tablet RxNorm: 846251 1 Tablet(s) PO BID 09/07/2015 09/16/2015 Inactive lorazepam 1 mg tablet RxNorm: 786439 Tablet(s) TAKE TWO TABLETS BY MOUTH AT B EDTIME AND ONE TABLET DAILY NEEDED 08/28/2015 11/24/2015 Inactive (Response to an electronic controlled substance refill request - RxReferenceNumber: [id number]) levothyroxine 175 mc g tablet RxNorm: 310091 1 Tablet(s) PO daily 08/24/2015 11/24/2015 Inactive tramadol 50 mg tablet RxNorm: 935955 1 Tablet(s) PO Q4H as needed for pain 08/24/2015 09/11/2017 In active [SAVINGS FOR UNINSURED PATIENTS -- BIN:0 12131, PCN: ASPROD1, Group: [id number], ID# [id number], Process claim through [employer], for questions: . THIS IS NOT INSURANCE.] lisinopril 20 mg-hyd rochlorothiazide 25 mg tablet RxNorm: 309595 1 Tablet(s) PO daily TAKE 1 TABLET BY MOUTH DAILY 08/24/2015 06/27/2018 Inactive ProAir HFA 90 mcg/ac tuation aerosol inhaler RxNorm: 002600 1-2 Puff(s) INH PRN I NHALE ONE TO TWO PUFFS BY MOUTH FOUR TIMES A DAY NEEDED FOR ASTHMA 08/24/2015 12/01/2015 In active ProAir HFA 90 mcg/ac tuation aerosol inhaler RxNorm: 2395682 INHALE ONE TO TWO PU FFS BY MOUTH FOUR TIMES A DAY NEEDED FOR ASTHMA 08/17/2015 08/23/2015 Inactive Advair Diskus 250 mc g-50 mcg/dose powder for inhalation RxNorm: 9510777 1 Puff(s) INH BID 07/20/2015 07/19/2015 Inactive Advair Diskus 250 mc g-50 mcg/dose powder for inhalation RxNorm: 2804320 1 Puff(s) INH BID 07/20/2015 11/16/2015 Inactive tramadol 50 mg tablet RxNorm: 251851 1 Tablet(s) PO Q4H as needed for pain 07/10/2015 08/17/2015 In active [SAVINGS FOR UNINSURED PATIENTS -- BIN:0 28284, PCN: ASPROD1, Group: [id number], ID# [id number], Process claim through [employer], for questions: . THIS IS NOT INSURANCE.] Zithromax Z-Linus 250 mg tablet RxNorm: 632594 1 Tablet(s) PO UD 07/10/2015 01/18/2016 Inactive Keflex 500 mg capsule RxNorm: 413838 1 Capsule(s) PO TID 06/01/2015 06/07/2015 Inactive mupirocin 2 % topica l ointment RxNorm: 886883 1 Application TOP TID 06/01/2015 06/10/2015 Inactive lisinopril 20 mg-hyd rochlorothiazide 25 mg tablet RxNorm: 611241 TAKE 1 TABLET BY MOUT H DAILY 05/30/2015 08/23/2015 Inactive lisinopril 20 mg-hyd rochlorothiazide 25 mg tablet RxNorm: 535888 1 Tablet(s) PO daily 05/29/2015 11/24/2015 Inactive [SAVINGS FOR UNINSURED PATIENTS -- BIN:0 71442, PCN: ASPROD1, Group: [id number], ID# [id number], Process claim through [employer], for questions: . THIS IS NOT INSURANCE.] lorazepam 1 mg tablet RxNorm: 212129 Tablet(s) TAKE TWO TABLETS BY MOUTH AT B EDTIME AND ONE TABLET DAILY NEEDED 04/17/2015 07/13/2015 Inactive (Response to an electronic controlled substance refill request - RxReferenceNumber: [id number]) levothyroxine 200 mc g tablet RxNorm: 151836 1 Tablet(s) PO daily 03/12/2015 08/23/2015 Inactive [SAVINGS FOR UNINSURED PATIENTS -- BIN:0 61507, PCN: ASPROD1, Group: [id number], ID# [id number], Process claim through [employer], for questions: . THIS IS NOT INSURANCE.] lisinopril 20 mg-hyd rochlorothiazide 25 mg tablet RxNorm: 315757 1 Tablet(s) PO daily 03/11/2015 05/28/2015 Inactive [SAVINGS FOR UNINSURED PATIENTS -- BIN:0 83312, PCN: ASPROD1, Group: [id number], ID# [id number], Process claim through [employer], for questions: . THIS IS NOT INSURANCE.] levothyroxine 175 mc g tablet RxNorm: 260399 1 Tablet(s) PO daily 03/09/2015 03/11/2015 Inactive recheck blood in 3 months- THIS IS CORRE CT DOSAGE levothyroxine 175 mc g tablet RxNorm: 647613 1 Tablet(s) PO daily 03/09/2015 03/08/2015 Inactive recheck blood in 3 months levothyroxine 150 mc g tablet RxNorm: 053025 1 Tablet(s) PO daily 03/09/2015 03/08/2015 Inactive recheck blood in 3 months lorazepam 1 mg tablet RxNorm: 766984 TAKE TWO TABLETS BY MOUTH AT BEDTIME AND ONE TABLET DAILY NEEDED 12/25/2014 01/22/2015 Inactive (Response to an electronic controlled substance refill request - RxReferenceNumber: [id number]) lorazepam 1 mg tablet RxNorm: 890294 Tablet(s) TAKE TWO TABLETS BY MOUTH EVER Y NIGHT AT BEDTIME AND TAKE ONE TABLET BY MOUTH DAILY NEEDED 12/23/2014 12/25/2014 Inactive (Response to an electronic controlled [place] bstance refill request - RxReferenceNumber: [id number]) levothyroxine 150 mc g tablet RxNorm: 913219 1 Tablet(s) PO daily 12/12/2014 03/08/2015 Inactive recheck blood in 3 months Diflucan 150 mg tablet RxNorm: 634992 1 Tablet(s) PO every other day (start af ter finished with Cipro) 11/17/2014 08/23/2015 Inactive tramadol 50 mg tablet RxNorm: 800683 1 Tablet(s) PO Q4H as needed for pain 11/10/2014 12/17/2014 In active [SAVINGS FOR UNINSURED PATIENTS -- BIN:0 84434, PCN: ASPROD1, Group: [id number], ID# [id number], Process claim through [employer], for questions: . THIS IS NOT INSURANCE.] Cipro 500 mg tablet RxNorm: 525567 1 Tablet(s) PO BID 10/23/2014 10/29/2014 Inactive Flagyl 500 mg tablet RxNorm: 607113 1 Tablet(s) PO TID 10/23/2014 10/29/2014 Inactive Cipro 500 mg tablet RxNorm: 312587 1 Tablet(s) PO BID 10/23/2014 10/22/2014 Inactive Flagyl 500 mg tablet RxNorm: 029803 1 Tablet(s) PO TID 10/23/2014 10/22/2014 Inactive Diflucan 150 mg tablet RxNorm: 047745 1 Tablet(s) PO every other day (start af ter finished with Cipro) 10/23/2014 11/16/2014 Inactive lorazepam 1 mg tablet RxNorm: 670491 TAKE TWO TABLETS BY MOUTH EVERY NIGHT AT BEDTIME AND TAKE ONE TABLET BY MOUTH DAILY NEEDED 10/21/2014 10/21/2014 Inactive (Response to an electronic controlled north bstance refill request - RxReferenceNumber: [id number]) lorazepam 1 mg tablet RxNorm: 199951 TAKE TWO TABLETS BY MOUTH EVERY NIGHT AT BEDTIME AND TAKE ONE TABLET BY MOUTH DAILY NEEDED 10/21/2014 11/18/2014 Inactive (Response to an electronic controlled north bstance refill request - RxReferenceNumber: [id number]) lorazepam 1 mg tablet RxNorm: 203585 Tablet(s) TAKE TWO TABLETS BY MOUTH AT B EDTIME, ALSO TAKE ONE TABLET BY MOUTH DAILY NEEDED 10/13/2014 10/21/2014 Inactive (Res ponse to an electronic controlled substance refill request - RxReferenceNumber: [id number]) ProAir HFA 90 mcg/ac tuation aerosol inhaler RxNorm: 4480875 1-2 inhale INH QID a s needed ASTHMA 10/13/2014 12/26/2014 Inactive ProAir HFA 90 mcg/ac tuation aerosol inhaler RxNorm: 4437160 1-2 inhale INH QID a s needed ASTHMA 09/18/2014 10/12/2014 Inactive meloxicam 7.5 mg tablet RxNorm: 992921 1 Tablet(s) PO daily 09/18/2014 03/10/2015 Inactive [SAVINGS FOR UNINSURED PATIENTS -- BIN:[id number], PCN: [id number], Group: [id number], ID# [id number], Process claim through [employer], for questions: . THIS IS NOT INSURANCE.] sulfamethoxazole 800 mg-trimethoprim 160 mg tablet RxNorm: 236968 1 Tablet(s) PO BID 09/18/2014 10/07/2014 Inactive levothyroxine 175 mc g tablet RxNorm: 695795 1 Tablet(s) PO daily 09/17/2014 12/11/2014 Inactive levothyroxine 175 mc g tablet RxNorm: 383425 1 Tablet(s) PO daily 09/17/2014 09/16/2014 Inactive lorazepam 1 mg tablet RxNorm: 756085 Tablet(s) TAKE TWO TABLETS BY MOUTH AT B EDTIME, ALSO TAKE ONE TABLET BY MOUTH DAILY NEEDED 09/12/2014 10/11/2014 Inactive (Res ponse to an electronic controlled substance refill request - RxReferenceNumber: [id number]) lorazepam 1 mg tablet RxNorm: 103020 TAKE TWO TABLETS BY MOUTH AT BEDTIME, AL SO TAKE ONE TABLET BY MOUTH DAILY NEEDED 09/08/2014 09/11/2014 Inactive (Res ponse to an electronic controlled substance refill request - RxReferenceNumber: [id number]) meloxicam 7.5 mg tablet RxNorm: 970158 1 Tablet(s) PO daily 09/01/2014 09/17/2014 Inactive [SAVINGS FOR UNINSURED PATIENTS -- BIN:0 95659, PCN: ASPROD1, Group: AME08, ID# [id number], Process claim through [employer], for questions: . THIS IS NOT INSURANCE.] lisinopril 20 mg-hyd rochlorothiazide 25 mg tablet RxNorm: 879512 1 Tablet(s) PO daily 09/01/2014 12/29/2014 Inactive [SAVINGS FOR UNINSURED PATIENTS -- BIN:0 94122, PCN: ASPROD1, Group: AME08, ID# [id number], Process claim through [employer], for questions: . THIS IS NOT INSURANCE.] tramadol 50 mg tablet RxNorm: 995893 1 Tablet(s) PO Q4H as needed for pain 08/20/2014 11/07/2014 In active [SAVINGS FOR UNINSURED PATIENTS -- BIN:0 59746, PCN: ASPROD1, Group: AME08, ID# [id number], Process claim through [employer], for questions: . THIS IS NOT INSURANCE.] meloxicam 7.5 mg tablet RxNorm: 350871 1 Tablet(s) PO daily 08/14/2014 08/31/2014 Inactive [SAVINGS FOR UNINSURED PATIENTS -- BIN:0 38386, PCN: ASPROD1, Group: AME08, ID# [id number], Process claim through [employer], for questions: . THIS IS NOT INSURANCE.] lorazepam 1 mg tablet RxNorm: 793665 2 Tablet(s) PO QHS and 1 tab qd PRN 08/01/2014 09/08/2014 In active [SAVINGS FOR UNINSURED PATIENTS -- BIN:0 10141, PCN: ASPROD1, Group: AME08, ID# [id number], Process claim through [employer], for questions: . THIS IS NOT INSURANCE.] levothyroxine 200 mc g tablet RxNorm: 343479 1 Tablet(s) PO daily 07/31/2014 09/16/2014 Inactive [SAVINGS FOR UNINSURED PATIENTS -- BIN:0 26396, PCN: ASPROD1, Group: AME08, ID# [id number], Process claim through [employer], for questions: . THIS IS NOT INSURANCE.] lorazepam 1 mg tablet RxNorm: 256493 2 Tablet(s) PO QHS and 1 tab qd PRN No Start Date 07/31/2014 Inactive Phenergan VC-Codeine oral RxNorm: 043873 oral No S tart Date 11/26/2017 Inactive meloxicam 7.5 mg tablet RxNorm: 853076 1 Tablet(s) PO daily No Start Date 08/13/2014 Inactive lisinopril 20 mg-hyd rochlorothiazide 25 mg tablet RxNorm: 418414 1 Tablet(s) PO daily No Start Date 08/31/2014 Inactive levothyroxine 200 mc g tablet RxNorm: 787614 1 Tablet(s) PO daily No Start Date 07/30/2014 Inactive Diflucan 150 mg tablet RxNorm: 765235 1 Tablet(s) PO every other day No Start Date 10/22/2014 Inactive Zithromax Z-Linus 250 mg tablet RxNorm: 758020 1 Tablet(s) PO UD No Start Date 07/09/2015 Inactive tramadol 50 mg tablet RxNorm: 071503 1 Tablet(s) PO Q6 as needed No Start Date 08/19/2014 Inactive Medication Administered Medication Codes Instruc tions Start Date Status Kenalog 40 mg/mL suspension for injection RxNorm: 6101466 1Milliliter 06/14/2017 N o longer Active Kenalog 40 mg/mL suspension for injection RxNorm: 6595105 1Milliliter 03/27/2017 N o longer Active Kenalog 40 mg/mL suspension for injection RxNorm: 3301259 Milliliter 12/07/2016 No longer Active Kenalog 40 mg/mL suspension for injection RxNorm: 1476952 Milliliter 11/28/2016 No longer Active Immunizations Vaccine [...] (3rd IS) 1.49 uIU/mL 01/21/2019 Free T4 Cio872 FREE T4 1.15 ng/dL 01/21/2019 Lipid Ord30 CHOL 231 mg/dL 10/24/2018 Lipid Ord30 HDL 56.0 mg/dl 10/24/2018 Lipid Ord30 TRIG 71 mg/dL 10/24/2018 Lipid Ord30 LDL 161 mg/dL 10/24/2018 Lipid Ord30 C/HDL 4.1 Ratio 10/24/2018 Comp Metabolic Tey153 NA 141 mEq/L 10/24/2018 Comp Metabolic Pec082 K 3.7 mEq/L 10/24/2018 Comp Metabolic Mel622 CL 103 mEq/L 10/24/2018 Comp Metabolic Dna176 CO2 30.0 mEq/L 10/24/2018 Comp Metabolic Zjn690 AN ION GAP 12 10/24/2018 Comp Metabolic Pjn852 GL UCOSE 98 mg/dL 10/24/2018 Comp Metabolic Vjf120 Cr eat 0.8 mg/dL 10/24/2018 Comp Metabolic Oda595 eG FR 71 ml/min/1.73m2 10/24 Comp Metabolic Cco128 BUN 12 mg/dL 10/24/2018 Comp Metabolic Ilj133 B/ C Ratio 14.5 Ratio 10/24/2018 Comp Metabolic Afm229 CA LCIUM 9.2 mg/dL 10/24/2018 Comp Metabolic Ocd132 AL K PHOS 76 U/L 10/24/2018 Comp Metabolic Gwv027 T(SGOT) 12 U/L 10/24/2018 Comp Metabolic Jnq617 AL T(SGPT) 9 U/L 10/24/2018 Comp Metabolic Vcn453 BI LI T 0.5 mg/dL 10/24/2018 Comp Metabolic Ovn143 AL BUMIN 4.3 g/dL 10/24/2018 Comp Metabolic Lzz212 TP RO 6.5 g/dL 10/24/2018 Comp Metabolic Hky405 GL OB 2.2 g/dL 10/24/2018 Comp Metabolic Vku496 A/ G Ratio 2.0 Ratio 10/24/2018 Comp Metabolic Hsr903 Os mo 281 mOsmo 10/24/2018 Free T4 Aaz366 FREE T4 0.76 ng/dL 10/24/2018 Cbc With [...] 30.5 pg 10/24/2018 Cbc With Differential Ord2 Haines% 8.4 % 10/24/2018 Cbc With Differential Ord2 [...] 1.71 K/ul 10/24/2018 Cbc With Differential Ord2 Haines ABS# 0.4 K/ul 10/24/2018 Cbc With Differential [...] 30.0 pg 04/04/2018 Cbc With Differential Ord2 Haines% 10.9 % 04/04/2018 Cbc With Differential Ord2 [...] 1.42 K/ul 04/04/2018 Cbc With Differential Ord2 Haines ABS# 0.6 K/ul 04/04/2018 Cbc With Differential Ord2 Eos ABS# 0.1 K/ul 04/04/2018 Cbc With Differential Ord2 Baso ABS# 0.0 K/ul 04/04/2018 Free T4 Xms878 FREE T4 1.25 ng/dL 04/04/2018 Tsh Ord6 [...] 30.2 pg 11/28/2017 Cbc With Differential Ord2 Haines% 10.1 % 11/28/2017 Cbc With Differential Ord2 [...] 1.33 K/ul 11/28/2017 Cbc With Differential Ord2 Haines ABS# 0.5 K/ul 11/28/2017 Cbc With Differential Ord2 Eos ABS# 0.1 K/ul 11/28/2017 Cbc With Differential Ord2 Baso ABS# 0.0 K/ul 11/28/2017 Free T4 Knl476 FREE T4 1.43 ng/dL 11/28/2017 Lipid Ord30 CHOL 186 mg/dL 11/28/2017 Lipid Ord30 HDL 54.0 mg/dl 11/28/2017 Lipid Ord30 TRIG 59 mg/dL 11/28/2017 Lipid Ord30 LDL 120 mg/dL 11/28/2017 Lipid Ord30 C/HDL 3.4 Ratio 11/28/2017 Comp Metabolic Cjg084 NA 141 mEq/L 11/28/2017 Comp Metabolic Xro020 K 4.0 mEq/L 11/28/2017 Comp Metabolic Qjh492 CL 105 mEq/L 11/28/2017 Comp Metabolic Wkz884 CO2 29.0 mEq/L 11/28/2017 Comp Metabolic Wqk153 AN ION GAP 11 11/28/2017 Comp Metabolic Vym054 GL UCOSE 91 mg/dL 11/28/2017 Comp Metabolic Bbm830 Cr eat 0.8 mg/dL 11/28/2017 Comp Metabolic Haq340 eG FR 74 ml/min/1.73m2 11/28 Comp Metabolic Sgz535 BUN 15 mg/dL 11/28/2017 Comp Metabolic Tac632 B/ C Ratio 18.8 Ratio 11/28/2017 Comp Metabolic Gbp137 CA LCIUM 8.6 mg/dL 11/28/2017 Comp Metabolic Ljt381 AL K PHOS 76 U/L 11/28/2017 Comp Metabolic Vxx397 T(SGOT) 10 U/L 11/28/2017 Comp Metabolic Esc419 AL T(SGPT) 8 U/L 11/28/2017 Comp Metabolic Ens132 BI LI T 0.5 mg/dL 11/28/2017 Comp Metabolic Tig669 AL BUMIN 4.0 g/dL 11/28/2017 Comp Metabolic Jty164 TP RO 6.1 g/dL 11/28/2017 Comp Metabolic Eut222 GL OB 2.1 g/dL 11/28/2017 Comp Metabolic Rqy117 A/ G Ratio 1.9 Ratio 11/28/2017 Comp Metabolic Laq032 Os mo 282 mOsmo 11/28/2017 Tsh Ord6 TSH (3rd IS) 3.31 uIU/mL 11/28/2017 Tsh Ord6 hTSH II 1.45 uIU/mL 03/27/2017 Free T4 Znz680 FREE T4 1.23 ng/dL 03/27/2017 Comp Metabolic Kok080 NA 140 mEq/L 09/28/2016 Comp Metabolic Njn405 K 3.9 mEq/L 09/28/2016 Comp Metabolic Wcy184 CL 104 mEq/L 09/28/2016 Comp Metabolic Xzw358 CO2 28.0 mEq/L 09/28/2016 Comp Metabolic Rpd860 AN ION GAP 12 09/28/2016 Comp Metabolic Ofl676 GL UCOSE 97 mg/dL 09/28/2016 Comp Metabolic Vgd805 Cr eat 0.8 mg/dL 09/28/2016 Comp Metabolic Vid899 eG FR 79 ml/min/1.73m2 09/28 Comp Metabolic Scy273 BUN 13 mg/dL 09/28/2016 Comp Metabolic Iya662 B/ C Ratio 17.1 Ratio 09/28/2016 Comp Metabolic Lkv379 CA LCIUM 8.9 mg/dL 09/28/2016 Comp Metabolic Miz331 AL K PHOS 100 U/L 09/28/2016 Comp Metabolic Zqt281 T(SGOT) 12 U/L 09/28/2016 Comp Metabolic Ehh949 AL T(SGPT) 9 U/L 09/28/2016 Comp Metabolic Swv905 BI LI T 0.4 mg/dL 09/28/2016 Comp Metabolic Msp921 AL BUMIN 4.1 g/dL 09/28/2016 Comp Metabolic Nly308 TP RO 6.6 g/dL 09/28/2016 Comp Metabolic Rcb419 GL OB 2.5 g/dL 09/28/2016 Comp Metabolic Vjw159 A/ G Ratio 1.6 Ratio 09/28/2016 Comp Metabolic Pks542 Os mo 279 mOsmo 09/28/2016 Lipid Ord30 [...] 28.8 pg 09/28/2016 Cbc With Differential Ord2 Haines% 7.2 % 09/28/2016 Cbc With Differential Ord2 [...] 1.41 K/ul 09/28/2016 Cbc With Differential Ord2 Haines ABS# 0.5 K/ul 09/28/2016 Cbc With Differential Ord2 Eos ABS# 0.2 K/ul 09/28/2016 Cbc With Differential Ord2 Baso ABS# 0.0 K/ul 09/28/2016 Free T4 Mft331 FREE T4 1.43 ng/dL 09/28/2016 Tsh Ord6 hTSH II 0.52 uIU/mL 09/28/2016 Tsh Ord6 hTSH II 0.47 uIU/mL 06/16/2016 Comp Metabolic Ppv808 NA 139 mEq/L 06/16/2016 Comp Metabolic Lhd706 K 4.3 mEq/L 06/16/2016 Comp Metabolic Okr609 CL 105 mEq/L 06/16/2016 Comp Metabolic Qxv571 CO2 30.0 mEq/L 06/16/2016 Comp Metabolic Sne473 AN ION GAP 8 06/16/2016 Comp Metabolic Czp145 GL UCOSE 90 mg/dL 06/16/2016 Comp Metabolic Utn892 Cr eat 0.7 mg/dL 06/16/2016 Comp Metabolic Uqj974 eG FR 91 ml/min/1.73m2 06/16 Comp Metabolic Ytl547 BUN 15 mg/dL 06/16/2016 Comp Metabolic Dio651 B/ C Ratio 22.4 Ratio 06/16/2016 Comp Metabolic Vqn300 CA LCIUM 8.8 mg/dL 06/16/2016 Comp Metabolic Qfw327 AL K PHOS 79 U/L 06/16/2016 Comp Metabolic Jdy047 T(SGOT) 13 U/L 06/16/2016 Comp Metabolic Zse457 AL T(SGPT) 11 U/L 06/16/2016 Comp Metabolic Hrh028 BI LI T 0.5 mg/dL 06/16/2016 Comp Metabolic Fwf446 AL BUMIN 3.9 g/dL 06/16/2016 Comp Metabolic Oor565 TP RO 6.1 g/dL 06/16/2016 Comp Metabolic Tfw765 GL OB 2.2 g/dL 06/16/2016 Comp Metabolic Vjv180 A/ G Ratio 1.8 Ratio 06/16/2016 Comp Metabolic Ona132 Os mo 278 mOsmo 06/16/2016 Lipid Ord30 [...] 28.9 pg 06/16/2016 Cbc With Differential Ord2 Haines% 8.1 % 06/16/2016 Cbc With Differential Ord2 [...] 1.70 K/ul 06/16/2016 Cbc With Differential Ord2 Haines ABS# 0.4 K/ul 06/16/2016 Cbc With Differential Ord2 Eos ABS# 0.2 K/ul 06/16/2016 Cbc With Differential Ord2 Baso ABS# 0.0 K/ul 06/16/2016 Free T4 Hsz184 FREE T4 1.42 ng/dL 06/16/2016 Free T4 Ian984 FREE T4 1.34 ng/dL 03/04/2016 Tsh Ord6 hTSH II 0.56 uIU/mL 03/04/2016 Tsh Ord6 hTSH II 0.98 uIU/mL 01/27/2016 Free T4 Tir419 FREE T4 1.19 ng/dL 01/27/2016 Free T4 Xnr786 FREE T4 1.69 ng/dL 11/23/2015 Tsh Ord6 hTSH II 0.08 uIU/mL 11/23/2015 Lipid Ord30 CHOL 185 mg/dL 08/21/2015 Lipid Ord30 HDL 50.0 mg/dl 08/21/2015 Lipid Ord30 TRIG 88 mg/dL 08/21/2015 Lipid Ord30 LDL 117 mg/dL 08/21/2015 Lipid Ord30 C/HDL 3.7 Ratio 08/21/2015 Comp Metabolic Lus981 NA 139 mEq/L 08/21/2015 Comp Metabolic Xjp923 K 4.3 mEq/L 08/21/2015 Comp Metabolic Tkf539 CL 102 mEq/L 08/21/2015 Comp Metabolic Jku331 CO2 27.0 mEq/L 08/21/2015 Comp Metabolic Wzz548 AN ION GAP 14 08/21/2015 Comp Metabolic Bpf374 GL UCOSE 89 mg/dL 08/21/2015 Comp Metabolic Naq587 Cr eat 0.7 mg/dL 08/21/2015 Comp Metabolic Bwd331 eG FR 85 ml/min/1.73m2 08/21 Comp Metabolic Idc770 BUN 14 mg/dL 08/21/2015 Comp Metabolic Eog207 B/ C Ratio 19.7 Ratio 08/21/2015 Comp Metabolic Jgh376 CA LCIUM 9.5 mg/dL 08/21/2015 Comp Metabolic Zfw378 AL K PHOS 123 U/L 08/21/2015 Comp Metabolic Odm576 T(SGOT) 13 U/L 08/21/2015 Comp Metabolic Vwq885 AL T(SGPT) 10 U/L 08/21/2015 Comp Metabolic Xrk727 BI LI T 0.4 mg/dL 08/21/2015 Comp Metabolic Qps900 AL BUMIN 4.1 g/dL 08/21/2015 Comp Metabolic Qug087 TP RO 6.8 g/dL 08/21/2015 Comp Metabolic Zbq449 GL OB 2.7 g/dL 08/21/2015 Comp Metabolic Jdj769 A/ G Ratio 1.5 Ratio 08/21/2015 Comp Metabolic Dsi799 Os mo 277 mOsmo 08/21/2015 Free T4 Mrz094 FREE T4 1.78 ng/dL 08/21/2015 Tsh Ord6 [...] Ord2 RDW 13.9 % 08/21/2015 Quick Strep Dgg2757 Quic k Strep Negative 07/08/2015 Tsh Ord6 hTSH II 0.04 uIU/mL 05/20/2015 Free T4 Tuj859 FREE T4 1.50 ng/dL 05/20/2015 Review of [...] Procedure Codes Date DESTRUCT PREMALG LESION CPT-4: 72718 01/19/2018 URINALYSIS NONAUTO W /O SCOPE CPT-4: 82919 09/12/2017 TRIAMCINOLONE ACET I [place] NOS CPT-4: J3301 06/14/2017 THER/PROPH/DIAG INJ SC/IM CPT-4: 87472 06/14/2017 PRESCRIP TRANSMIT A ERX SY CPT-4: G8553 06/14/2017 TRIAMCINOLONE ACET I [place] NOS CPT-4: J3301 03/27/2017 THER/PROPH/DIAG INJ SC/IM CPT-4: 38255 12/07/2016 TRIAMCINOLONE ACET I [place] NOS CPT-4: J3301 12/07/2016 THER/PROPH/DIAG INJ SC/IM CPT-4: 69678 11/28/2016 TRIAMCINOLONE ACET I [place] NOS CPT-4: J3301 11/28/2016 Vital Signs Date Vital 01/22/2019 Blood Pressure 1: 132/66 Code: 8480-6 BMI: 37.1 Code: 51618-2 Heart Rate 1: 73 bpm Height: 5'6" SpO2: 96% Weight: 230 lbs 11/21/2018 Blood Pressure 1: 120/64 Code: 8480-6 Heart Rate 1: 64 bpm 10/30/2018 Blood Pressure 1: 144/70 Code: 8480-6 BMI: 37.0 Code: 13963-1 Heart Rate 1: 76 bpm Height: 5'6" SpO2: 96% Weight: 229 lbs 06/28/2018 Blood Pressure 1: 110/66 Code: 8480-6 BMI: 37.1 Code: 83616-3 Heart Rate 1: 73 bpm Height: 5'6" SpO2: 98% Weight: 230 lbs 04/04/2018 Blood Pressure 1: 128/76 Code: 8480-6 BMI: 37.9 Code: 25520-9 Heart Rate 1: 86 bpm Height: 5'6" SpO2: 98% Weight: 235 lbs 01/19/2018 Blood Pressure 1: 122/68 Code: 8480-6 Heart Rate 1: 78 bpm Height: 5'6" SpO2: 97% Weight: 01/05/2018 Blood Pressure 1: 138/78 Code: 8480-6 BMI: 38.4 Code: 05864-0 Heart Rate 1: 73 bpm Height: 5'6" SpO2: 95% Weight: 238 lbs 11/29/2017 Blood Pressure 1: 138/80 Code: 8480-6 BMI: 38.7 Code: 21913-9 Heart Rate 1: 71 bpm Height: 5'6" SpO2: 97% Weight: 240 lbs 10/25/2017 Blood Pressure 1: 136/72 Code: 8480-6 BMI: 38.7 Code: 49193-2 Heart Rate 1: 92 bpm Height: 5'6" SpO2: 98% Weight: 240 lbs 09/12/2017 Blood Pressure 1: 132/68 Code: 8480-6 BMI: 39.7 Code: 92995-6 Heart Rate 1: 76 bpm Height: 5'6" SpO2: 98% Weight: 246 lbs 06/14/2017 Blood Pressure 1: 130/80 Code: 8480-6 BMI: 39.4 Code: 53598-5 Heart Rate 1: 73 bpm Height: 5'6" SpO2: 95% Temperature: 36.9 (C ) / 98.5 (F) Weight: 244 lbs 05/10/2017 Blood Pressure 1: 128/68 Code: 8480-6 BMI: 38.7 Code: 70731-6 Heart Rate 1: 69 bpm Height: 5'6" SpO2: 97% Weight: 240 lbs 04/19/2017 Blood Pressure 1: 138/74 Code: 8480-6 BMI: 38.7 Code: 52663-8 Heart Rate 1: 73 bpm Height: 5'6" SpO2: 96% Weight: 240 lbs 03/27/2017 Blood Pressure 1: 142/84 Code: 8480-6 BMI: 38.7 Code: 40719-5 Heart Rate 1: 69 bpm Height: 5'6" SpO2: 97% Weight: 240 lbs 01/26/2017 Blood Pressure 1: 136/68 Code: 8480-6 Heart Rate 1: 64 bpm Height: 5'6" SpO2: 96% Weight: 12/07/2016 Blood Pressure 1: 130/72 Code: 8480-6 BMI: 39.7 Code: 70156-5 Heart Rate 1: 73 bpm Height: 5'6" SpO2: 93% Temperature: 36.8 (C ) / 98.3 (F) Weight: 246 lbs 11/28/2016 Blood Pressure 1: 138/60 Code: 8480-6 BMI: 39.7 Code: 14655-6 Heart Rate 1: 81 bpm Height: 5'6" SpO2: 97% Weight: 246 lbs 11/15/2016 Blood Pressure 1: 134/78 Code: 8480-6 BMI: 39.7 Code: 45285-1 Heart Rate 1: 75 bpm Height: 5'6" SpO2: 93% Temperature: 36.8 (C ) / 98.2 (F) Weight: 246 lbs 10/17/2016 Blood Pressure 1: 120/64 Code: 8480-6 BMI: 38.4 Code: 37224-9 Heart Rate 1: 69 bpm Height: 5'6" SpO2: 98% Temperature: 37.2 (C ) / 98.9 (F) Weight: 238 lbs 09/28/2016 Blood Pressure 1: 158/76 Code: 8480-6 BMI: 39.4 Code: 05693-7 Heart Rate 1: 71 bpm Height: 5'6" SpO2: 97% Weight: 244 lbs 06/29/2016 Blood Pressure 1: 124/60 Code: 8480-6 BMI: 38.7 Code: 10537-5 Heart Rate 1: 71 bpm Height: 5'6" SpO2: 98% Weight: 240 lbs 06/01/2016 Blood Pressure 1: 120/62 Code: 8480-6 BMI: 38.6 Code: 44115-4 Heart Rate 1: 76 bpm Height: 5'6" SpO2: 98% Weight: 239 lbs 05/11/2016 Blood Pressure 1: 140/80 Code: 8480-6 BMI: 38.1 Code: 33160-0 Heart Rate 1: 88 bpm Height: 5'6" SpO2: 97% Weight: 236 lbs 04/05/2016 Blood Pressure 1: 142/80 Code: 8480-6 BMI: 38.4 Code: 22085-6 Heart Rate 1: 96 bpm Height: 5'6" SpO2: 98% Weight: 238 lbs 04/01/2016 Blood Pressure 1: 136/88 Code: 8480-6 BMI: 39.2 Code: 74270-3 Heart Rate 1: 86 bpm Height: 5'6" SpO2: 96% Weight: 243 lbs 01/26/2016 Blood Pressure 1: 124/76 Code: 8480-6 BMI: 39.2 Code: 99400-4 Heart Rate 1: 76 bpm Height: 5'6" SpO2: 97% Weight: 243 lbs 12/21/2015 Blood Pressure 1: 120/64 Code: 8480-6 BMI: 37.0 Code: 56359-7 Heart Rate 1: 98 bpm Height: 5'6" SpO2: 97% Weight: 229 lbs 10/12/2015 Blood Pressure 1: 150/64 Code: 8480-6 BMI: 37.4 Code: 43602-7 Heart Rate 1: 70 bpm Height: 5'6" SpO2: 94% Weight: 232 lbs 08/24/2015 Blood Pressure 1: 128/74 Code: 8480-6 BMI: 36.8 Code: 98954-3 Heart Rate 1: 88 bpm Height: 5'6" SpO2: 94% Temperature: 36.8 (C ) / 98.3 (F) Weight: 228 lbs 06/01/2015 Blood Pressure 1: 134/68 Code: 8480-6 BMI: 36.0 Code: 28198-6 Heart Rate 1: 70 bpm Height: 5'6" SpO2: 98% Weight: 223 lbs 05/21/2015 Blood Pressure 1: 126/72 Code: 8480-6 BMI: 35.2 Code: 48270-1 Heart Rate 1: 63 bpm Height: 5'6" SpO2: 95% Weight: 218 lbs 5 oz 03/26/2015 Blood Pressure 1: 140/62 Code: 8480-6 BMI: 35.3 Code: 62704-2 Heart Rate 1: 68 bpm Height: 5'6" Weight: 219 lbs 03/11/2015 Blood Pressure 1: 130/80 Code: 8480-6 BMI: 34.9 Code: 72158-5 Heart Rate 1: 76 bpm Height: 5'6" Temperature: 37.1 (C ) / 98.7 (F) Weight: 216 lbs 12/11/2014 Blood Pressure 1: 134/62 Code: 8480-6 BMI: 34.2 Code: 22909-4 Heart Rate 1: 72 bpm Height: 5'6" Weight: 212 lbs 09/18/2014 Blood Pressure 1: 148/80 Code: 8480-6 BMI: 34.7 Code: 08086-1 Heart Rate 1: 68 bpm Height: 5'6" Weight: 215 lbs 07/31/2014 Blood Pressure 1: 124/72 Code: 8480-6 BMI: 36.2 Code: 87632-9 Heart Rate 1: 68 bpm Height: 5'6" [...] Severity mi ld 09/28/2016 None hypothyroid 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 09/28/2016 None hypothyroid Onset and [...] Severity mi ld 06/01/2016 None hypothyroid 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 06/01/2016 None hypothyroid Onset and [...] and Resolution resolved 04/05/2016 None hypothyroid 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 [facility] Diagnosis: Mild intermittent asthma, uncomplicated[ICD10: J45.20] Diagnosis: Hypothyroidism, unspecified[ICD10: E03.9] Diagnosis: Low back pain[ICD10: M54.5] Lynn Finn MD, [facility] CPT- 4: 56338 01/22/2019 ([id number]) Edgar watkins no charge Diagnosis: Essential (primary) hypertension[ICD10: I10] Damari Finn MD, [facility] CPT-4: 23090 11/21/2018 ([id number]) 96787 EST. [facility] Diagnosis: Essential (primary) hypertension[ICD10: I10] Diagnosis: Hypothyroidism, unspecified[ICD10: E03.9] Diagnosis: Low back pain[ICD10: M54.5] Lynn Finn MD, [facility] CPT- 4: 11123 10/30/2018 ([id number]) 63555 EST. [facility] Diagnosis: Acute recurrent maxillary sinusitis[ICD10: J01.01] Diagnosis: Other mucopurulent conjunctivitis, left eye[ICD10: H10.022] Diagnosis: Other allergic rhinitis[ICD10: J30.89] Lynn Finn MD, [facility] CPT-4: 88731 06/28/2018 [id number] EST. PATIENT, LEVEL IV Diagnosis: Essential (primary) hypertension[ICD10: I10] Diagnosis: Other specified hypothyroidism[ICD10: E03.8] Diagnosis: Other specified anemias[ICD10: D64.89] Diagnosis: Localized edema[ICD10: R60.0] Mishel Finn MD, [facility] CPT-4: 86769 04/04/2018 ([id number]) 94768 EST. P ATIENT, LEVEL III Diagnosis: Mild persistent asthma, uncomplicated[ICD10: J45.30] Diagnosis: Actinic keratosis[ICD10: L57.0] Lynn Finn MD, [facility] CPT- 4: 48169 01/05/2018 ([id number]) Miscellaneou s no charge Diagnosis: Essential (primary) hypertension[ICD10: I10] Damari Finn MD, [facility] CPT-4: 07285 12/12/2017 73097 EST. PATIENT, LEVEL III Diagnosis: Essential (primary) hypertension[ICD10: I10] Diagnosis: Atrophy of thyroid (acquired)[ICD10: E03.4] Diagnosis: Low back pain[ICD10: M54.5] Mishel Finn MD, [facility] CPT-4: 72243 11/29/2017 [id number] EST. PATIENT, LEVEL III Diagnosis: Pain in left hip[ICD10: M25.552] Mishel Finn MD, [facility] CPT-4: 87026 10/25/2017 98895 EST. PATIENT, LEVEL IV Diagnosis: Localized edema[ICD10: R60.0] Mishel Finn MD, [facility] CPT-4: 49355 09/12/2017 93526 EST. PATIENT, LEVEL IV Diagnosis: Mild persistent asthma with (acute) exacerbation[ICD10: J45.31] Mishel Finn MD, [facility] CPT-4: 10374 06/14/2017 30237 EST. PATIENT, LEVEL III Diagnosis: Localized edema[ICD10: R60.0] Diagnosis: Mild persistent asthma, uncomplicated[ICD10: J45.30] Mishel Finn MD, [facility] CPT-4: 75944 05/10/2017 94615 EST. PATIENT, LEVEL III Diagnosis: Mild persistent asthma with (acute) exacerbation[ICD10: J45.31] Mishel Finn MD, [facility] CPT-4: 41094 04/19/2017 ([id number]) 06822 EST. P ATIENT, LEVEL IV Diagnosis: Contusion of left wrist, initial encounter[ICD10: S60.212A] Diagnosis: Hypothyroidism, unspecified[ICD10: E03.9] Diagnosis: Mild persistent asthma with (acute) exacerbation[ICD10: J45.31] Diagnosis: Low back pain[ICD10: M54.5] Lynn Finn MD, [facility] CPT- 4: 03625 03/27/2017 ([id number]) 61065 EST. [facility]: Essential (primary) hypertension[ICD10: I10] Diagnosis: Atrophy of thyroid (acquired)[ICD10: E03.4] Diagnosis: Low back pain[ICD10: M54.5] Damari Finn MD, [facility] CPT-4: 02136 01/26/2017 76632 EST. PATIENT, LEVEL III Diagnosis: Other allergic rhinitis[ICD10: J30.89] Diagnosis: Mild persistent asthma with (acute) exacerbation[ICD10: J45.31] Mishel Finn MD, [facility] CPT-4: 29353 12/07/2016 00305 EST. PATIENT, LEVEL III Diagnosis: Mild persistent asthma with (acute) exacerbation[ICD10: J45.31] Mishel Finn MD, [facility] CPT-4: 67438 11/28/2016 13832 EST. PATIENT, LEVEL III Diagnosis: Mild persistent asthma with (acute) exacerbation[ICD10: J45.31] Diagnosis: Acute bronchitis due to other specified organisms[ICD10: J20.8] Mishel Finn MD, [facility] CPT-4: 80537 11/15/2016 33159 EST. PATIENT, LEVEL IV Diagnosis: Other acute sinusitis[ICD10: J01.80] Diagnosis: Other allergic rhinitis[ICD10: J30.89] Diagnosis: Mild persistent asthma with (acute) exacerbation[ICD10: J45.31] Mishel Finn MD, [facility] CPT-4: 62500 10/17/2016 ([id number]) 75305 EST. P ATIENT, LEVEL IV Diagnosis: Essential (primary) hypertension[ICD10: I10] Diagnosis: Low back pain[ICD10: M54.5] Damari Finn MD, [facility] CPT-4: 86400 09/28/2016 26782 EST. PATIENT, LEVEL III Diagnosis: Tinea barbae and tinea capitis[ICD10: B35.0] Diagnosis: Other specified hypothyroidism[ICD10: E03.8] Mishel Finn MD, [facility] CPT-4: 62933 06/29/2016 ([id number]) 66258 EST. P ATIENT, LEVEL IV Diagnosis: Essential (primary) hypertension[ICD10: I10] Diagnosis: Atrophy of thyroid (acquired)[ICD10: E03.4] Diagnosis: Rash and other nonspecific skin eruption[ICD10: R21] Damari Finn MD, [facility] CPT-4: 99569 06/01/2016 ([id number]) 24833 EST. P ATIENT, LEVEL III Diagnosis: Cellulitis of groin[ICD10: L03.314] Damari Finn MD, [facility] CPT- 4: 01553 05/11/2016 ([id number]) 42174 EST. P ATIENT, LEVEL IV Diagnosis: Hypothyroidism, unspecified[ICD10: E03.9] Diagnosis: Candidiasis of vulva and vagina[ICD10: B37.3] Diagnosis: Essential (primary) hypertension[ICD10: I10] Diagnosis: Low back pain[ICD10: M54.5] Lynn Finn MD, [facility] CPT- 4: 34628 04/05/2016 50565 EST. PATIENT, LEVEL III Diagnosis: Other acute sinusitis[ICD10: J01.80] Diagnosis: Rash and other nonspecific skin eruption[ICD10: R21] Mishel Finn MD, [facility] CPT-4: 90647 04/01/2016 ([id number]) 03818 EST. P ATIENT, LEVEL IV Diagnosis: Essential (primary) hypertension[ICD10: I10] Diagnosis: Hypothyroidism, unspecified[ICD10: E03.9] Diagnosis: Low back pain[ICD10: M54.5] Diagnosis: Other obesity due to excess calories[ICD10: E66.09] Lynn Finn MD, [facility] CPT-4: 59815 01/26/2016 16919 EST. PATIENT, LEVEL IV Diagnosis: Essential (primary) hypertension[ICD10: I10] Diagnosis: Cutaneous abscess of face[ICD10: L02.01] Mishel Finn MD, [facility] CPT-4: 61948 12/21/2015 ([id number]) 16186 EST. P ATIENT, LEVEL III Diagnosis: Cutaneous abscess of groin[ICD10: L02.214] Diagnosis: Hypothyroidism, unspecified[ICD10: E03.9] Lynn Finn MD, [facility] CPT-4: 31921 10/12/2015 ([id number]) 35549 EST. P ATIENT, LEVEL III Diagnosis: Essential (primary) hypertension[ICD10: I10] Diagnosis: Hypothyroidism, unspecified[ICD10: E03.9] Diagnosis: Allergic rhinitis, unspecified[ICD10: J30.9] Lynn Finn MD, [facility] CPT-4: 93919 08/24/2015 ([id number]) 62711 EST. P ATIENT, LEVEL III Diagnosis: Skin infection[ICD9: 686.9] Damari Finn MD, [facility] CPT-4: 71712 06/01/2015 ([id number]) 25590 EST. P ATIENT, LEVEL III Diagnosis: Hypothyroidism[ICD9: 244.9] Diagnosis: ESSENTIAL HYPERTENSION[ICD9: 401.9] Damari Finn MD, [facility] CPT- 4: 21266 05/21/2015 ([id number]) 77925 EST. P ATIENT, LEVEL III Diagnosis: Hypothyroidism[ICD9: 244.9] Diagnosis: Fingernail abnormalities[ICD9: 703.8] Lynn Finn MD, [facility] CPT-4: 74640 03/26/2015 ([id number]) 69707 EST. P ATIENT, LEVEL II Diagnosis: Hypothyroidism[ICD9: 244.9] Maritza Finn MD, [facility] CPT-4: 73958 03/11/2015 ([id number]) 98164 EST. P ATIENT, LEVEL IV Diagnosis: ESSENTIAL HYPERTENSION[ICD9: 401.9] Diagnosis: Low back pain[ICD9: 724.2] Diagnosis: Hypothyroidism[ICD9: 244.9] Damari Finn MD, [facility] CPT-4: 32112 12/11/2014 ([id number]) 71549 EST. P ATIENT, LEVEL IV Diagnosis: Hidradenitis suppurativa[ICD9: 705.83] Diagnosis: ESSENTIAL HYPERTENSION[ICD9: 401.9] Diagnosis: Low back pain[ICD9: 724.2] Diagnosis: Lumbar spinal stenosis[ICD9: 724.02] Diagnosis: HYPOTHYROIDISM[ICD9: 244.9] [facility] CPT-4: 82656 09/18/2014 Office outpatient ne w 30 minutes Diagnosis: ESSENTIAL HYPERTENSION[ICD9: 401.9] Diagnosis: Hypothyroidism[ICD9: 244.9] Diagnosis: Low back pain[ICD9: 724.2] [facility] CPT- 4: 12452 07/31/2014 Plan of Care Planned Activity Notes [...] indicated 10/30/2018 Appointment: Lynn Arenas WPtel: [phone] [phone] [place] (30 min) Complex 10/30/2018 Patient Education: Patient Medication Summary Completed 10/30/2018 Patient Education: Hypertension Completed 10/30/2018 Patient Education: Back Pain Completed 10/30/2018 Appointment: Lynn Arenas WPtel: [phone] [phone] [place] (30 min) Complex 10/26/2018 Patient Education: Patient Medication Summary Completed 10/23/2018 Appointment: Lynn Arenas WPtel: [phone] [phone] [place] (15 min) Moderate 10/19/2018 [facility]ment: [phone] [place] (15 min) Moderate 09/19/2018 Visit Plan: [...] daily. 06/28/2018 [phone] ([facility] min) Complex 06/28/2018 Patient Education: [...] to monitor. 04/04/2018 Appointment: Mishel Balderrama WPtel: [facility]5 [facility]66[facility] (15 min) Moderate 04/04/2018 Patient Education: Patient Medication Summary Completed 04/04/2018 Visit Plan: Wound Instructions - Pt was instructed to keep the wound clean, wash with antibacterial soap, use triple antibiotic ointment, call if redness, pustular drainage, or any other acute concerns. 01/19/2018 Appointment: Lynn Arenas WPtel: [facility]5 [phone] (30 min) Complex 01/19/2018 Patient Education: [...] acute concerns. 01/05/2018 Appointment: Lynn Arenas WPtel: [facility]5 [phone] (30 min) Complex 01/05/2018 Patient [...] Mishel Balderrama WPtel: [phone] [facility] [place] (30 min) Complex 11/29/2017 Patient Education: [...] Mishel Balderrama WPtel: [phone] [facility] [place] (30 min) Complex 10/25/2017 Patient Education: [...] peripheral edema. 09/12/2017 Appointment: Mishel Balderrama WPtel: [facility] [place] (30 min) Complex 09/12/2017 Patient Education: Patient Medication Summary Completed 09/12/2017 Appointment: [phone] [phone] [place] (30 min) Complex 06/27/2017 Visit [...] changes. 06/14/2017 Appointment: [phone] [facility] [place] (15 min) Moderate 06/14/2017 Patient [...] changes 05/10/2017 Appointment: [phone] [place] (15 min) Moderate 05/10/2017 Patient [...] Mishel Balderrama WPtel: [phone] [facility] (15 min) Moderate 04/19/2017 Patient Education: Patient [...] on previous levels of control. Low back hrsr-uxszbyi-todrgw tramadol for prn use 03/27/2017 Appointment: [phone] (30 min) Complex 03/27/2017 Patient Education: [...] improve. 01/26/2017 Appointment: [phone] (15 min) Moderate 01/26/2017 Patient Education: Patient [...] concerns. 12/07/2016 Appointment: [facility] Bal[facility]el[phone] [facility] (15 min) Moderate 12/07/2016 Patient Education: [...] acute changes. 11/28/2016 Appointment: Mishel Balderrama WPtel: [facility]9 [facility] (15 min) Moderate 11/28/2016 Patient Education: Patient Medication Summary Completed 11/28/2016 Appointment: Mishel Balderrama WPtel: [phone] [facility] (15 min) Moderate 11/24/2016 Visit Plan: [...] acute changes. 11/15/2016 Appointment: Mishel Balderrama WPtel: [phone] [facility] (30 min) Complex 11/15/2016 Patient Education: [...] acute changes. 10/17/2016 Appointment: Mishel Balderrama WPtel: [facility]5 [facility] (30 min) Complex 10/17/2016 Patient Education: [...] tylenol 09/28/2016 Appointment: [facility] Finn [facility]el: [phone] [facility] (15 min) Moderate 09/28/2016 Patient Education: Patient [...] control. 06/29/2016 Appointment: Lynn Arenas WPtel: [phone] [phone] (15 min) Moderate 06/29/2016 Patient Education: [...] for fluconazole 06/01/2016 Appointment: Damari Finn WPtel: [facility]5 [facility] (15 min) Moderate 06/01/2016 Patient Education: Patient Medication Summary Completed 06/01/2016 Patient Education: Obesity Completed 06/01/2016 Visit Plan: Cellulitis - continue w ith oral antibiotics as previously directed, return to clinic as previously directed, call for acute change in symptoms, worsening redness, warmth, discharge. 05/11/2016 Appointment: Damari Finn WPtel: [phone] [facility] (15 min) Moderate 05/11/2016 Patient Education: [...] any concerns. 04/01/2016 Appointment: Lynn Arenas WPtel: [facility]8 [address] (30 min) Complex 04/01/2016 Patient Education: Patient Medication Summary Completed 04/01/2016 Patient Education: Obesity Completed 04/01/2016 Appointment: Lynn Arenas WPtel: [facility]9 [place] [phone] (30 min) Complex 03/29/2016 Visit Plan: Hypertension [...] levels of control. Low back pain-refill tramadol [id number] resolved 01/26/2016 Appointment: Lynn Arenas WPtel: [phone] (30 min) Complex 01/26/2016 Patient Education: Patient Medication Summary Completed 01/26/2016 Patient Education: Obesity Completed 01/26/2016 Care Plan: BMI Above normal followup RADHA F-MGMT EDUC & TRAIN 1 PT Pending 01/26/2016 Care Plan: Referral Order SNOMED-CT : [id number] Pending 01/07/2016 Appointment: Lynn Arenas WPtel: [phone] (15 min) Moderate 12/24/2015 Visit Plan: [...] nor improving. 06/01/2015 Appointment: Damari Finn WPtel: [facility] (15 min) Moderate 06/01/2015 Patient Education: Patient [...] refill tramadol 12/11/2014 Appointment: Damari Finn WPtel: [facility]5 [address] follow up 12/11/2014 Patient Education: Patient Medication Summary Completed 12/11/2014 Patient Education: Hypertension Completed 12/11/2014 Appointment: Damari Finn WPtel: [facility] follow up 11/27/2014 Visit Plan: Hidradenitis [...] to get her back MRI done at [facility] in [place] as that is where her specialist will be once we get her an appt with one of the local Neurosurgeons. 09/18/2014 Appointment: Damari Finn [facility]Ptel: [phone] Follow up 09/18/2014 Patient Education: Patient Medication [...] scheduled 07/31/2014 Appointment: [facility]el[phone] [facility] New Patient 07/31/2014 Patient Education: Patient [...] . Asthma Exacerbation - Asthma is a credit collections specialist jamee problem for this patient, however, [...] on previous levels of control. Low back ajrq-zzbwnkv-edyplt tramadol for prn use claritin or zyrtec [...] . Asthma Exacerbation - Asthma is a credit collections specialist jamee problem for this patient, however, [...] . Asthma Exacerbation - Asthma is a credit collections specialist jamee problem for this patient, however, [...] symptoms, worsening redness, warmth, discharge. Declined Procedure: ([id number]) FLU VAC NO PRSV 4 JUSTYNA 3 YRS+; Declined Reason: refused Physical therapy at [facility] . Hypertension - well controlled [...] levels of control. Low back pain-refill tramadol Koozt-jzwehejocg-tepwpuwj resolved . Hypertension - wel l controlled [...] to get her back MRI done at [facility] in [place] as that is where her specialist will [...]
--- OUTSIDE RECORDS SUMMARY | 2020-02-20 19:08 | XMS REPORT | CCD ---
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 Unknown Has never used illegal drugs 014 Allergies, Adverse Reactions, Alerts Substance Reaction Codes Entered Date Inactivated Date Status * NO KNOWN FOOD BEVERLY RGIES Unknown 07/31/2014 No Inactive Date Active bactrim hives, rash RxNorm: 428602 04/05/2016 No Inactive Date Active Past Medical [...] Fill Instructions lorazepam 1 mg tablet RxNorm: 635174 Tablet(s) TAKE TWO TABLETS BY MOUTH AT B EDTIME NEEDED FOR INSOMNIA AND ONE TABLET DAILY NEEDED ANXIETY 01/04/2019 03/03/2019 Active tramadol 50 mg tablet RxNorm: 504785 1 Tablet(s) PO Q4 PRN as needed for pain 12/05/2018 01/13/2019 In active Keflex 500 mg capsule RxNorm: 415164 1 Capsule(s) PO TID 12/05/2018 12/11/2018 Inactive ciprofloxacin 0.3 % eye drops RxNorm: 771327 INSTILL TWO DROPS TO THE AFFECTED EYE(S) THREE TIMES A DAY 11/23/2018 12/25/2018 Inactive levothyroxine 137 mc g tablet RxNorm: 574518 1 Tablet(s) PO daily TAKE ONE TABLET BY MOUTH DAILY ON AN EMPTY STOMACH 10/30/2018 01/22/2020 Active ProAir HFA 90 mcg/ac tuation aerosol inhaler RxNorm: 4398515 1-2 Puff(s) INH Q4 P RN INHALE 1 TO 2 PUFFS FOUR TIMES A DAY NEEDED FOR ASTHMA 10/30/2018 01/27/2019 Active tramadol 50 mg tablet RxNorm: 908520 1 Tablet(s) PO Q4 PRN as needed for pain 10/29/2018 12/04/2018 In active levothyroxine 125 mc g tablet RxNorm: 821124 1 Tablet(s) PO daily TAKE ONE TABLET BY MOUTH DAILY ON AN EMPTY STOMACH 09/06/2018 10/29/2018 Inactive lorazepam 1 mg tablet RxNorm: 426102 Tablet(s) TAKE TWO TABLETS BY MOUTH AT B EDTIME NEEDED FOR INSOMNIA AND ONE TABLET DAILY NEEDED ANXIETY 09/06/2018 11/02/2018 Inactive tramadol 50 mg tablet RxNorm: 228191 1 Tablet(s) PO Q4 PRN as needed for pain 09/06/2018 10/15/2018 In active tramadol 50 mg tablet RxNorm: 679901 1 Tablet(s) PO Q4 PRN as needed for pain 07/06/2018 08/14/2018 In active ciprofloxacin 0.3 % eye drops RxNorm: 400419 2 Drop(s) ophthalmic (eye) TID 06/28/2018 07/07/2018 In active lorazepam 1 mg tablet RxNorm: 989685 Tablet(s) TAKE TWO TABLETS BY MOUTH AT B EDTIME NEEDED FOR INSOMNIA AND ONE TABLET DAILY NEEDED ANXIETY 06/28/2018 08/26/2018 Inactive doxycycline hyclate 100 mg tablet RxNorm: 1595443 1 Tablet(s) PO BID 06/28/2018 07/04/2018 Inactive tramadol 50 mg tablet RxNorm: 728665 1 Tablet(s) PO Q4 PRN as needed for pain 06/13/2018 07/05/2018 In active lorazepam 1 mg tablet RxNorm: 635518 Tablet(s) TAKE TWO TABLETS BY MOUTH AT B EDTIME NEEDED FOR INSOMNIA AND ONE TABLET DAILY NEEDED ANXIETY 05/23/2018 06/27/2018 Inactive tramadol 50 mg tablet RxNorm: 936334 1 Tablet(s) PO Q4 PRN as needed for pain 05/23/2018 06/12/2018 In active levothyroxine 125 mc g tablet RxNorm: 066790 Tablet(s) TAKE ONE TA BLET BY MOUTH DAILY ON AN EMPTY STOMACH 05/23/2018 09/05/2018 Inactive tramadol 50 mg tablet RxNorm: 035642 1 Tablet(s) PO Q4 PRN as needed for pain 05/17/2018 05/22/2018 In active levothyroxine 125 mc g tablet RxNorm: 641697 TAKE ONE TABLET BY MO [facility] DAILY 05/15/2018 06/27/2018 In active levothyroxine 125 mc g tablet RxNorm: 728068 TAKE ONE TABLET BY [facility] DAILY 05/15/2018 06/27/2018 In active tramadol 50 mg tablet RxNorm: 967247 1 Tablet(s) PO Q4 PRN as needed for pain 04/30/2018 05/16/2018 In active Advair Diskus 100 mc g-50 mcg/dose powder for inhalation RxNorm: 8045967 1 Puff(s) INH BID 04/06/2018 No Stop Date Active Symbicort 80 mcg-4.5 mcg/actuation HFA aerosol inhaler RxNorm: 1045858 2 Puff(s) INH BID 04/06/2018 No Stop Date Active Advair Diskus 250 mc g-50 mcg/dose powder for inhalation RxNorm: 7480126 1 Puff(s) INH BID 04/05/2018 09/01/2018 Inactive Zyrtec 10 mg tablet RxNorm: 0762523 1 Tablet(s) PO daily x1 week then PRN 04/05/2018 08/02/2018 In active lisinopril 20 mg-hyd rochlorothiazide 25 mg tablet RxNorm: 893982 Tablet(s) TAKE ONE TABLET BY MOUTH DAILY 04/05/2018 10/29/2018 Inactive Zyrtec 10 mg tablet RxNorm: 9068733 1 Tablet(s) PO daily 04/04/2018 05/03/2018 Inactive tramadol 50 mg tablet RxNorm: 270984 1 Tablet(s) PO Q4 PRN as needed for pain 03/13/2018 04/21/2018 In active lorazepam 1 mg tablet RxNorm: 168244 Tablet(s) TAKE TWO TABLETS BY MOUTH AT B EDTIME NEEDED FOR INSOMNIA AND ONE TABLET DAILY NEEDED ANXIETY 03/02/2018 04/30/2018 Inactive levothyroxine 125 mc g tablet RxNorm: 828785 1 Tablet(s) PO daily 02/06/2018 05/06/2018 Inactive levothyroxine 125 mc g tablet RxNorm: 771052 TAKE ONE TABLET BY MO [facility] DAILY ON AN EMPTY STOMACH 02/06/2018 05/22/2018 Inactive tramadol 50 mg tablet RxNorm: 767463 1 Tablet(s) PO Q4 PRN as needed for pain 01/26/2018 03/06/2018 In active lorazepam 1 mg tablet RxNorm: 891501 Tablet(s) TAKE TWO TABLETS BY MOUTH AT B EDTIME NEEDED FOR INSOMNIA AND ONE TABLET DAILY NEEDED ANXIETY 01/23/2018 06/27/2018 Inactive Symbicort 80 mcg-4.5 mcg/actuation HFA aerosol inhaler RxNorm: 5109600 INH 01/05/2018 06/27/2018 In active tramadol 50 mg tablet RxNorm: 499243 1 Tablet(s) PO Q4 PRN as needed for pain 01/04/2018 01/25/2018 In active Advair Diskus 250 mc g-50 mcg/dose powder for inhalation RxNorm: 8826621 1 Puff(s) INH BID 11/29/2017 03/28/2018 Inactive hydrochlorothiazide 12.5 mg tablet RxNorm: 876642 1 Tablet(s) PO daily 11/29/2017 12/28/2017 In active tramadol 50 mg tablet RxNorm: 299306 1 Tablet(s) PO Q4 PRN as needed for pain 11/23/2017 01/01/2018 In active tramadol 50 mg tablet RxNorm: 751443 1 Tablet(s) PO Q4 PRN as needed for pain 10/06/2017 11/14/2017 In active lorazepam 1 mg tablet RxNorm: 797406 Tablet(s) TAKE TWO TABLETS BY MOUTH AT B EDTIME NEEDED FOR INSOMNIA AND ONE TABLET DAILY NEEDED ANXIETY 09/12/2017 06/27/2018 Inactive tramadol 50 mg tablet RxNorm: 966066 1 Tablet(s) PO Q4 PRN as needed for pain 09/12/2017 10/05/2017 In active tramadol 50 mg tablet RxNorm: 579619 1 Tablet(s) PO Q4 PRN as needed for pain 08/15/2017 09/11/2017 In active tramadol 50 mg tablet RxNorm: 091767 1 Tablet(s) PO Q4 PRN as needed for pain 06/29/2017 08/07/2017 In active ProAir HFA 90 mcg/ac tuation aerosol inhaler RxNorm: 8242441 INHALE 1 TO 2 PUFFS FOUR TIMES A DAY NEEDED FOR ASTHMA 06/14/2017 11/10/2017 Inactive prednisone 20 mg tablet RxNorm: 512669 1 Tablet(s) PO BID x 2 days, then 1 pill daily x 3 days, then 1/2 pill every other day x 3 doses. 06/14/2017 09/11/2017 Inactive Kenalog 40 mg/mL madhavi pension for injection RxNorm: 2579970 1 Milliliter(s) Inj 06/14/2017 06/14/2017 In active Zyrtec 10 mg tablet RxNorm: 4729607 1 Tablet(s) PO daily 06/14/2017 07/13/2017 Inactive tramadol 50 mg tablet RxNorm: 887941 1 Tablet(s) PO Q4 PRN as needed for pain 06/08/2017 06/27/2017 In active [SAVINGS FOR UNINSURED PATIENTS -- BIN:0 30552, PCN: ASPROD1, Group: [id number], ID# [id number], Process claim through MedImpact, for questions: . THIS IS NOT INSURANCE.] tramadol 50 mg tablet RxNorm: 477166 1 Tablet(s) PO Q4 PRN as needed for pain 05/16/2017 06/04/2017 In active [SAVINGS FOR UNINSURED PATIENTS -- BIN:0 43697, PCN: ASPROD1, Group: [id number], ID# [id number], Process claim through MedImpact, for questions: . THIS IS NOT INSURANCE.] lorazepam 1 mg tablet RxNorm: 006350 Tablet(s) TAKE TWO TABLETS BY MOUTH AT B EDTIME NEEDED FOR INSOMNIA AND ONE TABLET DAILY NEEDED ANXIETY 05/16/2017 08/13/2017 Inactive Lasix 20 mg tablet RxNorm: 171296 1 Tablet(s) PO daily 05/10/2017 05/09/2017 Inactive Lasix 20 mg tablet RxNorm: 369782 1 Tablet(s) PO daily 05/10/2017 05/12/2017 Inactive potassium chloride E R 10 mEq tablet,extended release RxNorm: 693078 1 Tablet(s) PO daily while on the lasix 05/10/2017 05/09/2017 Inactive potassium chloride E R 10 mEq tablet,extended release RxNorm: 380775 1 Tablet(s) PO daily while on the lasix 05/10/2017 05/12/2017 Inactive prednisone 20 mg tablet RxNorm: 325392 1 Tablet(s) PO BID x 2 days, then 1 pill daily x 3 days, then 1/2 pill every other day x 3 doses. 04/19/2017 06/13/2017 Inactive Zithromax Z-Linus 250 mg tablet RxNorm: 936657 1 Tablet(s) PO UD 04/13/2017 06/28/2017 Inactive prednisone 20 mg tablet RxNorm: 927242 1 Tablet(s) PO BID 04/13/2017 04/17/2017 Inactive levothyroxine 125 mc g tablet RxNorm: 804248 1 Tablet(s) PO daily 04/11/2017 10/07/2017 Inactive tramadol 50 mg tablet RxNorm: 199710 1 Tablet(s) PO Q4 PRN as needed for pain 03/27/2017 04/15/2017 In active [SAVINGS FOR UNINSURED PATIENTS -- BIN:0 80047, PCN: ASPROD1, Group: [id number], ID# [id number], Process claim through [email or web address], for questions: . THIS IS NOT INSURANCE.] Kenalog 40 mg/mL madhavi pension for injection RxNorm: 2725944 1 Milliliter(s) Inj 03/27/2017 03/27/2017 In active tramadol 50 mg tablet RxNorm: 302228 1 Tablet(s) PO Q4H as needed for pain 03/09/2017 03/26/2017 In active [SAVINGS FOR UNINSURED PATIENTS -- BIN:0 26658, PCN: ASPROD1, Group: [id number], ID# [id number], Process claim through Page365act, for questions: . THIS IS NOT INSURANCE.] lisinopril 20 mg-hyd rochlorothiazide 25 mg tablet RxNorm: 235459 TAKE ONE TABLET BY MOUTH DAILY 01/29/2017 11/21/2017 Inactive lorazepam 1 mg tablet RxNorm: 456096 Tablet(s) TAKE TWO TABLETS BY MOUTH AT B EDTIME NEEDED FOR INSOMNIA AND ONE TABLET DAILY NEEDED ANXIETY 01/05/2017 04/04/2017 Inactive tramadol 50 mg tablet RxNorm: 198851 1 Tablet(s) PO Q4H as needed for pain 12/07/2016 01/13/2017 In active [SAVINGS FOR UNINSURED PATIENTS -- BIN:0 39666, PCN: ASPROD1, Group: [id number], ID# [id number], Process claim through Page365act, for questions: . THIS IS NOT INSURANCE.] Kenalog 40 mg/mL madhavi pension for injection RxNorm: 3884986 Milliliter(s) Inj 12/07/2016 12/07/2016 In active nystatin 100,000 uni t/mL oral suspension RxNorm: 363115 4 Milliliter(s) PO QI D 12/07/2016 12/11/2016 In active Francia-D 12 Hour 60 mg-120 mg tablet,extended release RxNorm: 972472 1 Tablet(s) PO BID 12/07/2016 01/11/2017 Inactive lorazepam 1 mg tablet RxNorm: 483194 Tablet(s) TAKE TWO TABLETS BY MOUTH AT B EDTIME AND ONE TABLET DAILY NEEDED 12/07/2016 01/04/2017 Inactive (Response to an electronic controlled substance refill request - RxReferenceNumber: [id number]) albuterol sulfate 2. 5 mg/3 mL (0.083 %) solution for nebulization RxNorm: 399810 3 Milliliter(s) INH TID 11/29/2016 11/28/2016 Inactive prednisone 10 mg tablet RxNorm: 929003 Tablet(s) PO UD 11/29/2016 12/05/2016 Inactive 6,5,4,3,2,1 doxycycline hyclate 100 mg tablet RxNorm: 336792 1 Tablet(s) PO BID 11/29/2016 12/04/2016 Inactive albuterol sulfate 2. 5 mg/3 mL (0.083 %) solution for nebulization RxNorm: 709565 3 Milliliter(s) INH TID 11/29/2016 12/03/2016 Inactive Kenalog 40 mg/mL madhavi pension for injection RxNorm: 8819880 Milliliter(s) Inj 11/28/2016 11/28/2016 In active tramadol 50 mg tablet RxNorm: 310716 1 Tablet(s) PO Q4H as needed for pain 11/15/2016 12/06/2016 In active [SAVINGS FOR UNINSURED PATIENTS -- BIN:0 37243, PCN: ASPROD1, Group: [id number], ID# [id number], Process claim through FreeBrie, for questions: . THIS IS NOT INSURANCE.] prednisone 20 mg tablet RxNorm: 331856 2 Tablet(s) PO daily 11/15/2016 11/19/2016 Inactive Advair Diskus 100 mc g-50 mcg/dose powder for inhalation RxNorm: 0325561 1 Puff(s) INH BID 11/15/2016 06/11/2017 Inactive ProAir HFA 90 mcg/ac tuation aerosol inhaler RxNorm: 881993 INHALE 1 TO 2 PUFFS F OUR TIMES A DAY NEEDED FOR ASTHMA 11/15/2016 04/13/2017 Inactive Zithromax Z-Linus 250 mg tablet RxNorm: 226554 1 Tablet(s) PO UD 11/15/2016 11/27/2016 Inactive Zyrtec 10 mg tablet RxNorm: 4789396 1 Tablet(s) PO daily 10/17/2016 11/15/2016 Inactive Keflex 500 mg capsule RxNorm: 319499 1 Capsule(s) PO TID 10/17/2016 10/23/2016 Inactive prednisone 10 mg tablet RxNorm: 132619 Tablet(s) PO UD 10/17/2016 11/28/2016 Inactive 6,5,4,3,2,1 tramadol 50 mg tablet RxNorm: 490980 1 Tablet(s) PO Q4H as needed for pain 09/28/2016 11/06/2016 In active [SAVINGS FOR UNINSURED PATIENTS -- BIN:0 09160, PCN: ASPROD1, Group: [id number], ID# [id number], Process claim through Free[employer]rie, for questions: . THIS IS NOT INSURANCE.] ProAir HFA 90 mcg/ac tuation aerosol inhaler RxNorm: 886372 INHALE 1 TO 2 PUFFS F OUR TIMES A DAY NEEDED FOR ASTHMA 09/15/2016 11/14/2016 Inactive doxycycline hyclate 100 mg tablet RxNorm: 419503 1 Tablet(s) PO BID 09/15/2016 09/24/2016 Inactive doxycycline hyclate 100 mg tablet RxNorm: 562383 1 Tablet(s) PO BID 07/29/2016 08/07/2016 Inactive tramadol 50 mg tablet RxNorm: 345459 1 Tablet(s) PO Q4H as needed for pain 07/29/2016 09/06/2016 In active [SAVINGS FOR UNINSURED PATIENTS -- BIN:0 19618, PCN: ASPROD1, Group: [id number], ID# [id number], Process claim through Free[employer]rie, for questions: . THIS IS NOT INSURANCE.] lorazepam 1 mg tablet RxNorm: 710243 Tablet(s) TAKE TWO TABLETS BY MOUTH AT B EDTIME AND ONE TABLET DAILY NEEDED 07/29/2016 10/26/2016 Inactive (Response to an electronic controlled substance refill request - RxReferenceNumber: [id number]) levothyroxine 125 mc g tablet RxNorm: 232088 1 Tablet(s) PO daily 06/29/2016 06/29/2016 Inactive levothyroxine 137 mc g tablet RxNorm: 075471 1 Tablet(s) PO daily 06/29/2016 12/25/2016 Inactive ketoconazole 2 % sha mpoo RxNorm: 470145 1 Application TOP BID 06/29/2016 07/03/2016 Inactive tramadol 50 mg tablet RxNorm: 995349 1 Tablet(s) PO Q4H as needed for pain 06/16/2016 07/25/2016 In active [SAVINGS FOR UNINSURED PATIENTS -- BIN:0 50570, PCN: ASPROD1, Group: [id number], ID# [id number], Process claim through FreeBrie, for questions: . THIS IS NOT INSURANCE.] Bactroban 2 % topica l ointment RxNorm: 424830 APPLY TO AFFECTED ARE A(S) TWO TIMES A DAY 06/16/2016 04/16/2017 Inactive fluconazole 150 mg t ablet RxNorm: 738539 1 Tablet(s) PO daily 06/01/2016 06/05/2016 Inactive gentamicin 0.1 % top ical ointment RxNorm: 136642 1 Application TOP QID 05/12/2016 05/25/2016 In active metronidazole 500 mg tablet RxNorm: 878842 1 Tablet(s) PO TID 05/11/2016 05/24/2016 Inactive gentamicin 0.1 % top ical ointment RxNorm: 858629 1 Application TOP QID 05/11/2016 05/11/2016 In active doxycycline hyclate 100 mg tablet RxNorm: 933551 1 Tablet(s) PO BID 05/11/2016 05/24/2016 Inactive lorazepam 1 mg tablet RxNorm: 316211 Tablet(s) TAKE TWO TABLETS BY MOUTH AT B EDTIME AND ONE TABLET DAILY NEEDED 05/02/2016 07/28/2016 Inactive (Response to an electronic controlled substance refill request [id number]) Diflucan 150 mg tablet RxNorm: 524780 1 Tablet(s) PO daily x5 days then 1 x we ekly x 4 weeks. 05/02/2016 04/10/2017 Inactive Diflucan 150 mg tablet RxNorm: 306037 1 Tablet(s) PO every other day 04/19/2016 04/28/2016 In active Diflucan 150 mg tablet RxNorm: 076743 1 Tablet(s) PO every other day 04/19/2016 04/18/2016 In active Diflucan 150 mg tablet RxNorm: 843604 1 Tablet(s) PO daily 04/05/2016 04/11/2016 Inactive mupirocin 2 % topica l ointment RxNorm: 990833 1 Application TOP BID 04/05/2016 05/04/2016 Inactive tramadol 50 mg tablet RxNorm: 247464 1 Tablet(s) PO Q4H as needed for pain 04/05/2016 05/14/2016 In active [SAVINGS FOR UNINSURED PATIENTS -- BIN:0 54061, PCN: ASPROD1, Group: [id number], ID# [id number], Process claim through FreeBrie, for questions: . THIS IS NOT INSURANCE.] prednisone 10 mg tablet RxNorm: 976324 Tablet(s) PO UD 04/01/2016 09/26/2016 Inactive 6,5,4,3,2,1 levothyroxine 137 mc g tablet RxNorm: 674416 1 Tablet(s) PO daily 03/21/2016 03/20/2016 Inactive levothyroxine 137 mc g tablet RxNorm: 714702 1 Tablet(s) PO daily 03/21/2016 06/28/2016 Inactive Advair Diskus 100 mc g-50 mcg/dose powder for inhalation RxNorm: 5204824 1 Puff(s) INH BID 01/26/2016 05/24/2016 Inactive tramadol 50 mg tablet RxNorm: 725112 1 Tablet(s) PO Q4H as needed for pain 01/26/2016 03/05/2016 In active [SAVINGS FOR UNINSURED PATIENTS -- BIN:0 75183, PCN: ASPROD1, Group: [id number], ID# [id number], Process claim through FreeBrie, for questions: . THIS IS NOT INSURANCE.] Bactroban 2 % topica l ointment RxNorm: 211530 APPLY TO AFFECTED ARE A(S) TWO TIMES A DAY 12/22/2015 12/31/2015 Inactive Bactrim DS 800 mg-16 0 mg tablet RxNorm: 135551 TAKE ONE TABLET BY [facility] TWICE A DAY 12/22/2015 04/18/2016 In active Bactrim DS 800 mg-16 0 mg tablet RxNorm: 107578 1 Tablet(s) PO BID 12/21/2015 12/30/2015 Inactive lisinopril 20 mg-hyd rochlorothiazide 25 mg tablet RxNorm: 405519 1 Tablet(s) PO daily 12/21/2015 06/17/2016 Inactive [SAVINGS FOR UNINSURED PATIENTS -- BIN:0 08622, PCN: ASPROD1, Group: [id number], ID# [id number], Process claim through FreeBrie, for questions: . THIS IS NOT INSURANCE.] tramadol 50 mg tablet RxNorm: 536504 1 Tablet(s) PO Q4H as needed for pain 12/03/2015 01/11/2016 In active [SAVINGS FOR UNINSURED PATIENTS -- BIN:0 39778, PCN: ASPROD1, Group: [id number], ID# [id number], Process claim through Page365act, for questions: . THIS IS NOT INSURANCE.] lorazepam 1 mg tablet RxNorm: 008935 Tablet(s) TAKE TWO TABLETS BY MOUTH AT B EDTIME AND ONE TABLET DAILY NEEDED 11/26/2015 06/27/2018 Inactive (Response to an electronic controlled substance refill request - RxReferenceNumber: [id number]) Bactrim DS 800 mg-16 0 mg tablet RxNorm: 465415 1 Tablet(s) PO BID 11/25/2015 12/04/2015 Inactive levothyroxine 150 mc g tablet RxNorm: 267528 1 Tablet(s) PO daily 11/25/2015 03/20/2016 Inactive Bactroban 2 % topica l ointment RxNorm: 165668 1 Application TOP BID 10/12/2015 10/21/2015 Inactive Bactrim DS 800 mg-16 0 mg tablet RxNorm: 683405 1 Tablet(s) PO BID 09/07/2015 09/06/2015 Inactive Bactrim DS 800 mg-16 0 mg tablet RxNorm: 457024 1 Tablet(s) PO BID 09/07/2015 09/16/2015 Inactive lorazepam 1 mg tablet RxNorm: 197199 Tablet(s) TAKE TWO TABLETS BY MOUTH AT B EDTIME AND ONE TABLET DAILY NEEDED 08/28/2015 11/24/2015 Inactive (Response to an electronic controlled substance refill request - RxReferenceNumber: [id number]) levothyroxine 175 mc g tablet RxNorm: 680959 1 Tablet(s) PO daily 08/24/2015 11/24/2015 Inactive tramadol 50 mg tablet RxNorm: 247168 1 Tablet(s) PO Q4H as needed for pain 08/24/2015 09/11/2017 In active [SAVINGS FOR UNINSURED PATIENTS -- BIN:0 26885, PCN: ASPROD1, Group: [id number], ID# [id number], Process claim through FreeBrie, for questions: . THIS IS NOT INSURANCE.] lisinopril 20 mg-hyd rochlorothiazide 25 mg tablet RxNorm: 148974 1 Tablet(s) PO daily TAKE 1 TABLET BY MOUTH DAILY 08/24/2015 06/27/2018 Inactive ProAir HFA 90 mcg/ac tuation aerosol inhaler RxNorm: 906919 1-2 Puff(s) INH PRN I NHALE ONE TO TWO PUFFS BY MOUTH FOUR TIMES A DAY NEEDED FOR ASTHMA 08/24/2015 12/01/2015 In active ProAir HFA 90 mcg/ac tuation aerosol inhaler RxNorm: 7957775 INHALE ONE TO TWO PU FFS BY MOUTH FOUR TIMES A DAY NEEDED FOR ASTHMA 08/17/2015 08/23/2015 Inactive Advair Diskus 250 mc g-50 mcg/dose powder for inhalation RxNorm: 9657482 1 Puff(s) INH BID 07/20/2015 07/19/2015 Inactive Advair Diskus 250 mc g-50 mcg/dose powder for inhalation RxNorm: 4513513 1 Puff(s) INH BID 07/20/2015 11/16/2015 Inactive tramadol 50 mg tablet RxNorm: 736587 1 Tablet(s) PO Q4H as needed for pain 07/10/2015 08/17/2015 In active [SAVINGS FOR UNINSURED PATIENTS -- BIN:0 12949, PCN: ASPROD1, Group: [id number], ID# [id number], Process claim through MedImpact, for questions: . THIS IS NOT INSURANCE.] Zithromax Z-Linus 250 mg tablet RxNorm: 193382 1 Tablet(s) PO UD 07/10/2015 01/18/2016 Inactive Keflex 500 mg capsule RxNorm: 209960 1 Capsule(s) PO TID 06/01/2015 06/07/2015 Inactive mupirocin 2 % topica l ointment RxNorm: 796397 1 Application TOP TID 06/01/2015 06/10/2015 Inactive lisinopril 20 mg-hyd rochlorothiazide 25 mg tablet RxNorm: 720337 TAKE 1 TABLET BY MOUT H DAILY 05/30/2015 08/23/2015 Inactive lisinopril 20 mg-hyd rochlorothiazide 25 mg tablet RxNorm: 132666 1 Tablet(s) PO daily 05/29/2015 11/24/2015 Inactive [SAVINGS FOR UNINSURED PATIENTS -- BIN:0 48614, PCN: ASPROD1, Group: [id number], ID# [id number], Process claim through MedImpact, for questions: . THIS IS NOT INSURANCE.] lorazepam 1 mg tablet RxNorm: 818715 Tablet(s) TAKE TWO TABLETS BY MOUTH AT B EDTIME AND ONE TABLET DAILY NEEDED 04/17/2015 07/13/2015 Inactive (Response to an electronic controlled substance refill request - RxReferenceNumber: [id number]) levothyroxine 200 mc g tablet RxNorm: 969469 1 Tablet(s) PO daily 03/12/2015 08/23/2015 Inactive [SAVINGS FOR UNINSURED PATIENTS -- BIN:0 40197, PCN: ASPROD1, Group: [id number], ID# [id number], Process claim through MedImpact, for questions: . THIS IS NOT INSURANCE.] lisinopril 20 mg-hyd rochlorothiazide 25 mg tablet RxNorm: 100736 1 Tablet(s) PO daily 03/11/2015 05/28/2015 Inactive [SAVINGS FOR UNINSURED PATIENTS -- BIN:0 36178, PCN: ASPROD1, Group: [id number], ID# [id number], Process claim through FreeBrie, for questions: . THIS IS NOT INSURANCE.] levothyroxine 175 mc g tablet RxNorm: 639015 1 Tablet(s) PO daily 03/09/2015 03/11/2015 Inactive recheck blood in 3 months- THIS IS CORRE CT DOSAGE levothyroxine 175 mc g tablet RxNorm: 303817 1 Tablet(s) PO daily 03/09/2015 03/08/2015 Inactive recheck blood in 3 months levothyroxine 150 mc g tablet RxNorm: 319398 1 Tablet(s) PO daily 03/09/2015 03/08/2015 Inactive recheck blood in 3 months lorazepam 1 mg tablet RxNorm: 285842 TAKE TWO TABLETS BY MOUTH AT BEDTIME AND ONE TABLET DAILY NEEDED 12/25/2014 01/22/2015 Inactive (Response to an electronic controlled substance refill request - RxReferenceNumber: [id number]) lorazepam 1 mg tablet RxNorm: 599702 Tablet(s) TAKE TWO TABLETS BY MOUTH EVER Y NIGHT AT BEDTIME AND TAKE ONE TABLET BY MOUTH DAILY NEEDED 12/23/2014 12/25/2014 Inactive (Response to an electronic controlled north bstance refill request - RxReferenceNumber: [id number]) levothyroxine 150 mc g tablet RxNorm: 075343 1 Tablet(s) PO daily 12/12/2014 03/08/2015 Inactive recheck blood in 3 months Diflucan 150 mg tablet RxNorm: 068882 1 Tablet(s) PO every other day (start af ter finished with Cipro) 11/17/2014 08/23/2015 Inactive tramadol 50 mg tablet RxNorm: 891797 1 Tablet(s) PO Q4H as needed for pain 11/10/2014 12/17/2014 In active [SAVINGS FOR UNINSURED PATIENTS -- BIN:0 67604, PCN: ASPROD1, Group: [id number], ID# [id number], Process claim through [employer], for questions: . THIS IS NOT INSURANCE.] Cipro 500 mg tablet RxNorm: 722472 1 Tablet(s) PO BID 10/23/2014 10/29/2014 Inactive Flagyl 500 mg tablet RxNorm: 481308 1 Tablet(s) PO TID 10/23/2014 10/29/2014 Inactive Cipro 500 mg tablet RxNorm: 611406 1 Tablet(s) PO BID 10/23/2014 10/22/2014 Inactive Flagyl 500 mg tablet RxNorm: 692729 1 Tablet(s) PO TID 10/23/2014 10/22/2014 Inactive Diflucan 150 mg tablet RxNorm: 694130 1 Tablet(s) PO every other day (start af ter finished with Cipro) 10/23/2014 11/16/2014 Inactive lorazepam 1 mg tablet RxNorm: 889765 TAKE TWO TABLETS BY MOUTH EVERY NIGHT AT BEDTIME AND TAKE ONE TABLET BY MOUTH DAILY NEEDED 10/21/2014 10/21/2014 Inactive (Response to an electronic controlled north bstance refill request - RxReferenceNumber: [id number]) lorazepam 1 mg tablet RxNorm: 478813 TAKE TWO TABLETS BY MOUTH EVERY NIGHT AT BEDTIME AND TAKE ONE TABLET BY MOUTH DAILY NEEDED 10/21/2014 11/18/2014 Inactive (Response to an electronic controlled north bstance refill request - RxReferenceNumber: [id number]) lorazepam 1 mg tablet RxNorm: 675325 Tablet(s) TAKE TWO TABLETS BY MOUTH AT B EDTIME, ALSO TAKE ONE TABLET BY MOUTH DAILY NEEDED 10/13/2014 10/21/2014 Inactive (Res ponse to an electronic controlled substance refill request - RxReferenceNumber: [id number]) ProAir HFA 90 mcg/ac tuation aerosol inhaler RxNorm: 9571990 1-2 inhale INH QID a s needed ASTHMA 10/13/2014 12/26/2014 Inactive ProAir HFA 90 mcg/ac tuation aerosol inhaler RxNorm: 2240416 1-2 inhale INH QID a s needed ASTHMA 09/18/2014 10/12/2014 Inactive meloxicam 7.5 mg tablet RxNorm: 616177 1 Tablet(s) PO daily 09/18/2014 03/10/2015 Inactive [SAVINGS FOR UNINSURED PATIENTS -- BIN:[id number], PCN: [id number], Group: [id number], ID# [id number], Process claim through [employer], for questions: . THIS IS NOT INSURANCE.] sulfamethoxazole 800 mg-trimethoprim 160 mg tablet RxNorm: 154433 1 Tablet(s) PO BID 09/18/2014 10/07/2014 Inactive levothyroxine 175 mc g tablet RxNorm: 675863 1 Tablet(s) PO daily 09/17/2014 12/11/2014 Inactive levothyroxine 175 mc g tablet RxNorm: 690198 1 Tablet(s) PO daily 09/17/2014 09/16/2014 Inactive lorazepam 1 mg tablet RxNorm: 332414 Tablet(s) TAKE TWO TABLETS BY MOUTH AT B EDTIME, ALSO TAKE ONE TABLET BY MOUTH DAILY NEEDED 09/12/2014 10/11/2014 Inactive (Res ponse to an electronic controlled substance refill request - RxReferenceNumber: [id number]) lorazepam 1 mg tablet RxNorm: 710178 TAKE TWO TABLETS BY MOUTH AT BEDTIME, AL SO TAKE ONE TABLET BY MOUTH DAILY NEEDED 09/08/2014 09/11/2014 Inactive (Res ponse to an electronic controlled substance refill request - RxReferenceNumber: [id number]) meloxicam 7.5 mg tablet RxNorm: 264946 1 Tablet(s) PO daily 09/01/2014 09/17/2014 Inactive [SAVINGS FOR UNINSURED PATIENTS -- BIN:0 48939, PCN: ASPROD1, Group: [id number], ID# [id number], Process claim through [employer], for questions: . THIS IS NOT INSURANCE.] lisinopril 20 mg-hyd rochlorothiazide 25 mg tablet RxNorm: 902490 1 Tablet(s) PO daily 09/01/2014 12/29/2014 Inactive [SAVINGS FOR UNINSURED PATIENTS -- BIN:0 96715, PCN: ASPROD1, Group: [id number], ID# [id number], Process claim through [employer], for questions: . THIS IS NOT INSURANCE.] tramadol 50 mg tablet RxNorm: 849730 1 Tablet(s) PO Q4H as needed for pain 08/20/2014 11/07/2014 In active [SAVINGS FOR UNINSURED PATIENTS -- BIN:0 11862, PCN: ASPROD1, Group: [id number], ID# [id number], Process claim through [employer], for questions: . THIS IS NOT INSURANCE.] meloxicam 7.5 mg tablet RxNorm: 060768 1 Tablet(s) PO daily 08/14/2014 08/31/2014 Inactive [SAVINGS FOR UNINSURED PATIENTS -- BIN:0 10555, PCN: ASPROD1, Group: [id number], ID# [id number], Process claim through [employer], for questions: . THIS IS NOT INSURANCE.] lorazepam 1 mg tablet RxNorm: 548186 2 Tablet(s) PO QHS and 1 tab qd PRN 08/01/2014 09/08/2014 In active [SAVINGS FOR UNINSURED PATIENTS -- BIN:0 99688, PCN: ASPROD1, Group: [id number], ID# [id number], Process claim through [employer], for questions: . THIS IS NOT INSURANCE.] levothyroxine 200 mc g tablet RxNorm: 787456 1 Tablet(s) PO daily 07/31/2014 09/16/2014 Inactive [SAVINGS FOR UNINSURED PATIENTS -- BIN:0 59534, PCN: ASPROD1, Group: [id number], ID# [id number], Process claim through [employer], for questions: . THIS IS NOT INSURANCE.] lorazepam 1 mg tablet RxNorm: 566619 2 Tablet(s) PO QHS and 1 tab qd PRN No Start Date 07/31/2014 Inactive Phenergan VC-Codeine oral RxNorm: 654572 oral No S tart Date 11/26/2017 Inactive meloxicam 7.5 mg tablet RxNorm: 724251 1 Tablet(s) PO daily No Start Date 08/13/2014 Inactive lisinopril 20 mg-hyd rochlorothiazide 25 mg tablet RxNorm: 533517 1 Tablet(s) PO daily No Start Date 08/31/2014 Inactive levothyroxine 200 mc g tablet RxNorm: 878386 1 Tablet(s) PO daily No Start Date 07/30/2014 Inactive Diflucan 150 mg tablet RxNorm: 654129 1 Tablet(s) PO every other day No Start Date 10/22/2014 Inactive Zithromax Z-Linus 250 mg tablet RxNorm: 480643 1 Tablet(s) PO UD No Start Date 07/09/2015 Inactive tramadol 50 mg tablet RxNorm: 366251 1 Tablet(s) PO Q6 as needed No Start Date 08/19/2014 Inactive Medication Administered Medication Codes Instruc tions Start Date Status Kenalog 40 mg/mL suspension for injection RxNorm: 7838031 1Milliliter 06/14/2017 N o longer Active Kenalog 40 mg/mL suspension for injection RxNorm: 0718844 1Milliliter 03/27/2017 N o longer Active Kenalog 40 mg/mL suspension for injection RxNorm: 3787477 Milliliter 12/07/2016 No longer Active Kenalog 40 mg/mL suspension for injection RxNorm: 3126487 Milliliter 11/28/2016 No longer Active Immunizations Vaccine Codes Date Status Pneumococcal CVX: 33 09/1986 completed Tetanus, Diptheria, Pertussis CVX: 113 03/11/1987 completed Tetanus/Diptheria CVX: 113 03/11/1987 completed Influenza CVX: 141 03/11 completed Assessments Condition Codes Effectiv e Dates Essential (primary) hypertension ICD -10: I10 ICD-9: 401.9 11/21/2018 Low back pain ICD-10: M54.5 ICD-9: 724.2 10/30/2018 Hypothyroidism, unspecified ICD-10: E03.9 ICD-9: 244.9 10/30/2018 Other specified hypothyroidism ICD-1 0: E03.8 ICD-9: [...] Reason For Visit Effective Dates Notes hypertension 10/30/2018 eye erythema 06/28/2018 hypertension 04/04/2018 [...] (3rd IS) 1.49 uIU/mL 01/21/2019 Free T4 Pgb824 FREE T4 1.15 ng/dL 01/21/2019 Lipid Ord30 CHOL 231 mg/dL 10/24/2018 Lipid Ord30 HDL 56.0 mg/dl 10/24/2018 Lipid Ord30 TRIG 71 mg/dL 10/24/2018 Lipid Ord30 LDL 161 mg/dL 10/24/2018 Lipid Ord30 C/HDL 4.1 Ratio 10/24/2018 Comp Metabolic Adr568 NA 141 mEq/L 10/24/2018 Comp Metabolic Dkc081 K 3.7 mEq/L 10/24/2018 Comp Metabolic Bvj484 CL 103 mEq/L 10/24/2018 Comp Metabolic Fub727 CO2 30.0 mEq/L 10/24/2018 Comp Metabolic Fwx567 AN ION GAP 12 10/24/2018 Comp Metabolic Pfg125 GL UCOSE 98 mg/dL 10/24/2018 Comp Metabolic Oxd065 Cr eat 0.8 mg/dL 10/24/2018 Comp Metabolic Bhl787 eG FR 71 ml/min/1.73m2 10/24 Comp Metabolic Gaa404 BUN 12 mg/dL 10/24/2018 Comp Metabolic Xdu345 B/ C Ratio 14.5 Ratio 10/24/2018 Comp Metabolic Gwp661 CA LCIUM 9.2 mg/dL 10/24/2018 Comp Metabolic Xgd143 AL K PHOS 76 U/L 10/24/2018 Comp Metabolic Cpf350 T(SGOT) 12 U/L 10/24/2018 Comp Metabolic Pbp440 AL T(SGPT) 9 U/L 10/24/2018 Comp Metabolic Plm411 BI LI T 0.5 mg/dL 10/24/2018 Comp Metabolic Aid685 AL BUMIN 4.3 g/dL 10/24/2018 Comp Metabolic Dfs355 TP RO 6.5 g/dL 10/24/2018 Comp Metabolic Kuq130 GL OB 2.2 g/dL 10/24/2018 Comp Metabolic Aqz784 A/ G Ratio 2.0 Ratio 10/24/2018 Comp Metabolic Jui037 Os mo 281 mOsmo 10/24/2018 Free T4 Ooi644 FREE T4 0.76 ng/dL 10/24/2018 Cbc With [...] 30.5 pg 10/24/2018 Cbc With Differential Ord2 [place]% 8.4 % 10/24/2018 Cbc With Differential Ord2 [...] 1.71 K/ul 10/24/2018 Cbc With Differential Ord2 [place] ABS# 0.4 K/ul 10/24/2018 Cbc With Differential [...] 30.0 pg 04/04/2018 Cbc With Differential Ord2 [place]% 10.9 % 04/04/2018 Cbc With Differential Ord2 [...] 1.42 K/ul 04/04/2018 Cbc With Differential Ord2 [place] ABS# 0.6 K/ul 04/04/2018 Cbc With Differential Ord2 Eos ABS# 0.1 K/ul 04/04/2018 Cbc With Differential Ord2 Baso ABS# 0.0 K/ul 04/04/2018 Free T4 Ngd345 FREE T4 1.25 ng/dL 04/04/2018 Tsh Ord6 [...] 30.2 pg 11/28/2017 Cbc With Differential Ord2 [place]% 10.1 % 11/28/2017 Cbc With Differential Ord2 [...] 1.33 K/ul 11/28/2017 Cbc With Differential Ord2 [place] ABS# 0.5 K/ul 11/28/2017 Cbc With Differential Ord2 Eos ABS# 0.1 K/ul 11/28/2017 Cbc With Differential Ord2 Baso ABS# 0.0 K/ul 11/28/2017 Free T4 Kar171 FREE T4 1.43 ng/dL 11/28/2017 Lipid Ord30 CHOL 186 mg/dL 11/28/2017 Lipid Ord30 HDL 54.0 mg/dl 11/28/2017 Lipid Ord30 TRIG 59 mg/dL 11/28/2017 Lipid Ord30 LDL 120 mg/dL 11/28/2017 Lipid Ord30 C/HDL 3.4 Ratio 11/28/2017 Comp Metabolic Lbv695 NA 141 mEq/L 11/28/2017 Comp Metabolic Nly085 K 4.0 mEq/L 11/28/2017 Comp Metabolic Jki637 CL 105 mEq/L 11/28/2017 Comp Metabolic Bzq214 CO2 29.0 mEq/L 11/28/2017 Comp Metabolic Xfu408 AN ION GAP 11 11/28/2017 Comp Metabolic Kal119 GL UCOSE 91 mg/dL 11/28/2017 Comp Metabolic Stp284 Cr eat 0.8 mg/dL 11/28/2017 Comp Metabolic Cgw685 eG FR 74 ml/min/1.73m2 11/28 Comp Metabolic Zjw308 BUN 15 mg/dL 11/28/2017 Comp Metabolic Afl784 B/ C Ratio 18.8 Ratio 11/28/2017 Comp Metabolic Nwo803 CA LCIUM 8.6 mg/dL 11/28/2017 Comp Metabolic Jpy735 AL K PHOS 76 U/L 11/28/2017 Comp Metabolic Jxm415 T(SGOT) 10 U/L 11/28/2017 Comp Metabolic Fik340 AL T(SGPT) 8 U/L 11/28/2017 Comp Metabolic Onb847 BI LI T 0.5 mg/dL 11/28/2017 Comp Metabolic Gpw331 AL BUMIN 4.0 g/dL 11/28/2017 Comp Metabolic Wtj373 TP RO 6.1 g/dL 11/28/2017 Comp Metabolic Pjz417 GL OB 2.1 g/dL 11/28/2017 Comp Metabolic Por809 A/ G Ratio 1.9 Ratio 11/28/2017 Comp Metabolic Zno233 Os mo 282 mOsmo 11/28/2017 Tsh Ord6 TSH (3rd IS) 3.31 uIU/mL 11/28/2017 Tsh Ord6 hTSH II 1.45 uIU/mL 03/27/2017 Free T4 Ahe981 FREE T4 1.23 ng/dL 03/27/2017 Comp Metabolic Dop744 NA 140 mEq/L 09/28/2016 Comp Metabolic Gbz129 K 3.9 mEq/L 09/28/2016 Comp Metabolic Wzg469 CL 104 mEq/L 09/28/2016 Comp Metabolic Fup613 CO2 28.0 mEq/L 09/28/2016 Comp Metabolic Sjo335 AN ION GAP 12 09/28/2016 Comp Metabolic Zwz460 GL UCOSE 97 mg/dL 09/28/2016 Comp Metabolic Thc013 Cr eat 0.8 mg/dL 09/28/2016 Comp Metabolic Tch718 eG FR 79 ml/min/1.73m2 09/28 Comp Metabolic Axq985 BUN 13 mg/dL 09/28/2016 Comp Metabolic Cko701 B/ C Ratio 17.1 Ratio 09/28/2016 Comp Metabolic Woj973 CA LCIUM 8.9 mg/dL 09/28/2016 Comp Metabolic Gql747 AL K PHOS 100 U/L 09/28/2016 Comp Metabolic Nue910 T(SGOT) 12 U/L 09/28/2016 Comp Metabolic Oti767 AL T(SGPT) 9 U/L 09/28/2016 Comp Metabolic Gti420 BI LI T 0.4 mg/dL 09/28/2016 Comp Metabolic Ibc148 AL BUMIN 4.1 g/dL 09/28/2016 Comp Metabolic Thv807 TP RO 6.6 g/dL 09/28/2016 Comp Metabolic Xxs972 GL OB 2.5 g/dL 09/28/2016 Comp Metabolic Oiv429 A/ G Ratio 1.6 Ratio 09/28/2016 Comp Metabolic Msm173 Os mo 279 mOsmo 09/28/2016 Lipid Ord30 [...] 28.8 pg 09/28/2016 Cbc With Differential Ord2 [place]% 7.2 % 09/28/2016 Cbc With Differential Ord2 [...] 1.41 K/ul 09/28/2016 Cbc With Differential Ord2 [place] ABS# 0.5 K/ul 09/28/2016 Cbc With Differential Ord2 Eos ABS# 0.2 K/ul 09/28/2016 Cbc With Differential Ord2 Baso ABS# 0.0 K/ul 09/28/2016 Free T4 Hml401 FREE T4 1.43 ng/dL 09/28/2016 Tsh Ord6 hTSH II 0.52 uIU/mL 09/28/2016 Tsh Ord6 hTSH II 0.47 uIU/mL 06/16/2016 Comp Metabolic Qyh521 NA 139 mEq/L 06/16/2016 Comp Metabolic Uei757 K 4.3 mEq/L 06/16/2016 Comp Metabolic Ytf029 CL 105 mEq/L 06/16/2016 Comp Metabolic Mpm190 CO2 30.0 mEq/L 06/16/2016 Comp Metabolic Mjb620 AN ION GAP 8 06/16/2016 Comp Metabolic Mlq516 GL UCOSE 90 mg/dL 06/16/2016 Comp Metabolic Dmg201 Cr eat 0.7 mg/dL 06/16/2016 Comp Metabolic Qcz794 eG FR 91 ml/min/1.73m2 06/16 Comp Metabolic Crj544 BUN 15 mg/dL 06/16/2016 Comp Metabolic Vht294 B/ C Ratio 22.4 Ratio 06/16/2016 Comp Metabolic Poo807 CA LCIUM 8.8 mg/dL 06/16/2016 Comp Metabolic Pcj026 AL K PHOS 79 U/L 06/16/2016 Comp Metabolic Esm802 T(SGOT) 13 U/L 06/16/2016 Comp Metabolic Spp267 AL T(SGPT) 11 U/L 06/16/2016 Comp Metabolic Jab000 BI LI T 0.5 mg/dL 06/16/2016 Comp Metabolic Xke158 AL BUMIN 3.9 g/dL 06/16/2016 Comp Metabolic Wha436 TP RO 6.1 g/dL 06/16/2016 Comp Metabolic Xpx670 GL OB 2.2 g/dL 06/16/2016 Comp Metabolic Hst237 A/ G Ratio 1.8 Ratio 06/16/2016 Comp Metabolic Tfl815 Os mo 278 mOsmo 06/16/2016 Lipid Ord30 [...] 28.9 pg 06/16/2016 Cbc With Differential Ord2 [place]% 8.1 % 06/16/2016 Cbc With Differential Ord2 [...] 1.70 K/ul 06/16/2016 Cbc With Differential Ord2 [place] ABS# 0.4 K/ul 06/16/2016 Cbc With Differential Ord2 Eos ABS# 0.2 K/ul 06/16/2016 Cbc With Differential Ord2 Baso ABS# 0.0 K/ul 06/16/2016 Free T4 Zns600 FREE T4 1.42 ng/dL 06/16/2016 Free T4 Dtk510 FREE T4 1.34 ng/dL 03/04/2016 Tsh Ord6 hTSH II 0.56 uIU/mL 03/04/2016 Tsh Ord6 hTSH II 0.98 uIU/mL 01/27/2016 Free T4 Fpf965 FREE T4 1.19 ng/dL 01/27/2016 Free T4 Vlm287 FREE T4 1.69 ng/dL 11/23/2015 Tsh Ord6 hTSH II 0.08 uIU/mL 11/23/2015 Lipid Ord30 CHOL 185 mg/dL 08/21/2015 Lipid Ord30 HDL 50.0 mg/dl 08/21/2015 Lipid Ord30 TRIG 88 mg/dL 08/21/2015 Lipid Ord30 LDL 117 mg/dL 08/21/2015 Lipid Ord30 C/HDL 3.7 Ratio 08/21/2015 Comp Metabolic Xbb572 NA 139 mEq/L 08/21/2015 Comp Metabolic Zrz349 K 4.3 mEq/L 08/21/2015 Comp Metabolic Uod050 CL 102 mEq/L 08/21/2015 Comp Metabolic Mmo504 CO2 27.0 mEq/L 08/21/2015 Comp Metabolic Xci031 AN ION GAP 14 08/21/2015 Comp Metabolic Qkg267 GL UCOSE 89 mg/dL 08/21/2015 Comp Metabolic Wid658 Cr eat 0.7 mg/dL 08/21/2015 Comp Metabolic Yai705 eG FR 85 ml/min/1.73m2 08/21 Comp Metabolic Byn312 BUN 14 mg/dL 08/21/2015 Comp Metabolic Hgg202 B/ C Ratio 19.7 Ratio 08/21/2015 Comp Metabolic Wqi841 CA LCIUM 9.5 mg/dL 08/21/2015 Comp Metabolic Uem098 AL K PHOS 123 U/L 08/21/2015 Comp Metabolic Tke166 T(SGOT) 13 U/L 08/21/2015 Comp Metabolic Fga494 AL T(SGPT) 10 U/L 08/21/2015 Comp Metabolic Utw832 BI LI T 0.4 mg/dL 08/21/2015 Comp Metabolic Pws787 AL BUMIN 4.1 g/dL 08/21/2015 Comp Metabolic Zdk754 TP RO 6.8 g/dL 08/21/2015 Comp Metabolic Nwk890 GL OB 2.7 g/dL 08/21/2015 Comp Metabolic Mrk010 A/ G Ratio 1.5 Ratio 08/21/2015 Comp Metabolic Xzu427 Os mo 277 mOsmo 08/21/2015 Free T4 Nom459 FREE T4 1.78 ng/dL 08/21/2015 Tsh Ord6 [...] Ord2 RDW 13.9 % 08/21/2015 Quick Strep Wwt7048 Quic k Strep Negative 07/08/2015 Tsh Ord6 hTSH II 0.04 uIU/mL 05/20/2015 Free T4 Gni973 FREE T4 1.50 ng/dL 05/20/2015 Review of Systems System Result Effective Dates Constitutional No recent illness 10/30/2018 Constitutional No [...] Procedure Codes Date DESTRUCT PREMALG LESION CPT-4: 98618 01/19/2018 URINALYSIS NONAUTO W /O SCOPE CPT-4: 26401 09/12/2017 TRIAMCINOLONE ACET I [place] NOS CPT-4: J3301 06/14/2017 THER/PROPH/DIAG INJ SC/IM CPT-4: 35582 06/14/2017 PRESCRIP TRANSMIT A ERX SY CPT-4: G8553 06/14/2017 TRIAMCINOLONE ACET I [place] NOS CPT-4: J3301 03/27/2017 THER/PROPH/DIAG INJ SC/IM CPT-4: 60213 12/07/2016 TRIAMCINOLONE ACET I [place] NOS CPT-4: J3301 12/07/2016 THER/PROPH/DIAG INJ SC/IM CPT-4: 62799 11/28/2016 TRIAMCINOLONE ACET I [place] NOS CPT-4: J3301 11/28/2016 Vital Signs Date Vital 11/21/2018 Blood Pressure 1: 120/64 Code: 8480-6 Heart Rate 1: 64 bpm 10/30/2018 Blood Pressure 1: 144/70 Code: 8480-6 BMI: 37.0 Code: 68820-3 Heart Rate 1: 76 bpm Height: 5'6" SpO2: 96% Weight: 229 lbs 06/28/2018 Blood Pressure 1: 110/66 Code: 8480-6 BMI: 37.1 Code: 97890-5 Heart Rate 1: 73 bpm Height: 5'6" SpO2: 98% Weight: 230 lbs 04/04/2018 Blood Pressure 1: 128/76 Code: 8480-6 BMI: 37.9 Code: 68155-3 Heart Rate 1: 86 bpm Height: 5'6" SpO2: 98% Weight: 235 lbs 01/19/2018 Blood Pressure 1: 122/68 Code: 8480-6 Heart Rate 1: 78 bpm Height: 5'6" SpO2: 97% Weight: 01/05/2018 Blood Pressure 1: 138/78 Code: 8480-6 BMI: 38.4 Code: 25900-9 Heart Rate 1: 73 bpm Height: 5'6" SpO2: 95% Weight: 238 lbs 11/29/2017 Blood Pressure 1: 138/80 Code: 8480-6 BMI: 38.7 Code: 16732-2 Heart Rate 1: 71 bpm Height: 5'6" SpO2: 97% Weight: 240 lbs 10/25/2017 Blood Pressure 1: 136/72 Code: 8480-6 BMI: 38.7 Code: 26470-8 Heart Rate 1: 92 bpm Height: 5'6" SpO2: 98% Weight: 240 lbs 09/12/2017 Blood Pressure 1: 132/68 Code: 8480-6 BMI: 39.7 Code: 73427-1 Heart Rate 1: 76 bpm Height: 5'6" SpO2: 98% Weight: 246 lbs 06/14/2017 Blood Pressure 1: 130/80 Code: 8480-6 BMI: 39.4 Code: 00392-3 Heart Rate 1: 73 bpm Height: 5'6" SpO2: 95% Temperature: 36.9 (C ) / 98.5 (F) Weight: 244 lbs 05/10/2017 Blood Pressure 1: 128/68 Code: 8480-6 BMI: 38.7 Code: 31225-9 Heart Rate 1: 69 bpm Height: 5'6" SpO2: 97% Weight: 240 lbs 04/19/2017 Blood Pressure 1: 138/74 Code: 8480-6 BMI: 38.7 Code: 32389-6 Heart Rate 1: 73 bpm Height: 5'6" SpO2: 96% Weight: 240 lbs 03/27/2017 Blood Pressure 1: 142/84 Code: 8480-6 BMI: 38.7 Code: 74508-0 Heart Rate 1: 69 bpm Height: 5'6" SpO2: 97% Weight: 240 lbs 01/26/2017 Blood Pressure 1: 136/68 Code: 8480-6 Heart Rate 1: 64 bpm Height: 5'6" SpO2: 96% Weight: 12/07/2016 Blood Pressure 1: 130/72 Code: 8480-6 BMI: 39.7 Code: 82743-1 Heart Rate 1: 73 bpm Height: 5'6" SpO2: 93% Temperature: 36.8 (C ) / 98.3 (F) Weight: 246 lbs 11/28/2016 Blood Pressure 1: 138/60 Code: 8480-6 BMI: 39.7 Code: 99829-7 Heart Rate 1: 81 bpm Height: 5'6" SpO2: 97% Weight: 246 lbs 11/15/2016 Blood Pressure 1: 134/78 Code: 8480-6 BMI: 39.7 Code: 76925-3 Heart Rate 1: 75 bpm Height: 5'6" SpO2: 93% Temperature: 36.8 (C ) / 98.2 (F) Weight: 246 lbs 10/17/2016 Blood Pressure 1: 120/64 Code: 8480-6 BMI: 38.4 Code: 17057-6 Heart Rate 1: 69 bpm Height: 5'6" SpO2: 98% Temperature: 37.2 (C ) / 98.9 (F) Weight: 238 lbs 09/28/2016 Blood Pressure 1: 158/76 Code: 8480-6 BMI: 39.4 Code: 54169-5 Heart Rate 1: 71 bpm Height: 5'6" SpO2: 97% Weight: 244 lbs 06/29/2016 Blood Pressure 1: 124/60 Code: 8480-6 BMI: 38.7 Code: 84161-9 Heart Rate 1: 71 bpm Height: 5'6" SpO2: 98% Weight: 240 lbs 06/01/2016 Blood Pressure 1: 120/62 Code: 8480-6 BMI: 38.6 Code: 88740-4 Heart Rate 1: 76 bpm Height: 5'6" SpO2: 98% Weight: 239 lbs 05/11/2016 Blood Pressure 1: 140/80 Code: 8480-6 BMI: 38.1 Code: 02982-7 Heart Rate 1: 88 bpm Height: 5'6" SpO2: 97% Weight: 236 lbs 04/05/2016 Blood Pressure 1: 142/80 Code: 8480-6 BMI: 38.4 Code: 23661-8 Heart Rate 1: 96 bpm Height: 5'6" SpO2: 98% Weight: 238 lbs 04/01/2016 Blood Pressure 1: 136/88 Code: 8480-6 BMI: 39.2 Code: 56725-5 Heart Rate 1: 86 bpm Height: 5'6" SpO2: 96% Weight: 243 lbs 01/26/2016 Blood Pressure 1: 124/76 Code: 8480-6 BMI: 39.2 Code: 24238-6 Heart Rate 1: 76 bpm Height: 5'6" SpO2: 97% Weight: 243 lbs 12/21/2015 Blood Pressure 1: 120/64 Code: 8480-6 BMI: 37.0 Code: 43380-5 Heart Rate 1: 98 bpm Height: 5'6" SpO2: 97% Weight: 229 lbs 10/12/2015 Blood Pressure 1: 150/64 Code: 8480-6 BMI: 37.4 Code: 49282-5 Heart Rate 1: 70 bpm Height: 5'6" SpO2: 94% Weight: 232 lbs 08/24/2015 Blood Pressure 1: 128/74 Code: 8480-6 BMI: 36.8 Code: 99917-6 Heart Rate 1: 88 bpm Height: 5'6" SpO2: 94% Temperature: 36.8 (C ) / 98.3 (F) Weight: 228 lbs 06/01/2015 Blood Pressure 1: 134/68 Code: 8480-6 BMI: 36.0 Code: 98544-9 Heart Rate 1: 70 bpm Height: 5'6" SpO2: 98% Weight: 223 lbs 05/21/2015 Blood Pressure 1: 126/72 Code: 8480-6 BMI: 35.2 Code: 88055-8 Heart Rate 1: 63 bpm Height: 5'6" SpO2: 95% Weight: 218 lbs 5 oz 03/26/2015 Blood Pressure 1: 140/62 Code: 8480-6 BMI: 35.3 Code: 54829-3 Heart Rate 1: 68 bpm Height: 5'6" Weight: 219 lbs 03/11/2015 Blood Pressure 1: 130/80 Code: 8480-6 BMI: 34.9 Code: 06988-2 Heart Rate 1: 76 bpm Height: 5'6" Temperature: 37.1 (C ) / 98.7 (F) Weight: 216 lbs 12/11/2014 Blood Pressure 1: 134/62 Code: 8480-6 BMI: 34.2 Code: 95482-4 Heart Rate 1: 72 bpm Height: 5'6" Weight: 212 lbs 09/18/2014 Blood Pressure 1: 148/80 Code: 8480-6 BMI: 34.7 Code: 91624-5 Heart Rate 1: 68 bpm Height: 5'6" Weight: 215 lbs 07/31/2014 Blood Pressure 1: 124/72 Code: 8480-6 BMI: 36.2 Code: 88941-5 Heart Rate 1: 68 bpm Height: 5'6" Weight: 224 lbs Functional Status No Functional Status data History of Present Illness Symptom Name Status Resu lt Effective Date Notes Quality chronic 10/30/2018 None Onset and Resolution [...] Severity mi ld 09/28/2016 None 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 09/28/2016 None hypothyroid Onset and Resolution [...] Severity mi ld 06/01/2016 None 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 06/01/2016 None hypothyroid Onset and Resolution [...] and Resolution resolved 04/05/2016 None 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 04/05/2016 None hypothyroid Onset and Resolution [...] weakness 01/26/2016 None cough Location in the th roat 01/26/2016 None cough Quality productive 01/26/2016 [...] a ssociated factors 10/12/2015 None 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 [facility] Diagnosis: Essential (primary) hypertension[ICD10: I10] Diagnosis: Hypothyroidism, unspecified[ICD10: E03.9] Diagnosis: Low back pain[ICD10: M54.5] Lynn Finn MD, [facility] CPT- 4: 41389 10/30/2018 ([id number]) 63420 EST. [facility] Diagnosis: Acute recurrent maxillary sinusitis[ICD10: J01.01] Diagnosis: Other mucopurulent conjunctivitis, left eye[ICD10: H10.022] Diagnosis: Other allergic rhinitis[ICD10: J30.89] Lynn Finn MD, [facility] CPT-4: 02041 06/28/2018 [id number] EST. PATIENT, LEVEL IV Diagnosis: Essential (primary) hypertension[ICD10: I10] Diagnosis: Other specified hypothyroidism[ICD10: E03.8] Diagnosis: Other specified anemias[ICD10: D64.89] Diagnosis: Localized edema[ICD10: R60.0] Mishel Finn MD, [facility] CPT-4: 55919 04/04/2018 ([id number]) 36099 EST. [facility] Diagnosis: Mild persistent asthma, uncomplicated[ICD10: J45.30] Diagnosis: Actinic keratosis[ICD10: L57.0] Lynn Finn MD, [facility] CPT- 4: 32520 01/05/2018 ([id number]) Miscellaneou s no charge Diagnosis: Essential (primary) hypertension[ICD10: I10] Damari Finn MD, [facility] CPT-4: 96078 12/12/2017 [id number] EST. PATIENT, LEVEL III Diagnosis: Essential (primary) hypertension[ICD10: I10] Diagnosis: Atrophy of thyroid (acquired)[ICD10: E03.4] Diagnosis: Low back pain[ICD10: M54.5] Mishel Finn MD, [facility] CPT-4: 66860 11/29/2017 90380 EST. PATIENT, LEVEL III Diagnosis: Pain in left hip[ICD10: M25.552] Mishel Finn MD, [facility] CPT-4: 64483 10/25/2017 61522 EST. PATIENT, LEVEL IV Diagnosis: Localized edema[ICD10: R60.0] Mishel Finn MD, [facility] CPT-4: 61922 09/12/2017 66027 EST. PATIENT, LEVEL IV Diagnosis: Mild persistent asthma with (acute) exacerbation[ICD10: J45.31] Mishel Finn MD, [facility] CPT-4: 38744 06/14/2017 84033 EST. PATIENT, LEVEL III Diagnosis: Localized edema[ICD10: R60.0] Diagnosis: Mild persistent asthma, uncomplicated[ICD10: J45.30] Mishel Finn MD, [facility] CPT-4: 03415 05/10/2017 31039 EST. PATIENT, LEVEL III Diagnosis: Mild persistent asthma with (acute) exacerbation[ICD10: J45.31] Mishel Finn MD, [facility] CPT-4: 43842 04/19/2017 ([id number]) 87703 EST. P ATIENT, LEVEL IV Diagnosis: Contusion of left wrist, initial encounter[ICD10: S60.212A] Diagnosis: Hypothyroidism, unspecified[ICD10: E03.9] Diagnosis: Mild persistent asthma with (acute) exacerbation[ICD10: J45.31] Diagnosis: Low back pain[ICD10: M54.5] Lynn Finn MD, [facility] CPT- 4: 64673 03/27/2017 ([id number]) 54497 EST. P ATIENT, LEVEL IV Diagnosis: Essential (primary) hypertension[ICD10: I10] Diagnosis: Atrophy of thyroid (acquired)[ICD10: E03.4] Diagnosis: Low back pain[ICD10: M54.5] Damari Finn MD, [facility] CPT-4: 51162 01/26/2017 [id number] EST. PATIENT, LEVEL III Diagnosis: Other allergic rhinitis[ICD10: J30.89] Diagnosis: Mild persistent asthma with (acute) exacerbation[ICD10: J45.31] Mishel Finn MD, [facility] CPT-4: 78991 12/07/2016 [id number] EST. PATIENT, LEVEL III Diagnosis: Mild persistent asthma with (acute) exacerbation[ICD10: J45.31] Mishel Finn MD, [facility] CPT-4: 18776 11/28/2016 [id number] EST. PATIENT, LEVEL III Diagnosis: Mild persistent asthma with (acute) exacerbation[ICD10: J45.31] Diagnosis: Acute bronchitis due to other specified organisms[ICD10: J20.8] Mishel Finn MD, [facility] CPT-4: 03813 11/15/2016 75611 EST. PATIENT, LEVEL IV Diagnosis: Other acute sinusitis[ICD10: J01.80] Diagnosis: Other allergic rhinitis[ICD10: J30.89] Diagnosis: Mild persistent asthma with (acute) exacerbation[ICD10: J45.31] Mishel Finn MD, [facility] CPT-4: 26480 10/17/2016 ([id number]) 16560 EST. P ATIENT, LEVEL IV Diagnosis: Essential (primary) hypertension[ICD10: I10] Diagnosis: Low back pain[ICD10: M54.5] Damari Finn MD, [facility] CPT-4: 16154 09/28/2016 [id number] EST. PATIENT, LEVEL III Diagnosis: Tinea barbae and tinea capitis[ICD10: B35.0] Diagnosis: Other specified hypothyroidism[ICD10: E03.8] Mishel Finn MD, [facility] CPT-4: 21384 06/29/2016 ([id number]) 12181 EST. P ATIENT, LEVEL IV Diagnosis: Essential (primary) hypertension[ICD10: I10] Diagnosis: Atrophy of thyroid (acquired)[ICD10: E03.4] Diagnosis: Rash and other nonspecific skin eruption[ICD10: R21] Damari Finn MD, [facility] CPT-4: 27139 06/01/2016 ([id number]) 41869 EST. P ATIENT, LEVEL III Diagnosis: Cellulitis of groin[ICD10: L03.314] Damari Finn MD, [facility] CPT- 4: 46153 05/11/2016 ([id number]) 80935 EST. P ATIENT, LEVEL IV Diagnosis: Hypothyroidism, unspecified[ICD10: E03.9] Diagnosis: Candidiasis of vulva and vagina[ICD10: B37.3] Diagnosis: Essential (primary) hypertension[ICD10: I10] Diagnosis: Low back pain[ICD10: M54.5] Lynn Finn MD, [facility] CPT- 4: 42717 04/05/2016 26935 EST. PATIENT, LEVEL III Diagnosis: Other acute sinusitis[ICD10: J01.80] Diagnosis: Rash and other nonspecific skin eruption[ICD10: R21] Mishel Finn MD, [facility] CPT-4: 92803 04/01/2016 ([id number]) 55462 EST. P ATIENT, LEVEL IV Diagnosis: Essential (primary) hypertension[ICD10: I10] Diagnosis: Hypothyroidism, unspecified[ICD10: E03.9] Diagnosis: Low back pain[ICD10: M54.5] Diagnosis: Other obesity due to excess calories[ICD10: E66.09] Lynn Finn MD, [facility] CPT-4: 33106 01/26/2016 83453 EST. PATIENT, LEVEL IV Diagnosis: Essential (primary) hypertension[ICD10: I10] Diagnosis: Cutaneous abscess of face[ICD10: L02.01] Mishel Finn MD, [facility] CPT-4: 14474 12/21/2015 ([id number]) 64653 EST. P ATIENT, LEVEL III Diagnosis: Cutaneous abscess of groin[ICD10: L02.214] Diagnosis: Hypothyroidism, unspecified[ICD10: E03.9] Lynn Finn MD, [facility] CPT-4: 87654 10/12/2015 ([id number]) 23923 EST. P ATIENT, LEVEL III Diagnosis: Essential (primary) hypertension[ICD10: I10] Diagnosis: Hypothyroidism, unspecified[ICD10: E03.9] Diagnosis: Allergic rhinitis, unspecified[ICD10: J30.9] Lynn Finn MD, [facility] CPT-4: 96678 08/24/2015 ([id number]) 87480 EST. P ATIENT, LEVEL III Diagnosis: Skin infection[ICD9: 686.9] Damari Finn MD, [facility] CPT-4: 48600 06/01/2015 ([id number]) 95344 EST. P ATIENT, LEVEL III Diagnosis: Hypothyroidism[ICD9: 244.9] Diagnosis: ESSENTIAL HYPERTENSION[ICD9: 401.9] [facility] CPT- 4: 03418 05/21/2015 ([id number] 25259 EST. P ATIENT, LEVEL III Diagnosis: Hypothyroidism[ICD9: 244.9] Diagnosis: Fingernail abnormalities[ICD9: 703.8] [facility] CPT-4: 17276 03/26/2015 ([id number]) 83610 EST. P ATIENT, LEVEL II Diagnosis: Hypothyroidism[ICD9: 244.9] Maritza Finn MD, [facility] CPT-4: 39003 03/11/2015 ([id number]) 36385 EST. P ATIENT, LEVEL IV Diagnosis: ESSENTIAL HYPERTENSION[ICD9: 401.9] Diagnosis: Low back pain[ICD9: 724.2] Diagnosis: Hypothyroidism[ICD9: 244.9] [facility] CPT-4: 65956 12/11/2014 ([id number]) 18120 EST. P ATIENT, LEVEL IV Diagnosis: Hidradenitis suppurativa[ICD9: 705.83] Diagnosis: ESSENTIAL HYPERTENSION[ICD9: 401.9] Diagnosis: Low back pain[ICD9: 724.2] Diagnosis: Lumbar spinal stenosis[ICD9: 724.02] Diagnosis: HYPOTHYROIDISM[ICD9: 244.9] Damari Finn MD, [facility] CPT-4: 49625 09/18/2014 Office outpatient ne w 30 minutes Diagnosis: ESSENTIAL HYPERTENSION[ICD9: 401.9] Diagnosis: Hypothyroidism[ICD9: 244.9] Diagnosis: Low back pain[ICD9: 724.2] [facility] CPT- 4: 36652 07/31/2014 Plan of Care Planned Activity Notes C odes Status Date Appointment: Nurse Visit 11/21/2018 Patient Education: Patient [...] indicated 10/30/2018 Appointment: Lynn Arenas WPtel: [phone] [phone] [place] (30 min) Complex 10/30/2018 Patient Education: Patient Medication Summary Completed 10/30/2018 Patient Education: Hypertension Completed 10/30/2018 Patient Education: Back Pain Completed 10/30/2018 Appointment: Lynn Arenas WPtel: [phone] [phone] [place] (30 min) Complex 10/26/2018 Patient Education: Patient Medication Summary Completed 10/23/2018 Appointment: Lynn Arenas WPtel: [phone] [phone] [place] (15 min) Moderate 10/19/2018 Appointment: Damari Finn WPtel: [phone] [facility] [place] (15 min) Moderate 09/19/2018 Visit [...] daily. 06/28/2018 Appointment: [phone] [phone] (30 min) Complex 06/28/2018 Patient Education: Patient [...] monitor. 04/04/2018 Appointment: Mishel Balderrama WPtel: [facility]5 [facility] (15 min) Moderate 04/04/2018 Patient Education: Patient Medication Summary Completed 04/04/2018 Visit Plan: Wound Instructions - Pt was instructed to keep the wound clean, wash with antibacterial soap, use triple antibiotic ointment, call if redness, pustular drainage, or any other acute concerns. 01/19/2018 Appointment: Lynn Arenas WPtel: [facility]5 [phone] (30 min) Complex 01/19/2018 Patient Education: [...] concerns. 01/05/2018 Appointment: Lynn Arenas WPtel: [facility]5 [phone] (30 min) Complex 01/05/2018 Patient Education: [...] not improve. 11/29/2017 Appointment: Mishel Balderrama WPtel: [phone] [facility] [place] [address] [place] (30 min) Complex 11/29/2017 Patient Education: [...] improve. 10/25/2017 Appointment: Mishel Balderrama WPtel: [phone] [phone] (30 min) Complex 10/25/2017 Patient Education: Patient [...] peripheral edema. 09/12/2017 Appointment: Mishel Balderrama WPtel: [phone] [facility] [place] [address] [place] (30 min) Complex 09/12/2017 Patient Education: Patient Medication Summary Completed 09/12/2017 Appointment: Lynn Arenas WPtel: [facility]7 [phone] (30 min) Complex 06/27/2017 Visit Plan: Asthma [...] changes. 06/14/2017 Appointment: Mishel Balderrama WPtel: [phone] [facility] [address] (15 min) Moderate 06/14/2017 Patient Education: Patient [...] changes 05/10/2017 Appointment: Mishel Balderrama WPtel: [phone] [facility] [place] [address] [place] (15 min) Moderate 05/10/2017 Patient Education: [...] changes. 04/19/2017 Appointment: Mishel Balderrama WPtel: [phone] [facility] [address] (15 min) Moderate 04/19/2017 Patient Education: Patient [...] on previous levels of control. Low back yzar-wumxsya-uujbtp tramadol for prn use 03/27/2017 Appointment: Lynn Arenas WPtel: [phone] [facility] [phone] (30 min) Complex 03/27/2017 Patient Education: Patient [...] improve. 01/26/2017 [phone] ([facility]) Moderate 01/26/2017 Patient Education: [...] concerns. 12/07/2016 Appointment: Mishel Balderrama WPtel: [phone] [facility] [address] (15 min) Moderate 12/07/2016 Patient Education: Patient [...] changes. 11/28/2016 Appointment: Mishel Balderrama WPtel: [phone] [phone] (15 min) Moderate 11/28/2016 Patient Education: Patient Medication Summary Completed 11/28/2016 Appointment: Mishel Balderrama WPtel: [phone] [facility] (15 min) Moderate 11/24/2016 Visit Plan: [...] changes. 11/15/2016 Appointment: Mishel Balderrama WPtel: [phone] [facility] [address] (30 min) Complex 11/15/2016 Patient Education: Patient [...] Appointment: Mishel Balderrama WPtel: [phone] [phone] (30 min) Complex 10/17/2016 Patient Education: [...] tylenol 09/28/2016 [facility]ment[phone] ([facility] min) Moderate 09/28/2016 Patient Education: [...] of control. 06/29/2016 Appointment: Lynn Arenas WPtel: [phone] [phone] (15 min) Moderate 06/29/2016 Patient Education: Patient [...] fluconazole 06/01/2016 Appointment: Damari Finn WPtel: [phone] [facility] (15 min) Moderate 06/01/2016 Patient Education: Patient Medication Summary Completed 06/01/2016 Patient Education: Obesity Completed 06/01/2016 Visit Plan: Cellulitis - continue w ith oral antibiotics as previously directed, return to clinic as previously directed, call for acute change in symptoms, worsening redness, warmth, discharge. 05/11/2016 Appointment: Damari Finn WPtel: [phone] [facility] (15 min) Moderate 05/11/2016 Patient Education: [...] any concerns. 04/01/2016 Appointment: Lynn Arenas WPtel: [facility]1 [address] (30 min) Complex 04/01/2016 Patient Education: Patient Medication Summary Completed 04/01/2016 Patient Education: Obesity Completed 04/01/2016 Appointment: Lynn Arenas WPtel: [address] [place], [place] [phone] (30 min) Complex 03/29/2016 Visit Plan: Hypertension [...] levels of control. Low back pain-refill tramadol Tpwyv-toegwuxhmq-qpbmdiui resolved 01/26/2016 Appointment: Lynn Arenas WPtel: [phone] (30 min) Complex 01/26/2016 Patient Education: Patient Medication Summary Completed 01/26/2016 Patient Education: Obesity Completed 01/26/2016 Care Plan: BMI Above normal followup RADHA F-MGMT EDUC & TRAIN 1 PT Pending 01/26/2016 Care Plan: Referral Order SNOMED-CT : [id number] Pending 01/07/2016 Appointment: Lynn Arenas WPtel: [address] [place], [place] [phone] (15 min) Moderate 12/24/2015 Visit Plan: Hypertension [...] nor improving. 06/01/2015 Appointment: Damari Finn WPtel: [address] [place] [address] (15 min) Moderate 06/01/2015 Patient Education: Patient [...] refill tramadol 12/11/2014 Appointment: Damari Finn WPtel: [facility] follow up 12/11/2014 Patient Education: Patient Medication Summary Completed 12/11/2014 Patient Education: Hypertension Completed 12/11/2014 Appointment: Damari Finn WPtel: [facility] follow up 11/27/2014 Visit Plan: [...] to get her back MRI done at [facility] in [place] as that is where her specialist will be once we get her an appt with one of the local Neurosurgeons. 09/18/2014 Appointment: [phone] [facility] 09/18/2014 Patient Education: Patient [...] scheduled 07/31/2014 Appointment: Lynn Arenas WPtel: [phone] [phone] New Patient 07/31/2014 Patient Education: Patient Medication [...] . 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 Low back wrgy-rdsxasp-cvicvw tramadol for prn use claritin or zyrtec [...] . Asthma Exacerbation - Asthma is a financial analyst accountant jamee problem for this patient, however, the [...] . Asthma Exacerbation - Asthma is a financial analyst accountant jamee problem for this patient, however, the [...] is stable, monitor for acute changes. . Skin infection - r ecommended treatment with oral antibiotic and topical antibiotic. Pt to call if nor improving. . Cellulitis - oleg nue with oral antibiotics as previously directed, return to clinic as previously directed, call for acute change in symptoms, worsening redness, warmth, discharge. Declined Procedure: ([id number]) FLU VAC NO PRSV 4 JUSTYNA 3 YRS+; Declined Reason: refused Physical therapy at [facility] . Hypertension - well controlled - oleg [...] levels of control. Low back pain-refill tramadol Jhqip-trkefryfag-jxfcobqk resolved . Hypertension - wel l controlled [...] to get her back MRI done at [facility] in [place] as that is where her specialist will [...]
--- OUTSIDE RECORDS SUMMARY | 2020-02-20 19:12 | XMS REPORT | CCD ---
Author Author Ewa Arenas Organization Damari Finn MD, [facility] Address [address] [place] [address] Phone Care Team Providers Care Supervisor Travel Trailer Name Role Phone PP Unavailable CCM Unavailable Summary Purpose Interface Exchange Insurance Providers Payer name Policy type / Coverage type Covered democrat ID Effective Begin Date Effective End Date WPS Medicare Part B Medicare Part B [id number] Unknown [place] [employer] Life Insurance M edicare Part B [id number] Unkn own Family history Father Diagnosis Age At Onset Alcoholism Unknown Cancer Unknown Asthma Unknown Mother Diagnosis Age At Onset Cancer Unknown Alcoholism Unknown Cancer Unknown Son Diagnosis Age At Onset Hearing loss Unknown Social History Social History Element Codes Description Effective Dates Marital status Unknown D ivorced 07/31/2014 Number of children Unknown 2 07/31/2014 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 Unknown Has never used illegal drugs 014 Allergies, Adverse Reactions, Alerts Substance Reaction Codes Entered Date Inactivated Date Status bactrim hives, rash RxNorm: 476946 04/05/2016 No Inactive Date Active Past Medical History Illness Codes Condition Status Onset Date Resolved Date Contusion of left wr ist, initial encounter ICD-9: 923.21 ICD-10: S60.212A Active 03/27/2017 Unknown Hypothyroidism, unsp ecified ICD-9: 244.9 ICD-10: E03.9 Active 07/31/2014 Unknown Low back pain ICD-9: 724.2 ICD-10: M54.5 Active 04/04/2016 Unknown Mild persistent asth ma with (acute) exacerbation ICD-9: 493.12 ICD-10: J45.31 Active 10/17/2016 Unknown 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 ICD-10: E03.4 Active 05/31/2016 Unknown Essential (primary) hypertension ICD-9: 401.9 ICD-10: I10 Active 07/31/2014 Unknown Other allergic rhinitis ICD-9: 477.8 ICD-10: J30.89 Active 10/17/2016 Unknown Acute bronchitis due to other specified organisms ICD-9: 466.0 ICD-10: J20.8 Active 11/15/2016 Unknown Other acute sinusitis ICD-9: 461.8 ICD-10: J01.80 Active 03/31/2016 Unknown Other specified hypo thyroidism ICD-9: 244.8 ICD-10: E03.8 Active 06/28/2016 Unknown Tinea barbae and tin ea capitis [...] Condition Codes Effectiv e Dates Condition Status Contusion of left wr ist, initial encounter ICD-9: 923.21 ICD-10: S60.212A 03/27/2017 Active Hypothyroidism, unsp ecified ICD-9: 244.9 ICD-10: E03.9 07/31/2014 Active Low back pain ICD-9: 724.2 ICD-10: M54.5 04/04/2016 Active Mild persistent asth ma with (acute) exacerbation ICD-9: 493.12 ICD-10: J45.31 10/17/2016 Active 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 ICD-10: E03.4 05/31/2016 Active Essential (primary) hypertension ICD-9: 401.9 ICD-10: I10 07/31/2014 Active Other allergic rhinitis ICD-9: 477.8 ICD-10: J30.89 10/17/2016 Active Acute bronchitis due to other specified organisms ICD-9: 466.0 ICD-10: J20.8 11/15/2016 Active Other acute sinusitis ICD-9: 461.8 ICD-10: J01.80 03/31/2016 Active Other specified hypo thyroidism ICD-9: 244.8 ICD-10: E03.8 06/28/2016 Active Tinea barbae and tin ea capitis [...] Fill Instructions tramadol 50 mg tablet RxNorm: 156495 1 Tablet(s) PO Q4 PRN as needed for pain 03/27/2017 04/15/2017 Ac tive [SAVINGS FOR UNINSURED PATIENTS -- BIN:0 68014, PCN: ASPROD1, Group: AME08, ID# [id number], Process claim through [employer], for questions: . THIS IS NOT INSURANCE.] Kenalog 40 mg/mL madhavi pension for injection RxNorm: 0577952 1 Milliliter(s) Inj 03/27/2017 03/27/2017 In active tramadol 50 mg tablet RxNorm: 685399 1 Tablet(s) PO Q4H as needed for pain 03/09/2017 03/26/2017 In active [SAVINGS FOR UNINSURED PATIENTS -- BIN:0 42762, PCN: ASPROD1, Group: AME08, ID# [id number], Process claim through [employer], for questions: . THIS IS NOT INSURANCE.] lisinopril 20 mg-hyd rochlorothiazide 25 mg tablet RxNorm: 080154 TAKE ONE TABLET BY MOUTH DAILY 01/29/2017 06/27/2017 Active lorazepam 1 mg tablet RxNorm: 036902 Tablet(s) TAKE TWO TABLETS BY MOUTH AT B EDTIME NEEDED FOR INSOMNIA AND ONE TABLET DAILY NEEDED ANXIETY 01/05/2017 04/04/2017 Active tramadol 50 mg tablet RxNorm: 351242 1 Tablet(s) PO Q4H as needed for pain 12/07/2016 01/13/2017 In active [SAVINGS FOR UNINSURED PATIENTS -- BIN:0 43229, PCN: ASPROD1, Group: LINDY, ID# [id number], Process claim through [employer], for questions: . THIS IS NOT INSURANCE.] Kenalog 40 mg/mL madhavi pension for injection RxNorm: 3142469 Milliliter(s) Inj 12/07/2016 12/07/2016 In active nystatin 100,000 uni t/mL oral suspension RxNorm: 927168 4 Milliliter(s) PO QI D 12/07/2016 12/11/2016 In active Francia-D 12 Hour 60 mg-120 mg tablet,extended release RxNorm: 106232 1 Tablet(s) PO BID 12/07/2016 01/11/2017 Inactive lorazepam 1 mg tablet RxNorm: 253601 Tablet(s) TAKE TWO TABLETS BY MOUTH AT B EDTIME AND ONE TABLET DAILY NEEDED 12/07/2016 01/04/2017 Inactive (Response to an electronic controlled substance refill request - RxReferenceNumber: [id number]) albuterol sulfate 2. 5 mg/3 mL (0.083 %) solution for nebulization RxNorm: 319537 3 Milliliter(s) INH TID 11/29/2016 11/28/2016 Inactive prednisone 10 mg tablet RxNorm: 957466 Tablet(s) PO UD 11/29/2016 12/05/2016 Inactive 6,5,4,3,2,1 doxycycline hyclate 100 mg tablet RxNorm: 213882 1 Tablet(s) PO BID 11/29/2016 12/04/2016 Inactive albuterol sulfate 2. 5 mg/3 mL (0.083 %) solution for nebulization RxNorm: 476252 3 Milliliter(s) INH TID 11/29/2016 12/03/2016 Inactive Kenalog 40 mg/mL madhavi pension for injection RxNorm: 2213596 Milliliter(s) Inj 11/28/2016 11/28/2016 In active Advair Diskus 100 mc g-50 mcg/dose powder for inhalation RxNorm: 5988784 1 Puff(s) INH BID 11/15/2016 03/14/2017 Inactive ProAir HFA 90 mcg/ac tuation aerosol inhaler RxNorm: 339859 INHALE 1 TO 2 PUFFS F OUR TIMES A DAY NEEDED FOR ASTHMA 11/15/2016 04/13/2017 Active tramadol 50 mg tablet RxNorm: 180471 1 Tablet(s) PO Q4H as needed for pain 11/15/2016 12/06/2016 In active [SAVINGS FOR UNINSURED PATIENTS -- BIN:0 10807, PCN: ASPROD1, Group: AME08, ID# [id number], Process claim through [employer], for questions: . THIS IS NOT INSURANCE.] prednisone 20 mg tablet RxNorm: 143621 2 Tablet(s) PO daily 11/15/2016 11/19/2016 Inactive Zithromax Z-Linus 250 mg tablet RxNorm: 432102 1 Tablet(s) PO UD 11/15/2016 11/27/2016 Inactive Zyrtec 10 mg tablet RxNorm: 3873673 1 Tablet(s) PO daily 10/17/2016 11/15/2016 Inactive Keflex 500 mg capsule RxNorm: 080017 1 Capsule(s) PO TID 10/17/2016 10/23/2016 Inactive prednisone 10 mg tablet RxNorm: 974304 Tablet(s) PO UD 10/17/2016 11/28/2016 Inactive 6,5,4,3,2,1 tramadol 50 mg tablet RxNorm: 454684 1 Tablet(s) PO Q4H as needed for pain 09/28/2016 11/06/2016 In active [SAVINGS FOR UNINSURED PATIENTS -- BIN:0 80846, PCN: ASPROD1, Group: AME08, ID# [id number], Process claim through [employer], for questions: . THIS IS NOT INSURANCE.] ProAir HFA 90 mcg/ac tuation aerosol inhaler RxNorm: 498644 INHALE 1 TO 2 PUFFS F OUR TIMES A DAY NEEDED FOR ASTHMA 09/15/2016 11/14/2016 Inactive doxycycline hyclate 100 mg tablet RxNorm: 818526 1 Tablet(s) PO BID 09/15/2016 09/24/2016 Inactive doxycycline hyclate 100 mg tablet RxNorm: 744993 1 Tablet(s) PO BID 07/29/2016 08/07/2016 Inactive tramadol 50 mg tablet RxNorm: 902037 1 Tablet(s) PO Q4H as needed for pain 07/29/2016 09/06/2016 In active [SAVINGS FOR UNINSURED PATIENTS -- BIN:0 35502, PCN: ASPROD1, Group: AME08, ID# [id number], Process claim through [employer], for questions: . THIS IS NOT INSURANCE.] lorazepam 1 mg tablet RxNorm: 306748 Tablet(s) TAKE TWO TABLETS BY MOUTH AT B EDTIME AND ONE TABLET DAILY NEEDED 07/29/2016 10/26/2016 Inactive (Response to an electronic controlled substance refill request - RxReferenceNumber: [id number]) levothyroxine 137 mc g tablet RxNorm: 440067 1 Tablet(s) PO daily 06/29/2016 12/25/2016 Inactive levothyroxine 125 mc g tablet RxNorm: 432296 1 Tablet(s) PO daily 06/29/2016 06/29/2016 Inactive ketoconazole 2 % sha mpoo RxNorm: 603498 1 Application TOP BID 06/29/2016 07/03/2016 Inactive Bactroban 2 % topica l ointment RxNorm: 291084 APPLY TO AFFECTED ARE A(S) TWO TIMES A DAY 06/16/2016 07/15/2016 Inactive tramadol 50 mg tablet RxNorm: 282219 1 Tablet(s) PO Q4H as needed for pain 06/16/2016 07/25/2016 In active [SAVINGS FOR UNINSURED PATIENTS -- BIN:0 08800, PCN: ASPROD1, Group: AME08, ID# [id number], Process claim through [employer], for questions: . THIS IS NOT INSURANCE.] fluconazole 150 mg t ablet RxNorm: 963389 1 Tablet(s) PO daily 06/01/2016 06/05/2016 Inactive gentamicin 0.1 % top ical ointment RxNorm: 197802 1 Application TOP QID 05/12/2016 05/25/2016 In active metronidazole 500 mg tablet RxNorm: 689162 1 Tablet(s) PO TID 05/11/2016 05/24/2016 Inactive gentamicin 0.1 % top ical ointment RxNorm: 105585 1 Application TOP QID 05/11/2016 05/11/2016 In active doxycycline hyclate 100 mg tablet RxNorm: 665534 1 Tablet(s) PO BID 05/11/2016 05/24/2016 Inactive Diflucan 150 mg tablet RxNorm: 338671 1 Tablet(s) PO daily x5 days then 1 x we ekly x 4 weeks. 05/02/2016 05/11/2016 Inactive lorazepam 1 mg tablet RxNorm: 165526 Tablet(s) TAKE TWO TABLETS BY MOUTH AT B EDTIME AND ONE TABLET DAILY NEEDED 05/02/2016 07/28/2016 Inactive (Response to an electronic controlled substance refill request - RxReferenceNumber: [id number]) Diflucan 150 mg tablet RxNorm: 381337 1 Tablet(s) PO every other day 04/19/2016 04/28/2016 In active Diflucan 150 mg tablet RxNorm: 815433 1 Tablet(s) PO every other day 04/19/2016 04/18/2016 In active Diflucan 150 mg tablet RxNorm: 752968 1 Tablet(s) PO daily 04/05/2016 04/11/2016 Inactive mupirocin 2 % topica l ointment RxNorm: 775415 1 Application TOP BID 04/05/2016 05/04/2016 Inactive tramadol 50 mg tablet RxNorm: 079112 1 Tablet(s) PO Q4H as needed for pain 04/05/2016 05/14/2016 In active [SAVINGS FOR UNINSURED PATIENTS -- BIN:0 20486, PCN: ASPROD1, Group: AME08, ID# [id number], Process claim through [employer], for questions: . THIS IS NOT INSURANCE.] prednisone 10 mg tablet RxNorm: 322412 Tablet(s) PO UD 04/01/2016 09/26/2016 Inactive 6,5,4,3,2,1 levothyroxine 137 mc g tablet RxNorm: 355918 1 Tablet(s) PO daily 03/21/2016 03/20/2016 Inactive levothyroxine 137 mc g tablet RxNorm: 209080 1 Tablet(s) PO daily 03/21/2016 06/28/2016 Inactive Advair Diskus 100 mc g-50 mcg/dose powder for inhalation RxNorm: 8023985 1 Puff(s) INH BID 01/26/2016 05/24/2016 Inactive tramadol 50 mg tablet RxNorm: 143240 1 Tablet(s) PO Q4H as needed for pain 01/26/2016 03/05/2016 In active [SAVINGS FOR UNINSURED PATIENTS -- BIN:0 26705, PCN: ASPROD1, Group: AME08, ID# [id number], Process claim through [employer], for questions: . THIS IS NOT INSURANCE.] Bactroban 2 % topica l ointment RxNorm: 921364 APPLY TO AFFECTED ARE A(S) TWO TIMES A DAY 12/22/2015 12/31/2015 Inactive Bactrim DS 800 mg-16 0 mg tablet RxNorm: 951019 TAKE ONE TABLET BY [facility] TWICE A DAY 12/22/2015 04/18/2016 In active Bactrim DS 800 mg-16 0 mg tablet RxNorm: 079932 1 Tablet(s) PO BID 12/21/2015 12/30/2015 Inactive lisinopril 20 mg-hyd rochlorothiazide 25 mg tablet RxNorm: 866122 1 Tablet(s) PO daily 12/21/2015 06/17/2016 Inactive [SAVINGS FOR UNINSURED PATIENTS -- BIN:0 19002, PCN: ASPROD1, Group: AME08, ID# [id number], Process claim through [employer], for questions: . THIS IS NOT INSURANCE.] tramadol 50 mg tablet RxNorm: 623066 1 Tablet(s) PO Q4H as needed for pain 12/03/2015 01/11/2016 In active [SAVINGS FOR UNINSURED PATIENTS -- BIN:0 80053, PCN: ASPROD1, Group: AME08, ID# [id number], Process claim through [employer], for questions: . THIS IS NOT INSURANCE.] lorazepam 1 mg tablet RxNorm: 522633 Tablet(s) TAKE TWO TABLETS BY MOUTH AT B EDTIME AND ONE TABLET DAILY NEEDED 11/26/2015 02/21/2016 Inactive (Response to an electronic controlled substance refill request - RxReferenceNumber: [id number]) Bactrim DS 800 mg-16 0 mg tablet RxNorm: 701824 1 Tablet(s) PO BID 11/25/2015 12/04/2015 Inactive levothyroxine 150 mc g tablet RxNorm: 727845 1 Tablet(s) PO daily 11/25/2015 03/20/2016 Inactive Bactroban 2 % topica l ointment RxNorm: 605884 1 Application TOP BID 10/12/2015 10/21/2015 Inactive Bactrim DS 800 mg-16 0 mg tablet RxNorm: 480059 1 Tablet(s) PO BID 09/07/2015 09/06/2015 Inactive Bactrim DS 800 mg-16 0 mg tablet RxNorm: 654679 1 Tablet(s) PO BID 09/07/2015 09/16/2015 Inactive lorazepam 1 mg tablet RxNorm: 823487 Tablet(s) TAKE TWO TABLETS BY MOUTH AT B EDTIME AND ONE TABLET DAILY NEEDED 08/28/2015 11/24/2015 Inactive (Response to an electronic controlled substance refill request - RxReferenceNumber: [id number]) tramadol 50 mg tablet RxNorm: 411835 1 Tablet(s) PO Q4H as needed for pain 08/24/2015 10/01/2015 In active [SAVINGS FOR UNINSURED PATIENTS -- BIN:0 33318, PCN: ASPROD1, Group: AME08, ID# [id number], Process claim through [employer], for questions: . THIS IS NOT INSURANCE.] lisinopril 20 mg-hyd rochlorothiazide 25 mg tablet RxNorm: 143078 1 Tablet(s) PO daily TAKE 1 TABLET BY MOUTH DAILY 08/24/2015 10/22/2015 Inactive levothyroxine 175 mc g tablet RxNorm: 868289 1 Tablet(s) PO daily 08/24/2015 11/24/2015 Inactive ProAir HFA 90 mcg/ac tuation aerosol inhaler RxNorm: 171653 1-2 Puff(s) INH PRN I NHALE ONE TO TWO PUFFS BY MOUTH FOUR TIMES A DAY NEEDED FOR ASTHMA 08/24/2015 12/01/2015 In active ProAir HFA 90 mcg/ac tuation aerosol inhaler RxNorm: 3186989 INHALE ONE TO TWO PU FFS BY MOUTH FOUR TIMES A DAY NEEDED FOR ASTHMA 08/17/2015 08/23/2015 Inactive Advair Diskus 250 mc g-50 mcg/dose powder for inhalation RxNorm: 0284812 1 Puff(s) INH BID 07/20/2015 07/19/2015 Inactive Advair Diskus 250 mc g-50 mcg/dose powder for inhalation RxNorm: 3755826 1 Puff(s) INH BID 07/20/2015 11/16/2015 Inactive tramadol 50 mg tablet RxNorm: 329918 1 Tablet(s) PO Q4H as needed for pain 07/10/2015 08/17/2015 In active [SAVINGS FOR UNINSURED PATIENTS -- BIN:0 06149, PCN: ASPROD1, Group: AME08, ID# [id number], Process claim through [employer], for questions: . THIS IS NOT INSURANCE.] Zithromax Z-Linus 250 mg tablet RxNorm: 759438 1 Tablet(s) PO UD 07/10/2015 01/18/2016 Inactive Keflex 500 mg capsule RxNorm: 982131 1 Capsule(s) PO TID 06/01/2015 06/07/2015 Inactive mupirocin 2 % topica l ointment RxNorm: 886637 1 Application TOP TID 06/01/2015 06/10/2015 Inactive lisinopril 20 mg-hyd rochlorothiazide 25 mg tablet RxNorm: 687596 TAKE 1 TABLET BY MOUT H DAILY 05/30/2015 08/23/2015 Inactive lisinopril 20 mg-hyd rochlorothiazide 25 mg tablet RxNorm: 001486 1 Tablet(s) PO daily 05/29/2015 11/24/2015 Inactive [SAVINGS FOR UNINSURED PATIENTS -- BIN:0 82304, PCN: ASPROD1, Group: AME08, ID# [id number], Process claim through [employer], for questions: . THIS IS NOT INSURANCE.] lorazepam 1 mg tablet RxNorm: 183926 Tablet(s) TAKE TWO TABLETS BY MOUTH AT B EDTIME AND ONE TABLET DAILY NEEDED 04/17/2015 07/13/2015 Inactive (Response to an electronic controlled substance refill request - RxReferenceNumber: [id number]) levothyroxine 200 mc g tablet RxNorm: 881818 1 Tablet(s) PO daily 03/12/2015 08/23/2015 Inactive [SAVINGS FOR UNINSURED PATIENTS -- BIN:0 16717, PCN: ASPROD1, Group: AME08, ID# [id number], Process claim through [employer], for questions: . THIS IS NOT INSURANCE.] lisinopril 20 mg-hyd rochlorothiazide 25 mg tablet RxNorm: 150568 1 Tablet(s) PO daily 03/11/2015 05/28/2015 Inactive [SAVINGS FOR UNINSURED PATIENTS -- BIN:0 45821, PCN: ASPROD1, Group: AME08, ID# [id number], Process claim through [employer], for questions: . THIS IS NOT INSURANCE.] levothyroxine 175 mc g tablet RxNorm: 510355 1 Tablet(s) PO daily 03/09/2015 03/11/2015 Inactive recheck blood in 3 months- THIS IS CORRE CT DOSAGE levothyroxine 175 mc g tablet RxNorm: 027605 1 Tablet(s) PO daily 03/09/2015 03/08/2015 Inactive recheck blood in 3 months levothyroxine 150 mc g tablet RxNorm: 320125 1 Tablet(s) PO daily 03/09/2015 03/08/2015 Inactive recheck blood in 3 months lorazepam 1 mg tablet RxNorm: 577464 TAKE TWO TABLETS BY MOUTH AT BEDTIME AND ONE TABLET DAILY NEEDED 12/25/2014 01/22/2015 Inactive (Response to an electronic controlled substance refill request - RxReferenceNumber: [id number]) lorazepam 1 mg tablet RxNorm: 757706 Tablet(s) TAKE TWO TABLETS BY MOUTH EVER Y NIGHT AT BEDTIME AND TAKE ONE TABLET BY MOUTH DAILY NEEDED 12/23/2014 12/25/2014 Inactive (Response to an electronic controlled north bstance refill request - RxReferenceNumber: [id number]) levothyroxine 150 mc g tablet RxNorm: 324797 1 Tablet(s) PO daily 12/12/2014 03/08/2015 Inactive recheck blood in 3 months Diflucan 150 mg tablet RxNorm: 515508 1 Tablet(s) PO every other day (start af ter finished with Cipro) 11/17/2014 08/23/2015 Inactive tramadol 50 mg tablet RxNorm: 308995 1 Tablet(s) PO Q4H as needed for pain 11/10/2014 12/17/2014 In active [SAVINGS FOR UNINSURED PATIENTS -- BIN:0 33046, PCN: ASPROD1, Group: AME08, ID# [id number], Process claim through [employer], for questions: . THIS IS NOT INSURANCE.] Cipro 500 mg tablet RxNorm: 893822 1 Tablet(s) PO BID 10/23/2014 10/29/2014 Inactive Flagyl 500 mg tablet RxNorm: 383486 1 Tablet(s) PO TID 10/23/2014 10/29/2014 Inactive Cipro 500 mg tablet RxNorm: 196731 1 Tablet(s) PO BID 10/23/2014 10/22/2014 Inactive Flagyl 500 mg tablet RxNorm: 278437 1 Tablet(s) PO TID 10/23/2014 10/22/2014 Inactive Diflucan 150 mg tablet RxNorm: 224069 1 Tablet(s) PO every other day (start af ter finished with Cipro) 10/23/2014 11/16/2014 Inactive lorazepam 1 mg tablet RxNorm: 237093 TAKE TWO TABLETS BY MOUTH EVERY NIGHT AT BEDTIME AND TAKE ONE TABLET BY MOUTH DAILY NEEDED 10/21/2014 10/21/2014 Inactive (Response to an electronic controlled north bstance refill request - RxReferenceNumber: [id number]) lorazepam 1 mg tablet RxNorm: 704939 TAKE TWO TABLETS BY MOUTH EVERY NIGHT AT BEDTIME AND TAKE ONE TABLET BY MOUTH DAILY NEEDED 10/21/2014 11/18/2014 Inactive (Response to an electronic controlled north bstance refill request - RxReferenceNumber: [id number]) lorazepam 1 mg tablet RxNorm: 756646 Tablet(s) TAKE TWO TABLETS BY MOUTH AT B EDTIME, ALSO TAKE ONE TABLET BY MOUTH DAILY NEEDED 10/13/2014 10/21/2014 Inactive (Res ponse to an electronic controlled substance refill request - RxReferenceNumber: [id number]) ProAir HFA 90 mcg/ac tuation aerosol inhaler RxNorm: 6879432 1-2 inhale INH QID a s needed ASTHMA 10/13/2014 12/26/2014 Inactive ProAir HFA 90 mcg/ac tuation aerosol inhaler RxNorm: 6262452 1-2 inhale INH QID a s needed ASTHMA 09/18/2014 10/12/2014 Inactive meloxicam 7.5 mg tablet RxNorm: 139792 1 Tablet(s) PO daily 09/18/2014 03/10/2015 Inactive [SAVINGS FOR UNINSURED PATIENTS -- BIN:0 36549, PCN: ASPROD1, Group: AME08, ID# [id number], Process claim through [employer], for questions: . THIS IS NOT INSURANCE.] sulfamethoxazole 800 mg-trimethoprim 160 mg tablet RxNorm: 623480 1 Tablet(s) PO BID 09/18/2014 10/07/2014 Inactive levothyroxine 175 mc g tablet RxNorm: 016906 1 Tablet(s) PO daily 09/17/2014 12/11/2014 Inactive levothyroxine 175 mc g tablet RxNorm: 949441 1 Tablet(s) PO daily 09/17/2014 09/16/2014 Inactive lorazepam 1 mg tablet RxNorm: 701336 Tablet(s) TAKE TWO TABLETS BY MOUTH AT B EDTIME, ALSO TAKE ONE TABLET BY MOUTH DAILY NEEDED 09/12/2014 10/11/2014 Inactive (Res ponse to an electronic controlled substance refill request - RxReferenceNumber: [id number]) lorazepam 1 mg tablet RxNorm: 844270 TAKE TWO TABLETS BY MOUTH AT BEDTIME, AL SO TAKE ONE TABLET BY MOUTH DAILY NEEDED 09/08/2014 09/11/2014 Inactive (Res ponse to an electronic controlled substance refill request - RxReferenceNumber: [id number]) meloxicam 7.5 mg tablet RxNorm: 672178 1 Tablet(s) PO daily 09/01/2014 09/17/2014 Inactive [SAVINGS FOR UNINSURED PATIENTS -- BIN:0 49141, PCN: ASPROD1, Group: AME08, ID# [id number], Process claim through [employer], for questions: . THIS IS NOT INSURANCE.] lisinopril 20 mg-hyd rochlorothiazide 25 mg tablet RxNorm: 394009 1 Tablet(s) PO daily 09/01/2014 12/29/2014 Inactive [SAVINGS FOR UNINSURED PATIENTS -- BIN:0 08317, PCN: ASPROD1, Group: AME08, ID# [id number], Process claim through [employer], for questions: . THIS IS NOT INSURANCE.] tramadol 50 mg tablet RxNorm: 308191 1 Tablet(s) PO Q4H as needed for pain 08/20/2014 11/07/2014 In active [SAVINGS FOR UNINSURED PATIENTS -- BIN:0 75905, PCN: ASPROD1, Group: AME08, ID# [id number], Process claim through [employer], for questions: . THIS IS NOT INSURANCE.] meloxicam 7.5 mg tablet RxNorm: 548115 1 Tablet(s) PO daily 08/14/2014 08/31/2014 Inactive [SAVINGS FOR UNINSURED PATIENTS -- BIN:0 31719, PCN: ASPROD1, Group: AME08, ID# [id number], Process claim through [employer], for questions: . THIS IS NOT INSURANCE.] lorazepam 1 mg tablet RxNorm: 728126 2 Tablet(s) PO QHS and 1 tab qd PRN 08/01/2014 09/08/2014 In active [SAVINGS FOR UNINSURED PATIENTS -- BIN:0 81882, PCN: ASPROD1, Group: AME08, ID# [id number], Process claim through [employer], for questions: . THIS IS NOT INSURANCE.] levothyroxine 200 mc g tablet RxNorm: 671751 1 Tablet(s) PO daily 07/31/2014 09/16/2014 Inactive [SAVINGS FOR UNINSURED PATIENTS -- BIN:0 63549, PCN: ASPROD1, Group: AME08, ID# [id number], Process claim through [employer], for questions: . THIS IS NOT INSURANCE.] lorazepam 1 mg tablet RxNorm: 383372 2 Tablet(s) PO QHS and 1 tab qd PRN No Start Date 07/31/2014 Inactive meloxicam 7.5 mg tablet RxNorm: 572560 1 Tablet(s) PO daily No Start Date 08/13/2014 Inactive lisinopril 20 mg-hyd rochlorothiazide 25 mg tablet RxNorm: 455537 1 Tablet(s) PO daily No Start Date 08/31/2014 Inactive levothyroxine 200 mc g tablet RxNorm: 711429 1 Tablet(s) PO daily No Start Date 07/30/2014 Inactive Diflucan 150 mg tablet RxNorm: 808418 1 Tablet(s) PO every other day No Start Date 10/22/2014 Inactive Zithromax Z-Linus 250 mg tablet RxNorm: 985389 1 Tablet(s) PO UD No Start Date 07/09/2015 Inactive tramadol 50 mg tablet RxNorm: 814547 1 Tablet(s) PO Q6 as needed No Start Date 08/19/2014 Inactive Medication Administered Medication Codes Instruc tions Start Date Status Kenalog 40 mg/mL suspension for injection RxNorm: 5205504 1Milliliter 03/27/2017 N o longer Active Kenalog 40 mg/mL suspension for injection RxNorm: 8653564 Milliliter 12/07/2016 No longer Active Kenalog 40 mg/mL suspension for injection RxNorm: 0964207 Milliliter 11/28/2016 No longer Active Immunizations Vaccine Codes Date Status Pneumococcal CVX: 33 09/1986 completed Tetanus, Diptheria, Pertussis CVX: 113 03/11/1987 completed Tetanus/Diptheria CVX: 113 03/11/1987 completed Influenza CVX: 141 03/11 completed Assessments Condition Codes Effectiv e Dates Mild persistent asthma with (acute) exacerbation ICD-10: J45.31 ICD-9: 493.12 03/27/2017 Contusion of left wrist, initial encounter ICD-10: S60.212A ICD-9: 923.21 03/27/2017 Low back pain ICD-10: M54.5 ICD-9: 724.2 03/27/2017 Hypothyroidism, unspecified ICD-10: E03.9 ICD-9: 244.9 03/27/2017 Essential (primary) hypertension ICD -10: I10 ICD-9: 401.9 01/26/2017 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 ICD-9: 244.8 01/26/2017 Other allergic rhinitis ICD-10: J30. 89 ICD-9: 477.8 12/07/2016 Acute bronchitis due to other specified organisms ICD-10: J20.8 ICD-9: 466.0 11/15/2016 Other acute sinusitis ICD-10: J01.80 ICD-9: 461.8 10/17/2016 Other specified hypothyroidism ICD-1 0: E03.8 ICD-9: 244.8 06/29/2016 Tinea barbae and tinea capitis ICD-1 0: [...] Visit Reason For Visit Effective Dates Notes wheezing 03/27/2017 back pain 01/26/2017 cough 12/07/2016 [...] Item Item Code Result Date Tsh Ord6 hTSH II 1.45 uIU/mL 03/27/2017 Free T4 Fup271 FREE T4 1.23 ng/dL 03/27/2017 Comp Metabolic Hcq534 NA 140 mEq/L 09/28/2016 Comp Metabolic Eiq319 K 3.9 mEq/L 09/28/2016 Comp Metabolic Xui012 CL 104 mEq/L 09/28/2016 Comp Metabolic Vgf538 CO2 28.0 mEq/L 09/28/2016 Comp Metabolic Lvn924 AN ION GAP 12 09/28/2016 Comp Metabolic Ibh385 GL UCOSE 97 mg/dL 09/28/2016 Comp Metabolic Xze319 Cr eat 0.8 mg/dL 09/28/2016 Comp Metabolic Qrq594 eG FR 79 ml/min/1.73m2 09/28 Comp Metabolic Uov487 BUN 13 mg/dL 09/28/2016 Comp Metabolic Ctk433 B/ C Ratio 17.1 Ratio 09/28/2016 Comp Metabolic Nnk983 CA LCIUM 8.9 mg/dL 09/28/2016 Comp Metabolic Bmq516 AL K PHOS 100 U/L 09/28/2016 Comp Metabolic Ijm102 T(SGOT) 12 U/L 09/28/2016 Comp Metabolic Ulw185 AL T(SGPT) 9 U/L 09/28/2016 Comp Metabolic Qdg368 BI LI T 0.4 mg/dL 09/28/2016 Comp Metabolic Dok512 AL BUMIN 4.1 g/dL 09/28/2016 Comp Metabolic Cjf241 TP RO 6.6 g/dL 09/28/2016 Comp Metabolic Yof799 GL OB 2.5 g/dL 09/28/2016 Comp Metabolic Kck229 A/ G Ratio 1.6 Ratio 09/28/2016 Comp Metabolic Jmw898 Os mo 279 mOsmo 09/28/2016 Lipid Ord30 [...] 21.5 % 09/28/2016 Cbc With Differential Ord2 Barnes% 7.2 % 09/28/2016 Cbc With Differential Ord2 MCH 28.8 pg 09/28/2016 Cbc With Differential Ord2 Eos% 2.4 % 09/28/2016 Cbc With Differential Ord2 MCHC 33.0 pg 09/28/2016 Cbc With Differential Ord2 PLT 232 K/ul 09/28/2016 Cbc With Differential Ord2 Baso% 0.3 % 09/28/2016 Cbc With Differential Ord2 RDW 14.2 % 09/28/2016 Cbc With Differential Ord2 Neut ABS# 4.49 K/ul 09/28/2016 Cbc With Differential Ord2 Lymph ABS# 1.41 K/ul 09/28/2016 Cbc With Differential Ord2 Barnes ABS# 0.5 K/ul 09/28/2016 Cbc With Differential Ord2 Eos ABS# 0.2 K/ul 09/28/2016 Cbc With Differential Ord2 Baso ABS# 0.0 K/ul 09/28/2016 Free T4 Hao190 FREE T4 1.43 ng/dL 09/28/2016 Tsh Ord6 hTSH II 0.52 uIU/mL 09/28/2016 Tsh Ord6 hTSH II 0.47 uIU/mL 06/16/2016 Comp Metabolic Ffx012 NA 139 mEq/L 06/16/2016 Comp Metabolic Ooa398 K 4.3 mEq/L 06/16/2016 Comp Metabolic Fwk082 CL 105 mEq/L 06/16/2016 Comp Metabolic Dod275 CO2 30.0 mEq/L 06/16/2016 Comp Metabolic Sfg288 AN ION GAP 8 06/16/2016 Comp Metabolic Qbl030 GL UCOSE 90 mg/dL 06/16/2016 Comp Metabolic Kvx584 Cr eat 0.7 mg/dL 06/16/2016 Comp Metabolic Uxg485 eG FR 91 ml/min/1.73m2 06/16 Comp Metabolic Exw432 BUN 15 mg/dL 06/16/2016 Comp Metabolic Lcb570 B/ C Ratio 22.4 Ratio 06/16/2016 Comp Metabolic Sxd715 CA LCIUM 8.8 mg/dL 06/16/2016 Comp Metabolic Php057 AL K PHOS 79 U/L 06/16/2016 Comp Metabolic Xxa994 T(SGOT) 13 U/L 06/16/2016 Comp Metabolic Cui015 AL T(SGPT) 11 U/L 06/16/2016 Comp Metabolic Pul885 BI LI T 0.5 mg/dL 06/16/2016 Comp Metabolic Fbj540 AL BUMIN 3.9 g/dL 06/16/2016 Comp Metabolic Jej332 TP RO 6.1 g/dL 06/16/2016 Comp Metabolic Pio757 GL OB 2.2 g/dL 06/16/2016 Comp Metabolic Jeb594 A/ G Ratio 1.8 Ratio 06/16/2016 Comp Metabolic Oxf652 Os mo 278 mOsmo 06/16/2016 Lipid Ord30 [...] 31.4 % 06/16/2016 Cbc With Differential Ord2 Barnes% 8.1 % 06/16/2016 Cbc With Differential Ord2 MCH 28.9 pg 06/16/2016 Cbc With Differential Ord2 Eos% 2.8 % 06/16/2016 Cbc With Differential Ord2 MCHC 33.3 pg 06/16/2016 Cbc With Differential Ord2 Baso% 0.2 % 06/16/2016 Cbc With Differential Ord2 PLT 230 K/ul 06/16/2016 Cbc With Differential Ord2 RDW 15.0 % 06/16/2016 Cbc With Differential Ord2 Neut ABS# 3.12 K/ul 06/16/2016 Cbc With Differential Ord2 Lymph ABS# 1.70 K/ul 06/16/2016 Cbc With Differential Ord2 Barnes ABS# 0.4 K/ul 06/16/2016 Cbc With Differential Ord2 Eos ABS# 0.2 K/ul 06/16/2016 Cbc With Differential Ord2 Baso ABS# 0.0 K/ul 06/16/2016 Free T4 Nue534 FREE T4 1.42 ng/dL 06/16/2016 Free T4 Wbi679 FREE T4 1.34 ng/dL 03/04/2016 Tsh Ord6 hTSH II 0.56 uIU/mL 03/04/2016 Tsh Ord6 hTSH II 0.98 uIU/mL 01/27/2016 Free T4 Lfs569 FREE T4 1.19 ng/dL 01/27/2016 Free T4 Vag200 FREE T4 1.69 ng/dL 11/23/2015 Tsh Ord6 hTSH II 0.08 uIU/mL 11/23/2015 Lipid Ord30 CHOL 185 mg/dL 08/21/2015 Lipid Ord30 HDL 50.0 mg/dl 08/21/2015 Lipid Ord30 TRIG 88 mg/dL 08/21/2015 Lipid Ord30 LDL 117 mg/dL 08/21/2015 Lipid Ord30 C/HDL 3.7 Ratio 08/21/2015 Comp Metabolic Gyf328 NA 139 mEq/L 08/21/2015 Comp Metabolic Wxb131 K 4.3 mEq/L 08/21/2015 Comp Metabolic Vep076 CL 102 mEq/L 08/21/2015 Comp Metabolic Zck873 CO2 27.0 mEq/L 08/21/2015 Comp Metabolic Rbv278 AN ION GAP 14 08/21/2015 Comp Metabolic Vwq646 GL UCOSE 89 mg/dL 08/21/2015 Comp Metabolic Pkb286 Cr eat 0.7 mg/dL 08/21/2015 Comp Metabolic Ixa884 eG FR 85 ml/min/1.73m2 08/21 Comp Metabolic Vhi472 BUN 14 mg/dL 08/21/2015 Comp Metabolic Gzt601 B/ C Ratio 19.7 Ratio 08/21/2015 Comp Metabolic Ksp393 CA LCIUM 9.5 mg/dL 08/21/2015 Comp Metabolic Ovh567 AL K PHOS 123 U/L 08/21/2015 Comp Metabolic Oyi404 T(SGOT) 13 U/L 08/21/2015 Comp Metabolic Bsw997 AL T(SGPT) 10 U/L 08/21/2015 Comp Metabolic Kiv370 BI LI T 0.4 mg/dL 08/21/2015 Comp Metabolic Tjc032 AL BUMIN 4.1 g/dL 08/21/2015 Comp Metabolic Jnp889 TP RO 6.8 g/dL 08/21/2015 Comp Metabolic Sxl438 GL OB 2.7 g/dL 08/21/2015 Comp Metabolic Efm006 A/ G Ratio 1.5 Ratio 08/21/2015 Comp Metabolic Lhv923 Os mo 277 mOsmo 08/21/2015 Free T4 Lqr064 FREE T4 1.78 ng/dL 08/21/2015 Tsh Ord6 [...] Ord2 RDW 13.9 % 08/21/2015 Quick Strep Xrm3413 Quic k Strep Negative 07/08/2015 Tsh Ord6 hTSH II 0.04 uIU/mL 05/20/2015 Free T4 Mtc896 FREE T4 1.50 ng/dL 05/20/2015 Review of Systems System Result Effective Dates Constitutional recent illness 03/27/2017 Constitutional No anorexia [...] accomodation 09/18/2014 None Full Exam - General 1995 Ears/Nose/Throat otoscopic exam Overall: external auditory canals clear 09/18/2014 None Full Exam - General 1994 Ears/Nose/Throat otoscopic exam Overall: tympanic membranes clear 09/18/2014 None Full Exam - General 1995 Ears/Nose/Throat [...] retractions 07/31/2014 None Procedures Procedure Codes Date TRIAMCINOLONE ACET I [place] NOS CPT-4: [id number] 03/27/2017 THER/PROPH/DIAG INJ SC/IM CPT-4: 79950Upyddda 12/07/2016 TRIAMCINOLONE ACET I [place] NOS CPT-4: [id number] 12/07/2016 THER/PROPH/DIAG INJ SC/IM CPT-4: 19217Tyvotbb 11/28/2016 TRIAMCINOLONE ACET I [place] NOS CPT-4: [id number] 11/28/2016 Vital Signs Date Vital 03/27/2017 Blood Pressure 1: 142/84 Code: 8480-6 BMI: 38.7 Code: 35625-5 Heart Rate 1: 69 bpm Height: 5'6" SpO2: 97% Weight: 240 lbs 01/26/2017 Blood Pressure 1: 136/68 Code: 8480-6 Heart Rate 1: 64 bpm Height: 5'6" SpO2: 96% Weight: 12/07/2016 Blood Pressure 1: 130/72 Code: 8480-6 BMI: 39.7 Code: 08077-1 Heart Rate 1: 73 bpm Height: 5'6" SpO2: 93% Temperature: 36.8 (C ) / 98.3 (F) Weight: 246 lbs 11/28/2016 Blood Pressure 1: 138/60 Code: 8480-6 BMI: 39.7 Code: 63645-7 Heart Rate 1: 81 bpm Height: 5'6" SpO2: 97% Weight: 246 lbs 11/15/2016 Blood Pressure 1: 134/78 Code: 8480-6 BMI: 39.7 Code: 50553-6 Heart Rate 1: 75 bpm Height: 5'6" SpO2: 93% Temperature: 36.8 (C ) / 98.2 (F) Weight: 246 lbs 10/17/2016 Blood Pressure 1: 120/64 Code: 8480-6 BMI: 38.4 Code: 35955-4 Heart Rate 1: 69 bpm Height: 5'6" SpO2: 98% Temperature: 37.2 (C ) / 98.9 (F) Weight: 238 lbs 09/28/2016 Blood Pressure 1: 158/76 Code: 8480-6 BMI: 39.4 Code: 70509-1 Heart Rate 1: 71 bpm Height: 5'6" SpO2: 97% Weight: 244 lbs 06/29/2016 Blood Pressure 1: 124/60 Code: 8480-6 BMI: 38.7 Code: 37501-2 Heart Rate 1: 71 bpm Height: 5'6" SpO2: 98% Weight: 240 lbs 06/01/2016 Blood Pressure 1: 120/62 Code: 8480-6 BMI: 38.6 Code: 19773-6 Heart Rate 1: 76 bpm Height: 5'6" SpO2: 98% Weight: 239 lbs 05/11/2016 Blood Pressure 1: 140/80 Code: 8480-6 BMI: 38.1 Code: 65511-0 Heart Rate 1: 88 bpm Height: 5'6" SpO2: 97% Weight: 236 lbs 04/05/2016 Blood Pressure 1: 142/80 Code: 8480-6 BMI: 38.4 Code: 96881-2 Heart Rate 1: 96 bpm Height: 5'6" SpO2: 98% Weight: 238 lbs 04/01/2016 Blood Pressure 1: 136/88 Code: 8480-6 BMI: 39.2 Code: 05971-8 Heart Rate 1: 86 bpm Height: 5'6" SpO2: 96% Weight: 243 lbs 01/26/2016 Blood Pressure 1: 124/76 Code: 8480-6 BMI: 39.2 Code: 08143-0 Heart Rate 1: 76 bpm Height: 5'6" SpO2: 97% Weight: 243 lbs 12/21/2015 Blood Pressure 1: 120/64 Code: 8480-6 BMI: 37.0 Code: 71577-9 Heart Rate 1: 98 bpm Height: 5'6" SpO2: 97% Weight: 229 lbs 10/12/2015 Blood Pressure 1: 150/64 Code: 8480-6 BMI: 37.4 Code: 22433-7 Heart Rate 1: 70 bpm Height: 5'6" SpO2: 94% Weight: 232 lbs 08/24/2015 Blood Pressure 1: 128/74 Code: 8480-6 BMI: 36.8 Code: 44357-5 Heart Rate 1: 88 bpm Height: 5'6" SpO2: 94% Temperature: 36.8 (C ) / 98.3 (F) Weight: 228 lbs 06/01/2015 Blood Pressure 1: 134/68 Code: 8480-6 BMI: 36.0 Code: 26529-0 Heart Rate 1: 70 bpm Height: 5'6" SpO2: 98% Weight: 223 lbs 05/21/2015 Blood Pressure 1: 126/72 Code: 8480-6 BMI: 35.2 Code: 77077-8 Heart Rate 1: 63 bpm Height: 5'6" SpO2: 95% Weight: 218 lbs 5 oz 03/26/2015 Blood Pressure 1: 140/62 Code: 8480-6 BMI: 35.3 Code: 09803-7 Heart Rate 1: 68 bpm Height: 5'6" Weight: 219 lbs 03/11/2015 Blood Pressure 1: 130/80 Code: 8480-6 BMI: 34.9 Code: 93756-2 Heart Rate 1: 76 bpm Height: 5'6" Temperature: 37.1 (C ) / 98.7 (F) Weight: 216 lbs 12/11/2014 Blood Pressure 1: 134/62 Code: 8480-6 BMI: 34.2 Code: 21561-2 Heart Rate 1: 72 bpm Height: 5'6" Weight: 212 lbs 09/18/2014 Blood Pressure 1: 148/80 Code: 8480-6 BMI: 34.7 Code: 80129-9 Heart Rate 1: 68 bpm Height: 5'6" Weight: 215 lbs 07/31/2014 Blood Pressure 1: 124/72 Code: 8480-6 BMI: 36.2 Code: 34772-0 Heart Rate 1: 68 bpm Height: 5'6" Weight: 224 lbs Functional Status No Functional Status data History of Present Illness Symptom Name Status Resu lt Effective Date Notes ecchymosis Location diff usely 03/27/2017 None ecchymosis [...] Severity mi ld 09/28/2016 None hypothyroid [employer] jamee 09/28/2016 None hypothyroid Onset and Resolution [...] Severity mi ld 06/01/2016 None hypothyroid [employer] jamee 06/01/2016 None hypothyroid Onset and Resolution [...] and Resolution resolved 04/05/2016 None hypothyroid [employer] jamee 04/05/2016 None hypothyroid Onset and Resolution [...] a ssociated factors 10/12/2015 None hypothyroid [employer] jamee 08/24/2015 None hypothyroid Onset and Resolution [...] Severity mod erate 06/01/2015 None hypothyroid [employer] jamee 05/21/2015 None hypothyroid Onset of Symptom [...] Findings brittle nails 03/11/2015 None hypothyroid [employer] jamee 03/11/2015 None hypothyroid Quality stab le [...] Encounters Encounter Performer Loca tion Codes Date ([id number]) 89664 EST. P ATIENT, LEVEL IV Diagnosis: Contusion of left wrist, initial encounter[ICD10: S60.212A] Diagnosis: Hypothyroidism, unspecified[ICD10: E03.9] Diagnosis: Mild persistent asthma with (acute) exacerbation[ICD10: J45.31] Diagnosis: Low back pain[ICD10: M54.5] [facility] CPT- 4: 12353 03/27/2017 ([id number]) 58473 EST. P ATIENT, LEVEL IV Diagnosis: Essential (primary) hypertension[ICD10: I10] Diagnosis: Atrophy of thyroid (acquired)[ICD10: E03.4] Diagnosis: Low back pain[ICD10: M54.5] [facility] CPT-4: 38697 01/26/2017 [id number] EST. PATIENT, LEVEL III Diagnosis: Other allergic rhinitis[ICD10: J30.89] Diagnosis: Mild persistent asthma with (acute) exacerbation[ICD10: J45.31] Mishel Finn MD, [facility] CPT-4: 05693 12/07/2016 45224 EST. PATIENT, LEVEL III Diagnosis: Mild persistent asthma with (acute) exacerbation[ICD10: J45.31] Mishel Finn MD [facility] CPT-4: 49164 11/28/2016 08059 EST. PATIENT, LEVEL III Diagnosis: Mild persistent asthma with (acute) exacerbation[ICD10: J45.31] Diagnosis: Acute bronchitis due to other specified organisms[ICD10: J20.8] Mishel Finn MD, [facility] CPT-4: 38759 11/15/2016 15248 EST. PATIENT, LEVEL IV Diagnosis: Other acute sinusitis[ICD10: J01.80] Diagnosis: Other allergic rhinitis[ICD10: J30.89] Diagnosis: Mild persistent asthma with (acute) exacerbation[ICD10: J45.31] Mishel Finn MD, [facility] CPT-4: 66290 10/17/2016 ([id number]) 23516 EST. P ATIENT, LEVEL IV Diagnosis: Essential (primary) hypertension[ICD10: I10] Diagnosis: Low back pain[ICD10: M54.5] Damari Finn MD, [facility] CPT-4: 40390 09/28/2016 08275 EST. PATIENT, LEVEL III Diagnosis: Tinea barbae and tinea capitis[ICD10: B35.0] Diagnosis: Other specified hypothyroidism[ICD10: E03.8] Mishel Finn MD, [facility] CPT-4: 41456 06/29/2016 ([id number]) 01014 EST. P ATIENT, LEVEL IV Diagnosis: Essential (primary) hypertension[ICD10: I10] Diagnosis: Atrophy of thyroid (acquired)[ICD10: E03.4] Diagnosis: Rash and other nonspecific skin eruption[ICD10: R21] Damari Finn MD, [facility] CPT-4: 04517 06/01/2016 ([id number]) 69821 EST. P ATIENT, LEVEL III Diagnosis: Cellulitis of groin[ICD10: L03.314] Damari Finn MD, [facility] CPT- 4: 71465 05/11/2016 ([id number]) 78293 EST. P ATIENT, LEVEL IV Diagnosis: Hypothyroidism, unspecified[ICD10: E03.9] Diagnosis: Candidiasis of vulva and vagina[ICD10: B37.3] Diagnosis: Essential (primary) hypertension[ICD10: I10] Diagnosis: Low back pain[ICD10: M54.5] Lynn Finn MD, [facility] CPT- 4: 55305 04/05/2016 49058 EST. PATIENT, LEVEL III Diagnosis: Other acute sinusitis[ICD10: J01.80] Diagnosis: Rash and other nonspecific skin eruption[ICD10: R21] Mishel Finn MD, [facility] CPT-4: 91083 04/01/2016 ([id number]) 78769 EST. P ATIENT, LEVEL IV Diagnosis: Essential (primary) hypertension[ICD10: I10] Diagnosis: Hypothyroidism, unspecified[ICD10: E03.9] Diagnosis: Low back pain[ICD10: M54.5] Diagnosis: Other obesity due to excess calories[ICD10: E66.09] Lynn Finn MD, [facility] CPT-4: 88817 01/26/2016 76121 EST. PATIENT, LEVEL IV Diagnosis: Essential (primary) hypertension[ICD10: I10] Diagnosis: Cutaneous abscess of face[ICD10: L02.01] Mishel Finn MD, [facility] CPT-4: 91530 12/21/2015 ([id number]) 70843 EST. P ATIENT, LEVEL III Diagnosis: Cutaneous abscess of groin[ICD10: L02.214] Diagnosis: Hypothyroidism, unspecified[ICD10: E03.9] Lynn Finn MD, [facility] CPT-4: 59758 10/12/2015 ([id number]) 65683 EST. P ATIENT, LEVEL III Diagnosis: Essential (primary) hypertension[ICD10: I10] Diagnosis: Hypothyroidism, unspecified[ICD10: E03.9] Diagnosis: Allergic rhinitis, unspecified[ICD10: J30.9] Lynn Finn MD, [facility] CPT-4: 91131 08/24/2015 ([id number]) 03549 EST. P ATIENT, LEVEL III Diagnosis: Skin infection[ICD9: 686.9] [facility] CPT-4: 40495 06/01/2015 ([id number]) 94947 EST. P ATIENT, LEVEL III Diagnosis: Hypothyroidism[ICD9: 244.9] Diagnosis: ESSENTIAL HYPERTENSION[ICD9: 401.9] [facility] CPT- 4: 46038 05/21/2015 ([id number]) 39177 EST. P ATIENT, LEVEL III Diagnosis: Hypothyroidism[ICD9: 244.9] Diagnosis: Fingernail abnormalities[ICD9: 703.8] [facility] CPT-4: 54385 03/26/2015 ([id number]) 39790 EST. P ATIENT, LEVEL II Diagnosis: Hypothyroidism[ICD9: 244.9] [facility] CPT-4: 80709 03/11/2015 ([id number]) 52517 EST. P ATIENT, LEVEL IV Diagnosis: ESSENTIAL HYPERTENSION[ICD9: 401.9] Diagnosis: Low back pain[ICD9: 724.2] Diagnosis: Hypothyroidism[ICD9: 244.9] [facility] CPT-4: 80450 12/11/2014 ([id number]) 49539 EST. P ATIENT, LEVEL IV Diagnosis: Hidradenitis suppurativa[ICD9: 705.83] Diagnosis: ESSENTIAL HYPERTENSION[ICD9: 401.9] Diagnosis: Low back pain[ICD9: 724.2] Diagnosis: Lumbar spinal stenosis[ICD9: 724.02] Diagnosis: HYPOTHYROIDISM[ICD9: 244.9] [facility] CPT-4: 80485 09/18/2014 Office outpatient ne w 30 minutes Diagnosis: ESSENTIAL HYPERTENSION[ICD9: 401.9] Diagnosis: Hypothyroidism[ICD9: 244.9] Diagnosis: Low back pain[ICD9: 724.2] [facility] CPT- 4: 54401 07/31/2014 Plan of Care Planned Activity Notes C odes Status Date Visit Plan: Asthma Exacerbation - Asthma is a chronic [...] symptoms are beyond acute control with rescue medications.We have reviewed chronic treatment strategy, symptom control, and plans for acute exacerbations. No changes today to the current treatment plan as the patient is stable, monitor for acute santos es.Kenalog injection today in the office Bruise-get labs from urgent care Hypothyroidism - pt with chronic hypothyroidism, continue with current medication, will monitor pt to signs or symptoms of lack of adequate supplementation. Pt is to continue with current dose of medication unless directed otherwise. Check labs at regular intervals wither q 3 months or q 6 months based on previous levels of control.Low back tmyk-uwqjntv-aurcwg tramadol for prn use 03/27/2017 Appointment: Lynn Arenas WPtel: [phone] [phone] (30 min) Complex 03/27/2017 Patient Education: Patient Medication Summary Completed 03/27/2017 Visit Plan: Hypertension - well controll ed - continue with current medications, continue with no added salt diet. Pt has been encouraged to exercise daily.The pt has been advised to call the office if there are any acute concerns about change in blood pressure readings at home.Hypothyroidism - pt with chronic hypothyroidism, continue with current medication, will monitor pt to signs or symptoms of lack of adequate supplementation. Pt is to continue with current dose of medication unless directed otherwise. Check labs at regular intervals wither q 3 months or q 6 months based on previous levels of control.Low back pain- the patient was instructed in appropriate posture, need for weight loss to alleviate abdominal obesity that is worsening the patient's back pain.. The pt is to use prn antiinflammatories to manage acute pain. The patient is to call the office if the pain is worsening or does not improve. 01/26/2017 Appointment: Damari Finn WPtel: [phone] [facility] [place] (15 min) Moderate 01/26/2017 Patient Education: Patient Medication Summary Completed 01/26/2017 Visit Plan: Allergies - chronic - recomm ended pt to use allergy medication as prescribed. Pt has been counseled as to the appropriate use of the medication. Pt to call if allergy symptoms are not controlled with the medication.If using nasal spray, instructions as follows: Nasal spray- use twice daily, one spray per nostril twice daily, after 30 minutes, rinse out nose with saline spray.. Use opposite hand per nostril to spray in the nasal steroid allergy spray.Asthma - chronic problem for this patient. We have reviewed chronic treatment strategy, symptom control, and plans for acute exacerbations. No changes today to the current treatment plan as the patient is stable, monitor for acute changesThrush - use RX as prescribed - notify clinic if symptoms do not improve, if they worsen, or with any questions or concerns. 12/07/2016 Appointment: [facility] Balderr[facility]el[phone] [facility] [place] (15 min) Moderate 12/07/2016 Patient Education: Patient Medication Summary Completed 12/07/2016 Patient Education: Obesity Completed 12/07/2016 Appointment: Nurse Visit 11/29/2016 Visit Plan: Asthma Exacerbation - Asthma is a chronic [...] symptoms are beyond acute control with rescue medications.We have reviewed chronic treatment strategy, symptom control, and plans for acute exacerbations. No changes today to the current treatment plan as the patient is stable, monitor for acute santos es.Breathing treatments as directed for dyspnea/persistent wheezing/asthma symptoms. 11/28/2016 Visit Plan: Asthma Exacerbation - Asthma is a chronic [...] symptoms are beyond acute control with rescue medications.We have reviewed chronic treatment strategy, symptom control, and plans for acute exacerbations. No changes today to the current treatment plan as the patient is stable, monitor for acute changes. 11/28/2016 Appointment: Mishel Balderrama [facility]Ptel: [phone] [facility] (15 min) Moderate 11/28/2016 Patient Education: Patient Medication Summary Completed 11/28/2016 Appointment: Mishel Balderrama WPtel: [phone] [facility] (15 min) Moderate 11/24/2016 Visit Plan: Bronchitis - acute case of b ronchitis identified. Pt has been given antibiotics, pt has been instructed to call if symptoms are not improved, or if symptoms acutely worsen.Asthma Exacerbation - Asthma is a chronic problem [...] symptoms are beyond acute control with rescue medications.We have reviewed chronic treatment strategy, symptom control, and plans for acute exacerbations. No changes today to the current treatment plan as the patient is stable, monitor for acute changes. 11/15/2016 Appointment: Mishel Balderrama WPtel: [phone] [facility] (30 min) Complex 11/15/2016 Patient Education: Patient Medication Summary Completed 11/15/2016 Patient Education: Obesity Completed 11/15/2016 Visit Plan: Sinusitis - Pt has acute inf ection - pain in face, maxillary region, Pt informed to use decongestant, RX given to patient, sinus rinses also recommended. Call if symptoms do not show improvement.Allergies - chronic - recommended pt to use allergy medication as prescribed. Pt has been counseled as to the appropriate use of the medication. Pt to call if allergy symptoms are not controlled with the medication.If using nasal spray, instructions as follows: Nasal spray- use twice daily, one spray per nostril twice daily, after 30 minutes, rinse out nose with saline spray.. Use opposite hand per nostril to spray in the nasal steroid allergy spray.Asthma Exacerbation - Asthma is a chronic problem for this patient, however, the pt is experiencing an acute exacerbation of the chronic Asthma symptoms. Pt is to receive appropriate treatment as an out patient, but the pt is aware that if symptoms worsen or do not improve, to call [facility] for instructions, or go to the EMERGENCY ROOM if the s ymptoms are beyond acute control with rescue medications.We have reviewed chronic treatment strategy, symptom control, and plans for acute exacerbations. No changes today to the current treatment plan as the patient is stable, monitor for acute changes. 10/17/2016 Appointment: Mis[facility] Balderrama [facility]el: [phone] [facility] [place] [place] (30 min) Complex 10/17/2016 Patient Education: Patient Medication Summary Completed 10/17/2016 Patient Education: Obesity Completed 10/17/2016 Visit Plan: Hypertension - well controll ed - continue with current medications, continue with no added salt diet. Pt has been encouraged to exercise daily.The pt has been advised to call the office if there are any acute concerns about change in blood pressure readings at home.discussed labs - no change in medications.Back pain - prn tylenol 09/28/2016 Appointment: Damari Finn WPtel: [phone] [facility] (15 min) Moderate 09/28/2016 Patient Education: Patient Medication Summary Completed 09/28/2016 Patient Education: Obesity Completed 09/28/2016 Patient Education: Hypertension Completed 09/28/2016 Patient Education: Patient Medication Summary Completed 09/27/2016 Visit Plan: Tinea of the scalp - will se nd RX - pt is to notify clinic [...] control. 06/29/2016 Appointment: Lynn Arenas WPtel: [phone] [facility] [phone] [place] (15 min) Moderate 06/29/2016 Patient Education: Patient Medication Summary Completed 06/29/2016 Patient Education: Obesity Completed 06/29/2016 Visit Plan: Hypertension - well controll ed - continue with current medications, continue with no added salt diet. Pt has been encouraged to exercise daily.The pt has been advised to call the office if there are any acute concerns about change in blood pressure readings at home.Hypothyroidism - pt with chronic hypothyroidism, continue with current medication, will monitor pt to signs or symptoms of lack of adequate supplementation. Pt is to continue with current dose of medication unless directed otherwise. Check labs at regular intervals wither q 3 months or q 6 months based on previous levels of control.Rahs - rx for fluconazole 06/01/2016 Appointment: Damari Finn WPtel: [phone] [facility] (15 min) Moderate 06/01/2016 Patient Education: Patient Medication Summary Completed 06/01/2016 Patient Education: Obesity Completed 06/01/2016 Visit Plan: Cellulitis - continue with o ral antibiotics as previously directed, return to clinic as previously directed, call for acute change in symptoms, worsening redness, warmth, discharge. 05/11/2016 App[facility]ment: [phone] ([facility] min) Moderate 05/11/2016 Patient Education: Patient Medication Summary Completed 05/11/2016 Patient Education: Obesity Completed 05/11/2016 Visit Plan: Hypertension - well controll ed - continue with current medications, continue with no added salt diet. Pt has been encouraged to exercise daily.The pt has been advised to call the office if there are any acute concerns about change in blood pressure readings at home.Hypothyroidism - pt with chronic hypothyroidism, continue with current medication, will monitor pt to signs or symptoms of lack of adequate supplementation. Pt is to continue with current dose of medication unless directed otherwise. Check labs at regular intervals wither q 3 months or q 6 months based on previous levels of control.Chronic Pain Syndrome - pt has chronic pain - has been maintained on current medications, has not sought out other medications, only uses PRN pain medications as directed, and understands the consequences of over-medication.Yeast infection-RX for diflucan 04/05/2016 Patient Education: Patient Medication Summary Completed 04/05/2016 Patient Education: Obesity Completed 04/05/2016 Patient Education: Hypertension Completed 04/05/2016 Visit Plan: Sinusitis - Pt has acute inf ection - pain in face, maxillary region, Pt informed to use decongestant, RX given to patient, sinus rinses also recommended. Call if symptoms do not show improvement.Dermatitis around lips - will send RX - pt is to notify clinic if symptoms do not improve, or with any concerns. 04/01/2016 Appointment: Lynn Arenas WPtel: [phone] (30 min) Complex 04/01/2016 Patient Education: Patient Medication Summary Completed 04/01/2016 Patient Education: Obesity Completed 04/01/2016 Appointment: Lynn Arenas WPtel: [phone] (30 min) Complex 03/29/2016 Visit Plan: Hypertension - well controll ed - continue with current medications, continue with no added salt diet. Pt has been encouraged to exercise daily.The pt has been advised to call the office if there are any acute concerns about change in blood pressure readings at home.Hypothyroidism-abnormal weight gain- check labs today - pt with chronic hypothyroidism, continue with current medication, will monitor pt to signs or symptoms of lack of adequate supplementation. Pt is to continue with current dose of medication unless directed otherwise. Check labs at regular intervals wither q 3 months or q 6 months based on previous levels of control.Low back pain-refill tramadol Rcohx-rkykhsiuox-kaphcaek resolved 01/26/2016 Appointment: Lynn Arenas WPtel: [phone] (30 min) Complex 01/26/2016 Patient Education: Patient Medication Summary Completed 01/26/2016 Patient Education: Obesity Completed 01/26/2016 Care Plan: BMI Above normal followup RADHA F-MGMT EDUC & TRAIN 1 PT Pending 01/26/2016 Care Plan: Referral Order SNOMED-CT : [id number] Pending 01/07/2016 Appointment: Lynn Arenas WPtel: [phone] [place] (15 min) Moderate 12/24/2015 Visit Plan: Hypertension - well controll ed - continue with current medications, continue with no added salt diet. Pt has been encouraged to exercise daily.The pt has been advised to call the office if there are any acute concerns about change in blood pressure readings at home.Abscess/Cellulitis - The patient was instructed in appropriate wound care. The patient was instructed to use the antibiotic ointment as per RX. The patient is to call for any change in symptoms, increase in size of the lesion, increase in pain.Pt states that she also occasionally gets sores on her labias, requests a referral to Dr. Daugherty. Will refer pt. 12/21/2015 Patient Education: Patient Medication Summary Completed 12/21/2015 Care Plan: Miracle LORENZO RTS Pending 12/21/2015 Visit Plan: cellulitis/abscess of groin- use bactroban ointment as needed -keep groin clean and dry-treat nares with bactroban ointment twice daily-call for acute s/s of infection Hypothyroidism-check dose at home-should be 175mcg daily and repeat labs in 3 months 10/12/2015 Patient Education: Patient Medication Summary Completed 10/12/2015 Appointment: (30 min) Complex 10/09/2015 Visit Plan: Hypertension - well controll ed - continue with current medications, continue with no added salt diet. Pt has been encouraged to exercise daily.The pt has been advised to call the office if there are any acute concerns about change in blood pressure readings at home.Hypothyroidism - pt with chronic hypothyroidism, continue with current medication, will monitor pt to signs or symptoms of lack of adequate supplementation. Pt is to continue with current dose of medication unless directed otherwise. Check labs at regular intervals wither q 3 months or q 6 months based on previous levels of control.Allergies - chronic - recommended pt to use allergy medication as prescribed. Pt has been counseled as to the appropriate use of the medication. Pt to call if allergy symptoms are not controlled with the medication.If using nasal spray, instructions as follows: Nasal spray- use twice daily, one spray per nostril twice daily, after 30 minutes, rinse out nose with saline spray.. Use opposite hand per nostril to spray in the nasal steroid allergy spray.Coricidin HBP 08/24/2015 Appointment: (30 min) Complex 08/24/2015 Patient Education: Patient Medication Summary Completed 08/24/2015 Patient Education: Hypertension Completed 08/24/2015 Appointment: (10 min) Simple 07/08/2015 Visit Plan: Skin infection - recommended treatment with oral antibiotic and topical antibiotic.Pt to call if nor improving. 06/01/2015 [phone] (15 min) Moderate 06/01/2015 Patient Education: Patient Medication Summary Completed 06/01/2015 Visit Plan: Hypertension - well controll ed - continue with current medications, continue with no added salt diet. Pt has been encouraged to exercise daily.The pt has been advised to call the office if there are any acute concerns about change in blood pressure readings at home.Hypothyroidism - pt with chronic hypothyroidism, continue with current medication, will monitor pt to signs or symptoms of lack of adequate supplementation. Pt is to continue with current dose of medication unless directed otherwise. Check labs at regular intervals wither q 3 months or q 6 months based on previous levels of control. 2014 Appointment: (30 min) Complex 05/21/2015 Patient Education: Patient Medication Summary Completed 05/21/2015 Patient Education: Hypertension Completed 05/21/2015 Appointment: (30 min) Complex 05/12/2015 Patient Education: Patient Medication Summary Completed 05/08/2015 Visit Plan: Brittle fingernails-erythema of fingernails-nail sample clipped and sent for culture-suspect changes are due to thyroid illness-repeat thyroid labs in 6-8 weeks 03/26/2015 Appointment: (15 min) Moderate 03/26/2015 Patient Education: Patient Medication Summary Completed 03/26/2015 Care Plan: C FUNGUS fingernail Pending 03/26/2015 Visit Plan: 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 Finn, will increase Synthroid to 200 mcg per day and recheck labs in 3 months. Pt is to monitor fingernail redness. CBC, CMP checked today. 03/11/2015 Appointment: (15 min) Moderate 03/11/2015 Patient Education: Patient Medication Summary Completed 03/11/2015 Visit Plan: Hypertension - well controll ed - continue with current medications, continue with no added salt diet. Pt has been encouraged to exercise daily.The pt has been advised to call the office if there are any acute concerns about change in blood pressure readings at home.Hypothyroidism - pt with chronic hypothyroidism, continue with current medication, will monitor pt to signs or symptoms of lack of adequate supplementation. Pt is to continue with current dose of medication unless directed otherwise. Check labs at regular intervals wither q 3 months or q 6 months based on previous levels of control.Chronic back pain - refill tramadol 12/11/2014 Appointment: Damari Finn WPtel: [facility] [facility] follow up 12/11/2014 Patient Education: Patient Medication Summary Completed 12/11/2014 Patient Education: Hypertension Completed 12/11/2014 Appointment: Damari Finn WPtel: [facility] [facility] follow up 11/27/2014 Visit Plan: Hidradenitis Suppurativa - p t with outbreak on bottom - almost healed, needs a little more antibiotic to heal. Once healed, pt has a PRN antibiotic available to use should she start with another acute outbreak that is not responding to appropriate antibacterial body wash and stringent use.Hypothyroidism - pt with chronic hypothyroidism, continue with current medication, will monitor pt to signs or symptoms of lack of adequate supplementation. Pt is to continue with current dose of medication unless directed otherwise. Check labs at regular intervals wither q 3 months or q 6 months based on previous levels of control. Medication adjusted in the last few days.Hypertension - well controlled - continue with current medications, continue with no added salt diet. Pt has been encouraged to exercise daily.The pt has been advised to call the office if there are any acute concerns about change in blood pressure readings at home.Back pain - with L4/L5 spinal stenosis on 04/2014 MRI - need repeat MRI - pt to see back surgeon - I have advised her to get her back MRI done at [facility] in [place] as that is where her specialist will be once we get her an appt with one of the local Neurosurgeons. 09/18/2014 Appointment: Damari Finn WPtel: [facility] Follow up 09/18/2014 Patient Education: Patient Medication Summary Completed 09/18/2014 Patient Education: Hypertension Completed 09/18/2014 Visit Plan: Hypertension - well controll ed - continue with current medications, continue with no added salt diet. Pt has been encouraged to exercise daily.The pt has been advised to call the office if there are any acute concerns about change in blood pressure readings at home.Hypothyroidism - pt with chronic hypothyroidism, continue with current medication, will monitor pt to signs or symptoms of lack of adequate supplementation. Pt is to continue with current dose of medication unless directed otherwise. Check labs at regular intervals wither q 3 months or q 6 months based on previous levels of control.Low back pain-bulging disc L4/L5-follow up with Dr Lincoln as scheduled 07/31/2014 Appointment: Lynn Aren[facility]Ptel[phone] [place] New Patient 07/31/2014 Patient Education: Patient [...] . 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 Low back [id number]-ajtdtw tramadol for prn use Check thyroid on Feb. Will refill blood [...] . 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 Declined Procedure: (43104) FLU VAC NO PRSV 4 JUSTYNA 3 YRS+; Declined Reason: refused Physical therapy at [facility] [place] . Hypertension - well controlled - oleg [...] L4/L5-follow up with Dr Lincoln as scheduled bactroban ointment t o sore twice daily [...] levels of control. Low back pain-refill tramadol Dbvsc-vwdeislyag-vzcljgpp resolved . Hypertension - wel l controlled - continue with current medications, continue with no added salt diet. Pt has been encouraged to exercise daily. The pt has been advised to call the office if there are any acute concerns about change in blood pressure readings at home. discussed labs - no change in medications. Back pain - prn tylenol . Sinusitis - Pt has acute infection [...] to get her back MRI done at [facility] in [place] as that is where her specialist [...]
--- OUTSIDE RECORDS SUMMARY | 2020-02-20 19:13 | XMS REPORT | CCD ---
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 Unknown Has never used illegal drugs 014 Allergies, Adverse Reactions, Alerts Substance Reaction Codes Entered Date Inactivated Date Status bactrim hives, rash RxNorm: 338951 04/05/2016 No Inactive Date Active Past Medical [...] Fill Instructions tramadol 50 mg tablet RxNorm: 646475 1 Tablet(s) PO Q4 PRN as needed for pain 03/27/2017 04/15/2017 Ac tive [SAVINGS FOR UNINSURED PATIENTS -- BIN:0 53724, PCN: ASPROD1, Group: [id number], ID# [id number], Process claim through [employer], for questions: . THIS IS NOT INSURANCE.] Kenalog 40 mg/mL madhavi pension for injection RxNorm: 2777368 1 Milliliter(s) Inj 03/27/2017 03/27/2017 In active tramadol 50 mg tablet RxNorm: 593446 1 Tablet(s) PO Q4H as needed for pain 03/09/2017 03/26/2017 In active [SAVINGS FOR UNINSURED PATIENTS -- BIN:0 36565, PCN: ASPROD1, Group: [id number], ID# [id number], Process claim through [employer], for questions: . THIS IS NOT INSURANCE.] lisinopril 20 mg-hyd rochlorothiazide 25 mg tablet RxNorm: 194013 TAKE ONE TABLET BY MOUTH DAILY 01/29/2017 06/27/2017 Active lorazepam 1 mg tablet RxNorm: 671115 Tablet(s) TAKE TWO TABLETS BY MOUTH AT B EDTIME NEEDED FOR INSOMNIA AND ONE TABLET DAILY NEEDED ANXIETY 01/05/2017 04/04/2017 Active tramadol 50 mg tablet RxNorm: 347976 1 Tablet(s) PO Q4H as needed for pain 12/07/2016 01/13/2017 In active [SAVINGS FOR UNINSURED PATIENTS -- BIN:0 50540, PCN: ASPROD1, Group: LINDY, ID# [id number], Process claim through [employer], for questions: . THIS IS NOT INSURANCE.] Kenalog 40 mg/mL madhavi pension for injection RxNorm: 4881362 Milliliter(s) Inj 12/07/2016 12/07/2016 In active nystatin 100,000 uni t/mL oral suspension RxNorm: 112050 4 Milliliter(s) PO QI D 12/07/2016 12/11/2016 In active Francia-D 12 Hour 60 mg-120 mg tablet,extended release RxNorm: 802910 1 Tablet(s) PO BID 12/07/2016 01/11/2017 Inactive lorazepam 1 mg tablet RxNorm: 962587 Tablet(s) TAKE TWO TABLETS BY MOUTH AT B EDTIME AND ONE TABLET DAILY NEEDED 12/07/2016 01/04/2017 Inactive (Response to an electronic controlled substance refill request - RxReferenceNumber: [id number]) albuterol sulfate 2. 5 mg/3 mL (0.083 %) solution for nebulization RxNorm: 050301 3 Milliliter(s) INH TID 11/29/2016 11/28/2016 Inactive prednisone 10 mg tablet RxNorm: 001474 Tablet(s) PO UD 11/29/2016 12/05/2016 Inactive 6,5,4,3,2,1 doxycycline hyclate 100 mg tablet RxNorm: 072632 1 Tablet(s) PO BID 11/29/2016 12/04/2016 Inactive albuterol sulfate 2. 5 mg/3 mL (0.083 %) solution for nebulization RxNorm: 663934 3 Milliliter(s) INH TID 11/29/2016 12/03/2016 Inactive Kenalog 40 mg/mL madhavi pension for injection RxNorm: 7344378 Milliliter(s) Inj 11/28/2016 11/28/2016 In active Advair Diskus 100 mc g-50 mcg/dose powder for inhalation RxNorm: 1901401 1 Puff(s) INH BID 11/15/2016 03/14/2017 Inactive ProAir HFA 90 mcg/ac tuation aerosol inhaler RxNorm: 281602 INHALE 1 TO 2 PUFFS F OUR TIMES A DAY NEEDED FOR ASTHMA 11/15/2016 04/13/2017 Active tramadol 50 mg tablet RxNorm: 259473 1 Tablet(s) PO Q4H as needed for pain 11/15/2016 12/06/2016 In active [SAVINGS FOR UNINSURED PATIENTS -- BIN:0 05213, PCN: ASPROD1, Group: [id number], ID# [id number], Process claim through [employer], for questions: . THIS IS NOT INSURANCE.] prednisone 20 mg tablet RxNorm: 101934 2 Tablet(s) PO daily 11/15/2016 11/19/2016 Inactive Zithromax Z-Linus 250 mg tablet RxNorm: 840965 1 Tablet(s) PO UD 11/15/2016 11/27/2016 Inactive Zyrtec 10 mg tablet RxNorm: 3257346 1 Tablet(s) PO daily 10/17/2016 11/15/2016 Inactive Keflex 500 mg capsule RxNorm: 939096 1 Capsule(s) PO TID 10/17/2016 10/23/2016 Inactive prednisone 10 mg tablet RxNorm: 890938 Tablet(s) PO UD 10/17/2016 11/28/2016 Inactive 6,5,4,3,2,1 tramadol 50 mg tablet RxNorm: 266097 1 Tablet(s) PO Q4H as needed for pain 09/28/2016 11/06/2016 In active [SAVINGS FOR UNINSURED PATIENTS -- BIN:0 73416, PCN: ASPROD1, Group: [id number], ID# [id number], Process claim through [employer], for questions: . THIS IS NOT INSURANCE.] ProAir HFA 90 mcg/ac tuation aerosol inhaler RxNorm: 527816 INHALE 1 TO 2 PUFFS F OUR TIMES A DAY NEEDED FOR ASTHMA 09/15/2016 11/14/2016 Inactive doxycycline hyclate 100 mg tablet RxNorm: 409873 1 Tablet(s) PO BID 09/15/2016 09/24/2016 Inactive doxycycline hyclate 100 mg tablet RxNorm: 314805 1 Tablet(s) PO BID 07/29/2016 08/07/2016 Inactive tramadol 50 mg tablet RxNorm: 817733 1 Tablet(s) PO Q4H as needed for pain 07/29/2016 09/06/2016 In active [SAVINGS FOR UNINSURED PATIENTS -- BIN:0 09916, PCN: ASPROD1, Group: [id number], ID# [id number], Process claim through [employer], for questions: . THIS IS NOT INSURANCE.] lorazepam 1 mg tablet RxNorm: 464166 Tablet(s) TAKE TWO TABLETS BY MOUTH AT B EDTIME AND ONE TABLET DAILY NEEDED 07/29/2016 10/26/2016 Inactive (Response to an electronic controlled substance refill request - RxReferenceNumber: [id number]) levothyroxine 137 mc g tablet RxNorm: 413228 1 Tablet(s) PO daily 06/29/2016 12/25/2016 Inactive levothyroxine 125 mc g tablet RxNorm: 228526 1 Tablet(s) PO daily 06/29/2016 06/29/2016 Inactive ketoconazole 2 % sha mpoo RxNorm: 234094 1 Application TOP BID 06/29/2016 07/03/2016 Inactive Bactroban 2 % topica l ointment RxNorm: 844434 APPLY TO AFFECTED ARE A(S) TWO TIMES A DAY 06/16/2016 07/15/2016 Inactive tramadol 50 mg tablet RxNorm: 787750 1 Tablet(s) PO Q4H as needed for pain 06/16/2016 07/25/2016 In active [SAVINGS FOR UNINSURED PATIENTS -- BIN:0 72061, PCN: ASPROD1, Group: AME08, ID# [id number], Process claim through [employer], for questions: . THIS IS NOT INSURANCE.] fluconazole 150 mg t ablet RxNorm: 124785 1 Tablet(s) PO daily 06/01/2016 06/05/2016 Inactive gentamicin 0.1 % top ical ointment RxNorm: 754296 1 Application TOP QID 05/12/2016 05/25/2016 In active metronidazole 500 mg tablet RxNorm: 237579 1 Tablet(s) PO TID 05/11/2016 05/24/2016 Inactive gentamicin 0.1 % top ical ointment RxNorm: 046935 1 Application TOP QID 05/11/2016 05/11/2016 In active doxycycline hyclate 100 mg tablet RxNorm: 026485 1 Tablet(s) PO BID 05/11/2016 05/24/2016 Inactive Diflucan 150 mg tablet RxNorm: 755222 1 Tablet(s) PO daily x5 days then 1 x we ekly x 4 weeks. 05/02/2016 05/11/2016 Inactive lorazepam 1 mg tablet RxNorm: 227001 Tablet(s) TAKE TWO TABLETS BY MOUTH AT B EDTIME AND ONE TABLET DAILY NEEDED 05/02/2016 07/28/2016 Inactive (Response to an electronic controlled substance refill request - RxReferenceNumber: [id number]) Diflucan 150 mg tablet RxNorm: 106318 1 Tablet(s) PO every other day 04/19/2016 04/28/2016 In active Diflucan 150 mg tablet RxNorm: 604089 1 Tablet(s) PO every other day 04/19/2016 04/18/2016 In active Diflucan 150 mg tablet RxNorm: 475617 1 Tablet(s) PO daily 04/05/2016 04/11/2016 Inactive mupirocin 2 % topica l ointment RxNorm: 450836 1 Application TOP BID 04/05/2016 05/04/2016 Inactive tramadol 50 mg tablet RxNorm: 282212 1 Tablet(s) PO Q4H as needed for pain 04/05/2016 05/14/2016 In active [SAVINGS FOR UNINSURED PATIENTS -- BIN:0 71400, PCN: ASPROD1, Group: [id number], ID# [id number], Process claim through [employer], for questions: . THIS IS NOT INSURANCE.] prednisone 10 mg tablet RxNorm: 882167 Tablet(s) PO UD 04/01/2016 09/26/2016 Inactive 6,5,4,3,2,1 levothyroxine 137 mc g tablet RxNorm: 591866 1 Tablet(s) PO daily 03/21/2016 03/20/2016 Inactive levothyroxine 137 mc g tablet RxNorm: 334167 1 Tablet(s) PO daily 03/21/2016 06/28/2016 Inactive Advair Diskus 100 mc g-50 mcg/dose powder for inhalation RxNorm: 9416921 1 Puff(s) INH BID 01/26/2016 05/24/2016 Inactive tramadol 50 mg tablet RxNorm: 391560 1 Tablet(s) PO Q4H as needed for pain 01/26/2016 03/05/2016 In active [SAVINGS FOR UNINSURED PATIENTS -- BIN:0 03621, PCN: ASPROD1, Group: AME08, ID# [id number], Process claim through [employer], for questions: . THIS IS NOT INSURANCE.] Bactroban 2 % topica l ointment RxNorm: 563206 APPLY TO AFFECTED ARE A(S) TWO TIMES A DAY 12/22/2015 12/31/2015 Inactive Bactrim DS 800 mg-16 0 mg tablet RxNorm: 119296 TAKE ONE TABLET BY [facility] TWICE A DAY 12/22/2015 04/18/2016 In active Bactrim DS 800 mg-16 0 mg tablet RxNorm: 516506 1 Tablet(s) PO BID 12/21/2015 12/30/2015 Inactive lisinopril 20 mg-hyd rochlorothiazide 25 mg tablet RxNorm: 897967 1 Tablet(s) PO daily 12/21/2015 06/17/2016 Inactive [SAVINGS FOR UNINSURED PATIENTS -- BIN:0 90400, PCN: ASPROD1, Group: AME08, ID# [id number], Process claim through [employer], for questions: . THIS IS NOT INSURANCE.] tramadol 50 mg tablet RxNorm: 277329 1 Tablet(s) PO Q4H as needed for pain 12/03/2015 01/11/2016 In active [SAVINGS FOR UNINSURED PATIENTS -- BIN:0 68656, PCN: ASPROD1, Group: AME08, ID# [id number], Process claim through [employer], for questions: . THIS IS NOT INSURANCE.] lorazepam 1 mg tablet RxNorm: 489629 Tablet(s) TAKE TWO TABLETS BY MOUTH AT B EDTIME AND ONE TABLET DAILY NEEDED 11/26/2015 02/21/2016 Inactive (Response to an electronic controlled substance refill request - RxReferenceNumber: [id number]) Bactrim DS 800 mg-16 0 mg tablet RxNorm: 924521 1 Tablet(s) PO BID 11/25/2015 12/04/2015 Inactive levothyroxine 150 mc g tablet RxNorm: 487228 1 Tablet(s) PO daily 11/25/2015 03/20/2016 Inactive Bactroban 2 % topica l ointment RxNorm: 707148 1 Application TOP BID 10/12/2015 10/21/2015 Inactive Bactrim DS 800 mg-16 0 mg tablet RxNorm: 080928 1 Tablet(s) PO BID 09/07/2015 09/06/2015 Inactive Bactrim DS 800 mg-16 0 mg tablet RxNorm: 369693 1 Tablet(s) PO BID 09/07/2015 09/16/2015 Inactive lorazepam 1 mg tablet RxNorm: 506606 Tablet(s) TAKE TWO TABLETS BY MOUTH AT B EDTIME AND ONE TABLET DAILY NEEDED 08/28/2015 11/24/2015 Inactive (Response to an electronic controlled substance refill request - RxReferenceNumber: [id number]) tramadol 50 mg tablet RxNorm: 143765 1 Tablet(s) PO Q4H as needed for pain 08/24/2015 10/01/2015 In active [SAVINGS FOR UNINSURED PATIENTS -- BIN:0 25299, PCN: ASPROD1, Group: AME08, ID# [id number], Process claim through [employer], for questions: . THIS IS NOT INSURANCE.] lisinopril 20 mg-hyd rochlorothiazide 25 mg tablet RxNorm: 343128 1 Tablet(s) PO daily TAKE 1 TABLET BY MOUTH DAILY 08/24/2015 10/22/2015 Inactive levothyroxine 175 mc g tablet RxNorm: 136987 1 Tablet(s) PO daily 08/24/2015 11/24/2015 Inactive ProAir HFA 90 mcg/ac tuation aerosol inhaler RxNorm: 640819 1-2 Puff(s) INH PRN I NHALE ONE TO TWO PUFFS BY MOUTH FOUR TIMES A DAY NEEDED FOR ASTHMA 08/24/2015 12/01/2015 In active ProAir HFA 90 mcg/ac tuation aerosol inhaler RxNorm: 8329091 INHALE ONE TO TWO PU FFS BY MOUTH FOUR TIMES A DAY NEEDED FOR ASTHMA 08/17/2015 08/23/2015 Inactive Advair Diskus 250 mc g-50 mcg/dose powder for inhalation RxNorm: 2893143 1 Puff(s) INH BID 07/20/2015 07/19/2015 Inactive Advair Diskus 250 mc g-50 mcg/dose powder for inhalation RxNorm: 0282746 1 Puff(s) INH BID 07/20/2015 11/16/2015 Inactive tramadol 50 mg tablet RxNorm: 439525 1 Tablet(s) PO Q4H as needed for pain 07/10/2015 08/17/2015 In active [SAVINGS FOR UNINSURED PATIENTS -- BIN:0 81847, PCN: ASPROD1, Group: AME08, ID# [id number], Process claim through [employer], for questions: . THIS IS NOT INSURANCE.] Zithromax Z-Linus 250 mg tablet RxNorm: 469738 1 Tablet(s) PO UD 07/10/2015 01/18/2016 Inactive Keflex 500 mg capsule RxNorm: 117882 1 Capsule(s) PO TID 06/01/2015 06/07/2015 Inactive mupirocin 2 % topica l ointment RxNorm: 253787 1 Application TOP TID 06/01/2015 06/10/2015 Inactive lisinopril 20 mg-hyd rochlorothiazide 25 mg tablet RxNorm: 560580 TAKE 1 TABLET BY MOUT H DAILY 05/30/2015 08/23/2015 Inactive lisinopril 20 mg-hyd rochlorothiazide 25 mg tablet RxNorm: 511629 1 Tablet(s) PO daily 05/29/2015 11/24/2015 Inactive [SAVINGS FOR UNINSURED PATIENTS -- BIN:0 60202, PCN: ASPROD1, Group: AME08, ID# [id number], Process claim through [employer], for questions: . THIS IS NOT INSURANCE.] lorazepam 1 mg tablet RxNorm: 757649 Tablet(s) TAKE TWO TABLETS BY MOUTH AT B EDTIME AND ONE TABLET DAILY NEEDED 04/17/2015 07/13/2015 Inactive (Response to an electronic controlled substance refill request - RxReferenceNumber: [id number]) levothyroxine 200 mc g tablet RxNorm: 593173 1 Tablet(s) PO daily 03/12/2015 08/23/2015 Inactive [SAVINGS FOR UNINSURED PATIENTS -- BIN:0 56816, PCN: ASPROD1, Group: [id number], ID# [id number], Process claim through [employer], for questions: . THIS IS NOT INSURANCE.] lisinopril 20 mg-hyd rochlorothiazide 25 mg tablet RxNorm: 830439 1 Tablet(s) PO daily 03/11/2015 05/28/2015 Inactive [SAVINGS FOR UNINSURED PATIENTS -- BIN:0 39340, PCN: ASPROD1, Group: AME08, ID# [id number], Process claim through [employer], for questions: . THIS IS NOT INSURANCE.] levothyroxine 175 mc g tablet RxNorm: 876859 1 Tablet(s) PO daily 03/09/2015 03/11/2015 Inactive recheck blood in 3 months- THIS IS CORRE CT DOSAGE levothyroxine 175 mc g tablet RxNorm: 308532 1 Tablet(s) PO daily 03/09/2015 03/08/2015 Inactive recheck blood in 3 months levothyroxine 150 mc g tablet RxNorm: 114489 1 Tablet(s) PO daily 03/09/2015 03/08/2015 Inactive recheck blood in 3 months lorazepam 1 mg tablet RxNorm: 035451 TAKE TWO TABLETS BY MOUTH AT BEDTIME AND ONE TABLET DAILY NEEDED 12/25/2014 01/22/2015 Inactive (Response to an electronic controlled substance refill request - RxReferenceNumber: [id number]) lorazepam 1 mg tablet RxNorm: 132270 Tablet(s) TAKE TWO TABLETS BY MOUTH EVER Y NIGHT AT BEDTIME AND TAKE ONE TABLET BY MOUTH DAILY NEEDED 12/23/2014 12/25/2014 Inactive (Response to an electronic controlled north bstance refill request - RxReferenceNumber: [id number]) levothyroxine 150 mc g tablet RxNorm: 544447 1 Tablet(s) PO daily 12/12/2014 03/08/2015 Inactive recheck blood in 3 months Diflucan 150 mg tablet RxNorm: 260295 1 Tablet(s) PO every other day (start af ter finished with Cipro) 11/17/2014 08/23/2015 Inactive tramadol 50 mg tablet RxNorm: 578355 1 Tablet(s) PO Q4H as needed for pain 11/10/2014 12/17/2014 In active [SAVINGS FOR UNINSURED PATIENTS -- BIN:0 32378, PCN: ASPROD1, Group: AME08, ID# [id number], Process claim through [employer], for questions: . THIS IS NOT INSURANCE.] Cipro 500 mg tablet RxNorm: 509236 1 Tablet(s) PO BID 10/23/2014 10/29/2014 Inactive Flagyl 500 mg tablet RxNorm: 343604 1 Tablet(s) PO TID 10/23/2014 10/29/2014 Inactive Cipro 500 mg tablet RxNorm: 627678 1 Tablet(s) PO BID 10/23/2014 10/22/2014 Inactive Flagyl 500 mg tablet RxNorm: 793624 1 Tablet(s) PO TID 10/23/2014 10/22/2014 Inactive Diflucan 150 mg tablet RxNorm: 688274 1 Tablet(s) PO every other day (start af ter finished with Cipro) 10/23/2014 11/16/2014 Inactive lorazepam 1 mg tablet RxNorm: 083354 TAKE TWO TABLETS BY MOUTH EVERY NIGHT AT BEDTIME AND TAKE ONE TABLET BY MOUTH DAILY NEEDED 10/21/2014 10/21/2014 Inactive (Response to an electronic controlled north bstance refill request - RxReferenceNumber: [id number]) lorazepam 1 mg tablet RxNorm: 497889 TAKE TWO TABLETS BY MOUTH EVERY NIGHT AT BEDTIME AND TAKE ONE TABLET BY MOUTH DAILY NEEDED 10/21/2014 11/18/2014 Inactive (Response to an electronic controlled north bstance refill request - RxReferenceNumber: [id number]) lorazepam 1 mg tablet RxNorm: 235714 Tablet(s) TAKE TWO TABLETS BY MOUTH AT B EDTIME, ALSO TAKE ONE TABLET BY MOUTH DAILY NEEDED 10/13/2014 10/21/2014 Inactive (Res ponse to an electronic controlled substance refill request - RxReferenceNumber: [id number]) ProAir HFA 90 mcg/ac tuation aerosol inhaler RxNorm: 8919875 1-2 inhale INH QID a s needed ASTHMA 10/13/2014 12/26/2014 Inactive ProAir HFA 90 mcg/ac tuation aerosol inhaler RxNorm: 9498168 1-2 inhale INH QID a s needed ASTHMA 09/18/2014 10/12/2014 Inactive meloxicam 7.5 mg tablet RxNorm: 193441 1 Tablet(s) PO daily 09/18/2014 03/10/2015 Inactive [SAVINGS FOR UNINSURED PATIENTS -- BIN:0 03017, PCN: ASPROD1, Group: [id number], ID# [id number], Process claim through [employer], for questions: . THIS IS NOT INSURANCE.] sulfamethoxazole 800 mg-trimethoprim 160 mg tablet RxNorm: 650244 1 Tablet(s) PO BID 09/18/2014 10/07/2014 Inactive levothyroxine 175 mc g tablet RxNorm: 264768 1 Tablet(s) PO daily 09/17/2014 12/11/2014 Inactive levothyroxine 175 mc g tablet RxNorm: 812445 1 Tablet(s) PO daily 09/17/2014 09/16/2014 Inactive lorazepam 1 mg tablet RxNorm: 639245 Tablet(s) TAKE TWO TABLETS BY MOUTH AT B EDTIME, ALSO TAKE ONE TABLET BY MOUTH DAILY NEEDED 09/12/2014 10/11/2014 Inactive (Res ponse to an electronic controlled substance refill request - RxReferenceNumber: [id number]) lorazepam 1 mg tablet RxNorm: 909246 TAKE TWO TABLETS BY MOUTH AT BEDTIME, AL SO TAKE ONE TABLET BY MOUTH DAILY NEEDED 09/08/2014 09/11/2014 Inactive (Res ponse to an electronic controlled substance refill request - RxReferenceNumber: [id number]) meloxicam 7.5 mg tablet RxNorm: 832350 1 Tablet(s) PO daily 09/01/2014 09/17/2014 Inactive [SAVINGS FOR UNINSURED PATIENTS -- BIN:0 87067, PCN: ASPROD1, Group: AME08, ID# [id number], Process claim through [employer], for questions: . THIS IS NOT INSURANCE.] lisinopril 20 mg-hyd rochlorothiazide 25 mg tablet RxNorm: 181332 1 Tablet(s) PO daily 09/01/2014 12/29/2014 Inactive [SAVINGS FOR UNINSURED PATIENTS -- BIN:0 79513, PCN: ASPROD1, Group: AME08, ID# [id number], Process claim through [employer], for questions: . THIS IS NOT INSURANCE.] tramadol 50 mg tablet RxNorm: 946907 1 Tablet(s) PO Q4H as needed for pain 08/20/2014 11/07/2014 In active [SAVINGS FOR UNINSURED PATIENTS -- BIN:0 91158, PCN: ASPROD1, Group: AME08, ID# [id number], Process claim through [employer], for questions: . THIS IS NOT INSURANCE.] meloxicam 7.5 mg tablet RxNorm: 613931 1 Tablet(s) PO daily 08/14/2014 08/31/2014 Inactive [SAVINGS FOR UNINSURED PATIENTS -- BIN:0 16026, PCN: ASPROD1, Group: AME08, ID# [id number], Process claim through [employer], for questions: . THIS IS NOT INSURANCE.] lorazepam 1 mg tablet RxNorm: 211763 2 Tablet(s) PO QHS and 1 tab qd PRN 08/01/2014 09/08/2014 In active [SAVINGS FOR UNINSURED PATIENTS -- BIN:0 43513, PCN: ASPROD1, Group: AME08, ID# [id number], Process claim through [employer], for questions: . THIS IS NOT INSURANCE.] levothyroxine 200 mc g tablet RxNorm: 828403 1 Tablet(s) PO daily 07/31/2014 09/16/2014 Inactive [SAVINGS FOR UNINSURED PATIENTS -- BIN:0 08774, PCN: ASPROD1, Group: AME08, ID# [id number], Process claim through [employer], for questions: . THIS IS NOT INSURANCE.] lorazepam 1 mg tablet RxNorm: 289725 2 Tablet(s) PO QHS and 1 tab qd PRN No Start Date 07/31/2014 Inactive meloxicam 7.5 mg tablet RxNorm: 808115 1 Tablet(s) PO daily No Start Date 08/13/2014 Inactive lisinopril 20 mg-hyd rochlorothiazide 25 mg tablet RxNorm: 889882 1 Tablet(s) PO daily No Start Date 08/31/2014 Inactive levothyroxine 200 mc g tablet RxNorm: 483990 1 Tablet(s) PO daily No Start Date 07/30/2014 Inactive Diflucan 150 mg tablet RxNorm: 207683 1 Tablet(s) PO every other day No Start Date 10/22/2014 Inactive Zithromax Z-Linus 250 mg tablet RxNorm: 709979 1 Tablet(s) PO UD No Start Date 07/09/2015 Inactive tramadol 50 mg tablet RxNorm: 845738 1 Tablet(s) PO Q6 as needed No Start Date 08/19/2014 Inactive Medication Administered Medication Codes Instruc tions Start Date Status Kenalog 40 mg/mL suspension for injection RxNorm: 1692855 1Milliliter 03/27/2017 N o longer Active Kenalog 40 mg/mL suspension for injection RxNorm: 6240473 Milliliter 12/07/2016 No longer Active Kenalog 40 mg/mL suspension for injection RxNorm: 3011089 Milliliter 11/28/2016 No longer Active Immunizations Vaccine [...] hTSH II 1.45 uIU/mL 03/27/2017 Free T4 Qho334 FREE T4 1.23 ng/dL 03/27/2017 Comp Metabolic Quv602 NA 140 mEq/L 09/28/2016 Comp Metabolic Zwu640 K 3.9 mEq/L 09/28/2016 Comp Metabolic Cye879 CL 104 mEq/L 09/28/2016 Comp Metabolic Ptp475 CO2 28.0 mEq/L 09/28/2016 Comp Metabolic Fms798 AN ION GAP 12 09/28/2016 Comp Metabolic Clg695 GL UCOSE 97 mg/dL 09/28/2016 Comp Metabolic Hxj495 Cr eat 0.8 mg/dL 09/28/2016 Comp Metabolic Fqu140 eG FR 79 ml/min/1.73m2 09/28 Comp Metabolic Udg362 BUN 13 mg/dL 09/28/2016 Comp Metabolic Oxd889 B/ C Ratio 17.1 Ratio 09/28/2016 Comp Metabolic Lal421 CA LCIUM 8.9 mg/dL 09/28/2016 Comp Metabolic Fng953 AL K PHOS 100 U/L 09/28/2016 Comp Metabolic Naj762 T(SGOT) 12 U/L 09/28/2016 Comp Metabolic Pxl087 AL T(SGPT) 9 U/L 09/28/2016 Comp Metabolic Ggp076 BI LI T 0.4 mg/dL 09/28/2016 Comp Metabolic Ula406 AL BUMIN 4.1 g/dL 09/28/2016 Comp Metabolic Lnm966 TP RO 6.6 g/dL 09/28/2016 Comp Metabolic Qdm873 GL OB 2.5 g/dL 09/28/2016 Comp Metabolic Dpq585 A/ G Ratio 1.6 Ratio 09/28/2016 Comp Metabolic Pnd482 Os mo 279 mOsmo 09/28/2016 Lipid Ord30 [...] 21.5 % 09/28/2016 Cbc With Differential Ord2 Lawrence% 7.2 % 09/28/2016 Cbc With Differential Ord2 [...] 1.41 K/ul 09/28/2016 Cbc With Differential Ord2 Lawrence ABS# 0.5 K/ul 09/28/2016 Cbc With Differential Ord2 Eos ABS# 0.2 K/ul 09/28/2016 Cbc With Differential Ord2 Baso ABS# 0.0 K/ul 09/28/2016 Free T4 Ncf083 FREE T4 1.43 ng/dL 09/28/2016 Tsh Ord6 hTSH II 0.52 uIU/mL 09/28/2016 Tsh Ord6 hTSH II 0.47 uIU/mL 06/16/2016 Comp Metabolic Iks876 NA 139 mEq/L 06/16/2016 Comp Metabolic Qgb067 K 4.3 mEq/L 06/16/2016 Comp Metabolic Raa232 CL 105 mEq/L 06/16/2016 Comp Metabolic Icn029 CO2 30.0 mEq/L 06/16/2016 Comp Metabolic Pmw596 AN ION GAP 8 06/16/2016 Comp Metabolic Hcx646 GL UCOSE 90 mg/dL 06/16/2016 Comp Metabolic Crr794 Cr eat 0.7 mg/dL 06/16/2016 Comp Metabolic Xvz376 eG FR 91 ml/min/1.73m2 06/16 Comp Metabolic Jsg391 BUN 15 mg/dL 06/16/2016 Comp Metabolic Xpd641 B/ C Ratio 22.4 Ratio 06/16/2016 Comp Metabolic Nuh110 CA LCIUM 8.8 mg/dL 06/16/2016 Comp Metabolic Ydy334 AL K PHOS 79 U/L 06/16/2016 Comp Metabolic Rrh101 T(SGOT) 13 U/L 06/16/2016 Comp Metabolic Tsa323 AL T(SGPT) 11 U/L 06/16/2016 Comp Metabolic Hhn852 BI LI T 0.5 mg/dL 06/16/2016 Comp Metabolic Zbz947 AL BUMIN 3.9 g/dL 06/16/2016 Comp Metabolic Qrj433 TP RO 6.1 g/dL 06/16/2016 Comp Metabolic Mht273 GL OB 2.2 g/dL 06/16/2016 Comp Metabolic Ojv553 A/ G Ratio 1.8 Ratio 06/16/2016 Comp Metabolic Psn234 Os mo 278 mOsmo 06/16/2016 Lipid Ord30 [...] 31.4 % 06/16/2016 Cbc With Differential Ord2 Lawrence% 8.1 % 06/16/2016 Cbc With Differential Ord2 [...] 1.70 K/ul 06/16/2016 Cbc With Differential Ord2 Lawrence ABS# 0.4 K/ul 06/16/2016 Cbc With Differential Ord2 Eos ABS# 0.2 K/ul 06/16/2016 Cbc With Differential Ord2 Baso ABS# 0.0 K/ul 06/16/2016 Free T4 Xuy390 FREE T4 1.42 ng/dL 06/16/2016 Free T4 Bib809 FREE T4 1.34 ng/dL 03/04/2016 Tsh Ord6 hTSH II 0.56 uIU/mL 03/04/2016 Tsh Ord6 hTSH II 0.98 uIU/mL 01/27/2016 Free T4 Lja477 FREE T4 1.19 ng/dL 01/27/2016 Free T4 Dsl839 FREE T4 1.69 ng/dL 11/23/2015 Tsh Ord6 hTSH II 0.08 uIU/mL 11/23/2015 Lipid Ord30 CHOL 185 mg/dL 08/21/2015 Lipid Ord30 HDL 50.0 mg/dl 08/21/2015 Lipid Ord30 TRIG 88 mg/dL 08/21/2015 Lipid Ord30 LDL 117 mg/dL 08/21/2015 Lipid Ord30 C/HDL 3.7 Ratio 08/21/2015 Comp Metabolic Ttv391 NA 139 mEq/L 08/21/2015 Comp Metabolic Lvk378 K 4.3 mEq/L 08/21/2015 Comp Metabolic Nyw989 CL 102 mEq/L 08/21/2015 Comp Metabolic Pzl900 CO2 27.0 mEq/L 08/21/2015 Comp Metabolic Afq061 AN ION GAP 14 08/21/2015 Comp Metabolic Mha823 GL UCOSE 89 mg/dL 08/21/2015 Comp Metabolic Mhb057 Cr eat 0.7 mg/dL 08/21/2015 Comp Metabolic Qfl893 eG FR 85 ml/min/1.73m2 08/21 Comp Metabolic Fec054 BUN 14 mg/dL 08/21/2015 Comp Metabolic Buy746 B/ C Ratio 19.7 Ratio 08/21/2015 Comp Metabolic Uml789 CA LCIUM 9.5 mg/dL 08/21/2015 Comp Metabolic Lyd773 AL K PHOS 123 U/L 08/21/2015 Comp Metabolic Xwz769 T(SGOT) 13 U/L 08/21/2015 Comp Metabolic Bej021 AL T(SGPT) 10 U/L 08/21/2015 Comp Metabolic Kvf814 BI LI T 0.4 mg/dL 08/21/2015 Comp Metabolic Esi147 AL BUMIN 4.1 g/dL 08/21/2015 Comp Metabolic Szo739 TP RO 6.8 g/dL 08/21/2015 Comp Metabolic [id number] GL OB 2.7 g/dL 08/21/2015 Comp Metabolic Vff333 A/ G Ratio 1.5 Ratio 08/21/2015 Comp Metabolic Rka819 Os mo 277 mOsmo 08/21/2015 Free T4 Gpk112 FREE T4 1.78 ng/dL 08/21/2015 Tsh Ord6 [...] Ord2 RDW 13.9 % 08/21/2015 Quick Strep [id number] Quic k Strep Negative 07/08/2015 Tsh Ord6 hTSH II 0.04 uIU/mL 05/20/2015 Free T4 Jnj815 FREE T4 1.50 ng/dL 05/20/2015 Review of [...] Date TRIAMCINOLONE ACET I [place] NOS CPT-4: [id number] 03/27/2017 THER/PROPH/DIAG INJ SC/IM CPT-4: 98804Xnzoixs 12/07/2016 TRIAMCINOLONE ACET I [place] NOS CPT-4: X7051Nmpgkkp 12/07/2016 THER/PROPH/DIAG INJ SC/IM CPT-4: 07002Lyztwdi 11/28/2016 TRIAMCINOLONE ACET I [place] NOS CPT-4: P6907Fkkyvgl 11/28/2016 Vital Signs Date Vital 03/27/2017 Blood Pressure 1: 142/84 Code: 8480-6 BMI: 38.7 Code: 08831-7 Heart Rate 1: 69 bpm Height: 5'6" SpO2: 97% Weight: 240 lbs 01/26/2017 Blood Pressure 1: 136/68 Code: 8480-6 Heart Rate 1: 64 bpm Height: 5'6" SpO2: 96% Weight: 12/07/2016 Blood Pressure 1: 130/72 Code: 8480-6 BMI: 39.7 Code: 75090-8 Heart Rate 1: 73 bpm Height: 5'6" SpO2: 93% Temperature: 36.8 (C ) / 98.3 (F) Weight: 246 lbs 11/28/2016 Blood Pressure 1: 138/60 Code: 8480-6 BMI: 39.7 Code: 11523-8 Heart Rate 1: 81 bpm Height: 5'6" SpO2: 97% Weight: 246 lbs 11/15/2016 Blood Pressure 1: 134/78 Code: 8480-6 BMI: 39.7 Code: 05412-9 Heart Rate 1: 75 bpm Height: 5'6" SpO2: 93% Temperature: 36.8 (C ) / 98.2 (F) Weight: 246 lbs 10/17/2016 Blood Pressure 1: 120/64 Code: 8480-6 BMI: 38.4 Code: 84548-8 Heart Rate 1: 69 bpm Height: 5'6" SpO2: 98% Temperature: 37.2 (C ) / 98.9 (F) Weight: 238 lbs 09/28/2016 Blood Pressure 1: 158/76 Code: 8480-6 BMI: 39.4 Code: 13350-8 Heart Rate 1: 71 bpm Height: 5'6" SpO2: 97% Weight: 244 lbs 06/29/2016 Blood Pressure 1: 124/60 Code: 8480-6 BMI: 38.7 Code: 12911-9 Heart Rate 1: 71 bpm Height: 5'6" SpO2: 98% Weight: 240 lbs 06/01/2016 Blood Pressure 1: 120/62 Code: 8480-6 BMI: 38.6 Code: 95175-1 Heart Rate 1: 76 bpm Height: 5'6" SpO2: 98% Weight: 239 lbs 05/11/2016 Blood Pressure 1: 140/80 Code: 8480-6 BMI: 38.1 Code: 93718-1 Heart Rate 1: 88 bpm Height: 5'6" SpO2: 97% Weight: 236 lbs 04/05/2016 Blood Pressure 1: 142/80 Code: 8480-6 BMI: 38.4 Code: 60586-0 Heart Rate 1: 96 bpm Height: 5'6" SpO2: 98% Weight: 238 lbs 04/01/2016 Blood Pressure 1: 136/88 Code: 8480-6 BMI: 39.2 Code: 69958-6 Heart Rate 1: 86 bpm Height: 5'6" SpO2: 96% Weight: 243 lbs 01/26/2016 Blood Pressure 1: 124/76 Code: 8480-6 BMI: 39.2 Code: 15187-1 Heart Rate 1: 76 bpm Height: 5'6" SpO2: 97% Weight: 243 lbs 12/21/2015 Blood Pressure 1: 120/64 Code: 8480-6 BMI: 37.0 Code: 18130-3 Heart Rate 1: 98 bpm Height: 5'6" SpO2: 97% Weight: 229 lbs 10/12/2015 Blood Pressure 1: 150/64 Code: 8480-6 BMI: 37.4 Code: 20985-8 Heart Rate 1: 70 bpm Height: 5'6" SpO2: 94% Weight: 232 lbs 08/24/2015 Blood Pressure 1: 128/74 Code: 8480-6 BMI: 36.8 Code: 59655-9 Heart Rate 1: 88 bpm Height: 5'6" SpO2: 94% Temperature: 36.8 (C ) / 98.3 (F) Weight: 228 lbs 06/01/2015 Blood Pressure 1: 134/68 Code: 8480-6 BMI: 36.0 Code: 52339-8 Heart Rate 1: 70 bpm Height: 5'6" SpO2: 98% Weight: 223 lbs 05/21/2015 Blood Pressure 1: 126/72 Code: 8480-6 BMI: 35.2 Code: 78313-9 Heart Rate 1: 63 bpm Height: 5'6" SpO2: 95% Weight: 218 lbs 5 oz 03/26/2015 Blood Pressure 1: 140/62 Code: 8480-6 BMI: 35.3 Code: 88885-8 Heart Rate 1: 68 bpm Height: 5'6" Weight: 219 lbs 03/11/2015 Blood Pressure 1: 130/80 Code: 8480-6 BMI: 34.9 Code: 54733-2 Heart Rate 1: 76 bpm Height: 5'6" Temperature: 37.1 (C ) / 98.7 (F) Weight: 216 lbs 12/11/2014 Blood Pressure 1: 134/62 Code: 8480-6 BMI: 34.2 Code: 34772-1 Heart Rate 1: 72 bpm Height: 5'6" Weight: 212 lbs 09/18/2014 Blood Pressure 1: 148/80 Code: 8480-6 BMI: 34.7 Code: 14586-7 Heart Rate 1: 68 bpm Height: 5'6" Weight: 215 lbs 07/31/2014 Blood Pressure 1: 124/72 Code: 8480-6 BMI: 36.2 Code: 46244-9 Heart Rate 1: 68 bpm Height: 5'6" [...] Severity mi ld 09/28/2016 None hypothyroid Quality back stayer jamee 09/28/2016 None hypothyroid Onset and Resolution [...] Severity mi ld 06/01/2016 None hypothyroid Quality back stayer jamee 06/01/2016 None hypothyroid Onset and Resolution [...] and Resolution resolved 04/05/2016 None hypothyroid Quality back stayer jamee 04/05/2016 None hypothyroid Onset and Resolution [...] a ssociated factors 10/12/2015 None hypothyroid Quality back stayer jamee 08/24/2015 None hypothyroid Onset and Resolution [...] Severity mod erate 06/01/2015 None hypothyroid Quality back stayer jamee 05/21/2015 None hypothyroid Onset of Symptom [...] Findings brittle nails 03/11/2015 None hypothyroid Quality back stayer jamee 03/11/2015 None hypothyroid Quality stab le [...] Encounters Encounter Performer Loca tion Codes Date ([id number]) 23234 EST. P ATIENT, LEVEL IV Diagnosis: Contusion of left wrist, initial encounter[ICD10: S60.212A] Diagnosis: Hypothyroidism, unspecified[ICD10: E03.9] Diagnosis: Mild persistent asthma with (acute) exacerbation[ICD10: J45.31] Diagnosis: Low back pain[ICD10: M54.5] [facility] CPT- 4: 65086 03/27/2017 ([id number]) 84010 EST. P ATIENT, LEVEL IV Diagnosis: Essential (primary) hypertension[ICD10: I10] Diagnosis: Atrophy of thyroid (acquired)[ICD10: E03.4] Diagnosis: Low back pain[ICD10: M54.5] [facility] CPT-4: 95199 01/26/2017 16502 EST. PATIENT, LEVEL III Diagnosis: Other allergic rhinitis[ICD10: J30.89] Diagnosis: Mild persistent asthma with (acute) exacerbation[ICD10: J45.31] Mishel Finn MD, [facility] CPT-4: 62388 12/07/2016 83368 EST. PATIENT, LEVEL III Diagnosis: Mild persistent asthma with (acute) exacerbation[ICD10: J45.31] Mishel Finn MD [facility] CPT-4: 25861 11/28/2016 09854 EST. PATIENT, LEVEL III Diagnosis: Mild persistent asthma with (acute) exacerbation[ICD10: J45.31] Diagnosis: Acute bronchitis due to other specified organisms[ICD10: J20.8] Mishel Finn MD, [facility] CPT-4: 21742 11/15/2016 65020 EST. PATIENT, LEVEL IV Diagnosis: Other acute sinusitis[ICD10: J01.80] Diagnosis: Other allergic rhinitis[ICD10: J30.89] Diagnosis: Mild persistent asthma with (acute) exacerbation[ICD10: J45.31] Mishel Finn MD, [facility] CPT-4: 07738 10/17/2016 ([id number]) 02971 EST. P ATIENT, LEVEL IV Diagnosis: Essential (primary) hypertension[ICD10: I10] Diagnosis: Low back pain[ICD10: M54.5] Damari Finn MD, [facility] CPT-4: 46826 09/28/2016 83069 EST. PATIENT, LEVEL III Diagnosis: Tinea barbae and tinea capitis[ICD10: B35.0] Diagnosis: Other specified hypothyroidism[ICD10: E03.8] Mishel Finn MD, [facility] CPT-4: 81195 06/29/2016 ([id number]) 77237 EST. P ATIENT, LEVEL IV Diagnosis: Essential (primary) hypertension[ICD10: I10] Diagnosis: Atrophy of thyroid (acquired)[ICD10: E03.4] Diagnosis: Rash and other nonspecific skin eruption[ICD10: R21] Damari Finn MD, [facility] CPT-4: 30111 06/01/2016 ([id number]) 64725 EST. P ATIENT, LEVEL III Diagnosis: Cellulitis of groin[ICD10: L03.314] Damari Finn MD, [facility] CPT- 4: 11798 05/11/2016 ([id number]) 03460 EST. P ATIENT, LEVEL IV Diagnosis: Hypothyroidism, unspecified[ICD10: E03.9] Diagnosis: Candidiasis of vulva and vagina[ICD10: B37.3] Diagnosis: Essential (primary) hypertension[ICD10: I10] Diagnosis: Low back pain[ICD10: M54.5] Lynn Finn MD, [facility] CPT- 4: 81046 04/05/2016 87919 EST. PATIENT, LEVEL III Diagnosis: Other acute sinusitis[ICD10: J01.80] Diagnosis: Rash and other nonspecific skin eruption[ICD10: R21] Mishel Finn MD, [facility] CPT-4: 30748 04/01/2016 ([id number]) 43815 EST. P ATIENT, LEVEL IV Diagnosis: Essential (primary) hypertension[ICD10: I10] Diagnosis: Hypothyroidism, unspecified[ICD10: E03.9] Diagnosis: Low back pain[ICD10: M54.5] Diagnosis: Other obesity due to excess calories[ICD10: E66.09] Lynn Finn MD, [facility] CPT-4: 58559 01/26/2016 64306 EST. PATIENT, LEVEL IV Diagnosis: Essential (primary) hypertension[ICD10: I10] Diagnosis: Cutaneous abscess of face[ICD10: L02.01] Mishel Finn MD, [facility] CPT-4: 04982 12/21/2015 ([id number]) 23857 EST. P ATIENT, LEVEL III Diagnosis: Cutaneous abscess of groin[ICD10: L02.214] Diagnosis: Hypothyroidism, unspecified[ICD10: E03.9] Lynn Finn MD, [facility] CPT-4: 04473 10/12/2015 ([id number]) 60854 EST. P ATIENT, LEVEL III Diagnosis: Essential (primary) hypertension[ICD10: I10] Diagnosis: Hypothyroidism, unspecified[ICD10: E03.9] Diagnosis: Allergic rhinitis, unspecified[ICD10: J30.9] Lynn Finn MD, [facility] CPT-4: 88540 08/24/2015 ([id number]) 39914 EST. P ATIENT, LEVEL III Diagnosis: Skin infection[ICD9: 686.9] [facility] CPT-4: 07493 06/01/2015 ([id number]) 98089 EST. P ATIENT, LEVEL III Diagnosis: Hypothyroidism[ICD9: 244.9] Diagnosis: ESSENTIAL HYPERTENSION[ICD9: 401.9] [facility] CPT- 4: 48635 05/21/2015 ([id number]) 60493 EST. P ATIENT, LEVEL III Diagnosis: Hypothyroidism[ICD9: 244.9] Diagnosis: Fingernail abnormalities[ICD9: 703.8] [facility] CPT-4: 72981 03/26/2015 ([id number]) 64861 EST. P ATIENT, LEVEL II Diagnosis: Hypothyroidism[ICD9: 244.9] [facility]itza [facility] CPT-4: 71041 03/11/2015 ([id number]) 61141 EST. P ATIENT, LEVEL IV Diagnosis: ESSENTIAL HYPERTENSION[ICD9: 401.9] Diagnosis: Low back pain[ICD9: 724.2] Diagnosis: Hypothyroidism[ICD9: 244.9] [facility] CPT-4: 23616 12/11/2014 ([id number]) 91315 EST. P ATIENT, LEVEL IV Diagnosis: Hidradenitis suppurativa[ICD9: 705.83] Diagnosis: ESSENTIAL HYPERTENSION[ICD9: 401.9] Diagnosis: Low back pain[ICD9: 724.2] Diagnosis: Lumbar spinal stenosis[ICD9: 724.02] Diagnosis: HYPOTHYROIDISM[ICD9: 244.9] [facility] CPT-4: 84673 09/18/2014 Office outpatient ne w 30 minutes Diagnosis: ESSENTIAL HYPERTENSION[ICD9: 401.9] Diagnosis: Hypothyroidism[ICD9: 244.9] Diagnosis: Low back pain[ICD9: 724.2] [facility] CPT- 4: 51878 07/31/2014 Plan of Care Planned Activity Notes [...] based on previous levels of control.Low back vfrl-uvmuxvs-jcfrom tramadol for prn use 03/27/2017 Appointment: Lynn Arenas WPtel: [phone] [phone] (30 min) Complex 03/27/2017 Patient Education: Patient [...] 01/26/2017 Appointment: Damari Finn WPtel: [phone] [facility] [place] (15 min) Moderate 01/26/2017 Patient [...] concerns. 12/07/2016 [phone] ([facility]) Moderate 12/07/2016 Patient Education: Patient [...] worsen or do not improve, to call [facility] for instructions, or go to the EMERGENCY [...] changes. 11/28/2016 Appointment: Mishel Balderrama WPtel: [phone] [facility] (15 min) Moderate 11/28/2016 Patient Education: Patient Medication Summary Completed 11/28/2016 Appointment: Mishel Balderrama WPtel: [phone] [facility] (15 min) Moderate 11/24/2016 [...] changes. 11/15/2016 Appointment: Mishel Balderrama WPtel: [phone] [facility] (30 min) Complex 11/15/2016 Patient Education: Patient [...] changes. 10/17/2016 App[facility]ment: [phone] [place] (30 min) Complex 10/17/2016 Patient Education: [...] tylenol 09/28/2016 Appointment: Damari Finn WPtel: [phone] [facility] (15 min) Moderate 09/28/2016 Patient Education: [...] of control. 06/29/2016 Appointment: [phone] [place] (15 min) Moderate 06/29/2016 Patient Education: [...] fluconazole 06/01/2016 Appointment: Damari Finn WPtel: [phone] [facility] (15 min) Moderate 06/01/2016 Patient Education: Patient Medication Summary Completed 06/01/2016 Patient Education: Obesity Completed 06/01/2016 Visit Plan: Cellulitis - continue with o ral antibiotics as previously directed, return to clinic as previously directed, call for acute change in symptoms, worsening redness, warmth, discharge. 05/11/2016 [phone] (15 min) Moderate 05/11/2016 Patient Education: [...] concerns. 04/01/2016 Appointment: Lynn Arenas WPtel: [phone] [phone] (30 min) Complex 04/01/2016 Patient Education: Patient Medication Summary Completed 04/01/2016 Patient Education: Obesity Completed 04/01/2016 Appointment: Lynn Arenas WPtel: [phone] [phone] (30 min) Complex 03/29/2016 [...] previous levels of control.Low back pain-refill tramadol Cvcsb-rbgivghswl-hqddcawe resolved 01/26/2016 Appointment: Lynn Arenas WPtel: [phone] [phone] (30 min) Complex 01/26/2016 Patient Education: Patient Medication Summary Completed 01/26/2016 Patient Education: Obesity Completed 01/26/2016 Care Plan: BMI Above normal followup RADHA F-MGMT EDUC & TRAIN 1 PT Pending 01/26/2016 Care Plan: Referral Order SNOMED-CT : [id number] Pending 01/07/2016 Appointment: Lynn Arenas WPtel: [phone] [place] (15 min) Moderate 12/24/2015 Visit Plan: [...] improving. 06/01/2015 App[facility]ment: [phone] (15 min) Moderate 06/01/2015 Patient Education: [...] Pending 03/26/2015 Visit Plan: Hypothyroidism- pt with back stayer jamee hypothyroidism, After consultation with Dr. Finn, [...] refill tramadol 12/11/2014 Appointment: Damari Finn WPtel: [facility]5 [facility] [facility] follow up 12/11/2014 Patient Education: Patient Medication Summary Completed 12/11/2014 Patient Education: Hypertension Completed 12/11/2014 Appointment: Damari Finn WPtel: [facility]5 [facility] [facility] follow up 11/27/2014 Visit Plan: Hidradenitis Suppurativa [...] to get her back MRI done at [facility] in [place] as that is where her specialist will be once we get her an appt with one of the local Neurosurgeons. 09/18/2014 Appointment: Damari Finn WPtel: [facility]5 [facility] Follow up 09/18/2014 Patient Education: Patient [...] scheduled 07/31/2014 Appointment: [phone] [place] New Patient 07/31/2014 Patient [...] . Asthma Exacerbation - Asthma is a back stayer jamee problem for this patient, however, the [...] on previous levels of control. Low back supg-jladkdo-[place] tramadol for prn use Check thyroid on [...] . Asthma Exacerbation - Asthma is a back stayer jamee problem for this patient, however, the [...] . Asthma Exacerbation - Asthma is a back stayer jamee problem for this patient, however, the [...] symptoms, worsening redness, warmth, discharge. Declined Procedure: (60526) FLU VAC NO PRSV 4 JUSTYNA 3 YRS+; Declined Reason: refused Physical therapy at [facility] . Hypertension - well controlled - oleg [...] levels of control. Low back pain-refill tramadol Naqld-dinopafzzt-meaxtdqc resolved . Hypertension - wel l controlled [...] to get her back MRI done at [facility] in [place] as that is where her specialist will [...]
--- OUTSIDE RECORDS SUMMARY | 2020-02-20 19:15 | XMS REPORT | CCD ---
Author Author Ewa Arenas Organization Damari Finn MD, [facility] Address [address] [place] [address] Phone Care Team Providers Care Warper Creeler Name Role Phone PP Unavailable CCM Unavailable Summary Purpose Interface Exchange Insurance Providers Payer name Policy type / Coverage type Covered democrat ID Effective Begin Date Effective End Date WPS Medicare Part B Medicare Part B [id number] Unknown Unknown [facility] icare Part B [id number] Unknown Unk nown Family history Father Diagnosis Age At Onset Alcoholism Unknown Cancer Unknown Asthma Unknown Mother Diagnosis Age At Onset Cancer Unknown Alcoholism Unknown Cancer Unknown Son Diagnosis Age At Onset Hearing loss Unknown Social History Social History Element Codes Description Effective Dates Marital status Unknown D ivorced 07/31/2014 Number of children Unknown 2 07/31/2014 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 ICD-10: E03.4 Active 05/31/2016 Unknown Essential (primary) hypertension ICD-9: 401.9 ICD-10: I10 Active 07/31/2014 Unknown Low back pain ICD-9: 724.2 ICD-10: M54.5 Active 04/04/2016 Unknown Mild persistent asth ma with (acute) exacerbation ICD-9: 493.12 ICD-10: J45.31 Active 10/17/2016 Unknown Other allergic rhinitis ICD-9: 477.8 ICD-10: J30.89 Active 10/17/2016 Unknown Acute bronchitis due to other specified organisms ICD-9: 466.0 ICD-10: J20.8 Active 11/15/2016 Unknown Other acute sinusitis ICD-9: 461.8 ICD-10: J01.80 Active 03/31/2016 Unknown Hypothyroidism, unsp ecified ICD-9: 244.9 ICD-10: E03.9 Active 07/31/2014 Unknown Other specified hypo thyroidism ICD-9: 244.8 [...] Condition Codes Effectiv e Dates Condition Status 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 ICD-10: E03.4 05/31/2016 Active Essential (primary) hypertension ICD-9: 401.9 ICD-10: I10 07/31/2014 Active Low back pain ICD-9: 724.2 ICD-10: M54.5 04/04/2016 Active Mild persistent asth ma with (acute) exacerbation ICD-9: 493.12 ICD-10: J45.31 10/17/2016 Active Other allergic rhinitis ICD-9: 477.8 ICD-10: J30.89 10/17/2016 Active Acute bronchitis due to other specified organisms ICD-9: 466.0 ICD-10: J20.8 11/15/2016 Active Other acute sinusitis ICD-9: 461.8 ICD-10: J01.80 03/31/2016 Active Hypothyroidism, unsp ecified ICD-9: 244.9 ICD-10: E03.9 07/31/2014 Active Other specified hypo thyroidism ICD-9: 244.8 [...] Fill Instructions tramadol 50 mg tablet RxNorm: 475986 1 Tablet(s) PO Q4H as needed for pain 03/09/2017 04/17/2017 Ac tive [SAVINGS FOR UNINSURED PATIENTS -- BIN:0 10078, PCN: ASPROD1, Group: [id number], ID# [id number], Process claim through HourlyNerd, for questions: . THIS IS NOT INSURANCE.] lisinopril 20 mg-hyd rochlorothiazide 25 mg tablet RxNorm: 299382 TAKE ONE TABLET BY MOUTH DAILY 01/29/2017 06/27/2017 Active lorazepam 1 mg tablet RxNorm: 858962 Tablet(s) TAKE TWO TABLETS BY MOUTH AT B EDTIME NEEDED FOR INSOMNIA AND ONE TABLET DAILY NEEDED ANXIETY 01/05/2017 04/04/2017 Active tramadol 50 mg tablet RxNorm: 686926 1 Tablet(s) PO Q4H as needed for pain 12/07/2016 01/13/2017 In active [SAVINGS FOR UNINSURED PATIENTS -- BIN:0 15551, PCN: ASPROD1, Group: AME08, ID# [id number], Process claim through HourlyNerd, for questions: . THIS IS NOT INSURANCE.] Kenalog 40 mg/mL madhavi pension for injection RxNorm: 5105481 Milliliter(s) Inj 12/07/2016 12/07/2016 In active nystatin 100,000 uni t/mL oral suspension RxNorm: 588633 4 Milliliter(s) PO QI D 12/07/2016 12/11/2016 In active Francia-D 12 Hour 60 mg-120 mg tablet,extended release RxNorm: 971663 1 Tablet(s) PO BID 12/07/2016 01/11/2017 Inactive lorazepam 1 mg tablet RxNorm: 189031 Tablet(s) TAKE TWO TABLETS BY MOUTH AT B EDTIME AND ONE TABLET DAILY NEEDED 12/07/2016 01/04/2017 Inactive (Response to an electronic controlled substance refill request - RxReferenceNumber: [id number]) albuterol sulfate 2. 5 mg/3 mL (0.083 %) solution for nebulization RxNorm: 520985 3 Milliliter(s) INH TID 11/29/2016 11/28/2016 Inactive prednisone 10 mg tablet RxNorm: 367626 Tablet(s) PO UD 11/29/2016 12/05/2016 Inactive 6,5,4,3,2,1 doxycycline hyclate 100 mg tablet RxNorm: 514461 1 Tablet(s) PO BID 11/29/2016 12/04/2016 Inactive albuterol sulfate 2. 5 mg/3 mL (0.083 %) solution for nebulization RxNorm: 938472 3 Milliliter(s) INH TID 11/29/2016 12/03/2016 Inactive Kenalog 40 mg/mL madhavi pension for injection RxNorm: 8108337 Milliliter(s) Inj 11/28/2016 11/28/2016 In active Advair Diskus 100 mc g-50 mcg/dose powder for inhalation RxNorm: 7201776 1 Puff(s) INH BID 11/15/2016 03/14/2017 Active ProAir HFA 90 mcg/ac tuation aerosol inhaler RxNorm: 121848 INHALE 1 TO 2 PUFFS F OUR TIMES A DAY NEEDED FOR ASTHMA 11/15/2016 04/13/2017 Active tramadol 50 mg tablet RxNorm: 723399 1 Tablet(s) PO Q4H as needed for pain 11/15/2016 12/06/2016 In active [SAVINGS FOR UNINSURED PATIENTS -- BIN:0 58620, PCN: ASPROD1, Group: [id number], ID# [id number], Process claim through HourlyNerd, for questions: . THIS IS NOT INSURANCE.] prednisone 20 mg tablet RxNorm: 597566 2 Tablet(s) PO daily 11/15/2016 11/19/2016 Inactive Zithromax Z-Linus 250 mg tablet RxNorm: 979223 1 Tablet(s) PO UD 11/15/2016 11/27/2016 Inactive Zyrtec 10 mg tablet RxNorm: 0699405 1 Tablet(s) PO daily 10/17/2016 11/15/2016 Inactive Keflex 500 mg capsule RxNorm: 845862 1 Capsule(s) PO TID 10/17/2016 10/23/2016 Inactive prednisone 10 mg tablet RxNorm: 578208 Tablet(s) PO UD 10/17/2016 11/28/2016 Inactive 6,5,4,3,2,1 tramadol 50 mg tablet RxNorm: 155317 1 Tablet(s) PO Q4H as needed for pain 09/28/2016 11/06/2016 In active [SAVINGS FOR UNINSURED PATIENTS -- BIN:0 22851, PCN: ASPROD1, Group: [id number], ID# [id number], Process claim through HourlyNerd, for questions: . THIS IS NOT INSURANCE.] ProAir HFA 90 mcg/ac tuation aerosol inhaler RxNorm: 770140 INHALE 1 TO 2 PUFFS F OUR TIMES A DAY NEEDED FOR ASTHMA 09/15/2016 11/14/2016 Inactive doxycycline hyclate 100 mg tablet RxNorm: 029230 1 Tablet(s) PO BID 09/15/2016 09/24/2016 Inactive doxycycline hyclate 100 mg tablet RxNorm: 177713 1 Tablet(s) PO BID 07/29/2016 08/07/2016 Inactive tramadol 50 mg tablet RxNorm: 292335 1 Tablet(s) PO Q4H as needed for pain 07/29/2016 09/06/2016 In active [SAVINGS FOR UNINSURED PATIENTS -- BIN:0 47593, PCN: ASPROD1, Group: AME08, ID# [id number], Process claim through HourlyNerd, for questions: . THIS IS NOT INSURANCE.] lorazepam 1 mg tablet RxNorm: 975114 Tablet(s) TAKE TWO TABLETS BY MOUTH AT B EDTIME AND ONE TABLET DAILY NEEDED 07/29/2016 10/26/2016 Inactive (Response to an electronic controlled substance refill request - RxReferenceNumber: [id number]) levothyroxine 137 mc g tablet RxNorm: 860662 1 Tablet(s) PO daily 06/29/2016 12/25/2016 Inactive levothyroxine 125 mc g tablet RxNorm: 381037 1 Tablet(s) PO daily 06/29/2016 06/29/2016 Inactive ketoconazole 2 % sha mpoo RxNorm: 616585 1 Application TOP BID 06/29/2016 07/03/2016 Inactive Bactroban 2 % topica l ointment RxNorm: 442487 APPLY TO AFFECTED ARE A(S) TWO TIMES A DAY 06/16/2016 07/15/2016 Inactive tramadol 50 mg tablet RxNorm: 262136 1 Tablet(s) PO Q4H as needed for pain 06/16/2016 07/25/2016 In active [SAVINGS FOR UNINSURED PATIENTS -- BIN:0 21052, PCN: ASPROD1, Group: [facility], ID# [id number], Process claim through HourlyNerd, for questions: . THIS IS NOT INSURANCE.] fluconazole 150 mg t ablet RxNorm: 772443 1 Tablet(s) PO daily 06/01/2016 06/05/2016 Inactive gentamicin 0.1 % top ical ointment RxNorm: 873244 1 Application TOP QID 05/12/2016 05/25/2016 In active metronidazole 500 mg tablet RxNorm: 421628 1 Tablet(s) PO TID 05/11/2016 05/24/2016 Inactive gentamicin 0.1 % top ical ointment RxNorm: 864053 1 Application TOP QID 05/11/2016 05/11/2016 In active doxycycline hyclate 100 mg tablet RxNorm: 516926 1 Tablet(s) PO BID 05/11/2016 05/24/2016 Inactive Diflucan 150 mg tablet RxNorm: 234496 1 Tablet(s) PO daily x5 days then 1 x we ekly x 4 weeks. 05/02/2016 05/11/2016 Inactive lorazepam 1 mg tablet RxNorm: 626595 Tablet(s) TAKE TWO TABLETS BY MOUTH AT B EDTIME AND ONE TABLET DAILY NEEDED 05/02/2016 07/28/2016 Inactive (Response to an electronic controlled substance refill request - RxReferenceNumber: [id number]) Diflucan 150 mg tablet RxNorm: 277879 1 Tablet(s) PO every other day 04/19/2016 04/28/2016 In active Diflucan 150 mg tablet RxNorm: 422115 1 Tablet(s) PO every other day 04/19/2016 04/18/2016 In active Diflucan 150 mg tablet RxNorm: 418947 1 Tablet(s) PO daily 04/05/2016 04/11/2016 Inactive mupirocin 2 % topica l ointment RxNorm: 523586 1 Application TOP BID 04/05/2016 05/04/2016 Inactive tramadol 50 mg tablet RxNorm: 443058 1 Tablet(s) PO Q4H as needed for pain 04/05/2016 05/14/2016 In active [SAVINGS FOR UNINSURED PATIENTS -- BIN:0 05627, PCN: ASPROD1, Group: [id number], ID# [id number], Process claim through HourlyNerd, for questions: . THIS IS NOT INSURANCE.] prednisone 10 mg tablet RxNorm: 114980 Tablet(s) PO UD 04/01/2016 09/26/2016 Inactive 6,5,4,3,2,1 levothyroxine 137 mc g tablet RxNorm: 043764 1 Tablet(s) PO daily 03/21/2016 03/20/2016 Inactive levothyroxine 137 mc g tablet RxNorm: 103825 1 Tablet(s) PO daily 03/21/2016 06/28/2016 Inactive Advair Diskus 100 mc g-50 mcg/dose powder for inhalation RxNorm: 9431559 1 Puff(s) INH BID 01/26/2016 05/24/2016 Inactive tramadol 50 mg tablet RxNorm: 628809 1 Tablet(s) PO Q4H as needed for pain 01/26/2016 03/05/2016 In active [SAVINGS FOR UNINSURED PATIENTS -- BIN:0 74954, PCN: ASPROD1, Group: [id number], ID# [id number], Process claim through HourlyNerd, for questions: . THIS IS NOT INSURANCE.] Bactroban 2 % topica l ointment RxNorm: 571810 APPLY TO AFFECTED ARE A(S) TWO TIMES A DAY 12/22/2015 12/31/2015 Inactive Bactrim DS 800 mg-16 0 mg tablet RxNorm: 583576 TAKE ONE TABLET BY [facility] TWICE A DAY 12/22/2015 04/18/2016 In active Bactrim DS 800 mg-16 0 mg tablet RxNorm: 712217 1 Tablet(s) PO BID 12/21/2015 12/30/2015 Inactive lisinopril 20 mg-hyd rochlorothiazide 25 mg tablet RxNorm: 256260 1 Tablet(s) PO daily 12/21/2015 06/17/2016 Inactive [SAVINGS FOR UNINSURED PATIENTS -- BIN:0 93036, PCN: ASPROD1, Group: AME08, ID# [id number], Process claim through HourlyNerd, for questions: . THIS IS NOT INSURANCE.] tramadol 50 mg tablet RxNorm: 555465 1 Tablet(s) PO Q4H as needed for pain 12/03/2015 01/11/2016 In active [SAVINGS FOR UNINSURED PATIENTS -- BIN:0 15170, PCN: ASPROD1, Group: AME08, ID# [id number], Process claim through HourlyNerd, for questions: . THIS IS NOT INSURANCE.] lorazepam 1 mg tablet RxNorm: 687717 Tablet(s) TAKE TWO TABLETS BY MOUTH AT B EDTIME AND ONE TABLET DAILY NEEDED 11/26/2015 02/21/2016 Inactive (Response to an electronic controlled substance refill request - [facility] [id number]) Bactrim DS 800 mg-16 0 mg tablet RxNorm: 742054 1 Tablet(s) PO BID 11/25/2015 12/04/2015 Inactive levothyroxine 150 mc g tablet RxNorm: 932148 1 Tablet(s) PO daily 11/25/2015 03/20/2016 Inactive Bactroban 2 % topica l ointment RxNorm: 331164 1 Application TOP BID 10/12/2015 10/21/2015 Inactive Bactrim DS 800 mg-16 0 mg tablet RxNorm: 959042 1 Tablet(s) PO BID 09/07/2015 09/06/2015 Inactive Bactrim DS 800 mg-16 0 mg tablet RxNorm: 508403 1 Tablet(s) PO BID 09/07/2015 09/16/2015 Inactive lorazepam 1 mg tablet RxNorm: 155712 Tablet(s) TAKE TWO TABLETS BY MOUTH AT B EDTIME AND ONE TABLET DAILY NEEDED 08/28/2015 11/24/2015 Inactive (Response to an electronic controlled substance refill request - [facility]: [id number]) tramadol 50 mg tablet RxNorm: 246645 1 Tablet(s) PO Q4H as needed for pain 08/24/2015 10/01/2015 In active [SAVINGS FOR UNINSURED PATIENTS -- BIN:0 33555, PCN: ASPROD1, Group: [id number], ID# [id number], Process claim through HourlyNerd, for questions: . THIS IS NOT INSURANCE.] lisinopril 20 mg-hyd rochlorothiazide 25 mg tablet RxNorm: 399492 1 Tablet(s) PO daily TAKE 1 TABLET BY MOUTH DAILY 08/24/2015 10/22/2015 Inactive levothyroxine 175 mc g tablet RxNorm: 806582 1 Tablet(s) PO daily 08/24/2015 11/24/2015 Inactive ProAir HFA 90 mcg/ac tuation aerosol inhaler RxNorm: 000661 1-2 Puff(s) INH PRN I NHALE ONE TO TWO PUFFS BY MOUTH FOUR TIMES A DAY NEEDED FOR ASTHMA 08/24/2015 12/01/2015 In active ProAir HFA 90 mcg/ac tuation aerosol inhaler RxNorm: 2041422 INHALE ONE TO TWO PU FFS BY MOUTH FOUR TIMES A DAY NEEDED FOR ASTHMA 08/17/2015 08/23/2015 Inactive Advair Diskus 250 mc g-50 mcg/dose powder for inhalation RxNorm: 5942685 1 Puff(s) INH BID 07/20/2015 07/19/2015 Inactive Advair Diskus 250 mc g-50 mcg/dose powder for inhalation RxNorm: 9036463 1 Puff(s) INH BID 07/20/2015 11/16/2015 Inactive tramadol 50 mg tablet RxNorm: 717622 1 Tablet(s) PO Q4H as needed for pain 07/10/2015 08/17/2015 In active [SAVINGS FOR UNINSURED PATIENTS -- BIN:0 70674, PCN: ASPROD1, Group: AME08, ID# [id number], Process claim through Wozityouact, for questions: . THIS IS NOT INSURANCE.] Zithromax Z-Linus 250 mg tablet RxNorm: 049536 1 Tablet(s) PO UD 07/10/2015 01/18/2016 Inactive Keflex 500 mg capsule RxNorm: 164982 1 Capsule(s) PO TID 06/01/2015 06/07/2015 Inactive mupirocin 2 % topica l ointment RxNorm: 661532 1 Application TOP TID 06/01/2015 06/10/2015 Inactive lisinopril 20 mg-hyd rochlorothiazide 25 mg tablet RxNorm: 969168 TAKE 1 TABLET BY MOUT H DAILY 05/30/2015 08/23/2015 Inactive lisinopril 20 mg-hyd rochlorothiazide 25 mg tablet RxNorm: 864852 1 Tablet(s) PO daily 05/29/2015 11/24/2015 Inactive [SAVINGS FOR UNINSURED PATIENTS -- BIN:0 04132, PCN: ASPROD1, Group: AME08, ID# [id number], Process claim through HourlyNerd, for questions: . THIS IS NOT INSURANCE.] lorazepam 1 mg tablet RxNorm: 906365 Tablet(s) TAKE TWO TABLETS BY MOUTH AT B EDTIME AND ONE TABLET DAILY NEEDED 04/17/2015 07/13/2015 Inactive (Response to an electronic controlled substance refill request - [facility]: [id number]) levothyroxine 200 mc g tablet RxNorm: 597292 1 Tablet(s) PO daily 03/12/2015 08/23/2015 Inactive [SAVINGS FOR UNINSURED PATIENTS -- BIN:0 59850, PCN: ASPROD1, Group: AME08, ID# [id number], Process claim through MedIConverginact, for questions: . THIS IS NOT INSURANCE.] lisinopril 20 mg-hyd rochlorothiazide 25 mg tablet RxNorm: 104781 1 Tablet(s) PO daily 03/11/2015 05/28/2015 Inactive [SAVINGS FOR UNINSURED PATIENTS -- BIN:0 76633, PCN: ASPROD1, Group: [id number], ID# [id number], Process claim through HourlyNerd, for questions: . THIS IS NOT INSURANCE.] levothyroxine 175 mc g tablet RxNorm: 255363 1 Tablet(s) PO daily 03/09/2015 03/11/2015 Inactive recheck blood in 3 months- THIS IS CORRE CT DOSAGE levothyroxine 175 mc g tablet RxNorm: 958568 1 Tablet(s) PO daily 03/09/2015 03/08/2015 Inactive recheck blood in 3 months levothyroxine 150 mc g tablet RxNorm: 425990 1 Tablet(s) PO daily 03/09/2015 03/08/2015 Inactive recheck blood in 3 months lorazepam 1 mg tablet RxNorm: 342084 TAKE TWO TABLETS BY MOUTH AT BEDTIME AND ONE TABLET DAILY NEEDED 12/25/2014 01/22/2015 Inactive (Response to an electronic controlled substance refill request - RxReferenceNumber: [id number]) lorazepam 1 mg tablet RxNorm: 827253 Tablet(s) TAKE TWO TABLETS BY MOUTH EVER Y NIGHT AT BEDTIME AND TAKE ONE TABLET BY MOUTH DAILY NEEDED 12/23/2014 12/25/2014 Inactive (Response to an electronic controlled north bstance refill request - RxReferenceNumber: [id number]) levothyroxine 150 mc g tablet RxNorm: 580956 1 Tablet(s) PO daily 12/12/2014 03/08/2015 Inactive recheck blood in 3 months Diflucan 150 mg tablet RxNorm: 608559 1 Tablet(s) PO every other day (start af ter finished with Cipro) 11/17/2014 08/23/2015 Inactive tramadol 50 mg tablet RxNorm: 174748 1 Tablet(s) PO Q4H as needed for pain 11/10/2014 12/17/2014 In active [SAVINGS FOR UNINSURED PATIENTS -- BIN:0 66028, PCN: ASPROD1, Group: AME08, ID# [id number], Process claim through HourlyNerd, for questions: . THIS IS NOT INSURANCE.] Cipro 500 mg tablet RxNorm: 485446 1 Tablet(s) PO BID 10/23/2014 10/29/2014 Inactive Flagyl 500 mg tablet RxNorm: 029017 1 Tablet(s) PO TID 10/23/2014 10/29/2014 Inactive Cipro 500 mg tablet RxNorm: 498608 1 Tablet(s) PO BID 10/23/2014 10/22/2014 Inactive Flagyl 500 mg tablet RxNorm: 535342 1 Tablet(s) PO TID 10/23/2014 10/22/2014 Inactive Diflucan 150 mg tablet RxNorm: 199886 1 Tablet(s) PO every other day (start af ter finished with Cipro) 10/23/2014 11/16/2014 Inactive lorazepam 1 mg tablet RxNorm: 026981 TAKE TWO TABLETS BY MOUTH EVERY NIGHT AT BEDTIME AND TAKE ONE TABLET BY MOUTH DAILY NEEDED 10/21/2014 10/21/2014 Inactive (Response to an electronic controlled north bstance refill request - RxReferenceNumber: [id number]) lorazepam 1 mg tablet RxNorm: 416932 TAKE TWO TABLETS BY MOUTH EVERY NIGHT AT BEDTIME AND TAKE ONE TABLET BY MOUTH DAILY NEEDED 10/21/2014 11/18/2014 Inactive (Response to an electronic controlled north bstance refill request - RxReferenceNumber: [id number]) lorazepam 1 mg tablet RxNorm: 987688 Tablet(s) TAKE TWO TABLETS BY MOUTH AT B EDTIME, ALSO TAKE ONE TABLET BY MOUTH DAILY NEEDED 10/13/2014 10/21/2014 Inactive (Res ponse to an electronic controlled substance refill request - RxReferenceNumber: [id number]) ProAir HFA 90 mcg/ac tuation aerosol inhaler RxNorm: 4464776 1-2 inhale INH QID a s needed ASTHMA 10/13/2014 12/26/2014 Inactive ProAir HFA 90 mcg/ac tuation aerosol inhaler RxNorm: 8641816 1-2 inhale INH QID a s needed ASTHMA 09/18/2014 10/12/2014 Inactive meloxicam 7.5 mg tablet RxNorm: 450401 1 Tablet(s) PO daily 09/18/2014 03/10/2015 Inactive [SAVINGS FOR UNINSURED PATIENTS -- BIN:0 67774, PCN: ASPROD1, Group: [id number], ID# [id number], Process claim through HourlyNerd, for questions: . THIS IS NOT INSURANCE.] sulfamethoxazole 800 mg-trimethoprim 160 mg tablet RxNorm: 264900 1 Tablet(s) PO BID 09/18/2014 10/07/2014 Inactive levothyroxine 175 mc g tablet RxNorm: 340579 1 Tablet(s) PO daily 09/17/2014 12/11/2014 Inactive levothyroxine 175 mc g tablet RxNorm: 452238 1 Tablet(s) PO daily 09/17/2014 09/16/2014 Inactive lorazepam 1 mg tablet RxNorm: 890175 Tablet(s) TAKE TWO TABLETS BY MOUTH AT B EDTIME, ALSO TAKE ONE TABLET BY MOUTH DAILY NEEDED 09/12/2014 10/11/2014 Inactive (Res ponse to an electronic controlled substance refill request - RxReferenceNumber: [id number]) lorazepam 1 mg tablet RxNorm: 772247 TAKE TWO TABLETS BY MOUTH AT BEDTIME, AL SO TAKE ONE TABLET BY MOUTH DAILY NEEDED 09/08/2014 09/11/2014 Inactive (Res ponse to an electronic controlled substance refill request - RxReferenceNumber: [id number]) meloxicam 7.5 mg tablet RxNorm: 700995 1 Tablet(s) PO daily 09/01/2014 09/17/2014 Inactive [SAVINGS FOR UNINSURED PATIENTS -- BIN:0 09021, PCN: ASPROD1, Group: AME08, ID# [id number], Process claim through HourlyNerd, for questions: . THIS IS NOT INSURANCE.] lisinopril 20 mg-hyd rochlorothiazide 25 mg tablet RxNorm: 364750 1 Tablet(s) PO daily 09/01/2014 12/29/2014 Inactive [SAVINGS FOR UNINSURED PATIENTS -- BIN:0 50979, PCN: ASPROD1, Group: AME08, ID# [id number], Process claim through HourlyNerd, for questions: . THIS IS NOT INSURANCE.] tramadol 50 mg tablet RxNorm: 591811 1 Tablet(s) PO Q4H as needed for pain 08/20/2014 11/07/2014 In active [SAVINGS FOR UNINSURED PATIENTS -- BIN:0 43644, PCN: ASPROD1, Group: AME08, ID# [id number], Process claim through MedImpact, for questions: . THIS IS NOT INSURANCE.] meloxicam 7.5 mg tablet RxNorm: 932252 1 Tablet(s) PO daily 08/14/2014 08/31/2014 Inactive [SAVINGS FOR UNINSURED PATIENTS -- BIN:0 59836, PCN: ASPROD1, Group: AME08, ID# [id number], Process claim through MedImpact, for questions: . THIS IS NOT INSURANCE.] lorazepam 1 mg tablet RxNorm: 564796 2 Tablet(s) PO QHS and 1 tab qd PRN 08/01/2014 09/08/2014 In active [SAVINGS FOR UNINSURED PATIENTS -- BIN:0 32653, PCN: ASPROD1, Group: AME08, ID# [id number], Process claim through MedImpact, for questions: . THIS IS NOT INSURANCE.] levothyroxine 200 mc g tablet RxNorm: 922242 1 Tablet(s) PO daily 07/31/2014 09/16/2014 Inactive [SAVINGS FOR UNINSURED PATIENTS -- BIN:0 86611, PCN: ASPROD1, Group: AME08, ID# [id number], Process claim through MedImpact, for questions: . THIS IS NOT INSURANCE.] lorazepam 1 mg tablet RxNorm: 209544 2 Tablet(s) PO QHS and 1 tab qd PRN No Start Date 07/31/2014 Inactive meloxicam 7.5 mg tablet RxNorm: 440782 1 Tablet(s) PO daily No Start Date 08/13/2014 Inactive lisinopril 20 mg-hyd rochlorothiazide 25 mg tablet RxNorm: 134233 1 Tablet(s) PO daily No Start Date 08/31/2014 Inactive levothyroxine 200 mc g tablet RxNorm: 458762 1 Tablet(s) PO daily No Start Date 07/30/2014 Inactive Diflucan 150 mg tablet RxNorm: 338167 1 Tablet(s) PO every other day No Start Date 10/22/2014 Inactive Zithromax Z-Linus 250 mg tablet RxNorm: 818677 1 Tablet(s) PO UD No Start Date 07/09/2015 Inactive tramadol 50 mg tablet RxNorm: 391985 1 Tablet(s) PO Q6 as needed No Start Date 08/19/2014 Inactive Medication Administered Medication Codes Instruc tions Start Date Status Kenalog 40 mg/mL suspension for injection RxNorm: 9696021 Milliliter 12/07/2016 No longer Active Kenalog 40 mg/mL suspension for injection RxNorm: 0336848 Milliliter 11/28/2016 No longer Active Immunizations Vaccine Codes Date Status Pneumococcal CVX: 33 09/1986 completed Tetanus, Diptheria, Pertussis CVX: 113 03/11/1987 completed Tetanus/Diptheria CVX: 113 03/11/1987 completed Influenza CVX: 141 03/11 completed Assessments Condition Codes Effectiv e Dates Essential (primary) hypertension ICD -10: I10 ICD-9: 401.9 01/26/2017 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 ICD-9: 244.8 01/26/2017 Low back pain ICD-10: M54.5 ICD-9: 724.2 01/26/2017 Mild persistent asthma with (acute) exacerbation ICD-10: J45.31 ICD-9: 493.12 12/07/2016 Other allergic rhinitis ICD-10: J30. 89 ICD-9: 477.8 12/07/2016 Acute bronchitis due to other specified organisms ICD-10: J20.8 ICD-9: 466.0 11/15/2016 Other acute sinusitis ICD-10: J01.80 ICD-9: 461.8 10/17/2016 Hypothyroidism, unspecified ICD-10: E03.9 ICD-9: 244.9 09/27/2016 Other specified hypothyroidism ICD-1 0: E03.8 ICD-9: [...] Visit Reason For Visit Effective Dates Notes back pain 01/26/2017 cough 12/07/2016 nasal allergies [...] Observation Code Item Item Code Result Date Lipid Ord30 CHOL 194 mg/dL 09/28/2016 Lipid [...] 28.8 pg 09/28/2016 Cbc With Differential Ord2 [place]% 7.2 % 09/28/2016 Cbc With Differential Ord2 [...] 1.41 K/ul 09/28/2016 Cbc With Differential Ord2 [place] ABS# 0.5 K/ul 09/28/2016 Cbc With Differential Ord2 Eos ABS# 0.2 K/ul 09/28/2016 Cbc With Differential Ord2 Baso ABS# 0.0 K/ul 09/28/2016 Free T4 Uvs805 FREE T4 1.43 ng/dL 09/28/2016 Tsh Ord6 hTSH II 0.52 uIU/mL 09/28/2016 Comp Metabolic Mqv043 NA 140 mEq/L 09/28/2016 Comp Metabolic Pjo662 K 3.9 mEq/L 09/28/2016 Comp Metabolic Tas049 CL 104 mEq/L 09/28/2016 Comp Metabolic Hqm817 CO2 28.0 mEq/L 09/28/2016 Comp Metabolic Gne682 AN ION GAP 12 09/28/2016 Comp Metabolic Rqw127 GL UCOSE 97 mg/dL 09/28/2016 Comp Metabolic Wfq193 Cr eat 0.8 mg/dL 09/28/2016 Comp Metabolic Fep095 eG FR 79 ml/min/1.73m2 09/28 Comp Metabolic Dgv376 BUN 13 mg/dL 09/28/2016 Comp Metabolic Jri875 B/ C Ratio 17.1 Ratio 09/28/2016 Comp Metabolic Fbh863 CA LCIUM 8.9 mg/dL 09/28/2016 Comp Metabolic Kcn307 AL K PHOS 100 U/L 09/28/2016 Comp Metabolic Ysg622 T(SGOT) 12 U/L 09/28/2016 Comp Metabolic Cht312 AL T(SGPT) 9 U/L 09/28/2016 Comp Metabolic Jbj766 BI LI T 0.4 mg/dL 09/28/2016 Comp Metabolic Nwh815 AL BUMIN 4.1 g/dL 09/28/2016 Comp Metabolic Brm534 TP RO 6.6 g/dL 09/28/2016 Comp Metabolic Dlz109 GL OB 2.5 g/dL 09/28/2016 Comp Metabolic Zlz407 A/ G Ratio 1.6 Ratio 09/28/2016 Comp Metabolic Lph590 Os mo 279 mOsmo 09/28/2016 Tsh Ord6 hTSH II 0.47 uIU/mL 06/16/2016 Comp Metabolic Yvh905 NA 139 mEq/L 06/16/2016 Comp Metabolic Cbr832 K 4.3 mEq/L 06/16/2016 Comp Metabolic Npi647 CL 105 mEq/L 06/16/2016 Comp Metabolic Laj761 CO2 30.0 mEq/L 06/16/2016 Comp Metabolic Enm410 AN ION GAP 8 06/16/2016 Comp Metabolic Vwb120 GL UCOSE 90 mg/dL 06/16/2016 Comp Metabolic Cxu160 Cr eat 0.7 mg/dL 06/16/2016 Comp Metabolic Ejq151 eG FR 91 ml/min/1.73m2 06/16 Comp Metabolic Day215 BUN 15 mg/dL 06/16/2016 Comp Metabolic Tgm369 B/ C Ratio 22.4 Ratio 06/16/2016 Comp Metabolic Jmx154 CA LCIUM 8.8 mg/dL 06/16/2016 Comp Metabolic Ght547 AL K PHOS 79 U/L 06/16/2016 Comp Metabolic Gok502 T(SGOT) 13 U/L 06/16/2016 Comp Metabolic Ijv236 AL T(SGPT) 11 U/L 06/16/2016 Comp Metabolic Dau761 BI LI T 0.5 mg/dL 06/16/2016 Comp Metabolic Ili826 AL BUMIN 3.9 g/dL 06/16/2016 Comp Metabolic Grb349 TP RO 6.1 g/dL 06/16/2016 Comp Metabolic Dma495 GL OB 2.2 g/dL 06/16/2016 Comp Metabolic Vkp985 A/ G Ratio 1.8 Ratio 06/16/2016 Comp Metabolic Sre825 Os mo 278 mOsmo 06/16/2016 Lipid Ord30 [...] 57.5 % 06/16/2016 Cbc With Differential Ord2 Lymph% 31.4 % 06/16/2016 Cbc With Differential Ord2 MCV 87.0 fl 06/16/2016 Cbc With Differential Ord2 MCH 28.9 pg 06/16/2016 Cbc With Differential Ord2 [place]% 8.1 % 06/16/2016 Cbc With Differential Ord2 MCHC 33.3 pg 06/16/2016 Cbc With Differential Ord2 Eos% 2.8 % 06/16/2016 Cbc With Differential Ord2 Baso% 0.2 % 06/16/2016 Cbc With Differential Ord2 PLT 230 K/ul 06/16/2016 Cbc With Differential Ord2 RDW 15.0 % 06/16/2016 Cbc With Differential Ord2 Neut ABS# 3.12 K/ul 06/16/2016 Cbc With Differential Ord2 Lymph ABS# 1.70 K/ul 06/16/2016 Cbc With Differential Ord2 [place] ABS# 0.4 K/ul 06/16/2016 Cbc With Differential Ord2 Eos ABS# 0.2 K/ul 06/16/2016 Cbc With Differential Ord2 Baso ABS# 0.0 K/ul 06/16/2016 Free T4 Fnc375 FREE T4 1.42 ng/dL 06/16/2016 Free T4 Jqa596 FREE T4 1.34 ng/dL 03/04/2016 Tsh Ord6 hTSH II 0.56 uIU/mL 03/04/2016 Free T4 Pct155 FREE T4 1.19 ng/dL 01/27/2016 Tsh Ord6 hTSH II 0.98 uIU/mL 01/27/2016 Tsh Ord6 hTSH II 0.08 uIU/mL 11/23/2015 Free T4 Yzx073 FREE T4 1.69 ng/dL 11/23/2015 Cbc With Differential Ord2 WBC 5.3 K/uL [...] With Differential Ord2 RDW 13.9 % 08/21/2015 Tsh Ord6 hTSH II 0.07 uIU/mL 08/21/2015 Free T4 Htv142 FREE T4 1.78 ng/dL 08/21/2015 Comp Metabolic Kdj464 NA 139 mEq/L 08/21/2015 Comp Metabolic Hds101 K 4.3 mEq/L 08/21/2015 Comp Metabolic Vly905 CL 102 mEq/L 08/21/2015 Comp Metabolic Bbw897 CO2 27.0 mEq/L 08/21/2015 Comp Metabolic Qxl085 AN ION GAP 14 08/21/2015 Comp Metabolic Hms287 GL UCOSE 89 mg/dL 08/21/2015 Comp Metabolic Ytn058 Cr eat 0.7 mg/dL 08/21/2015 Comp Metabolic Mah551 eG FR 85 ml/min/1.73m2 08/21 Comp Metabolic Nnn472 BUN 14 mg/dL 08/21/2015 Comp Metabolic Nzj953 B/ C Ratio 19.7 Ratio 08/21/2015 Comp Metabolic Zfh355 CA LCIUM 9.5 mg/dL 08/21/2015 Comp Metabolic Tcc197 AL K PHOS 123 U/L 08/21/2015 Comp Metabolic Pcg239 T(SGOT) 13 U/L 08/21/2015 Comp Metabolic Lcw757 AL T(SGPT) 10 U/L 08/21/2015 Comp Metabolic Zat958 BI LI T 0.4 mg/dL 08/21/2015 Comp Metabolic Xhu998 AL BUMIN 4.1 g/dL 08/21/2015 Comp Metabolic Rxa826 TP RO 6.8 g/dL 08/21/2015 Comp Metabolic Zvn009 GL OB 2.7 g/dL 08/21/2015 Comp Metabolic Gjy220 A/ G Ratio 1.5 Ratio 08/21/2015 Comp Metabolic Ufx556 Os mo 277 mOsmo 08/21/2015 Lipid Ord30 CHOL 185 mg/dL 08/21/2015 Lipid Ord30 HDL 50.0 mg/dl 08/21/2015 Lipid Ord30 TRIG 88 mg/dL 08/21/2015 Lipid Ord30 LDL 117 mg/dL 08/21/2015 Lipid Ord30 C/HDL 3.7 Ratio 08/21/2015 Quick Strep Zuf2555 Quic k Strep Negative 07/08/2015 Free T4 Omu051 FREE T4 1.50 ng/dL 05/20/2015 Tsh Ord6 hTSH II 0.04 uIU/mL 05/20/2015 Review of Systems System Result Effective Dates Constitutional No recent illness 01/26/2017 Constitutional No [...] retractions 07/31/2014 None Procedures Procedure Codes Date THER/PROPH/DIAG INJ SC/IM CPT-4: 72064Epgtisr 12/07/2016 TRIAMCINOLONE ACET I [place] NOS CPT-4: G6204Nboekih 12/07/2016 THER/PROPH/DIAG INJ SC/IM CPT-4: 62850Kokpdbo 11/28/2016 TRIAMCINOLONE ACET I [place] NOS CPT-4: J2467Ywzllbb 11/28/2016 Vital Signs Date Vital 01/26/2017 Blood Pressure 1: 136/68 Code: 8480-6 Heart Rate 1: 64 bpm Height: 5'6" SpO2: 96% Weight: 12/07/2016 Blood Pressure 1: 130/72 Code: 8480-6 BMI: 39.7 Code: 54510-7 Heart Rate 1: 73 bpm Height: 5'6" SpO2: 93% Temperature: 36.8 (C ) / 98.3 (F) Weight: 246 lbs 11/28/2016 Blood Pressure 1: 138/60 Code: 8480-6 BMI: 39.7 Code: 99788-5 Heart Rate 1: 81 bpm Height: 5'6" SpO2: 97% Weight: 246 lbs 11/15/2016 Blood Pressure 1: 134/78 Code: 8480-6 BMI: 39.7 Code: 91312-1 Heart Rate 1: 75 bpm Height: 5'6" SpO2: 93% Temperature: 36.8 (C ) / 98.2 (F) Weight: 246 lbs 10/17/2016 Blood Pressure 1: 120/64 Code: 8480-6 BMI: 38.4 Code: 10804-7 Heart Rate 1: 69 bpm Height: 5'6" SpO2: 98% Temperature: 37.2 (C ) / 98.9 (F) Weight: 238 lbs 09/28/2016 Blood Pressure 1: 158/76 Code: 8480-6 BMI: 39.4 Code: 92330-3 Heart Rate 1: 71 bpm Height: 5'6" SpO2: 97% Weight: 244 lbs 06/29/2016 Blood Pressure 1: 124/60 Code: 8480-6 BMI: 38.7 Code: 33777-2 Heart Rate 1: 71 bpm Height: 5'6" SpO2: 98% Weight: 240 lbs 06/01/2016 Blood Pressure 1: 120/62 Code: 8480-6 BMI: 38.6 Code: 51861-0 Heart Rate 1: 76 bpm Height: 5'6" SpO2: 98% Weight: 239 lbs 05/11/2016 Blood Pressure 1: 140/80 Code: 8480-6 BMI: 38.1 Code: 26391-7 Heart Rate 1: 88 bpm Height: 5'6" SpO2: 97% Weight: 236 lbs 04/05/2016 Blood Pressure 1: 142/80 Code: 8480-6 BMI: 38.4 Code: 75866-0 Heart Rate 1: 96 bpm Height: 5'6" SpO2: 98% Weight: 238 lbs 04/01/2016 Blood Pressure 1: 136/88 Code: 8480-6 BMI: 39.2 Code: 95185-4 Heart Rate 1: 86 bpm Height: 5'6" SpO2: 96% Weight: 243 lbs 01/26/2016 Blood Pressure 1: 124/76 Code: 8480-6 BMI: 39.2 Code: 79842-3 Heart Rate 1: 76 bpm Height: 5'6" SpO2: 97% Weight: 243 lbs 12/21/2015 Blood Pressure 1: 120/64 Code: 8480-6 BMI: 37.0 Code: 61829-8 Heart Rate 1: 98 bpm Height: 5'6" SpO2: 97% Weight: 229 lbs 10/12/2015 Blood Pressure 1: 150/64 Code: 8480-6 BMI: 37.4 Code: 64216-5 Heart Rate 1: 70 bpm Height: 5'6" SpO2: 94% Weight: 232 lbs 08/24/2015 Blood Pressure 1: 128/74 Code: 8480-6 BMI: 36.8 Code: 83751-3 Heart Rate 1: 88 bpm Height: 5'6" SpO2: 94% Temperature: 36.8 (C ) / 98.3 (F) Weight: 228 lbs 06/01/2015 Blood Pressure 1: 134/68 Code: 8480-6 BMI: 36.0 Code: 45986-6 Heart Rate 1: 70 bpm Height: 5'6" SpO2: 98% Weight: 223 lbs 05/21/2015 Blood Pressure 1: 126/72 Code: 8480-6 BMI: 35.2 Code: 81831-8 Heart Rate 1: 63 bpm Height: 5'6" SpO2: 95% Weight: 218 lbs 5 oz 03/26/2015 Blood Pressure 1: 140/62 Code: 8480-6 BMI: 35.3 Code: 67560-7 Heart Rate 1: 68 bpm Height: 5'6" Weight: 219 lbs 03/11/2015 Blood Pressure 1: 130/80 Code: 8480-6 BMI: 34.9 Code: 10402-3 Heart Rate 1: 76 bpm Height: 5'6" Temperature: 37.1 (C ) / 98.7 (F) Weight: 216 lbs 12/11/2014 Blood Pressure 1: 134/62 Code: 8480-6 BMI: 34.2 Code: 93451-5 Heart Rate 1: 72 bpm Height: 5'6" Weight: 212 lbs 09/18/2014 Blood Pressure 1: 148/80 Code: 8480-6 BMI: 34.7 Code: 58367-8 Heart Rate 1: 68 bpm Height: 5'6" Weight: 215 lbs 07/31/2014 Blood Pressure 1: 124/72 Code: 8480-6 BMI: 36.2 Code: 55701-9 Heart Rate 1: 68 bpm Height: 5'6" Weight: 224 lbs Functional Status No Functional Status data History of Present Illness Symptom Name Status Resu lt Effective Date Notes back pain Location in th e midline [...] Severity mi ld 09/28/2016 None hypothyroid Quality chrome polisher jamee 09/28/2016 None hypothyroid Onset and Resolution [...] Severity mi ld 06/01/2016 None hypothyroid Quality chrome polisher jamee 06/01/2016 None hypothyroid Onset and Resolution [...] and Resolution resolved 04/05/2016 None hypothyroid Quality chrome polisher jamee 04/05/2016 None hypothyroid Onset and Resolution [...] a ssociated factors 10/12/2015 None hypothyroid Quality chrome polisher jamee 08/24/2015 None hypothyroid Onset and Resolution [...] Severity mod erate 06/01/2015 None hypothyroid Quality chrome polisher jamee 05/21/2015 None hypothyroid Onset of Symptom [...] Findings brittle nails 03/11/2015 None hypothyroid Quality chrome polisher jamee 03/11/2015 None hypothyroid Quality stab le [...] Encounters Encounter Performer Loca tion Codes Date ([id number]) 25762 EST. P ATIENT, LEVEL IV Diagnosis: Essential (primary) hypertension[ICD10: I10] Diagnosis: Atrophy of thyroid (acquired)[ICD10: E03.4] Diagnosis: Low back pain[ICD10: M54.5] Damari Finn MD, [facility] CPT-4: 82915 01/26/2017 32642 EST. PATIENT, LEVEL III Diagnosis: Other allergic rhinitis[ICD10: J30.89] Diagnosis: Mild persistent asthma with (acute) exacerbation[ICD10: J45.31] Mishel Finn MD [facility] CPT-4: 02136 12/07/2016 43873 EST. PATIENT, LEVEL III Diagnosis: Mild persistent asthma with (acute) exacerbation[ICD10: J45.31] Mishel Finn MD [facility] CPT-4: 42427 11/28/2016 85522 EST. PATIENT, LEVEL III Diagnosis: Mild persistent asthma with (acute) exacerbation[ICD10: J45.31] Diagnosis: Acute bronchitis due to other specified organisms[ICD10: J20.8] Mishel Finn MD, [facility] CPT-4: 75508 11/15/2016 04433 EST. PATIENT, LEVEL IV Diagnosis: Other acute sinusitis[ICD10: J01.80] Diagnosis: Other allergic rhinitis[ICD10: J30.89] Diagnosis: Mild persistent asthma with (acute) exacerbation[ICD10: J45.31] Mishel Finn MD, [facility] CPT-4: 07744 10/17/2016 ([id number]) 73237 EST. P ATIENT, LEVEL IV Diagnosis: Essential (primary) hypertension[ICD10: I10] Diagnosis: Low back pain[ICD10: M54.5] Damari Finn MD, [facility] CPT-4: 11422 09/28/2016 62552 EST. PATIENT, LEVEL III Diagnosis: Tinea barbae and tinea capitis[ICD10: B35.0] Diagnosis: Other specified hypothyroidism[ICD10: E03.8] Mishel Finn MD, [facility] CPT-4: 75405 06/29/2016 ([id number]) 02701 EST. P ATIENT, LEVEL IV Diagnosis: Essential (primary) hypertension[ICD10: I10] Diagnosis: Atrophy of thyroid (acquired)[ICD10: E03.4] Diagnosis: Rash and other nonspecific skin eruption[ICD10: R21] Damari Finn MD, [facility] CPT-4: 63692 06/01/2016 ([id number]) 00657 EST. P ATIENT, LEVEL III Diagnosis: Cellulitis of groin[ICD10: L03.314] Damari Finn MD, [facility] CPT- 4: 58874 05/11/2016 ([id number]) 05918 EST. P ATIENT, LEVEL IV Diagnosis: Hypothyroidism, unspecified[ICD10: E03.9] Diagnosis: Candidiasis of vulva and vagina[ICD10: B37.3] Diagnosis: Essential (primary) hypertension[ICD10: I10] Diagnosis: Low back pain[ICD10: M54.5] Lynn Finn MD, [facility] CPT- 4: 31156 04/05/2016 91082 EST. PATIENT, LEVEL III Diagnosis: Other acute sinusitis[ICD10: J01.80] Diagnosis: Rash and other nonspecific skin eruption[ICD10: R21] Mishel Finn MD, [facility] CPT-4: 70186 04/01/2016 ([id number]) 83368 EST. P ATIENT, LEVEL IV Diagnosis: Essential (primary) hypertension[ICD10: I10] Diagnosis: Hypothyroidism, unspecified[ICD10: E03.9] Diagnosis: Low back pain[ICD10: M54.5] Diagnosis: Other obesity due to excess calories[ICD10: E66.09] Lynn Finn MD, [facility] CPT-4: 68011 01/26/2016 99756 EST. PATIENT, LEVEL IV Diagnosis: Essential (primary) hypertension[ICD10: I10] Diagnosis: Cutaneous abscess of face[ICD10: L02.01] Mishel Finn MD, [facility] CPT-4: 79047 12/21/2015 ([id number]) 39262 EST. P ATIENT, LEVEL III Diagnosis: Cutaneous abscess of groin[ICD10: L02.214] Diagnosis: Hypothyroidism, unspecified[ICD10: E03.9] Lynn Finn MD, [facility] CPT-4: 52289 10/12/2015 ([id number]) 52533 EST. P ATIENT, LEVEL III Diagnosis: Essential (primary) hypertension[ICD10: I10] Diagnosis: Hypothyroidism, unspecified[ICD10: E03.9] Diagnosis: Allergic rhinitis, unspecified[ICD10: J30.9] Lynn Finn MD, [facility] CPT-4: 12463 08/24/2015 ([id number]) 13698 EST. P ATIENT, LEVEL III Diagnosis: Skin infection[ICD9: 686.9] Damari Finn MD, [facility] CPT-4: 58781 06/01/2015 ([id number]) 68956 EST. P ATIENT, LEVEL III Diagnosis: Hypothyroidism[ICD9: 244.9] Diagnosis: ESSENTIAL HYPERTENSION[ICD9: 401.9] Damari Finn MD, [facility] CPT- 4: 13429 05/21/2015 ([id number]) 94779 EST. P ATIENT, LEVEL III Diagnosis: Hypothyroidism[ICD9: 244.9] Diagnosis: Fingernail abnormalities[ICD9: 703.8] Lynn Finn MD, [facility] CPT-4: 40479 03/26/2015 ([id number]) 80270 EST. P ATIENT, LEVEL II Diagnosis: Hypothyroidism[ICD9: 244.9] Maritza Finn MD, [facility] CPT-4: 11996 03/11/2015 ([id number]) 42267 EST. P ATIENT, LEVEL IV Diagnosis: ESSENTIAL HYPERTENSION[ICD9: 401.9] Diagnosis: Low back pain[ICD9: 724.2] Diagnosis: Hypothyroidism[ICD9: 244.9] Damari Finn MD, [facility] CPT-4: 75284 12/11/2014 ([id number]) 16574 EST. P ATIENT, LEVEL IV Diagnosis: Hidradenitis suppurativa[ICD9: 705.83] Diagnosis: ESSENTIAL HYPERTENSION[ICD9: 401.9] Diagnosis: Low back pain[ICD9: 724.2] Diagnosis: Lumbar spinal stenosis[ICD9: 724.02] Diagnosis: HYPOTHYROIDISM[ICD9: 244.9] Damari Finn MD, [facility] CPT-4: 52586 09/18/2014 Office outpatient ne w 30 minutes Diagnosis: ESSENTIAL HYPERTENSION[ICD9: 401.9] Diagnosis: Hypothyroidism[ICD9: 244.9] Diagnosis: Low back pain[ICD9: 724.2] [facility] CPT- 4: 77482 07/31/2014 Plan of Care Planned Activity Notes C odes Status Date Visit Plan: Hypertension - well controll ed [...] improve. 01/26/2017 [phone] ([facility] Moderate 01/26/2017 Patient Education: [...] or concerns. 12/07/2016 Appointment: Mishel Balderrama [facility] [place] (15 min) Moderate 12/07/2016 Patient Education: Patient [...] changes. 11/28/2016 Visit Plan: Asthma Exacerbation - Asthma [...] for dyspnea/persistent wheezing/asthma symptoms. 11/28/2016 Appointment: Mishel Balderrama: [facility] [place] (15 min) Moderate 11/28/2016 Patient Education: Patient Medication Summary Completed 11/28/2016 Appointment: Mishel Balderrama: [facility] [place] (15 min) Moderate 11/24/2016 Visit Plan: Bronchitis [...] changes. 11/15/2016 Appointment: Mishel Balderrama WPtel: [phone] [facility] (30 min) Complex 11/15/2016 Patient [...] changes. 10/17/2016 Appointment: Mishel Balderrama WPtel: [phone] [facility] (30 min) Complex 10/17/2016 Patient [...] pain - prn tylenol 09/28/2016 Appointment: Damari Finnl: [phone] [facility] (15 min) Moderate 09/28/2016 Patient Education: Patient [...] control. 06/29/2016 Appointment: Lynn Arenas WPtel: [phone] [phone] (15 min) Moderate 06/29/2016 Patient [...] 6 months based on previous levels of control.[facility] - rx for fluconazole 06/01/2016 App[facility]ment: [phone] ([facility] min) Moderate 06/01/2016 Patient Education: Patient Medication Summary Completed 06/01/2016 Patient Education: Obesity Completed 06/01/2016 Visit Plan: Cellulitis - continue with o ral antibiotics as previously directed, return to clinic as previously directed, call for acute change in symptoms, worsening redness, warmth, discharge. 05/11/2016 App[facility]ment: [phone] ([facility] min) Moderate 05/11/2016 Patient Education: [...] or with any concerns. 04/01/2016 Appointment: Lynn Areans [phone] [facility] [phone] [place] (30 min) Complex 04/01/2016 Patient Education: Patient Medication Summary Completed 04/01/2016 Patient Education: Obesity Completed 04/01/2016 Appointment: Lynn Arenas [facility]el[phone] [facility] [phone] (30 min) Complex 03/29/2016 Visit Plan: Hypertension [...] previous levels of control.Low back pain-refill tramadol Wfamy-nekrlpngqr-qfpbkybi resolved 01/26/2016 Appointment: Lynn Arenas WPtel: [facility] [address] [phone] (30 min) Complex 01/26/2016 Patient Education: Patient Medication Summary Completed 01/26/2016 Patient Education: Obesity Completed 01/26/2016 Care Plan: BMI Above normal followup RADHA F-MGMT EDUC & TRAIN 1 PT Pending 01/26/2016 Care Plan: Referral Order SNOMED-CT : [id number] Pending 01/07/2016 Appointment: Lynn Arenas WPtel: [facility] [address] [facility] [phone] (15 min) Moderate 12/24/2015 Visit Plan: Hypertension [...] improving. 06/01/2015 Appointment: Damari Finn WPtel: [address] [place], [place] [address] (15 min) Moderate 06/01/2015 Patient Education: Patient [...] Pending 03/26/2015 Visit Plan: Hypothyroidism- pt with chrome polisher jamee hypothyroidism, After consultation with Dr. Finn, [...] refill tramadol 12/11/2014 Appointment: Damari Finn WPtel: [phone] [facility] [facility] follow up 12/11/2014 Patient Education: Patient Medication Summary Completed 12/11/2014 Patient Education: Hypertension Completed 12/11/2014 Appointment: Damari Finn WPtel: [facility] [address] follow up 11/27/2014 Visit Plan: Hidradenitis Suppurativa [...] to get her back MRI done at [facility] in [place] as that is where her specialist will be once we get her an appt with one of the local Neurosurgeons. 09/18/2014 Appointment: Damari Finn WPtel[facility] [phone] [facility] Follow up 09/18/2014 Patient Education: Patient [...] [phone] [phone] New Patient 07/31/2014 Patient Education: Patient Medication Summary Completed 07/31/2014 Referral: Artur Daugherty she w ill be calling and making her appt Initiated Referral: Artur Daugherty Referral Initiated Instructions Comment . Skin infection - r ecommended treatment with oral antibiotic and topical antibiotic. Pt to call if nor improving. increase synthroid t o 200 mcg . [...] of control. Rahs - rx for fluconazole hidradenitis suppura tiva USE ANTIBACTERIAL SOAP ASTRINGENT [...] to get her back MRI done at [facility] in [place] as that is where her specialist will be once we get her an appt with one of the local Neurosurgeons. . Tinea of the scalp - will [...] in medications. Back pain - prn tylenol Declined Procedure: (87277) FLU VAC NO PRSV 4 JUSTYNA 3 YRS+; Declined Reason: refused Physical therapy at [facility] . Hypertension - well controlled - oleg [...] change in symptoms, worsening redness, warmth, discharge. Start zyrtec - one d aily Steroid shot today in office Mucinex as needed for congestion cough syrup Let me know if it is not improving. . Asthma Exacerbation - Asthma is a chrome polisher jamee problem for this patient, however, the [...] . Asthma Exacerbation - Asthma is a chrome polisher jamee problem for this patient, however, the [...] control. Chronic back pain - refill tramadol Check thyroid on Feb. Will refill blood [...] to Dr. Daugherty. Will refer pt. . Brittle fingernail s-erythema of fingernails-nail sample [...] worsen, or with any questions or concerns. CORICIDIN HBP . Hypertension - well [...] the nasal steroid allergy spray. Coricidin HBP I will call your tra catracho to [...] of over-medication. Yeast infection-RX for diflucan . Bronchitis - acute case of bronchitis [...] patient is stable, monitor for acute changes. tramadol-Dillons . Hypertension - well controlled - [...] levels of control. Low back pain-refill tramadol Boafe-ibsvlzqdlj-lqpkaibb resolved bactroban ointment t o sore twice [...]
--- OUTSIDE RECORDS SUMMARY | 2020-02-20 19:17 | XMS REPORT | CCD ---
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 Unknown Has never used illegal drugs 014 Allergies, Adverse Reactions, Alerts Substance Reaction Codes Entered Date Inactivated Date Status * NO KNOWN FOOD BEVERLY RGIES Unknown 07/31/2014 No Inactive Date Active bactrim hives, rash RxNorm: 647873 04/05/2016 No Inactive Date Active Past Medical [...] Fill Instructions lorazepam 1 mg tablet RxNorm: 916771 Tablet(s) TAKE TWO TABLETS BY MOUTH AT B EDTIME NEEDED FOR INSOMNIA AND ONE TABLET DAILY NEEDED ANXIETY 01/04/2019 03/04/2019 Active tramadol 50 mg tablet RxNorm: 323091 1 Tablet(s) PO Q4 PRN as needed for pain 12/05/2018 01/13/2019 Ac tive Keflex 500 mg capsule RxNorm: 300210 1 Capsule(s) PO TID 12/05/2018 12/11/2018 Inactive ciprofloxacin 0.3 % eye drops RxNorm: 063101 INSTILL TWO DROPS TO THE AFFECTED EYE(S) THREE TIMES A DAY 11/23/2018 12/25/2018 Inactive levothyroxine 137 mc g tablet RxNorm: 521017 1 Tablet(s) PO daily TAKE ONE TABLET BY MOUTH DAILY ON AN EMPTY STOMACH 10/30/2018 01/22/2020 Active ProAir HFA 90 mcg/ac tuation aerosol inhaler RxNorm: 6725658 1-2 Puff(s) INH Q4 P RN INHALE 1 TO 2 PUFFS FOUR TIMES A DAY NEEDED FOR ASTHMA 10/30/2018 01/27/2019 Active tramadol 50 mg tablet RxNorm: 652803 1 Tablet(s) PO Q4 PRN as needed for pain 10/29/2018 12/04/2018 In active levothyroxine 125 mc g tablet RxNorm: 804370 1 Tablet(s) PO daily TAKE ONE TABLET BY MOUTH DAILY ON AN EMPTY STOMACH 09/06/2018 10/29/2018 Inactive lorazepam 1 mg tablet RxNorm: 387087 Tablet(s) TAKE TWO TABLETS BY MOUTH AT B EDTIME NEEDED FOR INSOMNIA AND ONE TABLET DAILY NEEDED ANXIETY 09/06/2018 11/02/2018 Inactive tramadol 50 mg tablet RxNorm: 014232 1 Tablet(s) PO Q4 PRN as needed for pain 09/06/2018 10/15/2018 In active tramadol 50 mg tablet RxNorm: 787111 1 Tablet(s) PO Q4 PRN as needed for pain 07/06/2018 08/14/2018 In active ciprofloxacin 0.3 % eye drops RxNorm: 597707 2 Drop(s) ophthalmic (eye) TID 06/28/2018 07/07/2018 In active lorazepam 1 mg tablet RxNorm: 640640 Tablet(s) TAKE TWO TABLETS BY MOUTH AT B EDTIME NEEDED FOR INSOMNIA AND ONE TABLET DAILY NEEDED ANXIETY 06/28/2018 08/26/2018 Inactive doxycycline hyclate 100 mg tablet RxNorm: 3559370 1 Tablet(s) PO BID 06/28/2018 07/04/2018 Inactive tramadol 50 mg tablet RxNorm: 208341 1 Tablet(s) PO Q4 PRN as needed for pain 06/13/2018 07/05/2018 In active lorazepam 1 mg tablet RxNorm: 522977 Tablet(s) TAKE TWO TABLETS BY MOUTH AT B EDTIME NEEDED FOR INSOMNIA AND ONE TABLET DAILY NEEDED ANXIETY 05/23/2018 06/27/2018 Inactive tramadol 50 mg tablet RxNorm: 327214 1 Tablet(s) PO Q4 PRN as needed for pain 05/23/2018 06/12/2018 In active levothyroxine 125 mc g tablet RxNorm: 120894 Tablet(s) TAKE ONE TA BLET BY MOUTH DAILY ON AN EMPTY STOMACH 05/23/2018 09/05/2018 Inactive tramadol 50 mg tablet RxNorm: 384181 1 Tablet(s) PO Q4 PRN as needed for pain 05/17/2018 05/22/2018 In active levothyroxine 125 mc g tablet RxNorm: 930926 TAKE ONE TABLET BY MO UT DAILY 05/15/2018 06/27/2018 In active levothyroxine 125 mc g tablet RxNorm: 200650 TAKE ONE TABLET BY MO UT DAILY 05/15/2018 06/27/2018 In active tramadol 50 mg tablet RxNorm: 128007 1 Tablet(s) PO Q4 PRN as needed for pain 04/30/2018 05/16/2018 In active Advair Diskus 100 mc g-50 mcg/dose powder for inhalation RxNorm: 3367434 1 Puff(s) INH BID 04/06/2018 No Stop Date Active Symbicort 80 mcg-4.5 mcg/actuation HFA aerosol inhaler RxNorm: 9432723 2 Puff(s) INH BID 04/06/2018 No Stop Date Active Advair Diskus 250 mc g-50 mcg/dose powder for inhalation RxNorm: 8184213 1 Puff(s) INH BID 04/05/2018 09/01/2018 Inactive Zyrtec 10 mg tablet RxNorm: 1938289 1 Tablet(s) PO daily x1 week then PRN 04/05/2018 08/02/2018 In active lisinopril 20 mg-hyd rochlorothiazide 25 mg tablet RxNorm: 884362 Tablet(s) TAKE ONE TABLET BY MOUTH DAILY 04/05/2018 10/29/2018 Inactive Zyrtec 10 mg tablet RxNorm: 8568674 1 Tablet(s) PO daily 04/04/2018 05/03/2018 Inactive tramadol 50 mg tablet RxNorm: 617462 1 Tablet(s) PO Q4 PRN as needed for pain 03/13/2018 04/21/2018 In active lorazepam 1 mg tablet RxNorm: 376941 Tablet(s) TAKE TWO TABLETS BY MOUTH AT B EDTIME NEEDED FOR INSOMNIA AND ONE TABLET DAILY NEEDED ANXIETY 03/02/2018 04/30/2018 Inactive levothyroxine 125 mc g tablet RxNorm: 013803 1 Tablet(s) PO daily 02/06/2018 05/06/2018 Inactive levothyroxine 125 mc g tablet RxNorm: 770210 TAKE ONE TABLET BY MO [facility] DAILY ON AN EMPTY STOMACH 02/06/2018 05/22/2018 Inactive tramadol 50 mg tablet RxNorm: 139398 1 Tablet(s) PO Q4 PRN as needed for pain 01/26/2018 03/06/2018 In active lorazepam 1 mg tablet RxNorm: 262617 Tablet(s) TAKE TWO TABLETS BY MOUTH AT B EDTIME NEEDED FOR INSOMNIA AND ONE TABLET DAILY NEEDED ANXIETY 01/23/2018 06/27/2018 Inactive Symbicort 80 mcg-4.5 mcg/actuation HFA aerosol inhaler RxNorm: 8965500 INH 01/05/2018 06/27/2018 In active tramadol 50 mg tablet RxNorm: 531775 1 Tablet(s) PO Q4 PRN as needed for pain 01/04/2018 01/25/2018 In active Advair Diskus 250 mc g-50 mcg/dose powder for inhalation RxNorm: 6413640 1 Puff(s) INH BID 11/29/2017 03/28/2018 Inactive hydrochlorothiazide 12.5 mg tablet RxNorm: 620770 1 Tablet(s) PO daily 11/29/2017 12/28/2017 In active tramadol 50 mg tablet RxNorm: 300418 1 Tablet(s) PO Q4 PRN as needed for pain 11/23/2017 01/01/2018 In active tramadol 50 mg tablet RxNorm: 004533 1 Tablet(s) PO Q4 PRN as needed for pain 10/06/2017 11/14/2017 In active lorazepam 1 mg tablet RxNorm: 074957 Tablet(s) TAKE TWO TABLETS BY MOUTH AT B EDTIME NEEDED FOR INSOMNIA AND ONE TABLET DAILY NEEDED ANXIETY 09/12/2017 06/27/2018 Inactive tramadol 50 mg tablet RxNorm: 627039 1 Tablet(s) PO Q4 PRN as needed for pain 09/12/2017 10/05/2017 In active tramadol 50 mg tablet RxNorm: 177876 1 Tablet(s) PO Q4 PRN as needed for pain 08/15/2017 09/11/2017 In active tramadol 50 mg tablet RxNorm: 680601 1 Tablet(s) PO Q4 PRN as needed for pain 06/29/2017 08/07/2017 In active ProAir HFA 90 mcg/ac tuation aerosol inhaler RxNorm: 2232506 INHALE 1 TO 2 PUFFS FOUR TIMES A DAY NEEDED FOR ASTHMA 06/14/2017 11/10/2017 Inactive prednisone 20 mg tablet RxNorm: 326440 1 Tablet(s) PO BID x 2 days, then 1 pill daily x 3 days, then 1/2 pill every other day x 3 doses. 06/14/2017 09/11/2017 Inactive Kenalog 40 mg/mL madhavi pension for injection RxNorm: 2220874 1 Milliliter(s) Inj 06/14/2017 06/14/2017 In active Zyrtec 10 mg tablet RxNorm: 8764718 1 Tablet(s) PO daily 06/14/2017 07/13/2017 Inactive tramadol 50 mg tablet RxNorm: 527554 1 Tablet(s) PO Q4 PRN as needed for pain 06/08/2017 06/27/2017 In active [SAVINGS FOR UNINSURED PATIENTS -- BIN:0 78641, PCN: ASPROD1, Group: [id number], ID# [id number], Process claim through MedImpact, for questions: . THIS IS NOT INSURANCE.] tramadol 50 mg tablet RxNorm: 914122 1 Tablet(s) PO Q4 PRN as needed for pain 05/16/2017 06/04/2017 In active [SAVINGS FOR UNINSURED PATIENTS -- BIN:0 77433, PCN: ASPROD1, Group: [id number], ID# [id number], Process claim through MedISaleMoveact, for questions: . THIS IS NOT INSURANCE.] lorazepam 1 mg tablet RxNorm: 799971 Tablet(s) TAKE TWO TABLETS BY MOUTH AT B EDTIME NEEDED FOR INSOMNIA AND ONE TABLET DAILY NEEDED ANXIETY 05/16/2017 08/13/2017 Inactive Lasix 20 mg tablet RxNorm: 243966 1 Tablet(s) PO daily 05/10/2017 05/09/2017 Inactive Lasix 20 mg tablet RxNorm: 481225 1 Tablet(s) PO daily 05/10/2017 05/12/2017 Inactive potassium chloride E R 10 mEq tablet,extended release RxNorm: 474215 1 Tablet(s) PO daily while on the lasix 05/10/2017 05/09/2017 Inactive potassium chloride E R 10 mEq tablet,extended release RxNorm: 033543 1 Tablet(s) PO daily while on the lasix 05/10/2017 05/12/2017 Inactive prednisone 20 mg tablet RxNorm: 728931 1 Tablet(s) PO BID x 2 days, then 1 pill daily x 3 days, then 1/2 pill every other day x 3 doses. 04/19/2017 06/13/2017 Inactive Zithromax Z-Linus 250 mg tablet RxNorm: 459164 1 Tablet(s) PO UD 04/13/2017 06/28/2017 Inactive prednisone 20 mg tablet RxNorm: 540290 1 Tablet(s) PO BID 04/13/2017 04/17/2017 Inactive levothyroxine 125 mc g tablet RxNorm: 882503 1 Tablet(s) PO daily 04/11/2017 10/07/2017 Inactive tramadol 50 mg tablet RxNorm: 114625 1 Tablet(s) PO Q4 PRN as needed for pain 03/27/2017 04/15/2017 In active [SAVINGS FOR UNINSURED PATIENTS -- BIN:0 51329, PCN: ASPROD1, Group: [id number], ID# [id number], Process claim through [employer]Move[employer], for questions: . THIS IS NOT INSURANCE.] Kenalog 40 mg/mL madhavi pension for injection RxNorm: 0522079 1 Milliliter(s) Inj 03/27/2017 03/27/2017 In active tramadol 50 mg tablet RxNorm: 256690 1 Tablet(s) PO Q4H as needed for pain 03/09/2017 03/26/2017 In active [SAVINGS FOR UNINSURED PATIENTS -- BIN:0 03511, PCN: ASPROD1, Group: [id number], ID# [id number], Process claim through Loftware, for questions: . THIS IS NOT INSURANCE.] lisinopril 20 mg-hyd rochlorothiazide 25 mg tablet RxNorm: 679117 TAKE ONE TABLET BY MOUTH DAILY 01/29/2017 11/21/2017 Inactive lorazepam 1 mg tablet RxNorm: 061155 Tablet(s) TAKE TWO TABLETS BY MOUTH AT B EDTIME NEEDED FOR INSOMNIA AND ONE TABLET DAILY NEEDED ANXIETY 01/05/2017 04/04/2017 Inactive tramadol 50 mg tablet RxNorm: 066683 1 Tablet(s) PO Q4H as needed for pain 12/07/2016 01/13/2017 In active [SAVINGS FOR UNINSURED PATIENTS -- BIN:0 12228, PCN: ASPROD1, Group: [id number], ID# [id number], Process claim through Birdbackact, for questions: . THIS IS NOT INSURANCE.] Kenalog 40 mg/mL madhavi pension for injection RxNorm: 3839642 Milliliter(s) Inj 12/07/2016 12/07/2016 In active nystatin 100,000 uni t/mL oral suspension RxNorm: 466347 4 Milliliter(s) PO QI D 12/07/2016 12/11/2016 In active Francia-D 12 Hour 60 mg-120 mg tablet,extended release RxNorm: 077471 1 Tablet(s) PO BID 12/07/2016 01/11/2017 Inactive lorazepam 1 mg tablet RxNorm: 906955 Tablet(s) TAKE TWO TABLETS BY MOUTH AT B EDTIME AND ONE TABLET DAILY NEEDED 12/07/2016 01/04/2017 Inactive (Response to an electronic controlled substance refill request - RxReferenceNumber: [id number]) albuterol sulfate 2. 5 mg/3 mL (0.083 %) solution for nebulization RxNorm: 554687 3 Milliliter(s) INH TID 11/29/2016 11/28/2016 Inactive prednisone 10 mg tablet RxNorm: 918430 Tablet(s) PO UD 11/29/2016 12/05/2016 Inactive 6,5,4,3,2,1 doxycycline hyclate 100 mg tablet RxNorm: 738349 1 Tablet(s) PO BID 11/29/2016 12/04/2016 Inactive albuterol sulfate 2. 5 mg/3 mL (0.083 %) solution for nebulization RxNorm: 822400 3 Milliliter(s) INH TID 11/29/2016 12/03/2016 Inactive Kenalog 40 mg/mL madhavi pension for injection RxNorm: 0815170 Milliliter(s) Inj 11/28/2016 11/28/2016 In active tramadol 50 mg tablet RxNorm: 282914 1 Tablet(s) PO Q4H as needed for pain 11/15/2016 12/06/2016 In active [SAVINGS FOR UNINSURED PATIENTS -- BIN:0 70660, PCN: ASPROD1, Group: [id number], ID# [id number], Process claim through Loftware, for questions: . THIS IS NOT INSURANCE.] prednisone 20 mg tablet RxNorm: 055657 2 Tablet(s) PO daily 11/15/2016 11/19/2016 Inactive Advair Diskus 100 mc g-50 mcg/dose powder for inhalation RxNorm: 9740527 1 Puff(s) INH BID 11/15/2016 06/11/2017 Inactive ProAir HFA 90 mcg/ac tuation aerosol inhaler RxNorm: 485421 INHALE 1 TO 2 PUFFS F OUR TIMES A DAY NEEDED FOR ASTHMA 11/15/2016 04/13/2017 Inactive Zithromax Z-Linus 250 mg tablet RxNorm: 149946 1 Tablet(s) PO UD 11/15/2016 11/27/2016 Inactive Zyrtec 10 mg tablet RxNorm: 9485875 1 Tablet(s) PO daily 10/17/2016 11/15/2016 Inactive Keflex 500 mg capsule RxNorm: 707402 1 Capsule(s) PO TID 10/17/2016 10/23/2016 Inactive prednisone 10 mg tablet RxNorm: 116122 Tablet(s) PO UD 10/17/2016 11/28/2016 Inactive 6,5,4,3,2,1 tramadol 50 mg tablet RxNorm: 314301 1 Tablet(s) PO Q4H as needed for pain 09/28/2016 11/06/2016 In active [SAVINGS FOR UNINSURED PATIENTS -- BIN:0 39963, PCN: ASPROD1, Group: [id number], ID# [id number], Process claim through Loftware, for questions: . THIS IS NOT INSURANCE.] ProAir HFA 90 mcg/ac tuation aerosol inhaler RxNorm: 621158 INHALE 1 TO 2 PUFFS F OUR TIMES A DAY NEEDED FOR ASTHMA 09/15/2016 11/14/2016 Inactive doxycycline hyclate 100 mg tablet RxNorm: 125671 1 Tablet(s) PO BID 09/15/2016 09/24/2016 Inactive doxycycline hyclate 100 mg tablet RxNorm: 671173 1 Tablet(s) PO BID 07/29/2016 08/07/2016 Inactive tramadol 50 mg tablet RxNorm: 257596 1 Tablet(s) PO Q4H as needed for pain 07/29/2016 09/06/2016 In active [SAVINGS FOR UNINSURED PATIENTS -- BIN:0 64742, PCN: ASPROD1, Group: [id number], ID# [id number], Process claim through Loftware, for questions: . THIS IS NOT INSURANCE.] lorazepam 1 mg tablet RxNorm: 525828 Tablet(s) TAKE TWO TABLETS BY MOUTH AT B EDTIME AND ONE TABLET DAILY NEEDED 07/29/2016 10/26/2016 Inactive (Response to an electronic controlled substance refill request - RxReferenceNumber: [id number]) levothyroxine 125 mc g tablet RxNorm: 337650 1 Tablet(s) PO daily 06/29/2016 06/29/2016 Inactive levothyroxine 137 mc g tablet RxNorm: 863138 1 Tablet(s) PO daily 06/29/2016 12/25/2016 Inactive ketoconazole 2 % sha mpoo RxNorm: 587604 1 Application TOP BID 06/29/2016 07/03/2016 Inactive tramadol 50 mg tablet RxNorm: 233326 1 Tablet(s) PO Q4H as needed for pain 06/16/2016 07/25/2016 In active [SAVINGS FOR UNINSURED PATIENTS -- BIN:0 06412, PCN: ASPROD1, Group: [id number], ID# [id number], Process claim through Loftware, for questions: . THIS IS NOT INSURANCE.] Bactroban 2 % topica l ointment RxNorm: 926021 APPLY TO AFFECTED ARE A(S) TWO TIMES A DAY 06/16/2016 04/16/2017 Inactive fluconazole 150 mg t ablet RxNorm: 400125 1 Tablet(s) PO daily 06/01/2016 06/05/2016 Inactive gentamicin 0.1 % top ical ointment RxNorm: 132831 1 Application TOP QID 05/12/2016 05/25/2016 In active metronidazole 500 mg tablet RxNorm: 170655 1 Tablet(s) PO TID 05/11/2016 05/24/2016 Inactive gentamicin 0.1 % top ical ointment RxNorm: 923086 1 Application TOP QID 05/11/2016 05/11/2016 In active doxycycline hyclate 100 mg tablet RxNorm: 139409 1 Tablet(s) PO BID 05/11/2016 05/24/2016 Inactive lorazepam 1 mg tablet RxNorm: 967449 Tablet(s) TAKE TWO TABLETS BY MOUTH AT B EDTIME AND ONE TABLET DAILY NEEDED 05/02/2016 07/28/2016 Inactive (Response to an electronic controlled substance refill request [id number]) Diflucan 150 mg tablet RxNorm: 940751 1 Tablet(s) PO daily x5 days then 1 x we ekly x 4 weeks. 05/02/2016 04/10/2017 Inactive Diflucan 150 mg tablet RxNorm: 538553 1 Tablet(s) PO every other day 04/19/2016 04/28/2016 In active Diflucan 150 mg tablet RxNorm: 817185 1 Tablet(s) PO every other day 04/19/2016 04/18/2016 In active Diflucan 150 mg tablet RxNorm: 339453 1 Tablet(s) PO daily 04/05/2016 04/11/2016 Inactive mupirocin 2 % topica l ointment RxNorm: 811618 1 Application TOP BID 04/05/2016 05/04/2016 Inactive tramadol 50 mg tablet RxNorm: 045168 1 Tablet(s) PO Q4H as needed for pain 04/05/2016 05/14/2016 In active [SAVINGS FOR UNINSURED PATIENTS -- BIN:0 87941, PCN: ASPROD1, Group: [id number], ID# [id number], Process claim through Loftware, for questions: . THIS IS NOT INSURANCE.] prednisone 10 mg tablet RxNorm: 811201 Tablet(s) PO UD 04/01/2016 09/26/2016 Inactive 6,5,4,3,2,1 levothyroxine 137 mc g tablet RxNorm: 431098 1 Tablet(s) PO daily 03/21/2016 03/20/2016 Inactive levothyroxine 137 mc g tablet RxNorm: 720161 1 Tablet(s) PO daily 03/21/2016 06/28/2016 Inactive Advair Diskus 100 mc g-50 mcg/dose powder for inhalation RxNorm: 4902131 1 Puff(s) INH BID 01/26/2016 05/24/2016 Inactive tramadol 50 mg tablet RxNorm: 847251 1 Tablet(s) PO Q4H as needed for pain 01/26/2016 03/05/2016 In active [SAVINGS FOR UNINSURED PATIENTS -- BIN:0 73851, PCN: ASPROD1, Group: [id number], ID# [id number], Process claim through Loftware, for questions: . THIS IS NOT INSURANCE.] Bactroban 2 % topica l ointment RxNorm: 484624 APPLY TO AFFECTED ARE A(S) TWO TIMES A DAY 12/22/2015 12/31/2015 Inactive Bactrim DS 800 mg-16 0 mg tablet RxNorm: 525226 TAKE ONE TABLET BY [facility] TWICE A DAY 12/22/2015 04/18/2016 In active Bactrim DS 800 mg-16 0 mg tablet RxNorm: 457936 1 Tablet(s) PO BID 12/21/2015 12/30/2015 Inactive lisinopril 20 mg-hyd rochlorothiazide 25 mg tablet RxNorm: 371713 1 Tablet(s) PO daily 12/21/2015 06/17/2016 Inactive [SAVINGS FOR UNINSURED PATIENTS -- BIN:0 86305, PCN: ASPROD1, Group: [id number], ID# [id number], Process claim through Loftware, for questions: . THIS IS NOT INSURANCE.] tramadol 50 mg tablet RxNorm: 384064 1 Tablet(s) PO Q4H as needed for pain 12/03/2015 01/11/2016 In active [SAVINGS FOR UNINSURED PATIENTS -- BIN:0 72367, PCN: ASPROD1, Group: [id number], ID# [id number], Process claim through Birdback[employer], for questions: . THIS IS NOT INSURANCE.] lorazepam 1 mg tablet RxNorm: 055216 Tablet(s) TAKE TWO TABLETS BY MOUTH AT B EDTIME AND ONE TABLET DAILY NEEDED 11/26/2015 06/27/2018 Inactive (Response to an electronic controlled substance refill request - RxReferenceNumber: [id number]) Bactrim DS 800 mg-16 0 mg tablet RxNorm: 493665 1 Tablet(s) PO BID 11/25/2015 12/04/2015 Inactive levothyroxine 150 mc g tablet RxNorm: 259348 1 Tablet(s) PO daily 11/25/2015 03/20/2016 Inactive Bactroban 2 % topica l ointment RxNorm: 699362 1 Application TOP BID 10/12/2015 10/21/2015 Inactive Bactrim DS 800 mg-16 0 mg tablet RxNorm: 282594 1 Tablet(s) PO BID 09/07/2015 09/06/2015 Inactive Bactrim DS 800 mg-16 0 mg tablet RxNorm: 216161 1 Tablet(s) PO BID 09/07/2015 09/16/2015 Inactive lorazepam 1 mg tablet RxNorm: 088835 Tablet(s) TAKE TWO TABLETS BY MOUTH AT B EDTIME AND ONE TABLET DAILY NEEDED 08/28/2015 11/24/2015 Inactive (Response to an electronic controlled substance refill request - RxReferenceNumber: [id number]) levothyroxine 175 mc g tablet RxNorm: 062831 1 Tablet(s) PO daily 08/24/2015 11/24/2015 Inactive tramadol 50 mg tablet RxNorm: 828889 1 Tablet(s) PO Q4H as needed for pain 08/24/2015 09/11/2017 In active [SAVINGS FOR UNINSURED PATIENTS -- BIN:0 87885, PCN: ASPROD1, Group: [id number], ID# [id number], Process claim through Loftware, for questions: . THIS IS NOT INSURANCE.] lisinopril 20 mg-hyd rochlorothiazide 25 mg tablet RxNorm: 020342 1 Tablet(s) PO daily TAKE 1 TABLET BY MOUTH DAILY 08/24/2015 06/27/2018 Inactive ProAir HFA 90 mcg/ac tuation aerosol inhaler RxNorm: 301387 1-2 Puff(s) INH PRN I NHALE ONE TO TWO PUFFS BY MOUTH FOUR TIMES A DAY NEEDED FOR ASTHMA 08/24/2015 12/01/2015 In active ProAir HFA 90 mcg/ac tuation aerosol inhaler RxNorm: 9026004 INHALE ONE TO TWO PU FFS BY MOUTH FOUR TIMES A DAY NEEDED FOR ASTHMA 08/17/2015 08/23/2015 Inactive Advair Diskus 250 mc g-50 mcg/dose powder for inhalation RxNorm: 4344873 1 Puff(s) INH BID 07/20/2015 07/19/2015 Inactive Advair Diskus 250 mc g-50 mcg/dose powder for inhalation RxNorm: 4322395 1 Puff(s) INH BID 07/20/2015 11/16/2015 Inactive tramadol 50 mg tablet RxNorm: 138605 1 Tablet(s) PO Q4H as needed for pain 07/10/2015 08/17/2015 In active [SAVINGS FOR UNINSURED PATIENTS -- BIN:0 71433, PCN: ASPROD1, Group: [id number], ID# [id number], Process claim through MedImpact, for questions: . THIS IS NOT INSURANCE.] Zithromax Z-Linus 250 mg tablet RxNorm: 010610 1 Tablet(s) PO UD 07/10/2015 01/18/2016 Inactive Keflex 500 mg capsule RxNorm: 373592 1 Capsule(s) PO TID 06/01/2015 06/07/2015 Inactive mupirocin 2 % topica l ointment RxNorm: 480207 1 Application TOP TID 06/01/2015 06/10/2015 Inactive lisinopril 20 mg-hyd rochlorothiazide 25 mg tablet RxNorm: 526865 TAKE 1 TABLET BY MOUT H DAILY 05/30/2015 08/23/2015 Inactive lisinopril 20 mg-hyd rochlorothiazide 25 mg tablet RxNorm: 608411 1 Tablet(s) PO daily 05/29/2015 11/24/2015 Inactive [SAVINGS FOR UNINSURED PATIENTS -- BIN:0 05959, PCN: ASPROD1, Group: [id number], ID# [id number], Process claim through MedImpact, for questions: . THIS IS NOT INSURANCE.] lorazepam 1 mg tablet RxNorm: 367266 Tablet(s) TAKE TWO TABLETS BY MOUTH AT B EDTIME AND ONE TABLET DAILY NEEDED 04/17/2015 07/13/2015 Inactive (Response to an electronic controlled substance refill request - RxReferenceNumber: [id number]) levothyroxine 200 mc g tablet RxNorm: 317892 1 Tablet(s) PO daily 03/12/2015 08/23/2015 Inactive [SAVINGS FOR UNINSURED PATIENTS -- BIN:0 27827, PCN: ASPROD1, Group: [id number], ID# [id number], Process claim through MedImpact, for questions: . THIS IS NOT INSURANCE.] lisinopril 20 mg-hyd rochlorothiazide 25 mg tablet RxNorm: 650703 1 Tablet(s) PO daily 03/11/2015 05/28/2015 Inactive [SAVINGS FOR UNINSURED PATIENTS -- BIN:0 24674, PCN: ASPROD1, Group: [id number], ID# [id number], Process claim through Loftware, for questions: . THIS IS NOT INSURANCE.] levothyroxine 175 mc g tablet RxNorm: 675501 1 Tablet(s) PO daily 03/09/2015 03/11/2015 Inactive recheck blood in 3 months- THIS IS CORRE CT DOSAGE levothyroxine 175 mc g tablet RxNorm: 800141 1 Tablet(s) PO daily 03/09/2015 03/08/2015 Inactive recheck blood in 3 months levothyroxine 150 mc g tablet RxNorm: 476409 1 Tablet(s) PO daily 03/09/2015 03/08/2015 Inactive recheck blood in 3 months lorazepam 1 mg tablet RxNorm: 870913 TAKE TWO TABLETS BY MOUTH AT BEDTIME AND ONE TABLET DAILY NEEDED 12/25/2014 01/22/2015 Inactive (Response to an electronic controlled substance refill request - RxReferenceNumber: [id number]) lorazepam 1 mg tablet RxNorm: 957049 Tablet(s) TAKE TWO TABLETS BY MOUTH EVER Y NIGHT AT BEDTIME AND TAKE ONE TABLET BY MOUTH DAILY NEEDED 12/23/2014 12/25/2014 Inactive (Response to an electronic controlled north bstance refill request - RxReferenceNumber: [id number]) levothyroxine 150 mc g tablet RxNorm: 651355 1 Tablet(s) PO daily 12/12/2014 03/08/2015 Inactive recheck blood in 3 months Diflucan 150 mg tablet RxNorm: 864771 1 Tablet(s) PO every other day (start af ter finished with Cipro) 11/17/2014 08/23/2015 Inactive tramadol 50 mg tablet RxNorm: 373293 1 Tablet(s) PO Q4H as needed for pain 11/10/2014 12/17/2014 In active [SAVINGS FOR UNINSURED PATIENTS -- BIN:0 87832, PCN: ASPROD1, Group: LINDY, ID# [id number], Process claim through Loftware, for questions: . THIS IS NOT INSURANCE.] Cipro 500 mg tablet RxNorm: 678792 1 Tablet(s) PO BID 10/23/2014 10/29/2014 Inactive Flagyl 500 mg tablet RxNorm: 835631 1 Tablet(s) PO TID 10/23/2014 10/29/2014 Inactive Cipro 500 mg tablet RxNorm: 463480 1 Tablet(s) PO BID 10/23/2014 10/22/2014 Inactive Flagyl 500 mg tablet RxNorm: 599984 1 Tablet(s) PO TID 10/23/2014 10/22/2014 Inactive Diflucan 150 mg tablet RxNorm: 836468 1 Tablet(s) PO every other day (start af ter finished with Cipro) 10/23/2014 11/16/2014 Inactive lorazepam 1 mg tablet RxNorm: 009451 TAKE TWO TABLETS BY MOUTH EVERY NIGHT AT BEDTIME AND TAKE ONE TABLET BY MOUTH DAILY NEEDED 10/21/2014 10/21/2014 Inactive (Response to an electronic controlled north bstance refill request - RxReferenceNumber: [id number]) lorazepam 1 mg tablet RxNorm: 353949 TAKE TWO TABLETS BY MOUTH EVERY NIGHT AT BEDTIME AND TAKE ONE TABLET BY MOUTH DAILY NEEDED 10/21/2014 11/18/2014 Inactive (Response to an electronic controlled north bstance refill request - RxReferenceNumber: [id number]) lorazepam 1 mg tablet RxNorm: 827652 Tablet(s) TAKE TWO TABLETS BY MOUTH AT B EDTIME, ALSO TAKE ONE TABLET BY MOUTH DAILY NEEDED 10/13/2014 10/21/2014 Inactive (Res ponse to an electronic controlled substance refill request - RxReferenceNumber: [id number]) ProAir HFA 90 mcg/ac tuation aerosol inhaler RxNorm: 6884405 1-2 inhale INH QID a s needed ASTHMA 10/13/2014 12/26/2014 Inactive ProAir HFA 90 mcg/ac tuation aerosol inhaler RxNorm: 5034936 1-2 inhale INH QID a s needed ASTHMA 09/18/2014 10/12/2014 Inactive meloxicam 7.5 mg tablet RxNorm: 798573 1 Tablet(s) PO daily 09/18/2014 03/10/2015 Inactive [SAVINGS FOR UNINSURED PATIENTS -- BIN:[id number], PCN: [id number], Group: [id number], ID# [id number], Process claim through [employer], for questions: . THIS IS NOT INSURANCE.] sulfamethoxazole 800 mg-trimethoprim 160 mg tablet RxNorm: 557344 1 Tablet(s) PO BID 09/18/2014 10/07/2014 Inactive levothyroxine 175 mc g tablet RxNorm: 718089 1 Tablet(s) PO daily 09/17/2014 12/11/2014 Inactive levothyroxine 175 mc g tablet RxNorm: 120385 1 Tablet(s) PO daily 09/17/2014 09/16/2014 Inactive lorazepam 1 mg tablet RxNorm: 242226 Tablet(s) TAKE TWO TABLETS BY MOUTH AT B EDTIME, ALSO TAKE ONE TABLET BY MOUTH DAILY NEEDED 09/12/2014 10/11/2014 Inactive (Res ponse to an electronic controlled substance refill request - RxReferenceNumber: [id number]) lorazepam 1 mg tablet RxNorm: 283722 TAKE TWO TABLETS BY MOUTH AT BEDTIME, AL SO TAKE ONE TABLET BY MOUTH DAILY NEEDED 09/08/2014 09/11/2014 Inactive (Res ponse to an electronic controlled substance refill request - RxReferenceNumber: [id number]) meloxicam 7.5 mg tablet RxNorm: 693361 1 Tablet(s) PO daily 09/01/2014 09/17/2014 Inactive [SAVINGS FOR UNINSURED PATIENTS -- BIN:0 36226, PCN: ASPROD1, Group: AME08, ID# [id number], Process claim through MedImp[employer], for questions: . THIS IS NOT INSURANCE.] lisinopril 20 mg-hyd rochlorothiazide 25 mg tablet RxNorm: 245147 1 Tablet(s) PO daily 09/01/2014 12/29/2014 Inactive [SAVINGS FOR UNINSURED PATIENTS -- BIN:0 59853, PCN: ASPROD1, Group: AME08, ID# [id number], Process claim through [employer], for questions: . THIS IS NOT INSURANCE.] tramadol 50 mg tablet RxNorm: 665889 1 Tablet(s) PO Q4H as needed for pain 08/20/2014 11/07/2014 In active [SAVINGS FOR UNINSURED PATIENTS -- BIN:0 85023, PCN: ASPROD1, Group: AME08, ID# [id number], Process claim through [employer], for questions: . THIS IS NOT INSURANCE.] meloxicam 7.5 mg tablet RxNorm: 819519 1 Tablet(s) PO daily 08/14/2014 08/31/2014 Inactive [SAVINGS FOR UNINSURED PATIENTS -- BIN:0 23030, PCN: ASPROD1, Group: AME08, ID# [id number], Process claim through [employer], for questions: . THIS IS NOT INSURANCE.] lorazepam 1 mg tablet RxNorm: 615110 2 Tablet(s) PO QHS and 1 tab qd PRN 08/01/2014 09/08/2014 In active [SAVINGS FOR UNINSURED PATIENTS -- BIN:0 40450, PCN: ASPROD1, Group: [id number], ID# [id number], Process claim through [employer], for questions: . THIS IS NOT INSURANCE.] levothyroxine 200 mc g tablet RxNorm: 226167 1 Tablet(s) PO daily 07/31/2014 09/16/2014 Inactive [SAVINGS FOR UNINSURED PATIENTS -- BIN:0 87890, PCN: ASPROD1, Group: AME08, ID# [id number], Process claim through [employer]Imp[employer], for questions: . THIS IS NOT INSURANCE.] lorazepam 1 mg tablet RxNorm: 619660 2 Tablet(s) PO QHS and 1 tab qd PRN No Start Date 07/31/2014 Inactive Phenergan VC-Codeine oral RxNorm: 606936 oral No S tart Date 11/26/2017 Inactive meloxicam 7.5 mg tablet RxNorm: 067024 1 Tablet(s) PO daily No Start Date 08/13/2014 Inactive lisinopril 20 mg-hyd rochlorothiazide 25 mg tablet RxNorm: 927496 1 Tablet(s) PO daily No Start Date 08/31/2014 Inactive levothyroxine 200 mc g tablet RxNorm: 466417 1 Tablet(s) PO daily No Start Date 07/30/2014 Inactive Diflucan 150 mg tablet RxNorm: 918592 1 Tablet(s) PO every other day No Start Date 10/22/2014 Inactive Zithromax Z-Linus 250 mg tablet RxNorm: 974871 1 Tablet(s) PO UD No Start Date 07/09/2015 Inactive tramadol 50 mg tablet RxNorm: 897148 1 Tablet(s) PO Q6 as needed No Start Date 08/19/2014 Inactive Medication Administered Medication Codes Instruc tions Start Date Status Kenalog 40 mg/mL suspension for injection RxNorm: 7829880 1Milliliter 06/14/2017 N o longer Active Kenalog 40 mg/mL suspension for injection RxNorm: 3661246 1Milliliter 03/27/2017 N o longer Active Kenalog 40 mg/mL suspension for injection RxNorm: 9892874 Milliliter 12/07/2016 No longer Active Kenalog 40 mg/mL suspension for injection RxNorm: 9681284 Milliliter 11/28/2016 No longer Active Immunizations Vaccine [...] Item Code Result Date Lipid Ord30 CHOL 231 mg/dL 10/24/2018 Lipid Ord30 HDL 56.0 mg/dl 10/24/2018 Lipid Ord30 TRIG 71 mg/dL 10/24/2018 Lipid Ord30 LDL 161 mg/dL 10/24/2018 Lipid Ord30 C/HDL 4.1 Ratio 10/24/2018 Comp Metabolic Bhr756 NA 141 mEq/L 10/24/2018 Comp Metabolic Vds905 K 3.7 mEq/L 10/24/2018 Comp Metabolic Rob576 CL 103 mEq/L 10/24/2018 Comp Metabolic Whq066 CO2 30.0 mEq/L 10/24/2018 Comp Metabolic Fvm431 AN ION GAP 12 10/24/2018 Comp Metabolic Rkl376 GL UCOSE 98 mg/dL 10/24/2018 Comp Metabolic Vdy042 Cr eat 0.8 mg/dL 10/24/2018 Comp Metabolic Jme898 eG FR 71 ml/min/1.73m2 10/24 Comp Metabolic Lum920 BUN 12 mg/dL 10/24/2018 Comp Metabolic Uja107 B/ C Ratio 14.5 Ratio 10/24/2018 Comp Metabolic Qrg844 CA LCIUM 9.2 mg/dL 10/24/2018 Comp Metabolic Vhr886 AL K PHOS 76 U/L 10/24/2018 Comp Metabolic Pww495 T(SGOT) 12 U/L 10/24/2018 Comp Metabolic Ovw030 AL T(SGPT) 9 U/L 10/24/2018 Comp Metabolic Tfq733 BI LI T 0.5 mg/dL 10/24/2018 Comp Metabolic Lio499 AL BUMIN 4.3 g/dL 10/24/2018 Comp Metabolic Yei495 TP RO 6.5 g/dL 10/24/2018 Comp Metabolic Uaw576 GL OB 2.2 g/dL 10/24/2018 Comp Metabolic Yhv568 A/ G Ratio 2.0 Ratio 10/24/2018 Comp Metabolic Cst568 Os mo 281 mOsmo 10/24/2018 Free T4 Yiw080 FREE T4 0.76 ng/dL 10/24/2018 Cbc With [...] 30.5 pg 10/24/2018 Cbc With Differential Ord2 [place]% 8.4 % 10/24/2018 Cbc With Differential Ord2 [...] 1.71 K/ul 10/24/2018 Cbc With Differential Ord2 [place] ABS# 0.4 K/ul 10/24/2018 Cbc With Differential [...] 30.0 pg 04/04/2018 Cbc With Differential Ord2 [place]% 10.9 % 04/04/2018 Cbc With Differential Ord2 [...] 1.42 K/ul 04/04/2018 Cbc With Differential Ord2 [place] ABS# 0.6 K/ul 04/04/2018 Cbc With Differential Ord2 Eos ABS# 0.1 K/ul 04/04/2018 Cbc With Differential Ord2 Baso ABS# 0.0 K/ul 04/04/2018 Free T4 Jbc389 FREE T4 1.25 ng/dL 04/04/2018 Tsh Ord6 [...] 30.2 pg 11/28/2017 Cbc With Differential Ord2 [place]% 10.1 % 11/28/2017 Cbc With Differential Ord2 [...] 1.33 K/ul 11/28/2017 Cbc With Differential Ord2 [place] ABS# 0.5 K/ul 11/28/2017 Cbc With Differential Ord2 Eos ABS# 0.1 K/ul 11/28/2017 Cbc With Differential Ord2 Baso ABS# 0.0 K/ul 11/28/2017 Free T4 Vuf978 FREE T4 1.43 ng/dL 11/28/2017 Lipid Ord30 CHOL 186 mg/dL 11/28/2017 Lipid Ord30 HDL 54.0 mg/dl 11/28/2017 Lipid Ord30 TRIG 59 mg/dL 11/28/2017 Lipid Ord30 LDL 120 mg/dL 11/28/2017 Lipid Ord30 C/HDL 3.4 Ratio 11/28/2017 Comp Metabolic Pyt760 NA 141 mEq/L 11/28/2017 Comp Metabolic Tee447 K 4.0 mEq/L 11/28/2017 Comp Metabolic Uwb781 CL 105 mEq/L 11/28/2017 Comp Metabolic Pib536 CO2 29.0 mEq/L 11/28/2017 Comp Metabolic Gvv376 AN ION GAP 11 11/28/2017 Comp Metabolic Gcz376 GL UCOSE 91 mg/dL 11/28/2017 Comp Metabolic Vyr127 Cr eat 0.8 mg/dL 11/28/2017 Comp Metabolic Ayb731 eG FR 74 ml/min/1.73m2 11/28 Comp Metabolic Htf216 BUN 15 mg/dL 11/28/2017 Comp Metabolic Zfg274 B/ C Ratio 18.8 Ratio 11/28/2017 Comp Metabolic Fzm099 CA LCIUM 8.6 mg/dL 11/28/2017 Comp Metabolic Azy574 AL K PHOS 76 U/L 11/28/2017 Comp Metabolic Syi362 T(SGOT) 10 U/L 11/28/2017 Comp Metabolic Ujh822 AL T(SGPT) 8 U/L 11/28/2017 Comp Metabolic Zhs761 BI LI T 0.5 mg/dL 11/28/2017 Comp Metabolic Swz676 AL BUMIN 4.0 g/dL 11/28/2017 Comp Metabolic Wcj663 TP RO 6.1 g/dL 11/28/2017 Comp Metabolic Bzr692 GL OB 2.1 g/dL 11/28/2017 Comp Metabolic Cni795 A/ G Ratio 1.9 Ratio 11/28/2017 Comp Metabolic Gmx753 Os mo 282 mOsmo 11/28/2017 Tsh Ord6 TSH (3rd IS) 3.31 uIU/mL 11/28/2017 Tsh Ord6 hTSH II 1.45 uIU/mL 03/27/2017 Free T4 Ayz350 FREE T4 1.23 ng/dL 03/27/2017 Comp Metabolic Ykt175 NA 140 mEq/L 09/28/2016 Comp Metabolic Nrg448 K 3.9 mEq/L 09/28/2016 Comp Metabolic Jqr984 CL 104 mEq/L 09/28/2016 Comp Metabolic Rxd618 CO2 28.0 mEq/L 09/28/2016 Comp Metabolic Kwz236 AN ION GAP 12 09/28/2016 Comp Metabolic Etr543 GL UCOSE 97 mg/dL 09/28/2016 Comp Metabolic Mdl347 Cr eat 0.8 mg/dL 09/28/2016 Comp Metabolic Yvx090 eG FR 79 ml/min/1.73m2 09/28 Comp Metabolic Ong507 BUN 13 mg/dL 09/28/2016 Comp Metabolic Ddr125 B/ C Ratio 17.1 Ratio 09/28/2016 Comp Metabolic Toz147 CA LCIUM 8.9 mg/dL 09/28/2016 Comp Metabolic Hff621 AL K PHOS 100 U/L 09/28/2016 Comp Metabolic Vkw983 T(SGOT) 12 U/L 09/28/2016 Comp Metabolic Upp716 AL T(SGPT) 9 U/L 09/28/2016 Comp Metabolic Lkp449 BI LI T 0.4 mg/dL 09/28/2016 Comp Metabolic Yle859 AL BUMIN 4.1 g/dL 09/28/2016 Comp Metabolic Ewa856 TP RO 6.6 g/dL 09/28/2016 Comp Metabolic Uxd968 GL OB 2.5 g/dL 09/28/2016 Comp Metabolic Udb201 A/ G Ratio 1.6 Ratio 09/28/2016 Comp Metabolic Fiu584 Os mo 279 mOsmo 09/28/2016 Lipid Ord30 [...] 28.8 pg 09/28/2016 Cbc With Differential Ord2 [place]% 7.2 % 09/28/2016 Cbc With Differential Ord2 [...] 1.41 K/ul 09/28/2016 Cbc With Differential Ord2 [place] ABS# 0.5 K/ul 09/28/2016 Cbc With Differential Ord2 Eos ABS# 0.2 K/ul 09/28/2016 Cbc With Differential Ord2 Baso ABS# 0.0 K/ul 09/28/2016 Free T4 Yiq910 FREE T4 1.43 ng/dL 09/28/2016 Tsh Ord6 hTSH II 0.52 uIU/mL 09/28/2016 Tsh Ord6 hTSH II 0.47 uIU/mL 06/16/2016 Comp Metabolic Tlp724 NA 139 mEq/L 06/16/2016 Comp Metabolic Bdu953 K 4.3 mEq/L 06/16/2016 Comp Metabolic Gdt439 CL 105 mEq/L 06/16/2016 Comp Metabolic Dzl367 CO2 30.0 mEq/L 06/16/2016 Comp Metabolic Ipf034 AN ION GAP 8 06/16/2016 Comp Metabolic Vpv693 GL UCOSE 90 mg/dL 06/16/2016 Comp Metabolic Pch380 Cr eat 0.7 mg/dL 06/16/2016 Comp Metabolic Ueg424 eG FR 91 ml/min/1.73m2 06/16 Comp Metabolic Pdd159 BUN 15 mg/dL 06/16/2016 Comp Metabolic Rcc216 B/ C Ratio 22.4 Ratio 06/16/2016 Comp Metabolic Kee562 CA LCIUM 8.8 mg/dL 06/16/2016 Comp Metabolic Ohd072 AL K PHOS 79 U/L 06/16/2016 Comp Metabolic Qku655 T(SGOT) 13 U/L 06/16/2016 Comp Metabolic Jma180 AL T(SGPT) 11 U/L 06/16/2016 Comp Metabolic Gby432 BI LI T 0.5 mg/dL 06/16/2016 Comp Metabolic Xaq376 AL BUMIN 3.9 g/dL 06/16/2016 Comp Metabolic Pnm424 TP RO 6.1 g/dL 06/16/2016 Comp Metabolic Rip021 GL OB 2.2 g/dL 06/16/2016 Comp Metabolic Gbf536 A/ G Ratio 1.8 Ratio 06/16/2016 Comp Metabolic Muy386 Os mo 278 mOsmo 06/16/2016 Lipid Ord30 [...] 28.9 pg 06/16/2016 Cbc With Differential Ord2 [place]% 8.1 % 06/16/2016 Cbc With Differential Ord2 [...] 1.70 K/ul 06/16/2016 Cbc With Differential Ord2 [place] ABS# 0.4 K/ul 06/16/2016 Cbc With Differential Ord2 Eos ABS# 0.2 K/ul 06/16/2016 Cbc With Differential Ord2 Baso ABS# 0.0 K/ul 06/16/2016 Free T4 Lpo582 FREE T4 1.42 ng/dL 06/16/2016 Free T4 Gzu772 FREE T4 1.34 ng/dL 03/04/2016 Tsh Ord6 hTSH II 0.56 uIU/mL 03/04/2016 Tsh Ord6 hTSH II 0.98 uIU/mL 01/27/2016 Free T4 Qtz870 FREE T4 1.19 ng/dL 01/27/2016 Free T4 Mzt947 FREE T4 1.69 ng/dL 11/23/2015 Tsh Ord6 hTSH II 0.08 uIU/mL 11/23/2015 Lipid Ord30 CHOL 185 mg/dL 08/21/2015 Lipid Ord30 HDL 50.0 mg/dl 08/21/2015 Lipid Ord30 TRIG 88 mg/dL 08/21/2015 Lipid Ord30 LDL 117 mg/dL 08/21/2015 Lipid Ord30 C/HDL 3.7 Ratio 08/21/2015 Comp Metabolic Ilx621 NA 139 mEq/L 08/21/2015 Comp Metabolic Ehl612 K 4.3 mEq/L 08/21/2015 Comp Metabolic Fgg994 CL 102 mEq/L 08/21/2015 Comp Metabolic Gmv101 CO2 27.0 mEq/L 08/21/2015 Comp Metabolic Rzq468 AN ION GAP 14 08/21/2015 Comp Metabolic Lae614 GL UCOSE 89 mg/dL 08/21/2015 Comp Metabolic Ody489 Cr eat 0.7 mg/dL 08/21/2015 Comp Metabolic Gzr433 eG FR 85 ml/min/1.73m2 08/21 Comp Metabolic Inb600 BUN 14 mg/dL 08/21/2015 Comp Metabolic Vrx292 B/ C Ratio 19.7 Ratio 08/21/2015 Comp Metabolic Vsm407 CA LCIUM 9.5 mg/dL 08/21/2015 Comp Metabolic Ohy116 AL K PHOS 123 U/L 08/21/2015 Comp Metabolic Eoc488 T(SGOT) 13 U/L 08/21/2015 Comp Metabolic Tsu495 AL T(SGPT) 10 U/L 08/21/2015 Comp Metabolic Dut475 BI LI T 0.4 mg/dL 08/21/2015 Comp Metabolic Bks357 AL BUMIN 4.1 g/dL 08/21/2015 Comp Metabolic Vtx628 TP RO 6.8 g/dL 08/21/2015 Comp Metabolic Epm200 GL OB 2.7 g/dL 08/21/2015 Comp Metabolic Jyc194 A/ G Ratio 1.5 Ratio 08/21/2015 Comp Metabolic Jpm371 Os mo 277 mOsmo 08/21/2015 Free T4 Hck849 FREE T4 1.78 ng/dL 08/21/2015 Tsh Ord6 [...] Ord2 RDW 13.9 % 08/21/2015 Quick Strep Czl8796 Quic k Strep Negative 07/08/2015 Tsh Ord6 hTSH II 0.04 uIU/mL 05/20/2015 Free T4 Geq263 FREE T4 1.50 ng/dL 05/20/2015 Review of [...] Procedure Codes Date DESTRUCT PREMALG LESION CPT-4: 56700 01/19/2018 URINALYSIS NONAUTO W /O SCOPE CPT-4: 34480 09/12/2017 TRIAMCINOLONE ACET I [place] NOS CPT-4: J3301 06/14/2017 THER/PROPH/DIAG INJ SC/IM CPT-4: 97782 06/14/2017 PRESCRIP TRANSMIT A ERX SY CPT-4: G8553 06/14/2017 TRIAMCINOLONE ACET I [place] NOS CPT-4: J3301 03/27/2017 THER/PROPH/DIAG INJ SC/IM CPT-4: 07853 12/07/2016 TRIAMCINOLONE ACET I [place] NOS CPT-4: J3301 12/07/2016 THER/PROPH/DIAG INJ SC/IM CPT-4: 69338 11/28/2016 TRIAMCINOLONE ACET I [place] NOS CPT-4: J3301 11/28/2016 Vital Signs Date Vital 11/21/2018 Blood Pressure 1: 120/64 Code: 8480-6 Heart Rate 1: 64 bpm 10/30/2018 Blood Pressure 1: 144/70 Code: 8480-6 BMI: 37.0 Code: 04002-5 Heart Rate 1: 76 bpm Height: 5'6" SpO2: 96% Weight: 229 lbs 06/28/2018 Blood Pressure 1: 110/66 Code: 8480-6 BMI: 37.1 Code: 39870-7 Heart Rate 1: 73 bpm Height: 5'6" SpO2: 98% Weight: 230 lbs 04/04/2018 Blood Pressure 1: 128/76 Code: 8480-6 BMI: 37.9 Code: 22411-4 Heart Rate 1: 86 bpm Height: 5'6" SpO2: 98% Weight: 235 lbs 01/19/2018 Blood Pressure 1: 122/68 Code: 8480-6 Heart Rate 1: 78 bpm Height: 5'6" SpO2: 97% Weight: 01/05/2018 Blood Pressure 1: 138/78 Code: 8480-6 BMI: 38.4 Code: 12755-3 Heart Rate 1: 73 bpm Height: 5'6" SpO2: 95% Weight: 238 lbs 11/29/2017 Blood Pressure 1: 138/80 Code: 8480-6 BMI: 38.7 Code: 84917-7 Heart Rate 1: 71 bpm Height: 5'6" SpO2: 97% Weight: 240 lbs 10/25/2017 Blood Pressure 1: 136/72 Code: 8480-6 BMI: 38.7 Code: 63304-5 Heart Rate 1: 92 bpm Height: 5'6" SpO2: 98% Weight: 240 lbs 09/12/2017 Blood Pressure 1: 132/68 Code: 8480-6 BMI: 39.7 Code: 67635-4 Heart Rate 1: 76 bpm Height: 5'6" SpO2: 98% Weight: 246 lbs 06/14/2017 Blood Pressure 1: 130/80 Code: 8480-6 BMI: 39.4 Code: 37396-5 Heart Rate 1: 73 bpm Height: 5'6" SpO2: 95% Temperature: 36.9 (C ) / 98.5 (F) Weight: 244 lbs 05/10/2017 Blood Pressure 1: 128/68 Code: 8480-6 BMI: 38.7 Code: 51310-1 Heart Rate 1: 69 bpm Height: 5'6" SpO2: 97% Weight: 240 lbs 04/19/2017 Blood Pressure 1: 138/74 Code: 8480-6 BMI: 38.7 Code: 01933-8 Heart Rate 1: 73 bpm Height: 5'6" SpO2: 96% Weight: 240 lbs 03/27/2017 Blood Pressure 1: 142/84 Code: 8480-6 BMI: 38.7 Code: 70660-6 Heart Rate 1: 69 bpm Height: 5'6" SpO2: 97% Weight: 240 lbs 01/26/2017 Blood Pressure 1: 136/68 Code: 8480-6 Heart Rate 1: 64 bpm Height: 5'6" SpO2: 96% Weight: 12/07/2016 Blood Pressure 1: 130/72 Code: 8480-6 BMI: 39.7 Code: 23946-8 Heart Rate 1: 73 bpm Height: 5'6" SpO2: 93% Temperature: 36.8 (C ) / 98.3 (F) Weight: 246 lbs 11/28/2016 Blood Pressure 1: 138/60 Code: 8480-6 BMI: 39.7 Code: 04148-0 Heart Rate 1: 81 bpm Height: 5'6" SpO2: 97% Weight: 246 lbs 11/15/2016 Blood Pressure 1: 134/78 Code: 8480-6 BMI: 39.7 Code: 38080-3 Heart Rate 1: 75 bpm Height: 5'6" SpO2: 93% Temperature: 36.8 (C ) / 98.2 (F) Weight: 246 lbs 10/17/2016 Blood Pressure 1: 120/64 Code: 8480-6 BMI: 38.4 Code: 64763-8 Heart Rate 1: 69 bpm Height: 5'6" SpO2: 98% Temperature: 37.2 (C ) / 98.9 (F) Weight: 238 lbs 09/28/2016 Blood Pressure 1: 158/76 Code: 8480-6 BMI: 39.4 Code: 22812-6 Heart Rate 1: 71 bpm Height: 5'6" SpO2: 97% Weight: 244 lbs 06/29/2016 Blood Pressure 1: 124/60 Code: 8480-6 BMI: 38.7 Code: 47362-2 Heart Rate 1: 71 bpm Height: 5'6" SpO2: 98% Weight: 240 lbs 06/01/2016 Blood Pressure 1: 120/62 Code: 8480-6 BMI: 38.6 Code: 35371-2 Heart Rate 1: 76 bpm Height: 5'6" SpO2: 98% Weight: 239 lbs 05/11/2016 Blood Pressure 1: 140/80 Code: 8480-6 BMI: 38.1 Code: 04912-4 Heart Rate 1: 88 bpm Height: 5'6" SpO2: 97% Weight: 236 lbs 04/05/2016 Blood Pressure 1: 142/80 Code: 8480-6 BMI: 38.4 Code: 90923-0 Heart Rate 1: 96 bpm Height: 5'6" SpO2: 98% Weight: 238 lbs 04/01/2016 Blood Pressure 1: 136/88 Code: 8480-6 BMI: 39.2 Code: 06298-0 Heart Rate 1: 86 bpm Height: 5'6" SpO2: 96% Weight: 243 lbs 01/26/2016 Blood Pressure 1: 124/76 Code: 8480-6 BMI: 39.2 Code: 72774-8 Heart Rate 1: 76 bpm Height: 5'6" SpO2: 97% Weight: 243 lbs 12/21/2015 Blood Pressure 1: 120/64 Code: 8480-6 BMI: 37.0 Code: 43425-7 Heart Rate 1: 98 bpm Height: 5'6" SpO2: 97% Weight: 229 lbs 10/12/2015 Blood Pressure 1: 150/64 Code: 8480-6 BMI: 37.4 Code: 95144-2 Heart Rate 1: 70 bpm Height: 5'6" SpO2: 94% Weight: 232 lbs 08/24/2015 Blood Pressure 1: 128/74 Code: 8480-6 BMI: 36.8 Code: 89551-5 Heart Rate 1: 88 bpm Height: 5'6" SpO2: 94% Temperature: 36.8 (C ) / 98.3 (F) Weight: 228 lbs 06/01/2015 Blood Pressure 1: 134/68 Code: 8480-6 BMI: 36.0 Code: 08732-0 Heart Rate 1: 70 bpm Height: 5'6" SpO2: 98% Weight: 223 lbs 05/21/2015 Blood Pressure 1: 126/72 Code: 8480-6 BMI: 35.2 Code: 20780-4 Heart Rate 1: 63 bpm Height: 5'6" SpO2: 95% Weight: 218 lbs 5 oz 03/26/2015 Blood Pressure 1: 140/62 Code: 8480-6 BMI: 35.3 Code: 60472-9 Heart Rate 1: 68 bpm Height: 5'6" Weight: 219 lbs 03/11/2015 Blood Pressure 1: 130/80 Code: 8480-6 BMI: 34.9 Code: 56270-8 Heart Rate 1: 76 bpm Height: 5'6" Temperature: 37.1 (C ) / 98.7 (F) Weight: 216 lbs 12/11/2014 Blood Pressure 1: 134/62 Code: 8480-6 BMI: 34.2 Code: 90923-0 Heart Rate 1: 72 bpm Height: 5'6" Weight: 212 lbs 09/18/2014 Blood Pressure 1: 148/80 Code: 8480-6 BMI: 34.7 Code: 31160-8 Heart Rate 1: 68 bpm Height: 5'6" Weight: 215 lbs 07/31/2014 Blood Pressure 1: 124/72 Code: 8480-6 BMI: 36.2 Code: 79148-8 Heart Rate 1: 68 bpm Height: 5'6" [...] Severity mi ld 09/28/2016 None 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 09/28/2016 None hypothyroid Onset and [...] Severity mi ld 06/01/2016 None 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 06/01/2016 None hypothyroid Onset and [...] and Resolution resolved 04/05/2016 None 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 04/05/2016 None hypothyroid Onset and [...] a ssociated factors 10/12/2015 None 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 P ATIENT, LEVEL IV Diagnosis: Essential (primary) hypertension[ICD10: I10] Diagnosis: Hypothyroidism, unspecified[ICD10: E03.9] Diagnosis: Low back pain[ICD10: M54.5] Lynn Finn MD, [facility] CPT- 4: 13629 10/30/2018 ([id number]) 14619 EST. P [facility], LEVEL III Diagnosis: Acute recurrent maxillary sinusitis[ICD10: J01.01] Diagnosis: Other mucopurulent conjunctivitis, left eye[ICD10: H10.022] Diagnosis: Other allergic rhinitis[ICD10: J30.89] Lynn Finn MD, [facility] CPT-4: 69267 06/28/2018 [id number] EST. PATIENT, LEVEL IV Diagnosis: Essential (primary) hypertension[ICD10: I10] Diagnosis: Other specified hypothyroidism[ICD10: E03.8] Diagnosis: Other specified anemias[ICD10: D64.89] Diagnosis: Localized edema[ICD10: R60.0] Mishel Finn MD, [facility] CPT-4: 70103 04/04/2018 ([id number]) 30205 EST. P [facility], LEVEL III Diagnosis: Mild persistent asthma, uncomplicated[ICD10: J45.30] Diagnosis: Actinic keratosis[ICD10: L57.0] Lynn Finn MD, [facility] CPT- 4: 67225 01/05/2018 ([id number]) Miscellaneou s no charge Diagnosis: Essential (primary) hypertension[ICD10: I10] Damari Finn MD, [facility] CPT-4: 81384 12/12/2017 17816 EST. PATIENT, LEVEL III Diagnosis: Essential (primary) hypertension[ICD10: I10] Diagnosis: Atrophy of thyroid (acquired)[ICD10: E03.4] Diagnosis: Low back pain[ICD10: M54.5] Mishel Finn MD, [facility] CPT-4: 65329 11/29/2017 68636 EST. PATIENT, LEVEL III Diagnosis: Pain in left hip[ICD10: M25.552] Mishel Finn MD, [facility] CPT-4: 15091 10/25/2017 49171 EST. PATIENT, LEVEL IV Diagnosis: Localized edema[ICD10: R60.0] Mishel Finn MD, [facility] CPT-4: 21947 09/12/2017 14559 EST. PATIENT, LEVEL IV Diagnosis: Mild persistent asthma with (acute) exacerbation[ICD10: J45.31] Mishel Finn MD, [facility] CPT-4: 80825 06/14/2017 32794 EST. PATIENT, LEVEL III Diagnosis: Localized edema[ICD10: R60.0] Diagnosis: Mild persistent asthma, uncomplicated[ICD10: J45.30] Mishel Finn MD, [facility] CPT-4: 89845 05/10/2017 98003 EST. PATIENT, LEVEL III Diagnosis: Mild persistent asthma with (acute) exacerbation[ICD10: J45.31] Mishel Finn MD, [facility] CPT-4: 78714 04/19/2017 ([id number]) 03030 EST. P ATIENT, LEVEL IV Diagnosis: Contusion of left wrist, initial encounter[ICD10: S60.212A] Diagnosis: Hypothyroidism, unspecified[ICD10: E03.9] Diagnosis: Mild persistent asthma with (acute) exacerbation[ICD10: J45.31] Diagnosis: Low back pain[ICD10: M54.5] Lynn Finn MD, [facility] CPT- 4: 28591 03/27/2017 ([id number]) 03602 EST. P ATIENT, LEVEL IV Diagnosis: Essential (primary) hypertension[ICD10: I10] Diagnosis: Atrophy of thyroid (acquired)[ICD10: E03.4] Diagnosis: Low back pain[ICD10: M54.5] Damari Finn MD, [facility] CPT-4: 32077 01/26/2017 90040 EST. PATIENT, LEVEL III Diagnosis: Other allergic rhinitis[ICD10: J30.89] Diagnosis: Mild persistent asthma with (acute) exacerbation[ICD10: J45.31] Mishel Finn MD, [facility] CPT-4: 40883 12/07/2016 47250 EST. PATIENT, LEVEL III Diagnosis: Mild persistent asthma with (acute) exacerbation[ICD10: J45.31] Mishel Finn MD, [facility] CPT-4: 85467 11/28/2016 33263 EST. PATIENT, LEVEL III Diagnosis: Mild persistent asthma with (acute) exacerbation[ICD10: J45.31] Diagnosis: Acute bronchitis due to other specified organisms[ICD10: J20.8] Mishel Finn MD, [facility] CPT-4: 23437 11/15/2016 92905 EST. PATIENT, LEVEL IV Diagnosis: Other acute sinusitis[ICD10: J01.80] Diagnosis: Other allergic rhinitis[ICD10: J30.89] Diagnosis: Mild persistent asthma with (acute) exacerbation[ICD10: J45.31] Mishel Finn MD, [facility] CPT-4: 81550 10/17/2016 ([id number]) 09943 EST. P ATIENT, LEVEL IV Diagnosis: Essential (primary) hypertension[ICD10: I10] Diagnosis: Low back pain[ICD10: M54.5] Damari Finn MD, [facility] CPT-4: 50637 09/28/2016 23539 EST. PATIENT, LEVEL III Diagnosis: Tinea barbae and tinea capitis[ICD10: B35.0] Diagnosis: Other specified hypothyroidism[ICD10: E03.8] Mishel Finn MD, [facility] CPT-4: 65727 06/29/2016 ([id number]) 25356 EST. P ATIENT, LEVEL IV Diagnosis: Essential (primary) hypertension[ICD10: I10] Diagnosis: Atrophy of thyroid (acquired)[ICD10: E03.4] Diagnosis: Rash and other nonspecific skin eruption[ICD10: R21] Damari Finn MD, [facility] CPT-4: 65336 06/01/2016 ([id number]) 92501 EST. P ATIENT, LEVEL III Diagnosis: Cellulitis of groin[ICD10: L03.314] Damari Finn MD, [facility] CPT- 4: 34958 05/11/2016 ([id number]) 75901 EST. P ATIENT, LEVEL IV Diagnosis: Hypothyroidism, unspecified[ICD10: E03.9] Diagnosis: Candidiasis of vulva and vagina[ICD10: B37.3] Diagnosis: Essential (primary) hypertension[ICD10: I10] Diagnosis: Low back pain[ICD10: M54.5] Lynn Finn MD, [facility] CPT- 4: 36642 04/05/2016 94301 EST. PATIENT, LEVEL III Diagnosis: Other acute sinusitis[ICD10: J01.80] Diagnosis: Rash and other nonspecific skin eruption[ICD10: R21] Mishel Finn MD, [facility] CPT-4: 59974 04/01/2016 ([id number]) 30157 EST. P ATIENT, LEVEL IV Diagnosis: Essential (primary) hypertension[ICD10: I10] Diagnosis: Hypothyroidism, unspecified[ICD10: E03.9] Diagnosis: Low back pain[ICD10: M54.5] Diagnosis: Other obesity due to excess calories[ICD10: E66.09] Lynn Finn MD, [facility] CPT-4: 86396 01/26/2016 84230 EST. PATIENT, LEVEL IV Diagnosis: Essential (primary) hypertension[ICD10: I10] Diagnosis: Cutaneous abscess of face[ICD10: L02.01] Mishel Finn MD, [facility] CPT-4: 91839 12/21/2015 ([id number]) 99029 EST. P ATIENT, LEVEL III Diagnosis: Cutaneous abscess of groin[ICD10: L02.214] Diagnosis: Hypothyroidism, unspecified[ICD10: E03.9] Lynn Finn MD, [facility] CPT-4: 57109 10/12/2015 ([id number]) 75508 EST. P ATIENT, LEVEL III Diagnosis: Essential (primary) hypertension[ICD10: I10] Diagnosis: Hypothyroidism, unspecified[ICD10: E03.9] Diagnosis: Allergic rhinitis, unspecified[ICD10: J30.9] Lynn Finn MD, [facility] CPT-4: 94887 08/24/2015 ([id number]) [id number] EST. P ATIENT, LEVEL III Diagnosis: Skin infection[ICD9: 686.9] Damari Finn MD, [facility] CPT-4: 33200 06/01/2015 ([id number]) 25367 EST. P ATIENT, LEVEL III Diagnosis: Hypothyroidism[ICD9: 244.9] Diagnosis: ESSENTIAL HYPERTENSION[ICD9: 401.9] Damari Finn MD, [facility] CPT- 4: 95801 05/21/2015 ([id number]) 45159 EST. P ATIENT, LEVEL III Diagnosis: Hypothyroidism[ICD9: 244.9] Diagnosis: Fingernail abnormalities[ICD9: 703.8] Lynn Finn MD, [facility] CPT-4: 58173 03/26/2015 ([id number]) 15813 EST. P ATIENT, LEVEL II Diagnosis: Hypothyroidism[ICD9: 244.9] Maritza Dao [facility] CPT-4: 38457 03/11/2015 ([id number]) 25974 EST. P ATIENT, LEVEL IV Diagnosis: ESSENTIAL HYPERTENSION[ICD9: 401.9] Diagnosis: Low back pain[ICD9: 724.2] Diagnosis: Hypothyroidism[ICD9: 244.9] Damari Finn MD, [facility] CPT-4: 55030 12/11/2014 ([id number]) 05906 EST. P ATIENT, LEVEL IV Diagnosis: Hidradenitis suppurativa[ICD9: 705.83] Diagnosis: ESSENTIAL HYPERTENSION[ICD9: 401.9] Diagnosis: Low back pain[ICD9: 724.2] Diagnosis: Lumbar spinal stenosis[ICD9: 724.02] Diagnosis: HYPOTHYROIDISM[ICD9: 244.9] Damari Finn MD, [facility] CPT-4: 23636 09/18/2014 Office outpatient ne w 30 minutes Diagnosis: ESSENTIAL HYPERTENSION[ICD9: 401.9] Diagnosis: Hypothyroidism[ICD9: 244.9] Diagnosis: Low back pain[ICD9: 724.2] [facility] CPT- 4: 30954 07/31/2014 Plan of Care Planned Activity Notes [...] and treat as indicated 10/30/2018 Appointment: Lynn Arenastel: [phone] [phone] [place] (30 min) Complex 10/30/2018 Patient Education: Patient Medication Summary Completed 10/30/2018 Patient Education: Hypertension Completed 10/30/2018 Patient Education: Back Pain Completed 10/30/2018 Appointment: Lynn Arenas WPtel: [phone] [phone] [place] (30 min) Complex 10/26/2018 Patient Education: Patient Medication Summary Completed 10/23/2018 Appointment: Lynn Arenas WPtel: [phone] [phone] [place] (15 min) Moderate 10/19/2018 Appointment: Damari Finn WPtel: [phone] [facility] [place] (15 min) Moderate 09/19/2018 Visit Plan: [...] daily. 06/28/2018 [facility]ment: [phone] [place] (30 min) Complex 06/28/2018 Patient [...] to monitor. 04/04/2018 Appointment: Mishel Balderrama WPtel: [address] [place], [place] [address] (15 min) Moderate 04/04/2018 Patient Education: Patient Medication Summary Completed 04/04/2018 Visit Plan: Wound Instructions - Pt was instructed to keep the wound clean, wash with antibacterial soap, use triple antibiotic ointment, call if redness, pustular drainage, or any other acute concerns. 01/19/2018 Appointment: [phone] [phone] (30 min) Complex 01/19/2018 Patient Education: Patient [...] concerns. 01/05/2018 Appointment: [phone] [phone] (30 min) Complex 01/05/2018 Patient Education: [...] improve. 11/29/2017 Appointment: [facility] Bal[phone] [facility] [place] ([place]) Complex 11/29/2017 Patient [...] improve. 10/25/2017 Appointment: Mis[facility] Balderr[facility] [phone] [facility] [place] ([place]) Complex 10/25/2017 Patient [...] peripheral edema. 09/12/2017 Appointment: Mis[facility] Balderr[phone] [facility] [place] ([place]) Complex 09/12/2017 Patient Education: Patient Medication Summary Completed 09/12/2017 Appointment: [facility] [phone] [phone] [place] (30 min) Complex 06/27/2017 Visit [...] acute changes. 06/14/2017 Appointment: Mis[facility] Bal[facility] [phone] [facility] [place] (15 min) Moderate 06/14/2017 Patient [...] acute changes 05/10/2017 Appointment: Mis[facility]atel[facility] [phone] [facility] [place] (15 min) Moderate 05/10/2017 Patient [...] changes. 04/19/2017 Appointment: [facility] Bal[phone] [facility] [place] (15 min) Moderate 04/19/2017 Patient [...] on previous levels of control. Low back dzci-wzxnsvq-lbotmz tramadol for prn use 03/27/2017 Appointment: Lynn Arenas WPtel: [phone] [phone] (30 min) Complex 03/27/2017 Patient Education: [...] Damari Finn WPtel: [facility] (15 min) Moderate 01/26/2017 Patient Education: Patient [...] or concerns. 12/07/2016 Appointment: Mishel Balderrama WPtel: [facility] (15 min) Moderate 12/07/2016 Patient Education: [...] for dyspnea/persistent wheezing/asthma symptoms. 11/28/2016 Appointment: Mishel Balderramatel: [facility] (15 min) Moderate 11/28/2016 Patient Education: Patient Medication Summary Completed 11/28/2016 Appointment: Mishel Balderramatel: [address] [place], [place] [phone] (15 min) Moderate 11/24/2016 Visit Plan: Bronchitis [...] for acute changes. 11/15/2016 Appointment: Mishel Balderramatel: [facility]5 [facility] (30 min) Complex 11/15/2016 Patient Education: [...] acute changes. 10/17/2016 Appointment: Mishel Balderrama WPtel: [phone] [facility] (30 min) Complex 10/17/2016 Patient Education: [...] tylenol 09/28/2016 Appointment: Damari Finn WPtel: [phone] [facility] (15 min) Moderate 09/28/2016 Patient Education: Patient [...] control. 06/29/2016 Appointment: Lynn Arenas WPtel: [phone] [phone] (15 min) Moderate 06/29/2016 Patient Education: [...] fluconazole 06/01/2016 Appointment: Damari Finn WPtel: [phone] [facility] (15 min) Moderate 06/01/2016 Patient Education: Patient Medication Summary Completed 06/01/2016 Patient Education: Obesity Completed 06/01/2016 Visit Plan: Cellulitis - continue w ith oral antibiotics as previously directed, return to clinic as previously directed, call for acute change in symptoms, worsening redness, warmth, discharge. 05/11/2016 Appointment: Damari Finn WPtel: [phone] [facility] (15 min) Moderate 05/11/2016 Patient [...] Lynn Arenas WPtel: [phone] (30 min) Complex 04/01/2016 Patient Education: Patient Medication Summary Completed 04/01/2016 Patient Education: Obesity Completed 04/01/2016 Appointment: Lynn Arenas WPtel: [phone] (30 min) Complex 03/29/2016 Visit Plan: [...] levels of control. Low back pain-refill tramadol Gochc-towwpqblsb-erynkqvk resolved 01/26/2016 Appointment: Lynn Arenas WPtel: [phone] (30 min) Complex 01/26/2016 Patient Education: Patient Medication Summary Completed 01/26/2016 Patient Education: Obesity Completed 01/26/2016 Care Plan: BMI Above normal followup RADHA F-MGMT EDUC & TRAIN 1 PT Pending 01/26/2016 Care Plan: Referral Order SNOMED-CT : [id number] Pending 01/07/2016 Appointment: Lynn [facility]Ptel[facility] [phone] [phone] [place] (15 min) Moderate 12/24/2015 Visit [...] improving. 06/01/2015 Appointment: Damari Finn WPtel: [facility] (15 min) Moderate 06/01/2015 Patient Education: [...] Finn WPtel[facility] [facility] follow up 12/11/2014 Patient Education: Patient Medication Summary Completed 12/11/2014 Patient Education: Hypertension Completed 12/11/2014 Appointment: Damari Finn WPtel: [address] [place], [place] [phone] [facility] follow up 11/27/2014 Visit Plan: Hidradenitis [...] get her back MRI done at [facility] in [place] as that is where her specialist will be once we get her an appt with one of the local Neurosurgeons. 09/18/2014 Appointment: Damari Finn WPtel: [facility] Follow up 09/18/2014 Patient Education: Patient Medication Summary Completed 09/18/2014 Patient Education: Hypertension Completed 09/18/2014 Visit Plan: Hypertension - well cat faye [...] scheduled 07/31/2014 Appointment: Lynn [facility]el[facility] [phone] [phone] [place] New Patient 07/31/2014 Patient Education: [...] referral to Dr. Daugherty. Will refer pt. Declined Procedure: (12715) FLU VAC NO PRSV 4 JUSTYNA 3 YRS+; Declined Reason: refused Physical therapy at [facility] . Hypertension - well controlled [...] up with Dr Lincoln as scheduled . Edema - pt has bee n [...] is worsening or does not improve. . Cellulitis - oleg nue with oral antibiotics as previously directed, return to clinic as previously directed, call for acute change in symptoms, worsening redness, warmth, discharge. . Skin infection - r ecommended treatment with oral antibiotic and topical antibiotic. Pt to call if nor improving. Start zyrtec - one d aily Steroid shot today in office Mucinex as needed for congestion cough syrup Let me know if it is not improving. . 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 Chronic back pain - refill tramadol hidradenitis suppura tiva USE ANTIBACTERIAL SOAP ASTRINGENT [...] get her back MRI done at [facility] in [place] as that is where her specialist will be once we get her an appt with one of the local Neurosurgeons. increase synthroid t o 200 mcg . Hypothyroidism- pt with chronic hypoth yroidism, After consultation with Dr. Finn, will increase Synthroid to 200 mcg per day and recheck labs in 3 months. Pt is to monitor fingernail redness. CBC, CMP checked today. . Wound Instructions - Pt was instructed [...] . 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 Low back njsm-ihhviuj-dhuduk tramadol for prn use . Brittle fingernail [...] levels of control. Low back pain-refill tramadol Biifz-ihxnlwzwxe-equvoynm resolved restart lisinopril/h CTZ - this will help [...] months based on previous levels of control. INCREASE LEVOTHYROXI NE TO 137MCG DAILY REPEAT [...]
--- OUTSIDE RECORDS SUMMARY | 2020-02-20 19:19 | XMS REPORT | CCD ---
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 Unknown Has never used illegal drugs 014 Allergies, Adverse Reactions, Alerts Substance Reaction Codes Entered Date Inactivated Date Status * NO KNOWN FOOD BEVERLY RGIES Unknown 07/31/2014 No Inactive Date Active bactrim hives, rash RxNorm: 730324 04/05/2016 No Inactive Date Active Past Medical [...] Date Stop Date Sta tus Fill Instructions Keflex 500 mg capsule RxNorm: 530293 1 Capsule(s) PO TID 12/05/2018 12/11/2018 Active tramadol 50 mg tablet RxNorm: 429729 1 Tablet(s) PO Q4 PRN as needed for pain 12/05/2018 01/13/2019 Ac tive ciprofloxacin 0.3 % eye drops RxNorm: 177601 INSTILL TWO DROPS TO THE AFFECTED EYE(S) THREE TIMES A DAY 11/23/2018 12/25/2018 Active levothyroxine 137 mc g tablet RxNorm: 237769 1 Tablet(s) PO daily TAKE ONE TABLET BY MOUTH DAILY ON AN EMPTY STOMACH 10/30/2018 01/22/2020 Active ProAir HFA 90 mcg/ac tuation aerosol inhaler RxNorm: 7038056 1-2 Puff(s) INH Q4 P RN INHALE 1 TO 2 PUFFS FOUR TIMES A DAY NEEDED FOR ASTHMA 10/30/2018 01/27/2019 Active tramadol 50 mg tablet RxNorm: 123258 1 Tablet(s) PO Q4 PRN as needed for pain 10/29/2018 12/04/2018 In active lorazepam 1 mg tablet RxNorm: 985132 Tablet(s) TAKE TWO TABLETS BY MOUTH AT B EDTIME NEEDED FOR INSOMNIA AND ONE TABLET DAILY NEEDED ANXIETY 09/06/2018 11/04/2018 Inactive levothyroxine 125 mc g tablet RxNorm: 770605 1 Tablet(s) PO daily TAKE ONE TABLET BY MOUTH DAILY ON AN EMPTY STOMACH 09/06/2018 10/29/2018 Inactive tramadol 50 mg tablet RxNorm: 670575 1 Tablet(s) PO Q4 PRN as needed for pain 09/06/2018 10/15/2018 In active tramadol 50 mg tablet RxNorm: 500072 1 Tablet(s) PO Q4 PRN as needed for pain 07/06/2018 08/14/2018 In active ciprofloxacin 0.3 % eye drops RxNorm: 648010 2 Drop(s) ophthalmic (eye) TID 06/28/2018 07/07/2018 In active lorazepam 1 mg tablet RxNorm: 527053 Tablet(s) TAKE TWO TABLETS BY MOUTH AT B EDTIME NEEDED FOR INSOMNIA AND ONE TABLET DAILY NEEDED ANXIETY 06/28/2018 08/26/2018 Inactive doxycycline hyclate 100 mg tablet RxNorm: 6469687 1 Tablet(s) PO BID 06/28/2018 07/04/2018 Inactive tramadol 50 mg tablet RxNorm: 157808 1 Tablet(s) PO Q4 PRN as needed for pain 06/13/2018 07/05/2018 In active lorazepam 1 mg tablet RxNorm: 003043 Tablet(s) TAKE TWO TABLETS BY MOUTH AT B EDTIME NEEDED FOR INSOMNIA AND ONE TABLET DAILY NEEDED ANXIETY 05/23/2018 06/27/2018 Inactive tramadol 50 mg tablet RxNorm: 966353 1 Tablet(s) PO Q4 PRN as needed for pain 05/23/2018 06/12/2018 In active levothyroxine 125 mc g tablet RxNorm: 711668 Tablet(s) TAKE ONE TA BLET BY MOUTH DAILY ON AN EMPTY STOMACH 05/23/2018 09/05/2018 Inactive tramadol 50 mg tablet RxNorm: 498089 1 Tablet(s) PO Q4 PRN as needed for pain 05/17/2018 05/22/2018 In active levothyroxine 125 mc g tablet RxNorm: 279010 TAKE ONE TABLET BY MO [facility] DAILY 05/15/2018 06/27/2018 In active levothyroxine 125 mc g tablet RxNorm: 187428 TAKE ONE TABLET BY [facility] DAILY 05/15/2018 06/27/2018 In active tramadol 50 mg tablet RxNorm: 043856 1 Tablet(s) PO Q4 PRN as needed for pain 04/30/2018 05/16/2018 In active Advair Diskus 100 mc g-50 mcg/dose powder for inhalation RxNorm: 6085894 1 Puff(s) INH BID 04/06/2018 No Stop Date Active Symbicort 80 mcg-4.5 mcg/actuation HFA aerosol inhaler RxNorm: 1646581 2 Puff(s) INH BID 04/06/2018 No Stop Date Active Advair Diskus 250 mc g-50 mcg/dose powder for inhalation RxNorm: 3759502 1 Puff(s) INH BID 04/05/2018 09/01/2018 Inactive Zyrtec 10 mg tablet RxNorm: 0441268 1 Tablet(s) PO daily x1 week then PRN 04/05/2018 08/02/2018 In active lisinopril 20 mg-hyd rochlorothiazide 25 mg tablet RxNorm: 278053 Tablet(s) TAKE ONE TABLET BY MOUTH DAILY 04/05/2018 10/29/2018 Inactive Zyrtec 10 mg tablet RxNorm: 4034988 1 Tablet(s) PO daily 04/04/2018 05/03/2018 Inactive tramadol 50 mg tablet RxNorm: 788126 1 Tablet(s) PO Q4 PRN as needed for pain 03/13/2018 04/21/2018 In active lorazepam 1 mg tablet RxNorm: 460259 Tablet(s) TAKE TWO TABLETS BY MOUTH AT B EDTIME NEEDED FOR INSOMNIA AND ONE TABLET DAILY NEEDED ANXIETY 03/02/2018 04/30/2018 Inactive levothyroxine 125 mc g tablet RxNorm: 169809 1 Tablet(s) PO daily 02/06/2018 05/06/2018 Inactive levothyroxine 125 mc g tablet RxNorm: 264474 TAKE ONE TABLET BY MO [facility] DAILY ON AN EMPTY STOMACH 02/06/2018 05/22/2018 Inactive tramadol 50 mg tablet RxNorm: 550287 1 Tablet(s) PO Q4 PRN as needed for pain 01/26/2018 03/06/2018 In active lorazepam 1 mg tablet RxNorm: 317079 Tablet(s) TAKE TWO TABLETS BY MOUTH AT B EDTIME NEEDED FOR INSOMNIA AND ONE TABLET DAILY NEEDED ANXIETY 01/23/2018 06/27/2018 Inactive Symbicort 80 mcg-4.5 mcg/actuation HFA aerosol inhaler RxNorm: 7353619 INH 01/05/2018 06/27/2018 In active tramadol 50 mg tablet RxNorm: 919336 1 Tablet(s) PO Q4 PRN as needed for pain 01/04/2018 01/25/2018 In active Advair Diskus 250 mc g-50 mcg/dose powder for inhalation RxNorm: 3505619 1 Puff(s) INH BID 11/29/2017 03/28/2018 Inactive hydrochlorothiazide 12.5 mg tablet RxNorm: 051895 1 Tablet(s) PO daily 11/29/2017 12/28/2017 In active tramadol 50 mg tablet RxNorm: 229533 1 Tablet(s) PO Q4 PRN as needed for pain 11/23/2017 01/01/2018 In active tramadol 50 mg tablet RxNorm: 282134 1 Tablet(s) PO Q4 PRN as needed for pain 10/06/2017 11/14/2017 In active lorazepam 1 mg tablet RxNorm: 008749 Tablet(s) TAKE TWO TABLETS BY MOUTH AT B EDTIME NEEDED FOR INSOMNIA AND ONE TABLET DAILY NEEDED ANXIETY 09/12/2017 06/27/2018 Inactive tramadol 50 mg tablet RxNorm: 699810 1 Tablet(s) PO Q4 PRN as needed for pain 09/12/2017 10/05/2017 In active tramadol 50 mg tablet RxNorm: 977566 1 Tablet(s) PO Q4 PRN as needed for pain 08/15/2017 09/11/2017 In active tramadol 50 mg tablet RxNorm: 376328 1 Tablet(s) PO Q4 PRN as needed for pain 06/29/2017 08/07/2017 In active ProAir HFA 90 mcg/ac tuation aerosol inhaler RxNorm: 6685181 INHALE 1 TO 2 PUFFS FOUR TIMES A DAY NEEDED FOR ASTHMA 06/14/2017 11/10/2017 Inactive prednisone 20 mg tablet RxNorm: 007104 1 Tablet(s) PO BID x 2 days, then 1 pill daily x 3 days, then 1/2 pill every other day x 3 doses. 06/14/2017 09/11/2017 Inactive Kenalog 40 mg/mL madhavi pension for injection RxNorm: 6669101 1 Milliliter(s) Inj 06/14/2017 06/14/2017 In active Zyrtec 10 mg tablet RxNorm: 8813052 1 Tablet(s) PO daily 06/14/2017 07/13/2017 Inactive tramadol 50 mg tablet RxNorm: 065525 1 Tablet(s) PO Q4 PRN as needed for pain 06/08/2017 06/27/2017 In active [SAVINGS FOR UNINSURED PATIENTS -- BIN:0 45811, PCN: ASPROD1, Group: [id number], ID# [id number], Process claim through [employer], for questions: . THIS IS NOT INSURANCE.] tramadol 50 mg tablet RxNorm: 954625 1 Tablet(s) PO Q4 PRN as needed for pain 05/16/2017 06/04/2017 In active [SAVINGS FOR UNINSURED PATIENTS -- BIN:0 82764, PCN: ASPROD1, Group: AME08, ID# [id number], Process claim through [employer], for questions: . THIS IS NOT INSURANCE.] lorazepam 1 mg tablet RxNorm: 269852 Tablet(s) TAKE TWO TABLETS BY MOUTH AT B EDTIME NEEDED FOR INSOMNIA AND ONE TABLET DAILY NEEDED ANXIETY 05/16/2017 08/13/2017 Inactive Lasix 20 mg tablet RxNorm: 444853 1 Tablet(s) PO daily 05/10/2017 05/09/2017 Inactive Lasix 20 mg tablet RxNorm: 196432 1 Tablet(s) PO daily 05/10/2017 05/12/2017 Inactive potassium chloride E R 10 mEq tablet,extended release RxNorm: 962207 1 Tablet(s) PO daily while on the lasix 05/10/2017 05/09/2017 Inactive potassium chloride E R 10 mEq tablet,extended release RxNorm: 582754 1 Tablet(s) PO daily while on the lasix 05/10/2017 05/12/2017 Inactive prednisone 20 mg tablet RxNorm: 928621 1 Tablet(s) PO BID x 2 days, then 1 pill daily x 3 days, then 1/2 pill every other day x 3 doses. 04/19/2017 06/13/2017 Inactive Zithromax Z-Linus 250 mg tablet RxNorm: 741333 1 Tablet(s) PO UD 04/13/2017 06/28/2017 Inactive prednisone 20 mg tablet RxNorm: 634261 1 Tablet(s) PO BID 04/13/2017 04/17/2017 Inactive levothyroxine 125 mc g tablet RxNorm: 371593 1 Tablet(s) PO daily 04/11/2017 10/07/2017 Inactive tramadol 50 mg tablet RxNorm: 411966 1 Tablet(s) PO Q4 PRN as needed for pain 03/27/2017 04/15/2017 In active [SAVINGS FOR UNINSURED PATIENTS -- BIN:0 65732, PCN: ASPROD1, Group: AME08, ID# [id number], Process claim through [employer], for questions: . THIS IS NOT INSURANCE.] Kenalog 40 mg/mL madhavi pension for injection RxNorm: 3168759 1 Milliliter(s) Inj 03/27/2017 03/27/2017 In active tramadol 50 mg tablet RxNorm: 952541 1 Tablet(s) PO Q4H as needed for pain 03/09/2017 03/26/2017 In active [SAVINGS FOR UNINSURED PATIENTS -- BIN:0 13979, PCN: ASPROD1, Group: [id number], ID# [id number], Process claim through [employer], for questions: . THIS IS NOT INSURANCE.] lisinopril 20 mg-hyd rochlorothiazide 25 mg tablet RxNorm: 619932 TAKE ONE TABLET BY MOUTH DAILY 01/29/2017 11/21/2017 Inactive lorazepam 1 mg tablet RxNorm: 889139 Tablet(s) TAKE TWO TABLETS BY MOUTH AT B EDTIME NEEDED FOR INSOMNIA AND ONE TABLET DAILY NEEDED ANXIETY 01/05/2017 04/04/2017 Inactive tramadol 50 mg tablet RxNorm: 644922 1 Tablet(s) PO Q4H as needed for pain 12/07/2016 01/13/2017 In active [SAVINGS FOR UNINSURED PATIENTS -- BIN:0 46759, PCN: ASPROD1, Group: AME08, ID# [id number], Process claim through [employer], for questions: . THIS IS NOT INSURANCE.] Kenalog 40 mg/mL madhavi pension for injection RxNorm: 6378002 Milliliter(s) Inj 12/07/2016 12/07/2016 In active nystatin 100,000 uni t/mL oral suspension RxNorm: 888121 4 Milliliter(s) PO QI D 12/07/2016 12/11/2016 In active Francia-D 12 Hour 60 mg-120 mg tablet,extended release RxNorm: 098424 1 Tablet(s) PO BID 12/07/2016 01/11/2017 Inactive lorazepam 1 mg tablet RxNorm: 719831 Tablet(s) TAKE TWO TABLETS BY MOUTH AT B EDTIME AND ONE TABLET DAILY NEEDED 12/07/2016 01/04/2017 Inactive (Response to an electronic controlled substance refill request - [id number]) albuterol sulfate 2. 5 mg/3 mL (0.083 %) solution for nebulization RxNorm: 209302 3 Milliliter(s) INH TID 11/29/2016 11/28/2016 Inactive prednisone 10 mg tablet RxNorm: 290743 Tablet(s) PO UD 11/29/2016 12/05/2016 Inactive 6,5,4,3,2,1 doxycycline hyclate 100 mg tablet RxNorm: 738172 1 Tablet(s) PO BID 11/29/2016 12/04/2016 Inactive albuterol sulfate 2. 5 mg/3 mL (0.083 %) solution for nebulization RxNorm: 175899 3 Milliliter(s) INH TID 11/29/2016 12/03/2016 Inactive Kenalog 40 mg/mL madhavi pension for injection RxNorm: 4159884 Milliliter(s) Inj 11/28/2016 11/28/2016 In active tramadol 50 mg tablet RxNorm: 397968 1 Tablet(s) PO Q4H as needed for pain 11/15/2016 12/06/2016 In active [SAVINGS FOR UNINSURED PATIENTS -- BIN:0 11040, PCN: ASPROD1, Group: AME08, ID# [id number], Process claim through [employer], for questions: . THIS IS NOT INSURANCE.] prednisone 20 mg tablet RxNorm: 382865 2 Tablet(s) PO daily 11/15/2016 11/19/2016 Inactive Advair Diskus 100 mc g-50 mcg/dose powder for inhalation RxNorm: 7150181 1 Puff(s) INH BID 11/15/2016 06/11/2017 Inactive ProAir HFA 90 mcg/ac tuation aerosol inhaler RxNorm: 870014 INHALE 1 TO 2 PUFFS F OUR TIMES A DAY NEEDED FOR ASTHMA 11/15/2016 04/13/2017 Inactive Zithromax Z-Linus 250 mg tablet RxNorm: 330565 1 Tablet(s) PO UD 11/15/2016 11/27/2016 Inactive Zyrtec 10 mg tablet RxNorm: 1642857 1 Tablet(s) PO daily 10/17/2016 11/15/2016 Inactive Keflex 500 mg capsule RxNorm: 603665 1 Capsule(s) PO TID 10/17/2016 10/23/2016 Inactive prednisone 10 mg tablet RxNorm: 651184 Tablet(s) PO UD 10/17/2016 11/28/2016 Inactive 6,5,4,3,2,1 tramadol 50 mg tablet RxNorm: 409146 1 Tablet(s) PO Q4H as needed for pain 09/28/2016 11/06/2016 In active [SAVINGS FOR UNINSURED PATIENTS -- BIN:0 34893, PCN: ASPROD1, Group: AME08, ID# [id number], Process claim through [employer], for questions: . THIS IS NOT INSURANCE.] ProAir HFA 90 mcg/ac tuation aerosol inhaler RxNorm: 953063 INHALE 1 TO 2 PUFFS F OUR TIMES A DAY NEEDED FOR ASTHMA 09/15/2016 11/14/2016 Inactive doxycycline hyclate 100 mg tablet RxNorm: 987363 1 Tablet(s) PO BID 09/15/2016 09/24/2016 Inactive doxycycline hyclate 100 mg tablet RxNorm: 995114 1 Tablet(s) PO BID 07/29/2016 08/07/2016 Inactive tramadol 50 mg tablet RxNorm: 875496 1 Tablet(s) PO Q4H as needed for pain 07/29/2016 09/06/2016 In active [SAVINGS FOR UNINSURED PATIENTS -- BIN:0 44966, PCN: ASPROD1, Group: [id number], ID# [id number], Process claim through [employer], for questions: . THIS IS NOT INSURANCE.] lorazepam 1 mg tablet RxNorm: 887786 Tablet(s) TAKE TWO TABLETS BY MOUTH AT B EDTIME AND ONE TABLET DAILY NEEDED 07/29/2016 10/26/2016 Inactive (Response to an electronic controlled substance refill request - RxReferenceNumber: [id number]) levothyroxine 125 mc g tablet RxNorm: 455016 1 Tablet(s) PO daily 06/29/2016 06/29/2016 Inactive levothyroxine 137 mc g tablet RxNorm: 565332 1 Tablet(s) PO daily 06/29/2016 12/25/2016 Inactive ketoconazole 2 % sha mpoo RxNorm: 340669 1 Application TOP BID 06/29/2016 07/03/2016 Inactive tramadol 50 mg tablet RxNorm: 030232 1 Tablet(s) PO Q4H as needed for pain 06/16/2016 07/25/2016 In active [SAVINGS FOR UNINSURED PATIENTS -- BIN:0 25682, PCN: ASPROD1, Group: AME08, ID# [id number], Process claim through [employer], for questions: . THIS IS NOT INSURANCE.] Bactroban 2 % topica l ointment RxNorm: 046093 APPLY TO AFFECTED ARE A(S) TWO TIMES A DAY 06/16/2016 04/16/2017 Inactive fluconazole 150 mg t ablet RxNorm: 598339 1 Tablet(s) PO daily 06/01/2016 06/05/2016 Inactive gentamicin 0.1 % top ical ointment RxNorm: 963673 1 Application TOP QID 05/12/2016 05/25/2016 In active metronidazole 500 mg tablet RxNorm: 328951 1 Tablet(s) PO TID 05/11/2016 05/24/2016 Inactive gentamicin 0.1 % top ical ointment RxNorm: 311479 1 Application TOP QID 05/11/2016 05/11/2016 In active doxycycline hyclate 100 mg tablet RxNorm: 301265 1 Tablet(s) PO BID 05/11/2016 05/24/2016 Inactive lorazepam 1 mg tablet RxNorm: 576980 Tablet(s) TAKE TWO TABLETS BY MOUTH AT B EDTIME AND ONE TABLET DAILY NEEDED 05/02/2016 07/28/2016 Inactive (Response to an electronic controlled substance refill request - RxReferenceNumber: [id number]) Diflucan 150 mg tablet RxNorm: 064304 1 Tablet(s) PO daily x5 days then 1 x we ekly x 4 weeks. 05/02/2016 04/10/2017 Inactive Diflucan 150 mg tablet RxNorm: 274857 1 Tablet(s) PO every other day 04/19/2016 04/28/2016 In active Diflucan 150 mg tablet RxNorm: 982988 1 Tablet(s) PO every other day 04/19/2016 04/18/2016 In active Diflucan 150 mg tablet RxNorm: 680338 1 Tablet(s) PO daily 04/05/2016 04/11/2016 Inactive mupirocin 2 % topica l ointment RxNorm: 146465 1 Application TOP BID 04/05/2016 05/04/2016 Inactive tramadol 50 mg tablet RxNorm: 620398 1 Tablet(s) PO Q4H as needed for pain 04/05/2016 05/14/2016 In active [SAVINGS FOR UNINSURED PATIENTS -- BIN:0 13938, PCN: ASPROD1, Group: AME08, ID# [id number], Process claim through [employer], for questions: . THIS IS NOT INSURANCE.] prednisone 10 mg tablet RxNorm: 306608 Tablet(s) PO UD 04/01/2016 09/26/2016 Inactive 6,5,4,3,2,1 levothyroxine 137 mc g tablet RxNorm: 266567 1 Tablet(s) PO daily 03/21/2016 03/20/2016 Inactive levothyroxine 137 mc g tablet RxNorm: 073108 1 Tablet(s) PO daily 03/21/2016 06/28/2016 Inactive Advair Diskus 100 mc g-50 mcg/dose powder for inhalation RxNorm: 6592958 1 Puff(s) INH BID 01/26/2016 05/24/2016 Inactive tramadol 50 mg tablet RxNorm: 097949 1 Tablet(s) PO Q4H as needed for pain 01/26/2016 03/05/2016 In active [SAVINGS FOR UNINSURED PATIENTS -- BIN:0 72113, PCN: ASPROD1, Group: AME08, ID# [id number], Process claim through [employer], for questions: . THIS IS NOT INSURANCE.] Bactroban 2 % topica l ointment RxNorm: 662640 APPLY TO AFFECTED ARE A(S) TWO TIMES A DAY 12/22/2015 12/31/2015 Inactive Bactrim DS 800 mg-16 0 mg tablet RxNorm: 552433 TAKE ONE TABLET BY [facility] TWICE A DAY 12/22/2015 04/18/2016 In active Bactrim DS 800 mg-16 0 mg tablet RxNorm: 361198 1 Tablet(s) PO BID 12/21/2015 12/30/2015 Inactive lisinopril 20 mg-hyd rochlorothiazide 25 mg tablet RxNorm: 318417 1 Tablet(s) PO daily 12/21/2015 06/17/2016 Inactive [SAVINGS FOR UNINSURED PATIENTS -- BIN:0 22769, PCN: ASPROD1, Group: AME08, ID# [id number], Process claim through [employer], for questions: . THIS IS NOT INSURANCE.] tramadol 50 mg tablet RxNorm: 961143 1 Tablet(s) PO Q4H as needed for pain 12/03/2015 01/11/2016 In active [SAVINGS FOR UNINSURED PATIENTS -- BIN:0 14731, PCN: ASPROD1, Group: AME08, ID# [id number], Process claim through [employer], for questions: . THIS IS NOT INSURANCE.] lorazepam 1 mg tablet RxNorm: 237641 Tablet(s) TAKE TWO TABLETS BY MOUTH AT B EDTIME AND ONE TABLET DAILY NEEDED 11/26/2015 06/27/2018 Inactive (Response to an electronic controlled substance refill request - RxReferenceNumber: [id number]) Bactrim DS 800 mg-16 0 mg tablet RxNorm: 779431 1 Tablet(s) PO BID 11/25/2015 12/04/2015 Inactive levothyroxine 150 mc g tablet RxNorm: 337420 1 Tablet(s) PO daily 11/25/2015 03/20/2016 Inactive Bactroban 2 % topica l ointment RxNorm: 704025 1 Application TOP BID 10/12/2015 10/21/2015 Inactive Bactrim DS 800 mg-16 0 mg tablet RxNorm: 181809 1 Tablet(s) PO BID 09/07/2015 09/06/2015 Inactive Bactrim DS 800 mg-16 0 mg tablet RxNorm: 610101 1 Tablet(s) PO BID 09/07/2015 09/16/2015 Inactive lorazepam 1 mg tablet RxNorm: 232880 Tablet(s) TAKE TWO TABLETS BY MOUTH AT B EDTIME AND ONE TABLET DAILY NEEDED 08/28/2015 11/24/2015 Inactive (Response to an electronic controlled substance refill request - [facility] [id number]) levothyroxine 175 mc g tablet RxNorm: 239393 1 Tablet(s) PO daily 08/24/2015 11/24/2015 Inactive tramadol 50 mg tablet RxNorm: 145538 1 Tablet(s) PO Q4H as needed for pain 08/24/2015 09/11/2017 In active [SAVINGS FOR UNINSURED PATIENTS -- BIN:0 47391, PCN: ASPROD1, Group: [id number], ID# [id number], Process claim through [employer], for questions: . THIS IS NOT INSURANCE.] lisinopril 20 mg-hyd rochlorothiazide 25 mg tablet RxNorm: 684341 1 Tablet(s) PO daily TAKE 1 TABLET BY MOUTH DAILY 08/24/2015 06/27/2018 Inactive ProAir HFA 90 mcg/ac tuation aerosol inhaler RxNorm: 220662 1-2 Puff(s) INH PRN I NHALE ONE TO TWO PUFFS BY MOUTH FOUR TIMES A DAY NEEDED FOR ASTHMA 08/24/2015 12/01/2015 In active ProAir HFA 90 mcg/ac tuation aerosol inhaler RxNorm: 6223571 INHALE ONE TO TWO PU FFS BY MOUTH FOUR TIMES A DAY NEEDED FOR ASTHMA 08/17/2015 08/23/2015 Inactive Advair Diskus 250 mc g-50 mcg/dose powder for inhalation RxNorm: 4120299 1 Puff(s) INH BID 07/20/2015 07/19/2015 Inactive Advair Diskus 250 mc g-50 mcg/dose powder for inhalation RxNorm: 1627081 1 Puff(s) INH BID 07/20/2015 11/16/2015 Inactive tramadol 50 mg tablet RxNorm: 021158 1 Tablet(s) PO Q4H as needed for pain 07/10/2015 08/17/2015 In active [SAVINGS FOR UNINSURED PATIENTS -- BIN:0 21768, PCN: ASPROD1, Group: [id number], ID# [id number], Process claim through [employer], for questions: . THIS IS NOT INSURANCE.] Zithromax Z-Linus 250 mg tablet RxNorm: 359091 1 Tablet(s) PO UD 07/10/2015 01/18/2016 Inactive Keflex 500 mg capsule RxNorm: 236330 1 Capsule(s) PO TID 06/01/2015 06/07/2015 Inactive mupirocin 2 % topica l ointment RxNorm: 956205 1 Application TOP TID 06/01/2015 06/10/2015 Inactive lisinopril 20 mg-hyd rochlorothiazide 25 mg tablet RxNorm: 367502 TAKE 1 TABLET BY MOUT H DAILY 05/30/2015 08/23/2015 Inactive lisinopril 20 mg-hyd rochlorothiazide 25 mg tablet RxNorm: 771271 1 Tablet(s) PO daily 05/29/2015 11/24/2015 Inactive [SAVINGS FOR UNINSURED PATIENTS -- BIN:0 88334, PCN: ASPROD1, Group: AME08, ID# [id number], Process claim through [employer], for questions: . THIS IS NOT INSURANCE.] lorazepam 1 mg tablet RxNorm: 940395 Tablet(s) TAKE TWO TABLETS BY MOUTH AT B EDTIME AND ONE TABLET DAILY NEEDED 04/17/2015 07/13/2015 Inactive (Response to an electronic controlled substance refill request - RxReferenceNumber: [id number]) levothyroxine 200 mc g tablet RxNorm: 531055 1 Tablet(s) PO daily 03/12/2015 08/23/2015 Inactive [SAVINGS FOR UNINSURED PATIENTS -- BIN:0 78296, PCN: ASPROD1, Group: [id number], ID# [id number], Process claim through [employer], for questions: . THIS IS NOT INSURANCE.] lisinopril 20 mg-hyd rochlorothiazide 25 mg tablet RxNorm: 633055 1 Tablet(s) PO daily 03/11/2015 05/28/2015 Inactive [SAVINGS FOR UNINSURED PATIENTS -- BIN:0 15536, PCN: ASPROD1, Group: AME08, ID# [id number], Process claim through [employer], for questions: . THIS IS NOT INSURANCE.] levothyroxine 175 mc g tablet RxNorm: 571025 1 Tablet(s) PO daily 03/09/2015 03/11/2015 Inactive recheck blood in 3 months- THIS IS CORRE CT DOSAGE levothyroxine 175 mc g tablet RxNorm: 125616 1 Tablet(s) PO daily 03/09/2015 03/08/2015 Inactive recheck blood in 3 months levothyroxine 150 mc g tablet RxNorm: 097093 1 Tablet(s) PO daily 03/09/2015 03/08/2015 Inactive recheck blood in 3 months lorazepam 1 mg tablet RxNorm: 191763 TAKE TWO TABLETS BY MOUTH AT BEDTIME AND ONE TABLET DAILY NEEDED 12/25/2014 01/22/2015 Inactive (Response to an electronic controlled substance refill request - RxReferenceNumber: [id number]) lorazepam 1 mg tablet RxNorm: 572721 Tablet(s) TAKE TWO TABLETS BY MOUTH EVER Y NIGHT AT BEDTIME AND TAKE ONE TABLET BY MOUTH DAILY NEEDED 12/23/2014 12/25/2014 Inactive (Response to an electronic controlled north bstance refill request - RxReferenceNumber: [id number]) levothyroxine 150 mc g tablet RxNorm: 905762 1 Tablet(s) PO daily 12/12/2014 03/08/2015 Inactive recheck blood in 3 months Diflucan 150 mg tablet RxNorm: 756815 1 Tablet(s) PO every other day (start af ter finished with Cipro) 11/17/2014 08/23/2015 Inactive tramadol 50 mg tablet RxNorm: 979272 1 Tablet(s) PO Q4H as needed for pain 11/10/2014 12/17/2014 In active [SAVINGS FOR UNINSURED PATIENTS -- BIN:0 93458, PCN: ASPROD1, Group: AME08, ID# [id number], Process claim through [employer], for questions: . THIS IS NOT INSURANCE.] Cipro 500 mg tablet RxNorm: 170028 1 Tablet(s) PO BID 10/23/2014 10/29/2014 Inactive Flagyl 500 mg tablet RxNorm: 773456 1 Tablet(s) PO TID 10/23/2014 10/29/2014 Inactive Cipro 500 mg tablet RxNorm: 564065 1 Tablet(s) PO BID 10/23/2014 10/22/2014 Inactive Flagyl 500 mg tablet RxNorm: 095999 1 Tablet(s) PO TID 10/23/2014 10/22/2014 Inactive Diflucan 150 mg tablet RxNorm: 057675 1 Tablet(s) PO every other day (start af ter finished with Cipro) 10/23/2014 11/16/2014 Inactive lorazepam 1 mg tablet RxNorm: 863342 TAKE TWO TABLETS BY MOUTH EVERY NIGHT AT BEDTIME AND TAKE ONE TABLET BY MOUTH DAILY NEEDED 10/21/2014 10/21/2014 Inactive (Response to an electronic controlled north bstance refill request - RxReferenceNumber: [id number]) lorazepam 1 mg tablet RxNorm: 735577 TAKE TWO TABLETS BY MOUTH EVERY NIGHT AT BEDTIME AND TAKE ONE TABLET BY MOUTH DAILY NEEDED 10/21/2014 11/18/2014 Inactive (Response to an electronic controlled north bstance refill request - RxReferenceNumber: [id number]) lorazepam 1 mg tablet RxNorm: 588578 Tablet(s) TAKE TWO TABLETS BY MOUTH AT B EDTIME, ALSO TAKE ONE TABLET BY MOUTH DAILY NEEDED 10/13/2014 10/21/2014 Inactive (Res ponse to an electronic controlled substance refill request - RxReferenceNumber: [id number]) ProAir HFA 90 mcg/ac tuation aerosol inhaler RxNorm: 1379151 1-2 inhale INH QID a s needed ASTHMA 10/13/2014 12/26/2014 Inactive ProAir HFA 90 mcg/ac tuation aerosol inhaler RxNorm: 4180005 1-2 inhale INH QID a s needed ASTHMA 09/18/2014 10/12/2014 Inactive meloxicam 7.5 mg tablet RxNorm: 198565 1 Tablet(s) PO daily 09/18/2014 03/10/2015 Inactive [SAVINGS FOR UNINSURED PATIENTS -- BIN:[id number], PCN: [id number], Group: [id number], ID# [id number], Process claim through [employer], for questions: . THIS IS NOT INSURANCE.] sulfamethoxazole 800 mg-trimethoprim 160 mg tablet RxNorm: 638724 1 Tablet(s) PO BID 09/18/2014 10/07/2014 Inactive levothyroxine 175 mc g tablet RxNorm: 696023 1 Tablet(s) PO daily 09/17/2014 12/11/2014 Inactive levothyroxine 175 mc g tablet RxNorm: 817521 1 Tablet(s) PO daily 09/17/2014 09/16/2014 Inactive lorazepam 1 mg tablet RxNorm: 481337 Tablet(s) TAKE TWO TABLETS BY MOUTH AT B EDTIME, ALSO TAKE ONE TABLET BY MOUTH DAILY NEEDED 09/12/2014 10/11/2014 Inactive (Res ponse to an electronic controlled substance refill request - RxReferenceNumber: [id number]) lorazepam 1 mg tablet RxNorm: 243930 TAKE TWO TABLETS BY MOUTH AT BEDTIME, AL SO TAKE ONE TABLET BY MOUTH DAILY NEEDED 09/08/2014 09/11/2014 Inactive (Res ponse to an electronic controlled substance refill request - RxReferenceNumber: [id number]) meloxicam 7.5 mg tablet RxNorm: 594513 1 Tablet(s) PO daily 09/01/2014 09/17/2014 Inactive [SAVINGS FOR UNINSURED PATIENTS -- BIN:0 98376, PCN: ASPROD1, Group: [id number], ID# [id number], Process claim through [employer], for questions: . THIS IS NOT INSURANCE.] lisinopril 20 mg-hyd rochlorothiazide 25 mg tablet RxNorm: 435544 1 Tablet(s) PO daily 09/01/2014 12/29/2014 Inactive [SAVINGS FOR UNINSURED PATIENTS -- BIN:0 97489, PCN: ASPROD1, Group: [id number], ID# [id number], Process claim through [employer], for questions: . THIS IS NOT INSURANCE.] tramadol 50 mg tablet RxNorm: 066876 1 Tablet(s) PO Q4H as needed for pain 08/20/2014 11/07/2014 In active [SAVINGS FOR UNINSURED PATIENTS -- BIN:0 77602, PCN: ASPROD1, Group: [id number], ID# [id number], Process claim through [employer], for questions: . THIS IS NOT INSURANCE.] meloxicam 7.5 mg tablet RxNorm: 896093 1 Tablet(s) PO daily 08/14/2014 08/31/2014 Inactive [SAVINGS FOR UNINSURED PATIENTS -- BIN:0 20080, PCN: ASPROD1, Group: [id number], ID# [id number], Process claim through [employer], for questions: . THIS IS NOT INSURANCE.] lorazepam 1 mg tablet RxNorm: 979330 2 Tablet(s) PO QHS and 1 tab qd PRN 08/01/2014 09/08/2014 In active [SAVINGS FOR UNINSURED PATIENTS -- BIN:0 78995, PCN: ASPROD1, Group: [id number], ID# [id number], Process claim through [employer], for questions: . THIS IS NOT INSURANCE.] levothyroxine 200 mc g tablet RxNorm: 096830 1 Tablet(s) PO daily 07/31/2014 09/16/2014 Inactive [SAVINGS FOR UNINSURED PATIENTS -- BIN:0 47037, PCN: ASPROD1, Group: [id number], ID# [id number], Process claim through [employer], for questions: . THIS IS NOT INSURANCE.] lorazepam 1 mg tablet RxNorm: 449949 2 Tablet(s) PO QHS and 1 tab qd PRN No Start Date 07/31/2014 Inactive Phenergan VC-Codeine oral RxNorm: 379379 oral No S tart Date 11/26/2017 Inactive meloxicam 7.5 mg tablet RxNorm: 786444 1 Tablet(s) PO daily No Start Date 08/13/2014 Inactive lisinopril 20 mg-hyd rochlorothiazide 25 mg tablet RxNorm: 075188 1 Tablet(s) PO daily No Start Date 08/31/2014 Inactive levothyroxine 200 mc g tablet RxNorm: 208699 1 Tablet(s) PO daily No Start Date 07/30/2014 Inactive Diflucan 150 mg tablet RxNorm: 306498 1 Tablet(s) PO every other day No Start Date 10/22/2014 Inactive Zithromax Z-Linus 250 mg tablet RxNorm: 659575 1 Tablet(s) PO UD No Start Date 07/09/2015 Inactive tramadol 50 mg tablet RxNorm: 116255 1 Tablet(s) PO Q6 as needed No Start Date 08/19/2014 Inactive Medication Administered Medication Codes Instruc tions Start Date Status Kenalog 40 mg/mL suspension for injection RxNorm: 5107158 1Milliliter 06/14/2017 N o longer Active Kenalog 40 mg/mL suspension for injection RxNorm: 7764756 1Milliliter 03/27/2017 N o longer Active Kenalog 40 mg/mL suspension for injection RxNorm: 0690140 Milliliter 12/07/2016 No longer Active Kenalog 40 mg/mL suspension for injection RxNorm: 8103471 Milliliter 11/28/2016 No longer Active Immunizations Vaccine [...] Ord30 C/HDL 4.1 Ratio 10/24/2018 Comp Metabolic Xfu186 NA 141 mEq/L 10/24/2018 Comp Metabolic Ouh834 K 3.7 mEq/L 10/24/2018 Comp Metabolic Wgx559 CL 103 mEq/L 10/24/2018 Comp Metabolic Fww114 CO2 30.0 mEq/L 10/24/2018 Comp Metabolic Vne462 AN ION GAP 12 10/24/2018 Comp Metabolic Vgz422 GL UCOSE 98 mg/dL 10/24/2018 Comp Metabolic Qcp809 Cr eat 0.8 mg/dL 10/24/2018 Comp Metabolic Fdy700 eG FR 71 ml/min/1.73m2 10/24 Comp Metabolic Ygk654 BUN 12 mg/dL 10/24/2018 Comp Metabolic Nvl623 B/ C Ratio 14.5 Ratio 10/24/2018 Comp Metabolic Sgq003 CA LCIUM 9.2 mg/dL 10/24/2018 Comp Metabolic Eqj718 AL K PHOS 76 U/L 10/24/2018 Comp Metabolic Zsz986 T(SGOT) 12 U/L 10/24/2018 Comp Metabolic Ulu700 AL T(SGPT) 9 U/L 10/24/2018 Comp Metabolic Kce717 BI LI T 0.5 mg/dL 10/24/2018 Comp Metabolic Nwd983 AL BUMIN 4.3 g/dL 10/24/2018 Comp Metabolic Nbk336 TP RO 6.5 g/dL 10/24/2018 Comp Metabolic Sqk040 GL OB 2.2 g/dL 10/24/2018 Comp Metabolic Yjh160 A/ G Ratio 2.0 Ratio 10/24/2018 Comp Metabolic Fvw473 Os mo 281 mOsmo 10/24/2018 Free T4 Qmr258 FREE T4 0.76 ng/dL 10/24/2018 Cbc With [...] 30.5 pg 10/24/2018 Cbc With Differential Ord2 [place]% 8.4 % 10/24/2018 Cbc With Differential Ord2 [...] 1.71 K/ul 10/24/2018 Cbc With Differential Ord2 [place] ABS# 0.4 K/ul 10/24/2018 Cbc With Differential [...] 30.0 pg 04/04/2018 Cbc With Differential Ord2 [place]% 10.9 % 04/04/2018 Cbc With Differential Ord2 [...] 1.42 K/ul 04/04/2018 Cbc With Differential Ord2 [place] ABS# 0.6 K/ul 04/04/2018 Cbc With Differential Ord2 Eos ABS# 0.1 K/ul 04/04/2018 Cbc With Differential Ord2 Baso ABS# 0.0 K/ul 04/04/2018 Free T4 Sbu637 FREE T4 1.25 ng/dL 04/04/2018 Tsh Ord6 [...] 30.2 pg 11/28/2017 Cbc With Differential Ord2 [place]% 10.1 % 11/28/2017 Cbc With Differential Ord2 [...] 1.33 K/ul 11/28/2017 Cbc With Differential Ord2 [place] ABS# 0.5 K/ul 11/28/2017 Cbc With Differential Ord2 Eos ABS# 0.1 K/ul 11/28/2017 Cbc With Differential Ord2 Baso ABS# 0.0 K/ul 11/28/2017 Free T4 Evr738 FREE T4 1.43 ng/dL 11/28/2017 Lipid Ord30 CHOL 186 mg/dL 11/28/2017 Lipid Ord30 HDL 54.0 mg/dl 11/28/2017 Lipid Ord30 TRIG 59 mg/dL 11/28/2017 Lipid Ord30 LDL 120 mg/dL 11/28/2017 Lipid Ord30 C/HDL 3.4 Ratio 11/28/2017 Comp Metabolic Nyk588 NA 141 mEq/L 11/28/2017 Comp Metabolic Gub201 K 4.0 mEq/L 11/28/2017 Comp Metabolic Rjs601 CL 105 mEq/L 11/28/2017 Comp Metabolic Iwu782 CO2 29.0 mEq/L 11/28/2017 Comp Metabolic Bnm627 AN ION GAP 11 11/28/2017 Comp Metabolic Jbq407 GL UCOSE 91 mg/dL 11/28/2017 Comp Metabolic Rhd041 Cr eat 0.8 mg/dL 11/28/2017 Comp Metabolic Yno134 eG FR 74 ml/min/1.73m2 11/28 Comp Metabolic Oaq920 BUN 15 mg/dL 11/28/2017 Comp Metabolic Irv594 B/ C Ratio 18.8 Ratio 11/28/2017 Comp Metabolic Npp609 CA LCIUM 8.6 mg/dL 11/28/2017 Comp Metabolic Nul452 AL K PHOS 76 U/L 11/28/2017 Comp Metabolic Auf180 T(SGOT) 10 U/L 11/28/2017 Comp Metabolic Ksz967 AL T(SGPT) 8 U/L 11/28/2017 Comp Metabolic Tsp781 BI LI T 0.5 mg/dL 11/28/2017 Comp Metabolic Lzp353 AL BUMIN 4.0 g/dL 11/28/2017 Comp Metabolic Oqk987 TP RO 6.1 g/dL 11/28/2017 Comp Metabolic Hfd211 GL OB 2.1 g/dL 11/28/2017 Comp Metabolic Hhm409 A/ G Ratio 1.9 Ratio 11/28/2017 Comp Metabolic Mtm303 Os mo 282 mOsmo 11/28/2017 Tsh Ord6 TSH (3rd IS) 3.31 uIU/mL 11/28/2017 Tsh Ord6 hTSH II 1.45 uIU/mL 03/27/2017 Free T4 Tss531 FREE T4 1.23 ng/dL 03/27/2017 Comp Metabolic Arx328 NA 140 mEq/L 09/28/2016 Comp Metabolic Ktv196 K 3.9 mEq/L 09/28/2016 Comp Metabolic Sqi981 CL 104 mEq/L 09/28/2016 Comp Metabolic Ayp164 CO2 28.0 mEq/L 09/28/2016 Comp Metabolic Ehe861 AN ION GAP 12 09/28/2016 Comp Metabolic Bdd794 GL UCOSE 97 mg/dL 09/28/2016 Comp Metabolic Dml976 Cr eat 0.8 mg/dL 09/28/2016 Comp Metabolic Flr920 eG FR 79 ml/min/1.73m2 09/28 Comp Metabolic Dem386 BUN 13 mg/dL 09/28/2016 Comp Metabolic Gov840 B/ C Ratio 17.1 Ratio 09/28/2016 Comp Metabolic Pkd315 CA LCIUM 8.9 mg/dL 09/28/2016 Comp Metabolic Nlp765 AL K PHOS 100 U/L 09/28/2016 Comp Metabolic Xzg314 T(SGOT) 12 U/L 09/28/2016 Comp Metabolic Gkj127 AL T(SGPT) 9 U/L 09/28/2016 Comp Metabolic Zii233 BI LI T 0.4 mg/dL 09/28/2016 Comp Metabolic Fvz002 AL BUMIN 4.1 g/dL 09/28/2016 Comp Metabolic Zsv400 TP RO 6.6 g/dL 09/28/2016 Comp Metabolic Gva750 GL OB 2.5 g/dL 09/28/2016 Comp Metabolic Asz025 A/ G Ratio 1.6 Ratio 09/28/2016 Comp Metabolic Ylv905 Os mo 279 mOsmo 09/28/2016 Lipid Ord30 [...] 28.8 pg 09/28/2016 Cbc With Differential Ord2 [place]% 7.2 % 09/28/2016 Cbc With Differential Ord2 [...] 1.41 K/ul 09/28/2016 Cbc With Differential Ord2 [place] ABS# 0.5 K/ul 09/28/2016 Cbc With Differential Ord2 Eos ABS# 0.2 K/ul 09/28/2016 Cbc With Differential Ord2 Baso ABS# 0.0 K/ul 09/28/2016 Free T4 Mxg801 FREE T4 1.43 ng/dL 09/28/2016 Tsh Ord6 hTSH II 0.52 uIU/mL 09/28/2016 Tsh Ord6 hTSH II 0.47 uIU/mL 06/16/2016 Comp Metabolic Sjk339 NA 139 mEq/L 06/16/2016 Comp Metabolic Onr865 K 4.3 mEq/L 06/16/2016 Comp Metabolic Lea086 CL 105 mEq/L 06/16/2016 Comp Metabolic Swx087 CO2 30.0 mEq/L 06/16/2016 Comp Metabolic Xrs895 AN ION GAP 8 06/16/2016 Comp Metabolic Mov465 GL UCOSE 90 mg/dL 06/16/2016 Comp Metabolic Sgv366 Cr eat 0.7 mg/dL 06/16/2016 Comp Metabolic Bgx724 eG FR 91 ml/min/1.73m2 06/16 Comp Metabolic Thk134 BUN 15 mg/dL 06/16/2016 Comp Metabolic Cov497 B/ C Ratio 22.4 Ratio 06/16/2016 Comp Metabolic Vag576 CA LCIUM 8.8 mg/dL 06/16/2016 Comp Metabolic Fzt339 AL K PHOS 79 U/L 06/16/2016 Comp Metabolic Vqy214 T(SGOT) 13 U/L 06/16/2016 Comp Metabolic Zno468 AL T(SGPT) 11 U/L 06/16/2016 Comp Metabolic Bck893 BI LI T 0.5 mg/dL 06/16/2016 Comp Metabolic Uyu134 AL BUMIN 3.9 g/dL 06/16/2016 Comp Metabolic Ipu662 TP RO 6.1 g/dL 06/16/2016 Comp Metabolic Vun362 GL OB 2.2 g/dL 06/16/2016 Comp Metabolic Fqd600 A/ G Ratio 1.8 Ratio 06/16/2016 Comp Metabolic Xua484 Os mo 278 mOsmo 06/16/2016 Lipid Ord30 [...] 28.9 pg 06/16/2016 Cbc With Differential Ord2 [place]% 8.1 % 06/16/2016 Cbc With Differential Ord2 [...] 1.70 K/ul 06/16/2016 Cbc With Differential Ord2 [place] ABS# 0.4 K/ul 06/16/2016 Cbc With Differential Ord2 Eos ABS# 0.2 K/ul 06/16/2016 Cbc With Differential Ord2 Baso ABS# 0.0 K/ul 06/16/2016 Free T4 Wmq511 FREE T4 1.42 ng/dL 06/16/2016 Free T4 Feu061 FREE T4 1.34 ng/dL 03/04/2016 Tsh Ord6 hTSH II 0.56 uIU/mL 03/04/2016 Tsh Ord6 hTSH II 0.98 uIU/mL 01/27/2016 Free T4 Nec045 FREE T4 1.19 ng/dL 01/27/2016 Free T4 Fth412 FREE T4 1.69 ng/dL 11/23/2015 Tsh Ord6 hTSH II 0.08 uIU/mL 11/23/2015 Lipid Ord30 CHOL 185 mg/dL 08/21/2015 Lipid Ord30 HDL 50.0 mg/dl 08/21/2015 Lipid Ord30 TRIG 88 mg/dL 08/21/2015 Lipid Ord30 LDL 117 mg/dL 08/21/2015 Lipid Ord30 C/HDL 3.7 Ratio 08/21/2015 Comp Metabolic Ran846 NA 139 mEq/L 08/21/2015 Comp Metabolic Mxr350 K 4.3 mEq/L 08/21/2015 Comp Metabolic Ajn180 CL 102 mEq/L 08/21/2015 Comp Metabolic Zzb660 CO2 27.0 mEq/L 08/21/2015 Comp Metabolic Njg870 AN ION GAP 14 08/21/2015 Comp Metabolic Cnf847 GL UCOSE 89 mg/dL 08/21/2015 Comp Metabolic Iye849 Cr eat 0.7 mg/dL 08/21/2015 Comp Metabolic Jzp505 eG FR 85 ml/min/1.73m2 08/21 Comp Metabolic Sop290 BUN 14 mg/dL 08/21/2015 Comp Metabolic Ime625 B/ C Ratio 19.7 Ratio 08/21/2015 Comp Metabolic Vwc452 CA LCIUM 9.5 mg/dL 08/21/2015 Comp Metabolic Wcl344 AL K PHOS 123 U/L 08/21/2015 Comp Metabolic Zfo377 T(SGOT) 13 U/L 08/21/2015 Comp Metabolic Mvb388 AL T(SGPT) 10 U/L 08/21/2015 Comp Metabolic Ajz052 BI LI T 0.4 mg/dL 08/21/2015 Comp Metabolic Ywh580 AL BUMIN 4.1 g/dL 08/21/2015 Comp Metabolic Cby411 TP RO 6.8 g/dL 08/21/2015 Comp Metabolic Wkd871 GL OB 2.7 g/dL 08/21/2015 Comp Metabolic Bcv853 A/ G Ratio 1.5 Ratio 08/21/2015 Comp Metabolic Brk366 Os mo 277 mOsmo 08/21/2015 Free T4 Tjz605 FREE T4 1.78 ng/dL 08/21/2015 Tsh Ord6 [...] Ord2 RDW 13.9 % 08/21/2015 Quick Strep Zhh8989 Quic k Strep Negative 07/08/2015 Tsh Ord6 hTSH II 0.04 uIU/mL 05/20/2015 Free T4 Oin067 FREE T4 1.50 ng/dL 05/20/2015 Review of [...] No alteration of consciousness 12/11/2014 Psychiatric anxiety 0 10/2014 Constitutional No recent illness 09/18/2014 Constitutional [...] clear 06/14/2017 None Full Exam - General 1995 Ears/Nose/Throat [...] Procedure Codes Date DESTRUCT PREMALG LESION CPT-4: 36063 01/19/2018 URINALYSIS NONAUTO W /O SCOPE CPT-4: 91778 09/12/2017 TRIAMCINOLONE ACET I [place] NOS CPT-4: J3301 06/14/2017 THER/PROPH/DIAG INJ SC/IM CPT-4: 20969 06/14/2017 PRESCRIP TRANSMIT A ERX SY CPT-4: G8553 06/14/2017 TRIAMCINOLONE ACET I [place] NOS CPT-4: J3301 03/27/2017 THER/PROPH/DIAG INJ SC/IM CPT-4: 83046 12/07/2016 TRIAMCINOLONE ACET I [place] NOS CPT-4: J3301 12/07/2016 THER/PROPH/DIAG INJ SC/IM CPT-4: 40053 11/28/2016 TRIAMCINOLONE ACET I [place] NOS CPT-4: J3301 11/28/2016 Vital Signs Date Vital 11/21/2018 Blood Pressure 1: 120/64 Code: 8480-6 Heart Rate 1: 64 bpm 10/30/2018 Blood Pressure 1: 144/70 Code: 8480-6 BMI: 37.0 Code: 52173-7 Heart Rate 1: 76 bpm Height: 5'6" SpO2: 96% Weight: 229 lbs 06/28/2018 Blood Pressure 1: 110/66 Code: 8480-6 BMI: 37.1 Code: 31888-6 Heart Rate 1: 73 bpm Height: 5'6" SpO2: 98% Weight: 230 lbs 04/04/2018 Blood Pressure 1: 128/76 Code: 8480-6 BMI: 37.9 Code: 58123-4 Heart Rate 1: 86 bpm Height: 5'6" SpO2: 98% Weight: 235 lbs 01/19/2018 Blood Pressure 1: 122/68 Code: 8480-6 Heart Rate 1: 78 bpm Height: 5'6" SpO2: 97% Weight: 01/05/2018 Blood Pressure 1: 138/78 Code: 8480-6 BMI: 38.4 Code: 93803-7 Heart Rate 1: 73 bpm Height: 5'6" SpO2: 95% Weight: 238 lbs 11/29/2017 Blood Pressure 1: 138/80 Code: 8480-6 BMI: 38.7 Code: 68717-5 Heart Rate 1: 71 bpm Height: 5'6" SpO2: 97% Weight: 240 lbs 10/25/2017 Blood Pressure 1: 136/72 Code: 8480-6 BMI: 38.7 Code: 58134-3 Heart Rate 1: 92 bpm Height: 5'6" SpO2: 98% Weight: 240 lbs 09/12/2017 Blood Pressure 1: 132/68 Code: 8480-6 BMI: 39.7 Code: 07287-4 Heart Rate 1: 76 bpm Height: 5'6" SpO2: 98% Weight: 246 lbs 06/14/2017 Blood Pressure 1: 130/80 Code: 8480-6 BMI: 39.4 Code: 06339-5 Heart Rate 1: 73 bpm Height: 5'6" SpO2: 95% Temperature: 36.9 (C ) / 98.5 (F) Weight: 244 lbs 05/10/2017 Blood Pressure 1: 128/68 Code: 8480-6 BMI: 38.7 Code: 51121-0 Heart Rate 1: 69 bpm Height: 5'6" SpO2: 97% Weight: 240 lbs 04/19/2017 Blood Pressure 1: 138/74 Code: 8480-6 BMI: 38.7 Code: 50347-8 Heart Rate 1: 73 bpm Height: 5'6" SpO2: 96% Weight: 240 lbs 03/27/2017 Blood Pressure 1: 142/84 Code: 8480-6 BMI: 38.7 Code: 79159-6 Heart Rate 1: 69 bpm Height: 5'6" SpO2: 97% Weight: 240 lbs 01/26/2017 Blood Pressure 1: 136/68 Code: 8480-6 Heart Rate 1: 64 bpm Height: 5'6" SpO2: 96% Weight: 12/07/2016 Blood Pressure 1: 130/72 Code: 8480-6 BMI: 39.7 Code: 78387-9 Heart Rate 1: 73 bpm Height: 5'6" SpO2: 93% Temperature: 36.8 (C ) / 98.3 (F) Weight: 246 lbs 11/28/2016 Blood Pressure 1: 138/60 Code: 8480-6 BMI: 39.7 Code: 16655-8 Heart Rate 1: 81 bpm Height: 5'6" SpO2: 97% Weight: 246 lbs 11/15/2016 Blood Pressure 1: 134/78 Code: 8480-6 BMI: 39.7 Code: 79761-7 Heart Rate 1: 75 bpm Height: 5'6" SpO2: 93% Temperature: 36.8 (C ) / 98.2 (F) Weight: 246 lbs 10/17/2016 Blood Pressure 1: 120/64 Code: 8480-6 BMI: 38.4 Code: 84363-4 Heart Rate 1: 69 bpm Height: 5'6" SpO2: 98% Temperature: 37.2 (C ) / 98.9 (F) Weight: 238 lbs 09/28/2016 Blood Pressure 1: 158/76 Code: 8480-6 BMI: 39.4 Code: 12404-8 Heart Rate 1: 71 bpm Height: 5'6" SpO2: 97% Weight: 244 lbs 06/29/2016 Blood Pressure 1: 124/60 Code: 8480-6 BMI: 38.7 Code: 63861-3 Heart Rate 1: 71 bpm Height: 5'6" SpO2: 98% Weight: 240 lbs 06/01/2016 Blood Pressure 1: 120/62 Code: 8480-6 BMI: 38.6 Code: 55569-7 Heart Rate 1: 76 bpm Height: 5'6" SpO2: 98% Weight: 239 lbs 05/11/2016 Blood Pressure 1: 140/80 Code: 8480-6 BMI: 38.1 Code: 01963-0 Heart Rate 1: 88 bpm Height: 5'6" SpO2: 97% Weight: 236 lbs 04/05/2016 Blood Pressure 1: 142/80 Code: 8480-6 BMI: 38.4 Code: 89051-3 Heart Rate 1: 96 bpm Height: 5'6" SpO2: 98% Weight: 238 lbs 04/01/2016 Blood Pressure 1: 136/88 Code: 8480-6 BMI: 39.2 Code: 63546-7 Heart Rate 1: 86 bpm Height: 5'6" SpO2: 96% Weight: 243 lbs 01/26/2016 Blood Pressure 1: 124/76 Code: 8480-6 BMI: 39.2 Code: 00072-7 Heart Rate 1: 76 bpm Height: 5'6" SpO2: 97% Weight: 243 lbs 12/21/2015 Blood Pressure 1: 120/64 Code: 8480-6 BMI: 37.0 Code: 39648-0 Heart Rate 1: 98 bpm Height: 5'6" SpO2: 97% Weight: 229 lbs 10/12/2015 Blood Pressure 1: 150/64 Code: 8480-6 BMI: 37.4 Code: 10175-3 Heart Rate 1: 70 bpm Height: 5'6" SpO2: 94% Weight: 232 lbs 08/24/2015 Blood Pressure 1: 128/74 Code: 8480-6 BMI: 36.8 Code: 72120-8 Heart Rate 1: 88 bpm Height: 5'6" SpO2: 94% Temperature: 36.8 (C ) / 98.3 (F) Weight: 228 lbs 06/01/2015 Blood Pressure 1: 134/68 Code: 8480-6 BMI: 36.0 Code: 56808-1 Heart Rate 1: 70 bpm Height: 5'6" SpO2: 98% Weight: 223 lbs 05/21/2015 Blood Pressure 1: 126/72 Code: 8480-6 BMI: 35.2 Code: 27883-7 Heart Rate 1: 63 bpm Height: 5'6" SpO2: 95% Weight: 218 lbs 5 oz 03/26/2015 Blood Pressure 1: 140/62 Code: 8480-6 BMI: 35.3 Code: 31932-8 Heart Rate 1: 68 bpm Height: 5'6" Weight: 219 lbs 03/11/2015 Blood Pressure 1: 130/80 Code: 8480-6 BMI: 34.9 Code: 32481-7 Heart Rate 1: 76 bpm Height: 5'6" Temperature: 37.1 (C ) / 98.7 (F) Weight: 216 lbs 12/11/2014 Blood Pressure 1: 134/62 Code: 8480-6 BMI: 34.2 Code: 20645-1 Heart Rate 1: 72 bpm Height: 5'6" Weight: 212 lbs 09/18/2014 Blood Pressure 1: 148/80 Code: 8480-6 BMI: 34.7 Code: 16783-6 Heart Rate 1: 68 bpm Height: 5'6" Weight: 215 lbs 07/31/2014 Blood Pressure 1: 124/72 Code: 8480-6 BMI: 36.2 Code: 25123-0 Heart Rate 1: 68 bpm Height: 5'6" [...] Severity mi ld 09/28/2016 None hypothyroid [employer]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 09/28/2016 None hypothyroid Onset and Resolution [...] Severity mi ld 06/01/2016 None hypothyroid [employer]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 06/01/2016 None hypothyroid Onset and Resolution [...] and Resolution resolved 04/05/2016 None hypothyroid [employer]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 04/05/2016 None hypothyroid Onset and Resolution [...] a ssociated factors 10/12/2015 None hypothyroid [employer]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 08/24/2015 None hypothyroid Onset and Resolution [...] Severity mod erate 06/01/2015 None hypothyroid [employer]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 05/21/2015 None hypothyroid Onset of Symptom [...] Findings brittle nails 03/11/2015 None hypothyroid [employer]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 P ATIENT, LEVEL IV Diagnosis: Essential (primary) hypertension[ICD10: I10] Diagnosis: Hypothyroidism, unspecified[ICD10: E03.9] Diagnosis: Low back pain[ICD10: M54.5] Lynn Finn MD, [facility] CPT- 4: 04440 10/30/2018 ([id number]) 27355 EST. [facility] Diagnosis: Acute recurrent maxillary sinusitis[ICD10: J01.01] Diagnosis: Other mucopurulent conjunctivitis, left eye[ICD10: H10.022] Diagnosis: Other allergic rhinitis[ICD10: J30.89] Lynn Finn MD, [facility] CPT-4: 07556 06/28/2018 [id number] EST. PATIENT, LEVEL IV Diagnosis: Essential (primary) hypertension[ICD10: I10] Diagnosis: Other specified hypothyroidism[ICD10: E03.8] Diagnosis: Other specified anemias[ICD10: D64.89] Diagnosis: Localized edema[ICD10: R60.0] Mishel Finn MD, [facility] CPT-4: 95128 04/04/2018 ([id number]) 59188 EST. [facility] Diagnosis: Mild persistent asthma, uncomplicated[ICD10: J45.30] Diagnosis: Actinic keratosis[ICD10: L57.0] Lynn Finn MD, [facility] CPT- 4: 34503 01/05/2018 ([id number]) Miscellaneou s no charge Diagnosis: Essential (primary) hypertension[ICD10: I10] Damari Finn MD, [facility] CPT-4: 22200 12/12/2017 13002 EST. PATIENT, LEVEL III Diagnosis: Essential (primary) hypertension[ICD10: I10] Diagnosis: Atrophy of thyroid (acquired)[ICD10: E03.4] Diagnosis: Low back pain[ICD10: M54.5] Mishel Finn MD, [facility] CPT-4: 86613 11/29/2017 [id number] EST. PATIENT, LEVEL III Diagnosis: Pain in left hip[ICD10: M25.552] Mishel Finn MD, [facility] CPT-4: 13638 10/25/2017 44539 EST. PATIENT, LEVEL IV Diagnosis: Localized edema[ICD10: R60.0] Mishel Finn MD, [facility] CPT-4: 03137 09/12/2017 51095 EST. PATIENT, LEVEL IV Diagnosis: Mild persistent asthma with (acute) exacerbation[ICD10: J45.31] Mishel Finn MD [facility] CPT-4: 47522 06/14/2017 87915 EST. PATIENT, LEVEL III Diagnosis: Localized edema[ICD10: R60.0] Diagnosis: Mild persistent asthma, uncomplicated[ICD10: J45.30] Mishel Finn MD [facility] CPT-4: 33790 05/10/2017 70972 EST. PATIENT, LEVEL III Diagnosis: Mild persistent asthma with (acute) exacerbation[ICD10: J45.31] Mishel Finn MD, [facility] CPT-4: 00169 04/19/2017 ([id number]) 85832 EST. P ATIENT, LEVEL IV Diagnosis: Contusion of left wrist, initial encounter[ICD10: S60.212A] Diagnosis: Hypothyroidism, unspecified[ICD10: E03.9] Diagnosis: Mild persistent asthma with (acute) exacerbation[ICD10: J45.31] Diagnosis: Low back pain[ICD10: M54.5] Lynn Finn MD, [facility] CPT- 4: 18480 03/27/2017 ([id number]) 83040 EST. P ATIENT, LEVEL IV Diagnosis: Essential (primary) hypertension[ICD10: I10] Diagnosis: Atrophy of thyroid (acquired)[ICD10: E03.4] Diagnosis: Low back pain[ICD10: M54.5] Damari Finn MD, [facility] CPT-4: 84226 01/26/2017 26001 EST. PATIENT, LEVEL III Diagnosis: Other allergic rhinitis[ICD10: J30.89] Diagnosis: Mild persistent asthma with (acute) exacerbation[ICD10: J45.31] Mishel Finn MD, [facility] CPT-4: 46143 12/07/2016 36864 EST. PATIENT, LEVEL III Diagnosis: Mild persistent asthma with (acute) exacerbation[ICD10: J45.31] Mishel Finn MD, [facility] CPT-4: 12850 11/28/2016 75300 EST. PATIENT, LEVEL III Diagnosis: Mild persistent asthma with (acute) exacerbation[ICD10: J45.31] Diagnosis: Acute bronchitis due to other specified organisms[ICD10: J20.8] Mishel Finn MD, [facility] CPT-4: 42974 11/15/2016 29799 EST. PATIENT, LEVEL IV Diagnosis: Other acute sinusitis[ICD10: J01.80] Diagnosis: Other allergic rhinitis[ICD10: J30.89] Diagnosis: Mild persistent asthma with (acute) exacerbation[ICD10: J45.31] Mishel Finn MD, [facility] CPT-4: 33286 10/17/2016 ([id number]) 27604 EST. [facility]: Essential (primary) hypertension[ICD10: I10] Diagnosis: Low back pain[ICD10: M54.5] Damari Finn MD, [facility] CPT-4: 05447 09/28/2016 [id number] EST. PATIENT, LEVEL III Diagnosis: Tinea barbae and tinea capitis[ICD10: B35.0] Diagnosis: Other specified hypothyroidism[ICD10: E03.8] Mishel Finn MD, [facility] CPT-4: 17092 06/29/2016 ([id number]) 23438 EST. [facility]: Essential (primary) hypertension[ICD10: I10] Diagnosis: Atrophy of thyroid (acquired)[ICD10: E03.4] Diagnosis: Rash and other nonspecific skin eruption[ICD10: R21] Damari Finn MD, [facility] CPT-4: 94792 06/01/2016 ([id number]) 36163 EST. [facility] Diagnosis: Cellulitis of groin[ICD10: L03.314] Damari Finn MD, [facility] CPT- 4: 09623 05/11/2016 ([id number]) 14608 EST. [facility]: Hypothyroidism, unspecified[ICD10: E03.9] Diagnosis: Candidiasis of vulva and vagina[ICD10: B37.3] Diagnosis: Essential (primary) hypertension[ICD10: I10] Diagnosis: Low back pain[ICD10: M54.5] Lynn Finn MD, [facility] CPT- 4: 82755 04/05/2016 56178 EST. PATIENT, LEVEL III Diagnosis: Other acute sinusitis[ICD10: J01.80] Diagnosis: Rash and other nonspecific skin eruption[ICD10: R21] Mishel Finn MD, [facility] CPT-4: 66357 04/01/2016 ([id number]) 86105 EST. P ATIENT, LEVEL IV Diagnosis: Essential (primary) hypertension[ICD10: I10] Diagnosis: Hypothyroidism, unspecified[ICD10: E03.9] Diagnosis: Low back pain[ICD10: M54.5] Diagnosis: Other obesity due to excess calories[ICD10: E66.09] Lynn Finn MD, [facility] CPT-4: 96546 01/26/2016 38452 EST. PATIENT, LEVEL IV Diagnosis: Essential (primary) hypertension[ICD10: I10] Diagnosis: Cutaneous abscess of face[ICD10: L02.01] Mishel Finn MD, [facility] CPT-4: 61527 12/21/2015 ([id number]) 16206 EST. P ATIENT, LEVEL III Diagnosis: Cutaneous abscess of groin[ICD10: L02.214] Diagnosis: Hypothyroidism, unspecified[ICD10: E03.9] [facility] MD, [facility] [facility] CPT-[facility]: 20074 10/12/2015 ([id number]) 95583 EST. P ATIENT, LEVEL III Diagnosis: Essential (primary) hypertension[ICD10: I10] Diagnosis: Hypothyroidism, unspecified[ICD10: E03.9] Diagnosis: Allergic rhinitis, unspecified[ICD10: J30.9] Lynn Finn MD, [facility] CPT-4: 57001 08/24/2015 ([id number]) 89281 EST. P ATIENT, LEVEL III Diagnosis: Skin infection[ICD9: 686.9] Damari Finn MD, [facility] CPT-4: 91196 06/01/2015 ([id number]) 48620 EST. P ATIENT, LEVEL III Diagnosis: Hypothyroidism[ICD9: 244.9] Diagnosis: ESSENTIAL HYPERTENSION[ICD9: 401.9] Damari Finn MD, [facility] CPT- 4: 11434 05/21/2015 ([id number]) 91478 EST. P ATIENT, LEVEL III Diagnosis: Hypothyroidism[ICD9: 244.9] Diagnosis: Fingernail abnormalities[ICD9: 703.8] [facility] CPT-4: 86050 03/26/2015 ([id number]) 78926 EST. P ATIENT, LEVEL II Diagnosis: Hypothyroidism[ICD9: 244.9] [facility] CPT-4: 29904 03/11/2015 ([id number]) 80933 EST. P ATIENT, LEVEL IV Diagnosis: ESSENTIAL HYPERTENSION[ICD9: 401.9] Diagnosis: Low back pain[ICD9: 724.2] Diagnosis: Hypothyroidism[ICD9: 244.9] [facility] CPT-4: 67681 12/11/2014 ([id number]) 64601 EST. P ATIENT, LEVEL IV Diagnosis: Hidradenitis suppurativa[ICD9: 705.83] Diagnosis: ESSENTIAL HYPERTENSION[ICD9: 401.9] Diagnosis: Low back pain[ICD9: 724.2] Diagnosis: Lumbar spinal stenosis[ICD9: 724.02] Diagnosis: HYPOTHYROIDISM[ICD9: 244.9] Damari Finn MD, [facility] CPT-4: 23279 09/18/2014 Office outpatient ne w 30 minutes Diagnosis: ESSENTIAL HYPERTENSION[ICD9: 401.9] Diagnosis: Hypothyroidism[ICD9: 244.9] Diagnosis: Low back pain[ICD9: 724.2] Lynn Finn MD, [facility] CPT- 4: 47609 07/31/2014 Plan of Care Planned Activity Notes [...] as indicated 10/30/2018 Appointment: Lynn Arenas WPtel: [address] [place], [place] [phone] (30 min) [facility] 10/30/2018 Patient Education: Patient Medication Summary Completed 10/30/2018 Patient Education: Hypertension Completed 10/30/2018 Patient Education: Back Pain Completed 10/30/2018 Appointment: Lynn Arenas WPtel: [phone] [phone] (30 min) Complex 10/26/2018 Patient Education: Patient Medication Summary Completed 10/23/2018 Appointment: Lynn Arenas WPtel: [phone] [phone] [place] (15 min) Moderate 10/19/2018 Appointment: BarringtonDamari sen WPtel: [phone] [facility] (15 min) Moderate 09/19/2018 Visit Plan: Sinusitis [...] daily. 06/28/2018 Appointment: Lynn Arenas WPtel: [phone] [phone] [place] (30 min) Complex 06/28/2018 Patient [...] to monitor. 04/04/2018 Appointment: Mishel Balderrama WPtel: [address] [place], [place] [address] (15 min) Moderate 04/04/2018 Patient Education: Patient Medication Summary Completed 04/04/2018 Visit Plan: Wound Instructions - Pt was instructed to keep the wound clean, wash with antibacterial soap, use triple antibiotic ointment, call if redness, pustular drainage, or any other acute concerns. 01/19/2018 Appointment: Lynn Arenas WPtel: [phone] (30 min) Complex 01/19/2018 Patient Education: [...] concerns. 01/05/2018 Appointment: Lynn Arenas WPtel: [phone] [phone] (30 min) Complex 01/05/2018 Patient Education: [...] not improve. 11/29/2017 [phone] ([facility] 11/29/2017 Patient [...] improve. 10/25/2017 App[facility]ment: [phone] [place] (30 min) Complex 10/25/2017 [...] edema. 09/12/2017 App[facility]ment: [phone] [place] (30 min) Complex 09/12/2017 Patient Education: Patient Medication Summary Completed 09/12/2017 App[facility]ment: [phone] [place] (30 min) Complex 06/27/2017 [...] changes. 06/14/2017 Appointment: [facility] Bal[phone] [facility] [place] (15 min) Moderate 06/14/2017 Patient Education: [...] changes 05/10/2017 Appointment: [facility] Balderrama [phone] [place] (15 min) Moderate 05/10/2017 Patient Education: [...] acute changes. 04/19/2017 Appointment: Mis[facility] Balderrama [phone] [place] (15 min) Moderate 04/19/2017 [...] on previous levels of control. Low back vuym-cpfzgvm-ozectp tramadol for prn use 03/27/2017 Appointment: Lynn Arenas WPtel: [phone] [phone] (30 min) Complex 03/27/2017 Patient Education: [...] improve. 01/26/2017 Appointment: Dam[facility] Finn [phone] (15 min) Moderate 01/26/2017 Patient Education: Patient [...] or concerns. 12/07/2016 Appointment: Mishel Balderrama WPtel: [address] [place], [place] [address] (15 min) Moderate 12/07/2016 Patient Education: Patient [...] changes. 11/28/2016 Appointment: [phone] (15 min) Moderate 11/28/2016 Patient Education: Patient Medication Summary Completed 11/28/2016 Appointment: Mishel Balderrama WPtel: [phone] [phone] (15 min) Moderate 11/24/2016 Visit Plan: [...] changes. 11/15/2016 Appointment: Mishel Balderrama WPtel: [phone] [phone] (30 min) Complex 11/15/2016 Patient Education: [...] changes. 10/17/2016 Appointment: [phone] (30 min) Complex 10/17/2016 Patient Education: Patient [...] Damari Finn WPtel: [phone] [facility] (15 min) Moderate 09/28/2016 Patient [...] [phone] [place] (15 min) Moderate 06/29/2016 [...] for fluconazole 06/01/2016 Appointment: Damari Finn WPtel: [facility] (15 min) Moderate 06/01/2016 Patient Education: Patient Medication Summary Completed 06/01/2016 Patient Education: Obesity Completed 06/01/2016 Visit Plan: Cellulitis - continue w ith oral antibiotics as previously directed, return to clinic as previously directed, call for acute change in symptoms, worsening redness, warmth, discharge. 05/11/2016 Appointment: Dam[facility] Finn [facility]Ptel[phone] (15 min) Moderate 05/11/2016 Patient Education: Patient [...] concerns. 04/01/2016 Appointment: Lynn Arenas WPtel: [phone] [phone] (30 min) Complex 04/01/2016 Patient Education: Patient Medication Summary Completed 04/01/2016 Patient Education: Obesity Completed 04/01/2016 Appointment: Lynn Arenas WPtel: [phone] (30 min) Complex 03/29/2016 Visit Plan: [...] levels of control. Low back pain-refill tramadol Dzemp-mdbsfalbii-oriaqwmt resolved 01/26/2016 Appointment: Lynn Arenas WPtel: [phone] (30 min) Complex 01/26/2016 Patient Education: Patient Medication Summary Completed 01/26/2016 Patient Education: Obesity Completed 01/26/2016 Care Plan: BMI Above normal followup RADHA F-MGMT EDUC & TRAIN 1 PT Pending 01/26/2016 Care Plan: Referral Order SNOMED-CT : [id number] Pending 01/07/2016 Appointment: Lynn Arenas WPtel: [phone] (15 min) Moderate 12/24/2015 Visit Plan: [...] in the nasal steroid allergy spray. Coricidin [facility] 08/24/2015 Appointment: (30 min) Complex 08/24/2015 Patient Education: Patient Medication Summary Completed 08/24/2015 Patient Education: Hypertension Completed 08/24/2015 Appointment: (10 min) Simple 07/08/2015 Visit Plan: Skin infection - recomm ended treatment with oral antibiotic and topical antibiotic. Pt to call if nor improving. 06/01/2015 Appointment: Damari Finn [facility]Ptel[phone] (15 min) Moderate 06/01/2015 Patient Education: Patient [...] refill tramadol 12/11/2014 Appointment: Damari Finn WPtel: [facility]5 [facility] [place] [address] follow up 12/11/2014 Patient Education: Patient Medication Summary Completed 12/11/2014 Patient Education: Hypertension Completed 12/11/2014 Appointment: Damari Finn WPtel: [address] [place] [phone] follow up 11/27/2014 Visit Plan: Hidradenitis Suppurativ [...] to get her back MRI done at [facility] in [place] as that is where her specialist will be once we get her an appt with one of the local Neurosurgeons. 09/18/2014 Appointment: Damari Finn WPtel: [facility] Follow up 09/18/2014 Patient Education: Patient Medication [...] as scheduled 07/31/2014 Appointment: Lynn Arenas WPtel: [phone] [place] New Patient 07/31/2014 Patient [...] GET LABS FROM [facility] . Asthma Exacerbation - Asthma is a storage solutions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 problem for this patient, however, the [...] on previous levels of control. Low back gsoj-wkgryhs-qsisik tramadol for prn use claritin or zyrtec [...] . Asthma Exacerbation - Asthma is a storage solutions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 problem for this patient, however, the [...] . Asthma Exacerbation - Asthma is a storage solutions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 problem for this patient, however, the [...] symptoms, worsening redness, warmth, discharge. Declined Procedure: (90165) FLU VAC NO PRSV 4 JUSTYNA 3 YRS+; Declined Reason: refused Physical therapy at [facility] . Hypertension - well controlled [...] levels of control. Low back pain-refill tramadol Plyxf-jyihyvpabh-xagtmegr resolved . Hypertension - wel l controlled [...] to get her back MRI done at [facility] in [place] as that is where her specialist will [...]
--- OUTSIDE RECORDS SUMMARY | 2020-02-20 19:21 | XMS REPORT | CCD ---
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 Unknown Has never used illegal drugs 014 Allergies, Adverse Reactions, Alerts Substance Reaction Codes Entered Date Inactivated Date Status * NO KNOWN FOOD BEVERLY RGIES Unknown 07/31/2014 No Inactive Date Active bactrim hives, rash RxNorm: 229354 04/05/2016 No Inactive Date Active Past Medical [...] Date Stop Date Sta tus Fill Instructions ciprofloxacin 0.3 % eye drops RxNorm: 892470 INSTILL TWO DROPS TO THE AFFECTED EYE(S) THREE TIMES A DAY 11/23/2018 12/25/2018 Active levothyroxine 137 mc g tablet RxNorm: 063247 1 Tablet(s) PO daily TAKE ONE TABLET BY MOUTH DAILY ON AN EMPTY STOMACH 10/30/2018 01/22/2020 Active ProAir HFA 90 mcg/ac tuation aerosol inhaler RxNorm: 0381569 1-2 Puff(s) INH Q4 P RN INHALE 1 TO 2 PUFFS FOUR TIMES A DAY NEEDED FOR ASTHMA 10/30/2018 01/27/2019 Active tramadol 50 mg tablet RxNorm: 961852 1 Tablet(s) PO Q4 PRN as needed for pain 10/29/2018 12/07/2018 Ac tive lorazepam 1 mg tablet RxNorm: 051630 Tablet(s) TAKE TWO TABLETS BY MOUTH AT B EDTIME NEEDED FOR INSOMNIA AND ONE TABLET DAILY NEEDED ANXIETY 09/06/2018 11/04/2018 Inactive levothyroxine 125 mc g tablet RxNorm: 568568 1 Tablet(s) PO daily TAKE ONE TABLET BY MOUTH DAILY ON AN EMPTY STOMACH 09/06/2018 10/29/2018 Inactive tramadol 50 mg tablet RxNorm: 560179 1 Tablet(s) PO Q4 PRN as needed for pain 09/06/2018 10/15/2018 In active tramadol 50 mg tablet RxNorm: 531773 1 Tablet(s) PO Q4 PRN as needed for pain 07/06/2018 08/14/2018 In active ciprofloxacin 0.3 % eye drops RxNorm: 875528 2 Drop(s) ophthalmic (eye) TID 06/28/2018 07/07/2018 In active lorazepam 1 mg tablet RxNorm: 114367 Tablet(s) TAKE TWO TABLETS BY MOUTH AT B EDTIME NEEDED FOR INSOMNIA AND ONE TABLET DAILY NEEDED ANXIETY 06/28/2018 08/26/2018 Inactive doxycycline hyclate 100 mg tablet RxNorm: 9707922 1 Tablet(s) PO BID 06/28/2018 07/04/2018 Inactive tramadol 50 mg tablet RxNorm: 682943 1 Tablet(s) PO Q4 PRN as needed for pain 06/13/2018 07/05/2018 In active lorazepam 1 mg tablet RxNorm: 418814 Tablet(s) TAKE TWO TABLETS BY MOUTH AT B EDTIME NEEDED FOR INSOMNIA AND ONE TABLET DAILY NEEDED ANXIETY 05/23/2018 06/27/2018 Inactive tramadol 50 mg tablet RxNorm: 629760 1 Tablet(s) PO Q4 PRN as needed for pain 05/23/2018 06/12/2018 In active levothyroxine 125 mc g tablet RxNorm: 484938 Tablet(s) TAKE ONE TA BLET BY MOUTH DAILY ON AN EMPTY STOMACH 05/23/2018 09/05/2018 Inactive tramadol 50 mg tablet RxNorm: 178914 1 Tablet(s) PO Q4 PRN as needed for pain 05/17/2018 05/22/2018 In active levothyroxine 125 mc g tablet RxNorm: 653242 TAKE ONE TABLET BY [facility] DAILY 05/15/2018 06/27/2018 In active levothyroxine 125 mc g tablet RxNorm: 987366 TAKE ONE TABLET BY [facility] DAILY 05/15/2018 06/27/2018 In active tramadol 50 mg tablet RxNorm: 057256 1 Tablet(s) PO Q4 PRN as needed for pain 04/30/2018 05/16/2018 In active Advair Diskus 100 mc g-50 mcg/dose powder for inhalation RxNorm: 4299795 1 Puff(s) INH BID 04/06/2018 No Stop Date Active Symbicort 80 mcg-4.5 mcg/actuation HFA aerosol inhaler RxNorm: 5395839 2 Puff(s) INH BID 04/06/2018 No Stop Date Active Advair Diskus 250 mc g-50 mcg/dose powder for inhalation RxNorm: 0073535 1 Puff(s) INH BID 04/05/2018 09/01/2018 Inactive Zyrtec 10 mg tablet RxNorm: 2076966 1 Tablet(s) PO daily x1 week then PRN 04/05/2018 08/02/2018 In active lisinopril 20 mg-hyd rochlorothiazide 25 mg tablet RxNorm: 641182 Tablet(s) TAKE ONE TABLET BY MOUTH DAILY 04/05/2018 10/29/2018 Inactive Zyrtec 10 mg tablet RxNorm: 5909560 1 Tablet(s) PO daily 04/04/2018 05/03/2018 Inactive tramadol 50 mg tablet RxNorm: 191105 1 Tablet(s) PO Q4 PRN as needed for pain 03/13/2018 04/21/2018 In active lorazepam 1 mg tablet RxNorm: 241357 Tablet(s) TAKE TWO TABLETS BY MOUTH AT B EDTIME NEEDED FOR INSOMNIA AND ONE TABLET DAILY NEEDED ANXIETY 03/02/2018 04/30/2018 Inactive levothyroxine 125 mc g tablet RxNorm: 746546 1 Tablet(s) PO daily 02/06/2018 05/06/2018 Inactive levothyroxine 125 mc g tablet RxNorm: 921217 TAKE ONE TABLET BY [facility] DAILY ON AN EMPTY STOMACH 02/06/2018 05/22/2018 Inactive tramadol 50 mg tablet RxNorm: 830742 1 Tablet(s) PO Q4 PRN as needed for pain 01/26/2018 03/06/2018 In active lorazepam 1 mg tablet RxNorm: 189060 Tablet(s) TAKE TWO TABLETS BY MOUTH AT B EDTIME NEEDED FOR INSOMNIA AND ONE TABLET DAILY NEEDED ANXIETY 01/23/2018 06/27/2018 Inactive Symbicort 80 mcg-4.5 mcg/actuation HFA aerosol inhaler RxNorm: 4992869 INH 01/05/2018 06/27/2018 In active tramadol 50 mg tablet RxNorm: 455706 1 Tablet(s) PO Q4 PRN as needed for pain 01/04/2018 01/25/2018 In active Advair Diskus 250 mc g-50 mcg/dose powder for inhalation RxNorm: 1255389 1 Puff(s) INH BID 11/29/2017 03/28/2018 Inactive hydrochlorothiazide 12.5 mg tablet RxNorm: 849454 1 Tablet(s) PO daily 11/29/2017 12/28/2017 In active tramadol 50 mg tablet RxNorm: 816525 1 Tablet(s) PO Q4 PRN as needed for pain 11/23/2017 01/01/2018 In active tramadol 50 mg tablet RxNorm: 002965 1 Tablet(s) PO Q4 PRN as needed for pain 10/06/2017 11/14/2017 In active lorazepam 1 mg tablet RxNorm: 099650 Tablet(s) TAKE TWO TABLETS BY MOUTH AT B EDTIME NEEDED FOR INSOMNIA AND ONE TABLET DAILY NEEDED ANXIETY 09/12/2017 06/27/2018 Inactive tramadol 50 mg tablet RxNorm: 366197 1 Tablet(s) PO Q4 PRN as needed for pain 09/12/2017 10/05/2017 In active tramadol 50 mg tablet RxNorm: 650780 1 Tablet(s) PO Q4 PRN as needed for pain 08/15/2017 09/11/2017 In active tramadol 50 mg tablet RxNorm: 740752 1 Tablet(s) PO Q4 PRN as needed for pain 06/29/2017 08/07/2017 In active ProAir HFA 90 mcg/ac tuation aerosol inhaler RxNorm: 3049991 INHALE 1 TO 2 PUFFS FOUR TIMES A DAY NEEDED FOR ASTHMA 06/14/2017 11/10/2017 Inactive prednisone 20 mg tablet RxNorm: 961510 1 Tablet(s) PO BID x 2 days, then 1 pill daily x 3 days, then 1/2 pill every other day x 3 doses. 06/14/2017 09/11/2017 Inactive Kenalog 40 mg/mL madhavi pension for injection RxNorm: 7818248 1 Milliliter(s) Inj 06/14/2017 06/14/2017 In active Zyrtec 10 mg tablet RxNorm: 4328680 1 Tablet(s) PO daily 06/14/2017 07/13/2017 Inactive tramadol 50 mg tablet RxNorm: 608767 1 Tablet(s) PO Q4 PRN as needed for pain 06/08/2017 06/27/2017 In active [SAVINGS FOR UNINSURED PATIENTS -- BIN:0 64648, PCN: ASPROD1, Group: [id number], ID# [id number], Process claim through Assmb[employer], for questions: . THIS IS NOT INSURANCE.] tramadol 50 mg tablet RxNorm: 261064 1 Tablet(s) PO Q4 PRN as needed for pain 05/16/2017 06/04/2017 In active [SAVINGS FOR UNINSURED PATIENTS -- BIN:0 39309, PCN: ASPROD1, Group: [id number], ID# [id number], Process claim through Ass[employer], for questions: . THIS IS NOT INSURANCE.] lorazepam 1 mg tablet RxNorm: 346745 Tablet(s) TAKE TWO TABLETS BY MOUTH AT B EDTIME NEEDED FOR INSOMNIA AND ONE TABLET DAILY NEEDED ANXIETY 05/16/2017 08/13/2017 Inactive Lasix 20 mg tablet RxNorm: 650281 1 Tablet(s) PO daily 05/10/2017 05/09/2017 Inactive Lasix 20 mg tablet RxNorm: 418074 1 Tablet(s) PO daily 05/10/2017 05/12/2017 Inactive potassium chloride E R 10 mEq tablet,extended release RxNorm: 317951 1 Tablet(s) PO daily while on the lasix 05/10/2017 05/09/2017 Inactive potassium chloride E R 10 mEq tablet,extended release RxNorm: 005464 1 Tablet(s) PO daily while on the lasix 05/10/2017 05/12/2017 Inactive prednisone 20 mg tablet RxNorm: 872768 1 Tablet(s) PO BID x 2 days, then 1 pill daily x 3 days, then 1/2 pill every other day x 3 doses. 04/19/2017 06/13/2017 Inactive Zithromax Z-Linus 250 mg tablet RxNorm: 193982 1 Tablet(s) PO UD 04/13/2017 06/28/2017 Inactive prednisone 20 mg tablet RxNorm: 328873 1 Tablet(s) PO BID 04/13/2017 04/17/2017 Inactive levothyroxine 125 mc g tablet RxNorm: 022562 1 Tablet(s) PO daily 04/11/2017 10/07/2017 Inactive tramadol 50 mg tablet RxNorm: 310061 1 Tablet(s) PO Q4 PRN as needed for pain 03/27/2017 04/15/2017 In active [SAVINGS FOR UNINSURED PATIENTS -- BIN:0 44763, PCN: ASPROD1, Group: [id number], ID# [id number], Process claim through MedImp[employer], for questions: . THIS IS NOT INSURANCE.] Kenalog 40 mg/mL madhavi pension for injection RxNorm: 4127082 1 Milliliter(s) Inj 03/27/2017 03/27/2017 In active tramadol 50 mg tablet RxNorm: 491273 1 Tablet(s) PO Q4H as needed for pain 03/09/2017 03/26/2017 In active [SAVINGS FOR UNINSURED PATIENTS -- BIN:0 25008, PCN: ASPROD1, Group: [id number], ID# [id number], Process claim through [employer]Imp[employer], for questions: . THIS IS NOT INSURANCE.] lisinopril 20 mg-hyd rochlorothiazide 25 mg tablet RxNorm: 519354 TAKE ONE TABLET BY MOUTH DAILY 01/29/2017 11/21/2017 Inactive lorazepam 1 mg tablet RxNorm: 314635 Tablet(s) TAKE TWO TABLETS BY MOUTH AT B EDTIME NEEDED FOR INSOMNIA AND ONE TABLET DAILY NEEDED ANXIETY 01/05/2017 04/04/2017 Inactive tramadol 50 mg tablet RxNorm: 270638 1 Tablet(s) PO Q4H as needed for pain 12/07/2016 01/13/2017 In active [SAVINGS FOR UNINSURED PATIENTS -- BIN:0 52342, PCN: ASPROD1, Group: [id number], ID# [id number], Process claim through [employer]Imp[employer], for questions: . THIS IS NOT INSURANCE.] Kenalog 40 mg/mL madhavi pension for injection RxNorm: 0204610 Milliliter(s) Inj 12/07/2016 12/07/2016 In active nystatin 100,000 uni t/mL oral suspension RxNorm: 693766 4 Milliliter(s) PO QI D 12/07/2016 12/11/2016 In active Francia-D 12 Hour 60 mg-120 mg tablet,extended release RxNorm: 424387 1 Tablet(s) PO BID 12/07/2016 01/11/2017 Inactive lorazepam 1 mg tablet RxNorm: 806320 Tablet(s) TAKE TWO TABLETS BY MOUTH AT B EDTIME AND ONE TABLET DAILY NEEDED 12/07/2016 01/04/2017 Inactive (Response to an electronic controlled substance refill request - [id number]) albuterol sulfate 2. 5 mg/3 mL (0.083 %) solution for nebulization RxNorm: 627779 3 Milliliter(s) INH TID 11/29/2016 11/28/2016 Inactive prednisone 10 mg tablet RxNorm: 550298 Tablet(s) PO UD 11/29/2016 12/05/2016 Inactive 6,5,4,3,2,1 doxycycline hyclate 100 mg tablet RxNorm: 345688 1 Tablet(s) PO BID 11/29/2016 12/04/2016 Inactive albuterol sulfate 2. 5 mg/3 mL (0.083 %) solution for nebulization RxNorm: 124919 3 Milliliter(s) INH TID 11/29/2016 12/03/2016 Inactive Kenalog 40 mg/mL madhavi pension for injection RxNorm: 7251821 Milliliter(s) Inj 11/28/2016 11/28/2016 In active tramadol 50 mg tablet RxNorm: 883801 1 Tablet(s) PO Q4H as needed for pain 11/15/2016 12/06/2016 In active [SAVINGS FOR UNINSURED PATIENTS -- BIN:0 61803, PCN: ASPROD1, Group: [id number], ID# [id number], Process claim through [employer], for questions: . THIS IS NOT INSURANCE.] prednisone 20 mg tablet RxNorm: 585246 2 Tablet(s) PO daily 11/15/2016 11/19/2016 Inactive Advair Diskus 100 mc g-50 mcg/dose powder for inhalation RxNorm: 8409526 1 Puff(s) INH BID 11/15/2016 06/11/2017 Inactive ProAir HFA 90 mcg/ac tuation aerosol inhaler RxNorm: 156144 INHALE 1 TO 2 PUFFS F OUR TIMES A DAY NEEDED FOR ASTHMA 11/15/2016 04/13/2017 Inactive Zithromax Z-Linus 250 mg tablet RxNorm: 310069 1 Tablet(s) PO UD 11/15/2016 11/27/2016 Inactive Zyrtec 10 mg tablet RxNorm: 6425121 1 Tablet(s) PO daily 10/17/2016 11/15/2016 Inactive Keflex 500 mg capsule RxNorm: 677880 1 Capsule(s) PO TID 10/17/2016 10/23/2016 Inactive prednisone 10 mg tablet RxNorm: 891637 Tablet(s) PO UD 10/17/2016 11/28/2016 Inactive 6,5,4,3,2,1 tramadol 50 mg tablet RxNorm: 587944 1 Tablet(s) PO Q4H as needed for pain 09/28/2016 11/06/2016 In active [SAVINGS FOR UNINSURED PATIENTS -- BIN:0 91197, PCN: ASPROD1, Group: [id number], ID# [id number], Process claim through [employer], for questions: . THIS IS NOT INSURANCE.] ProAir HFA 90 mcg/ac tuation aerosol inhaler RxNorm: 525158 INHALE 1 TO 2 PUFFS F OUR TIMES A DAY NEEDED FOR ASTHMA 09/15/2016 11/14/2016 Inactive doxycycline hyclate 100 mg tablet RxNorm: 467495 1 Tablet(s) PO BID 09/15/2016 09/24/2016 Inactive doxycycline hyclate 100 mg tablet RxNorm: 648135 1 Tablet(s) PO BID 07/29/2016 08/07/2016 Inactive tramadol 50 mg tablet RxNorm: 143727 1 Tablet(s) PO Q4H as needed for pain 07/29/2016 09/06/2016 In active [SAVINGS FOR UNINSURED PATIENTS -- BIN:0 21604, PCN: ASPROD1, Group: [id number], ID# [id number], Process claim through Ass[employer], for questions: . THIS IS NOT INSURANCE.] lorazepam 1 mg tablet RxNorm: 257273 Tablet(s) TAKE TWO TABLETS BY MOUTH AT B EDTIME AND ONE TABLET DAILY NEEDED 07/29/2016 10/26/2016 Inactive (Response to an electronic controlled substance refill request - RxReferenceNumber: [id number]) levothyroxine 125 mc g tablet RxNorm: 776432 1 Tablet(s) PO daily 06/29/2016 06/29/2016 Inactive levothyroxine 137 mc g tablet RxNorm: 014521 1 Tablet(s) PO daily 06/29/2016 12/25/2016 Inactive ketoconazole 2 % sha mpoo RxNorm: 727378 1 Application TOP BID 06/29/2016 07/03/2016 Inactive tramadol 50 mg tablet RxNorm: 158988 1 Tablet(s) PO Q4H as needed for pain 06/16/2016 07/25/2016 In active [SAVINGS FOR UNINSURED PATIENTS -- BIN:0 97327, PCN: ASPROD1, Group: [id number], ID# [id number], Process claim through Assmb[employer], for questions: . THIS IS NOT INSURANCE.] Bactroban 2 % topica l ointment RxNorm: 208884 APPLY TO AFFECTED ARE A(S) TWO TIMES A DAY 06/16/2016 04/16/2017 Inactive fluconazole 150 mg t ablet RxNorm: 871520 1 Tablet(s) PO daily 06/01/2016 06/05/2016 Inactive gentamicin 0.1 % top ical ointment RxNorm: 147607 1 Application TOP QID 05/12/2016 05/25/2016 In active metronidazole 500 mg tablet RxNorm: 790558 1 Tablet(s) PO TID 05/11/2016 05/24/2016 Inactive gentamicin 0.1 % top ical ointment RxNorm: 186738 1 Application TOP QID 05/11/2016 05/11/2016 In active doxycycline hyclate 100 mg tablet RxNorm: 065631 1 Tablet(s) PO BID 05/11/2016 05/24/2016 Inactive lorazepam 1 mg tablet RxNorm: 708880 Tablet(s) TAKE TWO TABLETS BY MOUTH AT B EDTIME AND ONE TABLET DAILY NEEDED 05/02/2016 07/28/2016 Inactive (Response to an electronic controlled substance refill request - RxReferenceNumber: [id number]) Diflucan 150 mg tablet RxNorm: 717577 1 Tablet(s) PO daily x5 days then 1 x we ekly x 4 weeks. 05/02/2016 04/10/2017 Inactive Diflucan 150 mg tablet RxNorm: 712103 1 Tablet(s) PO every other day 04/19/2016 04/28/2016 In active Diflucan 150 mg tablet RxNorm: 040413 1 Tablet(s) PO every other day 04/19/2016 04/18/2016 In active Diflucan 150 mg tablet RxNorm: 130129 1 Tablet(s) PO daily 04/05/2016 04/11/2016 Inactive mupirocin 2 % topica l ointment RxNorm: 563685 1 Application TOP BID 04/05/2016 05/04/2016 Inactive tramadol 50 mg tablet RxNorm: 581160 1 Tablet(s) PO Q4H as needed for pain 04/05/2016 05/14/2016 In active [SAVINGS FOR UNINSURED PATIENTS -- BIN:0 48141, PCN: ASPROD1, Group: [id number], ID# [id number], Process claim through Assmb[employer], for questions: . THIS IS NOT INSURANCE.] prednisone 10 mg tablet RxNorm: 628424 Tablet(s) PO UD 04/01/2016 09/26/2016 Inactive 6,5,4,3,2,1 levothyroxine 137 mc g tablet RxNorm: 767344 1 Tablet(s) PO daily 03/21/2016 03/20/2016 Inactive levothyroxine 137 mc g tablet RxNorm: 250521 1 Tablet(s) PO daily 03/21/2016 06/28/2016 Inactive Advair Diskus 100 mc g-50 mcg/dose powder for inhalation RxNorm: 4425708 1 Puff(s) INH BID 01/26/2016 05/24/2016 Inactive tramadol 50 mg tablet RxNorm: 308687 1 Tablet(s) PO Q4H as needed for pain 01/26/2016 03/05/2016 In active [SAVINGS FOR UNINSURED PATIENTS -- BIN:0 60886, PCN: ASPROD1, Group: [id number], ID# [id number], Process claim through Assmbly, for questions: . THIS IS NOT INSURANCE.] Bactroban 2 % topica l ointment RxNorm: 860659 APPLY TO AFFECTED ARE A(S) TWO TIMES A DAY 12/22/2015 12/31/2015 Inactive Bactrim DS 800 mg-16 0 mg tablet RxNorm: 006621 TAKE ONE TABLET BY [facility] TWICE A DAY 12/22/2015 04/18/2016 In active Bactrim DS 800 mg-16 0 mg tablet RxNorm: 123294 1 Tablet(s) PO BID 12/21/2015 12/30/2015 Inactive lisinopril 20 mg-hyd rochlorothiazide 25 mg tablet RxNorm: 680285 1 Tablet(s) PO daily 12/21/2015 06/17/2016 Inactive [SAVINGS FOR UNINSURED PATIENTS -- BIN:0 95363, PCN: ASPROD1, Group: [id number], ID# [id number], Process claim through MedImpact, for questions: . THIS IS NOT INSURANCE.] tramadol 50 mg tablet RxNorm: 810207 1 Tablet(s) PO Q4H as needed for pain 12/03/2015 01/11/2016 In active [SAVINGS FOR UNINSURED PATIENTS -- BIN:0 42057, PCN: ASPROD1, Group: [id number], ID# [id number], Process claim through MedImpact, for questions: . THIS IS NOT INSURANCE.] lorazepam 1 mg tablet RxNorm: 439788 Tablet(s) TAKE TWO TABLETS BY MOUTH AT B EDTIME AND ONE TABLET DAILY NEEDED 11/26/2015 06/27/2018 Inactive (Response to an electronic controlled substance refill request - RxReferenceNumber: [id number]) Bactrim DS 800 mg-16 0 mg tablet RxNorm: 746960 1 Tablet(s) PO BID 11/25/2015 12/04/2015 Inactive levothyroxine 150 mc g tablet RxNorm: 999415 1 Tablet(s) PO daily 11/25/2015 03/20/2016 Inactive Bactroban 2 % topica l ointment RxNorm: 039622 1 Application TOP BID 10/12/2015 10/21/2015 Inactive Bactrim DS 800 mg-16 0 mg tablet RxNorm: 148999 1 Tablet(s) PO BID 09/07/2015 09/06/2015 Inactive Bactrim DS 800 mg-16 0 mg tablet RxNorm: 374286 1 Tablet(s) PO BID 09/07/2015 09/16/2015 Inactive lorazepam 1 mg tablet RxNorm: 071064 Tablet(s) TAKE TWO TABLETS BY MOUTH AT B EDTIME AND ONE TABLET DAILY NEEDED 08/28/2015 11/24/2015 Inactive (Response to an electronic controlled substance refill request - [facility] [id number]) levothyroxine 175 mc g tablet RxNorm: 609482 1 Tablet(s) PO daily 08/24/2015 11/24/2015 Inactive tramadol 50 mg tablet RxNorm: 133636 1 Tablet(s) PO Q4H as needed for pain 08/24/2015 09/11/2017 In active [SAVINGS FOR UNINSURED PATIENTS -- BIN:0 13579, PCN: ASPROD1, Group: [id number], ID# [id number], Process claim through Assmbly, for questions: . THIS IS NOT INSURANCE.] lisinopril 20 mg-hyd rochlorothiazide 25 mg tablet RxNorm: 518634 1 Tablet(s) PO daily TAKE 1 TABLET BY MOUTH DAILY 08/24/2015 06/27/2018 Inactive ProAir HFA 90 mcg/ac tuation aerosol inhaler RxNorm: 273595 1-2 Puff(s) INH PRN I NHALE ONE TO TWO PUFFS BY MOUTH FOUR TIMES A DAY NEEDED FOR ASTHMA 08/24/2015 12/01/2015 In active ProAir HFA 90 mcg/ac tuation aerosol inhaler RxNorm: 8917137 INHALE ONE TO TWO PU FFS BY MOUTH FOUR TIMES A DAY NEEDED FOR ASTHMA 08/17/2015 08/23/2015 Inactive Advair Diskus 250 mc g-50 mcg/dose powder for inhalation RxNorm: 1901654 1 Puff(s) INH BID 07/20/2015 07/19/2015 Inactive Advair Diskus 250 mc g-50 mcg/dose powder for inhalation RxNorm: 4419337 1 Puff(s) INH BID 07/20/2015 11/16/2015 Inactive tramadol 50 mg tablet RxNorm: 472427 1 Tablet(s) PO Q4H as needed for pain 07/10/2015 08/17/2015 In active [SAVINGS FOR UNINSURED PATIENTS -- BIN:0 26287, PCN: ASPROD1, Group: [id number], ID# [id number], Process claim through Assmbly, for questions: . THIS IS NOT INSURANCE.] Zithromax Z-Linus 250 mg tablet RxNorm: 047791 1 Tablet(s) PO UD 07/10/2015 01/18/2016 Inactive Keflex 500 mg capsule RxNorm: 652262 1 Capsule(s) PO TID 06/01/2015 06/07/2015 Inactive mupirocin 2 % topica l ointment RxNorm: 359134 1 Application TOP TID 06/01/2015 06/10/2015 Inactive lisinopril 20 mg-hyd rochlorothiazide 25 mg tablet RxNorm: 858632 TAKE 1 TABLET BY MOUT H DAILY 05/30/2015 08/23/2015 Inactive lisinopril 20 mg-hyd rochlorothiazide 25 mg tablet RxNorm: 372042 1 Tablet(s) PO daily 05/29/2015 11/24/2015 Inactive [SAVINGS FOR UNINSURED PATIENTS -- BIN:0 11380, PCN: ASPROD1, Group: [id number], ID# [id number], Process claim through MedImpRooster Teeth, for questions: . THIS IS NOT INSURANCE.] lorazepam 1 mg tablet RxNorm: 771251 Tablet(s) TAKE TWO TABLETS BY MOUTH AT B EDTIME AND ONE TABLET DAILY NEEDED 04/17/2015 07/13/2015 Inactive (Response to an electronic controlled substance refill request - RxReferenceNumber: [id number]) levothyroxine 200 mc g tablet RxNorm: 178023 1 Tablet(s) PO daily 03/12/2015 08/23/2015 Inactive [SAVINGS FOR UNINSURED PATIENTS -- BIN:0 49279, PCN: ASPROD1, Group: [id number], ID# [id number], Process claim through MedImpact, for questions: . THIS IS NOT INSURANCE.] lisinopril 20 mg-hyd rochlorothiazide 25 mg tablet RxNorm: 067513 1 Tablet(s) PO daily 03/11/2015 05/28/2015 Inactive [SAVINGS FOR UNINSURED PATIENTS -- BIN:0 00398, PCN: ASPROD1, Group: [id number], ID# [id number], Process claim through MedImpact, for questions: . THIS IS NOT INSURANCE.] levothyroxine 175 mc g tablet RxNorm: 338238 1 Tablet(s) PO daily 03/09/2015 03/11/2015 Inactive recheck blood in 3 months- THIS IS CORRE CT DOSAGE levothyroxine 175 mc g tablet RxNorm: 785225 1 Tablet(s) PO daily 03/09/2015 03/08/2015 Inactive recheck blood in 3 months levothyroxine 150 mc g tablet RxNorm: 843026 1 Tablet(s) PO daily 03/09/2015 03/08/2015 Inactive recheck blood in 3 months lorazepam 1 mg tablet RxNorm: 242244 TAKE TWO TABLETS BY MOUTH AT BEDTIME AND ONE TABLET DAILY NEEDED 12/25/2014 01/22/2015 Inactive (Response to an electronic controlled substance refill request - RxReferenceNumber: [id number]) lorazepam 1 mg tablet RxNorm: 654878 Tablet(s) TAKE TWO TABLETS BY MOUTH EVER Y NIGHT AT BEDTIME AND TAKE ONE TABLET BY MOUTH DAILY NEEDED 12/23/2014 12/25/2014 Inactive (Response to an electronic controlled north bstance refill request - RxReferenceNumber: [id number]) levothyroxine 150 mc g tablet RxNorm: 545446 1 Tablet(s) PO daily 12/12/2014 03/08/2015 Inactive recheck blood in 3 months Diflucan 150 mg tablet RxNorm: 563036 1 Tablet(s) PO every other day (start af ter finished with Cipro) 11/17/2014 08/23/2015 Inactive tramadol 50 mg tablet RxNorm: 463086 1 Tablet(s) PO Q4H as needed for pain 11/10/2014 12/17/2014 In active [SAVINGS FOR UNINSURED PATIENTS -- BIN:0 68248, PCN: ASPROD1, Group: [id number], ID# [id number], Process claim through [employer], for questions: . THIS IS NOT INSURANCE.] Cipro 500 mg tablet RxNorm: 226134 1 Tablet(s) PO BID 10/23/2014 10/29/2014 Inactive Flagyl 500 mg tablet RxNorm: 537098 1 Tablet(s) PO TID 10/23/2014 10/29/2014 Inactive Cipro 500 mg tablet RxNorm: 403102 1 Tablet(s) PO BID 10/23/2014 10/22/2014 Inactive Flagyl 500 mg tablet RxNorm: 445609 1 Tablet(s) PO TID 10/23/2014 10/22/2014 Inactive Diflucan 150 mg tablet RxNorm: 982873 1 Tablet(s) PO every other day (start af ter finished with Cipro) 10/23/2014 11/16/2014 Inactive lorazepam 1 mg tablet RxNorm: 169436 TAKE TWO TABLETS BY MOUTH EVERY NIGHT AT BEDTIME AND TAKE ONE TABLET BY MOUTH DAILY NEEDED 10/21/2014 10/21/2014 Inactive (Response to an electronic controlled north bstance refill request - RxReferenceNumber: [id number]) lorazepam 1 mg tablet RxNorm: 060346 TAKE TWO TABLETS BY MOUTH EVERY NIGHT AT BEDTIME AND TAKE ONE TABLET BY MOUTH DAILY NEEDED 10/21/2014 11/18/2014 Inactive (Response to an electronic controlled north bstance refill request - RxReferenceNumber: [id number]) lorazepam 1 mg tablet RxNorm: 392225 Tablet(s) TAKE TWO TABLETS BY MOUTH AT B EDTIME, ALSO TAKE ONE TABLET BY MOUTH DAILY NEEDED 10/13/2014 10/21/2014 Inactive (Res ponse to an electronic controlled substance refill request - RxReferenceNumber: [id number]) ProAir HFA 90 mcg/ac tuation aerosol inhaler RxNorm: 0218635 1-2 inhale INH QID a s needed ASTHMA 10/13/2014 12/26/2014 Inactive ProAir HFA 90 mcg/ac tuation aerosol inhaler RxNorm: 1668849 1-2 inhale INH QID a s needed ASTHMA 09/18/2014 10/12/2014 Inactive meloxicam 7.5 mg tablet RxNorm: 383722 1 Tablet(s) PO daily 09/18/2014 03/10/2015 Inactive [SAVINGS FOR UNINSURED PATIENTS -- BIN:[id number], PCN: [id number], Group: [id number], ID# [id number], Process claim through [employer], for questions: . THIS IS NOT INSURANCE.] sulfamethoxazole 800 mg-trimethoprim 160 mg tablet RxNorm: 732267 1 Tablet(s) PO BID 09/18/2014 10/07/2014 Inactive levothyroxine 175 mc g tablet RxNorm: 148201 1 Tablet(s) PO daily 09/17/2014 12/11/2014 Inactive levothyroxine 175 mc g tablet RxNorm: 706727 1 Tablet(s) PO daily 09/17/2014 09/16/2014 Inactive lorazepam 1 mg tablet RxNorm: 415213 Tablet(s) TAKE TWO TABLETS BY MOUTH AT B EDTIME, ALSO TAKE ONE TABLET BY MOUTH DAILY NEEDED 09/12/2014 10/11/2014 Inactive (Res ponse to an electronic controlled substance refill request - RxReferenceNumber: [id number]) lorazepam 1 mg tablet RxNorm: 516147 TAKE TWO TABLETS BY MOUTH AT BEDTIME, AL SO TAKE ONE TABLET BY MOUTH DAILY NEEDED 09/08/2014 09/11/2014 Inactive (Res ponse to an electronic controlled substance refill request - RxReferenceNumber: [id number]) meloxicam 7.5 mg tablet RxNorm: 895050 1 Tablet(s) PO daily 09/01/2014 09/17/2014 Inactive [SAVINGS FOR UNINSURED PATIENTS -- BIN:0 29851, PCN: ASPROD1, Group: [id number], ID# [id number], Process claim through [employer], for questions: . THIS IS NOT INSURANCE.] lisinopril 20 mg-hyd rochlorothiazide 25 mg tablet RxNorm: 649402 1 Tablet(s) PO daily 09/01/2014 12/29/2014 Inactive [SAVINGS FOR UNINSURED PATIENTS -- BIN:0 42899, PCN: ASPROD1, Group: AME08, ID# [id number], Process claim through [employer], for questions: . THIS IS NOT INSURANCE.] tramadol 50 mg tablet RxNorm: 380168 1 Tablet(s) PO Q4H as needed for pain 08/20/2014 11/07/2014 In active [SAVINGS FOR UNINSURED PATIENTS -- BIN:0 21233, PCN: ASPROD1, Group: AME08, ID# [id number], Process claim through [employer], for questions: . THIS IS NOT INSURANCE.] meloxicam 7.5 mg tablet RxNorm: 729835 1 Tablet(s) PO daily 08/14/2014 08/31/2014 Inactive [SAVINGS FOR UNINSURED PATIENTS -- BIN:0 20673, PCN: ASPROD1, Group: [id number], ID# [id number], Process claim through [employer], for questions: . THIS IS NOT INSURANCE.] lorazepam 1 mg tablet RxNorm: 347249 2 Tablet(s) PO QHS and 1 tab qd PRN 08/01/2014 09/08/2014 In active [SAVINGS FOR UNINSURED PATIENTS -- BIN:0 17847, PCN: ASPROD1, Group: [id number], ID# [id number], Process claim through [employer], for questions: . THIS IS NOT INSURANCE.] levothyroxine 200 mc g tablet RxNorm: 913351 1 Tablet(s) PO daily 07/31/2014 09/16/2014 Inactive [SAVINGS FOR UNINSURED PATIENTS -- BIN:0 14553, PCN: ASPROD1, Group: [id number], ID# [id number], Process claim through [employer], for questions: . THIS IS NOT INSURANCE.] lorazepam 1 mg tablet RxNorm: 287108 2 Tablet(s) PO QHS and 1 tab qd PRN No Start Date 07/31/2014 Inactive Phenergan VC-Codeine oral RxNorm: 239313 oral No S tart Date 11/26/2017 Inactive meloxicam 7.5 mg tablet RxNorm: 306989 1 Tablet(s) PO daily No Start Date 08/13/2014 Inactive lisinopril 20 mg-hyd rochlorothiazide 25 mg tablet RxNorm: 168327 1 Tablet(s) PO daily No Start Date 08/31/2014 Inactive levothyroxine 200 mc g tablet RxNorm: 618689 1 Tablet(s) PO daily No Start Date 07/30/2014 Inactive Diflucan 150 mg tablet RxNorm: 844959 1 Tablet(s) PO every other day No Start Date 10/22/2014 Inactive Zithromax Z-Linus 250 mg tablet RxNorm: 269506 1 Tablet(s) PO UD No Start Date 07/09/2015 Inactive tramadol 50 mg tablet RxNorm: 169870 1 Tablet(s) PO Q6 as needed No Start Date 08/19/2014 Inactive Medication Administered Medication Codes Instruc tions Start Date Status Kenalog 40 mg/mL suspension for injection RxNorm: 3698043 1Milliliter 06/14/2017 N o longer Active Kenalog 40 mg/mL suspension for injection RxNorm: 4083623 1Milliliter 03/27/2017 N o longer Active Kenalog 40 mg/mL suspension for injection RxNorm: 8615899 Milliliter 12/07/2016 No longer Active Kenalog 40 mg/mL suspension for injection RxNorm: 2466113 Milliliter 11/28/2016 No longer Active Immunizations Vaccine [...] Ord30 C/HDL 4.1 Ratio 10/24/2018 Comp Metabolic Uuf092 NA 141 mEq/L 10/24/2018 Comp Metabolic Trr990 K 3.7 mEq/L 10/24/2018 Comp Metabolic Zog639 CL 103 mEq/L 10/24/2018 Comp Metabolic Fed700 CO2 30.0 mEq/L 10/24/2018 Comp Metabolic Tac886 AN ION GAP 12 10/24/2018 Comp Metabolic Qwl116 GL UCOSE 98 mg/dL 10/24/2018 Comp Metabolic Pye162 Cr eat 0.8 mg/dL 10/24/2018 Comp Metabolic Idz245 eG FR 71 ml/min/1.73m2 10/24 Comp Metabolic Wkz083 BUN 12 mg/dL 10/24/2018 Comp Metabolic Qwp752 B/ C Ratio 14.5 Ratio 10/24/2018 Comp Metabolic Xgg106 CA LCIUM 9.2 mg/dL 10/24/2018 Comp Metabolic Ewr831 AL K PHOS 76 U/L 10/24/2018 Comp Metabolic Wrc859 T(SGOT) 12 U/L 10/24/2018 Comp Metabolic Zow796 AL T(SGPT) 9 U/L 10/24/2018 Comp Metabolic Sml003 BI LI T 0.5 mg/dL 10/24/2018 Comp Metabolic Zsw959 AL BUMIN 4.3 g/dL 10/24/2018 Comp Metabolic Fmd091 TP RO 6.5 g/dL 10/24/2018 Comp Metabolic Ykh266 GL OB 2.2 g/dL 10/24/2018 Comp Metabolic Itm738 A/ G Ratio 2.0 Ratio 10/24/2018 Comp Metabolic Xun040 Os mo 281 mOsmo 10/24/2018 Free T4 Dvp673 FREE T4 0.76 ng/dL 10/24/2018 Cbc With [...] 30.5 pg 10/24/2018 Cbc With Differential Ord2 [place]% 8.4 % 10/24/2018 Cbc With Differential Ord2 [...] 1.71 K/ul 10/24/2018 Cbc With Differential Ord2 [place] ABS# 0.4 K/ul 10/24/2018 Cbc With Differential [...] 30.0 pg 04/04/2018 Cbc With Differential Ord2 [place]% 10.9 % 04/04/2018 Cbc With Differential Ord2 [...] 1.42 K/ul 04/04/2018 Cbc With Differential Ord2 [place] ABS# 0.6 K/ul 04/04/2018 Cbc With Differential Ord2 Eos ABS# 0.1 K/ul 04/04/2018 Cbc With Differential Ord2 Baso ABS# 0.0 K/ul 04/04/2018 Free T4 Lgf194 FREE T4 1.25 ng/dL 04/04/2018 Tsh Ord6 [...] 30.2 pg 11/28/2017 Cbc With Differential Ord2 [place]% 10.1 % 11/28/2017 Cbc With Differential Ord2 [...] 1.33 K/ul 11/28/2017 Cbc With Differential Ord2 [place] ABS# 0.5 K/ul 11/28/2017 Cbc With Differential Ord2 Eos ABS# 0.1 K/ul 11/28/2017 Cbc With Differential Ord2 Baso ABS# 0.0 K/ul 11/28/2017 Free T4 Jki877 FREE T4 1.43 ng/dL 11/28/2017 Lipid Ord30 CHOL 186 mg/dL 11/28/2017 Lipid Ord30 HDL 54.0 mg/dl 11/28/2017 Lipid Ord30 TRIG 59 mg/dL 11/28/2017 Lipid Ord30 LDL 120 mg/dL 11/28/2017 Lipid Ord30 C/HDL 3.4 Ratio 11/28/2017 Comp Metabolic Xtd000 NA 141 mEq/L 11/28/2017 Comp Metabolic Zpt233 K 4.0 mEq/L 11/28/2017 Comp Metabolic Hav934 CL 105 mEq/L 11/28/2017 Comp Metabolic Vcu974 CO2 29.0 mEq/L 11/28/2017 Comp Metabolic Ppj140 AN ION GAP 11 11/28/2017 Comp Metabolic Uqe274 GL UCOSE 91 mg/dL 11/28/2017 Comp Metabolic Ztv773 Cr eat 0.8 mg/dL 11/28/2017 Comp Metabolic Bya226 eG FR 74 ml/min/1.73m2 11/28 Comp Metabolic Pxl799 BUN 15 mg/dL 11/28/2017 Comp Metabolic Jlu534 B/ C Ratio 18.8 Ratio 11/28/2017 Comp Metabolic Hnw553 CA LCIUM 8.6 mg/dL 11/28/2017 Comp Metabolic Jjw915 AL K PHOS 76 U/L 11/28/2017 Comp Metabolic Zdm718 T(SGOT) 10 U/L 11/28/2017 Comp Metabolic Ekh406 AL T(SGPT) 8 U/L 11/28/2017 Comp Metabolic Hli584 BI LI T 0.5 mg/dL 11/28/2017 Comp Metabolic Nyy059 AL BUMIN 4.0 g/dL 11/28/2017 Comp Metabolic Mmp852 TP RO 6.1 g/dL 11/28/2017 Comp Metabolic Fwq863 GL OB 2.1 g/dL 11/28/2017 Comp Metabolic Gsx692 A/ G Ratio 1.9 Ratio 11/28/2017 Comp Metabolic Non120 Os mo 282 mOsmo 11/28/2017 Tsh Ord6 TSH (3rd IS) 3.31 uIU/mL 11/28/2017 Tsh Ord6 hTSH II 1.45 uIU/mL 03/27/2017 Free T4 Kvz018 FREE T4 1.23 ng/dL 03/27/2017 Comp Metabolic Dex201 NA 140 mEq/L 09/28/2016 Comp Metabolic Vlc550 K 3.9 mEq/L 09/28/2016 Comp Metabolic Qge250 CL 104 mEq/L 09/28/2016 Comp Metabolic Jvb638 CO2 28.0 mEq/L 09/28/2016 Comp Metabolic Xia522 AN ION GAP 12 09/28/2016 Comp Metabolic Xqk059 GL UCOSE 97 mg/dL 09/28/2016 Comp Metabolic Qoj804 Cr eat 0.8 mg/dL 09/28/2016 Comp Metabolic Pkc098 eG FR 79 ml/min/1.73m2 09/28 Comp Metabolic Sur119 BUN 13 mg/dL 09/28/2016 Comp Metabolic Zwm063 B/ C Ratio 17.1 Ratio 09/28/2016 Comp Metabolic Jtr783 CA LCIUM 8.9 mg/dL 09/28/2016 Comp Metabolic Ttx197 AL K PHOS 100 U/L 09/28/2016 Comp Metabolic Iwv553 T(SGOT) 12 U/L 09/28/2016 Comp Metabolic Qtf052 AL T(SGPT) 9 U/L 09/28/2016 Comp Metabolic Tdg375 BI LI T 0.4 mg/dL 09/28/2016 Comp Metabolic Skb588 AL BUMIN 4.1 g/dL 09/28/2016 Comp Metabolic Ygz612 TP RO 6.6 g/dL 09/28/2016 Comp Metabolic Rea709 GL OB 2.5 g/dL 09/28/2016 Comp Metabolic Myi240 A/ G Ratio 1.6 Ratio 09/28/2016 Comp Metabolic Lmm064 Os mo 279 mOsmo 09/28/2016 Lipid Ord30 [...] 28.8 pg 09/28/2016 Cbc With Differential Ord2 [place]% 7.2 % 09/28/2016 Cbc With Differential Ord2 [...] 1.41 K/ul 09/28/2016 Cbc With Differential Ord2 [place] ABS# 0.5 K/ul 09/28/2016 Cbc With Differential Ord2 Eos ABS# 0.2 K/ul 09/28/2016 Cbc With Differential Ord2 Baso ABS# 0.0 K/ul 09/28/2016 Free T4 Ntz448 FREE T4 1.43 ng/dL 09/28/2016 Tsh Ord6 hTSH II 0.52 uIU/mL 09/28/2016 Tsh Ord6 hTSH II 0.47 uIU/mL 06/16/2016 Comp Metabolic Tjf872 NA 139 mEq/L 06/16/2016 Comp Metabolic Ker453 K 4.3 mEq/L 06/16/2016 Comp Metabolic Pny405 CL 105 mEq/L 06/16/2016 Comp Metabolic Aux630 CO2 30.0 mEq/L 06/16/2016 Comp Metabolic Ync698 AN ION GAP 8 06/16/2016 Comp Metabolic Juz335 GL UCOSE 90 mg/dL 06/16/2016 Comp Metabolic Kay458 Cr eat 0.7 mg/dL 06/16/2016 Comp Metabolic Isd979 eG FR 91 ml/min/1.73m2 06/16 Comp Metabolic Epb958 BUN 15 mg/dL 06/16/2016 Comp Metabolic Mao963 B/ C Ratio 22.4 Ratio 06/16/2016 Comp Metabolic Bwh249 CA LCIUM 8.8 mg/dL 06/16/2016 Comp Metabolic Koq007 AL K PHOS 79 U/L 06/16/2016 Comp Metabolic Zwh535 T(SGOT) 13 U/L 06/16/2016 Comp Metabolic Eor267 AL T(SGPT) 11 U/L 06/16/2016 Comp Metabolic Okm479 BI LI T 0.5 mg/dL 06/16/2016 Comp Metabolic Sjs625 AL BUMIN 3.9 g/dL 06/16/2016 Comp Metabolic Viu440 TP RO 6.1 g/dL 06/16/2016 Comp Metabolic Uuy077 GL OB 2.2 g/dL 06/16/2016 Comp Metabolic Dem432 A/ G Ratio 1.8 Ratio 06/16/2016 Comp Metabolic Luq568 Os mo 278 mOsmo 06/16/2016 Lipid Ord30 [...] 28.9 pg 06/16/2016 Cbc With Differential Ord2 [place]% 8.1 % 06/16/2016 Cbc With Differential Ord2 [...] 1.70 K/ul 06/16/2016 Cbc With Differential Ord2 [place] ABS# 0.4 K/ul 06/16/2016 Cbc With Differential Ord2 Eos ABS# 0.2 K/ul 06/16/2016 Cbc With Differential Ord2 Baso ABS# 0.0 K/ul 06/16/2016 Free T4 Rjy732 FREE T4 1.42 ng/dL 06/16/2016 Free T4 Uqd224 FREE T4 1.34 ng/dL 03/04/2016 Tsh Ord6 hTSH II 0.56 uIU/mL 03/04/2016 Tsh Ord6 hTSH II 0.98 uIU/mL 01/27/2016 Free T4 Tzi835 FREE T4 1.19 ng/dL 01/27/2016 Free T4 Uhh955 FREE T4 1.69 ng/dL 11/23/2015 Tsh Ord6 hTSH II 0.08 uIU/mL 11/23/2015 Lipid Ord30 CHOL 185 mg/dL 08/21/2015 Lipid Ord30 HDL 50.0 mg/dl 08/21/2015 Lipid Ord30 TRIG 88 mg/dL 08/21/2015 Lipid Ord30 LDL 117 mg/dL 08/21/2015 Lipid Ord30 C/HDL 3.7 Ratio 08/21/2015 Comp Metabolic Sqy625 NA 139 mEq/L 08/21/2015 Comp Metabolic Ccg423 K 4.3 mEq/L 08/21/2015 Comp Metabolic Pmt412 CL 102 mEq/L 08/21/2015 Comp Metabolic Maf326 CO2 27.0 mEq/L 08/21/2015 Comp Metabolic Hry232 AN ION GAP 14 08/21/2015 Comp Metabolic Fgb351 GL UCOSE 89 mg/dL 08/21/2015 Comp Metabolic Dnr571 Cr eat 0.7 mg/dL 08/21/2015 Comp Metabolic Fkp936 eG FR 85 ml/min/1.73m2 08/21 Comp Metabolic Aaf368 BUN 14 mg/dL 08/21/2015 Comp Metabolic Xsw897 B/ C Ratio 19.7 Ratio 08/21/2015 Comp Metabolic Ljh673 CA LCIUM 9.5 mg/dL 08/21/2015 Comp Metabolic Low564 AL K PHOS 123 U/L 08/21/2015 Comp Metabolic Rma123 T(SGOT) 13 U/L 08/21/2015 Comp Metabolic Xvp737 AL T(SGPT) 10 U/L 08/21/2015 Comp Metabolic Jsb808 BI LI T 0.4 mg/dL 08/21/2015 Comp Metabolic Uvq156 AL BUMIN 4.1 g/dL 08/21/2015 Comp Metabolic Grd602 TP RO 6.8 g/dL 08/21/2015 Comp Metabolic Oxt719 GL OB 2.7 g/dL 08/21/2015 Comp Metabolic Bmw134 A/ G Ratio 1.5 Ratio 08/21/2015 Comp Metabolic Uzc407 Os mo 277 mOsmo 08/21/2015 Free T4 Qzy724 FREE T4 1.78 ng/dL 08/21/2015 Tsh Ord6 [...] Ord2 RDW 13.9 % 08/21/2015 Quick Strep Dgl8009 Quic k Strep Negative 07/08/2015 Tsh Ord6 hTSH II 0.04 uIU/mL 05/20/2015 Free T4 Rxx606 FREE T4 1.50 ng/dL 05/20/2015 Review of [...] lesions 06/28/2018 None Full Exam - General 1995 Constitutional general appearance Overall: well developed 04/04/2018 [...] Procedure Codes Date DESTRUCT PREMALG LESION CPT-4: 40249 01/19/2018 URINALYSIS NONAUTO W /O SCOPE CPT-4: 09374 09/12/2017 TRIAMCINOLONE ACET I [place] NOS CPT-4: J3301 06/14/2017 THER/PROPH/DIAG INJ SC/IM CPT-4: 68624 06/14/2017 PRESCRIP TRANSMIT A ERX SY CPT-4: G8553 06/14/2017 TRIAMCINOLONE ACET I [place] NOS CPT-4: J3301 03/27/2017 THER/PROPH/DIAG INJ SC/IM CPT-4: 92480 12/07/2016 TRIAMCINOLONE ACET I [place] NOS CPT-4: J3301 12/07/2016 THER/PROPH/DIAG INJ SC/IM CPT-4: 29863 11/28/2016 TRIAMCINOLONE ACET I [place] NOS CPT-4: J3301 11/28/2016 Vital Signs Date Vital 11/21/2018 Blood Pressure 1: 120/64 Code: 8480-6 Heart Rate 1: 64 bpm 10/30/2018 Blood Pressure 1: 144/70 Code: 8480-6 BMI: 37.0 Code: 57047-3 Heart Rate 1: 76 bpm Height: 5'6" SpO2: 96% Weight: 229 lbs 06/28/2018 Blood Pressure 1: 110/66 Code: 8480-6 BMI: 37.1 Code: 07991-7 Heart Rate 1: 73 bpm Height: 5'6" SpO2: 98% Weight: 230 lbs 04/04/2018 Blood Pressure 1: 128/76 Code: 8480-6 BMI: 37.9 Code: 87793-5 Heart Rate 1: 86 bpm Height: 5'6" SpO2: 98% Weight: 235 lbs 01/19/2018 Blood Pressure 1: 122/68 Code: 8480-6 Heart Rate 1: 78 bpm Height: 5'6" SpO2: 97% Weight: 01/05/2018 Blood Pressure 1: 138/78 Code: 8480-6 BMI: 38.4 Code: 33951-0 Heart Rate 1: 73 bpm Height: 5'6" SpO2: 95% Weight: 238 lbs 11/29/2017 Blood Pressure 1: 138/80 Code: 8480-6 BMI: 38.7 Code: 59165-4 Heart Rate 1: 71 bpm Height: 5'6" SpO2: 97% Weight: 240 lbs 10/25/2017 Blood Pressure 1: 136/72 Code: 8480-6 BMI: 38.7 Code: 55041-4 Heart Rate 1: 92 bpm Height: 5'6" SpO2: 98% Weight: 240 lbs 09/12/2017 Blood Pressure 1: 132/68 Code: 8480-6 BMI: 39.7 Code: 19890-5 Heart Rate 1: 76 bpm Height: 5'6" SpO2: 98% Weight: 246 lbs 06/14/2017 Blood Pressure 1: 130/80 Code: 8480-6 BMI: 39.4 Code: 03297-1 Heart Rate 1: 73 bpm Height: 5'6" SpO2: 95% Temperature: 36.9 (C ) / 98.5 (F) Weight: 244 lbs 05/10/2017 Blood Pressure 1: 128/68 Code: 8480-6 BMI: 38.7 Code: 63102-0 Heart Rate 1: 69 bpm Height: 5'6" SpO2: 97% Weight: 240 lbs 04/19/2017 Blood Pressure 1: 138/74 Code: 8480-6 BMI: 38.7 Code: 69122-7 Heart Rate 1: 73 bpm Height: 5'6" SpO2: 96% Weight: 240 lbs 03/27/2017 Blood Pressure 1: 142/84 Code: 8480-6 BMI: 38.7 Code: 17427-7 Heart Rate 1: 69 bpm Height: 5'6" SpO2: 97% Weight: 240 lbs 01/26/2017 Blood Pressure 1: 136/68 Code: 8480-6 Heart Rate 1: 64 bpm Height: 5'6" SpO2: 96% Weight: 12/07/2016 Blood Pressure 1: 130/72 Code: 8480-6 BMI: 39.7 Code: 22693-2 Heart Rate 1: 73 bpm Height: 5'6" SpO2: 93% Temperature: 36.8 (C ) / 98.3 (F) Weight: 246 lbs 11/28/2016 Blood Pressure 1: 138/60 Code: 8480-6 BMI: 39.7 Code: 89639-1 Heart Rate 1: 81 bpm Height: 5'6" SpO2: 97% Weight: 246 lbs 11/15/2016 Blood Pressure 1: 134/78 Code: 8480-6 BMI: 39.7 Code: 55207-3 Heart Rate 1: 75 bpm Height: 5'6" SpO2: 93% Temperature: 36.8 (C ) / 98.2 (F) Weight: 246 lbs 10/17/2016 Blood Pressure 1: 120/64 Code: 8480-6 BMI: 38.4 Code: 21619-1 Heart Rate 1: 69 bpm Height: 5'6" SpO2: 98% Temperature: 37.2 (C ) / 98.9 (F) Weight: 238 lbs 09/28/2016 Blood Pressure 1: 158/76 Code: 8480-6 BMI: 39.4 Code: 04112-6 Heart Rate 1: 71 bpm Height: 5'6" SpO2: 97% Weight: 244 lbs 06/29/2016 Blood Pressure 1: 124/60 Code: 8480-6 BMI: 38.7 Code: 62689-7 Heart Rate 1: 71 bpm Height: 5'6" SpO2: 98% Weight: 240 lbs 06/01/2016 Blood Pressure 1: 120/62 Code: 8480-6 BMI: 38.6 Code: 57173-3 Heart Rate 1: 76 bpm Height: 5'6" SpO2: 98% Weight: 239 lbs 05/11/2016 Blood Pressure 1: 140/80 Code: 8480-6 BMI: 38.1 Code: 86408-5 Heart Rate 1: 88 bpm Height: 5'6" SpO2: 97% Weight: 236 lbs 04/05/2016 Blood Pressure 1: 142/80 Code: 8480-6 BMI: 38.4 Code: 47089-8 Heart Rate 1: 96 bpm Height: 5'6" SpO2: 98% Weight: 238 lbs 04/01/2016 Blood Pressure 1: 136/88 Code: 8480-6 BMI: 39.2 Code: 58001-1 Heart Rate 1: 86 bpm Height: 5'6" SpO2: 96% Weight: 243 lbs 01/26/2016 Blood Pressure 1: 124/76 Code: 8480-6 BMI: 39.2 Code: 90363-2 Heart Rate 1: 76 bpm Height: 5'6" SpO2: 97% Weight: 243 lbs 12/21/2015 Blood Pressure 1: 120/64 Code: 8480-6 BMI: 37.0 Code: 04711-5 Heart Rate 1: 98 bpm Height: 5'6" SpO2: 97% Weight: 229 lbs 10/12/2015 Blood Pressure 1: 150/64 Code: 8480-6 BMI: 37.4 Code: 13539-8 Heart Rate 1: 70 bpm Height: 5'6" SpO2: 94% Weight: 232 lbs 08/24/2015 Blood Pressure 1: 128/74 Code: 8480-6 BMI: 36.8 Code: 80944-3 Heart Rate 1: 88 bpm Height: 5'6" SpO2: 94% Temperature: 36.8 (C ) / 98.3 (F) Weight: 228 lbs 06/01/2015 Blood Pressure 1: 134/68 Code: 8480-6 BMI: 36.0 Code: 31396-4 Heart Rate 1: 70 bpm Height: 5'6" SpO2: 98% Weight: 223 lbs 05/21/2015 Blood Pressure 1: 126/72 Code: 8480-6 BMI: 35.2 Code: 65865-4 Heart Rate 1: 63 bpm Height: 5'6" SpO2: 95% Weight: 218 lbs 5 oz 03/26/2015 Blood Pressure 1: 140/62 Code: 8480-6 BMI: 35.3 Code: 34717-3 Heart Rate 1: 68 bpm Height: 5'6" Weight: 219 lbs 03/11/2015 Blood Pressure 1: 130/80 Code: 8480-6 BMI: 34.9 Code: 03557-7 Heart Rate 1: 76 bpm Height: 5'6" Temperature: 37.1 (C ) / 98.7 (F) Weight: 216 lbs 12/11/2014 Blood Pressure 1: 134/62 Code: 8480-6 BMI: 34.2 Code: 23070-5 Heart Rate 1: 72 bpm Height: 5'6" Weight: 212 lbs 09/18/2014 Blood Pressure 1: 148/80 Code: 8480-6 BMI: 34.7 Code: 32353-0 Heart Rate 1: 68 bpm Height: 5'6" Weight: 215 lbs 07/31/2014 Blood Pressure 1: 124/72 Code: 8480-6 BMI: 36.2 Code: 94221-0 Heart Rate 1: 68 bpm Height: 5'6" [...] Severity mi ld 09/28/2016 None 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 09/28/2016 None hypothyroid Onset and Resolution [...] Severity mi ld 06/01/2016 None 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 06/01/2016 None hypothyroid Onset and Resolution [...] and Resolution resolved 04/05/2016 None 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 04/05/2016 None hypothyroid Onset and Resolution [...] a ssociated factors 10/12/2015 None 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 P ATIENT, LEVEL IV Diagnosis: Essential (primary) hypertension[ICD10: I10] Diagnosis: Hypothyroidism, unspecified[ICD10: E03.9] Diagnosis: Low back pain[ICD10: M54.5] Lynn Finn MD, [facility] CPT- 4: 56048 10/30/2018 ([id number] EST. P ATIENT, LEVEL III Diagnosis: Acute recurrent maxillary sinusitis[ICD10: J01.01] Diagnosis: Other mucopurulent conjunctivitis, left eye[ICD10: H10.022] Diagnosis: Other allergic rhinitis[ICD10: J30.89] Lynn Finn MD, [facility] CPT-4: 31918 06/28/2018 [id number] EST. PATIENT, LEVEL IV Diagnosis: Essential (primary) hypertension[ICD10: I10] Diagnosis: Other specified hypothyroidism[ICD10: E03.8] Diagnosis: Other specified anemias[ICD10: D64.89] Diagnosis: Localized edema[ICD10: R60.0] Mishel Finn MD, [facility] CPT-4: 33752 04/04/2018 ([id number]) 36575 EST. P ATIENT, LEVEL III Diagnosis: Mild persistent asthma, uncomplicated[ICD10: J45.30] Diagnosis: Actinic keratosis[ICD10: L57.0] Lynn Finn MD, [facility] CPT- 4: 52999 01/05/2018 ([id number]) Miscellaneou s no charge Diagnosis: Essential (primary) hypertension[ICD10: I10] Damari Finn MD, [facility] CPT-4: 20350 12/12/2017 13938 EST. PATIENT, LEVEL III Diagnosis: Essential (primary) hypertension[ICD10: I10] Diagnosis: Atrophy of thyroid (acquired)[ICD10: E03.4] Diagnosis: Low back pain[ICD10: M54.5] Mishel Finn MD, [facility] CPT-4: 61614 11/29/2017 29969 EST. PATIENT, LEVEL III Diagnosis: Pain in left hip[ICD10: M25.552] Mishel Finn MD, [facility] CPT-4: 56696 10/25/2017 65765 EST. PATIENT, LEVEL IV Diagnosis: Localized edema[ICD10: R60.0] Mishel Finn MD, [facility] CPT-4: 77724 09/12/2017 42541 EST. PATIENT, LEVEL IV Diagnosis: Mild persistent asthma with (acute) exacerbation[ICD10: J45.31] Mishel Finn MD, [facility] CPT-4: 32264 06/14/2017 20982 EST. PATIENT, LEVEL III Diagnosis: Localized edema[ICD10: R60.0] Diagnosis: Mild persistent asthma, uncomplicated[ICD10: J45.30] Mishel Finn MD, [facility] CPT-4: 03811 05/10/2017 [id number] EST. PATIENT, LEVEL III Diagnosis: Mild persistent asthma with (acute) exacerbation[ICD10: J45.31] Mishel Finn MD, [facility] CPT-4: 34902 04/19/2017 ([id number]) 01912 EST. P [facility], LEVEL IV Diagnosis: Contusion of left wrist, initial encounter[ICD10: S60.212A] Diagnosis: Hypothyroidism, unspecified[ICD10: E03.9] Diagnosis: Mild persistent asthma with (acute) exacerbation[ICD10: J45.31] Diagnosis: Low back pain[ICD10: M54.5] Lynn Finn MD, [facility] CPT- 4: 16777 03/27/2017 ([id number]) 38723 EST. P [facility], LEVEL IV Diagnosis: Essential (primary) hypertension[ICD10: I10] Diagnosis: Atrophy of thyroid (acquired)[ICD10: E03.4] Diagnosis: Low back pain[ICD10: M54.5] Damari Finn MD, [facility] CPT-4: 05364 01/26/2017 73819 EST. PATIENT, LEVEL III Diagnosis: Other allergic rhinitis[ICD10: J30.89] Diagnosis: Mild persistent asthma with (acute) exacerbation[ICD10: J45.31] Mishel Finn MD, [facility] CPT-4: 30729 12/07/2016 05540 EST. PATIENT, LEVEL III Diagnosis: Mild persistent asthma with (acute) exacerbation[ICD10: J45.31] Mishel Finn MD, [facility] CPT-4: 12849 11/28/2016 03569 EST. PATIENT, LEVEL III Diagnosis: Mild persistent asthma with (acute) exacerbation[ICD10: J45.31] Diagnosis: Acute bronchitis due to other specified organisms[ICD10: J20.8] Mishel Finn MD, [facility] CPT-4: 18869 11/15/2016 30095 EST. PATIENT, LEVEL IV Diagnosis: Other acute sinusitis[ICD10: J01.80] Diagnosis: Other allergic rhinitis[ICD10: J30.89] Diagnosis: Mild persistent asthma with (acute) exacerbation[ICD10: J45.31] Mishel Finn MD, [facility] CPT-4: 67480 10/17/2016 ([id number]) 15157 EST. P ATIENT, LEVEL IV Diagnosis: Essential (primary) hypertension[ICD10: I10] Diagnosis: Low back pain[ICD10: M54.5] Damari Finn MD, [facility] CPT-4: 35892 09/28/2016 49697 EST. PATIENT, LEVEL III Diagnosis: Tinea barbae and tinea capitis[ICD10: B35.0] Diagnosis: Other specified hypothyroidism[ICD10: E03.8] Mishel Finn MD, [facility] CPT-4: 50874 06/29/2016 ([id number]) 19728 EST. P ATIENT, LEVEL IV Diagnosis: Essential (primary) hypertension[ICD10: I10] Diagnosis: Atrophy of thyroid (acquired)[ICD10: E03.4] Diagnosis: Rash and other nonspecific skin eruption[ICD10: R21] Damari Finn MD, [facility] CPT-4: 91823 06/01/2016 ([id number]) [id number] EST. P ATIENT, LEVEL III Diagnosis: Cellulitis of groin[ICD10: L03.314] Damari Finn MD, [facility] CPT- 4: 14180 05/11/2016 ([id number]) 45253 EST. P ATIENT, LEVEL IV Diagnosis: Hypothyroidism, unspecified[ICD10: E03.9] Diagnosis: Candidiasis of vulva and vagina[ICD10: B37.3] Diagnosis: Essential (primary) hypertension[ICD10: I10] Diagnosis: Low back pain[ICD10: M54.5] Lynn Finn MD, [facility] CPT- 4: 25199 04/05/2016 [id number] EST. PATIENT, LEVEL III Diagnosis: Other acute sinusitis[ICD10: J01.80] Diagnosis: Rash and other nonspecific skin eruption[ICD10: R21] Mishel Finn MD, [facility] CPT-4: 64916 04/01/2016 ([id number]) 66100 EST. P ATIENT, LEVEL IV Diagnosis: Essential (primary) hypertension[ICD10: I10] Diagnosis: Hypothyroidism, unspecified[ICD10: E03.9] Diagnosis: Low back pain[ICD10: M54.5] Diagnosis: Other obesity due to excess calories[ICD10: E66.09] Lynn Finn MD, [facility] CPT-4: 92511 01/26/2016 [id number] EST. PATIENT, LEVEL IV Diagnosis: Essential (primary) hypertension[ICD10: I10] Diagnosis: Cutaneous abscess of face[ICD10: L02.01] Mishel Finn MD, [facility] CPT-4: 42697 12/21/2015 ([id number]) 18770 EST. P ATIENT, LEVEL III Diagnosis: Cutaneous abscess of groin[ICD10: L02.214] Diagnosis: Hypothyroidism, unspecified[ICD10: E03.9] Lynn Finn MD, [facility] CPT-4: 83507 10/12/2015 ([id number]) 33566 EST. P ATIENT, LEVEL III Diagnosis: Essential (primary) hypertension[ICD10: I10] Diagnosis: Hypothyroidism, unspecified[ICD10: E03.9] Diagnosis: Allergic rhinitis, unspecified[ICD10: J30.9] Lynn Finn MD, [facility] CPT-4: 28329 08/24/2015 ([id number]) 09247 EST. P ATIENT, LEVEL III Diagnosis: Skin infection[ICD9: 686.9] Damari Finn MD, [facility] CPT-4: 56254 06/01/2015 ([id number]) 51298 EST. P ATIENT, LEVEL III Diagnosis: Hypothyroidism[ICD9: 244.9] Diagnosis: ESSENTIAL HYPERTENSION[ICD9: 401.9] Damari Finn MD, [facility] CPT- 4: 64808 05/21/2015 ([id number]) 59862 EST. P ATIENT, LEVEL III Diagnosis: Hypothyroidism[ICD9: 244.9] Diagnosis: Fingernail abnormalities[ICD9: 703.8] Lynn Finn MD, [facility] CPT-4: 32980 03/26/2015 ([id number]) 38389 EST. P ATIENT, LEVEL II Diagnosis: Hypothyroidism[ICD9: 244.9] Maritza Finn MD, [facility] CPT-4: 29519 03/11/2015 ([id number]) 91347 EST. P ATIENT, LEVEL IV Diagnosis: ESSENTIAL HYPERTENSION[ICD9: 401.9] Diagnosis: Low back pain[ICD9: 724.2] Diagnosis: Hypothyroidism[ICD9: 244.9] [facility] CPT-4: 42998 12/11/2014 ([id number]) 25275 EST. P ATIENT, LEVEL IV Diagnosis: Hidradenitis suppurativa[ICD9: 705.83] Diagnosis: ESSENTIAL HYPERTENSION[ICD9: 401.9] Diagnosis: Low back pain[ICD9: 724.2] Diagnosis: Lumbar spinal stenosis[ICD9: 724.02] Diagnosis: HYPOTHYROIDISM[ICD9: 244.9] [facility] CPT-4: 40875 09/18/2014 Office outpatient ne w 30 minutes Diagnosis: ESSENTIAL HYPERTENSION[ICD9: 401.9] Diagnosis: Hypothyroidism[ICD9: 244.9] Diagnosis: Low back pain[ICD9: 724.2] [facility] CPT- 4: 53075 07/31/2014 Plan of Care Planned Activity Notes [...] as indicated 10/30/2018 Appointment: Lynn Arenas WPtel: [phone] (30 min) Complex 10/30/2018 Patient Education: Patient Medication Summary Completed 10/30/2018 Patient Education: Hypertension Completed 10/30/2018 Patient Education: Back Pain Completed 10/30/2018 Appointment: Lynn Arenas WPtel: [phone] [place] (30 min) Complex 10/26/2018 Patient Education: Patient Medication Summary Completed 10/23/2018 Appointment: Lynn Arenas WPtel: [phone] [place] (15 min) Moderate 10/19/2018 Appointment: Aakash Damari WPtel: [facility] (15 min) Moderate 09/19/2018 Visit Plan: [...] times daily. 06/28/2018 Appointment: Lynn Arenas WPtel: [phone] [place] (30 min) Complex 06/28/2018 Patient Education: [...] monitor. 04/04/2018 [facility]ment[phone] (15 min) Moderate 04/04/2018 Patient Education: Patient Medication Summary Completed 04/04/2018 Visit Plan: Wound Instructions - Pt was instructed to keep the wound clean, wash with antibacterial soap, use triple antibiotic ointment, call if redness, pustular drainage, or any other acute concerns. 01/19/2018 App[facility]ment[phone] (30 min) Complex 01/19/2018 Patient Education: [...] concerns. 01/05/2018 Appointment: [phone] [place] (30 min) Complex 01/05/2018 Patient Education: Patient [...] not improve. 11/29/2017 Appointment: [facility] Bal[phone] [facility] [place] (30 min) Complex 11/29/2017 Patient [...] worsening or does not improve. 10/25/2017 Appointment: iMshel Balderrama WPtel: [phone] [phone] (30 min) Complex 10/25/2017 Patient Education: Patient [...] edema. 09/12/2017 Appointment: Mishel Balderrama WPtel: [phone] [phone] (30 min) Complex 09/12/2017 Patient Education: Patient Medication Summary Completed 09/12/2017 Appointment: Lynn Arenas WPtel: [phone] [phone] (30 min) Complex 06/27/2017 Visit Plan: Asthma [...] changes. 06/14/2017 Appointment: Mishel Balderrama [facility]Ptel: [phone] changes 05/10/2017 Appointment: [phone] [facility] [place] (15 min) Moderate [...] changes. 04/19/2017 Appointment: [phone] [facility] [place] (15 min) Moderate 04/19/2017 Patient [...] on previous levels of control. Low back bhak-iherxtp-jwuzoa tramadol for prn use 03/27/2017 Appointment: Lynn Arenas WPtel: [phone] [phone] (30 min) Complex 03/27/2017 Patient Education: Patient [...] improve. 01/26/2017 [phone] ([facility]) Moderate [...] any questions or concerns. 12/07/2016 Appointment: [facility]el[phone] [facility] (15 min) Moderate [...] symptoms. 11/28/2016 Appointment: [facility] Bal[phone] [facility] (15 min) Moderate 11/28/2016 Patient Education: Patient Medication Summary Completed 11/28/2016 Appointment: [facility]el[phone] [facility] (15 min) Moderate 11/24/2016 Visit Plan: [...] changes. 11/15/2016 Appointment: Mis[facility] Balderr[phone] [facility] (30 min) Complex 11/15/2016 Patient Education: [...] changes. 10/17/2016 Appointment: Mis[facility] Balderr[facility] [phone] [facility] (30 min) Complex 10/17/2016 Patient Education: [...] tylenol 09/28/2016 [facility]ment: [phone] (15 min) Moderate [...] control. 06/29/2016 Appointment: [phone] [phone] [place] (15 min) Moderate 06/29/2016 Patient Education: [...] fluconazole 06/01/2016 Appointment: Damari Finn WPtel: [phone] [facility] (15 min) Moderate 06/01/2016 Patient Education: Patient Medication Summary Completed 06/01/2016 Patient Education: Obesity Completed 06/01/2016 Visit Plan: Cellulitis - continue w ith oral antibiotics as previously directed, return to clinic as previously directed, call for acute change in symptoms, worsening redness, warmth, discharge. 05/11/2016 Appointment: Damari iFnn WPtel: [phone] [facility] (15 min) Moderate 05/11/2016 Patient Education: Patient Medication Summary Completed 05/11/2016 Patient Education: Obesity Completed 05/11/2016 Visit Plan: Hypertension - well con trobibied [...] any concerns. 04/01/2016 Appointment: Lynn Arenas WPtel: [address] [place], [place] [phone] (30 min) Complex 04/01/2016 Patient Education: Patient Medication Summary Completed 04/01/2016 Patient Education: Obesity Completed 04/01/2016 Appointment: Lynn Arenas WPtel: [address] [place], [place] [phone] [place] [address] (30 min) Complex 03/29/2016 Visit Plan: Hypertension [...] levels of control. Low back pain-refill tramadol Zuspi-qfwsdyfvmb-thdqvmir resolved 01/26/2016 Appointment: Lynn Arenas WPtel: [address] [place], [place] [phone] [place] [address] (30 min) Complex 01/26/2016 Patient Education: Patient Medication Summary Completed 01/26/2016 Patient Education: Obesity Completed 01/26/2016 Care Plan: BMI Above normal followup RADHA F-MGMT EDUC & TRAIN 1 PT Pending 01/26/2016 Care Plan: Referral Order SNOMED-CT : [id number] Pending 01/07/2016 Appointment: Lynn Arenas WPtel: [address] [place], [place] [phone] (15 min) Moderate 12/24/2015 Visit Plan: Hypertension [...] improving. 06/01/2015 Appointment: [phone] (15 min) Moderate 06/01/2015 Patient [...] back pain - refill tramadol 12/11/2014 Appointment: Aakash Dam[facility]el[phone] [facility] [facility] follow up 12/11/2014 Patient Education: Patient Medication Summary Completed 12/11/2014 Patient Education: Hypertension Completed 12/11/2014 Appointment: AakashJatindery [facility]Ptel[phone] [facility] [facility] follow up 11/27/2014 Visit Plan: Hidradenitis [...] to get her back MRI done at [facility] in [place] as that is where her specialist will be once we get her an appt with one of the local Neurosurgeons. 09/18/2014 Appointment: Damari Finn [facility]Ptel[phone] [facility] Follow up 09/18/2014 [...] as scheduled 07/31/2014 Appointment: Lynn Arenas WPtel[phone] New Patient 07/31/2014 Patient Education: Patient Medication Summary Completed 07/31/2014 Referral: Artur Daugherty she w ill be calling and making her appt Initiated Referral: Artur Daugherty Referral Initiated Instructions Comment Start zyrtec - one d aily Steroid shot today in office Mucinex as needed for congestion cough syrup Let me know if it is not improving. . Asthma Exacerbation - Asthma is a furniture sander jamee problem for this patient, however, the [...] . Asthma Exacerbation - Asthma is a furniture sander jamee problem for this patient, however, the [...] medication into affected eye four times daily. increase synthroid t o 200 mcg . Hypothyroidism- pt with chronic hypoth yroidism, After consultation with Dr. Finn, will increase Synthroid to 200 mcg per day and recheck labs in 3 months. Pt is to monitor fingernail redness. CBC, CMP checked today. [facility] INJECTION TO DAY CALL IF YOU NEED AN ANTIBIOTIC CHECK THYROID LABS GET LABS FROM [facility] ON MONDAY . Asthma Exacerbation - Asthma is a furniture sander jamee problem for this patient, however, the [...] on previous levels of control. Low back vcfq-uzmvzfm-wosiqu tramadol for prn use . Brittle fingernail [...] of control. Rahs - rx for fluconazole tramadol-[facility] . Hypertension - well controlled - [...] levels of control. Low back pain-refill tramadol Nbdrt-lbsdgmgbfd-nnvjccbp resolved bactroban ointment t o sore twice [...] worsening or does not improve. Declined Procedure: (81669) FLU VAC NO PRSV 4 JUSTYNA 3 YRS+; Declined Reason: refused Physical therapy at [facility] . Hypertension - well controlled - oleg [...] Pt to call if nor improving. . Hypertension - wel l controlled - [...] acute changes. I will call your tra madol to [facility] diflucan 150mg daily x 7 [...] to get her back MRI done at [facility] in [place] as that is where her specialist will be once we get her an appt with one of the local Neurosurgeons. INCREASE LEVOTHYROXI NE TO 137MCG DAILY REPEAT [...]
--- OUTSIDE RECORDS SUMMARY | 2020-02-20 19:23 | XMS REPORT | CCD ---
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 Unknown Has never used illegal drugs 014 Allergies, Adverse Reactions, Alerts Substance Reaction Codes Entered Date Inactivated Date Status * NO KNOWN FOOD BEVERLY RGIES Unknown 07/31/2014 No Inactive Date Active bactrim hives, rash RxNorm: 691649 04/05/2016 No Inactive Date Active Past Medical [...] Date Stop Date Sta tus Fill Instructions levothyroxine 137 mc g tablet RxNorm: 637117 1 Tablet(s) PO daily TAKE ONE TABLET BY MOUTH DAILY ON AN EMPTY STOMACH 10/30/2018 01/22/2020 Active ProAir HFA 90 mcg/ac tuation aerosol inhaler RxNorm: 4598774 1-2 Puff(s) INH Q4 P RN INHALE 1 TO 2 PUFFS FOUR TIMES A DAY NEEDED FOR ASTHMA 10/30/2018 01/27/2019 Active tramadol 50 mg tablet RxNorm: 522008 1 Tablet(s) PO Q4 PRN as needed for pain 10/29/2018 12/07/2018 Ac tive lorazepam 1 mg tablet RxNorm: 284608 Tablet(s) TAKE TWO TABLETS BY MOUTH AT B EDTIME NEEDED FOR INSOMNIA AND ONE TABLET DAILY NEEDED ANXIETY 09/06/2018 11/04/2018 Inactive levothyroxine 125 mc g tablet RxNorm: 300443 1 Tablet(s) PO daily TAKE ONE TABLET BY MOUTH DAILY ON AN EMPTY STOMACH 09/06/2018 10/29/2018 Inactive tramadol 50 mg tablet RxNorm: 731217 1 Tablet(s) PO Q4 PRN as needed for pain 09/06/2018 10/15/2018 In active tramadol 50 mg tablet RxNorm: 032252 1 Tablet(s) PO Q4 PRN as needed for pain 07/06/2018 08/14/2018 In active ciprofloxacin 0.3 % eye drops RxNorm: 418494 2 Drop(s) ophthalmic (eye) TID 06/28/2018 07/07/2018 In active lorazepam 1 mg tablet RxNorm: 127729 Tablet(s) TAKE TWO TABLETS BY MOUTH AT B EDTIME NEEDED FOR INSOMNIA AND ONE TABLET DAILY NEEDED ANXIETY 06/28/2018 08/26/2018 Inactive doxycycline hyclate 100 mg tablet RxNorm: 1448396 1 Tablet(s) PO BID 06/28/2018 07/04/2018 Inactive tramadol 50 mg tablet RxNorm: 414754 1 Tablet(s) PO Q4 PRN as needed for pain 06/13/2018 07/05/2018 In active lorazepam 1 mg tablet RxNorm: 772850 Tablet(s) TAKE TWO TABLETS BY MOUTH AT B EDTIME NEEDED FOR INSOMNIA AND ONE TABLET DAILY NEEDED ANXIETY 05/23/2018 06/27/2018 Inactive tramadol 50 mg tablet RxNorm: 415779 1 Tablet(s) PO Q4 PRN as needed for pain 05/23/2018 06/12/2018 In active levothyroxine 125 mc g tablet RxNorm: 787240 Tablet(s) TAKE ONE TA BLET BY MOUTH DAILY ON AN EMPTY STOMACH 05/23/2018 09/05/2018 Inactive tramadol 50 mg tablet RxNorm: 239402 1 Tablet(s) PO Q4 PRN as needed for pain 05/17/2018 05/22/2018 In active levothyroxine 125 mc g tablet RxNorm: 233257 TAKE ONE TABLET BY [facility] DAILY 05/15/2018 06/27/2018 In active levothyroxine 125 mc g tablet RxNorm: 286989 TAKE ONE TABLET BY [facility] DAILY 05/15/2018 06/27/2018 In active tramadol 50 mg tablet RxNorm: 077512 1 Tablet(s) PO Q4 PRN as needed for pain 04/30/2018 05/16/2018 In active Advair Diskus 100 mc g-50 mcg/dose powder for inhalation RxNorm: 8134277 1 Puff(s) INH BID 04/06/2018 No Stop Date Active Symbicort 80 mcg-4.5 mcg/actuation HFA aerosol inhaler RxNorm: 8646143 2 Puff(s) INH BID 04/06/2018 No Stop Date Active Advair Diskus 250 mc g-50 mcg/dose powder for inhalation RxNorm: 6293234 1 Puff(s) INH BID 04/05/2018 09/01/2018 Inactive Zyrtec 10 mg tablet RxNorm: 0671733 1 Tablet(s) PO daily x1 week then PRN 04/05/2018 08/02/2018 In active lisinopril 20 mg-hyd rochlorothiazide 25 mg tablet RxNorm: 645121 Tablet(s) TAKE ONE TABLET BY MOUTH DAILY 04/05/2018 10/29/2018 Inactive Zyrtec 10 mg tablet RxNorm: 3482613 1 Tablet(s) PO daily 04/04/2018 05/03/2018 Inactive tramadol 50 mg tablet RxNorm: 457744 1 Tablet(s) PO Q4 PRN as needed for pain 03/13/2018 04/21/2018 In active lorazepam 1 mg tablet RxNorm: 434839 Tablet(s) TAKE TWO TABLETS BY MOUTH AT B EDTIME NEEDED FOR INSOMNIA AND ONE TABLET DAILY NEEDED ANXIETY 03/02/2018 04/30/2018 Inactive levothyroxine 125 mc g tablet RxNorm: 560391 1 Tablet(s) PO daily 02/06/2018 05/06/2018 Inactive levothyroxine 125 mc g tablet RxNorm: 171908 TAKE ONE TABLET BY MO UTH DAILY ON AN EMPTY STOMACH 02/06/2018 05/22/2018 Inactive tramadol 50 mg tablet RxNorm: 370179 1 Tablet(s) PO Q4 PRN as needed for pain 01/26/2018 03/06/2018 In active lorazepam 1 mg tablet RxNorm: 450252 Tablet(s) TAKE TWO TABLETS BY MOUTH AT B EDTIME NEEDED FOR INSOMNIA AND ONE TABLET DAILY NEEDED ANXIETY 01/23/2018 06/27/2018 Inactive Symbicort 80 mcg-4.5 mcg/actuation HFA aerosol inhaler RxNorm: 9714844 INH 01/05/2018 06/27/2018 In active tramadol 50 mg tablet RxNorm: 129501 1 Tablet(s) PO Q4 PRN as needed for pain 01/04/2018 01/25/2018 In active Advair Diskus 250 mc g-50 mcg/dose powder for inhalation RxNorm: 9348377 1 Puff(s) INH BID 11/29/2017 03/28/2018 Inactive hydrochlorothiazide 12.5 mg tablet RxNorm: 771607 1 Tablet(s) PO daily 11/29/2017 12/28/2017 In active tramadol 50 mg tablet RxNorm: 709693 1 Tablet(s) PO Q4 PRN as needed for pain 11/23/2017 01/01/2018 In active tramadol 50 mg tablet RxNorm: 137275 1 Tablet(s) PO Q4 PRN as needed for pain 10/06/2017 11/14/2017 In active lorazepam 1 mg tablet RxNorm: 707538 Tablet(s) TAKE TWO TABLETS BY MOUTH AT B EDTIME NEEDED FOR INSOMNIA AND ONE TABLET DAILY NEEDED ANXIETY 09/12/2017 06/27/2018 Inactive tramadol 50 mg tablet RxNorm: 328794 1 Tablet(s) PO Q4 PRN as needed for pain 09/12/2017 10/05/2017 In active tramadol 50 mg tablet RxNorm: 206058 1 Tablet(s) PO Q4 PRN as needed for pain 08/15/2017 09/11/2017 In active tramadol 50 mg tablet RxNorm: 854560 1 Tablet(s) PO Q4 PRN as needed for pain 06/29/2017 08/07/2017 In active ProAir HFA 90 mcg/ac tuation aerosol inhaler RxNorm: 7540749 INHALE 1 TO 2 PUFFS FOUR TIMES A DAY NEEDED FOR ASTHMA 06/14/2017 11/10/2017 Inactive prednisone 20 mg tablet RxNorm: 215037 1 Tablet(s) PO BID x 2 days, then 1 pill daily x 3 days, then 1/2 pill every other day x 3 doses. 06/14/2017 09/11/2017 Inactive Kenalog 40 mg/mL madhavi pension for injection RxNorm: 4936473 1 Milliliter(s) Inj 06/14/2017 06/14/2017 In active Zyrtec 10 mg tablet RxNorm: 7358101 1 Tablet(s) PO daily 06/14/2017 07/13/2017 Inactive tramadol 50 mg tablet RxNorm: 946605 1 Tablet(s) PO Q4 PRN as needed for pain 06/08/2017 06/27/2017 In active [SAVINGS FOR UNINSURED PATIENTS -- BIN:0 24975, PCN: ASPROD1, Group: [id number], ID# [id number], Process claim through [employer] for questions: . THIS IS NOT INSURANCE.] tramadol 50 mg tablet RxNorm: 023191 1 Tablet(s) PO Q4 PRN as needed for pain 05/16/2017 06/04/2017 In active [SAVINGS FOR UNINSURED PATIENTS -- BIN:0 96566, PCN: ASPROD1, Group: [id number], ID# [id number], Process claim through [employer] for questions: . THIS IS NOT INSURANCE.] lorazepam 1 mg tablet RxNorm: 209079 Tablet(s) TAKE TWO TABLETS BY MOUTH AT B EDTIME NEEDED FOR INSOMNIA AND ONE TABLET DAILY NEEDED ANXIETY 05/16/2017 08/13/2017 Inactive Lasix 20 mg tablet RxNorm: 1 Tablet(s) PO daily 05/10/2017 05/09/2017 Inactive Lasix 20 mg tablet RxNorm: 1 Tablet(s) PO daily 05/10/2017 05/12/2017 Inactive potassium chloride E R 10 mEq tablet,extended release RxNorm: 374290 1 Tablet(s) PO daily while on the lasix 05/10/2017 05/09/2017 Inactive potassium chloride E R 10 mEq tablet,extended release RxNorm: 481808 1 Tablet(s) PO daily while on the lasix 05/10/2017 05/12/2017 Inactive prednisone 20 mg tablet RxNorm: 822826 1 Tablet(s) PO BID x 2 days, then 1 pill daily x 3 days, then 1/2 pill every other day x 3 doses. 04/19/2017 06/13/2017 Inactive Zithromax Z-Linus 250 mg tablet RxNorm: 601524 1 Tablet(s) PO UD 04/13/2017 06/28/2017 Inactive prednisone 20 mg tablet RxNorm: 902571 1 Tablet(s) PO BID 04/13/2017 04/17/2017 Inactive levothyroxine 125 mc g tablet RxNorm: 057105 1 Tablet(s) PO daily 04/11/2017 10/07/2017 Inactive tramadol 50 mg tablet RxNorm: 737804 1 Tablet(s) PO Q4 PRN as needed for pain 03/27/2017 04/15/2017 In active [SAVINGS FOR UNINSURED PATIENTS -- BIN:0 44732, PCN: ASPROD1, Group: [id number], ID# [id number], Process claim through [employer] for questions: . THIS IS NOT INSURANCE.] Kenalog 40 mg/mL madhavi pension for injection RxNorm: 0088983 1 Milliliter(s) Inj 03/27/2017 03/27/2017 In active tramadol 50 mg tablet RxNorm: 529656 1 Tablet(s) PO Q4H as needed for pain 03/09/2017 03/26/2017 In active [SAVINGS FOR UNINSURED PATIENTS -- BIN:0 15166, PCN: ASPROD1, Group: [id number], ID# [id number], Process claim through [employer] for questions: . THIS IS NOT INSURANCE.] lisinopril 20 mg-hyd rochlorothiazide 25 mg tablet RxNorm: 409567 TAKE ONE TABLET BY MOUTH DAILY 01/29/2017 11/21/2017 Inactive lorazepam 1 mg tablet RxNorm: 730415 Tablet(s) TAKE TWO TABLETS BY MOUTH AT B EDTIME NEEDED FOR INSOMNIA AND ONE TABLET DAILY NEEDED ANXIETY 01/05/2017 04/04/2017 Inactive tramadol 50 mg tablet RxNorm: 142750 1 Tablet(s) PO Q4H as needed for pain 12/07/2016 01/13/2017 In active [SAVINGS FOR UNINSURED PATIENTS -- BIN:0 17893, PCN: ASPROD1, Group: [id number], ID# [id number], Process claim through [employer] for questions: . THIS IS NOT INSURANCE.] Kenalog 40 mg/mL madhavi pension for injection RxNorm: 5212872 Milliliter(s) Inj 12/07/2016 12/07/2016 In active nystatin 100,000 uni t/mL oral suspension RxNorm: 855137 4 Milliliter(s) PO QI D 12/07/2016 12/11/2016 In active Francia-D 12 Hour 60 mg-120 mg tablet,extended release RxNorm: 290218 1 Tablet(s) PO BID 12/07/2016 01/11/2017 Inactive lorazepam 1 mg tablet RxNorm: 507798 Tablet(s) TAKE TWO TABLETS BY MOUTH AT B EDTIME AND ONE TABLET DAILY NEEDED 12/07/2016 01/04/2017 Inactive (Response to an electronic controlled substance refill request - RxReferenceNumber: [id number]) albuterol sulfate 2. 5 mg/3 mL (0.083 %) solution for nebulization RxNorm: 681558 3 Milliliter(s) INH TID 11/29/2016 11/28/2016 Inactive prednisone 10 mg tablet RxNorm: 209727 Tablet(s) PO UD 11/29/2016 12/05/2016 Inactive 6,5,4,3,2,1 doxycycline hyclate 100 mg tablet RxNorm: 903557 1 Tablet(s) PO BID 11/29/2016 12/04/2016 Inactive albuterol sulfate 2. 5 mg/3 mL (0.083 %) solution for nebulization RxNorm: 154657 3 Milliliter(s) INH TID 11/29/2016 12/03/2016 Inactive Kenalog 40 mg/mL madhavi pension for injection RxNorm: 3429379 Milliliter(s) Inj 11/28/2016 11/28/2016 In active tramadol 50 mg tablet RxNorm: 553251 1 Tablet(s) PO Q4H as needed for pain 11/15/2016 12/06/2016 In active [SAVINGS FOR UNINSURED PATIENTS -- BIN:0 96912, PCN: ASPROD1, Group: [id number], ID# [id number], Process claim through [employer] for questions: . THIS IS NOT INSURANCE.] prednisone 20 mg tablet RxNorm: 059929 2 Tablet(s) PO daily 11/15/2016 11/19/2016 Inactive Advair Diskus 100 mc g-50 mcg/dose powder for inhalation RxNorm: 2927996 1 Puff(s) INH BID 11/15/2016 06/11/2017 Inactive ProAir HFA 90 mcg/ac tuation aerosol inhaler RxNorm: 292826 INHALE 1 TO 2 PUFFS F OUR TIMES A DAY NEEDED FOR ASTHMA 11/15/2016 04/13/2017 Inactive Zithromax Z-Linus 250 mg tablet RxNorm: 884338 1 Tablet(s) PO UD 11/15/2016 11/27/2016 Inactive Zyrtec 10 mg tablet RxNorm: 6554692 1 Tablet(s) PO daily 10/17/2016 11/15/2016 Inactive Keflex 500 mg capsule RxNorm: 807233 1 Capsule(s) PO TID 10/17/2016 10/23/2016 Inactive prednisone 10 mg tablet RxNorm: 509760 Tablet(s) PO UD 10/17/2016 11/28/2016 Inactive 6,5,4,3,2,1 tramadol 50 mg tablet RxNorm: 462778 1 Tablet(s) PO Q4H as needed for pain 09/28/2016 11/06/2016 In active [SAVINGS FOR UNINSURED PATIENTS -- BIN:0 46874, PCN: ASPROD1, Group: [id number], ID# [id number], Process claim through [employer] for questions: . THIS IS NOT INSURANCE.] ProAir HFA 90 mcg/ac tuation aerosol inhaler RxNorm: 836457 INHALE 1 TO 2 PUFFS F OUR TIMES A DAY NEEDED FOR ASTHMA 09/15/2016 11/14/2016 Inactive doxycycline hyclate 100 mg tablet RxNorm: 928198 1 Tablet(s) PO BID 09/15/2016 09/24/2016 Inactive doxycycline hyclate 100 mg tablet RxNorm: 669924 1 Tablet(s) PO BID 07/29/2016 08/07/2016 Inactive tramadol 50 mg tablet RxNorm: 119313 1 Tablet(s) PO Q4H as needed for pain 07/29/2016 09/06/2016 In active [SAVINGS FOR UNINSURED PATIENTS -- BIN:0 26214, PCN: ASPROD1, Group: [id number], ID# [id number], Process claim through [employer], for questions: . THIS IS NOT INSURANCE.] lorazepam 1 mg tablet RxNorm: 774685 Tablet(s) TAKE TWO TABLETS BY MOUTH AT B EDTIME AND ONE TABLET DAILY NEEDED 07/29/2016 10/26/2016 Inactive (Response to an electronic controlled substance refill request - RxReferenceNumber: [id number]) levothyroxine 125 mc g tablet RxNorm: 883177 1 Tablet(s) PO daily 06/29/2016 06/29/2016 Inactive levothyroxine 137 mc g tablet RxNorm: 877263 1 Tablet(s) PO daily 06/29/2016 12/25/2016 Inactive ketoconazole 2 % [facility] RxNorm: 873304 1 Application TOP BID 06/29/2016 07/03/2016 Inactive tramadol 50 mg tablet RxNorm: 372982 1 Tablet(s) PO Q4H as needed for pain 06/16/2016 07/25/2016 In active [SAVINGS FOR UNINSURED PATIENTS -- BIN:0 61037, PCN: ASPROD1, Group: [id number], ID# [id number], Process claim through [employer] for questions: . THIS IS NOT INSURANCE.] Bactroban 2 % topica l ointment RxNorm: 445796 APPLY TO AFFECTED ARE A(S) TWO TIMES A DAY 06/16/2016 04/16/2017 Inactive fluconazole 150 mg t ablet RxNorm: 660128 1 Tablet(s) PO daily 06/01/2016 06/05/2016 Inactive gentamicin 0.1 % top ical ointment RxNorm: 018162 1 Application TOP QID 05/12/2016 05/25/2016 In active metronidazole 500 mg tablet RxNorm: 596273 1 Tablet(s) PO TID 05/11/2016 05/24/2016 Inactive gentamicin 0.1 % top ical ointment RxNorm: 484043 1 Application TOP QID 05/11/2016 05/11/2016 In active doxycycline hyclate 100 mg tablet RxNorm: 760451 1 Tablet(s) PO BID 05/11/2016 05/24/2016 Inactive lorazepam 1 mg tablet RxNorm: 803933 Tablet(s) TAKE TWO TABLETS BY MOUTH AT B EDTIME AND ONE TABLET DAILY NEEDED 05/02/2016 07/28/2016 Inactive (Response to an electronic controlled substance refill request - RxReferenceNumber: [id number]) Diflucan 150 mg tablet RxNorm: 102688 1 Tablet(s) PO daily x5 days then 1 x we ekly x 4 weeks. 05/02/2016 04/10/2017 Inactive Diflucan 150 mg tablet RxNorm: 228146 1 Tablet(s) PO every other day 04/19/2016 04/28/2016 In active Diflucan 150 mg tablet RxNorm: 642801 1 Tablet(s) PO every other day 04/19/2016 04/18/2016 In active Diflucan 150 mg tablet RxNorm: 446269 1 Tablet(s) PO daily 04/05/2016 04/11/2016 Inactive mupirocin 2 % topica l ointment RxNorm: 452435 1 Application TOP BID 04/05/2016 05/04/2016 Inactive tramadol 50 mg tablet RxNorm: 406004 1 Tablet(s) PO Q4H as needed for pain 04/05/2016 05/14/2016 In active [SAVINGS FOR UNINSURED PATIENTS -- BIN:0 50719, PCN: ASPROD1, Group: [id number], ID# [id number], Process claim through [employer] for questions: . THIS IS NOT INSURANCE.] prednisone 10 mg tablet RxNorm: 212917 Tablet(s) PO UD 04/01/2016 09/26/2016 Inactive 6,5,4,3,2,1 levothyroxine 137 mc g tablet RxNorm: 971941 1 Tablet(s) PO daily 03/21/2016 03/20/2016 Inactive levothyroxine 137 mc g tablet RxNorm: 780013 1 Tablet(s) PO daily 03/21/2016 06/28/2016 Inactive Advair Diskus 100 mc g-50 mcg/dose powder for inhalation RxNorm: 4193955 1 Puff(s) INH BID 01/26/2016 05/24/2016 Inactive tramadol 50 mg tablet RxNorm: 916611 1 Tablet(s) PO Q4H as needed for pain 01/26/2016 03/05/2016 In active [SAVINGS FOR UNINSURED PATIENTS -- BIN:0 33855, PCN: ASPROD1, Group: [id number], ID# [id number], Process claim through [employer] for questions: . THIS IS NOT INSURANCE.] Bactroban 2 % topica l ointment RxNorm: 700252 APPLY TO AFFECTED ARE A(S) TWO TIMES A DAY 12/22/2015 12/31/2015 Inactive Bactrim DS 800 mg-16 0 mg tablet RxNorm: 951311 TAKE ONE TABLET BY [facility] TWICE A DAY 12/22/2015 04/18/2016 In active Bactrim DS 800 mg-16 0 mg tablet RxNorm: 442638 1 Tablet(s) PO BID 12/21/2015 12/30/2015 Inactive lisinopril 20 mg-hyd rochlorothiazide 25 mg tablet RxNorm: 747399 1 Tablet(s) PO daily 12/21/2015 06/17/2016 Inactive [SAVINGS FOR UNINSURED PATIENTS -- BIN:0 45778, PCN: ASPROD1, Group: [id number], ID# [id number], Process claim through [employer], for questions: . THIS IS NOT INSURANCE.] tramadol 50 mg tablet RxNorm: 941006 1 Tablet(s) PO Q4H as needed for pain 12/03/2015 01/11/2016 In active [SAVINGS FOR UNINSURED PATIENTS -- BIN:0 59719, PCN: ASPROD1, Group: [id number], ID# [id number], Process claim through [employer], for questions: . THIS IS NOT INSURANCE.] lorazepam 1 mg tablet RxNorm: 590119 Tablet(s) TAKE TWO TABLETS BY MOUTH AT B EDTIME AND ONE TABLET DAILY NEEDED 11/26/2015 06/27/2018 Inactive (Response to an electronic controlled substance refill request - RxReferenceNumber: [id number]) Bactrim DS 800 mg-16 0 mg tablet RxNorm: 527252 1 Tablet(s) PO BID 11/25/2015 12/04/2015 Inactive levothyroxine 150 mc g tablet RxNorm: 628665 1 Tablet(s) PO daily 11/25/2015 03/20/2016 Inactive Bactroban 2 % topica l ointment RxNorm: 497260 1 Application TOP BID 10/12/2015 10/21/2015 Inactive Bactrim DS 800 mg-16 0 mg tablet RxNorm: 603707 1 Tablet(s) PO BID 09/07/2015 09/06/2015 Inactive Bactrim DS 800 mg-16 0 mg tablet RxNorm: 597810 1 Tablet(s) PO BID 09/07/2015 09/16/2015 Inactive lorazepam 1 mg tablet RxNorm: 740084 Tablet(s) TAKE TWO TABLETS BY MOUTH AT B EDTIME AND ONE TABLET DAILY NEEDED 08/28/2015 11/24/2015 Inactive (Response to an electronic controlled substance refill request - RxReferenceNumber: [id number]) levothyroxine 175 mc g tablet RxNorm: 403874 1 Tablet(s) PO daily 08/24/2015 11/24/2015 Inactive tramadol 50 mg tablet RxNorm: 761074 1 Tablet(s) PO Q4H as needed for pain 08/24/2015 09/11/2017 In active [SAVINGS FOR UNINSURED PATIENTS -- BIN:0 63106, PCN: ASPROD1, Group: [id number], ID# [id number], Process claim through [employer] for questions: . THIS IS NOT INSURANCE.] lisinopril 20 mg-hyd rochlorothiazide 25 mg tablet RxNorm: 966159 1 Tablet(s) PO daily TAKE 1 TABLET BY MOUTH DAILY 08/24/2015 06/27/2018 Inactive ProAir HFA 90 mcg/ac tuation aerosol inhaler RxNorm: 506436 1-2 Puff(s) INH PRN I NHALE ONE TO TWO PUFFS BY MOUTH FOUR TIMES A DAY NEEDED FOR ASTHMA 08/24/2015 12/01/2015 In active ProAir HFA 90 mcg/ac tuation aerosol inhaler RxNorm: 7265008 INHALE ONE TO TWO PU FFS BY MOUTH FOUR TIMES A DAY NEEDED FOR ASTHMA 08/17/2015 08/23/2015 Inactive Advair Diskus 250 mc g-50 mcg/dose powder for inhalation RxNorm: 7373349 1 Puff(s) INH BID 07/20/2015 07/19/2015 Inactive Advair Diskus 250 mc g-50 mcg/dose powder for inhalation RxNorm: 2712571 1 Puff(s) INH BID 07/20/2015 11/16/2015 Inactive tramadol 50 mg tablet RxNorm: 336544 1 Tablet(s) PO Q4H as needed for pain 07/10/2015 08/17/2015 In active [SAVINGS FOR UNINSURED PATIENTS -- BIN:0 36677, PCN: ASPROD1, Group: [id number], ID# [id number], Process claim through [employer] for questions: . THIS IS NOT INSURANCE.] Zithromax Z-Linus 250 mg tablet RxNorm: 269086 1 Tablet(s) PO UD 07/10/2015 01/18/2016 Inactive Keflex 500 mg capsule RxNorm: 522628 1 Capsule(s) PO TID 06/01/2015 06/07/2015 Inactive mupirocin 2 % topica l ointment RxNorm: 437549 1 Application TOP TID 06/01/2015 06/10/2015 Inactive lisinopril 20 mg-hyd rochlorothiazide 25 mg tablet RxNorm: 269511 TAKE 1 TABLET BY MOUT H DAILY 05/30/2015 08/23/2015 Inactive lisinopril 20 mg-hyd rochlorothiazide 25 mg tablet RxNorm: 519398 1 Tablet(s) PO daily 05/29/2015 11/24/2015 Inactive [SAVINGS FOR UNINSURED PATIENTS -- BIN:0 10807, PCN: ASPROD1, Group: [id number], ID# [id number], Process claim through [employer], for questions: . THIS IS NOT INSURANCE.] lorazepam 1 mg tablet RxNorm: 046513 Tablet(s) TAKE TWO TABLETS BY MOUTH AT B EDTIME AND ONE TABLET DAILY NEEDED 04/17/2015 07/13/2015 Inactive (Response to an electronic controlled substance refill request - RxReferenceNumber: [id number]) levothyroxine 200 mc g tablet RxNorm: 684184 1 Tablet(s) PO daily 03/12/2015 08/23/2015 Inactive [SAVINGS FOR UNINSURED PATIENTS -- BIN:0 78944, PCN: ASPROD1, Group: [id number], ID# [id number], Process claim through [employer], for questions: . THIS IS NOT INSURANCE.] lisinopril 20 mg-hyd rochlorothiazide 25 mg tablet RxNorm: 308403 1 Tablet(s) PO daily 03/11/2015 05/28/2015 Inactive [SAVINGS FOR UNINSURED PATIENTS -- BIN:0 21666, PCN: ASPROD1, Group: [id number], ID# [id number], Process claim through [employer], for questions: . THIS IS NOT INSURANCE.] levothyroxine 175 mc g tablet RxNorm: 420532 1 Tablet(s) PO daily 03/09/2015 03/11/2015 Inactive recheck blood in 3 months- THIS IS CORRE CT DOSAGE levothyroxine 175 mc g tablet RxNorm: 262038 1 Tablet(s) PO daily 03/09/2015 03/08/2015 Inactive recheck blood in 3 months levothyroxine 150 mc g tablet RxNorm: 564001 1 Tablet(s) PO daily 03/09/2015 03/08/2015 Inactive recheck blood in 3 months lorazepam 1 mg tablet RxNorm: 291063 TAKE TWO TABLETS BY MOUTH AT BEDTIME AND ONE TABLET DAILY NEEDED 12/25/2014 01/22/2015 Inactive (Response to an electronic controlled substance refill request - RxReferenceNumber: [id number]) lorazepam 1 mg tablet RxNorm: 676325 Tablet(s) TAKE TWO TABLETS BY MOUTH EVER Y NIGHT AT BEDTIME AND TAKE ONE TABLET BY MOUTH DAILY NEEDED 12/23/2014 12/25/2014 Inactive (Response to an electronic controlled [place] bstance refill request - RxReferenceNumber: [id number]) levothyroxine 150 mc g tablet RxNorm: 673688 1 Tablet(s) PO daily 12/12/2014 03/08/2015 Inactive recheck blood in 3 months Diflucan 150 mg tablet RxNorm: 587930 1 Tablet(s) PO every other day (start af ter finished with Cipro) 11/17/2014 08/23/2015 Inactive tramadol 50 mg tablet RxNorm: 413700 1 Tablet(s) PO Q4H as needed for pain 11/10/2014 12/17/2014 In active [SAVINGS FOR UNINSURED PATIENTS -- BIN:0 13865, PCN: ASPROD1, Group: [id number], ID# [id number], Process claim through [employer] for questions: . THIS IS NOT INSURANCE.] Cipro 500 mg tablet RxNorm: 353630 1 Tablet(s) PO BID 10/23/2014 10/29/2014 Inactive Flagyl 500 mg tablet RxNorm: 795771 1 Tablet(s) PO TID 10/23/2014 10/29/2014 Inactive Cipro 500 mg tablet RxNorm: 038374 1 Tablet(s) PO BID 10/23/2014 10/22/2014 Inactive Flagyl 500 mg tablet RxNorm: 894826 1 Tablet(s) PO TID 10/23/2014 10/22/2014 Inactive Diflucan 150 mg tablet RxNorm: 918480 1 Tablet(s) PO every other day (start af ter finished with Cipro) 10/23/2014 11/16/2014 Inactive lorazepam 1 mg tablet RxNorm: 393744 TAKE TWO TABLETS BY MOUTH EVERY NIGHT AT BEDTIME AND TAKE ONE TABLET BY MOUTH DAILY NEEDED 10/21/2014 10/21/2014 Inactive (Response to an electronic controlled north bstance refill request - RxReferenceNumber: [id number]) lorazepam 1 mg tablet RxNorm: 156531 TAKE TWO TABLETS BY MOUTH EVERY NIGHT AT BEDTIME AND TAKE ONE TABLET BY MOUTH DAILY NEEDED 10/21/2014 11/18/2014 Inactive (Response to an electronic controlled north bstance refill request - RxReferenceNumber: [id number]) lorazepam 1 mg tablet RxNorm: 003491 Tablet(s) TAKE TWO TABLETS BY MOUTH AT B EDTIME, ALSO TAKE ONE TABLET BY MOUTH DAILY NEEDED 10/13/2014 10/21/2014 Inactive (Res ponse to an electronic controlled substance refill request - RxReferenceNumber: [id number]) ProAir HFA 90 mcg/ac tuation aerosol inhaler RxNorm: 5599101 1-2 inhale INH QID a s needed ASTHMA 10/13/2014 12/26/2014 Inactive ProAir HFA 90 mcg/ac tuation aerosol inhaler RxNorm: 4868833 1-2 inhale INH QID a s needed ASTHMA 09/18/2014 10/12/2014 Inactive meloxicam 7.5 mg tablet RxNorm: 997111 1 Tablet(s) PO daily 09/18/2014 03/10/2015 Inactive [SAVINGS FOR UNINSURED PATIENTS -- BIN:[id number], PCN: [id number], Group: [id number], ID# [id number], Process claim through [employer] for questions: . THIS IS NOT INSURANCE.] sulfamethoxazole 800 mg-trimethoprim 160 mg tablet RxNorm: 594787 1 Tablet(s) PO BID 09/18/2014 10/07/2014 Inactive levothyroxine 175 mc g tablet RxNorm: 173189 1 Tablet(s) PO daily 09/17/2014 12/11/2014 Inactive levothyroxine 175 mc g tablet RxNorm: 042647 1 Tablet(s) PO daily 09/17/2014 09/16/2014 Inactive lorazepam 1 mg tablet RxNorm: 146411 Tablet(s) TAKE TWO TABLETS BY MOUTH AT B EDTIME, ALSO TAKE ONE TABLET BY MOUTH DAILY NEEDED 09/12/2014 10/11/2014 Inactive (Res ponse to an electronic controlled substance refill request - RxReferenceNumber: [id number]) lorazepam 1 mg tablet RxNorm: 617454 TAKE TWO TABLETS BY MOUTH AT BEDTIME, AL SO TAKE ONE TABLET BY MOUTH DAILY NEEDED 09/08/2014 09/11/2014 Inactive (Res ponse to an electronic controlled substance refill request - RxReferenceNumber: [id number]) meloxicam 7.5 mg tablet RxNorm: 925846 1 Tablet(s) PO daily 09/01/2014 09/17/2014 Inactive [SAVINGS FOR UNINSURED PATIENTS -- BIN:0 85567, PCN: ASPROD1, Group: [id number], ID# [id number], Process claim through [employer], for questions: . THIS IS NOT INSURANCE.] lisinopril 20 mg-hyd rochlorothiazide 25 mg tablet RxNorm: 328297 1 Tablet(s) PO daily 09/01/2014 12/29/2014 Inactive [SAVINGS FOR UNINSURED PATIENTS -- BIN:0 59357, PCN: ASPROD1, Group: [id number], ID# [id number], Process claim through [employer], for questions: . THIS IS NOT INSURANCE.] tramadol 50 mg tablet RxNorm: 875565 1 Tablet(s) PO Q4H as needed for pain 08/20/2014 11/07/2014 In active [SAVINGS FOR UNINSURED PATIENTS -- BIN:0 52070, PCN: ASPROD1, Group: [id number], ID# [id number], Process claim through [employer], for questions: . THIS IS NOT INSURANCE.] meloxicam 7.5 mg tablet RxNorm: 328706 1 Tablet(s) PO daily 08/14/2014 08/31/2014 Inactive [SAVINGS FOR UNINSURED PATIENTS -- BIN:0 25304, PCN: ASPROD1, Group: AME08, ID# [id number], Process claim through [employer], for questions: . THIS IS NOT INSURANCE.] lorazepam 1 mg tablet RxNorm: 157525 2 Tablet(s) PO QHS and 1 tab qd PRN 08/01/2014 09/08/2014 In active [SAVINGS FOR UNINSURED PATIENTS -- BIN:0 88165, PCN: ASPROD1, Group: [id number], ID# [id number], Process claim through [employer], for questions: . THIS IS NOT INSURANCE.] levothyroxine 200 mc g tablet RxNorm: 519794 1 Tablet(s) PO daily 07/31/2014 09/16/2014 Inactive [SAVINGS FOR UNINSURED PATIENTS -- BIN:0 64501, PCN: ASPROD1, Group: [id number], ID# [id number], Process claim through [employer], for questions: . THIS IS NOT INSURANCE.] lorazepam 1 mg tablet RxNorm: 702882 2 Tablet(s) PO QHS and 1 tab qd PRN No Start Date 07/31/2014 Inactive Phenergan VC-Codeine oral RxNorm: 618389 oral No S tart Date 11/26/2017 Inactive meloxicam 7.5 mg tablet RxNorm: 959007 1 Tablet(s) PO daily No Start Date 08/13/2014 Inactive lisinopril 20 mg-hyd rochlorothiazide 25 mg tablet RxNorm: 963571 1 Tablet(s) PO daily No Start Date 08/31/2014 Inactive levothyroxine 200 mc g tablet RxNorm: 795408 1 Tablet(s) PO daily No Start Date 07/30/2014 Inactive Diflucan 150 mg tablet RxNorm: 683048 1 Tablet(s) PO every other day No Start Date 10/22/2014 Inactive Zithromax Z-Linus 250 mg tablet RxNorm: 268020 1 Tablet(s) PO UD No Start Date 07/09/2015 Inactive tramadol 50 mg tablet RxNorm: 910175 1 Tablet(s) PO Q6 as needed No Start Date 08/19/2014 Inactive Medication Administered Medication Codes Instruc tions Start Date Status Kenalog 40 mg/mL suspension for injection RxNorm: 8979420 1Milliliter 06/14/2017 N o longer Active Kenalog 40 mg/mL suspension for injection RxNorm: 7389844 1Milliliter 03/27/2017 N o longer Active Kenalog 40 mg/mL suspension for injection RxNorm: 3189349 Milliliter 12/07/2016 No longer Active Kenalog 40 mg/mL suspension for injection RxNorm: 0749375 Milliliter 11/28/2016 No longer Active Immunizations Vaccine [...] Ord30 C/HDL 4.1 Ratio 10/24/2018 Comp Metabolic Inh917 NA 141 mEq/L 10/24/2018 Comp Metabolic Acn956 K 3.7 mEq/L 10/24/2018 Comp Metabolic Hjy956 CL 103 mEq/L 10/24/2018 Comp Metabolic Tdo297 CO2 30.0 mEq/L 10/24/2018 Comp Metabolic Mnh873 AN ION GAP 12 10/24/2018 Comp Metabolic Bdo269 GL UCOSE 98 mg/dL 10/24/2018 Comp Metabolic Coe793 Cr eat 0.8 mg/dL 10/24/2018 Comp Metabolic Yod920 eG FR 71 ml/min/1.73m2 10/24 Comp Metabolic Fdr936 BUN 12 mg/dL 10/24/2018 Comp Metabolic Hoy400 B/ C Ratio 14.5 Ratio 10/24/2018 Comp Metabolic Yds510 CA LCIUM 9.2 mg/dL 10/24/2018 Comp Metabolic Jbc324 AL K PHOS 76 U/L 10/24/2018 Comp Metabolic Bqy420 T(SGOT) 12 U/L 10/24/2018 Comp Metabolic Abn310 AL T(SGPT) 9 U/L 10/24/2018 Comp Metabolic Tlf870 BI LI T 0.5 mg/dL 10/24/2018 Comp Metabolic Xja999 AL BUMIN 4.3 g/dL 10/24/2018 Comp Metabolic Rfb822 TP RO 6.5 g/dL 10/24/2018 Comp Metabolic Mcl030 GL OB 2.2 g/dL 10/24/2018 Comp Metabolic Xtg063 A/ G Ratio 2.0 Ratio 10/24/2018 Comp Metabolic Mtx766 Os mo 281 mOsmo 10/24/2018 Free T4 Ovb564 FREE T4 0.76 ng/dL 10/24/2018 Cbc With [...] 30.5 pg 10/24/2018 Cbc With Differential Ord2 [place]% 8.4 % 10/24/2018 Cbc With Differential Ord2 [...] 1.71 K/ul 10/24/2018 Cbc With Differential Ord2 [place] ABS# 0.4 K/ul 10/24/2018 Cbc With Differential [...] 30.0 pg 04/04/2018 Cbc With Differential Ord2 [place]% 10.9 % 04/04/2018 Cbc With Differential Ord2 [...] 1.42 K/ul 04/04/2018 Cbc With Differential Ord2 [place] ABS# 0.6 K/ul 04/04/2018 Cbc With Differential Ord2 Eos ABS# 0.1 K/ul 04/04/2018 Cbc With Differential Ord2 Baso ABS# 0.0 K/ul 04/04/2018 Free T4 Cfj653 FREE T4 1.25 ng/dL 04/04/2018 Tsh Ord6 [...] 30.2 pg 11/28/2017 Cbc With Differential Ord2 [place]% 10.1 % 11/28/2017 Cbc With Differential Ord2 [...] 1.33 K/ul 11/28/2017 Cbc With Differential Ord2 [place] ABS# 0.5 K/ul 11/28/2017 Cbc With Differential Ord2 Eos ABS# 0.1 K/ul 11/28/2017 Cbc With Differential Ord2 Baso ABS# 0.0 K/ul 11/28/2017 Free T4 Eqh516 FREE T4 1.43 ng/dL 11/28/2017 Lipid Ord30 CHOL 186 mg/dL 11/28/2017 Lipid Ord30 HDL 54.0 mg/dl 11/28/2017 Lipid Ord30 TRIG 59 mg/dL 11/28/2017 Lipid Ord30 LDL 120 mg/dL 11/28/2017 Lipid Ord30 C/HDL 3.4 Ratio 11/28/2017 Comp Metabolic Qzf852 NA 141 mEq/L 11/28/2017 Comp Metabolic Uym218 K 4.0 mEq/L 11/28/2017 Comp Metabolic Mif498 CL 105 mEq/L 11/28/2017 Comp Metabolic Xtk009 CO2 29.0 mEq/L 11/28/2017 Comp Metabolic Hpx742 AN ION GAP 11 11/28/2017 Comp Metabolic Jtu095 GL UCOSE 91 mg/dL 11/28/2017 Comp Metabolic Ega102 Cr eat 0.8 mg/dL 11/28/2017 Comp Metabolic Umy221 eG FR 74 ml/min/1.73m2 11/28 Comp Metabolic Ggo505 BUN 15 mg/dL 11/28/2017 Comp Metabolic Oqr565 B/ C Ratio 18.8 Ratio 11/28/2017 Comp Metabolic Geg521 CA LCIUM 8.6 mg/dL 11/28/2017 Comp Metabolic Kte175 AL K PHOS 76 U/L 11/28/2017 Comp Metabolic Qzs087 T(SGOT) 10 U/L 11/28/2017 Comp Metabolic Jgy364 AL T(SGPT) 8 U/L 11/28/2017 Comp Metabolic Tbu168 BI LI T 0.5 mg/dL 11/28/2017 Comp Metabolic Uer930 AL BUMIN 4.0 g/dL 11/28/2017 Comp Metabolic Xsp746 TP RO 6.1 g/dL 11/28/2017 Comp Metabolic Tpz623 GL OB 2.1 g/dL 11/28/2017 Comp Metabolic Qgt462 A/ G Ratio 1.9 Ratio 11/28/2017 Comp Metabolic Bpe757 Os mo 282 mOsmo 11/28/2017 Tsh Ord6 TSH (3rd IS) 3.31 uIU/mL 11/28/2017 Tsh Ord6 hTSH II 1.45 uIU/mL 03/27/2017 Free T4 Ivq731 FREE T4 1.23 ng/dL 03/27/2017 Comp Metabolic Pjy772 NA 140 mEq/L 09/28/2016 Comp Metabolic Amr218 K 3.9 mEq/L 09/28/2016 Comp Metabolic Fpf674 CL 104 mEq/L 09/28/2016 Comp Metabolic Nny487 CO2 28.0 mEq/L 09/28/2016 Comp Metabolic Kxn600 AN ION GAP 12 09/28/2016 Comp Metabolic Mda834 GL UCOSE 97 mg/dL 09/28/2016 Comp Metabolic Tpd977 Cr eat 0.8 mg/dL 09/28/2016 Comp Metabolic Wjc107 eG FR 79 ml/min/1.73m2 09/28 Comp Metabolic Jhs993 BUN 13 mg/dL 09/28/2016 Comp Metabolic Tpe257 B/ C Ratio 17.1 Ratio 09/28/2016 Comp Metabolic Szf233 CA LCIUM 8.9 mg/dL 09/28/2016 Comp Metabolic Elb019 AL K PHOS 100 U/L 09/28/2016 Comp Metabolic Nku763 T(SGOT) 12 U/L 09/28/2016 Comp Metabolic Gjq017 AL T(SGPT) 9 U/L 09/28/2016 Comp Metabolic Rsx499 BI LI T 0.4 mg/dL 09/28/2016 Comp Metabolic Xzo955 AL BUMIN 4.1 g/dL 09/28/2016 Comp Metabolic Fje750 TP RO 6.6 g/dL 09/28/2016 Comp Metabolic Ble675 GL OB 2.5 g/dL 09/28/2016 Comp Metabolic Dns722 A/ G Ratio 1.6 Ratio 09/28/2016 Comp Metabolic Mqu119 Os mo 279 mOsmo 09/28/2016 Lipid Ord30 [...] 28.8 pg 09/28/2016 Cbc With Differential Ord2 [place]% 7.2 % 09/28/2016 Cbc With Differential Ord2 [...] 1.41 K/ul 09/28/2016 Cbc With Differential Ord2 [place] ABS# 0.5 K/ul 09/28/2016 Cbc With Differential Ord2 Eos ABS# 0.2 K/ul 09/28/2016 Cbc With Differential Ord2 Baso ABS# 0.0 K/ul 09/28/2016 Free T4 Huu074 FREE T4 1.43 ng/dL 09/28/2016 Tsh Ord6 hTSH II 0.52 uIU/mL 09/28/2016 Tsh Ord6 hTSH II 0.47 uIU/mL 06/16/2016 Comp Metabolic Thq607 NA 139 mEq/L 06/16/2016 Comp Metabolic Qrj047 K 4.3 mEq/L 06/16/2016 Comp Metabolic Drv897 CL 105 mEq/L 06/16/2016 Comp Metabolic Ual335 CO2 30.0 mEq/L 06/16/2016 Comp Metabolic Zri309 AN ION GAP 8 06/16/2016 Comp Metabolic Hab512 GL UCOSE 90 mg/dL 06/16/2016 Comp Metabolic Isu845 Cr eat 0.7 mg/dL 06/16/2016 Comp Metabolic Pis236 eG FR 91 ml/min/1.73m2 06/16 Comp Metabolic Rbl083 BUN 15 mg/dL 06/16/2016 Comp Metabolic Pvy024 B/ C Ratio 22.4 Ratio 06/16/2016 Comp Metabolic Pzh805 CA LCIUM 8.8 mg/dL 06/16/2016 Comp Metabolic Nux255 AL K PHOS 79 U/L 06/16/2016 Comp Metabolic Asn909 T(SGOT) 13 U/L 06/16/2016 Comp Metabolic Fhh066 AL T(SGPT) 11 U/L 06/16/2016 Comp Metabolic Fyv162 BI LI T 0.5 mg/dL 06/16/2016 Comp Metabolic Opv310 AL BUMIN 3.9 g/dL 06/16/2016 Comp Metabolic Mku878 TP RO 6.1 g/dL 06/16/2016 Comp Metabolic Mgf726 GL OB 2.2 g/dL 06/16/2016 Comp Metabolic Ehh659 A/ G Ratio 1.8 Ratio 06/16/2016 Comp Metabolic Kco360 Os mo 278 mOsmo 06/16/2016 Lipid Ord30 [...] 28.9 pg 06/16/2016 Cbc With Differential Ord2 [place]% 8.1 % 06/16/2016 Cbc With Differential Ord2 [...] 1.70 K/ul 06/16/2016 Cbc With Differential Ord2 [place] ABS# 0.4 K/ul 06/16/2016 Cbc With Differential Ord2 Eos ABS# 0.2 K/ul 06/16/2016 Cbc With Differential Ord2 Baso ABS# 0.0 K/ul 06/16/2016 Free T4 Jlc241 FREE T4 1.42 ng/dL 06/16/2016 Free T4 Lha405 FREE T4 1.34 ng/dL 03/04/2016 Tsh Ord6 hTSH II 0.56 uIU/mL 03/04/2016 Tsh Ord6 hTSH II 0.98 uIU/mL 01/27/2016 Free T4 Eit435 FREE T4 1.19 ng/dL 01/27/2016 Free T4 Nbu155 FREE T4 1.69 ng/dL 11/23/2015 Tsh Ord6 hTSH II 0.08 uIU/mL 11/23/2015 Lipid Ord30 CHOL 185 mg/dL 08/21/2015 Lipid Ord30 HDL 50.0 mg/dl 08/21/2015 Lipid Ord30 TRIG 88 mg/dL 08/21/2015 Lipid Ord30 LDL 117 mg/dL 08/21/2015 Lipid Ord30 C/HDL 3.7 Ratio 08/21/2015 Comp Metabolic Vnq387 NA 139 mEq/L 08/21/2015 Comp Metabolic Vxf717 K 4.3 mEq/L 08/21/2015 Comp Metabolic Pht210 CL 102 mEq/L 08/21/2015 Comp Metabolic Yko859 CO2 27.0 mEq/L 08/21/2015 Comp Metabolic Wlq178 AN ION GAP 14 08/21/2015 Comp Metabolic Uww848 GL UCOSE 89 mg/dL 08/21/2015 Comp Metabolic Ofh849 Cr eat 0.7 mg/dL 08/21/2015 Comp Metabolic Yxk765 eG FR 85 ml/min/1.73m2 08/21 Comp Metabolic Vra097 BUN 14 mg/dL 08/21/2015 Comp Metabolic Not740 B/ C Ratio 19.7 Ratio 08/21/2015 Comp Metabolic Ggv721 CA LCIUM 9.5 mg/dL 08/21/2015 Comp Metabolic Ycm778 AL K PHOS 123 U/L 08/21/2015 Comp Metabolic Mkl426 T(SGOT) 13 U/L 08/21/2015 Comp Metabolic Stx844 AL T(SGPT) 10 U/L 08/21/2015 Comp Metabolic Yni574 BI LI T 0.4 mg/dL 08/21/2015 Comp Metabolic Dqb413 AL BUMIN 4.1 g/dL 08/21/2015 Comp Metabolic Utw742 TP RO 6.8 g/dL 08/21/2015 Comp Metabolic Glk131 GL OB 2.7 g/dL 08/21/2015 Comp Metabolic Nyn560 A/ G Ratio 1.5 Ratio 08/21/2015 Comp Metabolic Qxm314 Os mo 277 mOsmo 08/21/2015 Free T4 Jok674 FREE T4 1.78 ng/dL 08/21/2015 Tsh Ord6 [...] Ord2 RDW 13.9 % 08/21/2015 Quick Strep Hgj0051 Quic k Strep Negative 07/08/2015 Tsh Ord6 hTSH II 0.04 uIU/mL 05/20/2015 Free T4 Qmc979 FREE T4 1.50 ng/dL 05/20/2015 Review of [...] clear 04/19/2017 None Full Exam - General 1995 Ears/Nose/Throat [...] Procedure Codes Date DESTRUCT PREMALG LESION CPT-4: 39791 01/19/2018 URINALYSIS NONAUTO W /O SCOPE CPT-4: 79210 09/12/2017 TRIAMCINOLONE ACET I [place] NOS CPT-4: J3301 06/14/2017 THER/PROPH/DIAG INJ SC/IM CPT-4: 12680 06/14/2017 PRESCRIP TRANSMIT A ERX SY CPT-4: G8553 06/14/2017 TRIAMCINOLONE ACET I [place] NOS CPT-4: J3301 03/27/2017 THER/PROPH/DIAG INJ SC/IM CPT-4: 09616 12/07/2016 TRIAMCINOLONE ACET I [place] NOS CPT-4: J3301 12/07/2016 THER/PROPH/DIAG INJ SC/IM CPT-4: 60475 11/28/2016 TRIAMCINOLONE ACET I [place] NOS CPT-4: J3301 11/28/2016 Vital Signs Date Vital 11/21/2018 Blood Pressure 1: 120/64 Code: 8480-6 Heart Rate 1: 64 bpm 10/30/2018 Blood Pressure 1: 144/70 Code: 8480-6 BMI: 37.0 Code: 63754-8 Heart Rate 1: 76 bpm Height: 5'6" SpO2: 96% Weight: 229 lbs 06/28/2018 Blood Pressure 1: 110/66 Code: 8480-6 BMI: 37.1 Code: 90338-7 Heart Rate 1: 73 bpm Height: 5'6" SpO2: 98% Weight: 230 lbs 04/04/2018 Blood Pressure 1: 128/76 Code: 8480-6 BMI: 37.9 Code: 37560-6 Heart Rate 1: 86 bpm Height: 5'6" SpO2: 98% Weight: 235 lbs 01/19/2018 Blood Pressure 1: 122/68 Code: 8480-6 Heart Rate 1: 78 bpm Height: 5'6" SpO2: 97% Weight: 01/05/2018 Blood Pressure 1: 138/78 Code: 8480-6 BMI: 38.4 Code: 34056-3 Heart Rate 1: 73 bpm Height: 5'6" SpO2: 95% Weight: 238 lbs 11/29/2017 Blood Pressure 1: 138/80 Code: 8480-6 BMI: 38.7 Code: 54658-4 Heart Rate 1: 71 bpm Height: 5'6" SpO2: 97% Weight: 240 lbs 10/25/2017 Blood Pressure 1: 136/72 Code: 8480-6 BMI: 38.7 Code: 33000-8 Heart Rate 1: 92 bpm Height: 5'6" SpO2: 98% Weight: 240 lbs 09/12/2017 Blood Pressure 1: 132/68 Code: 8480-6 BMI: 39.7 Code: 92256-3 Heart Rate 1: 76 bpm Height: 5'6" SpO2: 98% Weight: 246 lbs 06/14/2017 Blood Pressure 1: 130/80 Code: 8480-6 BMI: 39.4 Code: 55064-5 Heart Rate 1: 73 bpm Height: 5'6" SpO2: 95% Temperature: 36.9 (C ) / 98.5 (F) Weight: 244 lbs 05/10/2017 Blood Pressure 1: 128/68 Code: 8480-6 BMI: 38.7 Code: 30024-1 Heart Rate 1: 69 bpm Height: 5'6" SpO2: 97% Weight: 240 lbs 04/19/2017 Blood Pressure 1: 138/74 Code: 8480-6 BMI: 38.7 Code: 01096-9 Heart Rate 1: 73 bpm Height: 5'6" SpO2: 96% Weight: 240 lbs 03/27/2017 Blood Pressure 1: 142/84 Code: 8480-6 BMI: 38.7 Code: 05958-0 Heart Rate 1: 69 bpm Height: 5'6" SpO2: 97% Weight: 240 lbs 01/26/2017 Blood Pressure 1: 136/68 Code: 8480-6 Heart Rate 1: 64 bpm Height: 5'6" SpO2: 96% Weight: 12/07/2016 Blood Pressure 1: 130/72 Code: 8480-6 BMI: 39.7 Code: 53559-2 Heart Rate 1: 73 bpm Height: 5'6" SpO2: 93% Temperature: 36.8 (C ) / 98.3 (F) Weight: 246 lbs 11/28/2016 Blood Pressure 1: 138/60 Code: 8480-6 BMI: 39.7 Code: 18233-2 Heart Rate 1: 81 bpm Height: 5'6" SpO2: 97% Weight: 246 lbs 11/15/2016 Blood Pressure 1: 134/78 Code: 8480-6 BMI: 39.7 Code: 80977-4 Heart Rate 1: 75 bpm Height: 5'6" SpO2: 93% Temperature: 36.8 (C ) / 98.2 (F) Weight: 246 lbs 10/17/2016 Blood Pressure 1: 120/64 Code: 8480-6 BMI: 38.4 Code: 82139-4 Heart Rate 1: 69 bpm Height: 5'6" SpO2: 98% Temperature: 37.2 (C ) / 98.9 (F) Weight: 238 lbs 09/28/2016 Blood Pressure 1: 158/76 Code: 8480-6 BMI: 39.4 Code: 61988-3 Heart Rate 1: 71 bpm Height: 5'6" SpO2: 97% Weight: 244 lbs 06/29/2016 Blood Pressure 1: 124/60 Code: 8480-6 BMI: 38.7 Code: 53568-4 Heart Rate 1: 71 bpm Height: 5'6" SpO2: 98% Weight: 240 lbs 06/01/2016 Blood Pressure 1: 120/62 Code: 8480-6 BMI: 38.6 Code: 57501-4 Heart Rate 1: 76 bpm Height: 5'6" SpO2: 98% Weight: 239 lbs 05/11/2016 Blood Pressure 1: 140/80 Code: 8480-6 BMI: 38.1 Code: 67817-2 Heart Rate 1: 88 bpm Height: 5'6" SpO2: 97% Weight: 236 lbs 04/05/2016 Blood Pressure 1: 142/80 Code: 8480-6 BMI: 38.4 Code: 00209-6 Heart Rate 1: 96 bpm Height: 5'6" SpO2: 98% Weight: 238 lbs 04/01/2016 Blood Pressure 1: 136/88 Code: 8480-6 BMI: 39.2 Code: 38710-9 Heart Rate 1: 86 bpm Height: 5'6" SpO2: 96% Weight: 243 lbs 01/26/2016 Blood Pressure 1: 124/76 Code: 8480-6 BMI: 39.2 Code: 49228-7 Heart Rate 1: 76 bpm Height: 5'6" SpO2: 97% Weight: 243 lbs 12/21/2015 Blood Pressure 1: 120/64 Code: 8480-6 BMI: 37.0 Code: 16520-3 Heart Rate 1: 98 bpm Height: 5'6" SpO2: 97% Weight: 229 lbs 10/12/2015 Blood Pressure 1: 150/64 Code: 8480-6 BMI: 37.4 Code: 41798-4 Heart Rate 1: 70 bpm Height: 5'6" SpO2: 94% Weight: 232 lbs 08/24/2015 Blood Pressure 1: 128/74 Code: 8480-6 BMI: 36.8 Code: 05923-3 Heart Rate 1: 88 bpm Height: 5'6" SpO2: 94% Temperature: 36.8 (C ) / 98.3 (F) Weight: 228 lbs 06/01/2015 Blood Pressure 1: 134/68 Code: 8480-6 BMI: 36.0 Code: 83380-6 Heart Rate 1: 70 bpm Height: 5'6" SpO2: 98% Weight: 223 lbs 05/21/2015 Blood Pressure 1: 126/72 Code: 8480-6 BMI: 35.2 Code: 04352-8 Heart Rate 1: 63 bpm Height: 5'6" SpO2: 95% Weight: 218 lbs 5 oz 03/26/2015 Blood Pressure 1: 140/62 Code: 8480-6 BMI: 35.3 Code: 12812-0 Heart Rate 1: 68 bpm Height: 5'6" Weight: 219 lbs 03/11/2015 Blood Pressure 1: 130/80 Code: 8480-6 BMI: 34.9 Code: 28907-7 Heart Rate 1: 76 bpm Height: 5'6" Temperature: 37.1 (C ) / 98.7 (F) Weight: 216 lbs 12/11/2014 Blood Pressure 1: 134/62 Code: 8480-6 BMI: 34.2 Code: 31379-5 Heart Rate 1: 72 bpm Height: 5'6" Weight: 212 lbs 09/18/2014 Blood Pressure 1: 148/80 Code: 8480-6 BMI: 34.7 Code: 40156-0 Heart Rate 1: 68 bpm Height: 5'6" Weight: 215 lbs 07/31/2014 Blood Pressure 1: 124/72 Code: 8480-6 BMI: 36.2 Code: 01150-3 Heart Rate 1: 68 bpm Height: 5'6" [...] Severity mi ld 09/28/2016 None hypothyroid [employer] jamee 09/28/2016 None hypothyroid Onset and Resolution [...] Severity mi ld 06/01/2016 None hypothyroid [employer] jamee 06/01/2016 None hypothyroid Onset and Resolution [...] and Resolution resolved 04/05/2016 None 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/05/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 None hypothyroid Onset and Resolution [...] a ssociated factors 10/12/2015 None 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 P ATIENT, LEVEL IV Diagnosis: Essential (primary) hypertension[ICD10: I10] Diagnosis: Hypothyroidism, unspecified[ICD10: E03.9] Diagnosis: Low back pain[ICD10: M54.5] Lynn Finn MD, [facility] CPT- 4: 72728 10/30/2018 ([id number]) 67862 EST. P ATIENT, LEVEL III Diagnosis: Acute recurrent maxillary sinusitis[ICD10: J01.01] Diagnosis: Other mucopurulent conjunctivitis, left eye[ICD10: H10.022] Diagnosis: Other allergic rhinitis[ICD10: J30.89] Lynn Finn MD, [facility] CPT-4: 92715 06/28/2018 01803 EST. PATIENT, LEVEL IV Diagnosis: Essential (primary) hypertension[ICD10: I10] Diagnosis: Other specified hypothyroidism[ICD10: E03.8] Diagnosis: Other specified anemias[ICD10: D64.89] Diagnosis: Localized edema[ICD10: R60.0] Mishel Finn MD, [facility] CPT-4: 12252 04/04/2018 ([id number]) 24328 EST. P ATIENT, LEVEL III Diagnosis: Mild persistent asthma, uncomplicated[ICD10: J45.30] Diagnosis: Actinic keratosis[ICD10: L57.0] Lynn Finn MD, [facility] CPT- 4: 75395 01/05/2018 ([id number]) Miscellaneou s no charge Diagnosis: Essential (primary) hypertension[ICD10: I10] Damari Finn MD, [facility] CPT-4: 92999 12/12/2017 [id number] EST. PATIENT, LEVEL III Diagnosis: Essential (primary) hypertension[ICD10: I10] Diagnosis: Atrophy of thyroid (acquired)[ICD10: E03.4] Diagnosis: Low back pain[ICD10: M54.5] Mishel Finn MD, [facility] CPT-4: 62891 11/29/2017 39177 EST. PATIENT, LEVEL III Diagnosis: Pain in left hip[ICD10: M25.552] Mishel Finn MD, [facility] CPT-4: 19879 10/25/2017 79915 EST. PATIENT, LEVEL IV Diagnosis: Localized edema[ICD10: R60.0] Mishel Finn MD, [facility] CPT-4: 95098 09/12/2017 17880 EST. PATIENT, LEVEL IV Diagnosis: Mild persistent asthma with (acute) exacerbation[ICD10: J45.31] Mishel Finn MD, [facility] CPT-4: 58392 06/14/2017 86558 EST. PATIENT, LEVEL III Diagnosis: Localized edema[ICD10: R60.0] Diagnosis: Mild persistent asthma, uncomplicated[ICD10: J45.30] Mishel Finn MD, [facility] CPT-4: 90082 05/10/2017 77552 EST. PATIENT, LEVEL III Diagnosis: Mild persistent asthma with (acute) exacerbation[ICD10: J45.31] Mishel Finn MD, [facility] CPT-4: 43255 04/19/2017 ([id number]) 10595 EST. P ATIENT, LEVEL IV Diagnosis: Contusion of left wrist, initial encounter[ICD10: S60.212A] Diagnosis: Hypothyroidism, unspecified[ICD10: E03.9] Diagnosis: Mild persistent asthma with (acute) exacerbation[ICD10: J45.31] Diagnosis: Low back pain[ICD10: M54.5] Lynn Finn MD, [facility] CPT- 4: 93707 03/27/2017 ([id number]) 55073 EST. P ATIENT, LEVEL IV Diagnosis: Essential (primary) hypertension[ICD10: I10] Diagnosis: Atrophy of thyroid (acquired)[ICD10: E03.4] Diagnosis: Low back pain[ICD10: M54.5] Damari Finn MD, [facility] CPT-4: 62985 01/26/2017 73673 EST. PATIENT, LEVEL III Diagnosis: Other allergic rhinitis[ICD10: J30.89] Diagnosis: Mild persistent asthma with (acute) exacerbation[ICD10: J45.31] Mishel Finn MD, [facility] CPT-4: 49755 12/07/2016 63497 EST. PATIENT, LEVEL III Diagnosis: Mild persistent asthma with (acute) exacerbation[ICD10: J45.31] Mishel Finn MD, [facility] CPT-4: 70356 11/28/2016 78358 EST. PATIENT, LEVEL III Diagnosis: Mild persistent asthma with (acute) exacerbation[ICD10: J45.31] Diagnosis: Acute bronchitis due to other specified organisms[ICD10: J20.8] Mishel Finn MD, [facility] CPT-4: 44920 11/15/2016 19042 EST. PATIENT, LEVEL IV Diagnosis: Other acute sinusitis[ICD10: J01.80] Diagnosis: Other allergic rhinitis[ICD10: J30.89] Diagnosis: Mild persistent asthma with (acute) exacerbation[ICD10: J45.31] Mishel iFnn MD, [facility] CPT-4: 77858 10/17/2016 ([id number]) 84187 EST. P ATIENT, LEVEL IV Diagnosis: Essential (primary) hypertension[ICD10: I10] Diagnosis: Low back pain[ICD10: M54.5] Damari Finn MD, [facility] CPT-4: 45137 09/28/2016 17142 EST. PATIENT, LEVEL III Diagnosis: Tinea barbae and tinea capitis[ICD10: B35.0] Diagnosis: Other specified hypothyroidism[ICD10: E03.8] Mishel Finn MD, [facility] CPT-4: 72387 06/29/2016 ([id number]) 59716 EST. P ATIENT, LEVEL IV Diagnosis: Essential (primary) hypertension[ICD10: I10] Diagnosis: Atrophy of thyroid (acquired)[ICD10: E03.4] Diagnosis: Rash and other nonspecific skin eruption[ICD10: R21] Damari Finn MD, [facility] CPT-4: 18976 06/01/2016 ([id number]) 88256 EST. P ATIENT, LEVEL III Diagnosis: Cellulitis of groin[ICD10: L03.314] Damari Finn MD, [facility] CPT- 4: 32600 05/11/2016 ([id number]) 41831 EST. P ATIENT, LEVEL IV Diagnosis: Hypothyroidism, unspecified[ICD10: E03.9] Diagnosis: Candidiasis of vulva and vagina[ICD10: B37.3] Diagnosis: Essential (primary) hypertension[ICD10: I10] Diagnosis: Low back pain[ICD10: M54.5] Lynn Finn MD, [facility] CPT- 4: 46831 04/05/2016 83977 EST. PATIENT, LEVEL III Diagnosis: Other acute sinusitis[ICD10: J01.80] Diagnosis: Rash and other nonspecific skin eruption[ICD10: R21] Mishel Finn MD, [facility] CPT-4: 49126 04/01/2016 ([id number]) 71763 EST. P ATIENT, LEVEL IV Diagnosis: Essential (primary) hypertension[ICD10: I10] Diagnosis: Hypothyroidism, unspecified[ICD10: E03.9] Diagnosis: Low back pain[ICD10: M54.5] Diagnosis: Other obesity due to excess calories[ICD10: E66.09] Lynn Finn MD, [facility] CPT-4: 80322 01/26/2016 19189 EST. PATIENT, LEVEL IV Diagnosis: Essential (primary) hypertension[ICD10: I10] Diagnosis: Cutaneous abscess of face[ICD10: L02.01] Mishel Finn MD, [facility] CPT-4: 30724 12/21/2015 ([id number]) 60654 EST. P ATIENT, LEVEL III Diagnosis: Cutaneous abscess of groin[ICD10: L02.214] Diagnosis: Hypothyroidism, unspecified[ICD10: E03.9] Lynn Finn MD, [facility] CPT-4: 57606 10/12/2015 ([id number]) 51519 EST. P ATIENT, LEVEL III Diagnosis: Essential (primary) hypertension[ICD10: I10] Diagnosis: Hypothyroidism, unspecified[ICD10: E03.9] Diagnosis: Allergic rhinitis, unspecified[ICD10: J30.9] Lynn Finn MD, [facility] CPT-4: 95295 08/24/2015 ([id number]) 02632 EST. P ATIENT, LEVEL III Diagnosis: Skin infection[ICD9: 686.9] Damari Finn MD, [facility] CPT-4: 75206 06/01/2015 ([id number]) 44000 EST. P ATIENT, LEVEL III Diagnosis: Hypothyroidism[ICD9: 244.9] Diagnosis: ESSENTIAL HYPERTENSION[ICD9: 401.9] Damari Finn MD, [facility] CPT- 4: 32900 05/21/2015 ([id number]) [id number] EST. P ATIENT, LEVEL III Diagnosis: Hypothyroidism[ICD9: 244.9] Diagnosis: Fingernail abnormalities[ICD9: 703.8] Lynn Finn MD, [facility] CPT-4: 94410 03/26/2015 ([id number]) [id number] EST. P ATIENT, LEVEL II Diagnosis: Hypothyroidism[ICD9: 244.9] Maritza Finn MD, [facility] CPT-4: 92224 03/11/2015 ([id number]) 45539 EST. P ATIENT, LEVEL IV Diagnosis: ESSENTIAL HYPERTENSION[ICD9: 401.9] Diagnosis: Low back pain[ICD9: 724.2] Diagnosis: Hypothyroidism[ICD9: 244.9] [facility] CPT-4: 97494 12/11/2014 [id number] EST. P ATIENT, LEVEL IV Diagnosis: Hidradenitis suppurativa[ICD9: 705.83] Diagnosis: ESSENTIAL HYPERTENSION[ICD9: 401.9] Diagnosis: Low back pain[ICD9: 724.2] Diagnosis: Lumbar spinal stenosis[ICD9: 724.02] Diagnosis: HYPOTHYROIDISM[ICD9: 244.9] [facility] CPT-4: 52340 09/18/2014 Office outpatient ne w 30 minutes Diagnosis: ESSENTIAL HYPERTENSION[ICD9: 401.9] Diagnosis: Hypothyroidism[ICD9: 244.9] Diagnosis: Low back pain[ICD9: 724.2] [facility] CPT- 4: 09530 07/31/2014 Plan of Care Planned Activity Notes C odes Status Date Patient Education: Patient Medication Summary Completed 11/21/2018 [...] as indicated 10/30/2018 Appointment: Lynn Arenas WPtel: [address] [place], [place] [phone] (30 min) Complex 10/30/2018 Patient Education: Patient Medication Summary Completed 10/30/2018 Patient Education: Hypertension Completed 10/30/2018 Patient Education: Back Pain Completed 10/30/2018 Appointment: Lynn Arenas WPtel: [address] [place], [place] [phone] (30 min) Complex 10/26/2018 Patient Education: Patient Medication Summary Completed 10/23/2018 Appointment: Lynn Arenas WPtel: [address] [place], [place] [phone] (15 min) Moderate 10/19/2018 Appointment: WayneJatindery WPtel: [phone] [facility] (15 min) Moderate 09/19/2018 Visit Plan: Sinusitis [...] daily. 06/28/2018 Appointment: Lynn Arenas WPtel: [phone] [phone] (30 min) Complex 06/28/2018 Patient Education: Patient [...] monitor. 04/04/2018 Appointment: Mishel Balderrama WPtel: [facility] [place] (15 min) Moderate 04/04/2018 Patient Education: Patient Medication Summary Completed 04/04/2018 Visit Plan: Wound Instructions - Pt was instructed to keep the wound clean, wash with antibacterial soap, use triple antibiotic ointment, call if redness, pustular drainage, or any other acute concerns. 01/19/2018 Appointment: Lynn Arenas WPtel: [facility] [phone] (30 min) Complex 01/19/2018 Patient Education: Patient [...] acute concerns. 01/05/2018 Appointment: Lynn Arenas WPtel: [phone] [phone] [place] (30 min) Complex 01/05/2018 Patient Education: [...] not improve. 11/29/2017 Appointment: Mishel Balderrama WPtel: [facility] [place] [place] (30 min) Complex 11/29/2017 Patient Education: [...] not improve. 10/25/2017 Appointment: Mishel Balderrama WPtel: [facility] [place] [place] (30 min) Complex 10/25/2017 Patient Education: [...] edema. 09/12/2017 Appointment: Mishel Balderrama WPtel: [phone] [place] (30 min) Complex 09/12/2017 Patient Education: Patient Medication Summary Completed 09/12/2017 Appointment: Lynn Arenas WPtel: [phone] [phone] [place] (30 min) Complex 06/27/2017 Visit [...] changes. 06/14/2017 Appointment: Mishel Balderrama WPtel: [phone] [place] [place] (15 min) Moderate 06/14/2017 Patient Education: [...] changes 05/10/2017 Appointment: Mishel Balderrama WPtel: [phone] [place] [place] (15 min) Moderate 05/10/2017 Patient Education: [...] changes. 04/19/2017 Appointment: Mishel Balderrama WPtel: [phone] [place] [place] (15 min) Moderate 04/19/2017 Patient Education: [...] on previous levels of control. Low back iiuz-bireuvf-ayijcn tramadol for prn use 03/27/2017 Appointment: Lynn Arenas WPtel: [phone] [phone] (30 min) Complex 03/27/2017 Patient Education: Patient [...] not improve. 01/26/2017 Appointment: [phone] (15 min) Moderate 01/26/2017 Patient Education: Patient [...] or concerns. 12/07/2016 Appointment: Mishel Balderrama WPtel: [facility]5 [facility] (15 min) Moderate 12/07/2016 Patient Education: Patient [...] changes. 11/28/2016 Appointment: Mishel Balderrama WPtel: [phone] [facility] [place] (15 min) Moderate 11/28/2016 Patient Education: Patient Medication Summary Completed 11/28/2016 Appointment: Mishel Balderrama WPtel: [facility]5 [facility] (15 min) Moderate 11/24/2016 Visit Plan: [...] changes. 11/15/2016 Appointment: Mishel Balderrama WPtel: [phone] [place] (30 min) Complex 11/15/2016 Patient Education: Patient [...] changes. 10/17/2016 Appointment: Mishel Balderrama WPtel: [phone] [place] (30 min) Complex 10/17/2016 Patient Education: Patient [...] tylenol 09/28/2016 Appointment: [facility] Finn [facility]el[phone] [place] (15 min) Moderate 09/28/2016 Patient Education: [...] of control. 06/29/2016 Appointment: Lynn Arenas WPtel: [phone] [phone] [place] [...] for fluconazole 06/01/2016 Appointment: Damari Finn WPtel: [phone] [facility] [place] (15 min) Moderate 06/01/2016 Patient Education: Patient Medication Summary Completed 06/01/2016 Patient Education: Obesity Completed 06/01/2016 Visit Plan: Cellulitis - continue w ith oral antibiotics as previously directed, return to clinic as previously directed, call for acute change in symptoms, worsening redness, warmth, discharge. 05/11/2016 Appointment: AakashDamari sen [facility]Ptel[phone] (15 min) Moderate 05/11/2016 Patient Education: Patient [...] any concerns. 04/01/2016 Appointment: Lynn Arenas WPtel: [phone] [phone] [place] (30 min) Complex 04/01/2016 Patient Education: Patient Medication Summary Completed 04/01/2016 Patient Education: Obesity Completed 04/01/2016 Appointment: Lynn Arenas WPtel: [address] [place], [place] [phone] (30 min) Complex 03/29/2016 Visit Plan: Hypertension [...] levels of control. Low back pain-refill tramadol Gyfoz-xhkvnatsdq-thbwtelr resolved 01/26/2016 Appointment: Lynn Arenas WPtel: [facility]5 [phone] (30 min) Complex 01/26/2016 Patient Education: Patient Medication Summary Completed 01/26/2016 Patient Education: Obesity Completed 01/26/2016 Care Plan: BMI Above normal followup RADHA F-MGMT EDUC & TRAIN 1 PT Pending 01/26/2016 Care Plan: Referral Order SNOMED-CT : [id number] Pending 01/07/2016 Appointment: Lynn Arenas WPtel: [facility]5 [phone] (15 min) Moderate 12/24/2015 Visit Plan: [...] Medication Summary Completed 12/21/2015 Care Plan: Miracle MAURA RTS Pending 12/21/2015 Visit Plan: cellulitis/abscess of [...] nor improving. 06/01/2015 Appointment: Damari Finn WPtel: [facility] (15 min) Moderate 06/01/2015 Patient Education: Patient [...] tramadol 12/11/2014 Appointment: Damari Finn WPtel: [facility] [facility] follow up 12/11/2014 Patient Education: Patient Medication Summary Completed 12/11/2014 Patient Education: Hypertension Completed 12/11/2014 Appointment: Damari Finn WPtel: [phone] [facility] [facility] follow up 11/27/2014 Visit Plan: [...] to get her back MRI done at [facility] in [place] as that is where her specialist will be once we get her an appt with one of the local Neurosurgeons. 09/18/2014 Appointment: Damari Finn WPtel: [phone] [facility] Follow up 09/18/2014 Patient Education: Patient Medication [...] as scheduled 07/31/2014 Appointment: Lynn Arenas WPtel: [address] [place], [place] [phone] New Patient 07/31/2014 Patient Education: Patient Medication [...] . 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 Low back lvhz-usrdnpk-azdinw tramadol for prn use claritin or zyrtec [...] . 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 Declined Procedure: (72895) FLU VAC NO PRSV 4 JUSTYNA 3 YRS+; Declined Reason: refused Physical therapy at [facility] . Hypertension - well controlled [...] levels of control. Low back pain-refill tramadol Pgaac-agrsogaimh-amzdmrke resolved . Hypertension - wel l controlled [...] to get her back MRI done at [facility] in [place] as that is where her specialist will [...]
--- OUTSIDE RECORDS SUMMARY | 2020-02-20 19:25 | XMS REPORT | CCD ---
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 Unknown Has never used illegal drugs 014 Allergies, Adverse Reactions, Alerts Substance Reaction Codes Entered Date Inactivated Date Status * NO KNOWN FOOD BEVERLY RGIES Unknown 07/31/2014 No Inactive Date Active bactrim hives, rash RxNorm: 467271 04/05/2016 No Inactive Date Active Past Medical [...] Instructions levothyroxine 137 mc g tablet RxNorm: 471162 1 Tablet(s) PO daily TAKE ONE TABLET BY MOUTH DAILY ON AN EMPTY STOMACH 10/30/2018 01/22/2020 Active ProAir HFA 90 mcg/ac tuation aerosol inhaler RxNorm: 2344034 1-2 Puff(s) INH Q4 P RN INHALE 1 TO 2 PUFFS FOUR TIMES A DAY NEEDED FOR ASTHMA 10/30/2018 01/27/2019 Active tramadol 50 mg tablet RxNorm: 308565 1 Tablet(s) PO Q4 PRN as needed for pain 10/29/2018 12/07/2018 Ac tive lorazepam 1 mg tablet RxNorm: 092533 Tablet(s) TAKE TWO TABLETS BY MOUTH AT B EDTIME NEEDED FOR INSOMNIA AND ONE TABLET DAILY NEEDED ANXIETY 09/06/2018 11/04/2018 Active levothyroxine 125 mc g tablet RxNorm: 907033 1 Tablet(s) PO daily TAKE ONE TABLET BY MOUTH DAILY ON AN EMPTY STOMACH 09/06/2018 10/29/2018 Inactive tramadol 50 mg tablet RxNorm: 694384 1 Tablet(s) PO Q4 PRN as needed for pain 09/06/2018 10/15/2018 In active tramadol 50 mg tablet RxNorm: 455870 1 Tablet(s) PO Q4 PRN as needed for pain 07/06/2018 08/14/2018 In active ciprofloxacin 0.3 % eye drops RxNorm: 422205 2 Drop(s) ophthalmic (eye) TID 06/28/2018 07/07/2018 In active lorazepam 1 mg tablet RxNorm: 148558 Tablet(s) TAKE TWO TABLETS BY MOUTH AT B EDTIME NEEDED FOR INSOMNIA AND ONE TABLET DAILY NEEDED ANXIETY 06/28/2018 08/26/2018 Inactive doxycycline hyclate 100 mg tablet RxNorm: 3869915 1 Tablet(s) PO BID 06/28/2018 07/04/2018 Inactive tramadol 50 mg tablet RxNorm: 877081 1 Tablet(s) PO Q4 PRN as needed for pain 06/13/2018 07/05/2018 In active lorazepam 1 mg tablet RxNorm: 513423 Tablet(s) TAKE TWO TABLETS BY MOUTH AT B EDTIME NEEDED FOR INSOMNIA AND ONE TABLET DAILY NEEDED ANXIETY 05/23/2018 06/27/2018 Inactive tramadol 50 mg tablet RxNorm: 269615 1 Tablet(s) PO Q4 PRN as needed for pain 05/23/2018 06/12/2018 In active levothyroxine 125 mc g tablet RxNorm: 173804 Tablet(s) TAKE ONE TA BLET BY MOUTH DAILY ON AN EMPTY STOMACH 05/23/2018 09/05/2018 Inactive tramadol 50 mg tablet RxNorm: 107872 1 Tablet(s) PO Q4 PRN as needed for pain 05/17/2018 05/22/2018 In active levothyroxine 125 mc g tablet RxNorm: 181735 TAKE ONE TABLET BY [facility] DAILY 05/15/2018 06/27/2018 In active levothyroxine 125 mc g tablet RxNorm: 137910 TAKE ONE TABLET BY [facility] DAILY 05/15/2018 06/27/2018 In active tramadol 50 mg tablet RxNorm: 249375 1 Tablet(s) PO Q4 PRN as needed for pain 04/30/2018 05/16/2018 In active Advair Diskus 100 mc g-50 mcg/dose powder for inhalation RxNorm: 3278107 1 Puff(s) INH BID 04/06/2018 No Stop Date Active Symbicort 80 mcg-4.5 mcg/actuation HFA aerosol inhaler RxNorm: 5336916 2 Puff(s) INH BID 04/06/2018 No Stop Date Active Advair Diskus 250 mc g-50 mcg/dose powder for inhalation RxNorm: 7451600 1 Puff(s) INH BID 04/05/2018 09/01/2018 Inactive Zyrtec 10 mg tablet RxNorm: 9009337 1 Tablet(s) PO daily x1 week then PRN 04/05/2018 08/02/2018 In active lisinopril 20 mg-hyd rochlorothiazide 25 mg tablet RxNorm: 375452 Tablet(s) TAKE ONE TABLET BY MOUTH DAILY 04/05/2018 10/29/2018 Inactive Zyrtec 10 mg tablet RxNorm: 1024678 1 Tablet(s) PO daily 04/04/2018 05/03/2018 Inactive tramadol 50 mg tablet RxNorm: 252382 1 Tablet(s) PO Q4 PRN as needed for pain 03/13/2018 04/21/2018 In active lorazepam 1 mg tablet RxNorm: 880593 Tablet(s) TAKE TWO TABLETS BY MOUTH AT B EDTIME NEEDED FOR INSOMNIA AND ONE TABLET DAILY NEEDED ANXIETY 03/02/2018 04/30/2018 Inactive levothyroxine 125 mc g tablet RxNorm: 699754 1 Tablet(s) PO daily 02/06/2018 05/06/2018 Inactive levothyroxine 125 mc g tablet RxNorm: 889395 TAKE ONE TABLET BY MO UTH DAILY ON AN EMPTY STOMACH 02/06/2018 05/22/2018 Inactive tramadol 50 mg tablet RxNorm: 899102 1 Tablet(s) PO Q4 PRN as needed for pain 01/26/2018 03/06/2018 In active lorazepam 1 mg tablet RxNorm: 618386 Tablet(s) TAKE TWO TABLETS BY MOUTH AT B EDTIME NEEDED FOR INSOMNIA AND ONE TABLET DAILY NEEDED ANXIETY 01/23/2018 06/27/2018 Inactive Symbicort 80 mcg-4.5 mcg/actuation HFA aerosol inhaler RxNorm: 9326982 INH 01/05/2018 06/27/2018 In active tramadol 50 mg tablet RxNorm: 457125 1 Tablet(s) PO Q4 PRN as needed for pain 01/04/2018 01/25/2018 In active Advair Diskus 250 mc g-50 mcg/dose powder for inhalation RxNorm: 7630909 1 Puff(s) INH BID 11/29/2017 03/28/2018 Inactive hydrochlorothiazide 12.5 mg tablet RxNorm: 774557 1 Tablet(s) PO daily 11/29/2017 12/28/2017 In active tramadol 50 mg tablet RxNorm: 619799 1 Tablet(s) PO Q4 PRN as needed for pain 11/23/2017 01/01/2018 In active tramadol 50 mg tablet RxNorm: 073063 1 Tablet(s) PO Q4 PRN as needed for pain 10/06/2017 11/14/2017 In active lorazepam 1 mg tablet RxNorm: 295379 Tablet(s) TAKE TWO TABLETS BY MOUTH AT B EDTIME NEEDED FOR INSOMNIA AND ONE TABLET DAILY NEEDED ANXIETY 09/12/2017 06/27/2018 Inactive tramadol 50 mg tablet RxNorm: 997506 1 Tablet(s) PO Q4 PRN as needed for pain 09/12/2017 10/05/2017 In active tramadol 50 mg tablet RxNorm: 148361 1 Tablet(s) PO Q4 PRN as needed for pain 08/15/2017 09/11/2017 In active tramadol 50 mg tablet RxNorm: 660139 1 Tablet(s) PO Q4 PRN as needed for pain 06/29/2017 08/07/2017 In active ProAir HFA 90 mcg/ac tuation aerosol inhaler RxNorm: 0429327 INHALE 1 TO 2 PUFFS FOUR TIMES A DAY NEEDED FOR ASTHMA 06/14/2017 11/10/2017 Inactive prednisone 20 mg tablet RxNorm: 979786 1 Tablet(s) PO BID x 2 days, then 1 pill daily x 3 days, then 1/2 pill every other day x 3 doses. 06/14/2017 09/11/2017 Inactive Kenalog 40 mg/mL madhavi pension for injection RxNorm: 3559647 1 Milliliter(s) Inj 06/14/2017 06/14/2017 In active Zyrtec 10 mg tablet RxNorm: 3505153 1 Tablet(s) PO daily 06/14/2017 07/13/2017 Inactive tramadol 50 mg tablet RxNorm: 177368 1 Tablet(s) PO Q4 PRN as needed for pain 06/08/2017 06/27/2017 In active [SAVINGS FOR UNINSURED PATIENTS -- BIN:0 13588, PCN: ASPROD1, Group: [id number], ID# [id number], Process claim through [employer], for questions: . THIS IS NOT INSURANCE.] tramadol 50 mg tablet RxNorm: 630195 1 Tablet(s) PO Q4 PRN as needed for pain 05/16/2017 06/04/2017 In active [SAVINGS FOR UNINSURED PATIENTS -- BIN:0 48984, PCN: ASPROD1, Group: [id number], ID# [id number], Process claim through [employer], for questions: . THIS IS NOT INSURANCE.] lorazepam 1 mg tablet RxNorm: 762371 Tablet(s) TAKE TWO TABLETS BY MOUTH AT B EDTIME NEEDED FOR INSOMNIA AND ONE TABLET DAILY NEEDED ANXIETY 05/16/2017 08/13/2017 Inactive Lasix 20 mg tablet RxNorm: 1 Tablet(s) PO daily 05/10/2017 05/09/2017 Inactive Lasix 20 mg tablet RxNorm: 1 Tablet(s) PO daily 05/10/2017 05/12/2017 Inactive potassium chloride E R 10 mEq tablet,extended release RxNorm: 028023 1 Tablet(s) PO daily while on the lasix 05/10/2017 05/09/2017 Inactive potassium chloride E R 10 mEq tablet,extended release RxNorm: 231084 1 Tablet(s) PO daily while on the lasix 05/10/2017 05/12/2017 Inactive prednisone 20 mg tablet RxNorm: 821229 1 Tablet(s) PO BID x 2 days, then 1 pill daily x 3 days, then 1/2 pill every other day x 3 doses. 04/19/2017 06/13/2017 Inactive Zithromax Z-Linus 250 mg tablet RxNorm: 607757 1 Tablet(s) PO UD 04/13/2017 06/28/2017 Inactive prednisone 20 mg tablet RxNorm: 200223 1 Tablet(s) PO BID 04/13/2017 04/17/2017 Inactive levothyroxine 125 mc g tablet RxNorm: 899667 1 Tablet(s) PO daily 04/11/2017 10/07/2017 Inactive tramadol 50 mg tablet RxNorm: 419598 1 Tablet(s) PO Q4 PRN as needed for pain 03/27/2017 04/15/2017 In active [SAVINGS FOR UNINSURED PATIENTS -- BIN:0 82176, PCN: ASPROD1, Group: [id number], ID# [id number], Process claim through [employer], for questions: . THIS IS NOT INSURANCE.] Kenalog 40 mg/mL madhavi pension for injection RxNorm: 7878464 1 Milliliter(s) Inj 03/27/2017 03/27/2017 In active tramadol 50 mg tablet RxNorm: 104509 1 Tablet(s) PO Q4H as needed for pain 03/09/2017 03/26/2017 In active [SAVINGS FOR UNINSURED PATIENTS -- BIN:0 82056, PCN: ASPROD1, Group: [id number], ID# [id number], Process claim through [employer], for questions: . THIS IS NOT INSURANCE.] lisinopril 20 mg-hyd rochlorothiazide 25 mg tablet RxNorm: 986332 TAKE ONE TABLET BY MOUTH DAILY 01/29/2017 11/21/2017 Inactive lorazepam 1 mg tablet RxNorm: 168310 Tablet(s) TAKE TWO TABLETS BY MOUTH AT B EDTIME NEEDED FOR INSOMNIA AND ONE TABLET DAILY NEEDED ANXIETY 01/05/2017 04/04/2017 Inactive tramadol 50 mg tablet RxNorm: 252899 1 Tablet(s) PO Q4H as needed for pain 12/07/2016 01/13/2017 In active [SAVINGS FOR UNINSURED PATIENTS -- BIN:0 66584, PCN: ASPROD1, Group: [id number], ID# [id number], Process claim through [employer], for questions: . THIS IS NOT INSURANCE.] Kenalog 40 mg/mL madhavi pension for injection RxNorm: 3562505 Milliliter(s) Inj 12/07/2016 12/07/2016 In active nystatin 100,000 uni t/mL oral suspension RxNorm: 875994 4 Milliliter(s) PO QI D 12/07/2016 12/11/2016 In active Francia-D 12 Hour 60 mg-120 mg tablet,extended release RxNorm: 088858 1 Tablet(s) PO BID 12/07/2016 01/11/2017 Inactive lorazepam 1 mg tablet RxNorm: 955644 Tablet(s) TAKE TWO TABLETS BY MOUTH AT B EDTIME AND ONE TABLET DAILY NEEDED 12/07/2016 01/04/2017 Inactive (Response to an electronic controlled substance refill request - RxReferenceNumber: [id number]) albuterol sulfate 2. 5 mg/3 mL (0.083 %) solution for nebulization RxNorm: 624236 3 Milliliter(s) INH TID 11/29/2016 11/28/2016 Inactive prednisone 10 mg tablet RxNorm: 740194 Tablet(s) PO UD 11/29/2016 12/05/2016 Inactive 6,5,4,3,2,1 doxycycline hyclate 100 mg tablet RxNorm: 334190 1 Tablet(s) PO BID 11/29/2016 12/04/2016 Inactive albuterol sulfate 2. 5 mg/3 mL (0.083 %) solution for nebulization RxNorm: 074965 3 Milliliter(s) INH TID 11/29/2016 12/03/2016 Inactive Kenalog 40 mg/mL madhavi pension for injection RxNorm: 9838035 Milliliter(s) Inj 11/28/2016 11/28/2016 In active tramadol 50 mg tablet RxNorm: 391295 1 Tablet(s) PO Q4H as needed for pain 11/15/2016 12/06/2016 In active [SAVINGS FOR UNINSURED PATIENTS -- BIN:0 02251, PCN: ASPROD1, Group: [id number], ID# [id number], Process claim through [employer], for questions: . THIS IS NOT INSURANCE.] prednisone 20 mg tablet RxNorm: 732855 2 Tablet(s) PO daily 11/15/2016 11/19/2016 Inactive Advair Diskus 100 mc g-50 mcg/dose powder for inhalation RxNorm: 3148670 1 Puff(s) INH BID 11/15/2016 06/11/2017 Inactive ProAir HFA 90 mcg/ac tuation aerosol inhaler RxNorm: 768343 INHALE 1 TO 2 PUFFS F OUR TIMES A DAY NEEDED FOR ASTHMA 11/15/2016 04/13/2017 Inactive Zithromax Z-Linus 250 mg tablet RxNorm: 725410 1 Tablet(s) PO UD 11/15/2016 11/27/2016 Inactive Zyrtec 10 mg tablet RxNorm: 8723994 1 Tablet(s) PO daily 10/17/2016 11/15/2016 Inactive Keflex 500 mg capsule RxNorm: 205029 1 Capsule(s) PO TID 10/17/2016 10/23/2016 Inactive prednisone 10 mg tablet RxNorm: 292326 Tablet(s) PO UD 10/17/2016 11/28/2016 Inactive 6,5,4,3,2,1 tramadol 50 mg tablet RxNorm: 424229 1 Tablet(s) PO Q4H as needed for pain 09/28/2016 11/06/2016 In active [SAVINGS FOR UNINSURED PATIENTS -- BIN:0 82584, PCN: ASPROD1, Group: [id number], ID# [id number], Process claim through [employer], for questions: . THIS IS NOT INSURANCE.] ProAir HFA 90 mcg/ac tuation aerosol inhaler RxNorm: 369657 INHALE 1 TO 2 PUFFS F OUR TIMES A DAY NEEDED FOR ASTHMA 09/15/2016 11/14/2016 Inactive doxycycline hyclate 100 mg tablet RxNorm: 592771 1 Tablet(s) PO BID 09/15/2016 09/24/2016 Inactive doxycycline hyclate 100 mg tablet RxNorm: 555213 1 Tablet(s) PO BID 07/29/2016 08/07/2016 Inactive tramadol 50 mg tablet RxNorm: 757158 1 Tablet(s) PO Q4H as needed for pain 07/29/2016 09/06/2016 In active [SAVINGS FOR UNINSURED PATIENTS -- BIN:0 94858, PCN: ASPROD1, Group: [id number], ID# [id number], Process claim through [employer], for questions: . THIS IS NOT INSURANCE.] lorazepam 1 mg tablet RxNorm: 389077 Tablet(s) TAKE TWO TABLETS BY MOUTH AT B EDTIME AND ONE TABLET DAILY NEEDED 07/29/2016 10/26/2016 Inactive (Response to an electronic controlled substance refill request - RxReferenceNumber: [id number]) levothyroxine 125 mc g tablet RxNorm: 325459 1 Tablet(s) PO daily 06/29/2016 06/29/2016 Inactive levothyroxine 137 mc g tablet RxNorm: 351615 1 Tablet(s) PO daily 06/29/2016 12/25/2016 Inactive ketoconazole 2 % [facility] [place] RxNorm: 131765 1 Application TOP BID 06/29/2016 07/03/2016 Inactive tramadol 50 mg tablet RxNorm: 826060 1 Tablet(s) PO Q4H as needed for pain 06/16/2016 07/25/2016 In active [SAVINGS FOR UNINSURED PATIENTS -- BIN:0 61676, PCN: ASPROD1, Group: [id number], ID# [id number], Process claim through [employer], for questions: . THIS IS NOT INSURANCE.] Bactroban 2 % topica l ointment RxNorm: 099844 APPLY TO AFFECTED ARE A(S) TWO TIMES A DAY 06/16/2016 04/16/2017 Inactive fluconazole 150 mg t ablet RxNorm: 988621 1 Tablet(s) PO daily 06/01/2016 06/05/2016 Inactive gentamicin 0.1 % top ical ointment RxNorm: 040125 1 Application TOP QID 05/12/2016 05/25/2016 In active metronidazole 500 mg tablet RxNorm: 668934 1 Tablet(s) PO TID 05/11/2016 05/24/2016 Inactive gentamicin 0.1 % top ical ointment RxNorm: 612624 1 Application TOP QID 05/11/2016 05/11/2016 In active doxycycline hyclate 100 mg tablet RxNorm: 781744 1 Tablet(s) PO BID 05/11/2016 05/24/2016 Inactive lorazepam 1 mg tablet RxNorm: 218137 Tablet(s) TAKE TWO TABLETS BY MOUTH AT B EDTIME AND ONE TABLET DAILY NEEDED 05/02/2016 07/28/2016 Inactive (Response to an electronic controlled substance refill request - RxReferenceNumber: [id number]) Diflucan 150 mg tablet RxNorm: 810049 1 Tablet(s) PO daily x5 days then 1 x we ekly x 4 weeks. 05/02/2016 04/10/2017 Inactive Diflucan 150 mg tablet RxNorm: 852161 1 Tablet(s) PO every other day 04/19/2016 04/28/2016 In active Diflucan 150 mg tablet RxNorm: 892795 1 Tablet(s) PO every other day 04/19/2016 04/18/2016 In active Diflucan 150 mg tablet RxNorm: 020905 1 Tablet(s) PO daily 04/05/2016 04/11/2016 Inactive mupirocin 2 % topica l ointment RxNorm: 467829 1 Application TOP BID 04/05/2016 05/04/2016 Inactive tramadol 50 mg tablet RxNorm: 704149 1 Tablet(s) PO Q4H as needed for pain 04/05/2016 05/14/2016 In active [SAVINGS FOR UNINSURED PATIENTS -- BIN:0 49541, PCN: ASPROD1, Group: [id number], ID# [id number], Process claim through [employer], for questions: . THIS IS NOT INSURANCE.] prednisone 10 mg tablet RxNorm: 474579 Tablet(s) PO UD 04/01/2016 09/26/2016 Inactive 6,5,4,3,2,1 levothyroxine 137 mc g tablet RxNorm: 869739 1 Tablet(s) PO daily 03/21/2016 03/20/2016 Inactive levothyroxine 137 mc g tablet RxNorm: 056473 1 Tablet(s) PO daily 03/21/2016 06/28/2016 Inactive Advair Diskus 100 mc g-50 mcg/dose powder for inhalation RxNorm: 2705318 1 Puff(s) INH BID 01/26/2016 05/24/2016 Inactive tramadol 50 mg tablet RxNorm: 346942 1 Tablet(s) PO Q4H as needed for pain 01/26/2016 03/05/2016 In active [SAVINGS FOR UNINSURED PATIENTS -- BIN:0 32552, PCN: ASPROD1, Group: [id number], ID# [id number], Process claim through [employer], for questions: . THIS IS NOT INSURANCE.] Bactroban 2 % topica l ointment RxNorm: 234745 APPLY TO AFFECTED ARE A(S) TWO TIMES A DAY 12/22/2015 12/31/2015 Inactive Bactrim DS 800 mg-16 0 mg tablet RxNorm: 426336 TAKE ONE TABLET BY [facility] TWICE A DAY 12/22/2015 04/18/2016 In active Bactrim DS 800 mg-16 0 mg tablet RxNorm: 592307 1 Tablet(s) PO BID 12/21/2015 12/30/2015 Inactive lisinopril 20 mg-hyd rochlorothiazide 25 mg tablet RxNorm: 539300 1 Tablet(s) PO daily 12/21/2015 06/17/2016 Inactive [SAVINGS FOR UNINSURED PATIENTS -- BIN:0 83270, PCN: ASPROD1, Group: [id number], ID# [id number], Process claim through [employer], for questions: . THIS IS NOT INSURANCE.] tramadol 50 mg tablet RxNorm: 308692 1 Tablet(s) PO Q4H as needed for pain 12/03/2015 01/11/2016 In active [SAVINGS FOR UNINSURED PATIENTS -- BIN:0 29348, PCN: ASPROD1, Group: [id number], ID# [id number], Process claim through [employer], for questions: . THIS IS NOT INSURANCE.] lorazepam 1 mg tablet RxNorm: 410283 Tablet(s) TAKE TWO TABLETS BY MOUTH AT B EDTIME AND ONE TABLET DAILY NEEDED 11/26/2015 06/27/2018 Inactive (Response to an electronic controlled substance refill request - RxReferenceNumber: [id number]) Bactrim DS 800 mg-16 0 mg tablet RxNorm: 392594 1 Tablet(s) PO BID 11/25/2015 12/04/2015 Inactive levothyroxine 150 mc g tablet RxNorm: 807538 1 Tablet(s) PO daily 11/25/2015 03/20/2016 Inactive Bactroban 2 % topica l ointment RxNorm: 129827 1 Application TOP BID 10/12/2015 10/21/2015 Inactive Bactrim DS 800 mg-16 0 mg tablet RxNorm: 780071 1 Tablet(s) PO BID 09/07/2015 09/06/2015 Inactive Bactrim DS 800 mg-16 0 mg tablet RxNorm: 739812 1 Tablet(s) PO BID 09/07/2015 09/16/2015 Inactive lorazepam 1 mg tablet RxNorm: 175537 Tablet(s) TAKE TWO TABLETS BY MOUTH AT B EDTIME AND ONE TABLET DAILY NEEDED 08/28/2015 11/24/2015 Inactive (Response to an electronic controlled substance refill request - RxReferenceNumber: [id number]) levothyroxine 175 mc g tablet RxNorm: 302638 1 Tablet(s) PO daily 08/24/2015 11/24/2015 Inactive tramadol 50 mg tablet RxNorm: 161760 1 Tablet(s) PO Q4H as needed for pain 08/24/2015 09/11/2017 In active [SAVINGS FOR UNINSURED PATIENTS -- BIN:0 78177, PCN: ASPROD1, Group: [id number], ID# [id number], Process claim through [employer], for questions: . THIS IS NOT INSURANCE.] lisinopril 20 mg-hyd rochlorothiazide 25 mg tablet RxNorm: 863012 1 Tablet(s) PO daily TAKE 1 TABLET BY MOUTH DAILY 08/24/2015 06/27/2018 Inactive ProAir HFA 90 mcg/ac tuation aerosol inhaler RxNorm: 524742 1-2 Puff(s) INH PRN I NHALE ONE TO TWO PUFFS BY MOUTH FOUR TIMES A DAY NEEDED FOR ASTHMA 08/24/2015 12/01/2015 In active ProAir HFA 90 mcg/ac tuation aerosol inhaler RxNorm: 2802456 INHALE ONE TO TWO PU FFS BY MOUTH FOUR TIMES A DAY NEEDED FOR ASTHMA 08/17/2015 08/23/2015 Inactive Advair Diskus 250 mc g-50 mcg/dose powder for inhalation RxNorm: 7605450 1 Puff(s) INH BID 07/20/2015 07/19/2015 Inactive Advair Diskus 250 mc g-50 mcg/dose powder for inhalation RxNorm: 7697918 1 Puff(s) INH BID 07/20/2015 11/16/2015 Inactive tramadol 50 mg tablet RxNorm: 641158 1 Tablet(s) PO Q4H as needed for pain 07/10/2015 08/17/2015 In active [SAVINGS FOR UNINSURED PATIENTS -- BIN:0 99867, PCN: ASPROD1, Group: [id number], ID# [id number], Process claim through [employer], for questions: . THIS IS NOT INSURANCE.] Zithromax Z-Linus 250 mg tablet RxNorm: 509828 1 Tablet(s) PO UD 07/10/2015 01/18/2016 Inactive Keflex 500 mg capsule RxNorm: 441000 1 Capsule(s) PO TID 06/01/2015 06/07/2015 Inactive mupirocin 2 % topica l ointment RxNorm: 477560 1 Application TOP TID 06/01/2015 06/10/2015 Inactive lisinopril 20 mg-hyd rochlorothiazide 25 mg tablet RxNorm: 903552 TAKE 1 TABLET BY MOUT H DAILY 05/30/2015 08/23/2015 Inactive lisinopril 20 mg-hyd rochlorothiazide 25 mg tablet RxNorm: 353271 1 Tablet(s) PO daily 05/29/2015 11/24/2015 Inactive [SAVINGS FOR UNINSURED PATIENTS -- BIN:0 53622, PCN: ASPROD1, Group: [id number], ID# [id number], Process claim through [employer], for questions: . THIS IS NOT INSURANCE.] lorazepam 1 mg tablet RxNorm: 825443 Tablet(s) TAKE TWO TABLETS BY MOUTH AT B EDTIME AND ONE TABLET DAILY NEEDED 04/17/2015 07/13/2015 Inactive (Response to an electronic controlled substance refill request - RxReferenceNumber: [id number]) levothyroxine 200 mc g tablet RxNorm: 466803 1 Tablet(s) PO daily 03/12/2015 08/23/2015 Inactive [SAVINGS FOR UNINSURED PATIENTS -- BIN:0 86531, PCN: ASPROD1, Group: [id number], ID# [id number], Process claim through [employer], for questions: . THIS IS NOT INSURANCE.] lisinopril 20 mg-hyd rochlorothiazide 25 mg tablet RxNorm: 099079 1 Tablet(s) PO daily 03/11/2015 05/28/2015 Inactive [SAVINGS FOR UNINSURED PATIENTS -- BIN:0 70143, PCN: ASPROD1, Group: [id number], ID# [id number], Process claim through [employer], for questions: . THIS IS NOT INSURANCE.] levothyroxine 175 mc g tablet RxNorm: 601485 1 Tablet(s) PO daily 03/09/2015 03/11/2015 Inactive recheck blood in 3 months- THIS IS CORRE CT DOSAGE levothyroxine 175 mc g tablet RxNorm: 099102 1 Tablet(s) PO daily 03/09/2015 03/08/2015 Inactive recheck blood in 3 months levothyroxine 150 mc g tablet RxNorm: 566881 1 Tablet(s) PO daily 03/09/2015 03/08/2015 Inactive recheck blood in 3 months lorazepam 1 mg tablet RxNorm: 089280 TAKE TWO TABLETS BY MOUTH AT BEDTIME AND ONE TABLET DAILY NEEDED 12/25/2014 01/22/2015 Inactive (Response to an electronic controlled substance refill request - RxReferenceNumber: [id number]) lorazepam 1 mg tablet RxNorm: 424271 Tablet(s) TAKE TWO TABLETS BY MOUTH EVER Y NIGHT AT BEDTIME AND TAKE ONE TABLET BY MOUTH DAILY NEEDED 12/23/2014 12/25/2014 Inactive (Response to an electronic controlled [place] refill request - RxReferenceNumber: [id number]) levothyroxine 150 mc g tablet RxNorm: 044062 1 Tablet(s) PO daily 12/12/2014 03/08/2015 Inactive recheck blood in 3 months Diflucan 150 mg tablet RxNorm: 243760 1 Tablet(s) PO every other day (start af ter finished with Cipro) 11/17/2014 08/23/2015 Inactive tramadol 50 mg tablet RxNorm: 914150 1 Tablet(s) PO Q4H as needed for pain 11/10/2014 12/17/2014 In active [SAVINGS FOR UNINSURED PATIENTS -- BIN:0 70251, PCN: ASPROD1, Group: [id number], ID# [id number], Process claim through [employer], for questions: . THIS IS NOT INSURANCE.] Cipro 500 mg tablet RxNorm: 623271 1 Tablet(s) PO BID 10/23/2014 10/29/2014 Inactive Flagyl 500 mg tablet RxNorm: 749497 1 Tablet(s) PO TID 10/23/2014 10/29/2014 Inactive Cipro 500 mg tablet RxNorm: 830962 1 Tablet(s) PO BID 10/23/2014 10/22/2014 Inactive Flagyl 500 mg tablet RxNorm: 598045 1 Tablet(s) PO TID 10/23/2014 10/22/2014 Inactive Diflucan 150 mg tablet RxNorm: 410099 1 Tablet(s) PO every other day (start af ter finished with Cipro) 10/23/2014 11/16/2014 Inactive lorazepam 1 mg tablet RxNorm: 943862 TAKE TWO TABLETS BY MOUTH EVERY NIGHT AT BEDTIME AND TAKE ONE TABLET BY MOUTH DAILY NEEDED 10/21/2014 10/21/2014 Inactive (Response to an electronic controlled north bstance refill request - RxReferenceNumber: [id number]) lorazepam 1 mg tablet RxNorm: 764411 TAKE TWO TABLETS BY MOUTH EVERY NIGHT AT BEDTIME AND TAKE ONE TABLET BY MOUTH DAILY NEEDED 10/21/2014 11/18/2014 Inactive (Response to an electronic controlled north bstance refill request - RxReferenceNumber: [id number]) lorazepam 1 mg tablet RxNorm: 646334 Tablet(s) TAKE TWO TABLETS BY MOUTH AT B EDTIME, ALSO TAKE ONE TABLET BY MOUTH DAILY NEEDED 10/13/2014 10/21/2014 Inactive (Res ponse to an electronic controlled substance refill request - RxReferenceNumber: [id number]) ProAir HFA 90 mcg/ac tuation aerosol inhaler RxNorm: 2743686 1-2 inhale INH QID a s needed ASTHMA 10/13/2014 12/26/2014 Inactive ProAir HFA 90 mcg/ac tuation aerosol inhaler RxNorm: 0658679 1-2 inhale INH QID a s needed ASTHMA 09/18/2014 10/12/2014 Inactive meloxicam 7.5 mg tablet RxNorm: 100868 1 Tablet(s) PO daily 09/18/2014 03/10/2015 Inactive [SAVINGS FOR UNINSURED PATIENTS -- BIN:[id number], PCN: [id number], Group: [id number], ID# [id number], Process claim through [employer], for questions: . THIS IS NOT INSURANCE.] sulfamethoxazole 800 mg-trimethoprim 160 mg tablet RxNorm: 268282 1 Tablet(s) PO BID 09/18/2014 10/07/2014 Inactive levothyroxine 175 mc g tablet RxNorm: 715222 1 Tablet(s) PO daily 09/17/2014 12/11/2014 Inactive levothyroxine 175 mc g tablet RxNorm: 162563 1 Tablet(s) PO daily 09/17/2014 09/16/2014 Inactive lorazepam 1 mg tablet RxNorm: 910652 Tablet(s) TAKE TWO TABLETS BY MOUTH AT B EDTIME, ALSO TAKE ONE TABLET BY MOUTH DAILY NEEDED 09/12/2014 10/11/2014 Inactive (Res ponse to an electronic controlled substance refill request - RxReferenceNumber: [id number]) lorazepam 1 mg tablet RxNorm: 989723 TAKE TWO TABLETS BY MOUTH AT BEDTIME, AL SO TAKE ONE TABLET BY MOUTH DAILY NEEDED 09/08/2014 09/11/2014 Inactive (Res ponse to an electronic controlled substance refill request - RxReferenceNumber: [id number]) meloxicam 7.5 mg tablet RxNorm: 990664 1 Tablet(s) PO daily 09/01/2014 09/17/2014 Inactive [SAVINGS FOR UNINSURED PATIENTS -- BIN:0 47809, PCN: ASPROD1, Group: [id number], ID# [id number], Process claim through [employer], for questions: . THIS IS NOT INSURANCE.] lisinopril 20 mg-hyd rochlorothiazide 25 mg tablet RxNorm: 603532 1 Tablet(s) PO daily 09/01/2014 12/29/2014 Inactive [SAVINGS FOR UNINSURED PATIENTS -- BIN:0 21724, PCN: ASPROD1, Group: [id number], ID# [id number], Process claim through [employer], for questions: . THIS IS NOT INSURANCE.] tramadol 50 mg tablet RxNorm: 718298 1 Tablet(s) PO Q4H as needed for pain 08/20/2014 11/07/2014 In active [SAVINGS FOR UNINSURED PATIENTS -- BIN:0 41170, PCN: ASPROD1, Group: [id number], ID# [id number], Process claim through [employer], for questions: . THIS IS NOT INSURANCE.] meloxicam 7.5 mg tablet RxNorm: 735227 1 Tablet(s) PO daily 08/14/2014 08/31/2014 Inactive [SAVINGS FOR UNINSURED PATIENTS -- BIN:0 78223, PCN: ASPROD1, Group: [id number], ID# [id number], Process claim through [employer] [place], for questions: . THIS IS NOT INSURANCE.] lorazepam 1 mg tablet RxNorm: 967766 2 Tablet(s) PO QHS and 1 tab qd PRN 08/01/2014 09/08/2014 In active [SAVINGS FOR UNINSURED PATIENTS -- BIN:0 67949, PCN: ASPROD1, Group: [id number], ID# [id number], Process claim through [employer], for questions: . THIS IS NOT INSURANCE.] levothyroxine 200 mc g tablet RxNorm: 947597 1 Tablet(s) PO daily 07/31/2014 09/16/2014 Inactive [SAVINGS FOR UNINSURED PATIENTS -- BIN:0 01110, PCN: ASPROD1, Group: [id number], ID# [id number], Process claim through [employer], for questions: . THIS IS NOT INSURANCE.] lorazepam 1 mg tablet RxNorm: 735322 2 Tablet(s) PO QHS and 1 tab qd PRN No Start Date 07/31/2014 Inactive Phenergan VC-Codeine oral RxNorm: 929486 oral No S tart Date 11/26/2017 Inactive meloxicam 7.5 mg tablet RxNorm: 006311 1 Tablet(s) PO daily No Start Date 08/13/2014 Inactive lisinopril 20 mg-hyd rochlorothiazide 25 mg tablet RxNorm: 774719 1 Tablet(s) PO daily No Start Date 08/31/2014 Inactive levothyroxine 200 mc g tablet RxNorm: 763036 1 Tablet(s) PO daily No Start Date 07/30/2014 Inactive Diflucan 150 mg tablet RxNorm: 933144 1 Tablet(s) PO every other day No Start Date 10/22/2014 Inactive Zithromax Z-Linus 250 mg tablet RxNorm: 235246 1 Tablet(s) PO UD No Start Date 07/09/2015 Inactive tramadol 50 mg tablet RxNorm: 369180 1 Tablet(s) PO Q6 as needed No Start Date 08/19/2014 Inactive Medication Administered Medication Codes Instruc tions Start Date Status Kenalog 40 mg/mL suspension for injection RxNorm: 1172106 1Milliliter 06/14/2017 N o longer Active Kenalog 40 mg/mL suspension for injection RxNorm: 6470363 1Milliliter 03/27/2017 N o longer Active Kenalog 40 mg/mL suspension for injection RxNorm: 8410845 Milliliter 12/07/2016 No longer Active Kenalog 40 mg/mL suspension for injection RxNorm: 3511330 Milliliter 11/28/2016 No longer Active Immunizations Vaccine Codes Date Status Pneumococcal CVX: 33 09/1986 completed Tetanus, Diptheria, Pertussis CVX: 113 03/11/1987 completed Tetanus/Diptheria CVX: 113 03/11/1987 completed Influenza CVX: 141 03/11 completed Assessments Condition Codes Effectiv e Dates Essential (primary) hypertension ICD -10: I10 ICD-9: 401.9 10/30/2018 Low back pain ICD-10: M54.5 ICD-9: 724.2 [...] Ord30 C/HDL 4.1 Ratio 10/24/2018 Comp Metabolic Hxy379 NA 141 mEq/L 10/24/2018 Comp Metabolic Sau391 K 3.7 mEq/L 10/24/2018 Comp Metabolic Ktr631 CL 103 mEq/L 10/24/2018 Comp Metabolic Fpn301 CO2 30.0 mEq/L 10/24/2018 Comp Metabolic Uqe119 AN ION GAP 12 10/24/2018 Comp Metabolic Fpo984 GL UCOSE 98 mg/dL 10/24/2018 Comp Metabolic Thk349 Cr eat 0.8 mg/dL 10/24/2018 Comp Metabolic Bly827 eG FR 71 ml/min/1.73m2 10/24 Comp Metabolic Jkg359 BUN 12 mg/dL 10/24/2018 Comp Metabolic Etr716 B/ C Ratio 14.5 Ratio 10/24/2018 Comp Metabolic Aue793 CA LCIUM 9.2 mg/dL 10/24/2018 Comp Metabolic Jlm165 AL K PHOS 76 U/L 10/24/2018 Comp Metabolic Pfe010 T(SGOT) 12 U/L 10/24/2018 Comp Metabolic Wtp333 AL T(SGPT) 9 U/L 10/24/2018 Comp Metabolic Jhv109 BI LI T 0.5 mg/dL 10/24/2018 Comp Metabolic Qhg223 AL BUMIN 4.3 g/dL 10/24/2018 Comp Metabolic Ren303 TP RO 6.5 g/dL 10/24/2018 Comp Metabolic Yxz884 GL OB 2.2 g/dL 10/24/2018 Comp Metabolic Mgg288 A/ G Ratio 2.0 Ratio 10/24/2018 Comp Metabolic Pst826 Os mo 281 mOsmo 10/24/2018 Free T4 Mat362 FREE T4 0.76 ng/dL 10/24/2018 Cbc With Differential Ord2 WBC 4.78 K/ul 10/24/2018 Cbc With Differential Ord2 RBC 4.30 M/ul 10/24/2018 Cbc With Differential Ord2 HGB 13.1 g/dl 10/24/2018 Cbc With Differential Ord2 Neut% 53.1 % 10/24/2018 Cbc With Differential Ord2 HCT 39.1 % 10/24/2018 Cbc With Differential Ord2 Lymph% 35.8 % 10/24/2018 Cbc With Differential Ord2 MCV 90.9 fl 10/24/2018 Cbc With Differential Ord2 [place]% 8.4 % 10/24/2018 Cbc With Differential Ord2 MCH 30.5 pg 10/24/2018 Cbc With Differential Ord2 Eos% 2.3 % 10/24/2018 Cbc With Differential Ord2 MCHC 33.5 pg 10/24/2018 Cbc With Differential Ord2 Baso% 0.4 % 10/24/2018 Cbc With Differential Ord2 PLT 229 K/ul 10/24/2018 Cbc With Differential Ord2 Neut ABS# 2.54 K/ul 10/24/2018 Cbc With Differential Ord2 RDW 14.0 % 10/24/2018 Cbc With Differential Ord2 Lymph ABS# 1.71 K/ul 10/24/2018 Cbc With Differential Ord2 [place] ABS# 0.4 K/ul 10/24/2018 Cbc With Differential Ord2 Eos ABS# 0.1 K/ul 10/24/2018 Cbc With Differential Ord2 Baso ABS# 0.0 K/ul 10/24/2018 Tsh Ord6 TSH (3rd IS) 38.11 uIU/mL 10/24/2018 Cbc With Differential Ord2 WBC 5.03 K/ul 04/04/2018 Cbc With Differential Ord2 RBC 4.06 M/ul 04/04/2018 Cbc With Differential Ord2 HGB 12.2 g/dl 04/04/2018 Cbc With Differential Ord2 Neut% 57.7 % 04/04/2018 Cbc With Differential Ord2 HCT 37.5 % 04/04/2018 Cbc With Differential Ord2 Lymph% 28.2 % 04/04/2018 Cbc With Differential Ord2 MCV 92.4 fl 04/04/2018 Cbc With Differential Ord2 MCH 30.0 pg 04/04/2018 Cbc With Differential Ord2 [place]% 10.9 % 04/04/2018 Cbc With Differential Ord2 Eos% 2.8 % 04/04/2018 Cbc With Differential Ord2 MCHC 32.5 pg 04/04/2018 Cbc With Differential Ord2 Baso% 0.4 % 04/04/2018 Cbc With Differential Ord2 PLT 221 K/ul 04/04/2018 Cbc With Differential Ord2 RDW 14.6 % 04/04/2018 Cbc With Differential Ord2 Neut ABS# 2.90 K/ul 04/04/2018 Cbc With Differential Ord2 Lymph ABS# 1.42 K/ul 04/04/2018 Cbc With Differential Ord2 [place] ABS# 0.6 K/ul 04/04/2018 Cbc With Differential Ord2 Eos ABS# 0.1 K/ul 04/04/2018 Cbc With Differential Ord2 Baso ABS# 0.0 K/ul 04/04/2018 Free T4 Uek516 FREE T4 1.25 ng/dL 04/04/2018 Tsh Ord6 TSH (3rd IS) 3.43 uIU/mL 04/04/2018 Cbc With Differential Ord2 WBC 5.13 K/ul 11/28/2017 Cbc With Differential Ord2 RBC 3.98 M/ul 11/28/2017 Cbc With Differential Ord2 HGB 12.0 g/dl 11/28/2017 Cbc With Differential Ord2 Neut% 61.1 % 11/28/2017 Cbc With Differential Ord2 HCT 36.8 % 11/28/2017 Cbc With Differential Ord2 MCV 92.5 fl 11/28/2017 Cbc With Differential Ord2 Lymph% 25.9 % 11/28/2017 Cbc With Differential Ord2 [place]% 10.1 % 11/28/2017 Cbc With Differential Ord2 MCH 30.2 pg 11/28/2017 Cbc With Differential Ord2 MCHC 32.6 pg 11/28/2017 Cbc With Differential Ord2 Eos% 2.5 % 11/28/2017 Cbc With Differential Ord2 PLT 220 K/ul 11/28/2017 Cbc With Differential Ord2 Baso% 0.4 % 11/28/2017 Cbc With Differential Ord2 Neut ABS# 3.13 K/ul 11/28/2017 Cbc With Differential Ord2 RDW 14.3 % 11/28/2017 Cbc With Differential Ord2 Lymph ABS# 1.33 K/ul 11/28/2017 Cbc With Differential Ord2 [place] ABS# 0.5 K/ul 11/28/2017 Cbc With Differential Ord2 Eos ABS# 0.1 K/ul 11/28/2017 Cbc With Differential Ord2 Baso ABS# 0.0 K/ul 11/28/2017 Free T4 Ftz080 FREE T4 1.43 ng/dL 11/28/2017 Lipid Ord30 CHOL 186 mg/dL 11/28/2017 Lipid Ord30 HDL 54.0 mg/dl 11/28/2017 Lipid Ord30 TRIG 59 mg/dL 11/28/2017 Lipid Ord30 LDL 120 mg/dL 11/28/2017 Lipid Ord30 C/HDL 3.4 Ratio 11/28/2017 Comp Metabolic Crd895 NA 141 mEq/L 11/28/2017 Comp Metabolic Fsa699 K 4.0 mEq/L 11/28/2017 Comp Metabolic Xsp250 CL 105 mEq/L 11/28/2017 Comp Metabolic Rrs483 CO2 29.0 mEq/L 11/28/2017 Comp Metabolic Eqc727 AN ION GAP 11 11/28/2017 Comp Metabolic Udo552 GL UCOSE 91 mg/dL 11/28/2017 Comp Metabolic Mjn750 Cr eat 0.8 mg/dL 11/28/2017 Comp Metabolic Qzb283 eG FR 74 ml/min/1.73m2 11/28 Comp Metabolic Ryu819 BUN 15 mg/dL 11/28/2017 Comp Metabolic Rkq863 B/ C Ratio 18.8 Ratio 11/28/2017 Comp Metabolic Csg166 CA LCIUM 8.6 mg/dL 11/28/2017 Comp Metabolic Has978 AL K PHOS 76 U/L 11/28/2017 Comp Metabolic Oir969 T(SGOT) 10 U/L 11/28/2017 Comp Metabolic Jtx446 AL T(SGPT) 8 U/L 11/28/2017 Comp Metabolic Oew885 BI LI T 0.5 mg/dL 11/28/2017 Comp Metabolic Psf427 AL BUMIN 4.0 g/dL 11/28/2017 Comp Metabolic Say824 TP RO 6.1 g/dL 11/28/2017 Comp Metabolic Buy892 GL OB 2.1 g/dL 11/28/2017 Comp Metabolic Swr627 A/ G Ratio 1.9 Ratio 11/28/2017 Comp Metabolic Lfw670 Os mo 282 mOsmo 11/28/2017 Tsh Ord6 TSH (3rd IS) 3.31 uIU/mL 11/28/2017 Tsh Ord6 hTSH II 1.45 uIU/mL 03/27/2017 Free T4 Ott025 FREE T4 1.23 ng/dL 03/27/2017 Comp Metabolic Evx935 NA 140 mEq/L 09/28/2016 Comp Metabolic Hdk057 K 3.9 mEq/L 09/28/2016 Comp Metabolic Fef389 CL 104 mEq/L 09/28/2016 Comp Metabolic Esf950 CO2 28.0 mEq/L 09/28/2016 Comp Metabolic Wre480 AN ION GAP 12 09/28/2016 Comp Metabolic Tpx045 GL UCOSE 97 mg/dL 09/28/2016 Comp Metabolic Jot223 Cr eat 0.8 mg/dL 09/28/2016 Comp Metabolic Frc180 eG FR 79 ml/min/1.73m2 09/28 Comp Metabolic Aar385 BUN 13 mg/dL 09/28/2016 Comp Metabolic Lvx737 B/ C Ratio 17.1 Ratio 09/28/2016 Comp Metabolic Gri227 CA LCIUM 8.9 mg/dL 09/28/2016 Comp Metabolic Rmr728 AL K PHOS 100 U/L 09/28/2016 Comp Metabolic Tkz376 T(SGOT) 12 U/L 09/28/2016 Comp Metabolic Thk330 AL T(SGPT) 9 U/L 09/28/2016 Comp Metabolic Enj711 BI LI T 0.4 mg/dL 09/28/2016 Comp Metabolic Luv046 AL BUMIN 4.1 g/dL 09/28/2016 Comp Metabolic Ohb759 TP RO 6.6 g/dL 09/28/2016 Comp Metabolic Hfh855 GL OB 2.5 g/dL 09/28/2016 Comp Metabolic Lpd515 A/ G Ratio 1.6 Ratio 09/28/2016 Comp Metabolic Ulp518 Os mo 279 mOsmo 09/28/2016 Lipid Ord30 CHOL 194 mg/dL 09/28/2016 Lipid Ord30 HDL 60.0 mg/dl 09/28/2016 Lipid Ord30 TRIG 71 mg/dL 09/28/2016 Lipid Ord30 LDL 120 mg/dL 09/28/2016 Lipid Ord30 C/HDL 3.2 Ratio 09/28/2016 Cbc With Differential Ord2 WBC 6.55 K/ul 09/28/2016 Cbc With Differential Ord2 RBC 4.68 M/ul 09/28/2016 Cbc With Differential Ord2 HGB 13.5 g/dl 09/28/2016 Cbc With Differential Ord2 Neut% 68.6 % 09/28/2016 Cbc With Differential Ord2 HCT 40.9 % 09/28/2016 Cbc With Differential Ord2 MCV 87.4 fl 09/28/2016 Cbc With Differential Ord2 Lymph% 21.5 % 09/28/2016 Cbc With Differential Ord2 MCH 28.8 pg 09/28/2016 Cbc With Differential Ord2 [place]% 7.2 % 09/28/2016 Cbc With Differential Ord2 Eos% 2.4 % 09/28/2016 Cbc With Differential Ord2 MCHC 33.0 pg 09/28/2016 Cbc With Differential Ord2 PLT 232 K/ul 09/28/2016 Cbc With Differential Ord2 Baso% 0.3 % 09/28/2016 Cbc With Differential Ord2 RDW 14.2 % 09/28/2016 Cbc With Differential Ord2 Neut ABS# 4.49 K/ul 09/28/2016 Cbc With Differential Ord2 Lymph ABS# 1.41 K/ul 09/28/2016 Cbc With Differential Ord2 [place] ABS# 0.5 K/ul 09/28/2016 Cbc With Differential Ord2 Eos ABS# 0.2 K/ul 09/28/2016 Cbc With Differential Ord2 Baso ABS# 0.0 K/ul 09/28/2016 Free T4 Cyz311 FREE T4 1.43 ng/dL 09/28/2016 Tsh Ord6 hTSH II 0.52 uIU/mL 09/28/2016 Tsh Ord6 hTSH II 0.47 uIU/mL 06/16/2016 Comp Metabolic Mty955 NA 139 mEq/L 06/16/2016 Comp Metabolic Sla520 K 4.3 mEq/L 06/16/2016 Comp Metabolic Vqq391 CL 105 mEq/L 06/16/2016 Comp Metabolic Qol329 CO2 30.0 mEq/L 06/16/2016 Comp Metabolic Jpr684 AN ION GAP 8 06/16/2016 Comp Metabolic Gjl638 GL UCOSE 90 mg/dL 06/16/2016 Comp Metabolic Rul510 Cr eat 0.7 mg/dL 06/16/2016 Comp Metabolic Nny150 eG FR 91 ml/min/1.73m2 06/16 Comp Metabolic Cgk084 BUN 15 mg/dL 06/16/2016 Comp Metabolic Gdu891 B/ C Ratio 22.4 Ratio 06/16/2016 Comp Metabolic Sad523 CA LCIUM 8.8 mg/dL 06/16/2016 Comp Metabolic Jnh149 AL K PHOS 79 U/L 06/16/2016 Comp Metabolic Vwt123 T(SGOT) 13 U/L 06/16/2016 Comp Metabolic Dmu397 AL T(SGPT) 11 U/L 06/16/2016 Comp Metabolic Qrv702 BI LI T 0.5 mg/dL 06/16/2016 Comp Metabolic Wwc186 AL BUMIN 3.9 g/dL 06/16/2016 Comp Metabolic Gqm093 TP RO 6.1 g/dL 06/16/2016 Comp Metabolic Xbf841 GL OB 2.2 g/dL 06/16/2016 Comp Metabolic Gpa692 A/ G Ratio 1.8 Ratio 06/16/2016 Comp Metabolic Yrx599 Os mo 278 mOsmo 06/16/2016 Lipid Ord30 CHOL 198 mg/dL 06/16/2016 Lipid Ord30 HDL 54.0 mg/dl 06/16/2016 Lipid Ord30 TRIG 58 mg/dL 06/16/2016 Lipid Ord30 LDL 132 mg/dL 06/16/2016 Lipid Ord30 C/HDL 3.7 Ratio 06/16/2016 Cbc With Differential Ord2 WBC 5.42 K/ul 06/16/2016 Cbc With Differential Ord2 RBC 4.70 M/ul 06/16/2016 Cbc With Differential Ord2 HGB 13.6 g/dl 06/16/2016 Cbc With Differential Ord2 Neut% 57.5 % 06/16/2016 Cbc With Differential Ord2 HCT 40.9 % 06/16/2016 Cbc With Differential Ord2 MCV 87.0 fl 06/16/2016 Cbc With Differential Ord2 Lymph% 31.4 % 06/16/2016 Cbc With Differential Ord2 MCH 28.9 pg 06/16/2016 Cbc With Differential Ord2 [place]% 8.1 % 06/16/2016 Cbc With Differential Ord2 [...] 1.70 K/ul 06/16/2016 Cbc With Differential Ord2 [place] ABS# 0.4 K/ul 06/16/2016 Cbc With Differential Ord2 Eos ABS# 0.2 K/ul 06/16/2016 Cbc With Differential Ord2 Baso ABS# 0.0 K/ul 06/16/2016 Free T4 Pov280 FREE T4 1.42 ng/dL 06/16/2016 Free T4 Eij389 FREE T4 1.34 ng/dL 03/04/2016 Tsh Ord6 hTSH II 0.56 uIU/mL 03/04/2016 Tsh Ord6 hTSH II 0.98 uIU/mL 01/27/2016 Free T4 Fup698 FREE T4 1.19 ng/dL 01/27/2016 Free T4 Yxg338 FREE T4 1.69 ng/dL 11/23/2015 Tsh Ord6 hTSH II 0.08 uIU/mL 11/23/2015 Lipid Ord30 CHOL 185 mg/dL 08/21/2015 Lipid Ord30 HDL 50.0 mg/dl 08/21/2015 Lipid Ord30 TRIG 88 mg/dL 08/21/2015 Lipid Ord30 LDL 117 mg/dL 08/21/2015 Lipid Ord30 C/HDL 3.7 Ratio 08/21/2015 Comp Metabolic Jzk349 NA 139 mEq/L 08/21/2015 Comp Metabolic Cgx886 K 4.3 mEq/L 08/21/2015 Comp Metabolic Hxp992 CL 102 mEq/L 08/21/2015 Comp Metabolic Ggk491 CO2 27.0 mEq/L 08/21/2015 Comp Metabolic Zmw339 AN ION GAP 14 08/21/2015 Comp Metabolic Xne106 GL UCOSE 89 mg/dL 08/21/2015 Comp Metabolic Yxc477 Cr eat 0.7 mg/dL 08/21/2015 Comp Metabolic Fud389 eG FR 85 ml/min/1.73m2 08/21 Comp Metabolic Bnv360 BUN 14 mg/dL 08/21/2015 Comp Metabolic Fqw687 B/ C Ratio 19.7 Ratio 08/21/2015 Comp Metabolic Aca564 CA LCIUM 9.5 mg/dL 08/21/2015 Comp Metabolic Dde790 AL K PHOS 123 U/L 08/21/2015 Comp Metabolic Dyc219 T(SGOT) 13 U/L 08/21/2015 Comp Metabolic Pcn285 AL T(SGPT) 10 U/L 08/21/2015 Comp Metabolic Qpx521 BI LI T 0.4 mg/dL 08/21/2015 Comp Metabolic Mep296 AL BUMIN 4.1 g/dL 08/21/2015 Comp Metabolic Yzb478 TP RO 6.8 g/dL 08/21/2015 Comp Metabolic Vdw417 GL OB 2.7 g/dL 08/21/2015 Comp Metabolic Ums450 A/ G Ratio 1.5 Ratio 08/21/2015 Comp Metabolic Lpl228 Os mo 277 mOsmo 08/21/2015 Free T4 Pvr028 FREE T4 1.78 ng/dL 08/21/2015 Tsh Ord6 [...] Ord2 RDW 13.9 % 08/21/2015 Quick Strep Cgp6284 Quic k Strep Negative 07/08/2015 Tsh Ord6 hTSH II 0.04 uIU/mL 05/20/2015 Free T4 Kpg625 FREE T4 1.50 ng/dL 05/20/2015 Review of [...] Procedure Codes Date DESTRUCT PREMALG LESION CPT-4: 65822 01/19/2018 URINALYSIS NONAUTO W /O SCOPE CPT-4: 67308 09/12/2017 TRIAMCINOLONE ACET I [place] NOS CPT-4: J3301 06/14/2017 THER/PROPH/DIAG INJ SC/IM CPT-4: 11309 06/14/2017 PRESCRIP TRANSMIT A ERX SY CPT-4: G8553 06/14/2017 TRIAMCINOLONE ACET I [place] NOS CPT-4: J3301 03/27/2017 THER/PROPH/DIAG INJ SC/IM CPT-4: 97046 12/07/2016 TRIAMCINOLONE ACET I [place] NOS CPT-4: J3301 12/07/2016 THER/PROPH/DIAG INJ SC/IM CPT-4: 90653 11/28/2016 TRIAMCINOLONE ACET I [place] NOS CPT-4: J3301 11/28/2016 Vital Signs Date Vital 10/30/2018 Blood Pressure 1: 144/70 Code: 8480-6 BMI: 37.0 Code: 76917-5 Heart Rate 1: 76 bpm Height: 5'6" SpO2: 96% Weight: 229 lbs 06/28/2018 Blood Pressure 1: 110/66 Code: 8480-6 BMI: 37.1 Code: 35681-1 Heart Rate 1: 73 bpm Height: 5'6" SpO2: 98% Weight: 230 lbs 04/04/2018 Blood Pressure 1: 128/76 Code: 8480-6 BMI: 37.9 Code: 91018-5 Heart Rate 1: 86 bpm Height: 5'6" SpO2: 98% Weight: 235 lbs 01/19/2018 Blood Pressure 1: 122/68 Code: 8480-6 Heart Rate 1: 78 bpm Height: 5'6" SpO2: 97% Weight: 01/05/2018 Blood Pressure 1: 138/78 Code: 8480-6 BMI: 38.4 Code: 46258-2 Heart Rate 1: 73 bpm Height: 5'6" SpO2: 95% Weight: 238 lbs 11/29/2017 Blood Pressure 1: 138/80 Code: 8480-6 BMI: 38.7 Code: 73232-3 Heart Rate 1: 71 bpm Height: 5'6" SpO2: 97% Weight: 240 lbs 10/25/2017 Blood Pressure 1: 136/72 Code: 8480-6 BMI: 38.7 Code: 76846-5 Heart Rate 1: 92 bpm Height: 5'6" SpO2: 98% Weight: 240 lbs 09/12/2017 Blood Pressure 1: 132/68 Code: 8480-6 BMI: 39.7 Code: 30183-8 Heart Rate 1: 76 bpm Height: 5'6" SpO2: 98% Weight: 246 lbs 06/14/2017 Blood Pressure 1: 130/80 Code: 8480-6 BMI: 39.4 Code: 11455-5 Heart Rate 1: 73 bpm Height: 5'6" SpO2: 95% Temperature: 36.9 (C ) / 98.5 (F) Weight: 244 lbs 05/10/2017 Blood Pressure 1: 128/68 Code: 8480-6 BMI: 38.7 Code: 99592-4 Heart Rate 1: 69 bpm Height: 5'6" SpO2: 97% Weight: 240 lbs 04/19/2017 Blood Pressure 1: 138/74 Code: 8480-6 BMI: 38.7 Code: 02364-0 Heart Rate 1: 73 bpm Height: 5'6" SpO2: 96% Weight: 240 lbs 03/27/2017 Blood Pressure 1: 142/84 Code: 8480-6 BMI: 38.7 Code: 73170-7 Heart Rate 1: 69 bpm Height: 5'6" SpO2: 97% Weight: 240 lbs 01/26/2017 Blood Pressure 1: 136/68 Code: 8480-6 Heart Rate 1: 64 bpm Height: 5'6" SpO2: 96% Weight: 12/07/2016 Blood Pressure 1: 130/72 Code: 8480-6 BMI: 39.7 Code: 92235-6 Heart Rate 1: 73 bpm Height: 5'6" SpO2: 93% Temperature: 36.8 (C ) / 98.3 (F) Weight: 246 lbs 11/28/2016 Blood Pressure 1: 138/60 Code: 8480-6 BMI: 39.7 Code: 59848-7 Heart Rate 1: 81 bpm Height: 5'6" SpO2: 97% Weight: 246 lbs 11/15/2016 Blood Pressure 1: 134/78 Code: 8480-6 BMI: 39.7 Code: 56431-7 Heart Rate 1: 75 bpm Height: 5'6" SpO2: 93% Temperature: 36.8 (C ) / 98.2 (F) Weight: 246 lbs 10/17/2016 Blood Pressure 1: 120/64 Code: 8480-6 BMI: 38.4 Code: 92100-4 Heart Rate 1: 69 bpm Height: 5'6" SpO2: 98% Temperature: 37.2 (C ) / 98.9 (F) Weight: 238 lbs 09/28/2016 Blood Pressure 1: 158/76 Code: 8480-6 BMI: 39.4 Code: 98529-3 Heart Rate 1: 71 bpm Height: 5'6" SpO2: 97% Weight: 244 lbs 06/29/2016 Blood Pressure 1: 124/60 Code: 8480-6 BMI: 38.7 Code: 03059-7 Heart Rate 1: 71 bpm Height: 5'6" SpO2: 98% Weight: 240 lbs 06/01/2016 Blood Pressure 1: 120/62 Code: 8480-6 BMI: 38.6 Code: 96680-2 Heart Rate 1: 76 bpm Height: 5'6" SpO2: 98% Weight: 239 lbs 05/11/2016 Blood Pressure 1: 140/80 Code: 8480-6 BMI: 38.1 Code: 62210-5 Heart Rate 1: 88 bpm Height: 5'6" SpO2: 97% Weight: 236 lbs 04/05/2016 Blood Pressure 1: 142/80 Code: 8480-6 BMI: 38.4 Code: 53827-6 Heart Rate 1: 96 bpm Height: 5'6" SpO2: 98% Weight: 238 lbs 04/01/2016 Blood Pressure 1: 136/88 Code: 8480-6 BMI: 39.2 Code: 69207-3 Heart Rate 1: 86 bpm Height: 5'6" SpO2: 96% Weight: 243 lbs 01/26/2016 Blood Pressure 1: 124/76 Code: 8480-6 BMI: 39.2 Code: 47021-1 Heart Rate 1: 76 bpm Height: 5'6" SpO2: 97% Weight: 243 lbs 12/21/2015 Blood Pressure 1: 120/64 Code: 8480-6 BMI: 37.0 Code: 40858-8 Heart Rate 1: 98 bpm Height: 5'6" SpO2: 97% Weight: 229 lbs 10/12/2015 Blood Pressure 1: 150/64 Code: 8480-6 BMI: 37.4 Code: 81006-9 Heart Rate 1: 70 bpm Height: 5'6" SpO2: 94% Weight: 232 lbs 08/24/2015 Blood Pressure 1: 128/74 Code: 8480-6 BMI: 36.8 Code: 58887-0 Heart Rate 1: 88 bpm Height: 5'6" SpO2: 94% Temperature: 36.8 (C ) / 98.3 (F) Weight: 228 lbs 06/01/2015 Blood Pressure 1: 134/68 Code: 8480-6 BMI: 36.0 Code: 01119-1 Heart Rate 1: 70 bpm Height: 5'6" SpO2: 98% Weight: 223 lbs 05/21/2015 Blood Pressure 1: 126/72 Code: 8480-6 BMI: 35.2 Code: 94407-7 Heart Rate 1: 63 bpm Height: 5'6" SpO2: 95% Weight: 218 lbs 5 oz 03/26/2015 Blood Pressure 1: 140/62 Code: 8480-6 BMI: 35.3 Code: 76082-5 Heart Rate 1: 68 bpm Height: 5'6" Weight: 219 lbs 03/11/2015 Blood Pressure 1: 130/80 Code: 8480-6 BMI: 34.9 Code: 65439-7 Heart Rate 1: 76 bpm Height: 5'6" Temperature: 37.1 (C ) / 98.7 (F) Weight: 216 lbs 12/11/2014 Blood Pressure 1: 134/62 Code: 8480-6 BMI: 34.2 Code: 50898-7 Heart Rate 1: 72 bpm Height: 5'6" Weight: 212 lbs 09/18/2014 Blood Pressure 1: 148/80 Code: 8480-6 BMI: 34.7 Code: 83932-2 Heart Rate 1: 68 bpm Height: 5'6" Weight: 215 lbs 07/31/2014 Blood Pressure 1: 124/72 Code: 8480-6 BMI: 36.2 Code: 27131-9 Heart Rate 1: 68 bpm Height: 5'6" [...] Severity mi ld 09/28/2016 None 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 09/28/2016 None hypothyroid Onset and Resolution [...] Severity mi ld 06/01/2016 None 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 06/01/2016 None hypothyroid Onset and Resolution [...] and Resolution resolved 04/05/2016 None 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 P ATIENT, LEVEL IV Diagnosis: Essential (primary) hypertension[ICD10: I10] Diagnosis: Hypothyroidism, unspecified[ICD10: E03.9] Diagnosis: Low back pain[ICD10: M54.5] [facility] CPT- 4: 86855 10/30/2018 [id number] EST. P ATIENT, LEVEL III Diagnosis: Acute recurrent maxillary sinusitis[ICD10: J01.01] Diagnosis: Other mucopurulent conjunctivitis, left eye[ICD10: H10.022] Diagnosis: Other allergic rhinitis[ICD10: J30.89] [facility] CPT-4: 52856 06/28/2018 10122 EST. PATIENT, LEVEL IV Diagnosis: Essential (primary) hypertension[ICD10: I10] Diagnosis: Other specified hypothyroidism[ICD10: E03.8] Diagnosis: Other specified anemias[ICD10: D64.89] Diagnosis: Localized edema[ICD10: R60.0] [facility] CPT-4: 95393 04/04/2018 ([id number]) 23298 EST. P ATIENT, LEVEL III Diagnosis: Mild persistent asthma, uncomplicated[ICD10: J45.30] Diagnosis: Actinic keratosis[ICD10: L57.0] Lynn Finn MD, [facility] CPT- 4: 52867 01/05/2018 ([id number]) Miscellaneou s no charge Diagnosis: Essential (primary) hypertension[ICD10: I10] Damari Finn MD, [facility] CPT-4: 28980 12/12/2017 [id number] EST. PATIENT, LEVEL III Diagnosis: Essential (primary) hypertension[ICD10: I10] Diagnosis: Atrophy of thyroid (acquired)[ICD10: E03.4] Diagnosis: Low back pain[ICD10: M54.5] Mishel Finn MD, [facility] CPT-4: 80182 11/29/2017 [id number] EST. PATIENT, LEVEL III Diagnosis: Pain in left hip[ICD10: M25.552] Mishel Finn MD, [facility] CPT-4: 92699 10/25/2017 [id number] EST. PATIENT, LEVEL IV Diagnosis: Localized edema[ICD10: R60.0] Mishel Finn MD, [facility] CPT-4: 96678 09/12/2017 [id number] EST. PATIENT, LEVEL IV Diagnosis: Mild persistent asthma with (acute) exacerbation[ICD10: J45.31] Mishel Finn MD, [facility] CPT-4: 21364 06/14/2017 25940 EST. PATIENT, LEVEL III Diagnosis: Localized edema[ICD10: R60.0] Diagnosis: Mild persistent asthma, uncomplicated[ICD10: J45.30] Mishel Finn MD, [facility] CPT-4: 03946 05/10/2017 12156 EST. PATIENT, LEVEL III Diagnosis: Mild persistent asthma with (acute) exacerbation[ICD10: J45.31] Mishel Finn MD, [facility] CPT-4: 66810 04/19/2017 ([id number]) 12710 EST. P ATIENT, LEVEL IV Diagnosis: Contusion of left wrist, initial encounter[ICD10: S60.212A] Diagnosis: Hypothyroidism, unspecified[ICD10: E03.9] Diagnosis: Mild persistent asthma with (acute) exacerbation[ICD10: J45.31] Diagnosis: Low back pain[ICD10: M54.5] Lynn Finn MD, [facility] CPT- 4: 05067 03/27/2017 ([id number]) 28969 EST. P ATIENT, LEVEL IV Diagnosis: Essential (primary) hypertension[ICD10: I10] Diagnosis: Atrophy of thyroid (acquired)[ICD10: E03.4] Diagnosis: Low back pain[ICD10: M54.5] Damari Finn MD, [facility] CPT-4: 55335 01/26/2017 [id number] EST. PATIENT, LEVEL III Diagnosis: Other allergic rhinitis[ICD10: J30.89] Diagnosis: Mild persistent asthma with (acute) exacerbation[ICD10: J45.31] Mishle Finn MD, [facility] CPT-4: 85759 12/07/2016 [id number] EST. PATIENT, LEVEL III Diagnosis: Mild persistent asthma with (acute) exacerbation[ICD10: J45.31] Mishel Finn MD, [facility] CPT-4: 45398 11/28/2016 [id number] EST. PATIENT, LEVEL III Diagnosis: Mild persistent asthma with (acute) exacerbation[ICD10: J45.31] Diagnosis: Acute bronchitis due to other specified organisms[ICD10: J20.8] Mishel Finn MD, [facility] CPT-4: 09689 11/15/2016 48141 EST. PATIENT, LEVEL IV Diagnosis: Other acute sinusitis[ICD10: J01.80] Diagnosis: Other allergic rhinitis[ICD10: J30.89] Diagnosis: Mild persistent asthma with (acute) exacerbation[ICD10: J45.31] Mishel Finn MD, [facility] CPT-4: 77700 10/17/2016 ([id number]) 60205 EST. P ATIENT, LEVEL IV Diagnosis: Essential (primary) hypertension[ICD10: I10] Diagnosis: Low back pain[ICD10: M54.5] Damari Finn MD, [facility] CPT-4: 09284 09/28/2016 80071 EST. PATIENT, LEVEL III Diagnosis: Tinea barbae and tinea capitis[ICD10: B35.0] Diagnosis: Other specified hypothyroidism[ICD10: E03.8] Mishel Finn MD, [facility] CPT-4: 51435 06/29/2016 ([id number]) 45424 EST. P ATIENT, LEVEL IV Diagnosis: Essential (primary) hypertension[ICD10: I10] Diagnosis: Atrophy of thyroid (acquired)[ICD10: E03.4] Diagnosis: Rash and other nonspecific skin eruption[ICD10: R21] Damari Finn MD, [facility] CPT-4: 95619 06/01/2016 ([id number]) 16294 EST. P ATIENT, LEVEL III Diagnosis: Cellulitis of groin[ICD10: L03.314] Damari Finn MD, [facility] CPT- 4: 80952 05/11/2016 ([id number]) 90460 EST. P ATIENT, LEVEL IV Diagnosis: Hypothyroidism, unspecified[ICD10: E03.9] Diagnosis: Candidiasis of vulva and vagina[ICD10: B37.3] Diagnosis: Essential (primary) hypertension[ICD10: I10] Diagnosis: Low back pain[ICD10: M54.5] Lynn Finn MD, [facility] CPT- 4: 49032 04/05/2016 89245 EST. PATIENT, LEVEL III Diagnosis: Other acute sinusitis[ICD10: J01.80] Diagnosis: Rash and other nonspecific skin eruption[ICD10: R21] Mishel Finn MD, [facility] CPT-4: 42158 04/01/2016 ([id number]) 47701 EST. P ATIENT, LEVEL IV Diagnosis: Essential (primary) hypertension[ICD10: I10] Diagnosis: Hypothyroidism, unspecified[ICD10: E03.9] Diagnosis: Low back pain[ICD10: M54.5] Diagnosis: Other obesity due to excess calories[ICD10: E66.09] Lynn Finn MD, [facility] CPT-4: 01456 01/26/2016 13920 EST. PATIENT, LEVEL IV Diagnosis: Essential (primary) hypertension[ICD10: I10] Diagnosis: Cutaneous abscess of face[ICD10: L02.01] Mishel Finn MD, [facility] CPT-4: 61523 12/21/2015 ([id number]) 03809 EST. P ATIENT, LEVEL III Diagnosis: Cutaneous abscess of groin[ICD10: L02.214] Diagnosis: Hypothyroidism, unspecified[ICD10: E03.9] Lynn Finn MD, [facility] CPT-4: 74466 10/12/2015 ([id number]) 73965 EST. P ATIENT, LEVEL III Diagnosis: Essential (primary) hypertension[ICD10: I10] Diagnosis: Hypothyroidism, unspecified[ICD10: E03.9] Diagnosis: Allergic rhinitis, unspecified[ICD10: J30.9] Lynn Finn MD, [facility] CPT-4: 84396 08/24/2015 ([id number]) 76483 EST. P ATIENT, LEVEL III Diagnosis: Skin infection[ICD9: 686.9] Damari Finn MD, [facility] CPT-4: 78522 06/01/2015 ([id number]) 78102 EST. P ATIENT, LEVEL III Diagnosis: Hypothyroidism[ICD9: 244.9] Diagnosis: ESSENTIAL HYPERTENSION[ICD9: 401.9] Damari Finn MD, [facility] CPT- 4: 76279 05/21/2015 ([id number]) 07266 EST. P ATIENT, LEVEL III Diagnosis: Hypothyroidism[ICD9: 244.9] Diagnosis: Fingernail abnormalities[ICD9: 703.8] Lynn Finn MD, [facility] CPT-4: 00383 03/26/2015 ([id number]) 26301 EST. P ATIENT, LEVEL II Diagnosis: Hypothyroidism[ICD9: 244.9] Maritza Finn MD, [facility] CPT-4: 08123 03/11/2015 ([id number]) 83030 EST. P ATIENT, LEVEL IV Diagnosis: ESSENTIAL HYPERTENSION[ICD9: 401.9] Diagnosis: Low back pain[ICD9: 724.2] Diagnosis: Hypothyroidism[ICD9: 244.9] Damari Finn MD, [facility] CPT-4: 54167 12/11/2014 ([id number]) 91153 EST. P ATIENT, LEVEL IV Diagnosis: Hidradenitis suppurativa[ICD9: 705.83] Diagnosis: ESSENTIAL HYPERTENSION[ICD9: 401.9] Diagnosis: Low back pain[ICD9: 724.2] Diagnosis: Lumbar spinal stenosis[ICD9: 724.02] Diagnosis: HYPOTHYROIDISM[ICD9: 244.9] [facility] CPT-4: 89385 09/18/2014 Office outpatient ne w 30 minutes Diagnosis: ESSENTIAL HYPERTENSION[ICD9: 401.9] Diagnosis: Hypothyroidism[ICD9: 244.9] Diagnosis: Low back pain[ICD9: 724.2] [facility] CPT- 4: 67444 07/31/2014 Plan of Care Planned Activity Notes C odes Status Date Visit Plan: Hypertension - well con trolled [...] as indicated 10/30/2018 Appointment: Lynn Arenas WPtel: [facility]5 [phone] (30 min) Complex 10/30/2018 Patient Education: Patient Medication Summary Completed 10/30/2018 Patient Education: Hypertension Completed 10/30/2018 Patient Education: Back Pain Completed 10/30/2018 Appointment: Lynn Arenas WPtel: [facility]5 [phone] (30 min) Complex 10/26/2018 Patient Education: Patient Medication Summary Completed 10/23/2018 Appointment: Lynn Arenas WPtel: [phone] (15 min) Moderate 10/19/2018 Appointment: Damari Finn WPtel: [facility] (15 min) Moderate 09/19/2018 Visit [...] times daily. 06/28/2018 Appointment: Lynn Arenas WPtel: [address] [place], [place] [phone] (30 min) Complex 06/28/2018 Patient Education: Patient [...] to monitor. 04/04/2018 Appointment: Mishel Balderrama WPtel: [phone] [facility] (15 min) Moderate 04/04/2018 Patient Education: Patient Medication Summary Completed 04/04/2018 Visit Plan: Wound Instructions - Pt was instructed to keep the wound clean, wash with antibacterial soap, use triple antibiotic ointment, call if redness, pustular drainage, or any other acute concerns. 01/19/2018 Appointment: Lynn Arenas WPtel: [phone] [phone] (30 min) Complex 01/19/2018 Patient Education: Patient [...] concerns. 01/05/2018 Appointment: Lynn Arenas WPtel: [phone] [phone] [place] (30 min) Complex 01/05/2018 Patient Education: Patient Medication Summary Completed 01/05/2018 Appointment: Nurse Visit 12/12/2017 Patient Education: Patient Medication Summary Completed 12/12/2017 Visit Plan: Hypertension - rashel faye - [...] improve. 11/29/2017 Appointment: Mis[facility] Balderrama [facility]Ptel[phone] [facility] [place] (30 min) Complex 11/29/2017 Patient [...] improve. 10/25/2017 Appointment: Mis[facility] Balderrama [facility]Ptel[phone] [facility] [place] (30 min) Complex 10/25/2017 Patient [...] edema. 09/12/2017 Appointment: Mishel Balderrama WPtel: [phone] [facility] [place] (30 min) Complex 09/12/2017 Patient Education: Patient Medication Summary Completed 09/12/2017 Appointment: Lynn Arenas WPtel: [phone] [phone] [place] (30 min) Complex 06/27/2017 Visit Plan: [...] changes. 06/14/2017 Appointment: Mis[facility] Balderrama [facility]Ptel[phone] [facility] [place] (15 min) Moderate 06/14/2017 Patient Education: [...] changes 05/10/2017 Appointment: Mis[facility] Balderrama [facility]Ptel[phone] [facility] (15 min) Moderate 05/10/2017 Patient Education: Patient [...] changes. 04/19/2017 Appointment: Mis[facility] Balderrama [facility]Ptel[facility] [phone] [facility] (15 min) Moderate 04/19/2017 Patient Education: [...] on previous levels of control. Low back ckrx-onczmss-fknoiz tramadol for prn use 03/27/2017 Appointment: Lynn Arenas WPtel: [phone] [phone] (30 min) Complex 03/27/2017 Patient Education: Patient Medication Summary Completed 03/27/2017 Visit Plan: Hypertension - well cat faye [...] improve. 01/26/2017 Appointment: Damari Finn WPtel: [phone] [facility] (15 min) Moderate 01/26/2017 Patient Education: Patient [...] concerns. 12/07/2016 Appointment: Mishel Balderrama WPtel: [phone] [facility] (15 min) Moderate 12/07/2016 Patient Education: [...] dyspnea/persistent wheezing/asthma symptoms. 11/28/2016 Appointment: Mishel Balderrama: [facility] (15 min) Moderate 11/28/2016 Patient Education: Patient Medication Summary Completed 11/28/2016 Appointment: Mishel Balderrama: [address] [place], [place] [address] (15 min) Moderate 11/24/2016 Visit Plan: Bronchitis [...] acute changes. 11/15/2016 Appointment: Mishel Balderrama WPtel: [facility]5 [facility] (30 min) Complex 11/15/2016 [...] changes. 10/17/2016 Appointment: Mishel Balderrama WPtel: [phone] [facility] (30 min) Complex 10/17/2016 Patient Education: Patient [...] tylenol 09/28/2016 Appointment: [phone] (15 min) Moderate 09/28/2016 Patient [...] control. 06/29/2016 Appointment: Lynn Arenas WPtel: [phone] [phone] (15 min) Moderate 06/29/2016 Patient Education: Patient [...] fluconazole 06/01/2016 Appointment: [facility]Ptel[phone] (15 min) Moderate 06/01/2016 Patient Education: Patient Medication Summary Completed 06/01/2016 Patient Education: Obesity Completed 06/01/2016 Visit Plan: Cellulitis - continue w ith oral antibiotics as previously directed, return to clinic as previously directed, call for acute change in symptoms, worsening redness, warmth, discharge. 05/11/2016 Appointment: Damari Finn WPtel: [facility]5 [facility] (15 min) Moderate 05/11/2016 Patient Education: Patient [...] any concerns. 04/01/2016 Appointment: Lynn Arenas WPtel: [phone] [phone] (30 min) Complex 04/01/2016 Patient Education: Patient Medication Summary Completed 04/01/2016 Patient Education: Obesity Completed 04/01/2016 Appointment: Lynn Arenas WPtel: [phone] [phone] (30 min) Complex 03/29/2016 Visit Plan: Hypertension [...] levels of control. Low back pain-refill tramadol Lqcsn-ozjouaowxe-xdualtqe resolved 01/26/2016 Appointment: Lynn Arenas WPtel: [facility]5 [phone] (30 min) Complex 01/26/2016 Patient Education: Patient Medication Summary Completed 01/26/2016 Patient Education: Obesity Completed 01/26/2016 Care Plan: BMI Above normal followup RADHA F-MGMT EDUC & TRAIN 1 PT Pending 01/26/2016 Care Plan: Referral Order SNOMED-CT : [id number] Pending 01/07/2016 Appointment: Lynn Arenas WPtel: [phone] (15 min) Moderate 12/24/2015 Visit Plan: [...] nor improving. 06/01/2015 Appointment: Damari Finn WPtel: [address] [place], [place] [address] (15 min) Moderate 06/01/2015 Patient Education: Patient [...] refill tramadol 12/11/2014 Appointment: Damari Finn WPtel: [facility]5 [facility] [facility] follow up 12/11/2014 Patient Education: Patient Medication Summary Completed 12/11/2014 Patient Education: Hypertension Completed 12/11/2014 Appointment: Damari Finn WPtel: [facility]5 [facility] [facility] follow up 11/27/2014 Visit Plan: Hidradenitis [...] to get her back MRI done at [facility] in [place] as that is where her specialist will be once we get her an appt with one of the local Neurosurgeons. 09/18/2014 Appointment: Damari Finn WPtel: [facility] Follow up 09/18/2014 Patient Education: [...] back pain-bulging disc L4/L5-follow up with Dr Linconl as scheduled 07/31/2014 Appointment: Lynn Arenas WPtel: [phone] [phone] [place] New Patient 07/31/2014 Patient Education: Patient Medication Summary Completed 07/31/2014 Referral: Artur Daugherty she w ill be calling and making her appt Initiated Referral: Artur Daugherty Referral Initiated Instructions Comment tramadol-Dillons . Hypertension - well controlled - [...] levels of control. Low back pain-refill tramadol Tconv-ekrmgugdgh-kigycbio resolved . Edema - pt has bee [...] . 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 . Wound Instructions - Pt was instructed [...] patient is stable, monitor for acute changes. Check thyroid on Feb. Will refill blood [...] referral to Dr. Daugherty. Will refer pt. [place] INJECTION TO DAY CALL IF YOU NEED AN ANTIBIOTIC CHECK THYROID LABS GET LABS FROM [facility] ON MONDAY . 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 Low back xgch-cscjiol-zqpxjo tramadol for prn use . Brittle fingernail [...] in medications. Back pain - prn tylenol bactroban ointment t o sore twice daily [...] to further attempt to reduce peripheral edema. INCREASE LEVOTHYROXI NE TO 137MCG DAILY REPEAT TSH, FREE T4 IN 3 MONTHS OKAY TO STAY OFF LISINOPRIL MONITOR BLOOD PRESSURE AND PULSE -CALL IF CONSISTENTLY 140S/90 OR HIGHER REFER FOR PT FOR LOW BACK PAIN -[facility] PT . Hypertension - well controlled - [...] to evaluate and treat as indicated . Edema - pt has bee n [...] worsening or does not improve. Declined Procedure: ([id number]) FLU VAC NO PRSV 4 JUSTYNA 3 YRS+; Declined Reason: refused Physical therapy at [facility] . Hypertension - well controlled - [...] antibiotic. Pt to call if nor improving. restart lisinopril/h CTZ - this will help [...] medication into affected eye four times daily. I will call your tra catracho to [...] consequences of over-medication. Yeast infection-RX for diflucan hidradenitis suppura tiva USE ANTIBACTERIAL SOAP ASTRINGENT [...] to get her back MRI done at [facility] in [place] as that is where her specialist will [...] nasal steroid allergy spray. Coricidin HBP . Tinea of the scalp - will [...]
--- OUTSIDE RECORDS SUMMARY | 2020-02-20 19:27 | XMS REPORT | CCD ---
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 Unknown Has never used illegal drugs 014 Allergies, Adverse Reactions, Alerts Substance Reaction Codes Entered Date Inactivated Date Status * NO KNOWN FOOD BEVERLY RGIES Unknown 07/31/2014 No Inactive Date Active bactrim hives, rash RxNorm: 438411 04/05/2016 No Inactive Date Active Past Medical [...] Instructions levothyroxine 137 mc g tablet RxNorm: 865396 1 Tablet(s) PO daily TAKE ONE TABLET BY MOUTH DAILY ON AN EMPTY STOMACH 10/30/2018 01/22/2020 Active ProAir HFA 90 mcg/ac tuation aerosol inhaler RxNorm: 0218186 1-2 Puff(s) INH Q4 P RN INHALE 1 TO 2 PUFFS FOUR TIMES A DAY NEEDED FOR ASTHMA 10/30/2018 01/27/2019 Active tramadol 50 mg tablet RxNorm: 693091 1 Tablet(s) PO Q4 PRN as needed for pain 10/29/2018 12/07/2018 Ac tive lorazepam 1 mg tablet RxNorm: 386227 Tablet(s) TAKE TWO TABLETS BY MOUTH AT B EDTIME NEEDED FOR INSOMNIA AND ONE TABLET DAILY NEEDED ANXIETY 09/06/2018 11/04/2018 Active levothyroxine 125 mc g tablet RxNorm: 298552 1 Tablet(s) PO daily TAKE ONE TABLET BY MOUTH DAILY ON AN EMPTY STOMACH 09/06/2018 10/29/2018 Inactive tramadol 50 mg tablet RxNorm: 950293 1 Tablet(s) PO Q4 PRN as needed for pain 09/06/2018 10/15/2018 In active tramadol 50 mg tablet RxNorm: 263285 1 Tablet(s) PO Q4 PRN as needed for pain 07/06/2018 08/14/2018 In active ciprofloxacin 0.3 % eye drops RxNorm: 274898 2 Drop(s) ophthalmic (eye) TID 06/28/2018 07/07/2018 In active lorazepam 1 mg tablet RxNorm: 820475 Tablet(s) TAKE TWO TABLETS BY MOUTH AT B EDTIME NEEDED FOR INSOMNIA AND ONE TABLET DAILY NEEDED ANXIETY 06/28/2018 08/26/2018 Inactive doxycycline hyclate 100 mg tablet RxNorm: 8027140 1 Tablet(s) PO BID 06/28/2018 07/04/2018 Inactive tramadol 50 mg tablet RxNorm: 753317 1 Tablet(s) PO Q4 PRN as needed for pain 06/13/2018 07/05/2018 In active lorazepam 1 mg tablet RxNorm: 519402 Tablet(s) TAKE TWO TABLETS BY MOUTH AT B EDTIME NEEDED FOR INSOMNIA AND ONE TABLET DAILY NEEDED ANXIETY 05/23/2018 06/27/2018 Inactive tramadol 50 mg tablet RxNorm: 426726 1 Tablet(s) PO Q4 PRN as needed for pain 05/23/2018 06/12/2018 In active levothyroxine 125 mc g tablet RxNorm: 495322 Tablet(s) TAKE ONE TA BLET BY MOUTH DAILY ON AN EMPTY STOMACH 05/23/2018 09/05/2018 Inactive tramadol 50 mg tablet RxNorm: 916091 1 Tablet(s) PO Q4 PRN as needed for pain 05/17/2018 05/22/2018 In active levothyroxine 125 mc g tablet RxNorm: 652196 TAKE ONE TABLET BY [facility] DAILY 05/15/2018 06/27/2018 In active levothyroxine 125 mc g tablet RxNorm: 640867 TAKE ONE TABLET BY [facility] DAILY 05/15/2018 06/27/2018 In active tramadol 50 mg tablet RxNorm: 066736 1 Tablet(s) PO Q4 PRN as needed for pain 04/30/2018 05/16/2018 In active Advair Diskus 100 mc g-50 mcg/dose powder for inhalation RxNorm: 9732234 1 Puff(s) INH BID 04/06/2018 No Stop Date Active Symbicort 80 mcg-4.5 mcg/actuation HFA aerosol inhaler RxNorm: 5716886 2 Puff(s) INH BID 04/06/2018 No Stop Date Active Advair Diskus 250 mc g-50 mcg/dose powder for inhalation RxNorm: 4597463 1 Puff(s) INH BID 04/05/2018 09/01/2018 Inactive Zyrtec 10 mg tablet RxNorm: 9416985 1 Tablet(s) PO daily x1 week then PRN 04/05/2018 08/02/2018 In active lisinopril 20 mg-hyd rochlorothiazide 25 mg tablet RxNorm: 919871 Tablet(s) TAKE ONE TABLET BY MOUTH DAILY 04/05/2018 10/29/2018 Inactive Zyrtec 10 mg tablet RxNorm: 9452922 1 Tablet(s) PO daily 04/04/2018 05/03/2018 Inactive tramadol 50 mg tablet RxNorm: 044531 1 Tablet(s) PO Q4 PRN as needed for pain 03/13/2018 04/21/2018 In active lorazepam 1 mg tablet RxNorm: 704238 Tablet(s) TAKE TWO TABLETS BY MOUTH AT B EDTIME NEEDED FOR INSOMNIA AND ONE TABLET DAILY NEEDED ANXIETY 03/02/2018 04/30/2018 Inactive levothyroxine 125 mc g tablet RxNorm: 654829 1 Tablet(s) PO daily 02/06/2018 05/06/2018 Inactive levothyroxine 125 mc g tablet RxNorm: 857140 TAKE ONE TABLET BY MO UTH DAILY ON AN EMPTY STOMACH 02/06/2018 05/22/2018 Inactive tramadol 50 mg tablet RxNorm: 062163 1 Tablet(s) PO Q4 PRN as needed for pain 01/26/2018 03/06/2018 In active lorazepam 1 mg tablet RxNorm: 265279 Tablet(s) TAKE TWO TABLETS BY MOUTH AT B EDTIME NEEDED FOR INSOMNIA AND ONE TABLET DAILY NEEDED ANXIETY 01/23/2018 06/27/2018 Inactive Symbicort 80 mcg-4.5 mcg/actuation HFA aerosol inhaler RxNorm: 2342607 INH 01/05/2018 06/27/2018 In active tramadol 50 mg tablet RxNorm: 107926 1 Tablet(s) PO Q4 PRN as needed for pain 01/04/2018 01/25/2018 In active Advair Diskus 250 mc g-50 mcg/dose powder for inhalation RxNorm: 9344785 1 Puff(s) INH BID 11/29/2017 03/28/2018 Inactive hydrochlorothiazide 12.5 mg tablet RxNorm: 180989 1 Tablet(s) PO daily 11/29/2017 12/28/2017 In active tramadol 50 mg tablet RxNorm: 449369 1 Tablet(s) PO Q4 PRN as needed for pain 11/23/2017 01/01/2018 In active tramadol 50 mg tablet RxNorm: 173754 1 Tablet(s) PO Q4 PRN as needed for pain 10/06/2017 11/14/2017 In active lorazepam 1 mg tablet RxNorm: 396279 Tablet(s) TAKE TWO TABLETS BY MOUTH AT B EDTIME NEEDED FOR INSOMNIA AND ONE TABLET DAILY NEEDED ANXIETY 09/12/2017 06/27/2018 Inactive tramadol 50 mg tablet RxNorm: 781639 1 Tablet(s) PO Q4 PRN as needed for pain 09/12/2017 10/05/2017 In active tramadol 50 mg tablet RxNorm: 532196 1 Tablet(s) PO Q4 PRN as needed for pain 08/15/2017 09/11/2017 In active tramadol 50 mg tablet RxNorm: 590231 1 Tablet(s) PO Q4 PRN as needed for pain 06/29/2017 08/07/2017 In active ProAir HFA 90 mcg/ac tuation aerosol inhaler RxNorm: 9576277 INHALE 1 TO 2 PUFFS FOUR TIMES A DAY NEEDED FOR ASTHMA 06/14/2017 11/10/2017 Inactive prednisone 20 mg tablet RxNorm: 290123 1 Tablet(s) PO BID x 2 days, then 1 pill daily x 3 days, then 1/2 pill every other day x 3 doses. 06/14/2017 09/11/2017 Inactive Kenalog 40 mg/mL madhavi pension for injection RxNorm: 7446724 1 Milliliter(s) Inj 06/14/2017 06/14/2017 In active Zyrtec 10 mg tablet RxNorm: 9357038 1 Tablet(s) PO daily 06/14/2017 07/13/2017 Inactive tramadol 50 mg tablet RxNorm: 259924 1 Tablet(s) PO Q4 PRN as needed for pain 06/08/2017 06/27/2017 In active [SAVINGS FOR UNINSURED PATIENTS -- BIN:0 01872, PCN: ASPROD1, Group: [id number], ID# [id number], Process claim through [employer], for questions: . THIS IS NOT INSURANCE.] tramadol 50 mg tablet RxNorm: 643718 1 Tablet(s) PO Q4 PRN as needed for pain 05/16/2017 06/04/2017 In active [SAVINGS FOR UNINSURED PATIENTS -- BIN:0 19950, PCN: ASPROD1, Group: [id number], ID# [id number], Process claim through [employer], for questions: . THIS IS NOT INSURANCE.] lorazepam 1 mg tablet RxNorm: 650607 Tablet(s) TAKE TWO TABLETS BY MOUTH AT B EDTIME NEEDED FOR INSOMNIA AND ONE TABLET DAILY NEEDED ANXIETY 05/16/2017 08/13/2017 Inactive Lasix 20 mg tablet RxNorm: 1 Tablet(s) PO daily 05/10/2017 05/09/2017 Inactive Lasix 20 mg tablet RxNorm: 1 Tablet(s) PO daily 05/10/2017 05/12/2017 Inactive potassium chloride E R 10 mEq tablet,extended release RxNorm: 790191 1 Tablet(s) PO daily while on the lasix 05/10/2017 05/09/2017 Inactive potassium chloride E R 10 mEq tablet,extended release RxNorm: 420043 1 Tablet(s) PO daily while on the lasix 05/10/2017 05/12/2017 Inactive prednisone 20 mg tablet RxNorm: 465331 1 Tablet(s) PO BID x 2 days, then 1 pill daily x 3 days, then 1/2 pill every other day x 3 doses. 04/19/2017 06/13/2017 Inactive Zithromax Z-Linus 250 mg tablet RxNorm: 372214 1 Tablet(s) PO UD 04/13/2017 06/28/2017 Inactive prednisone 20 mg tablet RxNorm: 301542 1 Tablet(s) PO BID 04/13/2017 04/17/2017 Inactive levothyroxine 125 mc g tablet RxNorm: 166043 1 Tablet(s) PO daily 04/11/2017 10/07/2017 Inactive tramadol 50 mg tablet RxNorm: 425771 1 Tablet(s) PO Q4 PRN as needed for pain 03/27/2017 04/15/2017 In active [SAVINGS FOR UNINSURED PATIENTS -- BIN:0 79380, PCN: ASPROD1, Group: AME08, ID# [id number], Process claim through [employer], for questions: . THIS IS NOT INSURANCE.] Kenalog 40 mg/mL madhavi pension for injection RxNorm: 3055688 1 Milliliter(s) Inj 03/27/2017 03/27/2017 In active tramadol 50 mg tablet RxNorm: 591525 1 Tablet(s) PO Q4H as needed for pain 03/09/2017 03/26/2017 In active [SAVINGS FOR UNINSURED PATIENTS -- BIN:0 13902, PCN: ASPROD1, Group: [id number], ID# [id number], Process claim through [employer], for questions: . THIS IS NOT INSURANCE.] lisinopril 20 mg-hyd rochlorothiazide 25 mg tablet RxNorm: 089625 TAKE ONE TABLET BY MOUTH DAILY 01/29/2017 11/21/2017 Inactive lorazepam 1 mg tablet RxNorm: 179667 Tablet(s) TAKE TWO TABLETS BY MOUTH AT B EDTIME NEEDED FOR INSOMNIA AND ONE TABLET DAILY NEEDED ANXIETY 01/05/2017 04/04/2017 Inactive tramadol 50 mg tablet RxNorm: 368665 1 Tablet(s) PO Q4H as needed for pain 12/07/2016 01/13/2017 In active [SAVINGS FOR UNINSURED PATIENTS -- BIN:0 76035, PCN: ASPROD1, Group: AME08, ID# [id number], Process claim through [employer], for questions: . THIS IS NOT INSURANCE.] Kenalog 40 mg/mL madhavi pension for injection RxNorm: 7565527 Milliliter(s) Inj 12/07/2016 12/07/2016 In active nystatin 100,000 uni t/mL oral suspension RxNorm: 850613 4 Milliliter(s) PO QI D 12/07/2016 12/11/2016 In active Francia-D 12 Hour 60 mg-120 mg tablet,extended release RxNorm: 499931 1 Tablet(s) PO BID 12/07/2016 01/11/2017 Inactive lorazepam 1 mg tablet RxNorm: 276713 Tablet(s) TAKE TWO TABLETS BY MOUTH AT B EDTIME AND ONE TABLET DAILY NEEDED 12/07/2016 01/04/2017 Inactive (Response to an electronic controlled substance refill request - RxReferenceNumber: [id number]) albuterol sulfate 2. 5 mg/3 mL (0.083 %) solution for nebulization RxNorm: 412324 3 Milliliter(s) INH TID 11/29/2016 11/28/2016 Inactive prednisone 10 mg tablet RxNorm: 509574 Tablet(s) PO UD 11/29/2016 12/05/2016 Inactive 6,5,4,3,2,1 doxycycline hyclate 100 mg tablet RxNorm: 269857 1 Tablet(s) PO BID 11/29/2016 12/04/2016 Inactive albuterol sulfate 2. 5 mg/3 mL (0.083 %) solution for nebulization RxNorm: 258864 3 Milliliter(s) INH TID 11/29/2016 12/03/2016 Inactive Kenalog 40 mg/mL madhavi pension for injection RxNorm: 2040018 Milliliter(s) Inj 11/28/2016 11/28/2016 In active tramadol 50 mg tablet RxNorm: 399831 1 Tablet(s) PO Q4H as needed for pain 11/15/2016 12/06/2016 In active [SAVINGS FOR UNINSURED PATIENTS -- BIN:0 88331, PCN: ASPROD1, Group: [id number], ID# [id number], Process claim through [employer], for questions: . THIS IS NOT INSURANCE.] prednisone 20 mg tablet RxNorm: 221692 2 Tablet(s) PO daily 11/15/2016 11/19/2016 Inactive Advair Diskus 100 mc g-50 mcg/dose powder for inhalation RxNorm: 2213831 1 Puff(s) INH BID 11/15/2016 06/11/2017 Inactive ProAir HFA 90 mcg/ac tuation aerosol inhaler RxNorm: 954593 INHALE 1 TO 2 PUFFS F OUR TIMES A DAY NEEDED FOR ASTHMA 11/15/2016 04/13/2017 Inactive Zithromax Z-Linus 250 mg tablet RxNorm: 092688 1 Tablet(s) PO UD 11/15/2016 11/27/2016 Inactive Zyrtec 10 mg tablet RxNorm: 1384978 1 Tablet(s) PO daily 10/17/2016 11/15/2016 Inactive Keflex 500 mg capsule RxNorm: 860983 1 Capsule(s) PO TID 10/17/2016 10/23/2016 Inactive prednisone 10 mg tablet RxNorm: 921055 Tablet(s) PO UD 10/17/2016 11/28/2016 Inactive 6,5,4,3,2,1 tramadol 50 mg tablet RxNorm: 132205 1 Tablet(s) PO Q4H as needed for pain 09/28/2016 11/06/2016 In active [SAVINGS FOR UNINSURED PATIENTS -- BIN:0 28927, PCN: ASPROD1, Group: AME08, ID# [id number], Process claim through [employer], for questions: . THIS IS NOT INSURANCE.] ProAir HFA 90 mcg/ac tuation aerosol inhaler RxNorm: 989958 INHALE 1 TO 2 PUFFS F OUR TIMES A DAY NEEDED FOR ASTHMA 09/15/2016 11/14/2016 Inactive doxycycline hyclate 100 mg tablet RxNorm: 553529 1 Tablet(s) PO BID 09/15/2016 09/24/2016 Inactive doxycycline hyclate 100 mg tablet RxNorm: 760756 1 Tablet(s) PO BID 07/29/2016 08/07/2016 Inactive tramadol 50 mg tablet RxNorm: 532389 1 Tablet(s) PO Q4H as needed for pain 07/29/2016 09/06/2016 In active [SAVINGS FOR UNINSURED PATIENTS -- BIN:0 85270, PCN: ASPROD1, Group: AME08, ID# [id number], Process claim through [employer], for questions: . THIS IS NOT INSURANCE.] lorazepam 1 mg tablet RxNorm: 059045 Tablet(s) TAKE TWO TABLETS BY MOUTH AT B EDTIME AND ONE TABLET DAILY NEEDED 07/29/2016 10/26/2016 Inactive (Response to an electronic controlled substance refill request - RxReferenceNumber: [id number]) levothyroxine 125 mc g tablet RxNorm: 487868 1 Tablet(s) PO daily 06/29/2016 06/29/2016 Inactive levothyroxine 137 mc g tablet RxNorm: 029864 1 Tablet(s) PO daily 06/29/2016 12/25/2016 Inactive ketoconazole 2 % [facility] [place] RxNorm: 112551 1 Application TOP BID 06/29/2016 07/03/2016 Inactive tramadol 50 mg tablet RxNorm: 939697 1 Tablet(s) PO Q4H as needed for pain 06/16/2016 07/25/2016 In active [SAVINGS FOR UNINSURED PATIENTS -- BIN:0 52362, PCN: ASPROD1, Group: [id number], ID# [id number], Process claim through [employer], for questions: . THIS IS NOT INSURANCE.] Bactroban 2 % topica l ointment RxNorm: 370452 APPLY TO AFFECTED ARE A(S) TWO TIMES A DAY 06/16/2016 04/16/2017 Inactive fluconazole 150 mg t ablet RxNorm: 289766 1 Tablet(s) PO daily 06/01/2016 06/05/2016 Inactive gentamicin 0.1 % top ical ointment RxNorm: 126876 1 Application TOP QID 05/12/2016 05/25/2016 In active metronidazole 500 mg tablet RxNorm: 943483 1 Tablet(s) PO TID 05/11/2016 05/24/2016 Inactive gentamicin 0.1 % top ical ointment RxNorm: 141399 1 Application TOP QID 05/11/2016 05/11/2016 In active doxycycline hyclate 100 mg tablet RxNorm: 361109 1 Tablet(s) PO BID 05/11/2016 05/24/2016 Inactive lorazepam 1 mg tablet RxNorm: 591191 Tablet(s) TAKE TWO TABLETS BY MOUTH AT B EDTIME AND ONE TABLET DAILY NEEDED 05/02/2016 07/28/2016 Inactive (Response to an electronic controlled substance refill request - RxReferenceNumber: [id number]) Diflucan 150 mg tablet RxNorm: 243128 1 Tablet(s) PO daily x5 days then 1 x we ekly x 4 weeks. 05/02/2016 04/10/2017 Inactive Diflucan 150 mg tablet RxNorm: 330609 1 Tablet(s) PO every other day 04/19/2016 04/28/2016 In active Diflucan 150 mg tablet RxNorm: 526726 1 Tablet(s) PO every other day 04/19/2016 04/18/2016 In active Diflucan 150 mg tablet RxNorm: 724671 1 Tablet(s) PO daily 04/05/2016 04/11/2016 Inactive mupirocin 2 % topica l ointment RxNorm: 589986 1 Application TOP BID 04/05/2016 05/04/2016 Inactive tramadol 50 mg tablet RxNorm: 734979 1 Tablet(s) PO Q4H as needed for pain 04/05/2016 05/14/2016 In active [SAVINGS FOR UNINSURED PATIENTS -- BIN:0 23669, PCN: ASPROD1, Group: AME08, ID# [id number], Process claim through [employer], for questions: . THIS IS NOT INSURANCE.] prednisone 10 mg tablet RxNorm: 993022 Tablet(s) PO UD 04/01/2016 09/26/2016 Inactive 6,5,4,3,2,1 levothyroxine 137 mc g tablet RxNorm: 969746 1 Tablet(s) PO daily 03/21/2016 03/20/2016 Inactive levothyroxine 137 mc g tablet RxNorm: 729092 1 Tablet(s) PO daily 03/21/2016 06/28/2016 Inactive Advair Diskus 100 mc g-50 mcg/dose powder for inhalation RxNorm: 6976526 1 Puff(s) INH BID 01/26/2016 05/24/2016 Inactive tramadol 50 mg tablet RxNorm: 975606 1 Tablet(s) PO Q4H as needed for pain 01/26/2016 03/05/2016 In active [SAVINGS FOR UNINSURED PATIENTS -- BIN:0 07269, PCN: ASPROD1, Group: [id number], ID# [id number], Process claim through [employer], for questions: . THIS IS NOT INSURANCE.] Bactroban 2 % topica l ointment RxNorm: 707296 APPLY TO AFFECTED ARE A(S) TWO TIMES A DAY 12/22/2015 12/31/2015 Inactive Bactrim DS 800 mg-16 0 mg tablet RxNorm: 032157 TAKE ONE TABLET BY [facility] TWICE A DAY 12/22/2015 04/18/2016 In active Bactrim DS 800 mg-16 0 mg tablet RxNorm: 087856 1 Tablet(s) PO BID 12/21/2015 12/30/2015 Inactive lisinopril 20 mg-hyd rochlorothiazide 25 mg tablet RxNorm: 882827 1 Tablet(s) PO daily 12/21/2015 06/17/2016 Inactive [SAVINGS FOR UNINSURED PATIENTS -- BIN:0 47777, PCN: ASPROD1, Group: AME08, ID# [id number], Process claim through [employer], for questions: . THIS IS NOT INSURANCE.] tramadol 50 mg tablet RxNorm: 908754 1 Tablet(s) PO Q4H as needed for pain 12/03/2015 01/11/2016 In active [SAVINGS FOR UNINSURED PATIENTS -- BIN:0 13755, PCN: ASPROD1, Group: AME08, ID# [id number], Process claim through [employer], for questions: . THIS IS NOT INSURANCE.] lorazepam 1 mg tablet RxNorm: 712681 Tablet(s) TAKE TWO TABLETS BY MOUTH AT B EDTIME AND ONE TABLET DAILY NEEDED 11/26/2015 06/27/2018 Inactive (Response to an electronic controlled substance refill request - RxReferenceNumber: [id number]) Bactrim DS 800 mg-16 0 mg tablet RxNorm: 154043 1 Tablet(s) PO BID 11/25/2015 12/04/2015 Inactive levothyroxine 150 mc g tablet RxNorm: 645455 1 Tablet(s) PO daily 11/25/2015 03/20/2016 Inactive Bactroban 2 % topica l ointment RxNorm: 580392 1 Application TOP BID 10/12/2015 10/21/2015 Inactive Bactrim DS 800 mg-16 0 mg tablet RxNorm: 244755 1 Tablet(s) PO BID 09/07/2015 09/06/2015 Inactive Bactrim DS 800 mg-16 0 mg tablet RxNorm: 453398 1 Tablet(s) PO BID 09/07/2015 09/16/2015 Inactive lorazepam 1 mg tablet RxNorm: 102870 Tablet(s) TAKE TWO TABLETS BY MOUTH AT B EDTIME AND ONE TABLET DAILY NEEDED 08/28/2015 11/24/2015 Inactive (Response to an electronic controlled substance refill request - RxReferenceNumber: [id number]) levothyroxine 175 mc g tablet RxNorm: 977899 1 Tablet(s) PO daily 08/24/2015 11/24/2015 Inactive tramadol 50 mg tablet RxNorm: 532804 1 Tablet(s) PO Q4H as needed for pain 08/24/2015 09/11/2017 In active [SAVINGS FOR UNINSURED PATIENTS -- BIN:0 01857, PCN: ASPROD1, Group: AME08, ID# [id number], Process claim through [employer], for questions: . THIS IS NOT INSURANCE.] lisinopril 20 mg-hyd rochlorothiazide 25 mg tablet RxNorm: 142750 1 Tablet(s) PO daily TAKE 1 TABLET BY MOUTH DAILY 08/24/2015 06/27/2018 Inactive ProAir HFA 90 mcg/ac tuation aerosol inhaler RxNorm: 998946 1-2 Puff(s) INH PRN I NHALE ONE TO TWO PUFFS BY MOUTH FOUR TIMES A DAY NEEDED FOR ASTHMA 08/24/2015 12/01/2015 In active ProAir HFA 90 mcg/ac tuation aerosol inhaler RxNorm: 7120384 INHALE ONE TO TWO PU FFS BY MOUTH FOUR TIMES A DAY NEEDED FOR ASTHMA 08/17/2015 08/23/2015 Inactive Advair Diskus 250 mc g-50 mcg/dose powder for inhalation RxNorm: 1940610 1 Puff(s) INH BID 07/20/2015 07/19/2015 Inactive Advair Diskus 250 mc g-50 mcg/dose powder for inhalation RxNorm: 4514404 1 Puff(s) INH BID 07/20/2015 11/16/2015 Inactive tramadol 50 mg tablet RxNorm: 097481 1 Tablet(s) PO Q4H as needed for pain 07/10/2015 08/17/2015 In active [SAVINGS FOR UNINSURED PATIENTS -- BIN:0 85116, PCN: ASPROD1, Group: [id number], ID# [id number], Process claim through [employer], for questions: . THIS IS NOT INSURANCE.] Zithromax Z-Linus 250 mg tablet RxNorm: 785499 1 Tablet(s) PO UD 07/10/2015 01/18/2016 Inactive Keflex 500 mg capsule RxNorm: 795500 1 Capsule(s) PO TID 06/01/2015 06/07/2015 Inactive mupirocin 2 % topica l ointment RxNorm: 146058 1 Application TOP TID 06/01/2015 06/10/2015 Inactive lisinopril 20 mg-hyd rochlorothiazide 25 mg tablet RxNorm: 405973 TAKE 1 TABLET BY MOUT H DAILY 05/30/2015 08/23/2015 Inactive lisinopril 20 mg-hyd rochlorothiazide 25 mg tablet RxNorm: 911269 1 Tablet(s) PO daily 05/29/2015 11/24/2015 Inactive [SAVINGS FOR UNINSURED PATIENTS -- BIN:0 82889, PCN: ASPROD1, Group: AME08, ID# [id number], Process claim through [employer], for questions: . THIS IS NOT INSURANCE.] lorazepam 1 mg tablet RxNorm: 813631 Tablet(s) TAKE TWO TABLETS BY MOUTH AT B EDTIME AND ONE TABLET DAILY NEEDED 04/17/2015 07/13/2015 Inactive (Response to an electronic controlled substance refill request - RxReferenceNumber: [id number]) levothyroxine 200 mc g tablet RxNorm: 956420 1 Tablet(s) PO daily 03/12/2015 08/23/2015 Inactive [SAVINGS FOR UNINSURED PATIENTS -- BIN:0 51569, PCN: ASPROD1, Group: AME08, ID# [id number], Process claim through [employer], for questions: . THIS IS NOT INSURANCE.] lisinopril 20 mg-hyd rochlorothiazide 25 mg tablet RxNorm: 920675 1 Tablet(s) PO daily 03/11/2015 05/28/2015 Inactive [SAVINGS FOR UNINSURED PATIENTS -- BIN:0 56931, PCN: ASPROD1, Group: AME08, ID# [id number], Process claim through [employer], for questions: . THIS IS NOT INSURANCE.] levothyroxine 175 mc g tablet RxNorm: 099671 1 Tablet(s) PO daily 03/09/2015 03/11/2015 Inactive recheck blood in 3 months- THIS IS CORRE CT DOSAGE levothyroxine 175 mc g tablet RxNorm: 920846 1 Tablet(s) PO daily 03/09/2015 03/08/2015 Inactive recheck blood in 3 months levothyroxine 150 mc g tablet RxNorm: 290347 1 Tablet(s) PO daily 03/09/2015 03/08/2015 Inactive recheck blood in 3 months lorazepam 1 mg tablet RxNorm: 364937 TAKE TWO TABLETS BY MOUTH AT BEDTIME AND ONE TABLET DAILY NEEDED 12/25/2014 01/22/2015 Inactive (Response to an electronic controlled substance refill request - RxReferenceNumber: [id number]) lorazepam 1 mg tablet RxNorm: 358692 Tablet(s) TAKE TWO TABLETS BY MOUTH EVER Y NIGHT AT BEDTIME AND TAKE ONE TABLET BY MOUTH DAILY NEEDED 12/23/2014 12/25/2014 Inactive (Response to an electronic controlled north bstance refill request - RxReferenceNumber: [id number]) levothyroxine 150 mc g tablet RxNorm: 017714 1 Tablet(s) PO daily 12/12/2014 03/08/2015 Inactive recheck blood in 3 months Diflucan 150 mg tablet RxNorm: 860669 1 Tablet(s) PO every other day (start af ter finished with Cipro) 11/17/2014 08/23/2015 Inactive tramadol 50 mg tablet RxNorm: 606655 1 Tablet(s) PO Q4H as needed for pain 11/10/2014 12/17/2014 In active [SAVINGS FOR UNINSURED PATIENTS -- BIN:0 30102, PCN: ASPROD1, Group: AME08, ID# [id number], Process claim through [employer], for questions: . THIS IS NOT INSURANCE.] Cipro 500 mg tablet RxNorm: 336614 1 Tablet(s) PO BID 10/23/2014 10/29/2014 Inactive Flagyl 500 mg tablet RxNorm: 439294 1 Tablet(s) PO TID 10/23/2014 10/29/2014 Inactive Cipro 500 mg tablet RxNorm: 238707 1 Tablet(s) PO BID 10/23/2014 10/22/2014 Inactive Flagyl 500 mg tablet RxNorm: 810089 1 Tablet(s) PO TID 10/23/2014 10/22/2014 Inactive Diflucan 150 mg tablet RxNorm: 435944 1 Tablet(s) PO every other day (start af ter finished with Cipro) 10/23/2014 11/16/2014 Inactive lorazepam 1 mg tablet RxNorm: 729467 TAKE TWO TABLETS BY MOUTH EVERY NIGHT AT BEDTIME AND TAKE ONE TABLET BY MOUTH DAILY NEEDED 10/21/2014 10/21/2014 Inactive (Response to an electronic controlled north bstance refill request - RxReferenceNumber: [id number]) lorazepam 1 mg tablet RxNorm: 491978 TAKE TWO TABLETS BY MOUTH EVERY NIGHT AT BEDTIME AND TAKE ONE TABLET BY MOUTH DAILY NEEDED 10/21/2014 11/18/2014 Inactive (Response to an electronic controlled north bstance refill request - RxReferenceNumber: [id number]) lorazepam 1 mg tablet RxNorm: 212027 Tablet(s) TAKE TWO TABLETS BY MOUTH AT B EDTIME, ALSO TAKE ONE TABLET BY MOUTH DAILY NEEDED 10/13/2014 10/21/2014 Inactive (Res ponse to an electronic controlled substance refill request - RxReferenceNumber: [id number]) ProAir HFA 90 mcg/ac tuation aerosol inhaler RxNorm: 4819944 1-2 inhale INH QID a s needed ASTHMA 10/13/2014 12/26/2014 Inactive ProAir HFA 90 mcg/ac tuation aerosol inhaler RxNorm: 8350693 1-2 inhale INH QID a s needed ASTHMA 09/18/2014 10/12/2014 Inactive meloxicam 7.5 mg tablet RxNorm: 357854 1 Tablet(s) PO daily 09/18/2014 03/10/2015 Inactive [SAVINGS FOR UNINSURED PATIENTS -- BIN:[id number], PCN: [id number], Group: [id number], ID# [id number], Process claim through [employer], for questions: . THIS IS NOT INSURANCE.] sulfamethoxazole 800 mg-trimethoprim 160 mg tablet RxNorm: 168186 1 Tablet(s) PO BID 09/18/2014 10/07/2014 Inactive levothyroxine 175 mc g tablet RxNorm: 772766 1 Tablet(s) PO daily 09/17/2014 12/11/2014 Inactive levothyroxine 175 mc g tablet RxNorm: 908767 1 Tablet(s) PO daily 09/17/2014 09/16/2014 Inactive lorazepam 1 mg tablet RxNorm: 732705 Tablet(s) TAKE TWO TABLETS BY MOUTH AT B EDTIME, ALSO TAKE ONE TABLET BY MOUTH DAILY NEEDED 09/12/2014 10/11/2014 Inactive (Res ponse to an electronic controlled substance refill request - RxReferenceNumber: [id number]) lorazepam 1 mg tablet RxNorm: 154497 TAKE TWO TABLETS BY MOUTH AT BEDTIME, AL SO TAKE ONE TABLET BY MOUTH DAILY NEEDED 09/08/2014 09/11/2014 Inactive (Res ponse to an electronic controlled substance refill request - RxReferenceNumber: [id number]) meloxicam 7.5 mg tablet RxNorm: 747023 1 Tablet(s) PO daily 09/01/2014 09/17/2014 Inactive [SAVINGS FOR UNINSURED PATIENTS -- BIN:0 91793, PCN: ASPROD1, Group: [id number], ID# [id number], Process claim through MedImpact, for questions: . THIS IS NOT INSURANCE.] lisinopril 20 mg-hyd rochlorothiazide 25 mg tablet RxNorm: 009433 1 Tablet(s) PO daily 09/01/2014 12/29/2014 Inactive [SAVINGS FOR UNINSURED PATIENTS -- BIN:0 25383, PCN: ASPROD1, Group: AME08, ID# [id number], Process claim through MedImpact, for questions: . THIS IS NOT INSURANCE.] tramadol 50 mg tablet RxNorm: 435572 1 Tablet(s) PO Q4H as needed for pain 08/20/2014 11/07/2014 In active [SAVINGS FOR UNINSURED PATIENTS -- BIN:0 29320, PCN: ASPROD1, Group: [id number], ID# [id number], Process claim through MedImpact, for questions: . THIS IS NOT INSURANCE.] meloxicam 7.5 mg tablet RxNorm: 131900 1 Tablet(s) PO daily 08/14/2014 08/31/2014 Inactive [SAVINGS FOR UNINSURED PATIENTS -- BIN:0 29997, PCN: ASPROD1, Group: [id number], ID# [id number], Process claim through MedIMailana, for questions: . THIS IS NOT INSURANCE.] lorazepam 1 mg tablet RxNorm: 467090 2 Tablet(s) PO QHS and 1 tab qd PRN 08/01/2014 09/08/2014 In active [SAVINGS FOR UNINSURED PATIENTS -- BIN:0 01051, PCN: ASPROD1, Group: [id number], ID# [id number], Process claim through MedImpact, for questions: . THIS IS NOT INSURANCE.] levothyroxine 200 mc g tablet RxNorm: 749134 1 Tablet(s) PO daily 07/31/2014 09/16/2014 Inactive [SAVINGS FOR UNINSURED PATIENTS -- BIN:0 29255, PCN: ASPROD1, Group: [id number], ID# [id number], Process claim through MedImpact, for questions: . THIS IS NOT INSURANCE.] lorazepam 1 mg tablet RxNorm: 445361 2 Tablet(s) PO QHS and 1 tab qd PRN No Start Date 07/31/2014 Inactive Phenergan VC-Codeine oral RxNorm: 679902 oral No S tart Date 11/26/2017 Inactive meloxicam 7.5 mg tablet RxNorm: 416916 1 Tablet(s) PO daily No Start Date 08/13/2014 Inactive lisinopril 20 mg-hyd rochlorothiazide 25 mg tablet RxNorm: 605028 1 Tablet(s) PO daily No Start Date 08/31/2014 Inactive levothyroxine 200 mc g tablet RxNorm: 639040 1 Tablet(s) PO daily No Start Date 07/30/2014 Inactive Diflucan 150 mg tablet RxNorm: 535343 1 Tablet(s) PO every other day No Start Date 10/22/2014 Inactive Zithromax Z-Linus 250 mg tablet RxNorm: 907899 1 Tablet(s) PO UD No Start Date 07/09/2015 Inactive tramadol 50 mg tablet RxNorm: 092136 1 Tablet(s) PO Q6 as needed No Start Date 08/19/2014 Inactive Medication Administered Medication Codes Instruc tions Start Date Status Kenalog 40 mg/mL suspension for injection RxNorm: 7687996 1Milliliter 06/14/2017 N o longer Active Kenalog 40 mg/mL suspension for injection RxNorm: 4299959 1Milliliter 03/27/2017 N o longer Active Kenalog 40 mg/mL suspension for injection RxNorm: 7763587 Milliliter 12/07/2016 No longer Active Kenalog 40 mg/mL suspension for injection RxNorm: 1725968 Milliliter 11/28/2016 No longer Active Immunizations Vaccine [...] Ord30 C/HDL 4.1 Ratio 10/24/2018 Comp Metabolic Pwt978 NA 141 mEq/L 10/24/2018 Comp Metabolic Viz470 K 3.7 mEq/L 10/24/2018 Comp Metabolic Sjx892 CL 103 mEq/L 10/24/2018 Comp Metabolic Xlm566 CO2 30.0 mEq/L 10/24/2018 Comp Metabolic Dim622 AN ION GAP 12 10/24/2018 Comp Metabolic Dkj267 GL UCOSE 98 mg/dL 10/24/2018 Comp Metabolic Vqm550 Cr eat 0.8 mg/dL 10/24/2018 Comp Metabolic Udo033 eG FR 71 ml/min/1.73m2 10/24 Comp Metabolic Rss842 BUN 12 mg/dL 10/24/2018 Comp Metabolic Aop499 B/ C Ratio 14.5 Ratio 10/24/2018 Comp Metabolic Flm556 CA LCIUM 9.2 mg/dL 10/24/2018 Comp Metabolic Fbf158 AL K PHOS 76 U/L 10/24/2018 Comp Metabolic Era495 T(SGOT) 12 U/L 10/24/2018 Comp Metabolic Efv907 AL T(SGPT) 9 U/L 10/24/2018 Comp Metabolic Zrk719 BI LI T 0.5 mg/dL 10/24/2018 Comp Metabolic Zof758 AL BUMIN 4.3 g/dL 10/24/2018 Comp Metabolic Xqc902 TP RO 6.5 g/dL 10/24/2018 Comp Metabolic Wwt854 GL OB 2.2 g/dL 10/24/2018 Comp Metabolic Eaf101 A/ G Ratio 2.0 Ratio 10/24/2018 Comp Metabolic Khs622 Os mo 281 mOsmo 10/24/2018 Free T4 Fom408 FREE T4 0.76 ng/dL 10/24/2018 Cbc With [...] 90.9 fl 10/24/2018 Cbc With Differential Ord2 Randolph% 8.4 % 10/24/2018 Cbc With Differential Ord2 [...] 1.71 K/ul 10/24/2018 Cbc With Differential Ord2 Randolph ABS# 0.4 K/ul 10/24/2018 Cbc With Differential [...] 30.0 pg 04/04/2018 Cbc With Differential Ord2 Randolph% 10.9 % 04/04/2018 Cbc With Differential Ord2 [...] 1.42 K/ul 04/04/2018 Cbc With Differential Ord2 Randolph ABS# 0.6 K/ul 04/04/2018 Cbc With Differential Ord2 Eos ABS# 0.1 K/ul 04/04/2018 Cbc With Differential Ord2 Baso ABS# 0.0 K/ul 04/04/2018 Free T4 The126 FREE T4 1.25 ng/dL 04/04/2018 Tsh Ord6 [...] 25.9 % 11/28/2017 Cbc With Differential Ord2 Randolph% 10.1 % 11/28/2017 Cbc With Differential Ord2 [...] 1.33 K/ul 11/28/2017 Cbc With Differential Ord2 Randolph ABS# 0.5 K/ul 11/28/2017 Cbc With Differential Ord2 Eos ABS# 0.1 K/ul 11/28/2017 Cbc With Differential Ord2 Baso ABS# 0.0 K/ul 11/28/2017 Free T4 Ayp454 FREE T4 1.43 ng/dL 11/28/2017 Lipid Ord30 CHOL 186 mg/dL 11/28/2017 Lipid Ord30 HDL 54.0 mg/dl 11/28/2017 Lipid Ord30 TRIG 59 mg/dL 11/28/2017 Lipid Ord30 LDL 120 mg/dL 11/28/2017 Lipid Ord30 C/HDL 3.4 Ratio 11/28/2017 Comp Metabolic Ohr506 NA 141 mEq/L 11/28/2017 Comp Metabolic Vxd485 K 4.0 mEq/L 11/28/2017 Comp Metabolic Xrj842 CL 105 mEq/L 11/28/2017 Comp Metabolic Vjm720 CO2 29.0 mEq/L 11/28/2017 Comp Metabolic Peu919 AN ION GAP 11 11/28/2017 Comp Metabolic Dwp647 GL UCOSE 91 mg/dL 11/28/2017 Comp Metabolic Glm306 Cr eat 0.8 mg/dL 11/28/2017 Comp Metabolic Vuz582 eG FR 74 ml/min/1.73m2 11/28 Comp Metabolic Ahg707 BUN 15 mg/dL 11/28/2017 Comp Metabolic Rjp693 B/ C Ratio 18.8 Ratio 11/28/2017 Comp Metabolic Sbp519 CA LCIUM 8.6 mg/dL 11/28/2017 Comp Metabolic Etd374 AL K PHOS 76 U/L 11/28/2017 Comp Metabolic Mwj297 T(SGOT) 10 U/L 11/28/2017 Comp Metabolic App784 AL T(SGPT) 8 U/L 11/28/2017 Comp Metabolic Teq601 BI LI T 0.5 mg/dL 11/28/2017 Comp Metabolic Vgb780 AL BUMIN 4.0 g/dL 11/28/2017 Comp Metabolic Nsg129 TP RO 6.1 g/dL 11/28/2017 Comp Metabolic Jns167 GL OB 2.1 g/dL 11/28/2017 Comp Metabolic Ojv610 A/ G Ratio 1.9 Ratio 11/28/2017 Comp Metabolic Hco663 Os mo 282 mOsmo 11/28/2017 Tsh Ord6 TSH (3rd IS) 3.31 uIU/mL 11/28/2017 Tsh Ord6 hTSH II 1.45 uIU/mL 03/27/2017 Free T4 Lkl607 FREE T4 1.23 ng/dL 03/27/2017 Comp Metabolic Rgm091 NA 140 mEq/L 09/28/2016 Comp Metabolic Wbe243 K 3.9 mEq/L 09/28/2016 Comp Metabolic Sky564 CL 104 mEq/L 09/28/2016 Comp Metabolic Nvb108 CO2 28.0 mEq/L 09/28/2016 Comp Metabolic Nmm376 AN ION GAP 12 09/28/2016 Comp Metabolic Ket222 GL UCOSE 97 mg/dL 09/28/2016 Comp Metabolic Mvt396 Cr eat 0.8 mg/dL 09/28/2016 Comp Metabolic Foh564 eG FR 79 ml/min/1.73m2 09/28 Comp Metabolic Jnm255 BUN 13 mg/dL 09/28/2016 Comp Metabolic Cgq123 B/ C Ratio 17.1 Ratio 09/28/2016 Comp Metabolic Gru183 CA LCIUM 8.9 mg/dL 09/28/2016 Comp Metabolic Suw056 AL K PHOS 100 U/L 09/28/2016 Comp Metabolic Nzl750 T(SGOT) 12 U/L 09/28/2016 Comp Metabolic Mth947 AL T(SGPT) 9 U/L 09/28/2016 Comp Metabolic Bdw497 BI LI T 0.4 mg/dL 09/28/2016 Comp Metabolic Zir496 AL BUMIN 4.1 g/dL 09/28/2016 Comp Metabolic Wok641 TP RO 6.6 g/dL 09/28/2016 Comp Metabolic Fpy066 GL OB 2.5 g/dL 09/28/2016 Comp Metabolic Dtc029 A/ G Ratio 1.6 Ratio 09/28/2016 Comp Metabolic Zho995 Os mo 279 mOsmo 09/28/2016 Lipid Ord30 [...] 28.8 pg 09/28/2016 Cbc With Differential Ord2 Randolph% 7.2 % 09/28/2016 Cbc With Differential Ord2 [...] 1.41 K/ul 09/28/2016 Cbc With Differential Ord2 Randolph ABS# 0.5 K/ul 09/28/2016 Cbc With Differential Ord2 Eos ABS# 0.2 K/ul 09/28/2016 Cbc With Differential Ord2 Baso ABS# 0.0 K/ul 09/28/2016 Free T4 Kwl152 FREE T4 1.43 ng/dL 09/28/2016 Tsh Ord6 hTSH II 0.52 uIU/mL 09/28/2016 Tsh Ord6 hTSH II 0.47 uIU/mL 06/16/2016 Comp Metabolic Wdb236 NA 139 mEq/L 06/16/2016 Comp Metabolic Jqy629 K 4.3 mEq/L 06/16/2016 Comp Metabolic Zfe765 CL 105 mEq/L 06/16/2016 Comp Metabolic Fmx603 CO2 30.0 mEq/L 06/16/2016 Comp Metabolic Vmo756 AN ION GAP 8 06/16/2016 Comp Metabolic Lqp848 GL UCOSE 90 mg/dL 06/16/2016 Comp Metabolic Gxh647 Cr eat 0.7 mg/dL 06/16/2016 Comp Metabolic Grr325 eG FR 91 ml/min/1.73m2 06/16 Comp Metabolic Kyf773 BUN 15 mg/dL 06/16/2016 Comp Metabolic Bzw917 B/ C Ratio 22.4 Ratio 06/16/2016 Comp Metabolic Cks233 CA LCIUM 8.8 mg/dL 06/16/2016 Comp Metabolic Che886 AL K PHOS 79 U/L 06/16/2016 Comp Metabolic Wda351 T(SGOT) 13 U/L 06/16/2016 Comp Metabolic Vno517 AL T(SGPT) 11 U/L 06/16/2016 Comp Metabolic Ojg617 BI LI T 0.5 mg/dL 06/16/2016 Comp Metabolic Akh932 AL BUMIN 3.9 g/dL 06/16/2016 Comp Metabolic Hjb215 TP RO 6.1 g/dL 06/16/2016 Comp Metabolic Lue329 GL OB 2.2 g/dL 06/16/2016 Comp Metabolic Zsg464 A/ G Ratio 1.8 Ratio 06/16/2016 Comp Metabolic Nyw141 Os mo 278 mOsmo 06/16/2016 Lipid Ord30 [...] 28.9 pg 06/16/2016 Cbc With Differential Ord2 Randolph% 8.1 % 06/16/2016 Cbc With Differential Ord2 [...] 1.70 K/ul 06/16/2016 Cbc With Differential Ord2 Randolph ABS# 0.4 K/ul 06/16/2016 Cbc With Differential Ord2 Eos ABS# 0.2 K/ul 06/16/2016 Cbc With Differential Ord2 Baso ABS# 0.0 K/ul 06/16/2016 Free T4 Rlm982 FREE T4 1.42 ng/dL 06/16/2016 Free T4 Chi888 FREE T4 1.34 ng/dL 03/04/2016 Tsh Ord6 hTSH II 0.56 uIU/mL 03/04/2016 Tsh Ord6 hTSH II 0.98 uIU/mL 01/27/2016 Free T4 Wva856 FREE T4 1.19 ng/dL 01/27/2016 Free T4 Qru504 FREE T4 1.69 ng/dL 11/23/2015 Tsh Ord6 hTSH II 0.08 uIU/mL 11/23/2015 Lipid Ord30 CHOL 185 mg/dL 08/21/2015 Lipid Ord30 HDL 50.0 mg/dl 08/21/2015 Lipid Ord30 TRIG 88 mg/dL 08/21/2015 Lipid Ord30 LDL 117 mg/dL 08/21/2015 Lipid Ord30 C/HDL 3.7 Ratio 08/21/2015 Comp Metabolic Hdb661 NA 139 mEq/L 08/21/2015 Comp Metabolic Lgc215 K 4.3 mEq/L 08/21/2015 Comp Metabolic Bto976 CL 102 mEq/L 08/21/2015 Comp Metabolic Uim400 CO2 27.0 mEq/L 08/21/2015 Comp Metabolic Vht290 AN ION GAP 14 08/21/2015 Comp Metabolic Djn529 GL UCOSE 89 mg/dL 08/21/2015 Comp Metabolic Cvk580 Cr eat 0.7 mg/dL 08/21/2015 Comp Metabolic Qqf200 eG FR 85 ml/min/1.73m2 08/21 Comp Metabolic Vfs577 BUN 14 mg/dL 08/21/2015 Comp Metabolic Mov317 B/ C Ratio 19.7 Ratio 08/21/2015 Comp Metabolic Hxz170 CA LCIUM 9.5 mg/dL 08/21/2015 Comp Metabolic Dls922 AL K PHOS 123 U/L 08/21/2015 Comp Metabolic You083 T(SGOT) 13 U/L 08/21/2015 Comp Metabolic Toc591 AL T(SGPT) 10 U/L 08/21/2015 Comp Metabolic Mod615 BI LI T 0.4 mg/dL 08/21/2015 Comp Metabolic Jzc538 AL BUMIN 4.1 g/dL 08/21/2015 Comp Metabolic Tfp605 TP RO 6.8 g/dL 08/21/2015 Comp Metabolic Ubl849 GL OB 2.7 g/dL 08/21/2015 Comp Metabolic Vqd420 A/ G Ratio 1.5 Ratio 08/21/2015 Comp Metabolic Ygr225 Os mo 277 mOsmo 08/21/2015 Free T4 Qqo120 FREE T4 1.78 ng/dL 08/21/2015 Tsh Ord6 [...] Ord2 RDW 13.9 % 08/21/2015 Quick Strep Bci1366 Quic k Strep Negative 07/08/2015 Tsh Ord6 hTSH II 0.04 uIU/mL 05/20/2015 Free T4 Fqx290 FREE T4 1.50 ng/dL 05/20/2015 Review of [...] Procedure Codes Date DESTRUCT PREMALG LESION CPT-4: 17643 01/19/2018 URINALYSIS NONAUTO W /O SCOPE CPT-4: 86018 09/12/2017 TRIAMCINOLONE ACET I [place] NOS CPT-4: J3301 06/14/2017 THER/PROPH/DIAG INJ SC/IM CPT-4: 57165 06/14/2017 PRESCRIP TRANSMIT A ERX SY CPT-4: G8553 06/14/2017 TRIAMCINOLONE ACET I [place] NOS CPT-4: J3301 03/27/2017 THER/PROPH/DIAG INJ SC/IM CPT-4: 28555 12/07/2016 TRIAMCINOLONE ACET I [place] NOS CPT-4: J3301 12/07/2016 THER/PROPH/DIAG INJ SC/IM CPT-4: 49949 11/28/2016 TRIAMCINOLONE ACET I [place] NOS CPT-4: J3301 11/28/2016 Vital Signs Date Vital 10/30/2018 Blood Pressure 1: 144/70 Code: 8480-6 BMI: 37.0 Code: 89177-9 Heart Rate 1: 76 bpm Height: 5'6" SpO2: 96% Weight: 229 lbs 06/28/2018 Blood Pressure 1: 110/66 Code: 8480-6 BMI: 37.1 Code: 33034-7 Heart Rate 1: 73 bpm Height: 5'6" SpO2: 98% Weight: 230 lbs 04/04/2018 Blood Pressure 1: 128/76 Code: 8480-6 BMI: 37.9 Code: 95075-1 Heart Rate 1: 86 bpm Height: 5'6" SpO2: 98% Weight: 235 lbs 01/19/2018 Blood Pressure 1: 122/68 Code: 8480-6 Heart Rate 1: 78 bpm Height: 5'6" SpO2: 97% Weight: 01/05/2018 Blood Pressure 1: 138/78 Code: 8480-6 BMI: 38.4 Code: 43547-9 Heart Rate 1: 73 bpm Height: 5'6" SpO2: 95% Weight: 238 lbs 11/29/2017 Blood Pressure 1: 138/80 Code: 8480-6 BMI: 38.7 Code: 77472-9 Heart Rate 1: 71 bpm Height: 5'6" SpO2: 97% Weight: 240 lbs 10/25/2017 Blood Pressure 1: 136/72 Code: 8480-6 BMI: 38.7 Code: 93542-7 Heart Rate 1: 92 bpm Height: 5'6" SpO2: 98% Weight: 240 lbs 09/12/2017 Blood Pressure 1: 132/68 Code: 8480-6 BMI: 39.7 Code: 76315-1 Heart Rate 1: 76 bpm Height: 5'6" SpO2: 98% Weight: 246 lbs 06/14/2017 Blood Pressure 1: 130/80 Code: 8480-6 BMI: 39.4 Code: 50409-7 Heart Rate 1: 73 bpm Height: 5'6" SpO2: 95% Temperature: 36.9 (C ) / 98.5 (F) Weight: 244 lbs 05/10/2017 Blood Pressure 1: 128/68 Code: 8480-6 BMI: 38.7 Code: 82153-2 Heart Rate 1: 69 bpm Height: 5'6" SpO2: 97% Weight: 240 lbs 04/19/2017 Blood Pressure 1: 138/74 Code: 8480-6 BMI: 38.7 Code: 04298-8 Heart Rate 1: 73 bpm Height: 5'6" SpO2: 96% Weight: 240 lbs 03/27/2017 Blood Pressure 1: 142/84 Code: 8480-6 BMI: 38.7 Code: 62356-6 Heart Rate 1: 69 bpm Height: 5'6" SpO2: 97% Weight: 240 lbs 01/26/2017 Blood Pressure 1: 136/68 Code: 8480-6 Heart Rate 1: 64 bpm Height: 5'6" SpO2: 96% Weight: 12/07/2016 Blood Pressure 1: 130/72 Code: 8480-6 BMI: 39.7 Code: 94201-0 Heart Rate 1: 73 bpm Height: 5'6" SpO2: 93% Temperature: 36.8 (C ) / 98.3 (F) Weight: 246 lbs 11/28/2016 Blood Pressure 1: 138/60 Code: 8480-6 BMI: 39.7 Code: 28242-9 Heart Rate 1: 81 bpm Height: 5'6" SpO2: 97% Weight: 246 lbs 11/15/2016 Blood Pressure 1: 134/78 Code: 8480-6 BMI: 39.7 Code: 79112-3 Heart Rate 1: 75 bpm Height: 5'6" SpO2: 93% Temperature: 36.8 (C ) / 98.2 (F) Weight: 246 lbs 10/17/2016 Blood Pressure 1: 120/64 Code: 8480-6 BMI: 38.4 Code: 30151-1 Heart Rate 1: 69 bpm Height: 5'6" SpO2: 98% Temperature: 37.2 (C ) / 98.9 (F) Weight: 238 lbs 09/28/2016 Blood Pressure 1: 158/76 Code: 8480-6 BMI: 39.4 Code: 92479-1 Heart Rate 1: 71 bpm Height: 5'6" SpO2: 97% Weight: 244 lbs 06/29/2016 Blood Pressure 1: 124/60 Code: 8480-6 BMI: 38.7 Code: 73914-6 Heart Rate 1: 71 bpm Height: 5'6" SpO2: 98% Weight: 240 lbs 06/01/2016 Blood Pressure 1: 120/62 Code: 8480-6 BMI: 38.6 Code: 72320-5 Heart Rate 1: 76 bpm Height: 5'6" SpO2: 98% Weight: 239 lbs 05/11/2016 Blood Pressure 1: 140/80 Code: 8480-6 BMI: 38.1 Code: 64337-8 Heart Rate 1: 88 bpm Height: 5'6" SpO2: 97% Weight: 236 lbs 04/05/2016 Blood Pressure 1: 142/80 Code: 8480-6 BMI: 38.4 Code: 35042-2 Heart Rate 1: 96 bpm Height: 5'6" SpO2: 98% Weight: 238 lbs 04/01/2016 Blood Pressure 1: 136/88 Code: 8480-6 BMI: 39.2 Code: 05584-1 Heart Rate 1: 86 bpm Height: 5'6" SpO2: 96% Weight: 243 lbs 01/26/2016 Blood Pressure 1: 124/76 Code: 8480-6 BMI: 39.2 Code: 69842-1 Heart Rate 1: 76 bpm Height: 5'6" SpO2: 97% Weight: 243 lbs 12/21/2015 Blood Pressure 1: 120/64 Code: 8480-6 BMI: 37.0 Code: 98156-3 Heart Rate 1: 98 bpm Height: 5'6" SpO2: 97% Weight: 229 lbs 10/12/2015 Blood Pressure 1: 150/64 Code: 8480-6 BMI: 37.4 Code: 78449-6 Heart Rate 1: 70 bpm Height: 5'6" SpO2: 94% Weight: 232 lbs 08/24/2015 Blood Pressure 1: 128/74 Code: 8480-6 BMI: 36.8 Code: 45767-4 Heart Rate 1: 88 bpm Height: 5'6" SpO2: 94% Temperature: 36.8 (C ) / 98.3 (F) Weight: 228 lbs 06/01/2015 Blood Pressure 1: 134/68 Code: 8480-6 BMI: 36.0 Code: 17275-6 Heart Rate 1: 70 bpm Height: 5'6" SpO2: 98% Weight: 223 lbs 05/21/2015 Blood Pressure 1: 126/72 Code: 8480-6 BMI: 35.2 Code: 66661-0 Heart Rate 1: 63 bpm Height: 5'6" SpO2: 95% Weight: 218 lbs 5 oz 03/26/2015 Blood Pressure 1: 140/62 Code: 8480-6 BMI: 35.3 Code: 48154-2 Heart Rate 1: 68 bpm Height: 5'6" Weight: 219 lbs 03/11/2015 Blood Pressure 1: 130/80 Code: 8480-6 BMI: 34.9 Code: 32611-5 Heart Rate 1: 76 bpm Height: 5'6" Temperature: 37.1 (C ) / 98.7 (F) Weight: 216 lbs 12/11/2014 Blood Pressure 1: 134/62 Code: 8480-6 BMI: 34.2 Code: 51396-5 Heart Rate 1: 72 bpm Height: 5'6" Weight: 212 lbs 09/18/2014 Blood Pressure 1: 148/80 Code: 8480-6 BMI: 34.7 Code: 01420-5 Heart Rate 1: 68 bpm Height: 5'6" Weight: 215 lbs 07/31/2014 Blood Pressure 1: 124/72 Code: 8480-6 BMI: 36.2 Code: 47903-4 Heart Rate 1: 68 bpm Height: 5'6" [...] Severity mi ld 09/28/2016 None 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 09/28/2016 None hypothyroid Onset and Resolution [...] Severity mi ld 06/01/2016 None 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 06/01/2016 None hypothyroid Onset and Resolution [...] and Resolution resolved 04/05/2016 None 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 P ATIENT, LEVEL IV Diagnosis: Essential (primary) hypertension[ICD10: I10] Diagnosis: Hypothyroidism, unspecified[ICD10: E03.9] Diagnosis: Low back pain[ICD10: M54.5] [facility] CPT- 4: 97763 10/30/2018 [id number] 77023 EST. P ATIENT, LEVEL III Diagnosis: Acute recurrent maxillary sinusitis[ICD10: J01.01] Diagnosis: Other mucopurulent conjunctivitis, left eye[ICD10: H10.022] Diagnosis: Other allergic rhinitis[ICD10: J30.89] [facility] CPT-4: 44155 06/28/2018 [id number] EST. PATIENT, LEVEL IV Diagnosis: Essential (primary) hypertension[ICD10: I10] Diagnosis: Other specified hypothyroidism[ICD10: E03.8] Diagnosis: Other specified anemias[ICD10: D64.89] Diagnosis: Localized edema[ICD10: R60.0] [facility] CPT-4: 97824 04/04/2018 ([id number]) 06865 EST. P ATIENT, LEVEL III Diagnosis: Mild persistent asthma, uncomplicated[ICD10: J45.30] Diagnosis: Actinic keratosis[ICD10: L57.0] Lynn Finn MD, [facility] CPT- 4: 03499 01/05/2018 ([id number]) Miscellaneou s no charge Diagnosis: Essential (primary) hypertension[ICD10: I10] Damari Finn MD, [facility] CPT-4: 97707 12/12/2017 19368 EST. PATIENT, LEVEL III Diagnosis: Essential (primary) hypertension[ICD10: I10] Diagnosis: Atrophy of thyroid (acquired)[ICD10: E03.4] Diagnosis: Low back pain[ICD10: M54.5] Mishel Finn MD, [facility] CPT-4: 49743 11/29/2017 77129 EST. PATIENT, LEVEL III Diagnosis: Pain in left hip[ICD10: M25.552] Mishel Finn MD, [facility] CPT-4: 96479 10/25/2017 94611 EST. PATIENT, LEVEL IV Diagnosis: Localized edema[ICD10: R60.0] Mishel Finn MD, [facility] CPT-4: 23705 09/12/2017 13817 EST. PATIENT, LEVEL IV Diagnosis: Mild persistent asthma with (acute) exacerbation[ICD10: J45.31] Mishel Finn MD, [facility] CPT-4: 76380 06/14/2017 95886 EST. PATIENT, LEVEL III Diagnosis: Localized edema[ICD10: R60.0] Diagnosis: Mild persistent asthma, uncomplicated[ICD10: J45.30] Mishel Finn MD, [facility] CPT-4: 53800 05/10/2017 22410 EST. PATIENT, LEVEL III Diagnosis: Mild persistent asthma with (acute) exacerbation[ICD10: J45.31] Mishel Finn MD, [facility] CPT-4: 27472 04/19/2017 ([id number]) 45922 EST. P ATIENT, LEVEL IV Diagnosis: Contusion of left wrist, initial encounter[ICD10: S60.212A] Diagnosis: Hypothyroidism, unspecified[ICD10: E03.9] Diagnosis: Mild persistent asthma with (acute) exacerbation[ICD10: J45.31] Diagnosis: Low back pain[ICD10: M54.5] Lynn Finn MD, [facility] CPT- 4: 08114 03/27/2017 ([id number]) 50173 EST. P ATIENT, LEVEL IV Diagnosis: Essential (primary) hypertension[ICD10: I10] Diagnosis: Atrophy of thyroid (acquired)[ICD10: E03.4] Diagnosis: Low back pain[ICD10: M54.5] Damari Finn MD, [facility] CPT-4: 49352 01/26/2017 46460 EST. PATIENT, LEVEL III Diagnosis: Other allergic rhinitis[ICD10: J30.89] Diagnosis: Mild persistent asthma with (acute) exacerbation[ICD10: J45.31] Mishel Finn MD, [facility] CPT-4: 61710 12/07/2016 60736 EST. PATIENT, LEVEL III Diagnosis: Mild persistent asthma with (acute) exacerbation[ICD10: J45.31] Mishel Finn MD, [facility] CPT-4: 16019 11/28/2016 39440 EST. PATIENT, LEVEL III Diagnosis: Mild persistent asthma with (acute) exacerbation[ICD10: J45.31] Diagnosis: Acute bronchitis due to other specified organisms[ICD10: J20.8] Mishel Finn MD, [facility] CPT-4: 37680 11/15/2016 80433 EST. PATIENT, LEVEL IV Diagnosis: Other acute sinusitis[ICD10: J01.80] Diagnosis: Other allergic rhinitis[ICD10: J30.89] Diagnosis: Mild persistent asthma with (acute) exacerbation[ICD10: J45.31] Mishel Finn MD, [facility] CPT-4: 72449 10/17/2016 ([id number]) 39922 EST. P ATIENT, LEVEL IV Diagnosis: Essential (primary) hypertension[ICD10: I10] Diagnosis: Low back pain[ICD10: M54.5] Damari Finn MD, [facility] CPT-4: 78551 09/28/2016 96973 EST. PATIENT, LEVEL III Diagnosis: Tinea barbae and tinea capitis[ICD10: B35.0] Diagnosis: Other specified hypothyroidism[ICD10: E03.8] Mishel Finn MD, [facility] CPT-4: 30668 06/29/2016 ([id number]) 29581 EST. P ATIENT, LEVEL IV Diagnosis: Essential (primary) hypertension[ICD10: I10] Diagnosis: Atrophy of thyroid (acquired)[ICD10: E03.4] Diagnosis: Rash and other nonspecific skin eruption[ICD10: R21] Damari Finn MD, [facility] CPT-4: 22729 06/01/2016 ([id number]) 08948 EST. P ATIENT, LEVEL III Diagnosis: Cellulitis of groin[ICD10: L03.314] Damari Finn MD, [facility] CPT- 4: 28760 05/11/2016 ([id number]) [id number] EST. P ATIENT, LEVEL IV Diagnosis: Hypothyroidism, unspecified[ICD10: E03.9] Diagnosis: Candidiasis of vulva and vagina[ICD10: B37.3] Diagnosis: Essential (primary) hypertension[ICD10: I10] Diagnosis: Low back pain[ICD10: M54.5] Lynn Finn MD, [facility] CPT- 4: 33478 04/05/2016 [id number] EST. PATIENT, LEVEL III Diagnosis: Other acute sinusitis[ICD10: J01.80] Diagnosis: Rash and other nonspecific skin eruption[ICD10: R21] Mishel Finn MD, [facility] CPT-4: 23068 04/01/2016 ([id number]) [id number] EST. P ATIENT, LEVEL IV Diagnosis: Essential (primary) hypertension[ICD10: I10] Diagnosis: Hypothyroidism, unspecified[ICD10: E03.9] Diagnosis: Low back pain[ICD10: M54.5] Diagnosis: Other obesity due to excess calories[ICD10: E66.09] Lynn Finn MD, [facility] CPT-4: 76070 01/26/2016 [id number] EST. PATIENT, LEVEL IV Diagnosis: Essential (primary) hypertension[ICD10: I10] Diagnosis: Cutaneous abscess of face[ICD10: L02.01] Mishel Finn MD, [facility] CPT-4: 74704 12/21/2015 ([id number]) 41504 EST. P ATIENT, LEVEL III Diagnosis: Cutaneous abscess of groin[ICD10: L02.214] Diagnosis: Hypothyroidism, unspecified[ICD10: E03.9] Lynn Finn MD, [facility] CPT-4: 82044 10/12/2015 ([id number]) 07026 EST. P ATIENT, LEVEL III Diagnosis: Essential (primary) hypertension[ICD10: I10] Diagnosis: Hypothyroidism, unspecified[ICD10: E03.9] Diagnosis: Allergic rhinitis, unspecified[ICD10: J30.9] Lynn Finn MD, [facility] CPT-4: 90988 08/24/2015 ([id number]) 39936 EST. P ATIENT, LEVEL III Diagnosis: Skin infection[ICD9: 686.9] Damari Finn MD, [facility] CPT-4: 87969 06/01/2015 ([id number]) 28518 EST. P ATIENT, LEVEL III Diagnosis: Hypothyroidism[ICD9: 244.9] Diagnosis: ESSENTIAL HYPERTENSION[ICD9: 401.9] Damari Finn MD, [facility] CPT- 4: 01539 05/21/2015 ([id number]) 76228 EST. P ATIENT, LEVEL III Diagnosis: Hypothyroidism[ICD9: 244.9] Diagnosis: Fingernail abnormalities[ICD9: 703.8] Lynn Finn MD, [facility] CPT-4: 46726 03/26/2015 ([id number]) 76029 EST. P ATIENT, LEVEL II Diagnosis: Hypothyroidism[ICD9: 244.9] Mar[facility]za Finn MD, [facility] [place] CPT-4: 86279 03/11/2015 ([id number]) [id number] EST. P ATIENT, LEVEL IV Diagnosis: ESSENTIAL HYPERTENSION[ICD9: 401.9] Diagnosis: Low back pain[ICD9: 724.2] Diagnosis: Hypothyroidism[ICD9: 244.9] Damari Finn MD, [facility] [place] CPT-4: 14584 12/11/2014 ([id number]) 21403 EST. P ATIENT, LEVEL IV Diagnosis: Hidradenitis suppurativa[ICD9: 705.83] Diagnosis: ESSENTIAL HYPERTENSION[ICD9: 401.9] Diagnosis: Low back pain[ICD9: 724.2] Diagnosis: Lumbar spinal stenosis[ICD9: 724.02] Diagnosis: HYPOTHYROIDISM[ICD9: 244.9] [facility] CPT-4: 94660 09/18/2014 Office outpatient ne w 30 minutes Diagnosis: ESSENTIAL HYPERTENSION[ICD9: 401.9] Diagnosis: Hypothyroidism[ICD9: 244.9] Diagnosis: Low back pain[ICD9: 724.2] [facility] CPT- 4: 98301 07/31/2014 Plan of Care Planned Activity Notes [...] to evaluate and treat as indicated 10/30/2018 Patient Education: Patient Medication Summary Completed 10/30/2018 Patient Education: Hypertension Completed 10/30/2018 Patient Education: Back Pain Completed 10/30/2018 Appointment: Lynn Arenas WPtel: [address] [place], [place] [phone] [place] [address] (30 min) Complex 10/26/2018 Patient Education: Patient Medication Summary Completed 10/23/2018 Appointment: Lynn Arenas WPtel: [address] [place], [place] [phone] (15 min) Moderate 10/19/2018 Appointment: Damari Finn WPtel: [address] [place], [place] [address] (15 min) Moderate 09/19/2018 Visit Plan: Sinusitis [...] times daily. 06/28/2018 Appointment: Lynn Arenas WPtel: [address] [place], [place] [phone] (30 min) [facility] 06/28/2018 Patient Education: Patient Medication Summary Completed [...] monitor. 04/04/2018 Appointment: Mishel Balderrama WPtel: [phone] [facility] (15 min) Moderate 04/04/2018 Patient Education: Patient Medication Summary Completed 04/04/2018 Visit Plan: Wound Instructions - Pt was instructed to keep the wound clean, wash with antibacterial soap, use triple antibiotic ointment, call if redness, pustular drainage, or any other acute concerns. 01/19/2018 Appointment: Lynn Aernas WPtel: [phone] [phone] (30 min) Complex 01/19/2018 Patient Education: Patient [...] concerns. 01/05/2018 Appointment: Lynn Arenas WPtel: [phone] [phone] (30 min) Complex 01/05/2018 Patient Education: Patient [...] not improve. 11/29/2017 Appointment: [phone] (30 min) Complex 11/29/2017 Patient Education: Patient [...] improve. 10/25/2017 Appointment: Mis[facility] Balderrama [facility] [phone] [facility] [place] (30 min) Complex 10/25/2017 Patient Education: Patient [...] edema. 09/12/2017 Appointment: Mishel Balderrama WPtel: [phone] [facility] [place] (30 min) Complex 09/12/2017 Patient Education: Patient Medication Summary Completed 09/12/2017 Appointment: Lynn Arenas WPtel: [phone] [phone] [place] (30 min) Complex 06/27/2017 Visit Plan: [...] changes. 06/14/2017 Appointment: Mishel Balderrama WPtel: [phone] [facility] [place] [place] (15 min) Moderate 06/14/2017 Patient Education: [...] acute changes 05/10/2017 Appointment: Mishel Balderrama WPtel: [facility] (15 min) Moderate 05/10/2017 Patient Education: Patient [...] acute changes. 04/19/2017 Appointment: Mishel Balderrama [facility]Ptel: [phone] [facility] [place] (15 min) Moderate 04/19/2017 Patient Education: Patient [...] on previous levels of control. Low back hojn-gqnylbr-cnqnvh tramadol for prn use 03/27/2017 Appointment: Lynn Arenas WPtel: [phone] [facility] [phone] [place] (30 min) Complex 03/27/2017 Patient Education: [...] improve. 01/26/2017 Appointment: Damari Finn WPtel: [phone] [facility] (15 min) Moderate 01/26/2017 Patient Education: Patient [...] concerns. 12/07/2016 Appointment: Mishel Balderrama WPtel: [facility] [place] (15 min) Moderate 12/07/2016 Patient Education: Patient [...] monitor for acute changes. 11/28/2016 Appointment: Mishel Balderramatel: [facility] [place] (15 min) Moderate 11/28/2016 Patient Education: Patient Medication Summary Completed 11/28/2016 Appointment: Mishel Balderramal: [facility] [place] (15 min) Moderate 11/24/2016 Visit Plan: Bronchitis [...] changes. 11/15/2016 Appointment: Mishel Balderrama WPtel: [facility] [place] (30 min) Complex 11/15/2016 Patient Education: Patient [...] changes. 10/17/2016 Appointment: Mishel Balderrama WPtel: [phone] [facility] [place] (30 min) Complex 10/17/2016 Patient Education: Patient [...] tylenol 09/28/2016 [facility]ment[phone] ([facility] min) Moderate 09/28/2016 Patient Education: Patient [...] of control. 06/29/2016 Appointment: Lynn Arenas WPtel: [facility]6 [phone] (15 min) Moderate 06/29/2016 Patient Education: Patient [...] for fluconazole 06/01/2016 Appointment: Damari Finn WPtel: [facility]2 [facility] (15 min) Moderate 06/01/2016 Patient Education: Patient Medication Summary Completed 06/01/2016 Patient Education: Obesity Completed 06/01/2016 Visit Plan: Cellulitis - continue w ith oral antibiotics as previously directed, return to clinic as previously directed, call for acute change in symptoms, worsening redness, warmth, discharge. 05/11/2016 Appointment: Damari Finn WPtel: [facility]9 [facility] (15 min) Moderate 05/11/2016 Patient Education: [...] any concerns. 04/01/2016 Appointment: Lynn Arenas WPtel: [address] [place], [place] [phone] (30 min) Complex 04/01/2016 Patient Education: Patient Medication Summary Completed 04/01/2016 Patient Education: Obesity Completed 04/01/2016 Appointment: Lynn Arenas WPtel: [address] [place], [place] [phone] (30 min) Complex 03/29/2016 Visit Plan: Hypertension [...] levels of control. Low back pain-refill tramadol Kylww-xybvbhfbkz-wmaniyhu resolved 01/26/2016 Appointment: Lynn Arenas WPtel: [phone] (30 min) Complex 01/26/2016 Patient Education: Patient Medication Summary Completed 01/26/2016 Patient Education: Obesity Completed 01/26/2016 Care Plan: BMI Above normal followup RADHA F-MGMT EDUC & TRAIN 1 PT Pending 01/26/2016 Care Plan: Referral Order SNOMED-CT : [id number] Pending 01/07/2016 Appointment: Lynn Arenas WPtel: [phone] [phone] (15 min) Moderate 12/24/2015 Visit Plan: Hypertension [...] improving. 06/01/2015 Appointment: Damari Finn WPtel: [facility] (15 min) Moderate 06/01/2015 Patient Education: Patient [...] tramadol 12/11/2014 Appointment: Dam[facility] Finn [facility]Ptel: [phone] [facility] [facility] follow up 12/11/2014 Patient Education: Patient Medication Summary Completed 12/11/2014 Patient Education: Hypertension Completed 12/11/2014 Appointment: Damari Finn WPtel: [phone] [facility] [facility] follow up 11/27/2014 Visit Plan: Hidradenitis Suppurativ [...] to get her back MRI done at [facility] in [place] as that is where her specialist will be once we get her an appt with one of the local Neurosurgeons. 09/18/2014 Appointment: Damari Finn WPtel: [phone] [facility] [facility] 09/18/2014 Patient Education: Patient Medication [...] scheduled 07/31/2014 Appointment: Lynn Arenas [facility]Ptel: [phone] [facility] [phone] [place] New Patient 07/31/2014 Patient Education: Patient [...] . 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 Low back fhsh-oqvjdzd-yxzymo tramadol for prn use claritin or zyrtec [...] . 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 Declined Procedure: (78009) FLU VAC NO PRSV 4 JUSTYNA 3 YRS+; Declined Reason: refused Physical therapy at [facility] . Hypertension - well controlled [...] levels of control. Low back pain-refill tramadol Qekqf-tocfgrdayk-riqlsvli resolved . Hypertension - wel l controlled [...] for acute changes. I will call your courtney hayden to [facility] diflucan 150mg daily x 7 [...] to get her back MRI done at [facility] in [place] as that is where her specialist will [...]
--- OUTSIDE RECORDS SUMMARY | 2020-02-20 19:29 | XMS REPORT | CCD ---
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 Unknown Has never used illegal drugs 014 Allergies, Adverse Reactions, Alerts Substance Reaction Codes Entered Date Inactivated Date Status * NO KNOWN FOOD [place] RGIES Unknown 07/31/2014 No Inactive Date Active bactrim hives, rash RxNorm: 411836 04/05/2016 No Inactive Date Active Past Medical History Illness Codes Condition Status Onset Date Resolved Date Essential (primary) hypertension ICD-9: 401.9 ICD-10: I10 Active 07/31/2014 Unknown Other specified hypo thyroidism [...] ICD-9: 702.0 ICD-10: L57.0 Active 01/05/2018 Unknown Hypothyroidism, unsp ecified ICD-9: 244.9 ICD-10: E03.9 Active 07/31/2014 Unknown Mild persistent asth ma, uncomplicated ICD-9: 493.90 ICD-10: J45.30 Active 05/10/2017 Unknown 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 ICD-10: E03.4 Active 05/31/2016 Unknown Low back pain ICD-9: 724.2 ICD-10: M54.5 Active 04/04/2016 Unknown Pain in left hip ICD-9: 719.45 [...] ICD-9: 401.9 ICD-10: I10 07/31/2014 Active Other specified hypo thyroidism ICD-9: [...] keratosis ICD-9: 702.0 ICD-10: L57.0 01/05/2018 Active Hypothyroidism, unsp ecified ICD-9: 244.9 ICD-10: E03.9 07/31/2014 Active Mild persistent asth ma, uncomplicated ICD-9: 493.90 ICD-10: J45.30 05/10/2017 Active 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 ICD-10: E03.4 05/31/2016 Active Low back pain ICD-9: 724.2 ICD-10: M54.5 04/04/2016 Active Pain in left hip ICD-9: 719.45 [...] Fill Instructions tramadol 50 mg tablet RxNorm: 639228 1 Tablet(s) PO Q4 PRN as needed for pain 10/29/2018 12/07/2018 Ac tive levothyroxine 125 mc g tablet RxNorm: 944474 1 Tablet(s) PO daily TAKE ONE TABLET BY MOUTH DAILY ON AN EMPTY STOMACH 09/06/2018 11/29/2019 Active lorazepam 1 mg tablet RxNorm: 230997 Tablet(s) TAKE TWO TABLETS BY MOUTH AT B EDTIME NEEDED FOR INSOMNIA AND ONE TABLET DAILY NEEDED ANXIETY 09/06/2018 11/04/2018 Active tramadol 50 mg tablet RxNorm: 219848 1 Tablet(s) PO Q4 PRN as needed for pain 09/06/2018 10/15/2018 In active tramadol 50 mg tablet RxNorm: 352123 1 Tablet(s) PO Q4 PRN as needed for pain 07/06/2018 08/14/2018 In active ciprofloxacin 0.3 % eye drops RxNorm: 635884 2 Drop(s) ophthalmic (eye) TID 06/28/2018 07/07/2018 In active lorazepam 1 mg tablet RxNorm: 420012 Tablet(s) TAKE TWO TABLETS BY MOUTH AT B EDTIME NEEDED FOR INSOMNIA AND ONE TABLET DAILY NEEDED ANXIETY 06/28/2018 08/26/2018 Inactive doxycycline hyclate 100 mg tablet RxNorm: 6156324 1 Tablet(s) PO BID 06/28/2018 07/04/2018 Inactive tramadol 50 mg tablet RxNorm: 355204 1 Tablet(s) PO Q4 PRN as needed for pain 06/13/2018 07/05/2018 In active lorazepam 1 mg tablet RxNorm: 215490 Tablet(s) TAKE TWO TABLETS BY MOUTH AT B EDTIME NEEDED FOR INSOMNIA AND ONE TABLET DAILY NEEDED ANXIETY 05/23/2018 06/27/2018 Inactive tramadol 50 mg tablet RxNorm: 924287 1 Tablet(s) PO Q4 PRN as needed for pain 05/23/2018 06/12/2018 In active levothyroxine 125 mc g tablet RxNorm: 530040 Tablet(s) TAKE ONE TA BLET BY MOUTH DAILY ON AN EMPTY STOMACH 05/23/2018 09/05/2018 Inactive tramadol 50 mg tablet RxNorm: 333933 1 Tablet(s) PO Q4 PRN as needed for pain 05/17/2018 05/22/2018 In active levothyroxine 125 mc g tablet RxNorm: 709187 TAKE ONE TABLET BY MO UT DAILY 05/15/2018 06/27/2018 In active levothyroxine 125 mc g tablet RxNorm: 531894 TAKE ONE TABLET BY [facility] DAILY 05/15/2018 06/27/2018 In active tramadol 50 mg tablet RxNorm: 220347 1 Tablet(s) PO Q4 PRN as needed for pain 04/30/2018 05/16/2018 In active Advair Diskus 100 mc g-50 mcg/dose powder for inhalation RxNorm: 1668357 1 Puff(s) INH BID 04/06/2018 No Stop Date Active Symbicort 80 mcg-4.5 mcg/actuation HFA aerosol inhaler RxNorm: 1530506 2 Puff(s) INH BID 04/06/2018 No Stop Date Active Advair Diskus 250 mc g-50 mcg/dose powder for inhalation RxNorm: 0805203 1 Puff(s) INH BID 04/05/2018 09/01/2018 Inactive lisinopril 20 mg-hyd rochlorothiazide 25 mg tablet RxNorm: 713858 Tablet(s) TAKE ONE TABLET BY MOUTH DAILY 04/05/2018 09/01/2018 Inactive Zyrtec 10 mg tablet RxNorm: 9420711 1 Tablet(s) PO daily x1 week then PRN 04/05/2018 08/02/2018 In active Zyrtec 10 mg tablet RxNorm: 6998361 1 Tablet(s) PO daily 04/04/2018 05/03/2018 Inactive tramadol 50 mg tablet RxNorm: 889860 1 Tablet(s) PO Q4 PRN as needed for pain 03/13/2018 04/21/2018 In active lorazepam 1 mg tablet RxNorm: 557335 Tablet(s) TAKE TWO TABLETS BY MOUTH AT B EDTIME NEEDED FOR INSOMNIA AND ONE TABLET DAILY NEEDED ANXIETY 03/02/2018 04/30/2018 Inactive levothyroxine 125 mc g tablet RxNorm: 277080 1 Tablet(s) PO daily 02/06/2018 05/06/2018 Inactive levothyroxine 125 mc g tablet RxNorm: 813019 TAKE ONE TABLET BY [facility] DAILY ON AN EMPTY STOMACH 02/06/2018 05/22/2018 Inactive tramadol 50 mg tablet RxNorm: 028862 1 Tablet(s) PO Q4 PRN as needed for pain 01/26/2018 03/06/2018 In active lorazepam 1 mg tablet RxNorm: 909191 Tablet(s) TAKE TWO TABLETS BY MOUTH AT B EDTIME NEEDED FOR INSOMNIA AND ONE TABLET DAILY NEEDED ANXIETY 01/23/2018 06/27/2018 Inactive Symbicort 80 mcg-4.5 mcg/actuation HFA aerosol inhaler RxNorm: 1280482 INH 01/05/2018 06/27/2018 In active tramadol 50 mg tablet RxNorm: 150752 1 Tablet(s) PO Q4 PRN as needed for pain 01/04/2018 01/25/2018 In active Advair Diskus 250 mc g-50 mcg/dose powder for inhalation RxNorm: 6548921 1 Puff(s) INH BID 11/29/2017 03/28/2018 Inactive hydrochlorothiazide 12.5 mg tablet RxNorm: 877071 1 Tablet(s) PO daily 11/29/2017 12/28/2017 In active tramadol 50 mg tablet RxNorm: 370596 1 Tablet(s) PO Q4 PRN as needed for pain 11/23/2017 01/01/2018 In active tramadol 50 mg tablet RxNorm: 412161 1 Tablet(s) PO Q4 PRN as needed for pain 10/06/2017 11/14/2017 In active lorazepam 1 mg tablet RxNorm: 391446 Tablet(s) TAKE TWO TABLETS BY MOUTH AT B EDTIME NEEDED FOR INSOMNIA AND ONE TABLET DAILY NEEDED ANXIETY 09/12/2017 06/27/2018 Inactive tramadol 50 mg tablet RxNorm: 823172 1 Tablet(s) PO Q4 PRN as needed for pain 09/12/2017 10/05/2017 In active tramadol 50 mg tablet RxNorm: 236714 1 Tablet(s) PO Q4 PRN as needed for pain 08/15/2017 09/11/2017 In active tramadol 50 mg tablet RxNorm: 516724 1 Tablet(s) PO Q4 PRN as needed for pain 06/29/2017 08/07/2017 In active ProAir HFA 90 mcg/ac tuation aerosol inhaler RxNorm: 001531 INHALE 1 TO 2 PUFFS F OUR TIMES A DAY NEEDED FOR ASTHMA 06/14/2017 11/10/2017 Inactive prednisone 20 mg tablet RxNorm: 898283 1 Tablet(s) PO BID x 2 days, then 1 pill daily x 3 days, then 1/2 pill every other day x 3 doses. 06/14/2017 09/11/2017 Inactive Kenalog 40 mg/mL madhavi pension for injection RxNorm: 9687569 1 Milliliter(s) Inj 06/14/2017 06/14/2017 In active Zyrtec 10 mg tablet RxNorm: 9040182 1 Tablet(s) PO daily 06/14/2017 07/13/2017 Inactive tramadol 50 mg tablet RxNorm: 379214 1 Tablet(s) PO Q4 PRN as needed for pain 06/08/2017 06/27/2017 In active [SAVINGS FOR UNINSURED PATIENTS -- BIN:0 63304, PCN: ASPROD1, Group: [id number], ID# [id number], Process claim through [email or web address], for questions: . THIS IS NOT INSURANCE.] tramadol 50 mg tablet RxNorm: 175401 1 Tablet(s) PO Q4 PRN as needed for pain 05/16/2017 06/04/2017 In active [SAVINGS FOR UNINSURED PATIENTS -- BIN:0 63190, PCN: ASPROD1, Group: [id number], ID# [id number], Process claim through [email or web address], for questions: . THIS IS NOT INSURANCE.] lorazepam 1 mg tablet RxNorm: 887529 Tablet(s) TAKE TWO TABLETS BY MOUTH AT B EDTIME NEEDED FOR INSOMNIA AND ONE TABLET DAILY NEEDED ANXIETY 05/16/2017 08/13/2017 Inactive Lasix 20 mg tablet RxNorm: 846137 1 Tablet(s) PO daily 05/10/2017 05/09/2017 Inactive Lasix 20 mg tablet RxNorm: 690938 1 Tablet(s) PO daily 05/10/2017 05/12/2017 Inactive potassium chloride E R 10 mEq tablet,extended release RxNorm: 585303 1 Tablet(s) PO daily while on the lasix 05/10/2017 05/09/2017 Inactive potassium chloride E R 10 mEq tablet,extended release RxNorm: 534660 1 Tablet(s) PO daily while on the lasix 05/10/2017 05/12/2017 Inactive prednisone 20 mg tablet RxNorm: 555333 1 Tablet(s) PO BID x 2 days, then 1 pill daily x 3 days, then 1/2 pill every other day x 3 doses. 04/19/2017 06/13/2017 Inactive Zithromax Z-Linus 250 mg tablet RxNorm: 522834 1 Tablet(s) PO UD 04/13/2017 06/28/2017 Inactive prednisone 20 mg tablet RxNorm: 968317 1 Tablet(s) PO BID 04/13/2017 04/17/2017 Inactive levothyroxine 125 mc g tablet RxNorm: 943443 1 Tablet(s) PO daily 04/11/2017 10/07/2017 Inactive tramadol 50 mg tablet RxNorm: 762285 1 Tablet(s) PO Q4 PRN as needed for pain 03/27/2017 04/15/2017 In active [SAVINGS FOR UNINSURED PATIENTS -- BIN:0 18838, PCN: ASPROD1, Group: [id number], ID# [id number], Process claim through [email or web address], for questions: . THIS IS NOT INSURANCE.] Kenalog 40 mg/mL madhavi pension for injection RxNorm: 3778770 1 Milliliter(s) Inj 03/27/2017 03/27/2017 In active tramadol 50 mg tablet RxNorm: 877059 1 Tablet(s) PO Q4H as needed for pain 03/09/2017 03/26/2017 In active [SAVINGS FOR UNINSURED PATIENTS -- BIN:0 31037, PCN: ASPROD1, Group: [id number], ID# [id number], Process claim through [email or web address], for questions: . THIS IS NOT INSURANCE.] lisinopril 20 mg-hyd rochlorothiazide 25 mg tablet RxNorm: 146274 TAKE ONE TABLET BY MOUTH DAILY 01/29/2017 11/21/2017 Inactive lorazepam 1 mg tablet RxNorm: 712758 Tablet(s) TAKE TWO TABLETS BY MOUTH AT B EDTIME NEEDED FOR INSOMNIA AND ONE TABLET DAILY NEEDED ANXIETY 01/05/2017 04/04/2017 Inactive tramadol 50 mg tablet RxNorm: 805184 1 Tablet(s) PO Q4H as needed for pain 12/07/2016 01/13/2017 In active [SAVINGS FOR UNINSURED PATIENTS -- BIN:0 87757, PCN: ASPROD1, Group: [id number], ID# [id number], Process claim through [email or web address], for questions: . THIS IS NOT INSURANCE.] Kenalog 40 mg/mL madhavi pension for injection RxNorm: 5343038 Milliliter(s) Inj 12/07/2016 12/07/2016 In active nystatin 100,000 uni t/mL oral suspension RxNorm: 458114 4 Milliliter(s) PO QI D 12/07/2016 12/11/2016 In active Francia-D 12 Hour 60 mg-120 mg tablet,extended release RxNorm: 009871 1 Tablet(s) PO BID 12/07/2016 01/11/2017 Inactive lorazepam 1 mg tablet RxNorm: 839902 Tablet(s) TAKE TWO TABLETS BY MOUTH AT B EDTIME AND ONE TABLET DAILY NEEDED 12/07/2016 01/04/2017 Inactive (Response to an electronic controlled substance refill request - RxReferenceNumber: [id number]) albuterol sulfate 2. 5 mg/3 mL (0.083 %) solution for nebulization RxNorm: 795403 3 Milliliter(s) INH TID 11/29/2016 11/28/2016 Inactive prednisone 10 mg tablet RxNorm: 574436 Tablet(s) PO UD 11/29/2016 12/05/2016 Inactive 6,5,4,3,2,1 doxycycline hyclate 100 mg tablet RxNorm: 880405 1 Tablet(s) PO BID 11/29/2016 12/04/2016 Inactive albuterol sulfate 2. 5 mg/3 mL (0.083 %) solution for nebulization RxNorm: 928464 3 Milliliter(s) INH TID 11/29/2016 12/03/2016 Inactive Kenalog 40 mg/mL madhavi pension for injection RxNorm: 9177695 Milliliter(s) Inj 11/28/2016 11/28/2016 In active tramadol 50 mg tablet RxNorm: 541959 1 Tablet(s) PO Q4H as needed for pain 11/15/2016 12/06/2016 In active [SAVINGS FOR UNINSURED PATIENTS -- BIN:0 76265, PCN: ASPROD1, Group: [id number], ID# [id number], Process claim through [email or web address], for questions: . THIS IS NOT INSURANCE.] prednisone 20 mg tablet RxNorm: 704408 2 Tablet(s) PO daily 11/15/2016 11/19/2016 Inactive Advair Diskus 100 mc g-50 mcg/dose powder for inhalation RxNorm: 6827704 1 Puff(s) INH BID 11/15/2016 06/11/2017 Inactive ProAir HFA 90 mcg/ac tuation aerosol inhaler RxNorm: 336806 INHALE 1 TO 2 PUFFS F OUR TIMES A DAY NEEDED FOR ASTHMA 11/15/2016 04/13/2017 Inactive Zithromax Z-Linus 250 mg tablet RxNorm: 921752 1 Tablet(s) PO UD 11/15/2016 11/27/2016 Inactive Zyrtec 10 mg tablet RxNorm: 8793647 1 Tablet(s) PO daily 10/17/2016 11/15/2016 Inactive Keflex 500 mg capsule RxNorm: 654381 1 Capsule(s) PO TID 10/17/2016 10/23/2016 Inactive prednisone 10 mg tablet RxNorm: 812189 Tablet(s) PO UD 10/17/2016 11/28/2016 Inactive 6,5,4,3,2,1 tramadol 50 mg tablet RxNorm: 622639 1 Tablet(s) PO Q4H as needed for pain 09/28/2016 11/06/2016 In active [SAVINGS FOR UNINSURED PATIENTS -- BIN:0 48157, PCN: ASPROD1, Group: [id number], ID# [id number], Process claim through [email or web address], for questions: . THIS IS NOT INSURANCE.] ProAir HFA 90 mcg/ac tuation aerosol inhaler RxNorm: 737639 INHALE 1 TO 2 PUFFS F OUR TIMES A DAY NEEDED FOR ASTHMA 09/15/2016 11/14/2016 Inactive doxycycline hyclate 100 mg tablet RxNorm: 157440 1 Tablet(s) PO BID 09/15/2016 09/24/2016 Inactive doxycycline hyclate 100 mg tablet RxNorm: 134388 1 Tablet(s) PO BID 07/29/2016 08/07/2016 Inactive tramadol 50 mg tablet RxNorm: 531208 1 Tablet(s) PO Q4H as needed for pain 07/29/2016 09/06/2016 In active [SAVINGS FOR UNINSURED PATIENTS -- BIN:0 52859, PCN: ASPROD1, Group: [id number], ID# [id number], Process claim through [email or web address], for questions: . THIS IS NOT INSURANCE.] lorazepam 1 mg tablet RxNorm: 745410 Tablet(s) TAKE TWO TABLETS BY MOUTH AT B EDTIME AND ONE TABLET DAILY NEEDED 07/29/2016 10/26/2016 Inactive (Response to an electronic controlled substance refill request - RxReferenceNumber: [id number]) levothyroxine 125 mc g tablet RxNorm: 619846 1 Tablet(s) PO daily 06/29/2016 06/29/2016 Inactive levothyroxine 137 mc g tablet RxNorm: 012218 1 Tablet(s) PO daily 06/29/2016 12/25/2016 Inactive ketoconazole 2 % sha mpoo RxNorm: 722979 1 Application TOP BID 06/29/2016 07/03/2016 Inactive tramadol 50 mg tablet RxNorm: 374464 1 Tablet(s) PO Q4H as needed for pain 06/16/2016 07/25/2016 In active [SAVINGS FOR UNINSURED PATIENTS -- BIN:0 12283, PCN: ASPROD1, Group: [id number], ID# [id number], Process claim through [email or web address], for questions: . THIS IS NOT INSURANCE.] Bactroban 2 % topica l ointment RxNorm: 674722 APPLY TO AFFECTED ARE A(S) TWO TIMES A DAY 06/16/2016 04/16/2017 Inactive fluconazole 150 mg t ablet RxNorm: 671842 1 Tablet(s) PO daily 06/01/2016 06/05/2016 Inactive gentamicin 0.1 % top ical ointment RxNorm: 950630 1 Application TOP QID 05/12/2016 05/25/2016 In active metronidazole 500 mg tablet RxNorm: 504399 1 Tablet(s) PO TID 05/11/2016 05/24/2016 Inactive gentamicin 0.1 % top ical ointment RxNorm: 567745 1 Application TOP QID 05/11/2016 05/11/2016 In active doxycycline hyclate 100 mg tablet RxNorm: 789702 1 Tablet(s) PO BID 05/11/2016 05/24/2016 Inactive lorazepam 1 mg tablet RxNorm: 301773 Tablet(s) TAKE TWO TABLETS BY MOUTH AT B EDTIME AND ONE TABLET DAILY NEEDED 05/02/2016 07/28/2016 Inactive (Response to an electronic controlled substance refill request - RxReferenceNumber: [id number]) Diflucan 150 mg tablet RxNorm: 893224 1 Tablet(s) PO daily x5 days then 1 x we ekly x 4 weeks. 05/02/2016 04/10/2017 Inactive Diflucan 150 mg tablet RxNorm: 262840 1 Tablet(s) PO every other day 04/19/2016 04/28/2016 In active Diflucan 150 mg tablet RxNorm: 737736 1 Tablet(s) PO every other day 04/19/2016 04/18/2016 In active Diflucan 150 mg tablet RxNorm: 695561 1 Tablet(s) PO daily 04/05/2016 04/11/2016 Inactive mupirocin 2 % topica l ointment RxNorm: 443252 1 Application TOP BID 04/05/2016 05/04/2016 Inactive tramadol 50 mg tablet RxNorm: 304980 1 Tablet(s) PO Q4H as needed for pain 04/05/2016 05/14/2016 In active [SAVINGS FOR UNINSURED PATIENTS -- BIN:0 85654, PCN: ASPROD1, Group: [id number], ID# [id number], Process claim through [email or web address], for questions: . THIS IS NOT INSURANCE.] prednisone 10 mg tablet RxNorm: 521124 Tablet(s) PO UD 04/01/2016 09/26/2016 Inactive 6,5,4,3,2,1 levothyroxine 137 mc g tablet RxNorm: 187527 1 Tablet(s) PO daily 03/21/2016 03/20/2016 Inactive levothyroxine 137 mc g tablet RxNorm: 694945 1 Tablet(s) PO daily 03/21/2016 06/28/2016 Inactive Advair Diskus 100 mc g-50 mcg/dose powder for inhalation RxNorm: 1102279 1 Puff(s) INH BID 01/26/2016 05/24/2016 Inactive tramadol 50 mg tablet RxNorm: 384022 1 Tablet(s) PO Q4H as needed for pain 01/26/2016 03/05/2016 In active [SAVINGS FOR UNINSURED PATIENTS -- BIN:0 62241, PCN: ASPROD1, Group: [id number], ID# [id number], Process claim through [email or web address], for questions: . THIS IS NOT INSURANCE.] Bactroban 2 % topica l ointment RxNorm: 657707 APPLY TO AFFECTED ARE A(S) TWO TIMES A DAY 12/22/2015 12/31/2015 Inactive Bactrim DS 800 mg-16 0 mg tablet RxNorm: 912043 TAKE ONE TABLET BY [facility] TWICE A DAY 12/22/2015 04/18/2016 In active Bactrim DS 800 mg-16 0 mg tablet RxNorm: 798253 1 Tablet(s) PO BID 12/21/2015 12/30/2015 Inactive lisinopril 20 mg-hyd rochlorothiazide 25 mg tablet RxNorm: 624190 1 Tablet(s) PO daily 12/21/2015 06/17/2016 Inactive [SAVINGS FOR UNINSURED PATIENTS -- BIN:0 24656, PCN: ASPROD1, Group: [id number], ID# [id number], Process claim through [email or web address], for questions: . THIS IS NOT INSURANCE.] tramadol 50 mg tablet RxNorm: 565123 1 Tablet(s) PO Q4H as needed for pain 12/03/2015 01/11/2016 In active [SAVINGS FOR UNINSURED PATIENTS -- BIN:0 87581, PCN: ASPROD1, Group: [id number], ID# [id number], Process claim through [email or web address], for questions: . THIS IS NOT INSURANCE.] lorazepam 1 mg tablet RxNorm: 352480 Tablet(s) TAKE TWO TABLETS BY MOUTH AT B EDTIME AND ONE TABLET DAILY NEEDED 11/26/2015 06/27/2018 Inactive (Response to an electronic controlled substance refill request - RxReferenceNumber: [id number]) Bactrim DS 800 mg-16 0 mg tablet RxNorm: 018311 1 Tablet(s) PO BID 11/25/2015 12/04/2015 Inactive levothyroxine 150 mc g tablet RxNorm: 159165 1 Tablet(s) PO daily 11/25/2015 03/20/2016 Inactive Bactroban 2 % topica l ointment RxNorm: 402603 1 Application TOP BID 10/12/2015 10/21/2015 Inactive Bactrim DS 800 mg-16 0 mg tablet RxNorm: 623311 1 Tablet(s) PO BID 09/07/2015 09/06/2015 Inactive Bactrim DS 800 mg-16 0 mg tablet RxNorm: 359958 1 Tablet(s) PO BID 09/07/2015 09/16/2015 Inactive lorazepam 1 mg tablet RxNorm: 191632 Tablet(s) TAKE TWO TABLETS BY MOUTH AT B EDTIME AND ONE TABLET DAILY NEEDED 08/28/2015 11/24/2015 Inactive (Response to an electronic controlled substance refill request - RxReferenceNumber: [id number]) levothyroxine 175 mc g tablet RxNorm: 645964 1 Tablet(s) PO daily 08/24/2015 11/24/2015 Inactive tramadol 50 mg tablet RxNorm: 829702 1 Tablet(s) PO Q4H as needed for pain 08/24/2015 09/11/2017 In active [SAVINGS FOR UNINSURED PATIENTS -- BIN:0 77987, PCN: ASPROD1, Group: [id number], ID# [id number], Process claim through [email or web address], for questions: . THIS IS NOT INSURANCE.] lisinopril 20 mg-hyd rochlorothiazide 25 mg tablet RxNorm: 674866 1 Tablet(s) PO daily TAKE 1 TABLET BY MOUTH DAILY 08/24/2015 06/27/2018 Inactive ProAir HFA 90 mcg/ac tuation aerosol inhaler RxNorm: 851681 1-2 Puff(s) INH PRN I NHALE ONE TO TWO PUFFS BY MOUTH FOUR TIMES A DAY NEEDED FOR ASTHMA 08/24/2015 12/01/2015 In active ProAir HFA 90 mcg/ac tuation aerosol inhaler RxNorm: 8244134 INHALE ONE TO TWO PU FFS BY MOUTH FOUR TIMES A DAY NEEDED FOR ASTHMA 08/17/2015 08/23/2015 Inactive Advair Diskus 250 mc g-50 mcg/dose powder for inhalation RxNorm: 0700297 1 Puff(s) INH BID 07/20/2015 07/19/2015 Inactive Advair Diskus 250 mc g-50 mcg/dose powder for inhalation RxNorm: 2485671 1 Puff(s) INH BID 07/20/2015 11/16/2015 Inactive tramadol 50 mg tablet RxNorm: 217114 1 Tablet(s) PO Q4H as needed for pain 07/10/2015 08/17/2015 In active [SAVINGS FOR UNINSURED PATIENTS -- BIN:0 27973, PCN: ASPROD1, Group: [id number], ID# [id number], Process claim through [email or web address], for questions: . THIS IS NOT INSURANCE.] Zithromax Z-Linus 250 mg tablet RxNorm: 958300 1 Tablet(s) PO UD 07/10/2015 01/18/2016 Inactive Keflex 500 mg capsule RxNorm: 545866 1 Capsule(s) PO TID 06/01/2015 06/07/2015 Inactive mupirocin 2 % topica l ointment RxNorm: 505623 1 Application TOP TID 06/01/2015 06/10/2015 Inactive lisinopril 20 mg-hyd rochlorothiazide 25 mg tablet RxNorm: 379706 TAKE 1 TABLET BY MOUT H DAILY 05/30/2015 08/23/2015 Inactive lisinopril 20 mg-hyd rochlorothiazide 25 mg tablet RxNorm: 993564 1 Tablet(s) PO daily 05/29/2015 11/24/2015 Inactive [SAVINGS FOR UNINSURED PATIENTS -- BIN:0 01702, PCN: ASPROD1, Group: [id number], ID# [id number], Process claim through [employer], for questions: . THIS IS NOT INSURANCE.] lorazepam 1 mg tablet RxNorm: 628374 Tablet(s) TAKE TWO TABLETS BY MOUTH AT B EDTIME AND ONE TABLET DAILY NEEDED 04/17/2015 07/13/2015 Inactive (Response to an electronic controlled substance refill request - RxReferenceNumber: [id number]) levothyroxine 200 mc g tablet RxNorm: 115000 1 Tablet(s) PO daily 03/12/2015 08/23/2015 Inactive [SAVINGS FOR UNINSURED PATIENTS -- BIN:0 72489, PCN: ASPROD1, Group: [id number], ID# [id number], Process claim through [employer], for questions: . THIS IS NOT INSURANCE.] lisinopril 20 mg-hyd rochlorothiazide 25 mg tablet RxNorm: 734555 1 Tablet(s) PO daily 03/11/2015 05/28/2015 Inactive [SAVINGS FOR UNINSURED PATIENTS -- BIN:0 12174, PCN: ASPROD1, Group: [id number], ID# [id number], Process claim through [employer], for questions: . THIS IS NOT INSURANCE.] levothyroxine 175 mc g tablet RxNorm: 754345 1 Tablet(s) PO daily 03/09/2015 03/11/2015 Inactive recheck blood in 3 months- THIS IS CORRE CT DOSAGE levothyroxine 175 mc g tablet RxNorm: 031048 1 Tablet(s) PO daily 03/09/2015 03/08/2015 Inactive recheck blood in 3 months levothyroxine 150 mc g tablet RxNorm: 140561 1 Tablet(s) PO daily 03/09/2015 03/08/2015 Inactive recheck blood in 3 months lorazepam 1 mg tablet RxNorm: 632506 TAKE TWO TABLETS BY MOUTH AT BEDTIME AND ONE TABLET DAILY NEEDED 12/25/2014 01/22/2015 Inactive (Response to an electronic controlled substance refill request - RxReferenceNumber: [id number]) lorazepam 1 mg tablet RxNorm: 905372 Tablet(s) TAKE TWO TABLETS BY MOUTH EVER Y NIGHT AT BEDTIME AND TAKE ONE TABLET BY MOUTH DAILY NEEDED 12/23/2014 12/25/2014 Inactive (Response to an electronic controlled [place] bstance refill request - RxReferenceNumber: [id number]) levothyroxine 150 mc g tablet RxNorm: 005912 1 Tablet(s) PO daily 12/12/2014 03/08/2015 Inactive recheck blood in 3 months Diflucan 150 mg tablet RxNorm: 160011 1 Tablet(s) PO every other day (start af ter finished with Cipro) 11/17/2014 08/23/2015 Inactive tramadol 50 mg tablet RxNorm: 898650 1 Tablet(s) PO Q4H as needed for pain 11/10/2014 12/17/2014 In active [SAVINGS FOR UNINSURED PATIENTS -- BIN:0 93780, PCN: ASPROD1, Group: [id number], ID# [id number], Process claim through [email or web address], for questions: . THIS IS NOT INSURANCE.] Cipro 500 mg tablet RxNorm: 671671 1 Tablet(s) PO BID 10/23/2014 10/29/2014 Inactive Flagyl 500 mg tablet RxNorm: 152918 1 Tablet(s) PO TID 10/23/2014 10/29/2014 Inactive Cipro 500 mg tablet RxNorm: 695902 1 Tablet(s) PO BID 10/23/2014 10/22/2014 Inactive Flagyl 500 mg tablet RxNorm: 586616 1 Tablet(s) PO TID 10/23/2014 10/22/2014 Inactive Diflucan 150 mg tablet RxNorm: 782922 1 Tablet(s) PO every other day (start af ter finished with Cipro) 10/23/2014 11/16/2014 Inactive lorazepam 1 mg tablet RxNorm: 706889 TAKE TWO TABLETS BY MOUTH EVERY NIGHT AT BEDTIME AND TAKE ONE TABLET BY MOUTH DAILY NEEDED 10/21/2014 10/21/2014 Inactive (Response to an electronic controlled [place] b[place] refill request - RxReferenceNumber: [id number]) lorazepam 1 mg tablet RxNorm: 259151 TAKE TWO TABLETS BY MOUTH EVERY NIGHT AT BEDTIME AND TAKE ONE TABLET BY MOUTH DAILY NEEDED 10/21/2014 11/18/2014 Inactive (Response to an electronic controlled [place] bstance refill request - RxReferenceNumber: [id number]) lorazepam 1 mg tablet RxNorm: 524669 Tablet(s) TAKE TWO TABLETS BY MOUTH AT B EDTIME, ALSO TAKE ONE TABLET BY MOUTH DAILY NEEDED 10/13/2014 10/21/2014 Inactive (Res ponse to an electronic controlled substance refill request - RxReferenceNumber: [id number]) ProAir HFA 90 mcg/ac tuation aerosol inhaler RxNorm: 1128242 1-2 inhale INH QID a s needed ASTHMA 10/13/2014 12/26/2014 Inactive ProAir HFA 90 mcg/ac tuation aerosol inhaler RxNorm: 1307675 1-2 inhale INH QID a s needed ASTHMA 09/18/2014 10/12/2014 Inactive meloxicam 7.5 mg tablet RxNorm: 241768 1 Tablet(s) PO daily 09/18/2014 03/10/2015 Inactive [SAVINGS FOR UNINSURED PATIENTS -- BIN:0 19434, PCN: ASPROD1, Group: [id number], ID# [id number], Process claim through [email or web address], for questions: . THIS IS NOT INSURANCE.] sulfamethoxazole 800 mg-trimethoprim 160 mg tablet RxNorm: 955876 1 Tablet(s) PO BID 09/18/2014 10/07/2014 Inactive levothyroxine 175 mc g tablet RxNorm: 589201 1 Tablet(s) PO daily 09/17/2014 12/11/2014 Inactive levothyroxine 175 mc g tablet RxNorm: 520307 1 Tablet(s) PO daily 09/17/2014 09/16/2014 Inactive lorazepam 1 mg tablet RxNorm: 509481 Tablet(s) TAKE TWO TABLETS BY MOUTH AT B EDTIME, ALSO TAKE ONE TABLET BY MOUTH DAILY NEEDED 09/12/2014 10/11/2014 Inactive (Res ponse to an electronic controlled substance refill request - RxReferenceNumber: [id number]) lorazepam 1 mg tablet RxNorm: 929244 TAKE TWO TABLETS BY MOUTH AT BEDTIME, AL SO TAKE ONE TABLET BY MOUTH DAILY NEEDED 09/08/2014 09/11/2014 Inactive (Res ponse to an electronic controlled substance refill request - [id number]) meloxicam 7.5 mg tablet RxNorm: 087075 1 Tablet(s) PO daily 09/01/2014 09/17/2014 Inactive [SAVINGS FOR UNINSURED PATIENTS -- BIN:0 54202, PCN: ASPROD1, Group: [id number], ID# [id number], Process claim through [employer], for questions: . THIS IS NOT INSURANCE.] lisinopril 20 mg-hyd rochlorothiazide 25 mg tablet RxNorm: 147645 1 Tablet(s) PO daily 09/01/2014 12/29/2014 Inactive [SAVINGS FOR UNINSURED PATIENTS -- BIN:0 53558, PCN: ASPROD1, Group: [id number], ID# [id number], Process claim through [employer], for questions: . THIS IS NOT INSURANCE.] tramadol 50 mg tablet RxNorm: 669246 1 Tablet(s) PO Q4H as needed for pain 08/20/2014 11/07/2014 In active [SAVINGS FOR UNINSURED PATIENTS -- BIN:0 36194, PCN: ASPROD1, Group: [id number], ID# [id number], Process claim through [employer], for questions: . THIS IS NOT INSURANCE.] meloxicam 7.5 mg tablet RxNorm: 145952 1 Tablet(s) PO daily 08/14/2014 08/31/2014 Inactive [SAVINGS FOR UNINSURED PATIENTS -- BIN:0 12000, PCN: ASPROD1, Group: [id number], ID# [id number], Process claim through [employer], for questions: . THIS IS NOT INSURANCE.] lorazepam 1 mg tablet RxNorm: 019365 2 Tablet(s) PO QHS and 1 tab qd PRN 08/01/2014 09/08/2014 In active [SAVINGS FOR UNINSURED PATIENTS -- BIN:0 88064, PCN: ASPROD1, Group: [id number], ID# [id number], Process claim through [email or web address], for questions: . THIS IS NOT INSURANCE.] levothyroxine 200 mc g tablet RxNorm: 886094 1 Tablet(s) PO daily 07/31/2014 09/16/2014 Inactive [SAVINGS FOR UNINSURED PATIENTS -- BIN:0 97723, PCN: ASPROD1, Group: [id number], ID# [id number], Process claim through [email or web address], for questions: . THIS IS NOT INSURANCE.] lorazepam 1 mg tablet RxNorm: 916851 2 Tablet(s) PO QHS and 1 tab qd PRN No Start Date 07/31/2014 Inactive Phenergan VC-Codeine oral RxNorm: 936378 oral No S tart Date 11/26/2017 Inactive meloxicam 7.5 mg tablet RxNorm: 471418 1 Tablet(s) PO daily No Start Date 08/13/2014 Inactive lisinopril 20 mg-hyd rochlorothiazide 25 mg tablet RxNorm: 367413 1 Tablet(s) PO daily No Start Date 08/31/2014 Inactive levothyroxine 200 mc g tablet RxNorm: 561534 1 Tablet(s) PO daily No Start Date 07/30/2014 Inactive Diflucan 150 mg tablet RxNorm: 117799 1 Tablet(s) PO every other day No Start Date 10/22/2014 Inactive Zithromax Z-Linus 250 mg tablet RxNorm: 550665 1 Tablet(s) PO UD No Start Date 07/09/2015 Inactive tramadol 50 mg tablet RxNorm: 069548 1 Tablet(s) PO Q6 as needed No Start Date 08/19/2014 Inactive Medication Administered Medication Codes Instruc tions Start Date Status Kenalog 40 mg/mL suspension for injection RxNorm: 9240142 1Milliliter 06/14/2017 N o longer Active Kenalog 40 mg/mL suspension for injection RxNorm: 0217270 1Milliliter 03/27/2017 N o longer Active Kenalog 40 mg/mL suspension for injection RxNorm: 4321398 Milliliter 12/07/2016 No longer Active Kenalog 40 mg/mL suspension for injection RxNorm: 3024356 Milliliter 11/28/2016 No longer Active Immunizations Vaccine Codes Date Status Pneumococcal CVX: 33 09/1986 completed Tetanus, Diptheria, Pertussis CVX: 113 03/11/1987 completed Tetanus/Diptheria CVX: 113 03/11/1987 completed Influenza CVX: 141 03/11 completed Assessments Condition Codes Effectiv e Dates Essential (primary) hypertension ICD -10: I10 ICD-9: 401.9 10/23/2018 Other specified hypothyroidism ICD-1 0: E03.8 ICD-9: [...] asthma, uncomplicated ICD-10: J45.30 ICD-9: 493.90 01/05/2018 Low back pain ICD-10: M54.5 ICD-9: 724.2 11/29/2017 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 ICD-9: 244.8 11/29/2017 Pain in left hip ICD-10: M25.552 ICD-9: 719.45 10/25/2017 Mild persistent asthma with (acute) exacerbation ICD-10: J45.31 ICD-9: 493.12 06/14/2017 Contusion of left wrist, initial encounter ICD-10: S60.212A ICD-9: 923.21 03/27/2017 Hypothyroidism, unspecified ICD-10: E03.9 ICD-9: 244.9 03/27/2017 Acute bronchitis due to other specified [...] Visit Reason For Visit Effective Dates Notes eye erythema 06/28/2018 hypertension 04/04/2018 office procedure [...] Ord30 C/HDL 4.1 Ratio 10/24/2018 Comp Metabolic Lsb471 NA 141 mEq/L 10/24/2018 Comp Metabolic Pfw325 K 3.7 mEq/L 10/24/2018 Comp Metabolic Ujd875 CL 103 mEq/L 10/24/2018 Comp Metabolic Arz748 CO2 30.0 mEq/L 10/24/2018 Comp Metabolic Qnq291 AN ION GAP 12 10/24/2018 Comp Metabolic Oft519 GL UCOSE 98 mg/dL 10/24/2018 Comp Metabolic Qjq517 Cr eat 0.8 mg/dL 10/24/2018 Comp Metabolic Ymp065 eG FR 71 ml/min/1.73m2 10/24 Comp Metabolic Lno661 BUN 12 mg/dL 10/24/2018 Comp Metabolic Mmt751 B/ C Ratio 14.5 Ratio 10/24/2018 Comp Metabolic Phx257 CA LCIUM 9.2 mg/dL 10/24/2018 Comp Metabolic Pkv046 AL K PHOS 76 U/L 10/24/2018 Comp Metabolic Pna802 T(SGOT) 12 U/L 10/24/2018 Comp Metabolic Pmz713 AL T(SGPT) 9 U/L 10/24/2018 Comp Metabolic Ezj766 BI LI T 0.5 mg/dL 10/24/2018 Comp Metabolic Gmm529 AL BUMIN 4.3 g/dL 10/24/2018 Comp Metabolic Aeb736 TP RO 6.5 g/dL 10/24/2018 Comp Metabolic Ldr517 GL OB 2.2 g/dL 10/24/2018 Comp Metabolic Afd650 A/ G Ratio 2.0 Ratio 10/24/2018 Comp Metabolic Hdj317 Os mo 281 mOsmo 10/24/2018 Free T4 Iyp894 FREE T4 0.76 ng/dL 10/24/2018 Cbc With [...] 90.9 fl 10/24/2018 Cbc With Differential Ord2 Wise% 8.4 % 10/24/2018 Cbc With Differential Ord2 [...] 1.71 K/ul 10/24/2018 Cbc With Differential Ord2 Wise ABS# 0.4 K/ul 10/24/2018 Cbc With Differential [...] 30.0 pg 04/04/2018 Cbc With Differential Ord2 Wise% 10.9 % 04/04/2018 Cbc With Differential Ord2 [...] 1.42 K/ul 04/04/2018 Cbc With Differential Ord2 Wise ABS# 0.6 K/ul 04/04/2018 Cbc With Differential Ord2 Eos ABS# 0.1 K/ul 04/04/2018 Cbc With Differential Ord2 Baso ABS# 0.0 K/ul 04/04/2018 Free T4 Ebw725 FREE T4 1.25 ng/dL 04/04/2018 Tsh Ord6 [...] 25.9 % 11/28/2017 Cbc With Differential Ord2 Wise% 10.1 % 11/28/2017 Cbc With Differential Ord2 [...] 1.33 K/ul 11/28/2017 Cbc With Differential Ord2 Wise ABS# 0.5 K/ul 11/28/2017 Cbc With Differential Ord2 Eos ABS# 0.1 K/ul 11/28/2017 Cbc With Differential Ord2 Baso ABS# 0.0 K/ul 11/28/2017 Free T4 Isj338 FREE T4 1.43 ng/dL 11/28/2017 Lipid Ord30 CHOL 186 mg/dL 11/28/2017 Lipid Ord30 HDL 54.0 mg/dl 11/28/2017 Lipid Ord30 TRIG 59 mg/dL 11/28/2017 Lipid Ord30 LDL 120 mg/dL 11/28/2017 Lipid Ord30 C/HDL 3.4 Ratio 11/28/2017 Comp Metabolic Ldq151 NA 141 mEq/L 11/28/2017 Comp Metabolic Rrp839 K 4.0 mEq/L 11/28/2017 Comp Metabolic Zjm137 CL 105 mEq/L 11/28/2017 Comp Metabolic Uby157 CO2 29.0 mEq/L 11/28/2017 Comp Metabolic Lmc651 AN ION GAP 11 11/28/2017 Comp Metabolic Bdk042 GL UCOSE 91 mg/dL 11/28/2017 Comp Metabolic Syj052 Cr eat 0.8 mg/dL 11/28/2017 Comp Metabolic Wgy252 eG FR 74 ml/min/1.73m2 11/28 Comp Metabolic Zmx241 BUN 15 mg/dL 11/28/2017 Comp Metabolic Gbt597 B/ C Ratio 18.8 Ratio 11/28/2017 Comp Metabolic Cqu183 CA LCIUM 8.6 mg/dL 11/28/2017 Comp Metabolic Yme583 AL K PHOS 76 U/L 11/28/2017 Comp Metabolic Frf770 T(SGOT) 10 U/L 11/28/2017 Comp Metabolic Kqc114 AL T(SGPT) 8 U/L 11/28/2017 Comp Metabolic Dft140 BI LI T 0.5 mg/dL 11/28/2017 Comp Metabolic Rya247 AL BUMIN 4.0 g/dL 11/28/2017 Comp Metabolic Hxa659 TP RO 6.1 g/dL 11/28/2017 Comp Metabolic Hgj343 GL OB 2.1 g/dL 11/28/2017 Comp Metabolic Iok030 A/ G Ratio 1.9 Ratio 11/28/2017 Comp Metabolic Zck607 Os mo 282 mOsmo 11/28/2017 Tsh Ord6 TSH (3rd IS) 3.31 uIU/mL 11/28/2017 Tsh Ord6 hTSH II 1.45 uIU/mL 03/27/2017 Free T4 Dos269 FREE T4 1.23 ng/dL 03/27/2017 Comp Metabolic Gkz568 NA 140 mEq/L 09/28/2016 Comp Metabolic Jzo546 K 3.9 mEq/L 09/28/2016 Comp Metabolic Oix970 CL 104 mEq/L 09/28/2016 Comp Metabolic Rap209 CO2 28.0 mEq/L 09/28/2016 Comp Metabolic Olm791 AN ION GAP 12 09/28/2016 Comp Metabolic Dsn045 GL UCOSE 97 mg/dL 09/28/2016 Comp Metabolic Dzo159 Cr eat 0.8 mg/dL 09/28/2016 Comp Metabolic Hcy868 eG FR 79 ml/min/1.73m2 09/28 Comp Metabolic Xfa680 BUN 13 mg/dL 09/28/2016 Comp Metabolic Hzf068 B/ C Ratio 17.1 Ratio 09/28/2016 Comp Metabolic Cqz485 CA LCIUM 8.9 mg/dL 09/28/2016 Comp Metabolic Ecp660 AL K PHOS 100 U/L 09/28/2016 Comp Metabolic Iwm596 T(SGOT) 12 U/L 09/28/2016 Comp Metabolic Caa319 AL T(SGPT) 9 U/L 09/28/2016 Comp Metabolic Ntg439 BI LI T 0.4 mg/dL 09/28/2016 Comp Metabolic Kwe906 AL BUMIN 4.1 g/dL 09/28/2016 Comp Metabolic Ern460 TP RO 6.6 g/dL 09/28/2016 Comp Metabolic Cvv204 GL OB 2.5 g/dL 09/28/2016 Comp Metabolic Efy720 A/ G Ratio 1.6 Ratio 09/28/2016 Comp Metabolic Tnc535 Os mo 279 mOsmo 09/28/2016 Lipid Ord30 [...] 28.8 pg 09/28/2016 Cbc With Differential Ord2 Wise% 7.2 % 09/28/2016 Cbc With Differential Ord2 [...] 1.41 K/ul 09/28/2016 Cbc With Differential Ord2 Wise ABS# 0.5 K/ul 09/28/2016 Cbc With Differential Ord2 Eos ABS# 0.2 K/ul 09/28/2016 Cbc With Differential Ord2 Baso ABS# 0.0 K/ul 09/28/2016 Free T4 Jlq339 FREE T4 1.43 ng/dL 09/28/2016 Tsh Ord6 hTSH II 0.52 uIU/mL 09/28/2016 Tsh Ord6 hTSH II 0.47 uIU/mL 06/16/2016 Comp Metabolic Idj480 NA 139 mEq/L 06/16/2016 Comp Metabolic Vqt307 K 4.3 mEq/L 06/16/2016 Comp Metabolic Vuy542 CL 105 mEq/L 06/16/2016 Comp Metabolic Civ138 CO2 30.0 mEq/L 06/16/2016 Comp Metabolic Vyg407 AN ION GAP 8 06/16/2016 Comp Metabolic Nld788 GL UCOSE 90 mg/dL 06/16/2016 Comp Metabolic Snf589 Cr eat 0.7 mg/dL 06/16/2016 Comp Metabolic Mec148 eG FR 91 ml/min/1.73m2 06/16 Comp Metabolic Aqu573 BUN 15 mg/dL 06/16/2016 Comp Metabolic Ieo993 B/ C Ratio 22.4 Ratio 06/16/2016 Comp Metabolic Jct738 CA LCIUM 8.8 mg/dL 06/16/2016 Comp Metabolic Lcb393 AL K PHOS 79 U/L 06/16/2016 Comp Metabolic Mrl826 T(SGOT) 13 U/L 06/16/2016 Comp Metabolic Iuq692 AL T(SGPT) 11 U/L 06/16/2016 Comp Metabolic Oje493 BI LI T 0.5 mg/dL 06/16/2016 Comp Metabolic Tlh840 AL BUMIN 3.9 g/dL 06/16/2016 Comp Metabolic Spe760 TP RO 6.1 g/dL 06/16/2016 Comp Metabolic Nbp267 GL OB 2.2 g/dL 06/16/2016 Comp Metabolic Rtg397 A/ G Ratio 1.8 Ratio 06/16/2016 Comp Metabolic Brf573 Os mo 278 mOsmo 06/16/2016 Lipid Ord30 [...] 28.9 pg 06/16/2016 Cbc With Differential Ord2 Wise% 8.1 % 06/16/2016 Cbc With Differential Ord2 [...] 1.70 K/ul 06/16/2016 Cbc With Differential Ord2 Wise ABS# 0.4 K/ul 06/16/2016 Cbc With Differential Ord2 Eos ABS# 0.2 K/ul 06/16/2016 Cbc With Differential Ord2 Baso ABS# 0.0 K/ul 06/16/2016 Free T4 Xgp793 FREE T4 1.42 ng/dL 06/16/2016 Free T4 Agt683 FREE T4 1.34 ng/dL 03/04/2016 Tsh Ord6 hTSH II 0.56 uIU/mL 03/04/2016 Tsh Ord6 hTSH II 0.98 uIU/mL 01/27/2016 Free T4 Ycx373 FREE T4 1.19 ng/dL 01/27/2016 Free T4 Pfs418 FREE T4 1.69 ng/dL 11/23/2015 Tsh Ord6 hTSH II 0.08 uIU/mL 11/23/2015 Lipid Ord30 CHOL 185 mg/dL 08/21/2015 Lipid Ord30 HDL 50.0 mg/dl 08/21/2015 Lipid Ord30 TRIG 88 mg/dL 08/21/2015 Lipid Ord30 LDL 117 mg/dL 08/21/2015 Lipid Ord30 C/HDL 3.7 Ratio 08/21/2015 Comp Metabolic Kij736 NA 139 mEq/L 08/21/2015 Comp Metabolic Xlq944 K 4.3 mEq/L 08/21/2015 Comp Metabolic Oht625 CL 102 mEq/L 08/21/2015 Comp Metabolic Eib411 CO2 27.0 mEq/L 08/21/2015 Comp Metabolic Byk626 AN ION GAP 14 08/21/2015 Comp Metabolic Fnk331 GL UCOSE 89 mg/dL 08/21/2015 Comp Metabolic Vyb068 Cr eat 0.7 mg/dL 08/21/2015 Comp Metabolic Uxd117 eG FR 85 ml/min/1.73m2 08/21 Comp Metabolic Czb419 BUN 14 mg/dL 08/21/2015 Comp Metabolic Whg248 B/ C Ratio 19.7 Ratio 08/21/2015 Comp Metabolic Ehi401 CA LCIUM 9.5 mg/dL 08/21/2015 Comp Metabolic Jrw108 AL K PHOS 123 U/L 08/21/2015 Comp Metabolic Dmn300 T(SGOT) 13 U/L 08/21/2015 Comp Metabolic Tms377 AL T(SGPT) 10 U/L 08/21/2015 Comp Metabolic Miw240 BI LI T 0.4 mg/dL 08/21/2015 Comp Metabolic Slr322 AL BUMIN 4.1 g/dL 08/21/2015 Comp Metabolic Exf284 TP RO 6.8 g/dL 08/21/2015 Comp Metabolic Fyc778 GL OB 2.7 g/dL 08/21/2015 Comp Metabolic Tgg774 A/ G Ratio 1.5 Ratio 08/21/2015 Comp Metabolic Tvp237 Os mo 277 mOsmo 08/21/2015 Free T4 Bcr203 FREE T4 1.78 ng/dL 08/21/2015 Tsh Ord6 [...] Ord2 RDW 13.9 % 08/21/2015 Quick Strep Ztr5149 Quic k Strep Negative 07/08/2015 Tsh Ord6 hTSH II 0.04 uIU/mL 05/20/2015 Free T4 Wtj120 FREE T4 1.50 ng/dL 05/20/2015 Review of Systems System Result Effective Dates Constitutional recent illness 06/28/2018 Constitutional No chills [...] Procedure Codes Date DESTRUCT PREMALG LESION CPT-4: 05486 01/19/2018 URINALYSIS NONAUTO W /O SCOPE CPT-4: 99498 09/12/2017 TRIAMCINOLONE ACET I [place] NOS CPT-4: J3301 06/14/2017 THER/PROPH/DIAG INJ SC/IM CPT-4: 68015 06/14/2017 PRESCRIP TRANSMIT A ERX SY CPT-4: G8553 06/14/2017 TRIAMCINOLONE ACET I [place] NOS CPT-4: J3301 03/27/2017 THER/PROPH/DIAG INJ SC/IM CPT-4: 68702 12/07/2016 TRIAMCINOLONE ACET I [place] NOS CPT-4: J3301 12/07/2016 THER/PROPH/DIAG INJ SC/IM CPT-4: 75661 11/28/2016 TRIAMCINOLONE ACET I [place] NOS CPT-4: J3301 11/28/2016 Vital Signs Date Vital 06/28/2018 Blood Pressure 1: 110/66 Code: 8480-6 BMI: 37.1 Code: 63046-0 Heart Rate 1: 73 bpm Height: 5'6" SpO2: 98% Weight: 230 lbs 04/04/2018 Blood Pressure 1: 128/76 Code: 8480-6 BMI: 37.9 Code: 71921-8 Heart Rate 1: 86 bpm Height: 5'6" SpO2: 98% Weight: 235 lbs 01/19/2018 Blood Pressure 1: 122/68 Code: 8480-6 Heart Rate 1: 78 bpm Height: 5'6" SpO2: 97% Weight: 01/05/2018 Blood Pressure 1: 138/78 Code: 8480-6 BMI: 38.4 Code: 75987-9 Heart Rate 1: 73 bpm Height: 5'6" SpO2: 95% Weight: 238 lbs 11/29/2017 Blood Pressure 1: 138/80 Code: 8480-6 BMI: 38.7 Code: 41080-5 Heart Rate 1: 71 bpm Height: 5'6" SpO2: 97% Weight: 240 lbs 10/25/2017 Blood Pressure 1: 136/72 Code: 8480-6 BMI: 38.7 Code: 54099-0 Heart Rate 1: 92 bpm Height: 5'6" SpO2: 98% Weight: 240 lbs 09/12/2017 Blood Pressure 1: 132/68 Code: 8480-6 BMI: 39.7 Code: 77580-5 Heart Rate 1: 76 bpm Height: 5'6" SpO2: 98% Weight: 246 lbs 06/14/2017 Blood Pressure 1: 130/80 Code: 8480-6 BMI: 39.4 Code: 56583-8 Heart Rate 1: 73 bpm Height: 5'6" SpO2: 95% Temperature: 36.9 (C ) / 98.5 (F) Weight: 244 lbs 05/10/2017 Blood Pressure 1: 128/68 Code: 8480-6 BMI: 38.7 Code: 68159-7 Heart Rate 1: 69 bpm Height: 5'6" SpO2: 97% Weight: 240 lbs 04/19/2017 Blood Pressure 1: 138/74 Code: 8480-6 BMI: 38.7 Code: 17647-0 Heart Rate 1: 73 bpm Height: 5'6" SpO2: 96% Weight: 240 lbs 03/27/2017 Blood Pressure 1: 142/84 Code: 8480-6 BMI: 38.7 Code: 17712-5 Heart Rate 1: 69 bpm Height: 5'6" SpO2: 97% Weight: 240 lbs 01/26/2017 Blood Pressure 1: 136/68 Code: 8480-6 Heart Rate 1: 64 bpm Height: 5'6" SpO2: 96% Weight: 12/07/2016 Blood Pressure 1: 130/72 Code: 8480-6 BMI: 39.7 Code: 48624-7 Heart Rate 1: 73 bpm Height: 5'6" SpO2: 93% Temperature: 36.8 (C ) / 98.3 (F) Weight: 246 lbs 11/28/2016 Blood Pressure 1: 138/60 Code: 8480-6 BMI: 39.7 Code: 69253-2 Heart Rate 1: 81 bpm Height: 5'6" SpO2: 97% Weight: 246 lbs 11/15/2016 Blood Pressure 1: 134/78 Code: 8480-6 BMI: 39.7 Code: 48126-7 Heart Rate 1: 75 bpm Height: 5'6" SpO2: 93% Temperature: 36.8 (C ) / 98.2 (F) Weight: 246 lbs 10/17/2016 Blood Pressure 1: 120/64 Code: 8480-6 BMI: 38.4 Code: 71286-9 Heart Rate 1: 69 bpm Height: 5'6" SpO2: 98% Temperature: 37.2 (C ) / 98.9 (F) Weight: 238 lbs 09/28/2016 Blood Pressure 1: 158/76 Code: 8480-6 BMI: 39.4 Code: 70690-6 Heart Rate 1: 71 bpm Height: 5'6" SpO2: 97% Weight: 244 lbs 06/29/2016 Blood Pressure 1: 124/60 Code: 8480-6 BMI: 38.7 Code: 11274-2 Heart Rate 1: 71 bpm Height: 5'6" SpO2: 98% Weight: 240 lbs 06/01/2016 Blood Pressure 1: 120/62 Code: 8480-6 BMI: 38.6 Code: 51242-4 Heart Rate 1: 76 bpm Height: 5'6" SpO2: 98% Weight: 239 lbs 05/11/2016 Blood Pressure 1: 140/80 Code: 8480-6 BMI: 38.1 Code: 86604-2 Heart Rate 1: 88 bpm Height: 5'6" SpO2: 97% Weight: 236 lbs 04/05/2016 Blood Pressure 1: 142/80 Code: 8480-6 BMI: 38.4 Code: 73276-3 Heart Rate 1: 96 bpm Height: 5'6" SpO2: 98% Weight: 238 lbs 04/01/2016 Blood Pressure 1: 136/88 Code: 8480-6 BMI: 39.2 Code: 90595-9 Heart Rate 1: 86 bpm Height: 5'6" SpO2: 96% Weight: 243 lbs 01/26/2016 Blood Pressure 1: 124/76 Code: 8480-6 BMI: 39.2 Code: 74509-9 Heart Rate 1: 76 bpm Height: 5'6" SpO2: 97% Weight: 243 lbs 12/21/2015 Blood Pressure 1: 120/64 Code: 8480-6 BMI: 37.0 Code: 33259-3 Heart Rate 1: 98 bpm Height: 5'6" SpO2: 97% Weight: 229 lbs 10/12/2015 Blood Pressure 1: 150/64 Code: 8480-6 BMI: 37.4 Code: 36859-2 Heart Rate 1: 70 bpm Height: 5'6" SpO2: 94% Weight: 232 lbs 08/24/2015 Blood Pressure 1: 128/74 Code: 8480-6 BMI: 36.8 Code: 48488-3 Heart Rate 1: 88 bpm Height: 5'6" SpO2: 94% Temperature: 36.8 (C ) / 98.3 (F) Weight: 228 lbs 06/01/2015 Blood Pressure 1: 134/68 Code: 8480-6 BMI: 36.0 Code: 99238-3 Heart Rate 1: 70 bpm Height: 5'6" SpO2: 98% Weight: 223 lbs 05/21/2015 Blood Pressure 1: 126/72 Code: 8480-6 BMI: 35.2 Code: 50771-8 Heart Rate 1: 63 bpm Height: 5'6" SpO2: 95% Weight: 218 lbs 5 oz 03/26/2015 Blood Pressure 1: 140/62 Code: 8480-6 BMI: 35.3 Code: 58940-8 Heart Rate 1: 68 bpm Height: 5'6" Weight: 219 lbs 03/11/2015 Blood Pressure 1: 130/80 Code: 8480-6 BMI: 34.9 Code: 71472-6 Heart Rate 1: 76 bpm Height: 5'6" Temperature: 37.1 (C ) / 98.7 (F) Weight: 216 lbs 12/11/2014 Blood Pressure 1: 134/62 Code: 8480-6 BMI: 34.2 Code: 89431-5 Heart Rate 1: 72 bpm Height: 5'6" Weight: 212 lbs 09/18/2014 Blood Pressure 1: 148/80 Code: 8480-6 BMI: 34.7 Code: 59513-7 Heart Rate 1: 68 bpm Height: 5'6" Weight: 215 lbs 07/31/2014 Blood Pressure 1: 124/72 Code: 8480-6 BMI: 36.2 Code: 55465-0 Heart Rate 1: 68 bpm Height: 5'6" Weight: 224 lbs Functional Status No Functional Status data History of Present Illness Symptom Name Status Resu lt Effective Date Notes eye erythema Location in both conjunctiva 06/28/2018 [...] mi ld 09/28/2016 None 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/28/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 None hypothyroid Onset and Resolution [...] mi ld 06/01/2016 None 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/01/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 None hypothyroid Onset and Resolution [...] Resolution resolved 04/05/2016 None 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 [facility] Diagnosis: Acute recurrent maxillary sinusitis[ICD10: J01.01] Diagnosis: Other mucopurulent conjunctivitis, left eye[ICD10: H10.022] Diagnosis: Other allergic rhinitis[ICD10: J30.89] Lynn Finn MD, [facility] CPT-4: 68302 06/28/2018 71552 EST. PATIENT, LEVEL IV Diagnosis: Essential (primary) hypertension[ICD10: I10] Diagnosis: Other specified hypothyroidism[ICD10: E03.8] Diagnosis: Other specified anemias[ICD10: D64.89] Diagnosis: Localized edema[ICD10: R60.0] Mishel Finn MD, [facility] CPT-4: 26113 04/04/2018 ([id number]) 12151 EST. [facility] Diagnosis: Mild persistent asthma, uncomplicated[ICD10: J45.30] Diagnosis: Actinic keratosis[ICD10: L57.0] Lynn Finn MD, [facility] CPT- 4: 44239 01/05/2018 ([id number]) Miscellaneou s no charge Diagnosis: Essential (primary) hypertension[ICD10: I10] Damari Finn MD, [facility] CPT-4: 16330 12/12/2017 21901 EST. PATIENT, LEVEL III Diagnosis: Essential (primary) hypertension[ICD10: I10] Diagnosis: Atrophy of thyroid (acquired)[ICD10: E03.4] Diagnosis: Low back pain[ICD10: M54.5] Mishel Finn MD, [facility] CPT-4: 71458 11/29/2017 92245 EST. PATIENT, LEVEL III Diagnosis: Pain in left hip[ICD10: M25.552] Mishel Finn MD, [facility] CPT-4: 10688 10/25/2017 [id number] EST. PATIENT, LEVEL IV Diagnosis: Localized edema[ICD10: R60.0] Mishel Finn MD, [facility] CPT-4: 50050 09/12/2017 05473 EST. PATIENT, LEVEL IV Diagnosis: Mild persistent asthma with (acute) exacerbation[ICD10: J45.31] Mishel Finn MD, [facility] CPT-4: 55063 06/14/2017 14128 EST. PATIENT, LEVEL III Diagnosis: Localized edema[ICD10: R60.0] Diagnosis: Mild persistent asthma, uncomplicated[ICD10: J45.30] Mishel Finn MD, [facility] CPT-4: 46030 05/10/2017 34748 EST. PATIENT, LEVEL III Diagnosis: Mild persistent asthma with (acute) exacerbation[ICD10: J45.31] Mishel Finn MD, [facility] CPT-4: 75799 04/19/2017 ([id number]) 10460 EST. P ATIENT, LEVEL IV Diagnosis: Contusion of left wrist, initial encounter[ICD10: S60.212A] Diagnosis: Hypothyroidism, unspecified[ICD10: E03.9] Diagnosis: Mild persistent asthma with (acute) exacerbation[ICD10: J45.31] Diagnosis: Low back pain[ICD10: M54.5] Lynn Finn MD, [facility] CPT- 4: 13966 03/27/2017 ([id number]) 84602 EST. P ATIENT, LEVEL IV Diagnosis: Essential (primary) hypertension[ICD10: I10] Diagnosis: Atrophy of thyroid (acquired)[ICD10: E03.4] Diagnosis: Low back pain[ICD10: M54.5] Damari Finn MD, [facility] CPT-4: 49431 01/26/2017 63376 EST. PATIENT, LEVEL III Diagnosis: Other allergic rhinitis[ICD10: J30.89] Diagnosis: Mild persistent asthma with (acute) exacerbation[ICD10: J45.31] Mishel Finn MD, [facility] CPT-4: 25426 12/07/2016 41262 EST. PATIENT, LEVEL III Diagnosis: Mild persistent asthma with (acute) exacerbation[ICD10: J45.31] Mishel Finn MD, [facility] CPT-4: 36383 11/28/2016 [id number] EST. PATIENT, LEVEL III Diagnosis: Mild persistent asthma with (acute) exacerbation[ICD10: J45.31] Diagnosis: Acute bronchitis due to other specified organisms[ICD10: J20.8] Mishel Finn MD, [facility] CPT-4: 58986 11/15/2016 91206 EST. PATIENT, LEVEL IV Diagnosis: Other acute sinusitis[ICD10: J01.80] Diagnosis: Other allergic rhinitis[ICD10: J30.89] Diagnosis: Mild persistent asthma with (acute) exacerbation[ICD10: J45.31] Mishel Finn MD, [facility] CPT-4: 02840 10/17/2016 ([id number]) 38106 EST. P ATIENT, LEVEL IV Diagnosis: Essential (primary) hypertension[ICD10: I10] Diagnosis: Low back pain[ICD10: M54.5] Damari Finn MD, [facility] CPT-4: 39870 09/28/2016 04400 EST. PATIENT, LEVEL III Diagnosis: Tinea barbae and tinea capitis[ICD10: B35.0] Diagnosis: Other specified hypothyroidism[ICD10: E03.8] Mishel Finn MD, [facility] CPT-4: 98515 06/29/2016 ([id number]) 77410 EST. P ATIENT, LEVEL IV Diagnosis: Essential (primary) hypertension[ICD10: I10] Diagnosis: Atrophy of thyroid (acquired)[ICD10: E03.4] Diagnosis: Rash and other nonspecific skin eruption[ICD10: R21] Damari Finn MD, [facility] CPT-4: 90335 06/01/2016 ([id number]) 61784 EST. P ATIENT, LEVEL III Diagnosis: Cellulitis of groin[ICD10: L03.314] Damari Finn MD, [facility] CPT- 4: 97875 05/11/2016 ([id number]) 26495 EST. P ATIENT, LEVEL IV Diagnosis: Hypothyroidism, unspecified[ICD10: E03.9] Diagnosis: Candidiasis of vulva and vagina[ICD10: B37.3] Diagnosis: Essential (primary) hypertension[ICD10: I10] Diagnosis: Low back pain[ICD10: M54.5] Lynn Finn MD, [facility] CPT- 4: 10266 04/05/2016 [id number] EST. PATIENT, LEVEL III Diagnosis: Other acute sinusitis[ICD10: J01.80] Diagnosis: Rash and other nonspecific skin eruption[ICD10: R21] Mishel Finn MD, [facility] CPT-4: 23768 04/01/2016 ([id number]) 30602 EST. P ATIENT, LEVEL IV Diagnosis: Essential (primary) hypertension[ICD10: I10] Diagnosis: Hypothyroidism, unspecified[ICD10: E03.9] Diagnosis: Low back pain[ICD10: M54.5] Diagnosis: Other obesity due to excess calories[ICD10: E66.09] Lynn Finn MD, [facility] CPT-4: 06809 01/26/2016 01855 EST. PATIENT, LEVEL IV Diagnosis: Essential (primary) hypertension[ICD10: I10] Diagnosis: Cutaneous abscess of face[ICD10: L02.01] Mishel Finn MD, [facility] CPT-4: 77348 12/21/2015 ([id number]) 79298 EST. P ATIENT, LEVEL III Diagnosis: Cutaneous abscess of groin[ICD10: L02.214] Diagnosis: Hypothyroidism, unspecified[ICD10: E03.9] Lynn Finn MD, [facility] CPT-4: 84110 10/12/2015 ([id number]) 05757 EST. P ATIENT, LEVEL III Diagnosis: Essential (primary) hypertension[ICD10: I10] Diagnosis: Hypothyroidism, unspecified[ICD10: E03.9] Diagnosis: Allergic rhinitis, unspecified[ICD10: J30.9] Lynn Finn MD, [facility] CPT-4: 58811 08/24/2015 ([id number]) 81232 EST. P ATIENT, LEVEL III Diagnosis: Skin infection[ICD9: 686.9] Damari Finn MD, [facility] CPT-4: 17543 06/01/2015 ([id number]) 08644 EST. P ATIENT, LEVEL III Diagnosis: Hypothyroidism[ICD9: 244.9] Diagnosis: ESSENTIAL HYPERTENSION[ICD9: 401.9] Damari Finn MD, [facility] CPT- 4: 16310 05/21/2015 ([id number]) 64527 EST. P ATIENT, LEVEL III Diagnosis: Hypothyroidism[ICD9: 244.9] Diagnosis: Fingernail abnormalities[ICD9: 703.8] Lynn Finn MD, [facility] CPT-4: 38555 03/26/2015 ([id number]) 96719 EST. P ATIENT, LEVEL II Diagnosis: Hypothyroidism[ICD9: 244.9] Maritza Finn MD, [facility] CPT-4: 44387 03/11/2015 ([id number]) 92319 EST. P ATIENT, LEVEL IV Diagnosis: ESSENTIAL HYPERTENSION[ICD9: 401.9] Diagnosis: Low back pain[ICD9: 724.2] Diagnosis: Hypothyroidism[ICD9: 244.9] Damari Finn MD, [facility] CPT-4: 62851 12/11/2014 ([id number]) 88583 EST. P ATIENT, LEVEL IV Diagnosis: Hidradenitis suppurativa[ICD9: 705.83] Diagnosis: ESSENTIAL HYPERTENSION[ICD9: 401.9] Diagnosis: Low back pain[ICD9: 724.2] Diagnosis: Lumbar spinal stenosis[ICD9: 724.02] Diagnosis: HYPOTHYROIDISM[ICD9: 244.9] [facility] CPT-4: 53804 09/18/2014 Office outpatient ne w 30 minutes Diagnosis: ESSENTIAL HYPERTENSION[ICD9: 401.9] Diagnosis: Hypothyroidism[ICD9: 244.9] Diagnosis: Low back pain[ICD9: 724.2] [facility] CPT- 4: 37210 07/31/2014 Plan of Care Planned Activity Notes C odes Status Date App[facility]ment[facility] [phone] [phone] [place] ([facility] min) Complex 10/26/2018 Patient Education: Patient Medication Summary Completed 10/23/2018 Appointment: [facility] [phone] [phone] [place] (15 min) Moderate 10/19/2018 [phone] ([facility]) Moderate 09/19/2018 Visit Plan: [...] daily. 06/28/2018 Appointment: [facility] [phone] [phone] (30 min) Complex 06/28/2018 Patient [...] to monitor. 04/04/2018 Appointment: Mis[facility] Bal[facility] [phone] [facility] (15 min) Moderate 04/04/2018 Patient Education: Patient Medication Summary Completed 04/04/2018 Visit Plan: Wound Instructions - Pt was instructed to keep the wound clean, wash with antibacterial soap, use triple antibiotic ointment, call if redness, pustular drainage, or any other acute concerns. 01/19/2018 Appointment: [facility] [phone] [phone] (30 min) Complex 01/19/2018 Patient Education: [...] concerns. 01/05/2018 Appointment: Lynn Arenas WPtel: [phone] [phone] [place] (30 min) Complex 01/05/2018 Patient Education: [...] worsening or does not improve. 11/29/2017 Appointment: Misehl Balderr[facility] [phone] [facility] (30 min) Complex 11/29/2017 Patient Education: [...] improve. 10/25/2017 Appointment: Mis[facility] Balderr[facility]el[facility] [address] [facility] [place] (30 min) [...] edema. 09/12/2017 Appointment: Mishel Balderrama WPtel: [phone] [facility] [place] (30 min) Complex 09/12/2017 Patient Education: Patient Medication Summary Completed 09/12/2017 Appointment: [facility] [phone] [phone] [place] (30 min) [...] changes. 06/14/2017 Appointment: Mis[facility] Bal[facility] [phone] [facility] [place] (15 min) Moderate 06/14/2017 [...] acute changes 05/10/2017 Appointment: Mishel Balderramatel: [phone] [facility] (15 min) Moderate 05/10/2017 Patient Education: Patient [...] changes. 04/19/2017 Appointment: Mis[facility] Bal[facility] [phone] [facility] (15 min) Moderate [...] on previous levels of control. Low back ezgu-rvgoukv-uqdfur tramadol for prn use 03/27/2017 Appointment: Lynn Arenas [facility]Ptel: [phone] [facility] [...] improve. 01/26/2017 App[facility]ment: [phone] [facility] ([facility] min) Moderate 01/26/2017 Patient Education: [...] symptoms. 11/28/2016 Appointment: Mis[facility] Balderr[facility]el[facility] [phone] [facility] (15 min) Moderate 11/28/2016 Patient Education: Patient Medication Summary Completed 11/28/2016 Appointment: Mishel Balderrama WPtel: [phone] [facility] (15 min) Moderate 11/24/2016 Visit Plan: Bronchitis [...] changes. 11/15/2016 Appointment: Mishel Balderrama WPtel: [phone] [facility] (30 min) Complex 11/15/2016 Patient Education: Patient [...] changes. 10/17/2016 Appointment: [facility] Bal[facility] [phone] [facility] ([facility] min) Complex 10/17/2016 Patient [...] prn tylenol 09/28/2016 Appointment: Damari Finn WPtel: [phone] [facility] [place] (15 min) Moderate 09/28/2016 Patient Education: [...] control. 06/29/2016 Appointment: Lynn Arenas WPtel: [phone] [phone] [place] (15 min) Moderate 06/29/2016 Patient Education: [...] fluconazole 06/01/2016 Appointment: Damari Finn WPtel: [phone] [facility] [place] (15 min) Moderate 06/01/2016 Patient Education: Patient Medication Summary Completed 06/01/2016 Patient Education: Obesity Completed 06/01/2016 Visit Plan: Cellulitis - continue w ith oral antibiotics as previously directed, return to clinic as previously directed, call for acute change in symptoms, worsening redness, warmth, discharge. 05/11/2016 App[facility]ment: [phone] [facility] ([facility] min) Moderate 05/11/2016 Patient Education: [...] any concerns. 04/01/2016 Appointment: [facility]Ptel[facility] [phone] [phone] (30 min) Complex 04/01/2016 Patient Education: Patient Medication Summary Completed 04/01/2016 Patient Education: Obesity Completed 04/01/2016 Appointment: Lynn Arenas WPtel: [phone] (30 min) Complex 03/29/2016 Visit Plan: Hypertension [...] levels of control. Low back pain-refill tramadol Ltgmo-zytjejumqw-bhzkbecz resolved 01/26/2016 Appointment: Lynn Arenas WPtel: [phone] (30 min) Complex 01/26/2016 Patient Education: Patient Medication Summary Completed 01/26/2016 Patient Education: Obesity Completed 01/26/2016 Care Plan: BMI Above normal followup RADHA F-MGMT EDUC & TRAIN 1 PT Pending 01/26/2016 Care Plan: Referral Order SNOMED-CT : [id number] Pending 01/07/2016 Appointment: Lynn Arenas WPtel: [phone] (15 min) Moderate 12/24/2015 Visit Plan: [...] based on previous levels of control. A ergies - chronic - recommended pt to use [...] nor improving. 06/01/2015 Appointment: Damari Finn WPtel: [facility] ([facility]) Moderate 06/01/2015 Patient Education: [...] tramadol 12/11/2014 App[facility]ment: [phone] [facility] [facility] follow up 12/11/2014 Patient Education: Patient Medication Summary Completed 12/11/2014 Patient Education: Hypertension Completed 12/11/2014 Appointment: Damari Finn WPtel: [facility] [facility] follow up 11/27/2014 Visit Plan: Hidradenitis [...] to get her back MRI done at [facility] in [place] as that is where her specialist will be once we get her an appt with one of the local Neurosurgeons. 09/18/2014 Appointment: Damari Finn WPtel: [address] [place], [place] [phone] Follow up 09/18/2014 Patient Education: Patient Medication [...] as scheduled 07/31/2014 Appointment: Lynn Arenas WPtel: [phone] New Patient 07/31/2014 [...] levels of control. Low back pain-refill tramadol Ojhah-hegklljblf-upppesfu resolved . 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 Low back ofqr-ixkuzll-fuvocq tramadol for prn use . Brittle fingernail [...] attempt to reduce peripheral edema. Declined Procedure: (16957) FLU VAC NO PRSV 4 JUSTYNA 3 YRS+; Declined Reason: refused Physical therapy at [facility] . Hypertension - well controlled - oleg [...] L4/L5-follow up with Dr Lincoln as scheduled restart lisinopril/h CTZ - this will help [...] Anemia - will continue to monitor. . Skin infection - r ecommended treatment [...] Chronic back pain - refill tramadol . Bronchitis - acute case of bronchitis [...] pain is worsening or does not improve. I will call your tra lizzethol to [...] consequences of over-medication. Yeast infection-RX for diflucan claritin or zyrtec . Sinusitis - Pt [...] into affected eye four times daily. . Tinea of the scalp - will [...] to get her back MRI done at [facility] in [place] as that is where her specialist will [...]
--- OUTSIDE RECORDS SUMMARY | 2020-02-20 19:31 | XMS REPORT | CCD ---
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 Unknown Has never used illegal drugs 014 Allergies, Adverse Reactions, Alerts Substance Reaction Codes Entered Date Inactivated Date Status * NO KNOWN FOOD BEVERLY RGIES Unknown 07/31/2014 No Inactive Date Active bactrim hives, rash RxNorm: 114108 04/05/2016 No Inactive Date Active Past Medical [...] Stop Date Sta tus Fill Instructions levothyroxine 125 mc g tablet RxNorm: 932392 1 Tablet(s) PO daily TAKE ONE TABLET BY MOUTH DAILY ON AN EMPTY STOMACH 09/06/2018 11/29/2019 Active lorazepam 1 mg tablet RxNorm: 770470 Tablet(s) TAKE TWO TABLETS BY MOUTH AT B EDTIME NEEDED FOR INSOMNIA AND ONE TABLET DAILY NEEDED ANXIETY 09/06/2018 11/04/2018 Active tramadol 50 mg tablet RxNorm: 299211 1 Tablet(s) PO Q4 PRN as needed for pain 09/06/2018 10/15/2018 In active tramadol 50 mg tablet RxNorm: 094709 1 Tablet(s) PO Q4 PRN as needed for pain 07/06/2018 08/14/2018 In active ciprofloxacin 0.3 % eye drops RxNorm: 549212 2 Drop(s) ophthalmic (eye) TID 06/28/2018 07/07/2018 In active lorazepam 1 mg tablet RxNorm: 636219 Tablet(s) TAKE TWO TABLETS BY MOUTH AT B EDTIME NEEDED FOR INSOMNIA AND ONE TABLET DAILY NEEDED ANXIETY 06/28/2018 08/26/2018 Inactive doxycycline hyclate 100 mg tablet RxNorm: 0715416 1 Tablet(s) PO BID 06/28/2018 07/04/2018 Inactive tramadol 50 mg tablet RxNorm: 261816 1 Tablet(s) PO Q4 PRN as needed for pain 06/13/2018 07/05/2018 In active lorazepam 1 mg tablet RxNorm: 982806 Tablet(s) TAKE TWO TABLETS BY MOUTH AT B EDTIME NEEDED FOR INSOMNIA AND ONE TABLET DAILY NEEDED ANXIETY 05/23/2018 06/27/2018 Inactive tramadol 50 mg tablet RxNorm: 721735 1 Tablet(s) PO Q4 PRN as needed for pain 05/23/2018 06/12/2018 In active levothyroxine 125 mc g tablet RxNorm: 937731 Tablet(s) TAKE ONE TA BLET BY MOUTH DAILY ON AN EMPTY STOMACH 05/23/2018 09/05/2018 Inactive tramadol 50 mg tablet RxNorm: 449218 1 Tablet(s) PO Q4 PRN as needed for pain 05/17/2018 05/22/2018 In active levothyroxine 125 mc g tablet RxNorm: 930631 TAKE ONE TABLET BY [facility] DAILY 05/15/2018 06/27/2018 In active levothyroxine 125 mc g tablet RxNorm: 326952 TAKE ONE TABLET BY [facility] DAILY 05/15/2018 06/27/2018 In active tramadol 50 mg tablet RxNorm: 448295 1 Tablet(s) PO Q4 PRN as needed for pain 04/30/2018 05/16/2018 In active Advair Diskus 100 mc g-50 mcg/dose powder for inhalation RxNorm: 0227465 1 Puff(s) INH BID 04/06/2018 No Stop Date Active Symbicort 80 mcg-4.5 mcg/actuation HFA aerosol inhaler RxNorm: 9714140 2 Puff(s) INH BID 04/06/2018 No Stop Date Active Advair Diskus 250 mc g-50 mcg/dose powder for inhalation RxNorm: 3169657 1 Puff(s) INH BID 04/05/2018 09/01/2018 Inactive lisinopril 20 mg-hyd rochlorothiazide 25 mg tablet RxNorm: 388128 Tablet(s) TAKE ONE TABLET BY MOUTH DAILY 04/05/2018 09/01/2018 Inactive Zyrtec 10 mg tablet RxNorm: 4724059 1 Tablet(s) PO daily x1 week then PRN 04/05/2018 08/02/2018 In active Zyrtec 10 mg tablet RxNorm: 7388541 1 Tablet(s) PO daily 04/04/2018 05/03/2018 Inactive tramadol 50 mg tablet RxNorm: 999105 1 Tablet(s) PO Q4 PRN as needed for pain 03/13/2018 04/21/2018 In active lorazepam 1 mg tablet RxNorm: 537449 Tablet(s) TAKE TWO TABLETS BY MOUTH AT B EDTIME NEEDED FOR INSOMNIA AND ONE TABLET DAILY NEEDED ANXIETY 03/02/2018 04/30/2018 Inactive levothyroxine 125 mc g tablet RxNorm: 099702 1 Tablet(s) PO daily 02/06/2018 05/06/2018 Inactive levothyroxine 125 mc g tablet RxNorm: 685894 TAKE ONE TABLET BY [facility] DAILY ON AN EMPTY STOMACH 02/06/2018 05/22/2018 Inactive tramadol 50 mg tablet RxNorm: 382086 1 Tablet(s) PO Q4 PRN as needed for pain 01/26/2018 03/06/2018 In active lorazepam 1 mg tablet RxNorm: 424536 Tablet(s) TAKE TWO TABLETS BY MOUTH AT B EDTIME NEEDED FOR INSOMNIA AND ONE TABLET DAILY NEEDED ANXIETY 01/23/2018 06/27/2018 Inactive Symbicort 80 mcg-4.5 mcg/actuation HFA aerosol inhaler RxNorm: 2203828 INH 01/05/2018 06/27/2018 In active tramadol 50 mg tablet RxNorm: 371186 1 Tablet(s) PO Q4 PRN as needed for pain 01/04/2018 01/25/2018 In active Advair Diskus 250 mc g-50 mcg/dose powder for inhalation RxNorm: 6355747 1 Puff(s) INH BID 11/29/2017 03/28/2018 Inactive hydrochlorothiazide 12.5 mg tablet RxNorm: 207338 1 Tablet(s) PO daily 11/29/2017 12/28/2017 In active tramadol 50 mg tablet RxNorm: 234935 1 Tablet(s) PO Q4 PRN as needed for pain 11/23/2017 01/01/2018 In active tramadol 50 mg tablet RxNorm: 720488 1 Tablet(s) PO Q4 PRN as needed for pain 10/06/2017 11/14/2017 In active lorazepam 1 mg tablet RxNorm: 247276 Tablet(s) TAKE TWO TABLETS BY MOUTH AT B EDTIME NEEDED FOR INSOMNIA AND ONE TABLET DAILY NEEDED ANXIETY 09/12/2017 06/27/2018 Inactive tramadol 50 mg tablet RxNorm: 537373 1 Tablet(s) PO Q4 PRN as needed for pain 09/12/2017 10/05/2017 In active tramadol 50 mg tablet RxNorm: 164128 1 Tablet(s) PO Q4 PRN as needed for pain 08/15/2017 09/11/2017 In active tramadol 50 mg tablet RxNorm: 443316 1 Tablet(s) PO Q4 PRN as needed for pain 06/29/2017 08/07/2017 In active ProAir HFA 90 mcg/ac tuation aerosol inhaler RxNorm: 218959 INHALE 1 TO 2 PUFFS F OUR TIMES A DAY NEEDED FOR ASTHMA 06/14/2017 11/10/2017 Inactive prednisone 20 mg tablet RxNorm: 877113 1 Tablet(s) PO BID x 2 days, then 1 pill daily x 3 days, then 1/2 pill every other day x 3 doses. 06/14/2017 09/11/2017 Inactive Kenalog 40 mg/mL madhavi pension for injection RxNorm: 7284400 1 Milliliter(s) Inj 06/14/2017 06/14/2017 In active Zyrtec 10 mg tablet RxNorm: 5195643 1 Tablet(s) PO daily 06/14/2017 07/13/2017 Inactive tramadol 50 mg tablet RxNorm: 065100 1 Tablet(s) PO Q4 PRN as needed for pain 06/08/2017 06/27/2017 In active [SAVINGS FOR UNINSURED PATIENTS -- BIN:0 08336, PCN: ASPROD1, Group: [id number], ID# [id number], Process claim through [employer] for questions: . THIS IS NOT INSURANCE.] tramadol 50 mg tablet RxNorm: 833338 1 Tablet(s) PO Q4 PRN as needed for pain 05/16/2017 06/04/2017 In active [SAVINGS FOR UNINSURED PATIENTS -- BIN:0 90104, PCN: ASPROD1, Group: [id number], ID# [id number], Process claim through [employer] for questions: . THIS IS NOT INSURANCE.] lorazepam 1 mg tablet RxNorm: 002183 Tablet(s) TAKE TWO TABLETS BY MOUTH AT B EDTIME NEEDED FOR INSOMNIA AND ONE TABLET DAILY NEEDED ANXIETY 05/16/2017 08/13/2017 Inactive Lasix 20 mg tablet RxNorm: 630113 1 Tablet(s) PO daily 05/10/2017 05/09/2017 Inactive Lasix 20 mg tablet RxNorm: 838292 1 Tablet(s) PO daily 05/10/2017 05/12/2017 Inactive potassium chloride E R 10 mEq tablet,extended release RxNorm: 617778 1 Tablet(s) PO daily while on the lasix 05/10/2017 05/09/2017 Inactive potassium chloride E R 10 mEq tablet,extended release RxNorm: 017845 1 Tablet(s) PO daily while on the lasix 05/10/2017 05/12/2017 Inactive prednisone 20 mg tablet RxNorm: 570479 1 Tablet(s) PO BID x 2 days, then 1 pill daily x 3 days, then 1/2 pill every other day x 3 doses. 04/19/2017 06/13/2017 Inactive Zithromax Z-Linus 250 mg tablet RxNorm: 353924 1 Tablet(s) PO UD 04/13/2017 06/28/2017 Inactive prednisone 20 mg tablet RxNorm: 761049 1 Tablet(s) PO BID 04/13/2017 04/17/2017 Inactive levothyroxine 125 mc g tablet RxNorm: 828363 1 Tablet(s) PO daily 04/11/2017 10/07/2017 Inactive tramadol 50 mg tablet RxNorm: 274443 1 Tablet(s) PO Q4 PRN as needed for pain 03/27/2017 04/15/2017 In active [SAVINGS FOR UNINSURED PATIENTS -- BIN:0 97218, PCN: ASPROD1, Group: [id number], ID# [id number], Process claim through [employer] for questions: . THIS IS NOT INSURANCE.] Kenalog 40 mg/mL madhavi pension for injection RxNorm: 2732078 1 Milliliter(s) Inj 03/27/2017 03/27/2017 In active tramadol 50 mg tablet RxNorm: 928801 1 Tablet(s) PO Q4H as needed for pain 03/09/2017 03/26/2017 In active [SAVINGS FOR UNINSURED PATIENTS -- BIN:0 75743, PCN: ASPROD1, Group: [id number], ID# [id number], Process claim through [employer] for questions: . THIS IS NOT INSURANCE.] lisinopril 20 mg-hyd rochlorothiazide 25 mg tablet RxNorm: 970709 TAKE ONE TABLET BY MOUTH DAILY 01/29/2017 11/21/2017 Inactive lorazepam 1 mg tablet RxNorm: 202262 Tablet(s) TAKE TWO TABLETS BY MOUTH AT B EDTIME NEEDED FOR INSOMNIA AND ONE TABLET DAILY NEEDED ANXIETY 01/05/2017 04/04/2017 Inactive tramadol 50 mg tablet RxNorm: 428616 1 Tablet(s) PO Q4H as needed for pain 12/07/2016 01/13/2017 In active [SAVINGS FOR UNINSURED PATIENTS -- BIN:0 01607, PCN: ASPROD1, Group: [id number], ID# [id number], Process claim through [employer] for questions: . THIS IS NOT INSURANCE.] Kenalog 40 mg/mL madhavi pension for injection RxNorm: 2455340 Milliliter(s) Inj 12/07/2016 12/07/2016 In active nystatin 100,000 uni t/mL oral suspension RxNorm: 836766 4 Milliliter(s) PO QI D 12/07/2016 12/11/2016 In active Francia-D 12 Hour 60 mg-120 mg tablet,extended release RxNorm: 124117 1 Tablet(s) PO BID 12/07/2016 01/11/2017 Inactive lorazepam 1 mg tablet RxNorm: 299385 Tablet(s) TAKE TWO TABLETS BY MOUTH AT B EDTIME AND ONE TABLET DAILY NEEDED 12/07/2016 01/04/2017 Inactive (Response to an electronic controlled substance refill request - RxReferenceNumber: [id number]) albuterol sulfate 2. 5 mg/3 mL (0.083 %) solution for nebulization RxNorm: 569551 3 Milliliter(s) INH TID 11/29/2016 11/28/2016 Inactive prednisone 10 mg tablet RxNorm: 732206 Tablet(s) PO UD 11/29/2016 12/05/2016 Inactive 6,5,4,3,2,1 doxycycline hyclate 100 mg tablet RxNorm: 785854 1 Tablet(s) PO BID 11/29/2016 12/04/2016 Inactive albuterol sulfate 2. 5 mg/3 mL (0.083 %) solution for nebulization RxNorm: 174285 3 Milliliter(s) INH TID 11/29/2016 12/03/2016 Inactive Kenalog 40 mg/mL madhavi pension for injection RxNorm: 1233324 Milliliter(s) Inj 11/28/2016 11/28/2016 In active tramadol 50 mg tablet RxNorm: 560039 1 Tablet(s) PO Q4H as needed for pain 11/15/2016 12/06/2016 In active [SAVINGS FOR UNINSURED PATIENTS -- BIN:0 36096, PCN: ASPROD1, Group: [id number], ID# [id number], Process claim through [employer] for questions: . THIS IS NOT INSURANCE.] prednisone 20 mg tablet RxNorm: 737363 2 Tablet(s) PO daily 11/15/2016 11/19/2016 Inactive Advair Diskus 100 mc g-50 mcg/dose powder for inhalation RxNorm: 0512832 1 Puff(s) INH BID 11/15/2016 06/11/2017 Inactive ProAir HFA 90 mcg/ac tuation aerosol inhaler RxNorm: 705015 INHALE 1 TO 2 PUFFS F OUR TIMES A DAY NEEDED FOR ASTHMA 11/15/2016 04/13/2017 Inactive Zithromax Z-Linus 250 mg tablet RxNorm: 322982 1 Tablet(s) PO UD 11/15/2016 11/27/2016 Inactive Zyrtec 10 mg tablet RxNorm: 0693606 1 Tablet(s) PO daily 10/17/2016 11/15/2016 Inactive Keflex 500 mg capsule RxNorm: 841392 1 Capsule(s) PO TID 10/17/2016 10/23/2016 Inactive prednisone 10 mg tablet RxNorm: 592518 Tablet(s) PO UD 10/17/2016 11/28/2016 Inactive 6,5,4,3,2,1 tramadol 50 mg tablet RxNorm: 986296 1 Tablet(s) PO Q4H as needed for pain 09/28/2016 11/06/2016 In active [SAVINGS FOR UNINSURED PATIENTS -- BIN:0 08022, PCN: ASPROD1, Group: [id number], ID# [id number], Process claim through [employer] for questions: . THIS IS NOT INSURANCE.] ProAir HFA 90 mcg/ac tuation aerosol inhaler RxNorm: 183942 INHALE 1 TO 2 PUFFS F OUR TIMES A DAY NEEDED FOR ASTHMA 09/15/2016 11/14/2016 Inactive doxycycline hyclate 100 mg tablet RxNorm: 189717 1 Tablet(s) PO BID 09/15/2016 09/24/2016 Inactive doxycycline hyclate 100 mg tablet RxNorm: 958413 1 Tablet(s) PO BID 07/29/2016 08/07/2016 Inactive tramadol 50 mg tablet RxNorm: 153432 1 Tablet(s) PO Q4H as needed for pain 07/29/2016 09/06/2016 In active [SAVINGS FOR UNINSURED PATIENTS -- BIN:0 24763, PCN: ASPROD1, Group: [id number], ID# [id number], Process claim through [employer] for questions: . THIS IS NOT INSURANCE.] lorazepam 1 mg tablet RxNorm: 786140 Tablet(s) TAKE TWO TABLETS BY MOUTH AT B EDTIME AND ONE TABLET DAILY NEEDED 07/29/2016 10/26/2016 Inactive (Response to an electronic controlled substance refill request - RxReferenceNumber: [id number]) levothyroxine 125 mc g tablet RxNorm: 470149 1 Tablet(s) PO daily 06/29/2016 06/29/2016 Inactive levothyroxine 137 mc g tablet RxNorm: 125347 1 Tablet(s) PO daily 06/29/2016 12/25/2016 Inactive ketoconazole 2 % sha mpoo RxNorm: 624769 1 Application TOP BID 06/29/2016 07/03/2016 Inactive tramadol 50 mg tablet RxNorm: 656226 1 Tablet(s) PO Q4H as needed for pain 06/16/2016 07/25/2016 In active [SAVINGS FOR UNINSURED PATIENTS -- BIN:0 06166, PCN: ASPROD1, Group: [id number], ID# [id number], Process claim through [employer] for questions: . THIS IS NOT INSURANCE.] Bactroban 2 % topica l ointment RxNorm: 906602 APPLY TO AFFECTED ARE A(S) TWO TIMES A DAY 06/16/2016 04/16/2017 Inactive fluconazole 150 mg t ablet RxNorm: 025364 1 Tablet(s) PO daily 06/01/2016 06/05/2016 Inactive gentamicin 0.1 % top ical ointment RxNorm: 715918 1 Application TOP QID 05/12/2016 05/25/2016 In active metronidazole 500 mg tablet RxNorm: 612175 1 Tablet(s) PO TID 05/11/2016 05/24/2016 Inactive gentamicin 0.1 % top ical ointment RxNorm: 661882 1 Application TOP QID 05/11/2016 05/11/2016 In active doxycycline hyclate 100 mg tablet RxNorm: 352762 1 Tablet(s) PO BID 05/11/2016 05/24/2016 Inactive lorazepam 1 mg tablet RxNorm: 197309 Tablet(s) TAKE TWO TABLETS BY MOUTH AT B EDTIME AND ONE TABLET DAILY NEEDED 05/02/2016 07/28/2016 Inactive (Response to an electronic controlled substance refill request - RxReferenceNumber: [id number]) Diflucan 150 mg tablet RxNorm: 607206 1 Tablet(s) PO daily x5 days then 1 x we ekly x 4 weeks. 05/02/2016 04/10/2017 Inactive Diflucan 150 mg tablet RxNorm: 067854 1 Tablet(s) PO every other day 04/19/2016 04/28/2016 In active Diflucan 150 mg tablet RxNorm: 191196 1 Tablet(s) PO every other day 04/19/2016 04/18/2016 In active Diflucan 150 mg tablet RxNorm: 625565 1 Tablet(s) PO daily 04/05/2016 04/11/2016 Inactive mupirocin 2 % topica l ointment RxNorm: 730143 1 Application TOP BID 04/05/2016 05/04/2016 Inactive tramadol 50 mg tablet RxNorm: 381778 1 Tablet(s) PO Q4H as needed for pain 04/05/2016 05/14/2016 In active [SAVINGS FOR UNINSURED PATIENTS -- BIN:0 55146, PCN: ASPROD1, Group: [id number], ID# [id number], Process claim through [employer] for questions: . THIS IS NOT INSURANCE.] prednisone 10 mg tablet RxNorm: 986751 Tablet(s) PO UD 04/01/2016 09/26/2016 Inactive 6,5,4,3,2,1 levothyroxine 137 mc g tablet RxNorm: 703049 1 Tablet(s) PO daily 03/21/2016 03/20/2016 Inactive levothyroxine 137 mc g tablet RxNorm: 861885 1 Tablet(s) PO daily 03/21/2016 06/28/2016 Inactive Advair Diskus 100 mc g-50 mcg/dose powder for inhalation RxNorm: 8635674 1 Puff(s) INH BID 01/26/2016 05/24/2016 Inactive tramadol 50 mg tablet RxNorm: 305530 1 Tablet(s) PO Q4H as needed for pain 01/26/2016 03/05/2016 In active [SAVINGS FOR UNINSURED PATIENTS -- BIN:0 78780, PCN: ASPROD1, Group: [id number], ID# [id number], Process claim through [employer] for questions: . THIS IS NOT INSURANCE.] Bactroban 2 % topica l ointment RxNorm: 045405 APPLY TO AFFECTED ARE A(S) TWO TIMES A DAY 12/22/2015 12/31/2015 Inactive Bactrim DS 800 mg-16 0 mg tablet RxNorm: 714595 TAKE ONE TABLET BY [facility] TWICE A DAY 12/22/2015 04/18/2016 In active Bactrim DS 800 mg-16 0 mg tablet RxNorm: 943389 1 Tablet(s) PO BID 12/21/2015 12/30/2015 Inactive lisinopril 20 mg-hyd rochlorothiazide 25 mg tablet RxNorm: 210899 1 Tablet(s) PO daily 12/21/2015 06/17/2016 Inactive [SAVINGS FOR UNINSURED PATIENTS -- BIN:0 61774, PCN: ASPROD1, Group: [id number], ID# [id number], Process claim through [employer] for questions: . THIS IS NOT INSURANCE.] tramadol 50 mg tablet RxNorm: 781009 1 Tablet(s) PO Q4H as needed for pain 12/03/2015 01/11/2016 In active [SAVINGS FOR UNINSURED PATIENTS -- BIN:0 83242, PCN: ASPROD1, Group: [id number], ID# [id number], Process claim through [employer] for questions: . THIS IS NOT INSURANCE.] lorazepam 1 mg tablet RxNorm: 115550 Tablet(s) TAKE TWO TABLETS BY MOUTH AT B EDTIME AND ONE TABLET DAILY NEEDED 11/26/2015 06/27/2018 Inactive (Response to an electronic controlled substance refill request - RxReferenceNumber: [id number]) Bactrim DS 800 mg-16 0 mg tablet RxNorm: 676719 1 Tablet(s) PO BID 11/25/2015 12/04/2015 Inactive levothyroxine 150 mc g tablet RxNorm: 930059 1 Tablet(s) PO daily 11/25/2015 03/20/2016 Inactive Bactroban 2 % topica l ointment RxNorm: 528165 1 Application TOP BID 10/12/2015 10/21/2015 Inactive Bactrim DS 800 mg-16 0 mg tablet RxNorm: 924769 1 Tablet(s) PO BID 09/07/2015 09/06/2015 Inactive Bactrim DS 800 mg-16 0 mg tablet RxNorm: 729474 1 Tablet(s) PO BID 09/07/2015 09/16/2015 Inactive lorazepam 1 mg tablet RxNorm: 853568 Tablet(s) TAKE TWO TABLETS BY MOUTH AT B EDTIME AND ONE TABLET DAILY NEEDED 08/28/2015 11/24/2015 Inactive (Response to an electronic controlled substance refill request - RxReferenceNumber: [id number]) levothyroxine 175 mc g tablet RxNorm: 696016 1 Tablet(s) PO daily 08/24/2015 11/24/2015 Inactive tramadol 50 mg tablet RxNorm: 027380 1 Tablet(s) PO Q4H as needed for pain 08/24/2015 09/11/2017 In active [SAVINGS FOR UNINSURED PATIENTS -- BIN:0 26587, PCN: ASPROD1, Group: [id number], ID# [id number], Process claim through [employer], for questions: . THIS IS NOT INSURANCE.] lisinopril 20 mg-hyd rochlorothiazide 25 mg tablet RxNorm: 286817 1 Tablet(s) PO daily TAKE 1 TABLET BY MOUTH DAILY 08/24/2015 06/27/2018 Inactive ProAir HFA 90 mcg/ac tuation aerosol inhaler RxNorm: 771524 1-2 Puff(s) INH PRN I NHALE ONE TO TWO PUFFS BY MOUTH FOUR TIMES A DAY NEEDED FOR ASTHMA 08/24/2015 12/01/2015 In active ProAir HFA 90 mcg/ac tuation aerosol inhaler RxNorm: 3000814 INHALE ONE TO TWO PU FFS BY MOUTH FOUR TIMES A DAY NEEDED FOR ASTHMA 08/17/2015 08/23/2015 Inactive Advair Diskus 250 mc g-50 mcg/dose powder for inhalation RxNorm: 7907712 1 Puff(s) INH BID 07/20/2015 07/19/2015 Inactive Advair Diskus 250 mc g-50 mcg/dose powder for inhalation RxNorm: 8896510 1 Puff(s) INH BID 07/20/2015 11/16/2015 Inactive tramadol 50 mg tablet RxNorm: 829973 1 Tablet(s) PO Q4H as needed for pain 07/10/2015 08/17/2015 In active [SAVINGS FOR UNINSURED PATIENTS -- BIN:0 18629, PCN: ASPROD1, Group: [id number], ID# [id number], Process claim through [employer] for questions: . THIS IS NOT INSURANCE.] Zithromax Z-Linus 250 mg tablet RxNorm: 068382 1 Tablet(s) PO UD 07/10/2015 01/18/2016 Inactive Keflex 500 mg capsule RxNorm: 524587 1 Capsule(s) PO TID 06/01/2015 06/07/2015 Inactive mupirocin 2 % topica l ointment RxNorm: 179315 1 Application TOP TID 06/01/2015 06/10/2015 Inactive lisinopril 20 mg-hyd rochlorothiazide 25 mg tablet RxNorm: 286625 TAKE 1 TABLET BY MOUT H DAILY 05/30/2015 08/23/2015 Inactive lisinopril 20 mg-hyd rochlorothiazide 25 mg tablet RxNorm: 960825 1 Tablet(s) PO daily 05/29/2015 11/24/2015 Inactive [SAVINGS FOR UNINSURED PATIENTS -- BIN:0 85185, PCN: ASPROD1, Group: [id number], ID# [id number], Process claim through [employer], for questions: . THIS IS NOT INSURANCE.] lorazepam 1 mg tablet RxNorm: 484511 Tablet(s) TAKE TWO TABLETS BY MOUTH AT B EDTIME AND ONE TABLET DAILY NEEDED 04/17/2015 07/13/2015 Inactive (Response to an electronic controlled substance refill request - RxReferenceNumber: [id number]) levothyroxine 200 mc g tablet RxNorm: 684328 1 Tablet(s) PO daily 03/12/2015 08/23/2015 Inactive [SAVINGS FOR UNINSURED PATIENTS -- BIN:0 30541, PCN: ASPROD1, Group: [id number], ID# [id number], Process claim through [employer], for questions: . THIS IS NOT INSURANCE.] lisinopril 20 mg-hyd rochlorothiazide 25 mg tablet RxNorm: 969112 1 Tablet(s) PO daily 03/11/2015 05/28/2015 Inactive [SAVINGS FOR UNINSURED PATIENTS -- BIN:0 96514, PCN: ASPROD1, Group: [id number], ID# [id number], Process claim through [employer], for questions: . THIS IS NOT INSURANCE.] levothyroxine 175 mc g tablet RxNorm: 050625 1 Tablet(s) PO daily 03/09/2015 03/11/2015 Inactive recheck blood in 3 months- THIS IS CORRE CT DOSAGE levothyroxine 175 mc g tablet RxNorm: 096911 1 Tablet(s) PO daily 03/09/2015 03/08/2015 Inactive recheck blood in 3 months levothyroxine 150 mc g tablet RxNorm: 284847 1 Tablet(s) PO daily 03/09/2015 03/08/2015 Inactive recheck blood in 3 months lorazepam 1 mg tablet RxNorm: 771766 TAKE TWO TABLETS BY MOUTH AT BEDTIME AND ONE TABLET DAILY NEEDED 12/25/2014 01/22/2015 Inactive (Response to an electronic controlled substance refill request - RxReferenceNumber: [id number]) lorazepam 1 mg tablet RxNorm: 996939 Tablet(s) TAKE TWO TABLETS BY MOUTH EVER Y NIGHT AT BEDTIME AND TAKE ONE TABLET BY MOUTH DAILY NEEDED 12/23/2014 12/25/2014 Inactive (Response to an electronic controlled [place] bstance refill request - RxReferenceNumber: [id number]) levothyroxine 150 mc g tablet RxNorm: 545655 1 Tablet(s) PO daily 12/12/2014 03/08/2015 Inactive recheck blood in 3 months Diflucan 150 mg tablet RxNorm: 308080 1 Tablet(s) PO every other day (start af ter finished with Cipro) 11/17/2014 08/23/2015 Inactive tramadol 50 mg tablet RxNorm: 630307 1 Tablet(s) PO Q4H as needed for pain 11/10/2014 12/17/2014 In active [SAVINGS FOR UNINSURED PATIENTS -- BIN:0 91656, PCN: ASPROD1, [facility], ID# [id number], Process claim through [employer] for questions: . THIS IS NOT INSURANCE.] Cipro 500 mg tablet RxNorm: 824978 1 Tablet(s) PO BID 10/23/2014 10/29/2014 Inactive Flagyl 500 mg tablet RxNorm: 199664 1 Tablet(s) PO TID 10/23/2014 10/29/2014 Inactive Cipro 500 mg tablet RxNorm: 627647 1 Tablet(s) PO BID 10/23/2014 10/22/2014 Inactive Flagyl 500 mg tablet RxNorm: 921402 1 Tablet(s) PO TID 10/23/2014 10/22/2014 Inactive Diflucan 150 mg tablet RxNorm: 933004 1 Tablet(s) PO every other day (start af ter finished with Cipro) 10/23/2014 11/16/2014 Inactive lorazepam 1 mg tablet RxNorm: 094720 TAKE TWO TABLETS BY MOUTH EVERY NIGHT AT BEDTIME AND TAKE ONE TABLET BY MOUTH DAILY NEEDED 10/21/2014 10/21/2014 Inactive (Response to an electronic controlled north bstance refill request - RxReferenceNumber: [id number]) lorazepam 1 mg tablet RxNorm: 133077 TAKE TWO TABLETS BY MOUTH EVERY NIGHT AT BEDTIME AND TAKE ONE TABLET BY MOUTH DAILY NEEDED 10/21/2014 11/18/2014 Inactive (Response to an electronic controlled north bstance refill request - RxReferenceNumber: [id number]) lorazepam 1 mg tablet RxNorm: 690621 Tablet(s) TAKE TWO TABLETS BY MOUTH AT B EDTIME, ALSO TAKE ONE TABLET BY MOUTH DAILY NEEDED 10/13/2014 10/21/2014 Inactive (Res ponse to an electronic controlled substance refill request - RxReferenceNumber: [id number]) ProAir HFA 90 mcg/ac tuation aerosol inhaler RxNorm: 2675263 1-2 inhale INH QID a s needed ASTHMA 10/13/2014 12/26/2014 Inactive ProAir HFA 90 mcg/ac tuation aerosol inhaler RxNorm: 1149609 1-2 inhale INH QID a s needed ASTHMA 09/18/2014 10/12/2014 Inactive meloxicam 7.5 mg tablet RxNorm: 395106 1 Tablet(s) PO daily 09/18/2014 03/10/2015 Inactive [SAVINGS FOR UNINSURED PATIENTS -- BIN:0 54704, PCN: ASPROD1, Group: [id number], ID# [id number], Process claim through [employer] for questions: . THIS IS NOT INSURANCE.] sulfamethoxazole 800 mg-trimethoprim 160 mg tablet RxNorm: 398156 1 Tablet(s) PO BID 09/18/2014 10/07/2014 Inactive levothyroxine 175 mc g tablet RxNorm: 413061 1 Tablet(s) PO daily 09/17/2014 12/11/2014 Inactive levothyroxine 175 mc g tablet RxNorm: 533857 1 Tablet(s) PO daily 09/17/2014 09/16/2014 Inactive lorazepam 1 mg tablet RxNorm: 713931 Tablet(s) TAKE TWO TABLETS BY MOUTH AT B EDTIME, ALSO TAKE ONE TABLET BY MOUTH DAILY NEEDED 09/12/2014 10/11/2014 Inactive (Res ponse to an electronic controlled substance refill request - RxReferenceNumber: [id number]) lorazepam 1 mg tablet RxNorm: 293452 TAKE TWO TABLETS BY MOUTH AT BEDTIME, AL SO TAKE ONE TABLET BY MOUTH DAILY NEEDED 09/08/2014 09/11/2014 Inactive (Res ponse to an electronic controlled substance refill [id number] meloxicam 7.5 mg tablet RxNorm: 712404 1 Tablet(s) PO daily 09/01/2014 09/17/2014 Inactive [SAVINGS FOR UNINSURED PATIENTS -- BIN:0 85832, PCN: ASPROD1, Group: [id number], ID# [id number], Process claim through [employer], for questions: . THIS IS NOT INSURANCE.] lisinopril 20 mg-hyd rochlorothiazide 25 mg tablet RxNorm: 454713 1 Tablet(s) PO daily 09/01/2014 12/29/2014 Inactive [SAVINGS FOR UNINSURED PATIENTS -- BIN:0 50161, PCN: ASPROD1, Group: [id number], ID# [id number], Process claim through [employer], for questions: . THIS IS NOT INSURANCE.] tramadol 50 mg tablet RxNorm: 654287 1 Tablet(s) PO Q4H as needed for pain 08/20/2014 11/07/2014 In active [SAVINGS FOR UNINSURED PATIENTS -- BIN:0 03221, PCN: ASPROD1, Group: [id number], ID# [id number], Process claim through [employer], for questions: . THIS IS NOT INSURANCE.] meloxicam 7.5 mg tablet RxNorm: 118282 1 Tablet(s) PO daily 08/14/2014 08/31/2014 Inactive [SAVINGS FOR UNINSURED PATIENTS -- BIN:0 32035, PCN: ASPROD1, Group: [id number], ID# [id number], Process claim through [employer], for questions: . THIS IS NOT INSURANCE.] lorazepam 1 mg tablet RxNorm: 935794 2 Tablet(s) PO QHS and 1 tab qd PRN 08/01/2014 09/08/2014 In active [SAVINGS FOR UNINSURED PATIENTS -- BIN:0 95447, PCN: ASPROD1, Group: [id number], ID# [id number], Process claim through [employer], for questions: . THIS IS NOT INSURANCE.] levothyroxine 200 mc g tablet RxNorm: 032847 1 Tablet(s) PO daily 07/31/2014 09/16/2014 Inactive [SAVINGS FOR UNINSURED PATIENTS -- BIN:0 10496, PCN: ASPROD1, Group: [id number], ID# [id number], Process claim through [employer] for questions: . THIS IS NOT INSURANCE.] lorazepam 1 mg tablet RxNorm: 068349 2 Tablet(s) PO QHS and 1 tab qd PRN No Start Date 07/31/2014 Inactive Phenergan VC-Codeine oral RxNorm: 485375 oral No S tart Date 11/26/2017 Inactive meloxicam 7.5 mg tablet RxNorm: 802461 1 Tablet(s) PO daily No Start Date 08/13/2014 Inactive lisinopril 20 mg-hyd rochlorothiazide 25 mg tablet RxNorm: 467249 1 Tablet(s) PO daily No Start Date 08/31/2014 Inactive levothyroxine 200 mc g tablet RxNorm: 805215 1 Tablet(s) PO daily No Start Date 07/30/2014 Inactive Diflucan 150 mg tablet RxNorm: 699685 1 Tablet(s) PO every other day No Start Date 10/22/2014 Inactive Zithromax Z-Linus 250 mg tablet RxNorm: 489596 1 Tablet(s) PO UD No Start Date 07/09/2015 Inactive tramadol 50 mg tablet RxNorm: 343020 1 Tablet(s) PO Q6 as needed No Start Date 08/19/2014 Inactive Medication Administered Medication Codes Instruc tions Start Date Status Kenalog 40 mg/mL suspension for injection RxNorm: 3923054 1Milliliter 06/14/2017 N o longer Active Kenalog 40 mg/mL suspension for injection RxNorm: 8502531 1Milliliter 03/27/2017 N o longer Active Kenalog 40 mg/mL suspension for injection RxNorm: 2243174 Milliliter 12/07/2016 No longer Active Kenalog 40 mg/mL suspension for injection RxNorm: 9659191 Milliliter 11/28/2016 No longer Active Immunizations Vaccine Codes Date Status Pneumococcal CVX: 33 07/ 09/1986 completed Tetanus, Diptheria, Pertussis CVX: 113 [...] Observation Code Item Item Code Result Date Cbc With Differential Ord2 WBC 5.03 K/ul [...] 30.0 pg 04/04/2018 Cbc With Differential Ord2 [place]% 10.9 % 04/04/2018 Cbc With Differential Ord2 [...] 1.42 K/ul 04/04/2018 Cbc With Differential Ord2 [place] ABS# 0.6 K/ul 04/04/2018 Cbc With Differential Ord2 Eos ABS# 0.1 K/ul 04/04/2018 Cbc With Differential Ord2 Baso ABS# 0.0 K/ul 04/04/2018 Free T4 Ypi690 FREE T4 1.25 ng/dL 04/04/2018 Tsh Ord6 [...] 25.9 % 11/28/2017 Cbc With Differential Ord2 [place]% 10.1 % 11/28/2017 Cbc With Differential Ord2 [...] 1.33 K/ul 11/28/2017 Cbc With Differential Ord2 [place] ABS# 0.5 K/ul 11/28/2017 Cbc With Differential Ord2 Eos ABS# 0.1 K/ul 11/28/2017 Cbc With Differential Ord2 Baso ABS# 0.0 K/ul 11/28/2017 Free T4 Igm124 FREE T4 1.43 ng/dL 11/28/2017 Lipid Ord30 CHOL 186 mg/dL 11/28/2017 Lipid Ord30 HDL 54.0 mg/dl 11/28/2017 Lipid Ord30 TRIG 59 mg/dL 11/28/2017 Lipid Ord30 LDL 120 mg/dL 11/28/2017 Lipid Ord30 C/HDL 3.4 Ratio 11/28/2017 Comp Metabolic Xma932 NA 141 mEq/L 11/28/2017 Comp Metabolic Rzg810 K 4.0 mEq/L 11/28/2017 Comp Metabolic Ibn381 CL 105 mEq/L 11/28/2017 Comp Metabolic Tfy166 CO2 29.0 mEq/L 11/28/2017 Comp Metabolic Lsl920 AN ION GAP 11 11/28/2017 Comp Metabolic Ppe832 GL UCOSE 91 mg/dL 11/28/2017 Comp Metabolic Gmv143 Cr eat 0.8 mg/dL 11/28/2017 Comp Metabolic Npe077 eG FR 74 ml/min/1.73m2 11/28 Comp Metabolic Bxt257 BUN 15 mg/dL 11/28/2017 Comp Metabolic Biz546 B/ C Ratio 18.8 Ratio 11/28/2017 Comp Metabolic Arn029 CA LCIUM 8.6 mg/dL 11/28/2017 Comp Metabolic Dwr236 AL K PHOS 76 U/L 11/28/2017 Comp Metabolic Lmx695 T(SGOT) 10 U/L 11/28/2017 Comp Metabolic Zuo299 AL T(SGPT) 8 U/L 11/28/2017 Comp Metabolic Onj957 BI LI T 0.5 mg/dL 11/28/2017 Comp Metabolic Pcx524 AL BUMIN 4.0 g/dL 11/28/2017 Comp Metabolic Vqk187 TP RO 6.1 g/dL 11/28/2017 Comp Metabolic Cmr877 GL OB 2.1 g/dL 11/28/2017 Comp Metabolic Ivr257 A/ G Ratio 1.9 Ratio 11/28/2017 Comp Metabolic Tqv564 Os mo 282 mOsmo 11/28/2017 Tsh Ord6 TSH (3rd IS) 3.31 uIU/mL 11/28/2017 Tsh Ord6 hTSH II 1.45 uIU/mL 03/27/2017 Free T4 Nom371 FREE T4 1.23 ng/dL 03/27/2017 Comp Metabolic Pco457 NA 140 mEq/L 09/28/2016 Comp Metabolic Hlc584 K 3.9 mEq/L 09/28/2016 Comp Metabolic Vaj152 CL 104 mEq/L 09/28/2016 Comp Metabolic Edu972 CO2 28.0 mEq/L 09/28/2016 Comp Metabolic Bvr689 AN ION GAP 12 09/28/2016 Comp Metabolic Kfj927 GL UCOSE 97 mg/dL 09/28/2016 Comp Metabolic Gay684 Cr eat 0.8 mg/dL 09/28/2016 Comp Metabolic Zhu511 eG FR 79 ml/min/1.73m2 09/28 Comp Metabolic Tnn214 BUN 13 mg/dL 09/28/2016 Comp Metabolic Ety693 B/ C Ratio 17.1 Ratio 09/28/2016 Comp Metabolic Yem048 CA LCIUM 8.9 mg/dL 09/28/2016 Comp Metabolic Ojy430 AL K PHOS 100 U/L 09/28/2016 Comp Metabolic Hwk885 T(SGOT) 12 U/L 09/28/2016 Comp Metabolic Rpw474 AL T(SGPT) 9 U/L 09/28/2016 Comp Metabolic Rbd922 BI LI T 0.4 mg/dL 09/28/2016 Comp Metabolic Buv764 AL BUMIN 4.1 g/dL 09/28/2016 Comp Metabolic Qvq293 TP RO 6.6 g/dL 09/28/2016 Comp Metabolic Dik158 GL OB 2.5 g/dL 09/28/2016 Comp Metabolic Gac167 A/ G Ratio 1.6 Ratio 09/28/2016 Comp Metabolic Fxc529 Os mo 279 mOsmo 09/28/2016 Lipid Ord30 [...] 28.8 pg 09/28/2016 Cbc With Differential Ord2 [place]% 7.2 % 09/28/2016 Cbc With Differential Ord2 [...] 1.41 K/ul 09/28/2016 Cbc With Differential Ord2 [place] ABS# 0.5 K/ul 09/28/2016 Cbc With Differential Ord2 Eos ABS# 0.2 K/ul 09/28/2016 Cbc With Differential Ord2 Baso ABS# 0.0 K/ul 09/28/2016 Free T4 Mno655 FREE T4 1.43 ng/dL 09/28/2016 Tsh Ord6 hTSH II 0.52 uIU/mL 09/28/2016 Tsh Ord6 hTSH II 0.47 uIU/mL 06/16/2016 Comp Metabolic Bvp289 NA 139 mEq/L 06/16/2016 Comp Metabolic Bnb552 K 4.3 mEq/L 06/16/2016 Comp Metabolic Djh037 CL 105 mEq/L 06/16/2016 Comp Metabolic Pyr057 CO2 30.0 mEq/L 06/16/2016 Comp Metabolic Gsj457 AN ION GAP 8 06/16/2016 Comp Metabolic Juc176 GL UCOSE 90 mg/dL 06/16/2016 Comp Metabolic Yxm394 Cr eat 0.7 mg/dL 06/16/2016 Comp Metabolic Udw317 eG FR 91 ml/min/1.73m2 06/16 Comp Metabolic Kwt196 BUN 15 mg/dL 06/16/2016 Comp Metabolic Afz637 B/ C Ratio 22.4 Ratio 06/16/2016 Comp Metabolic Pju826 CA LCIUM 8.8 mg/dL 06/16/2016 Comp Metabolic Syj158 AL K PHOS 79 U/L 06/16/2016 Comp Metabolic Dup539 T(SGOT) 13 U/L 06/16/2016 Comp Metabolic Imq101 AL T(SGPT) 11 U/L 06/16/2016 Comp Metabolic Nwv923 BI LI T 0.5 mg/dL 06/16/2016 Comp Metabolic Xlx290 AL BUMIN 3.9 g/dL 06/16/2016 Comp Metabolic Mox209 TP RO 6.1 g/dL 06/16/2016 Comp Metabolic Kep236 GL OB 2.2 g/dL 06/16/2016 Comp Metabolic Zay541 A/ G Ratio 1.8 Ratio 06/16/2016 Comp Metabolic Yze238 Os mo 278 mOsmo 06/16/2016 Lipid Ord30 [...] 28.9 pg 06/16/2016 Cbc With Differential Ord2 [place]% 8.1 % 06/16/2016 Cbc With Differential Ord2 [...] 1.70 K/ul 06/16/2016 Cbc With Differential Ord2 [place] ABS# 0.4 K/ul 06/16/2016 Cbc With Differential Ord2 Eos ABS# 0.2 K/ul 06/16/2016 Cbc With Differential Ord2 Baso ABS# 0.0 K/ul 06/16/2016 Free T4 Qkg202 FREE T4 1.42 ng/dL 06/16/2016 Free T4 Tnf878 FREE T4 1.34 ng/dL 03/04/2016 Tsh Ord6 hTSH II 0.56 uIU/mL 03/04/2016 Tsh Ord6 hTSH II 0.98 uIU/mL 01/27/2016 Free T4 Ctj511 FREE T4 1.19 ng/dL 01/27/2016 Free T4 Yuj076 FREE T4 1.69 ng/dL 11/23/2015 Tsh Ord6 hTSH II 0.08 uIU/mL 11/23/2015 Lipid Ord30 CHOL 185 mg/dL 08/21/2015 Lipid Ord30 HDL 50.0 mg/dl 08/21/2015 Lipid Ord30 TRIG 88 mg/dL 08/21/2015 Lipid Ord30 LDL 117 mg/dL 08/21/2015 Lipid Ord30 C/HDL 3.7 Ratio 08/21/2015 Comp Metabolic Ell144 NA 139 mEq/L 08/21/2015 Comp Metabolic Npm843 K 4.3 mEq/L 08/21/2015 Comp Metabolic Zuv187 CL 102 mEq/L 08/21/2015 Comp Metabolic Dzg304 CO2 27.0 mEq/L 08/21/2015 Comp Metabolic Tde868 AN ION GAP 14 08/21/2015 Comp Metabolic Muw750 GL UCOSE 89 mg/dL 08/21/2015 Comp Metabolic Iia493 Cr eat 0.7 mg/dL 08/21/2015 Comp Metabolic Hnh803 eG FR 85 ml/min/1.73m2 08/21 Comp Metabolic Hzo694 BUN 14 mg/dL 08/21/2015 Comp Metabolic Sjp725 B/ C Ratio 19.7 Ratio 08/21/2015 Comp Metabolic Lyl749 CA LCIUM 9.5 mg/dL 08/21/2015 Comp Metabolic Oqd071 AL K PHOS 123 U/L 08/21/2015 Comp Metabolic Wty805 T(SGOT) 13 U/L 08/21/2015 Comp Metabolic Odt296 AL T(SGPT) 10 U/L 08/21/2015 Comp Metabolic Qfc920 BI LI T 0.4 mg/dL 08/21/2015 Comp Metabolic Yel880 AL BUMIN 4.1 g/dL 08/21/2015 Comp Metabolic Wif701 TP RO 6.8 g/dL 08/21/2015 Comp Metabolic Nyc428 GL OB 2.7 g/dL 08/21/2015 Comp Metabolic Iif675 A/ G Ratio 1.5 Ratio 08/21/2015 Comp Metabolic Bdg784 Os mo 277 mOsmo 08/21/2015 Free T4 Aji970 FREE T4 1.78 ng/dL 08/21/2015 Tsh Ord6 [...] Ord2 RDW 13.9 % 08/21/2015 Quick Strep Kyw3552 Quic k Strep Negative 07/08/2015 Tsh Ord6 hTSH II 0.04 uIU/mL 05/20/2015 Free T4 Lpl777 FREE T4 1.50 ng/dL 05/20/2015 Review of [...] Procedure Codes Date DESTRUCT PREMALG LESION CPT-4: 30596 01/19/2018 URINALYSIS NONAUTO W /O SCOPE CPT-4: 81565 09/12/2017 TRIAMCINOLONE ACET I [place] NOS CPT-4: J3301 06/14/2017 THER/PROPH/DIAG INJ SC/IM CPT-4: 90741 06/14/2017 PRESCRIP TRANSMIT A ERX SY CPT-4: G8553 06/14/2017 TRIAMCINOLONE ACET I [place] NOS CPT-4: J3301 03/27/2017 THER/PROPH/DIAG INJ SC/IM CPT-4: 70816 12/07/2016 TRIAMCINOLONE ACET I [place] NOS CPT-4: J3301 12/07/2016 THER/PROPH/DIAG INJ SC/IM CPT-4: 91086 11/28/2016 TRIAMCINOLONE ACET I [place] NOS CPT-4: J3301 11/28/2016 Vital Signs Date Vital 06/28/2018 Blood Pressure 1: 110/66 Code: 8480-6 BMI: 37.1 Code: 20070-1 Heart Rate 1: 73 bpm Height: 5'6" SpO2: 98% Weight: 230 lbs 04/04/2018 Blood Pressure 1: 128/76 Code: 8480-6 BMI: 37.9 Code: 99614-5 Heart Rate 1: 86 bpm Height: 5'6" SpO2: 98% Weight: 235 lbs 01/19/2018 Blood Pressure 1: 122/68 Code: 8480-6 Heart Rate 1: 78 bpm Height: 5'6" SpO2: 97% Weight: 01/05/2018 Blood Pressure 1: 138/78 Code: 8480-6 BMI: 38.4 Code: 79229-0 Heart Rate 1: 73 bpm Height: 5'6" SpO2: 95% Weight: 238 lbs 11/29/2017 Blood Pressure 1: 138/80 Code: 8480-6 BMI: 38.7 Code: 70610-7 Heart Rate 1: 71 bpm Height: 5'6" SpO2: 97% Weight: 240 lbs 10/25/2017 Blood Pressure 1: 136/72 Code: 8480-6 BMI: 38.7 Code: 75086-2 Heart Rate 1: 92 bpm Height: 5'6" SpO2: 98% Weight: 240 lbs 09/12/2017 Blood Pressure 1: 132/68 Code: 8480-6 BMI: 39.7 Code: 34210-9 Heart Rate 1: 76 bpm Height: 5'6" SpO2: 98% Weight: 246 lbs 06/14/2017 Blood Pressure 1: 130/80 Code: 8480-6 BMI: 39.4 Code: 02233-7 Heart Rate 1: 73 bpm Height: 5'6" SpO2: 95% Temperature: 36.9 (C ) / 98.5 (F) Weight: 244 lbs 05/10/2017 Blood Pressure 1: 128/68 Code: 8480-6 BMI: 38.7 Code: 27808-5 Heart Rate 1: 69 bpm Height: 5'6" SpO2: 97% Weight: 240 lbs 04/19/2017 Blood Pressure 1: 138/74 Code: 8480-6 BMI: 38.7 Code: 97792-4 Heart Rate 1: 73 bpm Height: 5'6" SpO2: 96% Weight: 240 lbs 03/27/2017 Blood Pressure 1: 142/84 Code: 8480-6 BMI: 38.7 Code: 70465-1 Heart Rate 1: 69 bpm Height: 5'6" SpO2: 97% Weight: 240 lbs 01/26/2017 Blood Pressure 1: 136/68 Code: 8480-6 Heart Rate 1: 64 bpm Height: 5'6" SpO2: 96% Weight: 12/07/2016 Blood Pressure 1: 130/72 Code: 8480-6 BMI: 39.7 Code: 45496-1 Heart Rate 1: 73 bpm Height: 5'6" SpO2: 93% Temperature: 36.8 (C ) / 98.3 (F) Weight: 246 lbs 11/28/2016 Blood Pressure 1: 138/60 Code: 8480-6 BMI: 39.7 Code: 62093-0 Heart Rate 1: 81 bpm Height: 5'6" SpO2: 97% Weight: 246 lbs 11/15/2016 Blood Pressure 1: 134/78 Code: 8480-6 BMI: 39.7 Code: 07562-8 Heart Rate 1: 75 bpm Height: 5'6" SpO2: 93% Temperature: 36.8 (C ) / 98.2 (F) Weight: 246 lbs 10/17/2016 Blood Pressure 1: 120/64 Code: 8480-6 BMI: 38.4 Code: 66770-6 Heart Rate 1: 69 bpm Height: 5'6" SpO2: 98% Temperature: 37.2 (C ) / 98.9 (F) Weight: 238 lbs 09/28/2016 Blood Pressure 1: 158/76 Code: 8480-6 BMI: 39.4 Code: 94669-7 Heart Rate 1: 71 bpm Height: 5'6" SpO2: 97% Weight: 244 lbs 06/29/2016 Blood Pressure 1: 124/60 Code: 8480-6 BMI: 38.7 Code: 07470-3 Heart Rate 1: 71 bpm Height: 5'6" SpO2: 98% Weight: 240 lbs 06/01/2016 Blood Pressure 1: 120/62 Code: 8480-6 BMI: 38.6 Code: 63480-5 Heart Rate 1: 76 bpm Height: 5'6" SpO2: 98% Weight: 239 lbs 05/11/2016 Blood Pressure 1: 140/80 Code: 8480-6 BMI: 38.1 Code: 61349-7 Heart Rate 1: 88 bpm Height: 5'6" SpO2: 97% Weight: 236 lbs 04/05/2016 Blood Pressure 1: 142/80 Code: 8480-6 BMI: 38.4 Code: 08551-5 Heart Rate 1: 96 bpm Height: 5'6" SpO2: 98% Weight: 238 lbs 04/01/2016 Blood Pressure 1: 136/88 Code: 8480-6 BMI: 39.2 Code: 48063-6 Heart Rate 1: 86 bpm Height: 5'6" SpO2: 96% Weight: 243 lbs 01/26/2016 Blood Pressure 1: 124/76 Code: 8480-6 BMI: 39.2 Code: 15048-7 Heart Rate 1: 76 bpm Height: 5'6" SpO2: 97% Weight: 243 lbs 12/21/2015 Blood Pressure 1: 120/64 Code: 8480-6 BMI: 37.0 Code: 75657-3 Heart Rate 1: 98 bpm Height: 5'6" SpO2: 97% Weight: 229 lbs 10/12/2015 Blood Pressure 1: 150/64 Code: 8480-6 BMI: 37.4 Code: 81022-3 Heart Rate 1: 70 bpm Height: 5'6" SpO2: 94% Weight: 232 lbs 08/24/2015 Blood Pressure 1: 128/74 Code: 8480-6 BMI: 36.8 Code: 43282-0 Heart Rate 1: 88 bpm Height: 5'6" SpO2: 94% Temperature: 36.8 (C ) / 98.3 (F) Weight: 228 lbs 06/01/2015 Blood Pressure 1: 134/68 Code: 8480-6 BMI: 36.0 Code: 74933-4 Heart Rate 1: 70 bpm Height: 5'6" SpO2: 98% Weight: 223 lbs 05/21/2015 Blood Pressure 1: 126/72 Code: 8480-6 BMI: 35.2 Code: 25764-9 Heart Rate 1: 63 bpm Height: 5'6" SpO2: 95% Weight: 218 lbs 5 oz 03/26/2015 Blood Pressure 1: 140/62 Code: 8480-6 BMI: 35.3 Code: 44113-7 Heart Rate 1: 68 bpm Height: 5'6" Weight: 219 lbs 03/11/2015 Blood Pressure 1: 130/80 Code: 8480-6 BMI: 34.9 Code: 96695-6 Heart Rate 1: 76 bpm Height: 5'6" Temperature: 37.1 (C ) / 98.7 (F) Weight: 216 lbs 12/11/2014 Blood Pressure 1: 134/62 Code: 8480-6 BMI: 34.2 Code: 59281-2 Heart Rate 1: 72 bpm Height: 5'6" Weight: 212 lbs 09/18/2014 Blood Pressure 1: 148/80 Code: 8480-6 BMI: 34.7 Code: 82806-8 Heart Rate 1: 68 bpm Height: 5'6" Weight: 215 lbs 07/31/2014 Blood Pressure 1: 124/72 Code: 8480-6 BMI: 36.2 Code: 39648-7 Heart Rate 1: 68 bpm Height: 5'6" [...] Severity mi ld 09/28/2016 None 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 09/28/2016 None hypothyroid Onset and Resolution [...] Severity mi ld 06/01/2016 None 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 06/01/2016 None hypothyroid Onset and Resolution [...] and Resolution resolved 04/05/2016 None 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 P ATIENT, LEVEL III Diagnosis: Acute recurrent maxillary sinusitis[ICD10: J01.01] Diagnosis: Other mucopurulent conjunctivitis, left eye[ICD10: H10.022] Diagnosis: Other allergic rhinitis[ICD10: J30.89] [facility] CPT-4: 05356 06/28/2018 69104 EST. PATIENT, LEVEL IV Diagnosis: Essential (primary) hypertension[ICD10: I10] Diagnosis: Other specified hypothyroidism[ICD10: E03.8] Diagnosis: Other specified anemias[ICD10: D64.89] Diagnosis: Localized edema[ICD10: R60.0] [facility] CPT-4: 98423 04/04/2018 ([id number]) 97230 EST. P ATIENT, LEVEL III Diagnosis: Mild persistent asthma, uncomplicated[ICD10: J45.30] Diagnosis: Actinic keratosis[ICD10: L57.0] Lynn Finn MD, [facility] CPT- 4: 73808 01/05/2018 ([id number]) Miscellaneou s no charge Diagnosis: Essential (primary) hypertension[ICD10: I10] Damari Finn MD, [facility] CPT-4: 29695 12/12/2017 [id number] EST. PATIENT, LEVEL III Diagnosis: Essential (primary) hypertension[ICD10: I10] Diagnosis: Atrophy of thyroid (acquired)[ICD10: E03.4] Diagnosis: Low back pain[ICD10: M54.5] Mishel Finn MD, [facility] CPT-4: 50896 11/29/2017 77494 EST. PATIENT, LEVEL III Diagnosis: Pain in left hip[ICD10: M25.552] Mishel Finn MD, [facility] CPT-4: 00364 10/25/2017 74548 EST. PATIENT, LEVEL IV Diagnosis: Localized edema[ICD10: R60.0] Mishel Finn MD, [facility] CPT-4: 44229 09/12/2017 56765 EST. PATIENT, LEVEL IV Diagnosis: Mild persistent asthma with (acute) exacerbation[ICD10: J45.31] Mishel Finn MD, [facility] CPT-4: 60368 06/14/2017 34117 EST. PATIENT, LEVEL III Diagnosis: Localized edema[ICD10: R60.0] Diagnosis: Mild persistent asthma, uncomplicated[ICD10: J45.30] Mishel Finn MD, [facility] CPT-4: 55899 05/10/2017 25730 EST. PATIENT, LEVEL III Diagnosis: Mild persistent asthma with (acute) exacerbation[ICD10: J45.31] Mishel Finn MD, [facility] CPT-4: 25876 04/19/2017 ([id number]) 93371 EST. P ATIENT, LEVEL IV Diagnosis: Contusion of left wrist, initial encounter[ICD10: S60.212A] Diagnosis: Hypothyroidism, unspecified[ICD10: E03.9] Diagnosis: Mild persistent asthma with (acute) exacerbation[ICD10: J45.31] Diagnosis: Low back pain[ICD10: M54.5] Lynn Finn MD, [facility] CPT- 4: 82354 03/27/2017 ([id number]) 93962 EST. P ATIENT, LEVEL IV Diagnosis: Essential (primary) hypertension[ICD10: I10] Diagnosis: Atrophy of thyroid (acquired)[ICD10: E03.4] Diagnosis: Low back pain[ICD10: M54.5] Damari Finn MD, [facility] CPT-4: 42210 01/26/2017 51327 EST. PATIENT, LEVEL III Diagnosis: Other allergic rhinitis[ICD10: J30.89] Diagnosis: Mild persistent asthma with (acute) exacerbation[ICD10: J45.31] Mishel Finn MD, [facility] CPT-4: 17118 12/07/2016 06533 EST. PATIENT, LEVEL III Diagnosis: Mild persistent asthma with (acute) exacerbation[ICD10: J45.31] Mishel Finn MD, [facility] CPT-4: 81556 11/28/2016 03672 EST. PATIENT, LEVEL III Diagnosis: Mild persistent asthma with (acute) exacerbation[ICD10: J45.31] Diagnosis: Acute bronchitis due to other specified organisms[ICD10: J20.8] Mishel Finn MD, [facility] CPT-4: 07974 11/15/2016 42472 EST. PATIENT, LEVEL IV Diagnosis: Other acute sinusitis[ICD10: J01.80] Diagnosis: Other allergic rhinitis[ICD10: J30.89] Diagnosis: Mild persistent asthma with (acute) exacerbation[ICD10: J45.31] Mishel Finn MD, [facility] CPT-4: 59666 10/17/2016 ([id number]) 79374 EST. P ATIENT, LEVEL IV Diagnosis: Essential (primary) hypertension[ICD10: I10] Diagnosis: Low back pain[ICD10: M54.5] Damari Finn MD, [facility] CPT-4: 44604 09/28/2016 19528 EST. PATIENT, LEVEL III Diagnosis: Tinea barbae and tinea capitis[ICD10: B35.0] Diagnosis: Other specified hypothyroidism[ICD10: E03.8] Mishel Finn MD, [facility] CPT-4: 57455 06/29/2016 ([id number]) 37933 EST. P ATIENT, LEVEL IV Diagnosis: Essential (primary) hypertension[ICD10: I10] Diagnosis: Atrophy of thyroid (acquired)[ICD10: E03.4] Diagnosis: Rash and other nonspecific skin eruption[ICD10: R21] Damari Finn MD, [facility] CPT-4: 76158 06/01/2016 ([id number]) 78656 EST. P ATIENT, LEVEL III Diagnosis: Cellulitis of groin[ICD10: L03.314] Damari Finn MD, [facility] CPT- 4: 87905 05/11/2016 ([id number]) 17474 EST. P ATIENT, LEVEL IV Diagnosis: Hypothyroidism, unspecified[ICD10: E03.9] Diagnosis: Candidiasis of vulva and vagina[ICD10: B37.3] Diagnosis: Essential (primary) hypertension[ICD10: I10] Diagnosis: Low back pain[ICD10: M54.5] Lynn Finn MD, [facility] CPT- 4: 01636 04/05/2016 92262 EST. PATIENT, LEVEL III Diagnosis: Other acute sinusitis[ICD10: J01.80] Diagnosis: Rash and other nonspecific skin eruption[ICD10: R21] Mishel Finn MD, [facility] CPT-4: 68297 04/01/2016 ([id number]) 31469 EST. P ATIENT, LEVEL IV Diagnosis: Essential (primary) hypertension[ICD10: I10] Diagnosis: Hypothyroidism, unspecified[ICD10: E03.9] Diagnosis: Low back pain[ICD10: M54.5] Diagnosis: Other obesity due to excess calories[ICD10: E66.09] Lynn Finn MD, [facility] CPT-4: 10435 01/26/2016 30802 EST. PATIENT, LEVEL IV Diagnosis: Essential (primary) hypertension[ICD10: I10] Diagnosis: Cutaneous abscess of face[ICD10: L02.01] Mishel Finn MD, [facility] CPT-4: 26381 12/21/2015 ([id number]) 37790 EST. P ATIENT, LEVEL III Diagnosis: Cutaneous abscess of groin[ICD10: L02.214] Diagnosis: Hypothyroidism, unspecified[ICD10: E03.9] Lynn Finn MD, [facility] CPT-4: 74339 10/12/2015 ([id number]) 38543 EST. P ATIENT, LEVEL III Diagnosis: Essential (primary) hypertension[ICD10: I10] Diagnosis: Hypothyroidism, unspecified[ICD10: E03.9] Diagnosis: Allergic rhinitis, unspecified[ICD10: J30.9] Lynn Finn MD, [facility] CPT-4: 94792 08/24/2015 ([id number]) 28458 EST. P ATIENT, LEVEL III Diagnosis: Skin infection[ICD9: 686.9] Damari Finn MD, [facility] CPT-4: 95478 06/01/2015 ([id number]) 98874 EST. P ATIENT, LEVEL III Diagnosis: Hypothyroidism[ICD9: 244.9] Diagnosis: ESSENTIAL HYPERTENSION[ICD9: 401.9] Damari Finn MD, [facility] CPT- 4: 55987 05/21/2015 ([id number]) 36288 EST. P ATIENT, LEVEL III Diagnosis: Hypothyroidism[ICD9: 244.9] Diagnosis: Fingernail abnormalities[ICD9: 703.8] Lynn Finn MD, [facility] CPT-4: 58107 03/26/2015 ([id number]) 60378 EST. P ATIENT, LEVEL II Diagnosis: Hypothyroidism[ICD9: 244.9] Maritza Finn MD, [facility] CPT-4: 91419 03/11/2015 ([id number]) 66256 EST. P ATIENT, LEVEL IV Diagnosis: ESSENTIAL HYPERTENSION[ICD9: 401.9] Diagnosis: Low back pain[ICD9: 724.2] Diagnosis: Hypothyroidism[ICD9: 244.9] Damari Finn MD, [facility] CPT-4: 08621 12/11/2014 ([id number]) [id number] EST. P ATIENT, LEVEL IV Diagnosis: Hidradenitis suppurativa[ICD9: 705.83] Diagnosis: ESSENTIAL HYPERTENSION[ICD9: 401.9] Diagnosis: Low back pain[ICD9: 724.2] Diagnosis: Lumbar spinal stenosis[ICD9: 724.02] Diagnosis: HYPOTHYROIDISM[ICD9: 244.9] [facility] CPT-4: 06050 09/18/2014 Office outpatient ne w 30 minutes Diagnosis: ESSENTIAL HYPERTENSION[ICD9: 401.9] Diagnosis: Hypothyroidism[ICD9: 244.9] Diagnosis: Low back pain[ICD9: 724.2] [facility] CPT- 4: 50290 07/31/2014 Plan of Care Planned Activity Notes C odes Status Date Patient Education: Patient Medication Summary Completed 10/23/2018 Care Plan: Cbc With Differential Pending 10/23/2018 Care Plan: Comp Metabolic Pending 10/23/2018 Care Plan: Tsh Pending 10/23/2018 Care Plan: Lipid Pending 10/23/2018 Care Plan: Free T4 Pending 10/23/2018 Appointment: Lynn Arenas WPtel: [phone] [phone] (15 min) Moderate 10/19/2018 Appointment: Damari Finn WPtel: [phone] [facility] [place] (15 min) Moderate 09/19/2018 [...] daily. 06/28/2018 [phone] ([facility]) Complex 06/28/2018 Patient [...] monitor. 04/04/2018 Appointment: Mishel Balderrama WPtel: [phone] [facility] (15 min) Moderate 04/04/2018 Patient Education: Patient Medication Summary Completed 04/04/2018 Visit Plan: Wound Instructions - Pt was instructed to keep the wound clean, wash with antibacterial soap, use triple antibiotic ointment, call if redness, pustular drainage, or any other acute concerns. 01/19/2018 Appointment: Lynn Arenas WPtel: [phone] (30 min) Complex 01/19/2018 Patient Education: [...] [facility] [place] [phone] (30 min) Complex 01/05/2018 Patient Education: [...] improve. 11/29/2017 Appointment: Mis[facility] Balderr[phone] [place] ([facility]) Complex 11/29/2017 [...] not improve. 10/25/2017 Appointment: Mishel Balderrama WPtel: [facility] [place] (30 min) Complex 10/25/2017 Patient [...] [facility] [place] ([facility]) Complex 09/12/2017 Patient Education: Patient Medication Summary Completed 09/12/2017 Appointment: Lynn Arenas WPtel: [phone] [place] (30 min) Complex 06/27/2017 Visit [...] changes. 06/14/2017 Appointment: Mis[facility] Balderr[phone] [place] (15 min) Moderate 06/14/2017 [...] acute changes 05/10/2017 Appointment: Mis[facility] Balderr[phone] [place] (15 min) Moderate 05/10/2017 [...] changes. 04/19/2017 Appointment: Mis[facility] Balderrama [phone] ([facility] min) Moderate 04/19/2017 Patient [...] on previous levels of control. Low back ummz-bbmqtca-ztfegd tramadol for prn use 03/27/2017 Appointment: [phone] ([facility] min) Complex 03/27/2017 Patient [...] improve. 01/26/2017 [phone] ([facility] Moderate 01/26/2017 Patient Education: [...] concerns. 12/07/2016 Appointment: [phone] ([facility] min) Moderate 12/07/2016 Patient [...] acute changes. 11/28/2016 Appointment: Mishel Balderrama WPtel: [phone] [facility] (15 min) Moderate 11/28/2016 Patient Education: Patient Medication Summary Completed 11/28/2016 Appointment: Mishel Balderrama WPtel: [phone] [facility] (15 min) Moderate 11/24/2016 Visit Plan: [...] changes. 11/15/2016 Appointment: Mishel Balderrama WPtel: [phone] [facility] (30 min) Complex 11/15/2016 Patient Education: [...] changes. 10/17/2016 Appointment: Mishel Balderrama WPtel: [phone] [facility] (30 min) Complex 10/17/2016 Patient Education: [...] prn tylenol 09/28/2016 App[facility]ment: [phone] ([facility] min) Moderate 09/28/2016 Patient Education: [...] control. 06/29/2016 Appointment: Lynn Arenas WPtel: [phone] [facility] (15 min) Moderate 06/29/2016 Patient Education: [...] [facility] (15 min) Moderate 06/01/2016 Patient Education: Patient Medication Summary Completed 06/01/2016 Patient Education: Obesity Completed 06/01/2016 Visit Plan: Cellulitis - continue w ith oral antibiotics as previously directed, return to clinic as previously directed, call for acute change in symptoms, worsening redness, warmth, discharge. 05/11/2016 Appointment: Damari Finn WPtel: [facility] (15 min) Moderate 05/11/2016 Patient [...] [facility] [address] (30 min) Complex 04/01/2016 Patient Education: Patient Medication Summary Completed 04/01/2016 Patient Education: Obesity Completed 04/01/2016 Appointment: Lynn Arenas WPtel: [address] [place] [phone] (30 min) Complex 03/29/2016 Visit Plan: Hypertension [...] levels of control. Low back pain-refill tramadol Uoflq-lrnwuogtzq-smonlzlx resolved 01/26/2016 Appointment: Lynn Arenas WPtel: [address] [place], [place] [phone] (30 min) Complex 01/26/2016 Patient Education: Patient Medication Summary Completed 01/26/2016 Patient Education: Obesity Completed 01/26/2016 Care Plan: BMI Above normal followup RADHA F-MGMT EDUC & TRAIN 1 PT Pending 01/26/2016 Care Plan: Referral Order SNOMED-CT : [id number] Pending 01/07/2016 Appointment: ArenasLynn WPtel: [address] [place], [place] [address] (15 min) Moderate 12/24/2015 Visit Plan: Hypertension [...] nor improving. 06/01/2015 Appointment: Damari Finn WPtel: [address] [place] [address] (15 min) Moderate 06/01/2015 Patient Education: Patient [...] with chronic hypothyroidism, After consultation with Dr. iFnn, will increase Synthroid to 200 mcg per [...] [facility] [address] follow up 12/11/2014 Patient Education: Patient Medication Summary Completed 12/11/2014 Patient Education: Hypertension Completed 12/11/2014 Appointment: Damari Finn WPtel: [facility] [address] follow up 11/27/2014 Visit Plan: Hidradenitis [...] to get her back MRI done at [facility] in [place] as that is where her specialist will be once we get her an appt with one of the local Neurosurgeons. 09/18/2014 Appointment: AakashJatindery [facility]Ptel[phone] [facility] up 09/18/2014 Patient Education: Patient [...] scheduled 07/31/2014 Appointment: Lynn [facility]el[phone] New Patient 07/31/2014 Patient Education: Patient Medication [...] . 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 Low back egzn-jqpklhs-sjuwvu tramadol for prn use claritin or zyrtec [...] . 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 Declined Procedure: (78239) FLU VAC NO PRSV 4 JUSTYNA 3 [...] levels of control. Low back pain-refill tramadol Cmocx-bykyulcvyu-cmtxhdtu resolved . Hypertension - wel l controlled [...] infection . Hypertension - well controlled - oelg nue with current medications, continue with no [...] to get her back MRI done at [facility] in [place] as that is where her specialist will [...]
--- OUTSIDE RECORDS SUMMARY | 2020-02-20 19:33 | XMS REPORT | CCD ---
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 Unknown Has never used illegal drugs 014 Allergies, Adverse Reactions, Alerts Substance Reaction Codes Entered Date Inactivated Date Status * NO KNOWN FOOD BEVERLY RGIES Unknown 07/31/2014 No Inactive Date Active bactrim hives, rash RxNorm: 612537 04/05/2016 No Inactive Date Active Past Medical [...] Instructions levothyroxine 125 mc g tablet RxNorm: 225126 1 Tablet(s) PO daily TAKE ONE TABLET BY MOUTH DAILY ON AN EMPTY STOMACH 09/06/2018 11/29/2019 Active lorazepam 1 mg tablet RxNorm: 726088 Tablet(s) TAKE TWO TABLETS BY MOUTH AT B EDTIME NEEDED FOR INSOMNIA AND ONE TABLET DAILY NEEDED ANXIETY 09/06/2018 11/04/2018 Active tramadol 50 mg tablet RxNorm: 960678 1 Tablet(s) PO Q4 PRN as needed for pain 09/06/2018 10/15/2018 In active tramadol 50 mg tablet RxNorm: 441689 1 Tablet(s) PO Q4 PRN as needed for pain 07/06/2018 08/14/2018 In active ciprofloxacin 0.3 % eye drops RxNorm: 181247 2 Drop(s) ophthalmic (eye) TID 06/28/2018 07/07/2018 In active lorazepam 1 mg tablet RxNorm: 511620 Tablet(s) TAKE TWO TABLETS BY MOUTH AT B EDTIME NEEDED FOR INSOMNIA AND ONE TABLET DAILY NEEDED ANXIETY 06/28/2018 08/26/2018 Inactive doxycycline hyclate 100 mg tablet RxNorm: 6910363 1 Tablet(s) PO BID 06/28/2018 07/04/2018 Inactive tramadol 50 mg tablet RxNorm: 431154 1 Tablet(s) PO Q4 PRN as needed for pain 06/13/2018 07/05/2018 In active lorazepam 1 mg tablet RxNorm: 670941 Tablet(s) TAKE TWO TABLETS BY MOUTH AT B EDTIME NEEDED FOR INSOMNIA AND ONE TABLET DAILY NEEDED ANXIETY 05/23/2018 06/27/2018 Inactive tramadol 50 mg tablet RxNorm: 424708 1 Tablet(s) PO Q4 PRN as needed for pain 05/23/2018 06/12/2018 In active levothyroxine 125 mc g tablet RxNorm: 623285 Tablet(s) TAKE ONE TA BLET BY MOUTH DAILY ON AN EMPTY STOMACH 05/23/2018 09/05/2018 Inactive tramadol 50 mg tablet RxNorm: 747375 1 Tablet(s) PO Q4 PRN as needed for pain 05/17/2018 05/22/2018 In active levothyroxine 125 mc g tablet RxNorm: 823667 TAKE ONE TABLET BY [facility] DAILY 05/15/2018 06/27/2018 In active levothyroxine 125 mc g tablet RxNorm: 116193 TAKE ONE TABLET BY [facility] DAILY 05/15/2018 06/27/2018 In active tramadol 50 mg tablet RxNorm: 911921 1 Tablet(s) PO Q4 PRN as needed for pain 04/30/2018 05/16/2018 In active Advair Diskus 100 mc g-50 mcg/dose powder for inhalation RxNorm: 3259947 1 Puff(s) INH BID 04/06/2018 No Stop Date Active Symbicort 80 mcg-4.5 mcg/actuation HFA aerosol inhaler RxNorm: 0822375 2 Puff(s) INH BID 04/06/2018 No Stop Date Active Advair Diskus 250 mc g-50 mcg/dose powder for inhalation RxNorm: 7940883 1 Puff(s) INH BID 04/05/2018 09/01/2018 Inactive lisinopril 20 mg-hyd rochlorothiazide 25 mg tablet RxNorm: 127749 Tablet(s) TAKE ONE TABLET BY MOUTH DAILY 04/05/2018 09/01/2018 Inactive Zyrtec 10 mg tablet RxNorm: 3719118 1 Tablet(s) PO daily x1 week then PRN 04/05/2018 08/02/2018 In active Zyrtec 10 mg tablet RxNorm: 2974804 1 Tablet(s) PO daily 04/04/2018 05/03/2018 Inactive tramadol 50 mg tablet RxNorm: 295060 1 Tablet(s) PO Q4 PRN as needed for pain 03/13/2018 04/21/2018 In active lorazepam 1 mg tablet RxNorm: 387371 Tablet(s) TAKE TWO TABLETS BY MOUTH AT B EDTIME NEEDED FOR INSOMNIA AND ONE TABLET DAILY NEEDED ANXIETY 03/02/2018 04/30/2018 Inactive levothyroxine 125 mc g tablet RxNorm: 127260 1 Tablet(s) PO daily 02/06/2018 05/06/2018 Inactive levothyroxine 125 mc g tablet RxNorm: 664151 TAKE ONE TABLET BY [facility] DAILY ON AN EMPTY STOMACH 02/06/2018 05/22/2018 Inactive tramadol 50 mg tablet RxNorm: 595981 1 Tablet(s) PO Q4 PRN as needed for pain 01/26/2018 03/06/2018 In active lorazepam 1 mg tablet RxNorm: 383259 Tablet(s) TAKE TWO TABLETS BY MOUTH AT B EDTIME NEEDED FOR INSOMNIA AND ONE TABLET DAILY NEEDED ANXIETY 01/23/2018 06/27/2018 Inactive Symbicort 80 mcg-4.5 mcg/actuation HFA aerosol inhaler RxNorm: 2665421 INH 01/05/2018 06/27/2018 In active tramadol 50 mg tablet RxNorm: 299113 1 Tablet(s) PO Q4 PRN as needed for pain 01/04/2018 01/25/2018 In active Advair Diskus 250 mc g-50 mcg/dose powder for inhalation RxNorm: 4979500 1 Puff(s) INH BID 11/29/2017 03/28/2018 Inactive hydrochlorothiazide 12.5 mg tablet RxNorm: 515489 1 Tablet(s) PO daily 11/29/2017 12/28/2017 In active tramadol 50 mg tablet RxNorm: 251392 1 Tablet(s) PO Q4 PRN as needed for pain 11/23/2017 01/01/2018 In active tramadol 50 mg tablet RxNorm: 228681 1 Tablet(s) PO Q4 PRN as needed for pain 10/06/2017 11/14/2017 In active lorazepam 1 mg tablet RxNorm: 987934 Tablet(s) TAKE TWO TABLETS BY MOUTH AT B EDTIME NEEDED FOR INSOMNIA AND ONE TABLET DAILY NEEDED ANXIETY 09/12/2017 06/27/2018 Inactive tramadol 50 mg tablet RxNorm: 833121 1 Tablet(s) PO Q4 PRN as needed for pain 09/12/2017 10/05/2017 In active tramadol 50 mg tablet RxNorm: 128588 1 Tablet(s) PO Q4 PRN as needed for pain 08/15/2017 09/11/2017 In active tramadol 50 mg tablet RxNorm: 417696 1 Tablet(s) PO Q4 PRN as needed for pain 06/29/2017 08/07/2017 In active ProAir HFA 90 mcg/ac tuation aerosol inhaler RxNorm: 567099 INHALE 1 TO 2 PUFFS F OUR TIMES A DAY NEEDED FOR ASTHMA 06/14/2017 11/10/2017 Inactive prednisone 20 mg tablet RxNorm: 366724 1 Tablet(s) PO BID x 2 days, then 1 pill daily x 3 days, then 1/2 pill every other day x 3 doses. 06/14/2017 09/11/2017 Inactive Kenalog 40 mg/mL madhavi pension for injection RxNorm: 6767737 1 Milliliter(s) Inj 06/14/2017 06/14/2017 In active Zyrtec 10 mg tablet RxNorm: 4828085 1 Tablet(s) PO daily 06/14/2017 07/13/2017 Inactive tramadol 50 mg tablet RxNorm: 271380 1 Tablet(s) PO Q4 PRN as needed for pain 06/08/2017 06/27/2017 In active [SAVINGS FOR UNINSURED PATIENTS -- BIN:0 51464, PCN: ASPROD1, Group: [id number], ID# [id number], Process claim through [employer], for questions: . THIS IS NOT INSURANCE.] tramadol 50 mg tablet RxNorm: 374041 1 Tablet(s) PO Q4 PRN as needed for pain 05/16/2017 06/04/2017 In active [SAVINGS FOR UNINSURED PATIENTS -- BIN:0 66737, PCN: ASPROD1, Group: [id number], ID# [id number], Process claim through [employer], for questions: . THIS IS NOT INSURANCE.] lorazepam 1 mg tablet RxNorm: 411815 Tablet(s) TAKE TWO TABLETS BY MOUTH AT B EDTIME NEEDED FOR INSOMNIA AND ONE TABLET DAILY NEEDED ANXIETY 05/16/2017 08/13/2017 Inactive Lasix 20 mg tablet RxNorm: 182884 1 Tablet(s) PO daily 05/10/2017 05/09/2017 Inactive Lasix 20 mg tablet RxNorm: 323077 1 Tablet(s) PO daily 05/10/2017 05/12/2017 Inactive potassium chloride E R 10 mEq tablet,extended release RxNorm: 195648 1 Tablet(s) PO daily while on the lasix 05/10/2017 05/09/2017 Inactive potassium chloride E R 10 mEq tablet,extended release RxNorm: 053341 1 Tablet(s) PO daily while on the lasix 05/10/2017 05/12/2017 Inactive prednisone 20 mg tablet RxNorm: 127480 1 Tablet(s) PO BID x 2 days, then 1 pill daily x 3 days, then 1/2 pill every other day x 3 doses. 04/19/2017 06/13/2017 Inactive Zithromax Z-Linus 250 mg tablet RxNorm: 192571 1 Tablet(s) PO UD 04/13/2017 06/28/2017 Inactive prednisone 20 mg tablet RxNorm: 656128 1 Tablet(s) PO BID 04/13/2017 04/17/2017 Inactive levothyroxine 125 mc g tablet RxNorm: 698909 1 Tablet(s) PO daily 04/11/2017 10/07/2017 Inactive tramadol 50 mg tablet RxNorm: 958348 1 Tablet(s) PO Q4 PRN as needed for pain 03/27/2017 04/15/2017 In active [SAVINGS FOR UNINSURED PATIENTS -- BIN:0 41519, PCN: ASPROD1, Group: [id number], ID# [id number], Process claim through [employer], for questions: . THIS IS NOT INSURANCE.] Kenalog 40 mg/mL madhavi pension for injection RxNorm: 2799649 1 Milliliter(s) Inj 03/27/2017 03/27/2017 In active tramadol 50 mg tablet RxNorm: 548015 1 Tablet(s) PO Q4H as needed for pain 03/09/2017 03/26/2017 In active [SAVINGS FOR UNINSURED PATIENTS -- BIN:0 87363, PCN: ASPROD1, Group: [id number], ID# [id number], Process claim through [employer], for questions: . THIS IS NOT INSURANCE.] lisinopril 20 mg-hyd rochlorothiazide 25 mg tablet RxNorm: 703407 TAKE ONE TABLET BY MOUTH DAILY 01/29/2017 11/21/2017 Inactive lorazepam 1 mg tablet RxNorm: 796987 Tablet(s) TAKE TWO TABLETS BY MOUTH AT B EDTIME NEEDED FOR INSOMNIA AND ONE TABLET DAILY NEEDED ANXIETY 01/05/2017 04/04/2017 Inactive tramadol 50 mg tablet RxNorm: 070813 1 Tablet(s) PO Q4H as needed for pain 12/07/2016 01/13/2017 In active [SAVINGS FOR UNINSURED PATIENTS -- BIN:0 22859, PCN: ASPROD1, Group: [id number], ID# [id number], Process claim through [employer], for questions: . THIS IS NOT INSURANCE.] Kenalog 40 mg/mL madhavi pension for injection RxNorm: 5691648 Milliliter(s) Inj 12/07/2016 12/07/2016 In active nystatin 100,000 uni t/mL oral suspension RxNorm: 343146 4 Milliliter(s) PO QI D 12/07/2016 12/11/2016 In active Francia-D 12 Hour 60 mg-120 mg tablet,extended release RxNorm: 489724 1 Tablet(s) PO BID 12/07/2016 01/11/2017 Inactive lorazepam 1 mg tablet RxNorm: 269076 Tablet(s) TAKE TWO TABLETS BY MOUTH AT B EDTIME AND ONE TABLET DAILY NEEDED 12/07/2016 01/04/2017 Inactive (Response to an electronic controlled substance refill request - RxReferenceNumber: [id number]) albuterol sulfate 2. 5 mg/3 mL (0.083 %) solution for nebulization RxNorm: 366114 3 Milliliter(s) INH TID 11/29/2016 11/28/2016 Inactive prednisone 10 mg tablet RxNorm: 102460 Tablet(s) PO UD 11/29/2016 12/05/2016 Inactive 6,5,4,3,2,1 doxycycline hyclate 100 mg tablet RxNorm: 147895 1 Tablet(s) PO BID 11/29/2016 12/04/2016 Inactive albuterol sulfate 2. 5 mg/3 mL (0.083 %) solution for nebulization RxNorm: 139179 3 Milliliter(s) INH TID 11/29/2016 12/03/2016 Inactive Kenalog 40 mg/mL madhavi pension for injection RxNorm: 7893706 Milliliter(s) Inj 11/28/2016 11/28/2016 In active tramadol 50 mg tablet RxNorm: 653442 1 Tablet(s) PO Q4H as needed for pain 11/15/2016 12/06/2016 In active [SAVINGS FOR UNINSURED PATIENTS -- BIN:0 67765, PCN: ASPROD1, Group: [id number], ID# [id number], Process claim through [employer], for questions: . THIS IS NOT INSURANCE.] prednisone 20 mg tablet RxNorm: 862646 2 Tablet(s) PO daily 11/15/2016 11/19/2016 Inactive Advair Diskus 100 mc g-50 mcg/dose powder for inhalation RxNorm: 6992245 1 Puff(s) INH BID 11/15/2016 06/11/2017 Inactive ProAir HFA 90 mcg/ac tuation aerosol inhaler RxNorm: 638222 INHALE 1 TO 2 PUFFS F OUR TIMES A DAY NEEDED FOR ASTHMA 11/15/2016 04/13/2017 Inactive Zithromax Z-Linus 250 mg tablet RxNorm: 703566 1 Tablet(s) PO UD 11/15/2016 11/27/2016 Inactive Zyrtec 10 mg tablet RxNorm: 6360559 1 Tablet(s) PO daily 10/17/2016 11/15/2016 Inactive Keflex 500 mg capsule RxNorm: 088681 1 Capsule(s) PO TID 10/17/2016 10/23/2016 Inactive prednisone 10 mg tablet RxNorm: 454989 Tablet(s) PO UD 10/17/2016 11/28/2016 Inactive 6,5,4,3,2,1 tramadol 50 mg tablet RxNorm: 442454 1 Tablet(s) PO Q4H as needed for pain 09/28/2016 11/06/2016 In active [SAVINGS FOR UNINSURED PATIENTS -- BIN:0 90751, PCN: ASPROD1, Group: AME08, ID# [id number], Process claim through [employer], for questions: . THIS IS NOT INSURANCE.] ProAir HFA 90 mcg/ac tuation aerosol inhaler RxNorm: 498968 INHALE 1 TO 2 PUFFS F OUR TIMES A DAY NEEDED FOR ASTHMA 09/15/2016 11/14/2016 Inactive doxycycline hyclate 100 mg tablet RxNorm: 410712 1 Tablet(s) PO BID 09/15/2016 09/24/2016 Inactive doxycycline hyclate 100 mg tablet RxNorm: 699014 1 Tablet(s) PO BID 07/29/2016 08/07/2016 Inactive tramadol 50 mg tablet RxNorm: 567006 1 Tablet(s) PO Q4H as needed for pain 07/29/2016 09/06/2016 In active [SAVINGS FOR UNINSURED PATIENTS -- BIN:0 32553, PCN: ASPROD1, Group: [id number], ID# [id number], Process claim through [employer], for questions: . THIS IS NOT INSURANCE.] lorazepam 1 mg tablet RxNorm: 592292 Tablet(s) TAKE TWO TABLETS BY MOUTH AT B EDTIME AND ONE TABLET DAILY NEEDED 07/29/2016 10/26/2016 Inactive (Response to an electronic controlled substance refill request - RxReferenceNumber: [id number]) levothyroxine 125 mc g tablet RxNorm: 038418 1 Tablet(s) PO daily 06/29/2016 06/29/2016 Inactive levothyroxine 137 mc g tablet RxNorm: 009647 1 Tablet(s) PO daily 06/29/2016 12/25/2016 Inactive ketoconazole 2 % sha mpoo RxNorm: 656342 1 Application TOP BID 06/29/2016 07/03/2016 Inactive tramadol 50 mg tablet RxNorm: 399374 1 Tablet(s) PO Q4H as needed for pain 06/16/2016 07/25/2016 In active [SAVINGS FOR UNINSURED PATIENTS -- BIN:0 44546, PCN: ASPROD1, Group: [id number], ID# [id number], Process claim through [employer], for questions: . THIS IS NOT INSURANCE.] Bactroban 2 % topica l ointment RxNorm: 986943 APPLY TO AFFECTED ARE A(S) TWO TIMES A DAY 06/16/2016 04/16/2017 Inactive fluconazole 150 mg t ablet RxNorm: 871952 1 Tablet(s) PO daily 06/01/2016 06/05/2016 Inactive gentamicin 0.1 % top ical ointment RxNorm: 048867 1 Application TOP QID 05/12/2016 05/25/2016 In active metronidazole 500 mg tablet RxNorm: 215274 1 Tablet(s) PO TID 05/11/2016 05/24/2016 Inactive gentamicin 0.1 % top ical ointment RxNorm: 423477 1 Application TOP QID 05/11/2016 05/11/2016 In active doxycycline hyclate 100 mg tablet RxNorm: 103473 1 Tablet(s) PO BID 05/11/2016 05/24/2016 Inactive lorazepam 1 mg tablet RxNorm: 581758 Tablet(s) TAKE TWO TABLETS BY MOUTH AT B EDTIME AND ONE TABLET DAILY NEEDED 05/02/2016 07/28/2016 Inactive (Response to an electronic controlled substance refill request - RxReferenceNumber: [id number]) Diflucan 150 mg tablet RxNorm: 053408 1 Tablet(s) PO daily x5 days then 1 x we ekly x 4 weeks. 05/02/2016 04/10/2017 Inactive Diflucan 150 mg tablet RxNorm: 310936 1 Tablet(s) PO every other day 04/19/2016 04/28/2016 In active Diflucan 150 mg tablet RxNorm: 650967 1 Tablet(s) PO every other day 04/19/2016 04/18/2016 In active Diflucan 150 mg tablet RxNorm: 873817 1 Tablet(s) PO daily 04/05/2016 04/11/2016 Inactive mupirocin 2 % topica l ointment RxNorm: 158048 1 Application TOP BID 04/05/2016 05/04/2016 Inactive tramadol 50 mg tablet RxNorm: 509932 1 Tablet(s) PO Q4H as needed for pain 04/05/2016 05/14/2016 In active [SAVINGS FOR UNINSURED PATIENTS -- BIN:0 80227, PCN: ASPROD1, Group: [id number], ID# [id number], Process claim through Stun[employer], for questions: . THIS IS NOT INSURANCE.] prednisone 10 mg tablet RxNorm: 823520 Tablet(s) PO UD 04/01/2016 09/26/2016 Inactive 6,5,4,3,2,1 levothyroxine 137 mc g tablet RxNorm: 335480 1 Tablet(s) PO daily 03/21/2016 03/20/2016 Inactive levothyroxine 137 mc g tablet RxNorm: 070977 1 Tablet(s) PO daily 03/21/2016 06/28/2016 Inactive Advair Diskus 100 mc g-50 mcg/dose powder for inhalation RxNorm: 9168196 1 Puff(s) INH BID 01/26/2016 05/24/2016 Inactive tramadol 50 mg tablet RxNorm: 715460 1 Tablet(s) PO Q4H as needed for pain 01/26/2016 03/05/2016 In active [SAVINGS FOR UNINSURED PATIENTS -- BIN:0 83733, PCN: ASPROD1, Group: [id number], ID# [id number], Process claim through Stun[employer], for questions: . THIS IS NOT INSURANCE.] Bactroban 2 % topica l ointment RxNorm: 604291 APPLY TO AFFECTED ARE A(S) TWO TIMES A DAY 12/22/2015 12/31/2015 Inactive Bactrim DS 800 mg-16 0 mg tablet RxNorm: 038659 TAKE ONE TABLET BY [facility] TWICE A DAY 12/22/2015 04/18/2016 In active Bactrim DS 800 mg-16 0 mg tablet RxNorm: 628794 1 Tablet(s) PO BID 12/21/2015 12/30/2015 Inactive lisinopril 20 mg-hyd rochlorothiazide 25 mg tablet RxNorm: 561863 1 Tablet(s) PO daily 12/21/2015 06/17/2016 Inactive [SAVINGS FOR UNINSURED PATIENTS -- BIN:0 48657, PCN: ASPROD1, Group: [id number], ID# [id number], Process claim through Stunable, for questions: . THIS IS NOT INSURANCE.] tramadol 50 mg tablet RxNorm: 604813 1 Tablet(s) PO Q4H as needed for pain 12/03/2015 01/11/2016 In active [SAVINGS FOR UNINSURED PATIENTS -- BIN:0 67425, PCN: ASPROD1, Group: [id number], ID# [id number], Process claim through Stun[employer], for questions: . THIS IS NOT INSURANCE.] lorazepam 1 mg tablet RxNorm: 528451 Tablet(s) TAKE TWO TABLETS BY MOUTH AT B EDTIME AND ONE TABLET DAILY NEEDED 11/26/2015 06/27/2018 Inactive (Response to an electronic controlled substance refill request - RxReferenceNumber: [id number]) Bactrim DS 800 mg-16 0 mg tablet RxNorm: 927405 1 Tablet(s) PO BID 11/25/2015 12/04/2015 Inactive levothyroxine 150 mc g tablet RxNorm: 936514 1 Tablet(s) PO daily 11/25/2015 03/20/2016 Inactive Bactroban 2 % topica l ointment RxNorm: 641318 1 Application TOP BID 10/12/2015 10/21/2015 Inactive Bactrim DS 800 mg-16 0 mg tablet RxNorm: 304241 1 Tablet(s) PO BID 09/07/2015 09/06/2015 Inactive Bactrim DS 800 mg-16 0 mg tablet RxNorm: 946375 1 Tablet(s) PO BID 09/07/2015 09/16/2015 Inactive lorazepam 1 mg tablet RxNorm: 683481 Tablet(s) TAKE TWO TABLETS BY MOUTH AT B EDTIME AND ONE TABLET DAILY NEEDED 08/28/2015 11/24/2015 Inactive (Response to an electronic controlled substance refill request - RxReferenceNumber: [id number]) levothyroxine 175 mc g tablet RxNorm: 426697 1 Tablet(s) PO daily 08/24/2015 11/24/2015 Inactive tramadol 50 mg tablet RxNorm: 117518 1 Tablet(s) PO Q4H as needed for pain 08/24/2015 09/11/2017 In active [SAVINGS FOR UNINSURED PATIENTS -- BIN:0 85975, PCN: ASPROD1, Group: [id number], ID# [id number], Process claim through [employer], for questions: . THIS IS NOT INSURANCE.] lisinopril 20 mg-hyd rochlorothiazide 25 mg tablet RxNorm: 761069 1 Tablet(s) PO daily TAKE 1 TABLET BY MOUTH DAILY 08/24/2015 06/27/2018 Inactive ProAir HFA 90 mcg/ac tuation aerosol inhaler RxNorm: 646847 1-2 Puff(s) INH PRN I NHALE ONE TO TWO PUFFS BY MOUTH FOUR TIMES A DAY NEEDED FOR ASTHMA 08/24/2015 12/01/2015 In active ProAir HFA 90 mcg/ac tuation aerosol inhaler RxNorm: 3276217 INHALE ONE TO TWO PU FFS BY MOUTH FOUR TIMES A DAY NEEDED FOR ASTHMA 08/17/2015 08/23/2015 Inactive Advair Diskus 250 mc g-50 mcg/dose powder for inhalation RxNorm: 6659736 1 Puff(s) INH BID 07/20/2015 07/19/2015 Inactive Advair Diskus 250 mc g-50 mcg/dose powder for inhalation RxNorm: 2849855 1 Puff(s) INH BID 07/20/2015 11/16/2015 Inactive tramadol 50 mg tablet RxNorm: 174132 1 Tablet(s) PO Q4H as needed for pain 07/10/2015 08/17/2015 In active [SAVINGS FOR UNINSURED PATIENTS -- BIN:0 04875, PCN: ASPROD1, Group: [id number], ID# [id number], Process claim through Stun[employer], for questions: . THIS IS NOT INSURANCE.] Zithromax Z-Linus 250 mg tablet RxNorm: 344510 1 Tablet(s) PO UD 07/10/2015 01/18/2016 Inactive Keflex 500 mg capsule RxNorm: 361684 1 Capsule(s) PO TID 06/01/2015 06/07/2015 Inactive mupirocin 2 % topica l ointment RxNorm: 406829 1 Application TOP TID 06/01/2015 06/10/2015 Inactive lisinopril 20 mg-hyd rochlorothiazide 25 mg tablet RxNorm: 579686 TAKE 1 TABLET BY MOUT H DAILY 05/30/2015 08/23/2015 Inactive lisinopril 20 mg-hyd rochlorothiazide 25 mg tablet RxNorm: 768631 1 Tablet(s) PO daily 05/29/2015 11/24/2015 Inactive [SAVINGS FOR UNINSURED PATIENTS -- BIN:0 93677, PCN: ASPROD1, Group: [id number], ID# [id number], Process claim through [employer], for questions: . THIS IS NOT INSURANCE.] lorazepam 1 mg tablet RxNorm: 046538 Tablet(s) TAKE TWO TABLETS BY MOUTH AT B EDTIME AND ONE TABLET DAILY NEEDED 04/17/2015 07/13/2015 Inactive (Response to an electronic controlled substance refill request - RxReferenceNumber: [id number]) levothyroxine 200 mc g tablet RxNorm: 117126 1 Tablet(s) PO daily 03/12/2015 08/23/2015 Inactive [SAVINGS FOR UNINSURED PATIENTS -- BIN:0 70360, PCN: ASPROD1, Group: [id number], ID# [id number], Process claim through [employer], for questions: . THIS IS NOT INSURANCE.] lisinopril 20 mg-hyd rochlorothiazide 25 mg tablet RxNorm: 800243 1 Tablet(s) PO daily 03/11/2015 05/28/2015 Inactive [SAVINGS FOR UNINSURED PATIENTS -- BIN:0 56789, PCN: ASPROD1, Group: [id number], ID# [id number], Process claim through [employer], for questions: . THIS IS NOT INSURANCE.] levothyroxine 175 mc g tablet RxNorm: 253987 1 Tablet(s) PO daily 03/09/2015 03/11/2015 Inactive recheck blood in 3 months- THIS IS CORRE CT DOSAGE levothyroxine 175 mc g tablet RxNorm: 568881 1 Tablet(s) PO daily 03/09/2015 03/08/2015 Inactive recheck blood in 3 months levothyroxine 150 mc g tablet RxNorm: 764367 1 Tablet(s) PO daily 03/09/2015 03/08/2015 Inactive recheck blood in 3 months lorazepam 1 mg tablet RxNorm: 332623 TAKE TWO TABLETS BY MOUTH AT BEDTIME AND ONE TABLET DAILY NEEDED 12/25/2014 01/22/2015 Inactive (Response to an electronic controlled substance refill request - RxReferenceNumber: [id number]) lorazepam 1 mg tablet RxNorm: 456620 Tablet(s) TAKE TWO TABLETS BY MOUTH EVER Y NIGHT AT BEDTIME AND TAKE ONE TABLET BY MOUTH DAILY NEEDED 12/23/2014 12/25/2014 Inactive (Response to an electronic controlled [place] bstance refill request - RxReferenceNumber: [id number]) levothyroxine 150 mc g tablet RxNorm: 852477 1 Tablet(s) PO daily 12/12/2014 03/08/2015 Inactive recheck blood in 3 months Diflucan 150 mg tablet RxNorm: 687538 1 Tablet(s) PO every other day (start af ter finished with Cipro) 11/17/2014 08/23/2015 Inactive tramadol 50 mg tablet RxNorm: 120286 1 Tablet(s) PO Q4H as needed for pain 11/10/2014 12/17/2014 In active [SAVINGS FOR UNINSURED PATIENTS -- BIN:0 11685, PCN: ASPROD1, [facility]: [facility] [place], ID# [id number], Process claim through Stun[employer], for questions: . THIS IS NOT INSURANCE.] Cipro 500 mg tablet RxNorm: 997307 1 Tablet(s) PO BID 10/23/2014 10/29/2014 Inactive Flagyl 500 mg tablet RxNorm: 277556 1 Tablet(s) PO TID 10/23/2014 10/29/2014 Inactive Cipro 500 mg tablet RxNorm: 019096 1 Tablet(s) PO BID 10/23/2014 10/22/2014 Inactive Flagyl 500 mg tablet RxNorm: 512030 1 Tablet(s) PO TID 10/23/2014 10/22/2014 Inactive Diflucan 150 mg tablet RxNorm: 401179 1 Tablet(s) PO every other day (start af ter finished with Cipro) 10/23/2014 11/16/2014 Inactive lorazepam 1 mg tablet RxNorm: 688618 TAKE TWO TABLETS BY MOUTH EVERY NIGHT AT BEDTIME AND TAKE ONE TABLET BY MOUTH DAILY NEEDED 10/21/2014 10/21/2014 Inactive (Response to an electronic controlled north bstance refill request - RxReferenceNumber: [id number]) lorazepam 1 mg tablet RxNorm: 112662 TAKE TWO TABLETS BY MOUTH EVERY NIGHT AT BEDTIME AND TAKE ONE TABLET BY MOUTH DAILY NEEDED 10/21/2014 11/18/2014 Inactive (Response to an electronic controlled north bstance refill request - RxReferenceNumber: [id number]) lorazepam 1 mg tablet RxNorm: 332087 Tablet(s) TAKE TWO TABLETS BY MOUTH AT B EDTIME, ALSO TAKE ONE TABLET BY MOUTH DAILY NEEDED 10/13/2014 10/21/2014 Inactive (Res ponse to an electronic controlled substance refill request - RxReferenceNumber: [id number]) ProAir HFA 90 mcg/ac tuation aerosol inhaler RxNorm: 8959975 1-2 inhale INH QID a s needed ASTHMA 10/13/2014 12/26/2014 Inactive ProAir HFA 90 mcg/ac tuation aerosol inhaler RxNorm: 3650917 1-2 inhale INH QID a s needed ASTHMA 09/18/2014 10/12/2014 Inactive meloxicam 7.5 mg tablet RxNorm: 104820 1 Tablet(s) PO daily 09/18/2014 03/10/2015 Inactive [SAVINGS FOR UNINSURED PATIENTS -- BIN:0 82060, PCN: ASPROD1, Group: [id number], ID# [id number], Process claim through [employer], for questions: . THIS IS NOT INSURANCE.] sulfamethoxazole 800 mg-trimethoprim 160 mg tablet RxNorm: 993865 1 Tablet(s) PO BID 09/18/2014 10/07/2014 Inactive levothyroxine 175 mc g tablet RxNorm: 487258 1 Tablet(s) PO daily 09/17/2014 12/11/2014 Inactive levothyroxine 175 mc g tablet RxNorm: 558850 1 Tablet(s) PO daily 09/17/2014 09/16/2014 Inactive lorazepam 1 mg tablet RxNorm: 588778 Tablet(s) TAKE TWO TABLETS BY MOUTH AT B EDTIME, ALSO TAKE ONE TABLET BY MOUTH DAILY NEEDED 09/12/2014 10/11/2014 Inactive (Res ponse to an electronic controlled substance refill request - RxReferenceNumber: [id number]) lorazepam 1 mg tablet RxNorm: 769321 TAKE TWO TABLETS BY MOUTH AT BEDTIME, AL SO TAKE ONE TABLET BY MOUTH DAILY NEEDED 09/08/2014 09/11/2014 Inactive (Res ponse to an electronic controlled substance refill request - [id number]) meloxicam 7.5 mg tablet RxNorm: 642548 1 Tablet(s) PO daily 09/01/2014 09/17/2014 Inactive [SAVINGS FOR UNINSURED PATIENTS -- BIN:0 52656, PCN: ASPROD1, Group: [id number], ID# [id number], Process claim through MedImpact, for questions: . THIS IS NOT INSURANCE.] lisinopril 20 mg-hyd rochlorothiazide 25 mg tablet RxNorm: 809783 1 Tablet(s) PO daily 09/01/2014 12/29/2014 Inactive [SAVINGS FOR UNINSURED PATIENTS -- BIN:0 73784, PCN: ASPROD1, Group: [id number], ID# [id number], Process claim through MedImpact, for questions: . THIS IS NOT INSURANCE.] tramadol 50 mg tablet RxNorm: 882832 1 Tablet(s) PO Q4H as needed for pain 08/20/2014 11/07/2014 In active [SAVINGS FOR UNINSURED PATIENTS -- BIN:0 28453, PCN: ASPROD1, Group: [id number], ID# [id number], Process claim through MedImpact, for questions: . THIS IS NOT INSURANCE.] meloxicam 7.5 mg tablet RxNorm: 578573 1 Tablet(s) PO daily 08/14/2014 08/31/2014 Inactive [SAVINGS FOR UNINSURED PATIENTS -- BIN:0 41108, PCN: ASPROD1, Group: [id number], ID# [id number], Process claim through MedImpact, for questions: . THIS IS NOT INSURANCE.] lorazepam 1 mg tablet RxNorm: 449495 2 Tablet(s) PO QHS and 1 tab qd PRN 08/01/2014 09/08/2014 In active [SAVINGS FOR UNINSURED PATIENTS -- BIN:0 22711, PCN: ASPROD1, Group: [id number], ID# [id number], Process claim through MedImpact, for questions: . THIS IS NOT INSURANCE.] levothyroxine 200 mc g tablet RxNorm: 846171 1 Tablet(s) PO daily 07/31/2014 09/16/2014 Inactive [SAVINGS FOR UNINSURED PATIENTS -- BIN:0 46346, PCN: ASPROD1, Group: AME08, ID# [id number], Process claim through Stunable, for questions: . THIS IS NOT INSURANCE.] lorazepam 1 mg tablet RxNorm: 148179 2 Tablet(s) PO QHS and 1 tab qd PRN No Start Date 07/31/2014 Inactive Phenergan VC-Codeine oral RxNorm: 335421 oral No S tart Date 11/26/2017 Inactive meloxicam 7.5 mg tablet RxNorm: 610991 1 Tablet(s) PO daily No Start Date 08/13/2014 Inactive lisinopril 20 mg-hyd rochlorothiazide 25 mg tablet RxNorm: 339361 1 Tablet(s) PO daily No Start Date 08/31/2014 Inactive levothyroxine 200 mc g tablet RxNorm: 814214 1 Tablet(s) PO daily No Start Date 07/30/2014 Inactive Diflucan 150 mg tablet RxNorm: 047531 1 Tablet(s) PO every other day No Start Date 10/22/2014 Inactive Zithromax Z-Linus 250 mg tablet RxNorm: 486911 1 Tablet(s) PO UD No Start Date 07/09/2015 Inactive tramadol 50 mg tablet RxNorm: 156993 1 Tablet(s) PO Q6 as needed No Start Date 08/19/2014 Inactive Medication Administered Medication Codes Instruc tions Start Date Status Kenalog 40 mg/mL suspension for injection RxNorm: 7178469 1Milliliter 06/14/2017 N o longer Active Kenalog 40 mg/mL suspension for injection RxNorm: 1273019 1Milliliter 03/27/2017 N o longer Active Kenalog 40 mg/mL suspension for injection RxNorm: 2949286 Milliliter 12/07/2016 No longer Active Kenalog 40 mg/mL suspension for injection RxNorm: 2352488 Milliliter 11/28/2016 No longer Active Immunizations Vaccine [...] 30.0 pg 04/04/2018 Cbc With Differential Ord2 Pope% 10.9 % 04/04/2018 Cbc With Differential Ord2 [...] 1.42 K/ul 04/04/2018 Cbc With Differential Ord2 Pope ABS# 0.6 K/ul 04/04/2018 Cbc With Differential Ord2 Eos ABS# 0.1 K/ul 04/04/2018 Cbc With Differential Ord2 Baso ABS# 0.0 K/ul 04/04/2018 Free T4 Xlx129 FREE T4 1.25 ng/dL 04/04/2018 Tsh Ord6 [...] 25.9 % 11/28/2017 Cbc With Differential Ord2 Pope% 10.1 % 11/28/2017 Cbc With Differential Ord2 [...] 1.33 K/ul 11/28/2017 Cbc With Differential Ord2 Pope ABS# 0.5 K/ul 11/28/2017 Cbc With Differential Ord2 Eos ABS# 0.1 K/ul 11/28/2017 Cbc With Differential Ord2 Baso ABS# 0.0 K/ul 11/28/2017 Free T4 Gnp430 FREE T4 1.43 ng/dL 11/28/2017 Lipid Ord30 CHOL 186 mg/dL 11/28/2017 Lipid Ord30 HDL 54.0 mg/dl 11/28/2017 Lipid Ord30 TRIG 59 mg/dL 11/28/2017 Lipid Ord30 LDL 120 mg/dL 11/28/2017 Lipid Ord30 C/HDL 3.4 Ratio 11/28/2017 Comp Metabolic Pxm739 NA 141 mEq/L 11/28/2017 Comp Metabolic Irl088 K 4.0 mEq/L 11/28/2017 Comp Metabolic Gmi009 CL 105 mEq/L 11/28/2017 Comp Metabolic Fzj638 CO2 29.0 mEq/L 11/28/2017 Comp Metabolic Llp336 AN ION GAP 11 11/28/2017 Comp Metabolic Tka682 GL UCOSE 91 mg/dL 11/28/2017 Comp Metabolic Tkd282 Cr eat 0.8 mg/dL 11/28/2017 Comp Metabolic Xni779 eG FR 74 ml/min/1.73m2 11/28 Comp Metabolic Fiw625 BUN 15 mg/dL 11/28/2017 Comp Metabolic Brn298 B/ C Ratio 18.8 Ratio 11/28/2017 Comp Metabolic Eyw920 CA LCIUM 8.6 mg/dL 11/28/2017 Comp Metabolic Ivp725 AL K PHOS 76 U/L 11/28/2017 Comp Metabolic Bnc936 T(SGOT) 10 U/L 11/28/2017 Comp Metabolic Xpp398 AL T(SGPT) 8 U/L 11/28/2017 Comp Metabolic Xni119 BI LI T 0.5 mg/dL 11/28/2017 Comp Metabolic Twy824 AL BUMIN 4.0 g/dL 11/28/2017 Comp Metabolic Ndm249 TP RO 6.1 g/dL 11/28/2017 Comp Metabolic Atk221 GL OB 2.1 g/dL 11/28/2017 Comp Metabolic Gvm583 A/ G Ratio 1.9 Ratio 11/28/2017 Comp Metabolic Tmg690 Os mo 282 mOsmo 11/28/2017 Tsh Ord6 TSH (3rd IS) 3.31 uIU/mL 11/28/2017 Tsh Ord6 hTSH II 1.45 uIU/mL 03/27/2017 Free T4 Zck192 FREE T4 1.23 ng/dL 03/27/2017 Comp Metabolic Rhd423 NA 140 mEq/L 09/28/2016 Comp Metabolic Ngb471 K 3.9 mEq/L 09/28/2016 Comp Metabolic Jyk601 CL 104 mEq/L 09/28/2016 Comp Metabolic Wkj959 CO2 28.0 mEq/L 09/28/2016 Comp Metabolic Gws521 AN ION GAP 12 09/28/2016 Comp Metabolic Vbw677 GL UCOSE 97 mg/dL 09/28/2016 Comp Metabolic Jec661 Cr eat 0.8 mg/dL 09/28/2016 Comp Metabolic Rbz362 eG FR 79 ml/min/1.73m2 09/28 Comp Metabolic Yay433 BUN 13 mg/dL 09/28/2016 Comp Metabolic Qoz651 B/ C Ratio 17.1 Ratio 09/28/2016 Comp Metabolic Aof755 CA LCIUM 8.9 mg/dL 09/28/2016 Comp Metabolic Kca003 AL K PHOS 100 U/L 09/28/2016 Comp Metabolic Rjq880 T(SGOT) 12 U/L 09/28/2016 Comp Metabolic Rrs952 AL T(SGPT) 9 U/L 09/28/2016 Comp Metabolic Wzb738 BI LI T 0.4 mg/dL 09/28/2016 Comp Metabolic Oif089 AL BUMIN 4.1 g/dL 09/28/2016 Comp Metabolic Bsx150 TP RO 6.6 g/dL 09/28/2016 Comp Metabolic Ave867 GL OB 2.5 g/dL 09/28/2016 Comp Metabolic Fpf795 A/ G Ratio 1.6 Ratio 09/28/2016 Comp Metabolic Shg452 Os mo 279 mOsmo 09/28/2016 Lipid Ord30 [...] 28.8 pg 09/28/2016 Cbc With Differential Ord2 Pope% 7.2 % 09/28/2016 Cbc With Differential Ord2 [...] 1.41 K/ul 09/28/2016 Cbc With Differential Ord2 Pope ABS# 0.5 K/ul 09/28/2016 Cbc With Differential Ord2 Eos ABS# 0.2 K/ul 09/28/2016 Cbc With Differential Ord2 Baso ABS# 0.0 K/ul 09/28/2016 Free T4 Tut803 FREE T4 1.43 ng/dL 09/28/2016 Tsh Ord6 hTSH II 0.52 uIU/mL 09/28/2016 Tsh Ord6 hTSH II 0.47 uIU/mL 06/16/2016 Comp Metabolic Iyc619 NA 139 mEq/L 06/16/2016 Comp Metabolic Zot459 K 4.3 mEq/L 06/16/2016 Comp Metabolic Gou629 CL 105 mEq/L 06/16/2016 Comp Metabolic Awd727 CO2 30.0 mEq/L 06/16/2016 Comp Metabolic Ned008 AN ION GAP 8 06/16/2016 Comp Metabolic Zvs114 GL UCOSE 90 mg/dL 06/16/2016 Comp Metabolic Pvl573 Cr eat 0.7 mg/dL 06/16/2016 Comp Metabolic Xce535 eG FR 91 ml/min/1.73m2 06/16 Comp Metabolic Kks081 BUN 15 mg/dL 06/16/2016 Comp Metabolic Sbg296 B/ C Ratio 22.4 Ratio 06/16/2016 Comp Metabolic Gsc165 CA LCIUM 8.8 mg/dL 06/16/2016 Comp Metabolic Wgo533 AL K PHOS 79 U/L 06/16/2016 Comp Metabolic Mha244 T(SGOT) 13 U/L 06/16/2016 Comp Metabolic Cqd871 AL T(SGPT) 11 U/L 06/16/2016 Comp Metabolic Ozd222 BI LI T 0.5 mg/dL 06/16/2016 Comp Metabolic Nil671 AL BUMIN 3.9 g/dL 06/16/2016 Comp Metabolic Qkk367 TP RO 6.1 g/dL 06/16/2016 Comp Metabolic Kvg943 GL OB 2.2 g/dL 06/16/2016 Comp Metabolic Gos711 A/ G Ratio 1.8 Ratio 06/16/2016 Comp Metabolic Xih646 Os mo 278 mOsmo 06/16/2016 Lipid Ord30 [...] 28.9 pg 06/16/2016 Cbc With Differential Ord2 Pope% 8.1 % 06/16/2016 Cbc With Differential Ord2 [...] 1.70 K/ul 06/16/2016 Cbc With Differential Ord2 Pope ABS# 0.4 K/ul 06/16/2016 Cbc With Differential Ord2 Eos ABS# 0.2 K/ul 06/16/2016 Cbc With Differential Ord2 Baso ABS# 0.0 K/ul 06/16/2016 Free T4 Arv060 FREE T4 1.42 ng/dL 06/16/2016 Free T4 Mjk711 FREE T4 1.34 ng/dL 03/04/2016 Tsh Ord6 hTSH II 0.56 uIU/mL 03/04/2016 Tsh Ord6 hTSH II 0.98 uIU/mL 01/27/2016 Free T4 Vfl296 FREE T4 1.19 ng/dL 01/27/2016 Free T4 Hwh127 FREE T4 1.69 ng/dL 11/23/2015 Tsh Ord6 hTSH II 0.08 uIU/mL 11/23/2015 Lipid Ord30 CHOL 185 mg/dL 08/21/2015 Lipid Ord30 HDL 50.0 mg/dl 08/21/2015 Lipid Ord30 TRIG 88 mg/dL 08/21/2015 Lipid Ord30 LDL 117 mg/dL 08/21/2015 Lipid Ord30 C/HDL 3.7 Ratio 08/21/2015 Comp Metabolic Pks467 NA 139 mEq/L 08/21/2015 Comp Metabolic Cnv828 K 4.3 mEq/L 08/21/2015 Comp Metabolic Jho410 CL 102 mEq/L 08/21/2015 Comp Metabolic Bru389 CO2 27.0 mEq/L 08/21/2015 Comp Metabolic Gms513 AN ION GAP 14 08/21/2015 Comp Metabolic Hiq569 GL UCOSE 89 mg/dL 08/21/2015 Comp Metabolic Tns175 Cr eat 0.7 mg/dL 08/21/2015 Comp Metabolic Aai534 eG FR 85 ml/min/1.73m2 08/21 Comp Metabolic Qvg266 BUN 14 mg/dL 08/21/2015 Comp Metabolic Alu556 B/ C Ratio 19.7 Ratio 08/21/2015 Comp Metabolic Dcv355 CA LCIUM 9.5 mg/dL 08/21/2015 Comp Metabolic Syw284 AL K PHOS 123 U/L 08/21/2015 Comp Metabolic Dal500 T(SGOT) 13 U/L 08/21/2015 Comp Metabolic Rbf486 AL T(SGPT) 10 U/L 08/21/2015 Comp Metabolic Ofu415 BI LI T 0.4 mg/dL 08/21/2015 Comp Metabolic Xwv898 AL BUMIN 4.1 g/dL 08/21/2015 Comp Metabolic Ndv559 TP RO 6.8 g/dL 08/21/2015 Comp Metabolic Kqt019 GL OB 2.7 g/dL 08/21/2015 Comp Metabolic Bjy908 A/ G Ratio 1.5 Ratio 08/21/2015 Comp Metabolic Vxf767 Os mo 277 mOsmo 08/21/2015 Free T4 Xhf180 FREE T4 1.78 ng/dL 08/21/2015 Tsh Ord6 [...] Ord2 RDW 13.9 % 08/21/2015 Quick Strep Jkq7622 Quic k Strep Negative 07/08/2015 Tsh Ord6 hTSH II 0.04 uIU/mL 05/20/2015 Free T4 Gkf768 FREE T4 1.50 ng/dL 05/20/2015 Review of [...] Procedure Codes Date DESTRUCT PREMALG LESION CPT-4: 30188 01/19/2018 URINALYSIS NONAUTO W /O SCOPE CPT-4: 96433 09/12/2017 TRIAMCINOLONE ACET I [place] NOS CPT-4: J3301 06/14/2017 THER/PROPH/DIAG INJ SC/IM CPT-4: 09713 06/14/2017 PRESCRIP TRANSMIT A ERX SY CPT-4: G8553 06/14/2017 TRIAMCINOLONE ACET I [place] NOS CPT-4: J3301 03/27/2017 THER/PROPH/DIAG INJ SC/IM CPT-4: 30044 12/07/2016 TRIAMCINOLONE ACET I [place] NOS CPT-4: J3301 12/07/2016 THER/PROPH/DIAG INJ SC/IM CPT-4: 44090 11/28/2016 TRIAMCINOLONE ACET I [place] NOS CPT-4: J3301 11/28/2016 Vital Signs Date Vital 06/28/2018 Blood Pressure 1: 110/66 Code: 8480-6 BMI: 37.1 Code: 82082-0 Heart Rate 1: 73 bpm Height: 5'6" SpO2: 98% Weight: 230 lbs 04/04/2018 Blood Pressure 1: 128/76 Code: 8480-6 BMI: 37.9 Code: 95079-9 Heart Rate 1: 86 bpm Height: 5'6" SpO2: 98% Weight: 235 lbs 01/19/2018 Blood Pressure 1: 122/68 Code: 8480-6 Heart Rate 1: 78 bpm Height: 5'6" SpO2: 97% Weight: 01/05/2018 Blood Pressure 1: 138/78 Code: 8480-6 BMI: 38.4 Code: 10022-9 Heart Rate 1: 73 bpm Height: 5'6" SpO2: 95% Weight: 238 lbs 11/29/2017 Blood Pressure 1: 138/80 Code: 8480-6 BMI: 38.7 Code: 93003-5 Heart Rate 1: 71 bpm Height: 5'6" SpO2: 97% Weight: 240 lbs 10/25/2017 Blood Pressure 1: 136/72 Code: 8480-6 BMI: 38.7 Code: 36670-5 Heart Rate 1: 92 bpm Height: 5'6" SpO2: 98% Weight: 240 lbs 09/12/2017 Blood Pressure 1: 132/68 Code: 8480-6 BMI: 39.7 Code: 69228-5 Heart Rate 1: 76 bpm Height: 5'6" SpO2: 98% Weight: 246 lbs 06/14/2017 Blood Pressure 1: 130/80 Code: 8480-6 BMI: 39.4 Code: 38865-7 Heart Rate 1: 73 bpm Height: 5'6" SpO2: 95% Temperature: 36.9 (C ) / 98.5 (F) Weight: 244 lbs 05/10/2017 Blood Pressure 1: 128/68 Code: 8480-6 BMI: 38.7 Code: 84765-6 Heart Rate 1: 69 bpm Height: 5'6" SpO2: 97% Weight: 240 lbs 04/19/2017 Blood Pressure 1: 138/74 Code: 8480-6 BMI: 38.7 Code: 42778-4 Heart Rate 1: 73 bpm Height: 5'6" SpO2: 96% Weight: 240 lbs 03/27/2017 Blood Pressure 1: 142/84 Code: 8480-6 BMI: 38.7 Code: 49071-0 Heart Rate 1: 69 bpm Height: 5'6" SpO2: 97% Weight: 240 lbs 01/26/2017 Blood Pressure 1: 136/68 Code: 8480-6 Heart Rate 1: 64 bpm Height: 5'6" SpO2: 96% Weight: 12/07/2016 Blood Pressure 1: 130/72 Code: 8480-6 BMI: 39.7 Code: 96411-1 Heart Rate 1: 73 bpm Height: 5'6" SpO2: 93% Temperature: 36.8 (C ) / 98.3 (F) Weight: 246 lbs 11/28/2016 Blood Pressure 1: 138/60 Code: 8480-6 BMI: 39.7 Code: 91581-7 Heart Rate 1: 81 bpm Height: 5'6" SpO2: 97% Weight: 246 lbs 11/15/2016 Blood Pressure 1: 134/78 Code: 8480-6 BMI: 39.7 Code: 46661-1 Heart Rate 1: 75 bpm Height: 5'6" SpO2: 93% Temperature: 36.8 (C ) / 98.2 (F) Weight: 246 lbs 10/17/2016 Blood Pressure 1: 120/64 Code: 8480-6 BMI: 38.4 Code: 71134-4 Heart Rate 1: 69 bpm Height: 5'6" SpO2: 98% Temperature: 37.2 (C ) / 98.9 (F) Weight: 238 lbs 09/28/2016 Blood Pressure 1: 158/76 Code: 8480-6 BMI: 39.4 Code: 84988-2 Heart Rate 1: 71 bpm Height: 5'6" SpO2: 97% Weight: 244 lbs 06/29/2016 Blood Pressure 1: 124/60 Code: 8480-6 BMI: 38.7 Code: 60374-1 Heart Rate 1: 71 bpm Height: 5'6" SpO2: 98% Weight: 240 lbs 06/01/2016 Blood Pressure 1: 120/62 Code: 8480-6 BMI: 38.6 Code: 72312-3 Heart Rate 1: 76 bpm Height: 5'6" SpO2: 98% Weight: 239 lbs 05/11/2016 Blood Pressure 1: 140/80 Code: 8480-6 BMI: 38.1 Code: 66495-7 Heart Rate 1: 88 bpm Height: 5'6" SpO2: 97% Weight: 236 lbs 04/05/2016 Blood Pressure 1: 142/80 Code: 8480-6 BMI: 38.4 Code: 93817-7 Heart Rate 1: 96 bpm Height: 5'6" SpO2: 98% Weight: 238 lbs 04/01/2016 Blood Pressure 1: 136/88 Code: 8480-6 BMI: 39.2 Code: 87994-9 Heart Rate 1: 86 bpm Height: 5'6" SpO2: 96% Weight: 243 lbs 01/26/2016 Blood Pressure 1: 124/76 Code: 8480-6 BMI: 39.2 Code: 62958-4 Heart Rate 1: 76 bpm Height: 5'6" SpO2: 97% Weight: 243 lbs 12/21/2015 Blood Pressure 1: 120/64 Code: 8480-6 BMI: 37.0 Code: 93389-8 Heart Rate 1: 98 bpm Height: 5'6" SpO2: 97% Weight: 229 lbs 10/12/2015 Blood Pressure 1: 150/64 Code: 8480-6 BMI: 37.4 Code: 35106-2 Heart Rate 1: 70 bpm Height: 5'6" SpO2: 94% Weight: 232 lbs 08/24/2015 Blood Pressure 1: 128/74 Code: 8480-6 BMI: 36.8 Code: 18732-2 Heart Rate 1: 88 bpm Height: 5'6" SpO2: 94% Temperature: 36.8 (C ) / 98.3 (F) Weight: 228 lbs 06/01/2015 Blood Pressure 1: 134/68 Code: 8480-6 BMI: 36.0 Code: 42764-6 Heart Rate 1: 70 bpm Height: 5'6" SpO2: 98% Weight: 223 lbs 05/21/2015 Blood Pressure 1: 126/72 Code: 8480-6 BMI: 35.2 Code: 79071-4 Heart Rate 1: 63 bpm Height: 5'6" SpO2: 95% Weight: 218 lbs 5 oz 03/26/2015 Blood Pressure 1: 140/62 Code: 8480-6 BMI: 35.3 Code: 19850-1 Heart Rate 1: 68 bpm Height: 5'6" Weight: 219 lbs 03/11/2015 Blood Pressure 1: 130/80 Code: 8480-6 BMI: 34.9 Code: 08818-8 Heart Rate 1: 76 bpm Height: 5'6" Temperature: 37.1 (C ) / 98.7 (F) Weight: 216 lbs 12/11/2014 Blood Pressure 1: 134/62 Code: 8480-6 BMI: 34.2 Code: 25451-9 Heart Rate 1: 72 bpm Height: 5'6" Weight: 212 lbs 09/18/2014 Blood Pressure 1: 148/80 Code: 8480-6 BMI: 34.7 Code: 29703-3 Heart Rate 1: 68 bpm Height: 5'6" Weight: 215 lbs 07/31/2014 Blood Pressure 1: 124/72 Code: 8480-6 BMI: 36.2 Code: 41446-5 Heart Rate 1: 68 bpm Height: 5'6" [...] Severity mi ld 09/28/2016 None 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 09/28/2016 None hypothyroid Onset and Resolution [...] Severity mi ld 06/01/2016 None 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 06/01/2016 None hypothyroid Onset and Resolution [...] and Resolution resolved 04/05/2016 None 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 P ATIENT, LEVEL III Diagnosis: Acute recurrent maxillary sinusitis[ICD10: J01.01] Diagnosis: Other mucopurulent conjunctivitis, left eye[ICD10: H10.022] Diagnosis: Other allergic rhinitis[ICD10: J30.89] [facility] CPT-4: 15876 06/28/2018 67941 EST. PATIENT, LEVEL IV Diagnosis: Essential (primary) hypertension[ICD10: I10] Diagnosis: Other specified hypothyroidism[ICD10: E03.8] Diagnosis: Other specified anemias[ICD10: D64.89] Diagnosis: Localized edema[ICD10: R60.0] [facility] CPT-4: 46723 04/04/2018 ([id number]) 24118 EST. P ATIENT, LEVEL III Diagnosis: Mild persistent asthma, uncomplicated[ICD10: J45.30] Diagnosis: Actinic keratosis[ICD10: L57.0] Lynn Finn MD, [facility] CPT- 4: 06181 01/05/2018 ([id number]) Miscellaneou s no charge Diagnosis: Essential (primary) hypertension[ICD10: I10] Damari Finn MD, [facility] CPT-4: 08694 12/12/2017 10788 EST. PATIENT, LEVEL III Diagnosis: Essential (primary) hypertension[ICD10: I10] Diagnosis: Atrophy of thyroid (acquired)[ICD10: E03.4] Diagnosis: Low back pain[ICD10: M54.5] Mishel Finn MD, [facility] CPT-4: 79024 11/29/2017 98281 EST. PATIENT, LEVEL III Diagnosis: Pain in left hip[ICD10: M25.552] Mishel Finn MD, [facility] CPT-4: 91326 10/25/2017 96677 EST. PATIENT, LEVEL IV Diagnosis: Localized edema[ICD10: R60.0] Mishel Finn MD, [facility] CPT-4: 79960 09/12/2017 20137 EST. PATIENT, LEVEL IV Diagnosis: Mild persistent asthma with (acute) exacerbation[ICD10: J45.31] Mishel Finn MD, [facility] CPT-4: 54468 06/14/2017 17829 EST. PATIENT, LEVEL III Diagnosis: Localized edema[ICD10: R60.0] Diagnosis: Mild persistent asthma, uncomplicated[ICD10: J45.30] Mishel Finn MD, [facility] CPT-4: 62186 05/10/2017 87773 EST. PATIENT, LEVEL III Diagnosis: Mild persistent asthma with (acute) exacerbation[ICD10: J45.31] Mishel Finn MD, [facility] CPT-4: 41299 04/19/2017 ([id number]) 95168 EST. P ATIENT, LEVEL IV Diagnosis: Contusion of left wrist, initial encounter[ICD10: S60.212A] Diagnosis: Hypothyroidism, unspecified[ICD10: E03.9] Diagnosis: Mild persistent asthma with (acute) exacerbation[ICD10: J45.31] Diagnosis: Low back pain[ICD10: M54.5] Lynn Finn MD, [facility] CPT- 4: 22056 03/27/2017 ([id number]) 34796 EST. P ATIENT, LEVEL IV Diagnosis: Essential (primary) hypertension[ICD10: I10] Diagnosis: Atrophy of thyroid (acquired)[ICD10: E03.4] Diagnosis: Low back pain[ICD10: M54.5] Damari Finn MD, [facility] CPT-4: 82842 01/26/2017 26122 EST. PATIENT, LEVEL III Diagnosis: Other allergic rhinitis[ICD10: J30.89] Diagnosis: Mild persistent asthma with (acute) exacerbation[ICD10: J45.31] Mishel Finn MD, [facility] CPT-4: 31856 12/07/2016 30226 EST. PATIENT, LEVEL III Diagnosis: Mild persistent asthma with (acute) exacerbation[ICD10: J45.31] Mishel Finn MD, [facility] CPT-4: 72066 11/28/2016 91045 EST. PATIENT, LEVEL III Diagnosis: Mild persistent asthma with (acute) exacerbation[ICD10: J45.31] Diagnosis: Acute bronchitis due to other specified organisms[ICD10: J20.8] Mishel Finn MD, [facility] CPT-4: 74616 11/15/2016 56711 EST. PATIENT, LEVEL IV Diagnosis: Other acute sinusitis[ICD10: J01.80] Diagnosis: Other allergic rhinitis[ICD10: J30.89] Diagnosis: Mild persistent asthma with (acute) exacerbation[ICD10: J45.31] Mishel Finn MD, [facility] CPT-4: 35417 10/17/2016 ([id number]) 58634 EST. P ATIENT, LEVEL IV Diagnosis: Essential (primary) hypertension[ICD10: I10] Diagnosis: Low back pain[ICD10: M54.5] Damari Finn MD, [facility] CPT-4: 92206 09/28/2016 46277 EST. PATIENT, LEVEL III Diagnosis: Tinea barbae and tinea capitis[ICD10: B35.0] Diagnosis: Other specified hypothyroidism[ICD10: E03.8] Mishel Finn MD, [facility] CPT-4: 57469 06/29/2016 ([id number]) 12476 EST. P ATIENT, LEVEL IV Diagnosis: Essential (primary) hypertension[ICD10: I10] Diagnosis: Atrophy of thyroid (acquired)[ICD10: E03.4] Diagnosis: Rash and other nonspecific skin eruption[ICD10: R21] Damari Finn MD, [facility] CPT-4: 88606 06/01/2016 ([id number]) 62535 EST. P ATIENT, LEVEL III Diagnosis: Cellulitis of groin[ICD10: L03.314] Damari Finn MD, [facility] CPT- 4: 33588 05/11/2016 ([id number]) 13909 EST. P ATIENT, LEVEL IV Diagnosis: Hypothyroidism, unspecified[ICD10: E03.9] Diagnosis: Candidiasis of vulva and vagina[ICD10: B37.3] Diagnosis: Essential (primary) hypertension[ICD10: I10] Diagnosis: Low back pain[ICD10: M54.5] Lynn Finn MD, [facility] CPT- 4: 03903 04/05/2016 31332 EST. PATIENT, LEVEL III Diagnosis: Other acute sinusitis[ICD10: J01.80] Diagnosis: Rash and other nonspecific skin eruption[ICD10: R21] Mishel Finn MD, [facility] CPT-4: 44106 04/01/2016 ([id number]) 17377 EST. P ATIENT, LEVEL IV Diagnosis: Essential (primary) hypertension[ICD10: I10] Diagnosis: Hypothyroidism, unspecified[ICD10: E03.9] Diagnosis: Low back pain[ICD10: M54.5] Diagnosis: Other obesity due to excess calories[ICD10: E66.09] Lynn Finn MD, [facility] CPT-4: 06305 01/26/2016 68151 EST. PATIENT, LEVEL IV Diagnosis: Essential (primary) hypertension[ICD10: I10] Diagnosis: Cutaneous abscess of face[ICD10: L02.01] Mishel Finn MD, [facility] CPT-4: 63871 12/21/2015 ([id number]) 68841 EST. P ATIENT, LEVEL III Diagnosis: Cutaneous abscess of groin[ICD10: L02.214] Diagnosis: Hypothyroidism, unspecified[ICD10: E03.9] Lynn Finn MD, [facility] CPT-4: 31715 10/12/2015 ([id number]) 47240 EST. P ATIENT, LEVEL III Diagnosis: Essential (primary) hypertension[ICD10: I10] Diagnosis: Hypothyroidism, unspecified[ICD10: E03.9] Diagnosis: Allergic rhinitis, unspecified[ICD10: J30.9] Lynn Finn MD, [facility] CPT-4: 54367 08/24/2015 ([id number]) 96888 EST. P ATIENT, LEVEL III Diagnosis: Skin infection[ICD9: 686.9] Damari Finn MD, [facility] CPT-4: 28636 06/01/2015 ([id number]) 31169 EST. P ATIENT, LEVEL III Diagnosis: Hypothyroidism[ICD9: 244.9] Diagnosis: ESSENTIAL HYPERTENSION[ICD9: 401.9] Damari Finn MD, [facility] CPT- 4: 67035 05/21/2015 ([id number]) 08483 EST. P ATIENT, LEVEL III Diagnosis: Hypothyroidism[ICD9: 244.9] Diagnosis: Fingernail abnormalities[ICD9: 703.8] Lynn Finn MD, [facility] CPT-4: 06710 03/26/2015 ([id number]) 34582 EST. P ATIENT, LEVEL II Diagnosis: Hypothyroidism[ICD9: 244.9] Maritza Finn MD, [facility] CPT-4: 31368 03/11/2015 ([id number]) 71349 EST. P ATIENT, LEVEL IV Diagnosis: ESSENTIAL HYPERTENSION[ICD9: 401.9] Diagnosis: Low back pain[ICD9: 724.2] Diagnosis: Hypothyroidism[ICD9: 244.9] Damari Finn MD, [facility] CPT-4: 35635 12/11/2014 ([id number]) 78709 EST. P ATIENT, LEVEL IV Diagnosis: Hidradenitis suppurativa[ICD9: 705.83] Diagnosis: ESSENTIAL HYPERTENSION[ICD9: 401.9] Diagnosis: Low back pain[ICD9: 724.2] Diagnosis: Lumbar spinal stenosis[ICD9: 724.02] Diagnosis: HYPOTHYROIDISM[ICD9: 244.9] [facility] CPT-4: 85754 09/18/2014 Office outpatient ne w 30 minutes Diagnosis: ESSENTIAL HYPERTENSION[ICD9: 401.9] Diagnosis: Hypothyroidism[ICD9: 244.9] Diagnosis: Low back pain[ICD9: 724.2] [facility] CPT- 4: 74842 07/31/2014 Plan of Care Planned Activity Notes C odes Status Date Patient Education: Patient Medication Summary Completed 10/23/2018 Care Plan: Cbc With Differential Pending 10/23/2018 Care Plan: Comp Metabolic Pending 10/23/2018 Care Plan: Tsh Pending 10/23/2018 Care Plan: Lipid Pending 10/23/2018 Care Plan: Free T4 Pending 10/23/2018 Appointment: Lynn Arenas WPtel: [phone] [phone] (15 min) Moderate 10/19/2018 Appointment: Damari Finn WPtel: [phone] [phone] [place] (15 min) Moderate 09/19/2018 Visit [...] daily. 06/28/2018 App[facility]ment: [phone] (30 min) Complex 06/28/2018 Patient Education: Patient [...] monitor. 04/04/2018 Appointment: Mishel Balderrama WPtel: [phone] [facility] (15 min) Moderate 04/04/2018 Patient Education: Patient Medication Summary Completed 04/04/2018 Visit Plan: Wound Instructions - Pt was instructed to keep the wound clean, wash with antibacterial soap, use triple antibiotic ointment, call if redness, pustular drainage, or any other acute concerns. 01/19/2018 Appointment: Lynn Arenas WPtel: [phone] (30 min) Complex 01/19/2018 Patient Education: [...] acute concerns. 01/05/2018 Appointment: Lynn Arenas WPtel: [facility]5 [phone] (30 min) Complex 01/05/2018 Patient Education: [...] not improve. 11/29/2017 Appointment: Mishel Balderrama [facility]Ptel: [phone] [place] (30 min) Complex 11/29/2017 Patient Education: [...] not improve. 10/25/2017 Appointment: Mishel Balderrama WPtel: [facility]0 [facility] [place] (30 min) Complex 10/25/2017 Patient [...] peripheral edema. 09/12/2017 Appointment: Mishel Balderrama WPtel: [facility] [place] (30 min) Complex 09/12/2017 Patient Education: Patient Medication Summary Completed 09/12/2017 Appointment: Lynn Arenas WPtel: [facility]3 [phone] [place] (30 min) Complex 06/27/2017 Visit [...] [phone] [place] (15 min) Moderate 06/14/2017 Patient Education: [...] acute changes 05/10/2017 Appointment: Mishel Balderrama [facility]Ptel: [phone] [place] (15 min) Moderate 05/10/2017 Patient Education: [...] [phone] (15 min) Moderate 04/19/2017 Patient Education: Patient [...] on previous levels of control. Low back gcdy-ctegwhc-rvddvd tramadol for prn use 03/27/2017 Appointment: Lynn [facility]renas [facility]Ptel[phone] (30 min) Complex 03/27/2017 Patient Education: Patient [...] improve. 01/26/2017 [phone] ([facility] Moderate 01/26/2017 Patient Education: [...] concerns. 12/07/2016 Appointment: Mishel Balderrama [facility]Ptel: [phone] (15 min) Moderate 12/07/2016 Patient Education: Patient [...] wheezing/asthma symptoms. 11/28/2016 Appointment: Mishel Balderrama WPtel: [phone] [facility] (15 min) Moderate 11/28/2016 Patient Education: Patient Medication Summary Completed 11/28/2016 Appointment: Mishel Balderrama WPtel: [phone] [facility] (15 min) Moderate 11/24/2016 Visit Plan: [...] changes. 11/15/2016 Appointment: Mishel Balderrama WPtel: [phone] [facility] (30 min) Complex 11/15/2016 Patient Education: [...] changes. 10/17/2016 Appointment: Mishel Balderrama WPtel: [phone] [facility] (30 min) Complex 10/17/2016 Patient Education: [...] tylenol 09/28/2016 Appointment: Dam[facility]el[phone] (15 min) Moderate 09/28/2016 Patient Education: [...] control. 06/29/2016 Appointment: Lynn Arenas WPtel: [phone] [facility] (15 min) Moderate 06/29/2016 Patient Education: [...] for fluconazole 06/01/2016 Appointment: Damari Finn WPtel: [facility]5 [facility] (15 min) Moderate 06/01/2016 Patient Education: Patient Medication Summary Completed 06/01/2016 Patient Education: Obesity Completed 06/01/2016 Visit Plan: Cellulitis - continue w ith oral antibiotics as previously directed, return to clinic as previously directed, call for acute change in symptoms, worsening redness, warmth, discharge. 05/11/2016 Appointment: Damari Finn WPtel: [facility]9 [facility] (15 min) Moderate 05/11/2016 Patient Education: [...] any concerns. 04/01/2016 Appointment: Lynn Arenas WPtel: [facility] [address] (30 min) Complex 04/01/2016 Patient Education: Patient Medication Summary Completed 04/01/2016 Patient Education: Obesity Completed 04/01/2016 Appointment: Lynn Arenas WPtel: [address] [place] [phone] (30 min) Complex 03/29/2016 Visit Plan: Hypertension [...] levels of control. Low back pain-refill tramadol Epwbd-xqiirmoawu-enptijpm resolved 01/26/2016 Appointment: Lynn Arenas WPtel: [address] [place], [place] [phone] (30 min) Complex 01/26/2016 Patient Education: Patient Medication Summary Completed 01/26/2016 Patient Education: Obesity Completed 01/26/2016 Care Plan: BMI Above normal followup RADHA F-MGMT EDUC & TRAIN 1 PT Pending 01/26/2016 Care Plan: Referral Order SNOMED-CT : [id number] Pending 01/07/2016 Appointment: ArenasLynn WPtel: [address] [place], [place] [phone] (15 min) Moderate 12/24/2015 Visit Plan: Hypertension [...] nor improving. 06/01/2015 Appointment: Damari Finn WPtel: [address] [place], [place] [address] (15 min) Moderate 06/01/2015 Patient Education: Patient [...] refill tramadol 12/11/2014 Appointment: Damari Finn WPtel: [facility] follow up 12/11/2014 Patient Education: Patient Medication Summary Completed 12/11/2014 Patient Education: Hypertension Completed 12/11/2014 Appointment: Damari Finn WPtel: [facility] follow up 11/27/2014 Visit Plan: Hidradenitis [...] to get her back MRI done at [facility] in [place] as that is where her specialist will be once we get her an appt with one of the local Neurosurgeons. 09/18/2014 Appointment: SchlaterJatindery WPtel[phone] Follow up 09/18/2014 Patient Education: Patient [...] [facility]el[phone] New Patient 07/31/2014 Patient Education: Patient [...] levels of control. Low back pain-refill tramadol Muoea-rcmgcdtsou-zhigheet resolved bactroban ointment t o sore twice [...] . Asthma Exacerbation - Asthma is a facility maintenance helper jamee problem for this patient, however, the [...] . Asthma Exacerbation - Asthma is a facility maintenance helper jamee problem for this patient, however, the [...] Chronic back pain - refill tramadol . Asthma Exacerbatio n - Asthma is [...] . Asthma Exacerbation - Asthma is a facility maintenance helper jamee problem for this patient, however, the [...] on previous levels of control. Low back sdoz-dcohqir-pbnhlq tramadol for prn use Steroid shot today breathing treatments 3 times [...] medications. Back pain - prn tylenol . Edema - pt has bee n advised to elevate legs to prevent dependent edema, compression has been recommended to help to naturally decrease peripheral edema. Diuretic use has been discussed and pt has been instructed in appropriate use of such medication as necessary to further attempt to reduce peripheral edema. restart lisinopril/h CTZ - this will help [...] control. Anemia - will continue to monitor. Declined Procedure: (84145) FLU VAC NO PRSV 4 JUSTYNA 3 YRS+; Declined Reason: refused Physical therapy at [facility] . Hypertension - well [...] up with Dr Lincoln as scheduled . Sinusitis - Pt has acute infection [...] based on previous levels of control. . Wound Instructions - Pt was instructed [...] patient is stable, monitor for acute changes hidradenitis suppura tiva USE ANTIBACTERIAL SOAP ASTRINGENT [...] to get her back MRI done at [facility] in [place] as that is where her specialist will be once we get her an appt with one of the local Neurosurgeons. will extend your pre dnisone. Increase the [...] patient is stable, monitor for acute changes. increase synthroid t o 200 mcg . [...] medication into affected eye four times daily. Symbicort twice sim y Neosporin twice daily [...] of control. Rahs - rx for fluconazole . Edema - pt has bee n advised to elevate legs to prevent dependent edema, compression has been recommended to help to naturally decrease peripheral edema. Diuretic use has been discussed and pt has been instructed in appropriate use of such medication as necessary to further attempt to reduce peripheral edema. . Brittle fingernail s-erythema of fingernails-nail sample clipped and sent for culture-suspect changes are due to thyroid illness-repeat thyroid labs in 6-8 weeks CORICIDIN HBP . Hypertension - well controlled [...]
--- OUTSIDE RECORDS SUMMARY | 2020-02-20 19:35 | XMS REPORT | CCD ---
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 Unknown Has never used illegal drugs 014 Allergies, Adverse Reactions, Alerts Substance Reaction Codes Entered Date Inactivated Date Status * NO KNOWN FOOD BEVERLY RGIES Unknown 07/31/2014 No Inactive Date Active bactrim hives, rash RxNorm: 559298 04/05/2016 No Inactive Date Active Past Medical [...] Instructions levothyroxine 125 mc g tablet RxNorm: 040910 1 Tablet(s) PO daily TAKE ONE TABLET BY MOUTH DAILY ON AN EMPTY STOMACH 09/06/2018 11/29/2019 Active lorazepam 1 mg tablet RxNorm: 668375 Tablet(s) TAKE TWO TABLETS BY MOUTH AT B EDTIME NEEDED FOR INSOMNIA AND ONE TABLET DAILY NEEDED ANXIETY 09/06/2018 11/04/2018 Active tramadol 50 mg tablet RxNorm: 889713 1 Tablet(s) PO Q4 PRN as needed for pain 09/06/2018 10/15/2018 In active tramadol 50 mg tablet RxNorm: 207527 1 Tablet(s) PO Q4 PRN as needed for pain 07/06/2018 08/14/2018 In active ciprofloxacin 0.3 % eye drops RxNorm: 299320 2 Drop(s) ophthalmic (eye) TID 06/28/2018 07/07/2018 In active lorazepam 1 mg tablet RxNorm: 995840 Tablet(s) TAKE TWO TABLETS BY MOUTH AT B EDTIME NEEDED FOR INSOMNIA AND ONE TABLET DAILY NEEDED ANXIETY 06/28/2018 08/26/2018 Inactive doxycycline hyclate 100 mg tablet RxNorm: 9100943 1 Tablet(s) PO BID 06/28/2018 07/04/2018 Inactive tramadol 50 mg tablet RxNorm: 323898 1 Tablet(s) PO Q4 PRN as needed for pain 06/13/2018 07/05/2018 In active lorazepam 1 mg tablet RxNorm: 789249 Tablet(s) TAKE TWO TABLETS BY MOUTH AT B EDTIME NEEDED FOR INSOMNIA AND ONE TABLET DAILY NEEDED ANXIETY 05/23/2018 06/27/2018 Inactive tramadol 50 mg tablet RxNorm: 165884 1 Tablet(s) PO Q4 PRN as needed for pain 05/23/2018 06/12/2018 In active levothyroxine 125 mc g tablet RxNorm: 003618 Tablet(s) TAKE ONE TA BLET BY MOUTH DAILY ON AN EMPTY STOMACH 05/23/2018 09/05/2018 Inactive tramadol 50 mg tablet RxNorm: 489811 1 Tablet(s) PO Q4 PRN as needed for pain 05/17/2018 05/22/2018 In active levothyroxine 125 mc g tablet RxNorm: 033385 TAKE ONE TABLET BY [facility] DAILY 05/15/2018 06/27/2018 In active levothyroxine 125 mc g tablet RxNorm: 829399 TAKE ONE TABLET BY [facility] DAILY 05/15/2018 06/27/2018 In active tramadol 50 mg tablet RxNorm: 108318 1 Tablet(s) PO Q4 PRN as needed for pain 04/30/2018 05/16/2018 In active Advair Diskus 100 mc g-50 mcg/dose powder for inhalation RxNorm: 5058616 1 Puff(s) INH BID 04/06/2018 No Stop Date Active Symbicort 80 mcg-4.5 mcg/actuation HFA aerosol inhaler RxNorm: 9040291 2 Puff(s) INH BID 04/06/2018 No Stop Date Active Advair Diskus 250 mc g-50 mcg/dose powder for inhalation RxNorm: 5738415 1 Puff(s) INH BID 04/05/2018 09/01/2018 Inactive lisinopril 20 mg-hyd rochlorothiazide 25 mg tablet RxNorm: 404289 Tablet(s) TAKE ONE TABLET BY MOUTH DAILY 04/05/2018 09/01/2018 Inactive Zyrtec 10 mg tablet RxNorm: 4966396 1 Tablet(s) PO daily x1 week then PRN 04/05/2018 08/02/2018 In active Zyrtec 10 mg tablet RxNorm: 9563722 1 Tablet(s) PO daily 04/04/2018 05/03/2018 Inactive tramadol 50 mg tablet RxNorm: 466053 1 Tablet(s) PO Q4 PRN as needed for pain 03/13/2018 04/21/2018 In active lorazepam 1 mg tablet RxNorm: 189146 Tablet(s) TAKE TWO TABLETS BY MOUTH AT B EDTIME NEEDED FOR INSOMNIA AND ONE TABLET DAILY NEEDED ANXIETY 03/02/2018 04/30/2018 Inactive levothyroxine 125 mc g tablet RxNorm: 123987 1 Tablet(s) PO daily 02/06/2018 05/06/2018 Inactive levothyroxine 125 mc g tablet RxNorm: 116088 TAKE ONE TABLET BY [facility] DAILY ON AN EMPTY STOMACH 02/06/2018 05/22/2018 Inactive tramadol 50 mg tablet RxNorm: 807821 1 Tablet(s) PO Q4 PRN as needed for pain 01/26/2018 03/06/2018 In active lorazepam 1 mg tablet RxNorm: 390528 Tablet(s) TAKE TWO TABLETS BY MOUTH AT B EDTIME NEEDED FOR INSOMNIA AND ONE TABLET DAILY NEEDED ANXIETY 01/23/2018 06/27/2018 Inactive Symbicort 80 mcg-4.5 mcg/actuation HFA aerosol inhaler RxNorm: 8404029 INH 01/05/2018 06/27/2018 In active tramadol 50 mg tablet RxNorm: 868095 1 Tablet(s) PO Q4 PRN as needed for pain 01/04/2018 01/25/2018 In active Advair Diskus 250 mc g-50 mcg/dose powder for inhalation RxNorm: 1285265 1 Puff(s) INH BID 11/29/2017 03/28/2018 Inactive hydrochlorothiazide 12.5 mg tablet RxNorm: 641634 1 Tablet(s) PO daily 11/29/2017 12/28/2017 In active tramadol 50 mg tablet RxNorm: 464214 1 Tablet(s) PO Q4 PRN as needed for pain 11/23/2017 01/01/2018 In active tramadol 50 mg tablet RxNorm: 785970 1 Tablet(s) PO Q4 PRN as needed for pain 10/06/2017 11/14/2017 In active lorazepam 1 mg tablet RxNorm: 147433 Tablet(s) TAKE TWO TABLETS BY MOUTH AT B EDTIME NEEDED FOR INSOMNIA AND ONE TABLET DAILY NEEDED ANXIETY 09/12/2017 06/27/2018 Inactive tramadol 50 mg tablet RxNorm: 783771 1 Tablet(s) PO Q4 PRN as needed for pain 09/12/2017 10/05/2017 In active tramadol 50 mg tablet RxNorm: 030146 1 Tablet(s) PO Q4 PRN as needed for pain 08/15/2017 09/11/2017 In active tramadol 50 mg tablet RxNorm: 581013 1 Tablet(s) PO Q4 PRN as needed for pain 06/29/2017 08/07/2017 In active ProAir HFA 90 mcg/ac tuation aerosol inhaler RxNorm: 177560 INHALE 1 TO 2 PUFFS F OUR TIMES A DAY NEEDED FOR ASTHMA 06/14/2017 11/10/2017 Inactive prednisone 20 mg tablet RxNorm: 570705 1 Tablet(s) PO BID x 2 days, then 1 pill daily x 3 days, then 1/2 pill every other day x 3 doses. 06/14/2017 09/11/2017 Inactive Kenalog 40 mg/mL madhavi pension for injection RxNorm: 3931239 1 Milliliter(s) Inj 06/14/2017 06/14/2017 In active Zyrtec 10 mg tablet RxNorm: 7171089 1 Tablet(s) PO daily 06/14/2017 07/13/2017 Inactive tramadol 50 mg tablet RxNorm: 758724 1 Tablet(s) PO Q4 PRN as needed for pain 06/08/2017 06/27/2017 In active [SAVINGS FOR UNINSURED PATIENTS -- BIN:0 21351, PCN: ASPROD1, Group: [id number], ID# [id number], Process claim through [employer], for questions: . THIS IS NOT INSURANCE.] tramadol 50 mg tablet RxNorm: 399471 1 Tablet(s) PO Q4 PRN as needed for pain 05/16/2017 06/04/2017 In active [SAVINGS FOR UNINSURED PATIENTS -- BIN:0 08762, PCN: ASPROD1, Group: [id number], ID# [id number], Process claim through [employer], for questions: . THIS IS NOT INSURANCE.] lorazepam 1 mg tablet RxNorm: 809006 Tablet(s) TAKE TWO TABLETS BY MOUTH AT B EDTIME NEEDED FOR INSOMNIA AND ONE TABLET DAILY NEEDED ANXIETY 05/16/2017 08/13/2017 Inactive Lasix 20 mg tablet RxNorm: 425431 1 Tablet(s) PO daily 05/10/2017 05/09/2017 Inactive Lasix 20 mg tablet RxNorm: 233450 1 Tablet(s) PO daily 05/10/2017 05/12/2017 Inactive potassium chloride E R 10 mEq tablet,extended release RxNorm: 494350 1 Tablet(s) PO daily while on the lasix 05/10/2017 05/09/2017 Inactive potassium chloride E R 10 mEq tablet,extended release RxNorm: 547627 1 Tablet(s) PO daily while on the lasix 05/10/2017 05/12/2017 Inactive prednisone 20 mg tablet RxNorm: 475305 1 Tablet(s) PO BID x 2 days, then 1 pill daily x 3 days, then 1/2 pill every other day x 3 doses. 04/19/2017 06/13/2017 Inactive Zithromax Z-Linus 250 mg tablet RxNorm: 129498 1 Tablet(s) PO UD 04/13/2017 06/28/2017 Inactive prednisone 20 mg tablet RxNorm: 052010 1 Tablet(s) PO BID 04/13/2017 04/17/2017 Inactive levothyroxine 125 mc g tablet RxNorm: 241571 1 Tablet(s) PO daily 04/11/2017 10/07/2017 Inactive tramadol 50 mg tablet RxNorm: 858805 1 Tablet(s) PO Q4 PRN as needed for pain 03/27/2017 04/15/2017 In active [SAVINGS FOR UNINSURED PATIENTS -- BIN:0 91729, PCN: ASPROD1, Group: [id number], ID# [id number], Process claim through [employer], for questions: . THIS IS NOT INSURANCE.] Kenalog 40 mg/mL madhavi pension for injection RxNorm: 4359548 1 Milliliter(s) Inj 03/27/2017 03/27/2017 In active tramadol 50 mg tablet RxNorm: 267374 1 Tablet(s) PO Q4H as needed for pain 03/09/2017 03/26/2017 In active [SAVINGS FOR UNINSURED PATIENTS -- BIN:0 34465, PCN: ASPROD1, Group: [id number], ID# [id number], Process claim through [employer], for questions: . THIS IS NOT INSURANCE.] lisinopril 20 mg-hyd rochlorothiazide 25 mg tablet RxNorm: 280412 TAKE ONE TABLET BY MOUTH DAILY 01/29/2017 11/21/2017 Inactive lorazepam 1 mg tablet RxNorm: 496547 Tablet(s) TAKE TWO TABLETS BY MOUTH AT B EDTIME NEEDED FOR INSOMNIA AND ONE TABLET DAILY NEEDED ANXIETY 01/05/2017 04/04/2017 Inactive tramadol 50 mg tablet RxNorm: 718304 1 Tablet(s) PO Q4H as needed for pain 12/07/2016 01/13/2017 In active [SAVINGS FOR UNINSURED PATIENTS -- BIN:0 99814, PCN: ASPROD1, Group: [id number], ID# [id number], Process claim through [employer], for questions: . THIS IS NOT INSURANCE.] Kenalog 40 mg/mL madhavi pension for injection RxNorm: 6228833 Milliliter(s) Inj 12/07/2016 12/07/2016 In active nystatin 100,000 uni t/mL oral suspension RxNorm: 492062 4 Milliliter(s) PO QI D 12/07/2016 12/11/2016 In active Francia-D 12 Hour 60 mg-120 mg tablet,extended release RxNorm: 701024 1 Tablet(s) PO BID 12/07/2016 01/11/2017 Inactive lorazepam 1 mg tablet RxNorm: 563192 Tablet(s) TAKE TWO TABLETS BY MOUTH AT B EDTIME AND ONE TABLET DAILY NEEDED 12/07/2016 01/04/2017 Inactive (Response to an electronic controlled substance refill request - RxReferenceNumber: [id number]) albuterol sulfate 2. 5 mg/3 mL (0.083 %) solution for nebulization RxNorm: 163917 3 Milliliter(s) INH TID 11/29/2016 11/28/2016 Inactive prednisone 10 mg tablet RxNorm: 089537 Tablet(s) PO UD 11/29/2016 12/05/2016 Inactive 6,5,4,3,2,1 doxycycline hyclate 100 mg tablet RxNorm: 565336 1 Tablet(s) PO BID 11/29/2016 12/04/2016 Inactive albuterol sulfate 2. 5 mg/3 mL (0.083 %) solution for nebulization RxNorm: 853394 3 Milliliter(s) INH TID 11/29/2016 12/03/2016 Inactive Kenalog 40 mg/mL madhavi pension for injection RxNorm: 7672523 Milliliter(s) Inj 11/28/2016 11/28/2016 In active tramadol 50 mg tablet RxNorm: 795279 1 Tablet(s) PO Q4H as needed for pain 11/15/2016 12/06/2016 In active [SAVINGS FOR UNINSURED PATIENTS -- BIN:0 20810, PCN: ASPROD1, Group: AME08, ID# [id number], Process claim through [employer], for questions: . THIS IS NOT INSURANCE.] prednisone 20 mg tablet RxNorm: 158839 2 Tablet(s) PO daily 11/15/2016 11/19/2016 Inactive Advair Diskus 100 mc g-50 mcg/dose powder for inhalation RxNorm: 7552820 1 Puff(s) INH BID 11/15/2016 06/11/2017 Inactive ProAir HFA 90 mcg/ac tuation aerosol inhaler RxNorm: 897613 INHALE 1 TO 2 PUFFS F OUR TIMES A DAY NEEDED FOR ASTHMA 11/15/2016 04/13/2017 Inactive Zithromax Z-Linus 250 mg tablet RxNorm: 224632 1 Tablet(s) PO UD 11/15/2016 11/27/2016 Inactive Zyrtec 10 mg tablet RxNorm: 3323838 1 Tablet(s) PO daily 10/17/2016 11/15/2016 Inactive Keflex 500 mg capsule RxNorm: 844066 1 Capsule(s) PO TID 10/17/2016 10/23/2016 Inactive prednisone 10 mg tablet RxNorm: 656694 Tablet(s) PO UD 10/17/2016 11/28/2016 Inactive 6,5,4,3,2,1 tramadol 50 mg tablet RxNorm: 676562 1 Tablet(s) PO Q4H as needed for pain 09/28/2016 11/06/2016 In active [SAVINGS FOR UNINSURED PATIENTS -- BIN:0 65057, PCN: ASPROD1, Group: AME08, ID# [id number], Process claim through [employer], for questions: . THIS IS NOT INSURANCE.] ProAir HFA 90 mcg/ac tuation aerosol inhaler RxNorm: 878399 INHALE 1 TO 2 PUFFS F OUR TIMES A DAY NEEDED FOR ASTHMA 09/15/2016 11/14/2016 Inactive doxycycline hyclate 100 mg tablet RxNorm: 871087 1 Tablet(s) PO BID 09/15/2016 09/24/2016 Inactive doxycycline hyclate 100 mg tablet RxNorm: 820685 1 Tablet(s) PO BID 07/29/2016 08/07/2016 Inactive tramadol 50 mg tablet RxNorm: 906757 1 Tablet(s) PO Q4H as needed for pain 07/29/2016 09/06/2016 In active [SAVINGS FOR UNINSURED PATIENTS -- BIN:0 73975, PCN: ASPROD1, Group: AME08, ID# [id number], Process claim through [employer], for questions: . THIS IS NOT INSURANCE.] lorazepam 1 mg tablet RxNorm: 725017 Tablet(s) TAKE TWO TABLETS BY MOUTH AT B EDTIME AND ONE TABLET DAILY NEEDED 07/29/2016 10/26/2016 Inactive (Response to an electronic controlled substance refill request - RxReferenceNumber: [id number]) levothyroxine 125 mc g tablet RxNorm: 222312 1 Tablet(s) PO daily 06/29/2016 06/29/2016 Inactive levothyroxine 137 mc g tablet RxNorm: 513546 1 Tablet(s) PO daily 06/29/2016 12/25/2016 Inactive ketoconazole 2 % sha mpoo RxNorm: 935404 1 Application TOP BID 06/29/2016 07/03/2016 Inactive tramadol 50 mg tablet RxNorm: 007842 1 Tablet(s) PO Q4H as needed for pain 06/16/2016 07/25/2016 In active [SAVINGS FOR UNINSURED PATIENTS -- BIN:0 58413, PCN: ASPROD1, Group: [id number], ID# [id number], Process claim through [employer], for questions: . THIS IS NOT INSURANCE.] Bactroban 2 % topica l ointment RxNorm: 317557 APPLY TO AFFECTED ARE A(S) TWO TIMES A DAY 06/16/2016 04/16/2017 Inactive fluconazole 150 mg t ablet RxNorm: 326159 1 Tablet(s) PO daily 06/01/2016 06/05/2016 Inactive gentamicin 0.1 % top ical ointment RxNorm: 550785 1 Application TOP QID 05/12/2016 05/25/2016 In active metronidazole 500 mg tablet RxNorm: 353630 1 Tablet(s) PO TID 05/11/2016 05/24/2016 Inactive gentamicin 0.1 % top ical ointment RxNorm: 678314 1 Application TOP QID 05/11/2016 05/11/2016 In active doxycycline hyclate 100 mg tablet RxNorm: 721835 1 Tablet(s) PO BID 05/11/2016 05/24/2016 Inactive lorazepam 1 mg tablet RxNorm: 875273 Tablet(s) TAKE TWO TABLETS BY MOUTH AT B EDTIME AND ONE TABLET DAILY NEEDED 05/02/2016 07/28/2016 Inactive (Response to an electronic controlled substance refill request - RxReferenceNumber: [id number]) Diflucan 150 mg tablet RxNorm: 106479 1 Tablet(s) PO daily x5 days then 1 x we ekly x 4 weeks. 05/02/2016 04/10/2017 Inactive Diflucan 150 mg tablet RxNorm: 372782 1 Tablet(s) PO every other day 04/19/2016 04/28/2016 In active Diflucan 150 mg tablet RxNorm: 862577 1 Tablet(s) PO every other day 04/19/2016 04/18/2016 In active Diflucan 150 mg tablet RxNorm: 668539 1 Tablet(s) PO daily 04/05/2016 04/11/2016 Inactive mupirocin 2 % topica l ointment RxNorm: 539424 1 Application TOP BID 04/05/2016 05/04/2016 Inactive tramadol 50 mg tablet RxNorm: 701435 1 Tablet(s) PO Q4H as needed for pain 04/05/2016 05/14/2016 In active [SAVINGS FOR UNINSURED PATIENTS -- BIN:0 55090, PCN: ASPROD1, Group: AME08, ID# [id number], Process claim through [employer], for questions: . THIS IS NOT INSURANCE.] prednisone 10 mg tablet RxNorm: 756616 Tablet(s) PO UD 04/01/2016 09/26/2016 Inactive 6,5,4,3,2,1 levothyroxine 137 mc g tablet RxNorm: 381607 1 Tablet(s) PO daily 03/21/2016 03/20/2016 Inactive levothyroxine 137 mc g tablet RxNorm: 177872 1 Tablet(s) PO daily 03/21/2016 06/28/2016 Inactive Advair Diskus 100 mc g-50 mcg/dose powder for inhalation RxNorm: 8245069 1 Puff(s) INH BID 01/26/2016 05/24/2016 Inactive tramadol 50 mg tablet RxNorm: 146485 1 Tablet(s) PO Q4H as needed for pain 01/26/2016 03/05/2016 In active [SAVINGS FOR UNINSURED PATIENTS -- BIN:0 02245, PCN: ASPROD1, Group: AME08, ID# [id number], Process claim through [employer], for questions: . THIS IS NOT INSURANCE.] Bactroban 2 % topica l ointment RxNorm: 483530 APPLY TO AFFECTED ARE A(S) TWO TIMES A DAY 12/22/2015 12/31/2015 Inactive Bactrim DS 800 mg-16 0 mg tablet RxNorm: 267952 TAKE ONE TABLET BY [facility] TWICE A DAY 12/22/2015 04/18/2016 In active Bactrim DS 800 mg-16 0 mg tablet RxNorm: 568744 1 Tablet(s) PO BID 12/21/2015 12/30/2015 Inactive lisinopril 20 mg-hyd rochlorothiazide 25 mg tablet RxNorm: 981003 1 Tablet(s) PO daily 12/21/2015 06/17/2016 Inactive [SAVINGS FOR UNINSURED PATIENTS -- BIN:0 49859, PCN: ASPROD1, Group: AME08, ID# [id number], Process claim through [employer], for questions: . THIS IS NOT INSURANCE.] tramadol 50 mg tablet RxNorm: 284745 1 Tablet(s) PO Q4H as needed for pain 12/03/2015 01/11/2016 In active [SAVINGS FOR UNINSURED PATIENTS -- BIN:0 82545, PCN: ASPROD1, Group: [id number], ID# [id number], Process claim through [employer], for questions: . THIS IS NOT INSURANCE.] lorazepam 1 mg tablet RxNorm: 407516 Tablet(s) TAKE TWO TABLETS BY MOUTH AT B EDTIME AND ONE TABLET DAILY NEEDED 11/26/2015 06/27/2018 Inactive (Response to an electronic controlled substance refill request - RxReferenceNumber: [id number]) Bactrim DS 800 mg-16 0 mg tablet RxNorm: 997957 1 Tablet(s) PO BID 11/25/2015 12/04/2015 Inactive levothyroxine 150 mc g tablet RxNorm: 688654 1 Tablet(s) PO daily 11/25/2015 03/20/2016 Inactive Bactroban 2 % topica l ointment RxNorm: 541508 1 Application TOP BID 10/12/2015 10/21/2015 Inactive Bactrim DS 800 mg-16 0 mg tablet RxNorm: 104593 1 Tablet(s) PO BID 09/07/2015 09/06/2015 Inactive Bactrim DS 800 mg-16 0 mg tablet RxNorm: 793044 1 Tablet(s) PO BID 09/07/2015 09/16/2015 Inactive lorazepam 1 mg tablet RxNorm: 328161 Tablet(s) TAKE TWO TABLETS BY MOUTH AT B EDTIME AND ONE TABLET DAILY NEEDED 08/28/2015 11/24/2015 Inactive (Response to an electronic controlled substance refill request - RxReferenceNumber: [id number]) levothyroxine 175 mc g tablet RxNorm: 054300 1 Tablet(s) PO daily 08/24/2015 11/24/2015 Inactive tramadol 50 mg tablet RxNorm: 669145 1 Tablet(s) PO Q4H as needed for pain 08/24/2015 09/11/2017 In active [SAVINGS FOR UNINSURED PATIENTS -- BIN:0 38482, PCN: ASPROD1, Group: [id number], ID# [id number], Process claim through [employer], for questions: . THIS IS NOT INSURANCE.] lisinopril 20 mg-hyd rochlorothiazide 25 mg tablet RxNorm: 196510 1 Tablet(s) PO daily TAKE 1 TABLET BY MOUTH DAILY 08/24/2015 06/27/2018 Inactive ProAir HFA 90 mcg/ac tuation aerosol inhaler RxNorm: 679703 1-2 Puff(s) INH PRN I NHALE ONE TO TWO PUFFS BY MOUTH FOUR TIMES A DAY NEEDED FOR ASTHMA 08/24/2015 12/01/2015 In active ProAir HFA 90 mcg/ac tuation aerosol inhaler RxNorm: 5010986 INHALE ONE TO TWO PU FFS BY MOUTH FOUR TIMES A DAY NEEDED FOR ASTHMA 08/17/2015 08/23/2015 Inactive Advair Diskus 250 mc g-50 mcg/dose powder for inhalation RxNorm: 8190209 1 Puff(s) INH BID 07/20/2015 07/19/2015 Inactive Advair Diskus 250 mc g-50 mcg/dose powder for inhalation RxNorm: 6619470 1 Puff(s) INH BID 07/20/2015 11/16/2015 Inactive tramadol 50 mg tablet RxNorm: 194920 1 Tablet(s) PO Q4H as needed for pain 07/10/2015 08/17/2015 In active [SAVINGS FOR UNINSURED PATIENTS -- BIN:0 90606, PCN: ASPROD1, Group: AME08, ID# [id number], Process claim through [employer], for questions: . THIS IS NOT INSURANCE.] Zithromax Z-Linus 250 mg tablet RxNorm: 457279 1 Tablet(s) PO UD 07/10/2015 01/18/2016 Inactive Keflex 500 mg capsule RxNorm: 632834 1 Capsule(s) PO TID 06/01/2015 06/07/2015 Inactive mupirocin 2 % topica l ointment RxNorm: 995195 1 Application TOP TID 06/01/2015 06/10/2015 Inactive lisinopril 20 mg-hyd rochlorothiazide 25 mg tablet RxNorm: 281461 TAKE 1 TABLET BY MOUT H DAILY 05/30/2015 08/23/2015 Inactive lisinopril 20 mg-hyd rochlorothiazide 25 mg tablet RxNorm: 492926 1 Tablet(s) PO daily 05/29/2015 11/24/2015 Inactive [SAVINGS FOR UNINSURED PATIENTS -- BIN:0 84921, PCN: ASPROD1, Group: [id number], ID# [id number], Process claim through [employer], for questions: . THIS IS NOT INSURANCE.] lorazepam 1 mg tablet RxNorm: 747484 Tablet(s) TAKE TWO TABLETS BY MOUTH AT B EDTIME AND ONE TABLET DAILY NEEDED 04/17/2015 07/13/2015 Inactive (Response to an electronic controlled substance refill request - RxReferenceNumber: [id number]) levothyroxine 200 mc g tablet RxNorm: 492536 1 Tablet(s) PO daily 03/12/2015 08/23/2015 Inactive [SAVINGS FOR UNINSURED PATIENTS -- BIN:0 46542, PCN: ASPROD1, Group: [id number], ID# [id number], Process claim through [employer], for questions: . THIS IS NOT INSURANCE.] lisinopril 20 mg-hyd rochlorothiazide 25 mg tablet RxNorm: 156468 1 Tablet(s) PO daily 03/11/2015 05/28/2015 Inactive [SAVINGS FOR UNINSURED PATIENTS -- BIN:0 90839, PCN: ASPROD1, Group: AME08, ID# [id number], Process claim through [employer], for questions: . THIS IS NOT INSURANCE.] levothyroxine 175 mc g tablet RxNorm: 145549 1 Tablet(s) PO daily 03/09/2015 03/11/2015 Inactive recheck blood in 3 months- THIS IS CORRE CT DOSAGE levothyroxine 175 mc g tablet RxNorm: 936520 1 Tablet(s) PO daily 03/09/2015 03/08/2015 Inactive recheck blood in 3 months levothyroxine 150 mc g tablet RxNorm: 445510 1 Tablet(s) PO daily 03/09/2015 03/08/2015 Inactive recheck blood in 3 months lorazepam 1 mg tablet RxNorm: 281897 TAKE TWO TABLETS BY MOUTH AT BEDTIME AND ONE TABLET DAILY NEEDED 12/25/2014 01/22/2015 Inactive (Response to an electronic controlled substance refill request - RxReferenceNumber: [id number]) lorazepam 1 mg tablet RxNorm: 251353 Tablet(s) TAKE TWO TABLETS BY MOUTH EVER Y NIGHT AT BEDTIME AND TAKE ONE TABLET BY MOUTH DAILY NEEDED 12/23/2014 12/25/2014 Inactive (Response to an electronic controlled nroth bstance refill request - RxReferenceNumber: [id number]) levothyroxine 150 mc g tablet RxNorm: 378412 1 Tablet(s) PO daily 12/12/2014 03/08/2015 Inactive recheck blood in 3 months Diflucan 150 mg tablet RxNorm: 475540 1 Tablet(s) PO every other day (start af ter finished with Cipro) 11/17/2014 08/23/2015 Inactive tramadol 50 mg tablet RxNorm: 628216 1 Tablet(s) PO Q4H as needed for pain 11/10/2014 12/17/2014 In active [SAVINGS FOR UNINSURED PATIENTS -- BIN:0 74829, PCN: ASPROD1, [facility]# [id number], Process claim through [employer], for questions: . THIS IS NOT INSURANCE.] Cipro 500 mg tablet RxNorm: 926368 1 Tablet(s) PO BID 10/23/2014 10/29/2014 Inactive Flagyl 500 mg tablet RxNorm: 488235 1 Tablet(s) PO TID 10/23/2014 10/29/2014 Inactive Cipro 500 mg tablet RxNorm: 669830 1 Tablet(s) PO BID 10/23/2014 10/22/2014 Inactive Flagyl 500 mg tablet RxNorm: 003872 1 Tablet(s) PO TID 10/23/2014 10/22/2014 Inactive Diflucan 150 mg tablet RxNorm: 829007 1 Tablet(s) PO every other day (start af ter finished with Cipro) 10/23/2014 11/16/2014 Inactive lorazepam 1 mg tablet RxNorm: 386886 TAKE TWO TABLETS BY MOUTH EVERY NIGHT AT BEDTIME AND TAKE ONE TABLET BY MOUTH DAILY NEEDED 10/21/2014 10/21/2014 Inactive (Response to an electronic controlled north bstance refill request - RxReferenceNumber: [id number]) lorazepam 1 mg tablet RxNorm: 773062 TAKE TWO TABLETS BY MOUTH EVERY NIGHT AT BEDTIME AND TAKE ONE TABLET BY MOUTH DAILY NEEDED 10/21/2014 11/18/2014 Inactive (Response to an electronic controlled north bstance refill request - RxReferenceNumber: [id number]) lorazepam 1 mg tablet RxNorm: 342155 Tablet(s) TAKE TWO TABLETS BY MOUTH AT B EDTIME, ALSO TAKE ONE TABLET BY MOUTH DAILY NEEDED 10/13/2014 10/21/2014 Inactive (Res ponse to an electronic controlled substance refill request - RxReferenceNumber: [id number]) ProAir HFA 90 mcg/ac tuation aerosol inhaler RxNorm: 5283416 1-2 inhale INH QID a s needed ASTHMA 10/13/2014 12/26/2014 Inactive ProAir HFA 90 mcg/ac tuation aerosol inhaler RxNorm: 0678191 1-2 inhale INH QID a s needed ASTHMA 09/18/2014 10/12/2014 Inactive meloxicam 7.5 mg tablet RxNorm: 724291 1 Tablet(s) PO daily 09/18/2014 03/10/2015 Inactive [SAVINGS FOR UNINSURED PATIENTS -- BIN:0 46275, PCN: ASPROD1, Group: AME08, ID# [id number], Process claim through [employer], for questions: . THIS IS NOT INSURANCE.] sulfamethoxazole 800 mg-trimethoprim 160 mg tablet RxNorm: 399637 1 Tablet(s) PO BID 09/18/2014 10/07/2014 Inactive levothyroxine 175 mc g tablet RxNorm: 453215 1 Tablet(s) PO daily 09/17/2014 12/11/2014 Inactive levothyroxine 175 mc g tablet RxNorm: 981876 1 Tablet(s) PO daily 09/17/2014 09/16/2014 Inactive lorazepam 1 mg tablet RxNorm: 670425 Tablet(s) TAKE TWO TABLETS BY MOUTH AT B EDTIME, ALSO TAKE ONE TABLET BY MOUTH DAILY NEEDED 09/12/2014 10/11/2014 Inactive (Res ponse to an electronic controlled substance refill request - RxReferenceNumber: [id number]) lorazepam 1 mg tablet RxNorm: 161933 TAKE TWO TABLETS BY MOUTH AT BEDTIME, AL SO TAKE ONE TABLET BY MOUTH DAILY NEEDED 09/08/2014 09/11/2014 Inactive (Res ponse to an electronic controlled substance refill request - RxRefGreenwood [place] Hospitalber: [id number]) meloxicam 7.5 mg tablet RxNorm: 390813 1 Tablet(s) PO daily 09/01/2014 09/17/2014 Inactive [SAVINGS FOR UNINSURED PATIENTS -- BIN:0 10809, PCN: ASPROD1, Group: [id number], ID# [id number], Process claim through [employer], for questions: . THIS IS NOT INSURANCE.] lisinopril 20 mg-hyd rochlorothiazide 25 mg tablet RxNorm: 533038 1 Tablet(s) PO daily 09/01/2014 12/29/2014 Inactive [SAVINGS FOR UNINSURED PATIENTS -- BIN:0 57941, PCN: ASPROD1, Group: [id number], ID# [id number], Process claim through [employer], for questions: . THIS IS NOT INSURANCE.] tramadol 50 mg tablet RxNorm: 761145 1 Tablet(s) PO Q4H as needed for pain 08/20/2014 11/07/2014 In active [SAVINGS FOR UNINSURED PATIENTS -- BIN:0 49308, PCN: ASPROD1, Group: [id number], ID# [id number], Process claim through [employer], for questions: . THIS IS NOT INSURANCE.] meloxicam 7.5 mg tablet RxNorm: 298513 1 Tablet(s) PO daily 08/14/2014 08/31/2014 Inactive [SAVINGS FOR UNINSURED PATIENTS -- BIN:0 02776, PCN: ASPROD1, Group: [id number], ID# [id number], Process claim through [employer], for questions: . THIS IS NOT INSURANCE.] lorazepam 1 mg tablet RxNorm: 207155 2 Tablet(s) PO QHS and 1 tab qd PRN 08/01/2014 09/08/2014 In active [SAVINGS FOR UNINSURED PATIENTS -- BIN:0 80687, PCN: ASPROD1, Group: [id number], ID# [id number], Process claim through [employer], for questions: . THIS IS NOT INSURANCE.] levothyroxine 200 mc g tablet RxNorm: 292571 1 Tablet(s) PO daily 07/31/2014 09/16/2014 Inactive [SAVINGS FOR UNINSURED PATIENTS -- BIN:0 18758, PCN: ASPROD1, Group: [id number], ID# [id number], Process claim through [employer], for questions: . THIS IS NOT INSURANCE.] lorazepam 1 mg tablet RxNorm: 764293 2 Tablet(s) PO QHS and 1 tab qd PRN No Start Date 07/31/2014 Inactive Phenergan VC-Codeine oral RxNorm: 287285 oral No S tart Date 11/26/2017 Inactive meloxicam 7.5 mg tablet RxNorm: 990816 1 Tablet(s) PO daily No Start Date 08/13/2014 Inactive lisinopril 20 mg-hyd rochlorothiazide 25 mg tablet RxNorm: 550105 1 Tablet(s) PO daily No Start Date 08/31/2014 Inactive levothyroxine 200 mc g tablet RxNorm: 721946 1 Tablet(s) PO daily No Start Date 07/30/2014 Inactive Diflucan 150 mg tablet RxNorm: 194478 1 Tablet(s) PO every other day No Start Date 10/22/2014 Inactive Zithromax Z-Linus 250 mg tablet RxNorm: 309353 1 Tablet(s) PO UD No Start Date 07/09/2015 Inactive tramadol 50 mg tablet RxNorm: 484744 1 Tablet(s) PO Q6 as needed No Start Date 08/19/2014 Inactive Medication Administered Medication Codes Instruc tions Start Date Status Kenalog 40 mg/mL suspension for injection RxNorm: 9016596 1Milliliter 06/14/2017 N o longer Active Kenalog 40 mg/mL suspension for injection RxNorm: 2804665 1Milliliter 03/27/2017 N o longer Active Kenalog 40 mg/mL suspension for injection RxNorm: 5860249 Milliliter 12/07/2016 No longer Active Kenalog 40 mg/mL suspension for injection RxNorm: 2297479 Milliliter 11/28/2016 No longer Active Immunizations Vaccine [...] 30.0 pg 04/04/2018 Cbc With Differential Ord2 [place]% 10.9 % 04/04/2018 Cbc With Differential Ord2 [...] 1.42 K/ul 04/04/2018 Cbc With Differential Ord2 [place] ABS# 0.6 K/ul 04/04/2018 Cbc With Differential Ord2 Eos ABS# 0.1 K/ul 04/04/2018 Cbc With Differential Ord2 Baso ABS# 0.0 K/ul 04/04/2018 Free T4 Mwj911 FREE T4 1.25 ng/dL 04/04/2018 Tsh Ord6 [...] 25.9 % 11/28/2017 Cbc With Differential Ord2 [place]% 10.1 % 11/28/2017 Cbc With Differential Ord2 [...] 1.33 K/ul 11/28/2017 Cbc With Differential Ord2 [place] ABS# 0.5 K/ul 11/28/2017 Cbc With Differential Ord2 Eos ABS# 0.1 K/ul 11/28/2017 Cbc With Differential Ord2 Baso ABS# 0.0 K/ul 11/28/2017 Free T4 Grt338 FREE T4 1.43 ng/dL 11/28/2017 Lipid Ord30 CHOL 186 mg/dL 11/28/2017 Lipid Ord30 HDL 54.0 mg/dl 11/28/2017 Lipid Ord30 TRIG 59 mg/dL 11/28/2017 Lipid Ord30 LDL 120 mg/dL 11/28/2017 Lipid Ord30 C/HDL 3.4 Ratio 11/28/2017 Comp Metabolic Zzr833 NA 141 mEq/L 11/28/2017 Comp Metabolic Pbs420 K 4.0 mEq/L 11/28/2017 Comp Metabolic Hzl264 CL 105 mEq/L 11/28/2017 Comp Metabolic Xly475 CO2 29.0 mEq/L 11/28/2017 Comp Metabolic Rwb022 AN ION GAP 11 11/28/2017 Comp Metabolic Exm056 GL UCOSE 91 mg/dL 11/28/2017 Comp Metabolic Vdy057 Cr eat 0.8 mg/dL 11/28/2017 Comp Metabolic Zxw262 eG FR 74 ml/min/1.73m2 11/28 Comp Metabolic Hks388 BUN 15 mg/dL 11/28/2017 Comp Metabolic Mai938 B/ C Ratio 18.8 Ratio 11/28/2017 Comp Metabolic Csn458 CA LCIUM 8.6 mg/dL 11/28/2017 Comp Metabolic Rag227 AL K PHOS 76 U/L 11/28/2017 Comp Metabolic Qpu188 T(SGOT) 10 U/L 11/28/2017 Comp Metabolic Nji355 AL T(SGPT) 8 U/L 11/28/2017 Comp Metabolic Umr035 BI LI T 0.5 mg/dL 11/28/2017 Comp Metabolic Avo173 AL BUMIN 4.0 g/dL 11/28/2017 Comp Metabolic Wer008 TP RO 6.1 g/dL 11/28/2017 Comp Metabolic Wqn726 GL OB 2.1 g/dL 11/28/2017 Comp Metabolic Ztw571 A/ G Ratio 1.9 Ratio 11/28/2017 Comp Metabolic Btt481 Os mo 282 mOsmo 11/28/2017 Tsh Ord6 TSH (3rd IS) 3.31 uIU/mL 11/28/2017 Tsh Ord6 hTSH II 1.45 uIU/mL 03/27/2017 Free T4 Sen492 FREE T4 1.23 ng/dL 03/27/2017 Comp Metabolic Zig258 NA 140 mEq/L 09/28/2016 Comp Metabolic Low146 K 3.9 mEq/L 09/28/2016 Comp Metabolic Ytp251 CL 104 mEq/L 09/28/2016 Comp Metabolic Qjk350 CO2 28.0 mEq/L 09/28/2016 Comp Metabolic Nfx912 AN ION GAP 12 09/28/2016 Comp Metabolic Fsq672 GL UCOSE 97 mg/dL 09/28/2016 Comp Metabolic Ark318 Cr eat 0.8 mg/dL 09/28/2016 Comp Metabolic Rkk416 eG FR 79 ml/min/1.73m2 09/28 Comp Metabolic Nla091 BUN 13 mg/dL 09/28/2016 Comp Metabolic Diw788 B/ C Ratio 17.1 Ratio 09/28/2016 Comp Metabolic Ahv190 CA LCIUM 8.9 mg/dL 09/28/2016 Comp Metabolic Zgm925 AL K PHOS 100 U/L 09/28/2016 Comp Metabolic Dsi189 T(SGOT) 12 U/L 09/28/2016 Comp Metabolic Mbr853 AL T(SGPT) 9 U/L 09/28/2016 Comp Metabolic Ati664 BI LI T 0.4 mg/dL 09/28/2016 Comp Metabolic Nec727 AL BUMIN 4.1 g/dL 09/28/2016 Comp Metabolic Fvz346 TP RO 6.6 g/dL 09/28/2016 Comp Metabolic Rza400 GL OB 2.5 g/dL 09/28/2016 Comp Metabolic Qce530 A/ G Ratio 1.6 Ratio 09/28/2016 Comp Metabolic Mbb670 Os mo 279 mOsmo 09/28/2016 Lipid Ord30 [...] 28.8 pg 09/28/2016 Cbc With Differential Ord2 [place]% 7.2 % 09/28/2016 Cbc With Differential Ord2 [...] 1.41 K/ul 09/28/2016 Cbc With Differential Ord2 [place] ABS# 0.5 K/ul 09/28/2016 Cbc With Differential Ord2 Eos ABS# 0.2 K/ul 09/28/2016 Cbc With Differential Ord2 Baso ABS# 0.0 K/ul 09/28/2016 Free T4 Heo334 FREE T4 1.43 ng/dL 09/28/2016 Tsh Ord6 hTSH II 0.52 uIU/mL 09/28/2016 Tsh Ord6 hTSH II 0.47 uIU/mL 06/16/2016 Comp Metabolic Bsg675 NA 139 mEq/L 06/16/2016 Comp Metabolic Ahg775 K 4.3 mEq/L 06/16/2016 Comp Metabolic Jpw025 CL 105 mEq/L 06/16/2016 Comp Metabolic Msi180 CO2 30.0 mEq/L 06/16/2016 Comp Metabolic Hmq161 AN ION GAP 8 06/16/2016 Comp Metabolic Sfv798 GL UCOSE 90 mg/dL 06/16/2016 Comp Metabolic Yxt351 Cr eat 0.7 mg/dL 06/16/2016 Comp Metabolic Wam823 eG FR 91 ml/min/1.73m2 06/16 Comp Metabolic Nup021 BUN 15 mg/dL 06/16/2016 Comp Metabolic Gab516 B/ C Ratio 22.4 Ratio 06/16/2016 Comp Metabolic Mlq718 CA LCIUM 8.8 mg/dL 06/16/2016 Comp Metabolic Omp947 AL K PHOS 79 U/L 06/16/2016 Comp Metabolic Fnr342 T(SGOT) 13 U/L 06/16/2016 Comp Metabolic Ynb570 AL T(SGPT) 11 U/L 06/16/2016 Comp Metabolic Jzw695 BI LI T 0.5 mg/dL 06/16/2016 Comp Metabolic Kif503 AL BUMIN 3.9 g/dL 06/16/2016 Comp Metabolic Xaq363 TP RO 6.1 g/dL 06/16/2016 Comp Metabolic Ete820 GL OB 2.2 g/dL 06/16/2016 Comp Metabolic Ofz357 A/ G Ratio 1.8 Ratio 06/16/2016 Comp Metabolic Xfy167 Os mo 278 mOsmo 06/16/2016 Lipid Ord30 [...] 28.9 pg 06/16/2016 Cbc With Differential Ord2 [place]% 8.1 % 06/16/2016 Cbc With Differential Ord2 [...] 1.70 K/ul 06/16/2016 Cbc With Differential Ord2 [place] ABS# 0.4 K/ul 06/16/2016 Cbc With Differential Ord2 Eos ABS# 0.2 K/ul 06/16/2016 Cbc With Differential Ord2 Baso ABS# 0.0 K/ul 06/16/2016 Free T4 Htv461 FREE T4 1.42 ng/dL 06/16/2016 Free T4 Kms423 FREE T4 1.34 ng/dL 03/04/2016 Tsh Ord6 hTSH II 0.56 uIU/mL 03/04/2016 Tsh Ord6 hTSH II 0.98 uIU/mL 01/27/2016 Free T4 Hbp942 FREE T4 1.19 ng/dL 01/27/2016 Free T4 Sbx369 FREE T4 1.69 ng/dL 11/23/2015 Tsh Ord6 hTSH II 0.08 uIU/mL 11/23/2015 Lipid Ord30 CHOL 185 mg/dL 08/21/2015 Lipid Ord30 HDL 50.0 mg/dl 08/21/2015 Lipid Ord30 TRIG 88 mg/dL 08/21/2015 Lipid Ord30 LDL 117 mg/dL 08/21/2015 Lipid Ord30 C/HDL 3.7 Ratio 08/21/2015 Comp Metabolic Itc454 NA 139 mEq/L 08/21/2015 Comp Metabolic Nkg183 K 4.3 mEq/L 08/21/2015 Comp Metabolic Nbn437 CL 102 mEq/L 08/21/2015 Comp Metabolic Trd436 CO2 27.0 mEq/L 08/21/2015 Comp Metabolic Wqi579 AN ION GAP 14 08/21/2015 Comp Metabolic Vjc206 GL UCOSE 89 mg/dL 08/21/2015 Comp Metabolic Udx263 Cr eat 0.7 mg/dL 08/21/2015 Comp Metabolic Zpb448 eG FR 85 ml/min/1.73m2 08/21 Comp Metabolic Xdb832 BUN 14 mg/dL 08/21/2015 Comp Metabolic Lmp520 B/ C Ratio 19.7 Ratio 08/21/2015 Comp Metabolic Ukw948 CA LCIUM 9.5 mg/dL 08/21/2015 Comp Metabolic Htz218 AL K PHOS 123 U/L 08/21/2015 Comp Metabolic Lku300 T(SGOT) 13 U/L 08/21/2015 Comp Metabolic Rcx297 AL T(SGPT) 10 U/L 08/21/2015 Comp Metabolic Tsa075 BI LI T 0.4 mg/dL 08/21/2015 Comp Metabolic Vtl455 AL BUMIN 4.1 g/dL 08/21/2015 Comp Metabolic Zga425 TP RO 6.8 g/dL 08/21/2015 Comp Metabolic Lhk883 GL OB 2.7 g/dL 08/21/2015 Comp Metabolic Hzj785 A/ G Ratio 1.5 Ratio 08/21/2015 Comp Metabolic Nty194 Os mo 277 mOsmo 08/21/2015 Free T4 Jfp679 FREE T4 1.78 ng/dL 08/21/2015 Tsh Ord6 [...] Ord2 RDW 13.9 % 08/21/2015 Quick Strep Ftb4177 Quic k Strep Negative 07/08/2015 Tsh Ord6 hTSH II 0.04 uIU/mL 05/20/2015 Free T4 Onv298 FREE T4 1.50 ng/dL 05/20/2015 Review of [...] Procedure Codes Date DESTRUCT PREMALG LESION CPT-4: 38187 01/19/2018 URINALYSIS NONAUTO W /O SCOPE CPT-4: 14275 09/12/2017 TRIAMCINOLONE ACET I [place] NOS CPT-4: J3301 06/14/2017 THER/PROPH/DIAG INJ SC/IM CPT-4: 12261 06/14/2017 PRESCRIP TRANSMIT A ERX SY CPT-4: G8553 06/14/2017 TRIAMCINOLONE ACET I [place] NOS CPT-4: J3301 03/27/2017 THER/PROPH/DIAG INJ SC/IM CPT-4: 10022 12/07/2016 TRIAMCINOLONE ACET I [place] NOS CPT-4: J3301 12/07/2016 THER/PROPH/DIAG INJ SC/IM CPT-4: 72875 11/28/2016 TRIAMCINOLONE ACET I [place] NOS CPT-4: J3301 11/28/2016 Vital Signs Date Vital 06/28/2018 Blood Pressure 1: 110/66 Code: 8480-6 BMI: 37.1 Code: 83681-6 Heart Rate 1: 73 bpm Height: 5'6" SpO2: 98% Weight: 230 lbs 04/04/2018 Blood Pressure 1: 128/76 Code: 8480-6 BMI: 37.9 Code: 54125-6 Heart Rate 1: 86 bpm Height: 5'6" SpO2: 98% Weight: 235 lbs 01/19/2018 Blood Pressure 1: 122/68 Code: 8480-6 Heart Rate 1: 78 bpm Height: 5'6" SpO2: 97% Weight: 01/05/2018 Blood Pressure 1: 138/78 Code: 8480-6 BMI: 38.4 Code: 45630-9 Heart Rate 1: 73 bpm Height: 5'6" SpO2: 95% Weight: 238 lbs 11/29/2017 Blood Pressure 1: 138/80 Code: 8480-6 BMI: 38.7 Code: 69642-2 Heart Rate 1: 71 bpm Height: 5'6" SpO2: 97% Weight: 240 lbs 10/25/2017 Blood Pressure 1: 136/72 Code: 8480-6 BMI: 38.7 Code: 15703-4 Heart Rate 1: 92 bpm Height: 5'6" SpO2: 98% Weight: 240 lbs 09/12/2017 Blood Pressure 1: 132/68 Code: 8480-6 BMI: 39.7 Code: 58890-9 Heart Rate 1: 76 bpm Height: 5'6" SpO2: 98% Weight: 246 lbs 06/14/2017 Blood Pressure 1: 130/80 Code: 8480-6 BMI: 39.4 Code: 83327-2 Heart Rate 1: 73 bpm Height: 5'6" SpO2: 95% Temperature: 36.9 (C ) / 98.5 (F) Weight: 244 lbs 05/10/2017 Blood Pressure 1: 128/68 Code: 8480-6 BMI: 38.7 Code: 10925-8 Heart Rate 1: 69 bpm Height: 5'6" SpO2: 97% Weight: 240 lbs 04/19/2017 Blood Pressure 1: 138/74 Code: 8480-6 BMI: 38.7 Code: 52659-6 Heart Rate 1: 73 bpm Height: 5'6" SpO2: 96% Weight: 240 lbs 03/27/2017 Blood Pressure 1: 142/84 Code: 8480-6 BMI: 38.7 Code: 43459-3 Heart Rate 1: 69 bpm Height: 5'6" SpO2: 97% Weight: 240 lbs 01/26/2017 Blood Pressure 1: 136/68 Code: 8480-6 Heart Rate 1: 64 bpm Height: 5'6" SpO2: 96% Weight: 12/07/2016 Blood Pressure 1: 130/72 Code: 8480-6 BMI: 39.7 Code: 62667-7 Heart Rate 1: 73 bpm Height: 5'6" SpO2: 93% Temperature: 36.8 (C ) / 98.3 (F) Weight: 246 lbs 11/28/2016 Blood Pressure 1: 138/60 Code: 8480-6 BMI: 39.7 Code: 72182-0 Heart Rate 1: 81 bpm Height: 5'6" SpO2: 97% Weight: 246 lbs 11/15/2016 Blood Pressure 1: 134/78 Code: 8480-6 BMI: 39.7 Code: 34375-5 Heart Rate 1: 75 bpm Height: 5'6" SpO2: 93% Temperature: 36.8 (C ) / 98.2 (F) Weight: 246 lbs 10/17/2016 Blood Pressure 1: 120/64 Code: 8480-6 BMI: 38.4 Code: 93187-2 Heart Rate 1: 69 bpm Height: 5'6" SpO2: 98% Temperature: 37.2 (C ) / 98.9 (F) Weight: 238 lbs 09/28/2016 Blood Pressure 1: 158/76 Code: 8480-6 BMI: 39.4 Code: 05967-2 Heart Rate 1: 71 bpm Height: 5'6" SpO2: 97% Weight: 244 lbs 06/29/2016 Blood Pressure 1: 124/60 Code: 8480-6 BMI: 38.7 Code: 45300-3 Heart Rate 1: 71 bpm Height: 5'6" SpO2: 98% Weight: 240 lbs 06/01/2016 Blood Pressure 1: 120/62 Code: 8480-6 BMI: 38.6 Code: 16935-6 Heart Rate 1: 76 bpm Height: 5'6" SpO2: 98% Weight: 239 lbs 05/11/2016 Blood Pressure 1: 140/80 Code: 8480-6 BMI: 38.1 Code: 70468-7 Heart Rate 1: 88 bpm Height: 5'6" SpO2: 97% Weight: 236 lbs 04/05/2016 Blood Pressure 1: 142/80 Code: 8480-6 BMI: 38.4 Code: 96627-2 Heart Rate 1: 96 bpm Height: 5'6" SpO2: 98% Weight: 238 lbs 04/01/2016 Blood Pressure 1: 136/88 Code: 8480-6 BMI: 39.2 Code: 51060-9 Heart Rate 1: 86 bpm Height: 5'6" SpO2: 96% Weight: 243 lbs 01/26/2016 Blood Pressure 1: 124/76 Code: 8480-6 BMI: 39.2 Code: 02625-0 Heart Rate 1: 76 bpm Height: 5'6" SpO2: 97% Weight: 243 lbs 12/21/2015 Blood Pressure 1: 120/64 Code: 8480-6 BMI: 37.0 Code: 99200-2 Heart Rate 1: 98 bpm Height: 5'6" SpO2: 97% Weight: 229 lbs 10/12/2015 Blood Pressure 1: 150/64 Code: 8480-6 BMI: 37.4 Code: 72628-1 Heart Rate 1: 70 bpm Height: 5'6" SpO2: 94% Weight: 232 lbs 08/24/2015 Blood Pressure 1: 128/74 Code: 8480-6 BMI: 36.8 Code: 06481-4 Heart Rate 1: 88 bpm Height: 5'6" SpO2: 94% Temperature: 36.8 (C ) / 98.3 (F) Weight: 228 lbs 06/01/2015 Blood Pressure 1: 134/68 Code: 8480-6 BMI: 36.0 Code: 27035-8 Heart Rate 1: 70 bpm Height: 5'6" SpO2: 98% Weight: 223 lbs 05/21/2015 Blood Pressure 1: 126/72 Code: 8480-6 BMI: 35.2 Code: 08408-5 Heart Rate 1: 63 bpm Height: 5'6" SpO2: 95% Weight: 218 lbs 5 oz 03/26/2015 Blood Pressure 1: 140/62 Code: 8480-6 BMI: 35.3 Code: 69691-3 Heart Rate 1: 68 bpm Height: 5'6" Weight: 219 lbs 03/11/2015 Blood Pressure 1: 130/80 Code: 8480-6 BMI: 34.9 Code: 62044-0 Heart Rate 1: 76 bpm Height: 5'6" Temperature: 37.1 (C ) / 98.7 (F) Weight: 216 lbs 12/11/2014 Blood Pressure 1: 134/62 Code: 8480-6 BMI: 34.2 Code: 66138-1 Heart Rate 1: 72 bpm Height: 5'6" Weight: 212 lbs 09/18/2014 Blood Pressure 1: 148/80 Code: 8480-6 BMI: 34.7 Code: 16718-9 Heart Rate 1: 68 bpm Height: 5'6" Weight: 215 lbs 07/31/2014 Blood Pressure 1: 124/72 Code: 8480-6 BMI: 36.2 Code: 93267-3 Heart Rate 1: 68 bpm Height: 5'6" [...] Severity mi ld 09/28/2016 None hypothyroid 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 09/28/2016 None hypothyroid Onset and Resolution [...] Severity mi ld 06/01/2016 None hypothyroid 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 06/01/2016 None hypothyroid Onset and Resolution [...] and Resolution resolved 04/05/2016 None hypothyroid 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 P ATIENT, LEVEL III Diagnosis: Acute recurrent maxillary sinusitis[ICD10: J01.01] Diagnosis: Other mucopurulent conjunctivitis, left eye[ICD10: H10.022] Diagnosis: Other allergic rhinitis[ICD10: J30.89] [facility] CPT-4: 80330 06/28/2018 [id number] EST. PATIENT, LEVEL IV Diagnosis: Essential (primary) hypertension[ICD10: I10] Diagnosis: Other specified hypothyroidism[ICD10: E03.8] Diagnosis: Other specified anemias[ICD10: D64.89] Diagnosis: Localized edema[ICD10: R60.0] [facility] CPT-4: 98776 04/04/2018 ([id number]) 54986 EST. P ATIENT, LEVEL III Diagnosis: Mild persistent asthma, uncomplicated[ICD10: J45.30] Diagnosis: Actinic keratosis[ICD10: L57.0] Lynn Finn MD, [facility] CPT- 4: 19688 01/05/2018 ([id number]) Miscellaneou s no charge Diagnosis: Essential (primary) hypertension[ICD10: I10] Damari Finn MD, [facility] CPT-4: 96615 12/12/2017 21558 EST. PATIENT, LEVEL III Diagnosis: Essential (primary) hypertension[ICD10: I10] Diagnosis: Atrophy of thyroid (acquired)[ICD10: E03.4] Diagnosis: Low back pain[ICD10: M54.5] Mishel Finn MD, [facility] CPT-4: 50346 11/29/2017 09054 EST. PATIENT, LEVEL III Diagnosis: Pain in left hip[ICD10: M25.552] Mishel Finn MD, [facility] CPT-4: 99971 10/25/2017 89136 EST. PATIENT, LEVEL IV Diagnosis: Localized edema[ICD10: R60.0] Mishel Finn MD, [facility] CPT-4: 15999 09/12/2017 69227 EST. PATIENT, LEVEL IV Diagnosis: Mild persistent asthma with (acute) exacerbation[ICD10: J45.31] Mishel Finn MD, [facility] CPT-4: 88298 06/14/2017 37500 EST. PATIENT, LEVEL III Diagnosis: Localized edema[ICD10: R60.0] Diagnosis: Mild persistent asthma, uncomplicated[ICD10: J45.30] Mishel Finn MD, [facility] CPT-4: 39838 05/10/2017 67574 EST. PATIENT, LEVEL III Diagnosis: Mild persistent asthma with (acute) exacerbation[ICD10: J45.31] Mishel Finn MD, [facility] CPT-4: 61453 04/19/2017 ([id number]) 87434 EST. P ATIENT, LEVEL IV Diagnosis: Contusion of left wrist, initial encounter[ICD10: S60.212A] Diagnosis: Hypothyroidism, unspecified[ICD10: E03.9] Diagnosis: Mild persistent asthma with (acute) exacerbation[ICD10: J45.31] Diagnosis: Low back pain[ICD10: M54.5] Lynn Finn MD, [facility] CPT- 4: 70613 03/27/2017 ([id number]) 58744 EST. P ATIENT, LEVEL IV Diagnosis: Essential (primary) hypertension[ICD10: I10] Diagnosis: Atrophy of thyroid (acquired)[ICD10: E03.4] Diagnosis: Low back pain[ICD10: M54.5] Damari Finn MD, [facility] CPT-4: 14533 01/26/2017 40604 EST. PATIENT, LEVEL III Diagnosis: Other allergic rhinitis[ICD10: J30.89] Diagnosis: Mild persistent asthma with (acute) exacerbation[ICD10: J45.31] Mishel Finn MD, [facility] CPT-4: 27464 12/07/2016 73176 EST. PATIENT, LEVEL III Diagnosis: Mild persistent asthma with (acute) exacerbation[ICD10: J45.31] Mishel Finn MD, [facility] CPT-4: 84317 11/28/2016 95307 EST. PATIENT, LEVEL III Diagnosis: Mild persistent asthma with (acute) exacerbation[ICD10: J45.31] Diagnosis: Acute bronchitis due to other specified organisms[ICD10: J20.8] Mishel Finn MD, [facility] CPT-4: 64471 11/15/2016 60010 EST. PATIENT, LEVEL IV Diagnosis: Other acute sinusitis[ICD10: J01.80] Diagnosis: Other allergic rhinitis[ICD10: J30.89] Diagnosis: Mild persistent asthma with (acute) exacerbation[ICD10: J45.31] Mishel Finn MD, [facility] CPT-4: 12329 10/17/2016 ([id number]) 87682 EST. P ATIENT, LEVEL IV Diagnosis: Essential (primary) hypertension[ICD10: I10] Diagnosis: Low back pain[ICD10: M54.5] Damari Finn MD, [facility] CPT-4: 53011 09/28/2016 00852 EST. PATIENT, LEVEL III Diagnosis: Tinea barbae and tinea capitis[ICD10: B35.0] Diagnosis: Other specified hypothyroidism[ICD10: E03.8] Mishel Finn MD, [facility] CPT-4: 82831 06/29/2016 ([id number]) 52418 EST. P ATIENT, LEVEL IV Diagnosis: Essential (primary) hypertension[ICD10: I10] Diagnosis: Atrophy of thyroid (acquired)[ICD10: E03.4] Diagnosis: Rash and other nonspecific skin eruption[ICD10: R21] Damari Finn MD, [facility] CPT-4: 33536 06/01/2016 ([id number]) 04840 EST. P ATIENT, LEVEL III Diagnosis: Cellulitis of groin[ICD10: L03.314] Damari Finn MD, [facility] CPT- 4: 52534 05/11/2016 ([id number]) 32711 EST. P ATIENT, LEVEL IV Diagnosis: Hypothyroidism, unspecified[ICD10: E03.9] Diagnosis: Candidiasis of vulva and vagina[ICD10: B37.3] Diagnosis: Essential (primary) hypertension[ICD10: I10] Diagnosis: Low back pain[ICD10: M54.5] Lynn Finn MD, [facility] CPT- 4: 83777 04/05/2016 88935 EST. PATIENT, LEVEL III Diagnosis: Other acute sinusitis[ICD10: J01.80] Diagnosis: Rash and other nonspecific skin eruption[ICD10: R21] Mishel Finn MD, [facility] CPT-4: 75269 04/01/2016 ([id number]) 12390 EST. P ATIENT, LEVEL IV Diagnosis: Essential (primary) hypertension[ICD10: I10] Diagnosis: Hypothyroidism, unspecified[ICD10: E03.9] Diagnosis: Low back pain[ICD10: M54.5] Diagnosis: Other obesity due to excess calories[ICD10: E66.09] Lynn Finn MD, [facility] CPT-4: 32081 01/26/2016 68830 EST. PATIENT, LEVEL IV Diagnosis: Essential (primary) hypertension[ICD10: I10] Diagnosis: Cutaneous abscess of face[ICD10: L02.01] Mishel Finn MD, [facility] CPT-4: 06550 12/21/2015 ([id number]) 80772 EST. P ATIENT, LEVEL III Diagnosis: Cutaneous abscess of groin[ICD10: L02.214] Diagnosis: Hypothyroidism, unspecified[ICD10: E03.9] Lynn Finn MD, [facility] CPT-4: 74505 10/12/2015 ([id number]) 25593 EST. P ATIENT, LEVEL III Diagnosis: Essential (primary) hypertension[ICD10: I10] Diagnosis: Hypothyroidism, unspecified[ICD10: E03.9] Diagnosis: Allergic rhinitis, unspecified[ICD10: J30.9] Lynn Finn MD, [facility] CPT-4: 16272 08/24/2015 ([id number]) 95837 EST. P ATIENT, LEVEL III Diagnosis: Skin infection[ICD9: 686.9] Damari Finn MD, [facility] CPT-4: 30873 06/01/2015 ([id number]) 64283 EST. P ATIENT, LEVEL III Diagnosis: Hypothyroidism[ICD9: 244.9] Diagnosis: ESSENTIAL HYPERTENSION[ICD9: 401.9] Damari Finn MD, [facility] CPT- 4: 76048 05/21/2015 ([id number]) 54449 EST. P ATIENT, LEVEL III Diagnosis: Hypothyroidism[ICD9: 244.9] Diagnosis: Fingernail abnormalities[ICD9: 703.8] Lynn Finn MD, [facility] CPT-4: 59713 03/26/2015 ([id number]) 57382 EST. P ATIENT, LEVEL II Diagnosis: Hypothyroidism[ICD9: 244.9] Maritza Finn MD, [facility] CPT-4: 52037 03/11/2015 ([id number]) [id number] EST. P ATIENT, LEVEL IV Diagnosis: ESSENTIAL HYPERTENSION[ICD9: 401.9] Diagnosis: Low back pain[ICD9: 724.2] Diagnosis: Hypothyroidism[ICD9: 244.9] Damari Finn MD, [facility] CPT-4: 16344 12/11/2014 ([id number]) [id number] EST. P ATIENT, LEVEL IV Diagnosis: Hidradenitis suppurativa[ICD9: 705.83] Diagnosis: ESSENTIAL HYPERTENSION[ICD9: 401.9] Diagnosis: Low back pain[ICD9: 724.2] Diagnosis: Lumbar spinal stenosis[ICD9: 724.02] Diagnosis: HYPOTHYROIDISM[ICD9: 244.9] [facility] CPT-4: 42771 09/18/2014 Office outpatient ne w 30 minutes Diagnosis: ESSENTIAL HYPERTENSION[ICD9: 401.9] Diagnosis: Hypothyroidism[ICD9: 244.9] Diagnosis: Low back pain[ICD9: 724.2] [facility] CPT- 4: 11736 07/31/2014 Plan of Care Planned Activity Notes C odes Status Date Patient Education: Patient Medication Summary Completed 10/23/2018 Care Plan: Cbc With Differential Pending 10/23/2018 Care Plan: Comp Metabolic Pending 10/23/2018 Care Plan: Tsh Pending 10/23/2018 Care Plan: Lipid Pending 10/23/2018 Care Plan: Free T4 Pending 10/23/2018 Appointment: Lynn Arenas WPtel: [phone] [id number] (15 min) Moderate 10/19/2018 Appointment: Damari Finn WPtel: [phone] [id number] [place] (15 min) Moderate 09/19/2018 [...] daily. 06/28/2018 [phone] (30 min) Complex 06/28/2018 Patient Education: [...] monitor. 04/04/2018 Appointment: Mishel Balderrama WPtel: [phone] [id number] (15 min) Moderate 04/04/2018 Patient Education: Patient Medication Summary Completed 04/04/2018 Visit Plan: Wound Instructions - Pt was instructed to keep the wound clean, wash with antibacterial soap, use triple antibiotic ointment, call if redness, pustular drainage, or any other acute concerns. 01/19/2018 Appointment: Lynn Arenas WPtel: [facility]5 [phone] (30 min) Complex 01/19/2018 Patient Education: Patient [...] acute concerns. 01/05/2018 Appointment: Lynn Arenas WPtel: [facility]5 [phone] (30 min) Complex 01/05/2018 Patient Education: Patient [...] not improve. 11/29/2017 App[facility]ment: [phone] [place] ([facility] min) Complex 11/29/2017 Patient [...] not improve. 10/25/2017 Appointment: Mishel Balderrama WPtel: [facility]6 [facility] [place] (30 min) Complex 10/25/2017 Patient Education: [...] peripheral edema. 09/12/2017 Appointment: Mishel Balderrama [facility]Ptel[facility] [place] ([facility] min) Complex 09/12/2017 Patient Education: Patient Medication Summary Completed 09/12/2017 Appointment: Lynn Arenas WPtel: [facility]3 [phone] [place] (30 min) Complex 06/27/2017 Visit Plan: [...] changes. 06/14/2017 Appointment: [phone] [place] (15 min) Moderate 06/14/2017 Patient [...] changes 05/10/2017 App[facility]ment: [phone] [place] (15 min) Moderate 05/10/2017 Patient [...] changes. 04/19/2017 App[facility]ment: [phone] ([facility] min) Moderate 04/19/2017 Patient Education: [...] on previous levels of control. Low back sqtk-jmwwlmn-qhbnsb tramadol for prn use 03/27/2017 App[facility]ment: [phone] (30 min) Complex 03/27/2017 Patient Education: [...] improve. 01/26/2017 [phone] ([facility] min) Moderate 01/26/2017 Patient Education: [...] concerns. 12/07/2016 App[facility]ment: [phone] ([facility] min) Moderate 12/07/2016 Patient Education: [...] acute changes. 11/28/2016 Appointment: Mishel Balderrama WPtel: [phone] [facility] (15 min) Moderate 11/28/2016 Patient Education: Patient Medication Summary Completed 11/28/2016 Appointment: Mishel Balderrama WPtel: [phone] [facility] (15 min) Moderate 11/24/2016 Visit Plan: Bronchitis [...] changes. 11/15/2016 Appointment: Mishel Balderrama WPtel: [phone] [facility] (30 min) Complex 11/15/2016 Patient Education: Patient [...] changes. 10/17/2016 Appointment: Mishel Balderrama WPtel: [phone] [facility] (30 min) Complex 10/17/2016 Patient Education: Patient [...] tylenol 09/28/2016 App[facility]ment: [phone] ([facility] min) Moderate 09/28/2016 Patient Education: [...] control. 06/29/2016 Appointment: Lynn Arenas WPtel: [phone] [phone] (15 min) Moderate 06/29/2016 Patient Education: Patient [...] for fluconazole 06/01/2016 Appointment: Damari Finn WPtel: [facility]5 [facility] (15 min) Moderate 06/01/2016 Patient Education: Patient Medication Summary Completed 06/01/2016 Patient Education: Obesity Completed 06/01/2016 Visit Plan: Cellulitis - continue w ith oral antibiotics as previously directed, return to clinic as previously directed, call for acute change in symptoms, worsening redness, warmth, discharge. 05/11/2016 Appointment: Damari Finn WPtel: [facility]1 [facility] (15 min) Moderate 05/11/2016 Patient [...] any concerns. 04/01/2016 Appointment: Lynn Arenas WPtel: [facility]6 [address] (30 min) Complex 04/01/2016 Patient Education: Patient Medication Summary Completed 04/01/2016 Patient Education: Obesity Completed 04/01/2016 Appointment: Lynn Arenas WPtel: [address] [place] [phone] (30 min) Complex 03/29/2016 Visit Plan: Hypertension [...] levels of control. Low back pain-refill tramadol Qcaux-xeukwclbrf-gcibpksh resolved 01/26/2016 Appointment: Lynn Arenas WPtel: [address] [place], [place] [phone] (30 min) Complex 01/26/2016 Patient Education: Patient Medication Summary Completed 01/26/2016 Patient Education: Obesity Completed 01/26/2016 Care Plan: BMI Above normal followup RADHA F-MGMT EDUC & TRAIN 1 PT Pending 01/26/2016 Care Plan: Referral Order SNOMED-CT : [id number] Pending 01/07/2016 Appointment: ArenasLynn WPtel: [address] [place], [place] [phone] (15 min) Moderate 12/24/2015 Visit Plan: Hypertension [...] nor improving. 06/01/2015 Appointment: Damari Finn WPtel: [address] [place], [place] [phone] (15 min) Moderate 06/01/2015 Patient Education: Patient [...] refill tramadol 12/11/2014 Appointment: Damari Finn WPtel: [facility] follow up 12/11/2014 Patient Education: Patient Medication Summary Completed 12/11/2014 Patient Education: Hypertension Completed 12/11/2014 Appointment: Damari Finn WPtel: [facility] follow up 11/27/2014 Visit Plan: Hidradenitis [...] to get her back MRI done at [facility] in [place] as that is where her specialist will be once we get her an appt with one of the local Neurosurgeons. 09/18/2014 Appointment: AakashJatindery [facility]Ptel[phone] Follow up 09/18/2014 Patient Education: Patient [...] scheduled 07/31/2014 Appointment: [phone] New Patient 07/31/2014 Patient Education: Patient [...] . 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 Low back ysfj-zafdisj-cwdafx tramadol for prn use claritin or zyrtec [...] . 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 Declined Procedure: (43205) FLU VAC NO PRSV 4 JUSTYNA 3 [...] levels of control. Low back pain-refill tramadol Pxufl-gpzlrdhitv-zwavyocy resolved . Hypertension - wel l controlled [...] to get her back MRI done at [facility] in [place] as that is where her specialist will [...]
--- OUTSIDE RECORDS SUMMARY | 2020-02-20 19:37 | XMS REPORT | CCD ---
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 Unknown Has never used illegal drugs 014 Allergies, Adverse Reactions, Alerts Substance Reaction Codes Entered Date Inactivated Date Status * NO KNOWN FOOD BEVERLY RGIES Unknown 07/31/2014 No Inactive Date Active bactrim hives, rash RxNorm: 246257 04/05/2016 No Inactive Date Active Past Medical History Illness Codes Condition Status Onset Date Resolved Date Acute recurrent maxi llary sinusitis ICD-9: 461.0 ICD-10: J01.01 Active 06/28/2018 Unknown Other allergic rhinitis ICD-9: 477.8 ICD-10: J30.89 Active 10/17/2016 Unknown Other mucopurulent c onjunctivitis, left eye ICD-9: 372.03 ICD-10: H10.022 Active 06/28/2018 Unknown Anemia, unspecified ICD- 9: 285.9 ICD-10: D64.9 Active 04/04/2018 Unknown Essential (primary) hypertension ICD-9: 401.9 ICD-10: I10 Active 07/31/2014 Unknown Localized edema ICD-9: 782.3 ICD-10: R60.0 Active 05/10/2017 Unknown Other specified hypo thyroidism ICD-9: 244.8 ICD-10: E03.8 Active 06/28/2016 Unknown Actinic keratosis ICD-9: 702.0 ICD-10: L57.0 [...] Condition Codes Effectiv e Dates Condition Status Acute recurrent maxi llary sinusitis ICD-9: 461.0 ICD-10: J01.01 06/28/2018 Active Other allergic rhinitis ICD-9: 477.8 ICD-10: J30.89 10/17/2016 Active Other mucopurulent c onjunctivitis, left eye ICD-9: 372.03 ICD-10: H10.022 06/28/2018 Active Anemia, unspecified ICD- 9: 285.9 ICD-10: D64.9 04/04/2018 Active Essential (primary) hypertension ICD-9: 401.9 ICD-10: I10 07/31/2014 Active Localized edema ICD-9: 782.3 ICD-10: R60.0 05/10/2017 Active Other specified hypo thyroidism ICD-9: 244.8 ICD-10: E03.8 06/28/2016 Active Actinic keratosis ICD-9: 702.0 ICD-10: L57.0 [...] Fill Instructions lorazepam 1 mg tablet RxNorm: 320367 Tablet(s) TAKE TWO TABLETS BY MOUTH AT B EDTIME NEEDED FOR INSOMNIA AND ONE TABLET DAILY NEEDED ANXIETY 09/06/2018 11/04/2018 Active tramadol 50 mg tablet RxNorm: 695488 1 Tablet(s) PO Q4 PRN as needed for pain 09/06/2018 10/15/2018 Ac tive tramadol 50 mg tablet RxNorm: 547283 1 Tablet(s) PO Q4 PRN as needed for pain 07/06/2018 08/14/2018 In active ciprofloxacin 0.3 % eye drops RxNorm: 980357 2 Drop(s) ophthalmic (eye) TID 06/28/2018 07/07/2018 In active lorazepam 1 mg tablet RxNorm: 045890 Tablet(s) TAKE TWO TABLETS BY MOUTH AT B EDTIME NEEDED FOR INSOMNIA AND ONE TABLET DAILY NEEDED ANXIETY 06/28/2018 08/26/2018 Inactive doxycycline hyclate 100 mg tablet RxNorm: 8858696 1 Tablet(s) PO BID 06/28/2018 07/04/2018 Inactive tramadol 50 mg tablet RxNorm: 044216 1 Tablet(s) PO Q4 PRN as needed for pain 06/13/2018 07/05/2018 In active levothyroxine 125 mc g tablet RxNorm: 300517 Tablet(s) TAKE ONE TA BLET BY MOUTH DAILY ON AN EMPTY STOMACH 05/23/2018 08/15/2019 Active lorazepam 1 mg tablet RxNorm: 078415 Tablet(s) TAKE TWO TABLETS BY MOUTH AT B EDTIME NEEDED FOR INSOMNIA AND ONE TABLET DAILY NEEDED ANXIETY 05/23/2018 06/27/2018 Inactive tramadol 50 mg tablet RxNorm: 330158 1 Tablet(s) PO Q4 PRN as needed for pain 05/23/2018 06/12/2018 In active tramadol 50 mg tablet RxNorm: 935575 1 Tablet(s) PO Q4 PRN as needed for pain 05/17/2018 05/22/2018 In active levothyroxine 125 mc g tablet RxNorm: 207819 TAKE ONE TABLET BY MO UT DAILY 05/15/2018 06/27/2018 In active levothyroxine 125 mc g tablet RxNorm: 116727 TAKE ONE TABLET BY [facility] DAILY 05/15/2018 06/27/2018 In active tramadol 50 mg tablet RxNorm: 890252 1 Tablet(s) PO Q4 PRN as needed for pain 04/30/2018 05/16/2018 In active Advair Diskus 100 mc g-50 mcg/dose powder for inhalation RxNorm: 0815284 1 Puff(s) INH BID 04/06/2018 No Stop Date Active Symbicort 80 mcg-4.5 mcg/actuation HFA aerosol inhaler RxNorm: 0799037 2 Puff(s) INH BID 04/06/2018 No Stop Date Active Advair Diskus 250 mc g-50 mcg/dose powder for inhalation RxNorm: 2710193 1 Puff(s) INH BID 04/05/2018 09/01/2018 Inactive lisinopril 20 mg-hyd rochlorothiazide 25 mg tablet RxNorm: 959007 Tablet(s) TAKE ONE TABLET BY MOUTH DAILY 04/05/2018 09/01/2018 Inactive Zyrtec 10 mg tablet RxNorm: 2459338 1 Tablet(s) PO daily x1 week then PRN 04/05/2018 08/02/2018 In active Zyrtec 10 mg tablet RxNorm: 4116521 1 Tablet(s) PO daily 04/04/2018 05/03/2018 Inactive tramadol 50 mg tablet RxNorm: 618646 1 Tablet(s) PO Q4 PRN as needed for pain 03/13/2018 04/21/2018 In active lorazepam 1 mg tablet RxNorm: 652329 Tablet(s) TAKE TWO TABLETS BY MOUTH AT B EDTIME NEEDED FOR INSOMNIA AND ONE TABLET DAILY NEEDED ANXIETY 03/02/2018 04/30/2018 Inactive levothyroxine 125 mc g tablet RxNorm: 294115 1 Tablet(s) PO daily 02/06/2018 05/06/2018 Inactive levothyroxine 125 mc g tablet RxNorm: 479439 TAKE ONE TABLET BY [facility] DAILY ON AN EMPTY STOMACH 02/06/2018 05/22/2018 Inactive tramadol 50 mg tablet RxNorm: 086987 1 Tablet(s) PO Q4 PRN as needed for pain 01/26/2018 03/06/2018 In active lorazepam 1 mg tablet RxNorm: 170550 Tablet(s) TAKE TWO TABLETS BY MOUTH AT B EDTIME NEEDED FOR INSOMNIA AND ONE TABLET DAILY NEEDED ANXIETY 01/23/2018 06/27/2018 Inactive Symbicort 80 mcg-4.5 mcg/actuation HFA aerosol inhaler RxNorm: 1562034 INH 01/05/2018 06/27/2018 In active tramadol 50 mg tablet RxNorm: 136574 1 Tablet(s) PO Q4 PRN as needed for pain 01/04/2018 01/25/2018 In active Advair Diskus 250 mc g-50 mcg/dose powder for inhalation RxNorm: 1668721 1 Puff(s) INH BID 11/29/2017 03/28/2018 Inactive hydrochlorothiazide 12.5 mg tablet RxNorm: 703674 1 Tablet(s) PO daily 11/29/2017 12/28/2017 In active tramadol 50 mg tablet RxNorm: 040008 1 Tablet(s) PO Q4 PRN as needed for pain 11/23/2017 01/01/2018 In active tramadol 50 mg tablet RxNorm: 111004 1 Tablet(s) PO Q4 PRN as needed for pain 10/06/2017 11/14/2017 In active lorazepam 1 mg tablet RxNorm: 925336 Tablet(s) TAKE TWO TABLETS BY MOUTH AT B EDTIME NEEDED FOR INSOMNIA AND ONE TABLET DAILY NEEDED ANXIETY 09/12/2017 06/27/2018 Inactive tramadol 50 mg tablet RxNorm: 777154 1 Tablet(s) PO Q4 PRN as needed for pain 09/12/2017 10/05/2017 In active tramadol 50 mg tablet RxNorm: 107825 1 Tablet(s) PO Q4 PRN as needed for pain 08/15/2017 09/11/2017 In active tramadol 50 mg tablet RxNorm: 480051 1 Tablet(s) PO Q4 PRN as needed for pain 06/29/2017 08/07/2017 In active ProAir HFA 90 mcg/ac tuation aerosol inhaler RxNorm: 110639 INHALE 1 TO 2 PUFFS F OUR TIMES A DAY NEEDED FOR ASTHMA 06/14/2017 11/10/2017 Inactive prednisone 20 mg tablet RxNorm: 828680 1 Tablet(s) PO BID x 2 days, then 1 pill daily x 3 days, then 1/2 pill every other day x 3 doses. 06/14/2017 09/11/2017 Inactive Kenalog 40 mg/mL madhavi pension for injection RxNorm: 0374913 1 Milliliter(s) Inj 06/14/2017 06/14/2017 In active Zyrtec 10 mg tablet RxNorm: 8697587 1 Tablet(s) PO daily 06/14/2017 07/13/2017 Inactive tramadol 50 mg tablet RxNorm: 038863 1 Tablet(s) PO Q4 PRN as needed for pain 06/08/2017 06/27/2017 In active [SAVINGS FOR UNINSURED PATIENTS -- BIN:0 25113, PCN: ASPROD1, Group: [id number], ID# [id number], Process claim through [employer], for questions: . THIS IS NOT INSURANCE.] tramadol 50 mg tablet RxNorm: 463476 1 Tablet(s) PO Q4 PRN as needed for pain 05/16/2017 06/04/2017 In active [SAVINGS FOR UNINSURED PATIENTS -- BIN:0 42437, PCN: ASPROD1, Group: [id number], ID# [id number], Process claim through [employer], for questions: . THIS IS NOT INSURANCE.] lorazepam 1 mg tablet RxNorm: 398296 Tablet(s) TAKE TWO TABLETS BY MOUTH AT B EDTIME NEEDED FOR INSOMNIA AND ONE TABLET DAILY NEEDED ANXIETY 05/16/2017 08/13/2017 Inactive Lasix 20 mg tablet RxNorm: 1 Tablet(s) PO daily 05/10/2017 05/09/2017 Inactive Lasix 20 mg tablet RxNorm: 1 Tablet(s) PO daily 05/10/2017 05/12/2017 Inactive potassium chloride E R 10 mEq tablet,extended release RxNorm: 937658 1 Tablet(s) PO daily while on the lasix 05/10/2017 05/09/2017 Inactive potassium chloride E R 10 mEq tablet,extended release RxNorm: 110043 1 Tablet(s) PO daily while on the lasix 05/10/2017 05/12/2017 Inactive prednisone 20 mg tablet RxNorm: 413864 1 Tablet(s) PO BID x 2 days, then 1 pill daily x 3 days, then 1/2 pill every other day x 3 doses. 04/19/2017 06/13/2017 Inactive Zithromax Z-Linus 250 mg tablet RxNorm: 307527 1 Tablet(s) PO UD 04/13/2017 06/28/2017 Inactive prednisone 20 mg tablet RxNorm: 811583 1 Tablet(s) PO BID 04/13/2017 04/17/2017 Inactive levothyroxine 125 mc g tablet RxNorm: 877835 1 Tablet(s) PO daily 04/11/2017 10/07/2017 Inactive tramadol 50 mg tablet RxNorm: 266793 1 Tablet(s) PO Q4 PRN as needed for pain 03/27/2017 04/15/2017 In active [SAVINGS FOR UNINSURED PATIENTS -- BIN:0 16471, PCN: ASPROD1, Group: [id number], ID# [id number], Process claim through [employer], for questions: . THIS IS NOT INSURANCE.] Kenalog 40 mg/mL madhavi pension for injection RxNorm: 6993884 1 Milliliter(s) Inj 03/27/2017 03/27/2017 In active tramadol 50 mg tablet RxNorm: 122028 1 Tablet(s) PO Q4H as needed for pain 03/09/2017 03/26/2017 In active [SAVINGS FOR UNINSURED PATIENTS -- BIN:0 73814, PCN: ASPROD1, Group: [id number], ID# [id number], Process claim through [employer], for questions: . THIS IS NOT INSURANCE.] lisinopril 20 mg-hyd rochlorothiazide 25 mg tablet RxNorm: 015161 TAKE ONE TABLET BY MOUTH DAILY 01/29/2017 11/21/2017 Inactive lorazepam 1 mg tablet RxNorm: 282397 Tablet(s) TAKE TWO TABLETS BY MOUTH AT B EDTIME NEEDED FOR INSOMNIA AND ONE TABLET DAILY NEEDED ANXIETY 01/05/2017 04/04/2017 Inactive tramadol 50 mg tablet RxNorm: 607446 1 Tablet(s) PO Q4H as needed for pain 12/07/2016 01/13/2017 In active [SAVINGS FOR UNINSURED PATIENTS -- BIN:0 52363, PCN: ASPROD1, Group: [id number], ID# [id number], Process claim through [employer], for questions: . THIS IS NOT INSURANCE.] Kenalog 40 mg/mL madhavi pension for injection RxNorm: 9192916 Milliliter(s) Inj 12/07/2016 12/07/2016 In active nystatin 100,000 uni t/mL oral suspension RxNorm: 103379 4 Milliliter(s) PO QI D 12/07/2016 12/11/2016 In active Francia-D 12 Hour 60 mg-120 mg tablet,extended release RxNorm: 189417 1 Tablet(s) PO BID 12/07/2016 01/11/2017 Inactive lorazepam 1 mg tablet RxNorm: 538757 Tablet(s) TAKE TWO TABLETS BY MOUTH AT B EDTIME AND ONE TABLET DAILY NEEDED 12/07/2016 01/04/2017 Inactive (Response to an electronic controlled substance refill request - RxReferenceNumber: [id number]) albuterol sulfate 2. 5 mg/3 mL (0.083 %) solution for nebulization RxNorm: 129980 3 Milliliter(s) INH TID 11/29/2016 11/28/2016 Inactive prednisone 10 mg tablet RxNorm: 624398 Tablet(s) PO UD 11/29/2016 12/05/2016 Inactive 6,5,4,3,2,1 doxycycline hyclate 100 mg tablet RxNorm: 072012 1 Tablet(s) PO BID 11/29/2016 12/04/2016 Inactive albuterol sulfate 2. 5 mg/3 mL (0.083 %) solution for nebulization RxNorm: 934539 3 Milliliter(s) INH TID 11/29/2016 12/03/2016 Inactive Kenalog 40 mg/mL madhavi pension for injection RxNorm: 8330645 Milliliter(s) Inj 11/28/2016 11/28/2016 In active tramadol 50 mg tablet RxNorm: 631125 1 Tablet(s) PO Q4H as needed for pain 11/15/2016 12/06/2016 In active [SAVINGS FOR UNINSURED PATIENTS -- BIN:0 29593, PCN: ASPROD1, Group: [id number], ID# [id number], Process claim through [employer], for questions: . THIS IS NOT INSURANCE.] prednisone 20 mg tablet RxNorm: 212866 2 Tablet(s) PO daily 11/15/2016 11/19/2016 Inactive Advair Diskus 100 mc g-50 mcg/dose powder for inhalation RxNorm: 7145412 1 Puff(s) INH BID 11/15/2016 06/11/2017 Inactive ProAir HFA 90 mcg/ac tuation aerosol inhaler RxNorm: 421193 INHALE 1 TO 2 PUFFS F OUR TIMES A DAY NEEDED FOR ASTHMA 11/15/2016 04/13/2017 Inactive Zithromax Z-Linus 250 mg tablet RxNorm: 765309 1 Tablet(s) PO UD 11/15/2016 11/27/2016 Inactive Zyrtec 10 mg tablet RxNorm: 9048182 1 Tablet(s) PO daily 10/17/2016 11/15/2016 Inactive Keflex 500 mg capsule RxNorm: 257246 1 Capsule(s) PO TID 10/17/2016 10/23/2016 Inactive prednisone 10 mg tablet RxNorm: 638752 Tablet(s) PO UD 10/17/2016 11/28/2016 Inactive 6,5,4,3,2,1 tramadol 50 mg tablet RxNorm: 113828 1 Tablet(s) PO Q4H as needed for pain 09/28/2016 11/06/2016 In active [SAVINGS FOR UNINSURED PATIENTS -- BIN:0 42906, PCN: ASPROD1, Group: [id number], ID# [id number], Process claim through [employer], for questions: . THIS IS NOT INSURANCE.] ProAir HFA 90 mcg/ac tuation aerosol inhaler RxNorm: 141770 INHALE 1 TO 2 PUFFS F OUR TIMES A DAY NEEDED FOR ASTHMA 09/15/2016 11/14/2016 Inactive doxycycline hyclate 100 mg tablet RxNorm: 657478 1 Tablet(s) PO BID 09/15/2016 09/24/2016 Inactive doxycycline hyclate 100 mg tablet RxNorm: 457940 1 Tablet(s) PO BID 07/29/2016 08/07/2016 Inactive tramadol 50 mg tablet RxNorm: 953936 1 Tablet(s) PO Q4H as needed for pain 07/29/2016 09/06/2016 In active [SAVINGS FOR UNINSURED PATIENTS -- BIN:0 28266, PCN: ASPROD1, Group: [id number], ID# [id number], Process claim through [employer], for questions: . THIS IS NOT INSURANCE.] lorazepam 1 mg tablet RxNorm: 631666 Tablet(s) TAKE TWO TABLETS BY MOUTH AT B EDTIME AND ONE TABLET DAILY NEEDED 07/29/2016 10/26/2016 Inactive (Response to an electronic controlled substance refill request - RxReferenceNumber: [id number]) levothyroxine 125 mc g tablet RxNorm: 993227 1 Tablet(s) PO daily 06/29/2016 06/29/2016 Inactive levothyroxine 137 mc g tablet RxNorm: 481710 1 Tablet(s) PO daily 06/29/2016 12/25/2016 Inactive ketoconazole 2 % sha mpoo RxNorm: 400877 1 Application TOP BID 06/29/2016 07/03/2016 Inactive tramadol 50 mg tablet RxNorm: 660647 1 Tablet(s) PO Q4H as needed for pain 06/16/2016 07/25/2016 In active [SAVINGS FOR UNINSURED PATIENTS -- BIN:0 85214, PCN: ASPROD1, Group: [id number], ID# [id number], Process claim through [employer], for questions: . THIS IS NOT INSURANCE.] Bactroban 2 % topica l ointment RxNorm: 354599 APPLY TO AFFECTED ARE A(S) TWO TIMES A DAY 06/16/2016 04/16/2017 Inactive fluconazole 150 mg t ablet RxNorm: 007094 1 Tablet(s) PO daily 06/01/2016 06/05/2016 Inactive gentamicin 0.1 % top ical ointment RxNorm: 625865 1 Application TOP QID 05/12/2016 05/25/2016 In active metronidazole 500 mg tablet RxNorm: 708417 1 Tablet(s) PO TID 05/11/2016 05/24/2016 Inactive gentamicin 0.1 % top ical ointment RxNorm: 083141 1 Application TOP QID 05/11/2016 05/11/2016 In active doxycycline hyclate 100 mg tablet RxNorm: 754854 1 Tablet(s) PO BID 05/11/2016 05/24/2016 Inactive lorazepam 1 mg tablet RxNorm: 095131 Tablet(s) TAKE TWO TABLETS BY MOUTH AT B EDTIME AND ONE TABLET DAILY NEEDED 05/02/2016 07/28/2016 Inactive (Response to an electronic controlled substance refill request - RxReferenceNumber: [id number]) Diflucan 150 mg tablet RxNorm: 340815 1 Tablet(s) PO daily x5 days then 1 x we ekly x 4 weeks. 05/02/2016 04/10/2017 Inactive Diflucan 150 mg tablet RxNorm: 004966 1 Tablet(s) PO every other day 04/19/2016 04/28/2016 In active Diflucan 150 mg tablet RxNorm: 545045 1 Tablet(s) PO every other day 04/19/2016 04/18/2016 In active Diflucan 150 mg tablet RxNorm: 596894 1 Tablet(s) PO daily 04/05/2016 04/11/2016 Inactive mupirocin 2 % topica l ointment RxNorm: 946784 1 Application TOP BID 04/05/2016 05/04/2016 Inactive tramadol 50 mg tablet RxNorm: 435553 1 Tablet(s) PO Q4H as needed for pain 04/05/2016 05/14/2016 In active [SAVINGS FOR UNINSURED PATIENTS -- BIN:0 21997, PCN: ASPROD1, Group: [id number], ID# [id number], Process claim through [employer], for questions: . THIS IS NOT INSURANCE.] prednisone 10 mg tablet RxNorm: 841681 Tablet(s) PO UD 04/01/2016 09/26/2016 Inactive 6,5,4,3,2,1 levothyroxine 137 mc g tablet RxNorm: 206570 1 Tablet(s) PO daily 03/21/2016 03/20/2016 Inactive levothyroxine 137 mc g tablet RxNorm: 382207 1 Tablet(s) PO daily 03/21/2016 06/28/2016 Inactive Advair Diskus 100 mc g-50 mcg/dose powder for inhalation RxNorm: 3518950 1 Puff(s) INH BID 01/26/2016 05/24/2016 Inactive tramadol 50 mg tablet RxNorm: 726166 1 Tablet(s) PO Q4H as needed for pain 01/26/2016 03/05/2016 In active [SAVINGS FOR UNINSURED PATIENTS -- BIN:0 38443, PCN: ASPROD1, Group: [id number], ID# [id number], Process claim through [employer], for questions: . THIS IS NOT INSURANCE.] Bactroban 2 % topica l ointment RxNorm: 336902 APPLY TO AFFECTED ARE A(S) TWO TIMES A DAY 12/22/2015 12/31/2015 Inactive Bactrim DS 800 mg-16 0 mg tablet RxNorm: 603155 TAKE ONE TABLET BY [facility] TWICE A DAY 12/22/2015 04/18/2016 In active Bactrim DS 800 mg-16 0 mg tablet RxNorm: 808065 1 Tablet(s) PO BID 12/21/2015 12/30/2015 Inactive lisinopril 20 mg-hyd rochlorothiazide 25 mg tablet RxNorm: 780840 1 Tablet(s) PO daily 12/21/2015 06/17/2016 Inactive [SAVINGS FOR UNINSURED PATIENTS -- BIN:0 16747, PCN: ASPROD1, Group: [id number], ID# [id number], Process claim through [employer], for questions: . THIS IS NOT INSURANCE.] tramadol 50 mg tablet RxNorm: 674943 1 Tablet(s) PO Q4H as needed for pain 12/03/2015 01/11/2016 In active [SAVINGS FOR UNINSURED PATIENTS -- BIN:0 90213, PCN: ASPROD1, Group: [id number], ID# [id number], Process claim through [employer], for questions: . THIS IS NOT INSURANCE.] lorazepam 1 mg tablet RxNorm: 169825 Tablet(s) TAKE TWO TABLETS BY MOUTH AT B EDTIME AND ONE TABLET DAILY NEEDED 11/26/2015 06/27/2018 Inactive (Response to an electronic controlled substance refill request - RxReferenceNumber: [id number]) Bactrim DS 800 mg-16 0 mg tablet RxNorm: 616897 1 Tablet(s) PO BID 11/25/2015 12/04/2015 Inactive levothyroxine 150 mc g tablet RxNorm: 020221 1 Tablet(s) PO daily 11/25/2015 03/20/2016 Inactive Bactroban 2 % topica l ointment RxNorm: 133936 1 Application TOP BID 10/12/2015 10/21/2015 Inactive Bactrim DS 800 mg-16 0 mg tablet RxNorm: 142268 1 Tablet(s) PO BID 09/07/2015 09/06/2015 Inactive Bactrim DS 800 mg-16 0 mg tablet RxNorm: 146475 1 Tablet(s) PO BID 09/07/2015 09/16/2015 Inactive lorazepam 1 mg tablet RxNorm: 562178 Tablet(s) TAKE TWO TABLETS BY MOUTH AT B EDTIME AND ONE TABLET DAILY NEEDED 08/28/2015 11/24/2015 Inactive (Response to an electronic controlled substance refill request - RxReferenceNumber: [id number]) levothyroxine 175 mc g tablet RxNorm: 447053 1 Tablet(s) PO daily 08/24/2015 11/24/2015 Inactive tramadol 50 mg tablet RxNorm: 069588 1 Tablet(s) PO Q4H as needed for pain 08/24/2015 09/11/2017 In active [SAVINGS FOR UNINSURED PATIENTS -- BIN:0 89852, PCN: ASPROD1, Group: [id number], ID# [id number], Process claim through [employer], for questions: . THIS IS NOT INSURANCE.] lisinopril 20 mg-hyd rochlorothiazide 25 mg tablet RxNorm: 610004 1 Tablet(s) PO daily TAKE 1 TABLET BY MOUTH DAILY 08/24/2015 06/27/2018 Inactive ProAir HFA 90 mcg/ac tuation aerosol inhaler RxNorm: 148063 1-2 Puff(s) INH PRN I NHALE ONE TO TWO PUFFS BY MOUTH FOUR TIMES A DAY NEEDED FOR ASTHMA 08/24/2015 12/01/2015 In active ProAir HFA 90 mcg/ac tuation aerosol inhaler RxNorm: 8609008 INHALE ONE TO TWO PU FFS BY MOUTH FOUR TIMES A DAY NEEDED FOR ASTHMA 08/17/2015 08/23/2015 Inactive Advair Diskus 250 mc g-50 mcg/dose powder for inhalation RxNorm: 3139344 1 Puff(s) INH BID 07/20/2015 07/19/2015 Inactive Advair Diskus 250 mc g-50 mcg/dose powder for inhalation RxNorm: 4636782 1 Puff(s) INH BID 07/20/2015 11/16/2015 Inactive tramadol 50 mg tablet RxNorm: 273193 1 Tablet(s) PO Q4H as needed for pain 07/10/2015 08/17/2015 In active [SAVINGS FOR UNINSURED PATIENTS -- BIN:0 75933, PCN: ASPROD1, Group: AME, ID# [id number], Process claim through [employer], for questions: . THIS IS NOT INSURANCE.] Zithromax Z-Linus 250 mg tablet RxNorm: 760473 1 Tablet(s) PO UD 07/10/2015 01/18/2016 Inactive Keflex 500 mg capsule RxNorm: 105528 1 Capsule(s) PO TID 06/01/2015 06/07/2015 Inactive mupirocin 2 % topica l ointment RxNorm: 031524 1 Application TOP TID 06/01/2015 06/10/2015 Inactive lisinopril 20 mg-hyd rochlorothiazide 25 mg tablet RxNorm: 249385 TAKE 1 TABLET BY MOUT H DAILY 05/30/2015 08/23/2015 Inactive lisinopril 20 mg-hyd rochlorothiazide 25 mg tablet RxNorm: 787117 1 Tablet(s) PO daily 05/29/2015 11/24/2015 Inactive [SAVINGS FOR UNINSURED PATIENTS -- BIN:0 73446, PCN: ASPROD1, Group: [id number], ID# [id number], Process claim through [employer], for questions: . THIS IS NOT INSURANCE.] lorazepam 1 mg tablet RxNorm: 425491 Tablet(s) TAKE TWO TABLETS BY MOUTH AT B EDTIME AND ONE TABLET DAILY NEEDED 04/17/2015 07/13/2015 Inactive (Response to an electronic controlled substance refill request - RxReferenceNumber: [id number]) levothyroxine 200 mc g tablet RxNorm: 289574 1 Tablet(s) PO daily 03/12/2015 08/23/2015 Inactive [SAVINGS FOR UNINSURED PATIENTS -- BIN:0 86731, PCN: ASPROD1, Group: [id number], ID# [id number], Process claim through [employer], for questions: . THIS IS NOT INSURANCE.] lisinopril 20 mg-hyd rochlorothiazide 25 mg tablet RxNorm: 371455 1 Tablet(s) PO daily 03/11/2015 05/28/2015 Inactive [SAVINGS FOR UNINSURED PATIENTS -- BIN:0 92297, PCN: ASPROD1, Group: [id number], ID# [id number], Process claim through [employer], for questions: . THIS IS NOT INSURANCE.] levothyroxine 175 mc g tablet RxNorm: 597845 1 Tablet(s) PO daily 03/09/2015 03/11/2015 Inactive recheck blood in 3 months- THIS IS CORRE CT DOSAGE levothyroxine 175 mc g tablet RxNorm: 521598 1 Tablet(s) PO daily 03/09/2015 03/08/2015 Inactive recheck blood in 3 months levothyroxine 150 mc g tablet RxNorm: 651581 1 Tablet(s) PO daily 03/09/2015 03/08/2015 Inactive recheck blood in 3 months lorazepam 1 mg tablet RxNorm: 270559 TAKE TWO TABLETS BY MOUTH AT BEDTIME AND ONE TABLET DAILY NEEDED 12/25/2014 01/22/2015 Inactive (Response to an electronic controlled substance refill request - RxReferenceNumber: [id number]) lorazepam 1 mg tablet RxNorm: 053415 Tablet(s) TAKE TWO TABLETS BY MOUTH EVER Y NIGHT AT BEDTIME AND TAKE ONE TABLET BY MOUTH DAILY NEEDED 12/23/2014 12/25/2014 Inactive (Response to an electronic controlled [place] refill request - RxReferenceNumber: [id number]) levothyroxine 150 mc g tablet RxNorm: 226271 1 Tablet(s) PO daily 12/12/2014 03/08/2015 Inactive recheck blood in 3 months Diflucan 150 mg tablet RxNorm: 855474 1 Tablet(s) PO every other day (start af ter finished with Cipro) 11/17/2014 08/23/2015 Inactive tramadol 50 mg tablet RxNorm: 879910 1 Tablet(s) PO Q4H as needed for pain 11/10/2014 12/17/2014 In active [SAVINGS FOR UNINSURED PATIENTS -- BIN:0 26202, PCN: ASPROD1, Group: [id number], ID# [id number], Process claim through [employer], for questions: . THIS IS NOT INSURANCE.] Cipro 500 mg tablet RxNorm: 523092 1 Tablet(s) PO BID 10/23/2014 10/29/2014 Inactive Flagyl 500 mg tablet RxNorm: 045253 1 Tablet(s) PO TID 10/23/2014 10/29/2014 Inactive Cipro 500 mg tablet RxNorm: 985464 1 Tablet(s) PO BID 10/23/2014 10/22/2014 Inactive Flagyl 500 mg tablet RxNorm: 320694 1 Tablet(s) PO TID 10/23/2014 10/22/2014 Inactive Diflucan 150 mg tablet RxNorm: 685783 1 Tablet(s) PO every other day (start af ter finished with Cipro) 10/23/2014 11/16/2014 Inactive lorazepam 1 mg tablet RxNorm: 032856 TAKE TWO TABLETS BY MOUTH EVERY NIGHT AT BEDTIME AND TAKE ONE TABLET BY MOUTH DAILY NEEDED 10/21/2014 10/21/2014 Inactive (Response to an electronic controlled [place] bstance refill request - RxReferenceNumber: [id number]) lorazepam 1 mg tablet RxNorm: 801405 TAKE TWO TABLETS BY MOUTH EVERY NIGHT AT BEDTIME AND TAKE ONE TABLET BY MOUTH DAILY NEEDED 10/21/2014 11/18/2014 Inactive (Response to an electronic controlled [place] bstance refill request - RxReferenceNumber: [id number]) lorazepam 1 mg tablet RxNorm: 219710 Tablet(s) TAKE TWO TABLETS BY MOUTH AT B EDTIME, ALSO TAKE ONE TABLET BY MOUTH DAILY NEEDED 10/13/2014 10/21/2014 Inactive (Res ponse to an electronic controlled substance refill request - RxReferenceNumber: [id number]) ProAir HFA 90 mcg/ac tuation aerosol inhaler RxNorm: 3097785 1-2 inhale INH QID a s needed ASTHMA 10/13/2014 12/26/2014 Inactive ProAir HFA 90 mcg/ac tuation aerosol inhaler RxNorm: 5139965 1-2 inhale INH QID a s needed ASTHMA 09/18/2014 10/12/2014 Inactive meloxicam 7.5 mg tablet RxNorm: 040920 1 Tablet(s) PO daily 09/18/2014 03/10/2015 Inactive [SAVINGS FOR UNINSURED PATIENTS -- BIN:0 77059, PCN: ASPROD1, [id number], Process claim through [employer], for questions: . THIS IS NOT INSURANCE.] sulfamethoxazole 800 mg-trimethoprim 160 mg tablet RxNorm: 687322 1 Tablet(s) PO BID 09/18/2014 10/07/2014 Inactive levothyroxine 175 mc g tablet RxNorm: 052378 1 Tablet(s) PO daily 09/17/2014 12/11/2014 Inactive levothyroxine 175 mc g tablet RxNorm: 023312 1 Tablet(s) PO daily 09/17/2014 09/16/2014 Inactive lorazepam 1 mg tablet RxNorm: 435063 Tablet(s) TAKE TWO TABLETS BY MOUTH AT B EDTIME, ALSO TAKE ONE TABLET BY MOUTH DAILY NEEDED 09/12/2014 10/11/2014 Inactive (Res ponse to an electronic controlled substance refill request - RxReferenceNumber: [id number]) lorazepam 1 mg tablet RxNorm: 015801 TAKE TWO TABLETS BY MOUTH AT BEDTIME, AL SO TAKE ONE TABLET BY MOUTH DAILY NEEDED 09/08/2014 09/11/2014 Inactive (Res ponse to an electronic controlled substance refill request - RxReferenceNumber: [id number]) meloxicam 7.5 mg tablet RxNorm: 081888 1 Tablet(s) PO daily 09/01/2014 09/17/2014 Inactive [SAVINGS FOR UNINSURED PATIENTS -- BIN:0 72434, PCN: ASPROD1, Group: [id number], ID# [id number], Process claim through [employer], for questions: . THIS IS NOT INSURANCE.] lisinopril 20 mg-hyd rochlorothiazide 25 mg tablet RxNorm: 757063 1 Tablet(s) PO daily 09/01/2014 12/29/2014 Inactive [SAVINGS FOR UNINSURED PATIENTS -- BIN:0 38029, PCN: ASPROD1, Group: [facility], ID# [id number], Process claim through [employer], for questions: . THIS IS NOT INSURANCE.] tramadol 50 mg tablet RxNorm: 119516 1 Tablet(s) PO Q4H as needed for pain 08/20/2014 11/07/2014 In active [SAVINGS FOR UNINSURED PATIENTS -- BIN:0 70296, PCN: ASPROD1, Group: [id number], ID# [id number], Process claim through [employer], for questions: . THIS IS NOT INSURANCE.] meloxicam 7.5 mg tablet RxNorm: 319208 1 Tablet(s) PO daily 08/14/2014 08/31/2014 Inactive [SAVINGS FOR UNINSURED PATIENTS -- BIN:0 14016, PCN: ASPROD1, Group: AM[facility], ID# [id number], Process claim through [employer], for questions: . THIS IS NOT INSURANCE.] lorazepam 1 mg tablet RxNorm: 273551 2 Tablet(s) PO QHS and 1 tab qd PRN 08/01/2014 09/08/2014 In active [SAVINGS FOR UNINSURED PATIENTS -- BIN:0 38812, PCN: ASPROD1, Group: AM[facility], ID# [id number], Process claim through [employer], for questions: . THIS IS NOT INSURANCE.] levothyroxine 200 mc g tablet RxNorm: 787124 1 Tablet(s) PO daily 07/31/2014 09/16/2014 Inactive [SAVINGS FOR UNINSURED PATIENTS -- BIN:0 05963, PCN: ASPROD1, Group: AM[facility], ID# [id number], Process claim through [employer], for questions: . THIS IS NOT INSURANCE.] lorazepam 1 mg tablet RxNorm: 004374 2 Tablet(s) PO QHS and 1 tab qd PRN No Start Date 07/31/2014 Inactive Phenergan VC-Codeine oral RxNorm: 776653 oral No S tart Date 11/26/2017 Inactive meloxicam 7.5 mg tablet RxNorm: 011390 1 Tablet(s) PO daily No Start Date 08/13/2014 Inactive lisinopril 20 mg-hyd rochlorothiazide 25 mg tablet RxNorm: 865632 1 Tablet(s) PO daily No Start Date 08/31/2014 Inactive levothyroxine 200 mc g tablet RxNorm: 101746 1 Tablet(s) PO daily No Start Date 07/30/2014 Inactive Diflucan 150 mg tablet RxNorm: 969581 1 Tablet(s) PO every other day No Start Date 10/22/2014 Inactive Zithromax Z-Linus 250 mg tablet RxNorm: 825132 1 Tablet(s) PO UD No Start Date 07/09/2015 Inactive tramadol 50 mg tablet RxNorm: 585884 1 Tablet(s) PO Q6 as needed No Start Date 08/19/2014 Inactive Medication Administered Medication Codes Instruc tions Start Date Status Kenalog 40 mg/mL suspension for injection RxNorm: 5636761 1Milliliter 06/14/2017 N o longer Active Kenalog 40 mg/mL suspension for injection RxNorm: 5043582 1Milliliter 03/27/2017 N o longer Active Kenalog 40 mg/mL suspension for injection RxNorm: 9976927 Milliliter 12/07/2016 No longer Active Kenalog 40 mg/mL suspension for injection RxNorm: 9936629 Milliliter 11/28/2016 No longer Active Immunizations Vaccine [...] anemias ICD-10: D64. 89 ICD-9: 285.8 04/04/2018 Other specified hypothyroidism ICD-1 0: E03.8 ICD-9: 244.8 04/04/2018 Essential (primary) hypertension ICD -10: I10 ICD-9: 401.9 04/04/2018 Localized edema ICD-10: R60.0 ICD-9: 782.3 [...] 30.0 pg 04/04/2018 Cbc With Differential Ord2 Navarro% 10.9 % 04/04/2018 Cbc With Differential Ord2 [...] 1.42 K/ul 04/04/2018 Cbc With Differential Ord2 Navarro ABS# 0.6 K/ul 04/04/2018 Cbc With Differential Ord2 Eos ABS# 0.1 K/ul 04/04/2018 Cbc With Differential Ord2 Baso ABS# 0.0 K/ul 04/04/2018 Free T4 Ynp301 FREE T4 1.25 ng/dL 04/04/2018 Tsh Ord6 [...] 25.9 % 11/28/2017 Cbc With Differential Ord2 Navarro% 10.1 % 11/28/2017 Cbc With Differential Ord2 [...] 1.33 K/ul 11/28/2017 Cbc With Differential Ord2 [place] ABS# 0.5 K/ul 11/28/2017 Cbc With Differential Ord2 Eos ABS# 0.1 K/ul 11/28/2017 Cbc With Differential Ord2 Baso ABS# 0.0 K/ul 11/28/2017 Free T4 Umo903 FREE T4 1.43 ng/dL 11/28/2017 Lipid Ord30 CHOL 186 mg/dL 11/28/2017 Lipid Ord30 HDL 54.0 mg/dl 11/28/2017 Lipid Ord30 TRIG 59 mg/dL 11/28/2017 Lipid Ord30 LDL 120 mg/dL 11/28/2017 Lipid Ord30 C/HDL 3.4 Ratio 11/28/2017 Comp Metabolic Smj100 NA 141 mEq/L 11/28/2017 Comp Metabolic Hao661 K 4.0 mEq/L 11/28/2017 Comp Metabolic Myd988 CL 105 mEq/L 11/28/2017 Comp Metabolic Tla290 CO2 29.0 mEq/L 11/28/2017 Comp Metabolic Rap074 AN ION GAP 11 11/28/2017 Comp Metabolic Hir146 GL UCOSE 91 mg/dL 11/28/2017 Comp Metabolic Sue882 Cr eat 0.8 mg/dL 11/28/2017 Comp Metabolic Cgs830 eG FR 74 ml/min/1.73m2 11/28 Comp Metabolic Szs634 BUN 15 mg/dL 11/28/2017 Comp Metabolic Vtd898 B/ C Ratio 18.8 Ratio 11/28/2017 Comp Metabolic Ono868 CA LCIUM 8.6 mg/dL 11/28/2017 Comp Metabolic Djg421 AL K PHOS 76 U/L 11/28/2017 Comp Metabolic Etk771 T(SGOT) 10 U/L 11/28/2017 Comp Metabolic Iom985 AL T(SGPT) 8 U/L 11/28/2017 Comp Metabolic Iba626 BI LI T 0.5 mg/dL 11/28/2017 Comp Metabolic Ftg039 AL BUMIN 4.0 g/dL 11/28/2017 Comp Metabolic Hpa226 TP RO 6.1 g/dL 11/28/2017 Comp Metabolic Rny407 GL OB 2.1 g/dL 11/28/2017 Comp Metabolic Cka880 A/ G Ratio 1.9 Ratio 11/28/2017 Comp Metabolic Ntn120 Os mo 282 mOsmo 11/28/2017 Tsh Ord6 TSH (3rd IS) 3.31 uIU/mL 11/28/2017 Tsh Ord6 hTSH II 1.45 uIU/mL 03/27/2017 Free T4 Cxw343 FREE T4 1.23 ng/dL 03/27/2017 Comp Metabolic Zmq303 NA 140 mEq/L 09/28/2016 Comp Metabolic Few387 K 3.9 mEq/L 09/28/2016 Comp Metabolic Mse712 CL 104 mEq/L 09/28/2016 Comp Metabolic Chv126 CO2 28.0 mEq/L 09/28/2016 Comp Metabolic Zxz908 AN ION GAP 12 09/28/2016 Comp Metabolic Sqs642 GL UCOSE 97 mg/dL 09/28/2016 Comp Metabolic Jwx350 Cr eat 0.8 mg/dL 09/28/2016 Comp Metabolic Pdu919 eG FR 79 ml/min/1.73m2 09/28 Comp Metabolic Faj287 BUN 13 mg/dL 09/28/2016 Comp Metabolic Gas753 B/ C Ratio 17.1 Ratio 09/28/2016 Comp Metabolic Brd715 CA LCIUM 8.9 mg/dL 09/28/2016 Comp Metabolic Xiq913 AL K PHOS 100 U/L 09/28/2016 Comp Metabolic Ovl171 T(SGOT) 12 U/L 09/28/2016 Comp Metabolic Zfi549 AL T(SGPT) 9 U/L 09/28/2016 Comp Metabolic Nfk610 BI LI T 0.4 mg/dL 09/28/2016 Comp Metabolic Fub748 AL BUMIN 4.1 g/dL 09/28/2016 Comp Metabolic Qiy033 TP RO 6.6 g/dL 09/28/2016 Comp Metabolic Sfc840 GL OB 2.5 g/dL 09/28/2016 Comp Metabolic Rhl243 A/ G Ratio 1.6 Ratio 09/28/2016 Comp Metabolic Oqa084 Os mo 279 mOsmo 09/28/2016 Lipid Ord30 [...] 28.8 pg 09/28/2016 Cbc With Differential Ord2 Navarro% 7.2 % 09/28/2016 Cbc With Differential Ord2 [...] 1.41 K/ul 09/28/2016 Cbc With Differential Ord2 [place] ABS# 0.5 K/ul 09/28/2016 Cbc With Differential Ord2 Eos ABS# 0.2 K/ul 09/28/2016 Cbc With Differential Ord2 Baso ABS# 0.0 K/ul 09/28/2016 Free T4 Xsv966 FREE T4 1.43 ng/dL 09/28/2016 Tsh Ord6 hTSH II 0.52 uIU/mL 09/28/2016 Tsh Ord6 hTSH II 0.47 uIU/mL 06/16/2016 Comp Metabolic Cjn177 NA 139 mEq/L 06/16/2016 Comp Metabolic Vvu981 K 4.3 mEq/L 06/16/2016 Comp Metabolic Ujp467 CL 105 mEq/L 06/16/2016 Comp Metabolic Wzc020 CO2 30.0 mEq/L 06/16/2016 Comp Metabolic Bma298 AN ION GAP 8 06/16/2016 Comp Metabolic Dkr989 GL UCOSE 90 mg/dL 06/16/2016 Comp Metabolic Muj799 Cr eat 0.7 mg/dL 06/16/2016 Comp Metabolic Pmv259 eG FR 91 ml/min/1.73m2 06/16 Comp Metabolic Yho901 BUN 15 mg/dL 06/16/2016 Comp Metabolic Dxe069 B/ C Ratio 22.4 Ratio 06/16/2016 Comp Metabolic Dph925 CA LCIUM 8.8 mg/dL 06/16/2016 Comp Metabolic Nme046 AL K PHOS 79 U/L 06/16/2016 Comp Metabolic Zdu696 T(SGOT) 13 U/L 06/16/2016 Comp Metabolic Fdi924 AL T(SGPT) 11 U/L 06/16/2016 Comp Metabolic Puk051 BI LI T 0.5 mg/dL 06/16/2016 Comp Metabolic Bga132 AL BUMIN 3.9 g/dL 06/16/2016 Comp Metabolic Rtq295 TP RO 6.1 g/dL 06/16/2016 Comp Metabolic Ppo653 GL OB 2.2 g/dL 06/16/2016 Comp Metabolic Bwo169 A/ G Ratio 1.8 Ratio 06/16/2016 Comp Metabolic Cfg623 Os mo 278 mOsmo 06/16/2016 Lipid Ord30 [...] 28.9 pg 06/16/2016 Cbc With Differential Ord2 Navarro% 8.1 % 06/16/2016 Cbc With Differential Ord2 [...] 1.70 K/ul 06/16/2016 Cbc With Differential Ord2 [place] ABS# 0.4 K/ul 06/16/2016 Cbc With Differential Ord2 Eos ABS# 0.2 K/ul 06/16/2016 Cbc With Differential Ord2 Baso ABS# 0.0 K/ul 06/16/2016 Free T4 Raj629 FREE T4 1.42 ng/dL 06/16/2016 Free T4 Jdl988 FREE T4 1.34 ng/dL 03/04/2016 Tsh Ord6 hTSH II 0.56 uIU/mL 03/04/2016 Tsh Ord6 hTSH II 0.98 uIU/mL 01/27/2016 Free T4 Uth745 FREE T4 1.19 ng/dL 01/27/2016 Free T4 Vyp650 FREE T4 1.69 ng/dL 11/23/2015 Tsh Ord6 hTSH II 0.08 uIU/mL 11/23/2015 Lipid Ord30 CHOL 185 mg/dL 08/21/2015 Lipid Ord30 HDL 50.0 mg/dl 08/21/2015 Lipid Ord30 TRIG 88 mg/dL 08/21/2015 Lipid Ord30 LDL 117 mg/dL 08/21/2015 Lipid Ord30 C/HDL 3.7 Ratio 08/21/2015 Comp Metabolic Wcu482 NA 139 mEq/L 08/21/2015 Comp Metabolic Vut981 K 4.3 mEq/L 08/21/2015 Comp Metabolic Tfs119 CL 102 mEq/L 08/21/2015 Comp Metabolic Sqo305 CO2 27.0 mEq/L 08/21/2015 Comp Metabolic Nol273 AN ION GAP 14 08/21/2015 Comp Metabolic Duc465 GL UCOSE 89 mg/dL 08/21/2015 Comp Metabolic Lwd988 Cr eat 0.7 mg/dL 08/21/2015 Comp Metabolic Efc105 eG FR 85 ml/min/1.73m2 08/21 Comp Metabolic Dtc127 BUN 14 mg/dL 08/21/2015 Comp Metabolic Yjr120 B/ C Ratio 19.7 Ratio 08/21/2015 Comp Metabolic Iki766 CA LCIUM 9.5 mg/dL 08/21/2015 Comp Metabolic Svl819 AL K PHOS 123 U/L 08/21/2015 Comp Metabolic Ans222 T(SGOT) 13 U/L 08/21/2015 Comp Metabolic Cqu558 AL T(SGPT) 10 U/L 08/21/2015 Comp Metabolic Eqr145 BI LI T 0.4 mg/dL 08/21/2015 Comp Metabolic Ftc279 AL BUMIN 4.1 g/dL 08/21/2015 Comp Metabolic Qvr121 TP RO 6.8 g/dL 08/21/2015 Comp Metabolic Sri695 GL OB 2.7 g/dL 08/21/2015 Comp Metabolic Eco537 A/ G Ratio 1.5 Ratio 08/21/2015 Comp Metabolic Knt066 Os mo 277 mOsmo 08/21/2015 Free T4 Jts295 FREE T4 1.78 ng/dL 08/21/2015 Tsh Ord6 [...] Ord2 RDW 13.9 % 08/21/2015 Quick Strep Prg5402 Quic k Strep Negative 07/08/2015 Tsh Ord6 hTSH II 0.04 uIU/mL 05/20/2015 Free T4 Vgo933 FREE T4 1.50 ng/dL 05/20/2015 Review of [...] retractions 09/12/2017 None Full Exam - General 1995 Respiratory auscultation Overall: breath sounds clear bilaterally [...] heezes 10/17/2016 None Full Exam - General 1995 Constitutional general appearance Overall: well developed 09/28/2016 [...] masses 06/01/2015 None Full Exam - General 1995 Ears/Nose/Throat [...] Procedure Codes Date DESTRUCT PREMALG LESION CPT-4: 69203 01/19/2018 URINALYSIS NONAUTO W /O SCOPE CPT-4: 85430 09/12/2017 TRIAMCINOLONE ACET I [place] NOS CPT-4: J3301 06/14/2017 THER/PROPH/DIAG INJ SC/IM CPT-4: 10385 06/14/2017 PRESCRIP TRANSMIT A ERX SY CPT-4: G8553 06/14/2017 TRIAMCINOLONE ACET I [place] NOS CPT-4: J3301 03/27/2017 THER/PROPH/DIAG INJ SC/IM CPT-4: 01094 12/07/2016 TRIAMCINOLONE ACET I [place] NOS CPT-4: J3301 12/07/2016 THER/PROPH/DIAG INJ SC/IM CPT-4: 25697 11/28/2016 TRIAMCINOLONE ACET I [place] NOS CPT-4: J3301 11/28/2016 Vital Signs Date Vital 06/28/2018 Blood Pressure 1: 110/66 Code: 8480-6 BMI: 37.1 Code: 45968-2 Heart Rate 1: 73 bpm Height: 5'6" SpO2: 98% Weight: 230 lbs 04/04/2018 Blood Pressure 1: 128/76 Code: 8480-6 BMI: 37.9 Code: 33664-8 Heart Rate 1: 86 bpm Height: 5'6" SpO2: 98% Weight: 235 lbs 01/19/2018 Blood Pressure 1: 122/68 Code: 8480-6 Heart Rate 1: 78 bpm Height: 5'6" SpO2: 97% Weight: 01/05/2018 Blood Pressure 1: 138/78 Code: 8480-6 BMI: 38.4 Code: 84685-2 Heart Rate 1: 73 bpm Height: 5'6" SpO2: 95% Weight: 238 lbs 11/29/2017 Blood Pressure 1: 138/80 Code: 8480-6 BMI: 38.7 Code: 87702-1 Heart Rate 1: 71 bpm Height: 5'6" SpO2: 97% Weight: 240 lbs 10/25/2017 Blood Pressure 1: 136/72 Code: 8480-6 BMI: 38.7 Code: 91670-1 Heart Rate 1: 92 bpm Height: 5'6" SpO2: 98% Weight: 240 lbs 09/12/2017 Blood Pressure 1: 132/68 Code: 8480-6 BMI: 39.7 Code: 93391-7 Heart Rate 1: 76 bpm Height: 5'6" SpO2: 98% Weight: 246 lbs 06/14/2017 Blood Pressure 1: 130/80 Code: 8480-6 BMI: 39.4 Code: 71488-2 Heart Rate 1: 73 bpm Height: 5'6" SpO2: 95% Temperature: 36.9 (C ) / 98.5 (F) Weight: 244 lbs 05/10/2017 Blood Pressure 1: 128/68 Code: 8480-6 BMI: 38.7 Code: 63098-1 Heart Rate 1: 69 bpm Height: 5'6" SpO2: 97% Weight: 240 lbs 04/19/2017 Blood Pressure 1: 138/74 Code: 8480-6 BMI: 38.7 Code: 42821-8 Heart Rate 1: 73 bpm Height: 5'6" SpO2: 96% Weight: 240 lbs 03/27/2017 Blood Pressure 1: 142/84 Code: 8480-6 BMI: 38.7 Code: 71735-5 Heart Rate 1: 69 bpm Height: 5'6" SpO2: 97% Weight: 240 lbs 01/26/2017 Blood Pressure 1: 136/68 Code: 8480-6 Heart Rate 1: 64 bpm Height: 5'6" SpO2: 96% Weight: 12/07/2016 Blood Pressure 1: 130/72 Code: 8480-6 BMI: 39.7 Code: 01677-5 Heart Rate 1: 73 bpm Height: 5'6" SpO2: 93% Temperature: 36.8 (C ) / 98.3 (F) Weight: 246 lbs 11/28/2016 Blood Pressure 1: 138/60 Code: 8480-6 BMI: 39.7 Code: 75286-8 Heart Rate 1: 81 bpm Height: 5'6" SpO2: 97% Weight: 246 lbs 11/15/2016 Blood Pressure 1: 134/78 Code: 8480-6 BMI: 39.7 Code: 68857-2 Heart Rate 1: 75 bpm Height: 5'6" SpO2: 93% Temperature: 36.8 (C ) / 98.2 (F) Weight: 246 lbs 10/17/2016 Blood Pressure 1: 120/64 Code: 8480-6 BMI: 38.4 Code: 47232-6 Heart Rate 1: 69 bpm Height: 5'6" SpO2: 98% Temperature: 37.2 (C ) / 98.9 (F) Weight: 238 lbs 09/28/2016 Blood Pressure 1: 158/76 Code: 8480-6 BMI: 39.4 Code: 62972-1 Heart Rate 1: 71 bpm Height: 5'6" SpO2: 97% Weight: 244 lbs 06/29/2016 Blood Pressure 1: 124/60 Code: 8480-6 BMI: 38.7 Code: 42897-8 Heart Rate 1: 71 bpm Height: 5'6" SpO2: 98% Weight: 240 lbs 06/01/2016 Blood Pressure 1: 120/62 Code: 8480-6 BMI: 38.6 Code: 75583-3 Heart Rate 1: 76 bpm Height: 5'6" SpO2: 98% Weight: 239 lbs 05/11/2016 Blood Pressure 1: 140/80 Code: 8480-6 BMI: 38.1 Code: 00820-5 Heart Rate 1: 88 bpm Height: 5'6" SpO2: 97% Weight: 236 lbs 04/05/2016 Blood Pressure 1: 142/80 Code: 8480-6 BMI: 38.4 Code: 68151-1 Heart Rate 1: 96 bpm Height: 5'6" SpO2: 98% Weight: 238 lbs 04/01/2016 Blood Pressure 1: 136/88 Code: 8480-6 BMI: 39.2 Code: 53513-7 Heart Rate 1: 86 bpm Height: 5'6" SpO2: 96% Weight: 243 lbs 01/26/2016 Blood Pressure 1: 124/76 Code: 8480-6 BMI: 39.2 Code: 14284-3 Heart Rate 1: 76 bpm Height: 5'6" SpO2: 97% Weight: 243 lbs 12/21/2015 Blood Pressure 1: 120/64 Code: 8480-6 BMI: 37.0 Code: 99633-3 Heart Rate 1: 98 bpm Height: 5'6" SpO2: 97% Weight: 229 lbs 10/12/2015 Blood Pressure 1: 150/64 Code: 8480-6 BMI: 37.4 Code: 08602-7 Heart Rate 1: 70 bpm Height: 5'6" SpO2: 94% Weight: 232 lbs 08/24/2015 Blood Pressure 1: 128/74 Code: 8480-6 BMI: 36.8 Code: 70760-9 Heart Rate 1: 88 bpm Height: 5'6" SpO2: 94% Temperature: 36.8 (C ) / 98.3 (F) Weight: 228 lbs 06/01/2015 Blood Pressure 1: 134/68 Code: 8480-6 BMI: 36.0 Code: 70823-9 Heart Rate 1: 70 bpm Height: 5'6" SpO2: 98% Weight: 223 lbs 05/21/2015 Blood Pressure 1: 126/72 Code: 8480-6 BMI: 35.2 Code: 13071-0 Heart Rate 1: 63 bpm Height: 5'6" SpO2: 95% Weight: 218 lbs 5 oz 03/26/2015 Blood Pressure 1: 140/62 Code: 8480-6 BMI: 35.3 Code: 36197-7 Heart Rate 1: 68 bpm Height: 5'6" Weight: 219 lbs 03/11/2015 Blood Pressure 1: 130/80 Code: 8480-6 BMI: 34.9 Code: 68948-4 Heart Rate 1: 76 bpm Height: 5'6" Temperature: 37.1 (C ) / 98.7 (F) Weight: 216 lbs 12/11/2014 Blood Pressure 1: 134/62 Code: 8480-6 BMI: 34.2 Code: 69816-3 Heart Rate 1: 72 bpm Height: 5'6" Weight: 212 lbs 09/18/2014 Blood Pressure 1: 148/80 Code: 8480-6 BMI: 34.7 Code: 70175-2 Heart Rate 1: 68 bpm Height: 5'6" Weight: 215 lbs 07/31/2014 Blood Pressure 1: 124/72 Code: 8480-6 BMI: 36.2 Code: 89749-6 Heart Rate 1: 68 bpm Height: 5'6" [...] Severity mi ld 09/28/2016 None hypothyroid 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 jamee 09/28/2016 None hypothyroid Onset and Resolution [...] Severity mi ld 06/01/2016 None hypothyroid 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 jamee 06/01/2016 None hypothyroid Onset and Resolution [...] and Resolution resolved 04/05/2016 None hypothyroid 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 jamee 04/05/2016 None hypothyroid Onset and Resolution [...] a ssociated factors 10/12/2015 None hypothyroid 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 jamee 08/24/2015 None hypothyroid Onset and Resolution [...] Severity mod erate 06/01/2015 None hypothyroid 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 jamee 05/21/2015 None hypothyroid Onset of Symptom [...] Findings brittle nails 03/11/2015 None hypothyroid 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 jamee 03/11/2015 None hypothyroid Quality stab le [...] Encounters Encounter Performer Loca tion Codes Date ([id number]) [id number] EST. P [facility], LEVEL III Diagnosis: Acute recurrent maxillary sinusitis[ICD10: J01.01] Diagnosis: Other mucopurulent conjunctivitis, left eye[ICD10: H10.022] Diagnosis: Other allergic rhinitis[ICD10: J30.89] [facility] CPT-4: 14586 06/28/2018 04219 EST. PATIENT, LEVEL IV Diagnosis: Essential (primary) hypertension[ICD10: I10] Diagnosis: Other specified hypothyroidism[ICD10: E03.8] Diagnosis: Other specified anemias[ICD10: D64.89] Diagnosis: Localized edema[ICD10: R60.0] [facility] CPT-4: 88178 04/04/[id number]) [id number] EST. P [facility], LEVEL III Diagnosis: Mild persistent asthma, uncomplicated[ICD10: J45.30] Diagnosis: Actinic keratosis[ICD10: L57.0] [facility] CPT- 4: 74858 01/05/2018 ([id number]) Edgar s no charge Diagnosis: Essential (primary) hypertension[ICD10: I10] Damari Finn MD, [facility] CPT-4: 51328 12/12/2017 56716 EST. PATIENT, LEVEL III Diagnosis: Essential (primary) hypertension[ICD10: I10] Diagnosis: Atrophy of thyroid (acquired)[ICD10: E03.4] Diagnosis: Low back pain[ICD10: M54.5] Mishel Finn MD, [facility] CPT-4: 89196 11/29/2017 75897 EST. PATIENT, LEVEL III Diagnosis: Pain in left hip[ICD10: M25.552] Mishel Finn MD, [facility] CPT-4: 99001 10/25/2017 52639 EST. PATIENT, LEVEL IV Diagnosis: Localized edema[ICD10: R60.0] Mishel Finn MD, [facility] CPT-4: 42381 09/12/2017 60218 EST. PATIENT, LEVEL IV Diagnosis: Mild persistent asthma with (acute) exacerbation[ICD10: J45.31] Mishel Finn MD, [facility] CPT-4: 80105 06/14/2017 19268 EST. PATIENT, LEVEL III Diagnosis: Localized edema[ICD10: R60.0] Diagnosis: Mild persistent asthma, uncomplicated[ICD10: J45.30] Mishel Finn MD, [facility] CPT-4: 47697 05/10/2017 40879 EST. PATIENT, LEVEL III Diagnosis: Mild persistent asthma with (acute) exacerbation[ICD10: J45.31] Mishel Finn MD, [facility] CPT-4: 80054 04/19/2017 ([id number]) 04622 EST. P ATIENT, LEVEL IV Diagnosis: Contusion of left wrist, initial encounter[ICD10: S60.212A] Diagnosis: Hypothyroidism, unspecified[ICD10: E03.9] Diagnosis: Mild persistent asthma with (acute) exacerbation[ICD10: J45.31] Diagnosis: Low back pain[ICD10: M54.5] Lynn Finn MD, [facility] CPT- 4: 05942 03/27/2017 ([id number]) 21198 EST. P ATIENT, LEVEL IV Diagnosis: Essential (primary) hypertension[ICD10: I10] Diagnosis: Atrophy of thyroid (acquired)[ICD10: E03.4] Diagnosis: Low back pain[ICD10: M54.5] Damari Finn MD, [facility] CPT-4: 87786 01/26/2017 14355 EST. PATIENT, LEVEL III Diagnosis: Other allergic rhinitis[ICD10: J30.89] Diagnosis: Mild persistent asthma with (acute) exacerbation[ICD10: J45.31] Mishel Finn MD, [facility] CPT-4: 16438 12/07/2016 06417 EST. PATIENT, LEVEL III Diagnosis: Mild persistent asthma with (acute) exacerbation[ICD10: J45.31] Mishel Finn MD, [facility] CPT-4: 73160 11/28/2016 43523 EST. PATIENT, LEVEL III Diagnosis: Mild persistent asthma with (acute) exacerbation[ICD10: J45.31] Diagnosis: Acute bronchitis due to other specified organisms[ICD10: J20.8] Mishel Finn MD, [facility] CPT-4: 58298 11/15/2016 00990 EST. PATIENT, LEVEL IV Diagnosis: Other acute sinusitis[ICD10: J01.80] Diagnosis: Other allergic rhinitis[ICD10: J30.89] Diagnosis: Mild persistent asthma with (acute) exacerbation[ICD10: J45.31] Mishel Finn MD, [facility] CPT-4: 48085 10/17/2016 ([id number]) 70012 EST. P ATIENT, LEVEL IV Diagnosis: Essential (primary) hypertension[ICD10: I10] Diagnosis: Low back pain[ICD10: M54.5] Damari Finn MD, [facility] CPT-4: 60382 09/28/2016 68917 EST. PATIENT, LEVEL III Diagnosis: Tinea barbae and tinea capitis[ICD10: B35.0] Diagnosis: Other specified hypothyroidism[ICD10: E03.8] Mishel Finn MD, [facility] CPT-4: 62354 06/29/2016 ([id number]) 60241 EST. P ATIENT, LEVEL IV Diagnosis: Essential (primary) hypertension[ICD10: I10] Diagnosis: Atrophy of thyroid (acquired)[ICD10: E03.4] Diagnosis: Rash and other nonspecific skin eruption[ICD10: R21] Damari Finn MD, [facility] CPT-4: 04877 06/01/2016 ([id number]) 82111 EST. P ATIENT, LEVEL III Diagnosis: Cellulitis of groin[ICD10: L03.314] Damari Finn MD, [facility] CPT- 4: 16190 05/11/2016 ([id number]) 33927 EST. P ATIENT, LEVEL IV Diagnosis: Hypothyroidism, unspecified[ICD10: E03.9] Diagnosis: Candidiasis of vulva and vagina[ICD10: B37.3] Diagnosis: Essential (primary) hypertension[ICD10: I10] Diagnosis: Low back pain[ICD10: M54.5] Lynn Finn MD, [facility] CPT- 4: 67793 04/05/2016 67335 EST. PATIENT, LEVEL III Diagnosis: Other acute sinusitis[ICD10: J01.80] Diagnosis: Rash and other nonspecific skin eruption[ICD10: R21] Mishel Finn MD, [facility] CPT-4: 89998 04/01/2016 ([id number]) 01642 EST. P ATIENT, LEVEL IV Diagnosis: Essential (primary) hypertension[ICD10: I10] Diagnosis: Hypothyroidism, unspecified[ICD10: E03.9] Diagnosis: Low back pain[ICD10: M54.5] Diagnosis: Other obesity due to excess calories[ICD10: E66.09] Lynn Finn MD, [facility] CPT-4: 84706 01/26/2016 49194 EST. PATIENT, LEVEL IV Diagnosis: Essential (primary) hypertension[ICD10: I10] Diagnosis: Cutaneous abscess of face[ICD10: L02.01] Mishel Finn MD, [facility] CPT-4: 47183 12/21/2015 ([id number]) 29090 EST. P ATIENT, LEVEL III Diagnosis: Cutaneous abscess of groin[ICD10: L02.214] Diagnosis: Hypothyroidism, unspecified[ICD10: E03.9] Lynn Finn MD, [facility] CPT-4: 30824 10/12/2015 ([id number]) 39434 EST. P ATIENT, LEVEL III Diagnosis: Essential (primary) hypertension[ICD10: I10] Diagnosis: Hypothyroidism, unspecified[ICD10: E03.9] Diagnosis: Allergic rhinitis, unspecified[ICD10: J30.9] Lynn Finn MD, [facility] CPT-4: 46225 08/24/2015 ([id number]) 85168 EST. P ATIENT, LEVEL III Diagnosis: Skin infection[ICD9: 686.9] Damari Finn MD, [facility] CPT-4: 57577 06/01/2015 ([id number]) 80870 EST. P ATIENT, LEVEL III Diagnosis: Hypothyroidism[ICD9: 244.9] Diagnosis: ESSENTIAL HYPERTENSION[ICD9: 401.9] Damari Finn MD, [facility] CPT- 4: 36734 05/21/2015 ([id number]) 11193 EST. P ATIENT, LEVEL III Diagnosis: Hypothyroidism[ICD9: 244.9] Diagnosis: Fingernail abnormalities[ICD9: 703.8] Lynn Finn MD, [facility] CPT-4: 39597 03/26/2015 ([id number]) 93802 EST. P ATIENT, LEVEL II Diagnosis: Hypothyroidism[ICD9: 244.9] Maritza Finn MD, [facility] CPT-4: 04518 03/11/2015 ([id number]) 04488 EST. P ATIENT, LEVEL IV Diagnosis: ESSENTIAL HYPERTENSION[ICD9: 401.9] Diagnosis: Low back pain[ICD9: 724.2] Diagnosis: Hypothyroidism[ICD9: 244.9] Damari Finn MD, [facility] CPT-4: 31261 12/11/2014 ([id number]) 67662 EST. P ATIENT, LEVEL IV Diagnosis: Hidradenitis suppurativa[ICD9: 705.83] Diagnosis: ESSENTIAL HYPERTENSION[ICD9: 401.9] Diagnosis: Low back pain[ICD9: 724.2] Diagnosis: Lumbar spinal stenosis[ICD9: 724.02] Diagnosis: HYPOTHYROIDISM[ICD9: 244.9] [facility] CPT-4: 09647 09/18/2014 Office outpatient ne w 30 minutes Diagnosis: ESSENTIAL HYPERTENSION[ICD9: 401.9] Diagnosis: Hypothyroidism[ICD9: 244.9] Diagnosis: Low back pain[ICD9: 724.2] Lynn Finn MD, [facility] CPT- 4: 59437 07/31/2014 Plan of Care Planned Activity Notes [...] times daily. 06/28/2018 Appointment: Lynn Arenas WPtel: [address] [place], [place] [phone] (30 min) [facility] 06/28/2018 Patient Education: Patient Medication [...] to monitor. 04/04/2018 Appointment: Mishel Balderrama WPtel: [facility] (15 min) Moderate 04/04/2018 Patient Education: Patient Medication Summary Completed 04/04/2018 Visit Plan: Wound Instructions - Pt was instructed to keep the wound clean, wash with antibacterial soap, use triple antibiotic ointment, call if redness, pustular drainage, or any other acute concerns. 01/19/2018 Appointment: Lynn Arenas WPtel: [phone] (30 min) Complex 01/19/2018 Patient Education: Patient [...] concerns. 01/05/2018 Appointment: Lynn Arenas WPtel: [phone] [place] (30 min) Complex 01/05/2018 Patient Education: [...] not improve. 11/29/2017 Appointment: Mishel Balderrama WPtel: [facility] [place] (30 min) Complex 11/29/2017 Patient Education: [...] not improve. 10/25/2017 Appointment: Mishel Balderrama WPtel: [facility] [place] (30 min) Complex 10/25/2017 Patient Education: [...] Appointment: Mishel Balderrama WPtel: [phone] (30 min) Complex 09/12/2017 Patient Education: Patient Medication Summary Completed 09/12/2017 Appointment: Lynn Arenas WPtel: [phone] [phone] [place] (30 min) Complex 06/27/2017 Visit [...] changes. 06/14/2017 Appointment: Mishel Balderrama WPtel: [phone] [place] (15 min) Moderate 06/14/2017 Patient Education: [...] changes 05/10/2017 Appointment: Mishel Balderrama WPtel: [phone] [place] (15 min) Moderate 05/10/2017 Patient Education: [...] changes. 04/19/2017 Appointment: Mishel Balderrama WPtel: [phone] [place] (15 min) Moderate 04/19/2017 Patient Education: [...] on previous levels of control. Low back ntiy-lvetpkx-czqprt tramadol for prn use 03/27/2017 Appointment: Lynn Arenas WPtel: [phone] (30 min) Complex 03/27/2017 Patient Education: Patient [...] not improve. 01/26/2017 [phone] ([facility] min) Moderate 01/26/2017 Patient Education: [...] or concerns. 12/07/2016 Appointment: Mishel Balderrama WPtel: [facility] (15 min) Moderate 12/07/2016 Patient Education: [...] symptoms. 11/28/2016 Appointment: Mishel Balderrama WPtel: [phone] [facility] [place] (15 min) Moderate 11/28/2016 Patient Education: Patient Medication Summary Completed 11/28/2016 Appointment: Mishel Balderrama WPtel: [facility] (15 min) Moderate 11/24/2016 Visit Plan: [...] Appointment: Mishel Balderrama WPtel: [phone] (30 min) Complex 11/15/2016 Patient Education: Patient [...] acute changes. 10/17/2016 Appointment: Mishel Balderrama WPtel: [phone] (30 min) Complex 10/17/2016 Patient Education: Patient [...] tylenol 09/28/2016 App[facility]ment: [facility]el[phone] [place] (15 min) Moderate 09/28/2016 Patient Education: [...] of control. 06/29/2016 Appointment: Lynn Arenas WPtel: [phone] [place] (15 min) Moderate 06/29/2016 Patient Education: [...] for fluconazole 06/01/2016 Appointment: Damari Finn WPtel: [phone] [facility] [place] (15 min) Moderate 06/01/2016 Patient Education: Patient Medication Summary Completed 06/01/2016 Patient Education: Obesity Completed 06/01/2016 Visit Plan: Cellulitis - continue w ith oral antibiotics as previously directed, return to clinic as previously directed, call for acute change in symptoms, worsening redness, warmth, discharge. 05/11/2016 Appointment: AakashDamari sen [facility]Ptel[phone] (15 min) Moderate 05/11/2016 Patient [...] any concerns. 04/01/2016 Appointment: Lynn Arenas WPtel: [phone] [phone] [place] (30 min) Complex 04/01/2016 Patient Education: Patient Medication Summary Completed 04/01/2016 Patient Education: Obesity Completed 04/01/2016 Appointment: Lynn Arenas WPtel: [address] [place], [place] [phone] (30 min) Complex 03/29/2016 Visit Plan: Hypertension [...] levels of control. Low back pain-refill tramadol Htibt-qrwzhvxxbr-royrsmhp resolved 01/26/2016 Appointment: Lynn Arenas WPtel: [phone] (30 min) Complex 01/26/2016 Patient Education: Patient Medication Summary Completed 01/26/2016 Patient Education: Obesity Completed 01/26/2016 Care Plan: BMI Above normal followup RADHA F-MGMT EDUC & TRAIN 1 PT Pending 01/26/2016 Care Plan: Referral Order SNOMED-CT : [id number] Pending 01/07/2016 Appointment: Lynn Arenas WPtel: [facility]5 [phone] (15 min) Moderate 12/24/2015 Visit Plan: [...] nor improving. 06/01/2015 Appointment: Damari Finn WPtel: [facility] (15 min) Moderate 06/01/2015 Patient [...] refill tramadol 12/11/2014 Appointment: Damari Finn WPtel: [facility] [facility] follow up 12/11/2014 Patient Education: Patient Medication Summary Completed 12/11/2014 Patient Education: Hypertension Completed 12/11/2014 Appointment: Damari Finn WPtel: [phone] [facility] [facility] follow up 11/27/2014 Visit Plan: [...] her back MRI done at [facility] in [place] as that is where her specialist will be once we get her an appt with one of the local Neurosurgeons. 09/18/2014 Appointment: Damari Finn WPtel: [phone] [facility] Follow up 09/18/2014 Patient Education: Patient Medication [...] as scheduled 07/31/2014 Appointment: Lynn Arenas WPtel: [address] [place], [place] [phone] New Patient 07/31/2014 Patient Education: Patient Medication [...] to Dr. Daugherty. Will refer pt. . Cellulitis - oleg nue with oral antibiotics as previously directed, return to clinic as previously directed, call for acute change in symptoms, worsening redness, warmth, discharge. Declined Procedure: (27064) FLU VAC NO PRSV 4 JUSTYNA 3 YRS+; Declined Reason: refused Physical therapy at [facility] . Hypertension - well controlled [...] daily and repeat labs in 3 months restart lisinopril/h CTZ - this will help [...] levels of control. Low back pain-refill tramadol Tckbm-jtcqbwybuv-dechstjp resolved . Edema - pt has bee [...] further attempt to reduce peripheral edema. . Skin infection - r ecommended treatment with oral antibiotic and topical antibiotic. Pt to call if nor improving. Start zyrtec - one d aily Steroid shot today in office Mucinex as needed for congestion cough syrup Let me know if it is not improving. . Asthma Exacerbation - Asthma is a chronometer tester jamee problem for this patient, however, the [...] . Asthma Exacerbation - Asthma is a chronometer tester jamee problem for this patient, however, the [...] . Asthma Exacerbation - Asthma is a chronometer tester jamee problem for this patient, however, the [...] on previous levels of control. Low back kpmu-khiviet-fwfciv tramadol for prn use . Brittle fingernail [...] or with any questions or concerns. . Bronchitis - acute case of bronchitis [...] her back MRI done at [facility] in [place] as that is where her specialist [...]
--- OUTSIDE RECORDS SUMMARY | 2020-02-20 19:39 | XMS REPORT | Continuity of Care Document ---
Author Organization Unknown Address Unknown Phone Unavailable Allergies Active Description Code Type Severity Reaction Onset Reported/Identified Relationship to Patient Clinical Status Yes No Known Drug Allergies [id number] Drug Allergy Unknown N/A 04/26/2011 Medications There is no data. 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 5 DERANGEMENT MENISCUS NEC 12/19/2013 EKATERINA REIS MD Ot 724. 5 BACKACHE NOS 12/19/2013 EKATERINA REIS MD Ot 799. 3 DEBILITY NOS 12/19/2013 EKATERINA REIS MD Ot V57. 1 PHYSICAL THERAPY NEC 05/16/2014 CHADWICK REID MD Ot 565.1 ANAL FISTULA 07/16/2014 EKATERINA REIS MD Ot 244. 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 8 HYPOPOTASSEMIA 07/16/2014 EKATERINA REIS MD Ot 300. 00 ANXIETY STATE NOS 07/16/2014 EKATERINA REIS MD Ot 300. 16 FACTITIOUS DIS W PREDOMINANTLY PSYCHOLOG 07/16/2014 CHATO WHYTE, EKATERINA Thomas Ot 401. 9 HYPERTENSION NOS 07/16/2014 CHATO WHYTE, EKATERINA Thomas Ot 564. 00 UNSPEC CONSTIPATION 07/16/2014 EKATERINA REIS MD Ot 722. 6 DISC DEGENERATION NOS 07/16/2014 EKATERINA REIS MD Ot 724. 2 LUMBAGO 07/16/2014 EKATERINA REIS MD Ot 780. 52 INSOMNIA, UNSPECIFIED 07/16/2014 EKATERINA REIS MD Ot E944 .3 ADV EFF SALURETICS 07/16/2014 CHATO WHYTE, EKATERINA Thomas Ot V12. 79 PERSONAL HISTORY OTH SPEC DIGESTIVE SYST 07/16/2014 EKATERINA REIS MD Ot V15. 81 HX OF PAST NONCOMPLIANCE 08/01/2014 Ot V76.12 08/01/2014 Ot 722.52 08/01/2014 Ot 733.90 08/01/2014 Ot 793.80 08/01/2014 Ot V76.12 08/01/2014 Ot 610.4 08/01/2014 Ot V76.12 08/01/2014 RODNEY WHYTE, KLAUDIA Rangel Ot V76.12 08/01/2014 EKATERINA REIS MD Ot 733. 90 08/01/2014 JEANETTE WHYTE, CHADWICK Manrique Ot 565.1 08/01/2014 JEANETTE WHYTE, CHADWICK Manrique Ot 56 6 08/01/2014 JEANETTE WHYTE, CHADWICK Manrique Ot V72.63 08/01/2014 JEANETTE WHYTE, CHADWICK Manrique Ot V74.8 08/13/2014 Ot V76.12 08/13/2014 Ot 722.52 08/13/2014 Ot 733.90 08/13/2014 Ot 793.80 08/13/2014 Ot V76.12 08/13/2014 Ot 610.4 08/13/2014 Ot V76.12 08/13/2014 RODNEY WHYTE, KLAUDIA Rangel Ot V76.12 08/13/2014 EKATERINA REIS MD Ot 733. 90 08/13/2014 JEANETTE WHYTE, CHADWICK Manrique Ot 565.1 08/13/2014 JEANETTE WHYTE, CHADWICK Manrique Ot 56 6 08/13/2014 JEANETTE WHYTE, CHADWICK Manrique Ot V72.63 08/13/2014 JEANETTE WHYTE, CHADWICK Manrique Ot V74.8 08/14/2014 Ot V76.12 08/14/2014 Ot 722.52 08/14/2014 Ot 733.90 08/14/2014 Ot 793.80 08/14/2014 Ot V76.12 08/14/2014 Ot 610.4 08/14/2014 Ot V76.12 08/14/2014 RODNEY WHYTE, KLAUDIA Rangel Ot V76.12 08/14/2014 CHATO WHYTE, EKATERINA Thomas Ot 733. 90 08/14/2014 JEANETTE WHYTE, CHADWICK M Ot 565.1 08/14/2014 JEANETTE WHYTE, CHADWICK M Ot 56 6 08/14/2014 JEANETTE WHYTE, CHADWICK M Ot V72.63 08/14/2014 JEANETTE WHYTE, CHADWICK M Ot V74.8 08/15/2014 [facility] COORDINATOR Ot 724.2 08/15/2014 [facility] COORDINATOR Ot V57.1 08/21/2014 [facility] COORDINATOR Ot 724.2 08/21/2014 [facility] COORDINATOR Ot V57.1 09/16/2014 [facility] COORDINATOR Ot 724.2 LUMBAGO 09/16/2014 [facility] COORDINATOR Ot V57.1 PHYSICAL THERAPY NEC 09/19/2014 Ot 722.52 09/19/2014 Ot 733.90 09/19/2014 Ot 793.80 09/19/2014 Ot V76.12 09/19/2014 Ot 610.4 09/19/2014 Ot V76.12 09/19/2014 RODNEY WHYTE, KLAUDIA Rangel Ot V76.12 09/19/2014 CHATO WHYTE, EKATERINA Thomas Ot 733. 90 09/19/2014 JEANETTE WHYTE, CHADWICK M Ot 565.1 09/19/2014 JEANETTE WHYTE, CHADWICK M Ot 56 6 09/19/2014 JEANETTE WHYTE, CHADWICK M Ot V72.63 09/19/2014 JEANETTE WHYTE, CHADWICK M Ot V74.8 10/22/2014 VICKY WHYTE, KEVEN Mccormack Ot 244.9 10/22/2014 VICKY WHYTE, KEVEN Mccormack Ot 724.02 10/27/2014 VICKY WHYTE, KEVEN Mccormack Ot 244.9 10/27/2014 VICKY WHYTE, KEVEN Mccormack Ot 724.02 12/04/2014 Ot 244.9 12/04/2014 Ot 401.9 12/04/2014 Ot 724.2 12/04/2014 Ot V72.81 02/18/2015 Ot 244.9 02/18/2015 Ot 401.9 02/18/2015 Ot 724.2 02/18/2015 Ot V72.81 04/10/2015 [employer] DEVELOPER, MARIANELA J Ot 724.02 04/10/2015 [employer]EL[employer], MARIANELA Aaliyah Ot V57.1 04/10/2015 [place] [employer] DEV[employer], MARIANELA Aaliyah Ot 724.02 04/10/2015 [place] [employer] DEVELOPER, MARIANELA Aaliyah Ot V57.1 04/22/2015 [employer] DEVELOPER, MARIANELA Aaliyah Ot 724.02 SPINAL STENOSIS, LUMBAR REG, W/OUT NEURO 04/22/2015 [employer] DEVELOPER, MARIANELA Aaliyah Ot V57.1 PHYSICAL THERAPY NEC 04/13/2016 Ot V76.12 OTH SCREEN MAMMO- MALIGN NEOPLASM OF HCAVA 04/13/2016 KLAUDIA STEVENS MD Ot V76.12 OTH SCREEN MAMMO-MALIGN NEOPLASM OF [place] 04/13/2016 CHATO WHYTE, EKATERINA Thomas Ot 733. 90 BONE CARTILAGE DIS NOS 04/13/2016 JEANETTE WHYTE, CHADWICK Manrique Ot 565.1 ANAL FISTULA 04/13/2016 CHADWICK RIED MD Ot 56 6 ANAL RECTAL ABSCESS 04/13/2016 JEANETTE WHYTE, CHADWICK Manrique Ot V72.63 PRE-PROCEDURAL LABORATORY EXAMINATION 04/13/2016 JEANETTE WHYTE, CHADWICK Manrique Ot V74.8 SCREEN-BACTERIAL DIS NEC 04/13/2016 VICKY WHYTE, KEVEN Mccormack Ot 244.9 HYPOTHYROIDISM NOS 04/13/2016 KEVEN PERRY MD Ot 724.02 SPINAL STENOSIS, LUMBAR REG, W/OUT NEURO 04/13/2016 Ot 244.9 HYPO THYROIDISM NOS 04/13/2016 Ot 401.9 HYPE RTENSION NOS 04/13/2016 Ot 724.2 LUMBAGO 04/13/2016 Ot V72.81 FXSC-TZF-RIAVSLCUR CARDIOVASCULAR 04/13/2016 KLAUDIA STEVENS MD Ot Z12.31 ENCNTR SCREEN MAMMOGRAM FOR MALIGNANT NE 04/22/2016 RODNEY WHYTE, KLAUDIA Rangel Ot Z12.31 ENCNTR SCREEN MAMMOGRAM FOR MALIGNANT NE 05/06/2016 KLAUDIA STEVENS MD Ot Z12.31 ENCNTR SCREEN MAMMOGRAM FOR MALIGNANT NE 11/29/2016 Ot V76.12 OTH SCREEN MAMMO- MALIGN NEOPLASM OF [place]AVA 11/29/2016 KLAUDIA STEVENS MD Ot V76.12 OTH SCREEN MAMMO-MALIGN NEOPLASM OF [place] 11/29/2016 CHATO WHYTE, EKATERINA Thomas Ot 733. 90 BONE CARTILAGE DIS NOS 11/29/2016 JEANETTE WHYTE, CHADWICK Manrique Ot 565.1 ANAL FISTULA 11/29/2016 JEANETTE WHYTE, CHADWICK Manrique Ot 56 6 ANAL RECTAL ABSCESS 11/29/2016 JEANETTE WHYTE, CHADWICK Manrique Ot V72.63 PRE-PROCEDURAL LABORATORY EXAMINATION 11/29/2016 JEANETTE WHYTE, CHADWICK Manrique Ot V74.8 SCREEN-BACTERIAL DIS NEC 11/29/2016 VICKY WHYTE, KEVEN Mccormack Ot 244.9 HYPOTHYROIDISM NOS 11/29/2016 VICKY WHYTE, KEVEN Mccormack Ot 724.02 SPINAL STENOSIS, LUMBAR REG, W/OUT NEURO 11/29/2016 Ot 244.9 HYPO THYROIDISM NOS 11/29/2016 Ot 401.9 HYPE RTENSION NOS 11/29/2016 Ot 724.2 LUMBAGO 11/29/2016 Ot V72.81 EYVK-IKB-WWCSIHNZH CARDIOVASCULAR 11/29/2016 RODNEY WHYTE, KLUADIA Rangel Ot Z12.31 ENCNTR SCREEN MAMMOGRAM FOR MALIGNANT NE 11/30/2016 KATHY BALDERRAMA FOOD SAFETY MANAGER Ot R0 5 COUGH 11/30/2016 KATHY BALDERRAMA FOOD SAFETY MANAGER Ot R06.09 OTHER FORMS OF DYSPNEA 12/21/2016 KATHY BALDERRAMA FOOD SAFETY MANAGER Ot R0 5 COUGH 12/21/2016 KATHY BALDERRAMA FOOD SAFETY MANAGER Ot R06.09 OTHER FORMS OF DYSPNEA 12/30/2016 KATHY BALDERRAMA FOOD SAFETY MANAGER Ot R0 5 COUGH 12/30/2016 KATHY BALDERRAMA FOOD SAFETY MANAGER Ot R06.09 OTHER FORMS OF DYSPNEA 05/10/2017 Ot V76.12 OTH SCREEN MAMMO- MALIGN NEOPLASM OF CHAVA 05/10/2017 KLAUDIA STEVENS MD Ot V76.12 OTH SCREEN MAMMO-MALIGN NEOPLASM OF [place] 05/10/2017 CHATO WHYTE, EKATERINA Thomas Ot 733. 90 BONE CARTILAGE DIS NOS 05/10/2017 JEANETTE WHYTE, CHADWICK Manrique Ot 565.1 ANAL FISTULA 05/10/2017 JEANETTE WHYTE, CHADWICK Manrique Ot 56 6 ANAL RECTAL ABSCESS 05/10/2017 JEANETTE WHYTE, CHADWICK Manrique Ot V72.63 PRE-PROCEDURAL LABORATORY EXAMINATION 05/10/2017 JEANETTE WHYTE, CHADWICK Manrique Ot V74.8 SCREEN-BACTERIAL DIS NEC 05/10/2017 VICKY WHYTE, KEVEN Mccormack Ot 244.9 HYPOTHYROIDISM NOS 05/10/2017 KEVEN PERRY MD Ot 724.02 SPINAL STENOSIS, LUMBAR REG, W/OUT NEURO 05/10/2017 Ot 244.9 HYPO THYROIDISM NOS 05/10/2017 Ot 401.9 HYPE RTENSION NOS 05/10/2017 Ot 724.2 LUMBAGO 05/10/2017 Ot V72.81 SKLQ-AOS-RVMXDBCTR CARDIOVASCULAR 05/10/2017 KLAUDIA STEVENS MD Ot Z12.31 ENCNTR SCREEN MAMMOGRAM FOR MALIGNANT NE 05/10/2017 KATHY BALDERRAMA FOOD SAFETY MANAGER Ot R0 5 COUGH 05/10/2017 KATHY BALDERRAMA FOOD SAFETY MANAGER Ot R06.09 OTHER FORMS OF DYSPNEA 05/10/2017 KATHY BALDERRAMA FOOD SAFETY MANAGER Ot R60.0 LOCALIZED EDEMA 05/11/2017 KATHY BALDERRAMA FOOD SAFETY MANAGER Ot R22.41 LOCALIZED SWELLING, MASS AND LUMP, RIGHT 10/05/2017 KATHY BALDERRAMA FOOD SAFETY MANAGER Ot R22.41 LOCALIZED SWELLING, MASS AND LUMP, RIGHT 10/05/2017 KATHY BALDERRAMA FOOD SAFETY MANAGER Ot R22.41 LOCALIZED SWELLING, MASS AND LUMP, RIGHT 10/24/2017 KATHY BALDERRAMA FOOD SAFETY MANAGER Ot R22.41 LOCALIZED SWELLING, MASS AND LUMP, RIGHT 12/26/2017 Ot V76.12 OTH SCREEN MAMMO- MALIGN NEOPLASM OF [place]AVA 12/26/2017 KLAUDIA STEVENS MD Ot V76.12 OTH SCREEN MAMMO-MALIGN NEOPLASM OF [place]AVA 12/26/2017 EKATERINA REIS MD Ot 733. 90 BONE CARTILAGE DIS NOS 12/26/2017 JEANETTE WHYTE, CHADWICK Manrique Ot 565.1 ANAL FISTULA 12/26/2017 JEANETTE WHYTE, CHADWICK Manrique Ot 56 6 ANAL RECTAL ABSCESS 12/26/2017 JEANETTE WHYTE, CHADWICK Manrique Ot V72.63 PRE-PROCEDURAL LABORATORY EXAMINATION 12/26/2017 JEANETTE WHYTE, CHADWICK Manrique Ot V74.8 SCREEN-BACTERIAL DIS NEC 12/26/2017 VICKY WHYTE, KEVEN Mccormack Ot 244.9 HYPOTHYROIDISM NOS 12/26/2017 VICKY WHYTE, KEVEN Mccormack Ot 724.02 SPINAL STENOSIS, LUMBAR REG, W/OUT NEURO 12/26/2017 Ot 244.9 HYPO THYROIDISM NOS 12/26/2017 Ot 401.9 HYPE RTENSION NOS 12/26/2017 Ot 724.2 LUMBAGO 12/26/2017 Ot V72.81 PQRP-YMS-QKGGIYNOC CARDIOVASCULAR 12/26/2017 RODNEY WHYTE, KLAUDIA Rangel Ot Z12.31 ENCNTR SCREEN MAMMOGRAM FOR MALIGNANT NE 12/26/2017 KATHY BALDERRAMA FOOD SAFETY MANAGER Ot R0 5 COUGH 12/26/2017 KATHY BALDERRAMA FOOD SAFETY MANAGER Ot R06.09 OTHER FORMS OF DYSPNEA 12/26/2017 KATHY BALDERRAMA FOOD SAFETY MANAGER Ot R22.41 LOCALIZED SWELLING, MASS AND LUMP, RIGHT 12/26/2017 KATHY BALDERRAMA FOOD SAFETY MANAGER Ot Z12.31 ENCNTR SCREEN MAMMOGRAM FOR MALIGNANT NE 12/27/2017 KATHY BALDERRAMA FOOD SAFETY MANAGER Ot Z12.31 ENCNTR SCREEN MAMMOGRAM FOR MALIGNANT NE 01/16/2018 KATHY BALDERRAMA FOOD SAFETY MANAGER Ot Z12.31 ENCNTR SCREEN MAMMOGRAM FOR MALIGNANT NE 12/03/2018 [facility] COORDINATOR Ot M54.5 LOW BACK PAIN 12/26/2018 [facility] COORDINATOR Ot M54.5 LOW BACK PAIN 01/11/2019 [facility] [employer] COORDINATOR Ot M54.5 LOW BACK PAIN 11/08/2019 W E03.9 Hypo thyroidism, unspecified Lynn Arenas 11/08/2019 W I10 Essent ial (primary) hypertension Lynn Arenas 01/24/2020 W L02.212 Ab scess of back Kathy Balderrama 01/24/2020 W L02.212 Ab scess of back Kathy Balderrama 01/24/2020 W L02.212 Ab scess of back Kathy Balderrama 01/27/2020 W L02.212 Ab scess of back Kathy Balderrama 01/27/2020 W L02.212 Ab scess of back Tacos, Kathy 01/27/2020 W L02.212 Ab scess of back Tacos, Kathy 01/27/2020 W L02.212 Ab scess of back Tacos, Kathy 01/27/2020 W L02.212 Ab scess of back Tacos, Kathy 01/28/2020 KATHY BALDERRAMA FOOD SAFETY MANAGER Ot L02.91 CUTANEOUS ABSCESS, UNSPECIFIED 01/29/2020 KATHY BALDERRAMA FOOD SAFETY MANAGER Ot L02.91 CUTANEOUS ABSCESS, UNSPECIFIED 01/29/2020 KATHY BALDERRAMA FOOD SAFETY MANAGER Ot L02.91 CUTANEOUS ABSCESS, UNSPECIFIED 01/30/2020 W E03.9 Hypo thyroidism, unspecified Arenas, Lynn 01/30/2020 W 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 Presley Arenasie 01/30/2020 W J45.30 Mil d persistent asthma, uncomplicated Arenas, Lynn 01/30/2020 W L02.212 Ab scess of back Arenas, Lynn 01/31/2020 W L02.212 Ab scess of back Arenas, Lynn 02/04/2020 W E03.9 Hypo thyroidism, unspecified Arenas, Lynn 02/04/2020 W 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 Results Test Result Range Complete blood count (CBC) with automate d white blood cell (WBC) differential - 02/18/20 05:46 Blood leukocytes automated count (number/volume) 7.6 10*3/uL 4.3-11.0 Blood erythrocytes automated count (number/volume) 4.37 10*6/uL 4.35-5.85 Venous blood hemoglobin measurement (mass/volume) 13.4 g/dL 11.5-16.0 Blood hematocrit (volume fraction) 39 % 35-52 Automated erythrocyte mean corpuscular volume 90 [ foz_us] 80-99 Automated erythrocyte mean corpuscular h emoglobin (mass per erythrocyte) 31 pg 25-34 Automated erythrocyte mean corpuscular h emoglobin concentration measurement (mass/volume) 34 g/dL 32-36 Automated erythrocyte distribution width ratio 13. 4 % 10.0- 14.5 Automated blood platelet count (count/volume) 229 10*3/uL 130-400 Automated blood platelet mean volume measurement 11.5 [foz_us] 7.4-10.4 Automated blood neutrophils/100 leukocytes 83 % 42-75 Automated blood lymphocytes/100 leukocytes 11 % 12-44 Blood monocytes/100 leukocytes 5 % 0-12 Automated blood eosinophils/100 leukocytes 0 % 0-10 Automated blood basophils/100 leukocytes 0 % 0-10 Blood neutrophils automated count (number/volume) 6.3 10*3 1.8-7.8 Blood lymphocytes automated count (number/volume) 0.8 10*3 1.0-4.0 Blood monocytes automated count (number/volume) 0. 4 10*3 0.0-1.0 Automated eosinophil count 0.0 10*3/uL 0 .0-0.3 Automated blood basophil count (count/volume) 0.0 10*3/uL 0.0-0.1 Comprehensive metabolic panel - 02/18/20 05:46 Serum or plasma sodium measurement (moles/volume) 142 mmol/L 135-145 Serum or plasma potassium measurement (moles/volume) 3.5 mmol/L 3.6-5.0 Serum or plasma chloride measurement (moles/volume) 104 mmol/L 98-107 Carbon dioxide 25 mmol/L 21-32 Serum or plasma anion gap determination (moles/volume) 13 mmol/L 5-14 Serum or plasma urea nitrogen measurement (mass/volume ) 11 mg/dL 7-18 Serum or plasma creatinine measurement (mass/volume) 0.86 mg/dL 0.60-1.30 Serum or plasma urea nitrogen/creatinine mass ratio 13 NRG Serum or plasma creatinine measurement w ith calculation of estimated glomerular filtration rate > NRG Serum or plasma glucose measurement (mass/volume) 141 mg/dL 70-105 Serum or plasma calcium measurement (mass/volume) 9.7 mg/dL 8.5-10.1 Serum or plasma total bilirubin measurement (mass/volu me) 0.6 mg/dL 0.1-1.0 Serum or plasma alkaline phosphatase bakari surement (enzymatic activity/volume) 88 U/L 40-136 Serum or plasma aspartate aminotransfera se measurement (enzymatic activity/volume) 16 U/L 5-34 Serum or plasma alanine aminotransferase measurement (enzymatic activity/volume) 18 U/L 0-55 Serum or plasma protein measurement (mass/volume) 7.3 g/dL 6.4-8.2 Serum or plasma albumin measurement (mass/volume) 4.5 g/dL 3.2-4.5 CALCIUM CORRECTED 9.3 mg/dL 8.5-10.1 Serum or plasma troponin i.cardiac measu rement (mass/volume) - 02/18/20 05:46 Serum or plasma troponin i.cardiac measurement (mass/v olume) < ng/mL <0.028 THYROID STIMULATING HORMONE - 02/18/20 0 5:46 THYROID STIMULATING HORMONE 0.81 u[iU]/mL 0.35-4.94 Serum or plasma thyroxine (T4) free caroline urement (mass/volume) - 02/18/20 05:46 Serum or plasma thyroxine (T4) free measurement (mass/ volume) 1.09 ng/dL 0.70-1.48 Serum or plasma ethanol measurement (mas s/volume) - 02/18/20 05:46 Serum or plasma ethanol measurement (mass/volume) < mg/dL <10 Complete urinalysis with reflex to cultu re - 02/18/20 06:45 Urine color determination YELLOW NRG Urine clarity determination CLEAR NR G Urine pH measurement by test strip 5.5 5-9 Specific gravity of urine by test strip 1.025 1.016-1.022 Urine protein assay by test strip, semi-quantitative NEGATIVE NEGATIVE Urine glucose detection by automated test strip NE GATIVE NEGATIVE Erythrocytes detection in urine sediment by light micr oscopy NEGATIVE NEGATIVE Urine ketones detection by automated test strip NE GATIVE NEGATIVE Urine nitrite detection by test strip NEGATIVE NEGATIVE Urine total bilirubin detection by test strip NEGA TIVE NEGATIVE Urine urobilinogen measurement by automated test strip (mass/volume) 0.2 mg/dL < = 1.0 Urine leukocyte esterase detection by dipstick TRA CE NEGATIVE Automated urine sediment erythrocyte cou nt by microscopy (number/high power field) NONE NRG Automated urine sediment leukocyte count by microscopy (number/high power field) [HPF] NRG Bacteria detection in urine sediment by light microsco py TRACE NRG Squamous epithelial cells detection in u rine sediment by light microscopy 10-25 NRG Crystals detection in urine sediment by light microsco py NONE NRG Casts detection in urine sediment by light microscopy NONE NRG Mucus detection in urine sediment by light microscopy NEGATIVE NRG Complete urinalysis with reflex to culture NO NRG Urine drug screening test - 02/18/20 06: 45 Urine phencyclidine detection by screening method NEGATIVE NEGATIVE Urine benzodiazepines detection by screening method POSITIVE NEGATIVE Urine cocaine detection NEGATIVE NEGATI VE Urine amphetamines detection by screening method N EGATIVE NEGATIVE Urine methamphetamine detection by screening method NEGATIVE NEGATIVE Urine cannabinoids detection by screening method N EGATIVE NEGATIVE Urine opiates detection by screening method NEGATI VE NEGATIVE Urine barbiturates detection NEGATIVE N EGATIVE Screening urine tricyclic antidepressants detection NEGATIVE NEGATIVE Urine methadone detection by screening method NEGA TIVE NEGATIVE Urine oxycodone detection NEGATIVE NEGA TIVE Urine propoxyphene detection NEGATIVE N EGATIVE Automated blood complete blood count (he mogram) panel - 02/19/20 05:17 Blood leukocytes automated count (number/volume) 4.9 10*3/uL 4.3-11.0 Blood erythrocytes automated count (number/volume) 4.06 10*6/uL 4.35-5.85 Venous blood hemoglobin measurement (mass/volume) 12.1 g/dL 11.5-16.0 Blood hematocrit (volume fraction) 37 % 35-52 Automated erythrocyte mean corpuscular volume 91 [ foz_us] 80-99 Automated erythrocyte mean corpuscular h emoglobin (mass per erythrocyte) 30 pg 25-34 Automated erythrocyte mean corpuscular h emoglobin concentration measurement (mass/volume) 33 g/dL 32-36 Automated erythrocyte distribution width ratio 13. 7 % 10.0- 14.5 Automated blood platelet count (count/volume) 220 10*3/uL 130-400 Automated blood platelet mean volume measurement 11.7 [foz_us] 7.4-10.4 Comprehensive metabolic panel - 02/19/20 05:17 Serum or plasma sodium measurement (moles/volume) 144 mmol/L 135-145 Serum or plasma potassium measurement (moles/volume) 3.8 mmol/L 3.6-5.0 Serum or plasma chloride measurement (moles/volume) 108 mmol/L 98-107 Carbon dioxide 25 mmol/L 21-32 Serum or plasma anion gap determination (moles/volume) 11 mmol/L 5-14 Serum or plasma urea nitrogen measurement (mass/volume ) 13 mg/dL 7-18 Serum or plasma creatinine measurement (mass/volume) 0.87 mg/dL 0.60-1.30 Serum or plasma urea nitrogen/creatinine mass ratio 15 NRG Serum or plasma creatinine measurement w ith calculation of estimated glomerular filtration rate > NRG Serum or plasma glucose measurement (mass/volume) 94 mg/dL 70-105 Serum or plasma calcium measurement (mass/volume) 8.9 mg/dL 8.5-10.1 Serum or plasma total bilirubin measurement (mass/volu me) 0.5 mg/dL 0.1-1.0 Serum or plasma alkaline phosphatase bakari surement (enzymatic activity/volume) 78 U/L 40-136 Serum or plasma aspartate aminotransfera se measurement (enzymatic activity/volume) 13 U/L 5-34 Serum or plasma alanine aminotransferase measurement (enzymatic activity/volume) 13 U/L 0-55 Serum or plasma protein measurement (mass/volume) 6.0 g/dL 6.4-8.2 Serum or plasma albumin measurement (mass/volume) 3.8 g/dL 3.2-4.5 CALCIUM CORRECTED 9.1 mg/dL 8.5-10.1 Encounters ACCT No. Visit Date/Time Discharge Status Pt. Type Provider Facility Loc./Unit Complaint [id number] 06/26/2017 23:22:59 06/26/2017 23:59:5 9 CLS Outpatient [id number] 02/18/2020 08:35:00 020 15:40:00 DIS Inpatient KEVEN PERRY MD [facility] 4TH HYPERTENSIVE URGENCY [id number] 01/26/2020 09:18:00 23:59:59 CLS Outpatient KATHY BALDERRAMA APRN [facility] SDC CUTANEAUS ABSCESS [id number] 08/01/2019 13:28:00 019 23:59:59 CLS Preadmit LYNN ARENAS [facility] RAD SCREENING [id number] 12/13/2018 12:44:00 019 13:24:00 DIS Outpatient LYNN ARENAS [facility] REHAB LOW BACK PAIN [id number] 12/26/2017 10:17:00 018 23:59:59 CLS Outpatient KATHY BALDERRAMA APRN [facility] RAD SCREENING [id number] 10/25/2017 12:25:00 018 23:59:59 CLS Preadmit KATHY BALDERRAMA FOOD SAFETY MANAGER [facility] RAD SCREENING [id number] 05/10/2017 13:38:00 017 23:59:59 CLS Outpatient KATHY BALDERRAMA APRN [facility] RAD RIGHT LEG EDEMA [id number] 11/29/2016 15:30:00 017 23:59:59 CLS Outpatient KATHY BALDERRAMA APRN [facility] RAD COUGH [id number] 04/13/2016 11:05:00 016 23:59:59 CLS Outpatient RODNEY WHYTE, KLAUDIA Rangel [facility] RAD ROUTINE [id number] 04/22/2015 14:26:00 015 16:03:00 DIS Outpatient WIN SMITH[facility]EL[facility]LUM [facility] SPINAL STENOSIS;NEUROGENIC CAUD [id number] 09/23/2014 09:54:00 015 23:59:59 CLS Outpatient KEVEN PERRY MD [facility] RAD L4 L5 SEV[address] ENOSIS [id number] 09/22/2014 14:17:00 015 23:59:59 CLS Outpatient KEVEN PERRY MD [facility] RAD HYPOTHRYOIDISM [id number] 09/16/2014 15:15:00 015 15:52:00 DIS Outpatient LYNN ARENAS [facility] REHAB LBP [id number] 07/13/2014 18:44:00 014 12:58:00 DIS Inpatient CHATO WHYTE, EKATERINA Thomas [facility] 4TH PROFOUND HYPOTHROIDISM UTI NON COMPLIANCY HTN [id number] 05/16/2014 07:21:00 11:50:00 DIS Outpatient CHADWICK REID MD [facility] SDC PERIANAL ABSCESS [id number] 05/14/2014 09:44:00 23:59:59 CLS Outpatient CHADWICK REID MD [facility] PREOP PERIANAL ABSCESS [id number] 04/10/2014 09:59:00 23:59:59 CLS Outpatient EKATERINA REIS MD [facility] RAD OSTEOPENIA [id number] 04/02/2014 08:21:00 23:59:59 CLS Preadmit EKATERINA REIS MD [facility] RAD OSTEOPENIA [id number] 02/19/2014 13:47:00 23:59:59 CLS Outpatient KLAUDIA STEVENS MD [facility] RAD SCREENING [id number] 12/02/2013 13:21:00 16:36:00 DIS Outpatient EKATERINA REIS MD [facility] REHAB MECHANICAL LBP;DECONDIT IONING [id number] 11/06/2014 07:31:00 Document Registration [id number] 12/26/2012 09:42:00 Document Registration [id number] 12/17/2012 09:34:00 Document Registration [id number] 02/16/2012 10:06:00 Document Registration [id number] 04/26/2011 07:01:00 Document Registration [id number] 04/05/2010 14:26:00 Document Registration [id number] 03/23/2010 10:39:00 Document Registration [id number] 11/19/2009 15:00:00 Document Registration [id number] 10/23/2009 09:30:00 Document Registration [id number] 03/19/2009 10:25:00 Document Registration
--- OUTSIDE RECORDS SUMMARY | 2020-02-20 19:39 | XMS REPORT | CCD ---
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 Unknown Has never used illegal drugs 014 Allergies, Adverse Reactions, Alerts Substance Reaction Codes Entered Date Inactivated Date Status bactrim hives, rash RxNorm: 205978 04/05/2016 No Inactive Date Active Past Medical History Illness Codes Condition Status Onset Date Resolved Date Localized edema ICD-9: 782.3 ICD-10: R60.0 Active 05/10/2017 Unknown Mild persistent asth ma with (acute) exacerbation ICD-9: 493.12 ICD-10: J45.31 Active 10/17/2016 Unknown Mild persistent asth ma, uncomplicated ICD-9: 493.90 ICD-10: J45.30 Active 05/10/2017 Unknown Asthma Unknown Active 05/10/2017 Unknow n Contusion of left wr ist, initial encounter ICD-9: 923.21 ICD-10: S60.212A Active 03/27/2017 Unknown Hypothyroidism, unsp ecified ICD-9: 244.9 ICD-10: E03.9 Active 07/31/2014 Unknown Low back pain ICD-9: 724.2 ICD-10: M54.5 Active 04/04/2016 Unknown Atrophy of thyroid ( acquired) ICD-9: [...] Condition Codes Effectiv e Dates Condition Status Localized edema ICD-9: 782.3 ICD-10: R60.0 05/10/2017 Active Mild persistent asth ma with (acute) exacerbation ICD-9: 493.12 ICD-10: J45.31 10/17/2016 Active Mild persistent asth ma, uncomplicated ICD-9: 493.90 ICD-10: J45.30 05/10/2017 Active Asthma Unknown 05/10/2017 Active Contusion of left wr ist, initial encounter ICD-9: 923.21 ICD-10: S60.212A 03/27/2017 Active Hypothyroidism, unsp ecified ICD-9: 244.9 ICD-10: E03.9 07/31/2014 Active Low back pain ICD-9: 724.2 ICD-10: M54.5 04/04/2016 Active Atrophy of thyroid ( acquired) ICD-9: [...] Fill Instructions tramadol 50 mg tablet RxNorm: 502691 1 Tablet(s) PO Q4 PRN as needed for pain 10/06/2017 11/14/2017 Ac tive lorazepam 1 mg tablet RxNorm: 618228 Tablet(s) TAKE TWO TABLETS BY MOUTH AT B EDTIME NEEDED FOR INSOMNIA AND ONE TABLET DAILY NEEDED ANXIETY 09/12/2017 12/09/2017 Active tramadol 50 mg tablet RxNorm: 148939 1 Tablet(s) PO Q4 PRN as needed for pain 09/12/2017 10/05/2017 In active tramadol 50 mg tablet RxNorm: 299295 1 Tablet(s) PO Q4 PRN as needed for pain 08/15/2017 09/11/2017 In active tramadol 50 mg tablet RxNorm: 774161 1 Tablet(s) PO Q4 PRN as needed for pain 06/29/2017 08/07/2017 In active ProAir HFA 90 mcg/ac tuation aerosol inhaler RxNorm: 305031 INHALE 1 TO 2 PUFFS F OUR TIMES A DAY NEEDED FOR ASTHMA 06/14/2017 11/10/2017 Active prednisone 20 mg tablet RxNorm: 697259 1 Tablet(s) PO BID x 2 days, then 1 pill daily x 3 days, then 1/2 pill every other day x 3 doses. 06/14/2017 09/11/2017 Inactive Kenalog 40 mg/mL madhavi pension for injection RxNorm: 8358810 1 Milliliter(s) Inj 06/14/2017 06/14/2017 In active Zyrtec 10 mg tablet RxNorm: 5295276 1 Tablet(s) PO daily 06/14/2017 07/13/2017 Inactive tramadol 50 mg tablet RxNorm: 106687 1 Tablet(s) PO Q4 PRN as needed for pain 06/08/2017 06/27/2017 In active [SAVINGS FOR UNINSURED PATIENTS -- BIN:0 47570, PCN: ASPROD1, Group: AME08, ID# [id number], Process claim through [employer], for questions: . THIS IS NOT INSURANCE.] tramadol 50 mg tablet RxNorm: 237553 1 Tablet(s) PO Q4 PRN as needed for pain 05/16/2017 06/04/2017 In active [SAVINGS FOR UNINSURED PATIENTS -- BIN:0 19864, PCN: ASPROD1, Group: AME08, ID# [id number], Process claim through [employer], for questions: . THIS IS NOT INSURANCE.] lorazepam 1 mg tablet RxNorm: 105412 Tablet(s) TAKE TWO TABLETS BY MOUTH AT B EDTIME NEEDED FOR INSOMNIA AND ONE TABLET DAILY NEEDED ANXIETY 05/16/2017 08/13/2017 Inactive Lasix 20 mg tablet RxNorm: 1 Tablet(s) PO daily 05/10/2017 05/09/2017 Inactive Lasix 20 mg tablet RxNorm: 1 Tablet(s) PO daily 05/10/2017 05/12/2017 Inactive potassium chloride E R 10 mEq tablet,extended release RxNorm: 593665 1 Tablet(s) PO daily while on the lasix 05/10/2017 05/09/2017 Inactive potassium chloride E R 10 mEq tablet,extended release RxNorm: 082308 1 Tablet(s) PO daily while on the lasix 05/10/2017 05/12/2017 Inactive prednisone 20 mg tablet RxNorm: 125568 1 Tablet(s) PO BID x 2 days, then 1 pill daily x 3 days, then 1/2 pill every other day x 3 doses. 04/19/2017 06/13/2017 Inactive Zithromax Z-Linus 250 mg tablet RxNorm: 336423 1 Tablet(s) PO UD 04/13/2017 06/28/2017 Inactive prednisone 20 mg tablet RxNorm: 490375 1 Tablet(s) PO BID 04/13/2017 04/17/2017 Inactive levothyroxine 125 mc g tablet RxNorm: 649231 1 Tablet(s) PO daily 04/11/2017 10/07/2017 Active tramadol 50 mg tablet RxNorm: 008582 1 Tablet(s) PO Q4 PRN as needed for pain 03/27/2017 04/15/2017 In active [SAVINGS FOR UNINSURED PATIENTS -- BIN:0 77361, PCN: ASPROD1, Group: AME08, ID# [id number], Process claim through [employer], for questions: . THIS IS NOT INSURANCE.] Kenalog 40 mg/mL madhavi pension for injection RxNorm: 1917767 1 Milliliter(s) Inj 03/27/2017 03/27/2017 In active tramadol 50 mg tablet RxNorm: 059925 1 Tablet(s) PO Q4H as needed for pain 03/09/2017 03/26/2017 In active [SAVINGS FOR UNINSURED PATIENTS -- BIN:0 28197, PCN: ASPROD1, Group: AME08, ID# [id number], Process claim through [employer], for questions: . THIS IS NOT INSURANCE.] lisinopril 20 mg-hyd rochlorothiazide 25 mg tablet RxNorm: 781011 TAKE ONE TABLET BY MOUTH DAILY 01/29/2017 06/27/2017 Inactive lorazepam 1 mg tablet RxNorm: 171070 Tablet(s) TAKE TWO TABLETS BY MOUTH AT B EDTIME NEEDED FOR INSOMNIA AND ONE TABLET DAILY NEEDED ANXIETY 01/05/2017 04/04/2017 Inactive tramadol 50 mg tablet RxNorm: 155546 1 Tablet(s) PO Q4H as needed for pain 12/07/2016 01/13/2017 In active [SAVINGS FOR UNINSURED PATIENTS -- BIN:0 52594, PCN: ASPROD1, Group: AME08, ID# [id number], Process claim through [employer], for questions: . THIS IS NOT INSURANCE.] Kenalog 40 mg/mL madhavi pension for injection RxNorm: 3647511 Milliliter(s) Inj 12/07/2016 12/07/2016 In active nystatin 100,000 uni t/mL oral suspension RxNorm: 701900 4 Milliliter(s) PO QI D 12/07/2016 12/11/2016 In active Francia-D 12 Hour 60 mg-120 mg tablet,extended release RxNorm: 368237 1 Tablet(s) PO BID 12/07/2016 01/11/2017 Inactive lorazepam 1 mg tablet RxNorm: 071193 Tablet(s) TAKE TWO TABLETS BY MOUTH AT B EDTIME AND ONE TABLET DAILY NEEDED 12/07/2016 01/04/2017 Inactive (Response to an electronic controlled substance refill request - RxReferenceNumber: [id number]) albuterol sulfate 2. 5 mg/3 mL (0.083 %) solution for nebulization RxNorm: 490554 3 Milliliter(s) INH TID 11/29/2016 11/28/2016 Inactive prednisone 10 mg tablet RxNorm: 699314 Tablet(s) PO UD 11/29/2016 12/05/2016 Inactive 6,5,4,3,2,1 doxycycline hyclate 100 mg tablet RxNorm: 116637 1 Tablet(s) PO BID 11/29/2016 12/04/2016 Inactive albuterol sulfate 2. 5 mg/3 mL (0.083 %) solution for nebulization RxNorm: 946484 3 Milliliter(s) INH TID 11/29/2016 12/03/2016 Inactive Kenalog 40 mg/mL madhavi pension for injection RxNorm: 3983908 Milliliter(s) Inj 11/28/2016 11/28/2016 In active tramadol 50 mg tablet RxNorm: 456332 1 Tablet(s) PO Q4H as needed for pain 11/15/2016 12/06/2016 In active [SAVINGS FOR UNINSURED PATIENTS -- BIN:0 33101, PCN: ASPROD1, Group: AME08, ID# [id number], Process claim through [employer], for questions: . THIS IS NOT INSURANCE.] prednisone 20 mg tablet RxNorm: 291417 2 Tablet(s) PO daily 11/15/2016 11/19/2016 Inactive Advair Diskus 100 mc g-50 mcg/dose powder for inhalation RxNorm: 2941649 1 Puff(s) INH BID 11/15/2016 06/11/2017 Inactive ProAir HFA 90 mcg/ac tuation aerosol inhaler RxNorm: 553351 INHALE 1 TO 2 PUFFS F OUR TIMES A DAY NEEDED FOR ASTHMA 11/15/2016 04/13/2017 Inactive Zithromax Z-Linus 250 mg tablet RxNorm: 986708 1 Tablet(s) PO UD 11/15/2016 11/27/2016 Inactive Zyrtec 10 mg tablet RxNorm: 1168599 1 Tablet(s) PO daily 10/17/2016 11/15/2016 Inactive Keflex 500 mg capsule RxNorm: 233403 1 Capsule(s) PO TID 10/17/2016 10/23/2016 Inactive prednisone 10 mg tablet RxNorm: 977371 Tablet(s) PO UD 10/17/2016 11/28/2016 Inactive 6,5,4,3,2,1 tramadol 50 mg tablet RxNorm: 049028 1 Tablet(s) PO Q4H as needed for pain 09/28/2016 11/06/2016 In active [SAVINGS FOR UNINSURED PATIENTS -- BIN:0 82562, PCN: ASPROD1, Group: AME08, ID# [id number], Process claim through [employer], for questions: . THIS IS NOT INSURANCE.] ProAir HFA 90 mcg/ac tuation aerosol inhaler RxNorm: 030911 INHALE 1 TO 2 PUFFS F OUR TIMES A DAY NEEDED FOR ASTHMA 09/15/2016 11/14/2016 Inactive doxycycline hyclate 100 mg tablet RxNorm: 401360 1 Tablet(s) PO BID 09/15/2016 09/24/2016 Inactive doxycycline hyclate 100 mg tablet RxNorm: 626651 1 Tablet(s) PO BID 07/29/2016 08/07/2016 Inactive tramadol 50 mg tablet RxNorm: 541371 1 Tablet(s) PO Q4H as needed for pain 07/29/2016 09/06/2016 In active [SAVINGS FOR UNINSURED PATIENTS -- BIN:0 93106, PCN: ASPROD1, Group: AME08, ID# [id number], Process claim through [employer], for questions: . THIS IS NOT INSURANCE.] lorazepam 1 mg tablet RxNorm: 059710 Tablet(s) TAKE TWO TABLETS BY MOUTH AT B EDTIME AND ONE TABLET DAILY NEEDED 07/29/2016 10/26/2016 Inactive (Response to an electronic controlled substance refill request - RxReferenceNumber: [id number]) levothyroxine 125 mc g tablet RxNorm: 022810 1 Tablet(s) PO daily 06/29/2016 06/29/2016 Inactive levothyroxine 137 mc g tablet RxNorm: 604676 1 Tablet(s) PO daily 06/29/2016 12/25/2016 Inactive ketoconazole 2 % sha mpoo RxNorm: 790304 1 Application TOP BID 06/29/2016 07/03/2016 Inactive tramadol 50 mg tablet RxNorm: 395895 1 Tablet(s) PO Q4H as needed for pain 06/16/2016 07/25/2016 In active [SAVINGS FOR UNINSURED PATIENTS -- BIN:0 43355, PCN: ASPROD1, Group: AME08, ID# [id number], Process claim through [employer], for questions: . THIS IS NOT INSURANCE.] Bactroban 2 % topica l ointment RxNorm: 795133 APPLY TO AFFECTED ARE A(S) TWO TIMES A DAY 06/16/2016 04/16/2017 Inactive fluconazole 150 mg t ablet RxNorm: 420369 1 Tablet(s) PO daily 06/01/2016 06/05/2016 Inactive gentamicin 0.1 % top ical ointment RxNorm: 869303 1 Application TOP QID 05/12/2016 05/25/2016 In active metronidazole 500 mg tablet RxNorm: 819984 1 Tablet(s) PO TID 05/11/2016 05/24/2016 Inactive gentamicin 0.1 % top ical ointment RxNorm: 089871 1 Application TOP QID 05/11/2016 05/11/2016 In active doxycycline hyclate 100 mg tablet RxNorm: 589992 1 Tablet(s) PO BID 05/11/2016 05/24/2016 Inactive lorazepam 1 mg tablet RxNorm: 949589 Tablet(s) TAKE TWO TABLETS BY MOUTH AT B EDTIME AND ONE TABLET DAILY NEEDED 05/02/2016 07/28/2016 Inactive (Response to an electronic controlled substance refill request - RxReferenceNumber: [id number]) Diflucan 150 mg tablet RxNorm: 225173 1 Tablet(s) PO daily x5 days then 1 x we ekly x 4 weeks. 05/02/2016 04/10/2017 Inactive Diflucan 150 mg tablet RxNorm: 938750 1 Tablet(s) PO every other day 04/19/2016 04/28/2016 In active Diflucan 150 mg tablet RxNorm: 940627 1 Tablet(s) PO every other day 04/19/2016 04/18/2016 In active Diflucan 150 mg tablet RxNorm: 608072 1 Tablet(s) PO daily 04/05/2016 04/11/2016 Inactive mupirocin 2 % topica l ointment RxNorm: 541061 1 Application TOP BID 04/05/2016 05/04/2016 Inactive tramadol 50 mg tablet RxNorm: 927360 1 Tablet(s) PO Q4H as needed for pain 04/05/2016 05/14/2016 In active [SAVINGS FOR UNINSURED PATIENTS -- BIN:0 72854, PCN: ASPROD1, Group: AME08, ID# [id number], Process claim through [employer], for questions: . THIS IS NOT INSURANCE.] prednisone 10 mg tablet RxNorm: 141982 Tablet(s) PO UD 04/01/2016 09/26/2016 Inactive 6,5,4,3,2,1 levothyroxine 137 mc g tablet RxNorm: 318306 1 Tablet(s) PO daily 03/21/2016 03/20/2016 Inactive levothyroxine 137 mc g tablet RxNorm: 625562 1 Tablet(s) PO daily 03/21/2016 06/28/2016 Inactive Advair Diskus 100 mc g-50 mcg/dose powder for inhalation RxNorm: 8222787 1 Puff(s) INH BID 01/26/2016 05/24/2016 Inactive tramadol 50 mg tablet RxNorm: 612252 1 Tablet(s) PO Q4H as needed for pain 01/26/2016 03/05/2016 In active [SAVINGS FOR UNINSURED PATIENTS -- BIN:0 22780, PCN: ASPROD1, Group: AME08, ID# [id number], Process claim through [employer], for questions: . THIS IS NOT INSURANCE.] Bactroban 2 % topica l ointment RxNorm: 857173 APPLY TO AFFECTED ARE A(S) TWO TIMES A DAY 12/22/2015 12/31/2015 Inactive Bactrim DS 800 mg-16 0 mg tablet RxNorm: 258448 TAKE ONE TABLET BY [facility] TWICE A DAY 12/22/2015 04/18/2016 In active Bactrim DS 800 mg-16 0 mg tablet RxNorm: 647944 1 Tablet(s) PO BID 12/21/2015 12/30/2015 Inactive lisinopril 20 mg-hyd rochlorothiazide 25 mg tablet RxNorm: 149342 1 Tablet(s) PO daily 12/21/2015 06/17/2016 Inactive [SAVINGS FOR UNINSURED PATIENTS -- BIN:0 56884, PCN: ASPROD1, Group: AME08, ID# [id number], Process claim through [employer], for questions: . THIS IS NOT INSURANCE.] tramadol 50 mg tablet RxNorm: 564574 1 Tablet(s) PO Q4H as needed for pain 12/03/2015 01/11/2016 In active [SAVINGS FOR UNINSURED PATIENTS -- BIN:0 83551, PCN: ASPROD1, Group: AME08, ID# [id number], Process claim through [employer], for questions: . THIS IS NOT INSURANCE.] lorazepam 1 mg tablet RxNorm: 029824 Tablet(s) TAKE TWO TABLETS BY MOUTH AT B EDTIME AND ONE TABLET DAILY NEEDED 11/26/2015 02/21/2016 Inactive (Response to an electronic controlled substance refill request - RxReferenceNumber: [id number]) Bactrim DS 800 mg-16 0 mg tablet RxNorm: 506246 1 Tablet(s) PO BID 11/25/2015 12/04/2015 Inactive levothyroxine 150 mc g tablet RxNorm: 982706 1 Tablet(s) PO daily 11/25/2015 03/20/2016 Inactive Bactroban 2 % topica l ointment RxNorm: 199004 1 Application TOP BID 10/12/2015 10/21/2015 Inactive Bactrim DS 800 mg-16 0 mg tablet RxNorm: 578287 1 Tablet(s) PO BID 09/07/2015 09/06/2015 Inactive Bactrim DS 800 mg-16 0 mg tablet RxNorm: 523313 1 Tablet(s) PO BID 09/07/2015 09/16/2015 Inactive lorazepam 1 mg tablet RxNorm: 628936 Tablet(s) TAKE TWO TABLETS BY MOUTH AT B EDTIME AND ONE TABLET DAILY NEEDED 08/28/2015 11/24/2015 Inactive (Response to an electronic controlled substance refill request - RxReferenceNumber: [id number]) lisinopril 20 mg-hyd rochlorothiazide 25 mg tablet RxNorm: 477833 1 Tablet(s) PO daily TAKE 1 TABLET BY MOUTH DAILY 08/24/2015 10/22/2015 Inactive levothyroxine 175 mc g tablet RxNorm: 421728 1 Tablet(s) PO daily 08/24/2015 11/24/2015 Inactive tramadol 50 mg tablet RxNorm: 563411 1 Tablet(s) PO Q4H as needed for pain 08/24/2015 09/11/2017 In active [SAVINGS FOR UNINSURED PATIENTS -- BIN:0 11687, PCN: ASPROD1, Group: AME08, ID# [id number], Process claim through [employer], for questions: . THIS IS NOT INSURANCE.] ProAir HFA 90 mcg/ac tuation aerosol inhaler RxNorm: 156703 1-2 Puff(s) INH PRN I NHALE ONE TO TWO PUFFS BY MOUTH FOUR TIMES A DAY NEEDED FOR ASTHMA 08/24/2015 12/01/2015 In active ProAir HFA 90 mcg/ac tuation aerosol inhaler RxNorm: 7943743 INHALE ONE TO TWO PU FFS BY MOUTH FOUR TIMES A DAY NEEDED FOR ASTHMA 08/17/2015 08/23/2015 Inactive Advair Diskus 250 mc g-50 mcg/dose powder for inhalation RxNorm: 0424729 1 Puff(s) INH BID 07/20/2015 07/19/2015 Inactive Advair Diskus 250 mc g-50 mcg/dose powder for inhalation RxNorm: 4259958 1 Puff(s) INH BID 07/20/2015 11/16/2015 Inactive tramadol 50 mg tablet RxNorm: 972352 1 Tablet(s) PO Q4H as needed for pain 07/10/2015 08/17/2015 In active [SAVINGS FOR UNINSURED PATIENTS -- BIN:0 61140, PCN: ASPROD1, Group: AME08, ID# [id number], Process claim through [employer], for questions: . THIS IS NOT INSURANCE.] Zithromax Z-Linus 250 mg tablet RxNorm: 524713 1 Tablet(s) PO UD 07/10/2015 01/18/2016 Inactive Keflex 500 mg capsule RxNorm: 168315 1 Capsule(s) PO TID 06/01/2015 06/07/2015 Inactive mupirocin 2 % topica l ointment RxNorm: 775590 1 Application TOP TID 06/01/2015 06/10/2015 Inactive lisinopril 20 mg-hyd rochlorothiazide 25 mg tablet RxNorm: 643897 TAKE 1 TABLET BY MOUT H DAILY 05/30/2015 08/23/2015 Inactive lisinopril 20 mg-hyd rochlorothiazide 25 mg tablet RxNorm: 275935 1 Tablet(s) PO daily 05/29/2015 11/24/2015 Inactive [SAVINGS FOR UNINSURED PATIENTS -- BIN:0 34587, PCN: ASPROD1, Group: AME08, ID# [id number], Process claim through [employer], for questions: . THIS IS NOT INSURANCE.] lorazepam 1 mg tablet RxNorm: 204762 Tablet(s) TAKE TWO TABLETS BY MOUTH AT B EDTIME AND ONE TABLET DAILY NEEDED 04/17/2015 07/13/2015 Inactive (Response to an electronic controlled substance refill request - RxReferenceNumber: [id number]) levothyroxine 200 mc g tablet RxNorm: 971828 1 Tablet(s) PO daily 03/12/2015 08/23/2015 Inactive [SAVINGS FOR UNINSURED PATIENTS -- BIN:0 42315, PCN: ASPROD1, Group: AME08, ID# [id number], Process claim through [employer], for questions: . THIS IS NOT INSURANCE.] lisinopril 20 mg-hyd rochlorothiazide 25 mg tablet RxNorm: 157768 1 Tablet(s) PO daily 03/11/2015 05/28/2015 Inactive [SAVINGS FOR UNINSURED PATIENTS -- BIN:0 19754, PCN: ASPROD1, Group: AME08, ID# [id number], Process claim through [employer], for questions: . THIS IS NOT INSURANCE.] levothyroxine 175 mc g tablet RxNorm: 369648 1 Tablet(s) PO daily 03/09/2015 03/11/2015 Inactive recheck blood in 3 months- THIS IS CORRE CT DOSAGE levothyroxine 175 mc g tablet RxNorm: 342314 1 Tablet(s) PO daily 03/09/2015 03/08/2015 Inactive recheck blood in 3 months levothyroxine 150 mc g tablet RxNorm: 825307 1 Tablet(s) PO daily 03/09/2015 03/08/2015 Inactive recheck blood in 3 months lorazepam 1 mg tablet RxNorm: 686956 TAKE TWO TABLETS BY MOUTH AT BEDTIME AND ONE TABLET DAILY NEEDED 12/25/2014 01/22/2015 Inactive (Response to an electronic controlled substance refill request - RxReferenceNumber: [id number]) lorazepam 1 mg tablet RxNorm: 569859 Tablet(s) TAKE TWO TABLETS BY MOUTH EVER Y NIGHT AT BEDTIME AND TAKE ONE TABLET BY MOUTH DAILY NEEDED 12/23/2014 12/25/2014 Inactive (Response to an electronic controlled [place] bstance refill request - RxReferenceNumber: [id number]) levothyroxine 150 mc g tablet RxNorm: 367901 1 Tablet(s) PO daily 12/12/2014 03/08/2015 Inactive recheck blood in 3 months Diflucan 150 mg tablet RxNorm: 790825 1 Tablet(s) PO every other day (start af ter finished with Cipro) 11/17/2014 08/23/2015 Inactive tramadol 50 mg tablet RxNorm: 382864 1 Tablet(s) PO Q4H as needed for pain 11/10/2014 12/17/2014 In active [SAVINGS FOR UNINSURED PATIENTS -- BIN:0 75921, PCN: ASPROD1, Group: AME08, ID# [id number], Process claim through [employer], for questions: . THIS IS NOT INSURANCE.] Cipro 500 mg tablet RxNorm: 370646 1 Tablet(s) PO BID 10/23/2014 10/29/2014 Inactive Flagyl 500 mg tablet RxNorm: 670734 1 Tablet(s) PO TID 10/23/2014 10/29/2014 Inactive Cipro 500 mg tablet RxNorm: 536914 1 Tablet(s) PO BID 10/23/2014 10/22/2014 Inactive Flagyl 500 mg tablet RxNorm: 727763 1 Tablet(s) PO TID 10/23/2014 10/22/2014 Inactive Diflucan 150 mg tablet RxNorm: 059872 1 Tablet(s) PO every other day (start af ter finished with Cipro) 10/23/2014 11/16/2014 Inactive lorazepam 1 mg tablet RxNorm: 391501 TAKE TWO TABLETS BY MOUTH EVERY NIGHT AT BEDTIME AND TAKE ONE TABLET BY MOUTH DAILY NEEDED 10/21/2014 10/21/2014 Inactive (Response to an electronic controlled north bstance refill request - RxReferenceNumber: [id number]) lorazepam 1 mg tablet RxNorm: 254187 TAKE TWO TABLETS BY MOUTH EVERY NIGHT AT BEDTIME AND TAKE ONE TABLET BY MOUTH DAILY NEEDED 10/21/2014 11/18/2014 Inactive (Response to an electronic controlled north bstance refill request - RxReferenceNumber: [id number]) lorazepam 1 mg tablet RxNorm: 115719 Tablet(s) TAKE TWO TABLETS BY MOUTH AT B EDTIME, ALSO TAKE ONE TABLET BY MOUTH DAILY NEEDED 10/13/2014 10/21/2014 Inactive (Res ponse to an electronic controlled substance refill request - RxReferenceNumber: [id number]) ProAir HFA 90 mcg/ac tuation aerosol inhaler RxNorm: 2614717 1-2 inhale INH QID a s needed ASTHMA 10/13/2014 12/26/2014 Inactive ProAir HFA 90 mcg/ac tuation aerosol inhaler RxNorm: 0685234 1-2 inhale INH QID a s needed ASTHMA 09/18/2014 10/12/2014 Inactive meloxicam 7.5 mg tablet RxNorm: 660190 1 Tablet(s) PO daily 09/18/2014 03/10/2015 Inactive [SAVINGS FOR UNINSURED PATIENTS -- BIN:0 27058, PCN: ASPROD1, Group: AM08, ID# [id number], Process claim through [employer], for questions: . THIS IS NOT INSURANCE.] sulfamethoxazole 800 mg-trimethoprim 160 mg tablet RxNorm: 289507 1 Tablet(s) PO BID 09/18/2014 10/07/2014 Inactive levothyroxine 175 mc g tablet RxNorm: 249211 1 Tablet(s) PO daily 09/17/2014 12/11/2014 Inactive levothyroxine 175 mc g tablet RxNorm: 057874 1 Tablet(s) PO daily 09/17/2014 09/16/2014 Inactive lorazepam 1 mg tablet RxNorm: 452046 Tablet(s) TAKE TWO TABLETS BY MOUTH AT B EDTIME, ALSO TAKE ONE TABLET BY MOUTH DAILY NEEDED 09/12/2014 10/11/2014 Inactive (Res ponse to an electronic controlled substance refill request - RxReferenceNumber: [id number]) lorazepam 1 mg tablet RxNorm: 572876 TAKE TWO TABLETS BY MOUTH AT BEDTIME, AL SO TAKE ONE TABLET BY MOUTH DAILY NEEDED 09/08/2014 09/11/2014 Inactive (Res ponse to an electronic controlled substance refill request - RxReferenceNumber: [id number]) meloxicam 7.5 mg tablet RxNorm: 389544 1 Tablet(s) PO daily 09/01/2014 09/17/2014 Inactive [SAVINGS FOR UNINSURED PATIENTS -- BIN:0 73133, PCN: ASPROD1, Group: AME08, ID# [id number], Process claim through [employer], for questions: . THIS IS NOT INSURANCE.] lisinopril 20 mg-hyd rochlorothiazide 25 mg tablet RxNorm: 914547 1 Tablet(s) PO daily 09/01/2014 12/29/2014 Inactive [SAVINGS FOR UNINSURED PATIENTS -- BIN:0 73100, PCN: ASPROD1, Group: AME08, ID# [id number], Process claim through [employer], for questions: . THIS IS NOT INSURANCE.] tramadol 50 mg tablet RxNorm: 743630 1 Tablet(s) PO Q4H as needed for pain 08/20/2014 11/07/2014 In active [SAVINGS FOR UNINSURED PATIENTS -- BIN:0 64742, PCN: ASPROD1, Group: AME08, ID# [id number], Process claim through [employer], for questions: . THIS IS NOT INSURANCE.] meloxicam 7.5 mg tablet RxNorm: 276889 1 Tablet(s) PO daily 08/14/2014 08/31/2014 Inactive [SAVINGS FOR UNINSURED PATIENTS -- BIN:0 97291, PCN: ASPROD1, Group: AME08, ID# [id number], Process claim through [employer], for questions: . THIS IS NOT INSURANCE.] lorazepam 1 mg tablet RxNorm: 026597 2 Tablet(s) PO QHS and 1 tab qd PRN 08/01/2014 09/08/2014 In active [SAVINGS FOR UNINSURED PATIENTS -- BIN:0 21516, PCN: ASPROD1, Group: AME08, ID# [id number], Process claim through [employer], for questions: . THIS IS NOT INSURANCE.] levothyroxine 200 mc g tablet RxNorm: 531159 1 Tablet(s) PO daily 07/31/2014 09/16/2014 Inactive [SAVINGS FOR UNINSURED PATIENTS -- BIN:0 66695, PCN: ASPROD1, Group: AME08, ID# [id number], Process claim through [employer], for questions: . THIS IS NOT INSURANCE.] Phenergan VC-Codeine oral RxNorm: 237263 oral No S tart Date Active lorazepam 1 mg tablet RxNorm: 061200 2 Tablet(s) PO QHS and 1 tab qd PRN No Start Date 07/31/2014 Inactive meloxicam 7.5 mg tablet RxNorm: 980409 1 Tablet(s) PO daily No Start Date 08/13/2014 Inactive lisinopril 20 mg-hyd rochlorothiazide 25 mg tablet RxNorm: 770935 1 Tablet(s) PO daily No Start Date 08/31/2014 Inactive levothyroxine 200 mc g tablet RxNorm: 259398 1 Tablet(s) PO daily No Start Date 07/30/2014 Inactive Diflucan 150 mg tablet RxNorm: 225338 1 Tablet(s) PO every other day No Start Date 10/22/2014 Inactive Zithromax Z-Linus 250 mg tablet RxNorm: 835308 1 Tablet(s) PO UD No Start Date 07/09/2015 Inactive tramadol 50 mg tablet RxNorm: 735458 1 Tablet(s) PO Q6 as needed No Start Date 08/19/2014 Inactive Medication Administered Medication Codes Instruc tions Start Date Status Kenalog 40 mg/mL suspension for injection RxNorm: 6592489 1Milliliter 06/14/2017 N o longer Active Kenalog 40 mg/mL suspension for injection RxNorm: 7251020 1Milliliter 03/27/2017 N o longer Active Kenalog 40 mg/mL suspension for injection RxNorm: 1160357 Milliliter 12/07/2016 No longer Active Kenalog 40 mg/mL suspension for injection RxNorm: 3911531 Milliliter 11/28/2016 No longer Active Immunizations Vaccine Codes Date Status Pneumococcal CVX: 33 09/1986 completed Tetanus, Diptheria, Pertussis CVX: 113 03/11/1987 completed Tetanus/Diptheria CVX: 113 03/11/1987 completed Influenza CVX: 141 03/11 completed Assessments Condition Codes Effectiv e Dates Localized edema ICD-10: R60.0 ICD-9: 782.3 09/12/2017 Mild persistent asthma with (acute) exacerbation ICD-10: J45.31 ICD-9: 493.12 06/14/2017 Mild persistent asthma, uncomplicated ICD-10: J45.30 ICD-9: 493.90 05/10/2017 Contusion of left wrist, initial encounter ICD-10: [...] Visit Reason For Visit Effective Dates Notes edema 09/12/2017 shortness of breath 06/14/2017 edema [...] hTSH II 1.45 uIU/mL 03/27/2017 Free T4 Akf159 FREE T4 1.23 ng/dL 03/27/2017 Comp Metabolic Uvh413 NA 140 mEq/L 09/28/2016 Comp Metabolic Tar885 K 3.9 mEq/L 09/28/2016 Comp Metabolic Arh892 CL 104 mEq/L 09/28/2016 Comp Metabolic Wqy143 CO2 28.0 mEq/L 09/28/2016 Comp Metabolic Jat744 AN ION GAP 12 09/28/2016 Comp Metabolic Niu026 GL UCOSE 97 mg/dL 09/28/2016 Comp Metabolic Bww833 Cr eat 0.8 mg/dL 09/28/2016 Comp Metabolic Ege509 eG FR 79 ml/min/1.73m2 09/28 Comp Metabolic Fri819 BUN 13 mg/dL 09/28/2016 Comp Metabolic Edq386 B/ C Ratio 17.1 Ratio 09/28/2016 Comp Metabolic Qaf613 CA LCIUM 8.9 mg/dL 09/28/2016 Comp Metabolic Zpn607 AL K PHOS 100 U/L 09/28/2016 Comp Metabolic Wmc028 T(SGOT) 12 U/L 09/28/2016 Comp Metabolic Nol847 AL T(SGPT) 9 U/L 09/28/2016 Comp Metabolic Vyy994 BI LI T 0.4 mg/dL 09/28/2016 Comp Metabolic Uzs405 AL BUMIN 4.1 g/dL 09/28/2016 Comp Metabolic Vhe933 TP RO 6.6 g/dL 09/28/2016 Comp Metabolic Jnq875 GL OB 2.5 g/dL 09/28/2016 Comp Metabolic Zfm472 A/ G Ratio 1.6 Ratio 09/28/2016 Comp Metabolic Dbh939 Os mo 279 mOsmo 09/28/2016 Lipid Ord30 [...] 21.5 % 09/28/2016 Cbc With Differential Ord2 [place]% 7.2 % 09/28/2016 Cbc With Differential Ord2 [...] 1.41 K/ul 09/28/2016 Cbc With Differential Ord2 [place] ABS# 0.5 K/ul 09/28/2016 Cbc With Differential Ord2 Eos ABS# 0.2 K/ul 09/28/2016 Cbc With Differential Ord2 Baso ABS# 0.0 K/ul 09/28/2016 Tsh Ord6 hTSH II 0.52 uIU/mL 09/28/2016 Free T4 Zqr134 FREE T4 1.43 ng/dL 09/28/2016 Lipid Ord30 CHOL 198 mg/dL 06/16/2016 Lipid [...] 31.4 % 06/16/2016 Cbc With Differential Ord2 [place]% 8.1 % 06/16/2016 Cbc With Differential Ord2 MCH 28.9 pg 06/16/2016 Cbc With Differential Ord2 Eos% 2.8 % 06/16/2016 Cbc With Differential Ord2 MCHC 33.3 pg 06/16/2016 Cbc With Differential Ord2 PLT 230 K/ul 06/16/2016 Cbc With Differential Ord2 Baso% 0.2 % 06/16/2016 Cbc With Differential Ord2 RDW 15.0 % 06/16/2016 Cbc With Differential Ord2 Neut ABS# 3.12 K/ul 06/16/2016 Cbc With Differential Ord2 Lymph ABS# 1.70 K/ul 06/16/2016 Cbc With Differential Ord2 [place] ABS# 0.4 K/ul 06/16/2016 Cbc With Differential Ord2 Eos ABS# 0.2 K/ul 06/16/2016 Cbc With Differential Ord2 Baso ABS# 0.0 K/ul 06/16/2016 Comp Metabolic Too107 NA 139 mEq/L 06/16/2016 Comp Metabolic Cvr295 K 4.3 mEq/L 06/16/2016 Comp Metabolic Euz091 CL 105 mEq/L 06/16/2016 Comp Metabolic Sfv914 CO2 30.0 mEq/L 06/16/2016 Comp Metabolic Fin212 AN ION GAP 8 06/16/2016 Comp Metabolic Zdy207 GL UCOSE 90 mg/dL 06/16/2016 Comp Metabolic Giy244 Cr eat 0.7 mg/dL 06/16/2016 Comp Metabolic Fxe291 eG FR 91 ml/min/1.73m2 06/16 Comp Metabolic Cel160 BUN 15 mg/dL 06/16/2016 Comp Metabolic Suo991 B/ C Ratio 22.4 Ratio 06/16/2016 Comp Metabolic Nle773 CA LCIUM 8.8 mg/dL 06/16/2016 Comp Metabolic Bcd550 AL K PHOS 79 U/L 06/16/2016 Comp Metabolic Bpd507 T(SGOT) 13 U/L 06/16/2016 Comp Metabolic Scq275 AL T(SGPT) 11 U/L 06/16/2016 Comp Metabolic Pxh663 BI LI T 0.5 mg/dL 06/16/2016 Comp Metabolic Xzb263 AL BUMIN 3.9 g/dL 06/16/2016 Comp Metabolic Efd087 TP RO 6.1 g/dL 06/16/2016 Comp Metabolic Lda482 GL OB 2.2 g/dL 06/16/2016 Comp Metabolic Opc656 A/ G Ratio 1.8 Ratio 06/16/2016 Comp Metabolic Twl536 Os mo 278 mOsmo 06/16/2016 Tsh Ord6 hTSH II 0.47 uIU/mL 06/16/2016 Free T4 Cot791 FREE T4 1.42 ng/dL 06/16/2016 Tsh Ord6 hTSH II 0.56 uIU/mL 03/04/2016 Free T4 Ymh431 FREE T4 1.34 ng/dL 03/04/2016 Tsh Ord6 hTSH II 0.98 uIU/mL 01/27/2016 Free T4 Knc035 FREE T4 1.19 ng/dL 01/27/2016 Tsh Ord6 hTSH II 0.08 uIU/mL 11/23/2015 Free T4 Kqs844 FREE T4 1.69 ng/dL 11/23/2015 Comp Metabolic Dky855 NA 139 mEq/L 08/21/2015 Comp Metabolic Kcv960 K 4.3 mEq/L 08/21/2015 Comp Metabolic Dnz445 CL 102 mEq/L 08/21/2015 Comp Metabolic Sga791 CO2 27.0 mEq/L 08/21/2015 Comp Metabolic Idd475 AN ION GAP 14 08/21/2015 Comp Metabolic Vyh918 GL UCOSE 89 mg/dL 08/21/2015 Comp Metabolic Hmp691 Cr eat 0.7 mg/dL 08/21/2015 Comp Metabolic Gmt480 eG FR 85 ml/min/1.73m2 08/21 Comp Metabolic Hvw779 BUN 14 mg/dL 08/21/2015 Comp Metabolic Kym838 B/ C Ratio 19.7 Ratio 08/21/2015 Comp Metabolic Wfe026 CA LCIUM 9.5 mg/dL 08/21/2015 Comp Metabolic Tij660 AL K PHOS 123 U/L 08/21/2015 Comp Metabolic Cdg166 T(SGOT) 13 U/L 08/21/2015 Comp Metabolic Wjh366 AL T(SGPT) 10 U/L 08/21/2015 Comp Metabolic Nsr847 BI LI T 0.4 mg/dL 08/21/2015 Comp Metabolic Kpj377 AL BUMIN 4.1 g/dL 08/21/2015 Comp Metabolic Nxg514 TP RO 6.8 g/dL 08/21/2015 Comp Metabolic Aaa176 GL OB 2.7 g/dL 08/21/2015 Comp Metabolic Keg842 A/ G Ratio 1.5 Ratio 08/21/2015 Comp Metabolic Vvx466 Os mo 277 mOsmo 08/21/2015 Lipid Ord30 CHOL 185 mg/dL 08/21/2015 Lipid Ord30 HDL 50.0 mg/dl 08/21/2015 Lipid Ord30 TRIG 88 mg/dL 08/21/2015 Lipid Ord30 LDL 117 mg/dL 08/21/2015 Lipid Ord30 C/HDL 3.7 Ratio 08/21/2015 Cbc With Differential Ord2 WBC 5.3 [...] hTSH II 0.07 uIU/mL 08/21/2015 Free T4 Jta733 FREE T4 1.78 ng/dL 08/21/2015 Quick Strep Pvo1569 Quic k Strep Negative 07/08/2015 Tsh Ord6 hTSH II 0.04 uIU/mL 05/20/2015 Free T4 Gcg909 FREE T4 1.50 ng/dL 05/20/2015 Review of Systems System Result Effective Dates Constitutional recent illness 09/12/2017 Constitutional No chills [...] accomodation 03/11/2015 None Full Exam - General 1995 Ears/Nose/Throat [...] retractions 07/31/2014 None Procedures Procedure Codes Date URINALYSIS NONAUTO W /O SCOPE CPT-4: 57162 09/12/2017 TRIAMCINOLONE ACET I [place] NOS CPT-4: J3301 06/14/2017 THER/PROPH/DIAG INJ SC/IM CPT-4: 07718 06/14/2017 PRESCRIP TRANSMIT A ERX SY CPT-4: G8553 06/14/2017 TRIAMCINOLONE ACET I [place] NOS CPT-4: J3301 03/27/2017 THER/PROPH/DIAG INJ SC/IM CPT-4: 01218 12/07/2016 TRIAMCINOLONE ACET I [place] NOS CPT-4: J3301 12/07/2016 THER/PROPH/DIAG INJ SC/IM CPT-4: 48652 11/28/2016 TRIAMCINOLONE ACET I [place] NOS CPT-4: J3301 11/28/2016 Vital Signs Date Vital 09/12/2017 Blood Pressure 1: 132/68 Code: 8480-6 BMI: 39.7 Code: 09839-2 Heart Rate 1: 76 bpm Height: 5'6" SpO2: 98% Weight: 246 lbs 06/14/2017 Blood Pressure 1: 130/80 Code: 8480-6 BMI: 39.4 Code: 35421-5 Heart Rate 1: 73 bpm Height: 5'6" SpO2: 95% Temperature: 36.9 (C ) / 98.5 (F) Weight: 244 lbs 05/10/2017 Blood Pressure 1: 128/68 Code: 8480-6 BMI: 38.7 Code: 94442-1 Heart Rate 1: 69 bpm Height: 5'6" SpO2: 97% Weight: 240 lbs 04/19/2017 Blood Pressure 1: 138/74 Code: 8480-6 BMI: 38.7 Code: 69506-6 Heart Rate 1: 73 bpm Height: 5'6" SpO2: 96% Weight: 240 lbs 03/27/2017 Blood Pressure 1: 142/84 Code: 8480-6 BMI: 38.7 Code: 39288-1 Heart Rate 1: 69 bpm Height: 5'6" SpO2: 97% Weight: 240 lbs 01/26/2017 Blood Pressure 1: 136/68 Code: 8480-6 Heart Rate 1: 64 bpm Height: 5'6" SpO2: 96% Weight: 12/07/2016 Blood Pressure 1: 130/72 Code: 8480-6 BMI: 39.7 Code: 59559-1 Heart Rate 1: 73 bpm Height: 5'6" SpO2: 93% Temperature: 36.8 (C ) / 98.3 (F) Weight: 246 lbs 11/28/2016 Blood Pressure 1: 138/60 Code: 8480-6 BMI: 39.7 Code: 76938-7 Heart Rate 1: 81 bpm Height: 5'6" SpO2: 97% Weight: 246 lbs 11/15/2016 Blood Pressure 1: 134/78 Code: 8480-6 BMI: 39.7 Code: 27653-9 Heart Rate 1: 75 bpm Height: 5'6" SpO2: 93% Temperature: 36.8 (C ) / 98.2 (F) Weight: 246 lbs 10/17/2016 Blood Pressure 1: 120/64 Code: 8480-6 BMI: 38.4 Code: 32978-1 Heart Rate 1: 69 bpm Height: 5'6" SpO2: 98% Temperature: 37.2 (C ) / 98.9 (F) Weight: 238 lbs 09/28/2016 Blood Pressure 1: 158/76 Code: 8480-6 BMI: 39.4 Code: 72168-7 Heart Rate 1: 71 bpm Height: 5'6" SpO2: 97% Weight: 244 lbs 06/29/2016 Blood Pressure 1: 124/60 Code: 8480-6 BMI: 38.7 Code: 24226-5 Heart Rate 1: 71 bpm Height: 5'6" SpO2: 98% Weight: 240 lbs 06/01/2016 Blood Pressure 1: 120/62 Code: 8480-6 BMI: 38.6 Code: 83207-2 Heart Rate 1: 76 bpm Height: 5'6" SpO2: 98% Weight: 239 lbs 05/11/2016 Blood Pressure 1: 140/80 Code: 8480-6 BMI: 38.1 Code: 41945-6 Heart Rate 1: 88 bpm Height: 5'6" SpO2: 97% Weight: 236 lbs 04/05/2016 Blood Pressure 1: 142/80 Code: 8480-6 BMI: 38.4 Code: 08872-7 Heart Rate 1: 96 bpm Height: 5'6" SpO2: 98% Weight: 238 lbs 04/01/2016 Blood Pressure 1: 136/88 Code: 8480-6 BMI: 39.2 Code: 53093-6 Heart Rate 1: 86 bpm Height: 5'6" SpO2: 96% Weight: 243 lbs 01/26/2016 Blood Pressure 1: 124/76 Code: 8480-6 BMI: 39.2 Code: 54029-4 Heart Rate 1: 76 bpm Height: 5'6" SpO2: 97% Weight: 243 lbs 12/21/2015 Blood Pressure 1: 120/64 Code: 8480-6 BMI: 37.0 Code: 05531-3 Heart Rate 1: 98 bpm Height: 5'6" SpO2: 97% Weight: 229 lbs 10/12/2015 Blood Pressure 1: 150/64 Code: 8480-6 BMI: 37.4 Code: 72393-2 Heart Rate 1: 70 bpm Height: 5'6" SpO2: 94% Weight: 232 lbs 08/24/2015 Blood Pressure 1: 128/74 Code: 8480-6 BMI: 36.8 Code: 44701-0 Heart Rate 1: 88 bpm Height: 5'6" SpO2: 94% Temperature: 36.8 (C ) / 98.3 (F) Weight: 228 lbs 06/01/2015 Blood Pressure 1: 134/68 Code: 8480-6 BMI: 36.0 Code: 92471-8 Heart Rate 1: 70 bpm Height: 5'6" SpO2: 98% Weight: 223 lbs 05/21/2015 Blood Pressure 1: 126/72 Code: 8480-6 BMI: 35.2 Code: 82297-9 Heart Rate 1: 63 bpm Height: 5'6" SpO2: 95% Weight: 218 lbs 5 oz 03/26/2015 Blood Pressure 1: 140/62 Code: 8480-6 BMI: 35.3 Code: 83285-0 Heart Rate 1: 68 bpm Height: 5'6" Weight: 219 lbs 03/11/2015 Blood Pressure 1: 130/80 Code: 8480-6 BMI: 34.9 Code: 69196-2 Heart Rate 1: 76 bpm Height: 5'6" Temperature: 37.1 (C ) / 98.7 (F) Weight: 216 lbs 12/11/2014 Blood Pressure 1: 134/62 Code: 8480-6 BMI: 34.2 Code: 22201-0 Heart Rate 1: 72 bpm Height: 5'6" Weight: 212 lbs 09/18/2014 Blood Pressure 1: 148/80 Code: 8480-6 BMI: 34.7 Code: 64780-3 Heart Rate 1: 68 bpm Height: 5'6" Weight: 215 lbs 07/31/2014 Blood Pressure 1: 124/72 Code: 8480-6 BMI: 36.2 Code: 81291-3 Heart Rate 1: 68 bpm Height: 5'6" Weight: 224 lbs Functional Status No Functional Status data History of Present Illness Symptom Name Status Resu lt Effective Date Notes edema Onset and Resolution sudden in onset [...] Severity mi ld 09/28/2016 None hypothyroid Quality grinder outside diameter jamee 09/28/2016 None hypothyroid Onset and Resolution [...] Severity mi ld 06/01/2016 None hypothyroid Quality grinder outside diameter jamee 06/01/2016 None hypothyroid Onset and Resolution [...] and Resolution resolved 04/05/2016 None hypothyroid Quality grinder outside diameter jamee 04/05/2016 None hypothyroid Onset and Resolution [...] a ssociated factors 10/12/2015 None hypothyroid Quality grinder outside diameter jamee 08/24/2015 None hypothyroid Onset and Resolution [...] Severity mod erate 06/01/2015 None hypothyroid Quality grinder outside diameter jamee 05/21/2015 None hypothyroid Onset of Symptom [...] Findings brittle nails 03/11/2015 None hypothyroid Quality grinder outside diameter jamee 03/11/2015 None hypothyroid Quality stab le [...] Codes Date EST. PATIENT, LEVEL IV Diagnosis: Localized edema[ICD10: R60.0] [facility] CPT-4: 51028 09/12/2017 [id number] EST. PATIENT, LEVEL IV Diagnosis: Mild persistent asthma with (acute) exacerbation[ICD10: J45.31] [facility] CPT-4: 25258 06/14/2017 17274 EST. PATIENT, LEVEL III Diagnosis: Localized edema[ICD10: R60.0] Diagnosis: Mild persistent asthma, uncomplicated[ICD10: J45.30] Mishel Finn MD [facility] CPT-4: 34603 05/10/2017 46677 EST. PATIENT, LEVEL III Diagnosis: Mild persistent asthma with (acute) exacerbation[ICD10: J45.31] Mishel Finn MD [facility] CPT-4: 30634 04/19/2017 ([id number]) 07971 EST. P ATIENT, LEVEL IV Diagnosis: Contusion of left wrist, initial encounter[ICD10: S60.212A] Diagnosis: Hypothyroidism, unspecified[ICD10: E03.9] Diagnosis: Mild persistent asthma with (acute) exacerbation[ICD10: J45.31] Diagnosis: Low back pain[ICD10: M54.5] Lynn Finn MD [facility] CPT- 4: 50004 03/27/2017 ([id number]) 47817 EST. P ATIENT, LEVEL IV Diagnosis: Essential (primary) hypertension[ICD10: I10] Diagnosis: Atrophy of thyroid (acquired)[ICD10: E03.4] Diagnosis: Low back pain[ICD10: M54.5] Damari Finn MD [facility] CPT-4: 71206 01/26/2017 13244 EST. PATIENT, LEVEL III Diagnosis: Other allergic rhinitis[ICD10: J30.89] Diagnosis: Mild persistent asthma with (acute) exacerbation[ICD10: J45.31] Mishel Finn MD [facility] CPT-4: 42153 12/07/2016 79420 EST. PATIENT, LEVEL III Diagnosis: Mild persistent asthma with (acute) exacerbation[ICD10: J45.31] Mishel Finn MD [facility] CPT-4: 81808 11/28/2016 21462 EST. PATIENT, LEVEL III Diagnosis: Mild persistent asthma with (acute) exacerbation[ICD10: J45.31] Diagnosis: Acute bronchitis due to other specified organisms[ICD10: J20.8] Mishel Finn MD [facility] CPT-4: 08967 11/15/2016 09616 EST. PATIENT, LEVEL IV Diagnosis: Other acute sinusitis[ICD10: J01.80] Diagnosis: Other allergic rhinitis[ICD10: J30.89] Diagnosis: Mild persistent asthma with (acute) exacerbation[ICD10: J45.31] Mishel Finn MD, [facility] CPT-4: 02051 10/17/2016 ([id number]) 82667 EST. P ATIENT, LEVEL IV Diagnosis: Essential (primary) hypertension[ICD10: I10] Diagnosis: Low back pain[ICD10: M54.5] Damari Finn MD, [facility] CPT-4: 92934 09/28/2016 72363 EST. PATIENT, LEVEL III Diagnosis: Tinea barbae and tinea capitis[ICD10: B35.0] Diagnosis: Other specified hypothyroidism[ICD10: E03.8] Mishel Finn MD, [facility] CPT-4: 12818 06/29/2016 ([id number]) 34961 EST. P ATIENT, LEVEL IV Diagnosis: Essential (primary) hypertension[ICD10: I10] Diagnosis: Atrophy of thyroid (acquired)[ICD10: E03.4] Diagnosis: Rash and other nonspecific skin eruption[ICD10: R21] Damari Finn MD, [facility] CPT-4: 27115 06/01/2016 ([id number]) 18717 EST. [facility] Diagnosis: Cellulitis of groin[ICD10: L03.314] Damari Finn MD, [facility] CPT- 4: 31375 05/11/2016 ([id number]) 93064 EST. P ATIENT, LEVEL IV Diagnosis: Hypothyroidism, unspecified[ICD10: E03.9] Diagnosis: Candidiasis of vulva and vagina[ICD10: B37.3] Diagnosis: Essential (primary) hypertension[ICD10: I10] Diagnosis: Low back pain[ICD10: M54.5] Lynn Finn MD, [facility] CPT- 4: 90013 04/05/2016 55905 EST. PATIENT, LEVEL III Diagnosis: Other acute sinusitis[ICD10: J01.80] Diagnosis: Rash and other nonspecific skin eruption[ICD10: R21] Mishel Finn MD, [facility] CPT-4: 10245 04/01/2016 ([id number]) 83372 EST. P ATIENT, LEVEL IV Diagnosis: Essential (primary) hypertension[ICD10: I10] Diagnosis: Hypothyroidism, unspecified[ICD10: E03.9] Diagnosis: Low back pain[ICD10: M54.5] Diagnosis: Other obesity due to excess calories[ICD10: E66.09] Lynn Finn MD, [facility] CPT-4: 78849 01/26/2016 44101 EST. PATIENT, LEVEL IV Diagnosis: Essential (primary) hypertension[ICD10: I10] Diagnosis: Cutaneous abscess of face[ICD10: L02.01] Mishel Finn MD, [facility] CPT-4: 45951 12/21/2015 ([id number]) 71902 EST. P ATIENT, LEVEL III Diagnosis: Cutaneous abscess of groin[ICD10: L02.214] Diagnosis: Hypothyroidism, unspecified[ICD10: E03.9] Lynn Finn MD, [facility] CPT-4: 13960 10/12/2015 ([id number]) 31674 EST. P ATIENT, LEVEL III Diagnosis: Essential (primary) hypertension[ICD10: I10] Diagnosis: Hypothyroidism, unspecified[ICD10: E03.9] Diagnosis: Allergic rhinitis, unspecified[ICD10: J30.9] Lynn Finn MD, [facility] CPT-4: 85855 08/24/2015 ([id number]) 69939 EST. P ATIENT, LEVEL III Diagnosis: Skin infection[ICD9: 686.9] Damari Finn MD, [facility] CPT-4: 30289 06/01/2015 ([id number]) 09327 EST. P ATIENT, LEVEL III Diagnosis: Hypothyroidism[ICD9: 244.9] Diagnosis: ESSENTIAL HYPERTENSION[ICD9: 401.9] Damari Finn MD, [facility] CPT- 4: 01184 05/21/2015 ([id number]) 55237 EST. P ATIENT, LEVEL III Diagnosis: Hypothyroidism[ICD9: 244.9] Diagnosis: Fingernail abnormalities[ICD9: 703.8] Lynn Finn MD, [facility] CPT-4: 97160 03/26/2015 ([id number]) 42727 EST. P ATIENT, LEVEL II Diagnosis: Hypothyroidism[ICD9: 244.9] [facility] CPT-4: 73146 03/11/2015 ([id number]) 66802 EST. P ATIENT, LEVEL IV Diagnosis: ESSENTIAL HYPERTENSION[ICD9: 401.9] Diagnosis: Low back pain[ICD9: 724.2] Diagnosis: Hypothyroidism[ICD9: 244.9] [facility] CPT-4: 87591 12/11/2014 ([id number]) 52301 EST. P ATIENT, LEVEL IV Diagnosis: Hidradenitis suppurativa[ICD9: 705.83] Diagnosis: ESSENTIAL HYPERTENSION[ICD9: 401.9] Diagnosis: Low back pain[ICD9: 724.2] Diagnosis: Lumbar spinal stenosis[ICD9: 724.02] Diagnosis: HYPOTHYROIDISM[ICD9: 244.9] [facility] CPT-4: 71825 09/18/2014 Office outpatient ne w 30 minutes Diagnosis: ESSENTIAL HYPERTENSION[ICD9: 401.9] Diagnosis: Hypothyroidism[ICD9: 244.9] Diagnosis: Low back pain[ICD9: 724.2] [facility] CPT- 4: 25183 07/31/2014 Plan of Care Planned Activity Notes C odes Status Date Appointment: Mishel Balderrama WPtel: [facility] [place] [place] (30 min) Complex 09/12/2017 Patient Education: Patient Medication Summary Completed 09/12/2017 Appointment: Lynn Arenas WPtel: [facility] [phone] [place] (30 min) Complex 06/27/2017 Appointment: Mishel Balderrama WPtel: [facility] [place] [place] (15 min) Moderate 06/14/2017 Patient Education: Patient Medication Summary Completed 06/14/2017 Appointment: Mishel Balderrama WPtel: [facility] [place] [place] (15 min) Moderate 05/10/2017 Patient Education: Patient Medication Summary Completed 05/10/2017 Care Plan: VASCULAR STUDY Pending 05/10/2017 Appointment: Mishel Balderrama WPtel: [phone] [facility] [place] (15 min) Moderate 04/19/2017 Patient Education: Patient Medication Summary Completed 04/19/2017 Appointment: Lynn Arenas WPtel: [phone] [phone] [place] (30 min) Complex 03/27/2017 Patient Education: Patient Medication Summary Completed 03/27/2017 Appointment: Damari Finn WPtel: [facility] [place] (15 min) Moderate 01/26/2017 Patient Education: Patient Medication Summary Completed 01/26/2017 Appointment: Mishel Balderrama WPtel: [facility] [place] (15 min) Moderate 12/07/2016 Patient Education: Patient Medication Summary Completed 12/07/2016 Patient Education: Obesity Completed 12/07/2016 Appointment: Nurse Visit 11/29/2016 Appointment: Mishel Balderrama WPtel: [facility] [place] (15 min) Moderate 11/28/2016 Patient Education: Patient Medication Summary Completed 11/28/2016 Appointment: Mishel Balderrama WPtel: [facility] [place] (15 min) Moderate 11/24/2016 Appointment: Mis[facility] Balderrama [facility]Ptel: [phone] [facility] [place] [place] (30 min) Complex 11/15/2016 Patient Education: Patient Medication Summary Completed 11/15/2016 Patient Education: Obesity Completed 11/15/2016 Appointment: Mishel Balderrama WPtel: [phone] [facility] [place] [place] (30 min) Complex 10/17/2016 Patient Education: Patient Medication Summary Completed 10/17/2016 Patient Education: Obesity Completed 10/17/2016 [phone] ([facility] Moderate 09/28/2016 Patient Education: Patient Medication Summary Completed 09/28/2016 Patient Education: Obesity Completed 09/28/2016 Patient Education: Hypertension Completed 09/28/2016 Patient Education: Patient Medication Summary Completed 09/27/2016 Appointment: Lynn Arenas WPtel: [phone] [phone] [place] (15 min) Moderate 06/29/2016 Patient Education: Patient Medication Summary Completed 06/29/2016 Patient Education: Obesity Completed 06/29/2016 App[facility]ment: [phone] [place] (15 min) Moderate 06/01/2016 Patient Education: Patient Medication Summary Completed 06/01/2016 Patient Education: Obesity Completed 06/01/2016 Appointment: Damari Finn WPtel: [facility] (15 min) Moderate 05/11/2016 Patient Education: Patient Medication Summary Completed 05/11/2016 Patient Education: Obesity Completed 05/11/2016 Patient Education: Patient Medication Summary Completed 04/05/2016 Patient Education: Obesity Completed 04/05/2016 Patient Education: Hypertension Completed 04/05/2016 Appointment: Lynn Arenas WPtel: [facility] [phone] [place] (30 min) Complex 04/01/2016 Patient Education: Patient Medication Summary Completed 04/01/2016 Patient Education: Obesity Completed 04/01/2016 Appointment: Lynn Arenas WPtel: [phone] [facility] [phone] [place] (30 min) Complex 03/29/2016 Appointment: Lynn Arenas WPtel: [phone] [phone] [place] (30 min) Complex 01/26/2016 Patient Education: Patient Medication Summary Completed 01/26/2016 Patient Education: Obesity Completed 01/26/2016 Care Plan: BMI Above normal followup RADHA F-MGMT EDUC & TRAIN 1 PT Pending 01/26/2016 Care Plan: Referral Order SNOMED-CT : [id number] Pending 01/07/2016 Appointment: Lynn Arenas WPtel: [phone] (15 min) Moderate 12/24/2015 Patient Education: Patient Medication Summary Completed 12/21/2015 Care Plan: C WOUN RTS Pending 12/21/2015 Patient Education: Patient Medication Summary Completed 10/12/2015 Appointment: (30 min) Complex 10/09/2015 Appointment: (30 min) Complex 08/24/2015 Patient Education: Patient Medication Summary Completed 08/24/2015 Patient Education: Hypertension Completed 08/24/2015 Appointment: (10 min) Simple 07/08/2015 Appointment: Damari Finn WPtel: [address] [place], [place] [phone] (15 min) Moderate 06/01/2015 Patient Education: Patient Medication Summary Completed 06/01/2015 Appointment: (30 min) Complex 05/21/2015 Patient Education: Patient Medication Summary Completed 05/21/2015 Patient Education: Hypertension Completed 05/21/2015 Appointment: (30 min) Complex 05/12/2015 Patient Education: Patient Medication Summary Completed 05/08/2015 Appointment: (15 min) Moderate 03/26/2015 Patient Education: Patient Medication Summary Completed 03/26/2015 Care Plan: C FUNGUS fingernail Pending 03/26/2015 Appointment: (15 min) Moderate 03/11/2015 Patient Education: Patient Medication Summary Completed 03/11/2015 Appointment: Damari Finn WPtel: [address] [place], [place] [phone] [facility] follow up 12/11/2014 Patient Education: Patient Medication Summary Completed 12/11/2014 Patient Education: Hypertension Completed 12/11/2014 Appointment: Damari Finn WPtel: [address] [place], [place] [phone] [facility] follow up 11/27/2014 Appointment: Damari Finn WPtel: [address] [place], [place] [phone] Follow up 09/18/2014 Patient Education: Patient Medication Summary Completed 09/18/2014 Patient Education: Hypertension Completed 09/18/2014 Appointment: Lynn Arenas WPtel: [facility] [phone] New Patient 07/31/2014 Patient Education: Patient Medication Summary Completed 07/31/2014 Referral: Artur Daugherty she w ill be calling and making her appt Initiated Referral: Artur Daugherty Referral Initiated Instructions No Instructions
== END 2020-02-19 09:09 | disposition home health service (06) ==
LOC: EDUNIT# 05:24 → ER 05:27 → UNDOADMOB 08:35 → 4TH 08:35 → UNDODISOB 02-19 15:40
PROVIDERS: ADMIT Family Medicine; ATTEND Family Medicine
DX: I16.0 Hypertensive urgency (principal); I11.9 Hypertensive heart disease without heart failure; R41.0 Disorientation, unspecified; E03.9 Hypothyroidism, unspecified; G47.00 Insomnia, unspecified; K59.09 Other constipation; J45.909 Unspecified asthma, uncomplicated; F41.9 Anxiety disorder, unspecified; Z79.899 Other long term (current) drug therapy; Z80.0 Family history of malignant neoplasm of digestive organs; Z83.6 Family history of other diseases of the respiratory system
CPT/HCPCS: 36415; 70450; 80053; 80306; 80320; 81000; 84439; 84443; 84484; 85025; 85027; 93005; 93306; 93880; G0378

== ENCOUNTER → 2020-04-15 | Outpatient (CLI) | payer MEDICARE ==
[~2020-04-15] VITALS: Ht 167 cm; Wt 96.0 kg
[~2020-04-15] MED LIST changes: +ACET-2267 PO; +CATHETER FLUSH 10 ML SYR IV PRN; +FLUT1BLS12 PO; +LEVO112T55 PO; +LORA-405 PO; +LOSA25TA41 PO; +MTP25TSR PO; +ONDA4TAB11 PO; +REGADENOSON 0.4 MG/5 ML SYR (LEXISCAN) IV ONE; +TRAM50TA3 PO
[2020-04-15 13:26] VITALS: BP 150/61
--- NOTE | 2020-04-16 09:14 | Cardiology Stress Test Report ---
Stress Test Report Date of Procedure/Referring: Date of Procedure: Apr 16, 2020 PCP Kelly Mejia MD Admitting Physician Damari Finn MD Indications: Hypertension Baseline Heart Rate: 56 Baseline Blood Pressure: Blood Pressure Systolic: 150 Blood Pressure Diastolic: 61 Baseline Vitals Vital Signs Date Time Temp Pulse Resp B/P (MAP) Pulse Ox O2 Delivery O2 Flow Rate FiO2 8 13:26 77 16 150/61 (90) 95 Room Air Baseline EKG: Baseline EKG: normal sinus rhythm Summary After explaining the procedure to the patient, she signed a consent and then brought to the stress nuclear laboratory. Patient received 0.4 mg Lexiscan for stress test, ECG, heart rate and blood pressure were monitored continuously. Resting and stress dose of radio tracer were injected, imaging was acquired and reviewed in short axis, horizontal long axis and vertical long axis views. TID: 1.12 SSS: 8 SDS: 4 EF: 60 1. Patient tolerated Lexiscan well 2. Extracardiac attenuation affecting the quality of the study, there is questionable reversible ischemia involving the basal to mid inferior wall and inferoseptum, could be secondary to the increased intestinal uptake 3. Normal left ventricular size with normal contractility, EF 60 percent KELLY MEJIA MD Apr 16, 2020 09:13
== END ==
LOC: CARD 10:28
PROVIDERS: ATTEND Internal Medicine Cardiovascular Disease
DX: I16.1 Hypertensive emergency (principal); I51.89 Other ill-defined heart diseases
CPT/HCPCS: 78452; 93017; A9502

== ENCOUNTER 2020-07-08 13:23 | Outpatient (RCR) | payer MEDICARE, MEDICAID, OTHER ==
[~2020-07-08 13:23] MED LIST changes: -CATHETER FLUSH 10 ML SYR IV PRN; +LEVO125T6 PO; +LOSA50TA63 PO; -REGADENOSON 0.4 MG/5 ML SYR (LEXISCAN) IV ONE
== END 2020-07-13 | disposition home or self-care (01) ==
PROVIDERS: ATTEND Family Medicine
DX: M54.5 Low back pain (principal); R53.1 Weakness

== ENCOUNTER 2020-07-13 05:25 | Outpatient (RCR) | payer MEDICARE, MEDICAID, OTHER ==
[~2020-07-13] VITALS: Ht 167 cm; Wt 95.9 kg
[2020-07-15] MEDS ORDERED: HYDR-4226 PO (13:27)
== END 2020-07-13 10:15 | disposition home or self-care (01) ==
LOC: PREOP 05:25
PROVIDERS: ATTEND Surgery
DX: Z01.812 Encounter for preprocedural laboratory examination (principal); Z20.828 Contact with and (suspected) exposure to other viral communicable diseases
CPT/HCPCS: 87635

== ENCOUNTER 2020-07-15 11:43 | Day surgery (SDC) | payer MEDICARE, MEDICAID, OTHER ==
[2020-07-15] VITALS (10 sets, daily range): BP systolic 147–183; BP diastolic 61–78
[~2020-07-15] VITALS: Ht 167 cm; Wt 95.9 kg
[2020-07-15] MEDS ORDERED: LACTATED RINGERS 1,000 ML IV PRN (11:52)
[2020-07-15] MEDS ORDERED: ceFAZolin 2 GM IV Premixed 50 ML IV ONE (12:00)
[2020-07-15] MEDS ORDERED: LIDOCAINE/EPI 1%-1:100,000 (XYLOCAINE) 20ML ONE (12:26)
--- NOTE | 2020-07-15 12:42 | Progress Note-Pre Operative ---
Pre-Operative Progress Note H&P Reviewed The H&P was reviewed, patient examined and no changes noted. Time Seen by Provider: 12:39 Date H&P Reviewed: Jul 15, 2020 Time H&P Reviewed: 12:40 Pre-Operative Diagnosis: Right upper back mass WILSON AMOR DO Jul 15, 2020 12:42
[2020-07-15] MEDS ORDERED: ROCURONIUM 10 MG/ML 5 ML SYRINGE IV ONE (12:49)
[2020-07-15] MEDS ORDERED: SEVOFLURANE (ULTANE) 15 ML INHAL SOLN ONE ×2 (12:50→13:50)
[2020-07-15] MEDS ORDERED: ONDANSETRON 4 MG/2 ML (SDV) Z0FRAN ONE (12:50)
[2020-07-15] MEDS ORDERED: fentaNYL INJECTION 100 MCG/2 ML AMP ONE (12:50)
[2020-07-15] MEDS ORDERED: MIDAZOLAM 2 MG/2 ML (VERSED) VIAL ONE (12:50)
[2020-07-15] MEDS ORDERED: proPOfol 200 MG/20 ML (DIPRIVAN) VIAL IV ONE (12:50)
[2020-07-15] MEDS ORDERED: LIDOCAINE PF 2% 5 ML (XYLOCAINE) VIAL ONE (12:50)
--- NOTE | 2020-07-15 13:26 | Progress Note-Post Operative ---
Post-Operative Progess Note Surgeon (s)/Burrer Hand (s) Surgeon WILSON AMOR DO Burrer Hand: BLAKE Cartwright Pre-Operative Diagnosis Right upper back mass Post-Operative Diagnosis same pending path Procedure & Operative Findings Date of Procedure 07/15/20 Procedure Performed/Findings Exc of upper back mass, 4.3cm incision into subQ fat Anesthesia Type GET Estimated Blood Loss Estimated blood loss (mL): scant Specimens/Packing Specimens Removed back mass WILSON AMOR DO Jul 15, 2020 13:26
[2020-07-15] MEDS ORDERED: HYDR-4226 PO (13:27)
--- NOTE | 2020-07-15 13:28 | Discharge Inst-Surgical ---
Discharge Inst-Surgical Depart Medication/Instructions New, Converted or Re-Newed RX: RX Given to Pt/Family Patient Instructions Follow up Appt: Make appointment for 1 week. [phone] Instructions: No lifting greater than 20 pounds. No strenuous activity. May shower in 24 hours, no tub bath or soaking. Use incentive spirometer at home as directed. No Smoking Skin/Wound Care: May remove bandages in am. You need to leave the Dermabond on incision it will fall off on it's own. Symptoms to Report: Appetite Changes, Extremity Discoloration, Numbness/Tingling, Swelling Increased, Bleeding Excessive, Eyesight Changes, Pain Increased, Urine Color Change, Constipation(Persistent), Fever over 101 degree F, Pain/Pressure in chest, Urinating Difficulty, Cough Up/Vomit Blood, Heart Beat Irreg/Pounding, Pain/Pressure in jaw, Cramps in feet or legs, Lightheadedness, Pain/Pressure in shoulder, Diarrhea(Persistent), Memory Changes Suddenly, Questions/Concerns, Weight gain consecutive days, Dizziness/Fainting, Nausea/Vomiting, Shortness of Breath, Weight gain over 2 pounds If questions or concerns contact your physician Or seek help at emergency department. Activity Activity as Tolerated: Yes Activity Instructions: Avoid Stress to Incision Driving Instructions: No Driving/Refer to Dr. Paula Discharge Diet: No Restrictions Diet After 24 Hours: Clear Liquid if Nauseous If Any Problems/Questions/Issu: Contact Your Physician, Go to Emergency Room Skin/Wound Care Infection Signs and Symptoms: Increased Redness, Foul Odor of Wound, Increased Drainage, Skin Itchy or Has a Rash, Increased Swelling, Temperature Above 101 F Bathing Instructions: Shower Stitches/Macho/Dermabond Dis: WISLON Gilliam DO Jul 15, 2020 13:28
[2020-07-15] MEDS ORDERED: fentaNYL INJECTION 100 MCG/2 ML AMP IVP ONE (13:30)
[2020-07-15] MEDS ORDERED: MEPERIDINE (DEMEROL) INJ 50 MG/ML IVP ONE (13:30)
[2020-07-15] MEDS ORDERED: ONDANSETRON 4 MG/2 ML (SDV) Z0FRAN IVP PRN (13:30)
[2020-07-15] MEDS ORDERED: morphine INJ 10 MG/ML 1ML (SYR OR VIAL) IVP ONE (13:30)
--- NOTE | 2020-07-15 15:50 | NUR ---
HAS BEEN ALERT AND CHEERFUL THROUGHOUT RECOVERY. DENIES PAIN, DERMABOND INTACT TO MID BACK SURGICAL SITE. TAKING PO FLUIDS WITHOUT PROBLEM. STATES SHE IS READY FOR DISMISSAL. STEADY GAIT WHEN UP TO DRESS FOR HOME.
--- NOTE | 2020-07-15 23:52 | OPERATIVE REPORT ---
DATE OF SERVICE: 07/15/2020 PREOPERATIVE DIAGNOSIS: Right upper back mass. POSTOPERATIVE DIAGNOSIS: Right upper back mass. PROCEDURE: Excision of right upper back mass 4.3 cm incision down into the subcutaneous fat. SURGEON: Gigi Amor DO CHANNEL PROCESS SUPERVISOR: Sandrita Barnett, MS3. ANESTHESIA: General endotracheal tube. SPECIMEN: Right upper back mass. BLOOD LOSS: Scant. FLUIDS: Per anesthesia. POSTOPERATIVE CONDITION: Stable. INDICATION FOR PROCEDURE: The patient is a 79-year-old female who has a right upper back mass that has gotten bigger. It is inflamed. Unsure if it has drained in the past, but it has been bothering her and she wanted to get this removed. FINDINGS: The patient had right upper back mass, removed and sent to pathology. PROCEDURE NOTE: After informed consent was obtained, the patient was brought to the operating room, placed on the table in left lateral decubitus position. She was sterilely prepped and draped in normal fashion. An elliptical incision was made after first infiltrating the skin around this upper mass and inflammation, infiltrated around as well as under it. This is in the right upper back that had been marked and confirmed on time out. At this point, then made an elliptical incision with #15 blade, carried down to skin into subcutaneous tissue, then deepened down to subcutaneous tissue with Bovie electrocautery. This incision measured about 4.3 cm. This was down through the skin and into the subcutaneous fat dissected down with Bovie electrocautery, going around this mass and the inflamed tissue and removed it en bloc, passed off table then did some undermining with Bovie electrocautery. We able to bring the skin edges together. Copiously irrigated with normal saline. Hemostasis obtained using Bovie electrocautery, then closed the incision in 2 layers, closing the deep layer with a 3-0 Vicryl 3 interrupted suture, then closed the skin with a 4-0 undyed Monocryl in a running subcuticular fashion. Area was cleaned and dried. Dermabond placed as well as dressing. The patient tolerated the procedure and transferred to recovery room in stable condition. Sponge, instrument and needle count correct at the end of the case. Job ID: [id number] DocumentID: [id number] Dictated Date: 07/15/2020 13:46:41 Learning And Development Associate Date: 07/15/2020 23:51:42 Dictated By: GIGI AMOR DO
== END 2020-07-15 15:50 | disposition home or self-care (01) ==
LOC: SDC 11:43
PROVIDERS: ATTEND Surgery
DX: R22.2 Localized swelling, mass and lump, trunk (principal); D48.1 Neoplasm of uncertain behavior of connective and other soft tissue; I10 Essential (primary) hypertension; J45.909 Unspecified asthma, uncomplicated; E03.9 Hypothyroidism, unspecified; I16.1 Hypertensive emergency; E66.9 Obesity, unspecified; Z68.34 Body mass index [BMI] 34.0-34.9, adult; Z79.899 Other long term (current) drug therapy; Z88.2 Allergy status to sulfonamides; Z88.1 Allergy status to other antibiotic agents; Z86.010 Personal history of colon polyps
CPT/HCPCS: 87081; 88305

== ENCOUNTER 2020-07-22 12:13 | Day surgery (SDC) | payer MEDICARE, MEDICAID ==
[2020-07-22] VITALS (12 sets, daily range): BP systolic 149–177; BP diastolic 63–80
[~2020-07-22] VITALS: Ht 168 cm; Wt 96.0 kg
[~2020-07-22 12:13] MED LIST changes: +HYDR-4226 PO
[2020-07-22] MEDS ORDERED: HEParin (CATH LAB) 2,000 ML IV ONE (12:27)
[2020-07-22] MEDS ORDERED: LIDOCAINE 1% INJ 20 ML 20 ML VIAL ONE (12:27)
[2020-07-22] MEDS ORDERED: NS IV 1000 ML 1,000 ML ONE (12:27)
[2020-07-22] MEDS ORDERED: NS IV 1000 ML 1,000 ML IV SCH ×2 (12:30→14:25)
[2020-07-22 13:02] LABS: HEMOGLOBIN 12.8 g/dL (11.5-16.0); MEAN PLATELET VOLUME 12.1 fL (9.0-12.2); WHITE BLOOD COUNT 6.4 10^3/uL (4.3-11.0)
--- NOTE | 2020-07-22 13:13 | Diagnostic Imaging Report ---
INDICATION: Chest pain and hypertension. AP view of the chest is obtained with comparison made to study of 11/29/2016. FINDINGS: Heart size and pulmonary vascularity are within normal limits, and the lungs are clear, bilaterally. Ring-shaped density in the visualized proximal left humerus could be related to area of bone infarct. IMPRESSION: Unremarkable chest. Dictated by: Dictated on workstation # [id number]
[2020-07-22 13:14] LABS: ALBUMIN 4.2 GM/DL (3.2-4.5); CHLORIDE 106 MMOL/L (98-107); POTASSIUM 3.9 MMOL/L (3.6-5.0); PROTHROMBIN TIME PATIENT 13.2 SEC (12.2-14.7); SODIUM 141 MMOL/L (135-145)
[2020-07-22 13:15] LABS: CALCIUM 8.8 MG/DL (8.5-10.1)
[2020-07-22 13:16] LABS: TOTAL PROTEIN 6.7 GM/DL (6.4-8.2); TRIGLYCERIDES 97 MG/DL (<150); VLDL CHOLESTEROL 19 MG/DL (5-40)
[2020-07-22 13:17] LABS: GLUCOSE 98 MG/DL (70-105)
[2020-07-22 13:18] LABS: BILIRUBIN,TOTAL 0.5 MG/DL (0.1-1.0); CARBON DIOXIDE 24 MMOL/L (21-32)
[2020-07-22] MEDS ORDERED: DOCU100T2 PO (13:18)
[2020-07-22] MEDS ORDERED: METO50TA7 PO (13:18)
[2020-07-22 13:20] LABS: ALKALINE PHOSPHATASE 64 U/L (40-136); CREATININE SERUM 0.76 MG/DL (0.60-1.30); GFR ESTIMATED > 60
--- NOTE | 2020-07-22 13:20 | NUR ---
I SPOKE WITH THE PATIENT AND WENT THROUGH HER MEDICATIONS BROUGHT FROM HOME TO COMPLETE THIS MED REC. 06/16/20 LEVOTHYROXINE 125MCG #25 06/25/20 LEVOTHYROXINE 112MCG #90 -DIRECTIONS SAY TO TAKE DAILY BUT PATIENT TAKES MON, TUES, TH, FRI AND SAT 06/30/20 LOSARTAN 50MG #15 -DIRECTIONS SAY TO TAKE 1/2 DAILY BUT PATIENT TAKES 1 DAILY 07/21/20 METOPROLOL SUCC ER 50MG #90 OTC: TYLENOL EXTRA STRENGTH DOCUSATE SODIUM
[2020-07-22 13:21] LABS: BUN/CREATININE RATIO 18; CHOLESTEROL 173 MG/DL (< 200)
[2020-07-22 13:22] LABS: HDL CHOLESTEROL 53 MG/DL (40-60)
[2020-07-22 13:23] LABS: ALANINE AMINOTRANSFERASE 19 U/L (0-55)
[2020-07-22] MEDS ORDERED: MIDAZOLAM 5 MG/5 ML (VERSED) VIAL ONE (13:25)
[2020-07-22] MEDS ORDERED: fentaNYL INJECTION 100 MCG/2 ML AMP ONE (13:25)
[2020-07-22] MEDS ORDERED: meTOprolol 5 MG/5 ML (LOPRESSOR) VIAL ONE (13:59)
[2020-07-22] MEDS ORDERED: NITRO DRIP 25000 MCG/D5W 250 ML IV ONE (14:02)
--- NOTE | 2020-07-22 14:25 | Cardiac Procedure Note-CS/ASA ---
Pre-Procedure Note Pre-Op Procedure Note H&P Reviewed The H&P was reviewed, patient examined and no changes noted. Date H&P Reviewed: Jul 22, 2020 Time H&P Reviewed: 14:24 Conscious Sedation Pre-Proced Time 14:24 ASA Score 3 For ASA 3 and 4: Consider anesthesia and medical clearance. Also, for patients with a history of failed moderate sedation consider anesthesia. Airway Lungs Heart ASA score ASA 1: a normal healthy patient ASA 2: a patient with a mild systemic disease (mid diabetes, controlled hypertension, obesity x ASA 3: a patient with a severe systemic disease that limits activity (angina, COPD, prior Myocardial infarction) ASA 4: a patient with an incapacitating disease that is a constant threat to life (CHF, renal failure) ASA 5: a moribund patient not expected to survive 24 hrs. (ruptured aneurysm) ASA 6: a declared brain- patient whose organs are being harvested. For emergent operations, add the letter E after the classification Mallampati Classification Grade 3 Sedation Plan Analgesia, Amnesia, Plan communicated to team members, Discussed options with patient/fam, Discussed risks with patient/fam The patient is an appropriate candidate to undergo the planned procedure, sedation, and anesthesia. The patient immediately re-assessed prior to indication. KELLY ALEXANDRE MD Jul 22, 2020 2:25 pm
--- NOTE | 2020-07-22 14:26 | Discharge Inst-Post CATH ---
Discharge Inst-CATH/EP Problems Reviewed?: Yes Post Cardiac Cath/EP D/C Inst Follow Up/Plan Appointment with Dr. Mejia's office in 4-6 weeks <b>CARDIAC CATH/EP PROCEDURE DISCHARGE INSTRUCTIONS</b> ACTIVITY * Go Home directly and rest. * Limit activity of the leg (or wrist if it was used) for 7 days including aerobics, swimming, jogging, bicycling, etc. * Restrict stair-climbing for 7 days if possible, if not, climb up with your non-cath leg, then bring together on the same step. * Avoid lifting, pushing, pulling or excessive movement of the affected extremity for 7 days. * Customary sexual activity may be resumed after 2 days-use caution not to use a position that strains or causes pain to the affected extremity. * No driving for 24 hours. * NO SMOKING. * Avoid straining for bowel movements for 7 days. * Gentle walking on level ground is allowed. * Returning to work will depend on the type of procedure and the results. Your doctor will discuss this with you. CALL YOUR DOCTOR FOR ANY OF THE FOLLOWING: *If bleeding from the puncture site occurs- Apply gentle pressure to site with clean cloth and call your doctor or EMS. * If a knot or lump forms under the skin, increases in size, or causes pain. * If bruising appears to be worsening or moving further down your leg instead of disappearing. * Temperature above 101 F. CARE OF YOUR GROIN INCISION; * Bruising or purple discoloration of the skin near the puncture site is common. * You may shower only, no bathtub bathing for 5 days. Be careful to avoid slipping as your leg may feel stiff. * If a closure device was used on your femoral artery, please see the attached guide regarding care of the device and your leg. * Leave dressing on FOR 24 hours. CARE OF YOUR WRIST INCISION; * Bruising or purple discoloration of the skin near the puncture site is common. * You may shower. * DO NOT submerge wrist. * Leave dressing on FOR 24 hours. KELLY MEJIA MD Jul 22, 2020 2:26 pm
[2020-07-22] MEDS ORDERED: PATIENT MAY USE OWN MEDS, ALL PO SCH (14:30)
--- NOTE | 2020-07-22 14:32 | Cardiac Cath Report ---
Cardiac Cath Report Physician (s)/Facilities Flight Check Pilot (s) Physician KELLY ALEXANDRE MD Pre-Procedure Diagnosis Pre-Procedure Diagnosis: coronary artery disease Post-Procedure Note Procedure Start Date: Jul 22, 2020 Name of Procedure: Left heart catheterization Findings/Procedure Note PROCEDURE NOTE: 79-year-old lady with history of hypertension, hyperlipidemia, has been having chest pain, had an abnormal stress test scheduled for cardiac catheterization possible PTCA. After explaining the procedure to the patient, all pros and cons were explained, all questions were answered. The patient signed the consent and then she was placed on the cardiac catheterization laboratory. Groin was prepped SL fashion local anesthesia was used. Sheath placed in the right femoral artery. Shaq right and left catheter were used to access the coronary system. Pigtail was used to access the left ventricular cavity. Left ventriculogram was not done pressure was measured At the end of the procedure the sheath was removed. Closure device was used FINDINGS: Hemodynamics LV 189/20, end-diastolic pressure of 20 Aorta 184/67 mean of 109 ANATOMY: Left Main is free of obstructive disease Left Anterior Descending has mild to moderate disease nonobstructive disease in the mid LAD Left Circumflex has mild disease nonobstructive disease Right Coronory Artery has mild disease nonobstructive disease LV Gram was not done, pressure was measured CONCLUSION: 1. Mild to moderate disease in the mid LAD nonobstructive disease 2. Mildly elevated left ventricular end-diastolic pressure 3. Patient was severely hypertensive and required nitroglycerin and IV Lopressor during the procedure DISCUSSION AND RECOMMENDATION: Medical therapy is recommended no intervention is warranted. Anesthesia Type: Conscious Sedation Estimated blood loss (mL): 25 ml Contrast Amount: 45 ml Total Radiation Dose: 310 mGy Post-Procedure Diagnosis Post-operative diagnosis: Coronary artery disease Hypertension Hyperlipidemia Chest pain KELLY ALEXANDRE MD Jul 22, 2020 14:32
== END 2020-07-22 19:20 | disposition home or self-care (01) ==
LOC: CATH 12:13 → SDC 14:26 → CATH 19:20
PROVIDERS: ATTEND Internal Medicine Cardiovascular Disease
DX: I25.10 Atherosclerotic heart disease of native coronary artery without angina pectoris (principal); I10 Essential (primary) hypertension; E78.5 Hyperlipidemia, unspecified; R94.39 Abnormal result of other cardiovascular function study; I16.1 Hypertensive emergency; E03.9 Hypothyroidism, unspecified; I65.23 Occlusion and stenosis of bilateral carotid arteries; E66.9 Obesity, unspecified; Z68.34 Body mass index [BMI] 34.0-34.9, adult; Z79.899 Other long term (current) drug therapy; Z88.2 Allergy status to sulfonamides; Z88.8 Allergy status to other drugs, medicaments and biological substances; Z86.03 Personal history of neoplasm of uncertain behavior; Z86.010 Personal history of colon polyps; Z80.9 Family history of malignant neoplasm, unspecified; Z83.3 Family history of diabetes mellitus; Z82.3 Family history of stroke
CPT/HCPCS: 71045; 80053; 80061; 85027; 85610; 85730; 87081; 93458; C1760; C1894; 36415

== ENCOUNTER 2020-07-29 10:50 | Outpatient (RCR) | payer MEDICARE, MEDICAID, OTHER ==
[~2020-07-29 10:50] MED LIST changes: +DOCU100T2 PO; +METO50TA7 PO
== END 2020-08-13 09:15 | disposition home or self-care (01) ==
PROVIDERS: ATTEND Family Medicine
DX: M54.5 Low back pain (principal); R53.1 Weakness

== ENCOUNTER → 2020-10-06 | Outpatient (CLI) | payer MEDICARE, MEDICAID, OTHER ==
--- NOTE | 2020-10-06 14:48 | Diagnostic Imaging Report ---
INDICATION: Postmenopausal state. COMPARISON: 04/10/2014 FINDINGS: AP Spine L1-L4: [BMD (g/cm2): na] [T-Score: na] [Z-Score: na] [BMD Previous: na] [BMD % Change: na] LT Hip Neck: [BMD (g/cm2): 0.743] [T-Score: -2.1] [Z-Score: -0.6] LT Hip Total: [BMD (g/cm2):0.816] [T-Score:-1.5] [Z-Score: -0.2] [BMD Previous: 0.876] [BMD % Change: -6.8] RT Hip Neck: [BMD (g/cm2):0.758] [T-Score:-2.0] [Z-Score:-0.5] RT Hip Total: [BMD (g/cm2):0.801] [T-score:-1.6] [Z-Score:-0.4] [BMD Previous:0.912] [BMD % Change:-12.2] *Indicates significant change from prior examination based on 95% confidence level. World Health Organization criteria for BMD interpretation classify patients as Normal (T-score at or above -1.0), Osteopenic (T-score between -1.0 and -2.5) or Osteoporotic (T-score at or below -2.5). LIMITATIONS AND MODIFICATION: The lumbar spine was not evaluated secondary to postsurgical changes. FRACTURE RISK (FRAX SCORE): The ten year probability of (%): Major Osteoporotic Fracture: [15.5] Hip Fracture: [4.6] IMPRESSION: 1. Osteopenia (Low bone mass). 2. No significant change in bone mineral density since prior examination. 3. See below National Osteoporosis Foundation guidelines on when to potentially initiate pharmacologic therapy. Based on the National Osteoporosis Foundation Guidelines, pharmacologic treatment should be initiated in any of the following, unless clinical conditions suggest otherwise: * Any patient with prior fragility fracture of the hip or vertebrae. A spine fracture indicates 5X risk for subsequent spine fracture and 2X risk for subsequent hip fracture. * Osteoporosis (T-score <-2.5). * Postmenopausal women and men age 50 and older with low bone mass/osteopenia (T-score between -1.0 and -2.5) by DXA and 10-year major osteoporotic fracture greater than 20% or a 10-year probability of hip fracture greater than 3%. These fracture risks are supplied above in the FRAX score, if applicable. * Clinician judgement and/or patient preferences may indicate treatment for people with 10-year fracture probabilities above or below these levels. Dictated by: Dictated on workstation # [id number]
--- NOTE | 2020-10-06 15:55 | Diagnostic Imaging Report ---
INDICATION: Routine screening. COMPARISON: 12/26/2017 and 04/13/2016. TECHNIQUE: 2D and 3D bilateral screening mammography was performed with CAD. FINDINGS: Both breasts remain heterogeneously dense, limiting the sensitivity of mammography. There are benign parenchymal and vascular calcifications bilaterally. No mass or malignant appearing microcalcifications are seen. The axillae are unremarkable. IMPRESSION: No mammographic features suspicious for malignancy are identified. ACR BI-RADS Category 2: Benign findings. Result letter will be mailed to the patient. Note: At least 10% of breast cancer is not imaged by mammography. Dictated by: Dictated on workstation # [id number]
== END ==
LOC: RAD 12:29
PROVIDERS: ATTEND Family Medicine
DX: Z12.31 Encounter for screening mammogram for malignant neoplasm of breast (principal); M85.88 Other specified disorders of bone density and structure, other site; Z78.0 Asymptomatic menopausal state
CPT/HCPCS: 77063; 77067; 77080

== ENCOUNTER 2020-11-02 05:55 | Outpatient (RCR) | payer MEDICARE, MEDICAID, OTHER ==
[~2020-11-02] VITALS: Ht 165.1 cm; Wt 95.8 kg
[2020-11-04] MEDS ORDERED: LEVO125T6 PO (09:59)
[2020-11-04] MEDS ORDERED: MTP100TCR PO (09:59)
[2020-11-04] MEDS ORDERED: LOSA100T57 PO (09:59)
== END 2020-11-04 13:13 | disposition home or self-care (01) ==
LOC: PREOP 05:55
PROVIDERS: ATTEND Surgery
DX: Z01.818 Encounter for other preprocedural examination (principal)

== ENCOUNTER 2020-11-09 06:53 | Day surgery (SDC) | payer MEDICARE, MEDICAID, OTHER ==
[~2020-11-09] VITALS: Ht 165 cm; Wt 95.8 kg
[~2020-11-09 06:53] MED LIST changes: +LOSA100T57 PO; +MTP100TCR PO
[2020-11-09] MEDS ORDERED: LACTATED RINGERS 1,000 ML IV ONE (07:17)
[2020-11-09] MEDS ORDERED: LACTATED RINGERS 1,000 ML IV STA (07:17)
[2020-11-09] MEDS ORDERED: PROPOFOL INJECTION 50 ML IV ONE (07:22)
[2020-11-09 07:46] VITALS: BP 140/57
--- NOTE | 2020-11-09 08:09 | Progress Note-Pre Operative ---
Pre-Operative Progress Note H&P Reviewed The H&P was reviewed, patient examined and no changes noted. Time Seen by Provider: 08:06 Date H&P Reviewed: Nov 09, 2020 Time H&P Reviewed: 08:07 Pre-Operative Diagnosis: Hx of colon polyp WILSON AMOR DO Nov 09, 2020 08:09
[2020-11-09 08:45] VITALS: BP 179/74
--- NOTE | 2020-11-09 08:46 | Progress Note-Post Operative ---
Post-Operative Progess Note Surgeon (s)/Packing Machine Feeder (s) Surgeon WILSON AMOR DO Packing Machine Feeder: BLAKE Burns Pre-Operative Diagnosis Hx of colon polyp Post-Operative Diagnosis Polyps Diverticula Int Hemorrhoids Procedure & Operative Findings Date of Procedure 11/09/20 Procedure Performed/Findings Colon with snare Anesthesia Type IV sedation by SUPERVISOR REWORK Estimated Blood Loss Estimated blood loss (mL): scant Specimens/Packing Specimens Removed asc colon polyp transverse colon polyp descending colon polyp WILSON AMOR DO Nov 09, 2020 08:46
--- NOTE | 2020-11-09 08:47 | Endoscopy Discharge Instruct ---
Endo Procedure/Findings Findings 1.: Polyp 2.: Diverticulosis 3.: Internal Hemorrhoids Discharge Instructions - Activity: You might feel a little sleepy until tomorrow. This is due to the medicine you received to relax you. Until tomorrow, you should: NOT drive a car, operate machinery or power tools. NOT drink any alcoholic beverages. NOT make any important decisions or sign importortant papers. Do not return to work until tomorrow, unless otherwise instructed. Resume previous activities tomorrow. Diet: Start by taking liquids. If you tolerate liquids, advance to solid food. 1.: Colonoscopy in 1 year Notify Physician - If you experience excessive bleeding, unusual abdominal pain, fever, or chest pain, contact your doctor immediately. WILSON AMOR DO Nov 09, 2020 08:47
[2020-11-09 08:50] VITALS: BP 170/72
[2020-11-09 09:20] VITALS: BP 152/69
[2020-11-09 09:40] VITALS: BP 152/69
--- NOTE | 2020-11-09 12:38 | Anesthesia-General Post-Op ---
MAC Patient Condition Mental Status/LOC: Same as Preop Cardiovascular: Satisfactory Nausea/Vomiting: Absent Respiratory: Satisfactory Pain: Controlled Complications: Absent Post Op Complications Complications None Follow Up Care/Instructions Patient Instructions None needed. Anesthesiology Discharge Order Discharge Order Patient is doing well, no complaints, stable vital signs, no apparent adverse anesthesia problems. No complications reported per nursing. MARIANNE WHITTINGTON CRNA Nov 09, 2020 12:38
--- NOTE | 2020-11-10 17:50 | OPERATIVE REPORT ---
DATE OF SERVICE: 11/09/2020 PREOPERATIVE DIAGNOSIS: History of colon polyps. POSTOPERATIVE DIAGNOSES: Colon polyps, diverticula, internal hemorrhoids. PROCEDURES PERFORMED: Colonoscopy with snare polypectomy. SURGEON: Gigi Amor DO. SUPERVISOR SINTERING PLANT: Usama , MS3. SPECIMEN: Transverse colon polyp, ascending colon polyp and descending colon polyp. BLOOD LOSS: Scant. FLUIDS: Per anesthesia. POSTOPERATIVE CONDITION: Stable. INDICATION FOR PROCEDURE: The patient is an 80-year-old female, who had multiple polyps and actually one large one in the ascending colon. These were removed. All sent to pathology. PROCEDURE NOTE: After informed consent was obtained, the patient was brought to the endoscopy suite and placed in the bed in left lateral decubitus position. She was administered IV sedation by the WHITE SUGAR SYRUP OPERATOR, who then monitored her vitals the entire time, heart rate, blood pressure and pulse ox and the scope was inserted. On the way in, I noted a polyp in the transverse colon, took a picture of this and then did a snare polypectomy. Also noted some diverticula, took a picture of this, just outside the cecum, saw a large polyp, elected to get into the cecum, took a picture of the appendiceal orifice, noted the ileocecal valve and actually able to get into terminal ileum and then slowly withdrew the scope into the ascending colon and removed this large ascending colon polyp with a snare polypectomy. It was too large to suction up, so I had to place a Vera Net to be able to grasp this and it continued to come out, coming up the ascending colon to the hepatic flexure, then down the transverse colon, the splenic flexure, into the descending colon. In the descending colon, saw another large polyp, I elected to drop the polyp, pulled it, brought that out and then put a snare polypectomy in, did a snare polypectomy of this descending colon polyp and then able to suction this back up, then placed a Vera Net back in, grasped the ascending colon polyp and continued on our way out, removed completely and then put the scope back in and retroflexed the scope, saw some small internal hemorrhoids. All polyps sent to the pathology. The patient tolerated the procedure and recovered in the endoscopy suite. Job ID: [id number] DocumentID: [id number] Dictated Date: 11/10/2020 13:13:51 Industrial Refrigeration Mechanic Date: 11/10/2020 17:49:30 Dictated By: GIGI AMOR DO
== END 2020-11-09 09:40 | disposition home or self-care (01) ==
LOC: ENDO 06:53
PROVIDERS: ATTEND Surgery
DX: D12.3 Benign neoplasm of transverse colon (principal); D12.2 Benign neoplasm of ascending colon; D12.4 Benign neoplasm of descending colon; K57.30 Diverticulosis of large intestine without perforation or abscess without bleeding; K64.8 Other hemorrhoids; I10 Essential (primary) hypertension; J45.909 Unspecified asthma, uncomplicated; F41.9 Anxiety disorder, unspecified; E03.9 Hypothyroidism, unspecified; E66.01 Morbid (severe) obesity due to excess calories; Z68.35 Body mass index [BMI] 35.0-35.9, adult; Z79.899 Other long term (current) drug therapy; Z88.2 Allergy status to sulfonamides; Z88.1 Allergy status to other antibiotic agents; Z86.010 Personal history of colon polyps; Z80.9 Family history of malignant neoplasm, unspecified

== ENCOUNTER 2021-11-15 06:31 | Outpatient (CLI) | payer MEDICARE, MEDICAID ==
[~2021-11-15] VITALS: Ht 165.1 cm; Wt 97.1 kg
[2021-11-15] MEDS ORDERED: MV-M1TAB20 PO (14:31)
[2021-11-15] MEDS ORDERED: POLY119P5 PO (14:31)
[2021-11-15] MEDS ORDERED: METO50TA7 PO (14:31)
== END 2021-11-15 15:38 | disposition home or self-care (01) ==
LOC: PREOP 06:31
PROVIDERS: ATTEND Surgery
DX: Z01.818 Encounter for other preprocedural examination (principal)

== ENCOUNTER 2021-11-22 09:14 | Day surgery (SDC) | payer MEDICARE, MEDICAID ==
[~2021-11-22] VITALS: Ht 165 cm; Wt 97.1 kg
[~2021-11-22 09:14] MED LIST changes: +MV-M1TAB20 PO; +POLY119P5 PO
[2021-11-22] MEDS ORDERED: LACTATED RINGERS 1,000 ML IV ONE (09:18)
[2021-11-22] MEDS ORDERED: LACTATED RINGERS 1,000 ML IV STA (09:29)
[2021-11-22 09:30] VITALS: BP 164/67
--- NOTE | 2021-11-22 09:35 | Progress Note-Pre Operative ---
Pre-Operative Progress Note H&P Reviewed The H&P was reviewed, patient examined and no changes noted. Time Seen by Provider: 09:34 Date H&P Reviewed: Nov 22, 2021 Time H&P Reviewed: 09:34 Pre-Operative Diagnosis: Hx of polyps WILSON AMOR DO Nov 22, 2021 09:35
[2021-11-22] MEDS ORDERED: PROPOFOL INJECTION 50 ML IV ONE (11:15)
[2021-11-22 11:46] VITALS: BP 174/76
--- NOTE | 2021-11-22 11:46 | Progress Note-Post Operative ---
Post-Operative Progess Note Surgeon (s)/Director Operations Broadcast (s) Surgeon WILSON AMOR DO Director Operations Broadcast: BLAKE Christian Pre-Operative Diagnosis Hx of polyps Post-Operative Diagnosis polyps diverticula int hemorrhoids Procedure & Operative Findings Date of Procedure 11/22/21 Procedure Performed/Findings Colonoscopy with snare polypectomy Colonoscopy with cold biopsy PROCEDURE NOTE: After informed consent was obtained, the patient was brought to the endoscopy suite, placed in bed in left lateral decubitus position. She was administered IV sedation by the BOW REPAIRER CUSTOM who then monitored her vitals the entire time, heart rate, blood pressure and pulse ox and the scope was inserted, pushed all the way to about 150 cm and pushed into the cecum. Took a picture of appendiceal orifice, noted the ileocecal valve and then slowly withdrew the scope insufflating to look circumferentially at the childers. Starting in the cecum, up the ascending colon where I found a small flat polyp and elected to get a cold biopsy of it; too small to snare. Then up a little further found a larger polyp that I wanted to remove completely and therefore did a snare polypectomy. Continue up to the hepatic flexure, then down the transverse colon, splenic flexure, into the descending colon down in the sigmoid and then into the rectal vault and took picture of the internal hemorrhoids as I pulled the scope out. The patient tolerated the procedure. She was recovered in endoscopy suite. Anesthesia Type IV sedation by BOW REPAIRER CUSTOM Estimated Blood Loss Estimated blood loss (mL): scant Specimens/Packing Specimens Removed asc colon polyp x 2 WILSON AMOR DO Nov 22, 2021 11:46
--- NOTE | 2021-11-22 11:47 | Endoscopy Discharge Instruct ---
Endo Procedure/Findings Findings 1.: Polyp 2.: Diverticulosis 3.: Internal Hemorrhoids Discharge Instructions - Activity: You might feel a little sleepy until tomorrow. This is due to the medicine you received to relax you. Until tomorrow, you should: NOT drive a car, operate machinery or power tools. NOT drink any alcoholic beverages. NOT make any important decisions or sign importortant papers. Do not return to work until tomorrow, unless otherwise instructed. Resume previous activities tomorrow. Diet: Start by taking liquids. If you tolerate liquids, advance to solid food. 1.: Colonscopy in 5 years Notify Physician - If you experience excessive bleeding, unusual abdominal pain, fever, or chest pain, contact your doctor immediately. WILSON AMOR DO Nov 22, 2021 11:47
[2021-11-22 11:51] VITALS: BP 177/77
[2021-11-22 11:55] VITALS: BP 178/77
[2021-11-22 12:25] VITALS: BP 112/90
--- NOTE | 2021-11-22 12:34 | Anesthesia-General Post-Op ---
MAC Patient Condition Mental Status/LOC: Same as Preop Cardiovascular: Satisfactory Nausea/Vomiting: Absent Respiratory: Satisfactory Pain: Controlled Complications: Absent Post Op Complications Complications None Follow Up Care/Instructions Patient Instructions None needed. Anesthesiology Discharge Order Discharge Order Patient is doing well, no complaints, stable vital signs, no apparent adverse anesthesia problems. SYDNEY CEBALLOS DO Nov 22, 2021 12:34
== END 2021-11-22 12:39 | disposition home or self-care (01) ==
LOC: ENDO 09:14
PROVIDERS: ATTEND Surgery
DX: Z12.11 Encounter for screening for malignant neoplasm of colon (principal); D12.3 Benign neoplasm of transverse colon; K57.30 Diverticulosis of large intestine without perforation or abscess without bleeding; K64.8 Other hemorrhoids; L82.1 Other seborrheic keratosis

== ENCOUNTER 2022-01-06 12:50 | Outpatient (RCR) | payer MEDICARE, MEDICAID | END 2022-01-08 | disposition home or self-care (01) | PROVIDERS: ATTEND Nurse Practitioner Family | DX: M54.50 Low back pain, unspecified (principal); R53.1 Weakness ==

== ENCOUNTER 2022-01-26 12:34 | Outpatient (RCR) | payer MEDICARE, MEDICAID | END 2022-01-26 13:20 | disposition home or self-care (01) | PROVIDERS: ATTEND Nurse Practitioner Family | DX: M54.50 Low back pain, unspecified (principal); I10 Essential (primary) hypertension; J45.909 Unspecified asthma, uncomplicated; R53.1 Weakness ==

== ENCOUNTER → 2022-08-17 | Outpatient (CLI) | payer MEDICARE, MEDICAID | LOC: CARD 12:49 | PROVIDERS: ATTEND Physician Assistant | DX: I11.9 Hypertensive heart disease without heart failure (principal) | CPT/HCPCS: 93306 ==

== ENCOUNTER → 2022-09-23 | Outpatient (CLI) | payer MEDICARE, MEDICAID ==
--- NOTE | 2022-09-23 12:50 | Diagnostic Imaging Report ---
INDICATION: Routine screening. Comparison is made with prior mammogram 10/06/2020 and 12/26/2017. 2-D and 3-D bilateral screening mammography was performed with CAD. CAD is utilized. The current study was also evaluated with a Computer Aided Detection (CAD) system. Both breasts are heterogeneously dense, limiting the sensitivity of mammography. There are scattered benign parenchymal and vascular calcifications bilaterally. No mass or malignant-appearing microcalcifications are identified. Axillae are unremarkable. IMPRESSION: BI-RADS Category 2 No mammographic features suspicious for malignancy are identified. ACR BI-RADS Category 2: Benign findings. Result letter will be mailed to the patient. Note: At least 10% of breast cancer is not imaged by mammography. Dictated by: Dictated on workstation # [id number]
== END ==
LOC: RAD 11:00
PROVIDERS: ATTEND Nurse Practitioner Family
DX: Z12.31 Encounter for screening mammogram for malignant neoplasm of breast (principal)
CPT/HCPCS: 77063; 77067

== ENCOUNTER 2023-04-05 05:31 | Outpatient (CLI) | payer MEDICARE, MEDICAID ==
[~2023-04-05] VITALS: Ht 165.1 cm; Wt 90.0 kg
[~2023-04-05 05:31] MED LIST changes: -LOSA100T57 PO; +LOSA100T58 PO; +NYST15CR35 TP; +[UNRECOGNIZED DRUG - CODE] MC
[2023-04-05] MEDS ORDERED: LACT1CAP39 PO (15:24)
[2023-04-05] MEDS ORDERED: AMLO2.5T4 PO (15:24)
[2023-04-05] MEDS ORDERED: MELA1TAB63 PO (15:24)
[2023-04-05] MEDS ORDERED: ACET-3075 PO (15:24)
[2023-04-05] MEDS ORDERED: ALEN70TA80 PO (15:24)
== END 2023-04-05 15:36 ==
LOC: PREOP 05:31
PROVIDERS: ATTEND Surgery
DX: Z01.818 Encounter for other preprocedural examination (principal)

== ENCOUNTER 2023-04-12 07:37 | Day surgery (SDC) | payer MEDICARE, MEDICAID ==
[2023-04-12] VITALS (12 sets, daily range): BP systolic 114–166; BP diastolic 39–84
[~2023-04-12] VITALS: Ht 165.1 cm; Wt 90.0 kg
[~2023-04-12 07:37] MED LIST changes: +ACET-3075 PO; +ALEN70TA80 PO; +AMLO2.5T4 PO; +LACT1CAP39 PO; +MELA1TAB63 PO
[2023-04-12] MEDS ORDERED: LIDOCAINE 1% w/EPI 1:100,000 20 ML VIAL ONE (07:58)
[2023-04-12] MEDS ORDERED: LIDOCAINE 1% w/EPI 1:100,000 20 ML VIAL INJ ONE (08:03)
[2023-04-12] MEDS ORDERED: IOHEXOL 300 MG/ML 30 ML (OMNIPAQUE 300) VIAL INJ ONE (08:04)
[2023-04-12] MEDS ORDERED: ceFAZolin INJECTION 2,000 MG in NS (IVPB) 50 ML 50 ML IV ONE (08:15)
--- NOTE | 2023-04-12 08:21 | Progress Note-Pre Operative ---
Pre-Operative Progress Note Date H&P Reviewed: Apr 12, 2023 Time H&P Reviewed: 08:16 History & Physical: H&P Reviewed, Patient Examed, No changes noted Pre-Operative Diagnosis: Cholelithiasis/Cholecystitis WILSON AMOR DO Apr 12, 2023 08:21
[2023-04-12] MEDS ORDERED: ONDANSETRON 4 MG/2 ML (SDV) Z0FRAN ONE ×2 (08:24→10:08)
[2023-04-12] MEDS ORDERED: LIDOCAINE PF 2% 5 ML VIAL ONE (08:24)
[2023-04-12] MEDS ORDERED: proPOfol 200 MG/20 ML (DIPRIVAN) VIAL IV ONE (08:24)
[2023-04-12] MEDS ORDERED: fentaNYL INJECTION 100 MCG/2 ML VIAL ONE (08:24)
[2023-04-12] MEDS: LACTATED RINGERS 1,000 ML IV PRN ×2 (08:31→11:28)
[2023-04-12] MEDS ORDERED: ROCURONIUM 50 MG/5 ML (ZEMURON) VIAL IV ONE (10:08)
[2023-04-12] MEDS ORDERED: NEOSTIGMINE (BLOXIVERZ ) 1 MG/1ML 10 ML VIAL ONE (10:40)
[2023-04-12] MEDS ORDERED: GLYCOPYRROLATE INJ 0.2 MG/ML 2 ML VIAL ONE (10:40)
--- NOTE | 2023-04-12 10:44 | Progress Note-Post Operative ---
Post-Operative Progess Note Surgeon (s)/Nail Galvanizer (s) Surgeon WILSON AMOR DO Nail Galvanizer: Ellyn Pre-Operative Diagnosis Cholelithiasis/Cholecystitis Post-Operative Diagnosis same with adhesions Procedure & Operative Findings Date of Procedure 04/12/23 Procedure Performed/Findings PROCEDURE: Laparoscopic cholecystectomy with intraoperative cholangiogram. COMPLICATIONS: None. PROCEDURE: The patient was taken to the operating suite and was prepped and draped in sterile fashion. A surgical pause was performed. Just superior to the umbilicus, a 12 mm incision was made. Dissection was taken down to the fascia, which was then scored and grasped with a Luz Maria and the abdomen was then entered. An 0 Vicryl suture was placed in a [id number] fashion and a Villafana trocar was placed and secured. Pneumoperitoneum was achieved. A 5mm trochar place in the subxyphoid and 2 in the right upper quadrant. Upon entering noted a large amount of adhesions to the gallbladder; the omentum and duodenum. This usually indicates previous gallbladder attacks. These were taken down carefully with blunt disse ction and with bovie cautery. This area was very inflamed, the gallbladder was then grasped at the fundus and taken in the superior direction. Another grasper was used at Flores's pouch to pull infero-lateral. The cystic duct and cystic artery were then dissected out. Clip was placed on the distal portion of the cystic duct which was then partially transected. An arrow catheter was inserted into the duct. The cholangiogram was then performed. No filling defects and contrast made its way into the duodenum. Catheter removed. Clips were placed on proximal portion of the cystic duct and then the duct was then transected. Clips were placed along the proximal and distal portion of the cystic artery which was then transected. Hook cautery was used to dissect the gallbladder from the gallbladder fossa, it was intrahepatic and the gallbladder was very thickened in this area; finally achieving hemostasis. The gallbladder was placed in an Endobag and removed through the 12 mm trocar site. The abdomen was then re- inspected. Copious amounts of irrigation were used to irrigate the abdomen and there were no signs of active bleeding. Hemostasis had been achieved. The 12 mm fascial defect was then closed with 0 Vicryl suture that had been placed in a [id number] fashion. The abdomen was then desufflated, the trocars were removed. The abdomen was then washed and dried. The skin was then closed using 4-0 Monocryl in a subcuticular fashion. The abdomen was washed and dried and Skin Affix was place over incisions. Patient tolerated the procedure well without any complications and was taken to the recovery room in stable condition. Dr. Ragland assisted on this case helping to make incisions, close incisions, identify anatomy and hold anatomy out of the way. Anesthesia Type GET Estimated Blood Loss Estimated blood loss (mL): appx 20ml Specimens/Packing Specimens Removed GB and contents WILSON AMOR DO Apr 12, 2023 10:44
[2023-04-12] MEDS ORDERED: ACHD5005 PO (10:45)
--- NOTE | 2023-04-12 10:46 | Discharge Inst-Surgical ---
Discharge Inst-Surgical Depart Medication/Instructions New, Converted or Re-Newed RX: Transmitted to Pharmacy Patient Instructions Follow up Appt: Make appointment for 1 week. [phone] Instructions: No lifting greater than 20 pounds. No strenuous activity. May shower in 24 hours, no tub bath or soaking. Use incentive spirometer at home as directed. No Smoking Skin/Wound Care: May remove bandages in am. You need to leave the Dermabond on incision it will fall off on it's own. Symptoms to Report: Appetite Changes, Extremity Discoloration, Numbness/Tingling, Swelling Increased, Bleeding Excessive, Eyesight Changes, Pain Increased, Urine Color Change, Constipation(Persistent), Fever over 101 degree F, Pain/Pressure in chest, Urinating Difficulty, Cough Up/Vomit Blood, Heart Beat Irreg/Pounding, Pain/Pressure in jaw, Cramps in feet or legs, Lightheadedness, Pain/Pressure in shoulder, Diarrhea(Persistent), Memory Changes Suddenly, Questions/Concerns, Weight gain consecutive days, Dizziness/Fainting, Nausea/Vomiting, Shortness of Breath, Weight gain over 2 pounds If questions or concerns contact your physician Or seek help at emergency department. Activity Activity as Tolerated: Yes Activity Instructions: Avoid Stress to Incision Driving Instructions: No Driving/Refer to Diet Discharge Diet: Avoid Fatty Foods, Low Fat/Low Cholesterol Diet After 24 Hours: Clear Liquid if Nauseous If Any Problems/Questions/Issu: Contact Your Physician, Go to Emergency Room Skin/Wound Care Infection Signs and Symptoms: Increased Redness, Foul Odor of Wound, Increased Drainage, Skin Itchy or Has a Rash, Increased Swelling, Temperature Above 101 F Wound Care Comment: heating pad to shoulder or neck tonight for pain Bathing Instructions: Shower Stitches/Colstrip/Dermabond Dis: Dermabond Ice Pack: Ice On and Off Site WILSON AMOR DO Apr 12, 2023 10:46
[2023-04-12] MEDS ORDERED: morphine INJ 10 MG/ML 1ML (SYR OR VIAL) ONE (11:24)
--- NOTE | 2023-04-12 11:24 | Anesthesia-General Post-Op ---
General Patient Condition Mental Status/LOC: Same as Preop Cardiovascular: Satisfactory Nausea/Vomiting: Absent Respiratory: Satisfactory Pain: Controlled Complications: Absent Post Op Complications Complications None Follow Up Care/Instructions Patient Instructions None needed. Anesthesia/Patient Condition Patient Condition Patient is doing well, no complaints, stable vital signs, no apparent adverse anesthesia problems. No complications reported per nursing. MARIANNE WHITTINGTON CRNA Apr 12, 2023 11:24
[2023-04-12] MEDS ORDERED: ONDANSETRON 4 MG/2 ML (SDV) Z0FRAN IVP PRN (11:30)
[2023-04-12] MEDS ORDERED: morphine INJ 10 MG/ML 1ML (SYR OR VIAL) IVP ONE (11:30)
[2023-04-12] MEDS ORDERED: HYDROmorphone INJECTION 2 MG/ML VIAL ONE (11:48)
[2023-04-12] MEDS ORDERED: HYDROmorphone INJECTION 2 MG/ML VIAL IV ONE (12:00)
[2023-04-12] MEDS ORDERED: HYDROcodone/ACETAMINOPHEN 5 MG/325 MG TABLET PO ONE (12:45)
[2023-04-12] MEDS ORDERED: HYDROcodone/ACETAMINOPHEN 5 MG/325 MG TABLET ONE (12:46)
--- NOTE | 2023-04-12 17:37 | Diagnostic Imaging Report ---
INDICATION: Fluoroscopy during intraoperative cholangiogram. Fluoroscopy was provided in the OR during intraoperative cholangiogram. 11 seconds of fluoroscopic time was utilized. 50 images were obtained. Images demonstrate contrast being injected via the cystic duct remnant. Extrahepatic bile duct is moderately dilated, but no filling defects are seen. Contrast flows into the duodenum. IMPRESSION: Fluoroscopy during intraoperative cholangiogram. Dictated by: Dictated on workstation # [id number]
== END 2023-04-12 17:10 | disposition home or self-care (01) ==
LOC: SDC 07:37
PROVIDERS: ATTEND Surgery
DX: K80.10 Calculus of gallbladder with chronic cholecystitis without obstruction (principal); E66.01 Morbid (severe) obesity due to excess calories; Z68.33 Body mass index [BMI] 33.0-33.9, adult
CPT/HCPCS: 76000; 87081; 88304; 94664

== ENCOUNTER 2023-05-26 05:07 | Observation (INO) | payer MEDICARE, MEDICAID ==
[~2023-05-26] VITALS: Ht 167.7 cm; Wt 88.0 kg
[~2023-05-26 05:07] MED LIST changes: +ACHD5005 PO
--- NOTE | 2023-05-26 05:29 | ED Respiratory ---
General Stated Complaint: COVID+,SOB Source: patient History of Present Illness Date Seen by Provider: May 26, 2023 Time Seen by Provider: 05:11 Initial Comments PT ARRIVES VIA EMS FROM HOME--PT LIVES ALONE PT BEGAN GETTING SICK ON Monday05/24/23 WITH: -PRODUCTIVE COUGH WITH CLEAR SPUTUM -MILD SHORTNESS OF BREATH -TEMP UP TO 99 -SORE THROAT -HEADACHE -BODY ACHES NO GI SYMPTOMS SHE WAS SEEN AT THE WALK IN CLINIC AT [facility] ON MONDAY AND TESTED POSITIVE FOR COVID NO RX OR TREATMENT WAS GIVEN NO TREATMENT BY EMS PT PRESENTS TONIGHT FOR INCREASED SHORTNESS OF BREATH, STATES SHE CAN'T SLEEP DUE TO DIFFICULTY BREATHING SHE HAS HISTORY OF ASTHMA, BUT HAS NOT NEEDED MEDICATIONS IN 2 YEARS AND DOES NOT HAVE ANY INHALERS OR NEBULIZER SHE HAS HTN AND HYPOTHYROIDISM PT HAS HAD COVID VACCINE X 4 PCP: DR. PERRY Allergies and Home Medications Allergies Coded Allergies: sulfamethoxazole (Verified Allergy, Mild, USED OINTMENT-SKIN IRRITATION, 04/12/23) trimethoprim (Verified Allergy, Mild, USED OINTMENT-SKIN IRRITATION, 04/12/23) Patient Home Medication List Acetaminophen (Tylenol Extra Strength) 500 Mg Tablet, 500-1,000 MG PO Q8H PRN for PAIN-MILD (1-4), (Reported) Entered as Reported by: MERISSA VICENTE on 02/18/20 1013 Acetaminophen/Diphenhydramine (Tylenol Pm Ex-Strength Caplet) 500 Mg-25 Mg Tablet, 1 EACH PO HS, (Reported) Entered as Reported by: PRIMO VASQUEZ on 04/05/23 1524 Alendronate Sodium (Alendronate Sodium) 70 Mg Tablet, 70 MG PO MONDAY, (Reported) Entered as Reported by: PRIMO VASQUEZ on 04/05/23 1524 Amlodipine Besylate (Amlodipine Besylate) 2.5 Mg Tablet, 2.5 MG PO DAILY, (Reported) Entered as Reported by: PRIMO VASQUEZ on 04/05/23 1524 Hydrocodone/Acetaminophen (Hydrocodone-Acetamin 5-325 mg) 5 Mg-325 Mg Tablet, 1 TAB PO Q8H PRN for PAIN-MODERATE (5-7) Prescribed by: WILSON AMOR on 04/12/23 1045 Lactobacillus Rhamnosus GG (Culturelle) 10 Billion Cell Capsule, 1 EACH PO DAILY, (Reported) Entered as Reported by: PRIMO VASQUEZ on 04/05/23 1524 Levothyroxine Sodium (Levothyroxine Sodium) 125 Mcg Tablet, 125 MCG PO DAILY, (Reported) Entered as Reported by: STEVE MCKAY on 11/04/20 0959 Losartan Potassium (Losartan Potassium) 100 Mg Tablet, 100 MG PO DAILY, (Reported) Entered as Reported by: STEVE MCKAY on 11/04/20 0959 Melatonin (Melatonin) Unknown Strength Tab.rapdis, Unknown Dose PO, (Reported) Entered as Reported by: PIRMO VASQUEZ on 04/05/23 1524 Metoprolol Succinate (Metoprolol Succinate) 50 Mg Tab.er.24h, 50 MG PO DAILY, (Reported) Entered as Reported by: STEVE MCKAY on 11/15/21 1431 Mv-Mn/Iron/FA/Herbal Cmplx#190 (Vitamin D3 Complete Caplet) 1 Each Tablet, 1 EACH PO DAILY, (Reported) Entered as Reported by: STEVE MCKAY on 11/15/21 1431 Polyethylene Glycol 3350 (Miralax) 119 Gm Powder, 119 GM PO PRN, (Reported) Entered as Reported by: STEVE MCKAY on 11/15/21 1431 Review of Systems Review of Systems Constitutional: see HPI, fever, malaise, weakness EENTM: see HPI, nose congestion, throat pain Respiratory: see HPI, cough, phlegm, short of breath Cardiovascular: no symptoms reported; No chest pain Gastrointestinal: no symptoms reported Genitourinary: no symptoms reported Musculoskeletal: see HPI, other (BODY ACHES) Skin: no symptoms reported Psychiatric/Neurological: See HPI, Headache Past Bzipzaf-Fxnbbx-Zxpjix Hx Patient Social History Tobacco Use?: No Substance use?: No Alcohol Use?: No Immunizations Up To Date First/Initial COVID19 Vaccinat: DECEMBER 2020 Second COVID19 Vaccination Jose: 06/2021 Third COVID19 Vaccination Date: NO Seasonal Allergies Seasonal Allergies: No Past Medical History Surgery/Hospitalization HX: BACK SURGERY 15 YRS AGO, HTN, ASTHMA Surgeries: Yes (PARTIAL THYROIDECTOMY, CYST REMOVED FROM TAILBONE; LUMBAR SPINE SURGERY) Orthopedic, Thyroidectomy Respiratory: Yes Asthma Currently Using BIPAP: No Cardiac: Yes Hypertension Neurological: Yes (RESTING TREMOR) 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 Disorders: No Female 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 Sexually Transmitted Disease: No HIV/AIDS: No Genitourinary: Yes (CHRONIC URINARY INCONTINENCE) Gastrointestinal: Yes (PERIANAL FISTULA/ CONSTIPATION) Chronic Constipation, Chronic Diarrhea, Gall Bladder Disease Musculoskeletal: Yes (LUMBAR SPINE SURGERY) Degenerate Disk Disease, Arthritis, Chronic Back Pain Endocrine: Yes (BENIGN TUMOR OF THYROID REMOVED) Hypothyroidsim HEENT: Yes (CATARACT SURGERY) Cataract Loss of Vision: Denies Hearing Impairment: Denies Cancer: Yes Skin Did You Recieve Any Treatments: Yes What Type of Treatment Did You: Surgical Intervention Psychosocial: Yes Anxiety Integumentary: Yes (GROIN RASH FROM IRRITATION WEARS BRIEFS) Blood Disorders: No Adverse Reaction/Blood Tranf: No (N/A) Family Medical History Alcoholism 19 FATHER 19 MOTHER Asthma 19 FATHER Cancer of mouth 19 FATHER (CANCER OF THE LAYARANX) Cardiovascular disease 19 MOTHER (AORTIC VALVE REPLACED) Cataracts 19 MOTHER (MACULAR DEGENERATION) Colon cancer 19 FATHER 19 MOTHER Dementia 19 MOTHER Heart Disease, Cancer, Other Conditions/Hx Physical Exam Vital Signs - First Documented Capillary Refill : Height: 5'6.00" Weight: 208lbs. 5.0oz. 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 nml as tested, no motor/sensory deficits, alert, normal mood/affect, oriented x 3 Skin: normal color, warm/dry Focused Exam Lactate Level 05/26/23 05:23: Lactic Acid Level 0.93 Lactic Acid Level Laboratory Tests Test 05/26/23 05:23 Lactic Acid Level 0.93 MMOL/L (0.50-2.00) Progress/Results/Core Measures Suspected Sepsis SIRS Temperature: Pulse: Respiratory Rate: Laboratory Tests 05/26/23 05:23: White Blood Count 5.6 Blood Pressure / Mean: 05/26/23 05:23: Lactic Acid Level 0.93 Laboratory Tests 05/26/23 05:23: Creatinine 0.91, INR Comment 1.0, Platelet Count 153, Total Bilirubin 0.4 Results/Orders Lab Results Laboratory Tests Test 05/26/23 05:23 Range/Units White Blood Count 5.6 4.3-11.0 10^3/uL Red Blood Count 3.70 L 3.80-5.11 10^6/uL Hemoglobin 11.8 11.5-16.0 g/dL Hematocrit 36 35-52 % Mean Corpuscular Volume 97 80-99 fL Mean Corpuscular Hemoglobin 32 25-34 pg Mean Corpuscular Hemoglobin Concent 33 32-36 g/dL Red Cell Distribution Width 13.1 10.0-14.5 % Platelet Count 153 130-400 10^3/uL Mean Platelet Volume 11.4 9.0-12.2 fL Immature Granulocyte % (Auto) 1 % Neutrophils (%) (Auto) 75 42-75 % Lymphocytes (%) (Auto) 15 12-44 % Monocytes (%) (Auto) 10 0-12 % Eosinophils (%) (Auto) 0 0-10 % Basophils (%) (Auto) 0 0-10 % Neutrophils # (Auto) 4.2 1.8-7.8 10^3/uL Lymphocytes # (Auto) 0.8 L 1.0-4.0 10^3/uL Monocytes # (Auto) 0.6 0.0-1.0 10^3/uL Eosinophils # (Auto) 0.0 0.0-0.3 10^3/uL Basophils # (Auto) 0.0 0.0-0.1 10^3/uL Immature Granulocyte # (Auto) 0.0 0.0-0.1 10^3/uL Prothrombin Time 13.6 12.2-14.7 SEC INR Comment 1.0 0.8-1.4 Activated Partial Thromboplast Time 35 24-35 SEC Sodium Level 135 135-145 MMOL/L Potassium Level 3.9 3.6-5.0 MMOL/L Chloride Level 99 98-107 MMOL/L Carbon Dioxide Level 24 21-32 MMOL/L Anion Gap 12 5-14 MMOL/L Blood Urea Nitrogen 16 7-18 MG/DL Creatinine 0.91 0.60-1.30 MG/DL Estimat Glomerular Filtration Rate 63 BUN/Creatinine Ratio 18 Glucose Level 107 H 70-105 MG/DL Lactic Acid Level 0.93 0.50-2.00 MMOL/L Calcium Level 8.9 8.5-10.1 MG/DL Corrected Calcium 8.7 8.5-10.1 MG/DL Total Bilirubin 0.4 0.1-1.0 MG/DL Aspartate Amino Transf (AST/SGOT) 17 5-34 U/L Alanine Aminotransferase (ALT/SGPT) 10 0-55 U/L Alkaline Phosphatase 63 40-136 U/L Total Protein 6.7 6.4-8.2 GM/DL Albumin 4.2 3.2-4.5 GM/DL My Orders Orders - HAM MITTAL DO Vital Signs Adult Sepsis Patie Q15M (05/26/23 05:09) Remove Rings In Anticipation O (05/26/23 05:09) Ed Iv/Invasive Line Start (05/26/23 05:09) Ekg Tracing (05/26/23 05:09) O2 (05/26/23 05:09) Monitor-Rhythm Ecg Trace Only (05/26/23 05:09) Cbc With Automated Diff (05/26/23 05:09) Comprehensive Metabolic Panel (05/26/23 05:09) Blood Culture (05/26/23 05:09) Sputum Culture (05/26/23 05:09) Urinalysis (05/26/23 05:09) Urine Culture (05/26/23 05:09) Protime With Inr (05/26/23 05:09) Partial Thromboplastin Time (05/26/23 05:09) Chest 1 View, Ap/Pa Only (05/26/23 05:09) Ed Iv/Invasive Line Start (05/26/23 05:09) Ed Iv/Invasive Line Start (05/26/23 05:09) O2 (05/26/23 05:09) Lactic Acid Analyzer (05/26/23 05:09) Dexamethasone Injection (Dexamethasone (05/26/23 05:30) Acetaminophen Tablet (Acetaminophen Ta (05/26/23 05:30) Ibuprofen Tablet (Ibuprofen Tablet) (05/26/23 05:30) Ipratropium/Albuterol Inh Soln (Ipratrop (05/26/23 05:30) Budesonide Inhalation Solution (Budesoni (05/26/23 05:30) Rt Request For Service (05/26/23 05:29) Svn Small Volume Nebulizer (05/26/23 05:29) Svn Small Volume Nebulizer (05/26/23 05:29) Ed Admission (Communication) (05/26/23 06:44) Medications Given in ED Current Medications Medications Dose Ordered Sig/Kulwant Route Start Time Stop Time Status Last Admin Dose Admin Acetaminophen 1,000 mg ONCE ONCE PO 05/26/23 05:30 05/26/23 05:31 DC 05/26/23 05:40 1,000 MG Albuterol/ Ipratropium 3 ml ONCE ONCE INH 05/26/23 05:30 05/26/23 05:31 DC 05/26/23 05:40 3 ML Budesonide 0.5 mg ONCE ONCE INH 05/26/23 05:30 05/26/23 05:31 DC 05/26/23 05:42 0.5 MG Dexamethasone Sodium Phosphate 10 mg ONCE ONCE IV 05/26/23 05:30 05/26/23 05:31 DC 05/26/23 05:40 10 MG Ibuprofen 800 mg ONCE ONCE PO 05/26/23 05:30 05/26/23 05:31 DC 05/26/23 05:40 800 MG Vital Signs/I&O 05/26/23 05/26/23 05:40 05:40 Temp 37.4 37.4 Capillary Refill : Progress Note : Progress Note PLACED IN ISOLATION ROOM, PPE WORN VITALS ON ARRIVAL: TEMP GIVEN: -NEB TREATMENT -DECADRON Departure Impression Primary Impression: COVID-19 virus infection Additional Impressions: Hypoxia Asthma Disposition: ADMITTED INPATIENT Condition: Stable Admissions Decision to Admit Reason: Admit from ER (General) Decision to Admit/Date: May 26, 2023 Time/Decision to Admit Time: 06:45 Departure-Patient Inst. Referrals: KEVEN PERRY MD (PCP/Family) Primary Care Physician HAM MITTAL DO May 26, 2023 05:29
[2023-05-26] MEDS ORDERED: RT-BUDESONIDE NEBS 0.5 MG/2ML VIAL INH ONE (05:30)
[2023-05-26] MEDS ORDERED: ACETAMINOPHEN 500 MG TABLET PO ONE (05:30)
[2023-05-26] MEDS ORDERED: dexAMETHasone INJ 10 MG/ML 1 ML VIAL IV ONE (05:30)
[2023-05-26] MEDS ORDERED: RT-Ipratropium/Albuterol NEB 3 ML VIAL INH ONE (05:30)
[2023-05-26] MEDS ORDERED: IBUPROFEN 800 MG TABLET PO ONE (05:30)
[2023-05-26 05:42] LABS: BASOPHILS % (AUTO) 0 % (0-10); EOSINOPHILS % (AUTO) 0 % (0-10); HEMATOCRIT 36 % (35-52); HEMOGLOBIN 11.8 g/dL (11.5-16.0); LYMPHOCYTES # (AUTO) 0.8 10^3/uL (1.0-4.0); LYMPHOCYTES % (AUTO) 15 % (12-44); MEAN CORPUSCULAR HEMOGLOBIN 32 pg (25-34); MEAN CORPUSCULAR HGB CONC 33 g/dL (32-36); MEAN CORPUSCULAR VOLUME 97 fL (80-99); MEAN PLATELET VOLUME 11.4 fL (9.0-12.2); MONOCYTES # (AUTO) 0.6 10^3/uL (0.0-1.0); MONOCYTES % (AUTO) 10 % (0-12); NEUTROPHILS # (AUTO) 4.2 10^3/uL (1.8-7.8); NEUTROPHILS % (AUTO) 75 % (42-75); PLATELET COUNT 153 10^3/uL (130-400); WHITE BLOOD COUNT 5.6 10^3/uL (4.3-11.0)
[2023-05-26 05:51] LABS: PROTHROMBIN TIME PATIENT 13.6 SEC (12.2-14.7)
[2023-05-26 05:52] LABS: ALBUMIN 4.2 GM/DL (3.2-4.5)
[2023-05-26 05:53] LABS: POTASSIUM 3.9 MMOL/L (3.6-5.0)
[2023-05-26 05:54] LABS: CALCIUM 8.9 MG/DL (8.5-10.1)
[2023-05-26 05:55] LABS: TOTAL PROTEIN 6.7 GM/DL (6.4-8.2)
[2023-05-26 05:57] LABS: BILIRUBIN,TOTAL 0.4 MG/DL (0.1-1.0)
[2023-05-26 05:59] LABS: CREATININE SERUM 0.91 MG/DL (0.60-1.30)
--- NOTE | 2023-05-26 07:31 | Diagnostic Imaging Report ---
INDICATION: COVID + , DYSPNEA TECHNIQUE: Single view chest 5:43 AM CORRELATION STUDY: 07/22/2020 FINDINGS: The heart size, mediastinal configuration and pulmonary vascularity are within normal limits. The lungs are clear with no consolidating infiltrate. There is no significant effusion or pneumothorax. IMPRESSION: 1. Negative appearing single view chest. Dictated by: Dictated on workstation # [id number]
[2023-05-26 09:06] VITALS: BP 144/90
[2023-05-26] MEDS ORDERED: diphenhydrAMINE INJ 50 MG/ML VIAL IVP PRN (09:15)
[2023-05-26] MEDS ORDERED: ONDANSETRON 4 MG ORAL DISSOLVE TABLET PO PRN (09:15)
[2023-05-26] MEDS ORDERED: ANTACID SUSPENSION 30 ML UDC PO PRN (09:15)
[2023-05-26] MEDS ORDERED: CALCIUM CARBONATE 500 MG CHEW TABLET PO PRN (09:15)
[2023-05-26] MEDS ORDERED: BISACODYL 10 MG SUPPOSITORY PR PRN (09:15)
[2023-05-26] MEDS ORDERED: LACTULOSE SYRUP 10GM/15ML 30ML UDC PO PRN (09:15)
[2023-05-26] MEDS ORDERED: ONDANSETRON INJECTION 4 MG/2 ML (SDV) IV PRN (09:15)
[2023-05-26] MEDS ORDERED: guaiFENesin/CODEINE 10ML UDC PO PRN (09:15)
[2023-05-26] MEDS ORDERED: MILK OF MAGNESIA 400 MG/5 ML 30 ML UDC PO PRN (09:15)
[2023-05-26] MEDS ORDERED: HYDROmorphone INJECTION 2 MG/ML VIAL IV PRN (09:15)
[2023-05-26] MEDS ORDERED: NIRMATRELVIR/RITONAVIR (PAXLOVID) TABLET PO SCH ×2 (09:15→10:00)
[2023-05-26 09:38] VITALS: BP 144/90
[2023-05-26] MEDS: ENOXAPARIN 40 MG/0.4 ML SYRINGE SC SCH (09:50)
[2023-05-26] MEDS: NS IV 1000 ML 1,000 ML IV SCH (09:51)
[2023-05-26] MEDS ORDERED: LORATADINE 10 MG TABLET PO NR (11:30)
[2023-05-26] MEDS ORDERED: LACTULOSE SYRUP 10GM/15ML 30ML UDC PO NR (11:30)
[2023-05-26] MEDS ORDERED: AZITHROMYCIN INJECTION 500 MG in NS (IVPB) 250 ML 250 ML IV ONE (12:00)
[2023-05-26] MEDS ORDERED: guaiFENesin 600 MG TABLET PO NR (12:00)
--- NOTE | 2023-05-26 12:29 | History & Physical ---
NIKKOGERMÁN 05/26/23 1229: History of Present Illness History of Present Illness Reason for visit/HPI Patient is an 82-year-old female who presented to the ED via EMS on 05/26 with CC of SOB. Starting on Monday, she had a cough productive of clear sputum, mild SOB, sore throat, headache, and body aches. She was seen at the [facility] walk-in clinic and tested + for COVID. Her symptoms worsened over the next two days, increasing SOB and difficulty sleeping due to SOB, leading to her presentation to the ED this morning. She has a history of asthma, but reports that she has not needed any medication, inhalers, or nebulizers for approximately 20 years, states her symptoms resolved after she got rid of the cats in her house. She was given nebs and decadron in the ED. She is seen this morning laying in bed, no family at bedside. She reports that her SOB has greatly improved, still having cough with clear sputum, throat feels slightly irritated. She also reports that she is constipated, has not had a BM for 4-5 days, states she has this problem intermittently, usually resolves with miralax. Patient was on 2L supplemental O2 for a short period, currently on room air. Patient has no other complaints. Date of Admission May 26, 2023 at 08:09 Date Seen by a Provider: May 26, 2023 Time Seen by a Provider: 11:15 I consulted on this patient on 05/26/23 12:24 Attending Physician Damari Finn MD Admitting Physician Admitting Physician: Dina Ramires DO Attending Physician: Dina Ramires DO Consult Allergies and Home Medications Allergies Coded Allergies: sulfamethoxazole (Verified Allergy, Mild, USED OINTMENT-SKIN IRRITATION, 04/12/23) trimethoprim (Verified Allergy, Mild, USED OINTMENT-SKIN IRRITATION, 04/12/23) Patient Home Medication List Acetaminophen (Tylenol Extra Strength) 500 Mg Tablet, 500-1,000 MG PO Q8H PRN for PAIN-MILD (1-4), (Reported) Entered as Reported by: MERISSA VICENTE on 02/18/20 1013 Acetaminophen/Diphenhydramine (Tylenol Pm Ex-Strength Caplet) 500 Mg-25 Mg Tablet, 1 EACH PO HS, (Reported) Entered as Reported by: PRIMO VASQUEZ on 04/05/23 152 Alendronate Sodium (Alendronate Sodium) 70 Mg Tablet, 70 MG PO MONDAY, (Reported) Entered as Reported by: PRIMO VASQUEZ on 04/05/23 152 Amlodipine Besylate (Amlodipine Besylate) 2.5 Mg Tablet, 2.5 MG PO DAILY, (Reported) Entered as Reported by: PRIMO VASQUEZ on 04/05/23 152 Hydrocodone/Acetaminophen (Hydrocodone-Acetamin 5-325 mg) 5 Mg-325 Mg Tablet, 1 TAB PO Q8H PRN for PAIN-MODERATE (5-7) Prescribed by: WILSON AMOR on 04/12/23 1045 Lactobacillus Rhamnosus GG (Culturelle) 10 Billion Cell Capsule, 1 EACH PO DAILY, (Reported) Entered as Reported by: PRIMO VASQUEZ on 04/05/23 152 Levothyroxine Sodium (Levothyroxine Sodium) 125 Mcg Tablet, 125 MCG PO DAILY, (Reported) Entered as Reported by: STEVE MCKAY on 11/04/20 0959 Losartan Potassium (Losartan Potassium) 100 Mg Tablet, 100 MG PO DAILY, (Reported) Entered as Reported by: STEVE MCKAY on 11/04/20 0959 Melatonin (Melatonin) Unknown Strength Tab.rapdis, Unknown Dose PO, (Reported) Entered as Reported by: PRIMO VASQUEZ on 04/05/23 152 Metoprolol Succinate (Metoprolol Succinate) 50 Mg Tab.er.24h, 50 MG PO DAILY, (Reported) Entered as Reported by: STEVE MCKAY on 11/15/21 1431 Mv-Mn/Iron/FA/Herbal Cmplx#190 (Vitamin D3 Complete Caplet) 1 Each Tablet, 1 EACH PO DAILY, (Reported) Entered as Reported by: STEVE MCKAY on 11/15/21 1431 Polyethylene Glycol 3350 (Miralax) 119 Gm Powder, 119 GM PO PRN, (Reported) Entered as Reported by: STEVE MCKAY on 11/15/21 1431 Past Abmrmdi-Zfjfci-Wlzhiz Hx Patient Social History Tobacco Use?: No Use of E-Cig and/or Vaping dev: No Substance use?: No Alcohol Use?: No Pt feels they are or have been: No Immunizations Up To Date Date of Influenza Vaccine: Jun 17, 2021 First/Initial COVID19 Vaccinat: DECEMBER 2020 Second COVID19 Vaccination Jose: 06/2021 Tetanus Booster (TDap): Unknown Date of Pneumonia Vaccine: Sep 11, 2006 Seasonal Allergies Seasonal Allergies: No Current Status status: No status: No Advance Directives: Yes Advance Directive Location: Unable to obtain copy Communicates: Verbally Primary Language: Bolivian Preferred Spoken Language: Bolivian Is interpretation needed?: No Sensory deficits: Vision impairment Implanted or Applied Medical D: None Past Medical History Surgeries: Orthopedic, Thyroidectomy Asthma Currently Using BIPAP: No Hypertension 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 Sexually Transmitted Disease: No HIV/AIDS: No Chronic Constipation, Chronic Diarrhea, Gall Bladder Disease Degenerate Disk Disease, Arthritis, Chronic Back Pain Hypothyroidsim Cataract Loss of Vision: Denies Hearing Impairment: Denies Skin Did You Recieve Any Treatments: Yes What Type of Treatment Did You: Surgical Intervention Anxiety Blood Disorders: No Adverse Reaction/Blood Tranf: No (N/A) Family Medical History Alcoholism 19 FATHER 19 MOTHER Asthma 19 FATHER Cancer of mouth 19 FATHER (CANCER OF THE LAYARANX) Cardiovascular disease 19 MOTHER (AORTIC VALVE REPLACED) Cataracts 19 MOTHER (MACULAR DEGENERATION) Colon cancer 19 FATHER 19 MOTHER Dementia 19 MOTHER Heart Disease, Cancer, Other Conditions/Hx Review of Systems Constitutional: No chills, No fever (reports she had a temp of 99 yesterday, no fever today) EENTM: No hearing loss, No blurred vision Respiratory: cough (clear sputum), short of breath (improved) Cardiovascular: No chest pain, No palpitations Gastrointestinal: No abdominal pain; constipation; No nausea, No vomiting Genitourinary: No dysuria, No hematuria Musculoskeletal: No back pain, No neck pain Skin: No change in color, No change in hair/nails Psychiatric/Neurological: Denies Numbness, Denies Weakness Physical Exam Vital Signs Vital Signs - First Documented 05/26/23 05/26/23 05:09 09:06 Temp 37.4 Pulse 70 Resp 22 B/P (MAP) 115/80 (92) Pulse Ox 98 O2 Delivery Room Air O2 Flow Rate 2.00 Capillary Refill : Less Than 3 Seconds Height, Weight, BMI Height: 5'6.00" Weight: 208lbs. 5.0oz. 94.307695tg; 31.29 BMI Method:Stated General Appearance: No Apparent Distress, WD/WN HEENT: PERRL/EOMI, Pharyngeal Erythema (slight) Neck: Non Tender, Supple Respiratory: Chest Non Tender, No Accessory Muscle Use, No Respiratory Distress, Rhonci (all lea, patient reports she sounded worse in ED) Cardiovascular: Regular Rate, Rhythm, No Edema, Normal Peripheral Pulses Gastrointestinal: Non Tender, Soft Rectal: Deferred Back: No Vertebral Tenderness Extremity: Normal Capillary Refill, Non Tender, No Calf Tenderness, No Pedal Edema Neurologic/Psychiatric: Alert, Oriented x3 Skin: Normal Color, Warm/Dry Lymphatic: No Adenopathy Assessment/Plan Assessment and Plan Acute hypoxic respiratory failure due to COVID: isolation protocol, Continue dexamethasone, paxlovid, and nebs, supplemental O2 as needed. Also started on azithromycin and rocephin to cover for superimposed bacterial infection Hx of asthma: Started on montelukast today, continue nebs, supplemental O2 as needed HTN: restart home BP meds Hypothyroidism: Home levothyroxine Constipation: laxatives Lovenox for DVT prophylaxis DINA RAMIRES DO 05/27/23 0615: History of Present Illness History of Present Illness Reason for visit/HPI CC: COVID with acute bronchitis and asthma exacerbation HPI: This is an 82yoWF clinic patient of Dr Finn who has a h/o asthma alt javad no issues since she removed her cats 20 years ago who presented to the ER with dyspnea and dx of COVID. She had O2 requirements of 2L so due to asthma with wheezing and hypoxia she was admitted. She reports copious amounts of sputum while coughing and due to her coarse breath sounds I will treat for acute bronchitis Allergies and Home Medications Allergies Coded Allergies: sulfamethoxazole (Verified Allergy, Mild, USED OINTMENT-SKIN IRRITATION, 04/12/23) trimethoprim (Verified Allergy, Mild, USED OINTMENT-SKIN IRRITATION, 04/12/23) Patient Home Medication List Home Medication List Reviewed: Yes Acetaminophen (Tylenol Extra Strength) 500 Mg Tablet, 500-1,000 MG PO Q8H PRN for PAIN-MILD (1-4), (Reported) Entered as Reported by: MERISSA VICENTE on 02/18/20 1013 Acetaminophen/Diphenhydramine (Tylenol Pm Ex-Strength Caplet) 500 Mg-25 Mg Tablet, 1 EACH PO HS, (Reported) Entered as Reported by: PRIMO VASQUEZ on 04/05/23 1524 Alendronate Sodium (Alendronate Sodium) 70 Mg Tablet, 70 MG PO MONDAY, (Reported) Entered as Reported by: PRIMO VASQUEZ on 04/05/23 152 Amlodipine Besylate (Amlodipine Besylate) 2.5 Mg Tablet, 2.5 MG PO DAILY, (Reported) Entered as Reported by: PRIMO VASQUEZ on 04/05/23 1524 Hydrocodone/Acetaminophen (Hydrocodone-Acetamin 5-325 mg) 5 Mg-325 Mg Tablet, 1 TAB PO Q8H PRN for PAIN-MODERATE (5-7) Prescribed by: WILSON AMOR on 04/12/23 1045 Lactobacillus Rhamnosus GG (Culturelle) 10 Billion Cell Capsule, 1 EACH PO DAILY, (Reported) Entered as Reported by: PRIMO VASQUEZ on 04/05/23 152 Levothyroxine Sodium (Levothyroxine Sodium) 125 Mcg Tablet, 125 MCG PO DAILY, (Reported) Entered as Reported by: STEVE MCKAY on 11/04/20 0959 Losartan Potassium (Losartan Potassium) 100 Mg Tablet, 100 MG PO DAILY, (Reported) Entered as Reported by: STEVE MCKAY on 11/04/20 0959 Melatonin (Melatonin) Unknown Strength Tab.rapdis, Unknown Dose PO, (Reported) Entered as Reported by: PRIMO VASQUEZ on 04/05/23 152 Metoprolol Succinate (Metoprolol Succinate) 50 Mg Tab.er.24h, 50 MG PO DAILY, (Reported) Entered as Reported by: STEVE MCKAY on 11/15/21 1431 Mv-Mn/Iron/FA/Herbal Cmplx#190 (Vitamin D3 Complete Caplet) 1 Each Tablet, 1 EACH PO DAILY, (Reported) Entered as Reported by: STEVE MCKAY on 11/15/21 1431 Polyethylene Glycol 3350 (Miralax) 119 Gm Powder, 119 GM PO PRN, (Reported) Entered as Reported by: STEVE MCKAY on 11/15/21 1431 Past Razwbfw-Tticcs-Xmwrpz Hx Patient Social History Marrital Status: single Employed/Student: retired Smoking Status: Never a Smoker Past Medical History Asthma Family Medical History Alcoholism 19 FATHER 19 MOTHER Asthma 19 FATHER Cancer of mouth 19 FATHER (CANCER OF THE LAYARANX) Cardiovascular disease 19 MOTHER (AORTIC VALVE REPLACED) Cataracts 19 MOTHER (MACULAR DEGENERATION) Colon cancer 19 FATHER 19 MOTHER Dementia 19 MOTHER Review of Systems Constitutional: see HPI Respiratory: cough (clear sputum), dyspnea on exertion, short of breath (improved), wheezing Physical Exam General Appearance: No Apparent Distress, WD/WN, Anxious, Chronically ill Respiratory: No Accessory Muscle Use, No Respiratory Distress, Rales, Rhonci (all lea, patient reports she sounded worse in ED), Wheezing Cardiovascular: Regular Rate, Rhythm Neurologic/Psychiatric: Alert, Oriented x3 Assessment/Plan Assessment and Plan Acute hypoxic respiratory failure COVID Plan: IV steroids IV abx Problems: (1) COVID-19 virus infection (2) Asthma (3) Hypoxia Admission Diagnosis Admission Status: Observation Supervisory-Addendum Brief Verification & Attestation Participated in pt care: history, MDM, physical Personally performed: exam, history, MDM, supervision of care Care discussed with: Medical Student Procedures: n/a Results interpretation: Verified all documentation Verification and Attestation of Medical Student E/M Service A medical student performed and documented this service in my presence. I reviewed and verified all information documented by the medical student and made modifications to such information, when appropriate. I personally performed the physical exam and medical decision making. Dina Ramires, May 27, 2023,06:10 GERMÁN EL May 26, 2023 12:29 DINA RAMIRES DO May 27, 2023 06:15
[2023-05-26] MEDS: cefTRIAXone IV/IM 1,000 MG in NS (IVPB) 50 ML 50 ML IV SCH (12:43)
[2023-05-26] MEDS ORDERED: PHENOL THROAT SPRAY 177 ML LIQUID MC PRN (12:45)
[2023-05-26 13:27] VITALS: BP 129/78
--- NOTE | 2023-05-26 13:56 | Physical Therapy Evaluation ---
PT Evaluation-General Medical Diagnosis Admission Date May 26, 2023 at 08:09 Medical Diagnosis: PAT SOB Onset Date: May 24, 2023 Therapy Diagnosis Therapy Diagnosis: Gait deficit, strength deficit Height/Weight Height (Feet): 5 Height (Inches): 6.00 Weight (Pounds): 208 Weight (Ounces): 5.0 Precautions Precautions/Isolations: Airborne Isolation, Droplet Isolation Weight Bear Status Right Lower Extremity: Right Full Weight Bearing Left Lower Extremity: Left Full Weight Bearing Referral Physician: Dr. Nix Reason for Referral: Evaluation/Treatment Medical History Pertinent Medical History: HTN Reviewed History: Yes Social History Home: Apartment Current Living Status: Alone Entry Into Home: Stairs Without Railing PT Steps Into Home: 1 Prior Prior Level of Function SCALE: Activities may be completed with or without assistive devices. 9-Vacdqqdpfl-fishcze completes the activity by him/herself with no assistance from a helper. 5-Set-up or Clean-up Assistance-helper sets up or cleans up; patient completes activity. [place] assists only prior to or following the activity. 4-Supervision or Touching Assistance-helper provides verbal cues and/or touching/steadying and/or contact guard assistance as patient completes activity. Assistance may be provided throughout the activity or intermittently. 3-Partial/Moderate Assistance-helper does LESS THAN HALF the effort. [place] lifts, holds or supports trunk or limbs, but provides less than half the effort. 2-Substantial/Maximal Assistance-helper does MORE THAN HALF the effort. [place] lifts or holds trunk or limbs and provides more than half the effort. 0-Gsjmjhsdx-wufvyl does ALL the effort. Patient does none of the effort to complete the activity. Or, the assistance of 2 or more helpers is required for the patient to complete the activity. If activity was not attempted, code reason: 7-Patient Refused. 9-Not Applicable-not attempted and the patient did not perform the activity before the current illness, exacerbation or injury. 10-Not Attempted due to Environmental Limitations-(lack of equipment, weather restraints, etc.). 88-Not Attempted due to Medical Conditions or Safety Concerns. Bed Mobility: 6 Transfers (B,C,W/C): 6 Gait: 6 Stairs: 6 Indoor Mobility (Ambulation): Independent Stairs: Independent Prior Devices Use: Walker Prior Device Use: Cane PT Evaluation-Current Subjective Patient sitting EOB upon PT arrival with ORGANIC PREPARATION TECHNICIAN in room, patient agreeable to treatment. Patient rates pain at 0/10 currently. Objective Patient Orientation: Person, Place, Time, Situation Attachments: Oxygen, IV ROM/Strength ROM Lower Extremities WFLs BLEs all planes. Strength Lower Extremities 3+/5 BLEs all planes Sensory Vision: Functional Hearing: Functional Sensation Right Lower Extremit: Intact Sensation Left Lower Extremity: Intact Transfers Roll Left to Right (QC): 4 Sit to Lying (QC): 4 Lying to Sitting/Side of Bed(Q: 4 Sit to Stand (QC): 4 Chair/Oiy-bt-Fzhdi Xfer(QC): 4 Toilet Transfer (QC): 4 Gait Does the Patient Walk?: Yes Mode of Locomotion: Walk Anticipated Mode of Locomotion: Walk Walk 10 feet (QC): 4 Distance: 12' Gait Assistive Device: FWW Balance Sitting Static: Normal Sitting Dynamic: Normal Standing Static: Good Standing Dynamic: Good Assessment/Needs Patient tolerated treatment well. She performed all bed mobility and transfers with SBA. Patient ambulates 12 feet with FWW, with SBA and verbal cues for safety, progression, and posture. Patient requests to use the BR and reports she will need to have a BM. Patient on the toilet post treatment with all needs met, nursing notified and call light in reach. Rehab Potential: Good PT Fdc Goals Fdc Goals PT Fdc Goals Time Frame: Jun 10, 2023 Roll Left & Right (QC): 6 Sit to Lying (QC): 6 Lying-Sitting on Side/Bed(QC): 6 Sit to Stand (QC): 6 Chair/Nlv-mp-Zbudq Xfer(QC): 6 Toilet Transfer (QC): 6 Car Transfer (QC): 6 Does the Patient Walk: Yes Walk 10 feet (QC): 6 Walk 50ft with 2 Turns (QC): 6 Walk 150 ft (QC): 4 1 Step (curb) (QC): 4 PT Plan Problem List Problem List: Activity Tolerance, Functional Strength, Safety, Balance, Gait, Transfer, Bed Mobility, ROM Treatment/Plan Treatment Plan: Continue Plan of Care Treatment Plan: Bed Mobility, Education, Functional Activity Delgado Treatment Duration: Jun 10, 2023 Frequency: 6 times per week Estimated Hrs Per Day: .25 hour per day Patient and/or Family Agrees t: Yes Safety Risks/Education Patient Education: Gait Training, Transfer Techniques Teaching Recipient: Patient Teaching Methods: Demonstration, Discussion Response to Teaching: Verbalize Understanding, Return Demonstration Time Time In: 1325 Time Out: 1340 DATE: May 26, 2023 Total Billed Treatment Time: 15 Total Billed Treatment Visit, AVELINO MORAES PT May 26, 2023 13:56
[2023-05-26] MEDS: FLUTICASONE/VILANTEROL 100/25 MCG (7 DOSES) IH SCH (14:23)
[2023-05-26] MEDS: RT-ALBUTEROL HFA 8.5 GM INHALER IH SCH ×2 (14:24→20:57)
[2023-05-26 15:10] VITALS: BP 145/57
[2023-05-26 19:25] VITALS: BP 150/79
[2023-05-26] MEDS: MICONAZOLE 2% POWDER 90 GM TOP SCH (20:17)
[2023-05-26] MEDS: SENNOSIDES 8.6 MG TABLET PO SCH (20:17)
[2023-05-26] MEDS: ACETAMINOPHEN 325 MG TABLET PO PRN (20:17)
[2023-05-26] MEDS: MELATONIN 3 MG TABLET PO PRN (20:17)
[2023-05-26] MEDS: DOCUSATE SODIUM 100 MG CAPSULE PO SCH (20:17)
[2023-05-26] MEDS: MONTELUKAST 10 MG TABLET PO SCH (20:17)
[2023-05-26] MEDS: guaiFENesin 600 MG TABLET PO SCH (20:17)
[2023-05-26] MEDS ORDERED: ADVAIR HFA 115/21 MCG INHALER 8 GM IH SCH (21:00)
[2023-05-26 23:15] VITALS: BP 151/64
[2023-05-27] MEDS: RT-ALBUTEROL HFA 8.5 GM INHALER IH SCH ×4 (02:41→20:16)
[2023-05-27] MEDS: NS IV 1000 ML 1,000 ML IV SCH ×2 (02:55→20:13)
[2023-05-27 03:21] VITALS: BP 162/71
[2023-05-27] MEDS: ACETAMINOPHEN 325 MG TABLET PO PRN ×2 (05:11→20:13)
[2023-05-27 05:52] LABS: BASOPHILS % (AUTO) 0 % (0-10); EOSINOPHILS % (AUTO) 0 % (0-10); HEMATOCRIT 32 % (35-52); HEMOGLOBIN 10.6 g/dL (11.5-16.0); LYMPHOCYTES # (AUTO) 0.5 10^3/uL (1.0-4.0); LYMPHOCYTES % (AUTO) 12 % (12-44); MEAN CORPUSCULAR HEMOGLOBIN 31 pg (25-34); MEAN CORPUSCULAR HGB CONC 33 g/dL (32-36); MEAN CORPUSCULAR VOLUME 94 fL (80-99); MEAN PLATELET VOLUME 11.9 fL (9.0-12.2); MONOCYTES # (AUTO) 0.4 10^3/uL (0.0-1.0); MONOCYTES % (AUTO) 11 % (0-12); NEUTROPHILS # (AUTO) 2.9 10^3/uL (1.8-7.8); NEUTROPHILS % (AUTO) 77 % (42-75); PLATELET COUNT 142 10^3/uL (130-400); WHITE BLOOD COUNT 3.7 10^3/uL (4.3-11.0)
[2023-05-27 06:05] LABS: ALBUMIN 3.6 GM/DL (3.2-4.5); BILIRUBIN,TOTAL 0.2 MG/DL (0.1-1.0); CALCIUM 8.4 MG/DL (8.5-10.1); CREATININE SERUM 0.76 MG/DL (0.60-1.30); POTASSIUM 3.7 MMOL/L (3.6-5.0); TOTAL PROTEIN 5.7 GM/DL (6.4-8.2)
[2023-05-27 07:09] VITALS: BP 163/76
[2023-05-27] MEDS: FLUTICASONE/VILANTEROL 100/25 MCG (7 DOSES) IH SCH (08:45)
[2023-05-27] MEDS: dexAMETHasone INJ 10 MG/ML 1 ML VIAL IV SCH (09:03)
[2023-05-27] MEDS: ENOXAPARIN 40 MG/0.4 ML SYRINGE SC SCH (09:03)
[2023-05-27] MEDS: MICONAZOLE 2% POWDER 90 GM TOP SCH ×2 (09:04→20:24)
[2023-05-27] MEDS: guaiFENesin 600 MG TABLET PO SCH ×2 (09:04→20:13)
[2023-05-27] MEDS: SENNOSIDES 8.6 MG TABLET PO SCH ×2 (09:04→20:13)
[2023-05-27] MEDS: LORATADINE 10 MG TABLET PO SCH (09:04)
[2023-05-27] MEDS: DOCUSATE SODIUM 100 MG CAPSULE PO SCH ×2 (09:04→20:13)
[2023-05-27] MEDS: AZITHROMYCIN INJECTION 250 MG in NS (IVPB) 250 ML 250 ML IV SCH (09:40)
--- NOTE | 2023-05-27 10:33 | Physical Therapy Daily Note ---
PT Daily Note-Current Subjective Pt found lying in bed upon entry. Agreed to PT. No reports of pain throughout visit. States that she gets up out of bed about 6 times per day. Pain Section J - Health Conditions 1. Rarely or not at all 2. Occasionally 3. Frequently 4. Almost constantly 8. Unable to answer Pain Effect on Sleep: 1 Pain Interference with Therapy: 1 Pain Interference w/Day-to-Day: 1 Mental Status Patient Orientation: Person, Place Attachments: IV Transfers SCALE: Activities may be completed with or without assistive devices. 1-Tcuipraprt-chbyvns completes the activity by him/herself with no assistance from a helper. 5-Set-up or Clean-up Assistance-helper sets up or cleans up; patient completes activity. [place] assists only prior to or following the activity. 4-Supervision or Touching Assistance-helper provides verbal cues and/or touching/steadying and/or contact guard assistance as patient completes activity. Assistance may be provided throughout the activity or intermittently. 3-Partial/Moderate Assistance-helper does LESS THAN HALF the effort. [place] lifts, holds or supports trunk or limbs, but provides less than half the effort. 2-Substantial/Maximal Assistance-helper does MORE THAN HALF the effort. [place] lifts or holds trunk or limbs and provides more than half the effort. 5-Pgvihhkbs-hhzbye does ALL the effort. Patient does none of the effort to complete the activity. Or, the assistance of 2 or more helpers is required for the patient to complete the activity. If activity was not attempted, code reason: 7-Patient Refused. 9-Not Applicable-not attempted and the patient did not perform the activity before the current illness, exacerbation or injury. 10-Not Attempted due to Environmental Limitations-(lack of equipment, weather restraints, etc.). 88-Not Attempted due to Medical Conditions or Safety Concerns. Sit to Lying (QC): 6 Lying to Sitting/Side of Bed(Q: 6 Sit to Stand (QC): 4 Weight Bearing Right Lower Extremity: Right Full Weight Bearing Left Lower Extremity: Left Full Weight Bearing Gait Training Does the Patient Walk?: Yes Distance: 10, 10 Walk 10 feet (QC): 4 Gait Persons Needed: 1 Gait Assistive Device: FWW Assessment Current Status: Fair Progress Pt performs lying to sitting and sitting to lying transfer independently /c use of bed rails. She then performs sit to stand transfer from edge of bed /c SBA due to strength deficits. Ambulated 10 feet before sitting in chair to look for phone scaler packer. Pt then performs sit to stand transfer from chair and ambulated 10 feet back to edge of bed. Pt displays good balance and step length while ambulating. She then lays back down in bed independently. Pt left supine in bed post-treatment /c call light in place and all needs met. Continue to progress pt per POC. PT Senior Care Goals Ship Erector Goals PT Senior Care Goals Time Frame: Jun 10, 2023 Roll Left & Right (QC): 6 Sit to Lying (QC): 6 Lying-Sitting on Side/Bed(QC): 6 Sit to Stand (QC): 6 Chair/Lay-vw-Gynub Xfer(QC): 6 Toilet Transfer (QC): 6 Car Transfer (QC): 6 Does the Patient Walk: Yes Walk 10 feet (QC): 6 Walk 50ft with 2 Turns (QC): 6 Walk 150 ft (QC): 4 1 Step (curb) (QC): 4 PT Plan Treatment/Plan Treatment Plan: Continue Plan of Care Treatment Plan: Bed Mobility, Education, Functional Activity Delgado Treatment Duration: Jun 10, 2023 Frequency: 6 times per week Estimated Hrs Per Day: .25 hour per day Patient and/or Family Agrees t: Yes Time Time In: 958 Time Out: 1026 DATE: May 27, 2023 Total Billed Treatment Time: 27 Total Billed Treatment 1 visit GT x 1 FA x 1 MARY LEDESMA [employer] May 27, 2023 10:33
[2023-05-27 11:09] VITALS: BP 157/77
[2023-05-27] MEDS: cefTRIAXone IV/IM 1,000 MG in NS (IVPB) 50 ML 50 ML IV SCH (12:10)
[2023-05-27 16:01] VITALS: BP 195/83
--- NOTE | 2023-05-27 16:11 | Progress Note - Hospitalist ---
Subjective HPI/CC On Admission Date Seen by Provider: May 27, 2023 Time Seen by Provider: 11:40 Subjective/Events-last exam She is feeling better. She denies shortness of breath. Her sore throat is better. Her cough is better. She has no complaints. Focused Exam Lactate Level 05/26/23 05:23: Lactic Acid Level 0.93 Objective Exam Vital Signs Vital Signs Date Time Temp Pulse Resp B/P (MAP) Pulse Ox O2 Delivery O2 Flow Rate FiO2 05/27/23 16:01 72 22 195/83 (120) 98 Room Air 05/27/23 11:09 36.8 05/27/23 08:55 0.00 05/27/23 08:19 96 Capillary Refill : Less Than 3 Seconds General Appearance: No Apparent Distress, Obese Respiratory: Lungs Clear, No Respiratory Distress Cardiovascular: Regular Rate, Rhythm, No Murmur Gastrointestinal: Normal Bowel Sounds, Soft Extremity: Normal Inspection, No Pedal Edema Neurologic/Psychiatric: Alert, Normal Mood/Affect Results/Procedures Lab Laboratory Tests 05/27/23 05:00 Patient resulted labs reviewed. Assessment/Plan Assessment and Plan Assess & Plan/Chief Complaint Acute respiratory failure with hypoxia COVID-19 Steroids Rocephin and Azithromycin MAT protocol Supplemental oxygen as needed HTN Hypothyroidism Obesity Continue home meds DVT prophylaxis: Lovenox Diagnosis/Problems Diagnosis/Problems (1) Hypoxia Status: Acute (2) COVID-19 virus infection Status: Acute (3) HTN (hypertension) Status: Acute (4) Hypothyroidism Status: Chronic (5) Obesity Status: Chronic SHAN TRINIDAD MD May 27, 2023 16:11
[2023-05-27] MEDS: LOSARTAN 100 MG TABLET PO SCH (16:36)
[2023-05-27 19:59] VITALS: BP 183/79
[2023-05-27] MEDS: MONTELUKAST 10 MG TABLET PO SCH (20:13)
[2023-05-27] MEDS: MELATONIN 3 MG TABLET PO PRN (20:13)
[2023-05-27] MEDS: NIRMATRELVIR/RITONAVIR (PAXLOVID) TABLET PO SCH (20:22)
[2023-05-27] MEDS ORDERED: hydrALAZINE INJECTION 20 MG/ML VIAL ONE (20:28)
[2023-05-27] MEDS: hydrALAZINE INJECTION 20 MG/ML VIAL IV PRN (20:31)
[2023-05-27 23:31] VITALS: BP 168/71
[2023-05-28] MEDS: ACETAMINOPHEN 325 MG TABLET PO PRN (00:20)
[2023-05-28] MEDS: diphenhydrAMINE 25 MG TABLET PO PRN (00:21)
[2023-05-28] MEDS: RT-ALBUTEROL HFA 8.5 GM INHALER IH SCH ×4 (02:09→21:12)
[2023-05-28 03:11] VITALS: BP 188/74
[2023-05-28] MEDS ORDERED: LEVOTHYROXINE 125 MCG TABLET ONE (03:30)
[2023-05-28] MEDS: oxyCODONE IMMEDIATE RELEASE 5 MG TABLET PO PRN ×3 (03:33→20:10)
[2023-05-28] MEDS: hydrALAZINE INJECTION 20 MG/ML VIAL IV PRN ×2 (03:33→20:11)
[2023-05-28 04:54] VITALS: BP 152/70
[2023-05-28] MEDS: LEVOTHYROXINE 125 MCG TABLET PO SCH (05:21)
[2023-05-28 05:50] LABS: BASOPHILS % (AUTO) 0 % (0-10); EOSINOPHILS % (AUTO) 0 % (0-10); HEMATOCRIT 33 % (35-52); HEMOGLOBIN 11.1 g/dL (11.5-16.0); LYMPHOCYTES % (AUTO) 19 % (12-44); MEAN CORPUSCULAR HEMOGLOBIN 32 pg (25-34); MEAN CORPUSCULAR HGB CONC 33 g/dL (32-36); MEAN CORPUSCULAR VOLUME 95 fL (80-99); MEAN PLATELET VOLUME 11.7 fL (9.0-12.2); MONOCYTES # (AUTO) 0.4 10^3/uL (0.0-1.0); MONOCYTES % (AUTO) 8 % (0-12); NEUTROPHILS # (AUTO) 3.8 10^3/uL (1.8-7.8); NEUTROPHILS % (AUTO) 71 % (42-75); PLATELET COUNT 165 10^3/uL (130-400); WHITE BLOOD COUNT 5.3 10^3/uL (4.3-11.0)
[2023-05-28 06:02] LABS: ALBUMIN 3.8 GM/DL (3.2-4.5); BILIRUBIN,TOTAL 0.3 MG/DL (0.1-1.0); CALCIUM 8.3 MG/DL (8.5-10.1); CREATININE SERUM 0.78 MG/DL (0.60-1.30); POTASSIUM 4.3 MMOL/L (3.6-5.0); TOTAL PROTEIN 6.1 GM/DL (6.4-8.2)
[2023-05-28] MEDS: FLUTICASONE/VILANTEROL 100/25 MCG (7 DOSES) IH SCH (07:14)
[2023-05-28 08:45] VITALS: BP 139/76
[2023-05-28] MEDS ORDERED: LOSARTAN 100 MG TABLET PO SCH (09:00)
[2023-05-28] MEDS: LOSARTAN 100 MG TABLET PO SCH (09:17)
[2023-05-28] MEDS: guaiFENesin 600 MG TABLET PO SCH ×2 (09:17→20:10)
[2023-05-28] MEDS: LORATADINE 10 MG TABLET PO SCH (09:17)
[2023-05-28] MEDS: dexAMETHasone INJ 10 MG/ML 1 ML VIAL IV SCH (09:17)
[2023-05-28] MEDS: SENNOSIDES 8.6 MG TABLET PO SCH ×2 (09:18→20:13)
[2023-05-28] MEDS: NIRMATRELVIR/RITONAVIR (PAXLOVID) TABLET PO SCH ×2 (09:18→20:13)
[2023-05-28] MEDS: DOCUSATE SODIUM 100 MG CAPSULE PO SCH ×2 (09:18→20:13)
[2023-05-28] MEDS: MICONAZOLE 2% POWDER 90 GM TOP SCH ×2 (09:19→20:13)
[2023-05-28] MEDS: ENOXAPARIN 40 MG/0.4 ML SYRINGE SC SCH (09:19)
[2023-05-28] MEDS: AZITHROMYCIN INJECTION 250 MG in NS (IVPB) 250 ML 250 ML IV SCH (09:21)
[2023-05-28 11:01] VITALS: BP 137/73
[2023-05-28] MEDS: NS IV 1000 ML 1,000 ML IV SCH ×2 (11:15→15:14)
[2023-05-28] MEDS: cefTRIAXone IV/IM 1,000 MG in NS (IVPB) 50 ML 50 ML IV SCH (12:24)
[2023-05-28 15:20] VITALS: BP 198/79
--- NOTE | 2023-05-28 15:54 | Progress Note - Hospitalist ---
Subjective HPI/CC On Admission Date Seen by Provider: May 28, 2023 Time Seen by Provider: 12:45 Subjective/Events-last exam She is feeling better. She is eating lunch. She is not needing supplemental oxygen. Focused Exam Lactate Level 05/26/23 05:23: Lactic Acid Level 0.93 Objective Exam Vital Signs Vital Signs Date Time Temp Pulse Resp B/P (MAP) Pulse Ox O2 Delivery O2 Flow Rate FiO2 05/28/23 15:20 36.9 67 20 198/79 (118) 96 Room Air 05/28/23 07:16 0.00 05/27/23 08:19 96 Capillary Refill : Less Than 3 Seconds General Appearance: No Apparent Distress, Obese Respiratory: Lungs Clear, No Respiratory Distress Cardiovascular: Regular Rate, Rhythm, No Murmur Gastrointestinal: Normal Bowel Sounds, Soft Extremity: Normal Inspection, No Pedal Edema Neurologic/Psychiatric: Alert, Normal Mood/Affect Skin: Normal Color, Warm/Dry Results/Procedures Lab Laboratory Tests 05/28/23 05:08 Patient resulted labs reviewed. Assessment/Plan Assessment and Plan Assess & Plan/Chief Complaint Acute respiratory failure with hypoxia COVID-19 Rocephin and Azithromycin MAT protocol Supplemental oxygen as needed, currently on room air Stop steroids Continue Paxlovid HTN Hypothyroidism Obesity Increase Amlodipine IV Hydralazine as needed Continue other home meds Debility PT/OT DVT prophylaxis: Lovenox Diagnosis/Problems Diagnosis/Problems (1) Hypoxia Status: Acute (2) COVID-19 virus infection Status: Acute (3) HTN (hypertension) Status: Acute (4) Hypothyroidism Status: Chronic (5) Obesity Status: Chronic SHAN TRINIDAD MD May 28, 2023 15:54
[2023-05-28] MEDS ORDERED: amLODIPine 5 MG TABLET PO ONE (16:00)
[2023-05-28 19:27] VITALS: BP 184/72
[2023-05-28] MEDS: MELATONIN 3 MG TABLET PO PRN (20:09)
[2023-05-28] MEDS: MONTELUKAST 10 MG TABLET PO SCH (20:10)
[2023-05-29 00:59] VITALS: BP 159/87
[2023-05-29] MEDS: diphenhydrAMINE 25 MG TABLET PO PRN (01:04)
[2023-05-29] MEDS: ACETAMINOPHEN 325 MG TABLET PO PRN (01:04)
[2023-05-29] MEDS: RT-ALBUTEROL HFA 8.5 GM INHALER IH SCH ×2 (02:22→07:57)
[2023-05-29 03:13] VITALS: BP 172/71
[2023-05-29] MEDS: oxyCODONE IMMEDIATE RELEASE 5 MG TABLET PO PRN ×2 (03:25→08:32)
[2023-05-29] MEDS: LEVOTHYROXINE 125 MCG TABLET PO SCH (05:03)
[2023-05-29 05:31] LABS: BASOPHILS % (AUTO) 0 % (0-10); EOSINOPHILS % (AUTO) 0 % (0-10); HEMATOCRIT 33 % (35-52); LYMPHOCYTES # (AUTO) 0.5 10^3/uL (1.0-4.0); LYMPHOCYTES % (AUTO) 15 % (12-44); MEAN CORPUSCULAR HEMOGLOBIN 32 pg (25-34); MEAN CORPUSCULAR HGB CONC 34 g/dL (32-36); MEAN CORPUSCULAR VOLUME 95 fL (80-99); MEAN PLATELET VOLUME 11.6 fL (9.0-12.2); MONOCYTES # (AUTO) 0.2 10^3/uL (0.0-1.0); MONOCYTES % (AUTO) 6 % (0-12); NEUTROPHILS # (AUTO) 2.6 10^3/uL (1.8-7.8); NEUTROPHILS % (AUTO) 76 % (42-75); PLATELET COUNT 164 10^3/uL (130-400); WHITE BLOOD COUNT 3.4 10^3/uL (4.3-11.0)
[2023-05-29 06:13] LABS: ALBUMIN 3.8 GM/DL (3.2-4.5); BILIRUBIN,TOTAL 0.3 MG/DL (0.1-1.0); CALCIUM 8.1 MG/DL (8.5-10.1); CREATININE SERUM 0.83 MG/DL (0.60-1.30); POTASSIUM 3.9 MMOL/L (3.6-5.0)
[2023-05-29 07:30] VITALS: BP 185/71
[2023-05-29 07:57] VITALS: BP 166/85
[2023-05-29] MEDS: FLUTICASONE/VILANTEROL 100/25 MCG (7 DOSES) IH SCH (07:58)
[2023-05-29] MEDS: ENOXAPARIN 40 MG/0.4 ML SYRINGE SC SCH (08:31)
[2023-05-29] MEDS: LORATADINE 10 MG TABLET PO SCH (08:31)
[2023-05-29] MEDS: LOSARTAN 100 MG TABLET PO SCH (08:31)
[2023-05-29] MEDS: guaiFENesin 600 MG TABLET PO SCH (08:31)
[2023-05-29] MEDS: DOCUSATE SODIUM 100 MG CAPSULE PO SCH (08:32)
[2023-05-29] MEDS: SENNOSIDES 8.6 MG TABLET PO SCH (08:32)
[2023-05-29] MEDS: NIRMATRELVIR/RITONAVIR (PAXLOVID) TABLET PO SCH (08:33)
[2023-05-29] MEDS: MICONAZOLE 2% POWDER 90 GM TOP SCH (08:34)
[2023-05-29] MEDS ORDERED: AZITHROMYCIN 250 MG TABLET PO SCH (09:00)
[2023-05-29] MEDS ORDERED: amLODIPine 10 MG TABLET PO SCH (09:00)
[2023-05-29] MEDS ORDERED: PRED10TA22 PO (10:40)
[2023-05-29] MEDS ORDERED: AMLO-251 PO (10:40)
[2023-05-29] MEDS ORDERED: CEFD300C3 PO (10:40)
[2023-05-29] MEDS ORDERED: MONT-40 PO (10:40)
[2023-05-29] MEDS ORDERED: AZIT250T12 PO (10:40)
[2023-05-29] MEDS ORDERED: LORA10TA7 PO (10:40)
[2023-05-29] MEDS ORDERED: GUAI600T43 PO (10:40)
--- NOTE | 2023-05-29 10:41 | D/C HH Face to Face Order ---
D/C HH Face to Face Orders Reconcile Patient Problems Problems Reviewed?: Yes Instructions for Patient HH Patient Instructions/FollowUp: PCP 1 week Physician to follow Patient: PCP Discharge Diet for Home: No Restrictions Patient Problems: COVID Asthma Patient Data-Allergies,Ht & Wt Patient Allergies: Coded Allergies: sulfamethoxazole (Verified Allergy, Mild, USED OINTMENT-SKIN IRRITATION, 04/12/23) trimethoprim (Verified Allergy, Mild, USED OINTMENT-SKIN IRRITATION, 04/12/23) Height (Feet): 5 Height (Inches): 6.00 Weight (Pounds): 208 Weight (Ounces): 5.0 Home Health Need/Face to Face Date of Face to Face: May 29, 2023 Clinical Findings: Generalized weakness and fatigue, Instability, Muscle weakness I have seen Pt [id number]: Yes Discharged To: Home Diagnosis/Conditions: Debility Patient is Homebound due to: Arnoldo fall risk due to instabilty, Muscle weakness Homebound Status Due to the above stated illness, injury or surgical procedure (medical condition or diagnosis) and associated clinical findings, the patient is homebound because of his/her inability to leave home except with aid of a supportive device and/or person AND leaving the home requires a considerable and taxing effort or is medically contraindicated. Pt req the following assistanc: Walker Home Health Nursing Orders Home Health Services Order: Nursing Services, Press Bucker-Evaluate & Treat, Physical Therapy-Evaluate & Treat Home Health Infusion Therapy Line Start Date: May 26, 2023 Certify Stmt I certify that this patient is under my care and that I, a nurse practitioner or a physician; a special events assistant working with me, had a face to face encounter that - meets the physician face to face encounter requirements with this patient as dated. LINCOLN RAMIRES DO May 29, 2023 10:41
--- NOTE | 2023-05-29 10:41 | Discharge Summary ---
Diagnosis/Chief Complaint Date of Admission May 26, 2023 at 08:09 Date of Discharge Discharge Date: May 29, 2023 Discharge Diagnosis Acute hypoxic respiratory failure due to COVID: isolation protocol, Continue dexamethasone, paxlovid, and nebs, supplemental O2 as needed. Also started on azithromycin and rocephin to cover for superimposed bacterial infection Hx of asthma: Started on montelukast today, continue nebs, supplemental O2 as needed HTN: restart home BP meds Hypothyroidism: Home levothyroxine Constipation: laxatives Lovenox for DVT prophylaxis Reason Hospital Visit CC: COVID with acute bronchitis and asthma exacerbation HPI: This is an 82yoWF clinic patient of Dr Finn who has a h/o asthma although no issues since she removed her cats 20 years ago who presented to the ER with dyspnea and dx of COVID. She had O2 requirements of 2L so due to asthma with wheezing and hypoxia she was admitted. She reports copious amounts of sputum while coughing and due to her coarse breath sounds I will treat for acute bronchitis Discharge Summary Discharge Physical Examination Allergies: Coded Allergies: sulfamethoxazole (Verified Allergy, Mild, USED OINTMENT-SKIN IRRITATION, 04/12/23) trimethoprim (Verified Allergy, Mild, USED OINTMENT-SKIN IRRITATION, 04/12/23) Vitals & I&Os Vital Signs Date Time Temp Pulse Resp B/P (MAP) Pulse Ox O2 Delivery O2 Flow Rate FiO2 05/29/23 14:41 36.7 77 18 166/85 96 Room Air 0.00 05/27/23 08:19 96 General Appearance: Alert, Oriented X3, Cooperative Respiratory: Clear to Auscultation Cardiovascular: Regular Rate Psych/Mental Status: Mental Status NL Hospital Course Was the Problem List Reviewed?: Yes Patient is an 82-year-old female who presented to the ED via EMS on 05/26 with CC of SOB. Starting on 05/24, she had a cough productive of clear sputum, mild SOB, sore throat, headache, and body aches. She was seen at the [facility] walk-in clinic and tested + for COVID. Her symptoms worsened over the next two days, increasing SOB and difficulty sleeping due to SOB, leading to her presentation to the ED. She has a history of asthma, but reports that she has not needed any medication, inhalers, or nebulizers for approximately 20 years, states her symptoms resolved after she got rid of the cats in her house. During her stay she was given IV steroids, paxlovid, nebs, montelukast and started on azithromycin and rocephin. She was placed on supplemental O2 for a brief time after admission, but was quickly able to be on room air without SOB. She did have some high BPs with systolics in the 160s-180s, leading to an increase in dosage of her amlodipine to 10mg. Her SOB resolved during her stay, and she is being discharged today with a prednisone taper, azithromycin, cefdinir, and the new dosing of amlodipine at 10mg with instructions to follow up outpatient with her PCP. [facility] (last 24 hrs) Laboratory Tests 05/26/23 05:23: White Blood Count 5.6, Red Blood Count 3.70L, Hemoglobin 11.8, Hematocrit 36, Mean Corpuscular Volume 97, Mean Corpuscular Hemoglobin 32, Mean Corpuscular Hemoglobin Concent 33, Red Cell Distribution Width 13.1, Platelet Count 153, Mean Platelet Volume 11.4, Immature Granulocyte % (Auto) 1, Neutrophils (%) (Aut o) 75, Lymphocytes (%) (Auto) 15, Monocytes (%) (Auto) 10, Eosinophils (%) (Auto) 0, Basophils (%) (Auto) 0, Neutrophils # (Auto) 4.2, Lymphocytes # (Auto) 0.8L, Monocytes # (Auto) 0.6, Eosinophils # (Auto) 0.0, Basophils # (Auto) 0.0, Immature Granulocyte # (Auto) 0.0, Prothrombin Time 13.6, INR Comment 1.0, Activated Partial Thromboplast Time 35, Sodium Level 135, Potassium Level 3.9, Chloride Level 99, Carbon Dioxide Level 24, Anion Gap 12, Blood Urea Nitrogen 16, Creatinine 0.91, Estimat Glomerular Filtration Rate 63, BUN/Creatinine Ratio 18, Glucose Level 107H, Lactic Acid Level 0.93, Calcium Level 8.9, Corrected Calcium 8.7, Total Bilirubin 0.4, Aspartate Amino Transf (AST/SGOT) 17, Alanine Aminotransferase (ALT/SGPT) 10, Alkaline Phosphatase 63, Total Protein 6.7, Albumin 4.2 05/27/23 05:00: White Blood Count 3.7L, Red Blood Count 3.38L, Hemoglobin 10.6L, Hematocrit 32L, Mean Corpuscular Volume 94, Mean Corpuscular Hemoglobin 31, Mean Corpuscular Hemoglobin Concent 33, Red Cell Distribution Width 13.2, Platelet Count 142, Mean Platelet Volume 11.9, Immature Granulocyte % (Auto) 0, Neutrophils (%) (Auto) 77H, Lymphocytes (%) (Auto) 12, Monocytes (%) (Auto) 11, Eosinophils (%) (Auto) 0, Basophils (%) (Auto) 0, Neutrophils # (Auto) 2.9, Lymphocytes # (Auto) 0.5L, Monocytes # (Auto) 0.4, Eosinophils # (Auto) 0.0, Basophils # (Auto) 0.0, Immature Granulocyte # (Auto) 0.0, Sodium Level 141, Potassium Level 3.7, Chloride Level 108H, Carbon Dioxide Level 23, Anion Gap 10, Blood Urea Nitrogen 14, Creatinine 0.76, Estimat Glomerular Filtration Rate 78, BUN/Creatinine Ratio 18, Glucose Level 134H, Calcium Level 8.4L, Corrected Calcium 8.7, Total Bilirubin 0.2, Aspartate Amino Transf (AST/SGOT) 14, Alanine Aminotransferase (ALT/SGPT) 10, Alkaline Phosphatase 50, Total Protein 5.7L, Albumin 3.6 05/28/23 05:08: White Blood Count 5.3, Red Blood Count 3.51L, Hemoglobin 11.1L, Hematocrit 33L, Mean Corpuscular Volume 95, Mean Corpuscular Hemoglobin 32, Mean Corpuscular Hemoglobin Concent 33, Red Cell Distribution Width 13.3, Platelet Count 165, Mean Platelet Volume 11.7, Immature Granulocyte % (Auto) 2, Neutrophils (%) (Auto) 71, Lymphocytes (%) (Auto) 19, Monocytes (%) (Auto) 8, Eosinophils (%) (Auto) 0, Basophils (%) (Auto) 0, Neutrophils # (Auto) 3.8, Lymphocytes # (Auto) 1.0, Monocytes # (Auto) 0.4, Eosinophils # (Auto) 0.0, Basophils # (Auto) 0.0, Immature Granulocyte # (Auto) 0.1, Sodium Level 141, Potassium Level 4.3, Chloride Level 110H, Carbon Dioxide Level 23, Anion Gap 8, Blood Urea Nitrogen 14, Creatinine 0.78, Estimat Glomerular Filtration Rate 76, BUN/Creatinine Ratio 18, Glucose Level 93, Calcium Level 8.3L, Corrected Calcium 8.5, Total Bilirubin 0.3, Aspartate Amino Transf (AST/SGOT) 18, Alanine Aminotransferase (ALT/SGPT) 9, Alkaline Phosphatase 47, Total Protein 6.1L, Albumin 3.8 05/29/23 05:05: White Blood Count 3.4L, Red Blood Count 3.44L, Hemoglobin 11.0L, Hematocrit 33L, Mean Corpuscular Volume 95, Mean Corpuscular Hemoglobin 32, Mean Corpuscular Hemoglobin Concent 34, Red Cell Distribution Width 13.3, Platelet Count 164, Mean Platelet Volume 11.6, Immature Granulocyte % (Auto) 3, Neutrophils (%) (Auto) 76H, Lymphocytes (%) (Auto) 15, Monocytes (%) (Auto) 6, Eosinophils (%) (Auto) 0, Basophils (%) (Auto) 0, Neutrophils # (Auto) 2.6, Lymphocytes # (Auto) 0.5L, Monocytes # (Auto) 0.2, Eosinophils # (Auto) 0.0, Basophils # (Auto) 0.0, Immature Granulocyte # (Auto) 0.1, Sodium Level 135, Potassium Level 3.9, Chloride Level 107, Carbon Dioxide Level 21, Anion Gap 7, Blood Urea Nitrogen 17, Creatinine 0.83, Estimat Glomerular Filtration Rate 70, BUN/Creatinine Ratio 20, Glucose Level 137H, Calcium Level 8.1L, Corrected Calcium 8.3L, Total Bilirubin 0.3, Aspartate Amino Transf (AST/SGOT) 20, Alanine Aminotransferase (ALT/SGPT) 13, Alkaline Phosphatase 49, Total Protein 6.0L, Albumin 3.8 Microbiology 05/26/23 Blood Culture - Preliminary, Resulted Pending Labs Microbiology Date/Time Source Procedure Growth Status 05/26/23 05:52 Peripheral Rt Hand Blood Culture - Preliminary Resulted 05/26/23 05:23 Peripheral Rt Ac Blood Culture - Preliminary Resulted Laboratory Tests 05/26/23 05:23: White Blood Count 5.6, Red Blood Count 3.70, Hemoglobin 11.8, Hematocrit 36, Mean Corpuscular Volume 97, Mean Corpuscular Hemoglobin 32, Mean Corpuscular Hemoglobin Concent 33, Red Cell Distribution Width 13.1, Platelet Count 153, Mean Platelet Volume 11.4, Immature Granulocyte % (Auto) 1, Neutrophils (%) (Auto) 75, Lymphocytes (%) (Auto) 15, Monocytes (%) (Auto) 10, Eosinophils (%) (Auto) 0, Basophils (%) (Auto) 0, Neutrophils # (Auto) 4.2, Lymphocytes # (Auto) 0.8, Monocytes # (Auto) 0.6, Eosinophils # (Auto) 0.0, Basophils # (Auto) 0.0, Immature Granulocyte # (Auto) 0.0, Prothrombin Time 13.6, INR Comment 1.0, Acti vated Partial Thromboplast Time 35, Sodium Level 135, Potassium Level 3.9, Chloride Level 99, Carbon Dioxide Level 24, Anion Gap 12, Blood Urea Nitrogen 16, Creatinine 0.91, Estimat Glomerular Filtration Rate 63, BUN/Creatinine Ratio 18, Glucose Level 107, Lactic Acid Level 0.93, Calcium Level 8.9, Corrected Calcium 8.7, Total Bilirubin 0.4, Aspartate Amino Transf (AST/SGOT) 17, Alanine Aminotransferase (ALT/SGPT) 10, Alkaline Phosphatase 63, Total Protein 6.7, Albumin 4.2 05/27/23 05:00: White Blood Count 3.7, Red Blood Count 3.38, Hemoglobin 10.6, Hematocrit 32, Mean Corpuscular Volume 94, Mean Corpuscular Hemoglobin 31, Mean Corpuscular Hemoglobin Concent 33, Red Cell Distribution Width 13.2, Platelet Count 142, Mean Platelet Volume 11.9, Immature Granulocyte % (Auto) 0, Neutrophils (%) (Auto) 77, Lymphocytes (%) (Auto) 12, Monocytes (%) (Auto) 11, Eosinophils (%) (Auto) 0, Basophils (%) (Auto) 0, Neutrophils # (Auto) 2.9, Lymphocytes # (Auto) 0.5, Monocytes # (Auto) 0.4, Eosinophils # (Auto) 0.0, Basophils # (Auto) 0.0, Immature Granulocyte # (Auto) 0.0, Sodium Level 141, Potassium Level 3.7, Chloride Level 108, Carbon Dioxide Level 23, Anion Gap 10, Blood Urea Nitrogen 14, Creatinine 0.76, Estimat Glomerular Filtration Rate 78, BUN/Creatinine Ratio 18, Glucose Level 134, Calcium Level 8.4, Corrected Calcium 8.7, Total Bilirubin 0.2, Aspartate Amino Transf (AST/SGOT) 14, Alanine Aminotransferase (ALT/SGPT) 10, Alkaline Phosphatase 50, Total Protein 5.7, Albumin 3.6 05/28/23 05:08: White Blood Count 5.3, Red Blood Count 3.51, Hemoglobin 11.1, Hematocrit 33, Mean Corpuscular Volume 95, Mean Corpuscular Hemoglobin 32, Mean Corpuscular Hemoglobin Concent 33, Red Cell Distribution Width 13.3, Platelet Count 165, Mean Platelet Volume 11.7, Immature Granulocyte % (Auto) 2, Neutrophils (%) (Auto) 71, Lymphocytes (%) (Auto) 19, Monocytes (%) (Auto) 8, Eosinophils (%) (Auto) 0, Basophils (%) (Auto) 0, Neutrophils # (Auto) 3.8, Lymphocytes # (Auto) 1.0, Monocytes # (Auto) 0.4, Eosinophils # (Auto) 0.0, Basophils # (Auto) 0.0, Immature Granulocyte # (Auto) 0.1, Sodium Level 141, Potassium Level 4.3, Chlor john Level 110, Carbon Dioxide Level 23, Anion Gap 8, Blood Urea Nitrogen 14, Creatinine 0.78, Estimat Glomerular Filtration Rate 76, BUN/Creatinine Ratio 18, Glucose Level 93, Calcium Level 8.3, Corrected Calcium 8.5, Total Bilirubin 0.3, Aspartate Amino Transf (AST/SGOT) 18, Alanine Aminotransferase (ALT/SGPT) 9, Alkaline Phosphatase 47, Total Protein 6.1, Albumin 3.8 05/29/23 05:05: White Blood Count 3.4, Red Blood Count 3.44, Hemoglobin 11.0, Hematocrit 33, Mean Corpuscular Volume 95, Mean Corpuscular Hemoglobin 32, Mean Corpuscular Hemoglobin Concent 34, Red Cell Distribution Width 13.3, Platelet Count 164, Mean Platelet Volume 11.6, Immature Granulocyte % (Auto) 3, Neutrophils (%) (Auto) 76, Lymphocytes (%) (Auto) 15, Monocytes (%) (Auto) 6, Eosinophils (%) (Auto) 0, Basophils (%) (Auto) 0, Neutrophils # (Auto) 2.6, Lymphocytes # (Auto) 0.5, Monocytes # (Auto) 0.2, Eosinophils # (Auto) 0.0, Basophils # (Auto) 0.0, Immature Granulocyte # (Auto) 0.1, Sodium Level 135, Potassium Level 3.9, Chloride Level 107, Carbon Dioxide Level 21, Anion Gap 7, Blood Urea Nitrogen 17, Creatinine 0.83, Estimat Glomerular Filtration Rate 70, BUN/Creatinine Ratio 20, Glucose Level 137, Calcium Level 8.1, Corrected Calcium 8.3, Total Bilirubin 0.3, Aspartate Amino Transf (AST/SGOT) 20, Alanine Aminotransferase (ALT/SGPT) 13, Alkaline Phosphatase 49, Total Protein 6.0, Albumin 3.8 Discharge Home Medications: Active Scripts Active Prednisone 10 Mg Tab.ds.pk 10 Mg PO DAILY Take 6 tabs(60mg)daily,decrease by 1 tab(10MG)daily. Cefdinir 300 Mg Capsule 300 Mg PO BID Mucinex (Guaifenesin) 600 Mg Tab.er.12h 600 Mg PO BID Montelukast Sodium 10 Mg Tablet 10 Mg PO HS Amlodipine Besylate 10 Mg Tablet 10 Mg PO DAILY Azithromycin 250 Mg Tablet 250 Mg PO DAILY Loratadine 10 Mg Tablet 10 Mg PO DAILY Reported Tylenol Pm Ex-Strength Caplet (Acetaminophen/Diphenhydramine) 500 Mg-25 Mg Tablet 1 Each PO HS Culturelle (Lactobacillus Rhamnosus GG) 10 Billion Cell Capsule 1 Each PO DAILY Melatonin Unknown Strength Tab.rapdis Unknown Dose PO Alendronate Sodium 70 Mg Tablet 70 Mg PO MONDAY Miralax (Polyethylene Glycol 3350) 119 Gm Powder 119 Gm PO PRN Vitamin D3 Complete Caplet (Mv-Mn/Iron/FA/Herbal Cmplx#190) 1 Each Tablet 1 Each PO DAILY Metoprolol Succinate 50 Mg Tab.er.24h 50 Mg PO DAILY Losartan Potassium 100 Mg Tablet 100 Mg PO DAILY Levothyroxine Sodium 125 Mcg Tablet 125 Mcg PO DAILY Tylenol Extra Strength (Acetaminophen) 500 Mg Tablet 500-1,000 Mg PO Q8H PRN Instructions to patient/family Please see electronic discharge instructions given to patient. Diagnosis/Problems Diagnosis/Problems (1) COVID-19 virus infection Status: Acute (2) Asthma (3) Hypoxia Status: Acute LINCOLN RAMIRES DO May 29, 2023 10:41
--- NOTE | 2023-05-29 10:57 | Progress Note ---
GERMÁN EL 05/29/23 1057: Progress Note Patient is an 82-year-old female who presented to the ED via EMS on 05/26 with CC of SOB. Starting on 05/24, she had a cough productive of clear sputum, mild SOB, sore throat, headache, and body aches. She was seen at the [facility] walk-in clinic and tested + for COVID. Her symptoms worsened over the next two days, increasing SOB and difficulty sleeping due to SOB, leading to her presentation to the ED. She has a history of asthma, but reports that she has not needed any medication, inhalers, or nebulizers for approximately 20 years, states her symptoms resolved after she got rid of the cats in her house. During her stay she was given IV steroids, paxlovid, nebs, montelukast and started on azithromycin and rocephin. She was placed on supplemental O2 for a brief time after admission, but was quickly able to be on room air without SOB. She did have some high BPs with systolics in the 160s-180s, leading to an increase in dosage of her amlodipine to 10mg. Her SOB resolved during her stay, and she is being discharged today with a prednisone taper, azithromycin, cefdinir, and the new dosing of amlodipine at 10mg with instructions to follow up outpatient with her PCP. DINA NIX DO 05/29/231942: Supervisory-Addendum Brief Verification & Attestation Participated in pt care: history, MDM, physical Personally performed: exam, history, MDM, supervision of care Care discussed with: Medical Student Procedures: n/a Results interpretation: Verified all documentation Verification and Attestation of Medical Student E/M Service A medical student performed and documented this service in my presence. I reviewed and verified all information documented by the medical student and made modifications to such information, when appropriate. I personally performed the physical exam and medical decision making. Dina Nix, May 29, 2023,19:43 GERMÁN EL May 29, 2023 10:57 DINA NIX DO May 29, 2023 19:43
--- NOTE | 2023-05-29 11:20 | Occupational Therapy Eval ---
OT Evaluation-General/PLF Medical Diagnosis Admission Date May 26, 2023 at 08:09 Medical Diagnosis: PAT SOB Onset Date: May 24, 2023 Therapy Diagnosis Therapy Diagnosis: weakness Height/Weight Height (Feet): 5 Height (Inches): 6.00 Weight (Pounds): 208 Weight (Ounces): 5.0 Precautions Precautions/Isolations: Contact Isolation, Droplet Isolation, Fall Prevention Weight Bear Status Weight Bearing Restriction: Full Weight Bearing Referral Physician: Dr. Nix Referral Reason: Activity Tolerance, Self Care, Evaluation/Treatment Medical History Pertinent Medical History: HTN Reviewed History: Yes Social History Home: Apartment Current Living Status: Alone Entry Into Home: Stairs Without Railing Steps Into Home: 1 ADL-Prior Level of Function SCALE: Activities may be completed with or without assistive devices. 9-Fbfjqypesr-vjnoqvs completes the activity by him/herself with no assistance from a helper. 5-Set-up or Clean-up Assistance-helper sets up or cleans up; patient completes activity. [place] assists only prior to or following the activity. 4-Supervision or Touching Assistance-helper provides verbal cues and/or touching/steadying and/or contact guard assistance as patient completes activity. Assistance may be provided throughout the activity or intermittently. 3-Partial/Moderate Assistance-helper does LESS THAN HALF the effort. [place] lifts, holds or supports trunk or limbs, but provides less than half the effort. 2-Substantial/Maximal Assistance-helper does MORE THAN HALF the effort. [place] lifts or holds trunk or limbs and provides more than half the effort. 0-Lcyxwgbdy-gahhqh does ALL the effort. Patient does none of the effort to complete the activity. Or, the assistance of 2 or more helpers is required for the patient to complete the activity. If activity was not attempted, code reason: 7-Patient Refused. 9-Not Applicable-not attempted and the patient did not perform the activity before the current illness, exacerbation or injury. 10-Not Attempted due to Environmental Limitations-(lack of equipment, weather restraints, etc.). 88-Not Attempted due to Medical Conditions or Safety Concerns. Self Care: Needed Some Help Functional Cognition: Needed Some Help DME/Equipment: Bath Chair, Shower Drive Self: No OT Current Status Subjective I'm ready to go home, i need at shower first Mental Status/Objective Patient Orientation: Person, Place, Time, Situation Attachments: IV Current Glasses/Contacts: Yes Hearing Aids: No Hand Dominance: Right Upper Extremity ROM BUE ROM WFLS, occasional assistance w/ moist skin drying and dressing d/t excessive soft tissue limits IR behind back Upper Extremity Coordination Fair + Upper Extremity Sensation intact Upper Extremity Strength +3/5 grossly ADL-Treatment ADL-Current Patient demonstrates increased levels of anxiety w/ complex skills. 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 Eating (QC): 6 (Patient request ice/water and juice) Oral Hygiene (QC): 5 Shower/Bathe Self (QC): 3 (OT performed back, hair and BLES below knees and buttocks) Upper Body Dressing (QC): 4 Lower Body Dressing (QC): 3 On/Off Footwear (QC): 1 (d/t time constraint of shower, dressing and 02 study) Toileting Hygiene (QC): 4 IV discontinued during shower. Education OT Patient Education: Correct positioning, Energy conservation, Exercise program, Instructions to caregiver, Modified ADL techniques, Progress toward Goal/Update tx plan, Purpose of tx/functional activities, Reviewed precautions, Rehab process, Safety issues, Transfer techniques, Use of adapted equipment Teaching Recipient: Patient, Health Care Proxy Teaching Methods: Demonstration, Discussion Response to Teaching: Verbalize Understanding OT Home Extension Agent Goals Home Extension Agent Goals 1=Demonstrate adherence to instructed precautions during ADL tasks. 2=Patient will verbalize/demonstrate understanding of assistive devices/modifications for ADL. 3=Patient will improve strength/tolerance for activity to enable patient to perform ADL's. OT Education/Plan Problem List/Assessment Assessment: No Skilled OT Needs ID'd Discharge Recommendations Plan/Recommendations: Discontinue OT Therapy Discharge Recommendati: Homemaker Support Treatment Plan/Plan of Care Treatment,Training & Education: Yes Patient would benefit from OT for education, treatment and training to promote independence in ADL's, mobility, safety and/or upper extremity function for ADL's. Plan of Care: OTHER (EVAL ONLY, patient to be discharged) Treatment Duration: May 29, 2023 Frequency: 1 time per week Estimated Hrs Per Day: .25 hour per day Agreement: Yes Rehab Potential: Good Time Start Time: 10:20 Stop Time: 10:58 DATE: May 29, 2023 Total Time Billed (hr/min): 38 Billed Treatment Time EVM< ADL 38 min AYO JACKSON OT May 29, 2023 11:20
[2023-05-29] MEDS: cefTRIAXone IV/IM 1,000 MG in NS (IVPB) 50 ML 50 ML IV SCH (12:48)
[2023-05-29 14:41] VITALS: BP 166/85
== END 2023-05-29 14:35 | disposition home or self-care (01) ==
LOC: EDUNIT# 05:07 → ER 05:09 → 4TH 08:09
PROVIDERS: ADMIT Internal Medicine; ATTEND Internal Medicine
DX: J96.01 Acute respiratory failure with hypoxia (principal); U07.1 COVID-19; J45.901 Unspecified asthma with (acute) exacerbation; I10 Essential (primary) hypertension; E03.9 Hypothyroidism, unspecified; E66.9 Obesity, unspecified; R53.81 Other malaise; K59.00 Constipation, unspecified; Z79.899 Other long term (current) drug therapy; Z79.890 Hormone replacement therapy; Z68.31 Body mass index [BMI] 31.0-31.9, adult
CPT/HCPCS: 36415; 71045; 80053; 83605; 85025; 85610; 85730; 87040; 93005; 93041; 94640; 94760; 94761; 96361; 96366; 96372; 96375; 96376; G0378

== ENCOUNTER 2023-05-31 22:54 | Emergency (ER) | payer MEDICARE, MEDICAID ==
[~2023-05-31] VITALS: Ht 168 cm; Wt 90.0 kg
[~2023-05-31 22:54] MED LIST changes: +AMLO-251 PO; +AZIT250T12 PO; +CEFD300C3 PO; +GUAI600T43 PO; +LORA10TA7 PO; +MONT-40 PO; +PRED10TA22 PO
[2023-05-31] MEDS ORDERED: FUROSEMIDE INJECTION 40 MG/4 ML VIAL IVP ONE (23:15)
--- NOTE | 2023-05-31 23:17 | ED Lower Extremity ---
General Stated Complaint: LEGS SWOLLEN, DISCOLORATION, THROBBING PAIN, Source: patient, old records Exam Limitations: no limitations History of Present Illness Date Seen by Provider: May 31, 2023 Time Seen by Provider: 22:58 Initial Comments 82-year-old female with past medical history of hypertension most notably coming in due to lower extremity swelling and discomfort. She was recently discharged from the hospital. She was started on multiple medications including amlodipine. She noticed swelling in her bilateral lower extremities that is equal for the past couple of days. It is not red, no chest pain or shortness of breath, no prior history of DVT or PE, and otherwise denying any other acute complaints. Taking Tylenol for the discomfort. She is not on a water pill. Allergies and Home Medications Allergies Coded Allergies: sulfamethoxazole (Verified Allergy, Mild, USED OINTMENT-SKIN IRRITATION, 04/12/23) trimethoprim (Verified Allergy, Mild, USED OINTMENT-SKIN IRRITATION, 04/12/23) Patient Home Medication List Home Medication List Reviewed: Yes Acetaminophen (Tylenol Extra Strength) 500 Mg Tablet, 500-1,000 MG PO Q8H PRN for PAIN-MILD (1-4), (Reported) Entered as Reported by: MERISSA VICENTE on 02/18/20 1013 Acetaminophen/Diphenhydramine (Tylenol Pm Ex-Strength Caplet) 500 Mg-25 Mg Tablet, 1 EACH PO HS, (Reported) Entered as Reported by: PRIMO VASQUEZ on 04/05/23 1524 Alendronate Sodium (Alendronate Sodium) 70 Mg Tablet, 70 MG PO MONDAY, (Reported) Entered as Reported by: PRIMO VASQUEZ on 04/05/23 1524 Amlodipine Besylate (Amlodipine Besylate) 10 Mg Tablet, 10 MG PO DAILY Prescribed by: LINCOLN RAMIRES on 05/29/23 1040 Azithromycin (Azithromycin) 250 Mg Tablet, 250 MG PO DAILY Prescribed by: LINCOLN RAMIRES on 05/29/23 1040 Cefdinir (Cefdinir) 300 Mg Capsule, 300 MG PO BID Prescribed by: LINCOLN RAMIRES on 05/29/23 1040 Guaifenesin (Mucinex) 600 Mg Tab.er.12h, 600 MG PO BID Prescribed by: LINCOLN RAMIRES on 05/29/23 1040 Lactobacillus Rhamnosus GG (Culturelle) 10 Billion Cell Capsule, 1 EACH PO DAILY, (Reported) Entered as Reported by: PRIMO VASQUEZ on 04/05/23 1524 Levothyroxine Sodium (Levothyroxine Sodium) 125 Mcg Tablet, 125 MCG PO DAILY, (Reported) Entered as Reported by: STEVE MCKAY on 11/04/20 0959 Loratadine (Loratadine) 10 Mg Tablet, 10 MG PO DAILY Prescribed by: LINCOLN RAMIRES on 05/29/23 1040 Losartan Potassium (Losartan Potassium) 100 Mg Tablet, 100 MG PO DAILY, (Reported) Entered as Reported by: STEVE MCKAY on 11/04/20 0959 Melatonin (Melatonin) Unknown Strength Tab.rapdis, Unknown Dose PO, (Reported) Entered as Reported by: PRIMO VASQUEZ on 04/05/23 1524 Metoprolol Succinate (Metoprolol Succinate) 50 Mg Tab.er.24h, 50 MG PO DAILY, (Reported) Entered as Reported by: STEVE MCKAY on 11/15/21 1431 Montelukast Sodium (Montelukast Sodium) 10 Mg Tablet, 10 MG PO HS Prescribed by: LINCOLN RAMIRES on 05/29/23 1040 Mv-Mn/Iron/FA/Herbal Cmplx#190 (Vitamin D3 Complete Caplet) 1 Each Tablet, 1 EACH PO DAILY, (Reported) Entered as Reported by: STEVE MCKAY on 11/15/21 1431 Polyethylene Glycol 3350 (Miralax) 119 Gm Powder, 119 GM PO PRN, (Reported) Entered as Reported by: STEVE MCKAY on 11/15/21 1431 Prednisone (Prednisone) 10 Mg Tab.ds.pk, 10 MG PO DAILY Prescribed by: LINCOLN RAMIRES on 05/29/23 1040 Discontinued Medications Amlodipine Besylate (Amlodipine Besylate) 2.5 Mg Tablet, 2.5 MG PO DAILY, (Reported) Entered as Reported by: PRIMO VASQUEZ on 04/05/23 1524 Hydrocodone/Acetaminophen (Hydrocodone-Acetamin 5-325 mg) 5 Mg-325 Mg Tablet, 1 TAB PO Q8H PRN for PAIN-MODERATE (5-7) Prescribed by: WILSON AMOR on 04/12/23 1045 Review of Systems Constitutional: No fever EENTM: no symptoms reported Respiratory: no symptoms reported Cardiovascular: no symptoms reported Gastrointestinal: no symptoms reported Genitourinary: no symptoms reported Musculoskeletal: see HPI Skin: no symptoms reported Psychiatric/Neurological: No Symptoms Reported Past Godtcah-Uhtaqa-Wzqjhy Hx Patient Social History Tobacco Use?: No Immunizations Up To Date First/Initial COVID19 Vaccinat: DECEMBER 2020 Second COVID19 Vaccination Jose: 06/2021 Third COVID19 Vaccination Date: NO Seasonal Allergies Seasonal Allergies: No Past Medical History Surgery/Hospitalization HX: [facility] - FIRST WEEK IN APRIL 2023 Surgeries: Yes (PARTIAL THYROIDECTOMY, CYST REMOVED FROM TAILBONE; LUMBAR SPINE SURGERY) Orthopedic, Thyroidectomy Respiratory: Yes Asthma Currently Using BIPAP: No Cardiac: Yes Hypertension Neurological: Yes (RESTING TREMOR) 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 Disorders: No Female 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 Disorders: Denies [employer] History: Menopausal Sexually Transmitted Disease: No HIV/AIDS: No Genitourinary: Yes (CHRONIC URINARY INCONTINENCE) Gastrointestinal: Yes (PERIANAL FISTULA/ CONSTIPATION) Chronic Constipation, Chronic Diarrhea, Gall Bladder Disease Musculoskeletal: Yes (LUMBAR SPINE SURGERY) Degenerate Disk Disease, Arthritis, Chronic Back Pain Endocrine: Yes (BENIGN TUMOR OF THYROID REMOVED) Hypothyroidsim HEENT: Yes (CATARACT SURGERY) Cataract Loss of Vision: Denies Hearing Impairment: Denies Cancer: Yes Skin Did You Recieve Any Treatments: Yes What Type of Treatment Did You: Surgical Intervention Psychosocial: Yes Anxiety Integumentary: Yes (GROIN RASH FROM IRRITATION WEARS BRIEFS) Blood Disorders: No Adverse Reaction/Blood Tranf: No (N/A) Family Medical History Alcoholism 19 FATHER 19 MOTHER Asthma 19 FATHER Cancer of mouth 19 FATHER (CANCER OF THE LAYARANX) Cardiovascular disease 19 MOTHER (AORTIC VALVE REPLACED) Cataracts 19 MOTHER (MACULAR DEGENERATION) Colon cancer 19 FATHER 19 MOTHER Dementia 19 MOTHER Heart Disease, Cancer, Other Conditions/Hx Physical Exam Vital Signs Vital Signs - First Documented 05/31/23 23:15 Temp 36.0 Pulse 63 Resp 14 B/P (MAP) 168/83 (111) Pulse Ox 96 Capillary Refill : Height, Weight, BMI Height: 5'6.00" Weight: 208lbs. 5.0oz. 94.125652sf; 31.29 BMI Method:Stated General Appearance: WD/WN, no apparent distress HEENT: PERRL/EOMI, normal ENT inspection, pharynx normal Neck: non-tender, full range of motion, supple, normal inspection Cardiovascular: regular rate, rhythm Respiratory: chest non-tender, lungs clear, normal breath sounds, no respiratory distress, no accessory muscle use Gastrointestinal: normal bowel sounds, non tender, soft; No distended, No guarding Back: normal inspection, no CVA tenderness Legs: bilateral leg other (Bilateral lower extremity 2+ edema up to the knees, there is no redness, no pain with calf squeeze, normal distal pulses and sensation) Neurologic/Tendon: normal sensation, normal motor functions, normal tendon functions Neurologic/Psychiatric: no motor/sensory deficits, alert, normal mood/affect Skin: normal color, warm/dry; No rash Progress/Results/Core Measures Results/Orders Lab Results Laboratory Tests Test 05/31/23 23:16 05/31/23 23:30 Range/Units White Blood Count 7.6 4.3-11.0 10^3/uL Red Blood Count 4.08 3.80-5.11 10^6/uL Hemoglobin 13.0 11.5-16.0 g/dL Hematocrit 38 35-52 % Mean Corpuscular Volume 94 80-99 fL Mean Corpuscular Hemoglobin 32 25-34 pg Mean Corpuscular Hemoglobin Concent 34 32-36 g/dL Red Cell Distribution Width 13.2 10.0-14.5 % Platelet Count 257 130-400 10^3/uL Mean Platelet Volume 11.1 9.0-12.2 fL Immature Granulocyte % (Auto) 5 % Neutrophils (%) (Auto) 65 42-75 % Lymphocytes (%) (Auto) 16 12-44 % Monocytes (%) (Auto) 15 H 0-12 % Eosinophils (%) (Auto) 0 0-10 % Basophils (%) (Auto) 0 0-10 % Neutrophils # (Auto) 5.0 1.8-7.8 10^3/uL Lymphocytes # (Auto) 1.2 1.0-4.0 10^3/uL Monocytes # (Auto) 1.1 H 0.0-1.0 10^3/uL Eosinophils # (Auto) 0.0 0.0-0.3 10^3/uL Basophils # (Auto) 0.0 0.0-0.1 10^3/uL Immature Granulocyte # (Auto) 0.3 H 0.0-0.1 10^3/uL Sodium Level 136 135-145 MMOL/L Potassium Level 4.1 3.6-5.0 MMOL/L Chloride Level 104 98-107 MMOL/L Carbon Dioxide Level 21 21-32 MMOL/L Anion Gap 11 5-14 MMOL/L Blood Urea Nitrogen 25 H 7-18 MG/DL Creatinine 0.86 0.60-1.30 MG/DL Estimat Glomerular Filtration Rate 67 BUN/Creatinine Ratio 29 Glucose Level 104 70-105 MG/DL Calcium Level 8.5 8.5-10.1 MG/DL Corrected Calcium 8.3 L 8.5-10.1 MG/DL Total Bilirubin 0.3 0.1-1.0 MG/DL Aspartate Amino Transf (AST/SGOT) 44 H 5-34 U/L Alanine Aminotransferase (ALT/SGPT) 44 0-55 U/L Alkaline Phosphatase 56 40-136 U/L B-Type Natriuretic Peptide 32.7 <100.0 PG/ML Total Protein 6.8 6.4-8.2 GM/DL Albumin 4.3 3.2-4.5 GM/DL Urine Color YELLOW Urine Clarity CLEAR Urine pH 5.5 5-9 Urine Specific [place] 1.010 L 1.016-1.022 Urine Protein NEGATIVE NEGATIVE Urine Glucose (UA) NEGATIVE NEGATIVE Urine Ketones TRACE H NEGATIVE Urine Nitrite NEGATIVE NEGATIVE Urine Bilirubin NEGATIVE NEGATIVE Urine Urobilinogen 0.2 < = 1.0 MG/DL Urine Leukocyte Esterase NEGATIVE NEGATIVE Urine RBC (Auto) NEGATIVE NEGATIVE Urine RBC NONE /HPF Urine WBC NONE /HPF Urine Squamous Epithelial Cells 5-10 /HPF Urine Crystals NONE /LPF Urine Bacteria NEGATIVE /HPF Urine Casts NONE /LPF Urine Mucus NEGATIVE /LPF Urine Culture Indicated NO My Orders Orders - DANYEL MCMULLEN MD Bnp Sri (05/31/23 23:14) Cbc With Automated Diff (05/31/23 23:14) Comprehensive Metabolic Panel (05/31/23 23:14) Ua Culture If Indicated (05/31/23 23:14) Ed Iv/Invasive Line Start (05/31/23 23:14) Furosemide Injection (Furosemide Injec (05/31/23 23:15) Medications Given in ED Current Medications Medications Dose Ordered Sig/Kulwant Route Start Time Stop Time Status Last Admin Dose Admin Furosemide 20 mg ONCE ONCE IVP 05/31/23 23:15 05/31/23 23:16 DC 05/31/23 23:28 20 MG Vital Signs/I&O 05/31/23 23:15 Temp 36.0 Pulse 63 Resp 14 B/P (MAP) 168/83 (111) Pulse Ox 96 Progress Progress Note : Progress Note 82-year-old female coming in due to bilateral lower extremity edema that is equal on both sides, nontender, not red. ABCs were intact and vitals were stable on presentation. Denies any chest pain or shortness of breath, no clinical signs of a DVT or PE. An IV was placed and basic labs were obtained and were significant for a normal creatinine, normal LFTs, normal BNP, and urinalysis without any protein in it. Swelling is very unlikely to be related to kidney function, cardiac output, or liver dysfunction. The patient recently started amlodipine and recently increased the dose as well. I suspect this could be related to this. I will have her call her PCP tomorrow to see if they could change this over to something else. She was given a dose of Lasix here, we will start her on a prescription of this for the next week as well. I believe she is otherwise stable for discharge with outpatient follow-up. She was sent home with strict return precautions Departure Impression Primary Impression: Bilateral lower extremity edema Disposition: HOME, SELF-CARE Condition: Stable Departure-Patient Inst. Decision time for Depature: 00:10 Referrals: KEVEN PERRY MD (PCP/Family) Primary Care Physician Patient Instructions: Swelling Add. Discharge Instructions: The swelling in your legs is most likely due to a medication adverse reaction from the amlodipine. We recommend calling your regular doctor and changing from this to a different medicine. We will put you on a water pill for the next week or so to help with the fluid in your legs. Also, try to elevate your legs to help with this at nighttime. If you develop any severe chest pain or severe shortness of breath, we would want you to call your doctor right away or come back to the ER Scripts Potassium Chloride (Potassium Chloride) 10 Meq Capsule.er 10 MEQ PO DAILY for 7 Days, #7 CAP Prov: DANYEL MCMULLEN MD 06/01/23 Furosemide (Lasix) 20 Mg Tablet 20 MG PO DAILY for 7 Days, #7 TAB Prov: DANYEL MCMULLEN MD 06/01/23 DANYEL MCMULLEN MD May 31, 2023 23:17
[2023-05-31 23:22] LABS: BASOPHILS % (AUTO) 0 % (0-10); EOSINOPHILS % (AUTO) 0 % (0-10); HEMATOCRIT 38 % (35-52); LYMPHOCYTES # (AUTO) 1.2 10^3/uL (1.0-4.0); LYMPHOCYTES % (AUTO) 16 % (12-44); MEAN CORPUSCULAR HEMOGLOBIN 32 pg (25-34); MEAN CORPUSCULAR HGB CONC 34 g/dL (32-36); MEAN CORPUSCULAR VOLUME 94 fL (80-99); MEAN PLATELET VOLUME 11.1 fL (9.0-12.2); MONOCYTES # (AUTO) 1.1 10^3/uL (0.0-1.0); MONOCYTES % (AUTO) 15 % (0-12); NEUTROPHILS % (AUTO) 65 % (42-75); PLATELET COUNT 257 10^3/uL (130-400); WHITE BLOOD COUNT 7.6 10^3/uL (4.3-11.0)
[2023-05-31 23:44] LABS: ALBUMIN 4.3 GM/DL (3.2-4.5); BILIRUBIN,TOTAL 0.3 MG/DL (0.1-1.0); CALCIUM 8.5 MG/DL (8.5-10.1); CREATININE SERUM 0.86 MG/DL (0.60-1.30); POTASSIUM 4.1 MMOL/L (3.6-5.0); TOTAL PROTEIN 6.8 GM/DL (6.4-8.2)
[2023-05-31 23:51] LABS: CLARITY,URINE CLEAR; COLOR,URINE YELLOW; GLUCOSE, URINE (UA) NEGATIVE (NEGATIVE); PH,URINE 5.5 (5-9); PROTEIN,URINE NEGATIVE (NEGATIVE)
[2023-05-31 23:52] LABS: BACTERIA,URINE NEGATIVE /HPF; BILIRUBIN,URINE NEGATIVE (NEGATIVE); KETONES,URINE TRACE (NEGATIVE); LEUKOCYTE ESTERASE ,URINE NEGATIVE (NEGATIVE); NITRITE,URINE NEGATIVE (NEGATIVE)
[2023-06-01] MEDS ORDERED: POTA10CA84 PO (00:04)
[2023-06-01] MEDS ORDERED: FURO-125 PO (00:04)
[2023-06-01 00:11] VITALS: BP 119/92
== END 2023-06-01 00:20 | disposition home or self-care (01) ==
LOC: EDUNIT# 22:54 → ER 23:01
DX: R60.0 Localized edema (principal); I10 Essential (primary) hypertension; Z79.899 Other long term (current) drug therapy
CPT/HCPCS: 36415; 51702; 80053; 81000; 83880; 85025